=== PATIENT | female | born 1935 | race Hispanic/Latino ===

== ENCOUNTER 2018-02-24 05:24 | Inpatient (IN) | payer MEDICARE ==
--- NOTE | 2018-02-24 05:48 | C.PDOC ---
History Of Present Illness Patient presents to the ER after patient fell while her daughter was changing her diaper. Patient states she slid onto the floor but notes she fell a few days ago at home and sustained numerous bruises. Denies LOC or headache. <Jaren Nation - Last Filed: 02/24/18 06:35> - HPI History Per: Patient History/Exam Limitations: no limitations Onset/Duration Of Symptoms: Hrs Injury Occurred (Timing): Just Before Arrival Location Of Injury: Right: Face, Thigh, Left: Arm, Buttock, Shoulder, Thigh Severity: Moderate Pain Scale Rating Of: 4 Recent travel outside of the [place]: No Additional History Per: Patient, Family - Fall Fall:Prior To Injury: Other (Slid onto floor) <Jaren Nation - Last Filed: 02/24/18 06:35> <Bryant Moran M - Last Filed: 02/24/18 09:48> - HPI Time Seen by Provider: 02/24/18 05:48 Chief Complaint (Nursing): Trauma Past Medical History Reviewed: Historical Data, Nursing Documentation, Vital Signs Vital Signs: Last Vital Signs Temp 97.9 F 02/24/18 05:36 Pulse 97 H 02/24/18 05:36 Resp 18 02/24/18 05:36 BP 134/93 H 02/24/18 05:36 Pulse Ox 86 L 02/24/18 05:36 Family History: States: No Known Family Hx - Social History Hx Alcohol Use: No Hx Substance Use: No - Immunization History Hx Tetanus Toxoid Vaccination: No Hx Influenza Vaccination: No Hx Pneumococcal Vaccination: No <Jaren Nation - Last Filed: 02/24/18 06:35> Vital Signs: Last Vital Signs Temp 97.9 F 02/24/18 05:36 Pulse 96 H 02/24/18 08:13 Resp 24 02/24/18 08:16 BP 138/98 H 02/24/18 08:13 Pulse Ox 98 02/24/18 08:16 <Bryant Moran M - Last Filed: 02/24/18 09:48> Review Of Systems Constitutional: Negative for: Fever, Chills Cardiovascular: Negative for: Chest Pain, Palpitations Respiratory: Negative for: Cough, Shortness of Breath Gastrointestinal: Negative for: Nausea, Vomiting Skin: Positive for: Bruising Neurological: Negative for: Weakness, Numbness <ChapisJaren - Last Filed: 02/24/18 06:35> Physical Exam - Physical Exam Appears: Non-toxic Skin: Warm, Dry, Ecchymosis (Healing over right eye, left shoulder, left buttock, skin break down under left breast) Head: Normacephalic Eye(s): bilateral: Normal Inspection Ear(s): Bilateral: Normal Nose: No Discharge Oral Mucosa: Moist Neck: Trachea Midline, No Midline Cervical Tenderness, No Paracervical Tenderness, Supple Chest: Symmetrical, No Tenderness Cardiovascular: Rhythm Regular Respiratory: Decreased Breath Sounds (mild), No Rales, Rhonchi, No Wheezing Gastrointestinal/Abdominal: Soft, No Tenderness Back: CVA Tenderness, Other Extremity: Pedal Edema (Bilateral), No Deformity, Other (Rashes over bilateral thigh) Extremity: Bilateral: Normal ROM Pulses: Left Dorsalis Pedis: Normal, Right Dorsalis Pedis: Normal Neurological/Psych: Oriented x3 Gait: Unable To Assess <ChapisJaren - Last Filed: 02/24/18 06:35> ED Course And Treatment - Laboratory Results Result Diagrams: 02/24/18 06:16 O2 Sat by Pulse Oximetry: 86 Progress Note: CT cervical spine, CT head, CT orbits/facials, EKG, blood work, and urinalysis ordered. <ChapisJaren - Last Filed: 02/24/18 06:35> - Laboratory Results Result Diagrams: 02/24/18 06:16 02/24/18 06:16 <Bryant Moran M - Last Filed: 02/24/18 09:48> Disposition Counseled Patient/Family Regarding: Studies Performed, Diagnosis - Disposition Disposition Time: 05:48 - POA Present On Arrival: Falls Or Trauma <Jaren Nation - Last Filed: 02/24/18 06:35> Discussed With : Robyn Brewer Doctor Will See Patient In The: Hospital - Disposition Disposition Time: 09:47 <Bryant Moran - Last Filed: 02/24/18 09:48> - Disposition Referrals: Ronald Shah DPM [Primary Care Provider] - Disposition: HOSPITALIZED Condition: FAIR Forms: [email or web address] (Bengali) - Clinical Impression Clinical Impression: Fall, Shoulder dislocation, Vertebral fracture, CHF (congestive heart failure) Critical Care Time - Scribe Statement The provider has reviewed the documentation as recorded by the Scribe Gagandeep White All medical record entries made by the Scribe were at my direction and personally dictated by me. I have reviewed the chart and agree that the record accurately reflects my personal performance of the history, physical exam, medic al decision making, and the department course for this patient. I have also personally directed, reviewed, and agree with the discharge instructions and disposition. <Jaren Nation - Last Filed: 02/24/18 06:35> Physician Patient Turnover Patient Signed Over To: Bryant oMran Handoff Comments: pending ct , labs, and dispo <Jaren Nation - Last Filed: 02/24/18 06:35> Addendum Addendum: 02/24/18 09:45 Received patient in s/o pending imaging. attempted to relocate left shoulder with success however shoulder isn't stable and dislocation recurs. consult Dr. Zoila Singleton for shoulder and vertebral fx. Dr. Wandy Brewer notified julio c and latia given patient admitted to telemetry <Bryant Moran - Last Filed: 02/24/18 09:48>
[2018-02-24 06:28] LABS: BASO % 0.3 % (0.0-2.0); EOS % 0.1 % (0.0-4.0); LYMPH # 1.2 K/uL (1.0-4.3); LYMPH % 9.4 % (20.0-40.0); MEAN CELL VOLUME 77.1 fL (81.0-99.0); MEAN CORPUSCULAR HEMOGLOBIN 23.2 pg (27.0-31.0); MEAN CORPUSCULAR HGB CONC 30.1 g/dL (33.0-37.0); MEAN PLATELET VOLUME 8.8 fL (7.2-11.7); MONO # 0.8 K/uL (0.0-0.8); MONO % 5.9 % (0.0-10.0); NEUT % 84.3 % (50.0-75.0); PLATELET COUNT 224 K/uL (130-400); RBC 5.19 Mil/uL (3.80-5.20); RED CELL DISTRIBUTION WIDTH 24.4 % (11.5-14.5); WHITE BLOOD COUNT 13.1 K/uL (4.8-10.8)
[2018-02-24 06:29] LABS: ALBUMIN 2.9 g/dL (3.5-5.0); ALT/SGPT 18 U/L (9-52); AST/SGOT 47 U/L (14-36); BLOOD UREA NITROGEN 32 mg/dL (7-17); CALCIUM 8.5 mg/dl (8.6-10.4); GFR NON-AFRICAN AMERICAN > 60
[2018-02-24] MEDS ORDERED: Iodixanol 320 MG/ML 100 ML BOTTLE IV ONE (06:55)
[2018-02-24 07:25] LABS: INR 1.5; PROTHROMBIN TIME 16.5 SECONDS (9.7-12.2)
[2018-02-24 08:22] LABS: SQUAMOUS EPITHIAL 2 /hpf (0-5); URINE BACTERIA MANY (<OCC); URINE BILIRUBIN NEGATIVE (NEGATIVE); URINE BLOOD 2+ (NEGATIVE); URINE CLARITY Clear (Clear); URINE COLOR Amber (YELLOW); URINE GLUCOSE (UA) NORMAL (Normal); URINE LEUKOCYTE ESTERASE NEG Leu/uL (Negative); URINE PROTEIN 2+ mg/dL (NEGATIVE)
[2018-02-24 08:42] LABS: B-TYPE NATRIURETIC PEPTIDE 4450 pg/mL (0-900)
[2018-02-24 09:04] LABS: ANISOCYTOSIS MODERATE; LYMPHOCYTE 4 % (20-40); MONOCYTE 1 % (0-10); NEUTROPHIL 95 % (50-75); NUCLEATED RED BLOOD CELL 1 % (0-0); PLATELET ESTIMATE NORMAL (NORMAL); TOTAL CELLS COUNTED 100
[2018-02-24 09:05] LABS: HYPOCHROMIC SLIGHT; OVALOCYTES SLIGHT; POLYCHROMIC SLIGHT
[2018-02-24 09:06] LABS: TARGET CELLS SLIGHT
[2018-02-24] MEDS ORDERED: Potassium Chloride 20 mEq ER Tab PO STA (09:25)
[2018-02-24] MEDS ORDERED: Potassium Chloride 20 mEq ER Tab PO ONE (09:36)
--- NOTE | 2018-02-24 10:47 | CT ---
Date of service: 02/24/2018 PROCEDURE: CT Chest, Abdomen and Pelvis with intravenous contrast HISTORY: fall COMPARISON: None available. TECHNIQUE: Helical CT of the chest, abdomen and pelvis was performed following dynamic intravenous contrast administration. Oral contrast was not administered as per request. IV dose administered: Omnipaque 300, 100 Radiation dose: Total exam DLP = 185.18 mGy-cm. This CT exam was performed using one or more of the following dose reduction techniques: Automated exposure control, adjustment of the mA and/or kV according to patient size, and/or use of iterative reconstruction technique. FINDINGS: CT CHEST WITH CONTRAST: LUNGS: There is relatively extensive compression atelectasis affecting the right lower and left upper lobes with the left lower lobe grossly affected. Limited compression atelectasis affects the right upper lobe. No masses appreciated within aerated lung with central airways grossly appearing clear. MEDIASTINUM: There is mild dilatation of the ascending thoracic aorta terminating at the mid arch. Measures 4.1 cm at the ascending segment without atherosclerotic plaque associated grossly. Normal appearing pulmonary arterial trunk. No aortic dissection. Pulmonary vascular congestion in question however. Extensive coronary artery atherosclerosis appreciated, calcified and there is cardiomegaly but no pericardial effusion identified. Thoracic inlet appears unremarkable. LYMPH NODES: Unremarkable. PLEURA: Large bilateral pleural effusions are identified, left greater than right. No pneumothorax bilaterally. BONES: T7 fracture, nondisplaced. Extensive multilevel spondylosis include diffuse syndesmotic fights suspicious for possible DISH or ankylosing spondylitis. Incidental anterior inferior dislocation of the left humeral head relative to glenoid process of the scapula. No left shoulder fracture appreciable however. OTHER FINDINGS: Mild anasarca suggested. CT ABDOMEN AND PELVIS: LIVER: Unremarkable. No gross lesion or ductal dilatation. GALLBLADDER AND BILE DUCTS: Extensive cholelithiasis is identified within a distended gallbladder. No obvious pattern of acute cholecystitis nevertheless. PANCREAS: There is a 1.2 cm cystic lesion abutting the distal pancreatic duct or there is dilatation of the distal pancreatic duct. SPLEEN: No posttraumatic changes.. ADRENALS: Unremarkable. No mass. KIDNEYS AND URETERS: No obstructive uropathy or renal fracture appreciable. Nonspecific streaky perinephric changes are identified bilaterally. VASCULATURE: Nonaneurysmal abdominal aortic calcific atherosclerotic changes are identified. 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 BOWEL: Sigmoid diverticulosis without diverticulitis.. No obstruction. No gross mural thickening. APPENDIX: Normal appendix. PERITONEUM: Mild umbilical hernia containing only fat. No ascites. No free intrarenal gas or abscess appreciable. No hemoperitoneum. LYMPH NODES: Unremarkable. No enlarged lymph nodes. BLADDER: Unremarkable. REPRODUCTIVE: 1.5 cm left adnexal cyst BONES: No acute fracture. OTHER FINDINGS: None. IMPRESSION: 1. T7 thoracic vertebral body fracture without displacement. No additional fracture throughout the thorax. 2. Anterior inferior dislocation left humeral head relative to the glenoid process at the left shoulder. 3. Extensive bilateral pleural effusions and compression atelectasis at the bilateral lungs with well aerated lung appearing normal. No central airway lesion appreciated grossly. 4. Dilatation of the ascending thoracic aorta up to 4.1 cm. 5. No definitive posttraumatic changes in the abdomen and pelvis. 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 7. Extensive cholelithiasis without pattern of acute cholecystitis. 8. 1.2 cm cyst or pancreatic duct dilatation at the head of the pancreas. Consider follow-up MRCP/abdomen MRI with and without contrast for added characterization. 9. Additional lesser changes as discussed above. Concordant preliminary report from [facility], 02/24/2018.
--- NOTE | 2018-02-24 10:59 | CT ---
Date of service: 02/24/2018 PROCEDURE: CT Cervical Spine without contrast HISTORY: fall COMPARISON: None available. TECHNIQUE: Axial computed tomography images were obtained of the cervical spine without the use of intravenous contrast. Coronal and sagittal reformatted images were created and reviewed. Radiation dose: Total exam DLP = 1444.08 mGy-cm. This CT exam was performed using one or more of the following dose reduction techniques: Automated exposure control, adjustment of the mA and/or kV according to patient size, and/or use of iterative reconstruction technique. FINDINGS: VERTEBRAE: No fracture. Normal alignment. No destructive bony lesion. DISCS/SPINAL CANAL/NEURAL FORAMINA: There is extensive multilevel facet joint degenerative arthropathy as well as facet joint degeneration. No destructive bony lesion is appreciated focally. At C2-3, there is no stenosis. At C3-4, extensive facet and uncovertebral joint degenerative arthropathy is encountered with an irregular disc osteophyte complex which is left paracentral/lateral in location. This results in mild left nyla canal stenosis and severe bilateral neural foraminal stenosis. At C4-5, left lateral recess is encroached by osteophytes without generalized central canal stenosis present. Severe left and moderate to severe right degenerative neural foraminal stenoses are identified. At C5-6, a circumferential disc osteophyte complex identified resulting in mild central stenosis with severe bilateral degenerative neural foraminal stenoses identified. At C6-7, a disc osteophyte complex results in borderline central stenosis with severe left and moderate to severe right neural foraminal stenosis appreciated on degenerative basis. C7-T1 appears unremarkable. No gross disc herniation appreciable throughout. PARASPINAL SOFT TISSUES: Unremarkable. OTHER FINDINGS: None. IMPRESSION: 1. No fracture or spondylolisthesis is encountered throughout the cervical spine. 2. No gross disc herniation appreciable however MRI is more sensitive and can be utilized for added characterization. 3. Limited multilevel cyst cervical spondylosis resulting in at most mild left nyla canal stenosis at C3-4 and borderline C6-7 central stenosis. Concordant preliminary report from [facility], 02/24/2018. 4. Advanced multilevel facet and uncovertebral joint arthropathy resulting in nearly diffuse high-grade neural foraminal stenoses from C3-4 to C6-7 as discussed above.
--- NOTE | 2018-02-24 11:14 | CT ---
Date of service: 02/24/2018 PROCEDURE: CT MAXILLOFACIAL BONES WITHOUT CONTRAST HISTORY: fall COMPARISON: None available. TECHNIQUE: Contiguous axial CT images of the maxillofacial bones were obtained. Coronal and sagittal reformats were generated. Radiation dose: Total exam DLP = 854.56 mGy-cm. This CT exam was performed using one or more of the following dose reduction techniques: Automated exposure control, adjustment of the mA and/or kV according to patient size, and/or use of iterative reconstruction technique. FINDINGS: NASAL BONES: Unremarkable. ORBITS: Unremarkable. PARANASAL SINUSES/ MASTOIDS: Small bilateral maxillary sinus polyps or cysts identified. MAXILLA: Unremarkable. MANDIBLE/ TEMPOROMANDIBULAR JOINTS: Unremarkable. SKULL BASE: Unremarkable. TEMPORAL BONES: Middle ears and mastoid grossly unremarkable. OTHER FINDINGS: Limited right frontal scalp edema/hematoma identified. No frontal bone fracture associated. IMPRESSION: Limited right frontal scalp edema/hematoma. No additional posttraumatic findings. Concordant preliminary report from [facility], 02/24/2018.
--- NOTE | 2018-02-24 11:17 | CT ---
Date of service: 02/24/2018 PROCEDURE: CT HEAD WITHOUT CONTRAST. HISTORY: R/O Bleed COMPARISON: None available. TECHNIQUE: Axial computed tomography images were obtained through the head/brain without intravenous contrast. Radiation dose: Total exam DLP = 1352.60 mGy-cm. This CT exam was performed using one or more of the following dose reduction techniques: Automated exposure control, adjustment of the mA and/or kV according to patient size, and/or use of iterative reconstruction technique. FINDINGS: HEMORRHAGE: No intracranial hemorrhage. BRAIN: An indeterminate lucency body of the right caudate lobe. Potential chronic lacune. Otherwise, good corticomedullary differentiation is seen. Proportional, diffuse expansion of the ventriculosulcal and cisternal spaces is appreciated with white matter lucency compatible with diffuse cerebral atrophy and chronic microangiopathy. No suspicious extra-axial fluid collection is identified and the midline brain anatomy appears grossly nonfocal as imaged. There is no mass effect throughout. VENTRICLES: Unremarkable. No hydrocephalus. CALVARIUM: No destructive bony lesion or displaced fracture identified including through the skullbase. Right frontal scalp edema/hematoma. PARANASAL SINUSES: Bilateral maxillary sinus polyps or cysts. MASTOID AIR CELLS: Unremarkable as visualized. No inflammatory changes. OTHER FINDINGS: None. IMPRESSION: 1. No intra hemorrhage or displaced fracture appreciable. 2. Lucency right caudate body potentially reflecting a chronic lacune. Age-appropriate age related neuro degenerative findings are appreciated throughout the brain otherwise. 3. Right frontal scalp edema/hematoma. Concordant preliminary report from [facility], 02/24/2018.
--- NOTE | 2018-02-24 13:26 | CP.PCM.HP ---
History of Present Illness - History of Present Illness History of Present Illness: pt brought to ed after fall at home weeke dificulty ambulating recurentfalls Present on Admission - Present on Admission Any Indicators Present on Admission: No Review of Systems - Review of Systems Systems not reviewed;Unavailable: Acuity of Condition - Constitutional Constitutional: Fatigue, Frequent Falls - EENT Eyes: As Per HPI Ears: As Per HPI Nose/Mouth/Throat: As Per HPI - Breasts Breasts: As Per HPI - Cardiovascular Cardiovascular: Leg Edema, Pedal Edema - Respiratory Respiratory: Dyspnea on Exertion - Gastrointestinal Gastrointestinal: As Per HPI - Genitourinary Genitourinary: As Per HPI - Reproductive: Female Reproductive:Female: As Per HPI - Menstruation Menstruation: As Per HPI - Musculoskeletal Musculoskeletal: Arthralgias, Back Pain Additional comments: shoulder dislocation - Integumentary Integumentary: Skin Ulcer Additional comments: multiple bruses - Neurological Neurological: As Per HPI - Psychiatric Psychiatric: As Per HPI - Endocrine Endocrine: Fatigue - Hematologic/Lymphatic Hematologic: As Per HPI Past Patient History - Infectious Disease Hx of Infectious Diseases: None - Past Social History Smoking Status: Never Smoked - MUSCULOSKELETAL/RHEUMATOLOGICAL Hx Falls: Yes - PSYCHIATRIC Hx Substance Use: No - SURGICAL HISTORY Hx Surgeries: No - ANESTHESIA Hx Anesthesia: Yes Meds Allergies/Adverse Reactions: Allergies Allergy/AdvReac Type Severity Reaction Status Date / Time warfarin [From Coumadin] Allergy Verified 02/24/18 05:44 Physical Exam - Constitutional Appears: In Acute Distress - Head Exam Head Exam: ATRAUMATIC - Eye Exam Eye Exam: Normal appearance Pupil Exam: NORMAL ACCOMODATION - ENT Exam ENT Exam: Mucous Membranes Moist - Neck Exam Neck exam: Positive for: Full Rom - Respiratory Exam Respiratory Exam: Decreased Breath Sounds - Cardiovascular Exam Cardiovascular Exam: +S1, +S2, +S4 - GI/Abdominal Exam GI & Abdominal Exam: Normal Bowel Sounds - Rectal Exam Rectal Exam: Deferred - Extremities Exam Additional comments: shoulder dislocation - Back Exam Back exam: tenderness - Neurological Exam Neurological exam: Alert - Psychiatric Exam Psychiatric exam: Flat Affect - Skin Skin Exam: Normal Color Results - Vital Signs Recent Vital Signs: Last Vital Signs Temp 97.9 F 02/24/18 05:36 Pulse 94 H 02/24/18 11:40 Resp 24 02/24/18 11:40 BP 93/63 L 02/24/18 11:40 Pulse Ox 92 L 11/21/18 11:40 - Labs Result Diagrams: 02/24/18 06:16 02/24/18 06:16 Labs: Laboratory Results - last 24 hr 02/24/18 02/24/18 02/24/18 05:32 06:16 06:16 WBC 13.1 H RBC 5.19 Hgb 12.0 Hct 40.0 MCV 77.1 L MCH 23.2 L MCHC 30.1 L RDW 24.4 H Plt Count 224 MPV 8.8 Neut % (Auto) 84.3 H Lymph % (Auto) 9.4 L Gr[place]gs % (Auto) 5.9 Eos % (Auto) 0.1 Baso % (Auto) 0.3 Neut # (Auto) 11.0 H Lymph # (Auto) 1.2 [place] # (Auto) 0.8 Eos # (Auto) 0.0 Baso # (Auto) 0.0 Neutrophils % (Manual) 95 H Lymphocytes % (Manual) 4 L Monocytes % (Manual) 1 Nucleated RBC % 1 H Platelet Estimate Normal Polychromasia Slight Hypochromasia (manual) Slight Anisocytosis (manual) Moderate Target Cells Slight Ovalocytes Slight PT 16.5 H INR 1.5 APTT 33 Sodium Potassium Chloride Carbon Dioxide Anion Gap BUN Creatinine Est GFR ( Amer) Est GFR (Non-Af Amer) POC Glucose (mg/dL) 117 H Random Glucose Calcium Total Bilirubin AST ALT Alkaline Phosphatase Total Creatine Kinase Troponin I NT-Pro-B Natriuret Pep Total Protein Albumin Globulin Albumin/Globulin Ratio TSH 3rd Generation Urine Color Urine Clarity Urine pH Ur Specific [place] Urine Protein Urine Glucose (UA) Urine Ketones Urine Blood Urine Nitrate Urine Bilirubin Urine Urobilinogen Ur Leukocyte Esterase Urine WBC (Auto) Urine RBC (Auto) Ur Squamous Epith Cells Urine Bacteria 02/24/18 02/24/18 06:16 08:11 WBC RBC Hgb Hct MCV MCH MCHC RDW Plt Count MPV Neut % (Auto) Lymph % (Auto) [place] % (Auto) Eos % (Auto) Baso % (Auto) Neut # (Auto) Lymph # (Auto) [place] # (Auto) Eos # (Auto) Baso # (Auto) Neutrophils % (Manual) Lymphocytes % (Manual) Monocytes % (Manual) Nucleated RBC % Platelet Estimate Polychromasia Hypochromasia (manual) Anisocytosis (manual) Target Cells Ovalocytes PT INR APTT Sodium 142 Potassium 3.1 L Chloride 103 Carbon Dioxide 30 Anion Gap 12 BUN 32 H Creatinine 0.8 Est GFR ( Amer) > 60 Est GFR (Non-Af Amer) > 60 POC Glucose (mg/dL) Random Glucose 120 H Calcium 8.5 L Total Bilirubin 2.8 H AST 47 H ALT 18 Alkaline Phosphatase 62 Total Creatine Kinase 486 H Troponin I 0.0200 NT-Pro-B Natriuret Pep 4450 H Total Protein 5.9 L Albumin 2.9 L Globulin 3.0 Albumin/Globulin Ratio 1.0 TSH 3rd Generation 2.58 Urine Color Bertha Urine Clarity Clear Urine pH 5.0 Ur Specific [place] 1.024 Urine Protein 2+ H Urine Glucose (UA) Normal Urine Ketones Negative Urine Blood 2+ H Urine Nitrate Negative Urine Bilirubin Negative Urine Urobilinogen 4.0 H Ur Leukocyte Esterase Neg Urine WBC (Auto) 1 Urine RBC (Auto) 1 Ur Squamous Epith Cells 2 Urine Bacteria Many H Assessment & Plan - Assessment and Plan (Free Text) Assessment: recurent falls shoulder dislocation chf obesity Plan: admit ortho consult cardiology cons - Date & Time Date: 02/24/18 Time: 13:32
[2018-02-24] MEDS ORDERED: Albuterol-Ipratrop 3 mg / 0.5 (3 ml) UD INH STA (17:31)
--- NOTE | 2018-02-24 18:48 | CP.PCM.CON ---
History of Present Illness - History of Present Illness History of Present Illness: Podiatry Progress Note for Dr. Shah 82F seen in ED with Dr. Shah for b/l venous stasis ulceration to LE. Patient fell at home prompting her visit to ED. She is accompanied by her daughter. She denies any new pedal complaints at this time and sees Dr. Shah regularly in his office. Denies any recent N/V/F/C/CP/SOB/D Review of Systems - Review of Systems All systems: reviewed and no additional remarkable complaints except Review of Systems: as per HPI Past Patient History - Infectious Disease Hx of Infectious Diseases: None - Past Social History Smoking Status: Never Smoked - MUSCULOSKELETAL/RHEUMATOLOGICAL Hx Falls: Yes - PSYCHIATRIC Hx Substance Use: No - SURGICAL HISTORY Hx Surgeries: No - ANESTHESIA Hx Anesthesia: Yes Meds Allergies/Adverse Reactions: Allergies Allergy/AdvReac Type Severity Reaction Status Date / Time warfarin [From Coumadin] Allergy Verified 02/24/18 05:44 - Medications Medications: Current Medications Acetaminophen (Tylenol 325mg Tab) 650 mg PO Q6 PRN PRN Reason: Pain, moderate (4-7) Albuterol/Ipratropium (Duoneb 3 Mg/0.5 Mg (3 Ml) Ud) 3 ml INH RQ6 KEV Furosemide (Lasix) 20 mg IVP DAILY KEV Pantoprazole Sodium (Protonix Ec Tab) 40 mg PO DAILY KEV Potassium Chloride (Klor-Con 10) 10 meq PO BRK KEV Physical Exam - Constitutional Appears: Non-toxic, In Acute Distress - Extremities Exam Additional comments: Dressings to b/l LE left intact - Neurological Exam Neurological exam: Alert, Oriented x3 - Psychiatric Exam Psychiatric exam: Agitated, Anxious Results - Vital Signs Recent Vital Signs: Last Vital Signs Temp 97.4 F L 02/24/18 16:00 Pulse 91 H 02/24/18 16:00 Resp 20 02/24/18 16:00 BP 106/78 02/24/18 16:00 Pulse Ox 94 L 02/24/18 16:00 - Labs Result Diagrams: 02/24/18 06:16 02/24/18 06:16 Labs: Laboratory Results - last 24 hr 02/24/18 02/24/18 02/24/18 05:32 06:16 06:16 WBC 13.1 H RBC 5.19 Hgb 12.0 Hct 40.0 MCV 77.1 L MCH 23.2 L MCHC 30.1 L RDW 24.4 H Plt Count 224 MPV 8.8 Neut % (Auto) 84.3 H Lymph % (Auto) 9.4 L [place] % (Auto) 5.9 Eos % (Auto) 0.1 Baso % (Auto) 0.3 Neut # (Auto) 11.0 H Lymph # (Auto) 1.2 [place] # (Auto) 0.8 Eos # (Auto) 0.0 Baso # (Auto) 0.0 Neutrophils % (Manual) 95 H Lymphocytes % (Manual) 4 L Monocytes % (Manual) 1 Nucleated RBC % 1 H Platelet Estimate Normal Polychromasia Slight Hypochromasia (manual) Slight Anisocytosis (manual) Moderate Target Cells Slight Ovalocytes Slight PT 16.5 H INR 1.5 APTT 33 Sodium Potassium Chloride Carbon Dioxide Anion Gap BUN Creatinine Est GFR ( Amer) Est GFR (Non-Af Amer) POC Glucose (mg/dL) 117 H Random Glucose Calcium Total Bilirubin AST ALT Alkaline Phosphatase Total Creatine Kinase Troponin I NT-Pro-B Natriuret Pep Total Protein Albumin Globulin Albumin/Globulin Ratio TSH 3rd Generation Urine Color Urine Clarity Urine pH Ur Specific [place] Urine Protein Urine Glucose (UA) Urine Ketones Urine Blood Urine Nitrate Urine Bilirubin Urine Urobilinogen Ur Leukocyte Esterase Urine WBC (Auto) Urine RBC (Auto) Ur Squamous Epith Cells Urine Bacteria 02/24/18 02/24/18 06:16 08:11 WBC RBC Hgb Hct MCV MCH MCHC RDW Plt Count MPV Neut % (Auto) Lymph % (Auto) [place] % (Auto) Eos % (Auto) Baso % (Auto) Neut # (Auto) Lymph # (Auto) [place] # (Auto) Eos # (Auto) Baso # (Auto) Neutrophils % (Manual) Lymphocytes % (Manual) Monocytes % (Manual) Nucleated RBC % Platelet Estimate Polychromasia Hypochromasia (manual) Anisocytosis (manual) Target Cells Ovalocytes PT INR APTT Sodium 142 Potassium 3.1 L Chloride 103 Carbon Dioxide 30 Anion Gap 12 BUN 32 H Creatinine 0.8 Est GFR ( Amer) > 60 Est GFR (Non-Af Amer) > 60 POC Glucose (mg/dL) Random Glucose 120 H Calcium 8.5 L Total Bilirubin 2.8 H AST 47 H ALT 18 Alkaline Phosphatase 62 Total Creatine Kinase 486 H Troponin I 0.0200 NT-Pro-B Natriuret Pep 4450 H Total Protein 5.9 L Albumin 2.9 L Globulin 3.0 Albumin/Globulin Ratio 1.0 TSH 3rd Generation 2.58 Urine Color Bertha Urine Clarity Clear Urine pH 5.0 Ur Specific [place] 1.024 Urine Protein 2+ H Urine Glucose (UA) Normal Urine Ketones Negative Urine Blood 2+ H Urine Nitrate Negative Urine Bilirubin Negative Urine Urobilinogen 4.0 H Ur Leukocyte Esterase Neg Urine WBC (Auto) 1 Urine RBC (Auto) 1 Ur Squamous Epith Cells 2 Urine Bacteria Many H Assessment & Plan - Assessment and Plan (Free Text) Assessment: 82F seen in ED with Dr. Shah for b/l venous stasis ulceration to LE Plan: Patient seen and evaluated with Dr. Shah WBC 13.1, Afebrile Dressings left C/D/I No plan for surgical intervention at this time Podiatry will continue to follow while patient in house - Date & Time Date: 02/24/18 Time: 18:50
--- NOTE | 2018-02-24 19:30 | CP.PCM.CON ---
History of Present Illness - History of Present Illness History of Present Illness: 82-year-old female presented to the ER after patient fell while her daughter was changing her diaper. Patient states she slid onto the floor but notes she fell a few days ago at home and sustained numerous bruises. patient found to have dislocated left shoulder. CAT scan of the chest consistent with bilateral pleural effusion. Patient being treated with Lasix. Unable to get more information from patient or chart review. Swelling of left arm with weeping noted. as per daughter her lower extremity swelling is chronic and she is being treated for that. Past Patient History - Infectious Disease Hx of Infectious Diseases: None - Past Social History Smoking Status: Never Smoked - MUSCULOSKELETAL/RHEUMATOLOGICAL Hx Falls: Yes - PSYCHIATRIC Hx Substance Use: No - SURGICAL HISTORY Hx Surgeries: No - ANESTHESIA Hx Anesthesia: Yes Meds Allergies/Adverse Reactions: Allergies Allergy/AdvReac Type Severity Reaction Status Date / Time warfarin [From Coumadin] Allergy Verified 02/24/18 05:44 - Medications Medications: Current Medications Acetaminophen (Tylenol 325mg Tab) 650 mg PO Q6 PRN PRN Reason: Pain, moderate (4-7) Albuterol/Ipratropium (Duoneb 3 Mg/0.5 Mg (3 Ml) Ud) 3 ml INH RQ6 KEV Furosemide (Lasix) 20 mg IVP DAILY KEV Pantoprazole Sodium (Protonix Ec Tab) 40 mg PO DAILY KEV Potassium Chloride (Klor-Con 10) 10 meq PO BRK KEV Physical Exam - Head Exam Head Exam: NORMOCEPHALIC - Neck Exam Neck exam: Positive for: Normal Inspection - Respiratory Exam Respiratory Exam: Decreased Breath Sounds - Cardiovascular Exam Cardiovascular Exam: REGULAR RHYTHM, Systolic Murmur - Extremities Exam Extremities exam: Positive for: pedal edema - Neurological Exam Neurological exam: Alert, Oriented x3 Results - Vital Signs Recent Vital Signs: Last Vital Signs Temp 97.4 F L 02/24/18 16:00 Pulse 91 H 02/24/18 16:00 Resp 20 02/24/18 16:00 BP 106/78 02/24/18 16:00 Pulse Ox 94 L 02/24/18 16:00 - Labs Result Diagrams: 02/26/18 06:23 02/26/18 06:22 Labs: Laboratory Results - last 24 hr 02/24/18 02/24/18 02/24/18 05:32 06:16 06:16 WBC 13.1 H RBC 5.19 Hgb 12.0 Hct 40.0 MCV 77.1 L MCH 23.2 L MCHC 30.1 L RDW 24.4 H Plt Count 224 MPV 8.8 Neut % (Auto) 84.3 H Lymph % (Auto) 9.4 L [place] % (Auto) 5.9 Eos % (Auto) 0.1 Baso % (Auto) 0.3 Neut # (Auto) 11.0 H Lymph # (Auto) 1.2 [place] # (Auto) 0.8 Eos # (Auto) 0.0 Baso # (Auto) 0.0 Neutrophils % (Manual) 95 H Lymphocytes % (Manual) 4 L Monocytes % (Manual) 1 Nucleated RBC % 1 H Platelet Estimate Normal Polychromasia Slight Hypochromasia (manual) Slight Anisocytosis (manual) Moderate Target Cells Slight Ovalocytes Slight PT 16.5 H INR 1.5 APTT 33 Sodium Potassium Chloride Carbon Dioxide Anion Gap BUN Creatinine Est GFR ( Amer) Est GFR (Non-Af Amer) POC Glucose (mg/dL) 117 H Random Glucose Calcium Total Bilirubin AST ALT Alkaline Phosphatase Total Creatine Kinase Troponin I NT-Pro-B Natriuret Pep Total Protein Albumin Globulin Albumin/Globulin Ratio TSH 3rd Generation Urine Color Urine Clarity Urine pH Ur Specific [place] Urine Protein Urine Glucose (UA) Urine Ketones Urine Blood Urine Nitrate Urine Bilirubin Urine Urobilinogen Ur Leukocyte Esterase Urine WBC (Auto) Urine RBC (Auto) Ur Squamous Epith Cells Urine Bacteria 02/24/18 02/24/18 06:16 08:11 WBC RBC Hgb Hct MCV MCH MCHC RDW Plt Count MPV Neut % (Auto) Lymph % (Auto) [place] % (Auto) Eos % (Auto) Baso % (Auto) Neut # (Auto) Lymph # (Auto) [place] # (Auto) Eos # (Auto) Baso # (Auto) Neutrophils % (Manual) Lymphocytes % (Manual) Monocytes % (Manual) Nucleated RBC % Platelet Estimate Polychromasia Hypochromasia (manual) Anisocytosis (manual) Target Cells Ovalocytes PT INR APTT Sodium 142 Potassium 3.1 L Chloride 103 Carbon Dioxide 30 Anion Gap 12 BUN 32 H Creatinine 0.8 Est GFR ( Amer) > 60 Est GFR (Non-Af Amer) > 60 POC Glucose (mg/dL) Random Glucose 120 H Calcium 8.5 L Total Bilirubin 2.8 H AST 47 H ALT 18 Alkaline Phosphatase 62 Total Creatine Kinase 486 H Troponin I 0.0200 NT-Pro-B Natriuret Pep 4450 H Total Protein 5.9 L Albumin 2.9 L Globulin 3.0 Albumin/Globulin Ratio 1.0 TSH 3rd Generation 2.58 Urine Color Bertha Urine Clarity Clear Urine pH 5.0 Ur Specific [place] 1.024 Urine Protein 2+ H Urine Glucose (UA) Normal Urine Ketones Negative Urine Blood 2+ H Urine Nitrate Negative Urine Bilirubin Negative Urine Urobilinogen 4.0 H Ur Leukocyte Esterase Neg Urine WBC (Auto) 1 Urine RBC (Auto) 1 Ur Squamous Epith Cells 2 Urine Bacteria Many H Assessment & Plan (1) CHF (congestive heart failure) Assessment and Plan: Diuresis. CXR. Correct electrolyte abnormalities. Keep K>4 and Mg>2. Fluid restriction to 1 l/day. Echocardogram. Discussed with family. Status: Acute
[2018-02-24] MEDS: Albuterol-Ipratrop 3 mg / 0.5 (3 ml) UD INH SCH (19:31)
[2018-02-24] MEDS: Potassium Chloride 10 mEq ER Tab PO SCH (21:43)
[2018-02-24] MEDS ORDERED: Pneumococcal 23-Valent Vaccine IM ONE (22:54)
--- NOTE | 2018-02-24 22:56 | CARD ---
APPROVED REPORT Date of service: 02/24/2018 EXAM: Two-dimensional and M-mode echocardiogram with Doppler and color Doppler. Other Information Technically limited study due to body habitus. INDICATION Dyspnea Syncope Congestive Heart Failure 2D DIMENSIONS IVSd1.3 (0.7-1.1cm)Aortic Root (2D)3.6 (2.0-3.7cm) LVDd4.2 (3.9-5.9cm)PWd1.6 (0.7-1.1cm) LVDs3.2 (2.5-4.0cm)FS (%) 23.2 % LVEF (%)50.0 (>50%)LVEF (Park's)50 % M-Mode DIMENSIONS RVDd2.76 (2.1-3.2cm)Left Atrium (MM)3.48 (2.5-4.0cm) IVSd0.82 (0.7-1.1cm)Aortic Root3.16 (2.2-3.7cm) LVDd5.28 (4.0-5.6cm)Aortic Cusp Exc.2.03 (1.5-2.0cm) PWd1.03 (0.7-1.1cm)FS (%) 30 % LVDs3.71 (2.0-3.8cm)TAPSE13.19 cm LVEF (%)56 (>50%) Mitral Valve MV E Sieahnfp18.8cm/sE/A ratio0.0 TDI Lateral E' Peak V12.61cm/sMedial E' Peak V5.77cm/sE/Lateral E'5.6 E/Medial E'12.3 Tricuspid Valve TR Peak [id number]/sTR Peak [id number] LEFT VENTRICLE The left ventricle is normal size. There is mild to moderate concentric left ventricular hypertrophy. The left ventricular function is normal. The left ventricular ejection fraction is within the normal range. There is normal LV segmental wall motion. Transmitral Doppler flow pattern is abnormal. RIGHT VENTRICLE The right ventricle is normal size. ATRIA The left atrium size is normal. The right atrium is mildly dilated. AORTIC VALVE The aortic valve is calcified but opens well. MITRAL VALVE Mitral regurgitation is trace to mild. TRICUSPID VALVE There is moderate to severe tricuspid regurgitation. <Conclusion> Technically limited and difficult study. Normal LV systolic function. Diastolic dysfunction. Calcified Aortic valve. Mild MR. Moderate to severe TR.
[2018-02-25] MEDS: Albuterol-Ipratrop 3 mg / 0.5 (3 ml) UD INH SCH ×4 (02:30→20:34)
[2018-02-25] MEDS ORDERED: Potassium Chloride 10 mEq ER Tab PO SCH (08:00)
[2018-02-25] MEDS ORDERED: Pantoprazole 40 mg EC Tab PO SCH (10:00)
[2018-02-25] MEDS: Potassium Chloride 10 mEq ER Tab PO SCH ×2 (10:00→17:04)
--- NOTE | 2018-02-25 10:02 | CP.PCM.CON ---
History of Present Illness - History of Present Illness History of Present Illness: Reason for consultation: bilateral pleural effusion [id number] female presented to the ER after patient fell while her daughter was changing her diaper. Patient states she slid onto the floor but notes she fell a few days ago at home and sustained numerous bruises. patient found to have dislocated left shoulder. CAT scan of the chest consistent with bilateral pleural effusion. Patient being treated with Lasix. Unable to get more information from patient or chart review. Swelling of left arm with weeping noted Review of Systems - Review of Systems Systems not reviewed;Unavailable: Dementia Past Patient History - Infectious Disease Hx of Infectious Diseases: None - Past Social History Smoking Status: Never Smoked - CARDIAC Hx Congestive Heart Failure: Yes - NEUROLOGICAL Hx Dementia: Yes - ENDOCRINE/METABOLIC Hx Endocrine Disorders: No - HEMATOLOGICAL/ONCOLOGICAL Hx Blood Disorders: No - INTEGUMENTARY Other/Comment: weeping edema, on bilateral lower ext - MUSCULOSKELETAL/RHEUMATOLOGICAL Hx Falls: Yes - GASTROINTESTINAL Hx Gastrointestinal Disorders: No - GENITOURINARY/GYNECOLOGICAL Hx Genitourinary Disorders: No - PSYCHIATRIC Hx Substance Use: No - SURGICAL HISTORY Hx Surgeries: No - ANESTHESIA Hx Anesthesia: Yes Meds Allergies/Adverse Reactions: Allergies Allergy/AdvReac Type Severity Reaction Status Date / Time warfarin [From Coumadin] Allergy Verified 02/24/18 05:44 - Medications Medications: Current Medications Acetaminophen (Tylenol 325mg Tab) 650 mg PO Q6 PRN PRN Reason: Pain, moderate (4-7) Albuterol/Ipratropium (Duoneb 3 Mg/0.5 Mg (3 Ml) Ud) 3 ml INH RQ6 [facility] Last Admin: 02/25/18 07:44 Dose: 3 ml Furosemide (Lasix) 40 mg PO BID [facility] Last Admin: 02/24/18 21:42 Dose: 40 mg Pantoprazole Sodium (Protonix Ec Tab) 40 mg PO DAILY [facility] Pneumococcal Polyvalent Vaccine (Pneumovax 23 Vaccine) 0.5 ml IM .ONCE ONE Stop: 02/26/18 10:01 Potassium Chloride (Klor-Con 10) 10 meq PO BID [facility] Last Admin: 02/24/18 21:43 Dose: 10 meq Physical Exam - Head Exam Head Exam: ATRAUMATIC, NORMOCEPHALIC - Neck Exam Neck exam: Positive for: Normal Inspection - Respiratory Exam Respiratory Exam: Decreased Breath Sounds - Cardiovascular Exam Cardiovascular Exam: REGULAR RHYTHM - GI/Abdominal Exam GI & Abdominal Exam: Normal Bowel Sounds - Extremities Exam Extremities exam: Positive for: pedal edema Results - Vital Signs Recent Vital Signs: Last Vital Signs Temp 98.2 F 02/24/18 23:25 Pulse 94 H 02/24/18 23:25 Resp 20 02/24/18 23:25 BP 113/73 02/24/18 23:25 Pulse Ox 97 02/24/18 23:25 - Labs Result Diagrams: 02/24/18 06:16 02/24/18 06:16 Assessment & Plan (1) Pleural effusion Status: Acute Comment: bilateral equal pleural effusion secondary to CHF/hypo-albuminemia. Continue Lasix. Echocardiogram. ABG. BiPAP if needed
[2018-02-25] MEDS ORDERED: Albuterol-Ipratrop 3 mg / 0.5 (3 ml) UD INH STA (10:11)
[2018-02-25] MEDS ORDERED: MethylPREDNISolone 40 mg Vial IVP STA (10:14)
--- NOTE | 2018-02-25 10:26 | PCM.RRT ---
<Yonatan Mccloud M - Last Filed: 02/25/18 17:50> FLOOR INSPECTOR Nurses Assessment - Situation Date: 02/25/18 Time FLOOR INSPECTOR was called: 10:00 FLOOR INSPECTOR Responder Arrival Time:: 10:01 FLOOR INSPECTOR Location:: T Med/Surg FLOOR INSPECTOR Reason for Call: Respiratory Distress - Neurological Status (Select all that apply): Alert, Verbal - Constitutional Appears: In Acute Distress - Head Head Exam: NORMAL INSPECTION - Respiratory Exam Respiratory Exam: Accessory Muscle Use, Decreased Breath Sounds, Rales - Cardiovascular Exam Cardiovascular Exam: +S1, +S2 - GI/Abdominal Exam GI & Abdominal Exam: Soft, Normal Bowel Sounds - Neurological Exam Neurological Exam: Alert, Awake - Extremities Exam Extremities Exam: Pedal Edema, Tenderness Plan - Assessment of Findings&Treatment Plan FLOOR INSPECTOR called at 10:00 AM. 82 F w/ PMhx of CHF presented to ED s/p fall. FLOOR INSPECTOR called for respiratory distress. Upon arrival patient was laying in bed in acute distress. Vitals: 143/91 HR 147 Temp 100.6 RR 30 O2 Sat 98% on NRB Review patient chart. Based on hx and previous xray, ordered stat xray, CBC, CMP, BNP, REJI, ABG, blood cultures, urine cultures, urineanaylsis. Lactic came back as 4.4, Cxr revealed pulmonary congestion, pleural effusion, w/ previous blood work elevated WBC w/ left shift. Code Sepsis called 1 X 60 mg lasix given Solumedrol 40mg IVP given Duonebs given Placed on Bipap 12/6 Tylenol 650 Suppository Vancomycin 1gm X1 Zosyn 3.375gm X1 given Repeat vitals 133/92 HR 100 temp 100 O2 Sat 95 on NRB Per daughter at bedside, she was power surgical services coordinator, she requested X1 trial of intubation if needed ICU consult placed ICU evaluded, patient need intubation, and thoracentesis Bumex 2mg IVP given Patient transferred to ICU 16 Patient intubated Repeat lactic 1.5. Primary informed of FLOOR INSPECTOR. <Justina Weber V - Last Filed: 02/28/18 21:43> FLOOR INSPECTOR Nurses Assessment - Vital Signs Vital Signs: Rapid Response Vital Sign Blood Pressure 143/91 Pulse Rate 147 Respiratory Rate 30 Temperature 100.6 F Oxygen Saturation 98 - Vital Signs at end of FLOOR INSPECTOR Vital Signs at end of FLOOR INSPECTOR: Rapid Response End Vital Sign Blood Pressure 91/62 Pulse Rate 97 Respiratory Rate 20 Temperature 99 F O2 Sat by Pulse Oximetry 98 Attending/Attestation - Attestation I have personally seen and examined this patient.: Yes I have fully participated in the care of the patient.: Yes I have reviewed all pertinent clinical information, including history, physical exam and plan: Yes Notes (Text): This is late computer entry for 02/24/18. Brief hospitalist note. Patient with history of hypertension (diet controlled), arthritis, has not seen PMD in 3 years came in s/p fall. Patient accompanied by daughter heidi at bedside. FLOOR INSPECTOR called for respiratory distress. Upon arrival patient was laying in bed in acute distress. Vitals: 143/91 HR 147 Temp 100.6 RR 30 O2 Sat 98% on NRB Review patient chart. Based on hx and previous xray, ordered stat xray, CBC, CMP, BNP, REJI, ABG, blood cultures, urine cultures, urineanaylsis. Lactic came back as 4.4, Cxr revealed pulmonary congestion, pleural effusion, w/ previous blood work elevated WBC w/ left shift. Daughter has followed with patient and living will, code status not determined in documentation, as poa would like mom as full code. Patient placed on bipap, lasix, and solumedrol given and given 2 doses of IV abx. Patient's admitting doctor informed at bedside. ICU consult obtained for acute respiratory distress given patient is full code. Case discussed with dr. conrad wihtley who came to evaluate patient and discuss with daughter at bedside. Patient intubated by anesthesia, Dr. Tan i discussed risk with daughter at bedside who allows for intubation given acute respiratory distress. Patient transferred to the ICU for further management. Time: >30 min.
[2018-02-25 10:28] LABS: ABG ALLEN TEST POS; ARTERIAL BLOOD GAS HCO3 25.5 mmol/L (21-28); ARTERIAL BLOOD GAS O2 SAT 99.8 % (95-98); ARTERIAL BLOOD GAS PCO2 40 mm/Hg (35-45); ARTERIAL BLOOD GAS PH 7.41 (7.35-7.45); ARTERIAL BLOOD GAS PO2 214 mm/Hg (80-100); ARTERIAL BLOOD GAS TCO2 26.6 mmol/L (22-28)
[2018-02-25] MEDS ORDERED: Piperacill/Tazo 3.375gm in Dex 3.375 GM/50 ML BAG IVPB STA (10:47)
[2018-02-25] MEDS ORDERED: Vancomycin 1 gm/NS 200 ml 1 GM/200 ML BAG IVPB STA (10:47)
--- NOTE | 2018-02-25 10:49 | RAD ---
Date of service: 02/24/2018 HISTORY: chf COMPARISON: Comparison is made with prior CT dated 02/24/2018 FINDINGS: LUNGS: Pulmonary congestion noted. Bilateral lower lobe consolidation likely due to pleural effusions PLEURA: Moderate to large bilateral pleural effusions CARDIOVASCULAR: No aortic atherosclerotic calcification present. Suspicious for cardiomegaly. No pulmonary vascular congestion. OSSEOUS STRUCTURES: No significant abnormalities. VISUALIZED UPPER ABDOMEN: Normal. OTHER FINDINGS: None. IMPRESSION: Moderate to large bilateral pleural effusion. Moderate pulmonary vascular congestion
[2018-02-25 10:53] LABS: BASO % 0.1 % (0.0-2.0); LYMPH # 0.7 K/uL (1.0-4.3); LYMPH % 5.3 % (20.0-40.0); MEAN CORPUSCULAR HEMOGLOBIN 23.7 pg (27.0-31.0); MEAN CORPUSCULAR HGB CONC 30.8 g/dL (33.0-37.0); MEAN PLATELET VOLUME 9.1 fL (7.2-11.7); MONO # 1.1 K/uL (0.0-0.8); MONO % 8.4 % (0.0-10.0); NEUT # 11.1 K/uL (1.8-7.0); NEUT % 86.2 % (50.0-75.0); NRBC % 0.5 % (0.0-2.0); PLATELET COUNT 216 K/uL (130-400); RBC 5.09 Mil/uL (3.80-5.20); RED CELL DISTRIBUTION WIDTH 24.4 % (11.5-14.5); WHITE BLOOD COUNT 12.9 K/uL (4.8-10.8)
[2018-02-25 10:56] LABS: HEMOGLOBIN 12.1 g/dL (11.0-16.0)
--- NOTE | 2018-02-25 10:56 | CP.PCM.PN ---
Subjective - Date & Time of Evaluation Date of Evaluation: 02/25/18 Time of Evaluation: 10:53 - Subjective Subjective: pthad difficulty breathing had rapid response my need entubation bilateral lung efusion Objective - Vital Signs/Intake and Output Vital Signs (last 24 hours): Temp Pulse Resp BP Pulse Ox 98.2 F 94 H 20 113/73 97 02/24/18 23:25 02/24/18 23:25 02/24/18 23:25 02/24/18 23:25 02/24/18 23:25 Intake and Output: 02/25/18 02/25/18 06:59 18:59 Intake Total 200 Output Total 100 Balance 100 - Medications Medications: Current Medications Acetaminophen (Tylenol 325mg Tab) 650 mg PO Q6 PRN PRN Reason: Pain, moderate (4-7) Albuterol/Ipratropium (Duoneb 3 Mg/0.5 Mg (3 Ml) Ud) 3 ml INH RQ4 [facility] Furosemide (Lasix) 40 mg PO BID [facility] Last Admin: 02/24/18 21:42 Dose: 40 mg Piperacillin Sod/Tazobactam Sod (Zosyn 3.375 Gm Iv Premix) 3.375 gm in 50 mls @ 100 mls/hr IVPB STAT STA; Protocol Stop: 02/25/18 11:16 Vancomycin/Sodium Chloride (Vancomycin 1 Gm/Ns 200 Ml) 1 gm in 200 mls @ 133.333 mls/hr IVPB STAT STA; Protocol Stop: 02/25/18 12:16 Pantoprazole Sodium (Protonix Ec Tab) 40 mg PO DAILY [facility] Pneumococcal Polyvalent Vaccine (Pneumovax 23 Vaccine) 0.5 ml IM .ONCE ONE Stop: 02/26/18 10:01 Potassium Chloride (Klor-Con 10) 10 meq PO BID [facility] Last Admin: 02/24/18 21:43 Dose: 10 meq - Labs Labs: 02/24/18 06:16 02/24/18 06:16 PT 16.5 SECONDS (9.7-12.2) H 02/24/18 06:16 INR 1.5 02/24/18 06:16 APTT 33 SECONDS (21-34) 02/24/18 06:16 - Constitutional Appears: In Acute Distress - Head Exam Head Exam: NORMAL INSPECTION - Eye Exam Eye Exam: Conjunctival injection - ENT Exam ENT Exam: Mucous Membranes Moist - Neck Exam Neck Exam: Full ROM - Respiratory Exam Respiratory Exam: Decreased Breath Sounds, Respiratory Distress - Cardiovascular Exam Cardiovascular Exam: Tachycardia, +S1, +S2, +S4 - GI/Abdominal Exam GI & Abdominal Exam: Normal Bowel Sounds - Rectal Exam Rectal Exam: Deferred - Back Exam Back Exam: NORMAL INSPECTION - Neurological Exam Neurological Exam: Altered - Psychiatric Exam Psychiatric exam: Flat Affect - Skin Skin Exam: Normal Color - Additional Findings Additional findings: l shoulder disclocation Assessment and Plan - Assessment and Plan (Free Text) Assessment: acute respiratory distress bilateral efusion chf recurrent falls shoulder disclocation Plan: pt need icu care and entubation
--- NOTE | 2018-02-25 10:57 | RAD ---
Date of service: 02/25/2018 HISTORY: sob, motion picture camera operator COMPARISON: Comparison is made to the previous study dated 02/24/2018 FINDINGS: LUNGS: Diffuse pulmonary vascular congestion is noted. PLEURA: Moderate to large bilateral pleural effusions CARDIOVASCULAR: No aortic atherosclerotic calcification present. Cardiomegaly is suspected. No pulmonary vascular congestion. OSSEOUS STRUCTURES: No significant abnormalities. VISUALIZED UPPER ABDOMEN: Normal. OTHER FINDINGS: None. IMPRESSION: Moderate to large bilateral pleural effusions associated with bilateral lower lobe consolidation and pulmonary congestion.
[2018-02-25 11:11] LABS: CALCIUM 8.6 mg/dl (8.6-10.4)
[2018-02-25 11:12] LABS: ALB/GLOB RATIO 0.9 (1.0-2.1); ALBUMIN 2.9 g/dL (3.5-5.0); CALCIUM 8.7 mg/dl (8.6-10.4)
[2018-02-25 11:24] LABS: CK-MB 2.78 ng/mL (0.0-3.38); TROPONIN I 0.052 ng/mL (0.00-0.120)
--- NOTE | 2018-02-25 11:35 | CP.PCM.CON ---
History of Present Illness - History of Present Illness History of Present Illness: 82 y/o female with pmx of COPD/heart failure and b/l pleural effusion had sudden onset of SOB and was intubated. Patient was on bi-pap with AMS. ROS: unable to obtain as patient altered Daughter at bedside verbalized that she did not want her mother to suffer and could not see her having difficultu breathing. Daughter agreed to intubation. Anesthesia called for intubation. Review of Systems - Review of Systems Systems not reviewed;Unavailable: Altered Mental Status Past Patient History - Infectious Disease Hx of Infectious Diseases: None - Tetanus Immunizations Tetanus Immunization: Unknown - Past Social History Smoking Status: Never Smoked - CARDIAC Hx Congestive Heart Failure: Yes - NEUROLOGICAL Hx Dementia: Yes - ENDOCRINE/METABOLIC Hx Endocrine Disorders: No - HEMATOLOGICAL/ONCOLOGICAL Hx Blood Disorders: No - INTEGUMENTARY Other/Comment: weeping edema, on bilateral lower ext - MUSCULOSKELETAL/RHEUMATOLOGICAL Hx Falls: Yes - GASTROINTESTINAL Hx Gastrointestinal Disorders: No - GENITOURINARY/GYNECOLOGICAL Hx Genitourinary Disorders: No - PSYCHIATRIC Hx Substance Use: No - SURGICAL HISTORY Hx Surgeries: No - ANESTHESIA Hx Anesthesia: Yes Meds Allergies/Adverse Reactions: Allergies Allergy/AdvReac Type Severity Reaction Status Date / Time warfarin [From Coumadin] Allergy Verified 02/24/18 05:44 - Medications Medications: Current Medications Acetaminophen (Tylenol 325mg Tab) 650 mg PO Q6 PRN PRN Reason: Pain, moderate (4-7) Albuterol/Ipratropium (Duoneb 3 Mg/0.5 Mg (3 Ml) Ud) 3 ml INH RQ4 KEV Bumetanide (Bumex) 2 mg IVP ONCE STA Stop: 02/25/18 11:11 Bumetanide (Bumex) 2 mg IVP ONCE STA Stop: 02/25/18 11:11 Furosemide (Lasix) 40 mg PO BID KEV Last Admin: 02/24/18 21:42 Dose: 40 mg Vancomycin/Sodium Chloride (Vancomycin 1 Gm/Ns 200 Ml) 1 gm in 200 mls @ 133.333 mls/hr IVPB STAT STA; Protocol Stop: 02/25/18 12:16 Potassium Chloride (Potassium Chloride 10 Meq/100 Ml) 10 meq in 100 mls @ 100 mls/hr IVPB Q1H KEV Stop: 02/25/18 15:29 Pantoprazole Sodium (Protonix Ec Tab) 40 mg PO DAILY [facility] Pneumococcal Polyvalent Vaccine (Pneumovax 23 Vaccine) 0.5 ml IM .ONCE ONE Stop: 02/26/18 10:01 Potassium Chloride (Klor-Con 10) 10 meq PO BID KEV Last Admin: 02/24/18 21:43 Dose: 10 meq Verapamil HCl (Verapamil Inj) 2.5 mg IVP ONCE ONE Stop: 02/25/18 11:21 Physical Exam - Head Exam Head Exam: NORMAL INSPECTION - Eye Exam Eye Exam: Normal appearance - ENT Exam ENT Exam: Mucous Membranes Dry - Respiratory Exam Respiratory Exam: Decreased Breath Sounds, Rales, Rhonchi, Respiratory Distress - Cardiovascular Exam Cardiovascular Exam: Tachycardia, REGULAR RHYTHM, +S1, +S2 - GI/Abdominal Exam GI & Abdominal Exam: Normal Bowel Sounds, Soft. absent: Tenderness - Neurological Exam Neurological exam: Altered - Skin Skin Exam: Warm Results - Vital Signs Recent Vital Signs: Last Vital Signs Temp 98.2 F 02/24/18 23:25 Pulse 94 H 02/24/18 23:25 Resp 20 02/24/18 23:25 BP 113/73 02/24/18 23:25 Pulse Ox 97 02/24/18 23:25 - Labs Result Diagrams: 02/25/18 14:03 02/25/18 14:03 Labs: Laboratory Results - last 24 hr 02/25/18 02/25/18 02/25/18 10:21 10:39 10:39 WBC RBC Hgb Hct MCV MCH MCHC RDW Plt Count MPV Neut % (Auto) Lymph % (Auto) [place] % (Auto) Eos % (Auto) Baso % (Auto) Neut # (Auto) Lymph # (Auto) [facility] # (Auto) Eos # (Auto) Baso # (Auto) D-Dimer, Quantitative Puncture Site Rra pCO2 40 pO2 214 H HCO3 25.5 ABG pH 7.41 ABG Total CO2 26.6 ABG O2 Saturation 99.8 H ABG Base Excess 0.7 Pawel Test Pos ABG Potassium 3.6 A-a O2 Difference 449.0 Respiratory Index 2.1 Sodium 143.0 143 144 Chloride 109.0 H 104 104 Glucose 91 Lactate 4.4 H* Liter Flow 15.0 FiO2 100.0 Crit Value Called To Dr saeed Crit Value Called By Chato bernabe computer project manager Crit Value Read Back Y Blood Gas Notified Time 1027 Potassium 4.1 4.0 Carbon Dioxide 27 27 Anion Gap 15 17 BUN 38 H 38 H Creatinine 1.3 H 1.3 H Est GFR ( Amer) 47 47 Est GFR (Non-Af Amer) 39 39 Random Glucose 89 88 Calcium 8.6 8.7 Phosphorus 4.5 Magnesium 2.1 Total Bilirubin 3.3 H AST 66 H D ALT 24 Alkaline Phosphatase 51 Total Creatine Kinase 339 H CK-MB (Mass) 2.78 Troponin I 0.0520 NT-Pro-B Natriuret Pep 71204 H Total Protein 6.0 L Albumin 2.9 L Globulin 3.1 Albumin/Globulin Ratio 0.9 L Arterial Blood Potassium 3.6 02/25/18 02/25/18 10:39 10:39 WBC 12.9 H RBC 5.09 Hgb 12.1 Hct 39.2 MCV 77.0 L MCH 23.7 L MCHC 30.8 L RDW 24.4 H Plt Count 216 MPV 9.1 Neut % (Auto) 86.2 H Lymph % (Auto) 5.[address] [place] % (Auto) 8.4 Eos % (Auto) 0.0 Baso % (Auto) 0.1 Neut # (Auto) 11.1 H Lymph # (Auto) 0.[address] [place] # (Auto) 1.1 H Eos # (Auto) 0.0 Baso # (Auto) 0.0 D-Dimer, Quantitative 1684 H Puncture Site pCO2 pO2 HCO3 ABG pH ABG Total CO2 ABG O2 Saturation ABG Base Excess Pawel Test ABG Potassium A-a O2 Difference Respiratory Index Sodium Chloride Glucose Lactate Liter Flow FiO2 Crit Value Called To Crit Value Called By Crit Value Read Back Blood Gas Notified Time Potassium Carbon Dioxide Anion Gap BUN Creatinine Est GFR ( Amer) Est GFR (Non-Af Amer) Random Glucose Calcium Phosphorus Magnesium Total Bilirubin AST ALT Alkaline Phosphatase Total Creatine Kinase CK-MB (Mass) Troponin I NT-Pro-B Natriuret Pep Total Protein Albumin Globulin Albumin/Globulin Ratio Arterial Blood Potassium Assessment & Plan - Assessment and Plan (Free Text) Assessment: Hypoxic respiratory failure: placed on bi-pap patient still struggling. daughter agreed with intubation, bumex pushed, solumedorl and bronchodilators continued -Chronic systolic/diastolic heart failure: will benefit from negative balance, continue av ian mayank -b/l pleural effusion: offer thoracentesis with medical negative balance -sepsis: figueredo culture, serial lactic, broad spectrum abx -NPO -BGm q6hrs, ISS dvt ppx PUD pp protonix cc time 35 miuntes - Date & Time Date: 02/25/18 Time: 11:37
[2018-02-25 11:55] LABS: ANISOCYTOSIS MODERATE; LYMPHOCYTE 5 % (20-40); MONOCYTE 7 % (0-10); NEUTROPHIL 88 % (50-75); PLATELET ESTIMATE NORMAL (NORMAL); TOTAL CELLS COUNTED 100
[2018-02-25 11:56] LABS: HYPOCHROMIC MODERATE; LARGE PLATELETS PRESENT; MICROCYTOSIS SLIGHT; OVALOCYTES SLIGHT; POIKILOCYTOSIS SLIGHT; POLYCHROMIC SLIGHT; TARGET CELLS SLIGHT
--- NOTE | 2018-02-25 11:57 | PCM.ANES ---
Anesthesia Emergent Intubation - Diagnosis Working Diagnosis:: acute respiratory failure - Consult Reason for Consult:: intubation - Pre-Intubation Vital Signs Oxygen Delivery Method: BiPAP Level Of Consciousness: Lethargic Intubation Meds Given: Etomidate (20 mg), Succinylcholine (140) - Airway Management Oropharyngeal Area Suctioned: Yes - Method of Intubation Intubation Method: Oral ETT ETT Size: 7.5 Lipline@: 22 Easy: Yes Atramatic: Yes - Intubation Devices Maira Blade Size Used: 3 - Placement Confirmation Breath Sounds Present & Equal Bilaterally: Yes Gurgling Sounds Not Audible at Epigastrum: Yes Positive EtCO2: Yes Recommendations: Ventilator, Chest X Ray, ABG
[2018-02-25 11:58] LABS: SCHISTOCYTES SLIGHT
[2018-02-25 13:03] LABS: INR 1.7; PROTHROMBIN TIME 18.6 SECONDS (9.7-12.2)
[2018-02-25] MEDS: Magnesium Sulfate 1 gm in D5W 1 GM/100 ML BAG IVPB SCH ×2 (13:10→16:56)
--- NOTE | 2018-02-25 13:45 | CP.PCM.CON ---
History of Present Illness - History of Present Illness History of Present Illness: Neurology Consultation Note: Mrs. Cody is an 82-year-old woman who was admitted after a fall, during which she hit her head, and found to have CHF, pleural effusion, venous stasis ulcers developed respiratory distress, altered mental status and was intubated. Non- contrast CT scan of the head did not show any acute findings. Neurology was consulted for altered mental status. When I saw the patient, her daughter and grandson were in the room and we discussed the events leading to the hospitalization. The patient has had two fa lls, one of them was after she tripped, and his her head. The other fall resulted in injuries to her shoulder. She has ulcerations of her lower extremities and these appear to be worsening. The daughter suspects that her mother has developed dementia since she has been progressively more disorien nilesh/confused. Review of Systems - Review of Systems Systems not reviewed;Unavailable: Intubated Past Patient History - Infectious Disease Hx of Infectious Diseases: None - Tetanus Immunizations Tetanus Immunization: Unknown - Past Social History Smoking Status: Never Smoked - CARDIAC Hx Congestive Heart Failure: Yes - NEUROLOGICAL Hx Dementia: Yes - ENDOCRINE/METABOLIC Hx Endocrine Disorders: No - HEMATOLOGICAL/ONCOLOGICAL Hx Blood Disorders: No - INTEGUMENTARY Other/Comment: weeping edema, on bilateral lower ext - MUSCULOSKELETAL/RHEUMATOLOGICAL Hx Falls: Yes - GASTROINTESTINAL Hx Gastrointestinal Disorders: No - GENITOURINARY/GYNECOLOGICAL Hx Genitourinary Disorders: No - PSYCHIATRIC Hx Substance Use: No - SURGICAL HISTORY Hx Surgeries: No - ANESTHESIA Hx Anesthesia: Yes Meds Allergies/Adverse Reactions: Allergies Allergy/AdvReac Type Severity Reaction Status Date / Time warfarin [From Coumadin] Allergy Verified 02/24/18 05:44 - Medications Medications: Current Medications Acetaminophen (Tylenol 325mg Tab) 650 mg PO Q6 PRN PRN Reason: Pain, moderate (4-7) Albuterol/Ipratropium (Duoneb 3 Mg/0.5 Mg (3 Ml) Ud) 3 ml INH RQ4 KEV Furosemide (Lasix) 40 mg PO BID KEV Last Admin: 02/24/18 21:42 Dose: 40 mg Potassium Chloride (Potassium Chloride 10 Meq/100 Ml) 10 meq in 100 mls @ 100 mls/hr IVPB Q1H KEV Stop: 02/25/18 15:29 Last Admin: 02/25/18 13:19 Dose: 100 mls/hr Dexmedetomidine HCl 200 mcg/ (Sodium Chloride) 50 mls @ 5.44 mls/hr IV TITR PRN; Protocol PRN Reason: Agitation Pantoprazole Sodium (Protonix Ec Tab) 40 mg PO DAILY [facility] Last Admin: 02/25/18 10:00 Dose: Not Given Pneumococcal Polyvalent Vaccine (Pneumovax 23 Vaccine) 0.5 ml IM .ONCE ONE Stop: 02/26/18 10:01 Potassium Chloride (Klor-Con 10) 10 meq PO BID [facility] Last Admin: 02/25/18 10:00 Dose: Not Given Physical Exam - Constitutional Appears: Toxic, Chronically Ill - Head Exam Additional comments: selwyn-orbital and scalp hematoma - Eye Exam Eye Exam: Normal appearance, Periorbital swelling, Periorbital tenderness Pupil Exam: PERRL - ENT Exam ENT Exam: Mucous Membranes Moist, Normal Exam - Neck Exam Neck exam: Positive for: Normal Inspection - Respiratory Exam Respiratory Exam: Respiratory Distress - Cardiovascular Exam Cardiovascular Exam: REGULAR RHYTHM, +S1, +S2 - GI/Abdominal Exam GI & Abdominal Exam: Normal Bowel Sounds, Soft. absent: Tenderness - Rectal Exam Rectal Exam: Deferred - Neurological Exam Additional comments: Intubated. Off sedation. Opens eyes to voice, follows simple commands in lower extremities. Movement is limited in upper extremities due to injuries and significant edema. Results - Vital Signs Recent Vital Signs: Last Vital Signs Temp 98.2 F 02/24/18 23:25 Pulse 94 H 02/24/18 23:25 Resp 20 02/24/18 23:25 BP 143/91 H 02/25/18 10:10 Pulse Ox 97 02/24/18 23:25 - Labs Result Diagrams: 02/25/18 14:03 02/25/18 10:39 Labs: Laboratory Results - last 24 hr 02/25/18 02/25/18 02/25/18 10:21 10:39 10:39 WBC RBC Hgb Hct MCV MCH MCHC RDW Plt Count MPV Neut % (Auto) Lymph % (Auto) [place] % (Auto) Eos % (Auto) Baso % (Auto) Neut # (Auto) Lymph # (Auto) [place] # (Auto) Eos # (Auto) Baso # (Auto) Neutrophils % (Manual) Lymphocytes % (Manual) Monocytes % (Manual) Platelet Estimate Large Platelets Polychromasia Hypochromasia (manual) Poikilocytosis (manual Anisocytosis (manual) Microcytosis (manual) Target Cells Ovalocytes Schistocytes PT INR APTT D-Dimer, Quantitative Puncture Site Rra pCO2 40 pO2 214 H HCO3 25.5 ABG pH 7.41 ABG Total CO2 26.6 ABG O2 Saturation 99.8 H ABG Base Excess 0.7 Pawel Test Pos ABG Potassium 3.6 A-a O2 Difference 449.0 Respiratory Index 2.1 Sodium 143.0 143 144 Chloride 109.0 H 104 104 Glucose 91 Lactate 4.4 H* Liter Flow 15.0 FiO2 100.0 Crit Value Called To Dr saeed Crit Value Called By Chato bernabe coordinator of placement Crit Value Read Back Y Blood Gas Notified Time 1027 Potassium 4.1 4.0 Carbon Dioxide 27 27 Anion Gap 15 17 BUN 38 H 38 H Creatinine 1.3 H 1.3 H Est GFR ( Amer) 47 47 Est GFR (Non-Af Amer) 39 39 Random Glucose 89 88 Calcium 8.6 8.7 Phosphorus 4.5 Magnesium 2.1 Total Bilirubin 3.3 H AST 66 H D ALT 24 Alkaline Phosphatase 51 Total Creatine Kinase 339 H CK-MB (Mass) 2.78 Troponin I 0.0520 NT-Pro-B Natriuret Pep 53330 H Total Protein 6.0 L Albumin 2.9 L Globulin 3.1 Albumin/Globulin Ratio 0.9 L Arterial Blood Potassium 3.6 02/25/18 02/25/18 02/25/18 10:39 10:39 12:53 WBC 12.9 H RBC 5.09 Hgb 12.1 Hct 39.2 MCV 77.0 L MCH 23.7 L MCHC 30.8 L RDW 24.4 H Plt Count 216 MPV 9.1 Neut % (Auto) 86.2 H Lymph % (Auto) 5.3 L [place] % (Auto) 8.4 Eos % (Auto) 0.0 Baso % (Auto) 0.1 Neut # (Auto) 11.1 H Lymph # (Auto) 0.7 L [place] # (Auto) 1.1 H Eos # (Auto) 0.0 Baso # (Auto) 0.0 Neutrophils % (Manual) 88 H Lymphocytes % (Manual) 5 L Monocytes % (Manual) 7 Platelet Estimate Normal Large Platelets Present Polychromasia Slight Hypochromasia (manual) Moderate Poikilocytosis (manual Slight Anisocytosis (manual) Moderate Microcytosis (manual) Slight Target Cells Slight Ovalocytes Slight Schistocytes Slight PT 18.6 H INR 1.7 APTT 35 H D-Dimer, Quantitative 1684 H Puncture Site pCO2 pO2 HCO3 ABG pH ABG Total CO2 ABG O2 Saturation ABG Base Excess Pawel Test ABG Potassium A-a O2 Difference Respiratory Index Sodium Chloride Glucose Lactate Liter Flow FiO2 Crit Value Called To Crit Value Called By Crit Value Read Back Blood Gas Notified Time Potassium Carbon Dioxide Anion Gap BUN Creatinine Est GFR ( Amer) Est GFR (Non-Af Amer) Random Glucose Calcium Phosphorus Magnesium Total Bilirubin AST ALT Alkaline Phosphatase Total Creatine Kinase CK-MB (Mass) Troponin I NT-Pro-B Natriuret Pep Total Protein Albumin Globulin Albumin/Globulin Ratio Arterial Blood Potassium Assessment & Plan (1) Toxic metabolic encephalopathy Assessment and Plan: Likely due to active underlying infection, CHF exacerbation, respiratory difficulty, head injury, etc. I recommend repeating a non-contrast CT scan of the head to determine if there is any slowly developing subdural collection. Otherwise, continue current treatment of active medical conditions. Thank you for this consultation. Status: Acute
[2018-02-25 14:14] LABS: BASO % 0.1 % (0.0-2.0); HEMOGLOBIN 10.6 g/dL (11.0-16.0); LYMPH # 0.3 K/uL (1.0-4.3); LYMPH % 3.2 % (20.0-40.0); MEAN CELL VOLUME 76.8 fL (81.0-99.0); MEAN CORPUSCULAR HEMOGLOBIN 24.3 pg (27.0-31.0); MEAN CORPUSCULAR HGB CONC 31.6 g/dL (33.0-37.0); MEAN PLATELET VOLUME 9.3 fL (7.2-11.7); MONO # 0.5 K/uL (0.0-0.8); MONO % 4.6 % (0.0-10.0); NEUT # 9.8 K/uL (1.8-7.0); NEUT % 92.1 % (50.0-75.0); NRBC % 0.4 % (0.0-2.0); RBC 4.38 Mil/uL (3.80-5.20); RED CELL DISTRIBUTION WIDTH 24.6 % (11.5-14.5); WHITE BLOOD COUNT 10.6 K/uL (4.8-10.8)
[2018-02-25 14:18] LABS: BODY FLUID TYPE PLEURAL
[2018-02-25 14:36] LABS: TROPONIN I 0.066 ng/mL (0.00-0.120)
[2018-02-25] MEDS: Dexmedetomidine Hydrochloride 200 MCG in Sodium Chloride 0.9% 48 ML IV PRN ×2 (14:40→20:25)
[2018-02-25 14:50] LABS: BF GROSS APPEARANCE CLOUDY (CLEAR)
[2018-02-25 14:51] LABS: BODY FLUID TOTAL COUNT 100 (0-0)
[2018-02-25 14:53] LABS: BODY FLUID MONO/MACROPHAGE 16 % (0-0)
[2018-02-25] MEDS ORDERED: Magnesium Sulfate 1 gm in D5W 1 GM/100 ML BAG IVPB SCH (15:00)
--- NOTE | 2018-02-25 15:36 | RAD ---
Date of service: 02/25/2018 HISTORY: effusoin/et tube COMPARISON: Comparison is made with 02/25/2018 FINDINGS: LUNGS: Moderate pulmonary vascular congestion is again noted. Left lung is small in size which could be due to partial atelectasis. There is a ET tube seen in place. PLEURA: Bilateral pleural effusions are again noted. CARDIOVASCULAR: No aortic atherosclerotic calcification present. Mild cardiomegaly is again noted. No pulmonary vascular congestion. OSSEOUS STRUCTURES: No significant abnormalities. VISUALIZED UPPER ABDOMEN: Normal. OTHER FINDINGS: There is a right jugular central line noted in place. IMPRESSION: Appropriate position of the support devices. Bilateral pleural effusions and moderate pulmonary vascular congestion.
--- NOTE | 2018-02-25 15:36 | CARD ---
APPROVED REPORT Date of service: 02/24/2018 EKG Measurement Heart [id number] <Conclusion> Atrial fibrillation Low voltage QRS Nonspecific T wave abnormality Abnormal ECG
--- NOTE | 2018-02-25 15:37 | CARD ---
APPROVED REPORT Date of service: 02/24/2018 EKG Measurement Heart [id number] <Conclusion> Atrial fibrillation Low voltage QRS Cannot rule out Anterior infarct, age undetermined Abnormal ECG
--- NOTE | 2018-02-25 17:04 | PCM.PROC ---
Procedures Attestation:: I certify that I have explained the specified Operation(s) or Procedure(s), risks, benefits and reasonable alternatives to the Patient and/or other person responsible. The opportunity was given to ask questions and all questions answered - Central Line Placement Right Internal Jugular Triple Lumen Catheter Aseptic technique was employed throughout the procedure: Full sterile barriers (mask, hair cover, sterile gown, sterile gloves), Chloraprep Antiseptic: 30 sec ond prep for IJ or SC sites CVP Time Out Performed: Yes Central Line Prep: Chlorhexidine-Alcohol Combination Local Anesthesia Used: Lidocaine 1% Amount of Anesthesia Used (mls): 5 Ultrasound Used for Placement: Yes Central Line Lumen Inserted: triple Central Line Length: 20 cm Post Procedure: Sutured in Place, Good Blood Return, All Ports Aspirated, Flushed, Capped, Sterile Dressing Applied Secured by: Securement device Post procedure dressing: Gauze, Clear vapor permeable, Chlorhexidine disc (Biopatch) Post Procedure X-Ray: Yes Patient Tolerated Procedure: Well Immediate Complications: None
[2018-02-25] MEDS ORDERED: Norepinephrine 4 MG in Dextrose 5% In Water 246 ML IV PRN (17:26)
[2018-02-25] MEDS: Albumin Human 25% (12.5 gm/50 ml) IV SCH (17:37)
--- NOTE | 2018-02-25 17:40 | CP.PCM.PN ---
Subjective - Date & Time of Evaluation Date of Evaluation: 02/25/18 Time of Evaluation: 17:36 - Subjective Subjective: Podiatry Progress Note for Dr. Shah 82F seen at bedside in the ICU with Dr. Shah for b/l venous stasis ulceration to LE. Patient fell at home prompting her visit to the hospital. patient is currently intubated after rapid response was called on the patient yesterday. Nurse denies any other acute events. Objective - Vital Signs/Intake and Output Vital Signs (last 24 hours): Temp Pulse Resp BP Pulse Ox 98.2 F 94 H 20 143/91 H 97 02/24/18 23:25 02/24/18 23:25 02/24/18 23:25 02/25/18 10:10 02/24/18 23:25 Intake and Output: 02/25/18 02/25/18 06:59 18:59 Intake Total 200 663.0 Output Total 100 300 Balance 100 363.0 - Medications Medications: Current Medications Acetaminophen (Tylenol 325mg Tab) 650 mg PO Q6 PRN PRN Reason: Pain, moderate (4-7) Albumin Human (Albumin Human 25% (12.5 Gm/50 Ml)) 25 gm IV Q6H KEV Stop: 02/26/18 12:01 Albuterol/Ipratropium (Duoneb 3 Mg/0.5 Mg (3 Ml) Ud) 3 ml INH RQ4 KEV Last Admin: 02/25/18 17:10 Dose: 3 ml Furosemide (Lasix) 40 mg PO BID KEV Last Admin: 02/25/18 17:04 Dose: Not Given Dexmedetomidine HCl 200 mcg/ (Sodium Chloride) 50 mls @ 5.44 mls/hr IV TITR PRN; Protocol PRN Reason: Agitation Last Admin: 02/25/18 14:40 Dose: 0.2 mcg/kg/hr, 5.44 mls/hr Potassium Chloride (Potassium Chloride 10 Meq/100 Ml) 10 meq in 100 mls @ 100 mls/hr IVPB Q1H KEV Stop: 02/25/18 17:59 Last Admin: 02/25/18 17:04 Dose: Not Given Norepinephrine Bitartrate 4 mg (/ Dextrose) 250 mls @ 15 mls/hr IV .[id number] PRN; Protocol PRN Reason: TITRATE PER MD ORDER Pantoprazole Sodium (Protonix Ec Tab) 40 mg PO DAILY [facility] Last Admin: 02/25/18 10:00 Dose: Not Given Pneumococcal Polyvalent Vaccine (Pneumovax 23 Vaccine) 0.5 ml IM .ONCE ONE Stop: 02/26/18 10:01 Potassium Chloride (Klor-Con 10) 10 meq PO BID [facility] Last Admin: 02/25/18 17:04 Dose: Not Given - Labs Labs: 02/25/18 14:03 02/25/18 14:03 PT 18.6 SECONDS (9.7-12.2) H 02/25/18 12:53 INR 1.7 02/25/18 12:53 APTT 35 SECONDS (21-34) H 02/25/18 12:53 - Constitutional Appears: Well, Non-toxic, No Acute Distress - Head Exam Head Exam: ATRAUMATIC - Extremities Exam Additional comments: unna boots clean dry and intact. Vascular: pulses are palpable b/l, Tg warm to warm, Cft <3 secs x 10, no edema or erythema noted to bilateral lower extremities neuro: unable to assess derm: dry, flaky, hyperkeratotic skin noted to b/l LE distal to the knee joint, open wound noted to the psoterior aspect of the proximal 1/3rd of the leg measuring approximately 2.5 cm x 2.5cm with a granular base, active serosanguinous drinage noted, no malodor, no tracking or tunneling noted. Left leg: multiple superficial scabs noted to the proximal 1/3rd of the leg,no drainage, no malodor, no erythema or edema ortho: patient seems to flinch with palpation of the wound to the right leg . - Psychiatric Exam Psychiatric exam: Normal Affect Assessment and Plan - Assessment and Plan (Free Text) Assessment: 82 yo female seen and evaluated at bedside in the ICU for bilateral venous stasis wounds. Plan: patient seen and evaluated chart, labs and vitals reviewed; afebrile Unna boots removed b/l legs dressed with betadine soaked gauze and DSD patient to be in multipodus boots at all times Podiatry will continue to follow the patient
--- NOTE | 2018-02-25 18:09 | PCM.SEPTIC ---
Sepsis Progress Note - Reassessment Type Date of Evaluation: 02/25/18 Time of Evaluation: 18:00 Reassessment Type: Non-invasive reassessment - Non Invasive Reassessment Were the most recent vital sign reviewed: Yes Vital Sign (Latest): Temp Pulse Resp BP Pulse Ox 98.2 F 94 H 20 143/91 H 97 02/24/18 23:25 02/24/18 23:25 02/24/18 23:25 02/25/18 10:10 02/24/18 23:25 Cardiovascular: No: JVD, Tachycardia Respiratory: No: Rales, Respiratory Distress Capillary Refill: Normal (Less than 2 sec) Skin: Warm, Dry
[2018-02-25 18:31] LABS: ARTERIAL BLOOD GAS HCO3 28.4 mmol/L (21-28); ARTERIAL BLOOD GAS O2 SAT 99.5 % (95-98); ARTERIAL BLOOD GAS PCO2 32 mm/Hg (35-45); ARTERIAL BLOOD GAS PH 7.53 (7.35-7.45); ARTERIAL BLOOD GAS PO2 221 mm/Hg (80-100); ARTERIAL BLOOD GAS TCO2 27.7 mmol/L (22-28)
[2018-02-25] MEDS: Piperacill/Tazo 3.375gm in Dex 3.375 GM/50 ML BAG IVPB SCH (20:19)
[2018-02-25] MEDS ORDERED: Iohexol 240 (50 ml) PO ONE ×2 (21:30→21:45)
[2018-02-25 21:51] LABS: SQUAMOUS EPITHIAL 3 /hpf (0-5); URINE BACTERIA OCC (<OCC); URINE BILIRUBIN NEGATIVE (NEGATIVE); URINE BLOOD 3+ (NEGATIVE); URINE CALCIUM OXALATE CRYSTALS OCC /hpf (<OCC); URINE CLARITY Hazy (Clear); URINE GLUCOSE (UA) NORMAL (Normal); URINE HYALINE CAST 0-2 /lpf (0-2); URINE LEUKOCYTE ESTERASE 2+ Leu/uL (Negative); URINE PROTEIN 1+ mg/dL (NEGATIVE)
[2018-02-25 22:04] LABS: URINE COLOR YELLOW (YELLOW)
[2018-02-25 22:23] LABS: BASO % 0.5 % (0.0-2.0); EOS % 0.1 % (0.0-4.0); HEMOGLOBIN 10.3 g/dL (11.0-16.0); LYMPH # 0.5 K/uL (1.0-4.3); LYMPH % 5.8 % (20.0-40.0); MEAN CELL VOLUME 76.5 fL (81.0-99.0); MEAN CORPUSCULAR HEMOGLOBIN 24.1 pg (27.0-31.0); MEAN CORPUSCULAR HGB CONC 31.5 g/dL (33.0-37.0); MEAN PLATELET VOLUME 9.4 fL (7.2-11.7); MONO # 0.5 K/uL (0.0-0.8); NEUT # 8.2 K/uL (1.8-7.0); NEUT % 88.6 % (50.0-75.0); NRBC % 0.2 % (0.0-2.0); PLATELET COUNT 130 K/uL (130-400); RBC 4.27 Mil/uL (3.80-5.20); RED CELL DISTRIBUTION WIDTH 24.6 % (11.5-14.5); WHITE BLOOD COUNT 9.3 K/uL (4.8-10.8)
[2018-02-25 23:15] LABS: LYMPHOCYTE 3 % (20-40); MONOCYTE 3 % (0-10); NEUTROPHIL 92 % (50-75); PLATELET ESTIMATE NORMAL (NORMAL); REACTIVE LYMPHOCYTES 2 % (0-0); TOTAL CELLS COUNTED 100
[2018-02-25 23:16] LABS: ANISOCYTOSIS MODERATE; OVALOCYTES SLIGHT; POLYCHROMIC SLIGHT
[2018-02-25 23:17] LABS: MICROCYTOSIS SLIGHT
[2018-02-26] MEDS: Albumin Human 25% (12.5 gm/50 ml) IV SCH ×5 (00:16→23:48)
[2018-02-26] MEDS: Albuterol-Ipratrop 3 mg / 0.5 (3 ml) UD INH SCH ×6 (00:27→19:35)
[2018-02-26] MEDS: Piperacill/Tazo 3.375gm in Dex 3.375 GM/50 ML BAG IVPB SCH ×3 (02:23→18:03)
[2018-02-26 04:29] LABS: ABG ALLEN TEST POS; ARTERIAL BLOOD GAS HCO3 25.3 mmol/L (21-28); ARTERIAL BLOOD GAS HEMOGLOBIN 10.3 g/dL (11.7-17.4); ARTERIAL BLOOD GAS O2 SAT 100.1 % (95-98); ARTERIAL BLOOD GAS PCO2 36 mm/Hg (35-45); ARTERIAL BLOOD GAS PH 7.44 (7.35-7.45); ARTERIAL BLOOD GAS PO2 282 mm/Hg (80-100); ARTERIAL BLOOD GAS TCO2 25.6 mmol/L (22-28)
[2018-02-26 06:31] LABS: SQUAMOUS EPITHIAL < 1 /hpf (0-5); URINE BACTERIA RARE (<OCC); URINE BILIRUBIN NEGATIVE (NEGATIVE); URINE BLOOD 1+ (NEGATIVE); URINE CLARITY Hazy (Clear); URINE COLOR Yellow (YELLOW); URINE GLUCOSE (UA) NORMAL (Normal); URINE LEUKOCYTE ESTERASE NEG Leu/uL (Negative); URINE PROTEIN NEGATIVE (NEGATIVE); WBC CLUMPS FEW /hpf
[2018-02-26 06:41] LABS: BASO % 0.1 % (0.0-2.0); HEMOGLOBIN 10.2 g/dL (11.0-16.0); LYMPH # 0.5 K/uL (1.0-4.3); LYMPH % 4.8 % (20.0-40.0); MEAN CELL VOLUME 77.3 fL (81.0-99.0); MEAN CORPUSCULAR HEMOGLOBIN 23.7 pg (27.0-31.0); MEAN CORPUSCULAR HGB CONC 30.6 g/dL (33.0-37.0); MEAN PLATELET VOLUME 9.4 fL (7.2-11.7); MONO # 0.7 K/uL (0.0-0.8); MONO % 5.9 % (0.0-10.0); NEUT # 10.2 K/uL (1.8-7.0); NEUT % 89.2 % (50.0-75.0); PLATELET COUNT 120 K/uL (130-400); RBC 4.32 Mil/uL (3.80-5.20); RED CELL DISTRIBUTION WIDTH 24.4 % (11.5-14.5); WHITE BLOOD COUNT 11.4 K/uL (4.8-10.8)
[2018-02-26 06:54] LABS: ALB/GLOB RATIO 1.1 (1.0-2.1); ALBUMIN 2.5 g/dL (3.5-5.0); CALCIUM 7.9 mg/dl (8.6-10.4)
[2018-02-26] MEDS: Acetylcysteine 20% Inhal Soln (4ml) INH SCH ×2 (07:20→19:35)
[2018-02-26 08:48] LABS: LYMPHOCYTE 2 % (20-40); MONOCYTE 1 % (0-10); NEUTROPHIL 97 % (50-75); TOTAL CELLS COUNTED 100
[2018-02-26 08:49] LABS: ANISOCYTOSIS MODERATE; HYPOCHROMIC MODERATE; PLATELET ESTIMATE NORMAL (NORMAL); POLYCHROMIC SLIGHT; TARGET CELLS SLIGHT
[2018-02-26 08:50] LABS: OVALOCYTES SLIGHT
[2018-02-26] MEDS: Dexmedetomidine Hydrochloride 200 MCG in Sodium Chloride 0.9% 48 ML IV PRN ×2 (09:59→23:44)
[2018-02-26] MEDS ORDERED: Pneumococcal 23-Valent Vaccine IM ONE (10:00)
[2018-02-26] MEDS ORDERED: Lactated Ringer's 1,000 ML IV ONE (10:00)
--- NOTE | 2018-02-26 10:01 | RAD ---
Date of service: 02/26/2018 HISTORY: INTUBATED COMPARISON: No prior. FINDINGS: In situ right IJ central line with tip in the SVC/RA junction again noted. ETT tip lies approximately 2 cm above fareed. NGT is present, the tip of which appears to lie just below the EG junction. LUNGS: Bilateral lower lobe atelectasis and or infiltrates and bilateral effusions left greater than right. PLEURA: No significant pleural effusion identified, no pneumothorax apparent. CARDIOVASCULAR: There is aortic atherosclerotic calcification present. Cardiomegaly.. No pulmonary vascular congestion. OSSEOUS STRUCTURES: No significant abnormalities. VISUALIZED UPPER ABDOMEN: Normal. OTHER FINDINGS: None. IMPRESSION: Support lines and tubes as above. Bilateral lower lobe atelectatic and or alveolar-type infiltrates with bilateral effusions left larger than right.
--- NOTE | 2018-02-26 10:13 | CT ---
Date of service: 02/25/2018 PROCEDURE: CT HEAD WITHOUT CONTRAST. HISTORY: Evaluate for SDH COMPARISON: Comparison made with CT scan of the brain 02/24/2018. TECHNIQUE: Axial computed tomography images were obtained through the head/brain without intravenous contrast. Radiation dose: Total exam DLP = 1231.84 mGy-cm. This CT exam was performed using one or more of the following dose reduction techniques: Automated exposure control, adjustment of the mA and/or kV according to patient size, and/or use of iterative reconstruction technique. Note the examination is limited by motion artifact FINDINGS: HEMORRHAGE: No definitive intracranial hemorrhage. BRAIN: Mild chronic periventricular white matter ischemic changes seen extending peripherally into the deep white matter both cerebral hemispheres. Previously noted scattered chronic bilateral basal nuclei lacunar type infarcts are less well seen on this study compared to prior exam Mild generalized volume loss. VENTRICLES: Unremarkable. No hydrocephalus. CALVARIUM: No definitive evidence of acute calvarial fractures. There does appear to be mild right supraorbital soft tissue swelling. The PARANASAL SINUSES: Polypoid of foci of mucosal thickening and or mucous retention cyst formation both maxillary antra. MASTOID AIR CELLS: Unremarkable as visualized. No inflammatory changes. OTHER FINDINGS: . In situ ETT and NGT are present of. IMPRESSION: Limited motion degraded study. Mild chronic white matter ischemic changes. Previously noted scattered chronic bilateral basal nuclei lacunar type infarcts are less well seen on this study compared to prior exam No acute intracranial hemorrhage. Moderate generalized volume loss
--- NOTE | 2018-02-26 10:15 | CP.CCUPN ---
<Gen Seth - Last Filed: 02/26/18 14:17> CCU Subjective - Physician Review Subjective (Free Text): 02/26/18 12:46 Patient seen and examined at bedside. Patient is intubated. Critical Care Time Spent (in minutes): 35 CCU Objective - Vital Signs / Intake & Output Vital Signs (Last 4 hours): Vital Signs Pulse Resp BP Pulse Ox 02/26/18 06:58 67 20 93/61 L 99 02/26/18 06:51 65 20 92/59 L 98 02/26/18 06:21 71 20 95/62 L 98 Intake and Output (Last 8hrs): Intake & Output 02/25/18 02/26/18 02/26/18 22:59 06:59 14:59 Intake Total 1387.8 173.2 62.9 Output Total 100 410 40 Balance 1287.8 -236.8 22.9 Intake: IV 50 0 50 Intake, IV Amount 487.8 73.2 12.9 R jug. TLC medial port 37.8 43.2 5.4 R jug. TLC proximal port 50 30.0 7.5 RIJ 2 200 Right Internal Jugular 200 Albumin 100 Other 850 Output: Urine 100 410 40 Urethral ([place]) 310 40 Urine, Voided 100 100 Other: # Bowel Movements 0 0 0 - Physical Exam Head: Positive for: Atraumatic, Normocephalic Conjunctiva: Positive for: Normal Mouth: Positive for: Moist Mucous Membranes Respiratory/Chest: Positive for: Clear to Auscultation, Other (Patient is intubated). Negative for: Wheezes, Rales, Rhonchi Cardiovascular: Positive for: Regular Rate and Rhythm, Normal S1, S2. Negative for: Murmurs, Rub, Gallop Abdomen: Positive for: Normal Bowel Sounds. Negative for: Distention Upper Extremity: Positive for: Normal Inspection Lower Extremity: Positive for: Normal Inspection Skin: Positive for: Warm, Dry, Rashes, Normal Color - Medications Active Medications: Active Medications Generic Name Dose Route Start Last Admin Trade Name Freq PRN Reason Stop Dose Admin Acetaminophen 650 mg 02/24/18 15:47 Tylenol 325mg Tab PO Q6 PRN Pain, moderate (4-7) Acetylcysteine 6 ml 02/26/18 10:00 Acetylcysteine 20% INH 11/24/18 20:01 RQ12 KEV Albumin Human 25 gm 02/25/18 18:00 02/26/18 06:57 Albumin Human 25% (12.5 Gm/50 Ml) IV 02/26/18 12:01 Not Given Q6H KEV Albuterol/Ipratropium 3 ml 02/25/18 12:00 02/26/18 04:09 Duoneb 3 Mg/0.5 Mg (3 Ml) Ud INH 3 ml RQ4 KEV Administration Dexmedetomidine HCl 200 mcg/ 50 mls @ 5.44 mls/hr 02/25/18 13:41 02/26/18 09:59 Sodium Chloride IV 0.19 mcg/kg/hr TITR PRN 5.4 mls/hr Agitation Administration Protocol 0.2 MCG/KG/HR Norepinephrine Bitartrate 4 mg 250 mls @ 15 mls/hr 02/25/18 17:26 02/26/18 07:00 / Dextrose IV 2 mcg/min .[id number] PRN 7.5 mls/hr TITRATE PER MD ORDER Titration Protocol 4 MCG/MIN Piperacillin Sod/Tazobactam Sod 3.375 gm in 50 mls @ 100 mls/hr 02/25/18 19:00 02/26/18 02:23 Zosyn 3.375 Gm Iv Premix IVPB 100 mls/hr Q8H KEV Administration Protocol Lactated Ringer's 1,000 mls @ 1,000 mls/hr 02/26/18 10:00 02/26/18 09:50 Lactated Ringer's IV 02/26/18 10:59 1,000 mls/hr .Q1H ONE Administration Pantoprazole Sodium 40 mg 02/27/18 06:00 Protonix Susp PO 0600 [facility] Potassium Chloride 10 meq 02/24/18 21:00 02/25/18 17:04 Klor-Con 10 PO Not Given BID KEV - Patient Studies Lab Studies: Microbiology Studies 02/25/18 16:48 Gram Stain - Final Trachasp 02/25/18 12:50 Gram Stain - Final Body Fluid - Pleural Fluid 02/25/18 14:52 MRSA Culture (Admit) - Final Nose MRSA NOT DETECTED Lab Studies 02/26/18 02/26/18 02/26/18 Range/Units 06:23 06:23 06:22 WBC 11.4 H (4.8-10.8) K/uL RBC 4.32 (3.80-5.20) Mil/uL Hgb 10.2 L (11.0-16.0) g/dL Hct 33.4 L (34.0-47.0) % MCV 77.3 L (81.0-99.0) fL MCH 23.7 L (27.0-31.0) pg MCHC 30.6 L (33.0-37.0) g/dL RDW 24.4 H (11.5-14.5) % Plt Count 120 L (130-400) K/uL MPV 9.4 (7.2-11.7) fL Neut % (Auto) 89.2 H (50.0-75.0) % Lymph % (Auto) 4.8 L (20.0-40.0) % [place] % (Auto) 5.9 (0.0-10.0) % Eos % (Auto) 0.0 (0.0-4.0) % Baso % (Auto) 0.1 (0.0-2.0) % Neut # (Auto) 10.2 H (1.8-7.0) K/uL Lymph # (Auto) 0.5 L (1.0-4.3) K/uL [place] # (Auto) 0.7 (0.0-0.8) K/uL Eos # (Auto) 0.0 (0.0-0.7) K/uL Baso # (Auto) 0.0 (0.0-0.2) K/uL Neutrophils % (Manual) 97 H (50-75) % Lymphocytes % (Manual) 2 L (20-40) % Reactive Lymphs % (0-0) % Monocytes % (Manual) 1 (0-10) % Platelet Estimate Normal (NORMAL) Large Platelets Polychromasia Slight Hypochromasia (manual) Moderate Poikilocytosis (manual Anisocytosis (manual) Moderate Microcytosis (manual) Target Cells Slight Ovalocytes Slight Schistocytes PT (9.7-12.2) SECONDS INR APTT (21-34) SECONDS D-Dimer, Quantitative (0-243) ng/mlDDU Puncture Site pCO2 (35-45) mm/Hg pO2 (80-100) mm/Hg HCO3 (21-28) mmol/L ABG pH (7.35-7.45) ABG Total CO2 (22-28) mmol/L ABG O2 Saturation (95-98) % ABG Base Excess (-2.0-3.0) mmol/L ABG Hemoglobin (11.7-17.4) g/dL ABG Carboxyhemoglobin (0.5-1.5) % POC ABG HHb (Measured) (0.0-5.0) % ABG Methemoglobin (0.0-3.0) % Pawel Test ABG Potassium (3.6-5.2) mmol/L A-a O2 Difference mm/Hg Respiratory Index Hgb O2 Saturation (95.0-98.0) % Sodium 143 (132-148) mmol/l Chloride 103 (98-107) mmol/L Glucose (65-105) mg/dl Lactate (0.7-2.1) mmol/L Liter Flow Vent Mode Mechanical Rate FiO2 % Tidal Volume PEEP Crit Value Called To Crit Value Called By Crit Value Read Back Blood Gas Notified Time Potassium 3.5 L (3.6-5.2) mmol/L Carbon Dioxide 24 (22-30) mmol/L Anion Gap 19 (10-20) BUN 45 H (7-17) mg/dL Creatinine 1.4 H (0.7-1.2) mg/dL Est GFR ( Amer) 43 Est GFR (Non-Af Amer) 36 Random Glucose 128 H (65-105) mg/dL Lactic Acid (0.7-2.1) mmol/L Calcium 7.9 L (8.6-10.4) mg/dl Phosphorus (2.5-4.5) mg/dL Magnesium 2.2 (1.6-2.3) mg/dL Total Bilirubin 2.7 H (0.2-1.3) mg/dL AST 25 (14-36) U/L ALT 22 (9-52) U/L Alkaline Phosphatase 30 L D (38-126) U/L Total Creatine Kinase (30-135) U/L CK-MB (Mass) (0.0-3.38) ng/mL Troponin I (0.00-0.120) ng/mL NT-Pro-B Natriuret Pep (0-900) pg/mL Total Protein 4.9 L (6.3-8.3) g/dL Albumin 2.5 L (3.5-5.0) g/dL Globulin 2.4 (2.2-3.9) gm/dL Albumin/Globulin Ratio 1.1 (1.0-2.1) Arterial Blood Potassium (3.6-5.2) mmol/L Urine Color Yellow (YELLOW) Urine Clarity Hazy (Clear) Urine pH 5.0 (5.0-8.0) Ur Specific [place] 1.016 (1.003-1.030) Urine Protein Negative (NEGATIVE) mg/dL Urine Glucose (UA) Normal (Normal) mg/dL Urine Ketones Negative (NEGATIVE) mg/dL Urine Blood 1+ H (NEGATIVE) Urine Nitrate Negative (NEGATIVE) Urine Bilirubin Negative (NEGATIVE) Urine Urobilinogen 2.0 H (0.2-1.0) mg/dL Ur Leukocyte Esterase Neg (Negative) Nehemiah/uL Urine WBC (Auto) 14 H (0-5) /hpf Urine RBC (Auto) 11 H (0-3) /hpf Urine WBC Clumps (Auto) Few H (NONE) /hpf Ur Squamous Epith Cells < 1 (0-5) /hpf Calcium Oxalate Crystal (<OCC) /hpf Urine Bacteria Rare (<OCC) Hyaline Casts 11-20 H (0-2) /lpf Urine Yeast (Budding) Many H (NEGATIVE) /hpf Fluid Source Fluid Appearance (CLEAR) Fluid WBC (0.0-300.0) /mm3 Fluid RBC (0.0-0.0) /mm3 Fluid Tot Cell Count (0-0) Fluid Neutrophils (0-0) % Fluid Lymphocytes (0-0) % Fld Monocyte/Macrophag (0-0) % Fluid Comment 02/26/18 02/26/18 02/25/18 Range/Units 04:20 00:43 22:14 WBC 9.3 (4.8-10.8) K/uL RBC 4.27 (3.80-5.20) Mil/uL Hgb 10.3 L (11.0-16.0) g/dL Hct 32.7 L (34.0-47.0) % MCV 76.5 L (81.0-99.0) fL MCH 24.1 L (27.0-31.0) pg MCHC 31.5 L (33.0-37.0) g/dL RDW 24.6 H (11.5-14.5) % Plt Count 130 (130-400) K/uL MPV 9.4 (7.2-11.7) fL Neut % (Auto) 88.6 H (50.0-75.0) % Lymph % (Auto) 5.8 L (20.0-40.0) % [place] % (Auto) 5.0 (0.0-10.0) % Eos % (Auto) 0.1 (0.0-4.0) % Baso % (Auto) 0.5 (0.0-2.0) % Neut # (Auto) 8.2 H (1.8-7.0) K/uL Lymph # (Auto) 0.5 L (1.0-4.3) K/uL [place] # (Auto) 0.5 (0.0-0.8) K/uL Eos # (Auto) 0.0 (0.0-0.7) K/uL Baso # (Auto) 0.0 (0.0-0.2) K/uL Neutrophils % (Manual) 92 H (50-75) % Lymphocytes % (Manual) 3 L (20-40) % Reactive Lymphs % 2 H (0-0) % Monocytes % (Manual) 3 (0-10) % Platelet Estimate Normal (NORMAL) Large Platelets Polychromasia Slight Hypochromasia (manual) Poikilocytosis (manual Anisocytosis (manual) Moderate Microcytosis (manual) Slight Target Cells Ovalocytes Slight Schistocytes PT (9.7-12.2) SECONDS INR APTT (21-34) SECONDS D-Dimer, Quantitative (0-243) ng/mlDDU Puncture Site Rr pCO2 36 (35-45) mm/Hg pO2 282 H (80-100) mm/Hg HCO3 25.3 (21-28) mmol/L ABG pH 7.44 (7.35-7.45) ABG Total CO2 25.6 (22-28) mmol/L ABG O2 Saturation 100.1 H (95-98) % ABG Base Excess 0.5 (-2.0-3.0) mmol/L ABG Hemoglobin 10.3 L (11.7-17.4) g/dL ABG Carboxyhemoglobin 2.1 H (0.5-1.5) % POC ABG HHb (Measured) -0.1 L (0.0-5.0) % ABG Methemoglobin 0.4 (0.0-3.0) % Pawel Test Pos ABG Potassium (3.6-5.2) mmol/L A-a O2 Difference 386.0 mm/Hg Respiratory Index 1.4 Hgb O2 Saturation 97.5 (95.0-98.0) % Sodium (132-148) mmol/l Chloride (98-107) mmol/L Glucose (65-105) mg/dl Lactate (0.7-2.1) mmol/L Liter Flow Vent Mode Prvc Mechanical Rate 20 FiO2 100.0 % Tidal Volume 450 PEEP 5 Crit Value Called To Crit Value Called By Crit Value Read Back Blood Gas Notified Time Potassium (3.6-5.2) mmol/L Carbon Dioxide (22-30) mmol/L Anion Gap (10-20) BUN (7-17) mg/dL Creatinine (0.7-1.2) mg/dL Est GFR ( Amer) Est GFR (Non-Af Amer) Random Glucose (65-105) mg/dL Lactic Acid 1.2 (0.7-2.1) mmol/L Calcium (8.6-10.4) mg/dl Phosphorus (2.5-4.5) mg/dL Magnesium (1.6-2.3) mg/dL Total Bilirubin (0.2-1.3) mg/dL AST (14-36) U/L ALT (9-52) U/L Alkaline Phosphatase (38-126) U/L Total Creatine Kinase (30-135) U/L CK-MB (Mass) (0.0-3.38) ng/mL Troponin I (0.00-0.120) ng/mL NT-Pro-B Natriuret Pep (0-900) pg/mL Total Protein (6.3-8.3) g/dL Albumin (3.5-5.0) g/dL Globulin (2.2-3.9) gm/dL Albumin/Globulin Ratio (1.0-2.1) Arterial Blood Potassium (3.6-5.2) mmol/L Urine Color (YELLOW) Urine Clarity (Clear) Urine pH (5.0-8.0) Ur Specific [place] (1.003-1.030) Urine Protein (NEGATIVE) mg/dL Urine Glucose (UA) (Normal) mg/dL Urine Ketones (NEGATIVE) mg/dL Urine Blood (NEGATIVE) Urine Nitrate (NEGATIVE) Urine Bilirubin (NEGATIVE) Urine Urobilinogen (0.2-1.0) mg/dL Ur Leukocyte Esterase (Negative) Nehemiah/uL Urine WBC (Auto) (0-5) /hpf Urine RBC (Auto) (0-3) /hpf Urine WBC Clumps (Auto) (NONE) /hpf Ur Squamous Epith Cells (0-5) /hpf Calcium Oxalate Crystal (<OCC) /hpf Urine Bacteria (<OCC) Hyaline Casts (0-2) /lpf Urine Yeast (Budding) (NEGATIVE) /hpf Fluid Source Fluid Appearance (CLEAR) Fluid WBC (0.0-300.0) /mm3 Fluid RBC (0.0-0.0) /mm3 Fluid Tot Cell Count (0-0) Fluid Neutrophils (0-0) % Fluid Lymphocytes (0-0) % Fld Monocyte/Macrophag (0-0) % Fluid Comment 02/25/18 02/25/18 02/25/18 Range/Units 21:16 21:16 18:25 WBC (4.8-10.8) K/uL RBC (3.80-5.20) Mil/uL Hgb (11.0-16.0) g/dL Hct (34.0-47.0) % MCV (81.0-99.0) fL MCH (27.0-31.0) pg MCHC (33.0-37.0) g/dL RDW (11.5-14.5) % Plt Count (130-400) K/uL MPV (7.2-11.7) fL Neut % (Auto) (50.0-75.0) % Lymph % (Auto) (20.0-40.0) % [place] % (Auto) (0.0-10.0) % Eos % (Auto) (0.0-4.0) % Baso % (Auto) (0.0-2.0) % Neut # (Auto) (1.8-7.0) K/uL Lymph # (Auto) (1.0-4.3) K/uL [place] # (Auto) (0.0-0.8) K/uL Eos # (Auto) (0.0-0.7) K/uL Baso # (Auto) (0.0-0.2) K/uL Neutrophils % (Manual) (50-75) % Lymphocytes % (Manual) (20-40) % Reactive Lymphs % (0-0) % Monocytes % (Manual) (0-10) % Platelet Estimate (NORMAL) Large Platelets Polychromasia Hypochromasia (manual) Poikilocytosis (manual Anisocytosis (manual) Microcytosis (manual) Target Cells Ovalocytes Schistocytes PT (9.7-12.2) SECONDS INR APTT (21-34) SECONDS D-Dimer, Quantitative (0-243) ng/mlDDU Puncture Site Rba pCO2 32 L (35-45) mm/Hg pO2 221 H (80-100) mm/Hg HCO3 28.4 H (21-28) mmol/L ABG pH 7.53 H (7.35-7.45) ABG Total CO2 27.7 (22-28) mmol/L ABG O2 Saturation 99.5 H (95-98) % ABG Base Excess 4.4 H (-2.0-3.0) mmol/L ABG Hemoglobin (11.7-17.4) g/dL ABG Carboxyhemoglobin (0.5-1.5) % POC ABG HHb (Measured) (0.0-5.0) % ABG Methemoglobin (0.0-3.0) % Pawel Test Na ABG Potassium 3.6 (3.6-5.2) mmol/L A-a O2 Difference 452.0 mm/Hg Respiratory Index 2.0 Hgb O2 Saturation (95.0-98.0) % Sodium 144.0 (132-148) mmol/l Chloride 112.0 H (98-107) mmol/L Glucose 110 H (65-105) mg/dl Lactate 1.5 (0.7-2.1) mmol/L Liter Flow Vent Mode Prvc Mechanical Rate 20 FiO2 100.0 % Tidal Volume 450 PEEP 5 Crit Value Called To Crit Value Called By Crit Value Read Back Blood Gas Notified Time Potassium (3.6-5.2) mmol/L Carbon Dioxide (22-30) mmol/L Anion Gap (10-20) BUN (7-17) mg/dL Creatinine (0.7-1.2) mg/dL Est GFR ( Amer) Est GFR (Non-Af Amer) Random Glucose (65-105) mg/dL Lactic Acid 1.6 (0.7-2.1) mmol/L Calcium (8.6-10.4) mg/dl Phosphorus (2.5-4.5) mg/dL Magnesium (1.6-2.3) mg/dL Total Bilirubin (0.2-1.3) mg/dL AST (14-36) U/L ALT (9-52) U/L Alkaline Phosphatase (38-126) U/L Total Creatine Kinase (30-135) U/L CK-MB (Mass) (0.0-3.38) ng/mL Troponin I (0.00-0.120) ng/mL NT-Pro-B Natriuret Pep (0-900) pg/mL Total Protein (6.3-8.3) g/dL Albumin (3.5-5.0) g/dL Globulin (2.2-3.9) gm/dL Albumin/Globulin Ratio (1.0-2.1) Arterial Blood Potassium 3.6 (3.6-5.2) mmol/L Urine Color Yellow (YELLOW) Urine Clarity Hazy (Clear) Urine pH 5.0 (5.0-8.0) Ur Specific [place] 1.026 (1.003-1.030) Urine Protein 1+ H (NEGATIVE) mg/dL Urine Glucose (UA) Normal (Normal) mg/dL Urine Ketones Negative (NEGATIVE) mg/dL Urine Blood 3+ H (NEGATIVE) Urine Nitrate Negative (NEGATIVE) Urine Bilirubin Negative (NEGATIVE) Urine Urobilinogen 4.0 H (0.2-1.0) mg/dL Ur Leukocyte Esterase 2+ H (Negative) Nehemiah/uL Urine WBC (Auto) 19 H (0-5) /hpf Urine RBC (Auto) 11 H (0-3) /hpf Urine WBC Clumps (Auto) (NONE) /hpf Ur Squamous Epith Cells 3 (0-5) /hpf Calcium Oxalate Crystal Occ H (<OCC) /hpf Urine Bacteria Occ H (<OCC) Hyaline Casts 0-2 (0-2) /lpf Urine Yeast (Budding) (NEGATIVE) /hpf Fluid Source Fluid Appearance (CLEAR) Fluid WBC (0.0-300.0) /mm3 Fluid RBC (0.0-0.0) /mm3 Fluid Tot Cell Count (0-0) Fluid Neutrophils (0-0) % Fluid Lymphocytes (0-0) % Fld Monocyte/Macrophag (0-0) % Fluid Comment 02/25/18 02/25/18 02/25/18 Range/Units 17:01 14:03 14:03 WBC (4.8-10.8) K/uL RBC (3.80-5.20) Mil/uL Hgb (11.0-16.0) g/dL Hct (34.0-47.0) % MCV (81.0-99.0) fL MCH (27.0-31.0) pg MCHC (33.0-37.0) g/dL RDW (11.5-14.5) % Plt Count (130-400) K/uL MPV (7.2-11.7) fL Neut % (Auto) (50.0-75.0) % Lymph % (Auto) (20.0-40.0) % [place] % (Auto) (0.0-10.0) % Eos % (Auto) (0.0-4.0) % Baso % (Auto) (0.0-2.0) % Neut # (Auto) (1.8-7.0) K/uL Lymph # (Auto) (1.0-4.3) K/uL [place] # (Auto) (0.0-0.8) K/uL Eos # (Auto) (0.0-0.7) K/uL Baso # (Auto) (0.0-0.2) K/uL Neutrophils % (Manual) (50-75) % Lymphocytes % (Manual) (20-40) % Reactive Lymphs % (0-0) % Monocytes % (Manual) (0-10) % Platelet Estimate (NORMAL) Large Platelets Polychromasia Hypochromasia (manual) Poikilocytosis (manual Anisocytosis (manual) Microcytosis (manual) Target Cells Ovalocytes Schistocytes PT (9.7-12.2) SECONDS INR APTT (21-34) SECONDS D-Dimer, Quantitative (0-243) ng/mlDDU Puncture Site pCO2 (35-45) mm/Hg pO2 (80-100) mm/Hg HCO3 (21-28) mmol/L ABG pH (7.35-7.45) ABG Total CO2 (22-28) mmol/L ABG O2 Saturation (95-98) % ABG Base Excess (-2.0-3.0) mmol/L ABG Hemoglobin (11.7-17.4) g/dL ABG Carboxyhemoglobin (0.5-1.5) % POC ABG HHb (Measured) (0.0-5.0) % ABG Methemoglobin (0.0-3.0) % Pawel Test ABG Potassium (3.6-5.2) mmol/L A-a O2 Difference mm/Hg Respiratory Index Hgb O2 Saturation (95.0-98.0) % Sodium 143 (132-148) mmol/l Chloride 104 (98-107) mmol/L Glucose (65-105) mg/dl Lactate (0.7-2.1) mmol/L Liter Flow Vent Mode Mechanical Rate FiO2 % Tidal Volume PEEP Crit Value Called To Crit Value Called By Crit Value Read Back Blood Gas Notified Time Potassium 3.9 (3.6-5.2) mmol/L Carbon Dioxide 27 (22-30) mmol/L Anion Gap 16 (10-20) BUN 40 H (7-17) mg/dL Creatinine 1.3 H (0.7-1.2) mg/dL Est GFR ( Amer) 47 Est GFR (Non-Af Amer) 39 Random Glucose 106 H (65-105) mg/dL Lactic Acid 1.5 2.4 H (0.7-2.1) mmol/L Calcium 8.0 L (8.6-10.4) mg/dl Phosphorus 4.1 (2.5-4.5) mg/dL Magnesium 2.6 H (1.6-2.3) mg/dL Total Bilirubin (0.2-1.3) mg/dL AST (14-36) U/L ALT (9-52) U/L Alkaline Phosphatase (38-126) U/L Total Creatine Kinase (30-135) U/L CK-MB (Mass) (0.0-3.38) ng/mL Troponin I 0.0660 (0.00-0.120) ng/mL NT-Pro-B Natriuret Pep (0-900) pg/mL Total Protein (6.3-8.3) g/dL Albumin (3.5-5.0) g/dL Globulin (2.2-3.9) gm/dL Albumin/Globulin Ratio (1.0-2.1) Arterial Blood Potassium (3.6-5.2) mmol/L Urine Color (YELLOW) Urine Clarity (Clear) Urine pH (5.0-8.0) Ur Specific [place] (1.003-1.030) Urine Protein (NEGATIVE) mg/dL Urine Glucose (UA) (Normal) mg/dL Urine Ketones (NEGATIVE) mg/dL Urine Blood (NEGATIVE) Urine Nitrate (NEGATIVE) Urine Bilirubin (NEGATIVE) Urine Urobilinogen (0.2-1.0) mg/dL Ur Leukocyte Esterase (Negative) Nehemiah/uL Urine WBC (Auto) (0-5) /hpf Urine RBC (Auto) (0-3) /hpf Urine WBC Clumps (Auto) (NONE) /hpf Ur Squamous Epith Cells (0-5) /hpf Calcium Oxalate Crystal (<OCC) /hpf Urine Bacteria (<OCC) Hyaline Casts (0-2) /lpf Urine Yeast (Budding) (NEGATIVE) /hpf Fluid Source Fluid Appearance (CLEAR) Fluid WBC (0.0-300.0) /mm3 Fluid RBC (0.0-0.0) /mm3 Fluid Tot Cell Count (0-0) Fluid Neutrophils (0-0) % Fluid Lymphocytes (0-0) % Fld Monocyte/Macrophag (0-0) % Fluid Comment 02/25/18 02/25/18 02/25/18 Range/Units 14:03 12:53 12:50 WBC 10.6 (4.8-10.8) K/uL RBC 4.38 (3.80-5.20) Mil/uL Hgb 10.6 L (11.0-16.0) g/dL Hct 33.6 L (34.0-47.0) % MCV 76.8 L (81.0-99.0) fL MCH 24.3 L (27.0-31.0) pg MCHC 31.6 L (33.0-37.0) g/dL RDW 24.6 H (11.5-14.5) % Plt Count 160 (130-400) K/uL MPV 9.3 (7.2-11.7) fL Neut % (Auto) 92.1 H (50.0-75.0) % Lymph % (Auto) 3.2 L (20.0-40.0) % [place] % (Auto) 4.6 (0.0-10.0) % Eos % (Auto) 0.0 (0.0-4.0) % Baso % (Auto) 0.1 (0.0-2.0) % Neut # (Auto) 9.8 H (1.8-7.0) K/uL Lymph # (Auto) 0.3 L (1.0-4.3) K/uL [place] # (Auto) 0.5 (0.0-0.8) K/uL Eos # (Auto) 0.0 (0.0-0.7) K/uL Baso # (Auto) 0.0 (0.0-0.2) K/uL Neutrophils % (Manual) (50-75) % Lymphocytes % (Manual) (20-40) % Reactive Lymphs % (0-0) % Monocytes % (Manual) (0-10) % Platelet Estimate (NORMAL) Large Platelets Polychromasia Hypochromasia (manual) Poikilocytosis (manual Anisocytosis (manual) Microcytosis (manual) Target Cells Ovalocytes Schistocytes PT 18.6 H (9.7-12.2) SECONDS INR 1.7 APTT 35 H (21-34) SECONDS D-Dimer, Quantitative (0-243) ng/mlDDU Puncture Site pCO2 (35-45) mm/Hg pO2 (80-100) mm/Hg HCO3 (21-28) mmol/L ABG pH (7.35-7.45) ABG Total CO2 (22-28) mmol/L ABG O2 Saturation (95-98) % ABG Base Excess (-2.0-3.0) mmol/L ABG Hemoglobin (11.7-17.4) g/dL ABG Carboxyhemoglobin (0.5-1.5) % POC ABG HHb (Measured) (0.0-5.0) % ABG Methemoglobin (0.0-3.0) % Pawel Test ABG Potassium (3.6-5.2) mmol/L A-a O2 Difference mm/Hg Respiratory Index Hgb O2 Saturation (95.0-98.0) % Sodium (132-148) mmol/l Chloride (98-107) mmol/L Glucose (65-105) mg/dl Lactate (0.7-2.1) mmol/L Liter Flow Vent Mode Mechanical Rate FiO2 % Tidal Volume PEEP Crit Value Called To Crit Value Called By Crit Value Read Back Blood Gas Notified Time Potassium (3.6-5.2) mmol/L Carbon Dioxide (22-30) mmol/L Anion Gap (10-20) BUN (7-17) mg/dL Creatinine (0.7-1.2) mg/dL Est GFR ( Amer) Est GFR (Non-Af Amer) Random Glucose (65-105) mg/dL Lactic Acid (0.7-2.1) mmol/L Calcium (8.6-10.4) mg/dl Phosphorus (2.5-4.5) mg/dL Magnesium (1.6-2.3) mg/dL Total Bilirubin (0.2-1.3) mg/dL AST (14-36) U/L ALT (9-52) U/L Alkaline Phosphatase (38-126) U/L Total Creatine Kinase (30-135) U/L CK-MB (Mass) (0.0-3.38) ng/mL Troponin I (0.00-0.120) ng/mL NT-Pro-B Natriuret Pep (0-900) pg/mL Total Protein (6.3-8.3) g/dL Albumin (3.5-5.0) g/dL Globulin (2.2-3.9) gm/dL Albumin/Globulin Ratio (1.0-2.1) Arterial Blood Potassium (3.6-5.2) mmol/L Urine Color (YELLOW) Urine Clarity (Clear) Urine pH (5.0-8.0) Ur Specific [place] (1.003-1.030) Urine Protein (NEGATIVE) mg/dL Urine Glucose (UA) (Normal) mg/dL Urine Ketones (NEGATIVE) mg/dL Urine Blood (NEGATIVE) Urine Nitrate (NEGATIVE) Urine Bilirubin (NEGATIVE) Urine Urobilinogen (0.2-1.0) mg/dL Ur Leukocyte Esterase (Negative) Nehemiah/uL Urine WBC (Auto) (0-5) /hpf Urine RBC (Auto) (0-3) /hpf Urine WBC Clumps (Auto) (NONE) /hpf Ur Squamous Epith Cells (0-5) /hpf Calcium Oxalate Crystal (<OCC) /hpf Urine Bacteria (<OCC) Hyaline Casts (0-2) /lpf Urine Yeast (Budding) (NEGATIVE) /hpf Fluid Source Pleural Fluid Appearance Cloudy (CLEAR) Fluid WBC 243.0 (0.0-300.0) /mm3 Fluid RBC 02272.0 H (0.0-0.0) /mm3 Fluid Tot Cell Count 100 H (0-0) Fluid Neutrophils 44.0 H (0-0) % Fluid Lymphocytes 40.0 H (0-0) % Fld Monocyte/Macrophag 16 H (0-0) % Fluid Comment 02/25/18 02/25/18 02/25/18 Range/Units 10:39 10:39 10:39 WBC 12.9 H (4.8-10.8) K/uL RBC 5.09 (3.80-5.20) Mil/uL Hgb 12.1 (11.0-16.0) g/dL Hct 39.2 (34.0-47.0) % MCV 77.0 L (81.0-99.0) fL MCH 23.7 L (27.0-31.0) pg MCHC 30.8 L (33.0-37.0) g/dL RDW 24.4 H (11.5-14.5) % Plt Count 216 (130-400) K/uL MPV 9.1 (7.2-11.7) fL Neut % (Auto) 86.2 H (50.0-75.0) % Lymph % (Auto) 5.3 L (20.0-40.0) % [place] % (Auto) 8.4 (0.0-10.0) % Eos % (Auto) 0.0 (0.0-4.0) % Baso % (Auto) 0.1 (0.0-2.0) % Neut # (Auto) 11.1 H (1.8-7.0) K/uL Lymph # (Auto) 0.7 L (1.0-4.3) K/uL [place] # (Auto) 1.1 H (0.0-0.8) K/uL Eos # (Auto) 0.0 (0.0-0.7) K/uL Baso # (Auto) 0.0 (0.0-0.2) K/uL Neutrophils % (Manual) 88 H (50-75) % Lymphocytes % (Manual) 5 L (20-40) % Reactive Lymphs % (0-0) % Monocytes % (Manual) 7 (0-10) % Platelet Estimate Normal (NORMAL) Large Platelets Present Polychromasia Slight Hypochromasia (manual) Moderate Poikilocytosis (manual Slight Anisocytosis (manual) Moderate Microcytosis (manual) Slight Target Cells Slight Ovalocytes Slight Schistocytes Slight PT (9.7-12.2) SECONDS INR APTT (21-34) SECONDS D-Dimer, Quantitative 1684 H (0-243) ng/mlDDU Puncture Site pCO2 (35-45) mm/Hg pO2 (80-100) mm/Hg HCO3 (21-28) mmol/L ABG pH (7.35-7.45) ABG Total CO2 (22-28) mmol/L ABG O2 Saturation (95-98) % ABG Base Excess (-2.0-3.0) mmol/L ABG Hemoglobin (11.7-17.4) g/dL ABG Carboxyhemoglobin (0.5-1.5) % POC ABG HHb (Measured) (0.0-5.0) % ABG Methemoglobin (0.0-3.0) % Pawel Test ABG Potassium (3.6-5.2) mmol/L A-a O2 Difference mm/Hg Respiratory Index Hgb O2 Saturation (95.0-98.0) % Sodium 144 (132-148) mmol/l Chloride 104 (98-107) mmol/L Glucose (65-105) mg/dl Lactate (0.7-2.1) mmol/L Liter Flow Vent Mode Mechanical Rate FiO2 % Tidal Volume PEEP Crit Value Called To Crit Value Called By Crit Value Read Back Blood Gas Notified Time Potassium 4.0 (3.6-5.2) mmol/L Carbon Dioxide 27 (22-30) mmol/L Anion Gap 17 (10-20) BUN 38 H (7-17) mg/dL Creatinine 1.3 H (0.7-1.2) mg/dL Est GFR ( Amer) 47 Est GFR (Non-Af Amer) 39 Random Glucose 88 (65-105) mg/dL Lactic Acid (0.7-2.1) mmol/L Calcium 8.7 (8.6-10.4) mg/dl Phosphorus 4.5 (2.5-4.5) mg/dL Magnesium 2.1 (1.6-2.3) mg/dL Total Bilirubin 3.3 H (0.2-1.3) mg/dL AST 66 H D (14-36) U/L ALT 24 (9-52) U/L Alkaline Phosphatase 51 (38-126) U/L Total Creatine Kinase 339 H (30-135) U/L CK-MB (Mass) 2.78 (0.0-3.38) ng/mL Troponin I 0.0520 (0.00-0.120) ng/mL NT-Pro-B Natriuret Pep 34985 H (0-900) pg/mL Total Protein 6.0 L (6.3-8.3) g/dL Albumin 2.9 L (3.5-5.0) g/dL Globulin 3.1 (2.2-3.9) gm/dL Albumin/Globulin Ratio 0.9 L (1.0-2.1) Arterial Blood Potassium (3.6-5.2) mmol/L Urine Color (YELLOW) Urine Clarity (Clear) Urine pH (5.0-8.0) Ur Specific [place] (1.003-1.030) Urine Protein (NEGATIVE) mg/dL Urine Glucose (UA) (Normal) mg/dL Urine Ketones (NEGATIVE) mg/dL Urine Blood (NEGATIVE) Urine Nitrate (NEGATIVE) Urine Bilirubin (NEGATIVE) Urine Urobilinogen (0.2-1.0) mg/dL Ur Leukocyte Esterase (Negative) [place]hem[place]/uL Urine WBC (Auto) (0-5) /hpf Urine RBC (Auto) (0-3) /hpf Urine WBC Clumps (Auto) (NONE) /hpf Ur Squamous Epith Cells (0-5) /hpf Calcium Oxalate Crystal (<OCC) /hpf Urine Bacteria (<OCC) Hyaline Casts (0-2) /lpf Urine Yeast (Budding) (NEGATIVE) /hpf Fluid Source Fluid Appearance (CLEAR) Fluid WBC (0.0-300.0) /mm3 Fluid RBC (0.0-0.0) /mm3 Fluid Tot Cell Count (0-0) Fluid Neutrophils (0-0) % Fluid Lymphocytes (0-0) % Fld Monocyte/Macrophag (0-0) % Fluid Comment 02/25/18 02/25/18 Range/Units 10:39 10:21 WBC (4.8-10.8) K/uL RBC (3.80-5.20) Mil/uL Hgb (11.0-16.0) g/dL Hct (34.0-47.0) % MCV (81.0-99.0) fL MCH (27.0-31.0) pg MCHC (33.0-37.0) g/dL RDW (11.5-14.5) % Plt Count (130-400) K/uL MPV (7.2-11.7) fL Neut % (Auto) (50.0-75.0) % Lymph % (Auto) (20.0-40.0) % [place] % (Auto) (0.0-10.0) % Eos % (Auto) (0.0-4.0) % Baso % (Auto) (0.0-2.0) % Neut # (Auto) (1.8-7.0) K/uL Lymph # (Auto) (1.0-4.3) K/uL [place] # (Auto) (0.0-0.8) K/uL Eos # (Auto) (0.0-0.7) K/uL Baso # (Auto) (0.0-0.2) K/uL Neutrophils % (Manual) (50-75) % Lymphocytes % (Manual) (20-40) % Reactive Lymphs % (0-0) % Monocytes % (Manual) (0-10) % Platelet Estimate (NORMAL) Large Platelets Polychromasia Hypochromasia (manual) Poikilocytosis (manual Anisocytosis (manual) Microcytosis (manual) Target Cells Ovalocytes Schistocytes PT (9.7-12.2) SECONDS INR APTT (21-34) SECONDS D-Dimer, Quantitative (0-243) ng/mlDDU Puncture Site Rra pCO2 40 (35-45) mm/Hg pO2 214 H (80-100) mm/Hg HCO3 25.5 (21-28) mmol/L ABG pH 7.41 (7.35-7.45) ABG Total CO2 26.6 (22-28) mmol/L ABG O2 Saturation 99.8 H (95-98) % ABG Base Excess 0.7 (-2.0-3.0) mmol/L ABG Hemoglobin (11.7-17.4) g/dL ABG Carboxyhemoglobin (0.5-1.5) % POC ABG HHb (Measured) (0.0-5.0) % ABG Methemoglobin (0.0-3.0) % Pawel Test Pos ABG Potassium 3.6 (3.6-5.2) mmol/L A-a O2 Difference 449.0 mm/Hg Respiratory Index 2.1 Hgb O2 Saturation (95.0-98.0) % Sodium 143 143.0 (132-148) mmol/l Chloride 104 109.0 H (98-107) mmol/L Glucose 91 (65-105) mg/dl Lactate 4.4 H* (0.7-2.1) mmol/L Liter Flow 15.0 Vent Mode Mechanical Rate FiO2 100.0 % Tidal Volume PEEP Crit Value Called To Dr saeed Crit Value Called By Chato bernabe coloring room worker Crit Value Read Back Y Blood Gas Notified Time 1027 Potassium 4.1 (3.6-5.2) mmol/L Carbon Dioxide 27 (22-30) mmol/L Anion Gap 15 (10-20) BUN 38 H (7-17) mg/dL Creatinine 1.3 H (0.7-1.2) mg/dL Est GFR ( Amer) 47 Est GFR (Non-Af Amer) 39 Random Glucose 89 (65-105) mg/dL Lactic Acid (0.7-2.1) mmol/L Calcium 8.6 (8.6-10.4) mg/dl Phosphorus (2.5-4.5) mg/dL Magnesium (1.6-2.3) mg/dL Total Bilirubin (0.2-1.3) mg/dL AST (14-36) U/L ALT (9-52) U/L Alkaline Phosphatase (38-126) U/L Total Creatine Kinase (30-135) U/L CK-MB (Mass) (0.0-3.38) ng/mL Troponin I (0.00-0.120) ng/mL NT-Pro-B Natriuret Pep (0-900) pg/mL Total Protein (6.3-8.3) g/dL Albumin (3.5-5.0) g/dL Globulin (2.2-3.9) gm/dL Albumin/Globulin Ratio (1.0-2.1) Arterial Blood Potassium 3.6 (3.6-5.2) mmol/L Urine Color (YELLOW) Urine Clarity (Clear) Urine pH (5.0-8.0) Ur Specific [place] (1.003-1.030) Urine Protein (NEGATIVE) mg/dL Urine Glucose (UA) (Normal) mg/dL Urine Ketones (NEGATIVE) mg/dL Urine Blood (NEGATIVE) Urine Nitrate (NEGATIVE) Urine Bilirubin (NEGATIVE) Urine Urobilinogen (0.2-1.0) mg/dL Ur Leukocyte Esterase (Negative) Nehemiah/uL Urine WBC (Auto) (0-5) /hpf Urine RBC (Auto) (0-3) /hpf Urine WBC Clumps (Auto) (NONE) /hpf Ur Squamous Epith Cells (0-5) /hpf Calcium Oxalate Crystal (<OCC) /hpf Urine Bacteria (<OCC) Hyaline Casts (0-2) /lpf Urine Yeast (Budding) (NEGATIVE) /hpf Fluid Source Fluid Appearance (CLEAR) Fluid WBC (0.0-300.0) /mm3 Fluid RBC (0.0-0.0) /mm3 Fluid Tot Cell Count (0-0) Fluid Neutrophils (0-0) % Fluid Lymphocytes (0-0) % Fld Monocyte/Macrophag (0-0) % Fluid Comment Laboratory Results - last 24 hr 02/25/18 02/25/18 02/25/18 10:21 10:39 10:39 WBC RBC Hgb Hct MCV MCH MCHC RDW Plt Count MPV Neut % (Auto) Lymph % (Auto) [place] % (Auto) Eos % (Auto) Baso % (Auto) Neut # (Auto) Lymph # (Auto) [place] # (Auto) Eos # (Auto) Baso # (Auto) Neutrophils % (Manual) Lymphocytes % (Manual) Reactive Lymphs % Monocytes % (Manual) Platelet Estimate Large Platelets Polychromasia Hypochromasia (manual) Poikilocytosis (manual Anisocytosis (manual) Microcytosis (manual) Target Cells Ovalocytes Schistocytes PT INR APTT D-Dimer, Quantitative Puncture Site Rra pCO2 40 pO2 214 H HCO3 25.5 ABG pH 7.41 ABG Total CO2 26.6 ABG O2 Saturation 99.8 H ABG Base Excess 0.7 ABG Hemoglobin ABG Carboxyhemoglobin POC ABG HHb (Measured) ABG Methemoglobin Pawel Test Pos ABG Potassium 3.6 A-a O2 Difference 449.0 Respiratory Index 2.1 Hgb O2 Saturation Sodium 143.0 143 144 Chloride 109.0 H 104 104 Glucose 91 Lactate 4.4 H* Liter Flow 15.0 Vent Mode Mechanical Rate FiO2 100.0 Tidal Volume PEEP Crit Value Called To Dr saeed Crit Value Called By Chato bernabe coloring room worker Crit Value Read Back Y Blood Gas Notified Time 1027 Potassium 4.1 4.0 Carbon Dioxide 27 27 Anion Gap 15 17 BUN 38 H 38 H Creatinine 1.3 H 1.3 H Est GFR ( Amer) 47 47 Est GFR (Non-Af Amer) 39 39 Random Glucose 89 88 Lactic Acid Calcium 8.6 8.7 Phosphorus 4.5 Magnesium 2.1 Total Bilirubin 3.3 H AST 66 H D ALT 24 Alkaline Phosphatase 51 Total Creatine Kinase 339 H CK-MB (Mass) 2.78 Troponin I 0.0520 NT-Pro-B Natriuret Pep 45672 H Total Protein 6.0 L Albumin 2.9 L Globulin 3.1 Albumin/Globulin Ratio 0.9 L Arterial Blood Potassium 3.6 Urine Color Urine Clarity Urine pH Ur Specific [place] Urine Protein Urine Glucose (UA) Urine Ketones Urine Blood Urine Nitrate Urine Bilirubin Urine Urobilinogen Ur Leukocyte Esterase Urine WBC (Auto) Urine RBC (Auto) Urine WBC Clumps (Auto) Ur Squamous Epith Cells Calcium Oxalate Crystal Urine Bacteria Hyaline Casts Urine Yeast (Budding) Fluid Source Fluid Appearance Fluid WBC Fluid RBC Fluid Tot Cell Count Fluid Neutrophils Fluid Lymphocytes Fld Monocyte/Macrophag Fluid Comment 11/22/18 11/22/18 11/22/18 10:39 10:39 12:50 WBC 12.9 H RBC 5.09 Hgb 12.1 Hct 39.2 MCV 77.0 L MCH 23.7 L MCHC 30.8 L RDW 24.4 H Plt Count 216 MPV 9.1 Neut % (Auto) 86.2 H Lymph % (Auto) 5.3 L [place] % (Auto) 8.4 Eos % (Auto) 0.0 Baso % (Auto) 0.1 Neut # (Auto) 11.1 H Lymph # (Auto) 0.7 L [place] # (Auto) 1.1 H Eos # (Auto) 0.0 Baso # (Auto) 0.0 Neutrophils % (Manual) 88 H Lymphocytes % (Manual) 5 L Reactive Lymphs % Monocytes % (Manual) 7 Platelet Estimate Normal Large Platelets Present Polychromasia Slight Hypochromasia (manual) Moderate Poikilocytosis (manual Slight Anisocytosis (manual) Moderate Microcytosis (manual) Slight Target Cells Slight Ovalocytes Slight Schistocytes Slight PT INR APTT D-Dimer, Quantitative 1684 H Puncture Site pCO2 pO2 HCO3 ABG pH ABG Total CO2 ABG O2 Saturation ABG Base Excess ABG Hemoglobin ABG Carboxyhemoglobin POC ABG HHb (Measured) ABG Methemoglobin Pawel Test ABG Potassium A-a O2 Difference Respiratory Index Hgb O2 Saturation Sodium Chloride Glucose Lactate Liter Flow Vent Mode Mechanical Rate FiO2 Tidal Volume PEEP Crit Value Called To Crit Value Called By Crit Value Read Back Blood Gas Notified Time Potassium Carbon Dioxide Anion Gap BUN Creatinine Est GFR ( Amer) Est GFR (Non-Af Amer) Random Glucose Lactic Acid Calcium Phosphorus Magnesium Total Bilirubin AST ALT Alkaline Phosphatase Total Creatine Kinase CK-MB (Mass) Troponin I NT-Pro-B Natriuret Pep Total Protein Albumin Globulin Albumin/Globulin Ratio Arterial Blood Potassium Urine Color Urine Clarity Urine pH Ur Specific [place] Urine Protein Urine Glucose (UA) Urine Ketones Urine Blood Urine Nitrate Urine Bilirubin Urine Urobilinogen Ur Leukocyte Esterase Urine WBC (Auto) Urine RBC (Auto) Urine WBC Clumps (Auto) Ur Squamous Epith Cells Calcium Oxalate Crystal Urine Bacteria Hyaline Casts Urine Yeast (Budding) Fluid Source Pleural Fluid Appearance Cloudy Fluid WBC 243.0 Fluid RBC 19633.0 H Fluid Tot Cell Count 100 H Fluid Neutrophils 44.0 H Fluid Lymphocytes 40.0 H Fld Monocyte/Macrophag 16 H Fluid Comment 02/25/18 02/25/18 02/25/18 12:53 14:03 14:03 WBC 10.6 RBC 4.38 Hgb 10.6 L Hct 33.6 L MCV 76.8 L MCH 24.3 L MCHC 31.6 L RDW 24.6 H Plt Count 160 MPV 9.3 Neut % (Auto) 92.1 H Lymph % (Auto) 3.2 L [place] % (Auto) 4.6 Eos % (Auto) 0.0 Baso % (Auto) 0.1 Neut # (Auto) 9.8 H Lymph # (Auto) 0.3 L [place] # (Auto) 0.5 Eos # (Auto) 0.0 Baso # (Auto) 0.0 Neutrophils % (Manual) Lymphocytes % (Manual) Reactive Lymphs % Monocytes % (Manual) Platelet Estimate Large Platelets Polychromasia Hypochromasia (manual) Poikilocytosis (manual Anisocytosis (manual) Microcytosis (manual) Target Cells Ovalocytes Schistocytes PT 18.6 H INR 1.7 APTT 35 H D-Dimer, Quantitative Puncture Site pCO2 pO2 HCO3 ABG pH ABG Total CO2 ABG O2 Saturation ABG Base Excess ABG Hemoglobin ABG Carboxyhemoglobin POC ABG HHb (Measured) ABG Methemoglobin Pawel Test ABG Potassium A-a O2 Difference Respiratory Index Hgb O2 Saturation Sodium 143 Chloride 104 Glucose Lactate Liter Flow Vent Mode Mechanical Rate FiO2 Tidal Volume PEEP Crit Value Called To Crit Value Called By Crit Value Read Back Blood Gas Notified Time Potassium 3.9 Carbon Dioxide 27 Anion Gap 16 BUN 40 H Creatinine 1.3 H Est GFR ( Amer) 47 Est GFR (Non-Af Amer) 39 Random Glucose 106 H Lactic Acid Calcium 8.0 L Phosphorus 4.1 Magnesium 2.6 H Total Bilirubin AST ALT Alkaline Phosphatase Total Creatine Kinase CK-MB (Mass) Troponin I 0.0660 NT-Pro-B Natriuret Pep Total Protein Albumin Globulin Albumin/Globulin Ratio Arterial Blood Potassium Urine Color Urine Clarity Urine pH Ur Specific [place] Urine Protein Urine Glucose (UA) Urine Ketones Urine Blood Urine Nitrate Urine Bilirubin Urine Urobilinogen Ur Leukocyte Esterase Urine WBC (Auto) Urine RBC (Auto) Urine WBC Clumps (Auto) Ur Squamous Epith Cells Calcium Oxalate Crystal Urine Bacteria Hyaline Casts Urine Yeast (Budding) Fluid Source Fluid Appearance Fluid WBC Fluid RBC Fluid Tot Cell Count Fluid Neutrophils Fluid Lymphocytes Fld Monocyte/Macrophag Fluid Comment 02/25/18 02/25/18 02/25/18 14:03 17:01 18:25 WBC RBC Hgb Hct MCV MCH MCHC RDW Plt Count MPV Neut % (Auto) Lymph % (Auto) [place] % (Auto) Eos % (Auto) Baso % (Auto) Neut # (Auto) Lymph # (Auto) [place] # (Auto) Eos # (Auto) Baso # (Auto) Neutrophils % (Manual) Lymphocytes % (Manual) Reactive Lymphs % Monocytes % (Manual) Platelet Estimate Large Platelets Polychromasia Hypochromasia (manual) Poikilocytosis (manual Anisocytosis (manual) Microcytosis (manual) Target Cells Ovalocytes Schistocytes PT INR APTT D-Dimer, Quantitative Puncture Site Rba pCO2 32 L pO2 221 H HCO3 28.4 H ABG pH 7.53 H ABG Total CO2 27.7 ABG O2 Saturation 99.5 H ABG Base Excess 4.4 H ABG Hemoglobin ABG Carboxyhemoglobin POC ABG HHb (Measured) ABG Methemoglobin Pawel Test Na ABG Potassium 3.6 A-a O2 Difference 452.0 Respiratory Index 2.0 Hgb O2 Saturation Sodium 144.0 Chloride 112.0 H Glucose 110 H Lactate 1.5 Liter Flow Vent Mode Prvc Mechanical Rate 20 FiO2 100.0 Tidal Volume 450 PEEP 5 Crit Value Called To Crit Value Called By Crit Value Read Back Blood Gas Notified Time Potassium Carbon Dioxide Anion Gap BUN Creatinine Est GFR ( Amer) Est GFR (Non-Af Amer) Random Glucose Lactic Acid 2.4 H 1.5 Calcium Phosphorus Magnesium Total Bilirubin AST ALT Alkaline Phosphatase Total Creatine Kinase CK-MB (Mass) Troponin I NT-Pro-B Natriuret Pep Total Protein Albumin Globulin Albumin/Globulin Ratio Arterial Blood Potassium 3.6 Urine Color Urine Clarity Urine pH Ur Specific [place] Urine Protein Urine Glucose (UA) Urine Ketones Urine Blood Urine Nitrate Urine Bilirubin Urine Urobilinogen Ur Leukocyte Esterase Urine WBC (Auto) Urine RBC (Auto) Urine WBC Clumps (Auto) Ur Squamous Epith Cells Calcium Oxalate Crystal Urine Bacteria Hyaline Casts Urine Yeast (Budding) Fluid Source Fluid Appearance Fluid WBC Fluid RBC Fluid Tot Cell Count Fluid Neutrophils Fluid Lymphocytes Fld Monocyte/Macrophag Fluid Comment 11/22/18 11/22/18 11/22/18 21:16 21:16 22:14 WBC 9.3 RBC 4.27 Hgb 10.3 L Hct 32.7 L MCV 76.5 L MCH 24.1 L MCHC 31.5 L RDW 24.6 H Plt Count 130 MPV 9.4 Neut % (Auto) 88.6 H Lymph % (Auto) 5.8 L [place] % (Auto) 5.0 Eos % (Auto) 0.1 Baso % (Auto) 0.5 Neut # (Auto) 8.2 H Lymph # (Auto) 0.5 L [place] # (Auto) 0.5 Eos # (Auto) 0.0 Baso # (Auto) 0.0 Neutrophils % (Manual) 92 H Lymphocytes % (Manual) 3 L Reactive Lymphs % 2 H Monocytes % (Manual) 3 Platelet Estimate Normal Large Platelets Polychromasia Slight Hypochromasia (manual) Poikilocytosis (manual Anisocytosis (manual) Moderate Microcytosis (manual) Slight Target Cells Ovalocytes Slight Schistocytes PT INR APTT D-Dimer, Quantitative Puncture Site pCO2 pO2 HCO3 ABG pH ABG Total CO2 ABG O2 Saturation ABG Base Excess ABG Hemoglobin ABG Carboxyhemoglobin POC ABG HHb (Measured) ABG Methemoglobin Pawel Test ABG Potassium A-a O2 Difference Respiratory Index Hgb O2 Saturation Sodium Chloride Glucose Lactate Liter Flow Vent Mode Mechanical Rate FiO2 Tidal Volume PEEP Crit Value Called To Crit Value Called By Crit Value Read Back Blood Gas Notified Time Potassium Carbon Dioxide Anion Gap BUN Creatinine Est GFR ( Amer) Est GFR (Non-Af Amer) Random Glucose Lactic Acid 1.6 Calcium Phosphorus Magnesium Total Bilirubin AST ALT Alkaline Phosphatase Total Creatine Kinase CK-MB (Mass) Troponin I NT-Pro-B Natriuret Pep Total Protein Albumin Globulin Albumin/Globulin Ratio Arterial Blood Potassium Urine Color Yellow Urine Clarity Hazy Urine pH 5.0 Ur Specific [place] 1.026 Urine Protein 1+ H Urine Glucose (UA) Normal Urine Ketones Negative Urine Blood 3+ H Urine Nitrate Negative Urine Bilirubin Negative Urine Urobilinogen 4.0 H Ur Leukocyte Esterase 2+ H Urine WBC (Auto) 19 H Urine RBC (Auto) 11 H Urine WBC Clumps (Auto) Ur Squamous Epith Cells 3 Calcium Oxalate Crystal Occ H Urine Bacteria Occ H Hyaline Casts 0-2 Urine Yeast (Budding) Fluid Source Fluid Appearance Fluid WBC Fluid RBC Fluid Tot Cell Count Fluid Neutrophils Fluid Lymphocytes Fld Monocyte/Macrophag Fluid Comment 02/26/18 02/26/18 02/26/18 00:43 04:20 06:22 WBC RBC Hgb Hct MCV MCH MCHC RDW Plt Count MPV Neut % (Auto) Lymph % (Auto) [place] % (Auto) Eos % (Auto) Baso % (Auto) Neut # (Auto) Lymph # (Auto) [place] # (Auto) Eos # (Auto) Baso # (Auto) Neutrophils % (Manual) Lymphocytes % (Manual) Reactive Lymphs % Monocytes % (Manual) Platelet Estimate Large Platelets Polychromasia Hypochromasia (manual) Poikilocytosis (manual Anisocytosis (manual) Microcytosis (manual) Target Cells Ovalocytes Schistocytes PT INR APTT D-Dimer, Quantitative Puncture Site Rr pCO2 36 pO2 282 H HCO3 25.3 ABG pH 7.44 ABG Total CO2 25.6 ABG O2 Saturation 100.1 H ABG Base Excess 0.5 ABG Hemoglobin 10.3 L ABG Carboxyhemoglobin 2.1 H POC ABG HHb (Measured) -0.1 L ABG Methemoglobin 0.4 Pawel Test Pos ABG Potassium A-a O2 Difference 386.0 Respiratory Index 1.4 Hgb O2 Saturation 97.5 Sodium 143 Chloride 103 Glucose Lactate Liter Flow Vent Mode Prvc Mechanical Rate 20 FiO2 100.0 Tidal Volume 450 PEEP 5 Crit Value Called To Crit Value Called By Crit Value Read Back Blood Gas Notified Time Potassium 3.5 L Carbon Dioxide 24 Anion Gap 19 BUN 45 H Creatinine 1.4 H Est GFR ( Amer) 43 Est GFR (Non-Af Amer) 36 Random Glucose 128 H Lactic Acid 1.2 Calcium 7.9 L Phosphorus Magnesium 2.2 Total Bilirubin 2.7 H AST 25 ALT 22 Alkaline Phosphatase 30 L D Total Creatine Kinase CK-MB (Mass) Troponin I NT-Pro-B Natriuret Pep Total Protein 4.9 L Albumin 2.5 L Globulin 2.4 Albumin/Globulin Ratio 1.1 Arterial Blood Potassium Urine Color Urine Clarity Urine pH Ur Specific [place] Urine Protein Urine Glucose (UA) Urine Ketones Urine Blood Urine Nitrate Urine Bilirubin Urine Urobilinogen Ur Leukocyte Esterase Urine WBC (Auto) Urine RBC (Auto) Urine WBC Clumps (Auto) Ur Squamous Epith Cells Calcium Oxalate Crystal Urine Bacteria Hyaline Casts Urine Yeast (Budding) Fluid Source Fluid Appearance Fluid WBC Fluid RBC Fluid Tot Cell Count Fluid Neutrophils Fluid Lymphocytes Fld Monocyte/Macrophag Fluid Comment 02/26/18 02/26/18 06:23 06:23 WBC 11.4 H RBC 4.32 Hgb 10.2 L Hct 33.4 L MCV 77.3 L MCH 23.7 L MCHC 30.6 L RDW 24.4 H Plt Count 120 L MPV 9.4 Neut % (Auto) 89.2 H Lymph % (Auto) 4.8 L [place] % (Auto) 5.9 Eos % (Auto) 0.0 Baso % (Auto) 0.1 Neut # (Auto) 10.2 H Lymph # (Auto) 0.5 L [place] # (Auto) 0.7 Eos # (Auto) 0.0 Baso # (Auto) 0.0 Neutrophils % (Manual) 97 H Lymphocytes % (Manual) 2 L Reactive Lymphs % Monocytes % (Manual) 1 Platelet Estimate Normal Large Platelets Polychromasia Slight Hypochromasia (manual) Moderate Poikilocytosis (manual Anisocytosis (manual) Moderate Microcytosis (manual) Target Cells Slight Ovalocytes Slight Schistocytes PT INR APTT D-Dimer, Quantitative Puncture Site pCO2 pO2 HCO3 ABG pH ABG Total CO2 ABG O2 Saturation ABG Base Excess ABG Hemoglobin ABG Carboxyhemoglobin POC ABG HHb (Measured) ABG Methemoglobin Pawel Test ABG Potassium A-a O2 Difference Respiratory Index Hgb O2 Saturation Sodium Chloride Glucose Lactate Liter Flow Vent Mode Mechanical Rate FiO2 Tidal Volume PEEP Crit Value Called To Crit Value Called By Crit Value Read Back Blood Gas Notified Time Potassium Carbon Dioxide Anion Gap BUN Creatinine Est GFR ( Amer) Est GFR (Non-Af Amer) Random Glucose Lactic Acid Calcium Phosphorus Magnesium Total Bilirubin AST ALT Alkaline Phosphatase Total Creatine Kinase CK-MB (Mass) Troponin I NT-Pro-B Natriuret Pep Total Protein Albumin Globulin Albumin/Globulin Ratio Arterial Blood Potassium Urine Color Yellow Urine Clarity Hazy Urine pH 5.0 Ur Specific [place] 1.016 Urine Protein Negative Urine Glucose (UA) Normal Urine Ketones Negative Urine Blood 1+ H Urine Nitrate Negative Urine Bilirubin Negative Urine Urobilinogen 2.0 H Ur Leukocyte Esterase Neg Urine WBC (Auto) 14 H Urine RBC (Auto) 11 H Urine WBC Clumps (Auto) Few H Ur Squamous Epith Cells < 1 Calcium Oxalate Crystal Urine Bacteria Rare Hyaline Casts 11-20 H Urine Yeast (Budding) Many H Fluid Source Fluid Appearance Fluid WBC Fluid RBC Fluid Tot Cell Count Fluid Neutrophils Fluid Lymphocytes Fld Monocyte/Macrophag Fluid Comment Critical Care Progress Note - Nutrition Nutrition: Nutrition Category Date Time Status NPO Diet [DIET] Diets 02/26/18 Breakfast Active Assessment/Plan - Assessment and Plan (Free Text) Assessment: 82 yo female admitted to ICU for sepsis, respiratory distress, and pleural effusion. Patient is intubated. Plan: Neuro: Rule out subdural hematoma s/p fall - On Precedex - CT Head (02/25): Mild chronic white matter ischemic changes. Previously noted scattered chronic bilateral basal nuclei lacunar type infarcts are less well seen on this study compared to prior exam. No acute intracranial hemorrhage. Moderate generalized volume loss. - Neurology consulted, Dr. Daniela Escobar: Pleural effusion - CXR (02/26): Support lines and tubes as above. Bilateral lower lobe atelectatic and or alveolar-type infiltrates with bilateral effusions left larg er than right. - CT Abdomen (02/25): Large bilateral pleural effusions and compressive atelectasis at the lung bases. Anasarca. Cholelithiasis. Diverticulosis. - ABG: PCO2 36, PO2 282, Ph 7.44 - Patient is intubated - Pulmonology consulted, Dr. Perry Ross Q4 - Acetylcysteine 20% 6mL Q12 - IR consulted, Dr. Aguilar - Plan for left thoracentesis today Cardiovascular: Heart failure with preserved EF - Echo (02/24): Normal LV systolic function, LVEF: 50%. Diastolic dysfunction. Calcified Aortic valve. Mild MR. Moderate to severe TR. - EKG (02/24): Atrial fibrillation @ 91 bpm - Cardiology consulted, Dr. velasquez Heme: Microcytic anemia - Hb/Hct: 10.2/33.4 - Continue to monitor H&H Renal: MEL - BUN/Cr: 45/1.4- trending up - Avoid nephrotoxins Endo: - No acute issues GI: - Tube feeds: Nepro Psych: - No acute issues ID: Sepsis - Code sepsis (02/25) - Zosyn 3.375g IV Q8 (Started on 02/25) - WBC: 11.4 - Lactate: 4.4 --> 1.5 - Patient afebrile Musculoskeletal: Shoulder dislocation - Ortho consulted, Dr. Reeves Prophylaxis: - Protonix 40mg PO QD - VTE and SCD's contraindications Case discussed with Dr. David Seth, PGY-1 <Matilde Valadez - Last Filed: 02/26/18 15:07> CCU Objective - Vital Signs / Intake & Output Vital Signs (Last 4 hours): Vital Signs Temp Pulse Resp BP Pulse Ox 02/26/18 14:21 68 20 111/82 94 L 02/26/18 14:00 74 20 95 02/26/18 13:51 67 20 113/84 02/26/18 13:37 72 20 93/67 L 02/26/18 13:21 82 15 104/83 94 L 02/26/18 13:00 63 20 97 02/26/18 12:51 72 19 106/76 95 02/26/18 12:21 69 20 100/69 94 L 02/26/18 12:00 97.9 F 69 20 95 02/26/18 11:51 74 20 95/65 L 02/26/18 11:21 74 19 110/81 95 Intake and Output (Last 8hrs): Intake & Output 02/26/18 02/26/18 02/26/18 06:59 14:59 22:59 Intake Total 173.2 236.3 Output Total 410 290 Balance -236.8 -53.7 Intake: IV 0 141 Intake, IV Amount 73.2 95.3 R jug. TLC medial port 43.2 43.2 R jug. TLC proximal port 30.0 52.1 Albumin 100 Output: Urine 410 290 Urethral ([place]) 310 290 Urine, Voided 100 Other: # Bowel Movements 0 0 - Medications Active Medications: Active Medications Generic Name Dose Route Start Last Admin Trade Name Freq PRN Reason Stop Dose Admin Acetaminophen 650 mg 02/24/18 15:47 Tylenol 325mg Tab PO Q6 PRN Pain, moderate (4-7) Acetylcysteine 6 ml 02/26/18 10:00 02/26/18 07:20 Acetylcysteine 20% INH 02/27/18 20:01 6 ml RQ12 KEV Administration Albumin Human 25 gm 02/26/18 13:00 02/26/18 15:03 Albumin Human 25% (12.5 Gm/50 Ml) IV 02/26/18 19:01 25 gm Q6H KEV Administration Albuterol/Ipratropium 3 ml 02/25/18 12:00 02/26/18 11:23 Duoneb 3 Mg/0.5 Mg (3 Ml) Ud INH 3 ml RQ4 KEV Administration Dexmedetomidine HCl 200 mcg/ 50 mls @ 5.44 mls/hr 02/25/18 13:41 02/26/18 13:53 Sodium Chloride IV 0.19 mcg/kg/hr TITR PRN 5.4 mls/hr Agitation Titration Protocol 0.2 MCG/KG/HR Norepinephrine Bitartrate 4 mg 250 mls @ 15 mls/hr 02/25/18 17:26 02/26/18 13:52 / Dextrose IV 1.86 mcg/min .[id number] PRN 7 mls/hr TITRATE PER MD ORDER Titration Protocol 4 MCG/MIN Piperacillin Sod/Tazobactam Sod 3.375 gm in 50 mls @ 100 mls/hr 02/25/18 19:00 02/26/18 11:06 Zosyn 3.375 Gm Iv Premix IVPB 100 mls/hr Q8H KEV Administration Protocol Pantoprazole Sodium 40 mg 02/26/18 15:00 Protonix Susp PO 0600 KEV Potassium Chloride 10 meq 02/26/18 11:00 02/26/18 11:06 Potassium Chloride Oral Soln PO 10 meq BID KEV Administration - Patient Studies Lab Studies: Microbiology Studies 02/25/18 14:07 Blood Culture - Preliminary Blood NO GROWTH AFTER 24 HOURS 02/25/18 14:07 Blood Culture - Preliminary Blood NO GROWTH AFTER 24 HOURS 02/25/18 12:50 Gram Stain - Final Body Fluid - Pleural Fluid Body Fluid Culture - Preliminary NO GROWTH AFTER 24 HOURS 02/25/18 16:48 Gram Stain - Final Trachasp 02/25/18 14:52 MRSA Culture (Admit) - Final Nose MRSA NOT DETECTED Lab Studies 02/26/18 02/26/18 02/26/18 Range/Units 12:23 10:14 06:23 WBC (4.8-10.8) K/uL RBC (3.80-5.20) Mil/uL Hgb (11.0-16.0) g/dL Hct (34.0-47.0) % MCV (81.0-99.0) fL MCH (27.0-31.0) pg MCHC (33.0-37.0) g/dL RDW (11.5-14.5) % Plt Count (130-400) K/uL MPV (7.2-11.7) fL Neut % (Auto) (50.0-75.0) % Lymph % (Auto) (20.0-40.0) % [place] % (Auto) (0.0-10.0) % Eos % (Auto) (0.0-4.0) % Baso % (Auto) (0.0-2.0) % Neut # (Auto) (1.8-7.0) K/uL Lymph # (Auto) (1.0-4.3) K/uL [place] # (Auto) (0.0-0.8) K/uL Eos # (Auto) (0.0-0.7) K/uL Baso # (Auto) (0.0-0.2) K/uL Neutrophils % (Manual) (50-75) % Lymphocytes % (Manual) (20-40) % Reactive Lymphs % (0-0) % Monocytes % (Manual) (0-10) % Platelet Estimate (NORMAL) Polychromasia Hypochromasia (manual) Anisocytosis (manual) Microcytosis (manual) Target Cells Ovalocytes Puncture Site pCO2 (35-45) mm/Hg pO2 (80-100) mm/Hg HCO3 (21-28) mmol/L ABG pH (7.35-7.45) ABG Total CO2 (22-28) mmol/L ABG O2 Saturation (95-98) % ABG Base Excess (-2.0-3.0) mmol/L ABG Hemoglobin (11.7-17.4) g/dL ABG Carboxyhemoglobin (0.5-1.5) % POC ABG HHb (Measured) (0.0-5.0) % ABG Methemoglobin (0.0-3.0) % Pawel Test ABG Potassium (3.6-5.2) mmol/L A-a O2 Difference mm/Hg Respiratory Index Hgb O2 Saturation (95.0-98.0) % Sodium (132-148) mmol/l Chloride (98-107) mmol/L Glucose (65-105) mg/dl Lactate (0.7-2.1) mmol/L Vent Mode Mechanical Rate FiO2 % Tidal Volume PEEP Potassium (3.6-5.2) mmol/L Carbon Dioxide (22-30) mmol/L Anion Gap (10-20) BUN (7-17) mg/dL Creatinine (0.7-1.2) mg/dL Est GFR ( Amer) Est GFR (Non-Af Amer) POC Glucose (mg/dL) 109 (65-110) mg/dL Random Glucose (65-105) mg/dL Lactic Acid (0.7-2.1) mmol/L Calcium (8.6-10.4) mg/dl Magnesium (1.6-2.3) mg/dL Total Bilirubin (0.2-1.3) mg/dL AST (14-36) U/L ALT (9-52) U/L Alkaline Phosphatase (38-126) U/L Total Protein (6.3-8.3) g/dL Albumin (3.5-5.0) g/dL Globulin (2.2-3.9) gm/dL Albumin/Globulin Ratio (1.0-2.1) Arterial Blood Potassium (3.6-5.2) mmol/L Urine Color Yellow (YELLOW) Urine Clarity Hazy (Clear) Urine pH 5.0 (5.0-8.0) Ur Specific [place] 1.016 (1.003-1.030) Urine Protein Negative (NEGATIVE) mg/dL Urine Glucose (UA) Normal (Normal) mg/dL Urine Ketones Negative (NEGATIVE) mg/dL Urine Blood 1+ H (NEGATIVE) Urine Nitrate Negative (NEGATIVE) Urine Bilirubin Negative (NEGATIVE) Urine Urobilinogen 2.0 H (0.2-1.0) mg/dL Ur Leukocyte Esterase Neg (Negative) Nehemiah/uL Urine WBC (Auto) 14 H (0-5) /hpf Urine RBC (Auto) 11 H (0-3) /hpf Urine WBC Clumps (Auto) Few H (NONE) /hpf Ur Squamous Epith Cells < 1 (0-5) /hpf Calcium Oxalate Crystal (<OCC) /hpf Urine Bacteria Rare (<OCC) Hyaline Casts 11-20 H (0-2) /lpf Urine Yeast (Budding) Many H (NEGATIVE) /hpf Random Vancomycin 5.9 ug/mL 02/26/18 02/26/18 02/26/18 Range/Units 06:23 06:22 04:20 WBC 11.4 H (4.8-10.8) K/uL RBC 4.32 (3.80-5.20) Mil/uL Hgb 10.2 L (11.0-16.0) g/dL Hct 33.4 L (34.0-47.0) % MCV 77.3 L (81.0-99.0) fL MCH 23.7 L (27.0-31.0) pg MCHC 30.6 L (33.0-37.0) g/dL RDW 24.4 H (11.5-14.5) % Plt Count 120 L (130-400) K/uL MPV 9.4 (7.2-11.7) fL Neut % (Auto) 89.2 H (50.0-75.0) % Lymph % (Auto) 4.8 L (20.0-40.0) % [place] % (Auto) 5.9 (0.0-10.0) % Eos % (Auto) 0.0 (0.0-4.0) % Baso % (Auto) 0.1 (0.0-2.0) % Neut # (Auto) 10.2 H (1.8-7.0) K/uL Lymph # (Auto) 0.5 L (1.0-4.3) K/uL [place] # (Auto) 0.7 (0.0-0.8) K/uL Eos # (Auto) 0.0 (0.0-0.7) K/uL Baso # (Auto) 0.0 (0.0-0.2) K/uL Neutrophils % (Manual) 97 H (50-75) % Lymphocytes % (Manual) 2 L (20-40) % Reactive Lymphs % (0-0) % Monocytes % (Manual) 1 (0-10) % Platelet Estimate Normal (NORMAL) Polychromasia Slight Hypochromasia (manual) Moderate Anisocytosis (manual) Moderate Microcytosis (manual) Target Cells Slight Ovalocytes Slight Puncture Site Rr pCO2 36 (35-45) mm/Hg pO2 282 H (80-100) mm/Hg HCO3 25.3 (21-28) mmol/L ABG pH 7.44 (7.35-7.45) ABG Total CO2 25.6 (22-28) mmol/L ABG O2 Saturation 100.1 H (95-98) % ABG Base Excess 0.5 (-2.0-3.0) mmol/L ABG Hemoglobin 10.3 L (11.7-17.4) g/dL ABG Carboxyhemoglobin 2.1 H (0.5-1.5) % POC ABG HHb (Measured) -0.1 L (0.0-5.0) % ABG Methemoglobin 0.4 (0.0-3.0) % Pawel Test Pos ABG Potassium (3.6-5.2) mmol/L A-a O2 Difference 386.0 mm/Hg Respiratory Index 1.4 Hgb O2 Saturation 97.5 (95.0-98.0) % Sodium 143 (132-148) mmol/l Chloride 103 (98-107) mmol/L Glucose (65-105) mg/dl Lactate (0.7-2.1) mmol/L Vent Mode Prvc Mechanical Rate 20 FiO2 100.0 % Tidal Volume 450 PEEP 5 Potassium 3.5 L (3.6-5.2) mmol/L Carbon Dioxide 24 (22-30) mmol/L Anion Gap 19 (10-20) BUN 45 H (7-17) mg/dL Creatinine 1.4 H (0.7-1.2) mg/dL Est GFR ( Amer) 43 Est GFR (Non-Af Amer) 36 POC Glucose (mg/dL) (65-110) mg/dL Random Glucose 128 H (65-105) mg/dL Lactic Acid (0.7-2.1) mmol/L Calcium 7.9 L (8.6-10.4) mg/dl Magnesium 2.2 (1.6-2.3) mg/dL Total Bilirubin 2.7 H (0.2-1.3) mg/dL AST 25 (14-36) U/L ALT 22 (9-52) U/L Alkaline Phosphatase 30 L D (38-126) U/L Total Protein 4.9 L (6.3-8.3) g/dL Albumin 2.5 L (3.5-5.0) g/dL Globulin 2.4 (2.2-3.9) gm/dL Albumin/Globulin Ratio 1.1 (1.0-2.1) Arterial Blood Potassium (3.6-5.2) mmol/L Urine Color (YELLOW) Urine Clarity (Clear) Urine pH (5.0-8.0) Ur Specific [place] (1.003-1.030) Urine Protein (NEGATIVE) mg/dL Urine Glucose (UA) (Normal) mg/dL Urine Ketones (NEGATIVE) mg/dL Urine Blood (NEGATIVE) Urine Nitrate (NEGATIVE) Urine Bilirubin (NEGATIVE) Urine Urobilinogen (0.2-1.0) mg/dL Ur Leukocyte Esterase (Negative) Nehemiah/uL Urine WBC (Auto) (0-5) /hpf Urine RBC (Auto) (0-3) /hpf Urine WBC Clumps (Auto) (NONE) /hpf Ur Squamous Epith Cells (0-5) /hpf Calcium Oxalate Crystal (<OCC) /hpf Urine Bacteria (<OCC) Hyaline Casts (0-2) /lpf Urine Yeast (Budding) (NEGATIVE) /hpf Random Vancomycin ug/mL 02/26/18 02/25/18 02/25/18 Range/Units 00:43 22:14 21:16 WBC 9.3 (4.8-10.8) K/uL RBC 4.27 (3.80-5.20) Mil/uL Hgb 10.3 L (11.0-16.0) g/dL Hct 32.7 L (34.0-47.0) % MCV 76.5 L (81.0-99.0) fL MCH 24.1 L (27.0-31.0) pg MCHC 31.5 L (33.0-37.0) g/dL RDW 24.6 H (11.5-14.5) % Plt Count 130 (130-400) K/uL MPV 9.4 (7.2-11.7) fL Neut % (Auto) 88.6 H (50.0-75.0) % Lymph % (Auto) 5.8 L (20.0-40.0) % [place] % (Auto) 5.0 (0.0-10.0) % Eos % (Auto) 0.1 (0.0-4.0) % Baso % (Auto) 0.5 (0.0-2.0) % Neut # (Auto) 8.2 H (1.8-7.0) K/uL Lymph # (Auto) 0.5 L (1.0-4.3) K/uL [place] # (Auto) 0.5 (0.0-0.8) K/uL Eos # (Auto) 0.0 (0.0-0.7) K/uL Baso # (Auto) 0.0 (0.0-0.2) K/uL Neutrophils % (Manual) 92 H (50-75) % Lymphocytes % (Manual) 3 L (20-40) % Reactive Lymphs % 2 H (0-0) % Monocytes % (Manual) 3 (0-10) % Platelet Estimate Normal (NORMAL) Polychromasia Slight Hypochromasia (manual) Anisocytosis (manual) Moderate Microcytosis (manual) Slight Target Cells Ovalocytes Slight Puncture Site pCO2 (35-45) mm/Hg pO2 (80-100) mm/Hg HCO3 (21-28) mmol/L ABG pH (7.35-7.45) ABG Total CO2 (22-28) mmol/L ABG O2 Saturation (95-98) % ABG Base Excess (-2.0-3.0) mmol/L ABG Hemoglobin (11.7-17.4) g/dL ABG Carboxyhemoglobin (0.5-1.5) % POC ABG HHb (Measured) (0.0-5.0) % ABG Methemoglobin (0.0-3.0) % Pawel Test ABG Potassium (3.6-5.2) mmol/L A-a O2 Difference mm/Hg Respiratory Index Hgb O2 Saturation (95.0-98.0) % Sodium (132-148) mmol/l Chloride (98-107) mmol/L Glucose (65-105) mg/dl Lactate (0.7-2.1) mmol/L Vent Mode Mechanical Rate FiO2 % Tidal Volume PEEP Potassium (3.6-5.2) mmol/L Carbon Dioxide (22-30) mmol/L Anion Gap (10-20) BUN (7-17) mg/dL Creatinine (0.7-1.2) mg/dL Est GFR ( Amer) Est GFR (Non-Af Amer) POC Glucose (mg/dL) (65-110) mg/dL Random Glucose (65-105) mg/dL Lactic Acid 1.2 1.6 (0.7-2.1) mmol/L Calcium (8.6-10.4) mg/dl Magnesium (1.6-2.3) mg/dL Total Bilirubin (0.2-1.3) mg/dL AST (14-36) U/L ALT (9-52) U/L Alkaline Phosphatase (38-126) U/L Total Protein (6.3-8.3) g/dL Albumin (3.5-5.0) g/dL Globulin (2.2-3.9) gm/dL Albumin/Globulin Ratio (1.0-2.1) Arterial Blood Potassium (3.6-5.2) mmol/L Urine Color (YELLOW) Urine Clarity (Clear) Urine pH (5.0-8.0) Ur Specific [place] (1.003-1.030) Urine Protein (NEGATIVE) mg/dL Urine Glucose (UA) (Normal) mg/dL Urine Ketones (NEGATIVE) mg/dL Urine Blood (NEGATIVE) Urine Nitrate (NEGATIVE) Urine Bilirubin (NEGATIVE) Urine Urobilinogen (0.2-1.0) mg/dL Ur Leukocyte Esterase (Negative) Nehemiah/uL Urine WBC (Auto) (0-5) /hpf Urine RBC (Auto) (0-3) /hpf Urine WBC Clumps (Auto) (NONE) /hpf Ur Squamous Epith Cells (0-5) /hpf Calcium Oxalate Crystal (<OCC) /hpf Urine Bacteria (<OCC) Hyaline Casts (0-2) /lpf Urine Yeast (Budding) (NEGATIVE) /hpf Random Vancomycin ug/mL 02/25/18 02/25/18 02/25/18 Range/Units 21:16 18:25 17:01 WBC (4.8-10.8) K/uL RBC (3.80-5.20) Mil/uL Hgb (11.0-16.0) g/dL Hct (34.0-47.0) % MCV (81.0-99.0) fL MCH (27.0-31.0) pg MCHC (33.0-37.0) g/dL RDW (11.5-14.5) % Plt Count (130-400) K/uL MPV (7.2-11.7) fL Neut % (Auto) (50.0-75.0) % Lymph % (Auto) (20.0-40.0) % [place] % (Auto) (0.0-10.0) % Eos % (Auto) (0.0-4.0) % Baso % (Auto) (0.0-2.0) % Neut # (Auto) (1.8-7.0) K/uL Lymph # (Auto) (1.0-4.3) K/uL [place] # (Auto) (0.0-0.8) K/uL Eos # (Auto) (0.0-0.7) K/uL Baso # (Auto) (0.0-0.2) K/uL Neutrophils % (Manual) (50-75) % Lymphocytes % (Manual) (20-40) % Reactive Lymphs % (0-0) % Monocytes % (Manual) (0-10) % Platelet Estimate (NORMAL) Polychromasia Hypochromasia (manual) Anisocytosis (manual) Microcytosis (manual) Target Cells Ovalocytes Puncture Site Rba pCO2 32 L (35-45) mm/Hg pO2 221 H (80-100) mm/Hg HCO3 28.4 H (21-28) mmol/L ABG pH 7.53 H (7.35-7.45) ABG Total CO2 27.7 (22-28) mmol/L ABG O2 Saturation 99.5 H (95-98) % ABG Base Excess 4.4 H (-2.0-3.0) mmol/L ABG Hemoglobin (11.7-17.4) g/dL ABG Carboxyhemoglobin (0.5-1.5) % POC ABG HHb (Measured) (0.0-5.0) % ABG Methemoglobin (0.0-3.0) % Pwael Test Na ABG Potassium 3.6 (3.6-5.2) mmol/L A-a O2 Difference 452.0 mm/Hg Respiratory Index 2.0 Hgb O2 Saturation (95.0-98.0) % Sodium 144.0 (132-148) mmol/l Chloride 112.0 H (98-107) mmol/L Glucose 110 H (65-105) mg/dl Lactate 1.5 (0.7-2.1) mmol/L Vent Mode Prvc Mechanical Rate 20 FiO2 100.0 % Tidal Volume 450 PEEP 5 Potassium (3.6-5.2) mmol/L Carbon Dioxide (22-30) mmol/L Anion Gap (10-20) BUN (7-17) mg/dL Creatinine (0.7-1.2) mg/dL Est GFR ( Amer) Est GFR (Non-Af Amer) POC Glucose (mg/dL) (65-110) mg/dL Random Glucose (65-105) mg/dL Lactic Acid 1.5 (0.7-2.1) mmol/L Calcium (8.6-10.4) mg/dl Magnesium (1.6-2.3) mg/dL Total Bilirubin (0.2-1.3) mg/dL AST (14-36) U/L ALT (9-52) U/L Alkaline Phosphatase (38-126) U/L Total Protein (6.3-8.3) g/dL Albumin (3.5-5.0) g/dL Globulin (2.2-3.9) gm/dL Albumin/Globulin Ratio (1.0-2.1) Arterial Blood Potassium 3.6 (3.6-5.2) mmol/L Urine Color Yellow (YELLOW) Urine Clarity Hazy (Clear) Urine pH 5.0 (5.0-8.0) Ur Specific [place] 1.026 (1.003-1.030) Urine Protein 1+ H (NEGATIVE) mg/dL Urine Glucose (UA) Normal (Normal) mg/dL Urine Ketones Negative (NEGATIVE) mg/dL Urine Blood 3+ H (NEGATIVE) Urine Nitrate Negative (NEGATIVE) Urine Bilirubin Negative (NEGATIVE) Urine Urobilinogen 4.0 H (0.2-1.0) mg/dL Ur Leukocyte Esterase 2+ H (Negative) Nehemiah/uL Urine WBC (Auto) 19 H (0-5) /hpf Urine RBC (Auto) 11 H (0-3) /hpf Urine WBC Clumps (Auto) (NONE) /hpf Ur Squamous Epith Cells 3 (0-5) /hpf Calcium Oxalate Crystal Occ H (<OCC) /hpf Urine Bacteria Occ H (<OCC) Hyaline Casts 0-2 (0-2) /lpf Urine Yeast (Budding) (NEGATIVE) /hpf Random Vancomycin ug/mL Laboratory Results - last 24 hr 02/25/18 02/25/18 02/25/18 17:01 18:25 21:16 WBC RBC Hgb Hct MCV MCH MCHC RDW Plt Count MPV Neut % (Auto) Lymph % (Auto) [place] % (Auto) Eos % (Auto) Baso % (Auto) Neut # (Auto) Lymph # (Auto) [place] # (Auto) Eos # (Auto) Baso # (Auto) Neutrophils % (Manual) Lymphocytes % (Manual) Reactive Lymphs % Monocytes % (Manual) Platelet Estimate Polychromasia Hypochromasia (manual) Anisocytosis (manual) Microcytosis (manual) Target Cells Ovalocytes Puncture Site Rba pCO2 32 L pO2 221 H HCO3 28.4 H ABG pH 7.53 H ABG Total CO2 27.7 ABG O2 Saturation 99.5 H ABG Base Excess 4.4 H ABG Hemoglobin ABG Carboxyhemoglobin POC ABG HHb (Measured) ABG Methemoglobin Pawel Test Na ABG Potassium 3.6 A-a O2 Difference 452.0 Respiratory Index 2.0 Hgb O2 Saturation Sodium 144.0 Chloride 112.0 H Glucose 110 H Lactate 1.5 Vent Mode Prvc Mechanical Rate 20 FiO2 100.0 Tidal Volume 450 PEEP 5 Potassium Carbon Dioxide Anion Gap BUN Creatinine Est GFR ( Amer) Est GFR (Non-Af Amer) POC Glucose (mg/dL) Random Glucose Lactic Acid 1.5 Calcium Magnesium Total Bilirubin AST ALT Alkaline Phosphatase Total Protein Albumin Globulin Albumin/Globulin Ratio Arterial Blood Potassium 3.6 Urine Color Yellow Urine Clarity Hazy Urine pH 5.0 Ur Specific [place] 1.026 Urine Protein 1+ H Urine Glucose (UA) Normal Urine Ketones Negative Urine Blood 3+ H Urine Nitrate Negative Urine Bilirubin Negative Urine Urobilinogen 4.0 H Ur Leukocyte Esterase 2+ H Urine WBC (Auto) 19 H Urine RBC (Auto) 11 H Urine WBC Clumps (Auto) Ur Squamous Epith Cells 3 Calcium Oxalate Crystal Occ H Urine Bacteria Occ H Hyaline Casts 0-2 Urine Yeast (Budding) Random Vancomycin 02/25/18 02/25/18 02/26/18 21:16 22:14 00:43 WBC 9.3 RBC 4.27 Hgb 10.3 L Hct 32.7 L MCV 76.5 L MCH 24.1 L MCHC 31.5 L RDW 24.6 H Plt Count 130 MPV 9.4 Neut % (Auto) 88.6 H Lymph % (Auto) 5.8 L [place] % (Auto) 5.0 Eos % (Auto) 0.1 Baso % (Auto) 0.5 Neut # (Auto) 8.2 H Lymph # (Auto) 0.5 L [place] # (Auto) 0.5 Eos # (Auto) 0.0 Baso # (Auto) 0.0 Neutrophils % (Manual) 92 H Lymphocytes % (Manual) 3 L Reactive Lymphs % 2 H Monocytes % (Manual) 3 Platelet Estimate Normal Polychromasia Slight Hypochromasia (manual) Anisocytosis (manual) Moderate Microcytosis (manual) Slight Target Cells Ovalocytes Slight Puncture Site pCO2 pO2 HCO3 ABG pH ABG Total CO2 ABG O2 Saturation ABG Base Excess ABG Hemoglobin ABG Carboxyhemoglobin POC ABG HHb (Measured) ABG Methemoglobin Pawel Test ABG Potassium A-a O2 Difference Respiratory Index Hgb O2 Saturation Sodium Chloride Glucose Lactate Vent Mode Mechanical Rate FiO2 Tidal Volume PEEP Potassium Carbon Dioxide Anion Gap BUN Creatinine Est GFR ( Amer) Est GFR (Non-Af Amer) POC Glucose (mg/dL) Random Glucose Lactic Acid 1.6 1.2 Calcium Magnesium Total Bilirubin AST ALT Alkaline Phosphatase Total Protein Albumin Globulin Albumin/Globulin Ratio Arterial Blood Potassium Urine Color Urine Clarity Urine pH Ur Specific [place] Urine Protein Urine Glucose (UA) Urine Ketones Urine Blood Urine Nitrate Urine Bilirubin Urine Urobilinogen Ur Leukocyte Esterase Urine WBC (Auto) Urine RBC (Auto) Urine WBC Clumps (Auto) Ur Squamous Epith Cells Calcium Oxalate Crystal Urine Bacteria Hyaline Casts Urine Yeast (Budding) Random Vancomycin 02/26/18 02/26/18 02/26/18 04:20 06:22 06:23 WBC 11.4 H RBC 4.32 Hgb 10.2 L Hct 33.4 L MCV 77.3 L MCH 23.7 L MCHC 30.6 L RDW 24.4 H Plt Count 120 L MPV 9.4 Neut % (Auto) 89.2 H Lymph % (Auto) 4.8 L [place] % (Auto) 5.9 Eos % (Auto) 0.0 Baso % (Auto) 0.1 Neut # (Auto) 10.2 H Lymph # (Auto) 0.5 L [place] # (Auto) 0.7 Eos # (Auto) 0.0 Baso # (Auto) 0.0 Neutrophils % (Manual) 97 H Lymphocytes % (Manual) 2 L Reactive Lymphs % Monocytes % (Manual) 1 Platelet Estimate Normal Polychromasia Slight Hypochromasia (manual) Moderate Anisocytosis (manual) Moderate Microcytosis (manual) Target Cells Slight Ovalocytes Slight Puncture Site Rr pCO2 36 pO2 282 H HCO3 25.3 ABG pH 7.44 ABG Total CO2 25.6 ABG O2 Saturation 100.1 H ABG Base Excess 0.5 ABG Hemoglobin 10.3 L ABG Carboxyhemoglobin 2.1 H POC ABG HHb (Measured) -0.1 L ABG Methemoglobin 0.4 Pawel Test Pos ABG Potassium A-a O2 Difference 386.0 Respiratory Index 1.4 Hgb O2 Saturation 97.5 Sodium 143 Chloride 103 Glucose Lactate Vent Mode Prvc Mechanical Rate 20 FiO2 100.0 Tidal Volume 450 PEEP 5 Potassium 3.5 L Carbon Dioxide 24 Anion Gap 19 BUN 45 H Creatinine 1.4 H Est GFR ( Amer) 43 Est GFR (Non-Af Amer) 36 POC Glucose (mg/dL) Random Glucose 128 H Lactic Acid Calcium 7.9 L Magnesium 2.2 Total Bilirubin 2.7 H AST 25 ALT 22 Alkaline Phosphatase 30 L D Total Protein 4.9 L Albumin 2.5 L Globulin 2.4 Albumin/Globulin Ratio 1.1 Arterial Blood Potassium Urine Color Urine Clarity Urine pH Ur Specific [place] Urine Protein Urine Glucose (UA) Urine Ketones Urine Blood Urine Nitrate Urine Bilirubin Urine Urobilinogen Ur Leukocyte Esterase Urine WBC (Auto) Urine RBC (Auto) Urine WBC Clumps (Auto) Ur Squamous Epith Cells Calcium Oxalate Crystal Urine Bacteria Hyaline Casts Urine Yeast (Budding) Random Vancomycin 02/26/18 02/26/18 02/26/18 06:23 10:14 12:23 WBC RBC Hgb Hct MCV MCH MCHC RDW Plt Count MPV Neut % (Auto) Lymph % (Auto) [place] % (Auto) Eos % (Auto) Baso % (Auto) Neut # (Auto) Lymph # (Auto) [place] # (Auto) Eos # (Auto) Baso # (Auto) Neutrophils % (Manual) Lymphocytes % (Manual) Reactive Lymphs % Monocytes % (Manual) Platelet Estimate Polychromasia Hypochromasia (manual) Anisocytosis (manual) Microcytosis (manual) Target Cells Ovalocytes Puncture Site pCO2 pO2 HCO3 ABG pH ABG Total CO2 ABG O2 Saturation ABG Base Excess ABG Hemoglobin ABG Carboxyhemoglobin POC ABG HHb (Measured) ABG Methemoglobin Pawel Test ABG Potassium A-a O2 Difference Respiratory Index Hgb O2 Saturation Sodium Chloride Glucose Lactate Vent Mode Mechanical Rate FiO2 Tidal Volume PEEP Potassium Carbon Dioxide Anion Gap BUN Creatinine Est GFR ( Amer) Est GFR (Non-Af Amer) POC Glucose (mg/dL) 109 Random Glucose Lactic Acid Calcium Magnesium Total Bilirubin AST ALT Alkaline Phosphatase Total Protein Albumin Globulin Albumin/Globulin Ratio Arterial Blood Potassium Urine Color Yellow Urine Clarity Hazy Urine pH 5.0 Ur Specific [place] 1.016 Urine Protein Negative Urine Glucose (UA) Normal Urine Ketones Negative Urine Blood 1+ H Urine Nitrate Negative Urine Bilirubin Negative Urine Urobilinogen 2.0 H Ur Leukocyte Esterase Neg Urine WBC (Auto) 14 H Urine RBC (Auto) 11 H Urine WBC Clumps (Auto) Few H Ur Squamous Epith Cells < 1 Calcium Oxalate Crystal Urine Bacteria Rare Hyaline Casts 11-20 H Urine Yeast (Budding) Many H Random Vancomycin 5.9 Critical Care Progress Note - Nutrition Nutrition: Nutrition Category Date Time Status NPO Diet [DIET] Diets 02/26/18 Breakfast Active Assessment/Plan - Assessment and Plan (Free Text) Plan: Patient seen and examined at bedside. Patient with b/l pleural effusion -continue current management as documented above -Patient remains on low dose pressors -continue to monitor cc time 35 minutes - Date & Time Date: 02/26/18 Time: 15:07
--- NOTE | 2018-02-26 10:40 | CP.PCM.CON ---
History of Present Illness - History of Present Illness History of Present Illness: Orthopedic consultation Dr. Reeves 82F complains of left shoulder pain after fall onto left side at home. Patient is intubated with mild sedation, daughter at bedside provides history. Daughter denies any complaints of pain in the left shoulder prior to this fall, and no prior dislocations. She says her mother has been complaining of right shoulder pain prior to this fall. Denies pain in other extremities. Risks/benefits/alt of closed reduction of shoulder dislocation explained to patient and daughter, consent signed by daughter as proxy Review of Systems - Review of Systems Systems not reviewed;Unavailable: Intubated All systems: reviewed and no additional remarkable complaints except - Musculoskeletal Musculoskeletal: As Per HPI - Neurological Additional comments: denies numbness/tingling Past Patient History - Infectious Disease Hx of Infectious Diseases: None - Tetanus Immunizations Tetanus Immunization: Unknown - Past Medical History & Family History Past Medical History?: Yes Past Family History: Reviewed and not pertinent - Past Social History Smoking Status: Never Smoked - CARDIAC Hx Congestive Heart Failure: Yes - NEUROLOGICAL Hx Dementia: Yes - ENDOCRINE/METABOLIC Hx Endocrine Disorders: No - HEMATOLOGICAL/ONCOLOGICAL Hx Blood Disorders: No - INTEGUMENTARY Other/Comment: weeping edema, on bilateral lower ext - MUSCULOSKELETAL/RHEUMATOLOGICAL Hx Falls: Yes - GASTROINTESTINAL Hx Gastrointestinal Disorders: No - GENITOURINARY/GYNECOLOGICAL Hx Genitourinary Disorders: No - PSYCHIATRIC Hx Substance Use: No - SURGICAL HISTORY Hx Surgeries: No - ANESTHESIA Hx Anesthesia: Yes Meds Allergies/Adverse Reactions: Allergies Allergy/AdvReac Type Severity Reaction Status Date / Time warfarin [From Coumadin] Allergy Verified 02/24/18 05:44 - Medications Medications: Current Medications Acetaminophen (Tylenol 325mg Tab) 650 mg PO Q6 PRN PRN Reason: Pain, moderate (4-7) Acetylcysteine (Acetylcysteine 20%) 6 ml INH RQ12 KEV Stop: 02/27/18 20:01 Albumin Human (Albumin Human 25% (12.5 Gm/50 Ml)) 25 gm IV Q6H KEV Stop: 02/26/18 12:01 Last Admin: 02/26/18 06:57 Dose: Not Given Albuterol/Ipratropium (Duoneb 3 Mg/0.5 Mg (3 Ml) Ud) 3 ml INH RQ4 KEV Last Admin: 02/26/18 04:09 Dose: 3 ml Dexmedetomidine HCl 200 mcg/ (Sodium Chloride) 50 mls @ 5.44 mls/hr IV TITR PRN; Protocol PRN Reason: Agitation Last Admin: 02/26/18 09:59 Dose: 0.19 mcg/kg/hr, 5.4 mls/hr Norepinephrine Bitartrate 4 mg (/ Dextrose) 250 mls @ 15 mls/hr IV .[id number] PRN; Protocol PRN Reason: TITRATE PER MD ORDER Last Titration: 02/26/18 07:00 Dose: 2 mcg/min, 7.5 mls/hr Piperacillin Sod/Tazobactam Sod (Zosyn 3.375 Gm Iv Premix) 3.375 gm in 50 mls @ 100 mls/hr IVPB Q8H KEV; Protocol Last Admin: 02/26/18 02:23 Dose: 100 mls/hr Lactated Ringer's (Lactated Ringer's) 1,000 mls @ 1,000 mls/hr IV .Q1H ONE Stop: 02/26/18 10:59 Last Admin: 02/26/18 09:50 Dose: 1,000 mls/hr Pantoprazole Sodium (Protonix Susp) 40 mg PO 0600 KEV Potassium Chloride (Potassium Chloride Oral Soln) 10 meq PO BID KEV Physical Exam - Constitutional Appears: Well, In Acute Distress - Head Exam Additional comments: bruise over right eye - Neck Exam Neck exam: Positive for: Full Rom, Normal Inspection - Respiratory Exam Respiratory Exam: NORMAL BREATHING PATTERN - Cardiovascular Exam Additional comments: +radial pulse - Expanded Upper Extremities Exam Left General: abrasion (skin avulsion to elbow, cleaned and xeroform/gauze/kerlex applied) Upper Arm exam: ecchymosis, swelling Elbow exam: ecchymosis (non tender to forearm, wrist), full ROM, swelling (no pain with elbow ROM, no obvious tenderness) Neuro motor exam: finger 2-5 abduction intact, thumb abduction, thumb IP flexion intact (NVID pre and post reduction), thumb opposition intact, wrist extension intact Neurosensory exam: median nerve intact, radial nerve intact, ulnar nerve intact Vascular exam: radial pulse - Neurological Exam Additional comments: follows commands and nods to questions - Psychiatric Exam Psychiatric exam: Normal Affect, Normal Mood - Skin Skin Exam: Warm Additional comments: three 1cm skin tears to left elbow from EMS per daughter, saturated dressing, noted edema and ecchymosis to entire left arm Results - Vital Signs Recent Vital Signs: Last Vital Signs Temp 99.9 F H 02/25/18 16:00 Pulse 67 02/26/18 06:58 Resp 20 02/26/18 06:58 BP 93/61 L 02/26/18 06:58 Pulse Ox 99 02/26/18 06:58 - Labs Result Diagrams: 02/26/18 06:23 02/26/18 06:22 Labs: Laboratory Results - last 24 hr 02/25/18 02/25/18 02/25/18 10:39 10:39 10:39 WBC 12.9 H RBC 5.09 Hgb 12.1 Hct 39.2 MCV 77.0 L MCH 23.7 L MCHC 30.8 L RDW 24.4 H Plt Count 216 MPV 9.1 Neut % (Auto) 86.2 H Lymph % (Auto) 5.3 L Bibb % (Auto) 8.4 Eos % (Auto) 0.0 Baso % (Auto) 0.1 Neut # (Auto) 11.1 H Lymph # (Auto) 0.7 L Bibb # (Auto) 1.1 H Eos # (Auto) 0.0 Baso # (Auto) 0.0 Neutrophils % (Manual) 88 H Lymphocytes % (Manual) 5 L Reactive Lymphs % Monocytes % (Manual) 7 Platelet Estimate Normal Large Platelets Present Polychromasia Slight Hypochromasia (manual) Moderate Poikilocytosis (manual Slight Anisocytosis (manual) Moderate Microcytosis (manual) Slight Target Cells Slight Ovalocytes Slight Schistocytes Slight PT INR APTT D-Dimer, Quantitative Puncture Site pCO2 pO2 HCO3 ABG pH ABG Total CO2 ABG O2 Saturation ABG Base Excess ABG Hemoglobin ABG Carboxyhemoglobin POC ABG HHb (Measured) ABG Methemoglobin Pawel Test ABG Potassium A-a O2 Difference Respiratory Index Hgb O2 Saturation Glucose Lactate Vent Mode Mechanical Rate FiO2 Tidal Volume PEEP Sodium 143 144 Potassium 4.1 4.0 Chloride 104 104 Carbon Dioxide 27 27 Anion Gap 15 17 BUN 38 H 38 H Creatinine 1.3 H 1.3 H Est GFR ( Amer) 47 47 Est GFR (Non-Af Amer) 39 39 Random Glucose 89 88 Lactic Acid Calcium 8.6 8.7 Phosphorus 4.5 Magnesium 2.1 Total Bilirubin 3.3 H AST 66 H D ALT 24 Alkaline Phosphatase 51 Total Creatine Kinase 339 H CK-MB (Mass) 2.78 Troponin I 0.0520 NT-Pro-B Natriuret Pep 66933 H Total Protein 6.0 L Albumin 2.9 L Globulin 3.1 Albumin/Globulin Ratio 0.9 L Arterial Blood Potassium Urine Color Urine Clarity Urine pH Ur Specific [place] Urine Protein Urine Glucose (UA) Urine Ketones Urine Blood Urine Nitrate Urine Bilirubin Urine Urobilinogen Ur Leukocyte Esterase Urine WBC (Auto) Urine RBC (Auto) Urine WBC Clumps (Auto) Ur Squamous Epith Cells Calcium Oxalate Crystal Urine Bacteria Hyaline Casts Urine Yeast (Budding) Fluid Source Fluid Appearance Fluid WBC Fluid RBC Fluid Tot Cell Count Fluid Neutrophils Fluid Lymphocytes Fld Monocyte/Macrophag Fluid Comment 02/25/18 02/25/18 02/25/18 10:39 12:50 12:53 WBC RBC Hgb Hct MCV MCH MCHC RDW Plt Count MPV Neut % (Auto) Lymph % (Auto) Bibb % (Auto) Eos % (Auto) Baso % (Auto) Neut # (Auto) Lymph # (Auto) Bibb # (Auto) Eos # (Auto) Baso # (Auto) Neutrophils % (Manual) Lymphocytes % (Manual) Reactive Lymphs % Monocytes % (Manual) Platelet Estimate Large Platelets Polychromasia Hypochromasia (manual) Poikilocytosis (manual Anisocytosis (manual) Microcytosis (manual) Target Cells Ovalocytes Schistocytes PT 18.6 H INR 1.7 APTT 35 H D-Dimer, Quantitative 1684 H Puncture Site pCO2 pO2 HCO3 ABG pH ABG Total CO2 ABG O2 Saturation ABG Base Excess ABG Hemoglobin ABG Carboxyhemoglobin POC ABG HHb (Measured) ABG Methemoglobin Pawel Test ABG Potassium A-a O2 Difference Respiratory Index Hgb O2 Saturation Glucose Lactate Vent Mode Mechanical Rate FiO2 Tidal Volume PEEP Sodium Potassium Chloride Carbon Dioxide Anion Gap BUN Creatinine Est GFR ( Amer) Est GFR (Non-Af Amer) Random Glucose Lactic Acid Calcium Phosphorus Magnesium Total Bilirubin AST ALT Alkaline Phosphatase Total Creatine Kinase CK-MB (Mass) Troponin I NT-Pro-B Natriuret Pep Total Protein Albumin Globulin Albumin/Globulin Ratio Arterial Blood Potassium Urine Color Urine Clarity Urine pH Ur Specific [place] Urine Protein Urine Glucose (UA) Urine Ketones Urine Blood Urine Nitrate Urine Bilirubin Urine Urobilinogen Ur Leukocyte Esterase Urine WBC (Auto) Urine RBC (Auto) Urine WBC Clumps (Auto) Ur Squamous Epith Cells Calcium Oxalate Crystal Urine Bacteria Hyaline Casts Urine Yeast (Budding) Fluid Source Pleural Fluid Appearance Cloudy Fluid WBC 243.0 Fluid RBC 94922.0 H Fluid Tot Cell Count 100 H Fluid Neutrophils 44.0 H Fluid Lymphocytes 40.0 H Fld Monocyte/Macrophag 16 H Fluid Comment 02/25/18 02/25/18 02/25/18 14:03 14:03 14:03 WBC 10.6 RBC 4.38 Hgb 10.6 L Hct 33.6 L MCV 76.8 L MCH 24.3 L MCHC 31.6 L RDW 24.6 H Plt Count 160 MPV 9.3 Neut % (Auto) 92.1 H Lymph % (Auto) 3.2 L Bibb % (Auto) 4.6 Eos % (Auto) 0.0 Baso % (Auto) 0.1 Neut # (Auto) 9.8 H Lymph # (Auto) 0.3 L Bibb # (Auto) 0.5 Eos # (Auto) 0.0 Baso # (Auto) 0.0 Neutrophils % (Manual) Lymphocytes % (Manual) Reactive Lymphs % Monocytes % (Manual) Platelet Estimate Large Platelets Polychromasia Hypochromasia (manual) Poikilocytosis (manual Anisocytosis (manual) Microcytosis (manual) Target Cells Ovalocytes Schistocytes PT INR APTT D-Dimer, Quantitative Puncture Site pCO2 pO2 HCO3 ABG pH ABG Total CO2 ABG O2 Saturation ABG Base Excess ABG Hemoglobin ABG Carboxyhemoglobin POC ABG HHb (Measured) ABG Methemoglobin Pawel Test ABG Potassium A-a O2 Difference Respiratory Index Hgb O2 Saturation Glucose Lactate Vent Mode Mechanical Rate FiO2 Tidal Volume PEEP Sodium 143 Potassium 3.9 Chloride 104 Carbon Dioxide 27 Anion Gap 16 BUN 40 H Creatinine 1.3 H Est GFR ( Amer) 47 Est GFR (Non-Af Amer) 39 Random Glucose 106 H Lactic Acid 2.4 H Calcium 8.0 L Phosphorus 4.1 Magnesium 2.6 H Total Bilirubin AST ALT Alkaline Phosphatase Total Creatine Kinase CK-MB (Mass) Troponin I 0.0660 NT-Pro-B Natriuret Pep Total Protein Albumin Globulin Albumin/Globulin Ratio Arterial Blood Potassium Urine Color Urine Clarity Urine pH Ur Specific [place] Urine Protein Urine Glucose (UA) Urine Ketones Urine Blood Urine Nitrate Urine Bilirubin Urine Urobilinogen Ur Leukocyte Esterase Urine WBC (Auto) Urine RBC (Auto) Urine WBC Clumps (Auto) Ur Squamous Epith Cells Calcium Oxalate Crystal Urine Bacteria Hyaline Casts Urine Yeast (Budding) Fluid Source Fluid Appearance Fluid WBC Fluid RBC Fluid Tot Cell Count Fluid Neutrophils Fluid Lymphocytes Fld Monocyte/Macrophag Fluid Comment 02/25/18 02/25/18 02/25/18 17:01 18:25 21:16 WBC RBC Hgb Hct MCV MCH MCHC RDW Plt Count MPV Neut % (Auto) Lymph % (Auto) Bibb % (Auto) Eos % (Auto) Baso % (Auto) Neut # (Auto) Lymph # (Auto) Bibb # (Auto) Eos # (Auto) Baso # (Auto) Neutrophils % (Manual) Lymphocytes % (Manual) Reactive Lymphs % Monocytes % (Manual) Platelet Estimate Large Platelets Polychromasia Hypochromasia (manual) Poikilocytosis (manual Anisocytosis (manual) Microcytosis (manual) Target Cells Ovalocytes Schistocytes PT INR APTT D-Dimer, Quantitative Puncture Site Rba pCO2 32 L pO2 221 H HCO3 28.4 H ABG pH 7.53 H ABG Total CO2 27.7 ABG O2 Saturation 99.5 H ABG Base Excess 4.4 H ABG Hemoglobin ABG Carboxyhemoglobin POC ABG HHb (Measured) ABG Methemoglobin Pawel Test Na ABG Potassium 3.6 A-a O2 Difference 452.0 Respiratory Index 2.0 Hgb O2 Saturation Glucose 110 H Lactate 1.5 Vent Mode Prvc Mechanical Rate 20 FiO2 100.0 Tidal Volume 450 PEEP 5 Sodium 144.0 Potassium Chloride 112.0 H Carbon Dioxide Anion Gap BUN Creatinine Est GFR ( Amer) Est GFR (Non-Af Amer) Random Glucose Lactic Acid 1.5 Calcium Phosphorus Magnesium Total Bilirubin AST ALT Alkaline Phosphatase Total Creatine Kinase CK-MB (Mass) Troponin I NT-Pro-B Natriuret Pep Total Protein Albumin Globulin Albumin/Globulin Ratio Arterial Blood Potassium 3.6 Urine Color Yellow Urine Clarity Hazy Urine pH 5.0 Ur Specific [place] 1.026 Urine Protein 1+ H Urine Glucose (UA) Normal Urine Ketones Negative Urine Blood 3+ H Urine Nitrate Negative Urine Bilirubin Negative Urine Urobilinogen 4.0 H Ur Leukocyte Esterase 2+ H Urine WBC (Auto) 19 H Urine RBC (Auto) 11 H Urine WBC Clumps (Auto) Ur Squamous Epith Cells 3 Calcium Oxalate Crystal Occ H Urine Bacteria Occ H Hyaline Casts 0-2 Urine Yeast (Budding) Fluid Source Fluid Appearance Fluid WBC Fluid RBC Fluid Tot Cell Count Fluid Neutrophils Fluid Lymphocytes Fld Monocyte/Macrophag Fluid Comment 02/25/18 02/25/18 02/26/18 21:16 22:14 00:43 WBC 9.3 RBC 4.27 Hgb 10.3 L Hct 32.7 L MCV 76.5 L MCH 24.1 L MCHC 31.5 L RDW 24.6 H Plt Count 130 MPV 9.4 Neut % (Auto) 88.6 H Lymph % (Auto) 5.8 L Bibb % (Auto) 5.0 Eos % (Auto) 0.1 Baso % (Auto) 0.5 Neut # (Auto) 8.2 H Lymph # (Auto) 0.5 L Bibb # (Auto) 0.5 Eos # (Auto) 0.0 Baso # (Auto) 0.0 Neutrophils % (Manual) 92 H Lymphocytes % (Manual) 3 L Reactive Lymphs % 2 H Monocytes % (Manual) 3 Platelet Estimate Normal Large Platelets Polychromasia Slight Hypochromasia (manual) Poikilocytosis (manual Anisocytosis (manual) Moderate Microcytosis (manual) Slight Target Cells Ovalocytes Slight Schistocytes PT INR APTT D-Dimer, Quantitative Puncture Site pCO2 pO2 HCO3 ABG pH ABG Total CO2 ABG O2 Saturation ABG Base Excess ABG Hemoglobin ABG Carboxyhemoglobin POC ABG HHb (Measured) ABG Methemoglobin Pawel Test ABG Potassium A-a O2 Difference Respiratory Index Hgb O2 Saturation Glucose Lactate Vent Mode Mechanical Rate FiO2 Tidal Volume PEEP Sodium Potassium Chloride Carbon Dioxide Anion Gap BUN Creatinine Est GFR ( Amer) Est GFR (Non-Af Amer) Random Glucose Lactic Acid 1.6 1.2 Calcium Phosphorus Magnesium Total Bilirubin AST ALT Alkaline Phosphatase Total Creatine Kinase CK-MB (Mass) Troponin I NT-Pro-B Natriuret Pep Total Protein Albumin Globulin Albumin/Globulin Ratio Arterial Blood Potassium Urine Color Urine Clarity Urine pH Ur Specific [place] Urine Protein Urine Glucose (UA) Urine Ketones Urine Blood Urine Nitrate Urine Bilirubin Urine Urobilinogen Ur Leukocyte Esterase Urine WBC (Auto) Urine RBC (Auto) Urine WBC Clumps (Auto) Ur Squamous Epith Cells Calcium Oxalate Crystal Urine Bacteria Hyaline Casts Urine Yeast (Budding) Fluid Source Fluid Appearance Fluid WBC Fluid RBC Fluid Tot Cell Count Fluid Neutrophils Fluid Lymphocytes Fld Monocyte/Macrophag Fluid Comment 02/26/18 02/26/18 02/26/18 04:20 06:22 06:23 WBC 11.4 H RBC 4.32 Hgb 10.2 L Hct 33.4 L MCV 77.3 L MCH 23.7 L MCHC 30.6 L RDW 24.4 H Plt Count 120 L MPV 9.4 Neut % (Auto) 89.2 H Lymph % (Auto) 4.8 L Bibb % (Auto) 5.9 Eos % (Auto) 0.0 Baso % (Auto) 0.1 Neut # (Auto) 10.2 H Lymph # (Auto) 0.5 L Bibb # (Auto) 0.7 Eos # (Auto) 0.0 Baso # (Auto) 0.0 Neutrophils % (Manual) 97 H Lymphocytes % (Manual) 2 L Reactive Lymphs % Monocytes % (Manual) 1 Platelet Estimate Normal Large Platelets Polychromasia Slight Hypochromasia (manual) Moderate Poikilocytosis (manual Anisocytosis (manual) Moderate Microcytosis (manual) Target Cells Slight Ovalocytes Slight Schistocytes PT INR APTT D-Dimer, Quantitative Puncture Site Rr pCO2 36 pO2 282 H HCO3 25.3 ABG pH 7.44 ABG Total CO2 25.6 ABG O2 Saturation 100.1 H ABG Base Excess 0.5 ABG Hemoglobin 10.3 L ABG Carboxyhemoglobin 2.1 H POC ABG HHb (Measured) -0.1 L ABG Methemoglobin 0.4 Pawel Test Pos ABG Potassium A-a O2 Difference 386.0 Respiratory Index 1.4 Hgb O2 Saturation 97.5 Glucose Lactate Vent Mode Prvc Mechanical Rate 20 FiO2 100.0 Tidal Volume 450 PEEP 5 Sodium 143 Potassium 3.5 L Chloride 103 Carbon Dioxide 24 Anion Gap 19 BUN 45 H Creatinine 1.4 H Est GFR ( Amer) 43 Est GFR (Non-Af Amer) 36 Random Glucose 128 H Lactic Acid Calcium 7.9 L Phosphorus Magnesium 2.2 Total Bilirubin 2.7 H AST 25 ALT 22 Alkaline Phosphatase 30 L D Total Creatine Kinase CK-MB (Mass) Troponin I NT-Pro-B Natriuret Pep Total Protein 4.9 L Albumin 2.5 L Globulin 2.4 Albumin/Globulin Ratio 1.1 Arterial Blood Potassium Urine Color Urine Clarity Urine pH Ur Specific [place] Urine Protein Urine Glucose (UA) Urine Ketones Urine Blood Urine Nitrate Urine Bilirubin Urine Urobilinogen Ur Leukocyte Esterase Urine WBC (Auto) Urine RBC (Auto) Urine WBC Clumps (Auto) Ur Squamous Epith Cells Calcium Oxalate Crystal Urine Bacteria Hyaline Casts Urine Yeast (Budding) Fluid Source Fluid Appearance Fluid WBC Fluid RBC Fluid Tot Cell Count Fluid Neutrophils Fluid Lymphocytes Fld Monocyte/Macrophag Fluid Comment 02/26/18 06:23 WBC RBC Hgb Hct MCV MCH MCHC RDW Plt Count MPV Neut % (Auto) Lymph % (Auto) Bibb % (Auto) Eos % (Auto) Baso % (Auto) Neut # (Auto) Lymph # (Auto) Bibb # (Auto) Eos # (Auto) Baso # (Auto) Neutrophils % (Manual) Lymphocytes % (Manual) Reactive Lymphs % Monocytes % (Manual) Platelet Estimate Large Platelets Polychromasia Hypochromasia (manual) Poikilocytosis (manual Anisocytosis (manual) Microcytosis (manual) Target Cells Ovalocytes Schistocytes PT INR APTT D-Dimer, Quantitative Puncture Site pCO2 pO2 HCO3 ABG pH ABG Total CO2 ABG O2 Saturation ABG Base Excess ABG Hemoglobin ABG Carboxyhemoglobin POC ABG HHb (Measured) ABG Methemoglobin Pawel Test ABG Potassium A-a O2 Difference Respiratory Index Hgb O2 Saturation Glucose Lactate Vent Mode Mechanical Rate FiO2 Tidal Volume PEEP Sodium Potassium Chloride Carbon Dioxide Anion Gap BUN Creatinine Est GFR ( Amer) Est GFR (Non-Af Amer) Random Glucose Lactic Acid Calcium Phosphorus Magnesium Total Bilirubin AST ALT Alkaline Phosphatase Total Creatine Kinase CK-MB (Mass) Troponin I NT-Pro-B Natriuret Pep Total Protein Albumin Globulin Albumin/Globulin Ratio Arterial Blood Potassium Urine Color Yellow Urine Clarity Hazy Urine pH 5.0 Ur Specific [place] 1.016 Urine Protein Negative Urine Glucose (UA) Normal Urine Ketones Negative Urine Blood 1+ H Urine Nitrate Negative Urine Bilirubin Negative Urine Urobilinogen 2.0 H Ur Leukocyte Esterase Neg Urine WBC (Auto) 14 H Urine RBC (Auto) 11 H Urine WBC Clumps (Auto) Few H Ur Squamous Epith Cells < 1 Calcium Oxalate Crystal Urine Bacteria Rare Hyaline Casts 11-20 H Urine Yeast (Budding) Many H Fluid Source Fluid Appearance Fluid WBC Fluid RBC Fluid Tot Cell Count Fluid Neutrophils Fluid Lymphocytes Fld Monocyte/Macrophag Fluid Comment - Impressions Impression: Patient Name / ID : GAVINO CASILLAS / [id number] Exam Date : 02/24/2018 07:02:39 ( Approved ) Study Comment : Sex / Age : F / [id number] Creator : Sugey Soriano Dictator : Liang Burden MD Deli Associate : Disability Coordinator : Liang Burden MD Approver2 : Report Date : 02/24/2018 08:14:02 My Comment : Date of service: 02/24/2018 PROCEDURE: CT Chest, Abdomen and Pelvis with intravenous contrast HISTORY: fall COMPARISON: None available. TECHNIQUE: Helical CT of the chest, abdomen and pelvis was performed following dynamic int ravenous contrast administration. Oral contrast was not administered as per request. IV dose administered: Omnipaque 300, 100 Radiation dose: Total exam DLP = 185.18 mGy-cm. This CT exam was performed using one or more of the following dose reduction techniques: Automated exposure control, adjustment of the mA and/or kV according to patient size, and/or use of iterative reconstruction technique. FINDINGS: CT CHEST WITH CONTRAST: LUNGS: There is relatively extensive compression atelectasis affecting the right lower and left upper lobes with the left lower lobe grossly affected. Limited compression atelectasis affects the right upper lobe. No masses appreciated within aerated lung with central airways grossly appearing clear. MEDIASTINUM: There is mild dilatation of the ascending thoracic aorta terminating at the mid arch. Measures 4.1 cm at the ascending segment without atherosclerotic plaque associated grossly. Normal appearing pulmonary arterial trunk. No aortic disse ction. Pulmonary vascular congestion in question however. Extensive coronary artery atherosclerosis appreciated, calcified and there is cardiomegaly but no pericardial effusion identified. Thoracic inlet appears unremarkable. LYMPH NODES: Unremarkable. PLEURA: Large bilateral pleural effusions are identified, left greater than right. No pneumothorax bilaterally. BONES: T7 fracture, nondisplaced. Extensive multilevel spondylosis include diffuse syndesmotic fights suspicious for possible DISH or ankylosing spondylitis. Incidental anterior inferior dislocation of the left humeral head relative to glenoid process of the scapula. No left shoulder fracture appreciable however. OTHER FINDINGS: Mild anasarca suggested. CT ABDOMEN AND PELVIS: LIVER: Unremarkable. No gross lesion or ductal dilatation. GALLBLADDER AND BILE DUCTS: Extensive cholelithiasis is identified within a distended gallbladder. No obvious pattern of acute cholecystitis nevertheless. PANCREAS: There is a 1.2 cm cystic lesion abutting the distal pancreatic duct or there is dilatation of the distal pancreatic duct. SPLEEN: No posttraumatic changes.. ADRENALS: Unremarkable. No mass. KIDNEYS AND URETERS: No obstructive uropathy or renal fracture appreciable. Nonspecific streaky perinephric changes are identified bilaterally. VASCULATURE: Nonaneurysmal abdominal aortic calcific atherosclerotic changes are identified. 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 BOWEL: Sigmoid diverticulosis without diverticulitis.. No obstruction. No gross mural thickening. APPENDIX: Normal appendix. PERITONEUM: Mild umbilical hernia containing only fat. No ascites. No free intrarenal gas or abscess appreciable. No hemoperitoneum. LYMPH NODES: Unremarkable. No enlarged lymph nodes. BLADDER: Unremarkable. REPRODUCTIVE: 1.5 cm left adnexal cyst BONES: No acute fracture. OTHER FINDINGS: None. IMPRESSION: 1. T7 thoracic vertebral body fracture without displacement. No additional fracture throughout the thorax. 2. Anterior inferior dislocation left humeral head relative to the glenoid process at the left shoulder. 3. Extensive bilateral pleural effusions and compression atelectasis at the bilateral lungs with well aerated lung appearing normal. No central airway lesion appreciated grossly. 4. Dilatation of the ascending thoracic aorta up to 4.1 cm. 5. No definitive posttraumatic changes in the abdomen and pelvis. 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 7. Extensive cholelithiasis without pattern of acute cholecystitis. 8. 1.2 cm cyst or pancreatic duct dilatation at the head of the pancreas. Consider follow-up MRCP/abdomen MRI with and without contrast for added characterization. 9. Additional lesser changes as discussed above. Concordant preliminary report from [facility], 02/24/2018. Assessment & Plan (1) Dislocation of left shoulder joint Assessment and Plan: attempted reduction in ER per ER attg was reduced but unstable vertebral fractures are outside of scope of practice of Dr. Reeves, recommend spine consultation/neurosurgery closed reduction left shoulder performed at bedside with propofol clinically successful closed reduction post reduction xray reviewed, single AP view, but compared to CXR from today, appears to be reduced will get CT scan left shoulder when patient stable for exam shoulder immobilizer applied, maintain at all times elevate hand and encourage ROM fingers d/w Dr. Reeves, agrees with above local wound care to elbow Status: Acute (2) Abrasion of left elbow Assessment and Plan: local wound care and dressing changed Status: Acute Procedures Attestation:: I certify that I have explained the specified Operation(s) or Procedure(s), risks, benefits and reasonable alternatives to the Patient and/or other person responsible. The opportunity was given to ask questions and all questions answered - Orthopedic Joint Reduction Joint #1 Consent Obtained: written consent (consent signed by daughter, patient nods to understand procedure) Time Out Performed: Yes Side: left Joint Reduction Location: shoulder Analgesia: procedural sedation Shoulder Technique Used (if applicable): traction/counter-traction Post-Reduction Neuro Exam: intact Post-Reduction Vascular Exam: intact Post Reduction X-Ray Obtained: Yes Post Reduction X-Ray Results: reduced (single view in immobilizer, clinically reduced, patient admits to less pain)
--- NOTE | 2018-02-26 10:41 | CT ---
Date of service: 02/25/2018 PROCEDURE: CT Chest, Abdomen and Pelvis without intravenous contrast HISTORY: r/o bladder mass COMPARISON: 02/24/2018 TECHNIQUE: Radiation dose: Total exam DLP = 2045.6 mGy-cm. This CT exam was performed using one or more of the following dose reduction techniques: Automated exposure control, adjustment of the mA and/or kV according to patient size, and/or use of iterative reconstruction technique. FINDINGS: CT CHEST WITHOUT CONTRAST: LUNGS: The pneumatized portions of the lungs are clear. MEDIASTINUM: Unremarkable. Normal caliber aorta and pulmonary arterial trunk. Normal size heart. LYMPH NODES: Unremarkable. PLEURA: Large bilateral pleural effusions with compressive atelectasis at the lung bases with fluid tracking to the left apical segment region. BONES: Unremarkable. OTHER FINDINGS: Right CVP line and tracheostomy in place. CT ABDOMEN AND PELVIS: LIVER: Unremarkable. No gross lesion or ductal dilatation. GALLBLADDER AND BILE DUCTS: Cholelithiasis. PANCREAS: Unremarkable. No gross lesion or ductal dilatation. SPLEEN: Unremarkable. ADRENALS: Unremarkable. No mass. KIDNEYS AND URETERS: Retained contrast in the kidneys; correlate for renal insufficiency/failure. No hydronephrosis. No solid mass. VASCULATURE: No aortic atherosclerotic calcification or mural plaque present. Unremarkable. No aortic aneurysm. BOWEL: Diverticulosis. No obstruction. No gross mural thickening. APPENDIX: Normal appendix. PERITONEUM: Unremarkable. No free fluid. No free air. LYMPH NODES: Unremarkable. No enlarged lymph nodes. BLADDER: Minimal air within the urinary bladder; correlate clinically for recent instrumentation. REPRODUCTIVE: Unremarkable. BONES: No acute fracture. OTHER FINDINGS: Anasarca. Fat containing umbilical hernia. NG tube in place. IMPRESSION: Large bilateral pleural effusions and compressive atelectasis at the lung bases. Anasarca. Cholelithiasis. Diverticulosis. Minimal air within the urinary bladder; correlate clinically for recent instrumentation.
[2018-02-26] MEDS: Potassium Chloride 20 mEq/15 ml LIQ UD PO SCH ×2 (11:06→18:03)
--- NOTE | 2018-02-26 11:09 | CP.PCM.PN ---
Subjective - Date & Time of Evaluation Date of Evaluation: 02/26/18 Time of Evaluation: 11:07 - Subjective Subjective: pt still entubated has ng tube sob has significat pleural efusion Objective - Vital Signs/Intake and Output Vital Signs (last 24 hours): Temp Pulse Resp BP Pulse Ox 99.9 F H 67 20 93/61 L 99 02/25/18 16:00 02/26/18 06:58 02/26/18 06:58 02/26/18 06:58 02/26/18 06:58 Intake and Output: 02/26/18 02/26/18 06:59 18:59 Intake Total 1144.8 62.9 Output Total 510 40 Balance 634.8 22.9 - Medications Medications: Current Medications Acetaminophen (Tylenol 325mg Tab) 650 mg PO Q6 PRN PRN Reason: Pain, moderate (4-7) Acetylcysteine (Acetylcysteine 20%) 6 ml INH RQ12 KEV Stop: 02/27/18 20:01 Albumin Human (Albumin Human 25% (12.5 Gm/50 Ml)) 25 gm IV Q6H KEV Stop: 02/26/18 12:01 Last Admin: 02/26/18 06:57 Dose: Not Given Albuterol/Ipratropium (Duoneb 3 Mg/0.5 Mg (3 Ml) Ud) 3 ml INH RQ4 KEV Last Admin: 02/26/18 04:09 Dose: 3 ml Dexmedetomidine HCl 200 mcg/ (Sodium Chloride) 50 mls @ 5.44 mls/hr IV TITR PRN; Protocol PRN Reason: Agitation Last Admin: 02/26/18 09:59 Dose: 0.19 mcg/kg/hr, 5.4 mls/hr Norepinephrine Bitartrate 4 mg (/ Dextrose) 250 mls @ 15 mls/hr IV .[id number] PRN; Protocol PRN Reason: TITRATE PER MD ORDER Last Titration: 02/26/18 07:00 Dose: 2 mcg/min, 7.5 mls/hr Piperacillin Sod/Tazobactam Sod (Zosyn 3.375 Gm Iv Premix) 3.375 gm in 50 mls @ 100 mls/hr IVPB Q8H KEV; Protocol Last Admin: 02/26/18 11:06 Dose: 100 mls/hr Pantoprazole Sodium (Protonix Susp) 40 mg PO 0600 KEV Potassium Chloride (Potassium Chloride Oral Soln) 10 meq PO BID KEV Last Admin: 02/26/18 11:06 Dose: 10 meq - Labs Labs: 02/26/18 06:23 02/26/18 06:22 PT 18.6 SECONDS (9.7-12.2) H 02/25/18 12:53 INR 1.7 02/25/18 12:53 APTT 35 SECONDS (21-34) H 02/25/18 12:53 - Constitutional Appears: In Acute Distress - Head Exam Head Exam: ATRAUMATIC - ENT Exam Additional comments: entubated - Neck Exam Neck Exam: Normal Inspection - Respiratory Exam Respiratory Exam: Decreased Breath Sounds - Cardiovascular Exam Cardiovascular Exam: Irregular Rhythm, +S1, +S2, +S4 - GI/Abdominal Exam GI & Abdominal Exam: Normal Bowel Sounds - Extremities Exam Extremities Exam: Pedal Edema - Back Exam Back Exam: NORMAL INSPECTION - Skin Skin Exam: Erythema Additional comments: lower ext Assessment and Plan - Assessment and Plan (Free Text) Assessment: resp failiur chf cardiac arrythmia uti celulitis legs shoullder dislocation Plan: cont as per icu orders
--- NOTE | 2018-02-26 11:47 | RAD ---
Date of service: 02/25/2018 HISTORY: placement of NGT COMPARISON: None available. FINDINGS: In situ ETT, tip of which lies approximately 3.9 cm above fareed. NGT is present tip of which appears to terminate just at the level of the EG junction. This should be advanced. No change right IJ central line with tip in the SVC. LUNGS: Mild pulmonary venous congestive changes with bilateral lower lobe atelectatic and/or alveolar-type infiltrates and bilateral effusions left larger than right. PLEURA: No significant pleural effusion identified, no pneumothorax apparent. CARDIOVASCULAR: Aortic atherosclerotic calcification present. Normal cardiac size. No pulmonary vascular congestion. OSSEOUS STRUCTURES: No significant abnormalities. VISUALIZED UPPER ABDOMEN: Normal. OTHER FINDINGS: None. IMPRESSION: Support lines and tubes as above. Mild pulmonary venous congestive changes with bilateral lower lobe atelectatic and/or alveolar-type infiltrates and bilateral effusions left larger than right..
[2018-02-26] MEDS ORDERED: HYDROmorphone 1 mg/ml ISec IVP STA (12:45)
[2018-02-26] MEDS ORDERED: Propofol 10 mg/ml 1,000 MG/100 ML VIAL IV PRN (13:01)
--- NOTE | 2018-02-26 14:22 | RAD ---
Date of service: 02/26/2018 PROCEDURE: Single view of the left shoulder obtained. HISTORY: Status post closed reduction left shoulder, in immobilizer COMPARISON: Comparison made with chest radiograph obtained earlier same day. FINDINGS: BONES: Interval closed reduction previously noted anterior inferior dislocation left humeral head with respect to the glenoid. Questionable chronic the left humeral head however no definitive radiographic evidence of acute displaced fracture. The there is slight high-riding appearance of the left humeral head suggesting rotator cuff injury. 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 SOFT TISSUES: Normal. OTHER FINDINGS: None. IMPRESSION: Interval closed reduction previously noted anterior inferior dislocation left humeral head with respect to the glenoid. No definitive evidence of acute displaced fracture. Questionable chronic Hill-Sachs deformity left humeral head.
[2018-02-26] MEDS: Pantoprazole 40 mg Susp UD PO SCH (15:38)
--- NOTE | 2018-02-26 16:43 | CP.PCM.PN ---
Subjective - Date & Time of Evaluation Date of Evaluation: 02/26/18 Time of Evaluation: 16:40 - Subjective Subjective: Intubated and sedated. Objective - Vital Signs/Intake and Output Vital Signs (last 24 hours): Temp Pulse Resp BP Pulse Ox 98 F 68 20 111/82 94 L 02/26/18 16:00 02/26/18 14:21 02/26/18 14:21 02/26/18 14:21 02/26/18 14:21 Intake and Output: 02/26/18 02/26/18 06:59 18:59 Intake Total 1144.8 248.7 Output Total 510 390 Balance 634.8 -141.3 - Medications Medications: Current Medications Acetaminophen (Tylenol 325mg Tab) 650 mg PO Q6 PRN PRN Reason: Pain, moderate (4-7) Acetylcysteine (Acetylcysteine 20%) 6 ml INH RQ12 KEV Stop: 02/27/18 20:01 Last Admin: 02/26/18 07:20 Dose: 6 ml Albumin Human (Albumin Human 25% (12.5 Gm/50 Ml)) 25 gm IV Q6H KEV Stop: 02/26/18 19:01 Last Admin: 02/26/18 15:03 Dose: 25 gm Albuterol/Ipratropium (Duoneb 3 Mg/0.5 Mg (3 Ml) Ud) 3 ml INH RQ4 KEV Last Admin: 02/26/18 15:47 Dose: 3 ml Enoxaparin Sodium (Lovenox) 60 mg SC Q12 KEV Dexmedetomidine HCl 200 mcg/ (Sodium Chloride) 50 mls @ 5.44 mls/hr IV TITR PRN; Protocol PRN Reason: Agitation Last Titration: 02/26/18 13:53 Dose: 0.19 mcg/kg/hr, 5.4 mls/hr Norepinephrine Bitartrate 4 mg (/ Dextrose) 250 mls @ 15 mls/hr IV .[id number] PRN; Protocol PRN Reason: TITRATE PER MD ORDER Last Titration: 02/26/18 13:52 Dose: 1.86 mcg/min, 7 mls/hr Piperacillin Sod/Tazobactam Sod (Zosyn 3.375 Gm Iv Premix) 3.375 gm in 50 mls @ 100 mls/hr IVPB Q8H KEV; Protocol Last Admin: 02/26/18 11:06 Dose: 100 mls/hr Pantoprazole Sodium (Protonix Susp) 40 mg PO 0600 [facility] Last Admin: 02/26/18 15:38 Dose: 40 mg Potassium Chloride (Potassium Chloride Oral Soln) 10 meq PO BID [facility] Last Admin: 02/26/18 11:06 Dose: 10 meq - Labs Labs: 02/26/18 06:23 02/26/18 06:22 PT 18.6 SECONDS (9.7-12.2) H 02/25/18 12:53 INR 1.7 02/25/18 12:53 APTT 35 SECONDS (21-34) H 02/25/18 12:53 - Head Exam Head Exam: NORMOCEPHALIC - Neck Exam Neck Exam: Normal Inspection - Respiratory Exam Additional comments: Intubated. - Cardiovascular Exam Cardiovascular Exam: Irregular Rhythm Assessment and Plan (1) CHF (congestive heart failure) Assessment & Plan: Diastolic dysfunction. Fluid restriction, Intubated due to respiratory distress. Had right pleurocentesis done. Fluid restriction to 1.5 L/day. Status: Acute (2) Atrial fibrillation and flutter Assessment & Plan: Rate controlled. Anticoagulation if contraindication. Cardizem IV PRN or infusion. Maintain electrolyte balance, 12 lead EKG. Discussed with daughter. Status: Acute
--- NOTE | 2018-02-26 19:17 | CP.PCM.PN ---
Subjective - Date & Time of Evaluation Date of Evaluation: 02/26/18 Time of Evaluation: 17:00 - Subjective Subjective: patient seen and examined Previous events noted Patient intubated for respiratory distress and placed on ventilatory suppor Status post right thoracentesis Afebrile Sedated Objective - Vital Signs/Intake and Output Vital Signs (last 24 hours): Temp Pulse Resp BP Pulse Ox 98 F 68 20 111/82 94 L 02/26/18 16:00 02/26/18 14:21 02/26/18 14:21 02/26/18 14:21 02/26/18 14:21 Intake and Output: 02/26/18 02/27/18 18:59 06:59 Intake Total 276.3 Output Total 515 Balance -238.7 - Medications Medications: Current Medications Acetaminophen (Tylenol 325mg Tab) 650 mg PO Q6 PRN PRN Reason: Pain, moderate (4-7) Acetylcysteine (Acetylcysteine 20%) 6 ml INH RQ12 KEV Stop: 02/27/18 20:01 Last Admin: 02/26/18 07:20 Dose: 6 ml Albuterol/Ipratropium (Duoneb 3 Mg/0.5 Mg (3 Ml) Ud) 3 ml INH RQ4 KEV Last Admin: 02/26/18 15:47 Dose: 3 ml Enoxaparin Sodium (Lovenox) 60 mg SC Q12 KEV Dexmedetomidine HCl 200 mcg/ (Sodium Chloride) 50 mls @ 5.44 mls/hr IV TITR P RN; Protocol PRN Reason: Agitation Last Titration: 02/26/18 13:53 Dose: 0.19 mcg/kg/hr, 5.4 mls/hr Norepinephrine Bitartrate 4 mg (/ Dextrose) 250 mls @ 15 mls/hr IV .[id number] PRN; Protocol PRN Reason: TITRATE PER MD ORDER Last Titration: 02/26/18 13:52 Dose: 1.86 mcg/min, 7 mls/hr Piperacillin Sod/Tazobactam Sod (Zosyn 3.375 Gm Iv Premix) 3.375 gm in 50 mls @ 100 mls/hr IVPB Q8H KEV; Protocol Last Admin: 02/26/18 18:03 Dose: 100 mls/hr Pantoprazole Sodium (Protonix Susp) 40 mg PO 0600 KEV Last Admin: 02/26/18 15:38 Dose: 40 mg Potassium Chloride (Potassium Chloride Oral Soln) 10 meq PO BID KEV Last Admin: 02/26/18 18:03 Dose: 10 meq - Labs Labs: 02/26/18 06:23 02/26/18 06:22 PT 18.6 SECONDS (9.7-12.2) H 02/25/18 12:53 INR 1.7 02/25/18 12:53 APTT 35 SECONDS (21-34) H 02/25/18 12:53 - Head Exam Head Exam: ATRAUMATIC, NORMOCEPHALIC - ENT Exam ENT Exam: Mucous Membranes Moist - Neck Exam Neck Exam: Normal Inspection - Respiratory Exam Respiratory Exam: Decreased Breath Sounds - Cardiovascular Exam Cardiovascular Exam: Irregular Rhythm - GI/Abdominal Exam GI & Abdominal Exam: Soft, Normal Bowel Sounds - Extremities Exam Extremities Exam: Pedal Edema Assessment and Plan (1) Acute respiratory failure Assessment & Plan: secondary to bilateral pleural effusion Status post thoracentesis, Fluid analysis Antibiotics ventilator support Status: Acute (2) Pleural effusion Status: Acute (3) Atrial fibrillation and flutter Status: Acute (4) Dislocation of left shoulder joint Status: Acute
[2018-02-26] MEDS: Enoxaparin 60 mg Syringe SC SCH (22:43)
[2018-02-26] MEDS ORDERED: Albumin Human 25% (12.5 gm/50 ml) IV SCH (23:30)
[2018-02-27] MEDS: Albuterol-Ipratrop 3 mg / 0.5 (3 ml) UD INH SCH ×7 (00:21→20:28)
[2018-02-27] MEDS: Piperacill/Tazo 3.375gm in Dex 3.375 GM/50 ML BAG IVPB SCH ×3 (02:41→18:31)
[2018-02-27 05:45] LABS: ABG ALLEN TEST POS; ARTERIAL BLOOD GAS HCO3 29.9 mmol/L (21-28); ARTERIAL BLOOD GAS O2 SAT 98.7 % (95-98); ARTERIAL BLOOD GAS PCO2 36 mm/Hg (35-45); ARTERIAL BLOOD GAS PH 7.52 (7.35-7.45); ARTERIAL BLOOD GAS PO2 89 mm/Hg (80-100); ARTERIAL BLOOD GAS TCO2 30.5 mmol/L (22-28)
[2018-02-27] MEDS ORDERED: Pantoprazole 40 mg Susp UD PO SCH (06:00)
[2018-02-27] MEDS: Pantoprazole 40 mg Susp UD PO SCH (06:11)
[2018-02-27 06:29] LABS: ALB/GLOB RATIO 1.3 (1.0-2.1); ALBUMIN 2.8 g/dL (3.5-5.0); CALCIUM 8.1 mg/dl (8.6-10.4)
[2018-02-27 06:34] LABS: BASO % 0.1 % (0.0-2.0); EOS % 0.2 % (0.0-4.0); HEMOGLOBIN 10.2 g/dL (11.0-16.0); LYMPH # 0.8 K/uL (1.0-4.3); MEAN CELL VOLUME 75.9 fL (81.0-99.0); MEAN CORPUSCULAR HGB CONC 31.6 g/dL (33.0-37.0); MEAN PLATELET VOLUME 9.4 fL (7.2-11.7); MONO # 0.7 K/uL (0.0-0.8); MONO % 8.4 % (0.0-10.0); NEUT % 82.3 % (50.0-75.0); NRBC % 0.1 % (0.0-2.0); PLATELET COUNT 105 K/uL (130-400); RBC 4.24 Mil/uL (3.80-5.20); RED CELL DISTRIBUTION WIDTH 24.5 % (11.5-14.5); WHITE BLOOD COUNT 8.5 K/uL (4.8-10.8)
[2018-02-27] MEDS: Acetylcysteine 20% Inhal Soln (4ml) INH SCH (08:12)
[2018-02-27] MEDS ORDERED: Potassium Chloride 20 mEq/15 ml LIQ UD PO ONE (08:30)
[2018-02-27] MEDS: Potassium Chloride 20 mEq/15 ml LIQ UD PO SCH ×2 (09:36→18:32)
[2018-02-27] MEDS: Albumin Human 25% (12.5 gm/50 ml) IV SCH ×2 (09:37→16:53)
[2018-02-27] MEDS: Dexmedetomidine Hydrochloride 200 MCG in Sodium Chloride 0.9% 48 ML IV PRN (09:42)
[2018-02-27 10:07] LABS: LYMPHOCYTE 11 % (20-40); MONOCYTE 10 % (0-10); NEUTROPHIL 79 % (50-75); TOTAL CELLS COUNTED 100
[2018-02-27 10:08] LABS: ANISOCYTOSIS MODERATE; HYPOCHROMIC SLIGHT; MICROCYTOSIS SLIGHT; PLATELET ESTIMATE SLIGHTLY DECREASED (NORMAL); POIKILOCYTOSIS SLIGHT; POLYCHROMIC SLIGHT; TARGET CELLS SLIGHT
[2018-02-27 10:09] LABS: OVALOCYTES SLIGHT; SPHEROCYTES SLIGHT
[2018-02-27 10:11] LABS: SCHISTOCYTES SLIGHT; TEARDROP CELLS SLIGHT
[2018-02-27 10:12] LABS: LARGE PLATELETS PRESENT
--- NOTE | 2018-02-27 10:17 | CP.CCUPN ---
CCU Subjective - Physician Review Subjective (Free Text): PAtient more awake, alert communicating, tolerating CPAP 02/27/18 10:12 Critical Care Time Spent (in minutes): 45 CCU Objective - Vital Signs / Intake & Output Vital Signs (Last 4 hours): Vital Signs Temp Pulse Resp BP Pulse Ox 02/27/18 09:21 88 17 115/74 90 L 02/27/18 09:00 83 19 91 L 02/27/18 08:51 84 19 119/72 91 L 02/27/18 08:21 74 20 115/69 02/27/18 08:00 97.7 F 77 20 95 02/27/18 07:51 78 20 114/68 93 L 02/27/18 07:21 70 20 114/75 95 02/27/18 07:00 77 21 95 02/27/18 06:51 74 20 116/77 02/27/18 06:21 82 21 112/70 92 L Intake and Output (Last 8hrs): Intake & Output 02/26/18 02/27/18 02/27/18 22:59 06:59 14:59 Intake Total 189.8 439.0 261.6 Output Total 400 260 225 Balance -210.2 179.0 36.6 Weight 235 lb 1.6 oz Intake: IV 53 38 50 Intake, IV Amount 76.8 216.0 171.6 R jug. TLC medial port 43.2 43.2 21.6 R jug. TLC proximal port 33.6 22.8 50 RIJ 2 150 Right Internal Jugular 100 Tube Feeding 60 135 40 Other 50 Output: Urine 400 260 225 Urethral ([place]) 400 260 225 Emesis 0 0 Other: # Bowel Movements 0 0 - Physical Exam Head: Positive for: Atraumatic, Normocephalic Conjunctiva: Positive for: Normal Mouth: Positive for: Moist Mucous Membranes Respiratory/Chest: Positive for: Clear to Auscultation, Decreased Breath Sounds, Other (Patient is intubated). Negative for: Wheezes, Rales, Rhonchi Cardiovascular: Positive for: Regular Rate and Rhythm, Normal S1, S2. Negative for: Murmurs, Rub, Gallop Abdomen: Positive for: Normal Bowel Sounds. Negative for: Distention Upper Extremity: Positive for: Other (edema) Lower Extremity: Positive for: Other Neurological: Negative for: GCS=15 Skin: Positive for: Warm, Dry, Rashes, Normal Color - Medications Active Medications: Active Medications Generic Name Dose Route Start Last Admin Trade Name Freq PRN Reason Stop Dose Admin Acetaminophen 650 mg 02/24/18 15:47 Tylenol 325mg Tab PO Q6 PRN Pain, moderate (4-7) Albumin Human 25 gm 02/27/18 08:45 02/27/18 09:37 Albumin Human 25% (12.5 Gm/50 Ml) IV 02/27/18 16:46 25 gm Q8H KEV Administration Albuterol/Ipratropium 3 ml 02/25/18 12:00 02/27/18 08:12 Duoneb 3 Mg/0.5 Mg (3 Ml) Ud INH 3 ml RQ4 KEV Administration Enoxaparin Sodium 60 mg 02/26/18 22:00 02/26/18 22:43 Lovenox SC 60 mg Q12 KEV Administration Dexmedetomidine HCl 200 mcg/ 50 mls @ 5.44 mls/hr 02/25/18 13:41 02/27/18 09:42 Sodium Chloride IV 0.19 mcg/kg/hr TITR PRN 5.4 mls/hr Agitation Administration Protocol 0.2 MCG/KG/HR Piperacillin Sod/Tazobactam Sod 3.375 gm in 50 mls @ 100 mls/hr 02/25/18 19:00 02/27/18 02:41 Zosyn 3.375 Gm Iv Premix IVPB 100 mls/hr Q8H KEV Administration Protocol Potassium Chloride 20 meq in 100 mls @ 50 mls/hr 02/27/18 08:24 02/27/18 09:36 Potassium Chloride 20 Meq/100 Ml IVPB 02/27/18 10:23 50 mls/hr ONCE ONE Administration Pantoprazole Sodium 40 mg 02/26/18 15:00 02/27/18 06:11 Protonix Susp PO 40 mg 0600 KEV Administration Potassium Chloride 10 meq 02/26/18 11:00 02/27/18 09:36 Potassium Chloride Oral Soln PO 10 meq BID KEV Administration - Patient Studies Lab Studies: Microbiology Studies 02/25/18 14:07 Blood Culture - Preliminary Blood NO GROWTH AFTER 24 HOURS 02/25/18 14:07 Blood Culture - Preliminary Blood NO GROWTH AFTER 24 HOURS 02/25/18 12:50 Gram Stain - Final Body Fluid - Pleural Fluid Body Fluid Culture - Preliminary NO GROWTH AFTER 24 HOURS Lab Studies 02/27/18 02/27/18 02/27/18 Range/Units 06:23 06:07 05:52 WBC 8.5 (4.8-10.8) K/uL RBC 4.24 (3.80-5.20) Mil/uL Hgb 10.2 L (11.0-16.0) g/dL Hct 32.1 L (34.0-47.0) % MCV 75.9 L (81.0-99.0) fL MCH 24.0 L (27.0-31.0) pg MCHC 31.6 L (33.0-37.0) g/dL RDW 24.5 H (11.5-14.5) % Plt Count 105 L (130-400) K/uL MPV 9.4 (7.2-11.7) fL Neut % (Auto) 82.3 H (50.0-75.0) % Lymph % (Auto) 9.0 L (20.0-40.0) % Latimer % (Auto) 8.4 (0.0-10.0) % Eos % (Auto) 0.2 (0.0-4.0) % Baso % (Auto) 0.1 (0.0-2.0) % Neut # (Auto) 7.0 (1.8-7.0) K/uL Lymph # (Auto) 0.8 L (1.0-4.3) K/uL Latimer # (Auto) 0.7 (0.0-0.8) K/uL Eos # (Auto) 0.0 (0.0-0.7) K/uL Baso # (Auto) 0.0 (0.0-0.2) K/uL Neutrophils % (Manual) 79 H (50-75) % Lymphocytes % (Manual) 11 L (20-40) % Monocytes % (Manual) 10 (0-10) % Platelet Estimate Slightly decreased L (NORMAL) Large Platelets Present Polychromasia Slight Hypochromasia (manual) Slight Poikilocytosis (manual Slight Anisocytosis (manual) Moderate Microcytosis (manual) Slight Spherocytes Slight Target Cells Slight Tear Drop Cells Slight Ovalocytes Slight Schistocytes Slight Puncture Site pCO2 (35-45) mm/Hg pO2 (80-100) mm/Hg HCO3 (21-28) mmol/L ABG pH (7.35-7.45) ABG Total CO2 (22-28) mmol/L ABG O2 Saturation (95-98) % ABG Base Excess (-2.0-3.0) mmol/L Pawel Test ABG Potassium (3.6-5.2) mmol/L A-a O2 Difference mm/Hg Respiratory Index Sodium 144 (132-148) mmol/l Chloride 104 (98-107) mmol/L Glucose (65-105) mg/dl Lactate (0.7-2.1) mmol/L Vent Mode Mechanical Rate FiO2 % Tidal Volume PEEP Potassium 3.3 L (3.6-5.2) mmol/L Carbon Dioxide 30 (22-30) mmol/L Anion Gap 12 (10-20) BUN 46 H (7-17) mg/dL Creatinine 1.4 H (0.7-1.2) mg/dL Est GFR ( Amer) 43 Est GFR (Non-Af Amer) 36 POC Glucose (mg/dL) 75 (65-110) mg/dL Random Glucose 107 H (65-105) mg/dL Calcium 8.1 L (8.6-10.4) mg/dl Phosphorus 3.5 (2.5-4.5) mg/dL Magnesium 2.2 (1.6-2.3) mg/dL Total Bilirubin 2.1 H (0.2-1.3) mg/dL AST 14 D (14-36) U/L ALT 26 (9-52) U/L Alkaline Phosphatase 35 L (38-126) U/L Total Protein 4.9 L (6.3-8.3) g/dL Albumin 2.8 L (3.5-5.0) g/dL Globulin 2.1 L (2.2-3.9) gm/dL Albumin/Globulin Ratio 1.3 (1.0-2.1) Arterial Blood Potassium (3.6-5.2) mmol/L Random Vancomycin ug/mL 02/27/18 02/27/18 02/26/18 Range/Units 05:37 00:06 17:51 WBC (4.8-10.8) K/uL RBC (3.80-5.20) Mil/uL Hgb (11.0-16.0) g/dL Hct (34.0-47.0) % MCV (81.0-99.0) fL MCH (27.0-31.0) pg MCHC (33.0-37.0) g/dL RDW (11.5-14.5) % Plt Count (130-400) K/uL MPV (7.2-11.7) fL Neut % (Auto) (50.0-75.0) % Lymph % (Auto) (20.0-40.0) % Latimer % (Auto) (0.0-10.0) % Eos % (Auto) (0.0-4.0) % Baso % (Auto) (0.0-2.0) % Neut # (Auto) (1.8-7.0) K/uL Lymph # (Auto) (1.0-4.3) K/uL Latimer # (Auto) (0.0-0.8) K/uL Eos # (Auto) (0.0-0.7) K/uL Baso # (Auto) (0.0-0.2) K/uL Neutrophils % (Manual) (50-75) % Lymphocytes % (Manual) (20-40) % Monocytes % (Manual) (0-10) % Platelet Estimate (NORMAL) Large Platelets Polychromasia Hypochromasia (manual) Poikilocytosis (manual Anisocytosis (manual) Microcytosis (manual) Spherocytes Target Cells Tear Drop Cells Ovalocytes Schistocytes Puncture Site Rr pCO2 36 (35-45) mm/Hg pO2 89 (80-100) mm/Hg HCO3 29.9 H (21-28) mmol/L ABG pH 7.52 H (7.35-7.45) ABG Total CO2 30.5 H (22-28) mmol/L ABG O2 Saturation 98.7 H (95-98) % ABG Base Excess 6.4 H (-2.0-3.0) mmol/L Pawel Test Pos ABG Potassium 3.2 L (3.6-5.2) mmol/L A-a O2 Difference 187.0 mm/Hg Respiratory Index 2.1 Sodium 146.0 (132-148) mmol/l Chloride 111.0 H (98-107) mmol/L Glucose 110 H (65-105) mg/dl Lactate 1.2 (0.7-2.1) mmol/L Vent Mode Prvc Mechanical Rate 20 FiO2 45.0 % Tidal Volume 450 PEEP 5 Potassium (3.6-5.2) mmol/L Carbon Dioxide (22-30) mmol/L Anion Gap (10-20) BUN (7-17) mg/dL Creatinine (0.7-1.2) mg/dL Est GFR ( Amer) Est GFR (Non-Af Amer) POC Glucose (mg/dL) 93 148 H (65-110) mg/dL Random Glucose (65-105) mg/dL Calcium (8.6-10.4) mg/dl Phosphorus (2.5-4.5) mg/dL Magnesium (1.6-2.3) mg/dL Total Bilirubin (0.2-1.3) mg/dL AST (14-36) U/L ALT (9-52) U/L Alkaline Phosphatase (38-126) U/L Total Protein (6.3-8.3) g/dL Albumin (3.5-5.0) g/dL Globulin (2.2-3.9) gm/dL Albumin/Globulin Ratio (1.0-2.1) Arterial Blood Potassium 3.2 L (3.6-5.2) mmol/L Random Vancomycin ug/mL 02/26/18 02/26/18 Range/Units 12:23 10:14 WBC (4.8-10.8) K/uL RBC (3.80-5.20) Mil/uL Hgb (11.0-16.0) g/dL Hct (34.0-47.0) % MCV (81.0-99.0) fL MCH (27.0-31.0) pg MCHC (33.0-37.0) g/dL RDW (11.5-14.5) % Plt Count (130-400) K/uL MPV (7.2-11.7) fL Neut % (Auto) (50.0-75.0) % Lymph % (Auto) (20.0-40.0) % Latimer % (Auto) (0.0-10.0) % Eos % (Auto) (0.0-4.0) % Baso % (Auto) (0.0-2.0) % Neut # (Auto) (1.8-7.0) K/uL Lymph # (Auto) (1.0-4.3) K/uL Latimer # (Auto) (0.0-0.8) K/uL Eos # (Auto) (0.0-0.7) K/uL Baso # (Auto) (0.0-0.2) K/uL Neutrophils % (Manual) (50-75) % Lymphocytes % (Manual) (20-40) % Monocytes % (Manual) (0-10) % Platelet Estimate (NORMAL) Large Platelets Polychromasia Hypochromasia (manual) Poikilocytosis (manual Anisocytosis (manual) Microcytosis (manual) Spherocytes Target Cells Tear Drop Cells Ovalocytes Schistocytes Puncture Site pCO2 (35-45) mm/Hg pO2 (80-100) mm/Hg HCO3 (21-28) mmol/L ABG pH (7.35-7.45) ABG Total CO2 (22-28) mmol/L ABG O2 Saturation (95-98) % ABG Base Excess (-2.0-3.0) mmol/L Pawel Test ABG Potassium (3.6-5.2) mmol/L A-a O2 Difference mm/Hg Respiratory Index Sodium (132-148) mmol/l Chloride (98-107) mmol/L Glucose (65-105) mg/dl Lactate (0.7-2.1) mmol/L Vent Mode Mechanical Rate FiO2 % Tidal Volume PEEP Potassium (3.6-5.2) mmol/L Carbon Dioxide (22-30) mmol/L Anion Gap (10-20) BUN (7-17) mg/dL Creatinine (0.7-1.2) mg/dL Est GFR ( Amer) Est GFR (Non-Af Amer) POC Glucose (mg/dL) 109 (65-110) mg/dL Random Glucose (65-105) mg/dL Calcium (8.6-10.4) mg/dl Phosphorus (2.5-4.5) mg/dL Magnesium (1.6-2.3) mg/dL Total Bilirubin (0.2-1.3) mg/dL AST (14-36) U/L ALT (9-52) U/L Alkaline Phosphatase (38-126) U/L Total Protein (6.3-8.3) g/dL Albumin (3.5-5.0) g/dL Globulin (2.2-3.9) gm/dL Albumin/Globulin Ratio (1.0-2.1) Arterial Blood Potassium (3.6-5.2) mmol/L Random Vancomycin 5.9 ug/mL Laboratory Results - last 24 hr 02/26/18 02/26/18 02/26/18 10:14 12:23 17:51 WBC RBC Hgb Hct MCV MCH MCHC RDW Plt Count MPV Neut % (Auto) Lymph % (Auto) Latimer % (Auto) Eos % (Auto) Baso % (Auto) Neut # (Auto) Lymph # (Auto) Latimer # (Auto) Eos # (Auto) Baso # (Auto) Neutrophils % (Manual) Lymphocytes % (Manual) Monocytes % (Manual) Platelet Estimate Large Platelets Polychromasia Hypochromasia (manual) Poikilocytosis (manual Anisocytosis (manual) Microcytosis (manual) Spherocytes Target Cells Tear Drop Cells Ovalocytes Schistocytes Puncture Site pCO2 pO2 HCO3 ABG pH ABG Total CO2 ABG O2 Saturation ABG Base Excess Pawel Test ABG Potassium A-a O2 Difference Respiratory Index Sodium Chloride Glucose Lactate Vent Mode Mechanical Rate FiO2 Tidal Volume PEEP Potassium Carbon Dioxide Anion Gap BUN Creatinine Est GFR ( Amer) Est GFR (Non-Af Amer) POC Glucose (mg/dL) 109 148 H Random Glucose Calcium Phosphorus Magnesium Total Bilirubin AST ALT Alkaline Phosphatase Total Protein Albumin Globulin Albumin/Globulin Ratio Arterial Blood Potassium Random Vancomycin 5.9 02/27/18 02/27/18 02/27/18 00:06 05:37 05:52 WBC RBC Hgb Hct MCV MCH MCHC RDW Plt Count MPV Neut % (Auto) Lymph % (Auto) Latimer % (Auto) Eos % (Auto) Baso % (Auto) Neut # (Auto) Lymph # (Auto) Latimer # (Auto) Eos # (Auto) Baso # (Auto) Neutrophils % (Manual) Lymphocytes % (Manual) Monocytes % (Manual) Platelet Estimate Large Platelets Polychromasia Hypochromasia (manual) Poikilocytosis (manual Anisocytosis (manual) Microcytosis (manual) Spherocytes Target Cells Tear Drop Cells Ovalocytes Schistocytes Puncture Site Rr pCO2 36 pO2 89 HCO3 29.9 H ABG pH 7.52 H ABG Total CO2 30.5 H ABG O2 Saturation 98.7 H ABG Base Excess 6.4 H Pawel Test Pos ABG Potassium 3.2 L A-a O2 Difference 187.0 Respiratory Index 2.1 Sodium 146.0 Chloride 111.0 H Glucose 110 H Lactate 1.2 Vent Mode Prvc Mechanical Rate 20 FiO2 45.0 Tidal Volume 450 PEEP 5 Potassium Carbon Dioxide Anion Gap BUN Creatinine Est GFR ( Amer) Est GFR (Non-Af Amer) POC Glucose (mg/dL) 93 75 Random Glucose Calcium Phosphorus Magnesium Total Bilirubin AST ALT Alkaline Phosphatase Total Protein Albumin Globulin Albumin/Globulin Ratio Arterial Blood Potassium 3.2 L Random Vancomycin 02/27/18 02/27/18 06:07 06:23 WBC 8.5 RBC 4.24 Hgb 10.2 L Hct 32.1 L MCV 75.9 L MCH 24.0 L MCHC 31.6 L RDW 24.5 H Plt Count 105 L MPV 9.4 Neut % (Auto) 82.3 H Lymph % (Auto) 9.0 L Latimer % (Auto) 8.4 Eos % (Auto) 0.2 Baso % (Auto) 0.1 Neut # (Auto) 7.0 Lymph # (Auto) 0.8 L Latimer # (Auto) 0.7 Eos # (Auto) 0.0 Baso # (Auto) 0.0 Neutrophils % (Manual) 79 H Lymphocytes % (Manual) 11 L Monocytes % (Manual) 10 Platelet Estimate Slightly decreased L Large Platelets Present Polychromasia Slight Hypochromasia (manual) Slight Poikilocytosis (manual Slight Anisocytosis (manual) Moderate Microcytosis (manual) Slight Spherocytes Slight Target Cells Slight Tear Drop Cells Slight Ovalocytes Slight Schistocytes Slight Puncture Site pCO2 pO2 HCO3 ABG pH ABG Total CO2 ABG O2 Saturation ABG Base Excess Pawel Test ABG Potassium A-a O2 Difference Respiratory Index Sodium 144 Chloride 104 Glucose Lactate Vent Mode Mechanical Rate FiO2 Tidal Volume PEEP Potassium 3.3 L Carbon Dioxide 30 Anion Gap 12 BUN 46 H Creatinine 1.4 H Est GFR ( Amer) 43 Est GFR (Non-Af Amer) 36 POC Glucose (mg/dL) Random Glucose 107 H Calcium 8.1 L Phosphorus 3.5 Magnesium 2.2 Total Bilirubin 2.1 H AST 14 D ALT 26 Alkaline Phosphatase 35 L Total Protein 4.9 L Albumin 2.8 L Globulin 2.1 L Albumin/Globulin Ratio 1.3 Arterial Blood Potassium Random Vancomycin Fingerstick Blood Sugar Results: 75 Review of Systems - Review of Systems Systems not reviewed;Unavailable: Intubated Critical Care Progress Note - Nutrition Nutrition: Nutrition Category Date Time Status NPO Diet [DIET] Diets 02/26/18 Breakfast Active Assessment/Plan - Assessment and Plan (Free Text) Assessment: 82 yo female admitted to ICU for sepsis, respiratory distress, and pleural effusion s/p thoracentesis -hypoxic respiratory failure: continue CPAP, extubate today -b/l pleural effusion: continue with thoracentesis -Chronic diastolic hert failure with A-fib: rate controlled: continue lovenox 60 mg q12 hrs as per cardiology -MEL: monitor urine output, avoid nephrotoxic drugs -Sepsis:remans afebrile, will de-escalate abx if no cultures obtained -ortho left houlder dislocation -continue dvt/pud ppx -PAtient tolerated CPAP trials with Fio2 to 30%, will extubate patient as RSBI 42 on 8:5 cc time 45 minutes
--- NOTE | 2018-02-27 10:48 | CP.PCM.PN ---
Subjective - Date & Time of Evaluation Date of Evaluation: 02/27/18 Time of Evaluation: 10:47 - Subjective Subjective: Podiatry Progress Note for Dr. Shah 82F seen at bedside in the ICU with Dr. Shah for b/l venous stasis ulceration to LE. Patient fell at home prompting her visit to the hospital. patient is currently intubated after rapid response was called on the patient yesterday. Nurse denies any other acute events. Objective - Vital Signs/Intake and Output Vital Signs (last 24 hours): Temp Pulse Resp BP Pulse Ox 97.7 F 88 17 115/74 90 L 02/27/18 08:00 02/27/18 09:21 02/27/18 09:21 02/27/18 09:21 02/27/18 09:21 Intake and Output: 02/27/18 02/27/18 06:59 18:59 Intake Total 588.8 261.6 Output Total 485 225 Balance 103.8 36.6 - Medications Medications: Current Medications Acetaminophen (Tylenol 325mg Tab) 650 mg PO Q6 PRN PRN Reason: Pain, moderate (4-7) Albumin Human (Albumin Human 25% (12.5 Gm/50 Ml)) 25 gm IV Q8H KEV Stop: 02/27/18 16:46 Last Admin: 02/27/18 09:37 Dose: 25 gm Albuterol/Ipratropium (Duoneb 3 Mg/0.5 Mg (3 Ml) Ud) 3 ml INH RQ4 KEV Last Admin: 02/27/18 08:12 Dose: 3 ml Enoxaparin Sodium (Lovenox) 60 mg SC Q12 KEV Last Admin: 02/26/18 22:43 Dose: 60 mg Dexmedetomidine HCl 200 mcg/ (Sodium Chloride) 50 mls @ 5.44 mls/hr IV TITR PRN; Protocol PRN Reason: Agitation Last Admin: 02/27/18 09:42 Dose: 0.19 mcg/kg/hr, 5.4 mls/hr Piperacillin Sod/Tazobactam Sod (Zosyn 3.375 Gm Iv Premix) 3.375 gm in 50 mls @ 100 mls/hr IVPB Q8H KEV; Protocol Last Admin: 02/27/18 02:41 Dose: 100 mls/hr Pantoprazole Sodium (Protonix Susp) 40 mg PO 0600 KEV Last Admin: 02/27/18 06:11 Dose: 40 mg Potassium Chloride (Potassium Chloride Oral Soln) 10 meq PO BID KEV Last Admin: 02/27/18 09:36 Dose: 10 meq - Labs Labs: 02/27/18 06:23 02/27/18 06:07 PT 18.6 SECONDS (9.7-12.2) H 02/25/18 12:53 INR 1.7 02/25/18 12:53 APTT 35 SECONDS (21-34) H 02/25/18 12:53 - Constitutional Appears: Well, Non-toxic - Head Exam Head Exam: ATRAUMATIC - Extremities Exam Additional comments: unna boots clean dry and intact. Vascular: pulses are palpable b/l, Tg warm to warm, Cft <3 secs x 10, no edema or erythema noted to bilateral lower extremities neuro: unable to assess derm: dry, flaky, hyperkeratotic skin noted to b/l LE distal to the knee joint, open wound noted to the psoterior aspect of the proximal 1/3rd of the leg measuring approximately 2.5 cm x 2.5cm with a granular base, active serosanguinous drinage noted, no malodor, no tracking or tunneling noted. Left leg: multiple superficial scabs noted to the proximal 1/3rd of the leg,no drainage, no malodor, no erythema or edema ortho: patient seems to flinch with palpation of the wound to the right leg . - Neurological Exam Neurological Exam: Alert, Normal Gait - Psychiatric Exam Psychiatric exam: Normal Affect - Skin Skin Exam: Normal Color Assessment and Plan - Assessment and Plan (Free Text) Assessment: 82 yo female seen and evaluated at bedside in the ICU for bilateral venous stasis wounds. Plan: patient seen and evaluated chart, labs and vitals reviewed; afebrile b/l legs dressed with telfa, gauze and DSD patient to be in multipodus boots at all times Podiatry will continue to follow the patient
--- NOTE | 2018-02-27 11:06 | CP.PCM.PN ---
Subjective - Date & Time of Evaluation Date of Evaluation: 02/27/18 Time of Evaluation: 11:04 - Subjective Subjective: pt seen and examined daughter by bed side still on ventilator but tolerated tria of cpap Objective - Vital Signs/Intake and Output Vital Signs (last 24 hours): Temp Pulse Resp BP Pulse Ox 97.7 F 92 H 22 101/75 90 L 02/27/18 08:00 02/27/18 10:51 02/27/18 10:51 02/27/18 10:51 02/27/18 10:51 Intake and Output: 02/27/18 02/27/18 06:59 18:59 Intake Total 588.8 261.6 Output Total 485 225 Balance 103.8 36.6 - Medications Medications: Current Medications Acetaminophen (Tylenol 325mg Tab) 650 mg PO Q6 PRN PRN Reason: Pain, moderate (4-7) Albumin Human (Albumin Human 25% (12.5 Gm/50 Ml)) 25 gm IV Q8H KEV Stop: 02/27/18 16:46 Last Admin: 02/27/18 09:37 Dose: 25 gm Albuterol/Ipratropium (Duoneb 3 Mg/0.5 Mg (3 Ml) Ud) 3 ml INH RQ4 KEV Last Admin: 02/27/18 08:12 Dose: 3 ml Enoxaparin Sodium (Lovenox) 60 mg SC Q12 KEV Last Admin: 02/26/18 22:43 Dose: 60 mg Dexmedetomidine HCl 200 mcg/ (Sodium Chloride) 50 mls @ 5.44 mls/hr IV TITR PRN; Protocol PRN Reason: Agitation Last Admin: 02/27/18 09:42 Dose: 0.19 mcg/kg/hr, 5.4 mls/hr Piperacillin Sod/Tazobactam Sod (Zosyn 3.375 Gm Iv Premix) 3.375 gm in 50 mls @ 100 mls/hr IVPB Q8H KEV; Protocol Last Admin: 02/27/18 02:41 Dose: 100 mls/hr Pantoprazole Sodium (Protonix Susp) 40 mg PO 0600 KEV Last Admin: 02/27/18 06:11 Dose: 40 mg Potassium Chloride (Potassium Chloride Oral Soln) 10 meq PO BID KEV Last Admin: 02/27/18 09:36 Dose: 10 meq - Labs Labs: 02/27/18 06:23 02/27/18 06:07 PT 18.6 SECONDS (9.7-12.2) H 02/25/18 12:53 INR 1.7 02/25/18 12:53 APTT 35 SECONDS (21-34) H 02/25/18 12:53 - Constitutional Appears: In Acute Distress - Head Exam Head Exam: ATRAUMATIC - Eye Exam Eye Exam: Normal appearance Pupil Exam: NORMAL ACCOMODATION - ENT Exam ENT Exam: Mucous Membranes Dry - Neck Exam Neck Exam: Full ROM - Respiratory Exam Respiratory Exam: Decreased Breath Sounds - Cardiovascular Exam Cardiovascular Exam: Irregular Rhythm - GI/Abdominal Exam GI & Abdominal Exam: Normal Bowel Sounds - Extremities Exam Extremities Exam: Pedal Edema Additional comments: celulitis - Skin Additional comments: redness and inflamation legs Assessment and Plan - Assessment and Plan (Free Text) Assessment: s.p ac respiratory failiur diasloic dysfunction tr aortic calcification at fib rate controled ameamia dm controled pleural efusion Plan: as pericu
[2018-02-27] MEDS: Verapamil 40 MG in Sodium Chloride 0.9% 84 ML IV SCH ×2 (12:25→20:43)
[2018-02-27 12:57] LABS: ARTERIAL BLOOD GAS HCO3 29.5 mmol/L (21-28); ARTERIAL BLOOD GAS O2 SAT 99.1 % (95-98); ARTERIAL BLOOD GAS PCO2 39 mm/Hg (35-45); ARTERIAL BLOOD GAS PH 7.49 (7.35-7.45); ARTERIAL BLOOD GAS PO2 85 mm/Hg (80-100); ARTERIAL BLOOD GAS TCO2 30.9 mmol/L (22-28)
--- NOTE | 2018-02-27 13:10 | RAD ---
Date of service: 02/27/2018 HISTORY: eval effusion COMPARISON: 02/26/2018 FINDINGS: LUNGS: Limited examination due to severe steep oblique positioning. No definite infiltrate. PLEURA: Small bilateral pleural effusion, left greater than right. No significant interval change. CARDIOVASCULAR: No aortic atherosclerotic calcification present. ETT, NG tube and right IJ central venous catheter are all grossly unchanged. No pulmonary vascular congestion. OSSEOUS STRUCTURES: No significant abnormalities. VISUALIZED UPPER ABDOMEN: Normal. OTHER FINDINGS: None. IMPRESSION: Small bilateral pleural effusion, left greater than right. Limited examination. Lines and tubes unchanged.
--- NOTE | 2018-02-27 13:48 | CP.PCM.PN ---
Subjective - Date & Time of Evaluation Date of Evaluation: 02/27/18 Time of Evaluation: 13:45 - Subjective Subjective: Extubated and on supplemental O2. Objective - Vital Signs/Intake and Output Vital Signs (last 24 hours): Temp Pulse Resp BP Pulse Ox 97.7 F 104 H 14 93/65 L 88 L 02/27/18 08:00 02/27/18 13:21 02/27/18 13:21 02/27/18 13:21 02/27/18 13:21 Intake and Output: 02/27/18 02/27/18 06:59 18:59 Intake Total 588.8 367.0 Output Total 485 280 Balance 103.8 87.0 - Medications Medications: Current Medications Acetaminophen (Tylenol 325mg Tab) 650 mg PO Q6 PRN PRN Reason: Pain, moderate (4-7) Albumin Human (Albumin Human 25% (12.5 Gm/50 Ml)) 25 gm IV Q8H [facility] Stop: 02/27/18 16:46 Last Admin: 02/27/18 09:37 Dose: 25 gm Albuterol/Ipratropium (Duoneb 3 Mg/0.5 Mg (3 Ml) Ud) 3 ml INH RQ4 KEV Last Admin: 02/27/18 13:26 Dose: 3 ml Enoxaparin Sodium (Lovenox) 60 mg SC Q12 KEV Last Admin: 02/26/18 22:43 Dose: 60 mg Piperacillin Sod/Tazobactam Sod (Zosyn 3.375 Gm Iv Premix) 3.375 gm in 50 mls @ 100 mls/hr IVPB Q8H KEV; Protocol Last Admin: 02/27/18 12:26 Dose: 100 mls/hr Verapamil HCl 40 mg/ Sodium (Chloride) 100 mls @ 12.5 mls/hr IV .Q8H KEV; Protocol Last Admin: 02/27/18 12:25 Dose: 12.5 mls/hr Pantoprazole Sodium (Protonix Susp) 40 mg PO 0600 KEV Last Admin: 02/27/18 06:11 Dose: 40 mg Potassium Chloride (Potassium Chloride Oral Soln) 10 meq PO BID KEV Last Admin: 02/27/18 09:36 Dose: 10 meq Verapamil HCl (Calan Tab) 40 mg PO Q8H KEV Last Admin: 02/27/18 12:36 Dose: Not Given - Labs Labs: 02/27/18 06:23 02/27/18 06:07 PT 18.6 SECONDS (9.7-12.2) H 02/25/18 12:53 INR 1.7 02/25/18 12:53 APTT 35 SECONDS (21-34) H 02/25/18 12:53 - Head Exam Head Exam: NORMOCEPHALIC - Neck Exam Neck Exam: Normal Inspection - Cardiovascular Exam Cardiovascular Exam: Irregular Rhythm - Neurological Exam Neurological Exam: Alert Assessment and Plan (1) CHF (congestive heart failure) Assessment & Plan: Improved, Diuretics on hold. Status: Acute (2) Atrial fibrillation and flutter Assessment & Plan: Rate borderline controlled. If not controlled possible JORDIN with cardioversion. Correct electrolyte abnormalities. Keep K.4 and Mg>2. Maintain therapeutic anticoagulation. Status: Acute
--- NOTE | 2018-02-27 14:21 | PCM.PROC ---
Procedures Attestation:: I certify that I have explained the specified Operation(s) or Procedure(s), risks, benefits and reasonable alternatives to the Patient and/or other person responsible. The opportunity was given to ask questions and all questions answered - Extubation Clinical Parameters: Resolution/Stabilization of disease process, Hemodynamically Stable, Intact Cough/Gag Reflex, Spontaneous Respirations, Acceptable Vent Settings (FIO2<50%, PEEP<8, PaO2>75, pH>7.25) Weaning Criteria Met: Yes General Weaning Approaches: SIMV Weaning, Pressure Support Ventilation (PSV) Weaning, Spontaneous breathing trials and use of T-Piece Patient Condition: Patient has been successfully extubated and assessed Oxygen Therapy: O2 via Room Air Patient Tolerated Procedure: Well - Paracentesis Consent Obtained: written consent Time Out Performed: Yes Indication: other (pleural effusion) Local Anesthetic Used: lidocaine 1%
[2018-02-27] MEDS: Enoxaparin 60 mg Syringe SC SCH ×2 (14:27→21:13)
[2018-02-27] MEDS ORDERED: Albumin Human 25% (12.5 gm/50 ml) IV ONE (14:36)
[2018-02-27 14:54] LABS: BODY FLUID TYPE PLEURAL/THORACENTESI
--- NOTE | 2018-02-27 15:16 | RAD ---
Date of service: 02/27/2018 HISTORY: S/P thoracentesis COMPARISON: 02/27/2018 FINDINGS: LUNGS: Opacity at right base may be due to dependent pleural fluid. No definite infiltrate. PLEURA: Moderate right pleural effusion. No definite left pleural effusion. Evaluation limited due to steep oblique positioning. CARDIOVASCULAR: No aortic atherosclerotic calcification present. Normal cardiac size. No pulmonary vascular congestion. OSSEOUS STRUCTURES: No significant abnormalities. VISUALIZED UPPER ABDOMEN: Normal. OTHER FINDINGS: None. IMPRESSION: Moderate right pleural effusion. Limited examination.
[2018-02-27 15:50] LABS: BF GROSS APPEARANCE CLOUDY (CLEAR)
[2018-02-27 15:55] LABS: BODY FLUID MONO/MACROPHAGE 8 % (0-0); BODY FLUID TOTAL COUNT 100 (0-0)
--- NOTE | 2018-02-27 19:45 | CP.PCM.PN ---
Subjective - Date & Time of Evaluation Date of Evaluation: 02/27/18 - Subjective Subjective: Patient seen and examined Status post bilateral thoracentesis Patient extubated Productive cough Afebrile Swallowing elevation antibiotics Nebulizer treatment Followup chest x-ray Objective - Vital Signs/Intake and Output Vital Signs (last 24 hours): Temp Pulse Resp BP Pulse Ox 99.8 F H 95 H 33 H 88/62 L 91 L 02/27/18 16:00 02/27/18 16:27 02/27/18 16:27 02/27/18 16:27 02/27/18 16:27 Intake and Output: 02/27/18 02/28/18 18:59 06:59 Intake Total 542.0 Output Total 1430 Balance -888.0 - Medications Medications: Current Medications Acetaminophen (Tylenol 325mg Tab) 650 mg PO Q6 PRN PRN Reason: Pain, moderate (4-7) Albuterol/Ipratropium (Duoneb 3 Mg/0.5 Mg (3 Ml) Ud) 3 ml INH RQ4 [facility] Last Admin: 02/27/18 13:26 Dose: 3 ml Enoxaparin Sodium (Lovenox) 60 mg SC Q12 [facility] Last Admin: 02/27/18 14:27 Dose: Not Given Piperacillin Sod/Tazobactam Sod (Zosyn 3.375 Gm Iv Premix) 3.375 gm in 50 mls @ 100 mls/hr IVPB Q8H [facility]; Protocol Last Admin: 02/27/18 18:31 Dose: 100 mls/hr Verapamil HCl 40 mg/ Sodium (Chloride) 100 mls @ 12.5 mls/hr IV .Q8H [facility]; Protocol Last Admin: 02/27/18 12:25 Dose: 12.5 mls/hr Pantoprazole Sodium (Protonix Susp) 40 mg PO 0600 [facility] Last Admin: 02/27/18 06:11 Dose: 40 mg Potassium Chloride (Potassium Chloride Oral Soln) 10 meq PO BID [facility] Last Admin: 02/27/18 18:32 Dose: 10 meq Verapamil HCl (Calan Tab) 40 mg PO Q8H [facility] Last Admin: 02/27/18 12:36 Dose: Not Given - Labs Labs: 02/27/18 06:23 02/27/18 06:07 PT 18.6 SECONDS (9.7-12.2) H 02/25/18 12:53 INR 1.7 02/25/18 12:53 APTT 35 SECONDS (21-34) H 02/25/18 12:53 Assessment and Plan (1) Acute respiratory failure Status: Acute (2) Pleural effusion Status: Acute (3) Atrial fibrillation and flutter Status: Acute (4) Dislocation of left shoulder joint Status: Acute
[2018-02-27] MEDS: Tramadol 25 mg PO PRN (21:37)
[2018-02-27 22:19] LABS: BASO # 0.1 K/uL (0.0-0.2); BASO % 0.6 % (0.0-2.0); EOS % 0.1 % (0.0-4.0); HEMOGLOBIN 10.2 g/dL (11.0-16.0); MEAN CELL VOLUME 76.5 fL (81.0-99.0); MEAN CORPUSCULAR HEMOGLOBIN 23.8 pg (27.0-31.0); MEAN CORPUSCULAR HGB CONC 31.1 g/dL (33.0-37.0); MEAN PLATELET VOLUME 9.1 fL (7.2-11.7); MONO % 9.8 % (0.0-10.0); NEUT # 8.3 K/uL (1.8-7.0); NEUT % 79.5 % (50.0-75.0); NRBC % 0.1 % (0.0-2.0); RBC 4.3 Mil/uL (3.80-5.20); RED CELL DISTRIBUTION WIDTH 24.3 % (11.5-14.5); WHITE BLOOD COUNT 10.5 K/uL (4.8-10.8)
[2018-02-28] MEDS: Albuterol-Ipratrop 3 mg / 0.5 (3 ml) UD INH SCH ×6 (00:27→20:25)
[2018-02-28] MEDS: Verapamil 40 MG in Sodium Chloride 0.9% 84 ML IV SCH ×3 (04:45→12:04)
[2018-02-28] MEDS: Pantoprazole 40 mg Susp UD PO SCH (05:15)
[2018-02-28 08:15] LABS: BASO % 0.5 % (0.0-2.0); EOS % 0.2 % (0.0-4.0); HEMOGLOBIN 10.6 g/dL (11.0-16.0); LYMPH # 0.8 K/uL (1.0-4.3); MEAN CELL VOLUME 77.6 fL (81.0-99.0); MEAN CORPUSCULAR HEMOGLOBIN 23.9 pg (27.0-31.0); MEAN CORPUSCULAR HGB CONC 30.7 g/dL (33.0-37.0); MEAN PLATELET VOLUME 9.6 fL (7.2-11.7); MONO # 1.1 K/uL (0.0-0.8); MONO % 12.3 % (0.0-10.0); NRBC % 0.4 % (0.0-2.0); PLATELET COUNT 102 K/uL (130-400); RBC 4.44 Mil/uL (3.80-5.20); RED CELL DISTRIBUTION WIDTH 24.1 % (11.5-14.5)
[2018-02-28 08:34] LABS: ALB/GLOB RATIO 1.3 (1.0-2.1); CALCIUM 8.5 mg/dl (8.6-10.4)
[2018-02-28 10:07] LABS: LYMPHOCYTE 8 % (20-40); MONOCYTE 11 % (0-10); NEUTROPHIL 81 % (50-75); TOTAL CELLS COUNTED 100
[2018-02-28 10:08] LABS: ANISOCYTOSIS MODERATE; MICROCYTOSIS SLIGHT; PLATELET ESTIMATE SLIGHTLY DECREASED (NORMAL); POIKILOCYTOSIS SLIGHT
[2018-02-28 10:09] LABS: HYPOCHROMIC MODERATE; OVALOCYTES SLIGHT; POLYCHROMIC SLIGHT; TARGET CELLS SLIGHT; TEARDROP CELLS SLIGHT
[2018-02-28 10:10] LABS: BURR CELLS SLIGHT; SCHISTOCYTES SLIGHT
[2018-02-28] MEDS: Enoxaparin 60 mg Syringe SC SCH ×2 (10:37→21:53)
--- NOTE | 2018-02-28 10:45 | CP.PCM.PN ---
Subjective - Date & Time of Evaluation Date of Evaluation: 02/28/18 Time of Evaluation: 10:43 - Subjective Subjective: Podiatry Progress Note for Dr. Shah 82F seen at bedside in the ICU with Dr. Shah for b/l venous stasis ulceration to LE. Daughter seen at bedside. Patient fell at home prompting her visit to the hospital. patient is extubated Patient states she is starting to feel better. Nurse denies any other acute events. Objective - Vital Signs/Intake and Output Vital Signs (last 24 hours): Temp Pulse Resp BP Pulse Ox 99.5 F 106 H 28 H 129/96 H 95 02/28/18 08:00 02/28/18 08:41 02/28/18 08:41 02/28/18 08:41 02/28/18 08:41 Intake and Output: 02/28/18 02/28/18 06:59 18:59 Intake Total 231.6 5.0 Output Total 300 40 Balance -68.4 -35.0 - Medications Medications: Current Medications Acetaminophen (Tylenol 325mg Tab) 650 mg PO Q6 PRN PRN Reason: Pain, moderate (4-7) Albuterol/Ipratropium (Duoneb 3 Mg/0.5 Mg (3 Ml) Ud) 3 ml INH RQ4 [facility] Last Admin: 02/28/18 07:44 Dose: 3 ml Enoxaparin Sodium (Lovenox) 60 mg SC Q12 [facility] Last Admin: 02/28/18 10:37 Dose: Not Given Verapamil HCl 40 mg/ Sodium (Chloride) 100 mls @ 12.5 mls/hr IV .Q8H [facility]; Protocol Last Admin: 02/28/18 04:45 Dose: Not Given Pantoprazole Sodium (Protonix Susp) 40 mg PO 0600 [facility] Last Admin: 02/28/18 05:15 Dose: 40 mg Potassium Chloride (Potassium Chloride Oral Soln) 10 meq PO BID [facility] Last Admin: 02/27/18 18:32 Dose: 10 meq Tramadol HCl (Ultram) 25 mg PO Q6H PRN PRN Reason: PAIN, SEVERE 8-10 Last Admin: 02/27/18 21:37 Dose: 25 mg Verapamil HCl (Calan Tab) 40 mg PO Q8H [facility] Last Admin: 02/28/18 04:44 Dose: 40 mg - Labs Labs: 02/28/18 08:10 11/25/18 08:10 PT 18.6 SECONDS (9.7-12.2) H 02/25/18 12:53 INR 1.7 02/25/18 12:53 APTT 35 SECONDS (21-34) H 02/25/18 12:53 - Constitutional Appears: Well, Non-toxic - Head Exam Head Exam: ATRAUMATIC - Extremities Exam Additional comments: Vascular: pulses are palpable b/l, Tg warm to warm, Cft <3 secs x 10, no edema or erythema noted to bilateral lower extremities neuro: unable to assess derm: dry, flaky, hyperkeratotic skin noted to b/l LE distal to the knee joint, open wound noted to the psoterior aspect of the proximal 1/3rd of the leg measuring approximately 2.5 cm x 2.5cm with a granular base, active serosanguinous drinage noted, no malodor, no tracking or tunneling noted. Left leg: multiple superficial scabs noted to the proximal 1/3rd of the leg,no drainage, no malodor, no erythema or edema ortho: patient seems to flinch with palpation of the wound to the right leg . - Neurological Exam Neurological Exam: Alert Assessment and Plan - Assessment and Plan (Free Text) Assessment: 82 yo female seen and evaluated at bedside in the ICU for bilateral venous stasis wounds. Plan: patient seen and evaluated chart, labs and vitals reviewed; afebrile Dressing dry, clean and intact. patient to be in multipodus boots at all times Podiatry will continue to follow the patient while in house.
[2018-02-28] MEDS: Potassium Chloride 20 mEq/15 ml LIQ UD PO SCH ×2 (10:53→17:43)
--- NOTE | 2018-02-28 12:01 | CP.PCM.PN ---
Subjective - Date & Time of Evaluation Date of Evaluation: 02/28/18 Time of Evaluation: 11:58 - Subjective Subjective: ot extubated still has ng tube had another thoracosyntesis yesterday a liter came out Objective - Vital Signs/Intake and Output Vital Signs (last 24 hours): Temp Pulse Resp BP Pulse Ox 99.5 F 104 H 26 H 116/86 94 L 02/28/18 08:00 02/28/18 11:00 02/28/18 11:00 02/28/18 10:56 02/28/18 11:00 Intake and Output: 02/28/18 02/28/18 06:59 18:59 Intake Total 231.6 72.5 Output Total 300 215 Balance -68.4 -142.5 - Medications Medications: Current Medications Acetaminophen (Tylenol 325mg Tab) 650 mg PO Q6 PRN PRN Reason: Pain, moderate (4-7) Albuterol/Ipratropium (Duoneb 3 Mg/0.5 Mg (3 Ml) Ud) 3 ml INH RQ4 [facility] Last Admin: 02/28/18 11:25 Dose: 3 ml Enoxaparin Sodium (Lovenox) 60 mg SC Q12 [facility] Last Admin: 02/28/18 10:37 Dose: Not Given Verapamil HCl 40 mg/ Sodium (Chloride) 100 mls @ 12.5 mls/hr IV .Q8H [facility]; Protocol Last Admin: 02/28/18 04:45 Dose: Not Given Pantoprazole Sodium (Protonix Susp) 40 mg PO 0600 [facility] Last Admin: 02/28/18 05:15 Dose: 40 mg Potassium Chloride (Potassium Chloride Oral Soln) 10 meq PO BID [facility] Last Admin: 02/28/18 10:53 Dose: 10 meq Tramadol HCl (Ultram) 25 mg PO Q6H PRN PRN Reason: PAIN, SEVERE 8-10 Last Admin: 02/27/18 21:37 Dose: 25 mg Verapamil HCl (Calan Tab) 40 mg PO Q8H [facility] Last Admin: 02/28/18 04:44 Dose: 40 mg - Labs Labs: 02/28/18 08:10 02/28/18 08:10 PT 18.6 SECONDS (9.7-12.2) H 02/25/18 12:53 INR 1.7 02/25/18 12:53 APTT 35 SECONDS (21-34) H 02/25/18 12:53 - Constitutional Appears: Non-toxic, In Acute Distress - Head Exam Head Exam: ATRAUMATIC - ENT Exam ENT Exam: Mucous Membranes Dry - Neck Exam Neck Exam: Full ROM - Cardiovascular Exam Cardiovascular Exam: Tachycardia - GI/Abdominal Exam GI & Abdominal Exam: Normal Bowel Sounds - Exam External exam: NORMAL EXTERNAL EXAM, Swelling - Extremities Exam Additional comments: celulitis both legs
--- NOTE | 2018-02-28 13:05 | CP.PCM.PN ---
Subjective - Date & Time of Evaluation Date of Evaluation: 02/28/18 Time of Evaluation: 12:58 - Subjective Subjective: No events, titrating fio2, awaiting swallow eval, patient awake, able to communicate, daughter at bedside, discussed the condition. Objective - Vital Signs/Intake and Output Vital Signs (last 24 hours): Temp Pulse Resp BP Pulse Ox 99.7 F H 102 H 23 106/82 97 02/28/18 12:00 02/28/18 12:41 02/28/18 12:41 02/28/18 12:41 02/28/18 12:41 Intake and Output: 02/28/18 02/28/18 06:59 18:59 Intake Total 231.6 135.0 Output Total 300 215 Balance -68.4 -80.0 - Medications Medications: Current Medications Acetaminophen (Tylenol 325mg Tab) 650 mg PO Q6 PRN PRN Reason: Pain, moderate (4-7) Albuterol/Ipratropium (Duoneb 3 Mg/0.5 Mg (3 Ml) Ud) 3 ml INH RQ4 [facility] Last Admin: 02/28/18 11:25 Dose: 3 ml Enoxaparin Sodium (Lovenox) 60 mg SC Q12 [facility] Last Admin: 02/28/18 10:37 Dose: Not Given Verapamil HCl 40 mg/ Sodium (Chloride) 100 mls @ 12.5 mls/hr IV .Q8H [facility]; Protocol Last Admin: 02/28/18 12:04 Dose: Not Given Pantoprazole Sodium (Protonix Susp) 40 mg PO 0600 [facility] Last Admin: 02/28/18 05:15 Dose: 40 mg Potassium Chloride (Potassium Chloride Oral Soln) 10 meq PO BID [facility] Last Admin: 02/28/18 10:53 Dose: 10 meq Tramadol HCl (Ultram) 25 mg PO Q6H PRN PRN Reason: PAIN, SEVERE 8-10 Last Admin: 02/27/18 21:37 Dose: 25 mg Verapamil HCl (Calan Tab) 40 mg PO Q8H [facility] Last Admin: 02/28/18 12:13 Dose: 40 mg - Labs Labs: 02/28/18 08:10 02/28/18 08:10 PT 18.6 SECONDS (9.7-12.2) H 02/25/18 12:53 INR 1.7 02/25/18 12:53 APTT 35 SECONDS (21-34) H 02/25/18 12:53 - Additional Findings Additional findings: * HEENT LYNN * Neck supple * Chest reduced bot basis, right>left * PA soft, * CVS irregular, tachycardia, on tele afib * Ext left shoulder immobilized due to dislocation, b/l lower ext chronic skin changes, purpulis discolouration * ELECTROTYPER awake able to communicated * Skin normal turgor Assessment and Plan - Assessment and Plan (Free Text) Assessment: * B/l Pl effusion, initial studies suggest exudate, but etiology not apparent yet * Resp failure due to above s/p tap, off vent on NC today * Afib rvr, rate controlled on verapamil iv and oral, on therapeutic anticoagulation * chronic stasis ulcer * left shoulder dislocation in sling * H/o DVT * Plan: * Swallow eval * PT/OT * anticoagulation for afib * Pulmonary following up on the pleural tap result * If v/s continue to remain stable may transfer to tele * See orders for detail.
--- NOTE | 2018-02-28 13:53 | CP.PCM.PN ---
Subjective - Date & Time of Evaluation Date of Evaluation: 02/28/18 Time of Evaluation: 13:52 - Subjective Subjective: Pulmonary, Covering Dr Amador The patient was Seen/interviewed and examined by me at the bedside, Medical records reviewed and Management issues were discussed and formulated with the house staff. Events reviewed Patient S/P Acute Respiratory failure secondary to pneumonia with B/l exudative Pleural effusion S/P thoracosyntesis Clinically improving, Afebrile Denies fever/chills, No chest pain Less shortness of breath, less cough Reamins NPO, NG tube feeding, Pending Swallow evaluation Adequate saturation on VTM 30% A-Fib on the monitor, HR controlled on verapamil drip at 2.5 mg/H Objective - Vital Signs/Intake and Output Vital Signs (last 24 hours): Temp Pulse Resp BP Pulse Ox 99.7 F H 102 H 23 106/82 97 02/28/18 12:00 02/28/18 12:41 02/28/18 12:41 02/28/18 12:41 02/28/18 12:41 Intake and Output: 02/28/18 02/28/18 06:59 18:59 Intake Total 231.6 135.0 Output Total 300 215 Balance -68.4 -80.0 - Medications Medications: Current Medications Acetaminophen (Tylenol 325mg Tab) 650 mg PO Q6 PRN PRN Reason: Pain, moderate (4-7) Albuterol/Ipratropium (Duoneb 3 Mg/0.5 Mg (3 Ml) Ud) 3 ml INH RQ4 [facility] Last Admin: 02/28/18 11:25 Dose: 3 ml Enoxaparin Sodium (Lovenox) 60 mg SC Q12 [facility] Last Admin: 02/28/18 10:37 Dose: Not Given Verapamil HCl 40 mg/ Sodium (Chloride) 100 mls @ 12.5 mls/hr IV .Q8H [facility]; Protocol Last Admin: 02/28/18 12:04 Dose: Not Given Piperacillin Sod/Tazobactam Sod (Zosyn 3.375 Gm Iv Premix) 3.375 gm in 50 mls @ 100 mls/hr IVPB Q8H [facility]; Protocol Pantoprazole Sodium (Protonix Susp) 40 mg PO 0600 [facility] Last Admin: 02/28/18 05:15 Dose: 40 mg Potassium Chloride (Potassium Chloride Oral Soln) 10 meq PO BID [facility] Last Admin: 02/28/18 10:53 Dose: 10 meq Tramadol HCl (Ultram) 25 mg PO Q6H PRN PRN Reason: PAIN, SEVERE 8-10 Last Admin: 02/27/18 21:37 Dose: 25 mg Verapamil HCl (Calan Tab) 40 mg PO Q8H [facility] Last Admin: 02/28/18 12:13 Dose: 40 mg - Labs Labs: 02/28/18 08:10 02/28/18 08:10 PT 18.6 SECONDS (9.7-12.2) H 02/25/18 12:53 INR 1.7 02/25/18 12:53 APTT 35 SECONDS (21-34) H 02/25/18 12:53 - Constitutional Appears: Well, Non-toxic, No Acute Distress - Head Exam Head Exam: absent: ATRAUMATIC, NORMAL INSPECTION, NORMOCEPHALIC - Eye Exam Eye Exam: EOMI, Normal appearance, PERRL - Neck Exam Neck Exam: Full ROM, Normal Inspection. absent: Lymphadenopathy, Tenderness - Respiratory Exam Respiratory Exam: Decreased Breath Sounds, Rhonchi. absent: Chest Wall Tenderness, Clear to Ausculation Bilateral, Rales, Wheezes - Cardiovascular Exam Cardiovascular Exam: Irregular Rhythm, +S1, +S2. absent: Bradycardia, Tachycardia, REGULAR RHYTHM, Murmur - GI/Abdominal Exam GI & Abdominal Exam: Soft, Normal Bowel Sounds. absent: Tenderness - Extremities Exam Extremities Exam: Pedal Edema. absent: Normal Inspection (b/l LE venous stasis ulceration to LE) - Back Exam Back Exam: NORMAL INSPECTION. absent: CVA tenderness (L), CVA tenderness (R) - Psychiatric Exam Psychiatric exam: Normal Affect, Normal Mood - Skin Skin Exam: Dry, Intact, Normal Color, Warm Assessment and Plan (1) Pleural effusion Status: Acute (2) Acute respiratory failure Status: Acute (3) Atrial fibrillation and flutter Status: Acute (4) CHF (congestive heart failure) Status: Acute (5) Toxic metabolic encephalopathy Status: Acute - Assessment and Plan (Free Text) Assessment: Continue IV Antibiotics with Zosyn 3.375 gm IVPB Q8H for total 7 days Continue Nebulizer treatment PRN for fever and pain Maintain aspiration precautions Swallow evaluations DVT PPX: Patient on Anticoagulation with Lovenox for A-Fib Ordered Repeat CXR in AM to re-evaluate pleural effusion, might need Rt Thoracocentesis Pt's current status is discussed with pt / pt's daughter
--- NOTE | 2018-02-28 14:26 | CP.PCM.PN ---
Subjective - Date & Time of Evaluation Date of Evaluation: 02/28/18 Time of Evaluation: 14:24 - Subjective Subjective: Extubated, Feeling OK. Have some cough. Other cool no new complaints. Objective - Vital Signs/Intake and Output Vital Signs (last 24 hours): Temp Pulse Resp BP Pulse Ox 99.7 F H 102 H 23 106/82 97 02/28/18 12:00 02/28/18 12:41 02/28/18 12:41 02/28/18 12:41 02/28/18 12:41 Intake and Output: 02/28/18 02/28/18 06:59 18:59 Intake Total 231.6 135.0 Output Total 300 215 Balance -68.4 -80.0 - Medications Medications: Current Medications Acetaminophen (Tylenol 325mg Tab) 650 mg PO Q6 PRN PRN Reason: Pain, moderate (4-7) Albuterol/Ipratropium (Duoneb 3 Mg/0.5 Mg (3 Ml) Ud) 3 ml INH RQ4 [facility] Last Admin: 02/28/18 11:25 Dose: 3 ml Enoxaparin Sodium (Lovenox) 60 mg SC Q12 [facility] Last Admin: 02/28/18 10:37 Dose: Not Given Verapamil HCl 40 mg/ Sodium (Chloride) 100 mls @ 12.5 mls/hr IV .Q8H [facility]; Protocol Last Admin: 02/28/18 12:04 Dose: Not Given Piperacillin Sod/Tazobactam Sod (Zosyn 3.375 Gm Iv Premix) 3.375 gm in 50 mls @ 100 mls/hr IVPB Q8H [facility]; Protocol Pantoprazole Sodium (Protonix Susp) 40 mg PO 0600 [facility] Last Admin: 02/28/18 05:15 Dose: 40 mg Potassium Chloride (Potassium Chloride Oral Soln) 10 meq PO BID [facility] Last Admin: 02/28/18 10:53 Dose: 10 meq Tramadol HCl (Ultram) 25 mg PO Q6H PRN PRN Reason: PAIN, SEVERE 8-10 Last Admin: 02/27/18 21:37 Dose: 25 mg Verapamil HCl (Calan Tab) 40 mg PO Q8H [facility] Last Admin: 02/28/18 12:13 Dose: 40 mg - Labs Labs: 02/28/18 08:10 02/28/18 08:10 PT 18.6 SECONDS (9.7-12.2) H 02/25/18 12:53 INR 1.7 02/25/18 12:53 APTT 35 SECONDS (21-34) H 02/25/18 12:53 - Head Exam Head Exam: NORMOCEPHALIC - Neck Exam Neck Exam: Normal Inspection - Cardiovascular Exam Cardiovascular Exam: Irregular Rhythm Additional comments: Atrial fibrillation. - Extremities Exam Extremities Exam: Pedal Edema - Neurological Exam Neurological Exam: Alert, Oriented x3 Assessment and Plan (1) CHF (congestive heart failure) Assessment & Plan: Improved, Hold diuretics for now. Status: Acute (2) Atrial fibrillation and flutter Assessment & Plan: Rate controlled. She is not an ideal candidate for oysterman anticoagulation. Add amiodarone in regimen, If not convetred to sinus rhythm will consider JORDIN with Cardioversion. Maintain electrolyte balance. Discussed with daughter at bed side. Status: Acute
[2018-02-28] MEDS: Piperacill/Tazo 3.375gm in Dex 3.375 GM/50 ML BAG IVPB SCH ×2 (15:00→22:15)
[2018-03-01] MEDS: Albuterol-Ipratrop 3 mg / 0.5 (3 ml) UD INH SCH ×6 (00:16→19:50)
[2018-03-01] MEDS: Tramadol 25 mg PO PRN ×3 (01:15→21:51)
[2018-03-01 05:48] LABS: BASO % 0.4 % (0.0-2.0); EOS # 0.1 K/uL (0.0-0.7); EOS % 0.7 % (0.0-4.0); HEMOGLOBIN 10.7 g/dL (11.0-16.0); LYMPH # 0.7 K/uL (1.0-4.3); LYMPH % 7.5 % (20.0-40.0); MEAN CELL VOLUME 78.4 fL (81.0-99.0); MEAN CORPUSCULAR HGB CONC 30.6 g/dL (33.0-37.0); MEAN PLATELET VOLUME 9.5 fL (7.2-11.7); MONO % 10.4 % (0.0-10.0); NEUT # 7.8 K/uL (1.8-7.0); NRBC % 0.8 % (0.0-2.0); PLATELET COUNT 110 K/uL (130-400); RBC 4.48 Mil/uL (3.80-5.20); RED CELL DISTRIBUTION WIDTH 24.9 % (11.5-14.5); WHITE BLOOD COUNT 9.7 K/uL (4.8-10.8)
[2018-03-01] MEDS: Piperacill/Tazo 3.375gm in Dex 3.375 GM/50 ML BAG IVPB SCH ×3 (06:00→22:01)
[2018-03-01 06:04] LABS: ALB/GLOB RATIO 1.2 (1.0-2.1); ALBUMIN 2.8 g/dL (3.5-5.0); CALCIUM 8.2 mg/dl (8.6-10.4)
[2018-03-01] MEDS: Pantoprazole 40 mg Susp UD PO SCH (06:10)
--- NOTE | 2018-03-01 07:41 | CP.CCUPN ---
CCU Subjective - Physician Review Subjective (Free Text): 02/26/18 12:46 Patient seen and examined at bedside. Patient is intubated. 03/01/18 11:11 Patient seen and examined at bedside. No acute events overnight. Patient is doing well and complains of a cough. No other complaints. Critical Care Time Spent (in minutes): 35 CCU Objective - Vital Signs / Intake & Output Vital Signs (Last 4 hours): Vital Signs Temp Pulse Resp BP Pulse Ox 03/01/18 07:20 102 H 20 122/86 97 03/01/18 07:00 97 H 22 95 03/01/18 06:20 99 H 18 122/90 99 03/01/18 06:00 101 H 20 98 03/01/18 05:20 108 H 16 112/91 H 94 L 03/01/18 05:00 101 H 18 97 03/01/18 04:20 105 H 18 122/85 97 03/01/18 04:00 97.7 F 104 H 18 98 Intake and Output (Last 8hrs): Intake & Output 02/28/18 03/01/18 03/01/18 22:59 06:59 14:59 Intake Total 147.5 80 Output Total 305 310 40 Balance -157.5 -230 -40 Weight 235 lb Intake: Intake, IV Amount 57.5 50 R jug. TLC medial port 7.5 50 R jug. TLC proximal port 50 Oral 30 30 Tube Feeding 0 Other 60 Output: Urine 305 310 40 Urethral ([place]) 305 310 40 - Physical Exam Head: Positive for: Atraumatic, Normocephalic Conjunctiva: Positive for: Normal Mouth: Positive for: Moist Mucous Membranes Respiratory/Chest: Positive for: Decreased Breath Sounds, Rhonchi, Other (Patient is intubated). Negative for: Clear to Auscultation, Respiratory Di stress, Accessory Muscle Use, Wheezes, Rales Cardiovascular: Positive for: Regular Rate and Rhythm, Normal S1, S2. Negative for: Murmurs, Rub, Gallop Abdomen: Positive for: Normal Bowel Sounds. Negative for: Distention Upper Extremity: Positive for: Other (edema) Lower Extremity: Positive for: Other Neurological: Negative for: GCS=15 Skin: Positive for: Warm, Dry, Rashes, Normal Color - Medications Active Medications: Active Medications Generic Name Dose Route Start Last Admin Trade Name Freq PRN Reason Stop Dose Admin Acetaminophen 650 mg 02/24/18 15:47 Tylenol 325mg Tab PO Q6 PRN Pain, moderate (4-7) Albuterol/Ipratropium 3 ml 02/25/18 12:00 03/01/18 03:16 Duoneb 3 Mg/0.5 Mg (3 Ml) Ud INH 3 ml RQ4 KEV Administration Enoxaparin Sodium 60 mg 02/26/18 22:00 02/28/18 21:53 Lovenox SC 60 mg Q12 KEV Administration Piperacillin Sod/Tazobactam Sod 3.375 gm in 50 mls @ 100 mls/hr 02/28/18 15:00 03/01/18 06:00 Zosyn 3.375 Gm Iv Premix IVPB 100 mls/hr Q8H KEV Administration Protocol Pantoprazole Sodium 40 mg 02/26/18 15:00 03/01/18 06:10 Protonix Susp PO 40 mg 0600 KEV Administration Potassium Chloride 10 meq 02/26/18 11:00 02/28/18 17:43 Potassium Chloride Oral Soln PO 10 meq BID KEV Administration Tramadol HCl 25 mg 02/27/18 20:55 03/01/18 01:15 Ultram PO 25 mg Q6H PRN Administration PAIN, SEVERE 8-10 Verapamil HCl 40 mg 02/27/18 11:45 03/01/18 03:26 Calan Tab PO 40 mg Q8H KEV Administration - Patient Studies Lab Studies: Microbiology Studies 02/25/18 14:07 Blood Culture - Preliminary Blood NO GROWTH AFTER 3 DAYS 02/25/18 14:07 Blood Culture - Preliminary Blood NO GROWTH AFTER 3 DAYS 02/25/18 12:50 Gram Stain - Final Body Fluid - Pleural Fluid Body Fluid Culture - Preliminary NO GROWTH AFTER 3 DAYS Lab Studies 03/01/18 03/01/18 03/01/18 Range/Units 05:37 05:37 05:18 WBC 9.7 (4.8-10.8) K/uL RBC 4.48 (3.80-5.20) Mil/uL Hgb 10.7 L (11.0-16.0) g/dL Hct 35.1 (34.0-47.0) % MCV 78.4 L (81.0-99.0) fL MCH 24.0 L (27.0-31.0) pg MCHC 30.6 L (33.0-37.0) g/dL RDW 24.9 H (11.5-14.5) % Plt Count 110 L (130-400) K/uL MPV 9.5 (7.2-11.7) fL Neut % (Auto) 81.0 H (50.0-75.0) % Lymph % (Auto) 7.5 L (20.0-40.0) % [place] % (Auto) 10.4 H (0.0-10.0) % Eos % (Auto) 0.7 (0.0-4.0) % Baso % (Auto) 0.4 (0.0-2.0) % Neut # (Auto) 7.8 H (1.8-7.0) K/uL Lymph # (Auto) 0.7 L (1.0-4.3) K/uL [place] # (Auto) 1.0 H (0.0-0.8) K/uL Eos # (Auto) 0.1 (0.0-0.7) K/uL Baso # (Auto) 0.0 (0.0-0.2) K/uL Neutrophils % (Manual) (50-75) % Lymphocytes % (Manual) (20-40) % Monocytes % (Manual) (0-10) % Platelet Estimate (NORMAL) Polychromasia Hypochromasia (manual) Poikilocytosis (manual Anisocytosis (manual) Microcytosis (manual) Target Cells Tear Drop Cells Ovalocytes [place] Cells Schistocytes Sodium 146 (132-148) mmol/L Potassium 3.9 (3.6-5.2) mmol/L Chloride 108 H (98-107) mmol/L Carbon Dioxide 30 (22-30) mmol/L Anion Gap 13 (10-20) BUN 42 H (7-17) mg/dL Creatinine 1.2 (0.7-1.2) mg/dL Est GFR ( Amer) 52 Est GFR (Non-Af Amer) 43 POC Glucose (mg/dL) 86 (65-110) mg/dL Random Glucose 93 (65-105) mg/dL Calcium 8.2 L (8.6-10.4) mg/dl Phosphorus 3.1 (2.5-4.5) mg/dL Magnesium 2.3 (1.6-2.3) mg/dL Total Bilirubin 2.2 H (0.2-1.3) mg/dL AST 14 (14-36) U/L ALT 22 (9-52) U/L Alkaline Phosphatase 34 L (38-126) U/L Total Protein 5.0 L (6.3-8.3) g/dL Albumin 2.8 L (3.5-5.0) g/dL Globulin 2.2 (2.2-3.9) gm/dL Albumin/Globulin Ratio 1.2 (1.0-2.1) Pleural LDH U/L Pleural Lipase (<10) U/L Pleur Adenosine Deamin (<9.2) U/L 03/01/18 02/28/18 02/28/18 Range/Units 00:06 18:00 11:50 WBC (4.8-10.8) K/uL RBC (3.80-5.20) Mil/uL Hgb (11.0-16.0) g/dL Hct (34.0-47.0) % MCV (81.0-99.0) fL MCH (27.0-31.0) pg MCHC (33.0-37.0) g/dL RDW (11.5-14.5) % Plt Count (130-400) K/uL MPV (7.2-11.7) fL Neut % (Auto) (50.0-75.0) % Lymph % (Auto) (20.0-40.0) % [place] % (Auto) (0.0-10.0) % Eos % (Auto) (0.0-4.0) % Baso % (Auto) (0.0-2.0) % Neut # (Auto) (1.8-7.0) K/uL Lymph # (Auto) (1.0-4.3) K/uL [place] # (Auto) (0.0-0.8) K/uL Eos # (Auto) (0.0-0.7) K/uL Baso # (Auto) (0.0-0.2) K/uL Neutrophils % (Manual) (50-75) % Lymphocytes % (Manual) (20-40) % Monocytes % (Manual) (0-10) % Platelet Estimate (NORMAL) Polychromasia Hypochromasia (manual) Poikilocytosis (manual Anisocytosis (manual) Microcytosis (manual) Target Cells Tear Drop Cells Ovalocytes [place] Cells Schistocytes Sodium (132-148) mmol/L Potassium (3.6-5.2) mmol/L Chloride (98-107) mmol/L Carbon Dioxide (22-30) mmol/L Anion Gap (10-20) BUN (7-17) mg/dL Creatinine (0.7-1.2) mg/dL Est GFR ( Amer) Est GFR (Non-Af Amer) POC Glucose (mg/dL) 105 88 88 (65-110) mg/dL Random Glucose (65-105) mg/dL Calcium (8.6-10.4) mg/dl Phosphorus (2.5-4.5) mg/dL Magnesium (1.6-2.3) mg/dL Total Bilirubin (0.2-1.3) mg/dL AST (14-36) U/L ALT (9-52) U/L Alkaline Phosphatase (38-126) U/L Total Protein (6.3-8.3) g/dL Albumin (3.5-5.0) g/dL Globulin (2.2-3.9) gm/dL Albumin/Globulin Ratio (1.0-2.1) Pleural LDH U/L Pleural Lipase (<10) U/L Pleur Adenosine Deamin (<9.2) U/L 02/28/18 02/28/18 02/28/18 Range/Units 08:10 08:10 07:15 WBC 9.0 (4.8-10.8) K/uL RBC 4.44 (3.80-5.20) Mil/uL Hgb 10.6 L (11.0-16.0) g/dL Hct 34.5 (34.0-47.0) % MCV 77.6 L (81.0-99.0) fL MCH 23.9 L (27.0-31.0) pg MCHC 30.7 L (33.0-37.0) g/dL RDW 24.1 H (11.5-14.5) % Plt Count 102 L (130-400) K/uL MPV 9.6 (7.2-11.7) fL Neut % (Auto) 78.0 H (50.0-75.0) % Lymph % (Auto) 9.0 L (20.0-40.0) % [place] % (Auto) 12.3 H (0.0-10.0) % Eos % (Auto) 0.2 (0.0-4.0) % Baso % (Auto) 0.5 (0.0-2.0) % Neut # (Auto) 7.0 (1.8-7.0) K/uL Lymph # (Auto) 0.8 L (1.0-4.3) K/uL [place] # (Auto) 1.1 H (0.0-0.8) K/uL Eos # (Auto) 0.0 (0.0-0.7) K/uL Baso # (Auto) 0.0 (0.0-0.2) K/uL Neutrophils % (Manual) 81 H (50-75) % Lymphocytes % (Manual) 8 L (20-40) % Monocytes % (Manual) 11 H (0-10) % Platelet Estimate Slightly decreased L (NORMAL) Polychromasia Slight Hypochromasia (manual) Moderate Poikilocytosis (manual Slight Anisocytosis (manual) Moderate Microcytosis (manual) Slight Target Cells Slight Tear Drop Cells Slight Ovalocytes Slight [place] Cells Slight Schistocytes Slight Sodium 144 (132-148) mmol/L Potassium 4.0 (3.6-5.2) mmol/L Chloride 103 (98-107) mmol/L Carbon Dioxide 31 H (22-30) mmol/L Anion Gap 14 (10-20) BUN 48 H (7-17) mg/dL Creatinine 1.5 H (0.7-1.2) mg/dL Est GFR ( Amer) 40 Est GFR (Non-Af Amer) 33 POC Glucose (mg/dL) 97 (65-110) mg/dL Random Glucose 98 (65-105) mg/dL Calcium 8.5 L (8.6-10.4) mg/dl Phosphorus 3.4 (2.5-4.5) mg/dL Magnesium 2.3 (1.6-2.3) mg/dL Total Bilirubin 2.4 H (0.2-1.3) mg/dL AST 14 (14-36) U/L ALT 23 (9-52) U/L Alkaline Phosphatase 29 L (38-126) U/L Total Protein 5.3 L (6.3-8.3) g/dL Albumin 3.0 L (3.5-5.0) g/dL Globulin 2.3 (2.2-3.9) gm/dL Albumin/Globulin Ratio 1.3 (1.0-2.1) Pleural LDH U/L Pleural Lipase (<10) U/L Pleur Adenosine Deamin (<9.2) U/L 02/25/18 02/25/18 02/25/18 Range/Units 14:23 12:50 12:50 WBC (4.8-10.8) K/uL RBC (3.80-5.20) Mil/uL Hgb (11.0-16.0) g/dL Hct (34.0-47.0) % MCV (81.0-99.0) fL MCH (27.0-31.0) pg MCHC (33.0-37.0) g/dL RDW (11.5-14.5) % Plt Count (130-400) K/uL MPV (7.2-11.7) fL Neut % (Auto) (50.0-75.0) % Lymph % (Auto) (20.0-40.0) % [place] % (Auto) (0.0-10.0) % Eos % (Auto) (0.0-4.0) % Baso % (Auto) (0.0-2.0) % Neut # (Auto) (1.8-7.0) K/uL Lymph # (Auto) (1.0-4.3) K/uL [place] # (Auto) (0.0-0.8) K/uL Eos # (Auto) (0.0-0.7) K/uL Baso # (Auto) (0.0-0.2) K/uL Neutrophils % (Manual) (50-75) % Lymphocytes % (Manual) (20-40) % Monocytes % (Manual) (0-10) % Platelet Estimate (NORMAL) Polychromasia Hypochromasia (manual) Poikilocytosis (manual Anisocytosis (manual) Microcytosis (manual) Target Cells Tear Drop Cells Ovalocytes [place] Cells Schistocytes Sodium (132-148) mmol/L Potassium (3.6-5.2) mmol/L Chloride (98-107) mmol/L Carbon Dioxide (22-30) mmol/L Anion Gap (10-20) BUN (7-17) mg/dL Creatinine (0.7-1.2) mg/dL Est GFR ( Amer) Est GFR (Non-Af Amer) POC Glucose (mg/dL) (65-110) mg/dL Random Glucose (65-105) mg/dL Calcium (8.6-10.4) mg/dl Phosphorus (2.5-4.5) mg/dL Magnesium (1.6-2.3) mg/dL Total Bilirubin (0.2-1.3) mg/dL AST (14-36) U/L ALT (9-52) U/L Alkaline Phosphatase (38-126) U/L Total Protein (6.3-8.3) g/dL Albumin (3.5-5.0) g/dL Globulin (2.2-3.9) gm/dL Albumin/Globulin Ratio (1.0-2.1) Pleural LDH 204 U/L Pleural Lipase 3.0 (<10) U/L Pleur Adenosine Deamin 2.3 (<9.2) U/L Laboratory Results - last 24 hr 02/25/18 02/25/18 02/25/18 12:50 12:50 14:23 WBC RBC Hgb Hct MCV MCH MCHC RDW Plt Count MPV Neut % (Auto) Lymph % (Auto) [place] % (Auto) Eos % (Auto) Baso % (Auto) Neut # (Auto) Lymph # (Auto) [place] # (Auto) Eos # (Auto) Baso # (Auto) Neutrophils % (Manual) Lymphocytes % (Manual) Monocytes % (Manual) Platelet Estimate Polychromasia Hypochromasia (manual) Poikilocytosis (manual Anisocytosis (manual) Microcytosis (manual) Target Cells Tear Drop Cells Ovalocytes [place] Cells Schistocytes Sodium Potassium Chloride Carbon Dioxide Anion Gap BUN Creatinine Est GFR ( Amer) Est GFR (Non-Af Amer) POC Glucose (mg/dL) Random Glucose Calcium Phosphorus Magnesium Total Bilirubin AST ALT Alkaline Phosphatase Total Protein Albumin Globulin Albumin/Globulin Ratio Pleural LDH 204 Pleural Lipase 3.0 Pleur Adenosine Deamin 2.3 02/28/18 02/28/18 02/28/18 07:15 08:10 08:10 WBC 9.0 RBC 4.44 Hgb 10.6 L Hct 34.5 MCV 77.6 L MCH 23.9 L MCHC 30.7 L RDW 24.1 H Plt Count 102 L MPV 9.6 Neut % (Auto) 78.0 H Lymph % (Auto) 9.0 L [place] % (Auto) 12.3 H Eos % (Auto) 0.2 Baso % (Auto) 0.5 Neut # (Auto) 7.0 Lymph # (Auto) 0.8 L [place] # (Auto) 1.1 H Eos # (Auto) 0.0 Baso # (Auto) 0.0 Neutrophils % (Manual) 81 H Lymphocytes % (Manual) 8 L Monocytes % (Manual) 11 H Platelet Estimate Slightly decreased L Polychromasia Slight Hypochromasia (manual) Moderate Poikilocytosis (manual Slight Anisocytosis (manual) Moderate Microcytosis (manual) Slight Target Cells Slight Tear Drop Cells Slight Ovalocytes Slight [place] Cells Slight Schistocytes Slight Sodium 144 Potassium 4.0 Chloride 103 Carbon Dioxide 31 H Anion Gap 14 BUN 48 H Creatinine 1.5 H Est GFR ( Amer) 40 Est GFR (Non-Af Amer) 33 POC Glucose (mg/dL) 97 Random Glucose 98 Calcium 8.5 L Phosphorus 3.4 Magnesium 2.3 Total Bilirubin 2.4 H AST 14 ALT 23 Alkaline Phosphatase 29 L Total Protein 5.3 L Albumin 3.0 L Globulin 2.3 Albumin/Globulin Ratio 1.3 Pleural LDH Pleural Lipase Pleur Adenosine Deamin 02/28/18 02/28/18 03/01/18 11:50 18:00 00:06 WBC RBC Hgb Hct MCV MCH MCHC RDW Plt Count MPV Neut % (Auto) Lymph % (Auto) [place] % (Auto) Eos % (Auto) Baso % (Auto) Neut # (Auto) Lymph # (Auto) [place] # (Auto) Eos # (Auto) Baso # (Auto) Neutrophils % (Manual) Lymphocytes % (Manual) Monocytes % (Manual) Platelet Estimate Polychromasia Hypochromasia (manual) Poikilocytosis (manual Anisocytosis (manual) Microcytosis (manual) Target Cells Tear Drop Cells Ovalocytes [place] Cells Schistocytes Sodium Potassium Chloride Carbon Dioxide Anion Gap BUN Creatinine Est GFR ( Amer) Est GFR (Non-Af Amer) POC Glucose (mg/dL) 88 88 105 Random Glucose Calcium Phosphorus Magnesium Total Bilirubin AST ALT Alkaline Phosphatase Total Protein Albumin Globulin Albumin/Globulin Ratio Pleural LDH Pleural Lipase Pleur Adenosine Deamin 03/01/18 03/01/18 03/01/18 05:18 05:37 05:37 WBC 9.7 RBC 4.48 Hgb 10.7 L Hct 35.1 MCV 78.4 L MCH 24.0 L MCHC 30.6 L RDW 24.9 H Plt Count 110 L MPV 9.5 Neut % (Auto) 81.0 H Lymph % (Auto) 7.5 L [place] % (Auto) 10.4 H Eos % (Auto) 0.7 Baso % (Auto) 0.4 Neut # (Auto) 7.8 H Lymph # (Auto) 0.7 L [place] # (Auto) 1.0 H Eos # (Auto) 0.1 Baso # (Auto) 0.0 Neutrophils % (Manual) Lymphocytes % (Manual) Monocytes % (Manual) Platelet Estimate Polychromasia Hypochromasia (manual) Poikilocytosis (manual Anisocytosis (manual) Microcytosis (manual) Target Cells Tear Drop Cells Ovalocytes [place] Cells Schistocytes Sodium 146 Potassium 3.9 Chloride 108 H Carbon Dioxide 30 Anion Gap 13 BUN 42 H Creatinine 1.2 Est GFR ( Amer) 52 Est GFR (Non-Af Amer) 43 POC Glucose (mg/dL) 86 Random Glucose 93 Calcium 8.2 L Phosphorus 3.1 Magnesium 2.3 Total Bilirubin 2.2 H AST 14 ALT 22 Alkaline Phosphatase 34 L Total Protein 5.0 L Albumin 2.8 L Globulin 2.2 Albumin/Globulin Ratio 1.2 Pleural LDH Pleural Lipase Pleur Adenosine Deamin Fingerstick Blood Sugar Results: 86 Critical Care Progress Note - Nutrition Nutrition: Nutrition Category Date Time Status NPO Diet [DIET] Diets 02/26/18 Breakfast Active Assessment/Plan - Assessment and Plan (Free Text) Assessment: 82 yo female admitted to ICU for sepsis, respiratory distress, and pleural effusions. Plan: Neuro: Rule out subdural hematoma s/p fall - CT Head (02/25): Mild chronic white matter ischemic changes. Previously noted scattered chronic bilateral basal nuclei lacunar type infarcts are less well seen on this study compared to prior exam. No acute intracranial hemorrhage. Moderate generalized volume loss. - Neurology consulted, Dr. Suarez Pulthelma: Pleural effusion - CXR (03/01): Bilateral pleural effusions, unchanged. - CT Abdomen (02/25): Large bilateral pleural effusions and compressive atelectasis at the lung bases. Anasarca. Cholelithiasis. Diverticulosis. - ABG: PCO2 39, PO2 85, Ph 7.49 - Zosyn 3.375g IV Q8 (Started on 02/25, stop on 03/04) - Pulmonology consulted, Dr. Amador - [place] Q4 - Acetylcysteine 20% 6mL Q12 - Speech and swallow evaluation - Incentive spirometer Cardiovascular: Heart failure with preserved EF - Echo (02/24): Normal LV systolic function, LVEF: 50%. Diastolic dysfunction. Calcified Aortic valve. Mild MR. Moderate to severe TR. - EKG (02/24): Atrial fibrillation @ 91 bpm - Cardiology consulted, Dr. velasquez - Lasix 20mg IV Q12 Atrial fibrillation - Verapamil 40mg PO Q8 Heme: Microcytic anemia - Hb/Hct: stable - Continue to monitor H&H Renal: MEL - resolved - Avoid nephrotoxins Endo: - No acute issues GI: - Tube feeds: Nepro Psych: - No acute issues ID: Sepsis - Code sepsis (02/25) - Zosyn 3.375g IV Q8 (Started on 02/25, stop on 03/04) - WBC: 10.7 - Lactate: 4.4 --> 1.5 - Patient afebrile Musculoskeletal: Shoulder dislocation - Ortho consulted, Dr. Reeves - Closed reduction left shoulder performed at bedside - Left shoulder dislocation in sling Prophylaxis: - Protonix 40mg PO QD - Lovenox 80mg SC Q12 Case discussed with Dr. Raf Seth, PGY-1
[2018-03-01 08:16] LABS: LYMPHOCYTE 5 % (20-40); MONOCYTE 12 % (0-10); NEUTROPHIL 83 % (50-75); NUCLEATED RED BLOOD CELL 1 % (0-0); PLATELET ESTIMATE SLIGHTLY DECREASED (NORMAL); TOTAL CELLS COUNTED 100
[2018-03-01 08:17] LABS: ANISOCYTOSIS SLIGHT; POIKILOCYTOSIS SLIGHT
[2018-03-01 08:18] LABS: BURR CELLS SLIGHT; HYPOCHROMIC SLIGHT; OVALOCYTES SLIGHT; POLYCHROMIC SLIGHT
[2018-03-01 08:19] LABS: TARGET CELLS SLIGHT
[2018-03-01] MEDS: Potassium Chloride 20 mEq/15 ml LIQ UD PO SCH ×2 (09:15→17:14)
[2018-03-01] MEDS: Enoxaparin 60 mg Syringe SC SCH (09:15)
--- NOTE | 2018-03-01 09:16 | RAD ---
Date of service: 03/01/2018 PROCEDURE: CHEST RADIOGRAPH, 1 VIEW HISTORY: Pleural effusion COMPARISON: 02/27/2018 FINDINGS: LUNGS: No definite infiltrate. Opacity at lung bases likely due to dependent pleural fluid. PLEURA: Moderate bilateral pleural effusion. No pneumothorax. CARDIOVASCULAR: NG tube and right IJ central venous catheter are unchanged. Heart size grossly normal. Mild congestive change. OSSEOUS STRUCTURES: No significant abnormalities. VISUALIZED UPPER ABDOMEN: Normal. OTHER FINDINGS: None. IMPRESSION: Bilateral pleural effusion, unchanged. No definite infiltrate. Lines and tubes unchanged.
--- NOTE | 2018-03-01 12:53 | CP.PCM.PN ---
Subjective - Date & Time of Evaluation Date of Evaluation: 03/01/18 Time of Evaluation: 12:50 - Subjective Subjective: Patient with daughter at bedside, comfortable. Shoulder pain improving. Also complaining of chronic right shoulder pain and weakness lifting. This is unchanged after fall. Denies numbness/tingling. Objective - Vital Signs/Intake and Output Vital Signs (last 24 hours): Temp Pulse Resp BP Pulse Ox 99.5 F 114 H 35 H 151/118 H 95 03/01/18 08:00 03/01/18 12:00 03/01/18 12:00 03/01/18 11:59 03/01/18 12:00 Intake and Output: 03/01/18 03/01/18 06:59 18:59 Intake Total 110 Output Total 465 40 Balance -355 -40 - Medications Medications: Current Medications Acetaminophen (Tylenol 325mg Tab) 650 mg PO Q6 PRN PRN Reason: Pain, moderate (4-7) Albuterol/Ipratropium (Duoneb 3 Mg/0.5 Mg (3 Ml) Ud) 3 ml INH RQ4 KEV Last Admin: 03/01/18 12:23 Dose: 3 ml Enoxaparin Sodium (Lovenox) 80 mg SC Q12 KEV Furosemide (Lasix) 20 mg IVP Q12 KEV Last Admin: 03/01/18 11:20 Dose: 20 mg Piperacillin Sod/Tazobactam Sod (Zosyn 3.375 Gm Iv Premix) 3.375 gm in 50 mls @ 100 mls/hr IVPB Q8H KEV; Protocol Last Admin: 03/01/18 06:00 Dose: 100 mls/hr Pantoprazole Sodium (Protonix Susp) 40 mg PO 0600 KEV Last Admin: 03/01/18 06:10 Dose: 40 mg Potassium Chloride (Potassium Chloride Oral Soln) 10 meq PO BID KEV Last Admin: 03/01/18 09:15 Dose: 10 meq Tramadol HCl (Ultram) 25 mg PO Q6H PRN PRN Reason: PAIN, SEVERE 8-10 Last Admin: 03/01/18 01:15 Dose: 25 mg Verapamil HCl (Calan Tab) 40 mg PO Q8H KEV Last Admin: 03/01/18 11:22 Dose: 40 mg - Labs Labs: 03/01/18 05:37 03/01/18 05:37 PT 18.6 SECONDS (9.7-12.2) H 02/25/18 12:53 INR 1.7 02/25/18 12:53 APTT 35 SECONDS (21-34) H 02/25/18 12:53 - Extremities Exam Additional comments: LUE: shoulder immobilizer intact, +ROM fingers flex/ext/abd/add, wrist flex/ext, sensation intact rad/ulnar/med nerve distrib +radial pulse, swelling to hand and forearm improved RUE: limited ROM right shoulder abd, noted mild swelling to wrist/forearm. encouraged elevation and AROM fingers, NVID Assessment and Plan (1) Dislocation of left shoulder joint Assessment & Plan: appears reduction maintained on subsequent CXR shoulder immob intact at all times PT/OT [facility] [place] d/w Dr. Reeves, agrees with above will follow up as outpatient Status: Acute (2) Abrasion of left elbow Status: Acute (3) Right rotator cuff tear arthropathy Assessment & Plan: high riding humeral head noted, with DJD consistent with chronic rotator cuff tear PT will address further as outpatient after recovered from left shoulder injury Status: Acute
--- NOTE | 2018-03-01 16:01 | CP.PCM.PN ---
Subjective - Date & Time of Evaluation Date of Evaluation: 03/01/18 Time of Evaluation: 09:20 - Subjective Subjective: Patient seen and examined at bedside, lying down comfortably. Patient complaints of cough. Afebrile and in no acute distress, breathing much better. Denies shortness of breath, chest pain, fever. CXR today shows bilateral pleural effusions, unchanged. ABG: PCO2 39, PO2 85, pH 7.49 Continue Zosyn and Duonebs Q4H. Speech and swallow evaluation ordered. Objective - Vital Signs/Intake and Output Vital Signs (last 24 hours): Temp Pulse Resp BP Pulse Ox 100.0 F H 99 H 33 H 160/101 H 95 03/01/18 12:00 03/01/18 15:00 03/01/18 15:00 03/01/18 14:58 03/01/18 15:00 Intake and Output: 03/01/18 03/01/18 06:59 18:59 Intake Total 110 270 Output Total 465 220 Balance -355 50 - Medications Medications: Current Medications Acetaminophen (Tylenol 325mg Tab) 650 mg PO Q6 PRN PRN Reason: Fever >100.4 F Albuterol/Ipratropium (Duoneb 3 Mg/0.5 Mg (3 Ml) Ud) 3 ml INH RQ4 KEV Last Admin: 03/01/18 12:23 Dose: 3 ml Enoxaparin Sodium (Lovenox) 80 mg SC Q12 KEV Furosemide (Lasix) 20 mg IVP Q12 KEV Last Admin: 03/01/18 11:20 Dose: 20 mg Piperacillin Sod/Tazobactam Sod (Zosyn 3.375 Gm Iv Premix) 3.375 gm in 50 mls @ 100 mls/hr IVPB Q8H [facility]; Protocol Last Admin: 03/01/18 14:17 Dose: 100 mls/hr Pantoprazole Sodium (Protonix Susp) 40 mg PO 0600 [facility] Last Admin: 03/01/18 06:10 Dose: 40 mg Potassium Chloride (Potassium Chloride Oral Soln) 10 meq PO BID KEV Last Admin: 03/01/18 09:15 Dose: 10 meq Tramadol HCl (Ultram) 25 mg PO Q6H PRN PRN Reason: PAIN, SEVERE 8-10 Last Admin: 03/01/18 14:02 Dose: 25 mg Verapamil HCl (Calan Tab) 40 mg PO Q8H KEV Last Admin: 03/01/18 11:22 Dose: 40 mg - Labs Labs: 03/01/18 05:37 03/01/18 05:37 PT 18.6 SECONDS (9.7-12.2) H 02/25/18 12:53 INR 1.7 02/25/18 12:53 APTT 35 SECONDS (21-34) H 02/25/18 12:53 Assessment and Plan (1) Acute respiratory failure Status: Acute (2) Pleural effusion Status: Acute (3) Atrial fibrillation and flutter Status: Acute (4) Dislocation of left shoulder joint Status: Acute
--- NOTE | 2018-03-01 18:25 | CP.PCM.PN ---
Subjective - Date & Time of Evaluation Date of Evaluation: 03/01/18 Time of Evaluation: 18:21 - Subjective Subjective: Sitting in bed, NG tube removed. have some SOB, No chest pain. Objective - Vital Signs/Intake and Output Vital Signs (last 24 hours): Temp Pulse Resp BP Pulse Ox 98.4 F 108 H 32 H 134/95 H 96 03/01/18 16:00 03/01/18 18:00 03/01/18 18:00 03/01/18 17:58 03/01/18 18:00 Intake and Output: 03/01/18 03/01/18 06:59 18:59 Intake Total 110 490 Output Total 465 230 Balance -355 260 - Medications Medications: Current Medications Acetaminophen (Tylenol 325mg Tab) 650 mg PO Q6 PRN PRN Reason: Fever >100.4 F Albuterol/Ipratropium (Duoneb 3 Mg/0.5 Mg (3 Ml) Ud) 3 ml INH RQ4 [facility] Last Admin: 03/01/18 17:08 Dose: 3 ml Enoxaparin Sodium (Lovenox) 80 mg SC Q12 KEV Furosemide (Lasix) 20 mg IVP Q12 [facility] Last Admin: 03/01/18 11:20 Dose: 20 mg Piperacillin Sod/Tazobactam Sod (Zosyn 3.375 Gm Iv Premix) 3.375 gm in 50 mls @ 100 mls/hr IVPB Q8H [facility]; Protocol Last Admin: 03/01/18 14:17 Dose: 100 mls/hr Pantoprazole Sodium (Protonix Susp) 40 mg PO 0600 [facility] Last Admin: 03/01/18 06:10 Dose: 40 mg Potassium Chloride (Potassium Chloride Oral Soln) 10 meq PO BID [facility] Last Admin: 03/01/18 17:14 Dose: 10 meq Tramadol HCl (Ultram) 25 mg PO Q6H PRN PRN Reason: PAIN, SEVERE 8-10 Last Admin: 03/01/18 14:02 Dose: 25 mg Verapamil HCl (Calan Tab) 40 mg PO Q8H [facility] Last Admin: 03/01/18 11:22 Dose: 40 mg - Labs Labs: 03/01/18 05:37 03/01/18 05:37 PT 18.6 SECONDS (9.7-12.2) H 02/25/18 12:53 INR 1.7 02/25/18 12:53 APTT 35 SECONDS (21-34) H 02/25/18 12:53 - Head Exam Head Exam: NORMOCEPHALIC - Neck Exam Neck Exam: Normal Inspection - Respiratory Exam Respiratory Exam: NORMAL BREATHING PATTERN - Cardiovascular Exam Cardiovascular Exam: Irregular Rhythm - Neurological Exam Neurological Exam: Alert, Oriented x3 Assessment and Plan (1) CHF (congestive heart failure) Assessment & Plan: Improved, continue fluid restriction. Maintain electrolyte balance. Status: Acute (2) Atrial fibrillation and flutter Assessment & Plan: Rate controlled, Given the high risk of falloptions were discussed with patient and daughter. They have agreed for JORDIN with possible cardioversion. Plan discussed withstaff. Load with amiodarone. Continue Cardizem and therapeutic anticoagulation for now. Status: Acute
--- NOTE | 2018-03-01 18:37 | CP.PCM.PN ---
Subjective - Date & Time of Evaluation Date of Evaluation: 03/01/18 Time of Evaluation: 18:34 - Subjective Subjective: pt is happy feels beter no tubs now able to eate Objective - Vital Signs/Intake and Output Vital Signs (last 24 hours): Temp Pulse Resp BP Pulse Ox 98.4 F 108 H 32 H 134/95 H 96 03/01/18 16:00 03/01/18 18:00 03/01/18 18:00 03/01/18 17:58 03/01/18 18:00 Intake and Output: 03/01/18 03/01/18 06:59 18:59 Intake Total 110 490 Output Total 465 230 Balance -355 260 - Medications Medications: Current Medications Acetaminophen (Tylenol 325mg Tab) 650 mg PO Q6 PRN PRN Reason: Fever >100.4 F Albuterol/Ipratropium (Duoneb 3 Mg/0.5 Mg (3 Ml) Ud) 3 ml INH RQ4 KEV Last Admin: 03/01/18 17:08 Dose: 3 ml Enoxaparin Sodium (Lovenox) 80 mg SC Q12 KEV Furosemide (Lasix) 20 mg IVP Q12 KEV Last Admin: 03/01/18 11:20 Dose: 20 mg Piperacillin Sod/Tazobactam Sod (Zosyn 3.375 Gm Iv Premix) 3.375 gm in 50 mls @ 100 mls/hr IVPB Q8H [facility]; Protocol Last Admin: 03/01/18 14:17 Dose: 100 mls/hr Amiodarone HCl 900 mg/ (Dextrose) 500 mls @ 33.33 mls/hr IV .Q15H1M KEV; P rotocol Stop: 03/02/18 00:26 Amiodarone HCl 900 mg/ (Dextrose) 518 mls @ 17 mls/hr IV Q24H KEV Stop: 03/02/18 16:26 Pantoprazole Sodium (Protonix Susp) 40 mg PO 0600 KEV Last Admin: 03/01/18 06:10 Dose: 40 mg Potassium Chloride (Potassium Chloride Oral Soln) 10 meq PO BID KEV Last Admin: 03/01/18 17:14 Dose: 10 meq Tramadol HCl (Ultram) 25 mg PO Q6H PRN PRN Reason: PAIN, SEVERE 8-10 Last Admin: 03/01/18 14:02 Dose: 25 mg Verapamil HCl (Calan Tab) 40 mg PO Q8H KEV Last Admin: 03/01/18 11:22 Dose: 40 mg - Labs Labs: 03/01/18 05:37 03/01/18 05:37 PT 18.6 SECONDS (9.7-12.2) H 02/25/18 12:53 INR 1.7 02/25/18 12:53 APTT 35 SECONDS (21-34) H 02/25/18 12:53 - Constitutional Appears: Non-toxic - Head Exam Head Exam: NORMAL INSPECTION - Eye Exam Eye Exam: Normal appearance Pupil Exam: NORMAL ACCOMODATION - ENT Exam ENT Exam: Mucous Membranes Moist - Neck Exam Neck Exam: Full ROM - Respiratory Exam Respiratory Exam: Decreased Breath Sounds - Cardiovascular Exam Cardiovascular Exam: Irregular Rhythm Additional comments: at fib - GI/Abdominal Exam GI & Abdominal Exam: Normal Bowel Sounds - Exam Exam: NORMAL INSPECTION - Extremities Exam Additional comments: celulitis dermatitislegs - Back Exam Back Exam: NORMAL INSPECTION - Neurological Exam Neurological Exam: Alert, Awake - Psychiatric Exam Psychiatric exam: Normal Affect, Normal Mood - Skin Skin Exam: Pallor Assessment and Plan - Assessment and Plan (Free Text) Assessment: at fib s/p pleural efusion improved s/p resp failiur improved generalised weekness pt started Plan: cont as per orders
[2018-03-01] MEDS ORDERED: Enoxaparin 100 mg Syringe SC SCH (22:00)
[2018-03-01] MEDS ORDERED: Enoxaparin 80 mg Syringe SC SCH (22:00)
[2018-03-02] MEDS ORDERED: Amiodarone 900 MG in Dextrose 5% In Water 500 ML IV SCH (00:26)
[2018-03-02] MEDS: Albuterol-Ipratrop 3 mg / 0.5 (3 ml) UD INH SCH ×7 (00:32→23:42)
[2018-03-02 06:10] LABS: BASO % 0.1 % (0.0-2.0); EOS # 0.1 K/uL (0.0-0.7); EOS % 0.6 % (0.0-4.0); LYMPH # 0.7 K/uL (1.0-4.3); LYMPH % 5.4 % (20.0-40.0); MEAN CELL VOLUME 79.3 fL (81.0-99.0); MEAN CORPUSCULAR HEMOGLOBIN 24.1 pg (27.0-31.0); MEAN CORPUSCULAR HGB CONC 30.3 g/dL (33.0-37.0); MEAN PLATELET VOLUME 9.8 fL (7.2-11.7); MONO # 1.2 K/uL (0.0-0.8); MONO % 9.6 % (0.0-10.0); NEUT # 10.5 K/uL (1.8-7.0); NEUT % 84.3 % (50.0-75.0); NRBC % 0.5 % (0.0-2.0); PLATELET COUNT 127 K/uL (130-400); RBC 4.57 Mil/uL (3.80-5.20); RED CELL DISTRIBUTION WIDTH 25.3 % (11.5-14.5); WHITE BLOOD COUNT 12.5 K/uL (4.8-10.8)
[2018-03-02] MEDS: Piperacill/Tazo 3.375gm in Dex 3.375 GM/50 ML BAG IVPB SCH ×3 (06:12→22:27)
[2018-03-02] MEDS: Pantoprazole 40 mg Susp UD PO SCH (06:20)
[2018-03-02 06:44] LABS: INR 1.6; PROTHROMBIN TIME 17.6 SECONDS (9.7-12.2)
[2018-03-02 06:44] LABS: ALB/GLOB RATIO 1.1 (1.0-2.1); ALBUMIN 2.6 g/dL (3.5-5.0); CALCIUM 8.2 mg/dl (8.6-10.4)
--- NOTE | 2018-03-02 07:43 | CP.CCUPN ---
<Gen Seth - Last Filed: 03/02/18 10:53> CCU Subjective - Physician Review Subjective (Free Text): 02/26/18 12:46 Patient seen and examined at bedside. Patient is intubated. 03/01/18 11:11 Patient seen and examined at bedside. No acute events overnight. Patient is doing well and complains of a cough. No other complaints. 03/02/18 10:53 Patient seen and examined at bedside. No acute events overnight. Right IJ TLC removed today and a midline inserted on right arm. Critical Care Time Spent (in minutes): 35 CCU Objective - Vital Signs / Intake & Output Vital Signs (Last 4 hours): Vital Signs Temp Pulse Resp BP Pulse Ox 03/02/18 05:58 97 H 19 111/83 100 03/02/18 04:58 94 H 18 109/80 100 03/02/18 04:00 98.5 F 03/02/18 03:58 91 H 19 105/79 100 Intake and Output (Last 8hrs): Intake & Output 03/01/18 03/02/18 03/02/18 22:59 06:59 14:59 Intake Total 528.2 361.8 Output Total 90 1425 Balance 438.2 -1063.2 Intake: Intake, IV Amount 233.2 161.8 R jug. TLC medial port 133.2 161.8 R jug. TLC proximal port 100 Oral 295 200 Output: Urine 90 1425 Urethral ([place]) 90 1425 Other: # Bowel Movements 0 0 - Physical Exam Head: Positive for: Atraumatic, Normocephalic Conjunctiva: Positive for: Normal Mouth: Positive for: Moist Mucous Membranes Respiratory/Chest: Positive for: Decreased Breath Sounds, Rhonchi, Other (Patient is intubated). Negative for: Clear to Auscultation, Respiratory Distress, Accessory Muscle Use, Wheezes, Rales Cardiovascular: Positive for: Regular Rate and Rhythm, Normal S1, S2. Negative for: Murmurs, Rub, Gallop Abdomen: Positive for: Normal Bowel Sounds. Negative for: Distention Upper Extremity: Positive for: Other (edema) Lower Extremity: Positive for: Other Neurological: Negative for: GCS=15 Skin: Positive for: Warm, Dry, Rashes, Normal Color - Medications Active Medications: Active Medications Generic Name Dose Route Start Last Admin Trade Name Freq PRN Reason Stop Dose Admin Acetaminophen 650 mg 03/01/18 13:17 03/02/18 00:00 Tylenol 325mg Tab PO 650 mg Q6 PRN Administration Fever >100.4 F Albuterol/Ipratropium 3 ml 02/25/18 12:00 03/02/18 03:44 Duoneb 3 Mg/0.5 Mg (3 Ml) Ud INH 3 ml RQ4 KEV Administration Enoxaparin Sodium 80 mg 03/01/18 22:00 03/01/18 22:32 Lovenox SC 80 mg Q12 KEV Administration Furosemide 20 mg 03/01/18 10:00 03/01/18 21:38 Lasix IVP 20 mg Q12 KEV Administration Piperacillin Sod/Tazobactam Sod 3.375 gm in 50 mls @ 100 mls/hr 02/28/18 15:00 03/02/18 06:12 Zosyn 3.375 Gm Iv Premix IVPB 100 mls/hr Q8H KEV Administration Protocol Amiodarone HCl 900 mg/ 518 mls @ 17 mls/hr 03/02/18 00:26 03/02/18 00:51 Dextrose IV 03/02/18 16:26 16.7 mls/hr Q24H KEV Administration Pantoprazole Sodium 40 mg 02/26/18 15:00 03/01/18 06:10 Protonix Susp PO 40 mg 0600 KEV Administration Potassium Chloride 10 meq 02/26/18 11:00 03/01/18 17:14 Potassium Chloride Oral Soln PO 10 meq BID KEV Administration Tramadol HCl 25 mg 02/27/18 20:55 03/01/18 21:51 Ultram PO 25 mg Q6H PRN Administration PAIN, SEVERE 8-10 Verapamil HCl 40 mg 03/02/18 06:00 03/02/18 06:12 Calan Tab PO 40 mg Q8H KEV Administration - Patient Studies Lab Studies: Microbiology Studies 02/25/18 14:07 Blood Culture - Preliminary Blood NO GROWTH AFTER 4 DAYS 02/25/18 14:07 Blood Culture - Preliminary Blood NO GROWTH AFTER 4 DAYS 02/25/18 12:50 Gram Stain - Final Body Fluid - Pleural Fluid Body Fluid Culture - Final No growth. Lab Studies 03/02/18 03/02/18 03/02/18 Range/Units 06:32 06:05 06:03 WBC 12.5 H (4.8-10.8) K/uL RBC 4.57 (3.80-5.20) Mil/uL Hgb 11.0 (11.0-16.0) g/dL Hct 36.3 (34.0-47.0) % MCV 79.3 L (81.0-99.0) fL MCH 24.1 L (27.0-31.0) pg MCHC 30.3 L (33.0-37.0) g/dL RDW 25.3 H (11.5-14.5) % Plt Count 127 L (130-400) K/uL MPV 9.8 (7.2-11.7) fL Neut % (Auto) 84.3 H (50.0-75.0) % Lymph % (Auto) 5.4 L (20.0-40.0) % [place] % (Auto) 9.6 (0.0-10.0) % Eos % (Auto) 0.6 (0.0-4.0) % Baso % (Auto) 0.1 (0.0-2.0) % Neut # (Auto) 10.5 H (1.8-7.0) K/uL Lymph # (Auto) 0.7 L (1.0-4.3) K/uL [place] # (Auto) 1.2 H (0.0-0.8) K/uL Eos # (Auto) 0.1 (0.0-0.7) K/uL Baso # (Auto) 0.0 (0.0-0.2) K/uL Neutrophils % (Manual) (50-75) % Lymphocytes % (Manual) (20-40) % Monocytes % (Manual) (0-10) % Nucleated RBC % (0-0) % Platelet Estimate (NORMAL) Polychromasia Hypochromasia (manual) Poikilocytosis (manual Anisocytosis (manual) Target Cells Ovalocytes [place] Cells PT 17.6 H (9.7-12.2) SECONDS INR 1.6 APTT 33 (21-34) SECONDS Sodium 143 (132-148) mmol/L Potassium 3.8 (3.6-5.2) mmol/L Chloride 104 (98-107) mmol/L Carbon Dioxide 33 H (22-30) mmol/L Anion Gap 11 (10-20) BUN 42 H (7-17) mg/dL Creatinine 1.3 H (0.7-1.2) mg/dL Est GFR ( Amer) 47 Est GFR (Non-Af Amer) 39 POC Glucose (mg/dL) (65-110) mg/dL Random Glucose 136 H (65-105) mg/dL Calcium 8.2 L (8.6-10.4) mg/dl Phosphorus 3.0 (2.5-4.5) mg/dL Magnesium 2.2 (1.6-2.3) mg/dL Total Bilirubin 2.1 H (0.2-1.3) mg/dL AST 12 L (14-36) U/L ALT 19 (9-52) U/L Alkaline Phosphatase 28 L (38-126) U/L Total Protein 5.0 L (6.3-8.3) g/dL Albumin 2.6 L (3.5-5.0) g/dL Globulin 2.4 (2.2-3.9) gm/dL Albumin/Globulin Ratio 1.1 (1.0-2.1) 03/01/18 03/01/18 03/01/18 Range/Units 23:52 18:11 11:17 WBC (4.8-10.8) K/uL RBC (3.80-5.20) Mil/uL Hgb (11.0-16.0) g/dL Hct (34.0-47.0) % MCV (81.0-99.0) fL MCH (27.0-31.0) pg MCHC (33.0-37.0) g/dL RDW (11.5-14.5) % Plt Count (130-400) K/uL MPV (7.2-11.7) fL Neut % (Auto) (50.0-75.0) % Lymph % (Auto) (20.0-40.0) % [place] % (Auto) (0.0-10.0) % Eos % (Auto) (0.0-4.0) % Baso % (Auto) (0.0-2.0) % Neut # (Auto) (1.8-7.0) K/uL Lymph # (Auto) (1.0-4.3) K/uL [place] # (Auto) (0.0-0.8) K/uL Eos # (Auto) (0.0-0.7) K/uL Baso # (Auto) (0.0-0.2) K/uL Neutrophils % (Manual) (50-75) % Lymphocytes % (Manual) (20-40) % Monocytes % (Manual) (0-10) % Nucleated RBC % (0-0) % Platelet Estimate (NORMAL) Polychromasia Hypochromasia (manual) Poikilocytosis (manual Anisocytosis (manual) Target Cells Ovalocytes [place] Cells PT (9.7-12.2) SECONDS INR APTT (21-34) SECONDS Sodium (132-148) mmol/L Potassium (3.6-5.2) mmol/L Chloride (98-107) mmol/L Carbon Dioxide (22-30) mmol/L Anion Gap (10-20) BUN (7-17) mg/dL Creatinine (0.7-1.2) mg/dL Est GFR ( Amer) Est GFR (Non-Af Amer) POC Glucose (mg/dL) 171 H 129 H 100 (65-110) mg/dL Random Glucose (65-105) mg/dL Calcium (8.6-10.4) mg/dl Phosphorus (2.5-4.5) mg/dL Magnesium (1.6-2.3) mg/dL Total Bilirubin (0.2-1.3) mg/dL AST (14-36) U/L ALT (9-52) U/L Alkaline Phosphatase (38-126) U/L Total Protein (6.3-8.3) g/dL Albumin (3.5-5.0) g/dL Globulin (2.2-3.9) gm/dL Albumin/Globulin Ratio (1.0-2.1) 03/01/18 Range/Units 05:37 WBC (4.8-10.8) K/uL RBC (3.80-5.20) Mil/uL Hgb (11.0-16.0) g/dL Hct (34.0-47.0) % MCV (81.0-99.0) fL MCH (27.0-31.0) pg MCHC (33.0-37.0) g/dL RDW (11.5-14.5) % Plt Count (130-400) K/uL MPV (7.2-11.7) fL Neut % (Auto) (50.0-75.0) % Lymph % (Auto) (20.0-40.0) % [place] % (Auto) (0.0-10.0) % Eos % (Auto) (0.0-4.0) % Baso % (Auto) (0.0-2.0) % Neut # (Auto) (1.8-7.0) K/uL Lymph # (Auto) (1.0-4.3) K/uL [place] # (Auto) (0.0-0.8) K/uL Eos # (Auto) (0.0-0.7) K/uL Baso # (Auto) (0.0-0.2) K/uL Neutrophils % (Manual) 83 H (50-75) % Lymphocytes % (Manual) 5 L (20-40) % Monocytes % (Manual) 12 H (0-10) % Nucleated RBC % 1 H (0-0) % Platelet Estimate Slightly decreased L (NORMAL) Polychromasia Slight Hypochromasia (manual) Slight Poikilocytosis (manual Slight Anisocytosis (manual) Slight Target Cells Slight Ovalocytes Slight Shalini Cells Slight PT (9.7-12.2) SECONDS INR APTT (21-34) SECONDS Sodium (132-148) mmol/L Potassium (3.6-5.2) mmol/L Chloride (98-107) mmol/L Carbon Dioxide (22-30) mmol/L Anion Gap (10-20) BUN (7-17) mg/dL Creatinine (0.7-1.2) mg/dL Est GFR ( Amer) Est GFR (Non-Af Amer) POC Glucose (mg/dL) (65-110) mg/dL Random Glucose (65-105) mg/dL Calcium (8.6-10.4) mg/dl Phosphorus (2.5-4.5) mg/dL Magnesium (1.6-2.3) mg/dL Total Bilirubin (0.2-1.3) mg/dL AST (14-36) U/L ALT (9-52) U/L Alkaline Phosphatase (38-126) U/L Total Protein (6.3-8.3) g/dL Albumin (3.5-5.0) g/dL Globulin (2.2-3.9) gm/dL Albumin/Globulin Ratio (1.0-2.1) Laboratory Results - last 24 hr 03/01/18 03/01/18 03/01/18 05:37 11:17 18:11 WBC RBC Hgb Hct MCV MCH MCHC RDW Plt Count MPV Neut % (Auto) Lymph % (Auto) [place] % (Auto) Eos % (Auto) Baso % (Auto) Neut # (Auto) Lymph # (Auto) [place] # (Auto) Eos # (Auto) Baso # (Auto) Neutrophils % (Manual) 83 H Lymphocytes % (Manual) 5 L Monocytes % (Manual) 12 H Nucleated RBC % 1 H Platelet Estimate Slightly decreased L Polychromasia Slight Hypochromasia (manual) Slight Poikilocytosis (manual Slight Anisocytosis (manual) Slight Target Cells Slight Ovalocytes Slight Shalini Cells Slight PT INR APTT Sodium Potassium Chloride Carbon Dioxide Anion Gap BUN Creatinine Est GFR ( Amer) Est GFR (Non-Af Amer) POC Glucose (mg/dL) 100 129 H Random Glucose Calcium Phosphorus Magnesium Total Bilirubin AST ALT Alkaline Phosphatase Total Protein Albumin Globulin Albumin/Globulin Ratio 03/01/18 03/02/18 03/02/18 23:52 06:03 06:05 WBC 12.5 H RBC 4.57 Hgb 11.0 Hct 36.3 MCV 79.3 L MCH 24.1 L MCHC 30.3 L RDW 25.3 H Plt Count 127 L MPV 9.8 Neut % (Auto) 84.3 H Lymph % (Auto) 5.4 L [place] % (Auto) 9.6 Eos % (Auto) 0.6 Baso % (Auto) 0.1 Neut # (Auto) 10.5 H Lymph # (Auto) 0.7 L [place] # (Auto) 1.2 H Eos # (Auto) 0.1 Baso # (Auto) 0.0 Neutrophils % (Manual) Lymphocytes % (Manual) Monocytes % (Manual) Nucleated RBC % Platelet Estimate Polychromasia Hypochromasia (manual) Poikilocytosis (manual Anisocytosis (manual) Target Cells Ovalocytes [place]ini Cells PT INR APTT Sodium 143 Potassium 3.8 Chloride 104 Carbon Dioxide 33 H Anion Gap 11 BUN 42 H Creatinine 1.3 H Est GFR ( Amer) 47 Est GFR (Non-Af Amer) 39 POC Glucose (mg/dL) 171 H Random Glucose 136 H Calcium 8.2 L Phosphorus 3.0 Magnesium 2.2 Total Bilirubin 2.1 H AST 12 L ALT 19 Alkaline Phosphatase 28 L Total Protein 5.0 L Albumin 2.6 L Globulin 2.4 Albumin/Globulin Ratio 1.1 03/02/18 06:32 WBC RBC Hgb Hct MCV MCH MCHC RDW Plt Count MPV Neut % (Auto) Lymph % (Auto) [place] % (Auto) Eos % (Auto) Baso % (Auto) Neut # (Auto) Lymph # (Auto) [place] # (Auto) Eos # (Auto) Baso # (Auto) Neutrophils % (Manual) Lymphocytes % (Manual) Monocytes % (Manual) Nucleated RBC % Platelet Estimate Polychromasia Hypochromasia (manual) Poikilocytosis (manual Anisocytosis (manual) Target Cells Ovalocytes [place] Cells PT 17.6 H INR 1.6 APTT 33 Sodium Potassium Chloride Carbon Dioxide Anion Gap BUN Creatinine Est GFR ( Amer) Est GFR (Non-Af Amer) POC Glucose (mg/dL) Random Glucose Calcium Phosphorus Magnesium Total Bilirubin AST ALT Alkaline Phosphatase Total Protein Albumin Globulin Albumin/Globulin Ratio Fingerstick Blood Sugar Results: 129 Critical Care Progress Note - Nutrition Nutrition: Nutrition Category Date Time Status Liquid Diet [DIET] Diets 03/01/18 Dinner Active Assessment/Plan - Assessment and Plan (Free Text) Assessment: 82 yo female admitted to ICU for sepsis, respiratory distress, and pleural effusions. Plan: Neuro: Rule out subdural hematoma s/p fall - CT Head (02/25): Mild chronic white matter ischemic changes. Previously noted scattered chronic bilateral basal nuclei lacunar type infarcts are less well seen on this study compared to prior exam. No acute intracranial hemorrhage. Moderate generalized volume loss. - Neurology consulted, Dr. Daniela Escobar: Pleural effusion - CXR (03/01): Bilateral pleural effusions, unchanged. - CT Abdomen (02/25): Large bilateral pleural effusions and compressive atelectasis at the lung bases. Anasarca. Cholelithiasis. Diverticulosis. - Pulmonology consulted, Dr. Perry - Duonebs Q4 - Incentive spirometer Cardiovascular: Heart failure with preserved EF - Echo (02/24): Normal LV systolic function, LVEF: 50%. Diastolic dysfunction. Calcified Aortic valve. Mild MR. Moderate to severe TR. - EKG (02/24): Atrial fibrillation @ 91 bpm - Cardiology consulted, Dr. Isidro - Lasix 20mg IV Q12 Atrial fibrillation - Verapamil 40mg PO Q8 - Amiodarone drip - Plan for JORDIN and Cardioversion on 03/03 - NPO after midnight - Hold anticoagulation after midnight Heme: Microcytic anemia - Hb/Hct: stable - Continue to monitor H&H Renal: MEL - BUN/Cr: 43/1.3 - Avoid nephrotoxins Endo: - No acute issues GI: - Passed speech and swallow evaluation - Dysphagia/modified consistency diet Psych: - No acute issues ID: Sepsis - Code sepsis (02/25) - Zosyn 3.375g IV Q8 (Started on 02/25, stop on 03/04) - WBC: 9.7-->12.5 - Lactate: 4.4 --> 1.5 - Patient afebrile - Sputum culture: No growth Musculoskeletal: Shoulder dislocation - Ortho consulted, Dr. Reeves - Closed reduction left shoulder performed at bedside - Left shoulder dislocation in sling Prophylaxis: - Protonix 40mg PO QD - Lovenox 100mg SC Q12 Case discussed with Dr. Perry Seth, PGY-1 <Zaheer Amador - Last Filed: 03/03/18 15:52> CCU Objective - Vital Signs / Intake & Output Intake and Output (Last 8hrs): Intake & Output 03/03/18 03/03/18 03/03/18 06:59 14:59 22:59 Intake Total 250 980 Output Total 300 200 Balance -50 780 Weight 230 lb 3.2 oz Intake: Intake, IV Amount 50 RA Midline 50 Oral 200 980 Output: Urine 300 200 Urine, Voided 300 200 - Medications Active Medications: Active Medications Generic Name Dose Route Start Last Admin Trade Name Freq PRN Reason Stop Dose Admin Acetaminophen 650 mg 03/01/18 13:17 03/02/18 00:00 Tylenol 325mg Tab PO 650 mg Q6 PRN Administration Fever >100.4 F Albuterol/Ipratropium 3 ml 02/25/18 12:00 03/03/18 13:17 Duoneb 3 Mg/0.5 Mg (3 Ml) Ud INH 3 ml RQ4 KEV Administration Amiodarone HCl 200 mg 03/03/18 10:00 03/03/18 10:25 Cordarone PO 200 mg DAILY KEV Administration Enoxaparin Sodium 100 mg 03/02/18 10:45 03/03/18 10:25 Lovenox SC 100 mg Q12 KEV Administration Furosemide 20 mg 03/01/18 10:00 03/03/18 10:26 Lasix IVP 20 mg Q12 KEV Administration Piperacillin Sod/Tazobactam Sod 3.375 gm in 50 mls @ 100 mls/hr 02/28/18 15:00 03/03/18 15:25 Zosyn 3.375 Gm Iv Premix IVPB 100 mls/hr Q8H KEV Administration Protocol Pantoprazole Sodium 40 mg 03/03/18 10:00 03/03/18 10:26 Protonix Ec Tab PO 40 mg DAILY KEV Administration Potassium Chloride 10 meq 02/26/18 11:00 03/03/18 10:25 Potassium Chloride Oral Soln PO 10 meq BID KEV Administration Tramadol HCl 25 mg 02/27/18 20:55 03/01/18 21:51 Ultram PO 25 mg Q6H PRN Administration PAIN, SEVERE 8-10 Verapamil HCl 40 mg 03/02/18 06:00 03/03/18 14:25 Calan Tab PO 40 mg Q8H KEV Administration - Patient Studies Lab Studies: Microbiology Studies 03/02/18 08:01 Urine Culture - Final Urine,[place] No Growth (<1,000 CFU/ML) 02/25/18 14:07 Blood Culture - Final Blood NO GROWTH AFTER 5 DAYS 02/25/18 14:07 Blood Culture - Final Blood NO GROWTH AFTER 5 DAYS Gram Stain - Final TEST NOT PERFORMED Lab Studies 03/03/18 03/03/18 02/27/18 Range/Units 04:40 04:40 14:52 WBC 11.5 H (4.8-10.8) K/uL RBC 4.60 (3.80-5.20) Mil/uL Hgb 10.9 L (11.0-16.0) g/dL Hct 36.5 (34.0-47.0) % MCV 79.4 L (81.0-99.0) fL MCH 23.7 L (27.0-31.0) pg MCHC 29.9 L (33.0-37.0) g/dL RDW 25.1 H (11.5-14.5) % Plt Count 137 (130-400) K/uL MPV 9.2 (7.2-11.7) fL Neut % (Auto) 83.4 H (50.0-75.0) % Lymph % (Auto) 5.4 L (20.0-40.0) % [place] % (Auto) 8.3 (0.0-10.0) % Eos % (Auto) 1.7 (0.0-4.0) % Baso % (Auto) 1.2 (0.0-2.0) % Neut # (Auto) 9.6 H (1.8-7.0) K/uL Lymph # (Auto) 0.6 L (1.0-4.3) K/uL [place] # (Auto) 1.0 H (0.0-0.8) K/uL Eos # (Auto) 0.2 (0.0-0.7) K/uL Baso # (Auto) 0.1 (0.0-0.2) K/uL Neutrophils % (Manual) 89 H (50-75) % Band Neutrophils % 1 (0-2) % Lymphocytes % (Manual) 4 L (20-40) % Monocytes % (Manual) 6 (0-10) % Platelet Estimate Normal (NORMAL) Hypochromasia (manual) Moderate Poikilocytosis (manual Slight Anisocytosis (manual) Slight Sodium 141 (132-148) mmol/L Potassium 4.1 (3.6-5.2) mmol/L Chloride 105 (98-107) mmol/L Carbon Dioxide 32 H (22-30) mmol/L Anion Gap 8 L (10-20) BUN 37 H (7-17) mg/dL Creatinine 1.1 (0.7-1.2) mg/dL Est GFR ( Amer) 57 Est GFR (Non-Af Amer) 47 Random Glucose 100 (65-105) mg/dL Calcium 8.0 L (8.6-10.4) mg/dl Phosphorus 3.2 (2.5-4.5) mg/dL Magnesium 2.1 (1.6-2.3) mg/dL Total Bilirubin 1.5 H (0.2-1.3) mg/dL AST 9 L D (14-36) U/L ALT 23 (9-52) U/L Alkaline Phosphatase 33 L (38-126) U/L Total Protein 4.9 L (6.3-8.3) g/dL Albumin 2.5 L (3.5-5.0) g/dL Globulin 2.4 (2.2-3.9) gm/dL Albumin/Globulin Ratio 1.0 (1.0-2.1) Pleural Fluid CEA <0.5 (<10.0) ng/mL Laboratory Results - last 24 hr 02/27/18 03/03/18 03/03/18 14:52 04:40 04:40 WBC 11.5 H RBC 4.60 Hgb 10.9 L Hct 36.5 MCV 79.4 L MCH 23.7 L MCHC 29.9 L RDW 25.1 H Plt Count 137 MPV 9.2 Neut % (Auto) 83.4 H Lymph % (Auto) 5.4 L [place] % (Auto) 8.3 Eos % (Auto) 1.7 Baso % (Auto) 1.2 Neut # (Auto) 9.6 H Lymph # (Auto) 0.6 L [place] # (Auto) 1.0 H Eos # (Auto) 0.2 Baso # (Auto) 0.1 Neutrophils % (Manual) 89 H Band Neutrophils % 1 Lymphocytes % (Manual) 4 L Monocytes % (Manual) 6 Platelet Estimate Normal Hypochromasia (manual) Moderate Poikilocytosis (manual Slight Anisocytosis (manual) Slight Sodium 141 Potassium 4.1 Chloride 105 Carbon Dioxide 32 H Anion Gap 8 L BUN 37 H Creatinine 1.1 Est GFR ( Amer) 57 Est GFR (Non-Af Amer) 47 Random Glucose 100 Calcium 8.0 L Phosphorus 3.2 Magnesium 2.1 Total Bilirubin 1.5 H AST 9 L D ALT 23 Alkaline Phosphatase 33 L Total Protein 4.9 L Albumin 2.5 L Globulin 2.4 Albumin/Globulin Ratio 1.0 Pleural Fluid CEA <0.5 Critical Care Progress Note - Nutrition Nutrition: Nutrition Category Date Time Status Dysphagia/Modified Consistency Diet [DIET] Diets 03/02/18 Breakfast Active NPO Diet [DIET] Diets 03/04/18 Breakfast Active Assessment/Plan (1) Acute respiratory failure Current Visit: Yes Status: Acute (2) Pleural effusion Current Visit: Yes Status: Acute (3) Atrial fibrillation and flutter Current Visit: Yes Status: Acute (4) Dislocation of left shoulder joint Current Visit: Yes Status: Acute Attending/Attestation - Attestation I have personally seen and examined this patient.: Yes I have fully participated in the care of the patient.: Yes I have reviewed all pertinent clinical information: Yes Notes (Text): 03/02/18 15:50 Patient seen and examined in the intensive care Comfortable in no distress patient is able to swallow Continue antibiotics pending JORDIN
[2018-03-02 08:19] LABS: LYMPHOCYTE 3 % (20-40); MONOCYTE 10 % (0-10); NEUTROPHIL 87 % (50-75); TOTAL CELLS COUNTED 100
[2018-03-02 08:20] LABS: ANISOCYTOSIS SLIGHT; HYPOCHROMIC SLIGHT; OVALOCYTES SLIGHT; PLATELET ESTIMATE SLIGHTLY DECREASED (NORMAL); POIKILOCYTOSIS SLIGHT
[2018-03-02 08:21] LABS: ACANTHOCYTES SLIGHT; GIANT PLATELETS PRESENT; LARGE PLATELETS PRESENT; TARGET CELLS SLIGHT; TEARDROP CELLS SLIGHT
[2018-03-02 08:30] LABS: SQUAMOUS EPITHIAL < 1 /hpf (0-5); URINE BACTERIA RARE (<OCC); URINE BILIRUBIN NEGATIVE (NEGATIVE); URINE BLOOD 3+ (NEGATIVE); URINE CLARITY Hazy (Clear); URINE COLOR Yellow (YELLOW); URINE GLUCOSE (UA) NORMAL (Normal); URINE LEUKOCYTE ESTERASE 1+ Leu/uL (Negative); URINE PROTEIN 1+ mg/dL (NEGATIVE)
--- NOTE | 2018-03-02 10:25 | CP.PCM.PN ---
Subjective - Date & Time of Evaluation Date of Evaluation: 03/02/18 Time of Evaluation: 10:21 - Subjective Subjective: Podiatry Progress Note: Dr. Shah 82 year old female evaluated at bedside for b/l venous stasis ulceration to LE. Daughter seen at bedside. Patient is AAOx3 and appears in NAD. Denies of having pain today. States she is feeling a lot better today. Denies of any acute overnight events. No recent F/N/V/C/SOB/CP/headache. No other pedal complains. Objective - Vital Signs/Intake and Output Vital Signs (last 24 hours): Temp Pulse Resp BP Pulse Ox 98.5 F 96 H 12 102/64 100 03/02/18 04:00 03/02/18 06:58 03/02/18 06:58 03/02/18 06:58 03/02/18 06:58 Intake and Output: 03/02/18 03/02/18 06:59 18:59 Intake Total 670.0 Output Total 1505 Balance -835.0 - Medications Medications: Current Medications Acetaminophen (Tylenol 325mg Tab) 650 mg PO Q6 PRN PRN Reason: Fever >100.4 F Last Admin: 03/02/18 00:00 Dose: 650 mg Albuterol/Ipratropium (Duoneb 3 Mg/0.5 Mg (3 Ml) Ud) 3 ml INH RQ4 [facility] Last Admin: 03/02/18 08:00 Dose: 3 ml Enoxaparin Sodium (Lovenox) 100 mg SC Q12 [facility] Furosemide (Lasix) 20 mg IVP Q12 [facility] Last Admin: 03/01/18 21:38 Dose: 20 mg Piperacillin Sod/Tazobactam Sod (Zosyn 3.375 Gm Iv Premix) 3.375 gm in 50 mls @ 100 mls/hr IVPB Q8H [facility]; Protocol Last Admin: 03/02/18 06:12 Dose: 100 mls/hr Amiodarone HCl 900 mg/ (Dextrose) 518 mls @ 17 mls/hr IV Q24H [facility] Stop: 03/02/18 16:26 Last Admin: 03/02/18 00:51 Dose: 16.7 mls/hr Pantoprazole Sodium (Protonix Susp) 40 mg PO 0600 [facility] Last Admin: 11/27/18 06:20 Dose: 40 mg Potassium Chloride (Potassium Chloride Oral Soln) 10 meq PO BID [facility] Last Admin: 03/01/18 17:14 Dose: 10 meq Tramadol HCl (Ultram) 25 mg PO Q6H PRN PRN Reason: PAIN, SEVERE 8-10 Last Admin: 03/01/18 21:51 Dose: 25 mg Verapamil HCl (Calan Tab) 40 mg PO Q8H [facility] Last Admin: 03/02/18 06:12 Dose: 40 mg - Labs Labs: 03/02/18 06:05 03/02/18 06:03 PT 17.6 SECONDS (9.7-12.2) H 03/02/18 06:32 INR 1.6 03/02/18 06:32 APTT 33 SECONDS (21-34) 03/02/18 06:32 - Constitutional Appears: Well, Non-toxic, No Acute Distress - Extremities Exam Additional comments: VASC: pulses are palpable b/l, Temp gradient warm to warm from proximal to distal, Cap refill time: <3 secs x 10, no edema or erythema noted to bilateral lower extremities DERM: dry, flaky, hyperkeratotic skin noted to b/l LE distal to the knee joint, open wound noted to the psoterior aspect of the proximal 1/3rd of the leg measuring approximately 2.5 cm x 2.5cm with a granular base, active serosanguinous drinage noted, no malodor, no tracking or tunneling noted. Left leg: multiple superficial scabs noted to the proximal 1/3rd of the leg,no drainage, no malodor, no erythema or edema NEURO: unable to assess ORTHO: Mild tenderness during palpation of the wound - Neurological Exam Neurological Exam: Alert, Awake, Oriented x3 - Psychiatric Exam Psychiatric exam: Normal Affect, Normal Mood Assessment and Plan - Assessment and Plan (Free Text) Assessment: 82 year old female evaluated in the ICU for bilateral venous stasis wounds. Plan: patient seen and evaluated Discussed plan with Dr. Shah chart, labs and vitals reviewed; afebrile Dressing dry, clean and intact - new dressing applied using Telfa, ABD, DSD, LEIDY Patient to be in multipodus boots at all times Stable from podiatry standpoint Podiatry will continue to follow the patient while in house
--- NOTE | 2018-03-02 10:28 | CP.PCM.PN ---
Subjective - Date & Time of Evaluation Date of Evaluation: 03/02/18 Time of Evaluation: 10:26 - Subjective Subjective: Patient with daughter at bedside. Patient comfortable. Says shoulder pain is controlled. Has been doing exercises for right hand/arm during day. Denies numbness/tinglign. Objective - Vital Signs/Intake and Output Vital Signs (last 24 hours): Temp Pulse Resp BP Pulse Ox 98.5 F 96 H 12 102/64 100 03/02/18 04:00 03/02/18 06:58 03/02/18 06:58 03/02/18 06:58 03/02/18 06:58 Intake and Output: 03/02/18 03/02/18 06:59 18:59 Intake Total 670.0 Output Total 1505 Balance -835.0 - Medications Medications: Current Medications Acetaminophen (Tylenol 325mg Tab) 650 mg PO Q6 PRN PRN Reason: Fever >100.4 F Last Admin: 03/02/18 00:00 Dose: 650 mg Albuterol/Ipratropium (Duoneb 3 Mg/0.5 Mg (3 Ml) Ud) 3 ml INH RQ4 [facility] Last Admin: 03/02/18 08:00 Dose: 3 ml Enoxaparin Sodium (Lovenox) 100 mg SC Q12 [facility] Furosemide (Lasix) 20 mg IVP Q12 [facility] Last Admin: 03/01/18 21:38 Dose: 20 mg Piperacillin Sod/Tazobactam Sod (Zosyn 3.375 Gm Iv Premix) 3.375 gm in 50 mls @ 100 mls/hr IVPB Q8H [facility]; Protocol Last Admin: 03/02/18 06:12 Dose: 100 mls/hr Amiodarone HCl 900 mg/ (Dextrose) 518 mls @ 17 mls/hr IV Q24H [facility] Stop: 03/02/18 16:26 Last Admin: 03/02/18 00:51 Dose: 16.7 mls/hr Pantoprazole Sodium (Protonix Susp) 40 mg PO 0600 [facility] Last Admin: 03/02/18 06:20 Dose: 40 mg Potassium Chloride (Potassium Chloride Oral Soln) 10 meq PO BID [facility] Last Admin: 03/01/18 17:14 Dose: 10 meq Tramadol HCl (Ultram) 25 mg PO Q6H PRN PRN Reason: PAIN, SEVERE 8-10 Last Admin: 03/01/18 21:51 Dose: 25 mg Verapamil HCl (Calan Tab) 40 mg PO Q8H [facility] Last Admin: 03/02/18 06:12 Dose: 40 mg - Labs Labs: 03/02/18 06:05 03/02/18 06:03 PT 17.6 SECONDS (9.7-12.2) H 03/02/18 06:32 INR 1.6 03/02/18 06:32 APTT 33 SECONDS (21-34) 03/02/18 06:32 - Extremities Exam Additional comments: Left shoulder: immob intact, swelling improving, +ROM fingers/wrist, sensation itnact rad/ulnar/med nerves +radial pulse Right hand: swelling improving, elevated, +ROM fingers, NVID Assessment and Plan (1) Dislocation of left shoulder joint Assessment & Plan: s/p CR at bedside shoulder immob intact at all times PT/OT [facility] [place] d/w Dr. Reeves, agrees with above will follow up as outpatient Status: Acute (2) Abrasion of left elbow Status: Acute (3) Right rotator cuff tear arthropathy Status: Acute
[2018-03-02] MEDS: Potassium Chloride 20 mEq/15 ml LIQ UD PO SCH ×2 (10:32→18:02)
[2018-03-02] MEDS: Enoxaparin 100 mg Syringe SC SCH ×2 (11:16→22:27)
--- NOTE | 2018-03-02 11:58 | CP.PCM.PN ---
Subjective - Date & Time of Evaluation Date of Evaluation: 03/02/18 Time of Evaluation: 11:56 - Subjective Subjective: pt awake comfortable still in bed Objective - Vital Signs/Intake and Output Vital Signs (last 24 hours): Temp Pulse Resp BP Pulse Ox 98.5 F 96 H 12 104/74 100 03/02/18 04:00 03/02/18 06:58 03/02/18 06:58 03/02/18 10:33 03/02/18 06:58 Intake and Output: 03/02/18 03/02/18 06:59 18:59 Intake Total 670.0 Output Total 1505 Balance -835.0 - Medications Medications: Current Medications Acetaminophen (Tylenol 325mg Tab) 650 mg PO Q6 PRN PRN Reason: Fever >100.4 F Last Admin: 03/02/18 00:00 Dose: 650 mg Albuterol/Ipratropium (Duoneb 3 Mg/0.5 Mg (3 Ml) Ud) 3 ml INH RQ4 [facility] Last Admin: 03/02/18 08:00 Dose: 3 ml Enoxaparin Sodium (Lovenox) 100 mg SC Q12 [facility] Last Admin: 03/02/18 11:16 Dose: 100 mg Furosemide (Lasix) 20 mg IVP Q12 [facility] Last Admin: 03/02/18 10:33 Dose: 20 mg Piperacillin Sod/Tazobactam Sod (Zosyn 3.375 Gm Iv Premix) 3.375 gm in 50 mls @ 100 mls/hr IVPB Q8H [facility]; Protocol Last Admin: 03/02/18 06:12 Dose: 100 mls/hr Amiodarone HCl 900 mg/ (Dextrose) 518 mls @ 17 mls/hr IV Q24H [facility] Stop: 03/02/18 16:26 Last Admin: 03/02/18 00:51 Dose: 16.7 mls/hr Pantoprazole Sodium (Protonix Ec Tab) 40 mg PO DAILY [facility] Potassium Chloride (Potassium Chloride Oral Soln) 10 meq PO BID [facility] Last Admin: 03/02/18 10:32 Dose: 10 meq Tramadol HCl (Ultram) 25 mg PO Q6H PRN PRN Reason: PAIN, SEVERE 8-10 Last Admin: 03/01/18 21:51 Dose: 25 mg Verapamil HCl (Calan Tab) 40 mg PO Q8H [facility] Last Admin: 03/02/18 06:12 Dose: 40 mg - Labs Labs: 03/02/18 06:05 03/02/18 06:03 PT 17.6 SECONDS (9.7-12.2) H 03/02/18 06:32 INR 1.6 03/02/18 06:32 APTT 33 SECONDS (21-34) 03/02/18 06:32 - Constitutional Appears: Non-toxic - Head Exam Head Exam: NORMAL INSPECTION - Eye Exam Eye Exam: Normal appearance Pupil Exam: NORMAL ACCOMODATION - ENT Exam ENT Exam: Mucous Membranes Moist - Neck Exam Neck Exam: Full ROM - Respiratory Exam Respiratory Exam: Decreased Breath Sounds - Cardiovascular Exam Cardiovascular Exam: Irregular Rhythm, +S1, +S2 - GI/Abdominal Exam GI & Abdominal Exam: Soft - Extremities Exam Extremities Exam: Full ROM Additional comments: dermatitis - Back Exam Back Exam: NORMAL INSPECTION - Neurological Exam Neurological Exam: Alert, Oriented x3 - Psychiatric Exam Psychiatric exam: Normal Affect - Skin Skin Exam: Pallor Assessment and Plan - Assessment and Plan (Free Text) Assessment: chf at fib generalised weekness uti Plan: start pt arrange for scarlett
[2018-03-02 13:26] LABS: LDH PLEURAL FLUID 151 U/L; TOTAL PROTEIN PLEURAL FLUID <3.0 g/dL; TRIGLYCERIDES PLEURAL FLUID 22 mg/dL
--- NOTE | 2018-03-02 15:40 | CP.PCM.PN ---
<[place]on - Last Filed: 03/02/18 15:30> Subjective - Date & Time of Evaluation Date of Evaluation: 03/02/18 Time of Evaluation: 11:20 - Subjective Subjective: PGY2 Neuro Note for Dr. Fay Patient seen and examined this morning at bedside. Patient is now without tubes, sitting up in bed. She states she is feeling much better now that all of the tubes are out of her. She is speaking clearly and in full sentences. Objective - Vital Signs/Intake and Output Vital Signs (last 24 hours): Temp Pulse Resp BP Pulse Ox 98 F 88 20 107/79 93 L 03/02/18 12:00 03/02/18 13:00 03/02/18 13:00 03/02/18 12:59 03/02/18 12:59 Intake and Output: 03/02/18 03/02/18 06:59 18:59 Intake Total 670.0 580.2 Output Total 1505 475 Balance -835.0 105.2 - Medications Medications: Current Medications Acetaminophen (Tylenol 325mg Tab) 650 mg PO Q6 PRN PRN Reason: Fever >100.4 F Last Admin: 03/02/18 00:00 Dose: 650 mg Albuterol/Ipratropium (Duoneb 3 Mg/0.5 Mg (3 Ml) Ud) 3 ml INH RQ4 [facility] Last Admin: 03/02/18 13:22 Dose: 3 ml Enoxaparin Sodium (Lovenox) 100 mg SC Q12 [facility] Last Admin: 03/02/18 11:16 Dose: 100 mg Furosemide (Lasix) 20 mg IVP Q12 [facility] Last Admin: 03/02/18 10:33 Dose: 20 mg Piperacillin Sod/Tazobactam Sod (Zosyn 3.375 Gm Iv Premix) 3.375 gm in 50 mls @ 100 mls/hr IVPB Q8H [facility]; Protocol Last Admin: 03/02/18 14:32 Dose: 100 mls/hr Amiodarone HCl 900 mg/ (Dextrose) 518 mls @ 17 mls/hr IV Q24H [facility] Stop: 03/02/18 16:26 Last Admin: 03/02/18 00:51 Dose: 16.7 mls/hr Pantoprazole Sodium (Protonix Ec Tab) 40 mg PO DAILY [facility] Potassium Chloride (Potassium Chloride Oral Soln) 10 meq PO BID [facility] Last Admin: 03/02/18 10:32 Dose: 10 meq Tramadol HCl (Ultram) 25 mg PO Q6H PRN PRN Reason: PAIN, SEVERE 8-10 Last Admin: 03/01/18 21:51 Dose: 25 mg Verapamil HCl (Calan Tab) 40 mg PO Q8H [facility] Last Admin: 03/02/18 14:32 Dose: 40 mg - Labs Labs: 03/02/18 06:05 03/02/18 06:03 PT 17.6 SECONDS (9.7-12.2) H 03/02/18 06:32 INR 1.6 03/02/18 06:32 APTT 33 SECONDS (21-34) 03/02/18 06:32 - Constitutional Appears: Non-toxic, No Acute Distress - Head Exam Head Exam: ATRAUMATIC, NORMAL INSPECTION, NORMOCEPHALIC - Eye Exam Eye Exam: EOMI, Normal appearance, PERRL - ENT Exam ENT Exam: Mucous Membranes Moist - Neurological Exam Neurological Exam: Alert, Awake, CN II-XII Intact, Oriented x3 Additional comments: AAOx3, speech is clear and precise, normal executive function, cerebellar function intact. - Psychiatric Exam Psychiatric exam: Normal Affect, Normal Mood - Skin Skin Exam: Dry, Normal Color, Warm Assessment and Plan (1) Toxic metabolic encephalopathy Assessment & Plan: Patient has greatly improved and appears to have returned to baseline mental status. Patient's daughter at bedside agrees. Patient is to continue current medical management of active medical conditions. Please re-consult as needed or call with any questions. Case discussed with Dr. Sumeet Ramon PGY2 Status: Resolved <Edouard Fay - Last Filed: 03/05/18 01:06> Objective - Vital Signs/Intake and Output Vital Signs (last 24 hours): Temp Pulse Resp BP Pulse Ox 97.9 F 154 H 21 110/73 80 L 03/04/18 16:00 03/04/18 21:40 03/04/18 21:00 03/04/18 22:30 03/04/18 21:40 Intake and Output: 03/04/18 03/05/18 18:59 06:59 Intake Total 515 Output Total 700 Balance -185 - Medications Medications: Current Medications Acetaminophen (Tylenol 325mg Tab) 650 mg PO Q6 PRN PRN Reason: Fever >100.4 F Last Admin: 03/02/18 00:00 Dose: 650 mg Albuterol/Ipratropium (Duoneb 3 Mg/0.5 Mg (3 Ml) Ud) 3 ml INH RQ4 [facility] Last Admin: 03/05/18 00:04 Dose: 3 ml Amiodarone HCl (Cordarone) 200 mg PO DAILY [facility] Last Admin: 03/04/18 11:51 Dose: 200 mg Apixaban (Eliquis) 5 mg PO BID [facility] Last Admin: 03/04/18 19:08 Dose: 5 mg Furosemide (Lasix) 20 mg IVP Q12 [facility] Last Admin: 03/04/18 22:30 Dose: 20 mg Piperacillin Sod/Tazobactam Sod (Zosyn 3.375 Gm Iv Premix) 3.375 gm in 50 mls @ 100 mls/hr IVPB Q8H [facility]; Protocol Last Admin: 03/04/18 23:27 Dose: 100 mls/hr Nystatin (Nystop Topical Powder) 1 applic TOP BID [facility] Last Admin: 03/04/18 19:04 Dose: 1 applic Pantoprazole Sodium (Protonix Ec Tab) 40 mg PO DAILY [facility] Last Admin: 03/04/18 11:51 Dose: 40 mg Potassium Chloride (Potassium Chloride Oral Soln) 10 meq PO BID [facility] Last Admin: 03/04/18 17:56 Dose: 10 meq Silver Sulfadiazine (Silvadene 1% 20 Gm) 1 ea TOP Q12H [facility] Last Admin: 03/04/18 19:04 Dose: 1 % Tramadol HCl (Ultram) 25 mg PO Q6H PRN PRN Reason: PAIN, SEVERE 8-10 Last Admin: 03/01/18 21:51 Dose: 25 mg Verapamil HCl (Calan Tab) 40 mg PO Q8H [facility] Last Admin: 03/04/18 22:27 Dose: 40 mg - Labs Labs: 03/04/18 05:45 03/04/18 05:45 PT 15.0 SECONDS (9.7-12.2) H 03/04/18 05:45 INR 1.4 03/04/18 05:45 APTT 35 SECONDS (21-34) H 03/04/18 05:45 Assessment and Plan - Assessment and Plan (Free Text) Assessment: I agree with the resident assessment and plan Thank you Dr. Fay
--- NOTE | 2018-03-02 17:18 | CARD ---
APPROVED REPORT Date of service: 02/26/2018 EKG Measurement Heart [id number] <Conclusion> Atrial fibrillation Low voltage QRS Abnormal ECG
--- NOTE | 2018-03-02 18:23 | CP.PCM.PN ---
Subjective - Date & Time of Evaluation Date of Evaluation: 03/02/18 Time of Evaluation: 18:20 - Subjective Subjective: Feeling better but still have some cough. Objective - Vital Signs/Intake and Output Vital Signs (last 24 hours): Temp Pulse Resp BP Pulse Ox 98.1 F 91 H 16 104/77 100 03/02/18 16:00 03/02/18 16:00 03/02/18 16:00 03/02/18 15:58 03/02/18 16:00 Intake and Output: 03/02/18 03/02/18 06:59 18:59 Intake Total 670.0 800.3 Output Total 1505 640 Balance -835.0 160.3 - Medications Medications: Current Medications Acetaminophen (Tylenol 325mg Tab) 650 mg PO Q6 PRN PRN Reason: Fever >100.4 F Last Admin: 03/02/18 00:00 Dose: 650 mg Albuterol/Ipratropium (Duoneb 3 Mg/0.5 Mg (3 Ml) Ud) 3 ml INH RQ4 [facility] Last Admin: 03/02/18 15:43 Dose: 3 ml Amiodarone HCl (Cordarone) 200 mg PO DAILY [facility] Enoxaparin Sodium (Lovenox) 100 mg SC Q12 [facility] Last Admin: 03/02/18 11:16 Dose: 100 mg Furosemide (Lasix) 20 mg IVP Q12 [facility] Last Admin: 03/02/18 10:33 Dose: 20 mg Piperacillin Sod/Tazobactam Sod (Zosyn 3.375 Gm Iv Premix) 3.375 gm in 50 mls @ 100 mls/hr IVPB Q8H [facility]; Protocol Last Admin: 03/02/18 14:32 Dose: 100 mls/hr Pantoprazole Sodium (Protonix Ec Tab) 40 mg PO DAILY [facility] Potassium Chloride (Potassium Chloride Oral Soln) 10 meq PO BID [facility] Last Admin: 03/02/18 18:02 Dose: 10 meq Tramadol HCl (Ultram) 25 mg PO Q6H PRN PRN Reason: PAIN, SEVERE 8-10 Last Admin: 03/01/18 21:51 Dose: 25 mg Verapamil HCl (Calan Tab) 40 mg PO Q8H [facility] Last Admin: 03/02/18 14:32 Dose: 40 mg - Labs Labs: 03/02/18 06:05 03/02/18 06:03 PT 17.6 SECONDS (9.7-12.2) H 03/02/18 06:32 INR 1.6 03/02/18 06:32 APTT 33 SECONDS (21-34) 03/02/18 06:32 - Head Exam Head Exam: NORMOCEPHALIC - Neck Exam Neck Exam: Normal Inspection - Respiratory Exam Respiratory Exam: NORMAL BREATHING PATTERN - Cardiovascular Exam Cardiovascular Exam: Irregular Rhythm, REGULAR RHYTHM - Neurological Exam Neurological Exam: Alert, Oriented x3 Assessment and Plan (1) CHF (congestive heart failure) Assessment & Plan: Improved, continue current care. Status: Acute (2) Atrial fibrillation and flutter Assessment & Plan: Rate not well controlled, continue Amiodarone wit therapeutic anticoagulation. Status: Acute
[2018-03-03] MEDS: Albuterol-Ipratrop 3 mg / 0.5 (3 ml) UD INH SCH ×5 (04:01→19:26)
[2018-03-03 04:43] LABS: BASO # 0.1 K/uL (0.0-0.2); BASO % 1.2 % (0.0-2.0); EOS # 0.2 K/uL (0.0-0.7); EOS % 1.7 % (0.0-4.0); HEMOGLOBIN 10.9 g/dL (11.0-16.0); LYMPH # 0.6 K/uL (1.0-4.3); LYMPH % 5.4 % (20.0-40.0); MEAN CELL VOLUME 79.4 fL (81.0-99.0); MEAN CORPUSCULAR HEMOGLOBIN 23.7 pg (27.0-31.0); MEAN CORPUSCULAR HGB CONC 29.9 g/dL (33.0-37.0); MEAN PLATELET VOLUME 9.2 fL (7.2-11.7); MONO % 8.3 % (0.0-10.0); NEUT # 9.6 K/uL (1.8-7.0); NEUT % 83.4 % (50.0-75.0); NRBC % 0.3 % (0.0-2.0); PLATELET COUNT 137 K/uL (130-400); RED CELL DISTRIBUTION WIDTH 25.1 % (11.5-14.5); WHITE BLOOD COUNT 11.5 K/uL (4.8-10.8)
[2018-03-03 05:15] LABS: ALBUMIN 2.5 g/dL (3.5-5.0)
[2018-03-03 05:31] LABS: BANDS 1 % (0-2); TOTAL CELLS COUNTED 100
[2018-03-03 05:32] LABS: ANISOCYTOSIS SLIGHT; HYPOCHROMIC MODERATE; LYMPHOCYTE 4 % (20-40); MONOCYTE 6 % (0-10); NEUTROPHIL 89 % (50-75); PLATELET ESTIMATE NORMAL (NORMAL); POIKILOCYTOSIS SLIGHT
[2018-03-03] MEDS: Piperacill/Tazo 3.375gm in Dex 3.375 GM/50 ML BAG IVPB SCH ×3 (06:03→22:30)
[2018-03-03 07:16] LABS: CEA PLEURAL FLUID <0.5 ng/mL (<10.0)
--- NOTE | 2018-03-03 08:08 | RAD ---
Date of service: 03/03/2018 HISTORY: CHF/eval pleural effusions COMPARISON: Portable chest 03/01/2018. FINDINGS: LUNGS: Prior right central venous line and nasogastric tube now removed apparently. Diminished pulmonary volumes reiterated. Mild increase in patchy airspace disease at the mid inferior right lung zones with underlying airspace disease not excluded the left base. PLEURA: Bilateral pleural effusions slightly diminished at the left borderline increased at the right. No pneumothorax bilaterally. CARDIOVASCULAR: Calcific atherosclerotic changes are seen related to the thoracic aorta. Stable cardiac silhouette. No pulmonary vascular congestion. OSSEOUS STRUCTURES: No significant abnormalities. VISUALIZED UPPER ABDOMEN: Normal. OTHER FINDINGS: None. IMPRESSION: Mildly diminished left pleural effusion with significant residual. Borderline increased right pleural effusion. Underlying airspace disease slightly increased at the right and is not excluded at the left base. Interval removal of prior right central venous line and nasogastric tube.
--- NOTE | 2018-03-03 08:16 | CP.CCUPN ---
<Gen Seth - Last Filed: 03/03/18 10:55> CCU Subjective - Physician Review Subjective (Free Text): 03/03/18 10:50 Patient seen and examined at bedside. No acute events overnight. Plan for JORDIN 03/04 at [address] Isidro. Critical Care Time Spent (in minutes): 35 CCU Objective - Vital Signs / Intake & Output Vital Signs (Last 4 hours): Vital Signs Pulse Resp BP Pulse Ox 03/03/18 08:00 81 12 100 03/03/18 07:58 84 15 119/80 100 03/03/18 07:00 84 16 100 03/03/18 06:58 85 15 108/82 100 03/03/18 06:00 85 14 100 03/03/18 05:58 89 18 106/75 100 03/03/18 05:00 85 15 100 03/03/18 04:58 87 16 105/75 100 Intake and Output (Last 8hrs): Intake & Output 03/02/18 03/03/18 03/03/18 22:59 06:59 14:59 Intake Total 540.1 250 500 Output Total 190 300 50 Balance 350.1 -50 450 Weight 230 lb 3.2 oz Intake: Intake, IV Amount 100.1 50 RA Midline 100.1 50 Oral 440 200 500 Output: Urine 190 300 50 Urethral ([place]) 190 Urine, Voided 0 300 50 - Physical Exam Head: Positive for: Atraumatic, Normocephalic Conjunctiva: Positive for: Normal Mouth: Positive for: Moist Mucous Membranes Respiratory/Chest: Positive for: Decreased Breath Sounds, Rhonchi, Other (Patient is intubated). Negative for: Clear to Auscultation, Respiratory Distress, Accessory Muscle Use, Wheezes, Rales Cardiovascular: Positive for: Regular Rate and Rhythm, Normal S1, S2. Negative for: Murmurs, Rub, Gallop Abdomen: Positive for: Normal Bowel Sounds. Negative for: Distention Upper Extremity: Positive for: Other (edema) Lower Extremity: Positive for: Other Neurological: Negative for: GCS=15 Skin: Positive for: Warm, Dry, Rashes, Normal Color - Medications Active Medications: Active Medications Generic Name Dose Route Start Last Admin Trade Name Freq PRN Reason Stop Dose Admin Acetaminophen 650 mg 03/01/18 13:17 03/02/18 00:00 Tylenol 325mg Tab PO 650 mg Q6 PRN Administration Fever >100.4 F Albuterol/Ipratropium 3 ml 02/25/18 12:00 03/03/18 07:25 Duoneb 3 Mg/0.5 Mg (3 Ml) Ud INH 3 ml RQ4 KEV Administration Amiodarone HCl 200 mg 03/03/18 10:00 Cordarone PO DAILY KEV Enoxaparin Sodium 100 mg 03/02/18 10:45 03/02/18 22:27 Lovenox SC 100 mg Q12 KEV Administration Furosemide 20 mg 03/01/18 10:00 03/02/18 22:26 Lasix IVP 20 mg Q12 KEV Administration Piperacillin Sod/Tazobactam Sod 3.375 gm in 50 mls @ 100 mls/hr 02/28/18 15:00 03/03/18 06:03 Zosyn 3.375 Gm Iv Premix IVPB 100 mls/hr Q8H KEV Administration Protocol Pantoprazole Sodium 40 mg 03/03/18 10:00 Protonix Ec Tab PO DAILY KEV Potassium Chloride 10 meq 02/26/18 11:00 03/02/18 18:02 Potassium Chloride Oral Soln PO 10 meq BID KEV Administration Tramadol HCl 25 mg 02/27/18 20:55 03/01/18 21:51 Ultram PO 25 mg Q6H PRN Administration PAIN, SEVERE 8-10 Verapamil HCl 40 mg 03/02/18 06:00 03/03/18 06:02 Calan Tab PO 40 mg Q8H KEV Administration - Patient Studies Lab Studies: Microbiology Studies 02/25/18 14:07 Blood Culture - Final Blood NO GROWTH AFTER 5 DAYS 02/25/18 14:07 Blood Culture - Final Blood NO GROWTH AFTER 5 DAYS Gram Stain - Final TEST NOT PERFORMED Lab Studies 03/03/18 03/03/18 03/02/18 Range/Units 04:40 04:40 12:03 WBC 11.5 H (4.8-10.8) K/uL RBC 4.60 (3.80-5.20) Mil/uL Hgb 10.9 L (11.0-16.0) g/dL Hct 36.5 (34.0-47.0) % MCV 79.4 L (81.0-99.0) fL MCH 23.7 L (27.0-31.0) pg MCHC 29.9 L (33.0-37.0) g/dL RDW 25.1 H (11.5-14.5) % Plt Count 137 (130-400) K/uL MPV 9.2 (7.2-11.7) fL Neut % (Auto) 83.4 H (50.0-75.0) % Lymph % (Auto) 5.4 L (20.0-40.0) % Ocean % (Auto) 8.3 (0.0-10.0) % Eos % (Auto) 1.7 (0.0-4.0) % Baso % (Auto) 1.2 (0.0-2.0) % Neut # (Auto) 9.6 H (1.8-7.0) K/uL Lymph # (Auto) 0.6 L (1.0-4.3) K/uL Ocean # (Auto) 1.0 H (0.0-0.8) K/uL Eos # (Auto) 0.2 (0.0-0.7) K/uL Baso # (Auto) 0.1 (0.0-0.2) K/uL Neutrophils % (Manual) 89 H (50-75) % Band Neutrophils % 1 (0-2) % Lymphocytes % (Manual) 4 L (20-40) % Monocytes % (Manual) 6 (0-10) % Platelet Estimate Normal (NORMAL) Large Platelets Giant Platelets Hypochromasia (manual) Moderate Poikilocytosis (manual Slight Basophilic Stippling Anisocytosis (manual) Slight Target Cells Tear Drop Cells Ovalocytes Acanthocytes (Spur) Sodium 141 (132-148) mmol/L Potassium 4.1 (3.6-5.2) mmol/L Chloride 105 (98-107) mmol/L Carbon Dioxide 32 H (22-30) mmol/L Anion Gap 8 L (10-20) BUN 37 H (7-17) mg/dL Creatinine 1.1 (0.7-1.2) mg/dL Est GFR ( Amer) 57 Est GFR (Non-Af Amer) 47 POC Glucose (mg/dL) 131 H (65-110) mg/dL Random Glucose 100 (65-105) mg/dL Calcium 8.0 L (8.6-10.4) mg/dl Phosphorus 3.2 (2.5-4.5) mg/dL Magnesium 2.1 (1.6-2.3) mg/dL Total Bilirubin 1.5 H (0.2-1.3) mg/dL AST 9 L D (14-36) U/L ALT 23 (9-52) U/L Alkaline Phosphatase 33 L (38-126) U/L Total Protein 4.9 L (6.3-8.3) g/dL Albumin 2.5 L (3.5-5.0) g/dL Globulin 2.4 (2.2-3.9) gm/dL Albumin/Globulin Ratio 1.0 (1.0-2.1) Urine Color (YELLOW) Urine Clarity (Clear) Urine pH (5.0-8.0) Ur Specific [place] (1.003-1.030) Urine Protein (NEGATIVE) mg/dL Urine Glucose (UA) (Normal) mg/dL Urine Ketones (NEGATIVE) mg/dL Urine Blood (NEGATIVE) Urine Nitrate (NEGATIVE) Urine Bilirubin (NEGATIVE) Urine Urobilinogen (0.2-1.0) mg/dL Ur Leukocyte Esterase (Negative) Nehemiah/uL Urine WBC (Auto) (0-5) /hpf Urine RBC (Auto) (0-3) /hpf Ur Squamous Epith Cells (0-5) /hpf Urine Bacteria (<OCC) Pleural Total Protein g/dL Pleural LDH U/L Pleural Lipase Pleural Triglycerides mg/dL Pleur Adenosine Deamin (<9.2) U/L Pleural Fluid CEA (<10.0) ng/mL 03/02/18 03/02/18 02/27/18 Range/Units 08:01 06:05 14:52 WBC (4.8-10.8) K/uL RBC (3.80-5.20) Mil/uL Hgb (11.0-16.0) g/dL Hct (34.0-47.0) % MCV (81.0-99.0) fL MCH (27.0-31.0) pg MCHC (33.0-37.0) g/dL RDW (11.5-14.5) % Plt Count (130-400) K/uL MPV (7.2-11.7) fL Neut % (Auto) (50.0-75.0) % Lymph % (Auto) (20.0-40.0) % Ocean % (Auto) (0.0-10.0) % Eos % (Auto) (0.0-4.0) % Baso % (Auto) (0.0-2.0) % Neut # (Auto) (1.8-7.0) K/uL Lymph # (Auto) (1.0-4.3) K/uL Ocean # (Auto) (0.0-0.8) K/uL Eos # (Auto) (0.0-0.7) K/uL Baso # (Auto) (0.0-0.2) K/uL Neutrophils % (Manual) 87 H (50-75) % Band Neutrophils % (0-2) % Lymphocytes % (Manual) 3 L (20-40) % Monocytes % (Manual) 10 (0-10) % Platelet Estimate Slightly decreased L (NORMAL) Large Platelets Present Giant Platelets Present Hypochromasia (manual) Slight Poikilocytosis (manual Slight Basophilic Stippling Slight Anisocytosis (manual) Slight Target Cells Slight Tear Drop Cells Slight Ovalocytes Slight Acanthocytes (Spur) Slight Sodium (132-148) mmol/L Potassium (3.6-5.2) mmol/L Chloride (98-107) mmol/L Carbon Dioxide (22-30) mmol/L Anion Gap (10-20) BUN (7-17) mg/dL Creatinine (0.7-1.2) mg/dL Est GFR ( Amer) Est GFR (Non-Af Amer) POC Glucose (mg/dL) (65-110) mg/dL Random Glucose (65-105) mg/dL Calcium (8.6-10.4) mg/dl Phosphorus (2.5-4.5) mg/dL Magnesium (1.6-2.3) mg/dL Total Bilirubin (0.2-1.3) mg/dL AST (14-36) U/L ALT (9-52) U/L Alkaline Phosphatase (38-126) U/L Total Protein (6.3-8.3) g/dL Albumin (3.5-5.0) g/dL Globulin (2.2-3.9) gm/dL Albumin/Globulin Ratio (1.0-2.1) Urine Color Yellow (YELLOW) Urine Clarity Hazy (Clear) Urine pH 5.0 (5.0-8.0) Ur Specific [place] 1.019 (1.003-1.030) Urine Protein 1+ H (NEGATIVE) mg/dL Urine Glucose (UA) Normal (Normal) mg/dL Urine Ketones Negative (NEGATIVE) mg/dL Urine Blood 3+ H (NEGATIVE) Urine Nitrate Negative (NEGATIVE) Urine Bilirubin Negative (NEGATIVE) Urine Urobilinogen 4.0 H (0.2-1.0) mg/dL Ur Leukocyte Esterase 1+ H (Negative) Nehemiah/uL Urine WBC (Auto) 9 H (0-5) /hpf Urine RBC (Auto) 87 H (0-3) /hpf Ur Squamous Epith Cells < 1 (0-5) /hpf Urine Bacteria Rare (<OCC) Pleural Total Protein g/dL Pleural LDH U/L Pleural Lipase see note Pleural Triglycerides mg/dL Pleur Adenosine Deamin (<9.2) U/L Pleural Fluid CEA (<10.0) ng/mL 02/27/18 02/27/18 Range/Units 14:52 14:52 WBC (4.8-10.8) K/uL RBC (3.80-5.20) Mil/uL Hgb (11.0-16.0) g/dL Hct (34.0-47.0) % MCV (81.0-99.0) fL MCH (27.0-31.0) pg MCHC (33.0-37.0) g/dL RDW (11.5-14.5) % Plt Count (130-400) K/uL MPV (7.2-11.7) fL Neut % (Auto) (50.0-75.0) % Lymph % (Auto) (20.0-40.0) % Ocean % (Auto) (0.0-10.0) % Eos % (Auto) (0.0-4.0) % Baso % (Auto) (0.0-2.0) % Neut # (Auto) (1.8-7.0) K/uL Lymph # (Auto) (1.0-4.3) K/uL Ocean # (Auto) (0.0-0.8) K/uL Eos # (Auto) (0.0-0.7) K/uL Baso # (Auto) (0.0-0.2) K/uL Neutrophils % (Manual) (50-75) % Band Neutrophils % (0-2) % Lymphocytes % (Manual) (20-40) % Monocytes % (Manual) (0-10) % Platelet Estimate (NORMAL) Large Platelets Giant Platelets Hypochromasia (manual) Poikilocytosis (manual Basophilic Stippling Anisocytosis (manual) Target Cells Tear Drop Cells Ovalocytes Acanthocytes (Spur) Sodium (132-148) mmol/L Potassium (3.6-5.2) mmol/L Chloride (98-107) mmol/L Carbon Dioxide (22-30) mmol/L Anion Gap (10-20) BUN (7-17) mg/dL Creatinine (0.7-1.2) mg/dL Est GFR ( Amer) Est GFR (Non-Af Amer) POC Glucose (mg/dL) (65-110) mg/dL Random Glucose (65-105) mg/dL Calcium (8.6-10.4) mg/dl Phosphorus (2.5-4.5) mg/dL Magnesium (1.6-2.3) mg/dL Total Bilirubin (0.2-1.3) mg/dL AST (14-36) U/L ALT (9-52) U/L Alkaline Phosphatase (38-126) U/L Total Protein (6.3-8.3) g/dL Albumin (3.5-5.0) g/dL Globulin (2.2-3.9) gm/dL Albumin/Globulin Ratio (1.0-2.1) Urine Color (YELLOW) Urine Clarity (Clear) Urine pH (5.0-8.0) Ur Specific [place] (1.003-1.030) Urine Protein (NEGATIVE) mg/dL Urine Glucose (UA) (Normal) mg/dL Urine Ketones (NEGATIVE) mg/dL Urine Blood (NEGATIVE) Urine Nitrate (NEGATIVE) Urine Bilirubin (NEGATIVE) Urine Urobilinogen (0.2-1.0) mg/dL Ur Leukocyte Esterase (Negative) Nehemiah/uL Urine WBC (Auto) (0-5) /hpf Urine RBC (Auto) (0-3) /hpf Ur Squamous Epith Cells (0-5) /hpf Urine Bacteria (<OCC) Pleural Total Protein <3.0 g/dL Pleural LDH 151 U/L Pleural Lipase Pleural Triglycerides 22 mg/dL Pleur Adenosine Deamin 2.8 (<9.2) U/L Pleural Fluid CEA <0.5 (<10.0) ng/mL Laboratory Results - last 24 hr 02/27/18 02/27/18 02/27/18 14:52 14:52 14:52 WBC RBC Hgb Hct MCV MCH MCHC RDW Plt Count MPV Neut % (Auto) Lymph % (Auto) Ocean % (Auto) Eos % (Auto) Baso % (Auto) Neut # (Auto) Lymph # (Auto) Ocean # (Auto) Eos # (Auto) Baso # (Auto) Neutrophils % (Manual) Band Neutrophils % Lymphocytes % (Manual) Monocytes % (Manual) Platelet Estimate Large Platelets Giant Platelets Hypochromasia (manual) Poikilocytosis (manual Basophilic Stippling Anisocytosis (manual) Target Cells Tear Drop Cells Ovalocytes Acanthocytes (Spur) Sodium Potassium Chloride Carbon Dioxide Anion Gap BUN Creatinine Est GFR ( Amer) Est GFR (Non-Af Amer) POC Glucose (mg/dL) Random Glucose Calcium Phosphorus Magnesium Total Bilirubin AST ALT Alkaline Phosphatase Total Protein Albumin Globulin Albumin/Globulin Ratio Urine Color Urine Clarity Urine pH Ur Specific [place] Urine Protein Urine Glucose (UA) Urine Ketones Urine Blood Urine Nitrate Urine Bilirubin Urine Urobilinogen Ur Leukocyte Esterase Urine WBC (Auto) Urine RBC (Auto) Ur Squamous Epith Cells Urine Bacteria Pleural Total Protein <3.0 Pleural LDH 151 Pleural Lipase see note Pleural Triglycerides 22 Pleur Adenosine Deamin 2.8 Pleural Fluid CEA <0.5 03/02/18 03/02/18 03/02/18 06:05 08:01 12:03 WBC RBC Hgb Hct MCV MCH MCHC RDW Plt Count MPV Neut % (Auto) Lymph % (Auto) Ocean % (Auto) Eos % (Auto) Baso % (Auto) Neut # (Auto) Lymph # (Auto) Ocean # (Auto) Eos # (Auto) Baso # (Auto) Neutrophils % (Manual) 87 H Band Neutrophils % Lymphocytes % (Manual) 3 L Monocytes % (Manual) 10 Platelet Estimate Slightly decreased L Large Platelets Present Giant Platelets Present Hypochromasia (manual) Slight Poikilocytosis (manual Slight Basophilic Stippling Slight Anisocytosis (manual) Slight Target Cells Slight Tear Drop Cells Slight Ovalocytes Slight Acanthocytes (Spur) Slight Sodium Potassium Chloride Carbon Dioxide Anion Gap BUN Creatinine Est GFR ( Amer) Est GFR (Non-Af Amer) POC Glucose (mg/dL) 131 H Random Glucose Calcium Phosphorus Magnesium Total Bilirubin AST ALT Alkaline Phosphatase Total Protein Albumin Globulin Albumin/Globulin Ratio Urine Color Yellow Urine Clarity Hazy Urine pH 5.0 Ur Specific [place] 1.019 Urine Protein 1+ H Urine Glucose (UA) Normal Urine Ketones Negative Urine Blood 3+ H Urine Nitrate Negative Urine Bilirubin Negative Urine Urobilinogen 4.0 H Ur Leukocyte Esterase 1+ H Urine WBC (Auto) 9 H Urine RBC (Auto) 87 H Ur Squamous Epith Cells < 1 Urine Bacteria Rare Pleural Total Protein Pleural LDH Pleural Lipase Pleural Triglycerides Pleur Adenosine Deamin Pleural Fluid CEA 03/03/18 03/03/18 04:40 04:40 WBC 11.5 H RBC 4.60 Hgb 10.9 L Hct 36.5 MCV 79.4 L MCH 23.7 L MCHC 29.9 L RDW 25.1 H Plt Count 137 MPV 9.2 Neut % (Auto) 83.4 H Lymph % (Auto) 5.4 L Ocean % (Auto) 8.3 Eos % (Auto) 1.7 Baso % (Auto) 1.2 Neut # (Auto) 9.6 H Lymph # (Auto) 0.6 L [place] # (Auto) 1.0 H Eos # (Auto) 0.2 Baso # (Auto) 0.1 Neutrophils % (Manual) 89 H Band Neutrophils % 1 Lymphocytes % (Manual) 4 L Monocytes % (Manual) 6 Platelet Estimate Normal Large Platelets Giant Platelets Hypochromasia (manual) Moderate Poikilocytosis (manual Slight Basophilic Stippling Anisocytosis (manual) Slight Target Cells Tear Drop Cells Ovalocytes Acanthocytes (Spur) Sodium 141 Potassium 4.1 Chloride 105 Carbon Dioxide 32 H Anion Gap 8 L BUN 37 H Creatinine 1.1 Est GFR ( Amer) 57 Est GFR (Non-Af Amer) 47 POC Glucose (mg/dL) Random Glucose 100 Calcium 8.0 L Phosphorus 3.2 Magnesium 2.1 Total Bilirubin 1.5 H AST 9 L D ALT 23 Alkaline Phosphatase 33 L Total Protein 4.9 L Albumin 2.5 L Globulin 2.4 Albumin/Globulin Ratio 1.0 Urine Color Urine Clarity Urine pH Ur Specific [place] Urine Protein Urine Glucose (UA) Urine Ketones Urine Blood Urine Nitrate Urine Bilirubin Urine Urobilinogen Ur Leukocyte Esterase Urine WBC (Auto) Urine RBC (Auto) Ur Squamous Epith Cells Urine Bacteria Pleural Total Protein Pleural LDH Pleural Lipase Pleural Triglycerides Pleur Adenosine Deamin Pleural Fluid CEA Fingerstick Blood Sugar Results: 129 Critical Care Progress Note - Nutrition Nutrition: Nutrition Category Date Time Status Dysphagia/Modified Consistency Diet [DIET] Diets 03/02/18 Breakfast Active Assessment/Plan - Assessment and Plan (Free Text) Assessment: 82 yo female admitted to ICU for sepsis, respiratory distress, atrial fibrillation, and pleural effusions. Plan: Neuro: Rule out subdural hematoma s/p fall - CT Head (02/25): Mild chronic white matter ischemic changes. Previously noted scattered chronic bilateral basal nuclei lacunar type infarcts are less well seen on this study compared to prior exam. No acute intracranial hemorrhage. Moderate generalized volume loss. - Neurology consulted, Dr. Suarez - Patient AAO X 3 Pulm: Pleural effusion - CXR (03/03): Mildly diminished left pleural effusion with significant residual. Borderline increased right pleural effusion. Underlying airspace disease slightly increased at the right and is not excluded at the left base. - CT Abdomen (02/25): Large bilateral pleural effusions and compressive atelectasis at the lung bases. Anasarca. Cholelithiasis. Diverticulosis. - Pulmonology consulted, Dr. Amador - Cody Q4 - Incentive spirometer Cardiovascular: Heart failure with preserved EF - Echo (02/24): Normal LV systolic function, LVEF: 50%. Diastolic dysfunction. Calcified Aortic valve. Mild MR. Moderate to severe TR. - EKG (02/24): Atrial fibrillation @ 91 bpm - Cardiology consulted, Dr. Isidro - Lasix 20mg IV Q12 Atrial fibrillation - Verapamil 40mg PO Q8 - Amiodarone 200mg PO QD - Cardiology consulted, Dr. Isidro - Given the the risk of fall, not a good candidate for intermediate anticoagulation - Plan for JORDIN and electrical cardioversion on 03/04 - NPO after midnight - Hold anticoagulation after midnight Heme: Microcytic anemia - Hb/Hct: stable - Continue to monitor H&H Renal: MEL - Resolved - Avoid nephrotoxins Endo: - No acute issues GI: - Passed speech and swallow evaluation - Dysphagia/modified consistency diet ID: Sepsis - Resolved - Code sepsis (02/25) - Zosyn 3.375g IV Q8 (Started on 02/25, stop on 03/04) - Patient afebrile - Sputum culture: No growth Musculoskeletal: Shoulder dislocation - Ortho consulted, Dr. Reeves - Closed reduction left shoulder performed at bedside - Left shoulder dislocation in sling for 2 weeks Prophylaxis: - Protonix 40mg PO QD - Lovenox 100mg SC Q12 Case discussed with Dr. Perry Seth, PGY-1 <Zaheer Amador - Last Filed: 03/03/18 15:55> CCU Objective - Vital Signs / Intake & Output Intake and Output (Last 8hrs): Intake & Output 03/03/18 03/03/18 03/03/18 06:59 14:59 22:59 Intake Total 250 980 Output Total 300 200 Balance -50 780 Weight 230 lb 3.2 oz Intake: Intake, IV Amount 50 RA Midline 50 Oral 200 980 Output: Urine 300 200 Urine, Voided 300 200 - Medications Active Medications: Active Medications Generic Name Dose Route Start Last Admin Trade Name Freq PRN Reason Stop Dose Admin Acetaminophen 650 mg 03/01/18 13:17 03/02/18 00:00 Tylenol 325mg Tab PO 650 mg Q6 PRN Administration Fever >100.4 F Albuterol/Ipratropium 3 ml 02/25/18 12:00 03/03/18 13:17 Duoneb 3 Mg/0.5 Mg (3 Ml) Ud INH 3 ml RQ4 KEV Administration Amiodarone HCl 200 mg 03/03/18 10:00 03/03/18 10:25 Cordarone PO 200 mg DAILY KEV Administration Enoxaparin Sodium 100 mg 03/02/18 10:45 03/03/18 10:25 Lovenox SC 100 mg Q12 KEV Administration Furosemide 20 mg 03/01/18 10:00 03/03/18 10:26 Lasix IVP 20 mg Q12 KEV Administration Piperacillin Sod/Tazobactam Sod 3.375 gm in 50 mls @ 100 mls/hr 02/28/18 15:00 03/03/18 15:25 Zosyn 3.375 Gm Iv Premix IVPB 100 mls/hr Q8H KEV Administration Protocol Pantoprazole Sodium 40 mg 03/03/18 10:00 03/03/18 10:26 Protonix Ec Tab PO 40 mg DAILY KEV Administration Potassium Chloride 10 meq 02/26/18 11:00 03/03/18 10:25 Potassium Chloride Oral Soln PO 10 meq BID KEV Administration Tramadol HCl 25 mg 02/27/18 20:55 03/01/18 21:51 Ultram PO 25 mg Q6H PRN Administration PAIN, SEVERE 8-10 Verapamil HCl 40 mg 03/02/18 06:00 03/03/18 14:25 Calan Tab PO 40 mg Q8H KEV Administration - Patient Studies Lab Studies: Microbiology Studies 03/02/18 08:01 Urine Culture - Final Urine,[place] No Growth (<1,000 CFU/ML) 02/25/18 14:07 Blood Culture - Final Blood NO GROWTH AFTER 5 DAYS 02/25/18 14:07 Blood Culture - Final Blood NO GROWTH AFTER 5 DAYS Gram Stain - Final TEST NOT PERFORMED Lab Studies 03/03/18 03/03/18 02/27/18 Range/Units 04:40 04:40 14:52 WBC 11.5 H (4.8-10.8) K/uL RBC 4.60 (3.80-5.20) Mil/uL Hgb 10.9 L (11.0-16.0) g/dL Hct 36.5 (34.0-47.0) % MCV 79.4 L (81.0-99.0) fL MCH 23.7 L (27.0-31.0) pg MCHC 29.9 L (33.0-37.0) g/dL RDW 25.1 H (11.5-14.5) % Plt Count 137 (130-400) K/uL MPV 9.2 (7.2-11.7) fL Neut % (Auto) 83.4 H (50.0-75.0) % Lymph % (Auto) 5.4 L (20.0-40.0) % Ocean % (Auto) 8.3 (0.0-10.0) % Eos % (Auto) 1.7 (0.0-4.0) % Baso % (Auto) 1.2 (0.0-2.0) % Neut # (Auto) 9.6 H (1.8-7.0) K/uL Lymph # (Auto) 0.6 L (1.0-4.3) K/uL [place] # (Auto) 1.0 H (0.0-0.8) K/uL Eos # (Auto) 0.2 (0.0-0.7) K/uL Baso # (Auto) 0.1 (0.0-0.2) K/uL Neutrophils % (Manual) 89 H (50-75) % Band Neutrophils % 1 (0-2) % Lymphocytes % (Manual) 4 L (20-40) % Monocytes % (Manual) 6 (0-10) % Platelet Estimate Normal (NORMAL) Hypochromasia (manual) Moderate Poikilocytosis (manual Slight Anisocytosis (manual) Slight Sodium 141 (132-148) mmol/L Potassium 4.1 (3.6-5.2) mmol/L Chloride 105 (98-107) mmol/L Carbon Dioxide 32 H (22-30) mmol/L Anion Gap 8 L (10-20) BUN 37 H (7-17) mg/dL Creatinine 1.1 (0.7-1.2) mg/dL Est GFR ( Amer) 57 Est GFR (Non-Af Amer) 47 Random Glucose 100 (65-105) mg/dL Calcium 8.0 L (8.6-10.4) mg/dl Phosphorus 3.2 (2.5-4.5) mg/dL Magnesium 2.1 (1.6-2.3) mg/dL Total Bilirubin 1.5 H (0.2-1.3) mg/dL AST 9 L D (14-36) U/L ALT 23 (9-52) U/L Alkaline Phosphatase 33 L (38-126) U/L Total Protein 4.9 L (6.3-8.3) g/dL Albumin 2.5 L (3.5-5.0) g/dL Globulin 2.4 (2.2-3.9) gm/dL Albumin/Globulin Ratio 1.0 (1.0-2.1) Pleural Fluid CEA <0.5 (<10.0) ng/mL Laboratory Results - last 24 hr 02/27/18 03/03/18 03/03/18 14:52 04:40 04:40 WBC 11.5 H RBC 4.60 Hgb 10.9 L Hct 36.5 MCV 79.4 L MCH 23.7 L MCHC 29.9 L RDW 25.1 H Plt Count 137 MPV 9.2 Neut % (Auto) 83.4 H Lymph % (Auto) 5.4 L [place] % (Auto) 8.3 Eos % (Auto) 1.7 Baso % (Auto) 1.2 Neut # (Auto) 9.6 H Lymph # (Auto) 0.6 L [place] # (Auto) 1.0 H Eos # (Auto) 0.2 Baso # (Auto) 0.1 Neutrophils % (Manual) 89 H Band Neutrophils % 1 Lymphocytes % (Manual) 4 L Monocytes % (Manual) 6 Platelet Estimate Normal Hypochromasia (manual) Moderate Poikilocytosis (manual Slight Anisocytosis (manual) Slight Sodium 141 Potassium 4.1 Chloride 105 Carbon Dioxide 32 H Anion Gap 8 L BUN 37 H Creatinine 1.1 Est GFR ( Amer) 57 Est GFR (Non-Af Amer) 47 Random Glucose 100 Calcium 8.0 L Phosphorus 3.2 Magnesium 2.1 Total Bilirubin 1.5 H AST 9 L D ALT 23 Alkaline Phosphatase 33 L Total Protein 4.9 L Albumin 2.5 L Globulin 2.4 Albumin/Globulin Ratio 1.0 Pleural Fluid CEA <0.5 Critical Care Progress Note - Nutrition Nutrition: Nutrition Category Date Time Status Dysphagia/Modified Consistency Diet [DIET] Diets 03/02/18 Breakfast Active NPO Diet [DIET] Diets 03/04/18 Breakfast Active Assessment/Plan (1) Acute respiratory failure Current Visit: Yes Status: Acute (2) Pleural effusion Current Visit: Yes Status: Acute (3) Atrial fibrillation and flutter Current Visit: Yes Status: Acute (4) Dislocation of left shoulder joint Current Visit: Yes Status: Acute Attending/Attestation - Attestation I have personally seen and examined this patient.: Yes I have fully participated in the care of the patient.: Yes I have reviewed all pertinent clinical information: Yes Notes (Text): 03/03/18 15:54 pATIENT SEEN AND EXAMINED IN THE INTENSIVE CARE UNIT No respiratory distress Good cough reflex Continue antibiotics JORDIN cardioversion tomorrow
--- NOTE | 2018-03-03 10:24 | CP.PCM.PN ---
Subjective - Date & Time of Evaluation Date of Evaluation: 03/03/18 Time of Evaluation: 10:20 - Subjective Subjective: Felling better, Cough is better. No chest pain. Objective - Vital Signs/Intake and Output Vital Signs (last 24 hours): Temp Pulse Resp BP Pulse Ox 97.4 F L 81 12 119/80 100 03/03/18 08:00 03/03/18 08:00 03/03/18 08:00 03/03/18 07:58 03/03/18 08:00 Intake and Output: 03/03/18 03/03/18 06:59 18:59 Intake Total 450 500 Output Total 300 50 Balance 150 450 - Medications Medications: Current Medications Acetaminophen (Tylenol 325mg Tab) 650 mg PO Q6 PRN PRN Reason: Fever >100.4 F Last Admin: 03/02/18 00:00 Dose: 650 mg Albuterol/Ipratropium (Duoneb 3 Mg/0.5 Mg (3 Ml) Ud) 3 ml INH RQ4 [facility] Last Admin: 03/03/18 07:25 Dose: 3 ml Amiodarone HCl (Cordarone) 200 mg PO DAILY [facility] Enoxaparin Sodium (Lovenox) 100 mg SC Q12 [facility] Last Admin: 03/02/18 22:27 Dose: 100 mg Furosemide (Lasix) 20 mg IVP Q12 [facility] Last Admin: 03/02/18 22:26 Dose: 20 mg Piperacillin Sod/Tazobactam Sod (Zosyn 3.375 Gm Iv Premix) 3.375 gm in 50 mls @ 100 mls/hr IVPB Q8H [facility]; Protocol Last Admin: 03/03/18 06:03 Dose: 100 mls/hr Pantoprazole Sodium (Protonix Ec Tab) 40 mg PO DAILY [facility] Potassium Chloride (Potassium Chloride Oral Soln) 10 meq PO BID [facility] Last Admin: 03/02/18 18:02 Dose: 10 meq Tramadol HCl (Ultram) 25 mg PO Q6H PRN PRN Reason: PAIN, SEVERE 8-10 Last Admin: 03/01/18 21:51 Dose: 25 mg Verapamil HCl (Calan Tab) 40 mg PO Q8H [facility] Last Admin: 03/03/18 06:02 Dose: 40 mg - Labs Labs: 03/03/18 04:40 03/03/18 04:40 PT 17.6 SECONDS (9.7-12.2) H 03/02/18 06:32 INR 1.6 03/02/18 06:32 APTT 33 SECONDS (21-34) 03/02/18 06:32 - Head Exam Head Exam: NORMOCEPHALIC - Neck Exam Neck Exam: Normal Inspection - Respiratory Exam Respiratory Exam: Decreased Breath Sounds - Cardiovascular Exam Cardiovascular Exam: Irregular Rhythm - Extremities Exam Extremities Exam: Pedal Edema - Neurological Exam Neurological Exam: Alert, Oriented x3 Assessment and Plan (1) CHF (congestive heart failure) Assessment & Plan: Improved, Continue fluid restriction. Status: Acute (2) Atrial fibrillation and flutter Assessment & Plan: Rate is controlled. Given the the risk of fall, not a good candidate for terminal operator anticoagulation. Plans for JORDIN with electrical cardioversion in AM. NPO after midnight. Hold PM and AM dose of Lovenox. Discussed with staff. Status: Acute
[2018-03-03] MEDS: Potassium Chloride 20 mEq/15 ml LIQ UD PO SCH ×2 (10:25→18:12)
[2018-03-03] MEDS: Enoxaparin 100 mg Syringe SC SCH (10:25)
[2018-03-03] MEDS: Pantoprazole 40 mg EC Tab PO SCH (10:26)
--- NOTE | 2018-03-03 10:57 | CP.PCM.PN ---
Subjective - Date & Time of Evaluation Date of Evaluation: 03/03/18 Time of Evaluation: 10:55 - Subjective Subjective: pt seen in bed alert oriented happy feeling beter breathing beter Objective - Vital Signs/Intake and Output Vital Signs (last 24 hours): Temp Pulse Resp BP Pulse Ox 97.4 F L 81 12 119/89 100 03/03/18 08:00 03/03/18 08:00 03/03/18 08:00 03/03/18 10:26 03/03/18 08:00 Intake and Output: 03/03/18 03/03/18 06:59 18:59 Intake Total 450 500 Output Total 300 50 Balance 150 450 - Medications Medications: Current Medications Acetaminophen (Tylenol 325mg Tab) 650 mg PO Q6 PRN PRN Reason: Fever >100.4 F Last Admin: 03/02/18 00:00 Dose: 650 mg Albuterol/Ipratropium (Duoneb 3 Mg/0.5 Mg (3 Ml) Ud) 3 ml INH RQ4 KEV Last Admin: 03/03/18 07:25 Dose: 3 ml Amiodarone HCl (Cordarone) 200 mg PO DAILY [facility] Last Admin: 03/03/18 10:25 Dose: 200 mg Enoxaparin Sodium (Lovenox) 100 mg SC Q12 KEV Last Admin: 03/03/18 10:25 Dose: 100 mg Furosemide (Lasix) 20 mg IVP Q12 KEV Last Admin: 03/03/18 10:26 Dose: 20 mg Piperacillin Sod/Tazobactam Sod (Zosyn 3.375 Gm Iv Premix) 3.375 gm in 50 mls @ 100 mls/hr IVPB Q8H [facility]; Protocol Last Admin: 03/03/18 06:03 Dose: 100 mls/hr Pantoprazole Sodium (Protonix Ec Tab) 40 mg PO DAILY KEV Last Admin: 03/03/18 10:26 Dose: 40 mg Potassium Chloride (Potassium Chloride Oral Soln) 10 meq PO BID KEV Last Admin: 03/03/18 10:25 Dose: 10 meq Tramadol HCl (Ultram) 25 mg PO Q6H PRN PRN Reason: PAIN, SEVERE 8-10 Last Admin: 03/01/18 21:51 Dose: 25 mg Verapamil HCl (Calan Tab) 40 mg PO Q8H KEV Last Admin: 03/03/18 06:02 Dose: 40 mg - Labs Labs: 03/03/18 04:40 03/03/18 04:40 PT 17.6 SECONDS (9.7-12.2) H 03/02/18 06:32 INR 1.6 03/02/18 06:32 APTT 33 SECONDS (21-34) 03/02/18 06:32 - Constitutional Appears: Non-toxic - ENT Exam ENT Exam: Mucous Membranes Moist - Neck Exam Neck Exam: Full ROM - Respiratory Exam Respiratory Exam: Decreased Breath Sounds - Cardiovascular Exam Cardiovascular Exam: Irregular Rhythm - Extremities Exam Additional comments: celulitis - Back Exam Back Exam: NORMAL INSPECTION - Neurological Exam Neurological Exam: Alert - Skin Skin Exam: Normal Color Assessment and Plan - Assessment and Plan (Free Text) Assessment: at fib s/p bilateral pleural efusion chf at fib generalsed weeekness Plan: out of bed pt then rehab
[2018-03-04] MEDS: Albuterol-Ipratrop 3 mg / 0.5 (3 ml) UD INH SCH ×6 (00:09→20:21)
[2018-03-04 05:56] LABS: BASO % 0.2 % (0.0-2.0); EOS # 0.2 K/uL (0.0-0.7); EOS % 2.1 % (0.0-4.0); HEMOGLOBIN 10.7 g/dL (11.0-16.0); LYMPH # 0.6 K/uL (1.0-4.3); LYMPH % 5.4 % (20.0-40.0); MEAN CELL VOLUME 78.5 fL (81.0-99.0); MEAN CORPUSCULAR HEMOGLOBIN 24.1 pg (27.0-31.0); MEAN CORPUSCULAR HGB CONC 30.7 g/dL (33.0-37.0); MEAN PLATELET VOLUME 9.6 fL (7.2-11.7); MONO # 0.8 K/uL (0.0-0.8); MONO % 7.1 % (0.0-10.0); NEUT # 9.3 K/uL (1.8-7.0); NEUT % 85.2 % (50.0-75.0); PLATELET COUNT 131 K/uL (130-400); RBC 4.46 Mil/uL (3.80-5.20); RED CELL DISTRIBUTION WIDTH 24.7 % (11.5-14.5); WHITE BLOOD COUNT 10.9 K/uL (4.8-10.8)
[2018-03-04 05:59] LABS: INR 1.4
[2018-03-04 06:12] LABS: ALB/GLOB RATIO 1.1 (1.0-2.1); ALBUMIN 2.6 g/dL (3.5-5.0); ALT/SGPT 19 U/L (9-52); AST/SGOT 11 U/L (14-36); BLOOD UREA NITROGEN 37 mg/dL (7-17); CALCIUM 8.2 mg/dl (8.6-10.4); GFR NON-AFRICAN AMERICAN 60
[2018-03-04] MEDS: Piperacill/Tazo 3.375gm in Dex 3.375 GM/50 ML BAG IVPB SCH ×3 (06:34→23:27)
[2018-03-04 08:19] LABS: ANISOCYTOSIS SLIGHT; HYPOCHROMIC SLIGHT; LYMPHOCYTE 6 % (20-40); MONOCYTE 5 % (0-10); NEUTROPHIL 89 % (50-75); PLATELET ESTIMATE NORMAL (NORMAL); POIKILOCYTOSIS SLIGHT; POLYCHROMIC SLIGHT; TOTAL CELLS COUNTED 100
[2018-03-04 08:20] LABS: LARGE PLATELETS PRESENT; OVALOCYTES SLIGHT; TARGET CELLS SLIGHT
--- NOTE | 2018-03-04 08:47 | CP.CCUPN ---
CCU Objective - Vital Signs / Intake & Output Vital Signs (Last 4 hours): Vital Signs Pulse Resp BP Pulse Ox 03/04/18 07:00 85 19 100 03/04/18 06:58 85 19 121/90 98 03/04/18 06:00 87 23 93 L 03/04/18 05:58 88 19 143/92 H 91 L 03/04/18 05:00 87 19 97 03/04/18 04:58 88 19 128/95 H 89 L Intake and Output (Last 8hrs): Intake & Output 03/03/18 03/04/18 03/04/18 22:59 06:59 14:59 Intake Total 1190 50 Output Total 700 300 100 Balance 490 -250 -100 Intake: Intake, IV Amount 50 50 RA Midline 50 50 Oral 1140 Output: Urine 700 300 100 Urine, Voided 700 300 100 - Physical Exam Head: Positive for: Atraumatic, Normocephalic Conjunctiva: Positive for: Normal Mouth: Positive for: Moist Mucous Membranes Respiratory/Chest: Positive for: Decreased Breath Sounds, Rhonchi, Other (Patient is intubated). Negative for: Clear to Auscultation, Respiratory Distress, Accessory Muscle Use, Wheezes, Rales Cardiovascular: Positive for: Regular Rate and Rhythm, Normal S1, S2. Negative for: Murmurs, Rub, Gallop Abdomen: Positive for: Normal Bowel Sounds. Negative for: Distention Upper Extremity: Positive for: Other (edema) Lower Extremity: Positive for: Other Neurological: Negative for: GCS=15 Skin: Positive for: Warm, Dry, Rashes, Normal Color - Medications Active Medications: Active Medications Generic Name Dose Route Start Last Admin Trade Name Aubreyq PRN Reason Stop Dose Admin Acetaminophen 650 mg 03/01/18 13:17 03/02/18 00:00 Tylenol 325mg Tab PO 650 mg Q6 PRN Administration Fever >100.4 F Albuterol/Ipratropium 3 ml 02/25/18 12:00 03/04/18 07:20 Duoneb 3 Mg/0.5 Mg (3 Ml) Ud INH 3 ml RQ4 KEV Administration Amiodarone HCl 200 mg 03/03/18 10:00 03/03/18 10:25 Cordarone PO 200 mg DAILY KEV Administration Enoxaparin Sodium 100 mg 03/02/18 10:45 03/03/18 10:25 Lovenox SC 100 mg Q12 KEV Administration Furosemide 20 mg 03/01/18 10:00 03/03/18 22:30 Lasix IVP 20 mg Q12 KEV Administration Piperacillin Sod/Tazobactam Sod 3.375 gm in 50 mls @ 100 mls/hr 02/28/18 15:00 03/04/18 06:34 Zosyn 3.375 Gm Iv Premix IVPB 100 mls/hr Q8H KEV Administration Protocol Pantoprazole Sodium 40 mg 03/03/18 10:00 03/03/18 10:26 Protonix Ec Tab PO 40 mg DAILY KEV Administration Potassium Chloride 10 meq 02/26/18 11:00 03/03/18 18:12 Potassium Chloride Oral Soln PO 10 meq BID KEV Administration Tramadol HCl 25 mg 02/27/18 20:55 03/01/18 21:51 Ultram PO 25 mg Q6H PRN Administration PAIN, SEVERE 8-10 Verapamil HCl 40 mg 03/02/18 06:00 03/04/18 06:35 Calan Tab PO 40 mg Q8H KEV Administration - Patient Studies Lab Studies: Microbiology Studies 03/02/18 08:01 Urine Culture - Final Urine,[place] No Growth (<1,000 CFU/ML) Lab Studies 03/04/18 03/04/18 03/04/18 Range/Units 05:45 05:45 05:45 WBC 10.9 H (4.8-10.8) K/uL RBC 4.46 (3.80-5.20) Mil/uL Hgb 10.7 L (11.0-16.0) g/dL Hct 35.0 (34.0-47.0) % MCV 78.5 L (81.0-99.0) fL MCH 24.1 L (27.0-31.0) pg MCHC 30.7 L (33.0-37.0) g/dL RDW 24.7 H (11.5-14.5) % Plt Count 131 (130-400) K/uL MPV 9.6 (7.2-11.7) fL Neut % (Auto) 85.2 H (50.0-75.0) % Lymph % (Auto) 5.4 L (20.0-40.0) % [place] % (Auto) 7.1 (0.0-10.0) % Eos % (Auto) 2.1 (0.0-4.0) % Baso % (Auto) 0.2 (0.0-2.0) % Neut # (Auto) 9.3 H (1.8-7.0) K/uL Lymph # (Auto) 0.6 L (1.0-4.3) K/uL [place] # (Auto) 0.8 (0.0-0.8) K/uL Eos # (Auto) 0.2 (0.0-0.7) K/uL Baso # (Auto) 0.0 (0.0-0.2) K/uL Neutrophils % (Manual) 89 H (50-75) % Lymphocytes % (Manual) 6 L (20-40) % Monocytes % (Manual) 5 (0-10) % Platelet Estimate Normal (NORMAL) Large Platelets Present Polychromasia Slight Hypochromasia (manual) Slight Poikilocytosis (manual Slight Anisocytosis (manual) Slight Target Cells Slight Ovalocytes Slight PT 15.0 H (9.7-12.2) SECONDS INR 1.4 APTT 35 H (21-34) SECONDS Sodium 138 (132-148) mmol/L Potassium 4.0 (3.6-5.2) mmol/L Chloride 103 (98-107) mmol/L Carbon Dioxide 32 H (22-30) mmol/L Anion Gap 8 L (10-20) BUN 37 H (7-17) mg/dL Creatinine 0.9 (0.7-1.2) mg/dL Est GFR ( Amer) > 60 Est GFR (Non-Af Amer) 60 Random Glucose 102 (65-105) mg/dL Calcium 8.2 L (8.6-10.4) mg/dl Phosphorus 2.7 (2.5-4.5) mg/dL Magnesium 2.0 (1.6-2.3) mg/dL Total Bilirubin 1.2 (0.2-1.3) mg/dL AST 11 L D (14-36) U/L ALT 19 (9-52) U/L Alkaline Phosphatase 35 L (38-126) U/L Total Protein 5.0 L (6.3-8.3) g/dL Albumin 2.6 L (3.5-5.0) g/dL Globulin 2.4 (2.2-3.9) gm/dL Albumin/Globulin Ratio 1.1 (1.0-2.1) Fluid Albumin g/dL 02/27/18 Range/Units 14:52 WBC (4.8-10.8) K/uL RBC (3.80-5.20) Mil/uL Hgb (11.0-16.0) g/dL Hct (34.0-47.0) % MCV (81.0-99.0) fL MCH (27.0-31.0) pg MCHC (33.0-37.0) g/dL RDW (11.5-14.5) % Plt Count (130-400) K/uL MPV (7.2-11.7) fL Neut % (Auto) (50.0-75.0) % Lymph % (Auto) (20.0-40.0) % [place] % (Auto) (0.0-10.0) % Eos % (Auto) (0.0-4.0) % Baso % (Auto) (0.0-2.0) % Neut # (Auto) (1.8-7.0) K/uL Lymph # (Auto) (1.0-4.3) K/uL Boone # (Auto) (0.0-0.8) K/uL Eos # (Auto) (0.0-0.7) K/uL Baso # (Auto) (0.0-0.2) K/uL Neutrophils % (Manual) (50-75) % Lymphocytes % (Manual) (20-40) % Monocytes % (Manual) (0-10) % Platelet Estimate (NORMAL) Large Platelets Polychromasia Hypochromasia (manual) Poikilocytosis (manual Anisocytosis (manual) Target Cells Ovalocytes PT (9.7-12.2) SECONDS INR APTT (21-34) SECONDS Sodium (132-148) mmol/L Potassium (3.6-5.2) mmol/L Chloride (98-107) mmol/L Carbon Dioxide (22-30) mmol/L Anion Gap (10-20) BUN (7-17) mg/dL Creatinine (0.7-1.2) mg/dL Est GFR ( Amer) Est GFR (Non-Af Amer) Random Glucose (65-105) mg/dL Calcium (8.6-10.4) mg/dl Phosphorus (2.5-4.5) mg/dL Magnesium (1.6-2.3) mg/dL Total Bilirubin (0.2-1.3) mg/dL AST (14-36) U/L ALT (9-52) U/L Alkaline Phosphatase (38-126) U/L Total Protein (6.3-8.3) g/dL Albumin (3.5-5.0) g/dL Globulin (2.2-3.9) gm/dL Albumin/Globulin Ratio (1.0-2.1) Fluid Albumin 1.4 g/dL Laboratory Results - last 24 hr 02/27/18 03/04/18 03/04/18 14:52 05:45 05:45 WBC 10.9 H RBC 4.46 Hgb 10.7 L Hct 35.0 MCV 78.5 L MCH 24.1 L MCHC 30.7 L RDW 24.7 H Plt Count 131 MPV 9.6 Neut % (Auto) 85.2 H Lymph % (Auto) 5.4 L [place] % (Auto) 7.1 Eos % (Auto) 2.1 Baso % (Auto) 0.2 Neut # (Auto) 9.3 H Lymph # (Auto) 0.6 L [place] # (Auto) 0.8 Eos # (Auto) 0.2 Baso # (Auto) 0.0 Neutrophils % (Manual) 89 H Lymphocytes % (Manual) 6 L Monocytes % (Manual) 5 Platelet Estimate Normal Large Platelets Present Polychromasia Slight Hypochromasia (manual) Slight Poikilocytosis (manual Slight Anisocytosis (manual) Slight Target Cells Slight Ovalocytes Slight PT INR APTT Sodium 138 Potassium 4.0 Chloride 103 Carbon Dioxide 32 H Anion Gap 8 L BUN 37 H Creatinine 0.9 Est GFR ( Amer) > 60 Est GFR (Non-Af Amer) 60 Random Glucose 102 Calcium 8.2 L Phosphorus 2.7 Magnesium 2.0 Total Bilirubin 1.2 AST 11 L D ALT 19 Alkaline Phosphatase 35 L Total Protein 5.0 L Albumin 2.6 L Globulin 2.4 Albumin/Globulin Ratio 1.1 Fluid Albumin 1.4 03/04/18 05:45 WBC RBC Hgb Hct MCV MCH MCHC RDW Plt Count MPV Neut % (Auto) Lymph % (Auto) [place] % (Auto) Eos % (Auto) Baso % (Auto) Neut # (Auto) Lymph # (Auto) [place] # (Auto) Eos # (Auto) Baso # (Auto) Neutrophils % (Manual) Lymphocytes % (Manual) Monocytes % (Manual) Platelet Estimate Large Platelets Polychromasia Hypochromasia (manual) Poikilocytosis (manual Anisocytosis (manual) Target Cells Ovalocytes PT 15.0 H INR 1.4 APTT 35 H Sodium Potassium Chloride Carbon Dioxide Anion Gap BUN Creatinine Est GFR ( Amer) Est GFR (Non-Af Amer) Random Glucose Calcium Phosphorus Magnesium Total Bilirubin AST ALT Alkaline Phosphatase Total Protein Albumin Globulin Albumin/Globulin Ratio Fluid Albumin Fingerstick Blood Sugar Results: 129 Critical Care Progress Note - Nutrition Nutrition: Nutrition Category Date Time Status NPO Diet [DIET] Diets 03/04/18 Breakfast Active
[2018-03-04] MEDS ORDERED: Lidocaine 4% (Laryng-O-Jet) Kit MM ONE (10:07)
[2018-03-04] MEDS ORDERED: Propofol 10 mg/ml Inj (20 ML) ONE ×2 (10:16)
--- NOTE | 2018-03-04 10:39 | CP.PCM.PN ---
Subjective - Date & Time of Evaluation Date of Evaluation: 03/04/18 Time of Evaluation: 10:36 - Subjective Subjective: No new complaints. Objective - Vital Signs/Intake and Output Vital Signs (last 24 hours): Temp Pulse Resp BP Pulse Ox 99.2 F 85 19 121/90 100 03/04/18 04:00 03/04/18 07:00 03/04/18 07:00 03/04/18 06:58 03/04/18 07:00 Intake and Output: 03/04/18 03/04/18 06:59 18:59 Intake Total 450 Output Total 600 100 Balance -150 -100 - Medications Medications: Current Medications Acetaminophen (Tylenol 325mg Tab) 650 mg PO Q6 PRN PRN Reason: Fever >100.4 F Last Admin: 03/02/18 00:00 Dose: 650 mg Albuterol/Ipratropium (Duoneb 3 Mg/0.5 Mg (3 Ml) Ud) 3 ml INH RQ4 KEV Last Admin: 03/04/18 07:20 Dose: 3 ml Amiodarone HCl (Cordarone) 200 mg PO DAILY KEV Last Admin: 03/03/18 10:25 Dose: 200 mg Enoxaparin Sodium (Lovenox) 100 mg SC Q12 KEV Last Admin: 03/03/18 10:25 Dose: 100 mg Furosemide (Lasix) 20 mg IVP Q12 KEV Last Admin: 03/03/18 22:30 Dose: 20 mg Piperacillin Sod/Tazobactam Sod (Zosyn 3.375 Gm Iv Premix) 3.375 gm in 50 mls @ 100 mls/hr IVPB Q8H K[facility]; Protocol Last Admin: 03/04/18 06:34 Dose: 100 mls/hr Pantoprazole Sodium (Protonix Ec Tab) 40 mg PO DAILY KEV Last Admin: 03/03/18 10:26 Dose: 40 mg Potassium Chloride (Potassium Chloride Oral Soln) 10 meq PO BID KEV Last Admin: 03/03/18 18:12 Dose: 10 meq Tramadol HCl (Ultram) 25 mg PO Q6H PRN PRN Reason: PAIN, SEVERE 8-10 Last Admin: 03/01/18 21:51 Dose: 25 mg Verapamil HCl (Calan Tab) 40 mg PO Q8H KEV Last Admin: 03/04/18 06:35 Dose: 40 mg - Labs Labs: 03/04/18 05:45 03/04/18 05:45 PT 15.0 SECONDS (9.7-12.2) H 03/04/18 05:45 INR 1.4 03/04/18 05:45 APTT 35 SECONDS (21-34) H 03/04/18 05:45 - Head Exam Head Exam: NORMAL INSPECTION - Respiratory Exam Respiratory Exam: NORMAL BREATHING PATTERN - Cardiovascular Exam Cardiovascular Exam: REGULAR RHYTHM - Neurological Exam Neurological Exam: Alert Assessment and Plan (1) CHF (congestive heart failure) Assessment & Plan: Stable, Fluid restriction and diuretics as needed. Status: Acute (2) Atrial fibrillation and flutter Assessment & Plan: Successfully cardioverted to sinus. Continue anticoagulation for now. 12 lead EKG. Status: Acute
[2018-03-04] MEDS: Potassium Chloride 20 mEq/15 ml LIQ UD PO SCH ×2 (11:50→17:56)
[2018-03-04] MEDS: Pantoprazole 40 mg EC Tab PO SCH (11:51)
--- NOTE | 2018-03-04 12:50 | CP.PCM.PN ---
Subjective - Date & Time of Evaluation Date of Evaluation: 03/04/18 Time of Evaluation: 12:46 - Subjective Subjective: Podiatry Progress Note: Dr. Shah 82 year old female evaluated at bedside for b/l venous stasis ulceration to LE. Daughter seen at bedside. Patient is AAOx3 and appears in NAD. Denies of having pain today. States she is feeling a lot better today. Denies of any acute overnight events. No recent F/N/V/C/SOB/CP/headache. No other pedal complains. Objective - Vital Signs/Intake and Output Vital Signs (last 24 hours): Temp Pulse Resp BP Pulse Ox 99.2 F 85 19 135/89 100 03/04/18 04:00 03/04/18 07:00 03/04/18 07:00 03/04/18 11:50 03/04/18 07:00 Intake and Output: 03/04/18 03/04/18 06:59 18:59 Intake Total 450 Output Total 600 100 Balance -150 -100 - Medications Medications: Current Medications Acetaminophen (Tylenol 325mg Tab) 650 mg PO Q6 PRN PRN Reason: Fever >100.4 F Last Admin: 03/02/18 00:00 Dose: 650 mg Albuterol/Ipratropium (Duoneb 3 Mg/0.5 Mg (3 Ml) Ud) 3 ml INH RQ4 KEV Last Admin: 03/04/18 07:20 Dose: 3 ml Amiodarone HCl (Cordarone) 200 mg PO DAILY [facility] Last Admin: 03/04/18 11:51 Dose: 200 mg Apixaban (Eliquis) 5 mg PO BID KEV Last Admin: 03/04/18 12:20 Dose: 5 mg Furosemide (Lasix) 20 mg IVP Q12 KEV Last Admin: 03/04/18 11:50 Dose: 20 mg Piperacillin Sod/Tazobactam Sod (Zosyn 3.375 Gm Iv Premix) 3.375 gm in 50 mls @ 100 mls/hr IVPB Q8H [facility]; Protocol Last Admin: 03/04/18 06:34 Dose: 100 mls/hr Pantoprazole Sodium (Protonix Ec Tab) 40 mg PO DAILY KEV Last Admin: 03/04/18 11:51 Dose: 40 mg Potassium Chloride (Potassium Chloride Oral Soln) 10 meq PO BID KEV Last Admin: 03/04/18 11:50 Dose: 10 meq Tramadol HCl (Ultram) 25 mg PO Q6H PRN PRN Reason: PAIN, SEVERE 8-10 Last Admin: 03/01/18 21:51 Dose: 25 mg Verapamil HCl (Calan Tab) 40 mg PO Q8H [facility] Last Admin: 03/04/18 06:35 Dose: 40 mg - Labs Labs: 03/04/18 05:45 03/04/18 05:45 PT 15.0 SECONDS (9.7-12.2) H 03/04/18 05:45 INR 1.4 03/04/18 05:45 APTT 35 SECONDS (21-34) H 03/04/18 05:45 - Constitutional Appears: Well, Non-toxic, No Acute Distress - Extremities Exam Additional comments: VASC: pulses are palpable b/l, Temp gradient warm to warm from proximal to distal, Cap refill time: <3 secs x 10, no edema or erythema noted to bilateral lower extremities, edema appears to be resolving at this time DERM: dry, flaky, hyperkeratotic skin noted to b/l LE distal to the knee joint, open wound noted to the psoterior aspect of the proximal 1/3rd of the leg measuring approximately 2.5 cm x 2.5cm with a granular base, active serosanguinous drinage noted, no malodor, no tracking or tunneling noted. Left leg: multiple superficial scabs noted to the proximal 1/3rd of the leg,no drainage, no malodor, no erythema or edema NEURO: unable to assess ORTHO: Mild tenderness during palpation of the wound - Neurological Exam Neurological Exam: Alert, Awake, Oriented x3 - Psychiatric Exam Psychiatric exam: Normal Affect, Normal Mood Assessment and Plan - Assessment and Plan (Free Text) Assessment: 82 year old female evaluated in the ICU for bilateral venous stasis wounds Plan: Patient seen and evaluated Discussed plan with Dr. Shah chart, labs and vitals reviewed; afebrile Dressing dry, clean and intact - new dressing applied using Telfa, ABD, DSD, LEIDY Patient to be in multipodus boots at all times Stable from podiatry standpoint Podiatry will continue to follow the patient while in house
--- NOTE | 2018-03-04 17:43 | CP.PCM.PN ---
Subjective - Date & Time of Evaluation Date of Evaluation: 03/04/18 Time of Evaluation: 17:41 - Subjective Subjective: pt had ablation today still in bed feels beter Objective - Vital Signs/Intake and Output Vital Signs (last 24 hours): Temp Pulse Resp BP Pulse Ox 97.8 F 98 H 16 125/93 H 89 L 03/04/18 12:00 03/04/18 16:00 03/04/18 16:00 03/04/18 15:39 03/04/18 16:00 Intake and Output: 03/04/18 03/04/18 06:59 18:59 Intake Total 450 515 Output Total 600 700 Balance -150 -185 - Medications Medications: Current Medications Acetaminophen (Tylenol 325mg Tab) 650 mg PO Q6 PRN PRN Reason: Fever >100.4 F Last Admin: 03/02/18 00:00 Dose: 650 mg Albuterol/Ipratropium (Duoneb 3 Mg/0.5 Mg (3 Ml) Ud) 3 ml INH RQ4 KEV Last Admin: 03/04/18 16:50 Dose: 3 ml Amiodarone HCl (Cordarone) 200 mg PO DAILY KEV Last Admin: 03/04/18 11:51 Dose: 200 mg Apixaban (Eliquis) 5 mg PO BID KEV Last Admin: 03/04/18 12:20 Dose: 5 mg Furosemide (Lasix) 20 mg IVP Q12 KEV Last Admin: 03/04/18 11:50 Dose: 20 mg Piperacillin Sod/Tazobactam Sod (Zosyn 3.375 Gm Iv Premix) 3.375 gm in 50 mls @ 100 mls/hr IVPB Q8H [facility]; Protocol Last Admin: 03/04/18 14:59 Dose: 100 mls/hr Nystatin (Nystop Topical Powder) 1 applic TOP BID KEV Pantoprazole Sodium (Protonix Ec Tab) 40 mg PO DAILY KEV Last Admin: 03/04/18 11:51 Dose: 40 mg Potassium Chloride (Potassium Chloride Oral Soln) 10 meq PO BID KEV Last Admin: 03/04/18 11:50 Dose: 10 meq Silver Sulfadiazine (Silvadene 1% 20 Gm) 1 ea TOP Q12H [facility]EV Tramadol HCl (Ultram) 25 mg PO Q6H PRN PRN Reason: PAIN, SEVERE 8-10 Last Admin: 03/01/18 21:51 Dose: 25 mg Verapamil HCl (Calan Tab) 40 mg PO Q8H K[facility] Last Admin: 03/04/18 13:36 Dose: 40 mg - Labs Labs: 03/04/18 05:45 03/04/18 05:45 PT 15.0 SECONDS (9.7-12.2) H 03/04/18 05:45 INR 1.4 03/04/18 05:45 APTT 35 SECONDS (21-34) H 03/04/18 05:45 - Constitutional Appears: Non-toxic - Head Exam Head Exam: NORMAL INSPECTION - Eye Exam Eye Exam: Normal appearance Pupil Exam: NORMAL ACCOMODATION - ENT Exam ENT Exam: Normal Exam - Respiratory Exam Respiratory Exam: NORMAL BREATHING PATTERN - Cardiovascular Exam Cardiovascular Exam: Tachycardia - GI/Abdominal Exam GI & Abdominal Exam: Soft, Diminished Bowel Sounds - Neurological Exam Neurological Exam: Alert, Awake, Oriented x3 - Psychiatric Exam Psychiatric exam: Normal Affect Assessment and Plan - Assessment and Plan (Free Text) Assessment: at fib s/p ablaion uti celulitis leg cont as per orders Plan: as per orders
--- NOTE | 2018-03-04 17:55 | CP.PCM.PN ---
Subjective - Date & Time of Evaluation Date of Evaluation: 03/04/18 Time of Evaluation: 10:50 - Subjective Subjective: Patient seen and examined at bedside, lying down comfortably. Afebrile and in no acute distress. Denies chest pain, fever/chills, headaches WBC 10.9 on 03/04/18, BUN 37 on 03/04/18 S/P JORDIN and cardioversion CXR (03/03): Borderline right pleural effusion Continue Duonebs Q4 Objective - Vital Signs/Intake and Output Vital Signs (last 24 hours): Temp Pulse Resp BP Pulse Ox 97.8 F 98 H 16 125/93 H 89 L 03/04/18 12:00 03/04/18 16:00 03/04/18 16:00 03/04/18 15:39 03/04/18 16:00 Intake and Output: 03/04/18 03/04/18 06:59 18:59 Intake Total 450 515 Output Total 600 700 Balance -150 -185 - Medications Medications: Current Medications Acetaminophen (Tylenol 325mg Tab) 650 mg PO Q6 PRN PRN Reason: Fever >100.4 F Last Admin: 03/02/18 00:00 Dose: 650 mg Albuterol/Ipratropium (Duoneb 3 Mg/0.5 Mg (3 Ml) Ud) 3 ml INH RQ4 KEV Last Admin: 03/04/18 16:50 Dose: 3 ml Amiodarone HCl (Cordarone) 200 mg PO DAILY [facility] Last Admin: 03/04/18 11:51 Dose: 200 mg Apixaban (Eliquis) 5 mg PO BID KEV Last Admin: 03/04/18 12:20 Dose: 5 mg Furosemide (Lasix) 20 mg IVP Q12 KEV Last Admin: 03/04/18 11:50 Dose: 20 mg Piperacillin Sod/Tazobactam Sod (Zosyn 3.375 Gm Iv Premix) 3.375 gm in 50 mls @ 100 mls/hr IVPB Q8H [facility]; Protocol Last Admin: 03/04/18 14:59 Dose: 100 mls/hr Nystatin (Nystop Topical Powder) 1 applic TOP BID [facility] Pantoprazole Sodium (Protonix Ec Tab) 40 mg PO DAILY [facility] Last Admin: 03/04/18 11:51 Dose: 40 mg Potassium Chloride (Potassium Chloride Oral Soln) 10 meq PO BID KEV Last Admin: 03/04/18 11:50 Dose: 10 meq Silver Sulfadiazine (Silvadene 1% 20 Gm) 1 ea TOP Q12H [facility] Tramadol HCl (Ultram) 25 mg PO Q6H PRN PRN Reason: PAIN, SEVERE 8-10 Last Admin: 03/01/18 21:51 Dose: 25 mg Verapamil HCl (Calan Tab) 40 mg PO Q8H [facility] Last Admin: 03/04/18 13:36 Dose: 40 mg - Labs Labs: 03/04/18 05:45 03/04/18 05:45 PT 15.0 SECONDS (9.7-12.2) H 03/04/18 05:45 INR 1.4 03/04/18 05:45 APTT 35 SECONDS (21-34) H 03/04/18 05:45 Assessment and Plan (1) Acute respiratory failure Status: Acute (2) Pleural effusion Status: Acute (3) Atrial fibrillation and flutter Status: Acute (4) Dislocation of left shoulder joint Status: Acute
[2018-03-04] MEDS: Silver Sulfadiazine 1% Cream (20 gm) TOP SCH (19:04)
[2018-03-05] MEDS: Albuterol-Ipratrop 3 mg / 0.5 (3 ml) UD INH SCH ×6 (00:04→19:53)
[2018-03-05 06:01] LABS: BASO # 0.1 K/uL (0.0-0.2); BASO % 0.6 % (0.0-2.0); EOS # 0.2 K/uL (0.0-0.7); EOS % 1.6 % (0.0-4.0); HEMOGLOBIN 11.1 g/dL (11.0-16.0); LYMPH # 0.5 K/uL (1.0-4.3); LYMPH % 5.8 % (20.0-40.0); MEAN CELL VOLUME 78.4 fL (81.0-99.0); MEAN CORPUSCULAR HEMOGLOBIN 24.5 pg (27.0-31.0); MEAN CORPUSCULAR HGB CONC 31.3 g/dL (33.0-37.0); MEAN PLATELET VOLUME 9.3 fL (7.2-11.7); MONO % 10.4 % (0.0-10.0); NEUT # 7.7 K/uL (1.8-7.0); NEUT % 81.6 % (50.0-75.0); NRBC % 0.1 % (0.0-2.0); PLATELET COUNT 183 K/uL (130-400); RBC 4.51 Mil/uL (3.80-5.20); RED CELL DISTRIBUTION WIDTH 25.4 % (11.5-14.5); WHITE BLOOD COUNT 9.4 K/uL (4.8-10.8)
[2018-03-05] MEDS: Piperacill/Tazo 3.375gm in Dex 3.375 GM/50 ML BAG IVPB SCH (06:28)
[2018-03-05 06:38] LABS: ALBUMIN 2.7 g/dL (3.5-5.0); ALT/SGPT 23 U/L (9-52); AST/SGOT 25 U/L (14-36); BLOOD UREA NITROGEN 30 mg/dL (7-17); CALCIUM 7.8 mg/dl (8.6-10.4); GFR NON-AFRICAN AMERICAN > 60
[2018-03-05 08:18] LABS: BANDS 1 % (0-2); EOSINOPHIL 2 % (0-4); LYMPHOCYTE 7 % (20-40); MONOCYTE 10 % (0-10); NEUTROPHIL 80 % (50-75); PLATELET ESTIMATE NORMAL (NORMAL); TOTAL CELLS COUNTED 100
[2018-03-05 08:19] LABS: ANISOCYTOSIS SLIGHT; HYPOCHROMIC SLIGHT; OVALOCYTES SLIGHT; POIKILOCYTOSIS SLIGHT; TARGET CELLS SLIGHT
[2018-03-05 08:20] LABS: LARGE PLATELETS PRESENT; TEARDROP CELLS SLIGHT
--- NOTE | 2018-03-05 10:14 | CP.PCM.PN ---
Subjective - Date & Time of Evaluation Date of Evaluation: 03/05/18 Time of Evaluation: 10:11 - Subjective Subjective: Daughter at bedside. Patient confused overnight, sleeping now. Objective - Vital Signs/Intake and Output Vital Signs (last 24 hours): Temp Pulse Resp BP Pulse Ox 98.7 F 96 H 26 H 143/110 H 97 03/05/18 04:00 03/05/18 07:00 03/05/18 07:00 03/05/18 06:39 03/05/18 07:00 - Medications Medications: Current Medications Acetaminophen (Tylenol 325mg Tab) 650 mg PO Q6 PRN PRN Reason: Fever >100.4 F Last Admin: 03/02/18 00:00 Dose: 650 mg Albuterol/Ipratropium (Duoneb 3 Mg/0.5 Mg (3 Ml) Ud) 3 ml INH RQ4 [facility] Last Admin: 03/05/18 07:49 Dose: 3 ml Amiodarone HCl (Cordarone) 200 mg PO DAILY [facility] Last Admin: 03/04/18 11:51 Dose: 200 mg Apixaban (Eliquis) 5 mg PO BID [facility] Last Admin: 03/04/18 19:08 Dose: 5 mg Furosemide (Lasix) 20 mg IVP Q12 K[facility] Last Admin: 03/04/18 22:30 Dose: 20 mg Piperacillin Sod/Tazobactam Sod (Zosyn 3.375 Gm Iv Premix) 3.375 gm in 50 mls @ 100 mls/hr IVPB Q8H [facility]; Protocol Last Admin: 03/05/18 06:28 Dose: 100 mls/hr Nystatin (Nystop Topical Powder) 1 applic TOP BID [facility] Last Admin: 03/04/18 19:04 Dose: 1 applic Pantoprazole Sodium (Protonix Ec Tab) 40 mg PO DAILY [facility] Last Admin: 03/04/18 11:51 Dose: 40 mg Potassium Chloride (Potassium Chloride Oral Soln) 10 meq PO BID [facility] Last Admin: 03/04/18 17:56 Dose: 10 meq Silver Sulfadiazine (Silvadene 1% 20 Gm) 1 ea TOP Q12H [facility] Last Admin: 03/04/18 19:04 Dose: 1 % Tramadol HCl (Ultram) 25 mg PO Q6H PRN PRN Reason: PAIN, SEVERE 8-10 Last Admin: 03/01/18 21:51 Dose: 25 mg Verapamil HCl (Calan Tab) 40 mg PO Q8H [facility] Last Admin: 03/05/18 06:28 Dose: 40 mg - Labs Labs: 03/05/18 05:58 03/05/18 05:58 PT 15.0 SECONDS (9.7-12.2) H 03/04/18 05:45 INR 1.4 03/04/18 05:45 APTT 35 SECONDS (21-34) H 03/04/18 05:45 - Extremities Exam Additional comments: Left shoulder: immobilizer intact, shoulder palpably still reduced, +radial pulse, +ROM fingers/wrist/sensation intact Assessment and Plan (1) Dislocation of left shoulder joint Assessment & Plan: 03/03 CXR appears shoulder reduction maintained continue shoulder immobilizer at all times f/u Dr. Reeves in office in 7-10 days call for appointment orthopedically stable for d/c to ANA cont NWB LUE and PT for right shoulder d/w Dr. Reeves, agrees with above Status: Acute (2) Abrasion of left elbow Status: Acute (3) Right rotator cuff tear arthropathy Status: Acute
[2018-03-05] MEDS: Pantoprazole 40 mg EC Tab PO SCH (11:36)
[2018-03-05] MEDS: Potassium Chloride 20 mEq/15 ml LIQ UD PO SCH ×2 (11:39→18:14)
--- NOTE | 2018-03-05 12:10 | CP.PCM.PN ---
Subjective - Date & Time of Evaluation Date of Evaluation: 03/05/18 Time of Evaluation: 12:07 - Subjective Subjective: pt still in icu today confused was agitated last night Objective - Vital Signs/Intake and Output Vital Signs (last 24 hours): Temp Pulse Resp BP Pulse Ox 98.7 F 96 H 26 H 101/73 97 03/05/18 04:00 03/05/18 07:00 03/05/18 07:00 03/05/18 11:39 03/05/18 07:00 - Medications Medications: Current Medications Acetaminophen (Tylenol 325mg Tab) 650 mg PO Q6 PRN PRN Reason: Fever >100.4 F Last Admin: 03/02/18 00:00 Dose: 650 mg Albuterol/Ipratropium (Duoneb 3 Mg/0.5 Mg (3 Ml) Ud) 3 ml INH RQ4 [facility] Last Admin: 03/05/18 07:49 Dose: 3 ml Amiodarone HCl (Cordarone) 200 mg PO DAILY [facility] Last Admin: 03/05/18 11:35 Dose: 200 mg Apixaban (Eliquis) 5 mg PO BID [facility] Last Admin: 03/05/18 11:39 Dose: 5 mg Furosemide (Lasix) 20 mg IVP Q12 [facility] Last Admin: 03/05/18 11:39 Dose: 20 mg Piperacillin Sod/Tazobactam Sod (Zosyn 3.375 Gm Iv Premix) 3.375 gm in 50 mls @ 100 mls/hr IVPB Q8H [facility]; Protocol Last Admin: 03/05/18 06:28 Dose: 100 mls/hr Nystatin (Nystop Topical Powder) 1 applic TOP BID [facility] Last Admin: 03/05/18 11:41 Dose: 1 applic Pantoprazole Sodium (Protonix Ec Tab) 40 mg PO DAILY [facility] Last Admin: 03/05/18 11:36 Dose: 40 mg Potassium Chloride (Potassium Chloride Oral Soln) 10 meq PO BID [facility] Last Admin: 03/05/18 11:39 Dose: 10 meq Silver Sulfadiazine (Silvadene 1% 20 Gm) 1 ea TOP Q12H [facility] Last Admin: 03/04/18 19:04 Dose: 1 % Tramadol HCl (Ultram) 25 mg PO Q6H PRN PRN Reason: PAIN, SEVERE 8-10 Last Admin: 03/01/18 21:51 Dose: 25 mg Verapamil HCl (Calan Tab) 40 mg PO Q8H [facility] Last Admin: 03/05/18 06:28 Dose: 40 mg - Labs Labs: 03/05/18 05:58 03/05/18 05:58 PT 15.0 SECONDS (9.7-12.2) H 03/04/18 05:45 INR 1.4 03/04/18 05:45 APTT 35 SECONDS (21-34) H 03/04/18 05:45 - Constitutional Appears: In Acute Distress - Head Exam Head Exam: ATRAUMATIC - Eye Exam Eye Exam: Normal appearance Pupil Exam: NORMAL ACCOMODATION - ENT Exam ENT Exam: Normal Exam - Neck Exam Neck Exam: Normal Inspection - Respiratory Exam Respiratory Exam: Decreased Breath Sounds - Cardiovascular Exam Cardiovascular Exam: Irregular Rhythm - GI/Abdominal Exam GI & Abdominal Exam: Normal Bowel Sounds - Extremities Exam Additional comments: has cary bandage - Back Exam Back Exam: NORMAL INSPECTION - Neurological Exam Neurological Exam: Altered, Awake - Skin Skin Exam: Pallor Assessment and Plan - Assessment and Plan (Free Text) Assessment: ams Plan: cont as per icu
--- NOTE | 2018-03-05 12:26 | CARD ---
APPROVED REPORT Date of service: 03/04/2018 EKG Measurement Heart [id number] <Conclusion> Sinus rhythm with occasional premature ventricular complexes and premature atrial complexes Low voltage QRS Borderline ECG
[2018-03-05] MEDS: Silver Sulfadiazine 1% Cream (20 gm) TOP SCH ×2 (15:11→16:00)
[2018-03-06] MEDS: Albuterol-Ipratrop 3 mg / 0.5 (3 ml) UD INH SCH ×4 (00:04→11:55)
[2018-03-06] MEDS: Silver Sulfadiazine 1% Cream (20 gm) TOP SCH ×2 (03:39→14:03)
--- NOTE | 2018-03-06 08:40 | CP.PCM.PN ---
Subjective - Date & Time of Evaluation Date of Evaluation: 03/06/18 Time of Evaluation: 08:40 - Subjective Subjective: Podiatry - Dr. Shah 82F seen and evaluated this AM for bilateral lower extremity venous stasis ulcerations. Patient transferred from ICU overnight. Patient resting comfortably, NAD. No new complaints to lower extremity wounds. No recent F/N/V/C/SOB/CP/headache. No other pedal complains. Objective - Vital Signs/Intake and Output Vital Signs (last 24 hours): Temp Pulse Resp BP Pulse Ox 97.3 F L 98 H 20 103/67 100 03/06/18 00:00 03/06/18 06:08 03/06/18 00:00 03/06/18 06:08 03/06/18 00:00 Intake and Output: 03/06/18 03/06/18 06:59 18:59 Intake Total 240 Output Total 400 Balance -160 - Medications Medications: Current Medications Acetaminophen (Tylenol 325mg Tab) 650 mg PO Q6 PRN PRN Reason: Fever >100.4 F Last Admin: 03/02/18 00:00 Dose: 650 mg Albuterol/Ipratropium (Duoneb 3 Mg/0.5 Mg (3 Ml) Ud) 3 ml INH RQ4 [facility] Last Admin: 03/06/18 03:40 Dose: 3 ml Amiodarone HCl (Cordarone) 200 mg PO DAILY [facility] Last Admin: 03/05/18 11:35 Dose: 200 mg Apixaban (Eliquis) 5 mg PO BID [facility] Last Admin: 03/05/18 18:14 Dose: 5 mg Furosemide (Lasix) 20 mg IVP Q12 [facility] Last Admin: 03/05/18 22:54 Dose: 20 mg Nystatin (Nystop Topical Powder) 1 applic TOP BID [facility] Last Admin: 03/05/18 18:14 Dose: 1 applic Pantoprazole Sodium (Protonix Ec Tab) 40 mg PO DAILY [facility] Last Admin: 03/05/18 11:36 Dose: 40 mg Potassium Chloride (Potassium Chloride Oral Soln) 10 meq PO BID [facility] Last Admin: 03/05/18 18:14 Dose: 10 meq Silver Sulfadiazine (Silvadene 1% 20 Gm) 1 ea TOP Q12H [facility] Last Admin: 03/06/18 03:39 Dose: 1 % Tramadol HCl (Ultram) 25 mg PO Q6H PRN PRN Reason: PAIN, SEVERE 8-10 Last Admin: 03/01/18 21:51 Dose: 25 mg Verapamil HCl (Calan Tab) 40 mg PO Q8H [facility] Last Admin: 03/06/18 06:16 Dose: 40 mg - Labs Labs: 03/05/18 05:58 03/05/18 05:58 PT 15.0 SECONDS (9.7-12.2) H 03/04/18 05:45 INR 1.4 03/04/18 05:45 APTT 35 SECONDS (21-34) H 03/04/18 05:45 - Constitutional Appears: Well, Non-toxic, No Acute Distress - Extremities Exam Additional comments: VASC: pulses are palpable b/l, Temp gradient warm to warm from proximal to distal, Cap refill time: <3 secs x 10, no edema or erythema noted to bilateral lower extremities, edema appears to be resolving at this time DERM: dry, flaky, hyperkeratotic skin noted to b/l LE distal to the knee joint, open wound noted to the psoterior aspect of the proximal 1/3rd of the leg measuring approximately 2.5 cm x 2.5cm with a granular base, active serosanguinous drinage noted, no malodor, no tracking or tunneling noted. Left leg: multiple superficial scabs noted to the proximal 1/3rd of the leg,no drainage, no malodor, no erythema or edema NEURO: Gross sensation intact b/l ORTHO: No tenderness to palpation noted to lower extremity b/l - Neurological Exam Neurological Exam: Alert, Awake, Oriented x3 - Psychiatric Exam Psychiatric exam: Normal Affect, Normal Mood Assessment and Plan - Assessment and Plan (Free Text) Assessment: 82 year old female with bilateral venous stasis wounds Plan: Patient seen and evaluated alongside attending, Dr. Alyssa LORENZANA Continue local wound care - shaina Roldan, KJ Continue multipodus boots at all times in bed Stable from podiatric standpoint Podiatry will continue to follow
[2018-03-06] MEDS: Potassium Chloride 20 mEq/15 ml LIQ UD PO SCH ×2 (09:27→18:07)
[2018-03-06] MEDS: Pantoprazole 40 mg EC Tab PO SCH (09:27)
--- NOTE | 2018-03-06 15:37 | CP.PCM.PN ---
Subjective - Date & Time of Evaluation Date of Evaluation: 03/06/18 Time of Evaluation: 15:35 - Subjective Subjective: pt out of icu feels beter Objective - Vital Signs/Intake and Output Vital Signs (last 24 hours): Temp Pulse Resp BP Pulse Ox 98.1 F 83 18 122/88 100 03/06/18 09:13 03/06/18 13:00 03/06/18 09:13 03/06/18 13:00 03/06/18 09:13 Intake and Output: 03/06/18 03/06/18 06:59 18:59 Intake Total 240 Output Total 400 Balance -160 - Medications Medications: Current Medications Acetaminophen (Tylenol 325mg Tab) 650 mg PO Q6 PRN PRN Reason: Fever >100.4 F Last Admin: 03/02/18 00:00 Dose: 650 mg Amiodarone HCl (Cordarone) 200 mg PO DAILY [facility] Last Admin: 03/06/18 09:27 Dose: 200 mg Apixaban (Eliquis) 5 mg PO BID [facility] Last Admin: 03/06/18 09:27 Dose: 5 mg Furosemide (Lasix) 20 mg IVP Q12 [facility] Last Admin: 03/06/18 09:27 Dose: 20 mg Nystatin (Nystop Topical Powder) 1 applic TOP BID [facility] Last Admin: 03/06/18 09:28 Dose: 1 applic Pantoprazole Sodium (Protonix Ec Tab) 40 mg PO DAILY [facility] Last Admin: 03/06/18 09:27 Dose: 40 mg Potassium Chloride (Potassium Chloride Oral Soln) 10 meq PO BID [facility] Last Admin: 03/06/18 09:27 Dose: 10 meq Silver Sulfadiazine (Silvadene 1% 20 Gm) 1 ea TOP Q12H [facility] Last Admin: 03/06/18 14:03 Dose: 1 % Tramadol HCl (Ultram) 25 mg PO Q6H PRN PRN Reason: PAIN, SEVERE 8-10 Last Admin: 03/01/18 21:51 Dose: 25 mg Verapamil HCl (Calan Tab) 40 mg PO Q8H [facility] Last Admin: 03/06/18 13:02 Dose: 40 mg - Labs Labs: 03/05/18 05:58 03/05/18 05:58 PT 15.0 SECONDS (9.7-12.2) H 03/04/18 05:45 INR 1.4 03/04/18 05:45 APTT 35 SECONDS (21-34) H 03/04/18 05:45 - Constitutional Appears: Non-toxic - Head Exam Head Exam: ATRAUMATIC - Eye Exam Eye Exam: Normal appearance - ENT Exam ENT Exam: Normal Exam - Neck Exam Neck Exam: Normal Inspection - Respiratory Exam Respiratory Exam: Decreased Breath Sounds - Cardiovascular Exam Cardiovascular Exam: Irregular Rhythm, +S1, +S2, +S4 - GI/Abdominal Exam GI & Abdominal Exam: Soft - Neurological Exam Neurological Exam: Alert, Awake, Oriented x3 - Psychiatric Exam Psychiatric exam: Normal Affect - Skin Skin Exam: Erythema, Normal Color Assessment and Plan - Assessment and Plan (Free Text) Assessment: at fib chf celulitis legs Plan: cont as per order start pt
--- NOTE | 2018-03-06 16:25 | CP.PCM.PN ---
Subjective - Date & Time of Evaluation Date of Evaluation: 03/06/18 Time of Evaluation: 14:20 - Subjective Subjective: the patient seen and examined Complaining of minimal shortness of breath Afebrile Swelling of legs noted Status post thoracentesis and extubation Continue diuretics Continue antibiotics and present treatment Followup chest x-ray Objective - Vital Signs/Intake and Output Vital Signs (last 24 hours): Temp Pulse Resp BP Pulse Ox 98.4 F 90 18 110/77 96 03/06/18 15:17 03/06/18 15:17 03/06/18 15:17 03/06/18 15:17 03/06/18 15:17 Intake and Output: 03/06/18 03/06/18 06:59 18:59 Intake Total 240 240 Output Total 400 200 Balance -160 40 - Medications Medications: Current Medications Acetaminophen (Tylenol 325mg Tab) 650 mg PO Q6 PRN PRN Reason: Fever >100.4 F Last Admin: 03/02/18 00:00 Dose: 650 mg Amiodarone HCl (Cordarone) 200 mg PO DAILY [facility] Last Admin: 03/06/18 09:27 Dose: 200 mg Apixaban (Eliquis) 5 mg PO BID [facility] Last Admin: 03/06/18 09:27 Dose: 5 mg Furosemide (Lasix) 20 mg IVP Q12 [facility] Last Admin: 03/06/18 09:27 Dose: 20 mg Nystatin (Nystop Topical Powder) 1 applic TOP BID [facility] Last Admin: 03/06/18 09:28 Dose: 1 applic Pantoprazole Sodium (Protonix Ec Tab) 40 mg PO DAILY [facility] Last Admin: 03/06/18 09:27 Dose: 40 mg Potassium Chloride (Potassium Chloride Oral Soln) 10 meq PO BID [facility] Last Admin: 03/06/18 09:27 Dose: 10 meq Silver Sulfadiazine (Silvadene 1% 20 Gm) 1 ea TOP Q12H [facility] Last Admin: 03/06/18 14:03 Dose: 1 % Tramadol HCl (Ultram) 25 mg PO Q6H PRN PRN Reason: PAIN, SEVERE 8-10 Last Admin: 03/01/18 21:51 Dose: 25 mg Verapamil HCl (Calan Tab) 40 mg PO Q8H [facility] Last Admin: 03/06/18 13:02 Dose: 40 mg - Labs Labs: 03/05/18 05:58 03/05/18 05:58 PT 15.0 SECONDS (9.7-12.2) H 03/04/18 05:45 INR 1.4 03/04/18 05:45 APTT 35 SECONDS (21-34) H 03/04/18 05:45 Assessment and Plan (1) Acute respiratory failure Status: Acute (2) Pleural effusion Status: Acute (3) Atrial fibrillation and flutter Status: Acute (4) Dislocation of left shoulder joint Status: Acute
[2018-03-07] MEDS: Silver Sulfadiazine 1% Cream (20 gm) TOP SCH ×2 (03:17→14:46)
--- NOTE | 2018-03-07 09:42 | CP.PCM.PN ---
Subjective - Date & Time of Evaluation Date of Evaluation: 03/07/18 Time of Evaluation: 09:40 - Subjective Subjective: pt feels beter breath beter still unable to walk Objective - Vital Signs/Intake and Output Vital Signs (last 24 hours): Temp Pulse Resp BP Pulse Ox 98.2 F 91 H 18 139/89 95 03/07/18 09:09 03/07/18 09:09 03/07/18 09:09 03/07/18 09:09 03/07/18 09:09 Intake and Output: 03/07/18 03/07/18 06:59 18:59 Intake Total 240 Output Total 900 Balance -660 - Medications Medications: Current Medications Acetaminophen (Tylenol 325mg Tab) 650 mg PO Q6 PRN PRN Reason: Fever >100.4 F Last Admin: 03/02/18 00:00 Dose: 650 mg Amiodarone HCl (Cordarone) 200 mg PO DAILY [facility] Last Admin: 03/06/18 09:27 Dose: 200 mg Apixaban (Eliquis) 5 mg PO BID [facility] Last Admin: 03/06/18 18:06 Dose: 5 mg Furosemide (Lasix) 20 mg IVP Q12 [facility] Last Admin: 03/06/18 21:40 Dose: 20 mg Nystatin (Nystop Topical Powder) 1 applic TOP BID [facility] Last Admin: 03/06/18 18:07 Dose: 1 applic Pantoprazole Sodium (Protonix Ec Tab) 40 mg PO DAILY [facility] Last Admin: 03/06/18 09:27 Dose: 40 mg Potassium Chloride (Potassium Chloride Oral Soln) 10 meq PO BID [facility] Last Admin: 03/06/18 18:07 Dose: 10 meq Silver Sulfadiazine (Silvadene 1% 20 Gm) 1 ea TOP Q12H [facility] Last Admin: 03/07/18 03:17 Dose: 1 % Tramadol HCl (Ultram) 25 mg PO Q6H PRN PRN Reason: PAIN, SEVERE 8-10 Last Admin: 03/01/18 21:51 Dose: 25 mg Verapamil HCl (Calan Tab) 40 mg PO Q8H [facility] Last Admin: 03/07/18 06:24 Dose: 40 mg - Labs Labs: 03/05/18 05:58 03/05/18 05:58 PT 15.0 SECONDS (9.7-12.2) H 03/04/18 05:45 INR 1.4 03/04/18 05:45 APTT 35 SECONDS (21-34) H 03/04/18 05:45 - Head Exam Head Exam: NORMAL INSPECTION - Eye Exam Eye Exam: Normal appearance Pupil Exam: NORMAL ACCOMODATION - ENT Exam ENT Exam: Mucous Membranes Moist - Neck Exam Neck Exam: Normal Inspection - Respiratory Exam Respiratory Exam: Decreased Breath Sounds - Cardiovascular Exam Cardiovascular Exam: Irregular Rhythm - GI/Abdominal Exam GI & Abdominal Exam: Normal Bowel Sounds - Extremities Exam Additional comments: legs celulitis oeadeama - Back Exam Back Exam: NORMAL INSPECTION - Neurological Exam Neurological Exam: Alert, Awake - Psychiatric Exam Psychiatric exam: Normal Mood - Skin Skin Exam: Normal Color Assessment and Plan - Assessment and Plan (Free Text) Assessment: at fib chf celulitis legs fificulty ambulating Plan: pt and rehab cont med
[2018-03-07] MEDS: Pantoprazole 40 mg EC Tab PO SCH (10:00)
[2018-03-07] MEDS: Potassium Chloride 20 mEq/15 ml LIQ UD PO SCH ×2 (10:01→18:07)
[2018-03-08 01:29] VITALS: RESP 20
[2018-03-08] MEDS: Silver Sulfadiazine 1% Cream (20 gm) TOP SCH ×2 (03:30→14:58)
[2018-03-08] MEDS: Pantoprazole 40 mg EC Tab PO SCH (09:32)
[2018-03-08] MEDS: Potassium Chloride 20 mEq/15 ml LIQ UD PO SCH (09:33)
--- NOTE | 2018-03-08 13:42 | CP.PCM.PN ---
Subjective - Date & Time of Evaluation Date of Evaluation: 03/08/18 Time of Evaluation: 13:39 - Subjective Subjective: Podiatry - Dr. Shah 82F seen and evaluated for bilateral lower extremity venous stasis ulcerations. Patient resting comfortably, NAD. No new complaints to lower extremity wounds. No recent F/N/V/C/SOB/CP/headache. No other pedal complains. Objective - Vital Signs/Intake and Output Vital Signs (last 24 hours): Temp Pulse Resp BP Pulse Ox 98.1 F 96 H 20 100/73 96 03/08/18 08:24 03/08/18 08:24 03/08/18 08:24 03/08/18 09:42 03/08/18 08:24 Intake and Output: 03/08/18 03/08/18 06:59 18:59 Intake Total 120 Output Total 350 Balance -230 - Medications Medications: Current Medications Acetaminophen (Tylenol 325mg Tab) 650 mg PO Q6 PRN PRN Reason: Fever >100.4 F Last Admin: 03/02/18 00:00 Dose: 650 mg Amiodarone HCl (Cordarone) 200 mg PO DAILY [facility] Last Admin: 03/08/18 09:32 Dose: 200 mg Apixaban (Eliquis) 5 mg PO BID [facility] Last Admin: 03/08/18 09:32 Dose: 5 mg Furosemide (Lasix) 20 mg IVP Q12 [facility] Last Admin: 03/08/18 09:42 Dose: 20 mg Nystatin (Nystop Topical Powder) 1 applic TOP BID [facility] Last Admin: 03/07/18 21:18 Dose: 1 applic Pantoprazole Sodium (Protonix Ec Tab) 40 mg PO DAILY [facility] Last Admin: 03/08/18 09:32 Dose: 40 mg Potassium Chloride (Potassium Chloride Oral Soln) 10 meq PO BID [facility] Last Admin: 03/08/18 09:33 Dose: 10 meq Silver Sulfadiazine (Silvadene 1% 20 Gm) 1 ea TOP Q12H [facility] Last Admin: 03/08/18 03:30 Dose: 1 % Tramadol HCl (Ultram) 25 mg PO Q6H PRN PRN Reason: PAIN, SEVERE 8-10 Last Admin: 03/01/18 21:51 Dose: 25 mg Verapamil HCl (Calan Tab) 40 mg PO Q8H [facility] Last Admin: 03/08/18 06:35 Dose: 40 mg - Labs Labs: 03/05/18 05:58 03/05/18 05:58 PT 15.0 SECONDS (9.7-12.2) H 03/04/18 05:45 INR 1.4 03/04/18 05:45 APTT 35 SECONDS (21-34) H 03/04/18 05:45 - Constitutional Appears: Well, Non-toxic, No Acute Distress - Extremities Exam Additional comments: Dressing is clean, dry and intact, no strike-through noted. No drainage Boots on b/l legs present - Neurological Exam Neurological Exam: Alert, Awake, Oriented x3 - Psychiatric Exam Psychiatric exam: Normal Affect, Normal Mood Assessment and Plan - Assessment and Plan (Free Text) Assessment: 82 year old female with bilateral venous stasis wounds Plan: Patient seen and evaluated Discussed plan with attending, Dr. Shah VSS Continue multipodus boots at all times in bed Stable from podiatric standpoint Podiatry will continue to follow
[2018-03-08 16:05] VITALS: BP 110/75; PULSE 96; TEMP 98.2; O2SAT 94
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
--- NOTE | 2018-03-08 17:47 | CP.PCM.PN ---
Subjective - Date & Time of Evaluation Date of Evaluation: 03/08/18 Time of Evaluation: 10:20 - Subjective Subjective: Patient seen and examined at bedside, lying down comfortably. Breathing much better Afebrile and in no acute distress. Denies chest pain, fever/chills, headaches Continue Duonebs Q4 Patient on Eliquis 5 mg BID and Lasix 20 mg Q12H Objective - Vital Signs/Intake and Output Vital Signs (last 24 hours): Temp Pulse Resp BP Pulse Ox 98.2 F 96 H 20 110/75 94 L 03/08/18 15:28 03/08/18 15:28 03/08/18 15:28 03/08/18 15:28 03/08/18 15:28 Intake and Output: 03/08/18 03/08/18 06:59 18:59 Intake Total 120 Output Total 350 Balance -230 - Medications Medications: Current Medications Acetaminophen (Tylenol 325mg Tab) 650 mg PO Q6 PRN PRN Reason: Fever >100.4 F Last Admin: 03/02/18 00:00 Dose: 650 mg Amiodarone HCl (Cordarone) 200 mg PO DAILY [facility] Last Admin: 03/08/18 09:32 Dose: 200 mg Apixaban (Eliquis) 5 mg PO BID [facility] Last Admin: 03/08/18 09:32 Dose: 5 mg Furosemide (Lasix) 20 mg IVP Q12 [facility] Last Admin: 03/08/18 09:42 Dose: 20 mg Nystatin (Nystop Topical Powder) 1 applic TOP BID [facility] Last Admin: 03/08/18 14:16 Dose: 1 applic Pantoprazole Sodium (Protonix Ec Tab) 40 mg PO DAILY [facility] Last Admin: 03/08/18 09:32 Dose: 40 mg Potassium Chloride (Potassium Chloride Oral Soln) 10 meq PO BID [facility] Last Admin: 03/08/18 09:33 Dose: 10 meq Silver Sulfadiazine (Silvadene 1% 20 Gm) 1 ea TOP Q12H [facility] Last Admin: 03/08/18 14:58 Dose: Not Given Tramadol HCl (Ultram) 25 mg PO Q6H PRN PRN Reason: PAIN, SEVERE 8-10 Last Admin: 03/01/18 21:51 Dose: 25 mg Verapamil HCl (Calan Tab) 40 mg PO Q8H [facility] Last Admin: 03/08/18 14:16 Dose: 40 mg - Labs Labs: 03/05/18 05:58 03/05/18 05:58 PT 15.0 SECONDS (9.7-12.2) H 03/04/18 05:45 INR 1.4 03/04/18 05:45 APTT 35 SECONDS (21-34) H 03/04/18 05:45 Assessment and Plan (1) Pleural effusion Status: Acute
--- NOTE | 2018-03-08 18:02 | CP.PCM.PN ---
Subjective - Date & Time of Evaluation Date of Evaluation: 03/08/18 Time of Evaluation: 18:00 - Subjective Subjective: Patient with CHF, Atrial fibrillation. Obesity. No new complaints. awaiting for rehab transfer.. Objective - Vital Signs/Intake and Output Vital Signs (last 24 hours): Temp Pulse Resp BP Pulse Ox 98.2 F 96 H 20 110/75 94 L 03/08/18 15:28 03/08/18 15:28 03/08/18 15:28 03/08/18 15:28 03/08/18 15:28 Intake and Output: 03/08/18 03/08/18 06:59 18:59 Intake Total 120 Output Total 350 Balance -230 - Medications Medications: Current Medications Acetaminophen (Tylenol 325mg Tab) 650 mg PO Q6 PRN PRN Reason: Fever >100.4 F Last Admin: 03/02/18 00:00 Dose: 650 mg Amiodarone HCl (Cordarone) 200 mg PO DAILY [facility] Last Admin: 03/08/18 09:32 Dose: 200 mg Apixaban (Eliquis) 5 mg PO BID [facility] Last Admin: 03/08/18 17:47 Dose: 5 mg Furosemide (Lasix) 20 mg IVP Q12 [facility] Last Admin: 03/08/18 09:42 Dose: 20 mg Nystatin (Nystop Topical Powder) 1 applic TOP BID [facility] Last Admin: 03/08/18 17:47 Dose: 1 applic Pantoprazole Sodium (Protonix Ec Tab) 40 mg PO DAILY [facility] Last Admin: 03/08/18 09:32 Dose: 40 mg Potassium Chloride (Potassium Chloride Oral Soln) 10 meq PO BID [facility] Last Admin: 03/08/18 09:33 Dose: 10 meq Silver Sulfadiazine (Silvadene 1% 20 Gm) 1 ea TOP Q12H [facility] Last Admin: 03/08/18 14:58 Dose: Not Given Tramadol HCl (Ultram) 25 mg PO Q6H PRN PRN Reason: PAIN, SEVERE 8-10 Last Admin: 03/01/18 21:51 Dose: 25 mg Verapamil HCl (Calan Tab) 40 mg PO Q8H [facility] Last Admin: 03/08/18 14:16 Dose: 40 mg - Labs Labs: 03/05/18 05:58 03/05/18 05:58 PT 15.0 SECONDS (9.7-12.2) H 03/04/18 05:45 INR 1.4 03/04/18 05:45 APTT 35 SECONDS (21-34) H 03/04/18 05:45 - Respiratory Exam Respiratory Exam: NORMAL BREATHING PATTERN - Cardiovascular Exam Cardiovascular Exam: Irregular Rhythm - Extremities Exam Extremities Exam: Pedal Edema - Neurological Exam Neurological Exam: Alert, Oriented x3 Assessment and Plan (1) CHF (congestive heart failure) Assessment & Plan: Improved, Keep fluid restriction and change lasix to every other day. Keep >4 an Mg>2. Status: Acute (2) Atrial fibrillation and flutter Assessment & Plan: Rate controlled, Therapeutic anticoagulation. If not convert to sinus rhythm may D/C amiodarone. May transfer to rehab. Follow up as out patient. Discusse with family. Status: Acute
--- NOTE | 2018-03-08 18:28 | CP.PCM.PN ---
Subjective - Date & Time of Evaluation Date of Evaluation: 03/08/18 Time of Evaluation: 11:00 - Subjective Subjective: alert, awake, denies sob or chest pains, NAD. Objective - Vital Signs/Intake and Output Vital Signs (last 24 hours): Temp Pulse Resp BP Pulse Ox 98.2 F 96 H 20 110/75 94 L 03/08/18 15:28 03/08/18 15:28 03/08/18 15:28 03/08/18 15:28 03/08/18 15:28 Intake and Output: 03/08/18 03/08/18 06:59 18:59 Intake Total 120 Output Total 350 Balance -230 - Medications Medications: Current Medications Acetaminophen (Tylenol 325mg Tab) 650 mg PO Q6 PRN PRN Reason: Fever >100.4 F Last Admin: 03/02/18 00:00 Dose: 650 mg Amiodarone HCl (Cordarone) 200 mg PO DAILY [facility] Last Admin: 03/08/18 09:32 Dose: 200 mg Apixaban (Eliquis) 5 mg PO BID [facility] Last Admin: 03/08/18 17:47 Dose: 5 mg Furosemide (Lasix) 20 mg IVP Q12 [facility] Last Admin: 03/08/18 09:42 Dose: 20 mg Nystatin (Nystop Topical Powder) 1 applic TOP BID [facility] Last Admin: 03/08/18 17:47 Dose: 1 applic Pantoprazole Sodium (Protonix Ec Tab) 40 mg PO DAILY [facility] Last Admin: 03/08/18 09:32 Dose: 40 mg Potassium Chloride (Potassium Chloride Oral Soln) 10 meq PO BID [facility] Last Admin: 03/08/18 09:33 Dose: 10 meq Silver Sulfadiazine (Silvadene 1% 20 Gm) 1 ea TOP Q12H [facility] Last Admin: 03/08/18 14:58 Dose: Not Given Tramadol HCl (Ultram) 25 mg PO Q6H PRN PRN Reason: PAIN, SEVERE 8-10 Last Admin: 03/01/18 21:51 Dose: 25 mg Verapamil HCl (Calan Tab) 40 mg PO Q8H [facility] Last Admin: 03/08/18 14:16 Dose: 40 mg - Labs Labs: 03/05/18 05:58 03/05/18 05:58 PT 15.0 SECONDS (9.7-12.2) H 03/04/18 05:45 INR 1.4 03/04/18 05:45 APTT 35 SECONDS (21-34) H 03/04/18 05:45 Assessment and Plan - Assessment and Plan (Free Text) Assessment: 82 year old female admitted with right shoulder fracture, chf, seen and examined. Alert, oriented, denies acute pain. Cleared by DR Archibald, ortho and podiatry for discharge to [place] for rehab. Discussed with DR Brewer, plan to discharge today. Dary made aware. All instructions written to follow up with ortho in 1 week and continue with PT /OT as tolerated.
--- NOTE | 2018-03-08 18:30 | PCM.HF ---
Heart Failure Core Measure - Heart Failure Ejection Fraction: 40 % or Greater (EF 50%) LEIDY Inhibitor Prescribed: No Contraindication/Reason for not providing: BP at the low side Beta-Singh Prescribed: None Contraindication/Reason for not providing: BP at the low side Angiotensin II Receptor Singh Prescribed: No Contraindication/Reason for not providing: BP at the low side AnticoagulationTherapy for Atrial Fibrillation/Atrialflutter: Yes Aldosterone Antagonist Prescribed: No Contraindication/Reason for not providing: EF >40% Hydralazine Nitrate Prescribed: No Contraindication/Reason for not providing: on calan Implantable Cardioverter Defibrillator Therapy: No Contraindication/Reason for not providing: EF >40% Cardiac Resynchronization Therapy Prescribed: No Contraindication/Reason for not providing: not indicated - Follow up Will be discharged to: [facility]
[2018-03-08 21:24] LABS: CHOLESTEROL PLEURAL FLUID 32 mg/dL
--- NOTE | 2018-03-10 13:40 | PQF ---
PROVIDER RESPONSE TEXT: NO BACTREAMIA REVIEWER QUERY TEXT: Clarification of Clinical Diagnostic Findings Please clarify documentation or clinical relevance for the clinical / diagnostic findings or whether those are insignificant or unable to be further specified. The patient's Clinical Indicators include: WHITE BLOOD COUNT(K/uL) 11.5H / 12.5H / 9.7 / 9.0 / 10.5 / 8.5 / 11.4H / 9.3 / 10.6 / 12.9H / 13.1H. BLOOD GAS LACTATE(mmol/L) 1.8 - 1.2 - 1.5 - 4.4HH. Sepsis documented several time. Please consider document it in your progress note as well you are the attending in order to pick the diagnosis as a PDX. Query created by: Roberto Carlos Carmona on 03/03/2018 2:55 PM Electronically signed by: Robyn Brewer MD 03/10/2018 1:37 PM
--- NOTE | 2018-03-10 15:11 | DS ---
HISTORY OF PRESENT ILLNESS AND HOSPITAL COURSE: This patient fell at home and came in to the emergency room of [facility] because of recurrent falls. At the time of admission, she had white count high and her vitals were okay except her blood pressure was low at 93/63. Her sugar was 115. Her potassium was low at 3.1 and her proBNP was 4450, and the urine had some blood in it and negative for leukocytes, but has many bacteria. So, the patient was in heart failure. The patient was seen by pulmonary Dr. Amador. She had in the floor respiratory distress and went into respiratory failure and she was transferred to ICU. In the ICU, she was seen by the Pulmonary and she did have slight cough. She was in atrial fibrillation on the monitor and she was started on verapamil IV. She had fever. She was taking Tylenol. She was also taking piperacillin antibiotic, which is Zosyn every 8 hours and her potassium was replaced, and she was on pain killer. She had some anemia. Her white count improved. She was also seen by Dr. Isidro, cardiology consultation for her congestive heart failure and atrial fibrillation. She was transferred after she improved to the floor and she had white count , she was monitored for her sugar. She was on the monitor in Telemetry for her atrial fibrillation. Gradually, she improved, but she was weak and she was not walking too much. She had also cellulitis in her legs. Anyway, she was started on physical therapy and she was discharged to [facility] on 03/08/2018. FINAL DIAGNOSES: Congestive heart failure, obesity, atrial fibrillation, difficulty ambulating, cellulitis of her legs, and edema of lower extremities. Robyn Brewer MD
--- NOTE | 2018-03-11 22:23 | CARD ---
APPROVED REPORT Date of service: 03/05/2018 EKG Measurement Heart [id number] <Conclusion> Atrial fibrillation Low voltage QRS Abnormal ECG
== END 2018-03-08 21:00 | DRG 291 ==
LOC: C.ER 05:24 → SUPCPDRO 05:24 → C.9E 09:35 → C.6T 14:32 → C.9I 02-25 11:31 → C.6T 03-05 19:07
PROVIDERS: ADMIT Internal Medicine; ATTEND Internal Medicine
PROC: 0W9B3ZX Drainage of Left Pleural Cavity, Percutaneous Approach, Diagnostic (ICD-10-PCS; principal; 2018-02-25)
PROC: 05HM33Z Insertion of Infusion Device into Right Internal Jugular Vein, Percutaneous Approach (ICD-10-PCS; 2018-02-25)
PROC: B543ZZA Ultrasonography of Right Jugular Veins, Guidance (ICD-10-PCS; 2018-02-25)
PROC: 0BH17EZ Insertion of Endotracheal Airway into Trachea, Via Natural or Artificial Opening (ICD-10-PCS; 2018-02-25)
PROC: 5A1945Z Respiratory Ventilation, 24-96 Consecutive Hours (ICD-10-PCS; 2018-02-25)
PROC: 0W9B3ZX Drainage of Left Pleural Cavity, Percutaneous Approach, Diagnostic (ICD-10-PCS; 2018-02-27)
DX: I50.42 Chronic combined systolic (congestive) and diastolic (congestive) heart failure (principal); J96.01 Acute respiratory failure with hypoxia; G92 Toxic encephalopathy; N17.9 Acute kidney failure, unspecified; N39.0 Urinary tract infection, site not specified; L97.929 Non-pressure chronic ulcer of unspecified part of left lower leg with unspecified severity; L97.919 Non-pressure chronic ulcer of unspecified part of right lower leg with unspecified severity; J98.11 Atelectasis; I48.92 Unspecified atrial flutter; S50.312A Abrasion of left elbow, initial encounter; W19.XXXA Unspecified fall, initial encounter; Z86.718 Personal history of other venous thrombosis and embolism; Z91.81 History of falling; S43.005A Unspecified dislocation of left shoulder joint, initial encounter; R29.6 Repeated falls; M75.101 Unspecified rotator cuff tear or rupture of right shoulder, not specified as traumatic; I83.029 Varicose veins of left lower extremity with ulcer of unspecified site; J44.9 Chronic obstructive pulmonary disease, unspecified; F03.90 Unspecified dementia, unspecified severity, without behavioral disturbance, psychotic disturbance, mood disturbance, and anxiety; E66.9 Obesity, unspecified; G89.29 Other chronic pain; I48.91 Unspecified atrial fibrillation; L89.322 Pressure ulcer of left buttock, stage 2

== ENCOUNTER 2018-03-23 08:06 | Inpatient (IN) | payer MEDICARE ==
[2018-03-23 08:33] LABS: ABG ALLEN TEST POS; ARTERIAL BLOOD GAS HCO3 33.8 mmol/L (21-28); ARTERIAL BLOOD GAS O2 SAT 97.3 % (95-98); ARTERIAL BLOOD GAS PCO2 82 mm/Hg (35-45); ARTERIAL BLOOD GAS PH 7.31 (7.35-7.45); ARTERIAL BLOOD GAS PO2 83 mm/Hg (80-100); ARTERIAL BLOOD GAS TCO2 43.8 mmol/L (22-28)
[2018-03-23 08:36] LABS: BASO % 0.2 % (0.0-2.0); EOS % 0.1 % (0.0-4.0); HEMOGLOBIN 12.4 g/dL (11.0-16.0); LYMPH # 0.7 K/uL (1.0-4.3); LYMPH % 6.9 % (20.0-40.0); MEAN CELL VOLUME 82.9 fL (81.0-99.0); MEAN CORPUSCULAR HEMOGLOBIN 25.9 pg (27.0-31.0); MEAN CORPUSCULAR HGB CONC 31.2 g/dL (33.0-37.0); MEAN PLATELET VOLUME 9.1 fL (7.2-11.7); MONO # 0.6 K/uL (0.0-0.8); MONO % 6.5 % (0.0-10.0); NEUT # 8.4 K/uL (1.8-7.0); NEUT % 86.3 % (50.0-75.0); NRBC % 0.1 % (0.0-2.0); PLATELET COUNT 188 K/uL (130-400); RED CELL DISTRIBUTION WIDTH 25.9 % (11.5-14.5); WHITE BLOOD COUNT 9.7 K/uL (4.8-10.8)
[2018-03-23 08:43] LABS: INR 2.7; PROTHROMBIN TIME 29.4 SECONDS (9.7-12.2)
[2018-03-23] MEDS ORDERED: Sodium Chloride 0.9% 250 ML IV ONE ×3 (08:46→10:33)
[2018-03-23] MEDS ORDERED: Cefepime 1 GM in Sodium Chloride 0.9% 50 ML IVPB ONE (08:47)
[2018-03-23] MEDS ORDERED: Moxifloxacin IV 400mg/250ml NS 400 MG/250 ML BAG IVPB ONE ×2 (08:47→09:07)
[2018-03-23] MEDS ORDERED: Vancomycin 1 GM 1 GM/250 ML BAG IV STA (08:47)
[2018-03-23 08:54] LABS: ALBUMIN 3.1 g/dL (3.5-5.0); ALT/SGPT 35 U/L (9-52); AST/SGOT 75 U/L (14-36); BLOOD UREA NITROGEN 48 mg/dL (7-17); CALCIUM 8.6 mg/dl (8.6-10.4); GFR NON-AFRICAN AMERICAN 53
[2018-03-23 08:59] LABS: B-TYPE NATRIURETIC PEPTIDE 7210 pg/mL (0-900); CK-MB 0.37 ng/mL (0.0-3.38)
[2018-03-23 09:04] LABS: BASOPHIL 1 % (0-2); LYMPHOCYTE 5 % (20-40); MONOCYTE 6 % (0-10); TOTAL CELLS COUNTED 100
[2018-03-23 09:05] LABS: ANISOCYTOSIS SLIGHT; NEUTROPHIL 88 % (50-75); PLATELET ESTIMATE NORMAL (NORMAL); POIKILOCYTOSIS SLIGHT
[2018-03-23 09:06] LABS: HYPOCHROMIC SLIGHT; OVALOCYTES SLIGHT; TARGET CELLS SLIGHT; TEARDROP CELLS SLIGHT
[2018-03-23] MEDS ORDERED: Vancomycin 1 GM 1 GM/250 ML BAG IVPB ONE (09:07)
[2018-03-23] MEDS ORDERED: Nystatin 100,000 Units/gm Cream(15 gm) TOP STA (09:22)
--- NOTE | 2018-03-23 09:28 | C.PDOC ---
History Of Present Illness Patient WILFRED from subacute rehab, found to be lethargic and dyspneic this morning by staff. Patient placed on Bipap in the field, arrives in ED appearing drowsy/lethargic. History is as per [facility] records/EMS. Time Seen by Provider: 03/23/18 08:15 Chief Complaint (Nursing): Respiratory Distress History Per: EMS, Family (daughter) History/Exam Limitations: clinical condition Onset/Duration Of Symptoms: Hrs Current Symptoms Are (Timing): Still Present Severity: Severe Past Medical History Reviewed: Historical Data, Nursing Documentation, Vital Signs Vital Signs: Last Vital Signs Temp Pulse 94 H 03/23/18 08:10 Resp 32 H 03/23/18 08:10 BP 136/83 03/23/18 08:10 Pulse Ox 89 L 03/23/18 08:10 - Medical History PMH: Atrial Fibrillation, CHF, COPD, Dementia - [facility] Procedures DRAINAGE OF LEFT PLEURAL CAVITY, PERC APPROACH, DIAGN (02/24/18) INSERT INFUSION DEV IN R INT JUGULAR VEIN, PERC (02/24/18) INSERTION OF ENDOTRACHEAL AIRWAY INTO TRACHEA, VIA OPENING (02/24/18) RESPIRATORY VENTILATION, 24-96 CONSECUTIVE HOURS (02/24/18) ULTRASONOGRAPHY OF RIGHT JUGULAR VEINS, GUIDANCE (02/24/18) Family History: States: Other Other Family History: noncontributory - Social History Hx Alcohol Use: No Hx Substance Use: No - Immunization History Hx Tetanus Toxoid Vaccination: No Hx Influenza Vaccination: No Hx Pneumococcal Vaccination: No Review Of Systems Review Of Systems: ROS cannot be obtained secondary to pt's inabilty to answer questions. Physical Exam - Physical Exam Appears: In Acute Distress (lethargic appearing, arousable to sternal rub, in moderate respiratory distress) Skin: Other (sacral ulcer, B/L heel ulcers, erythematous appearing area with excoriations under left breast ? fungal) Eye(s): bilateral: Normal Inspection, PERRL, EOMI Oral Mucosa: Moist Respiratory: Accessory Muscle Use (moderate), Rales (B/L bases), No Rhonchi, No Wheezing Gastrointestinal/Abdominal: Normal Exam, Bowel Sounds, Soft, No Tenderness, Other (obese) Extremity: Pedal Edema (+3 pitting edema B/L LEs, +2 pitting edema B/L UEs), Other (left shoulder anteriorly dislocated and in immobilizer) Pulses: Left Dorsalis Pedis: Normal, Right Dorsalis Pedis: Normal Neurological/Psych: Other (GCS 9 - ) ED Course And Treatment - Laboratory Results Result Diagrams: 03/31/18 06:13 03/31/18 06:13 ECG: Interpreted By Me, Viewed By Me (atrial fibrillation 91 bpm, normal axis, low voltage QRS, T wave inversions V4-V6, no acute ST changes) ECG Interpretation: Abnormal O2 Sat by Pulse Oximetry: 89 (RA) Pulse Ox Interpretation: Abnormal - Other Rad CXR X-Ray: Viewed By Me, Read By Radiologist Interpretation: Accession No. : [id number]. Patient Name / ID : GAVINO CASILLAS / [id number]. Exam Date : 03/23/2018 08:18:03 ( Approved ). Study Comment : Sex / Age : F / 82Y. Creator : Denita Verma V. Dictator : Denita Verma V. Apparel Patternmaker : Supervisor [employer] Department : Denita Mccabe V. Approver2 : Report Date : 03/23/2018 09:27:51. My Comment : . Date of service: 03/23/2018. PROCEDURE: CHEST RADIOGRAPH, 1 VIEW. HISTORY: SOB. COMPARISON: 03/03/2018. FINDINGS: LUNGS: Shallow lung volumes-as before. The the extensive airspace opacity over the right lung appears increased since the prior exam. The concomitant right pleural effusion with compressive atelectasis at the right lung base is also likely present. The less dense opacity at the left lung base-inferred in part as compressive atelectasis from the left pleural effusion is similar. PLEURA: No pneumothorax appreciated. Bilateral pleural effusions-similar. CARDIOVASCULAR: There is presence of aortic atherosclerotic calcification on x-ray. Cardiomegaly-similar. Concomitant pulmonary venous congestion suspect. OSSEOUS STRUCTURES: Bilateral shoulder arthrosis. Thoracic spondylosis. VISUALIZED UPPER ABDOMEN: Normal. OTHER FINDINGS: None. IMPRESSION: Interval extension of the prior coalescent right lung airspace opacities-confluent areas of pulmonary edema with or without confluent infiltrates are compatible with this. Bilateral pleural effusions re-noted vonnie concomitant bibasilar compressive atelectasis associated with the pleural effusions are present and likely similar. - CT Scan/US CTA CHEST Other Rad Studies (CT/US): Read By Radiologist, Radiology Report Reviewed CT/US Interpretation: Accession No. : [id number]. Patient Name / ID : GAVINO CASILLAS / [id number]. Exam Date : 03/23/2018 12:45:19 ( Approved ). Study Comment : Sex / Age : F / 82Y. Creator : Sally Benoit. Dictator : Indira Vidal MD. Apparel Patternmaker : Supervisor Partial [employer] Department : Indira Vidal MD. Approver2 : Report Date : 03/23/2018 13:45:00. My Comment : . This report is currently processing and HAS NOT BEEN OFFICIALLY SIGNED BY THE PHYSICIAN - ESTIMATED TIME OF APPROVAL IS 03/23/2018 14:13. Date of service: 03/23/2018. CTA chest PE protocol. Indication: dyspnea, r/o PE. Technique: Contiguous axial images were obtained through the chest with intravenous contrast enhancement. Sagittal and coronal reconstructions were generated and reviewed. This CT exam was performed using 1 or more of the following dose reduction techniques: Automated exposure control, adjustment of the MAA and/or kV according to patient size, and/or use of iterative reconstruction technique. IV contrast: 100 mL Visipaque 320 IV. . Radiation dose (DLP): 660.35 MGy-cm. Comparison: Chest x-ray performed 03/23/18, CT chest, abdomen, and pelvis performed 02/25/18. Findings: Visualized portions of the inferior thyroid gland appear unremarkable. The mediastinal and hilar vascular structures appear within normal limits. Cardiomegaly. Coronary artery calcifications. Atherosclerotic calcifications of the aorta. No large central or segmental pulmonary embolus evident. Large bilateral pleural effusions and consolidations bilaterally. Additional regions of confluent and patchy multifocal opacities may reflect edema or pneumonia. No pneumothorax. Limited visualized portions of the upper abdomen: Cholelithiasis. Osseous demineralization. Kyphosis. Multilevel degenerative changes including prominent anterior osteophyte formation. Impression: No large central or segmental pulmonary embolus identified. Large bilateral pleural effusions and consolidations bilaterally. Additional regions of confluent and patchy multifocal opacities may reflect edema or pneumonia. Cholelithiasis. ct head Other Rad Studies (CT/US): Read By Radiologist, Radiology Report Reviewed CT/US Interpretation: Accession No. : [id number]. Patient Name / ID : GAVINO CASILLAS / [id number]. Exam Date : 03/23/2018 12:37:55 ( Approved ). Study Comment : Sex / Age : F / 82Y. Creator : Indira Vidal MD. Dictator : Indira Vidal MD. Apparel Patternmaker : Supervisor Partial Denture Department : Indira Vidal MD. Approver2 : Report Date : 03/23/2018 13:56:27. My Comment : . Date of service: 03/23/2018. PROCEDURE: CT HEAD WITHOUT CONTRAST. HISTORY: AMS. COMPARISON: Noncontrast head CT performed 02/25/18. TECHNIQUE: Axial computed tomography images were obtained through the head/brain without intravenous contrast. Radiation dose: Total exam DLP = 0.0 mGy-cm. This CT exam was performed using one or more of the following dose reduction techniques: Automated exposure control, adjustment of the mA and/or kV according to patient size, and/or use of iterative reconstruction technique. FINDINGS: HEMORRHAGE: No intracranial hemorrhage. BRAIN: Diffuse atrophy with prominence of the ventricles and sulci noted. No m ass effect or edema. Intracranial atherosclerosis. Scattered periventricular and subcortical white matter hypodensities, which are nonspecific, but often seen with chronic microvascular ischemic disease. Scattered chronic appearing bilateral basal ganglia lacunar infarcts not well assessed due to limitations of the study. Please note that MRI with diffusion imaging is more sensitive in the detection of acute ischemic event. VENTRICLES: No hydrocephalus. CALVARIUM: Unremarkable. PARANASAL SINUSES: Unremarkable as visualized. No significant inflammatory changes. MASTOID AIR CELLS: Partial opacification of the left mastoid air cells. The right mastoid air cells appear clear. OTHER FINDINGS: None. IMPRESSION: Markedly limited study due to patient motion and streak artifact, especially skull base. Moderate nonspecific white matter changes. 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 Partial opacification of the left mastoid air cells; correlate for mastoiditis. Progress Note: Patient placed on our Bipap emergently. Blood work, CXR, EKG, UA, ABG shock ordered and reviewed. Rectal temp 102 - HI tylenol and broad spectrum antibiotics given. Endotracheal intubation considered initially, however patient began to become more awake and alert on bipap. Right EJ 20 gauge peripheral line inserted by ut for IV access (two attempts). Reevaluation Time: 14:00 Reassessment Condition: Improved (Patient significantly improved, is awake and alert, able to converse with daughter at bedside.) - Physician Consult Information Physician Contacted: Robyn Brewre Outcome Of Conversation: Discussed patient with PMD, patient has been in bed/immobilized; PMD concerned for possible PE. CTA chest ordered. Dr. Amador consult entered for pulmonary - he upgraded patient to ICU. Critical Care Time - Critical Care Note Total Time (in mins): 60 Documented critical care: time excludes all time spent performing seperately billable procedures. Medical Decision Making Medical Decision Making: Lou Coma Scale/Score (GCS) from [email or web address] on 03/23/2018 All calculations should be rechecked by clinician prior to use RESULT SUMMARY: 9 points [id number] INPUTS: Best eye response > 2 = To pain (+2) Best verbal response > 2 = Incomprehensible sounds (+2) Best motor response > 5 = Localizes pain (+5) Disposition - Disposition Disposition: HOSPITALIZED Disposition Time: 11:00 Condition: SERIOUS - Clinical Impression Clinical Impression: Respiratory distress, Fever, Pneumonia, Congestive heart failure, Pleural effusion Decision To Admit - Pt Status Changed To: Hospital Disposition Of: Inpatient - Admit Certification Admit to Inpatient:: After my assessment, the patient will require hospitalization for at least two midnights. This is because of the severity of symptoms shown, intensity of services needed, and/or the medical risk in this patient being treated as an outpatient. - InPatient: Physician Admission Certification: I certify that this patient requires 2 or more midnights of care for the following reason:: see notes - . Bed Request Type: Telemetry Admitting Physician: Robyn Brewer Patient Diagnosis: Respiratory distress, Congestive heart failure, Fever, Pneumonia, Pleural effusion
[2018-03-23 09:29] LABS: URINE BACTERIA OCC (<OCC); URINE BILIRUBIN NEGATIVE (NEGATIVE); URINE BLOOD 2+ (NEGATIVE); URINE CLARITY Hazy (Clear); URINE COLOR Amber (YELLOW); URINE GLUCOSE (UA) NORMAL (Normal); URINE LEUKOCYTE ESTERASE TRACE Leu/uL (Negative); URINE PROTEIN NEGATIVE (NEGATIVE); URINE UROBILINOGEN NORMAL mg/dL (0.2-1.0)
--- NOTE | 2018-03-23 09:31 | RAD ---
Date of service: 03/23/2018 PROCEDURE: CHEST RADIOGRAPH, 1 VIEW HISTORY: SOB COMPARISON: 03/03/2018 FINDINGS: LUNGS: Shallow lung volumes-as before. The the extensive airspace opacity over the right lung appears increased since the prior exam. The concomitant right pleural effusion with compressive atelectasis at the right lung base is also likely present. The less dense opacity at the left lung base-inferred in part as compressive atelectasis from the left pleural effusion is similar. PLEURA: No pneumothorax appreciated. Bilateral pleural effusions-similar CARDIOVASCULAR: There is presence of aortic atherosclerotic calcification on x-ray. Cardiomegaly-similar. Concomitant pulmonary venous congestion suspect. OSSEOUS STRUCTURES: Bilateral shoulder arthrosis. Thoracic spondylosis. VISUALIZED UPPER ABDOMEN: Normal. OTHER FINDINGS: None. IMPRESSION: Interval extension of the prior coalescent right lung airspace opacities-confluent areas of pulmonary edema with or without confluent infiltrates are compatible with this. Bilateral pleural effusions re-noted vonnie concomitant bibasilar compressive atelectasis associated with the pleural effusions are present and likely similar.
[2018-03-23 10:06] LABS: ABG ALLEN TEST POS; ARTERIAL BLOOD GAS O2 SAT 97.8 % (95-98); ARTERIAL BLOOD GAS PCO2 75 mm/Hg (35-45); ARTERIAL BLOOD GAS PH 7.33 (7.35-7.45); ARTERIAL BLOOD GAS PO2 90 mm/Hg (80-100); ARTERIAL BLOOD GAS TCO2 41.8 mmol/L (22-28)
[2018-03-23] MEDS ORDERED: Iodixanol 320 MG/ML 100 ML BOTTLE IV ONE (12:26)
--- NOTE | 2018-03-23 14:03 | CT ---
Date of service: 03/23/2018 PROCEDURE: CT HEAD WITHOUT CONTRAST. HISTORY: AMS COMPARISON: Noncontrast head CT performed 02/25/18 TECHNIQUE: Axial computed tomography images were obtained through the head/brain without intravenous contrast. Radiation dose: Total exam DLP = 0.0 mGy-cm. This CT exam was performed using one or more of the following dose reduction techniques: Automated exposure control, adjustment of the mA and/or kV according to patient size, and/or use of iterative reconstruction technique. FINDINGS: HEMORRHAGE: No intracranial hemorrhage. BRAIN: Diffuse atrophy with prominence of the ventricles and sulci noted. No mass effect or edema. Intracranial atherosclerosis. Scattered periventricular and subcortical white matter hypodensities, which are nonspecific, but often seen with chronic microvascular ischemic disease. Scattered chronic appearing bilateral basal ganglia lacunar infarcts not well assessed due to limitations of the study. Please note that MRI with diffusion imaging is more sensitive in the detection of acute ischemic event. VENTRICLES: No hydrocephalus. CALVARIUM: Unremarkable. PARANASAL SINUSES: Unremarkable as visualized. No significant inflammatory changes. MASTOID AIR CELLS: Partial opacification of the left mastoid air cells. The right mastoid air cells appear clear. OTHER FINDINGS: None. IMPRESSION: Markedly limited study due to patient motion and streak artifact, especially skull base. Moderate nonspecific white matter changes. 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 Partial opacification of the left mastoid air cells; correlate for mastoiditis.
--- NOTE | 2018-03-23 14:11 | CT ---
Date of service: 03/23/2018 CTA chest PE protocol Indication: dyspnea, r/o PE Technique: Contiguous axial images were obtained through the chest with intravenous contrast enhancement. Sagittal and coronal reconstructions were generated and reviewed. This CT exam was performed using 1 or more of the following dose reduction techniques: Automated exposure control, adjustment of the MAA and/or kV according to patient size, and/or use of iterative reconstruction technique. IV contrast: 100 mL Visipaque 320 IV Radiation dose (DLP): 660.35 MGy-cm. Comparison: Chest x-ray performed 03/23/18, CT chest, abdomen, and pelvis performed 02/25/18 Findings: Visualized portions of the inferior thyroid gland appear unremarkable. The mediastinal and hilar vascular structures appear within normal limits. Cardiomegaly. Coronary artery calcifications. Atherosclerotic calcifications of the aorta. No large central or segmental pulmonary embolus evident. Large bilateral pleural effusions and consolidations bilaterally. Additional regions of confluent and patchy multifocal opacities may reflect edema or pneumonia. No pneumothorax. Limited visualized portions of the upper abdomen: Cholelithiasis. Osseous demineralization. Kyphosis. Multilevel degenerative changes including prominent anterior osteophyte formation. Impression: No large central or segmental pulmonary embolus identified. Large bilateral pleural effusions and consolidations bilaterally. Additional regions of confluent and patchy multifocal opacities may reflect edema or pneumonia. Cholelithiasis.
--- NOTE | 2018-03-23 14:37 | CP.PCM.CON ---
<Margi Valenzuela - Last Filed: 03/23/18 17:12> History of Present Illness - History of Present Illness History of Present Illness: PGY-1 ICU Consult Note for Dr. Amador's service CC: SOB HPI: Patient is a 82 y/o female w/ PMH of CHF, HTN, Afib on AC, and hx of pleural effusions with thoracentesis presents to emergency department for evaluation of shortness of breath. Patient's daughter at bedside and provided information because patient was tired and on BIPAP limiting her ability to speak for herself. Patient's daughter states that at [facility] her mother was short of breath this morning. She was not responsive to the staff at rehab prompting her to be transferred to ED. Of note patient was recently admitted s/p fall for which she dislocated her left shoulder. During stay patient was found to have pleural effusions requiring ICU care and thoracentesis. ROS limited 2/2 patient SOB. PMH- CHF, HTN, Afib on AC, and hx of pleural effusions PSH- Denies FH- DM and Cancer Meds- Aldactone 25mg q2d; Amiodarone 200mg qd; Duoneb; Eliquis 5mg po bid; Milk of [place] as needed; Protonix 40mg po daily; Verapamil 40mg q8h; Vitamin b complex 1 tablet daily Allergies- warfarin Social- Denies tobacco, drugs, etoh PMD- Dr. Brewer Review of Systems - Review of Systems Systems not reviewed;Unavailable: Acuity of Condition, Respiratory Distress Past Patient History - Infectious Disease Hx of Infectious Diseases: None - Tetanus Immunizations Tetanus Immunization: Unknown - Past Medical History & Family History Past Medical History?: Yes - Past Social History Smoking Status: Never Smoked - CARDIAC Hx Atrial Fibrillation: Yes Hx Congestive Heart Failure: Yes - PULMONARY Hx Chronic Obstructive Pulmonary Disease (COPD): Yes - NEUROLOGICAL Hx Dementia: Yes - ENDOCRINE/METABOLIC Hx Endocrine Disorders: No - HEMATOLOGICAL/ONCOLOGICAL Hx Blood Disorders: No - INTEGUMENTARY Other/Comment: weeping edema, on bilateral lower ext - MUSCULOSKELETAL/RHEUMATOLOGICAL Hx Falls: Yes - GASTROINTESTINAL Hx Gastrointestinal Disorders: No - GENITOURINARY/GYNECOLOGICAL Hx Genitourinary Disorders: No - PSYCHIATRIC Hx Substance Use: No - SURGICAL HISTORY Hx Surgeries: No - ANESTHESIA Hx Anesthesia: Yes Meds Allergies/Adverse Reactions: Allergies Allergy/AdvReac Type Severity Reaction Status Date / Time warfarin [From Coumadin] Allergy Verified 03/23/18 08:16 Physical Exam - Constitutional Appears: In Acute Distress - Head Exam Head Exam: NORMAL INSPECTION, NORMOCEPHALIC - Eye Exam Eye Exam: EOMI, Normal appearance. absent: Nystagmus, Scleral icterus - ENT Exam ENT Exam: Mucous Membranes Dry - Neck Exam Neck exam: Positive for: Normal Inspection Additional comments: central line in right SCM region - Respiratory Exam Respiratory Exam: Decreased Breath Sounds, Rales. absent: Chest Wall Tenderness, Clear to Auscultation Bilateral, Rhonchi, Wheezes, NORMAL BREATHING PATTERN - Cardiovascular Exam Cardiovascular Exam: REGULAR RHYTHM, +S1, +S2. absent: Bradycardia, Tachycardia - GI/Abdominal Exam GI & Abdominal Exam: Normal Bowel Sounds, Soft. absent: Diminished Bowel Sounds, Distended, Firm, Guarding, Tenderness - Extremities Exam Extremities exam: Positive for: normal inspection. Negative for: calf tenderness, pedal edema Additional comments: generalized anasarca bilateral lower extremity ulcers; bilateral dressing up to the knee; chronic dry skin above the knee - Neurological Exam Neurological exam: Alert - Psychiatric Exam Psychiatric exam: Normal Affect, Normal Mood - Skin Skin Exam: Dry, Intact, Normal Color Additional comments: sacral ulcer stage 3 Results - Vital Signs Recent Vital Signs: Last Vital Signs Temp 102.6 F H 03/23/18 08:47 Pulse 77 03/23/18 11:47 Resp 20 03/23/18 14:21 BP 79/49 L 03/23/18 14:21 Pulse Ox 100 03/23/18 14:21 - Labs Result Diagrams: 03/23/18 08:31 03/23/18 08:31 Labs: Laboratory Results - last 24 hr 03/23/18 03/23/18 03/23/18 08:14 08:25 08:31 WBC 9.7 RBC 4.80 Hgb 12.4 Hct 39.8 MCV 82.9 D MCH 25.9 L MCHC 31.2 L RDW 25.9 H Plt Count 188 MPV 9.1 Neut % (Auto) 86.3 H Lymph % (Auto) 6.9 L Bradford % (Auto) 6.5 Eos % (Auto) 0.1 Baso % (Auto) 0.2 Neut # (Auto) 8.4 H Lymph # (Auto) 0.7 L Bradford # (Auto) 0.6 Eos # (Auto) 0.0 Baso # (Auto) 0.0 Neutrophils % (Manual) 88 H Lymphocytes % (Manual) 5 L Monocytes % (Manual) 6 Basophils % (Manual) 1 Platelet Estimate Normal Hypochromasia (manual) Slight Poikilocytosis (manual Slight Anisocytosis (manual) Slight Target Cells Slight Tear Drop Cells Slight Ovalocytes Slight PT INR APTT Puncture Site Rra pCO2 82 H* pO2 83 HCO3 33.8 H ABG pH 7.31 L ABG Total CO2 43.8 H ABG O2 Saturation 97.3 ABG Base Excess 11.4 H Pawel Test Pos ABG Potassium 3.7 A-a O2 Difference 528.0 Respiratory Index 6.4 Sodium 142.0 Chloride 103.0 Glucose 130 H Lactate 1.4 FiO2 100.0 Inspiratory BiPAP 20 Expiratory BiPAP 10 Crit Value Called To Dr ceron Crit Value Called By [facility] Crit Value Read Back Y Blood Gas Notified Time 833 Potassium Carbon Dioxide Anion Gap BUN Creatinine Est GFR ( Amer) Est GFR (Non-Af Amer) POC Glucose (mg/dL) 148 H Random Glucose Calcium Total Bilirubin AST ALT Alkaline Phosphatase Total Creatine Kinase CK-MB (Mass) Troponin I NT-Pro-B Natriuret Pep Total Protein Albumin Globulin Albumin/Globulin Ratio Arterial Blood Potassium 3.7 Urine Color Urine Clarity Urine pH Ur Specific [place] Urine Protein Urine Glucose (UA) Urine Ketones Urine Blood Urine Nitrate Urine Bilirubin Urine Urobilinogen Ur Leukocyte Esterase Urine WBC (Auto) Urine RBC (Auto) Urine Bacteria Influenza Typ A,B (EIA) 03/23/18 03/23/18 03/23/18 08:31 08:31 09:14 WBC RBC Hgb Hct MCV MCH MCHC RDW Plt Count MPV Neut % (Auto) Lymph % (Auto) [place] % (Auto) Eos % (Auto) Baso % (Auto) Neut # (Auto) Lymph # (Auto) Bradford # (Auto) Eos # (Auto) Baso # (Auto) Neutrophils % (Manual) Lymphocytes % (Manual) Monocytes % (Manual) Basophils % (Manual) Platelet Estimate Hypochromasia (manual) Poikilocytosis (manual Anisocytosis (manual) Target Cells Tear Drop Cells Ovalocytes PT 29.4 H INR 2.7 APTT 35 H Puncture Site pCO2 pO2 HCO3 ABG pH ABG Total CO2 ABG O2 Saturation ABG Base Excess Pawel Test ABG Potassium A-a O2 Difference Respiratory Index Sodium 142 Chloride 98 Glucose Lactate FiO2 Inspiratory BiPAP Expiratory BiPAP Crit Value Called To Crit Value Called By Crit Value Read Back Blood Gas Notified Time Potassium 4.0 Carbon Dioxide 38 H Anion Gap 9 L BUN 48 H Creatinine 1.0 Est GFR ( Amer) > 60 Est GFR (Non-Af Amer) 53 POC Glucose (mg/dL) Random Glucose 135 H Calcium 8.6 Total Bilirubin 1.4 H AST 75 H D ALT 35 Alkaline Phosphatase 75 Total Creatine Kinase < 20 L CK-MB (Mass) 0.37 Troponin I 0.0150 NT-Pro-B Natriuret Pep 7210 H Total Protein 6.2 L Albumin 3.1 L Globulin 3.1 Albumin/Globulin Ratio 1.0 Arterial Blood Potassium Urine Color Bertha Urine Clarity Hazy Urine pH 5.0 Ur Specific [place] 1.012 Urine Protein Negative Urine Glucose (UA) Normal Urine Ketones Negative Urine Blood 2+ H Urine Nitrate Negative Urine Bilirubin Negative Urine Urobilinogen Normal Ur Leukocyte Esterase Trace Urine WBC (Auto) 20 H Urine RBC (Auto) 77 H Urine Bacteria Occ H Influenza Typ A,B (EIA) 03/23/18 03/23/18 10:00 10:47 WBC RBC Hgb Hct MCV MCH MCHC RDW Plt Count MPV Neut % (Auto) Lymph % (Auto) [place] % (Auto) Eos % (Auto) Baso % (Auto) Neut # (Auto) Lymph # (Auto) [place] # (Auto) Eos # (Auto) Baso # (Auto) Neutrophils % (Manual) Lymphocytes % (Manual) Monocytes % (Manual) Basophils % (Manual) Platelet Estimate Hypochromasia (manual) Poikilocytosis (manual Anisocytosis (manual) Target Cells Tear Drop Cells Ovalocytes PT INR APTT Puncture Site Rra pCO2 75 H* pO2 90 HCO3 33.0 H ABG pH 7.33 L ABG Total CO2 41.8 H ABG O2 Saturation 97.8 ABG Base Excess 10.4 H Pawel Test Pos ABG Potassium 3.5 L A-a O2 Difference 387.0 Respiratory Index 4.3 Sodium 143.0 Chloride 106.0 Glucose 109 H Lactate 1.6 FiO2 80.0 Inspiratory BiPAP 20 Expiratory BiPAP 10 Crit Value Called To Dr ceron Crit Value Called By [facility] Crit Value Read Back Y Blood Gas Notified Time 1006 Potassium Carbon Dioxide Anion Gap BUN Creatinine Est GFR ( Amer) Est GFR (Non-Af Amer) POC Glucose (mg/dL) Random Glucose Calcium Total Bilirubin AST ALT Alkaline Phosphatase Total Creatine Kinase CK-MB (Mass) Troponin I NT-Pro-B Natriuret Pep Total Protein Albumin Globulin Albumin/Globulin Ratio Arterial Blood Potassium 3.5 L Urine Color Urine Clarity Urine pH Ur Specific [place] Urine Protein Urine Glucose (UA) Urine Ketones Urine Blood Urine Nitrate Urine Bilirubin Urine Urobilinogen Ur Leukocyte Esterase Urine WBC (Auto) Urine RBC (Auto) Urine Bacteria Influenza Typ A,B (EIA) Negative for flu a/b Assessment & Plan - Assessment and Plan (Free Text) Plan: Patient is a 82 y/o female w/ PMH of CHF, HTN, Afib on AC, and hx of pleural effusions with thoracentesis presents to emergency department for evaluation of shortness of breath. Found to have bilateral effusions with PNA on chest xray; Rectal temperature of 101.3; Started on empiric abx; Intubated as patient became lethargic GCS of 6. Neuro: Alert, AAOx2; confused likely 2/2 hypercapnia Pulm: Bilateral pleural effusions on chest CT w/ possible PNA; Duoneb; V anc/Zosyn; Thoracentesis pending; On BIPAP; Patient became lethargic requiring intubation; Cardio: Hx of Afib: Amiodarone 2000 po daily; Verapamil 40mg q8h; Eliquis 5mg po bid Hx of CHF: Aldactone 25mg q 2 d; Lasix as needed Hx of HTN: normotensive after NS @ 100mls/hr; On admisison patient was hypotensive GI: NPO; No acute issues Endo: No acute issues Renal: NS @ 100mls/hr; Cr normal Derm: Chronic bilateral foot ulcers- Podiatry on board; Sacral ulcer stage 3- Wound care consulted ID: Consolidations on chest CT concerning for PNA; Febrile with no leukocytosis; Tylenol 650mg po q6 prn; Vanc/Zosyn NPO DVT ppx: Eliquis 5mg po bid cam[place]; SCDs GI ppx: Protonix 40mg IV daily Margi Valenzuela PGY-1 Case d/w Dr. Amador <Zaheer Amador - Last Filed: 03/23/18 18:04> Meds - Medications Medications: Current Medications Acetaminophen (Tylenol 325mg Tab) 650 mg PO Q6 PRN PRN Reason: Fever >100.4 F Albuterol/Ipratropium (Duoneb 3 Mg/0.5 Mg (3 Ml) Ud) 3 ml INH RQ4 [place] Amiodarone HCl (Cordarone) 200 mg PO DAILY [place] Apixaban (Eliquis) 5 mg PO BID [facility] Last Admin: 03/23/18 17:58 Dose: 5 mg Piperacillin Sod/Tazobactam Sod (Zosyn 3.375 Gm Iv Premix) 3.375 gm in 50 mls @ 100 mls/hr IVPB Q8H [place]; Protocol Last Admin: 03/23/18 17:52 Dose: 100 mls/hr Sodium Chloride (Sodium Chloride 0.9%) 1,000 mls @ 100 mls/hr IV .Q10H [place] Last Admin: 03/23/18 17:53 Dose: 100 mls/hr Vancomycin/Sodium Chloride (Vancomycin 1 Gm/Ns 200 Ml) 1 gm in 200 mls @ 133 mls/hr IVPB Q12H [place]; Protocol Stop: 03/29/18 00:31 Dexmedetomidine HCl 200 mcg/ (Sodium Chloride) 50 mls @ 5.01 mls/hr IV TITR PRN; Protocol PRN Reason: Intubation Nystatin (Nystop Topical Powder) 1 applic TOP BID [facility] Last Admin: 03/23/18 17:53 Dose: 1 applic Pantoprazole Sodium (Protonix Inj) 40 mg IVP DAILY [facility] Last Admin: 03/23/18 18:00 Dose: 40 mg Silver Sulfadiazine (Silvadene 1% 20 Gm) 1 ea TOP Q12H [place] Last Admin: 03/23/18 17:54 Dose: 20 gm Spironolactone (Aldactone) 25 mg PO Q2D [place] Verapamil HCl (Calan Tab) 40 mg PO Q8H [place] Last Admin: 03/23/18 17:54 Dose: 40 mg Results - Vital Signs Recent Vital Signs: Last Vital Signs Temp 100.8 F H 03/23/18 16:00 Pulse 85 03/23/18 17:00 Resp 18 03/23/18 17:00 BP 99/72 L 03/23/18 17:00 Pulse Ox 99 03/23/18 17:00 - Labs Result Diagrams: 03/23/18 08:31 03/23/18 08:31 Labs: Laboratory Results - last 24 hr 03/23/18 03/23/18 03/23/18 08:14 08:25 08:31 WBC 9.7 RBC 4.80 Hgb 12.4 Hct 39.8 MCV 82.9 D MCH 25.9 L MCHC 31.2 L RDW 25.9 H Plt Count 188 MPV 9.1 Neut % (Auto) 86.3 H Lymph % (Auto) 6.9 L Bradford % (Auto) 6.5 Eos % (Auto) 0.1 Baso % (Auto) 0.2 Neut # (Auto) 8.4 H Lymph # (Auto) 0.7 L [place] # (Auto) 0.6 Eos # (Auto) 0.0 Baso # (Auto) 0.0 Neutrophils % (Manual) 88 H Lymphocytes % (Manual) 5 L Monocytes % (Manual) 6 Basophils % (Manual) 1 Platelet Estimate Normal Hypochromasia (manual) Slight Poikilocytosis (manual Slight Anisocytosis (manual) Slight Target Cells Slight Tear Drop Cells Slight Ovalocytes Slight PT INR APTT Puncture Site Rra pCO2 82 H* pO2 83 HCO3 33.8 H ABG pH 7.31 L ABG Total CO2 43.8 H ABG O2 Saturation 97.3 ABG Base Excess 11.4 H Pawel Test Pos ABG Potassium 3.7 A-a O2 Difference 528.0 Respiratory Index 6.4 Sodium 142.0 Chloride 103.0 Glucose 130 H Lactate 1.4 Mechanical Rate FiO2 100.0 Tidal Volume PEEP Inspiratory BiPAP 20 Expiratory BiPAP 10 Crit Value Called To Dr ceron Crit Value Called By [facility] Crit Value Read Back Y Blood Gas Notified Time 833 Potassium Carbon Dioxide Anion Gap BUN Creatinine Est GFR ( Amer) Est GFR (Non-Af Amer) POC Glucose (mg/dL) 148 H Random Glucose Calcium Total Bilirubin AST ALT Alkaline Phosphatase Total Creatine Kinase CK-MB (Mass) Troponin I NT-Pro-B Natriuret Pep Total Protein Albumin Globulin Albumin/Globulin Ratio Arterial Blood Potassium 3.7 Urine Color Urine Clarity Urine pH Ur Specific [place] Urine Protein Urine Glucose (UA) Urine Ketones Urine Blood Urine Nitrate Urine Bilirubin Urine Urobilinogen Ur Leukocyte Esterase Urine WBC (Auto) Urine RBC (Auto) Urine Bacteria Influenza Typ A,B (EIA) 03/23/18 03/23/18 03/23/18 08:31 08:31 09:14 WBC RBC Hgb Hct MCV MCH MCHC RDW Plt Count MPV Neut % (Auto) Lymph % (Auto) [place] % (Auto) Eos % (Auto) Baso % (Auto) Neut # (Auto) Lymph # (Auto) [place] # (Auto) Eos # (Auto) Baso # (Auto) Neutrophils % (Manual) Lymphocytes % (Manual) Monocytes % (Manual) Basophils % (Manual) Platelet Estimate Hypochromasia (manual) Poikilocytosis (manual Anisocytosis (manual) Target Cells Tear Drop Cells Ovalocytes PT 29.4 H INR 2.7 APTT 35 H Puncture Site pCO2 pO2 HCO3 ABG pH ABG Total CO2 ABG O2 Saturation ABG Base Excess Pawel Test ABG Potassium A-a O2 Difference Respiratory Index Sodium 142 Chloride 98 Glucose Lactate Mechanical Rate FiO2 Tidal Volume PEEP Inspiratory BiPAP Expiratory BiPAP Crit Value Called To Crit Value Called By Crit Value Read Back Blood Gas Notified Time Potassium 4.0 Carbon Dioxide 38 H Anion Gap 9 L BUN 48 H Creatinine 1.0 Est GFR ( Amer) > 60 Est GFR (Non-Af Amer) 53 POC Glucose (mg/dL) Random Glucose 135 H Calcium 8.6 Total Bilirubin 1.4 H AST 75 H D ALT 35 Alkaline Phosphatase 75 Total Creatine Kinase < 20 L CK-MB (Mass) 0.37 Troponin I 0.0150 NT-Pro-B Natriuret Pep 7210 H Total Protein 6.2 L Albumin 3.1 L Globulin 3.1 Albumin/Globulin Ratio 1.0 Arterial Blood Potassium Urine Color Bertha Urine Clarity Hazy Urine pH 5.0 Ur Specific [place] 1.012 Urine Protein Negative Urine Glucose (UA) Normal Urine Ketones Negative Urine Blood 2+ H Urine Nitrate Negative Urine Bilirubin Negative Urine Urobilinogen Normal Ur Leukocyte Esterase Trace Urine WBC (Auto) 20 H Urine RBC (Auto) 77 H Urine Bacteria Occ H Influenza Typ A,B (EIA) 03/23/18 03/23/18 03/23/18 10:00 10:47 17:00 WBC RBC Hgb Hct MCV MCH MCHC RDW Plt Count MPV Neut % (Auto) Lymph % (Auto) [place] % (Auto) Eos % (Auto) Baso % (Auto) Neut # (Auto) Lymph # (Auto) [place] # (Auto) Eos # (Auto) Baso # (Auto) Neutrophils % (Manual) Lymphocytes % (Manual) Monocytes % (Manual) Basophils % (Manual) Platelet Estimate Hypochromasia (manual) Poikilocytosis (manual Anisocytosis (manual) Target Cells Tear Drop Cells Ovalocytes PT INR APTT Puncture Site Rra Rradial pCO2 75 H* 70 H pO2 90 120 H HCO3 33.0 H 33.5 H ABG pH 7.33 L 7.36 ABG Total CO2 41.8 H 41.6 H ABG O2 Saturation 97.8 99.1 H ABG Base Excess 10.4 H 11.0 H Pawel Test Pos Pos ABG Potassium 3.5 L 3.3 L A-a O2 Difference 387.0 292.0 Respiratory Index 4.3 2.4 Sodium 143.0 144.0 Chloride 106.0 108.0 H Glucose 109 H 91 Lactate 1.6 1.0 Mechanical Rate FiO2 80.0 70.0 Tidal Volume PEEP Inspiratory BiPAP 20 18 Expiratory BiPAP 10 9 Crit Value Called To Dr ceron Crit Value Called By [facility] Crit Value Read Back Y Blood Gas Notified Time 1006 Potassium Carbon Dioxide Anion Gap BUN Creatinine Est GFR ( Amer) Est GFR (Non-Af Amer) POC Glucose (mg/dL) Random Glucose Calcium Total Bilirubin AST ALT Alkaline Phosphatase Total Creatine Kinase CK-MB (Mass) Troponin I NT-Pro-B Natriuret Pep Total Protein Albumin Globulin Albumin/Globulin Ratio Arterial Blood Potassium 3.5 L 3.3 L Urine Color Urine Clarity Urine pH Ur Specific [place] Urine Protein Urine Glucose (UA) Urine Ketones Urine Blood Urine Nitrate Urine Bilirubin Urine Urobilinogen Ur Leukocyte Esterase Urine WBC (Auto) Urine RBC (Auto) Urine Bacteria Influenza Typ A,B (EIA) Negative for flu a/b 03/23/18 17:50 WBC RBC Hgb Hct MCV MCH MCHC RDW Plt Count MPV Neut % (Auto) Lymph % (Auto) [place] % (Auto) Eos % (Auto) Baso % (Auto) Neut # (Auto) Lymph # (Auto) [place] # (Auto) Eos # (Auto) Baso # (Auto) Neutrophils % (Manual) Lymphocytes % (Manual) Monocytes % (Manual) Basophils % (Manual) Platelet Estimate Hypochromasia (manual) Poikilocytosis (manual Anisocytosis (manual) Target Cells Tear Drop Cells Ovalocytes PT INR APTT Puncture Site Rradial pCO2 62 H pO2 60 L HCO3 34.1 H ABG pH 7.41 ABG Total CO2 41.2 H ABG O2 Saturation 94.0 L ABG Base Excess 12.0 H Pawel Test Pos ABG Potassium 3.7 A-a O2 Difference 576.0 Respiratory Index 9.6 Sodium 143.0 Chloride 105.0 Glucose 97 Lactate 1.5 Mechanical Rate 16 FiO2 100.0 Tidal Volume 450 PEEP 5 Inspiratory BiPAP Expiratory BiPAP Crit Value Called To Crit Value Called By Crit Value Read Back Blood Gas Notified Time Potassium Carbon Dioxide Anion Gap BUN Creatinine Est GFR ( Amer) Est GFR (Non-Af Amer) POC Glucose (mg/dL) Random Glucose Calcium Total Bilirubin AST ALT Alkaline Phosphatase Total Creatine Kinase CK-MB (Mass) Troponin I NT-Pro-B Natriuret Pep Total Protein Albumin Globulin Albumin/Globulin Ratio Arterial Blood Potassium 3.7 Urine Color Urine Clarity Urine pH Ur Specific [place] Urine Protein Urine Glucose (UA) Urine Ketones Urine Blood Urine Nitrate Urine Bilirubin Urine Urobilinogen Ur Leukocyte Esterase Urine WBC (Auto) Urine RBC (Auto) Urine Bacteria Influenza Typ A,B (EIA) Attending/Attestation - Attestation I have personally seen and examined this patient.: Yes I have fully participated in the care of the patient.: Yes I have reviewed all pertinent clinical information: Yes Notes (Text): 03/23/18 18:02 Patient was seen and examined 81-year-old female recently discharged from hospital admitted with respiratory distress/pneumonia/CHF patient intubated and put on ventilatory support after she did not respond to BIPAP IV antibiotics IV sedation Nebulizer treatment Follow-up culture and sensitivity DVT and stress ulcer prophylaxis Spoke with daughter at length
[2018-03-23] MEDS ORDERED: Pantoprazole 40 mg EC Tab PO SCH (16:45)
[2018-03-23 17:06] LABS: ABG ALLEN TEST POS; ARTERIAL BLOOD GAS HCO3 33.5 mmol/L (21-28); ARTERIAL BLOOD GAS O2 SAT 99.1 % (95-98); ARTERIAL BLOOD GAS PCO2 70 mm/Hg (35-45); ARTERIAL BLOOD GAS PH 7.36 (7.35-7.45); ARTERIAL BLOOD GAS PO2 120 mm/Hg (80-100); ARTERIAL BLOOD GAS TCO2 41.6 mmol/L (22-28)
[2018-03-23] MEDS ORDERED: Etomidate 20 mg/10ml Inj IV ONE (17:14)
[2018-03-23] MEDS: Piperacill/Tazo 3.375gm in Dex 3.375 GM/50 ML BAG IVPB SCH (17:52)
[2018-03-23] MEDS: Sodium Chloride 0.9% 1,000 ML IV SCH (17:53)
[2018-03-23] MEDS: Silver Sulfadiazine 1% Cream (20 gm) TOP SCH (17:54)
[2018-03-23 17:57] LABS: ABG ALLEN TEST POS; ARTERIAL BLOOD GAS HCO3 34.1 mmol/L (21-28); ARTERIAL BLOOD GAS PCO2 62 mm/Hg (35-45); ARTERIAL BLOOD GAS PH 7.41 (7.35-7.45); ARTERIAL BLOOD GAS PO2 60 mm/Hg (80-100); ARTERIAL BLOOD GAS TCO2 41.2 mmol/L (22-28)
[2018-03-23] MEDS: Dexmedetomidine Hydrochloride 200 MCG in Sodium Chloride 0.9% 48 ML IV PRN (18:06)
--- NOTE | 2018-03-23 18:23 | RAD ---
HISTORY: intubated COMPARISON: chest x-ray performed 03/23/18, CTA chest performed 03/23/18 TECHNIQUE: Chest, one view. FINDINGS: Endotracheal tube terminates approximately 4.3 cm above the fareed. Nasogastric tube extends beyond the hemidiaphragm towards expected location of the stomach. External wires and leads obscure evaluation of the underlying parenchyma. LUNGS: Evidence of right greater than left interstitial edema or infection throughout the left hemithorax. Small to moderate left pleural effusion and/or consolidation. Moderate to large right pleural effusion and/or consolidation. CARDIOVASCULAR: Cardiomegaly. Atherosclerotic calcifications. OSSEOUS STRUCTURES: Degenerative changes of the spine. VISUALIZED UPPER ABDOMEN: Unremarkable. OTHER FINDINGS: None. IMPRESSION: Endotracheal tube terminates approximately 4.3 cm above the fareed. Nasogastric tube extends beyond the hemidiaphragm towards expected location of the stomach. Cardiomegaly. Evidence of right greater than left interstitial edema or infection throughout the left hemithorax. Small to moderate left pleural effusion and/or consolidation. Moderate to large right pleural effusion and/or consolidation.
[2018-03-23] MEDS: Albuterol-Ipratrop 3 mg / 0.5 (3 ml) UD INH SCH (20:47)
--- NOTE | 2018-03-23 21:30 | CP.PCM.CON ---
History of Present Illness - History of Present Illness History of Present Illness: HPI: Patient is a 82 y/o female w/ PMH of CHF, HTN, Afib on AC, and hx of pleural effusions with thoracentesis presents to emergency department for evaluation of shortness of breath. Patient's daughter at bedside and provided information because patient was tired and on BIPAP limiting her ability to speak for herself. Patient's daughter states that at [facility] her mother was short of breath this morning. She was not responsive to the staff at rehab prompting her to be transferred to ED. Of note patient was recently admitted s/p fall for which she dislocated her left shoulder. During stay patient was found to have pleural effusions requiring ICU care and thoracentesis. at the time of examination patient is intubated and sedated. Past Patient History - Infectious Disease Hx of Infectious Diseases: None - Tetanus Immunizations Tetanus Immunization: Unknown - Past Medical History & Family History Past Medical History?: Yes - Past Social History Smoking Status: Never Smoked - CARDIAC Hx Atrial Fibrillation: Yes Hx Congestive Heart Failure: Yes - PULMONARY Hx Chronic Obstructive Pulmonary Disease (COPD): Yes - NEUROLOGICAL Hx Dementia: Yes - ENDOCRINE/METABOLIC Hx Endocrine Disorders: No - HEMATOLOGICAL/ONCOLOGICAL Hx Blood Disorders: No - INTEGUMENTARY Other/Comment: weeping edema, on bilateral lower ext - MUSCULOSKELETAL/RHEUMATOLOGICAL Hx Falls: Yes - GASTROINTESTINAL Hx Gastrointestinal Disorders: No - GENITOURINARY/GYNECOLOGICAL Hx Genitourinary Disorders: No - PSYCHIATRIC Hx Substance Use: No - SURGICAL HISTORY Hx Surgeries: No - ANESTHESIA Hx Anesthesia: Yes Meds Allergies/Adverse Reactions: Allergies Allergy/AdvReac Type Severity Reaction Status Date / Time warfarin [From Coumadin] Allergy Verified 03/23/18 08:16 - Medications Medications: Current Medications Acetaminophen (Tylenol 325mg Tab) 650 mg PO Q6 PRN PRN Reason: Fever >100.4 F Albuterol/Ipratropium (Duoneb 3 Mg/0.5 Mg (3 Ml) Ud) 3 ml INH RQ4 KEV Last Admin: 03/23/18 20:47 Dose: 3 ml Amiodarone HCl (Cordarone) 200 mg PO DAILY KEV Last Admin: 03/23/18 18:05 Dose: 200 mg Apixaban (Eliquis) 5 mg PO BID [facility] Last Admin: 03/23/18 17:58 Dose: 5 mg Piperacillin Sod/Tazobactam Sod (Zosyn 3.375 Gm Iv Premix) 3.375 gm in 50 mls @ 100 mls/hr IVPB Q8H [facility]; Protocol Last Admin: 03/23/18 17:52 Dose: 100 mls/hr Sodium Chloride (Sodium Chloride 0.9%) 1,000 mls @ 100 mls/hr IV .Q10H K[facility] Last Admin: 03/23/18 17:53 Dose: 100 mls/hr Vancomycin/Sodium Chloride (Vancomycin 1 Gm/Ns 200 Ml) 1 gm in 200 mls @ 133 mls/hr IVPB Q12H [facility]; Protocol Stop: 03/29/18 00:31 Dexmedetomidine HCl 200 mcg/ (Sodium Chloride) 50 mls @ 5.01 mls/hr IV TITR PRN; Protocol PRN Reason: Intubation Last Admin: 03/23/18 18:06 Dose: 0.2 mcg/kg/hr, 5.01 mls/hr Nystatin (Nystop Topical Powder) 1 applic TOP BID [facility] Last Admin: 03/23/18 17:53 Dose: 1 applic Pantoprazole Sodium (Protonix Inj) 40 mg IVP DAILY [facility] Last Admin: 03/23/18 18:00 Dose: 40 mg Silver Sulfadiazine (Silvadene 1% 20 Gm) 1 ea TOP Q12H [facility] Last Admin: 03/23/18 17:54 Dose: 20 gm Spironolactone (Aldactone) 25 mg PO Q2D [facility] Verapamil HCl (Calan Tab) 40 mg PO Q8H [facility] Last Admin: 03/23/18 17:54 Dose: 40 mg Physical Exam - Head Exam Head Exam: NORMOCEPHALIC - Neck Exam Neck exam: Positive for: Normal Inspection - Respiratory Exam Additional comments: Intubated - Cardiovascular Exam Cardiovascular Exam: Irregular Rhythm Additional comments: Atrial fibrillation with controlled rate. - Extremities Exam Extremities exam: Positive for: normal inspection - Neurological Exam Additional comments: Sedated. Results - Vital Signs Recent Vital Signs: Last Vital Signs Temp 97.3 F L 03/23/18 20:00 Pulse 73 03/23/18 20:16 Resp 16 03/23/18 20:16 BP 91/58 L 03/23/18 20:16 Pulse Ox 100 03/23/18 20:16 - Labs Result Diagrams: 03/23/18 08:31 03/23/18 08:31 Labs: Laboratory Results - last 24 hr 03/23/18 03/23/18 03/23/18 08:14 08:25 08:31 WBC 9.7 RBC 4.80 Hgb 12.4 Hct 39.8 MCV 82.9 D MCH 25.9 L MCHC 31.2 L RDW 25.9 H Plt Count 188 MPV 9.1 Neut % (Auto) 86.3 H Lymph % (Auto) 6.9 L Irwin % (Auto) 6.5 Eos % (Auto) 0.1 Baso % (Auto) 0.2 Neut # (Auto) 8.4 H Lymph # (Auto) 0.7 L Irwin # (Auto) 0.6 Eos # (Auto) 0.0 Baso # (Auto) 0.0 Neutrophils % (Manual) 88 H Lymphocytes % (Manual) 5 L Monocytes % (Manual) 6 Basophils % (Manual) 1 Platelet Estimate Normal Hypochromasia (manual) Slight Poikilocytosis (manual Slight Anisocytosis (manual) Slight Target Cells Slight Tear Drop Cells Slight Ovalocytes Slight PT INR APTT Puncture Site Rra pCO2 82 H* pO2 83 HCO3 33.8 H ABG pH 7.31 L ABG Total CO2 43.8 H ABG O2 Saturation 97.3 ABG Base Excess 11.4 H Pawel Test Pos ABG Potassium 3.7 A-a O2 Difference 528.0 Respiratory Index 6.4 Sodium 142.0 Chloride 103.0 Glucose 130 H Lactate 1.4 Mechanical Rate FiO2 100.0 Tidal Volume PEEP Inspiratory BiPAP 20 Expiratory BiPAP 10 Crit Value Called To Dr ceron Crit Value Called By [facility] Crit Value Read Back Y Blood Gas Notified Time 833 Potassium Carbon Dioxide Anion Gap BUN Creatinine Est GFR ( Amer) Est GFR (Non-Af Amer) POC Glucose (mg/dL) 148 H Random Glucose Calcium Total Bilirubin AST ALT Alkaline Phosphatase Total Creatine Kinase CK-MB (Mass) Troponin I NT-Pro-B Natriuret Pep Total Protein Albumin Globulin Albumin/Globulin Ratio Arterial Blood Potassium 3.7 Urine Color Urine Clarity Urine pH Ur Specific [place] Urine Protein Urine Glucose (UA) Urine Ketones Urine Blood Urine Nitrate Urine Bilirubin Urine Urobilinogen Ur Leukocyte Esterase Urine WBC (Auto) Urine RBC (Auto) Urine Bacteria Influenza Typ A,B (EIA) 12/03/23/18 03/23/18 08:31 08:31 09:14 WBC RBC Hgb Hct MCV MCH MCHC RDW Plt Count MPV Neut % (Auto) Lymph % (Auto) Irwin % (Auto) Eos % (Auto) Baso % (Auto) Neut # (Auto) Lymph # (Auto) Irwin # (Auto) Eos # (Auto) Baso # (Auto) Neutrophils % (Manual) Lymphocytes % (Manual) Monocytes % (Manual) Basophils % (Manual) Platelet Estimate Hypochromasia (manual) Poikilocytosis (manual Anisocytosis (manual) Target Cells Tear Drop Cells Ovalocytes PT 29.4 H INR 2.7 APTT 35 H Puncture Site pCO2 pO2 HCO3 ABG pH ABG Total CO2 ABG O2 Saturation ABG Base Excess Pawel Test ABG Potassium A-a O2 Difference Respiratory Index Sodium 142 Chloride 98 Glucose Lactate Mechanical Rate FiO2 Tidal Volume PEEP Inspiratory BiPAP Expiratory BiPAP Crit Value Called To Crit Value Called By Crit Value Read Back Blood Gas Notified Time Potassium 4.0 Carbon Dioxide 38 H Anion Gap 9 L BUN 48 H Creatinine 1.0 Est GFR ( Amer) > 60 Est GFR (Non-Af Amer) 53 POC Glucose (mg/dL) Random Glucose 135 H Calcium 8.6 Total Bilirubin 1.4 H AST 75 H D ALT 35 Alkaline Phosphatase 75 Total Creatine Kinase < 20 L CK-MB (Mass) 0.37 Troponin I 0.0150 NT-Pro-B Natriuret Pep 7210 H Total Protein 6.2 L Albumin 3.1 L Globulin 3.1 Albumin/Globulin Ratio 1.0 Arterial Blood Potassium Urine Color Bertha Urine Clarity Hazy Urine pH 5.0 Ur Specific [place] 1.012 Urine Protein Negative Urine Glucose (UA) Normal Urine Ketones Negative Urine Blood 2+ H Urine Nitrate Negative Urine Bilirubin Negative Urine Urobilinogen Normal Ur Leukocyte Esterase Trace Urine WBC (Auto) 20 H Urine RBC (Auto) 77 H Urine Bacteria Occ H Influenza Typ A,B (EIA) 03/23/18 03/23/18 03/23/18 10:00 10:47 17:00 WBC RBC Hgb Hct MCV MCH MCHC RDW Plt Count MPV Neut % (Auto) Lymph % (Auto) Irwin % (Auto) Eos % (Auto) Baso % (Auto) Neut # (Auto) Lymph # (Auto) Irwin # (Auto) Eos # (Auto) Baso # (Auto) Neutrophils % (Manual) Lymphocytes % (Manual) Monocytes % (Manual) Basophils % (Manual) Platelet Estimate Hypochromasia (manual) Poikilocytosis (manual Anisocytosis (manual) Target Cells Tear Drop Cells Ovalocytes PT INR APTT Puncture Site Rra Rradial pCO2 75 H* 70 H pO2 90 120 H HCO3 33.0 H 33.5 H ABG pH 7.33 L 7.36 ABG Total CO2 41.8 H 41.6 H ABG O2 Saturation 97.8 99.1 H ABG Base Excess 10.4 H 11.0 H Pawel Test Pos Pos ABG Potassium 3.5 L 3.3 L A-a O2 Difference 387.0 292.0 Respiratory Index 4.3 2.4 Sodium 143.0 144.0 Chloride 106.0 108.0 H Glucose 109 H 91 Lactate 1.6 1.0 Mechanical Rate FiO2 80.0 70.0 Tidal Volume PEEP Inspiratory BiPAP 20 18 Expiratory BiPAP 10 9 Crit Value Called To Dr ceron Crit Value Called By [facility] Crit Value Read Back Y Blood Gas Notified Time 1006 Potassium Carbon Dioxide Anion Gap BUN Creatinine Est GFR ( Amer) Est GFR (Non-Af Amer) POC Glucose (mg/dL) Random Glucose Calcium Total Bilirubin AST ALT Alkaline Phosphatase Total Creatine Kinase CK-MB (Mass) Troponin I NT-Pro-B Natriuret Pep Total Protein Albumin Globulin Albumin/Globulin Ratio Arterial Blood Potassium 3.5 L 3.3 L Urine Color Urine Clarity Urine pH Ur Specific [place] Urine Protein Urine Glucose (UA) Urine Ketones Urine Blood Urine Nitrate Urine Bilirubin Urine Urobilinogen Ur Leukocyte Esterase Urine WBC (Auto) Urine RBC (Auto) Urine Bacteria Influenza Typ A,B (EIA) Negative for flu a/b 03/23/18 17:50 WBC RBC Hgb Hct MCV MCH MCHC RDW Plt Count MPV Neut % (Auto) Lymph % (Auto) Irwin % (Auto) Eos % (Auto) Baso % (Auto) Neut # (Auto) Lymph # (Auto) Irwin # (Auto) Eos # (Auto) Baso # (Auto) Neutrophils % (Manual) Lymphocytes % (Manual) Monocytes % (Manual) Basophils % (Manual) Platelet Estimate Hypochromasia (manual) Poikilocytosis (manual Anisocytosis (manual) Target Cells Tear Drop Cells Ovalocytes PT INR APTT Puncture Site Rradial pCO2 62 H pO2 60 L HCO3 34.1 H ABG pH 7.41 ABG Total CO2 41.2 H ABG O2 Saturation 94.0 L ABG Base Excess 12.0 H Pawel Test Pos ABG Potassium 3.7 A-a O2 Difference 576.0 Respiratory Index 9.6 Sodium 143.0 Chloride 105.0 Glucose 97 Lactate 1.5 Mechanical Rate 16 FiO2 100.0 Tidal Volume 450 PEEP 5 Inspiratory BiPAP Expiratory BiPAP Crit Value Called To Crit Value Called By Crit Value Read Back Blood Gas Notified Time Potassium Carbon Dioxide Anion Gap BUN Creatinine Est GFR ( Amer) Est GFR (Non-Af Amer) POC Glucose (mg/dL) Random Glucose Calcium Total Bilirubin AST ALT Alkaline Phosphatase Total Creatine Kinase CK-MB (Mass) Troponin I NT-Pro-B Natriuret Pep Total Protein Albumin Globulin Albumin/Globulin Ratio Arterial Blood Potassium 3.7 Urine Color Urine Clarity Urine pH Ur Specific [place] Urine Protein Urine Glucose (UA) Urine Ketones Urine Blood Urine Nitrate Urine Bilirubin Urine Urobilinogen Ur Leukocyte Esterase Urine WBC (Auto) Urine RBC (Auto) Urine Bacteria Influenza Typ A,B (EIA) Assessment & Plan (1) Atrial fibrillation and flutter Assessment and Plan: Atrial fibrillation, rate is control. Continue therapeutic anticoagulation. Status: Acute (2) CHF (congestive heart failure) Assessment and Plan: Diuretics. Possible thoracentesis. Fluid restriction to 1.5 L/day. Prognosis guarded. Status: Acute
[2018-03-23] MEDS: Vancomycin 1 gm/NS 200 ml 1 GM/200 ML BAG IVPB SCH (23:30)
[2018-03-24] MEDS: Albuterol-Ipratrop 3 mg / 0.5 (3 ml) UD INH SCH ×6 (00:43→19:21)
[2018-03-24] MEDS: Piperacill/Tazo 3.375gm in Dex 3.375 GM/50 ML BAG IVPB SCH ×3 (01:00→18:33)
[2018-03-24] MEDS: Sodium Chloride 0.9% 1,000 ML IV SCH ×3 (03:00→13:05)
[2018-03-24] MEDS: Silver Sulfadiazine 1% Cream (20 gm) TOP SCH ×2 (05:00→16:56)
[2018-03-24 05:05] LABS: ABG ALLEN TEST POS; ARTERIAL BLOOD GAS HCO3 34.6 mmol/L (21-28); ARTERIAL BLOOD GAS O2 SAT 99.7 % (95-98); ARTERIAL BLOOD GAS PCO2 45 mm/Hg (35-45); ARTERIAL BLOOD GAS PH 7.52 (7.35-7.45); ARTERIAL BLOOD GAS PO2 150 mm/Hg (80-100); ARTERIAL BLOOD GAS TCO2 38.1 mmol/L (22-28)
[2018-03-24 05:44] LABS: BASO % 0.6 % (0.0-2.0); EOS % 0.4 % (0.0-4.0); HEMOGLOBIN 10.2 g/dL (11.0-16.0); LYMPH # 0.7 K/uL (1.0-4.3); LYMPH % 9.5 % (20.0-40.0); MEAN CELL VOLUME 82.6 fL (81.0-99.0); MEAN CORPUSCULAR HEMOGLOBIN 25.4 pg (27.0-31.0); MEAN CORPUSCULAR HGB CONC 30.8 g/dL (33.0-37.0); MEAN PLATELET VOLUME 8.8 fL (7.2-11.7); MONO # 0.7 K/uL (0.0-0.8); MONO % 8.5 % (0.0-10.0); NEUT # 6.3 K/uL (1.8-7.0); PLATELET COUNT 157 K/uL (130-400); RBC 3.99 Mil/uL (3.80-5.20); RED CELL DISTRIBUTION WIDTH 26.2 % (11.5-14.5); WHITE BLOOD COUNT 7.8 K/uL (4.8-10.8)
[2018-03-24] MEDS: Dexmedetomidine Hydrochloride 200 MCG in Sodium Chloride 0.9% 48 ML IV PRN ×2 (06:05→21:13)
[2018-03-24 06:14] LABS: ALB/GLOB RATIO 0.9 (1.0-2.1); ALBUMIN 2.3 g/dL (3.5-5.0); ALT/SGPT 31 U/L (9-52); AST/SGOT 27 U/L (14-36); BLOOD UREA NITROGEN 50 mg/dL (7-17); CALCIUM 8.1 mg/dl (8.6-10.4); GFR NON-AFRICAN AMERICAN > 60
[2018-03-24 08:26] LABS: ANISOCYTOSIS SLIGHT; LYMPHOCYTE 11 % (20-40); MONOCYTE 6 % (0-10); NEUTROPHIL 83 % (50-75); PLATELET ESTIMATE NORMAL (NORMAL); POIKILOCYTOSIS SLIGHT; TOTAL CELLS COUNTED 100
[2018-03-24 08:27] LABS: HYPOCHROMIC SLIGHT; OVALOCYTES SLIGHT
[2018-03-24 08:28] LABS: TARGET CELLS SLIGHT
[2018-03-24 08:29] LABS: LARGE PLATELETS PRESENT; MICROCYTOSIS SLIGHT; TEARDROP CELLS SLIGHT
--- NOTE | 2018-03-24 08:52 | PCM.PROC ---
Procedures Attestation:: I certify that I have explained the specified Operation(s) or Procedure(s), risks, benefits and reasonable alternatives to the Patient and/or other person responsible. The opportunity was given to ask questions and all questions answered - Intubation Time Out Performed: Yes Sedative: Etomidate Mg Given: 20 Laryngoscope: Silvio ET Tube Size: 7.5 ET Tube Uncuffed: No ET Tube Secured at Depth: 22 ET Tube Secured Locarion: Lips ET Tube Placement Confirmation: Visualized Passing Through Cords, Breath Sounds Equal Bilaterally, No Breath Sounds Over Epigastrum, Confirmation w/Capnometry Patient Tolerated Procedure: Well Procedure Immediate Complications: None
--- NOTE | 2018-03-24 10:08 | CP.PCM.PN ---
Subjective - Date & Time of Evaluation Date of Evaluation: 03/24/18 Time of Evaluation: 10:03 - Subjective Subjective: Still intubated and sedated. Objective - Vital Signs/Intake and Output Vital Signs (last 24 hours): Temp Pulse Resp BP Pulse Ox 99.1 F 74 19 90/61 L 83 L 03/24/18 00:00 03/24/18 09:10 03/24/18 09:10 03/24/18 08:46 03/24/18 09:10 Intake and Output: 03/24/18 03/24/18 06:59 18:59 Intake Total 1336.250 102.5 Output Total 750 60 Balance 586.250 42.5 - Medications Medications: Current Medications Acetaminophen (Tylenol 325mg Tab) 650 mg PO Q6 PRN PRN Reason: Fever >100.4 F Albuterol/Ipratropium (Duoneb 3 Mg/0.5 Mg (3 Ml) Ud) 3 ml INH RQ4 KEV Last Admin: 03/24/18 08:17 Dose: 3 ml Amiodarone HCl (Cordarone) 200 mg PO DAILY KEV Last Admin: 03/23/18 18:05 Dose: 200 mg Apixaban (Eliquis) 5 mg PO BID [facility] Last Admin: 03/23/18 17:58 Dose: 5 mg Piperacillin Sod/Tazobactam Sod (Zosyn 3.375 Gm Iv Premix) 3.375 gm in 50 mls @ 100 mls/hr IVPB Q8H [facility]; Protocol Last Admin: 03/24/18 09:26 Dose: 100 mls/hr Sodium Chloride (Sodium Chloride 0.9%) 1,000 mls @ 100 mls/hr IV .Q10H [facility] Last Admin: 03/24/18 08:36 Dose: 100 mls/hr Vancomycin/Sodium Chloride (Vancomycin 1 Gm/Ns 200 Ml) 1 gm in 200 mls @ 133 mls/hr IVPB Q12H [facility]; Protocol Stop: 03/29/18 00:31 Last Admin: 03/23/18 23:30 Dose: 133 mls/hr Dexmedetomidine HCl 200 mcg/ (Sodium Chloride) 50 mls @ 5.01 mls/hr IV TITR PRN; Protocol PRN Reason: Intubation Last Admin: 03/24/18 06:05 Dose: 0.1 mcg/kg/hr, 2.51 mls/hr Nystatin (Nystop Topical Powder) 1 applic TOP BID [facility] Last Admin: 03/23/18 17:53 Dose: 1 applic Pantoprazole Sodium (Protonix Inj) 40 mg IVP DAILY [facility] Last Admin: 03/23/18 18:00 Dose: 40 mg Silver Sulfadiazine (Silvadene 1% 20 Gm) 1 ea TOP Q12H [facility] Last Admin: 03/24/18 05:00 Dose: 1 gm Spironolactone (Aldactone) 25 mg PO Q2D [facility] Last Admin: 03/24/18 08:33 Dose: 25 mg Verapamil HCl (Calan Tab) 40 mg PO Q8H [facility] Last Admin: 03/24/18 08:34 Dose: 40 mg - Labs Labs: 03/24/18 05:37 03/24/18 05:35 PT 29.4 SECONDS (9.7-12.2) H 03/23/18 08:31 INR 2.7 03/23/18 08:31 APTT 35 SECONDS (21-34) H 03/23/18 08:31 - Head Exam Head Exam: NORMOCEPHALIC - Neck Exam Neck Exam: Normal Inspection - Respiratory Exam Additional comments: Intubated. - Cardiovascular Exam Cardiovascular Exam: Irregular Rhythm - Extremities Exam Extremities Exam: Normal Inspection - Neurological Exam Additional comments: Sedated. Assessment and Plan (1) Atrial fibrillation and flutter Assessment & Plan: Rate controlled, continue therapeutic anticoagulation. Status: Acute (2) CHF (congestive heart failure) Assessment & Plan: Increase BUN, may need Albumin with diuretics. Discussed with team for pleural Tap. Keep K.4 and Mg.2. Discussed with daughter. Status: Acute
--- NOTE | 2018-03-24 10:11 | RAD ---
Date of service: 03/24/2018 HISTORY: intubated COMPARISON: 03/23/2018. FINDINGS: Endotracheal tube terminates 1.6 cm proximal to the fareed. The nasogastric tube terminates in the stomach. LUNGS: There is interval improved aeration in the lungs with residual presumable pulmonary edema. PLEURA: Persistent layering effusions. No pneumothorax. CARDIOVASCULAR: Stable. No aortic atherosclerotic calcification present. OSSEOUS STRUCTURES: Within normal limits for the patient's age. VISUALIZED UPPER ABDOMEN: Normal. OTHER FINDINGS: None. IMPRESSION: Interval improved aeration in the lungs with residual pulmonary edema and effusions.
[2018-03-24] MEDS ORDERED: Propofol 10 mg/ml Inj (20 ML) IV ONE ×2 (11:25→17:00)
--- NOTE | 2018-03-24 11:40 | CP.PCM.HP ---
History of Present Illness - History of Present Illness History of Present Illness: pt transfered from [facility] for respiratory distress Present on Admission - Present on Admission Any Indicators Present on Admission: Yes Review of Systems - Review of Systems Systems not reviewed;Unavailable: Acuity of Condition, Respiratory Distress, Dementia, Intubated - Constitutional Constitutional: Fatigue, Fever - EENT Eyes: As Per HPI Ears: As Per HPI Nose/Mouth/Throat: As Per HPI - Breasts Breasts: As Per HPI - Cardiovascular Cardiovascular: Dyspnea, Irregular Heart Rhythm, Pedal Edema - Respiratory Respiratory: Dyspnea, Chest Congestion, Excessive Mucous Production - Gastrointestinal Gastrointestinal: As Per HPI - Genitourinary Genitourinary: As Per HPI - Reproductive: Female Reproductive:Female: As Per HPI - Menstruation Menstruation: Post Menopausal - Musculoskeletal Musculoskeletal: Muscle Weakness Additional comments: celulitis legs - Integumentary Integumentary: Erythema, Skin Ulcer - Neurological Additional comments: sedated - Psychiatric Psychiatric: As Per HPI - Endocrine Endocrine: As Per HPI - Hematologic/Lymphatic Hematologic: As Per HPI Additional comments: aneamia Past Patient History - Infectious Disease Hx of Infectious Diseases: None - Tetanus Immunizations Tetanus Immunization: Unknown - Past Medical History & Family History Past Medical History?: Yes - Past Social History Smoking Status: Never Smoked - CARDIAC Hx Atrial Fibrillation: Yes Hx Congestive Heart Failure: Yes - PULMONARY Hx Chronic Obstructive Pulmonary Disease (COPD): Yes - NEUROLOGICAL Hx Dementia: Yes - ENDOCRINE/METABOLIC Hx Endocrine Disorders: No - HEMATOLOGICAL/ONCOLOGICAL Hx Blood Disorders: No - INTEGUMENTARY Other/Comment: weeping edema, on bilateral lower ext - MUSCULOSKELETAL/RHEUMATOLOGICAL Hx Falls: Yes - GASTROINTESTINAL Hx Gastrointestinal Disorders: No - GENITOURINARY/GYNECOLOGICAL Hx Genitourinary Disorders: No - PSYCHIATRIC Hx Substance Use: No - SURGICAL HISTORY Hx Surgeries: No - ANESTHESIA Hx Anesthesia: Yes Meds Allergies/Adverse Reactions: Allergies Allergy/AdvReac Type Severity Reaction Status Date / Time warfarin [From Coumadin] Allergy Verified 03/23/18 08:16 Physical Exam - Constitutional Appears: In Acute Distress - Head Exam Head Exam: ATRAUMATIC - Eye Exam Eye Exam: Normal appearance - ENT Exam Additional comments: pt entubated - Neck Exam Neck exam: Positive for: Full Rom - Respiratory Exam Respiratory Exam: Decreased Breath Sounds - Cardiovascular Exam Cardiovascular Exam: Irregular Rhythm - GI/Abdominal Exam GI & Abdominal Exam: Normal Bowel Sounds - Rectal Exam Rectal Exam: NORMAL INSPECTION - Extremities Exam Additional comments: celulitis legs - Neurological Exam Additional comments: sedated - Skin Skin Exam: Erythema Results - Vital Signs Recent Vital Signs: Last Vital Signs Temp 99.1 F 03/24/18 00:00 Pulse 74 03/24/18 09:10 Resp 19 03/24/18 09:10 BP 90/61 L 03/24/18 08:46 Pulse Ox 83 L 03/24/18 09:10 - Labs Result Diagrams: 03/24/18 05:37 03/24/18 05:35 Labs: Laboratory Results - last 24 hr 03/23/18 03/23/18 03/24/18 17:00 17:50 04:55 WBC RBC Hgb Hct MCV MCH MCHC RDW Plt Count MPV Neut % (Auto) Lymph % (Auto) Stone % (Auto) Eos % (Auto) Baso % (Auto) Neut # (Auto) Lymph # (Auto) Stone # (Auto) Eos # (Auto) Baso # (Auto) Neutrophils % (Manual) Lymphocytes % (Manual) Monocytes % (Manual) Platelet Estimate Large Platelets Hypochromasia (manual) Poikilocytosis (manual Anisocytosis (manual) Microcytosis (manual) Target Cells Tear Drop Cells Ovalocytes Puncture Site Rradial Rradial Rr pCO2 70 H 62 H 45 pO2 120 H 60 L 150 H HCO3 33.5 H 34.1 H 34.6 H ABG pH 7.36 7.41 7.52 H ABG Total CO2 41.6 H 41.2 H 38.1 H ABG O2 Saturation 99.1 H 94.0 L 99.7 H ABG Base Excess 11.0 H 12.0 H 12.3 H Pawel Test Pos Pos Pos ABG Potassium 3.3 L 3.7 2.9 L A-a O2 Difference 292.0 576.0 507.0 Respiratory Index 2.4 9.6 3.4 Sodium 144.0 143.0 144.0 Chloride 108.0 H 105.0 107.0 Glucose 91 97 76 Lactate 1.0 1.5 1.0 Vent Mode Prvc Mechanical Rate 16 16 FiO2 70.0 100.0 100.0 Tidal Volume 450 450 PEEP 5 5 Inspiratory BiPAP 18 Expiratory BiPAP 9 Potassium Carbon Dioxide Anion Gap BUN Creatinine Est GFR ( Amer) Est GFR (Non-Af Amer) Random Glucose Calcium Phosphorus Magnesium Total Bilirubin AST ALT Alkaline Phosphatase Total Protein Albumin Globulin Albumin/Globulin Ratio Arterial Blood Potassium 3.3 L 3.7 2.9 L 03/24/18 03/24/18 05:35 05:37 WBC 7.8 RBC 3.99 Hgb 10.2 L D Hct 33.0 L MCV 82.6 MCH 25.4 L MCHC 30.8 L RDW 26.2 H Plt Count 157 MPV 8.8 Neut % (Auto) 81.0 H Lymph % (Auto) 9.5 L Stone % (Auto) 8.5 Eos % (Auto) 0.4 Baso % (Auto) 0.6 Neut # (Auto) 6.3 Lymph # (Auto) 0.7 L Stone # (Auto) 0.7 Eos # (Auto) 0.0 Baso # (Auto) 0.0 Neutrophils % (Manual) 83 H Lymphocytes % (Manual) 11 L Monocytes % (Manual) 6 Platelet Estimate Normal Large Platelets Present Hypochromasia (manual) Slight Poikilocytosis (manual Slight Anisocytosis (manual) Slight Microcytosis (manual) Slight Target Cells Slight Tear Drop Cells Slight Ovalocytes Slight Puncture Site pCO2 pO2 HCO3 ABG pH ABG Total CO2 ABG O2 Saturation ABG Base Excess Pawel Test ABG Potassium A-a O2 Difference Respiratory Index Sodium 140 Chloride 99 Glucose Lactate Vent Mode Mechanical Rate FiO2 Tidal Volume PEEP Inspiratory BiPAP Expiratory BiPAP Potassium 3.1 L Carbon Dioxide 40 H* Anion Gap 4 L BUN 50 H Creatinine 0.7 Est GFR ( Amer) > 60 Est GFR (Non-Af Amer) > 60 Random Glucose 72 Calcium 8.1 L Phosphorus 2.3 L Magnesium 2.0 Total Bilirubin 1.6 H AST 27 ALT 31 Alkaline Phosphatase 53 Total Protein 4.6 L Albumin 2.3 L D Globulin 2.4 Albumin/Globulin Ratio 0.9 L Arterial Blood Potassium Assessment & Plan - Assessment and Plan (Free Text) Assessment: ac respiratory distress entubated bilateral pleural efusion at fib fluter chf dm obessity dementia Plan: cont as per [facility]cu care - Date & Time Date: 03/24/18 Time: 11:46
--- NOTE | 2018-03-24 12:29 | CARD ---
APPROVED REPORT Date of service: 03/23/2018 EKG Measurement Heart [id number] <Conclusion> Atrial fibrillation Low voltage QRS Cannot rule out Anterior infarct, age undetermined Abnormal ECG
[2018-03-24] MEDS: Vancomycin 1 gm/NS 200 ml 1 GM/200 ML BAG IVPB SCH ×2 (13:36→23:48)
--- NOTE | 2018-03-24 14:03 | CP.CCUPN ---
<Margi Valenzuela - Last Filed: 03/24/18 14:27> CCU Subjective - Physician Review Events Since Last Encounter (Free Text): 03/24/18 13:58 Patient was intubated on 03/24 after ED transfer. GCS was 6. Subjective (Free Text): 03/24/18 14:27 PGY-1 Critical Care Progress Note for Dr. Amador's service Patient seen and examined at bedside. 12 point ROS limited as patient is intubated. Critical Care Time Spent (in minutes): 35 CCU Objective - Vital Signs / Intake & Output Vital Signs (Last 4 hours): Vital Signs Pulse Resp BP Pulse Ox 03/24/18 11:40 73 16 100 03/24/18 11:36 71 17 124/88 94 L 03/24/18 11:30 72 16 100 03/24/18 11:21 76 17 114/85 89 L 03/24/18 11:20 94 H 18 03/24/18 11:10 74 16 98 03/24/18 11:00 78 19 03/24/18 10:59 74 22 117/82 94 L 03/24/18 10:50 67 16 100 03/24/18 10:46 73 19 85/58 L 03/24/18 10:44 79 20 86/46 L 03/24/18 10:40 73 20 03/24/18 10:38 82 19 90/61 L 100 03/24/18 10:30 82 20 90 L 03/24/18 10:26 80 18 80/53 L 03/24/18 10:20 72 16 100 03/24/18 10:16 70 16 78/50 L 100 03/24/18 10:15 76 16 78/52 L 100 03/24/18 10:10 76 16 100 03/24/18 10:02 70 16 76/50 L 99 03/24/18 10:01 74 16 77/49 L 99 03/24/18 10:00 72 16 73/49 L 100 Intake and Output (Last 8hrs): Intake & Output 03/23/18 03/24/18 03/24/18 22:59 06:59 14:59 Intake Total 638.775 907.475 765.4 Output Total 320 430 400 Balance 318.775 477.475 365.4 Weight 216 lb 6.4 oz Intake: IV 12.525 37.475 4 Intake, IV Amount 626.25 870.0 761.4 Right Antecubital 300 Right Forearm 305 850 700 Right Hand 43.9 Right Upper arm 10 right FA #2 11.25 20.0 17.5 Output: Urine 320 430 400 Urethral ([place]) 320 430 400 Stool 0 Other: Voiding Method Indwelling Catheter # Bowel Movements 1 1 - Physical Exam Narrative Physical Exam (Free Text): 03/24/18 14:39 Intubated Head: Positive for: Atraumatic, Normocephalic Pupils: Positive for: PERRL Extroacular Muscles: Positive for: EOMI Conjunctiva: Positive for: Normal Mouth: Positive for: Dry Neck: Positive for: Normal Range of Motion. Negative for: JVD, Lymphadenopathy Respiratory/Chest: Positive for: Good Air Exchange. Negative for: Respiratory Distress, Accessory Muscle Use, Wheezes, Tachypneic Cardiovascular: Positive for: Regular Rate and Rhythm, Normal S1, S2. Negative for: Murmurs, Irregular Rhythm Abdomen: Positive for: Normal Bowel Sounds. Negative for: Tenderness, Distention, Peritoneal Signs Upper Extremity: Positive for: Normal Inspection. Negative for: Cyanosis, Edema Lower Extremity: Positive for: Normal Inspection. Negative for: Edema Skin: Positive for: Dry, Normal Color. Negative for: Diaphoretic Psychiatric: Positive for: Alert - Medications Active Medications: Active Medications Generic Name Dose Route Start Last Admin Trade Name Freq PRN Reason Stop Dose Admin Acetaminophen 650 mg 03/23/18 15:59 Tylenol 325mg Tab PO Q6 PRN Fever >100.4 F Albuterol/Ipratropium 3 ml 03/23/18 20:00 03/24/18 13:51 Duoneb 3 Mg/0.5 Mg (3 Ml) Ud INH Not Given RQ4 CAMILLA Amiodarone HCl 200 mg 03/23/18 16:45 03/24/18 13:07 Cordarone PO 200 mg DAILY CAMILLA Administration Apixaban 5 mg 03/23/18 18:00 03/24/18 10:09 Eliquis PO 5 mg BID CAMILLA Administration Piperacillin Sod/Tazobactam Sod 3.375 gm in 50 mls @ 100 mls/hr 03/23/18 17:00 03/24/18 09:26 Zosyn 3.375 Gm Iv Premix IVPB 100 mls/hr Q8H [place] Administration Protocol Sodium Chloride 1,000 mls @ 100 mls/hr 03/23/18 17:00 03/24/18 13:05 Sodium Chloride 0.9% IV Not Given .Q10H [place] Vancomycin/Sodium Chloride 1 gm in 200 mls @ 133 mls/hr 03/24/18 00:30 03/24/18 13:36 Vancomycin 1 Gm/Ns 200 Ml IVPB 03/29/18 00:31 133 mls/hr Q12H [place] Administration Protocol Dexmedetomidine HCl 200 mcg/ 50 mls @ 5.01 mls/hr 03/23/18 17:51 03/24/18 06:05 Sodium Chloride IV 0.1 mcg/kg/hr TITR PRN 2.51 mls/hr Intubation Administration Protocol 0.2 MCG/KG/HR Norepinephrine Bitartrate 4 mg 254 mls @ 15.24 mls/hr 03/24/18 10:20 03/24/18 11:00 / Sodium Chloride IV 3 mcg/min .[id number] PRN 11.43 mls/hr TITRATE PER MD ORDER Titration Protocol 4 MCG/MIN Nystatin 1 applic 03/23/18 18:00 03/24/18 10:10 Nystop Topical Powder TOP 1 applic BID CAM[place]A Administration Pantoprazole Sodium 40 mg 03/23/18 17:30 03/24/18 10:09 Protonix Inj IVP 40 mg DAILY CAM[place]A Administration Silver Sulfadiazine 1 ea 03/23/18 16:45 03/24/18 05:00 Silvadene 1% 20 Gm TOP 1 gm Q12H [place] Administration Spironolactone 25 mg 03/24/18 07:00 03/24/18 08:33 Aldactone PO 25 mg Q2D [place] Administration Verapamil HCl 40 mg 03/23/18 16:45 03/24/18 08:34 Calan Tab PO 40 mg Q8H [place]A Administration - Patient Studies Lab Studies: Microbiology Studies 03/23/18 08:25 Blood Culture - Preliminary Blood NO GROWTH AFTER 24 HOURS 03/23/18 08:00 Blood Culture - Preliminary Blood NO GROWTH AFTER 24 HOURS Lab Studies 03/24/18 03/24/18 03/24/18 Range/Units 05:37 05:35 04:55 WBC 7.8 (4.8-10.8) K/uL RBC 3.99 (3.80-5.20) Mil/uL Hgb 10.2 L D (11.0-16.0) g/dL Hct 33.0 L (34.0-47.0) % MCV 82.6 (81.0-99.0) fL MCH 25.4 L (27.0-31.0) pg MCHC 30.8 L (33.0-37.0) g/dL RDW 26.2 H (11.5-14.5) % Plt Count 157 (130-400) K/uL MPV 8.8 (7.2-11.7) fL Neut % (Auto) 81.0 H (50.0-75.0) % Lymph % (Auto) 9.5 L (20.0-40.0) % Boundary % (Auto) 8.5 (0.0-10.0) % Eos % (Auto) 0.4 (0.0-4.0) % Baso % (Auto) 0.6 (0.0-2.0) % Neut # (Auto) 6.3 (1.8-7.0) K/uL Lymph # (Auto) 0.7 L (1.0-4.3) K/uL Boundary # (Auto) 0.7 (0.0-0.8) K/uL Eos # (Auto) 0.0 (0.0-0.7) K/uL Baso # (Auto) 0.0 (0.0-0.2) K/uL Neutrophils % (Manual) 83 H (50-75) % Lymphocytes % (Manual) 11 L (20-40) % Monocytes % (Manual) 6 (0-10) % Platelet Estimate Normal (NORMAL) Large Platelets Present Hypochromasia (manual) Slight Poikilocytosis (manual Slight Anisocytosis (manual) Slight Microcytosis (manual) Slight Target Cells Slight Tear Drop Cells Slight Ovalocytes Slight Puncture Site Rr pCO2 45 (35-45) mm/Hg pO2 150 H (80-100) mm/Hg HCO3 34.6 H (21-28) mmol/L ABG pH 7.52 H (7.35-7.45) ABG Total CO2 38.1 H (22-28) mmol/L ABG O2 Saturation 99.7 H (95-98) % ABG Base Excess 12.3 H (-2.0-3.0) mmol/L Pawel Test Pos ABG Potassium 2.9 L (3.6-5.2) mmol/L A-a O2 Difference 507.0 mm/Hg Respiratory Index 3.4 Sodium 140 144.0 (132-148) mmol/l Chloride 99 107.0 (98-107) mmol/L Glucose 76 (65-105) mg/dl Lactate 1.0 (0.7-2.1) mmol/L Vent Mode Prvc Mechanical Rate 16 FiO2 100.0 % Tidal Volume 450 PEEP 5 Inspiratory BiPAP Expiratory BiPAP Potassium 3.1 L (3.6-5.2) mmol/L Carbon Dioxide 40 H* (22-30) mmol/L Anion Gap 4 L (10-20) BUN 50 H (7-17) mg/dL Creatinine 0.7 (0.7-1.2) mg/dL Est GFR ( Amer) > 60 Est GFR (Non-Af Amer) > 60 Random Glucose 72 (65-105) mg/dL Calcium 8.1 L (8.6-10.4) mg/dl Phosphorus 2.3 L (2.5-4.5) mg/dL Magnesium 2.0 (1.6-2.3) mg/dL Total Bilirubin 1.6 H (0.2-1.3) mg/dL AST 27 (14-36) U/L ALT 31 (9-52) U/L Alkaline Phosphatase 53 (38-126) U/L Total Protein 4.6 L (6.3-8.3) g/dL Albumin 2.3 L D (3.5-5.0) g/dL Globulin 2.4 (2.2-3.9) gm/dL Albumin/Globulin Ratio 0.9 L (1.0-2.1) Arterial Blood Potassium 2.9 L (3.6-5.2) mmol/L 03/23/18 03/23/18 Range/Units 17:50 17:00 WBC (4.8-10.8) K/uL RBC (3.80-5.20) Mil/uL Hgb (11.0-16.0) g/dL Hct (34.0-47.0) % MCV (81.0-99.0) fL MCH (27.0-31.0) pg MCHC (33.0-37.0) g/dL RDW (11.5-14.5) % Plt Count (130-400) K/uL MPV (7.2-11.7) fL Neut % (Auto) (50.0-75.0) % Lymph % (Auto) (20.0-40.0) % Boundary % (Auto) (0.0-10.0) % Eos % (Auto) (0.0-4.0) % Baso % (Auto) (0.0-2.0) % Neut # (Auto) (1.8-7.0) K/uL Lymph # (Auto) (1.0-4.3) K/uL Boundary # (Auto) (0.0-0.8) K/uL Eos # (Auto) (0.0-0.7) K/uL Baso # (Auto) (0.0-0.2) K/uL Neutrophils % (Manual) (50-75) % Lymphocytes % (Manual) (20-40) % Monocytes % (Manual) (0-10) % Platelet Estimate (NORMAL) Large Platelets Hypochromasia (manual) Poikilocytosis (manual Anisocytosis (manual) Microcytosis (manual) Target Cells Tear Drop Cells Ovalocytes Puncture Site Rradial Rradial pCO2 62 H 70 H (35-45) mm/Hg pO2 60 L 120 H (80-100) mm/Hg HCO3 34.1 H 33.5 H (21-28) mmol/L ABG pH 7.41 7.36 (7.35-7.45) ABG Total CO2 41.2 H 41.6 H (22-28) mmol/L ABG O2 Saturation 94.0 L 99.1 H (95-98) % ABG Base Excess 12.0 H 11.0 H (-2.0-3.0) mmol/L Pawel Test Pos Pos ABG Potassium 3.7 3.3 L (3.6-5.2) mmol/L A-a O2 Difference 576.0 292.0 mm/Hg Respiratory Index 9.6 2.4 Sodium 143.0 144.0 (132-148) mmol/l Chloride 105.0 108.0 H (98-107) mmol/L Glucose 97 91 (65-105) mg/dl Lactate 1.5 1.0 (0.7-2.1) mmol/L Vent Mode Mechanical Rate 16 FiO2 100.0 70.0 % Tidal Volume 450 PEEP 5 Inspiratory BiPAP 18 Expiratory BiPAP 9 Potassium (3.6-5.2) mmol/L Carbon Dioxide (22-30) mmol/L Anion Gap (10-20) BUN (7-17) mg/dL Creatinine (0.7-1.2) mg/dL Est GFR ( Amer) Est GFR (Non-Af Amer) Random Glucose (65-105) mg/dL Calcium (8.6-10.4) mg/dl Phosphorus (2.5-4.5) mg/dL Magnesium (1.6-2.3) mg/dL Total Bilirubin (0.2-1.3) mg/dL AST (14-36) U/L ALT (9-52) U/L Alkaline Phosphatase (38-126) U/L Total Protein (6.3-8.3) g/dL Albumin (3.5-5.0) g/dL Globulin (2.2-3.9) gm/dL Albumin/Globulin Ratio (1.0-2.1) Arterial Blood Potassium 3.7 3.3 L (3.6-5.2) mmol/L Laboratory Results - last 24 hr 03/23/18 03/23/18 03/24/18 17:00 17:50 04:55 WBC RBC Hgb Hct MCV MCH MCHC RDW Plt Count MPV Neut % (Auto) Lymph % (Auto) Boundary % (Auto) Eos % (Auto) Baso % (Auto) Neut # (Auto) Lymph # (Auto) Boundary # (Auto) Eos # (Auto) Baso # (Auto) Neutrophils % (Manual) Lymphocytes % (Manual) Monocytes % (Manual) Platelet Estimate Large Platelets Hypochromasia (manual) Poikilocytosis (manual Anisocytosis (manual) Microcytosis (manual) Target Cells Tear Drop Cells Ovalocytes Puncture Site Rradial Rradial Rr pCO2 70 H 62 H 45 pO2 120 H 60 L 150 H HCO3 33.5 H 34.1 H 34.6 H ABG pH 7.36 7.41 7.52 H ABG Total CO2 41.6 H 41.2 H 38.1 H ABG O2 Saturation 99.1 H 94.0 L 99.7 H ABG Base Excess 11.0 H 12.0 H 12.3 H Pawel Test Pos Pos Pos ABG Potassium 3.3 L 3.7 2.9 L A-a O2 Difference 292.0 576.0 507.0 Respiratory Index 2.4 9.6 3.4 Sodium 144.0 143.0 144.0 Chloride 108.0 H 105.0 107.0 Glucose 91 97 76 Lactate 1.0 1.5 1.0 Vent Mode Prvc Mechanical Rate 16 16 FiO2 70.0 100.0 100.0 Tidal Volume 450 450 PEEP 5 5 Inspiratory BiPAP 18 Expiratory BiPAP 9 Potassium Carbon Dioxide Anion Gap BUN Creatinine Est GFR ( Amer) Est GFR (Non-Af Amer) Random Glucose Calcium Phosphorus Magnesium Total Bilirubin AST ALT Alkaline Phosphatase Total Protein Albumin Globulin Albumin/Globulin Ratio Arterial Blood Potassium 3.3 L 3.7 2.9 L 03/24/18 03/24/18 05:35 05:37 WBC 7.8 RBC 3.99 Hgb 10.2 L D Hct 33.0 L MCV 82.6 MCH 25.4 L MCHC 30.8 L RDW 26.2 H Plt Count 157 MPV 8.8 Neut % (Auto) 81.0 H Lymph % (Auto) 9.5 L Boundary % (Auto) 8.5 Eos % (Auto) 0.4 Baso % (Auto) 0.6 Neut # (Auto) 6.3 Lymph # (Auto) 0.7 L Boundary # (Auto) 0.7 Eos # (Auto) 0.0 Baso # (Auto) 0.0 Neutrophils % (Manual) 83 H Lymphocytes % (Manual) 11 L Monocytes % (Manual) 6 Platelet Estimate Normal Large Platelets Present Hypochromasia (manual) Slight Poikilocytosis (manual Slight Anisocytosis (manual) Slight Microcytosis (manual) Slight Target Cells Slight Tear Drop Cells Slight Ovalocytes Slight Puncture Site pCO2 pO2 HCO3 ABG pH ABG Total CO2 ABG O2 Saturation ABG Base Excess Pawel Test ABG Potassium A-a O2 Difference Respiratory Index Sodium 140 Chloride 99 Glucose Lactate Vent Mode Mechanical Rate FiO2 Tidal Volume PEEP Inspiratory BiPAP Expiratory BiPAP Potassium 3.1 L Carbon Dioxide 40 H* Anion Gap 4 L BUN 50 H Creatinine 0.7 Est GFR ( Amer) > 60 Est GFR (Non-Af Amer) > 60 Random Glucose 72 Calcium 8.1 L Phosphorus 2.3 L Magnesium 2.0 Total Bilirubin 1.6 H AST 27 ALT 31 Alkaline Phosphatase 53 Total Protein 4.6 L Albumin 2.3 L D Globulin 2.4 Albumin/Globulin Ratio 0.9 L Arterial Blood Potassium Radiology Impressions: Radiology Impressions Head CT 03/23/18 09:06 IMPRESSION: Markedly limited study due to patient motion and streak artifact, especially skull base. Moderate nonspecific white matter changes. 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 Partial opacification of the left mastoid air cells; correlate for mastoiditis. Chest CT 03/23/18 10:59 Impression: No large central or segmental pulmonary embolus identified. Large bilateral pleural effusions and consolidations bilaterally. Additional regions of confluent and patchy multifocal opacities may reflect edema or pneumonia. Cholelithiasis. Chest X-Ray 03/23/18 17:22 IMPRESSION: Endotracheal tube terminates approximately 4.3 cm above the fareed. Nasogastric tube extends beyond the hemidiaphragm towards expected location of the stomach. Cardiomegaly. Evidence of right greater than left interstitial edema or infection throughout the left hemithorax. Small to moderate left pleural effusion and/or consolidation. Moderate to large right pleural effusion and/or consolidation. Chest X-Ray 03/24/18 07:00 IMPRESSION: Interval improved aeration in the lungs with residual pulmonary edema and effusions. Results Reviewed to Date: Yes Review of Systems - Review of Systems Systems not reviewed;Unavailable: Intubated Critical Care Progress Note - Ventilator Checklist Head of Bed 30 Degrees: Yes Daily Sedation Vacation: Yes Daily Assessment of Readiness to Wean: Yes Daily Spontaneous Breathing Trial: Yes PUD Prophalyxis: Yes DVT Prophylaxis: Yes Oral Care with Chlorhexidine Gluconate {CHG}: Yes - Vent Settings MODE:: PRVC TIDAL VOLUME:: 400 RESP RATE:: 12 FIO2:: 80 PEEP:: 5 - Extremities/Vascular Does the Patient have a Central Venous Catheter?: No Does the Patient need a Central Venous Catheter?: Yes (will place today) Does the Patient have a [place] Catheter?: Yes Does the Patient need a [place] Catheter?: Yes Catheter Insertion Criteria: Need for accurate measurement of output in critically ill patient - Prophylaxis GI Prophylaxis GI: PPI - Nutrition Nutrition: Nutrition Category Date Time Status Heart Healthy Diet [DIET] Diets 03/23/18 Dinner Active Assessment/Plan - Assessment and Plan (Free Text) Assessment: Patient is a 82 yo female w/ PMH of CHF, HTN, Afib on AC, and hx of pleural effusions admitted to hospital for bilateral pleural effusions with overlying PNA. Patient was intubated after patient began to respond to only painful stimu li with GCS of 6. Patient is hypotensive and levophed was started with plans for central line and thoracentesis. Patient on Eliquis so procedure is delayed a bit to decrease bleeding risk. Neuro: Alert, Awake, Responsive to verbal and tactile stimuli Pulm: Intubated; On precedex drip; Cxray shows bilateral pulmonary edema and effusions; Duoneb; Plan for thoracentesis Cardio: Hypotensive: Levophed drip; Plan for central line once bleeding risk decreases 2/2 Eliquis Hx of Afib: Eliquis 5mg po bid camilla; Amiodarone 200mg po daily; Verapamil 40mg po q8h camilla Hx of CHF: Aldactone 25mg q 2 d; Lasix as needed GI: NPO; No acute issues; Protonix 40mg IV daily Endo: No acute issues Renal: NS @ 100mls/hr Derm: Chronic bilateral foot ulcers- Podiatry on board; Sacral ulcer stage 3- Wound care consulted ID: Consolidations on chest CT concerning for PNA; Currently Afebrile with no elevated WBCs; Tylenol 650mg po q6 prn; Vanc/Zosyn GI PPX: Protonix 40mg IV daily DVT PPX: Eliquis 5mg po bid camilla NPO <Zaheer Amador S - Last Filed: 03/24/18 17:21> CCU Objective - Vital Signs / Intake & Output Intake and Output (Last 8hrs): Intake & Output 03/24/18 03/24/18 03/24/18 06:59 14:59 22:59 Intake Total 907.475 879.2 113.8 Output Total 430 400 Balance 477.475 479.2 113.8 Weight 216 lb 6.4 oz Intake: IV 37.475 4 Intake, IV Amount 870.0 875.2 113.8 Right Forearm 850 800 100 Right Hand 55.2 11.3 right FA #2 20.0 20.0 2.5 Output: Urine 430 400 Urethral ([place]) 430 400 Other: # Bowel Movements 1 1 - Medications Active Medications: Active Medications Generic Name Dose Route Start Last Admin Trade Name Freq PRN Reason Stop Dose Admin Acetaminophen 650 mg 03/23/18 15:59 Tylenol 325mg Tab PO Q6 PRN Fever >100.4 F Albuterol/Ipratropium 3 ml 03/23/18 20:00 03/24/18 16:00 Duoneb 3 Mg/0.5 Mg (3 Ml) Ud INH 3 ml RQ4 [place] Administration Amiodarone HCl 200 mg 03/23/18 16:45 03/24/18 13:07 Cordarone PO 200 mg DAILY CAM[place]A Administration Apixaban 5 mg 03/23/18 18:00 03/24/18 10:09 Eliquis PO 5 mg BID CAMILLA Administration Piperacillin Sod/Tazobactam Sod 3.375 gm in 50 mls @ 100 mls/hr 03/23/18 17:00 03/24/18 09:26 Zosyn 3.375 Gm Iv Premix IVPB 100 mls/hr Q8H [place] Administration Protocol Sodium Chloride 1,000 mls @ 100 mls/hr 03/23/18 17:00 03/24/18 13:05 Sodium Chloride 0.9% IV Not Given .Q10H [place] Vancomycin/Sodium Chloride 1 gm in 200 mls @ 133 mls/hr 03/24/18 00:30 03/24/18 13:36 Vancomycin 1 Gm/Ns 200 Ml IVPB 03/29/18 00:31 133 mls/hr Q12H [place]A Administration Protocol Dexmedetomidine HCl 200 mcg/ 50 mls @ 5.01 mls/hr 03/23/18 17:51 03/24/18 06:05 Sodium Chloride IV 0.1 mcg/kg/hr TITR PRN 2.51 mls/hr Intubation Administration Protocol 0.2 MCG/KG/HR Norepinephrine Bitartrate 4 mg 254 mls @ 15.24 mls/hr 03/24/18 10:20 03/24/18 11:00 / Sodium Chloride IV 3 mcg/min .[id number] PRN 11.43 mls/hr TITRATE PER MD ORDER Titration Protocol 4 MCG/MIN Nystatin 1 applic 03/23/18 18:00 03/24/18 10:10 Nystop Topical Powder TOP 1 applic BID CAM[place]A Administration Pantoprazole Sodium 40 mg 03/23/18 17:30 03/24/18 10:09 Protonix Inj IVP 40 mg DAILY [place]A Administration Propofol 5 mg 03/24/18 17:00 Diprivan IV 03/24/18 17:01 ONCE ONE Silver Sulfadiazine 1 ea 03/23/18 16:45 03/24/18 16:56 Silvadene 1% 20 Gm TOP 1 gm Q12H [place] Administration Spironolactone 25 mg 03/24/18 07:00 03/24/18 08:33 Aldactone PO 25 mg Q2D [place] Administration Verapamil HCl 40 mg 03/23/18 16:45 03/24/18 16:53 Calan Tab PO 40 mg Q8H [place]A Administration - Patient Studies Lab Studies: Microbiology Studies 03/24/18 11:45 Gram Stain - Preliminary Trachasp 03/23/18 08:25 Blood Culture - Preliminary Blood NO GROWTH AFTER 24 HOURS 03/23/18 08:00 Blood Culture - Preliminary Blood NO GROWTH AFTER 24 HOURS Lab Studies 03/24/18 03/24/18 03/24/18 Range/Units 05:37 05:35 04:55 WBC 7.8 (4.8-10.8) K/uL RBC 3.99 (3.80-5.20) Mil/uL Hgb 10.2 L D (11.0-16.0) g/dL Hct 33.0 L (34.0-47.0) % MCV 82.6 (81.0-99.0) fL MCH 25.4 L (27.0-31.0) pg MCHC 30.8 L (33.0-37.0) g/dL RDW 26.2 H (11.5-14.5) % Plt Count 157 (130-400) K/uL MPV 8.8 (7.2-11.7) fL Neut % (Auto) 81.0 H (50.0-75.0) % Lymph % (Auto) 9.5 L (20.0-40.0) % Boundary % (Auto) 8.5 (0.0-10.0) % Eos % (Auto) 0.4 (0.0-4.0) % Baso % (Auto) 0.6 (0.0-2.0) % Neut # (Auto) 6.3 (1.8-7.0) K/uL Lymph # (Auto) 0.7 L (1.0-4.3) K/uL Boundary # (Auto) 0.7 (0.0-0.8) K/uL Eos # (Auto) 0.0 (0.0-0.7) K/uL Baso # (Auto) 0.0 (0.0-0.2) K/uL Neutrophils % (Manual) 83 H (50-75) % Lymphocytes % (Manual) 11 L (20-40) % Monocytes % (Manual) 6 (0-10) % Platelet Estimate Normal (NORMAL) Large Platelets Present Hypochromasia (manual) Slight Poikilocytosis (manual Slight Anisocytosis (manual) Slight Microcytosis (manual) Slight Target Cells Slight Tear Drop Cells Slight Ovalocytes Slight Puncture Site Rr pCO2 45 (35-45) mm/Hg pO2 150 H (80-100) mm/Hg HCO3 34.6 H (21-28) mmol/L ABG pH 7.52 H (7.35-7.45) ABG Total CO2 38.1 H (22-28) mmol/L ABG O2 Saturation 99.7 H (95-98) % ABG Base Excess 12.3 H (-2.0-3.0) mmol/L Pawel Test Pos ABG Potassium 2.9 L (3.6-5.2) mmol/L A-a O2 Difference 507.0 mm/Hg Respiratory Index 3.4 Sodium 140 144.0 (132-148) mmol/l Chloride 99 107.0 (98-107) mmol/L Glucose 76 (65-105) mg/dl Lactate 1.0 (0.7-2.1) mmol/L Vent Mode Prvc Mechanical Rate 16 FiO2 100.0 % Tidal Volume 450 PEEP 5 Potassium 3.1 L (3.6-5.2) mmol/L Carbon Dioxide 40 H* (22-30) mmol/L Anion Gap 4 L (10-20) BUN 50 H (7-17) mg/dL Creatinine 0.7 (0.7-1.2) mg/dL Est GFR ( Amer) > 60 Est GFR (Non-Af Amer) > 60 Random Glucose 72 (65-105) mg/dL Calcium 8.1 L (8.6-10.4) mg/dl Phosphorus 2.3 L (2.5-4.5) mg/dL Magnesium 2.0 (1.6-2.3) mg/dL Total Bilirubin 1.6 H (0.2-1.3) mg/dL AST 27 (14-36) U/L ALT 31 (9-52) U/L Alkaline Phosphatase 53 (38-126) U/L Total Protein 4.6 L (6.3-8.3) g/dL Albumin 2.3 L D (3.5-5.0) g/dL Globulin 2.4 (2.2-3.9) gm/dL Albumin/Globulin Ratio 0.9 L (1.0-2.1) Arterial Blood Potassium 2.9 L (3.6-5.2) mmol/L 18 Range/Units 17:50 WBC (4.8-10.8) K/uL RBC (3.80-5.20) Mil/uL Hgb (11.0-16.0) g/dL Hct (34.0-47.0) % MCV (81.0-99.0) fL MCH (27.0-31.0) pg MCHC (33.0-37.0) g/dL RDW (11.5-14.5) % Plt Count (130-400) K/uL MPV (7.2-11.7) fL Neut % (Auto) (50.0-75.0) % Lymph % (Auto) (20.0-40.0) % Boundary % (Auto) (0.0-10.0) % Eos % (Auto) (0.0-4.0) % Baso % (Auto) (0.0-2.0) % Neut # (Auto) (1.8-7.0) K/uL Lymph # (Auto) (1.0-4.3) K/uL Boundary # (Auto) (0.0-0.8) K/uL Eos # (Auto) (0.0-0.7) K/uL Baso # (Auto) (0.0-0.2) K/uL Neutrophils % (Manual) (50-75) % Lymphocytes % (Manual) (20-40) % Monocytes % (Manual) (0-10) % Platelet Estimate (NORMAL) Large Platelets Hypochromasia (manual) Poikilocytosis (manual Anisocytosis (manual) Microcytosis (manual) Target Cells Tear Drop Cells Ovalocytes Puncture Site Rradial pCO2 62 H (35-45) mm/Hg pO2 60 L (80-100) mm/Hg HCO3 34.1 H (21-28) mmol/L ABG pH 7.41 (7.35-7.45) ABG Total CO2 41.2 H (22-28) mmol/L ABG O2 Saturation 94.0 L (95-98) % ABG Base Excess 12.0 H (-2.0-3.0) mmol/L Pawel Test Pos ABG Potassium 3.7 (3.6-5.2) mmol/L A-a O2 Difference 576.0 mm/Hg Respiratory Index 9.6 Sodium 143.0 (132-148) mmol/l Chloride 105.0 (98-107) mmol/L Glucose 97 (65-105) mg/dl Lactate 1.5 (0.7-2.1) mmol/L Vent Mode Mechanical Rate 16 FiO2 100.0 % Tidal Volume 450 PEEP 5 Potassium (3.6-5.2) mmol/L Carbon Dioxide (22-30) mmol/L Anion Gap (10-20) BUN (7-17) mg/dL Creatinine (0.7-1.2) mg/dL Est GFR ( Amer) Est GFR (Non-Af Amer) Random Glucose (65-105) mg/dL Calcium (8.6-10.4) mg/dl Phosphorus (2.5-4.5) mg/dL Magnesium (1.6-2.3) mg/dL Total Bilirubin (0.2-1.3) mg/dL AST (14-36) U/L ALT (9-52) U/L Alkaline Phosphatase (38-126) U/L Total Protein (6.3-8.3) g/dL Albumin (3.5-5.0) g/dL Globulin (2.2-3.9) gm/dL Albumin/Globulin Ratio (1.0-2.1) Arterial Blood Potassium 3.7 (3.6-5.2) mmol/L Laboratory Results - last 24 hr 03/23/18 03/24/18 03/24/18 17:50 04:55 05:35 WBC RBC Hgb Hct MCV MCH MCHC RDW Plt Count MPV Neut % (Auto) Lymph % (Auto) Boundary % (Auto) Eos % (Auto) Baso % (Auto) Neut # (Auto) Lymph # (Auto) Boundary # (Auto) Eos # (Auto) Baso # (Auto) Neutrophils % (Manual) Lymphocytes % (Manual) Monocytes % (Manual) Platelet Estimate Large Platelets Hypochromasia (manual) Poikilocytosis (manual Anisocytosis (manual) Microcytosis (manual) Target Cells Tear Drop Cells Ovalocytes Puncture Site Rradial Rr pCO2 62 H 45 pO2 60 L 150 H HCO3 34.1 H 34.6 H ABG pH 7.41 7.52 H ABG Total CO2 41.2 H 38.1 H ABG O2 Saturation 94.0 L 99.7 H ABG Base Excess 12.0 H 12.3 H Pawel Test Pos Pos ABG Potassium 3.7 2.9 L A-a O2 Difference 576.0 507.0 Respiratory Index 9.6 3.4 Sodium 143.0 144.0 140 Chloride 105.0 107.0 99 Glucose 97 76 Lactate 1.5 1.0 Vent Mode Prvc Mechanical Rate 16 16 FiO2 100.0 100.0 Tidal Volume 450 450 PEEP 5 5 Potassium 3.1 L Carbon Dioxide 40 H* Anion Gap 4 L BUN 50 H Creatinine 0.7 Est GFR ( Amer) > 60 Est GFR (Non-Af Amer) > 60 Random Glucose 72 Calcium 8.1 L Phosphorus 2.3 L Magnesium 2.0 Total Bilirubin 1.6 H AST 27 ALT 31 Alkaline Phosphatase 53 Total Protein 4.6 L Albumin 2.3 L D Globulin 2.4 Albumin/Globulin Ratio 0.9 L Arterial Blood Potassium 3.7 2.9 L 03/24/18 05:37 WBC 7.8 RBC 3.99 Hgb 10.2 L D Hct 33.0 L MCV 82.6 MCH 25.4 L MCHC 30.8 L RDW 26.2 H Plt Count 157 MPV 8.8 Neut % (Auto) 81.0 H Lymph % (Auto) 9.5 L Boundary % (Auto) 8.5 Eos % (Auto) 0.4 Baso % (Auto) 0.6 Neut # (Auto) 6.3 Lymph # (Auto) 0.7 L Boundary # (Auto) 0.7 Eos # (Auto) 0.0 Baso # (Auto) 0.0 Neutrophils % (Manual) 83 H Lymphocytes % (Manual) 11 L Monocytes % (Manual) 6 Platelet Estimate Normal Large Platelets Present Hypochromasia (manual) Slight Poikilocytosis (manual Slight Anisocytosis (manual) Slight Microcytosis (manual) Slight Target Cells Slight Tear Drop Cells Slight Ovalocytes Slight Puncture Site pCO2 pO2 HCO3 ABG pH ABG Total CO2 ABG O2 Saturation ABG Base Excess Pawel Test ABG Potassium A-a O2 Difference Respiratory Index Sodium Chloride Glucose Lactate Vent Mode Mechanical Rate FiO2 Tidal Volume PEEP Potassium Carbon Dioxide Anion Gap BUN Creatinine Est GFR ( Amer) Est GFR (Non-Af Amer) Random Glucose Calcium Phosphorus Magnesium Total Bilirubin AST ALT Alkaline Phosphatase Total Protein Albumin Globulin Albumin/Globulin Ratio Arterial Blood Potassium Radiology Impressions: Radiology Impressions Chest X-Ray 03/23/18 17:22 IMPRESSION: Endotracheal tube terminates approximately 4.3 cm above the fareed. Nasogastric tube extends beyond the hemidiaphragm towards expected location of the stomach. Cardiomegaly. Evidence of right greater than left interstitial edema or infection throughout the left hemithorax. Small to moderate left pleural effusion and/or consolidation. Moderate to large right pleural effusion and/or consolidation. Chest X-Ray 03/24/18 07:00 IMPRESSION: Interval improved aeration in the lungs with residual pulmonary edema and effusions. Critical Care Progress Note - Nutrition Nutrition: Nutrition Category Date Time Status NPO Diet [DIET] Diets 03/24/18 Breakfast Active Attending/Attestation - Attestation I have personally seen and examined this patient.: Yes I have fully participated in the care of the patient.: Yes I have reviewed all pertinent clinical information: Yes Notes (Text): 03/24/18 17:17 patient seen and examined in the intensive care unit. Patient remains intubated on ventilatory support Sedated on Precedex Hypotensive and started on Levophed drip Thoracentesis/chest tube was cancelled as patient on eliquis. continue IV antibiotics Start feeding IV fluids DVT and stress ulcer prophylaxis
--- NOTE | 2018-03-24 17:23 | PCM.PROC ---
Procedures Attestation:: I certify that I have explained the specified Operation(s) or Procedure(s), risks, benefits and reasonable alternatives to the Patient and/or other person responsible. The opportunity was given to ask questions and all questions answered - Central Line Placement Left Internal Jugular Triple Lumen Catheter Aseptic technique was employed throughout the procedure: Hand Hygiene done prior to procedure, Full sterile barriers (mask, hair cover, sterile gown, sterile g loves), Full body sterile drape, Chloraprep Antiseptic: 30 second prep for IJ or SC sites CVP Time Out Performed: Yes Pt. Placed on Pulse Ox Monitor: Yes Central Line Prep: Chlorhexidine-Alcohol Combination Local Anesthesia Used: Lidocaine 1% Amount of Anesthesia Used (mls): 3 Ultrasound Used for Placement: Yes Central Line Lumen Inserted: triple Central Line Length: 16 cm Post Procedure: Sutured in Place, Good Blood Return, All Ports Aspirated, Flushed, Capped, Sterile Dressing Applied Secured by: Suture Post procedure dressing: Chlorhexidine disc (Biopatch)
[2018-03-25] MEDS: Albuterol-Ipratrop 3 mg / 0.5 (3 ml) UD INH SCH ×6 (00:15→19:53)
[2018-03-25] MEDS: Piperacill/Tazo 3.375gm in Dex 3.375 GM/50 ML BAG IVPB SCH ×3 (01:02→17:09)
[2018-03-25] MEDS: Dexmedetomidine Hydrochloride 200 MCG in Sodium Chloride 0.9% 48 ML IV PRN ×6 (01:02→21:00)
[2018-03-25] MEDS: Sodium Chloride 0.9% 1,000 ML IV SCH ×3 (02:22→21:34)
[2018-03-25] MEDS: Silver Sulfadiazine 1% Cream (20 gm) TOP SCH ×2 (04:57→17:09)
[2018-03-25 06:00] LABS: ABG ALLEN TEST POS; ARTERIAL BLOOD GAS HCO3 31.9 mmol/L (21-28); ARTERIAL BLOOD GAS PCO2 33 mm/Hg (35-45); ARTERIAL BLOOD GAS PH 7.58 (7.35-7.45); ARTERIAL BLOOD GAS PO2 102 mm/Hg (80-100); ARTERIAL BLOOD GAS TCO2 31.9 mmol/L (22-28)
[2018-03-25 06:20] LABS: BASO # 0.1 K/uL (0.0-0.2); BASO % 1.2 % (0.0-2.0); EOS % 0.6 % (0.0-4.0); HEMOGLOBIN 10.7 g/dL (11.0-16.0); LYMPH # 0.6 K/uL (1.0-4.3); MEAN CELL VOLUME 82.3 fL (81.0-99.0); MEAN CORPUSCULAR HEMOGLOBIN 25.6 pg (27.0-31.0); MEAN CORPUSCULAR HGB CONC 31.1 g/dL (33.0-37.0); MEAN PLATELET VOLUME 8.5 fL (7.2-11.7); MONO # 0.5 K/uL (0.0-0.8); MONO % 5.9 % (0.0-10.0); NEUT # 6.5 K/uL (1.8-7.0); NEUT % 84.3 % (50.0-75.0); PLATELET COUNT 156 K/uL (130-400); RBC 4.18 Mil/uL (3.80-5.20); RED CELL DISTRIBUTION WIDTH 26.5 % (11.5-14.5); WHITE BLOOD COUNT 7.7 K/uL (4.8-10.8)
[2018-03-25 06:34] LABS: ALB/GLOB RATIO 0.9 (1.0-2.1); ALBUMIN 2.3 g/dL (3.5-5.0); ALT/SGPT 29 U/L (9-52); AST/SGOT 24 U/L (14-36); BLOOD UREA NITROGEN 38 mg/dL (7-17); CALCIUM 7.9 mg/dl (8.6-10.4); GFR NON-AFRICAN AMERICAN > 60
[2018-03-25] MEDS ORDERED: Potassium Phosphate 15 MMOLE in Sodium Chloride 0.9% 250 ML IVPB ONE (08:00)
--- NOTE | 2018-03-25 08:16 | CP.PCM.CON ---
History of Present Illness - History of Present Illness History of Present Illness: Podiatry - Dr. Shah 82 year old female patient seen and evaluated at bedside for RLE wounds. Patient is well known to Dr. Shah's service. Daughter present at bedside. Patient admitted from [facility] 2/2 respiratory distress. Patient lethargic but responsive. At present, patient denies any lower extremity complaints; patient states wounds are being treated by wound care nurses at detention. Review of Systems - Review of Systems All systems: reviewed and no additional remarkable complaints except (as per HPI) Past Patient History - Infectious Disease Hx of Infectious Diseases: None - Tetanus Immunizations Tetanus Immunization: Unknown - Past Medical History & Family History Past Medical History?: Yes - Past Social History Smoking Status: Never Smoked - CARDIAC Hx Atrial Fibrillation: Yes Hx Congestive Heart Failure: Yes - PULMONARY Hx Chronic Obstructive Pulmonary Disease (COPD): Yes - NEUROLOGICAL Hx Dementia: Yes - ENDOCRINE/METABOLIC Hx Endocrine Disorders: No - HEMATOLOGICAL/ONCOLOGICAL Hx Blood Disorders: No - INTEGUMENTARY Other/Comment: weeping edema, on bilateral lower ext - MUSCULOSKELETAL/RHEUMATOLOGICAL Hx Falls: Yes - GASTROINTESTINAL Hx Gastrointestinal Disorders: No - GENITOURINARY/GYNECOLOGICAL Hx Genitourinary Disorders: No - PSYCHIATRIC Hx Substance Use: No - SURGICAL HISTORY Hx Surgeries: No - ANESTHESIA Hx Anesthesia: Yes Meds Allergies/Adverse Reactions: Allergies Allergy/AdvReac Type Severity Reaction Status Date / Time warfarin [From Coumadin] Allergy Verified 03/23/18 08:16 - Medications Medications: Current Medications Acetaminophen (Tylenol 325mg Tab) 650 mg PO Q6 PRN PRN Reason: Fever >100.4 F Albuterol/Ipratropium (Duoneb 3 Mg/0.5 Mg (3 Ml) Ud) 3 ml INH RQ4 [facility] Last Admin: 03/25/18 07:57 Dose: 3 ml Amiodarone HCl (Cordarone) 200 mg PO DAILY [facility] Last Admin: 03/24/18 13:07 Dose: 200 mg Apixaban (Eliquis) 5 mg PO BID [facility] Last Admin: 03/24/18 18:27 Dose: 5 mg Piperacillin Sod/Tazobactam Sod (Zosyn 3.375 Gm Iv Premix) 3.375 gm in 50 mls @ 100 mls/hr IVPB Q8H [facility]; Protocol Last Admin: 03/25/18 01:02 Dose: 100 mls/hr Sodium Chloride (Sodium Chloride 0.9%) 1,000 mls @ 100 mls/hr IV .Q10H [facility] Last Admin: 03/25/18 02:22 Dose: 100 mls/hr Vancomycin/Sodium Chloride (Vancomycin 1 Gm/Ns 200 Ml) 1 gm in 200 mls @ 133 mls/hr IVPB Q12H [facility]; Protocol Stop: 03/29/18 00:31 Last Admin: 03/24/18 23:48 Dose: 133 mls/hr Dexmedetomidine HCl 200 mcg/ (Sodium Chloride) 50 mls @ 5.01 mls/hr IV TITR PRN; Protocol PRN Reason: Intubation Last Admin: 03/25/18 06:00 Dose: 0.39 mcg/kg/hr, 10 mls/hr Norepinephrine Bitartrate 4 mg (/ Sodium Chloride) 254 mls @ 15.24 mls/hr IV .[id number] PRN; Protocol PRN Reason: TITRATE PER MD ORDER Last Titration: 03/25/18 02:20 Dose: 0 mcg/min, 0 mls/hr Potassium Phosphate 15 mmole/ (Sodium Chloride) 255 mls @ 42.5 mls/hr IVPB ONCE ONE Stop: 03/25/18 13:59 Nystatin (Nystop Topical Powder) 1 applic TOP BID [facility] Last Admin: 03/24/18 18:28 Dose: 1 applic Pantoprazole Sodium (Protonix Inj) 40 mg IVP DAILY [facility] Last Admin: 03/24/18 10:09 Dose: 40 mg Silver Sulfadiazine (Silvadene 1% 20 Gm) 1 ea TOP Q12H [facility] Last Admin: 03/25/18 04:57 Dose: 1 gm Spironolactone (Aldactone) 25 mg PO Q2D [facility] Last Admin: 03/24/18 08:33 Dose: 25 mg Verapamil HCl (Calan Tab) 40 mg PO Q8H [facility] Last Admin: 03/24/18 23:47 Dose: 40 mg Physical Exam - Constitutional Appears: Non-toxic, No Acute Distress - Extremities Exam Additional comments: VASC: pulses are palpable b/l, Temp gradient warm to warm from proximal to distal, Cap refill time: <3 secs x 10, no edema or erythema noted to bilateral lower extremities, edema appears to be resolving at this time DERM: dry, flaky, hyperkeratotic skin noted to b/l LE distal to the knee joint, open wound noted to the psoterior aspect of the proximal 1/3rd of the leg measuring approximately 2.5 cm x 2.5cm with a granular base, active seros anguinous drinage noted, no malodor, no tracking or tunneling noted. Left leg: multiple superficial scabs noted to the proximal 1/3rd of the leg,no drainage, no malodor, no erythema or edema NEURO: Gross sensation intact b/l ORTHO: No tenderness to palpation noted to lower extremity b/l - Neurological Exam Neurological exam: Alert - Psychiatric Exam Psychiatric exam: Normal Affect, Normal Mood Results - Vital Signs Recent Vital Signs: Last Vital Signs Temp 98.8 F 03/25/18 04:00 Pulse 68 03/25/18 06:50 Resp 17 03/25/18 06:50 BP 115/77 03/25/18 06:46 Pulse Ox 100 03/25/18 06:50 - Labs Result Diagrams: 03/25/18 04:00 03/25/18 06:09 Labs: Laboratory Results - last 24 hr 03/24/18 03/25/18 03/25/18 05:37 04:00 05:31 WBC 7.7 RBC 4.18 Hgb 10.7 L Hct 34.4 MCV 82.3 MCH 25.6 L MCHC 31.1 L RDW 26.5 H Plt Count 156 MPV 8.5 Neut % (Auto) 84.3 H Lymph % (Auto) 8.0 L Jennings % (Auto) 5.9 Eos % (Auto) 0.6 Baso % (Auto) 1.2 Neut # (Auto) 6.5 Lymph # (Auto) 0.6 L Jennings # (Auto) 0.5 Eos # (Auto) 0.0 Baso # (Auto) 0.1 Neutrophils % (Manual) 83 H Lymphocytes % (Manual) 11 L Monocytes % (Manual) 6 Platelet Estimate Normal Large Platelets Present Hypochromasia (manual) Slight Poikilocytosis (manual Slight Anisocytosis (manual) Slight Microcytosis (manual) Slight Target Cells Slight Tear Drop Cells Slight Ovalocytes Slight Puncture Site Rr pCO2 33 L pO2 102 H HCO3 31.9 H ABG pH 7.58 H ABG Total CO2 31.9 H ABG O2 Saturation 99.0 H ABG Base Excess 8.9 H Pawel Test Pos ABG Potassium 2.9 L A-a O2 Difference 427.0 Respiratory Index 4.2 Sodium 145.0 Chloride 110.0 H Glucose 103 Lactate 1.3 Vent Mode Prvc Mechanical Rate 16 FiO2 80.0 Tidal Volume 450 PEEP 5 Potassium Carbon Dioxide Anion Gap BUN Creatinine Est GFR ( Amer) Est GFR (Non-Af Amer) Random Glucose Calcium Phosphorus Magnesium Total Bilirubin AST ALT Alkaline Phosphatase Total Protein Albumin Globulin Albumin/Globulin Ratio Arterial Blood Potassium 2.9 L 03/25/18 06:09 WBC RBC Hgb Hct MCV MCH MCHC RDW Plt Count MPV Neut % (Auto) Lymph % (Auto) Jennings % (Auto) Eos % (Auto) Baso % (Auto) Neut # (Auto) Lymph # (Auto) Jennings # (Auto) Eos # (Auto) Baso # (Auto) Neutrophils % (Manual) Lymphocytes % (Manual) Monocytes % (Manual) Platelet Estimate Large Platelets Hypochromasia (manual) Poikilocytosis (manual Anisocytosis (manual) Microcytosis (manual) Target Cells Tear Drop Cells Ovalocytes Puncture Site pCO2 pO2 HCO3 ABG pH ABG Total CO2 ABG O2 Saturation ABG Base Excess Pawel Test ABG Potassium A-a O2 Difference Respiratory Index Sodium 143 Chloride 104 Glucose Lactate Vent Mode Mechanical Rate FiO2 Tidal Volume PEEP Potassium 3.0 L Carbon Dioxide 32 H Anion Gap 10 BUN 38 H Creatinine 0.7 Est GFR ( Amer) > 60 Est GFR (Non-Af Amer) > 60 Random Glucose 95 D Calcium 7.9 L Phosphorus 2.2 L Magnesium 1.9 Total Bilirubin 2.1 H AST 24 ALT 29 Alkaline Phosphatase 55 Total Protein 4.8 L Albumin 2.3 L Globulin 2.5 Albumin/Globulin Ratio 0.9 L Arterial Blood Potassium Assessment & Plan - Assessment and Plan (Free Text) Assessment: 82 year old female with bilateral venous stasis wounds Plan: Patient seen and evaluated alongside attending, Dr. Alyssa LORENZANA, WBC 7.8 Local wound care: xeroform, DSD Continue multipodus boots at all times in bed Podiatry will continue to follow
[2018-03-25 08:22] LABS: INR 2.3; PROTHROMBIN TIME 25.5 SECONDS (9.7-12.2)
[2018-03-25 08:40] LABS: LYMPHOCYTE 9 % (20-40); MONOCYTE 6 % (0-10); NEUTROPHIL 85 % (50-75); PLATELET ESTIMATE NORMAL (NORMAL); TOTAL CELLS COUNTED 100
[2018-03-25 08:41] LABS: ANISOCYTOSIS SLIGHT; HYPOCHROMIC SLIGHT; MICROCYTOSIS SLIGHT; OVALOCYTES SLIGHT; POIKILOCYTOSIS SLIGHT
[2018-03-25 08:42] LABS: POLYCHROMIC SLIGHT
--- NOTE | 2018-03-25 08:53 | RAD ---
Date of service: 03/24/2018 HISTORY: s/p central line COMPARISON: 03/24/2008 FINDINGS: LUNGS: The left pleural effusion with secondary air compressive atelectasis is similar. Concomitant infiltrate here not excluded. Similar findings at the right lung base noted. Hazy coalescent airspace opacities perihilar right greater than left-underlying of pulmonary edema inferred. Endotracheal tube tip 4.7 cm cephalad to fareed. PLEURA: Bilateral pleural effusions-similar. No pneumothorax. CARDIOVASCULAR: There is presence of aortic atherosclerotic calcification on x-ray. Mild cardiomegaly-similar pulmonary venous congestion/confluent hazy coalescent pulmonary edema pattern greater in the right lung than the left is overall similar in appearance with prior study. Interval insertion left internal jugular vein catheter tip superior vena cava. OSSEOUS STRUCTURES: Thoraco lumbar spondylosis VISUALIZED UPPER ABDOMEN: Nasogastric tube tip in stomach. OTHER FINDINGS: None. IMPRESSION: Interval insertion left internal jugular vein central catheter tip superior vena cava. No pneumothorax seen. Bilateral pleural effusions with the favored bibasilar compressive atelectasis is similar. Overall coalescent airspace opacities compatible with coalescent areas of pulmonary venous congestion/pulmonary edema the greater extent throughout the right lung is similar in appearance with prior study. Endotracheal tube and NG tube positions satisfactory.
--- NOTE | 2018-03-25 09:43 | CP.PCM.PN ---
Subjective - Date & Time of Evaluation Date of Evaluation: 03/25/18 Time of Evaluation: 09:40 - Subjective Subjective: Podiatry Progress Note - Dr. Shah 82 year old female patient seen and evaluated at bedside for RLE wounds. Daughter present at bedside. Patient intubated and sedated. Objective - Vital Signs/Intake and Output Vital Signs (last 24 hours): Temp Pulse Resp BP Pulse Ox 98.8 F 67 16 125/86 100 03/25/18 04:00 03/25/18 09:17 03/25/18 09:17 03/25/18 09:17 03/25/18 09:17 Intake and Output: 03/25/18 03/25/18 06:59 18:59 Intake Total 2134.0 150 Output Total 785 40 Balance 1349.0 110 - Medications Medications: Current Medications Acetaminophen (Tylenol 325mg Tab) 650 mg PO Q6 PRN PRN Reason: Fever >100.4 F Albuterol/Ipratropium (Duoneb 3 Mg/0.5 Mg (3 Ml) Ud) 3 ml INH RQ4 [facility] Last Admin: 03/25/18 07:57 Dose: 3 ml Amiodarone HCl (Cordarone) 200 mg PO DAILY [facility] Last Admin: 03/25/18 09:34 Dose: 200 mg Apixaban (Eliquis) 5 mg PO BID [facility] Last Admin: 03/24/18 18:27 Dose: 5 mg Piperacillin Sod/Tazobactam Sod (Zosyn 3.375 Gm Iv Premix) 3.375 gm in 50 mls @ 100 mls/hr IVPB Q8H [facility]; Protocol Last Admin: 03/25/18 09:34 Dose: 100 mls/hr Sodium Chloride (Sodium Chloride 0.9%) 1,000 mls @ 100 mls/hr IV .Q10H [facility] Last Admin: 03/25/18 02:22 Dose: 100 mls/hr Vancomycin/Sodium Chloride (Vancomycin 1 Gm/Ns 200 Ml) 1 gm in 200 mls @ 133 mls/hr IVPB Q12H [facility]; Protocol Stop: 03/29/18 00:31 Last Admin: 03/24/18 23:48 Dose: 133 mls/hr Dexmedetomidine HCl 200 mcg/ (Sodium Chloride) 50 mls @ 5.01 mls/hr IV TITR PRN; Protocol PRN Reason: Intubation Last Admin: 03/25/18 06:00 Dose: 0.39 mcg/kg/hr, 10 mls/hr Norepinephrine Bitartrate 4 mg (/ Sodium Chloride) 254 mls @ 15.24 mls/hr IV .[id number] PRN; Protocol PRN Reason: TITRATE PER MD ORDER Last Titration: 03/25/18 02:20 Dose: 0 mcg/min, 0 mls/hr Potassium Phosphate 15 mmole/ (Sodium Chloride) 255 mls @ 42.5 mls/hr IVPB ONCE ONE Stop: 03/25/18 13:59 Last Admin: 03/25/18 08:42 Dose: 42.5 mls/hr Nystatin (Nystop Topical Powder) 1 applic TOP BID [facility] Last Admin: 03/25/18 09:35 Dose: 1 applic Pantoprazole Sodium (Protonix Inj) 40 mg IVP DAILY [facility] Last Admin: 03/25/18 09:34 Dose: 40 mg Silver Sulfadiazine (Silvadene 1% 20 Gm) 1 ea TOP Q12H [facility] Last Admin: 03/25/18 04:57 Dose: 1 gm Spironolactone (Aldactone) 25 mg PO Q2D [facility] Last Admin: 03/24/18 08:33 Dose: 25 mg Verapamil HCl (Calan Tab) 40 mg PO Q8H [facility] Last Admin: 03/25/18 09:34 Dose: 40 mg - Labs Labs: 03/25/18 04:00 03/25/18 06:09 PT 25.5 SECONDS (9.7-12.2) H 03/25/18 08:11 INR 2.3 03/25/18 08:11 APTT 32 SECONDS (21-34) 03/25/18 08:11 - Constitutional Appears: Non-toxic, No Acute Distress - Extremities Exam Additional comments: VASC: Pulses are palpable b/l, Temp gradient cool to cool from proximal to distal, Cap refill time: <3 secs x 10, no edema present. DERM: dry, flaky, hyperkeratotic skin noted to b/l LE distal to the knee joint, no open lesions present, unstageable decubitus ulceration noted to right heel. NEURO: Gross sensation intact b/l ORTHO: No tenderness to palpation noted to lower extremity b/l - Neurological Exam Neurological Exam: Awake Assessment and Plan - Assessment and Plan (Free Text) Assessment: 82 year old female with RLE venous stasis wounds Plan: Patient seen and evaluated Discussed with attending, Dr. Alyssa LORENZANA, WBC 7.7 Local wound care: xeroform, DSD; LEIDY b/l Right heel wound stable, will continue to monitor Continue multipodus boots at all times in bed Podiatry will continue to follow
[2018-03-25] MEDS: Vancomycin 1 gm/NS 200 ml 1 GM/200 ML BAG IVPB SCH ×2 (12:00→23:32)
--- NOTE | 2018-03-25 12:59 | CP.CCUPN ---
<Margi Valenzuela - Last Filed: 03/25/18 12:55> CCU Subjective - Physician Review Events Since Last Encounter (Free Text): 03/25/18 13:05 Central line was placed for blood pressure being low. Levophed was continued through T[facility] Subjective (Free Text): PGY-1 Critical Care Progress Note for Dr. Palomo's service Patient seen and examined at bedside. 12 point ROS limited as patient is intubated. Plan for Thoracentesis as per Dr. Amador CCU Objective - Vital Signs / Intake & Output Vital Signs (Last 4 hours): Vital Signs Pulse Resp BP Pulse Ox 03/25/18 12:03 70 14 104/72 96 03/25/18 12:00 67 18 100 03/25/18 11:32 65 15 115/79 100 03/25/18 11:02 67 16 108/77 100 03/25/18 11:00 65 17 100 03/25/18 10:32 66 14 109/76 100 03/25/18 10:00 71 19 94 L 03/25/18 09:47 70 16 128/86 100 03/25/18 09:17 67 16 125/86 100 03/25/18 09:00 66 16 99 Intake and Output (Last 8hrs): Intake & Output 03/24/18 03/25/18 03/25/18 22:59 06:59 14:59 Intake Total 1109.5 1499.7 1176.5 Output Total 625 460 280 Balance 484.5 1039.7 896.5 Weight 216 lb Intake: IV 50 277 1 Intake, IV Amount 959.5 977.7 925.5 Right Forearm 500 Right Hand 67.8 lt ij tlc proximal 34.2 22.7 212.5 right FA #2 12.5 rt ij tlc distal 45 105 80 rt ij tlc middle 300 850 633 Tube Feeding 100 245 250 Output: Urine 625 460 280 Urethral ([place]) 625 460 280 - Physical Exam Head: Positive for: Atraumatic, Normocephalic Pupils: Positive for: PERRL Extroacular Muscles: Positive for: EOMI Conjunctiva: Positive for: Normal Mouth: Positive for: Dry Neck: Positive for: Normal Range of Motion. Negative for: JVD, Lymphadenopathy Respiratory/Chest: Positive for: Good Air Exchange. Negative for: Respiratory Distress, Accessory Muscle Use, Wheezes, Tachypneic Cardiovascular: Positive for: Regular Rate and Rhythm, Normal S1, S2. Negative for: Murmurs, Irregular Rhythm Abdomen: Positive for: Normal Bowel Sounds. Negative for: Tenderness, Distention, Peritoneal Signs Upper Extremity: Positive for: Normal Inspection. Negative for: Cyanosis, Edema Lower Extremity: Positive for: Normal Inspection. Negative for: Edema Skin: Positive for: Dry, Normal Color. Negative for: Diaphoretic Psychiatric: Positive for: Alert - Medications Active Medications: Active Medications Generic Name Dose Route Start Last Admin Trade Name Freq PRN Reason Stop Dose Admin Acetaminophen 650 mg 03/23/18 15:59 Tylenol 325mg Tab PO Q6 PRN Fever >100.4 F Albuterol/Ipratropium 3 ml 03/23/18 20:00 03/25/18 07:57 Duoneb 3 Mg/0.5 Mg (3 Ml) Ud INH 3 ml RQ4 CAMILLA Administration Amiodarone HCl 200 mg 03/23/18 16:45 03/25/18 09:34 Cordarone PO 200 mg DAILY CAMILLA Administration Apixaban 5 mg 03/23/18 18:00 03/24/18 18:27 Eliquis PO 5 mg BID CAMILLA Administration Piperacillin Sod/Tazobactam Sod 3.375 gm in 50 mls @ 100 mls/hr 03/23/18 17:00 03/25/18 09:34 Zosyn 3.375 Gm Iv Premix IVPB 100 mls/hr Q8H CAMILLA Administration Protocol Sodium Chloride 1,000 mls @ 100 mls/hr 03/23/18 17:00 03/25/18 02:22 Sodium Chloride 0.9% IV 100 mls/hr .Q10H CAMILLA Administration Vancomycin/Sodium Chloride 1 gm in 200 mls @ 133 mls/hr 03/24/18 00:30 03/25/18 12:00 Vancomycin 1 Gm/Ns 200 Ml IVPB 03/29/18 00:31 133 mls/hr Q12H CAMILLA Administration Protocol Dexmedetomidine HCl 200 mcg/ 50 mls @ 5.01 mls/hr 03/23/18 17:51 03/25/18 10:41 Sodium Chloride IV 0.59 mcg/kg/hr TITR PRN 15 mls/hr Intubation Titration Protocol 0.2 MCG/KG/HR Norepinephrine Bitartrate 4 mg 254 mls @ 15.24 mls/hr 03/24/18 10:20 03/25/18 02:20 / Sodium Chloride IV 0 mcg/min .[id number] PRN 0 mls/hr TITRATE PER MD ORDER Titration Protocol 4 MCG/MIN Potassium Phosphate 15 mmole/ 255 mls @ 42.5 mls/hr 03/25/18 08:00 03/25/18 08:42 Sodium Chloride IVPB 03/25/18 13:59 42.5 mls/hr ONCE ONE Administration Lorazepam 1 mg 03/25/18 10:01 Ativan IVP Q4H PRN Anxiety Nystatin 1 applic 03/23/18 18:00 03/25/18 09:35 Nystop Topical Powder TOP 1 applic BID CAMILLA Administration Pantoprazole Sodium 40 mg 03/23/18 17:30 03/25/18 09:34 Protonix Inj IVP 40 mg DAILY CAMILLA Administration Silver Sulfadiazine 1 ea 03/23/18 16:45 03/25/18 04:57 Silvadene 1% 20 Gm TOP 1 gm Q12H CAMILLA Administration Spironolactone 25 mg 03/24/18 07:00 03/24/18 08:33 Aldactone PO 25 mg Q2D CAMILLA Administration Verapamil HCl 40 mg 03/23/18 16:45 03/25/18 09:34 Calan Tab PO 40 mg Q8H CAMILLA Administration - Patient Studies Lab Studies: Microbiology Studies 03/23/18 09:14 Urine Culture - Final Urine Yeast Species 03/24/18 05:38 MRSA Culture (Admit) - Final Naris MRSA NOT DETECTED 03/23/18 08:25 Blood Culture - Preliminary Blood NO GROWTH AFTER 48 HOURS 03/23/18 08:00 Blood Culture - Preliminary Blood NO GROWTH AFTER 48 HOURS 03/24/18 11:45 Gram Stain - Preliminary Trachasp Lab Studies 03/25/18 03/25/18 03/25/18 Range/Units 08:11 06:09 05:31 WBC (4.8-10.8) K/uL RBC (3.80-5.20) Mil/uL Hgb (11.0-16.0) g/dL Hct (34.0-47.0) % MCV (81.0-99.0) fL MCH (27.0-31.0) pg MCHC (33.0-37.0) g/dL RDW (11.5-14.5) % Plt Count (130-400) K/uL MPV (7.2-11.7) fL Neut % (Auto) (50.0-75.0) % Lymph % (Auto) (20.0-40.0) % [place] % (Auto) (0.0-10.0) % Eos % (Auto) (0.0-4.0) % Baso % (Auto) (0.0-2.0) % Neut # (Auto) (1.8-7.0) K/uL Lymph # (Auto) (1.0-4.3) K/uL [place] # (Auto) (0.0-0.8) K/uL Eos # (Auto) (0.0-0.7) K/uL Baso # (Auto) (0.0-0.2) K/uL Neutrophils % (Manual) (50-75) % Lymphocytes % (Manual) (20-40) % Monocytes % (Manual) (0-10) % Platelet Estimate (NORMAL) Polychromasia Hypochromasia (manual) Poikilocytosis (manual Anisocytosis (manual) Microcytosis (manual) Macrocytosis (manual) Ovalocytes PT 25.5 H (9.7-12.2) SECONDS INR 2.3 APTT 32 (21-34) SECONDS Puncture Site Rr pCO2 33 L (35-45) mm/Hg pO2 102 H (80-100) mm/Hg HCO3 31.9 H (21-28) mmol/L ABG pH 7.58 H (7.35-7.45) ABG Total CO2 31.9 H (22-28) mmol/L ABG O2 Saturation 99.0 H (95-98) % ABG Base Excess 8.9 H (-2.0-3.0) mmol/L Pawel Test Pos ABG Potassium 2.9 L (3.6-5.2) mmol/L A-a O2 Difference 427.0 mm/Hg Respiratory Index 4.2 Sodium 143 145.0 (132-148) mmol/l Chloride 104 110.0 H (98-107) mmol/L Glucose 103 (65-105) mg/dl Lactate 1.3 (0.7-2.1) mmol/L Vent Mode Prvc Mechanical Rate 16 FiO2 80.0 % Tidal Volume 450 PEEP 5 Potassium 3.0 L (3.6-5.2) mmol/L Carbon Dioxide 32 H (22-30) mmol/L Anion Gap 10 (10-20) BUN 38 H (7-17) mg/dL Creatinine 0.7 (0.7-1.2) mg/dL Est GFR ( Amer) > 60 Est GFR (Non-Af Amer) > 60 Random Glucose 95 D (65-105) mg/dL Calcium 7.9 L (8.6-10.4) mg/dl Phosphorus 2.2 L (2.5-4.5) mg/dL Magnesium 1.9 (1.6-2.3) mg/dL Total Bilirubin 2.1 H (0.2-1.3) mg/dL AST 24 (14-36) U/L ALT 29 (9-52) U/L Alkaline Phosphatase 55 (38-126) U/L Total Protein 4.8 L (6.3-8.3) g/dL Albumin 2.3 L (3.5-5.0) g/dL Globulin 2.5 (2.2-3.9) gm/dL Albumin/Globulin Ratio 0.9 L (1.0-2.1) Arterial Blood Potassium 2.9 L (3.6-5.2) mmol/L 03/25/18 Range/Units 04:00 WBC 7.7 (4.8-10.8) K/uL RBC 4.18 (3.80-5.20) Mil/uL Hgb 10.7 L (11.0-16.0) g/dL Hct 34.4 (34.0-47.0) % MCV 82.3 (81.0-99.0) fL MCH 25.6 L (27.0-31.0) pg MCHC 31.1 L (33.0-37.0) g/dL RDW 26.5 H (11.5-14.5) % Plt Count 156 (130-400) K/uL MPV 8.5 (7.2-11.7) fL Neut % (Auto) 84.3 H (50.0-75.0) % Lymph % (Auto) 8.0 L (20.0-40.0) % [place] % (Auto) 5.9 (0.0-10.0) % Eos % (Auto) 0.6 (0.0-4.0) % Baso % (Auto) 1.2 (0.0-2.0) % Neut # (Auto) 6.5 (1.8-7.0) K/uL Lymph # (Auto) 0.6 L (1.0-4.3) K/uL [place] # (Auto) 0.5 (0.0-0.8) K/uL Eos # (Auto) 0.0 (0.0-0.7) K/uL Baso # (Auto) 0.1 (0.0-0.2) K/uL Neutrophils % (Manual) 85 H (50-75) % Lymphocytes % (Manual) 9 L (20-40) % Monocytes % (Manual) 6 (0-10) % Platelet Estimate Normal (NORMAL) Polychromasia Slight Hypochromasia (manual) Slight Poikilocytosis (manual Slight Anisocytosis (manual) Slight Microcytosis (manual) Slight Macrocytosis (manual) Slight Ovalocytes Slight PT (9.7-12.2) SECONDS INR APTT (21-34) SECONDS Puncture Site pCO2 (35-45) mm/Hg pO2 (80-100) mm/Hg HCO3 (21-28) mmol/L ABG pH (7.35-7.45) ABG Total CO2 (22-28) mmol/L ABG O2 Saturation (95-98) % ABG Base Excess (-2.0-3.0) mmol/L Pawel Test ABG Potassium (3.6-5.2) mmol/L A-a O2 Difference mm/Hg Respiratory Index Sodium (132-148) mmol/l Chloride (98-107) mmol/L Glucose (65-105) mg/dl Lactate (0.7-2.1) mmol/L Vent Mode Mechanical Rate FiO2 % Tidal Volume PEEP Potassium (3.6-5.2) mmol/L Carbon Dioxide (22-30) mmol/L Anion Gap (10-20) BUN (7-17) mg/dL Creatinine (0.7-1.2) mg/dL Est GFR ( Amer) Est GFR (Non-Af Amer) Random Glucose (65-105) mg/dL Calcium (8.6-10.4) mg/dl Phosphorus (2.5-4.5) mg/dL Magnesium (1.6-2.3) mg/dL Total Bilirubin (0.2-1.3) mg/dL AST (14-36) U/L ALT (9-52) U/L Alkaline Phosphatase (38-126) U/L Total Protein (6.3-8.3) g/dL Albumin (3.5-5.0) g/dL Globulin (2.2-3.9) gm/dL Albumin/Globulin Ratio (1.0-2.1) Arterial Blood Potassium (3.6-5.2) mmol/L Laboratory Results - last 24 hr 03/25/18 03/25/18 03/25/18 04:00 05:31 06:09 WBC 7.7 RBC 4.18 Hgb 10.7 L Hct 34.4 MCV 82.3 MCH 25.6 L MCHC 31.1 L RDW 26.5 H Plt Count 156 MPV 8.5 Neut % (Auto) 84.3 H Lymph % (Auto) 8.0 L [place] % (Auto) 5.9 Eos % (Auto) 0.6 Baso % (Auto) 1.2 Neut # (Auto) 6.5 Lymph # (Auto) 0.6 L [place] # (Auto) 0.5 Eos # (Auto) 0.0 Baso # (Auto) 0.1 Neutrophils % (Manual) 85 H Lymphocytes % (Manual) 9 L Monocytes % (Manual) 6 Platelet Estimate Normal Polychromasia Slight Hypochromasia (manual) Slight Poikilocytosis (manual Slight Anisocytosis (manual) Slight Microcytosis (manual) Slight Macrocytosis (manual) Slight Ovalocytes Slight PT INR APTT Puncture Site Rr pCO2 33 L pO2 102 H HCO3 31.9 H ABG pH 7.58 H ABG Total CO2 31.9 H ABG O2 Saturation 99.0 H ABG Base Excess 8.9 H Pawel Test Pos ABG Potassium 2.9 L A-a O2 Difference 427.0 Respiratory Index 4.2 Sodium 145.0 143 Chloride 110.0 H 104 Glucose 103 Lactate 1.3 Vent Mode Prvc Mechanical Rate 16 FiO2 80.0 Tidal Volume 450 PEEP 5 Potassium 3.0 L Carbon Dioxide 32 H Anion Gap 10 BUN 38 H Creatinine 0.7 Est GFR ( Amer) > 60 Est GFR (Non-Af Amer) > 60 Random Glucose 95 D Calcium 7.9 L Phosphorus 2.2 L Magnesium 1.9 Total Bilirubin 2.1 H AST 24 ALT 29 Alkaline Phosphatase 55 Total Protein 4.8 L Albumin 2.3 L Globulin 2.5 Albumin/Globulin Ratio 0.9 L Arterial Blood Potassium 2.9 L 03/25/18 08:11 WBC RBC Hgb Hct MCV MCH MCHC RDW Plt Count MPV Neut % (Auto) Lymph % (Auto) [place] % (Auto) Eos % (Auto) Baso % (Auto) Neut # (Auto) Lymph # (Auto) [place] # (Auto) Eos # (Auto) Baso # (Auto) Neutrophils % (Manual) Lymphocytes % (Manual) Monocytes % (Manual) Platelet Estimate Polychromasia Hypochromasia (manual) Poikilocytosis (manual Anisocytosis (manual) Microcytosis (manual) Macrocytosis (manual) Ovalocytes PT 25.5 H INR 2.3 APTT 32 Puncture Site pCO2 pO2 HCO3 ABG pH ABG Total CO2 ABG O2 Saturation ABG Base Excess Pawel Test ABG Potassium A-a O2 Difference Respiratory Index Sodium Chloride Glucose Lactate Vent Mode Mechanical Rate FiO2 Tidal Volume PEEP Potassium Carbon Dioxide Anion Gap BUN Creatinine Est GFR ( Amer) Est GFR (Non-Af Amer) Random Glucose Calcium Phosphorus Magnesium Total Bilirubin AST ALT Alkaline Phosphatase Total Protein Albumin Globulin Albumin/Globulin Ratio Arterial Blood Potassium Radiology Impressions: Radiology Impressions Chest X-Ray 03/24/18 17:25 IMPRESSION: Interval insertion left internal jugular vein central catheter tip superior vena cava. No pneumothorax seen. Bilateral pleural effusions with the favored bibasilar compressive atelectasis is similar. Overall coalescent airspace opacities compatible with coalescent areas of pulmonary venous congestion/pulmonary edema the greater extent throughout the right lung is similar in appearance with prior study. Endotracheal tube and NG tube positions satisfactory. Review of Systems - Review of Systems Review of Systems: 12 point ROS obtained and noted in HPI Critical Care Progress Note - Ventilator Checklist Head of Bed 30 Degrees: Yes Daily Sedation Vacation: Yes Daily Assessment of Readiness to Wean: Yes Daily Spontaneous Breathing Trial: Yes PUD Prophalyxis: Yes DVT Prophylaxis: Yes Oral Care with Chlorhexidine Gluconate {CHG}: Yes - Vent Settings MODE:: PRVC - Extremities/Vascular Does the Patient have a Central Venous Catheter?: Yes Insertion Site: Internal Jugular Vein Does the Patient need a Central Venous Catheter?: Yes Does the Patient have a [place] Catheter?: Yes Does the Patient need a [place] Catheter?: Yes Catheter Insertion Criteria: Need for accurate measurement of output in critically ill patient - Prophylaxis GI Prophylaxis GI: PPI - Nutrition Nutrition: Nutrition Category Date Time Status NPO Diet [DIET] Diets 03/24/18 Breakfast Active Assessment/Plan - Assessment and Plan (Free Text) Assessment: Patient is a 82 yo female w/ PMH of CHF, HTN, Afib on AC, and hx of pleural effusions admitted to hospital for bilateral pleural effusions with overlying PNA. Patient was intubated after patient began to respond to only painful stimuli with GCS of 6. Patient is hypotensive and levophed was started with plans for central line and thoracentesis. Patient on Eliquis so procedure is delayed a bit to decrease bleeding risk. Neuro: Alert, Awake, Responsive to verbal and tactile stimuli; On Precedex drip; Pulm: Intubated; On precedex drip and Ativan IV 1 mg q4h prn; Cxray shows bilateral pulmonary edema and effusions; Duoneb; Plan for thoracentesis as per Dr. Amador Cardio: Hypotensive: Levophed drip; Central line in left IJ vein Hx of Afib: Eliquis 5mg po bid camilla-held; Amiodarone 200mg po daily; Verapamil 40mg po q8h camilla Hx of CHF: Aldactone 25mg q 2 d; Lasix as needed GI: NPO; No acute issues; Protonix 40mg IV daily Endo: No acute issues Renal: NS @ 100mls/hr; Urine culture positive for yeast species; Fluconazole IVPB; Low Potassium and phosphorus; Repleted with KPhos Derm: Chronic bilateral foot ulcers- Podiatry on board; Sacral ulcer stage 3- Wound care consulted ID: Consolidations on chest CT concerning for PNA; Currently Afebrile with no elevated WBCs; Tylenol 650mg po q6 prn; Vanc/Zosyn and Fluconazole GI PPX: Protonix 40mg IV daily DVT PPX: Eliquis 5mg po bid camilla- held NPO <Evan Valadez - Last Filed: 03/25/18 17:54> CCU Objective - Vital Signs / Intake & Output Vital Signs (Last 4 hours): Vital Signs Pulse Resp BP Pulse Ox 03/25/18 17:32 70 22 112/72 100 03/25/18 17:02 69 19 111/72 99 03/25/18 17:00 70 19 99 03/25/18 16:32 72 14 116/78 99 03/25/18 16:02 66 14 127/80 100 03/25/18 16:00 70 14 100 03/25/18 15:32 69 14 124/83 100 03/25/18 15:02 74 14 109/74 100 03/25/18 15:00 75 24 99 03/25/18 14:32 69 14 108/68 100 03/25/18 14:02 68 14 101/68 100 03/25/18 14:00 73 14 100 Intake and Output (Last 8hrs): Intake & Output 03/25/18 03/25/18 03/25/18 06:59 14:59 22:59 Intake Total 1499.7 1716.5 380 Output Total 460 360 70 Balance 1039.7 1356.5 310 Weight 216 lb Intake: IV 277 49 50 Intake, IV Amount 977.7 1257.5 230 lt ij tlc proximal 22.7 297.5 rt ij tlc distal 105 110 30 rt ij tlc middle 850 850 200 Tube Feeding 245 350 100 Other 60 Output: Urine 460 360 70 Urethral ([place]) 460 360 70 - Medications Active Medications: Active Medications Generic Name Dose Route Start Last Admin Trade Name Freq PRN Reason Stop Dose Admin Acetaminophen 650 mg 03/23/18 15:59 Tylenol 325mg Tab PO Q6 PRN Fever >100.4 F Albuterol/Ipratropium 3 ml 03/23/18 20:00 03/25/18 16:10 Duoneb 3 Mg/0.5 Mg (3 Ml) Ud INH 3 ml RQ4 CAM[place]A Administration Amiodarone HCl 200 mg 03/23/18 16:45 03/25/18 09:34 Cordarone PO 200 mg DAILY CAMILLA Administration Apixaban 5 mg 03/23/18 18:00 03/24/18 18:27 Eliquis PO 5 mg BID CAMILLA Administration Heparin Sodium (Porcine) 5,000 units 03/25/18 14:00 03/25/18 14:12 Heparin SC 5,000 units Q8 CAMILLA Administration Piperacillin Sod/Tazobactam Sod 3.375 gm in 50 mls @ 100 mls/hr 03/23/18 17:00 03/25/18 17:09 Zosyn 3.375 Gm Iv Premix IVPB 100 mls/hr Q8H CAM[place]A Administration Protocol Sodium Chloride 1,000 mls @ 100 mls/hr 03/23/18 17:00 03/25/18 14:22 Sodium Chloride 0.9% IV 100 mls/hr .Q10H CAMILLA Administration Vancomycin/Sodium Chloride 1 gm in 200 mls @ 133 mls/hr 03/24/18 00:30 03/25/18 12:00 Vancomycin 1 Gm/Ns 200 Ml IVPB 03/29/18 00:31 133 mls/hr Q12H CAMILLA Administration Protocol Dexmedetomidine HCl 200 mcg/ 50 mls @ 5.01 mls/hr 03/23/18 17:51 03/25/18 17:10 Sodium Chloride IV 0.59 mcg/kg/hr TITR PRN 15 mls/hr Intubation Administration Protocol 0.2 MCG/KG/HR Norepinephrine Bitartrate 4 mg 254 mls @ 15.24 mls/hr 03/24/18 10:20 03/25/18 02:20 / Sodium Chloride IV 0 mcg/min .[id number] PRN 0 mls/hr TITRATE PER MD ORDER Titration Protocol 4 MCG/MIN Fluconazole 100 mg/ 50 mls @ 100 mls/hr 03/25/18 14:00 03/25/18 14:13 Miscellaneous IVPB 100 mls/hr DAILY CAMILLA Administration Protocol Lorazepam 1 mg 03/25/18 10:01 03/25/18 14:56 Ativan IVP 1 mg Q4H PRN Administration Anxiety Nystatin 1 applic 03/23/18 18:00 03/25/18 17:08 Nystop Topical Powder TOP 1 applic BID CAMILLA Administration Pantoprazole Sodium 40 mg 03/23/18 17:30 03/25/18 09:34 Protonix Inj IVP 40 mg DAILY CAMILLA Administration Silver Sulfadiazine 1 ea 03/23/18 16:45 03/25/18 17:09 Silvadene 1% 20 Gm TOP 1 gm Q12H CAMILLA Administration Spironolactone 25 mg 03/24/18 07:00 03/24/18 08:33 Aldactone PO 25 mg Q2D CAMILLA Administration Verapamil HCl 40 mg 03/23/18 16:45 03/25/18 17:09 Calan Tab PO 40 mg Q8H CAMILLA Administration - Patient Studies Lab Studies: Microbiology Studies 03/23/18 09:14 Urine Culture - Final Urine Yeast Species 03/24/18 05:38 MRSA Culture (Admit) - Final Naris MRSA NOT DETECTED 03/23/18 08:25 Blood Culture - Preliminary Blood NO GROWTH AFTER 48 HOURS 03/23/18 08:00 Blood Culture - Preliminary Blood NO GROWTH AFTER 48 HOURS 03/24/18 11:45 Gram Stain - Preliminary Trachasp Lab Studies 03/25/18 03/25/18 03/25/18 Range/Units 16:00 15:16 08:11 WBC (4.8-10.8) K/uL RBC (3.80-5.20) Mil/uL Hgb (11.0-16.0) g/dL Hct (34.0-47.0) % MCV (81.0-99.0) fL MCH (27.0-31.0) pg MCHC (33.0-37.0) g/dL RDW (11.5-14.5) % Plt Count (130-400) K/uL MPV (7.2-11.7) fL Neut % (Auto) (50.0-75.0) % Lymph % (Auto) (20.0-40.0) % [place] % (Auto) (0.0-10.0) % Eos % (Auto) (0.0-4.0) % Baso % (Auto) (0.0-2.0) % Neut # (Auto) (1.8-7.0) K/uL Lymph # (Auto) (1.0-4.3) K/uL [place] # (Auto) (0.0-0.8) K/uL Eos # (Auto) (0.0-0.7) K/uL Baso # (Auto) (0.0-0.2) K/uL Neutrophils % (Manual) (50-75) % Lymphocytes % (Manual) (20-40) % Monocytes % (Manual) (0-10) % Platelet Estimate (NORMAL) Polychromasia Hypochromasia (manual) Poikilocytosis (manual Anisocytosis (manual) Microcytosis (manual) Macrocytosis (manual) Ovalocytes PT 25.5 H (9.7-12.2) SECONDS INR 2.3 APTT 32 (21-34) SECONDS Puncture Site pCO2 (35-45) mm/Hg pO2 (80-100) mm/Hg HCO3 (21-28) mmol/L ABG pH (7.35-7.45) ABG Total CO2 (22-28) mmol/L ABG O2 Saturation (95-98) % ABG Base Excess (-2.0-3.0) mmol/L Pawel Test ABG Potassium (3.6-5.2) mmol/L A-a O2 Difference mm/Hg Respiratory Index Sodium 142 (132-148) mmol/l Chloride 103 (98-107) mmol/L Glucose (65-105) mg/dl Lactate (0.7-2.1) mmol/L Vent Mode Mechanical Rate FiO2 % Tidal Volume PEEP Potassium 3.6 (3.6-5.2) mmol/L Carbon Dioxide 32 H (22-30) mmol/L Anion Gap 10 (10-20) BUN 35 H (7-17) mg/dL Creatinine 0.6 L (0.7-1.2) mg/dL Est GFR ( Amer) > 60 Est GFR (Non-Af Amer) > 60 Random Glucose 122 H D (65-105) mg/dL Calcium 7.9 L (8.6-10.4) mg/dl Phosphorus 3.5 (2.5-4.5) mg/dL Magnesium 1.8 (1.6-2.3) mg/dL Total Bilirubin 2.0 H (0.2-1.3) mg/dL AST 26 (14-36) U/L ALT 26 (9-52) U/L Alkaline Phosphatase 63 (38-126) U/L Total Protein 5.0 L (6.3-8.3) g/dL Albumin 2.4 L (3.5-5.0) g/dL Globulin 2.6 (2.2-3.9) gm/dL Albumin/Globulin Ratio 0.9 L (1.0-2.1) Arterial Blood Potassium (3.6-5.2) mmol/L Urine Color Bertha (YELLOW) Urine Clarity Hazy (Clear) Urine pH 5.0 (5.0-8.0) Ur Specific [place] 1.027 (1.003-1.030) Urine Protein 1+ H (NEGATIVE) mg/dL Urine Glucose (UA) Normal (Normal) mg/dL Urine Ketones 1+ H (NEGATIVE) mg/dL Urine Blood 3+ H (NEGATIVE) Urine Nitrate Negative (NEGATIVE) Urine Bilirubin Negative (NEGATIVE) Urine Urobilinogen 4.0 H (0.2-1.0) mg/dL Ur Leukocyte Esterase 3+ H (Negative) Nehemiah/uL Urine WBC (Auto) 166 H (0-5) /hpf Urine RBC (Auto) 195 H (0-3) /hpf Uric Acid Crystals Occ H (<OCC) /hpf Urine Bacteria Occ H (<OCC) Urine Yeast (Budding) Few H (NEGATIVE) /hpf 03/25/18 03/25/18 03/25/18 Range/Units 06:09 05:31 04:00 WBC 7.7 (4.8-10.8) K/uL RBC 4.18 (3.80-5.20) Mil/uL Hgb 10.7 L (11.0-16.0) g/dL Hct 34.4 (34.0-47.0) % MCV 82.3 (81.0-99.0) fL MCH 25.6 L (27.0-31.0) pg MCHC 31.1 L (33.0-37.0) g/dL RDW 26.5 H (11.5-14.5) % Plt Count 156 (130-400) K/uL MPV 8.5 (7.2-11.7) fL Neut % (Auto) 84.3 H (50.0-75.0) % Lymph % (Auto) 8.0 L (20.0-40.0) % [place] % (Auto) 5.9 (0.0-10.0) % Eos % (Auto) 0.6 (0.0-4.0) % Baso % (Auto) 1.2 (0.0-2.0) % Neut # (Auto) 6.5 (1.8-7.0) K/uL Lymph # (Auto) 0.6 L (1.0-4.3) K/uL [place] # (Auto) 0.5 (0.0-0.8) K/uL Eos # (Auto) 0.0 (0.0-0.7) K/uL Baso # (Auto) 0.1 (0.0-0.2) K/uL Neutrophils % (Manual) 85 H (50-75) % Lymphocytes % (Manual) 9 L (20-40) % Monocytes % (Manual) 6 (0-10) % Platelet Estimate Normal (NORMAL) Polychromasia Slight Hypochromasia (manual) Slight Poikilocytosis (manual Slight Anisocytosis (manual) Slight Microcytosis (manual) Slight Macrocytosis (manual) Slight Ovalocytes Slight PT (9.7-12.2) SECONDS INR APTT (21-34) SECONDS Puncture Site Rr pCO2 33 L (35-45) mm/Hg pO2 102 H (80-100) mm/Hg HCO3 31.9 H (21-28) mmol/L ABG pH 7.58 H (7.35-7.45) ABG Total CO2 31.9 H (22-28) mmol/L ABG O2 Saturation 99.0 H (95-98) % ABG Base Excess 8.9 H (-2.0-3.0) mmol/L Pawel Test Pos ABG Potassium 2.9 L (3.6-5.2) mmol/L A-a O2 Difference 427.0 mm/Hg Respiratory Index 4.2 Sodium 143 145.0 (132-148) mmol/l Chloride 104 110.0 H (98-107) mmol/L Glucose 103 (65-105) mg/dl Lactate 1.3 (0.7-2.1) mmol/L Vent Mode Prvc Mechanical Rate 16 FiO2 80.0 % Tidal Volume 450 PEEP 5 Potassium 3.0 L (3.6-5.2) mmol/L Carbon Dioxide 32 H (22-30) mmol/L Anion Gap 10 (10-20) BUN 38 H (7-17) mg/dL Creatinine 0.7 (0.7-1.2) mg/dL Est GFR ( Amer) > 60 Est GFR (Non-Af Amer) > 60 Random Glucose 95 D (65-105) mg/dL Calcium 7.9 L (8.6-10.4) mg/dl Phosphorus 2.2 L (2.5-4.5) mg/dL Magnesium 1.9 (1.6-2.3) mg/dL Total Bilirubin 2.1 H (0.2-1.3) mg/dL AST 24 (14-36) U/L ALT 29 (9-52) U/L Alkaline Phosphatase 55 (38-126) U/L Total Protein 4.8 L (6.3-8.3) g/dL Albumin 2.3 L (3.5-5.0) g/dL Globulin 2.5 (2.2-3.9) gm/dL Albumin/Globulin Ratio 0.9 L (1.0-2.1) Arterial Blood Potassium 2.9 L (3.6-5.2) mmol/L Urine Color (YELLOW) Urine Clarity (Clear) Urine pH (5.0-8.0) Ur Specific [place] (1.003-1.030) Urine Protein (NEGATIVE) mg/dL Urine Glucose (UA) (Normal) mg/dL Urine Ketones (NEGATIVE) mg/dL Urine Blood (NEGATIVE) Urine Nitrate (NEGATIVE) Urine Bilirubin (NEGATIVE) Urine Urobilinogen (0.2-1.0) mg/dL Ur Leukocyte Esterase (Negative) [place]/uL Urine WBC (Auto) (0-5) /hpf Urine RBC (Auto) (0-3) /hpf Uric Acid Crystals (<OCC) /hpf Urine Bacteria (<OCC) Urine Yeast (Budding) (NEGATIVE) /hpf Laboratory Results - last 24 hr 03/25/18 03/25/18 03/25/18 04:00 05:31 06:09 WBC 7.7 RBC 4.18 Hgb 10.7 L Hct 34.4 MCV 82.3 MCH 25.6 L MCHC 31.1 L RDW 26.5 H Plt Count 156 MPV 8.5 Neut % (Auto) 84.3 H Lymph % (Auto) 8.0 L [place] % (Auto) 5.9 Eos % (Auto) 0.6 Baso % (Auto) 1.2 Neut # (Auto) 6.5 Lymph # (Auto) 0.6 L [place] # (Auto) 0.5 Eos # (Auto) 0.0 Baso # (Auto) 0.1 Neutrophils % (Manual) 85 H Lymphocytes % (Manual) 9 L Monocytes % (Manual) 6 Platelet Estimate Normal Polychromasia Slight Hypochromasia (manual) Slight Poikilocytosis (manual Slight Anisocytosis (manual) Slight Microcytosis (manual) Slight Macrocytosis (manual) Slight Ovalocytes Slight PT INR APTT Puncture Site Rr pCO2 33 L pO2 102 H HCO3 31.9 H ABG pH 7.58 H ABG Total CO2 31.9 H ABG O2 Saturation 99.0 H ABG Base Excess 8.9 H Pawel Test Pos ABG Potassium 2.9 L A-a O2 Difference 427.0 Respiratory Index 4.2 Sodium 145.0 143 Chloride 110.0 H 104 Glucose 103 Lactate 1.3 Vent Mode Prvc Mechanical Rate 16 FiO2 80.0 Tidal Volume 450 PEEP 5 Potassium 3.0 L Carbon Dioxide 32 H Anion Gap 10 BUN 38 H Creatinine 0.7 Est GFR ( Amer) > 60 Est GFR (Non-Af Amer) > 60 Random Glucose 95 D Calcium 7.9 L Phosphorus 2.2 L Magnesium 1.9 Total Bilirubin 2.1 H AST 24 ALT 29 Alkaline Phosphatase 55 Total Protein 4.8 L Albumin 2.3 L Globulin 2.5 Albumin/Globulin Ratio 0.9 L Arterial Blood Potassium 2.9 L Urine Color Urine Clarity Urine pH Ur Specific [place] Urine Protein Urine Glucose (UA) Urine Ketones Urine Blood Urine Nitrate Urine Bilirubin Urine Urobilinogen Ur Leukocyte Esterase Urine WBC (Auto) Urine RBC (Auto) Uric Acid Crystals Urine Bacteria Urine Yeast (Budding) 03/25/18 03/25/18 03/25/18 08:11 15:16 16:00 WBC RBC Hgb Hct MCV MCH MCHC RDW Plt Count MPV Neut % (Auto) Lymph % (Auto) [place] % (Auto) Eos % (Auto) Baso % (Auto) Neut # (Auto) Lymph # (Auto) [place] # (Auto) Eos # (Auto) Baso # (Auto) Neutrophils % (Manual) Lymphocytes % (Manual) Monocytes % (Manual) Platelet Estimate Polychromasia Hypochromasia (manual) Poikilocytosis (manual Anisocytosis (manual) Microcytosis (manual) Macrocytosis (manual) Ovalocytes PT 25.5 H INR 2.3 APTT 32 Puncture Site pCO2 pO2 HCO3 ABG pH ABG Total CO2 ABG O2 Saturation ABG Base Excess Pawel Test ABG Potassium A-a O2 Difference Respiratory Index Sodium 142 Chloride 103 Glucose Lactate Vent Mode Mechanical Rate FiO2 Tidal Volume PEEP Potassium 3.6 Carbon Dioxide 32 H Anion Gap 10 BUN 35 H Creatinine 0.6 L Est GFR ( Amer) > 60 Est GFR (Non-Af Amer) > 60 Random Glucose 122 H D Calcium 7.9 L Phosphorus 3.5 Magnesium 1.8 Total Bilirubin 2.0 H AST 26 ALT 26 Alkaline Phosphatase 63 Total Protein 5.0 L Albumin 2.4 L Globulin 2.6 Albumin/Globulin Ratio 0.9 L Arterial Blood Potassium Urine Color Bertha Urine Clarity Hazy Urine pH 5.0 Ur Specific [place] 1.027 Urine Protein 1+ H Urine Glucose (UA) Normal Urine Ketones 1+ H Urine Blood 3+ H Urine Nitrate Negative Urine Bilirubin Negative Urine Urobilinogen 4.0 H Ur Leukocyte Esterase 3+ H Urine WBC (Auto) 166 H Urine RBC (Auto) 195 H Uric Acid Crystals Occ H Urine Bacteria Occ H Urine Yeast (Budding) Few H Radiology Impressions: Radiology Impressions Chest X-Ray 03/24/18 17:25 IMPRESSION: Interval insertion left internal jugular vein central catheter tip superior vena cava. No pneumothorax seen. Bilateral pleural effusions with the favored bibasilar compressive atelectasis is similar. Overall coalescent airspace opacities compatible with coalescent areas of pulmonary venous congestion/pulmonary edema the greater extent throughout the right lung is similar in appearance with prior study. Endotracheal tube and NG tube positions satisfactory. Chest X-Ray 03/25/18 07:00 IMPRESSION: Left IJ approach central venous catheter extends expected location of the brachiocephalic vein/SVC junction. Endotracheal tube terminates approximately 3.6 cm above the fareed. Hazy right greater than left pleural effusions and associated consolidations. Hypoinflation. Right upper lobe granulomatous changes. Critical Care Progress Note - Nutrition Nutrition: Nutrition Category Date Time Status NPO Diet [DIET] Diets 03/24/18 Breakfast Active Attending/Attestation - Attestation I have personally seen and examined this patient.: Yes I have fully participated in the care of the patient.: Yes I have reviewed all pertinent clinical information: Yes Notes (Text): 03/25/18 17:50 Today: Friday, September 29, 2017 The Patient was seen and examined at the bedside, Medical records reviewed, and management issues were discussed and formulated with the house staff. I have reviewed all the relevant clinical, laboratory, hemodynamic, radiographic data and medications Events reviewed Pain issues, skin care, head of the bed elevation, glycemic control were addressed. Agree with above resident's assessment and treatment plans of care as transcribed in Dr. Valenzuela's note. Critically ill patient with acute hypoxemic respiratory failure, Respiratory acidosis from acuter pulmonary infection with bilateral pleural effusion H/O CHF, HTN, A-Fibrillations MEL Now with improving renal function Discussed with the family in details diagnosis, treatment plans and alternatives, GI PPX: Protonix 40 mg PO DVT PPX: SQ Heparin Continue Antibiotics, Amiodarone and Anticoagulations Code status: Full code Total critical care time 42 minutes
--- NOTE | 2018-03-25 13:14 | RAD ---
HISTORY: intubated COMPARISON: Chest x-ray performed 03/24/18 TECHNIQUE: Chest, one view. FINDINGS: Left IJ approach central venous catheter extends to the brachiocephalic/SVC junction.Endotracheal tube terminates approximately 3.6 cm above the fareed. LUNGS: Hazy right greater than left pleural effusions and associated consolidations. Hypoinflation. No definite pneumothorax. Right upper lobe granulomatous changes. CARDIOVASCULAR: Cardiomegaly. Atherosclerotic calcification present. OSSEOUS STRUCTURES: Degenerative changes of the spine. VISUALIZED UPPER ABDOMEN: Unremarkable. OTHER FINDINGS: None. IMPRESSION: Left IJ approach central venous catheter extends expected location of the brachiocephalic vein/SVC junction. Endotracheal tube terminates approximately 3.6 cm above the fareed. Hazy right greater than left pleural effusions and associated consolidations. Hypoinflation. Right upper lobe granulomatous changes.
[2018-03-25] MEDS ORDERED: Fluconazole IV 200mg/100 ml NS 100 MG in Premixed IV 1 EA IVPB SCH (14:00)
--- NOTE | 2018-03-25 14:20 | CP.PCM.PN ---
Subjective - Date & Time of Evaluation Date of Evaluation: 03/25/18 Time of Evaluation: 14:18 - Subjective Subjective: Still intubated and sedated. Objective - Vital Signs/Intake and Output Vital Signs (last 24 hours): Temp Pulse Resp BP Pulse Ox 98.3 F 72 21 94/66 L 95 03/25/18 08:00 03/25/18 13:34 03/25/18 13:34 03/25/18 13:34 03/25/18 13:00 Intake and Output: 03/25/18 03/25/18 06:59 18:59 Intake Total 2134.0 1449.0 Output Total 785 320 Balance 1349.0 1129.0 - Medications Medications: Current Medications Acetaminophen (Tylenol 325mg Tab) 650 mg PO Q6 PRN PRN Reason: Fever >100.4 F Albuterol/Ipratropium (Duoneb 3 Mg/0.5 Mg (3 Ml) Ud) 3 ml INH RQ4 KEV Last Admin: 03/25/18 07:57 Dose: 3 ml Amiodarone HCl (Cordarone) 200 mg PO DAILY [facility] Last Admin: 03/25/18 09:34 Dose: 200 mg Apixaban (Eliquis) 5 mg PO BID KEV Last Admin: 03/24/18 18:27 Dose: 5 mg Heparin Sodium (Porcine) (Heparin) 5,000 units SC Q8 KEV Last Admin: 03/25/18 14:12 Dose: 5,000 units Piperacillin Sod/Tazobactam Sod (Zosyn 3.375 Gm Iv Premix) 3.375 gm in 50 mls @ 100 mls/hr IVPB Q8H KEV; Protocol Last Admin: 03/25/18 09:34 Dose: 100 mls/hr Sodium Chloride (Sodium Chloride 0.9%) 1,000 mls @ 100 mls/hr IV .Q10H KEV Last Admin: 03/25/18 02:22 Dose: 100 mls/hr Vancomycin/Sodium Chloride (Vancomycin 1 Gm/Ns 200 Ml) 1 gm in 200 mls @ 133 mls/hr IVPB Q12H KEV; Protocol Stop: 03/29/18 00:31 Last Admin: 03/25/18 12:00 Dose: 133 mls/hr Dexmedetomidine HCl 200 mcg/ (Sodium Chloride) 50 mls @ 5.01 mls/hr IV TITR PRN; Protocol PRN Reason: Intubation Last Admin: 03/25/18 14:13 Dose: 0.59 mcg/kg/hr, 15 mls/hr Norepinephrine Bitartrate 4 mg (/ Sodium Chloride) 254 mls @ 15.24 mls/hr IV .[id number] PRN; Protocol PRN Reason: TITRATE PER MD ORDER Last Titration: 03/25/18 02:20 Dose: 0 mcg/min, 0 mls/hr Fluconazole 100 mg/ (Miscellaneous) 50 mls @ 100 mls/hr IVPB DAILY KEV; Protocol Last Admin: 03/25/18 14:13 Dose: 100 mls/hr Lorazepam (Ativan) 1 mg IVP Q4H PRN PRN Reason: Anxiety Nystatin (Nystop Topical Powder) 1 applic TOP BID [facility] Last Admin: 03/25/18 09:35 Dose: 1 applic Pantoprazole Sodium (Protonix Inj) 40 mg IVP DAILY [facility] Last Admin: 03/25/18 09:34 Dose: 40 mg Silver Sulfadiazine (Silvadene 1% 20 Gm) 1 ea TOP Q12H [facility] Last Admin: 03/25/18 04:57 Dose: 1 gm Spironolactone (Aldactone) 25 mg PO Q2D [facility] Last Admin: 03/24/18 08:33 Dose: 25 mg Verapamil HCl (Calan Tab) 40 mg PO Q8H [facility] Last Admin: 03/25/18 09:34 Dose: 40 mg - Labs Labs: 03/25/18 04:00 03/25/18 06:09 PT 25.5 SECONDS (9.7-12.2) H 03/25/18 08:11 INR 2.3 03/25/18 08:11 APTT 32 SECONDS (21-34) 03/25/18 08:11 - Head Exam Head Exam: NORMOCEPHALIC - Neck Exam Neck Exam: Normal Inspection - Respiratory Exam Additional comments: Intubated. - Cardiovascular Exam Cardiovascular Exam: Irregular Rhythm Additional comments: Atrial fibrillation, rate is controlled. - Extremities Exam Extremities Exam: Normal Inspection - Neurological Exam Additional comments: Sedated. Assessment and Plan (1) Atrial fibrillation and flutter Assessment & Plan: Rate is controlled, Continue therapeutic anticoagulation. Status: Acute (2) CHF (congestive heart failure) Assessment & Plan: Diuretics as needed. Electrolyte balance, keep K>4 and Mg>2. Pleural Tap. Status: Acute
[2018-03-25 15:39] LABS: ALB/GLOB RATIO 0.9 (1.0-2.1); ALBUMIN 2.4 g/dL (3.5-5.0); ALT/SGPT 26 U/L (9-52); AST/SGOT 26 U/L (14-36); BLOOD UREA NITROGEN 35 mg/dL (7-17); CALCIUM 7.9 mg/dl (8.6-10.4); GFR NON-AFRICAN AMERICAN > 60
[2018-03-25 16:22] LABS: URINE BACTERIA OCC (<OCC); URINE BILIRUBIN NEGATIVE (NEGATIVE); URINE BLOOD 3+ (NEGATIVE); URINE CLARITY Hazy (Clear); URINE COLOR Amber (YELLOW); URINE GLUCOSE (UA) NORMAL (Normal); URINE LEUKOCYTE ESTERASE 3+ Leu/uL (Negative); URINE PROTEIN 1+ mg/dL (NEGATIVE); URINE URIC ACID CRYSTALS OCC /hpf (<OCC)
--- NOTE | 2018-03-25 17:36 | CP.PCM.PN ---
Subjective - Date & Time of Evaluation Date of Evaluation: 03/25/18 Time of Evaluation: 11:40 - Subjective Subjective: 82 year old female with pmh copd, a fib, chf, htn, and dementia. Left internal jugular triple lumen catheter placed yesterday Post procedure CXR 03/24 showed no pneumothorax, ETT and NGT in position, bilateral pleural effusions with bibasilar compressive atelectasis similar to previous studies. Examined at bedside. Patient sleeping, no acute distress. Afebrile. Intubated. Good air exchange. Follow results of 03/25 CXR Patient requires thoracocentesis for large pleural effusion seen on CXR. 03/25 INR 2.3, Continue to monitor INR and will perform thoracocentesis when INR normalizes. Objective - Vital Signs/Intake and Output Vital Signs (last 24 hours): Temp Pulse Resp BP Pulse Ox 98.3 F 69 14 124/83 100 03/25/18 08:00 03/25/18 15:32 03/25/18 15:32 03/25/18 15:32 03/25/18 15:32 Intake and Output: 03/25/18 03/25/18 06:59 18:59 Intake Total 2134.0 2096.5 Output Total 785 430 Balance 1349.0 1666.5 - Medications Medications: Current Medications Acetaminophen (Tylenol 325mg Tab) 650 mg PO Q6 PRN PRN Reason: Fever >100.4 F Albuterol/Ipratropium (Duoneb 3 Mg/0.5 Mg (3 Ml) Ud) 3 ml INH RQ4 KEV Last Admin: 03/25/18 16:10 Dose: 3 ml Amiodarone HCl (Cordarone) 200 mg PO DAILY [facility] Last Admin: 03/25/18 09:34 Dose: 200 mg Apixaban (Eliquis) 5 mg PO BID KEV Last Admin: 03/24/18 18:27 Dose: 5 mg Heparin Sodium (Porcine) (Heparin) 5,000 units SC Q8 KEV Last Admin: 03/25/18 14:12 Dose: 5,000 units Piperacillin Sod/Tazobactam Sod (Zosyn 3.375 Gm Iv Premix) 3.375 gm in 50 mls @ 100 mls/hr IVPB Q8H KEV; Protocol Last Admin: 03/25/18 17:09 Dose: 100 mls/hr Sodium Chloride (Sodium Chloride 0.9%) 1,000 mls @ 100 mls/hr IV .Q10H KEV Last Admin: 03/25/18 14:22 Dose: 100 mls/hr Vancomycin/Sodium Chloride (Vancomycin 1 Gm/Ns 200 Ml) 1 gm in 200 mls @ 133 mls/hr IVPB Q12H KEV; Protocol Stop: 03/29/18 00:31 Last Admin: 03/25/18 12:00 Dose: 133 mls/hr Dexmedetomidine HCl 200 mcg/ (Sodium Chloride) 50 mls @ 5.01 mls/hr IV TITR PRN; Protocol PRN Reason: Intubation Last Admin: 03/25/18 17:10 Dose: 0.59 mcg/kg/hr, 15 mls/hr Norepinephrine Bitartrate 4 mg (/ Sodium Chloride) 254 mls @ 15.24 mls/hr IV .[id number] PRN; Protocol PRN Reason: TITRATE PER MD ORDER Last Titration: 03/25/18 02:20 Dose: 0 mcg/min, 0 mls/hr Fluconazole 100 mg/ (Miscellaneous) 50 mls @ 100 mls/hr IVPB DAILY KEV; Protocol Last Admin: 03/25/18 14:13 Dose: 100 mls/hr Lorazepam (Ativan) 1 mg IVP Q4H PRN PRN Reason: Anxiety Last Admin: 03/25/18 14:56 Dose: 1 mg Nystatin (Nystop Topical Powder) 1 applic TOP BID KEV Last Admin: 03/25/18 17:08 Dose: 1 applic Pantoprazole Sodium (Protonix Inj) 40 mg IVP DAILY [facility] Last Admin: 03/25/18 09:34 Dose: 40 mg Silver Sulfadiazine (Silvadene 1% 20 Gm) 1 ea TOP Q12H [facility]EV Last Admin: 03/25/18 17:09 Dose: 1 gm Spironolactone (Aldactone) 25 mg PO Q2D KEV Last Admin: 03/24/18 08:33 Dose: 25 mg Verapamil HCl (Calan Tab) 40 mg PO Q8H KEV Last Admin: 03/25/18 17:09 Dose: 40 mg - Labs Labs: 03/25/18 04:00 03/25/18 15:16 PT 25.5 SECONDS (9.7-12.2) H 03/25/18 08:11 INR 2.3 03/25/18 08:11 APTT 32 SECONDS (21-34) 03/25/18 08:11
--- NOTE | 2018-03-25 17:53 | CP.PCM.PN ---
Subjective - Date & Time of Evaluation Date of Evaluation: 03/25/18 Time of Evaluation: 17:51 - Subjective Subjective: pt still entubated sedated Objective - Vital Signs/Intake and Output Vital Signs (last 24 hours): Temp Pulse Resp BP Pulse Ox 98.3 F 70 22 112/72 100 03/25/18 08:00 03/25/18 17:32 03/25/18 17:32 03/25/18 17:32 03/25/18 17:32 Intake and Output: 03/25/18 03/25/18 06:59 18:59 Intake Total 2134.0 2096.5 Output Total 785 430 Balance 1349.0 1666.5 - Medications Medications: Current Medications Acetaminophen (Tylenol 325mg Tab) 650 mg PO Q6 PRN PRN Reason: Fever >100.4 F Albuterol/Ipratropium (Duoneb 3 Mg/0.5 Mg (3 Ml) Ud) 3 ml INH RQ4 KEV Last Admin: 03/25/18 16:10 Dose: 3 ml Amiodarone HCl (Cordarone) 200 mg PO DAILY [facility] Last Admin: 03/25/18 09:34 Dose: 200 mg Apixaban (Eliquis) 5 mg PO BID KEV Last Admin: 03/24/18 18:27 Dose: 5 mg Heparin Sodium (Porcine) (Heparin) 5,000 units SC Q8 KEV Last Admin: 03/25/18 14:12 Dose: 5,000 units Piperacillin Sod/Tazobactam Sod (Zosyn 3.375 Gm Iv Premix) 3.375 gm in 50 mls @ 100 mls/hr IVPB Q8H KEV; Protocol Last Admin: 03/25/18 17:09 Dose: 100 mls/hr Sodium Chloride (Sodium Chloride 0.9%) 1,000 mls @ 100 mls/hr IV .Q10H KEV Last Admin: 03/25/18 14:22 Dose: 100 mls/hr Vancomycin/Sodium Chloride (Vancomycin 1 Gm/Ns 200 Ml) 1 gm in 200 mls @ 133 mls/hr IVPB Q12H KEV; Protocol Stop: 03/29/18 00:31 Last Admin: 03/25/18 12:00 Dose: 133 mls/hr Dexmedetomidine HCl 200 mcg/ (Sodium Chloride) 50 mls @ 5.01 mls/hr IV TITR PRN; Protocol PRN Reason: Intubation Last Admin: 03/25/18 17:10 Dose: 0.59 mcg/kg/hr, 15 mls/hr Norepinephrine Bitartrate 4 mg (/ Sodium Chloride) 254 mls @ 15.24 mls/hr IV .[id number] PRN; Protocol PRN Reason: TITRATE PER MD ORDER Last Titration: 03/25/18 02:20 Dose: 0 mcg/min, 0 mls/hr Fluconazole 100 mg/ (Miscellaneous) 50 mls @ 100 mls/hr IVPB DAILY KEV; Pr otocol Last Admin: 03/25/18 14:13 Dose: 100 mls/hr Lorazepam (Ativan) 1 mg IVP Q4H PRN PRN Reason: Anxiety Last Admin: 03/25/18 14:56 Dose: 1 mg Nystatin (Nystop Topical Powder) 1 applic TOP BID KEV Last Admin: 03/25/18 17:08 Dose: 1 applic Pantoprazole Sodium (Protonix Inj) 40 mg IVP DAILY [facility] Last Admin: 03/25/18 09:34 Dose: 40 mg Silver Sulfadiazine (Silvadene 1% 20 Gm) 1 ea TOP Q12H [facility]EV Last Admin: 03/25/18 17:09 Dose: 1 gm Spironolactone (Aldactone) 25 mg PO Q2D KEV Last Admin: 03/24/18 08:33 Dose: 25 mg Verapamil HCl (Calan Tab) 40 mg PO Q8H [facility]EV Last Admin: 03/25/18 17:09 Dose: 40 mg - Labs Labs: 03/25/18 04:00 03/25/18 15:16 PT 25.5 SECONDS (9.7-12.2) H 03/25/18 08:11 INR 2.3 03/25/18 08:11 APTT 32 SECONDS (21-34) 03/25/18 08:11 - Constitutional Appears: In Acute Distress - Head Exam Head Exam: ATRAUMATIC - Eye Exam Eye Exam: Conjunctival injection - Respiratory Exam Respiratory Exam: Decreased Breath Sounds - Cardiovascular Exam Cardiovascular Exam: REGULAR RHYTHM - GI/Abdominal Exam GI & Abdominal Exam: Normal Bowel Sounds - Extremities Exam Additional comments: swalen celulitis - Psychiatric Exam Psychiatric exam: Normal Affect - Skin Skin Exam: Normal Color Assessment and Plan - Assessment and Plan (Free Text) Assessment: ac respiratory Plan: cont as per orders
[2018-03-26] MEDS: Dexmedetomidine Hydrochloride 200 MCG in Sodium Chloride 0.9% 48 ML IV PRN ×5 (00:30→15:15)
[2018-03-26] MEDS: Albuterol-Ipratrop 3 mg / 0.5 (3 ml) UD INH SCH ×7 (00:39→23:33)
[2018-03-26] MEDS: Piperacill/Tazo 3.375gm in Dex 3.375 GM/50 ML BAG IVPB SCH (01:12)
[2018-03-26] MEDS: Sodium Chloride 0.9% 1,000 ML IV SCH (05:34)
[2018-03-26 06:26] LABS: ABG ALLEN TEST POS; ARTERIAL BLOOD GAS HCO3 32.7 mmol/L (21-28); ARTERIAL BLOOD GAS HEMOGLOBIN 10.3 g/dL (11.7-17.4); ARTERIAL BLOOD GAS O2 SAT 99.3 % (95-98); ARTERIAL BLOOD GAS PCO2 39 mm/Hg (35-45); ARTERIAL BLOOD GAS PH 7.54 (7.35-7.45); ARTERIAL BLOOD GAS PO2 87 mm/Hg (80-100); ARTERIAL BLOOD GAS TCO2 34.5 mmol/L (22-28)
[2018-03-26 06:27] LABS: BASO # 0.1 K/uL (0.0-0.2); BASO % 0.8 % (0.0-2.0); EOS % 0.6 % (0.0-4.0); HEMOGLOBIN 10.6 g/dL (11.0-16.0); LYMPH # 0.4 K/uL (1.0-4.3); LYMPH % 4.9 % (20.0-40.0); MEAN CELL VOLUME 82.8 fL (81.0-99.0); MEAN CORPUSCULAR HEMOGLOBIN 25.4 pg (27.0-31.0); MEAN CORPUSCULAR HGB CONC 30.6 g/dL (33.0-37.0); MONO # 0.4 K/uL (0.0-0.8); MONO % 5.5 % (0.0-10.0); NEUT % 88.2 % (50.0-75.0); PLATELET COUNT 123 K/uL (130-400); RBC 4.18 Mil/uL (3.80-5.20); RED CELL DISTRIBUTION WIDTH 26.2 % (11.5-14.5); WHITE BLOOD COUNT 7.9 K/uL (4.8-10.8)
[2018-03-26 06:32] LABS: INR 2.1; PROTHROMBIN TIME 22.9 SECONDS (9.7-12.2)
[2018-03-26 06:42] LABS: ALB/GLOB RATIO 0.9 (1.0-2.1); ALBUMIN 2.3 g/dL (3.5-5.0); ALT/SGPT 23 U/L (9-52); AST/SGOT 17 U/L (14-36); BLOOD UREA NITROGEN 33 mg/dL (7-17); CALCIUM 7.7 mg/dl (8.6-10.4); GFR NON-AFRICAN AMERICAN > 60
[2018-03-26 08:55] LABS: ANISOCYTOSIS SLIGHT; EOSINOPHIL 1 % (0-4); HYPOCHROMIC SLIGHT; LYMPHOCYTE 9 % (20-40); MONOCYTE 5 % (0-10); NEUTROPHIL 85 % (50-75); PLATELET ESTIMATE SLIGHTLY DECREASED (NORMAL); POIKILOCYTOSIS SLIGHT; TOTAL CELLS COUNTED 100
[2018-03-26] MEDS ORDERED: Albumin Human 5% (12.5 gm/250 ml) IV ONE (10:00)
--- NOTE | 2018-03-26 10:08 | RAD ---
Date of service: 03/26/2018 HISTORY: intubated; pleural effusion COMPARISON: 03/25/2018 FINDINGS: Stable position of the endotracheal tube. The left IJV line terminates in the SVC. LUNGS: Limited portable examination due to patient rotation to the left. There is redemonstration of perihilar and lower lobe airspace disease. PLEURA: Again seen are moderate effusions. No pneumothorax. CARDIOVASCULAR: Stable. There are aortic atherosclerotic calcifications present. OSSEOUS STRUCTURES: Within normal limits for the patient's age. VISUALIZED UPPER ABDOMEN: Normal. OTHER FINDINGS: None. IMPRESSION: Little interval change in perihilar airspace disease which may represent pulmonary edema or pneumonia and redemonstration of bilateral effusions.
--- NOTE | 2018-03-26 11:07 | CP.PCM.PN ---
Subjective - Date & Time of Evaluation Date of Evaluation: 03/26/18 Time of Evaluation: 11:04 - Subjective Subjective: still enubated sedated bp low inr high bilateral pleural efusion Objective - Vital Signs/Intake and Output Vital Signs (last 24 hours): Temp Pulse Resp BP Pulse Ox 100.5 F H 83 18 87/58 L 97 03/26/18 08:37 03/26/18 09:01 03/26/18 09:01 03/26/18 09:01 03/26/18 09:01 Intake and Output: 03/26/18 03/26/18 06:59 18:59 Intake Total 2407.5 210 Output Total 560 90 Balance 1847.5 120 - Medications Medications: Current Medications Acetaminophen (Tylenol 325mg Tab) 650 mg PO Q6 PRN PRN Reason: Fever >100.4 F Last Admin: 03/26/18 08:37 Dose: 650 mg Albuterol/Ipratropium (Duoneb 3 Mg/0.5 Mg (3 Ml) Ud) 3 ml INH RQ4 KEV Last Admin: 03/26/18 07:10 Dose: 3 ml Amiodarone HCl (Cordarone) 200 mg PO DAILY [facility] Last Admin: 03/25/18 09:34 Dose: 200 mg Apixaban (Eliquis) 5 mg PO BID KEV Last Admin: 03/24/18 18:27 Dose: 5 mg Furosemide (Lasix) 40 mg IVP Q12 KEV Heparin Sodium (Porcine) (Heparin) 5,000 units SC Q12 KEV Dexmedetomidine HCl 200 mcg/ (Sodium Chloride) 50 mls @ 5.01 mls/hr IV TITR PRN; Protocol PRN Reason: Intubation Last Admin: 03/26/18 06:30 Dose: 0.6 mcg/kg/hr, 15.04 mls/hr Norepinephrine Bitartrate 4 mg (/ Sodium Chloride) 254 mls @ 15.24 mls/hr IV .[id number] PRN; Protocol PRN Reason: TITRATE PER MD ORDER Last Titration: 03/25/18 02:20 Dose: 0 mcg/min, 0 mls/hr Potassium Chloride (Potassium Chloride 20 Meq/100 Ml) 20 meq in 100 mls @ 50 mls/hr IVPB Q2H KEV Stop: 03/26/18 12:44 Midazolam HCl (Versed Inj) 2 mg IVP Q4 PRN PRN Reason: Anxiety Nystatin (Nystop Topical Powder) 1 applic TOP BID [facility] Last Admin: 03/25/18 17:08 Dose: 1 applic Pantoprazole Sodium (Protonix Inj) 40 mg IVP DAILY [facility] Last Admin: 03/25/18 09:34 Dose: 40 mg Silver Sulfadiazine (Silvadene 1% 20 Gm) 0 ea TOP BID [facility] Spironolactone (Aldactone) 25 mg PO Q2D [facility] Last Admin: 03/26/18 06:11 Dose: 25 mg Verapamil HCl (Calan Tab) 40 mg PO Q8H [facility] Last Admin: 03/26/18 09:55 Dose: Not Given - Labs Labs: 03/26/18 06:21 03/26/18 06:21 PT 22.9 SECONDS (9.7-12.2) H 03/26/18 06:23 INR 2.1 03/26/18 06:23 APTT 32 SECONDS (21-34) 03/25/18 08:11 - Constitutional Appears: In Acute Distress - Head Exam Head Exam: ATRAUMATIC - Eye Exam Eye Exam: Conjunctival injection - ENT Exam ENT Exam: Mucous Membranes Moist - Respiratory Exam Respiratory Exam: Decreased Breath Sounds Additional comments: on ventilator - Cardiovascular Exam Cardiovascular Exam: REGULAR RHYTHM - GI/Abdominal Exam GI & Abdominal Exam: Normal Bowel Sounds - Extremities Exam Extremities Exam: Normal Inspection - Skin Skin Exam: Normal Color Assessment and Plan - Assessment and Plan (Free Text) Assessment: ac recurent chf bilateral pleural efusion resp failiur cardiac arrythmia Plan: as per ccu
[2018-03-26] MEDS: Midazolam 2 MG/2 ML VIAL IVP PRN ×4 (11:16→23:00)
[2018-03-26] MEDS: Silver Sulfadiazine 1% Cream (20 gm) TOP SCH ×2 (11:46→17:22)
--- NOTE | 2018-03-26 12:24 | CP.PCM.PN ---
Subjective - Date & Time of Evaluation Date of Evaluation: 03/26/18 Time of Evaluation: 12:24 - Subjective Subjective: Podiatry Progress Note - Dr. Shah 82 year old female patient seen and evaluated at bedside for RLE wounds. [facility] limited, patient intubated and sedated. Objective - Vital Signs/Intake and Output Vital Signs (last 24 hours): Temp Pulse Resp BP Pulse Ox 100.5 F H 83 18 105/78 97 03/26/18 08:37 03/26/18 09:01 03/26/18 09:01 03/26/18 11:43 03/26/18 09:01 Intake and Output: 03/26/18 03/26/18 06:59 18:59 Intake Total 2407.5 596 Output Total 560 225 Balance 1847.5 371 - Medications Medications: Current Medications Acetaminophen (Tylenol 325mg Tab) 650 mg PO Q6 PRN PRN Reason: Fever >100.4 F Last Admin: 03/26/18 08:37 Dose: 650 mg Albuterol/Ipratropium (Duoneb 3 Mg/0.5 Mg (3 Ml) Ud) 3 ml INH RQ4 [facility] Last Admin: 03/26/18 07:10 Dose: 3 ml Amiodarone HCl (Cordarone) 200 mg PO DAILY [facility] Last Admin: 03/26/18 11:45 Dose: 200 mg Apixaban (Eliquis) 5 mg PO BID [facility] Last Admin: 03/24/18 18:27 Dose: 5 mg Furosemide (Lasix) 40 mg IVP Q12 [facility] Last Admin: 03/26/18 11:43 Dose: 40 mg Heparin Sodium (Porcine) (Heparin) 5,000 units SC Q12 [facility] Dexmedetomidine HCl 200 mcg/ (Sodium Chloride) 50 mls @ 5.01 mls/hr IV TITR PRN; Protocol PRN Reason: Intubation Last Admin: 03/26/18 06:30 Dose: 0.6 mcg/kg/hr, 15.04 mls/hr Norepinephrine Bitartrate 4 mg (/ Sodium Chloride) 254 mls @ 15.24 mls/hr IV .[id number] PRN; Protocol PRN Reason: TITRATE PER MD ORDER Last Titration: 03/25/18 02:20 Dose: 0 mcg/min, 0 mls/hr Potassium Chloride (Potassium Chloride 20 Meq/100 Ml) 20 meq in 100 mls @ 50 mls/hr IVPB Q2H [facility] Stop: 03/26/18 12:44 Last Admin: 03/26/18 11:13 Dose: 50 mls/hr Midazolam HCl (Versed Inj) 2 mg IVP Q4 PRN PRN Reason: Anxiety Last Admin: 03/26/18 11:16 Dose: 2 mg Nystatin (Nystop Topical Powder) 1 applic TOP BID [facility] Last Admin: 03/26/18 11:45 Dose: 1 applic Pantoprazole Sodium (Protonix Inj) 40 mg IVP DAILY [facility] Last Admin: 03/26/18 11:13 Dose: 40 mg Silver Sulfadiazine (Silvadene 1% 20 Gm) 0 ea TOP BID [facility] Last Admin: 03/26/18 11:46 Dose: 1 applic Spironolactone (Aldactone) 25 mg PO Q2D [facility] Last Admin: 03/26/18 06:11 Dose: 25 mg Verapamil HCl (Calan Tab) 40 mg PO Q8H [facility] Last Admin: 03/26/18 09:55 Dose: Not Given - Labs Labs: 03/26/18 06:21 03/26/18 06:21 PT 22.9 SECONDS (9.7-12.2) H 03/26/18 06:23 INR 2.1 03/26/18 06:23 APTT 32 SECONDS (21-34) 03/25/18 08:11 - Constitutional Appears: Non-toxic, No Acute Distress - Extremities Exam Additional comments: VASC: Pulses are palpable b/l, Temp gradient cool to cool from proximal to distal, Cap refill time: <3 secs x 10, no edema present. DERM: dry, flaky, hyperkeratotic skin noted to b/l LE distal to the knee joint, no open lesions present, unstageable decubitus ulceration noted to right heel. NEURO: Gross sensation intact b/l ORTHO: No tenderness to palpation noted to lower extremity b/l Assessment and Plan - Assessment and Plan (Free Text) Assessment: 82 year old female with RLE venous stasis wounds Plan: Patient seen and evaluated with attending, Dr. Alyssa LORENZANA, WBC 7.9 Local wound care: xeroform, DSD; LEIDY b/l Right heel wound stable, will continue to monitor Continue multipodus boots at all times in bed Podiatry will continue to follow
--- NOTE | 2018-03-26 12:42 | CP.CCUPN ---
<Margi Valenzuela - Last Filed: 03/26/18 12:35> CCU Subjective - Physician Review Subjective (Free Text): PGY-1 Critical Care Progress Note for Dr. Maya's service Patient seen and examined at bedside. 12 point ROS limited as patient is intubated. FFP transfusion will be done to being thoracentesis procedure today. CCU Objective - Vital Signs / Intake & Output Vital Signs (Last 4 hours): Vital Signs Temp Pulse Resp BP Pulse Ox 03/26/18 12:13 87 18 95/63 L 92 L 03/26/18 12:00 88 19 99 03/26/18 11:43 82 21 105/78 97 03/26/18 11:02 92 H 13 86/52 L 03/26/18 11:00 82 18 03/26/18 10:01 76 21 83/58 L 03/26/18 10:00 72 17 99 03/26/18 09:01 83 18 87/58 L 97 03/26/18 09:00 79 17 99 03/26/18 08:37 100.5 F H Intake and Output (Last 8hrs): Intake & Output 03/25/18 03/26/18 03/26/18 22:59 06:59 14:59 Intake Total 1440.0 1677.5 627 Output Total 340 360 225 Balance 1100.0 1317.5 402 Intake: IV 100 150.0 31 Intake, IV Amount 925.0 982.5 431 Right Internal Jugular 250 lt ij tlc proximal 30 rt ij tlc distal 125.0 132.5 51 rt ij tlc middle 800 850 100 Tube Feeding 415 440 165 Other 105 Output: Urine 340 360 225 Urethral (D[place]) 340 360 225 - Physical Exam Head: Positive for: Atraumatic, Normocephalic Pupils: Positive for: PERRL Extroacular Muscles: Positive for: EOMI Conjunctiva: Positive for: Normal Mouth: Positive for: Dry Neck: Positive for: Normal Range of Motion. Negative for: JVD, Lymphadenopathy Respiratory/Chest: Positive for: Good Air Exchange. Negative for: Respiratory Distress, Accessory Muscle Use, Wheezes, Tachypneic Cardiovascular: Positive for: Regular Rate and Rhythm, Normal S1, S2. Negative for: Murmurs, Irregular Rhythm Abdomen: Positive for: Normal Bowel Sounds. Negative for: Tenderness, Distention, Peritoneal Signs Upper Extremity: Positive for: Normal Inspection. Negative for: Cyanosis, Edema Lower Extremity: Positive for: Normal Inspection. Negative for: Edema Skin: Positive for: Dry, Normal Color. Negative for: Diaphoretic Psychiatric: Positive for: Alert - Medications Active Medications: Active Medications Generic Name Dose Route Start Last Admin Trade Name Freq PRN Reason Stop Dose Admin Acetaminophen 650 mg 03/23/18 15:59 03/26/18 08:37 Tylenol 325mg Tab PO 650 mg Q6 PRN Administration Fever >100.4 F Albuterol/Ipratropium 3 ml 03/23/18 20:00 03/26/18 07:10 Duoneb 3 Mg/0.5 Mg (3 Ml) Ud INH 3 ml RQ4 CAMILLA Administration Amiodarone HCl 200 mg 03/23/18 16:45 03/26/18 11:45 Cordarone PO 200 mg DAILY CAMILLA Administration Apixaban 5 mg 03/23/18 18:00 03/24/18 18:27 Eliquis PO 5 mg BID CAMILLA Administration Furosemide 40 mg 03/26/18 10:00 03/26/18 11:43 Lasix IVP 40 mg Q12 CAMILLA Administration Heparin Sodium (Porcine) 5,000 units 03/26/18 10:00 Heparin SC Q12 CAMILLA Dexmedetomidine HCl 200 mcg/ 50 mls @ 5.01 mls/hr 03/23/18 17:51 03/26/18 06:30 Sodium Chloride IV 0.6 mcg/kg/hr TITR PRN 15.04 mls/hr Intubation Administration Protocol 0.2 MCG/KG/HR Norepinephrine Bitartrate 4 mg 254 mls @ 15.24 mls/hr 03/24/18 10:20 03/26/18 11:30 / Sodium Chloride IV 4 mcg/min .[id number] PRN 15.24 mls/hr TITRATE PER MD ORDER Titration Protocol 4 MCG/MIN Potassium Chloride 20 meq in 100 mls @ 50 mls/hr 03/26/18 08:45 03/26/18 11:13 Potassium Chloride 20 Meq/100 Ml IVPB 03/26/18 12:44 50 mls/hr Q2H CAM[place]A Administration Midazolam HCl 2 mg 03/26/18 09:26 03/26/18 11:16 Versed Inj IVP 2 mg Q4 PRN Administration Anxiety Nystatin 1 applic 03/23/18 18:00 03/26/18 11:45 Nystop Topical Powder TOP 1 applic BID CAMILLA Administration Pantoprazole Sodium 40 mg 03/23/18 17:30 03/26/18 11:13 Protonix Inj IVP 40 mg DAILY CAMILLA Administration Silver Sulfadiazine 0 ea 03/26/18 10:00 03/26/18 11:46 Silvadene 1% 20 Gm TOP 1 applic BID CAMILLA Administration Spironolactone 25 mg 03/24/18 07:00 03/26/18 06:11 Aldactone PO 25 mg Q2D CAM[place]A Administration Verapamil HCl 40 mg 03/23/18 16:45 03/26/18 09:55 Calan Tab PO Not Given Q8H CAMILLA - Patient Studies Lab Studies: Microbiology Studies 03/23/18 08:25 Blood Culture - Preliminary Blood NO GROWTH AFTER 3 DAYS 03/23/18 08:00 Blood Culture - Preliminary Blood NO GROWTH AFTER 3 DAYS 03/23/18 09:14 Urine Culture - Final Urine Yeast Species 03/24/18 05:38 MRSA Culture (Admit) - Final Naris MRSA NOT DETECTED Lab Studies 03/26/18 03/26/18 03/26/18 Range/Units 11:30 06:23 06:21 WBC (4.8-10.8) K/uL RBC (3.80-5.20) Mil/uL Hgb (11.0-16.0) g/dL Hct (34.0-47.0) % MCV (81.0-99.0) fL MCH (27.0-31.0) pg MCHC (33.0-37.0) g/dL RDW (11.5-14.5) % Plt Count (130-400) K/uL MPV (7.2-11.7) fL Neut % (Auto) (50.0-75.0) % Lymph % (Auto) (20.0-40.0) % [place] % (Auto) (0.0-10.0) % Eos % (Auto) (0.0-4.0) % Baso % (Auto) (0.0-2.0) % Neut # (Auto) (1.8-7.0) K/uL Lymph # (Auto) (1.0-4.3) K/uL [place] # (Auto) (0.0-0.8) K/uL Eos # (Auto) (0.0-0.7) K/uL Baso # (Auto) (0.0-0.2) K/uL Neutrophils % (Manual) (50-75) % Lymphocytes % (Manual) (20-40) % Monocytes % (Manual) (0-10) % Eosinophils % (Manual) (0-4) % Platelet Estimate (NORMAL) Hypochromasia (manual) Poikilocytosis (manual Anisocytosis (manual) PT 22.9 H (9.7-12.2) SECONDS INR 2.1 Puncture Site pCO2 (35-45) mm/Hg pO2 (80-100) mm/Hg HCO3 (21-28) mmol/L ABG pH (7.35-7.45) ABG Total CO2 (22-28) mmol/L ABG O2 Saturation (95-98) % ABG Base Excess (-2.0-3.0) mmol/L ABG Hemoglobin (11.7-17.4) g/dL ABG Carboxyhemoglobin (0.5-1.5) % POC ABG HHb (Measured) (0.0-5.0) % ABG Methemoglobin (0.0-3.0) % Pawel Test A-a O2 Difference mm/Hg Respiratory Index Hgb O2 Saturation (95.0-98.0) % Vent Mode Mechanical Rate FiO2 % Tidal Volume PEEP Sodium 144 (132-148) mmol/L Potassium 3.2 L (3.6-5.2) mmol/L Chloride 105 (98-107) mmol/L Carbon Dioxide 34 H (22-30) mmol/L Anion Gap 8 L (10-20) BUN 33 H (7-17) mg/dL Creatinine 0.5 L (0.7-1.2) mg/dL Est GFR ( Amer) > 60 Est GFR (Non-Af Amer) > 60 Random Glucose 163 H D (65-105) mg/dL Calcium 7.7 L (8.6-10.4) mg/dl Phosphorus 2.7 (2.5-4.5) mg/dL Magnesium 2.0 (1.6-2.3) mg/dL Total Bilirubin 1.7 H (0.2-1.3) mg/dL AST 17 (14-36) U/L ALT 23 (9-52) U/L Alkaline Phosphatase 60 (38-126) U/L Total Protein 4.8 L (6.3-8.3) g/dL Albumin 2.3 L (3.5-5.0) g/dL Globulin 2.5 (2.2-3.9) gm/dL Albumin/Globulin Ratio 0.9 L (1.0-2.1) Urine Color (YELLOW) Urine Clarity (Clear) Urine pH (5.0-8.0) Ur Specific Buford (1.003-1.030) Urine Protein (NEGATIVE) mg/dL Urine Glucose (UA) (Normal) mg/dL Urine Ketones (NEGATIVE) mg/dL Urine Blood (NEGATIVE) Urine Nitrate (NEGATIVE) Urine Bilirubin (NEGATIVE) Urine Urobilinogen (0.2-1.0) mg/dL Ur Leukocyte Esterase (Negative) Nehemiah/uL Urine WBC (Auto) (0-5) /hpf Urine RBC (Auto) (0-3) /hpf Uric Acid Crystals (<OCC) /hpf Urine Bacteria (<OCC) Urine Yeast (Budding) (NEGATIVE) /hpf Blood Type A POSITIVE Blood Type Confirm A POSITIVE Antibody Screen Negative 03/26/18 03/26/18 03/25/18 Range/Units 06:21 05:15 16:00 WBC 7.9 (4.8-10.8) K/uL RBC 4.18 (3.80-5.20) Mil/uL Hgb 10.6 L (11.0-16.0) g/dL Hct 34.6 (34.0-47.0) % MCV 82.8 (81.0-99.0) fL MCH 25.4 L (27.0-31.0) pg MCHC 30.6 L (33.0-37.0) g/dL RDW 26.2 H (11.5-14.5) % Plt Count 123 L D (130-400) K/uL MPV 9.0 (7.2-11.7) fL Neut % (Auto) 88.2 H (50.0-75.0) % Lymph % (Auto) 4.9 L (20.0-40.0) % [place] % (Auto) 5.5 (0.0-10.0) % Eos % (Auto) 0.6 (0.0-4.0) % Baso % (Auto) 0.8 (0.0-2.0) % Neut # (Auto) 7.0 (1.8-7.0) K/uL Lymph # (Auto) 0.4 L (1.0-4.3) K/uL [place] # (Auto) 0.4 (0.0-0.8) K/uL Eos # (Auto) 0.0 (0.0-0.7) K/uL Baso # (Auto) 0.1 (0.0-0.2) K/uL Neutrophils % (Manual) 85 H (50-75) % Lymphocytes % (Manual) 9 L (20-40) % Monocytes % (Manual) 5 (0-10) % Eosinophils % (Manual) 1 (0-4) % Platelet Estimate Slightly decreased L (NORMAL) Hypochromasia (manual) Slight Poikilocytosis (manual Slight Anisocytosis (manual) Slight PT (9.7-12.2) SECONDS INR Puncture Site R rad pCO2 39 (35-45) mm/Hg pO2 87 (80-100) mm/Hg HCO3 32.7 H (21-28) mmol/L ABG pH 7.54 H (7.35-7.45) ABG Total CO2 34.5 H (22-28) mmol/L ABG O2 Saturation 99.3 H (95-98) % ABG Base Excess 10.0 H (-2.0-3.0) mmol/L ABG Hemoglobin 10.3 L (11.7-17.4) g/dL ABG Carboxyhemoglobin 2.4 H (0.5-1.5) % POC ABG HHb (Measured) 0.7 (0.0-5.0) % ABG Methemoglobin 1.1 (0.0-3.0) % Pawel Test Pos A-a O2 Difference 221.0 mm/Hg Respiratory Index 2.5 Hgb O2 Saturation 95.7 (95.0-98.0) % Vent Mode Prvc Mechanical Rate 14 FiO2 50.0 % Tidal Volume 420 PEEP 5 Sodium (132-148) mmol/L Potassium (3.6-5.2) mmol/L Chloride (98-107) mmol/L Carbon Dioxide (22-30) mmol/L Anion Gap (10-20) BUN (7-17) mg/dL Creatinine (0.7-1.2) mg/dL Est GFR ( Amer) Est GFR (Non-Af Amer) Random Glucose (65-105) mg/dL Calcium (8.6-10.4) mg/dl Phosphorus (2.5-4.5) mg/dL Magnesium (1.6-2.3) mg/dL Total Bilirubin (0.2-1.3) mg/dL AST (14-36) U/L ALT (9-52) U/L Alkaline Phosphatase (38-126) U/L Total Protein (6.3-8.3) g/dL Albumin (3.5-5.0) g/dL Globulin (2.2-3.9) gm/dL Albumin/Globulin Ratio (1.0-2.1) Urine Color Bertha (YELLOW) Urine Clarity Hazy (Clear) Urine pH 5.0 (5.0-8.0) Ur Specific Buford 1.027 (1.003-1.030) Urine Protein 1+ H (NEGATIVE) mg/dL Urine Glucose (UA) Normal (Normal) mg/dL Urine Ketones 1+ H (NEGATIVE) mg/dL Urine Blood 3+ H (NEGATIVE) Urine Nitrate Negative (NEGATIVE) Urine Bilirubin Negative (NEGATIVE) Urine Urobilinogen 4.0 H (0.2-1.0) mg/dL Ur Leukocyte Esterase 3+ H (Negative) Nehemiah/uL Urine WBC (Auto) 166 H (0-5) /hpf Urine RBC (Auto) 195 H (0-3) /hpf Uric Acid Crystals Occ H (<OCC) /hpf Urine Bacteria Occ H (<OCC) Urine Yeast (Budding) Few H (NEGATIVE) /hpf Blood Type Blood Type Confirm Antibody Screen 03/25/18 Range/Units 15:16 WBC (4.8-10.8) K/uL RBC (3.80-5.20) Mil/uL Hgb (11.0-16.0) g/dL Hct (34.0-47.0) % MCV (81.0-99.0) fL MCH (27.0-31.0) pg MCHC (33.0-37.0) g/dL RDW (11.5-14.5) % Plt Count (130-400) K/uL MPV (7.2-11.7) fL Neut % (Auto) (50.0-75.0) % Lymph % (Auto) (20.0-40.0) % [place] % (Auto) (0.0-10.0) % Eos % (Auto) (0.0-4.0) % Baso % (Auto) (0.0-2.0) % Neut # (Auto) (1.8-7.0) K/uL Lymph # (Auto) (1.0-4.3) K/uL [place] # (Auto) (0.0-0.8) K/uL Eos # (Auto) (0.0-0.7) K/uL Baso # (Auto) (0.0-0.2) K/uL Neutrophils % (Manual) (50-75) % Lymphocytes % (Manual) (20-40) % Monocytes % (Manual) (0-10) % Eosinophils % (Manual) (0-4) % Platelet Estimate (NORMAL) Hypochromasia (manual) Poikilocytosis (manual Anisocytosis (manual) PT (9.7-12.2) SECONDS INR Puncture Site pCO2 (35-45) mm/Hg pO2 (80-100) mm/Hg HCO3 (21-28) mmol/L ABG pH (7.35-7.45) ABG Total CO2 (22-28) mmol/L ABG O2 Saturation (95-98) % ABG Base Excess (-2.0-3.0) mmol/L ABG Hemoglobin (11.7-17.4) g/dL ABG Carboxyhemoglobin (0.5-1.5) % POC ABG HHb (Measured) (0.0-5.0) % ABG Methemoglobin (0.0-3.0) % Pawel Test A-a O2 Difference mm/Hg Respiratory Index Hgb O2 Saturation (95.0-98.0) % Vent Mode Mechanical Rate FiO2 % Tidal Volume PEEP Sodium 142 (132-148) mmol/L Potassium 3.6 (3.6-5.2) mmol/L Chloride 103 (98-107) mmol/L Carbon Dioxide 32 H (22-30) mmol/L Anion Gap 10 (10-20) BUN 35 H (7-17) mg/dL Creatinine 0.6 L (0.7-1.2) mg/dL Est GFR ( Amer) > 60 Est GFR (Non-Af Amer) > 60 Random Glucose 122 H D (65-105) mg/dL Calcium 7.9 L (8.6-10.4) mg/dl Phosphorus 3.5 (2.5-4.5) mg/dL Magnesium 1.8 (1.6-2.3) mg/dL Total Bilirubin 2.0 H (0.2-1.3) mg/dL AST 26 (14-36) U/L ALT 26 (9-52) U/L Alkaline Phosphatase 63 (38-126) U/L Total Protein 5.0 L (6.3-8.3) g/dL Albumin 2.4 L (3.5-5.0) g/dL Globulin 2.6 (2.2-3.9) gm/dL Albumin/Globulin Ratio 0.9 L (1.0-2.1) Urine Color (YELLOW) Urine Clarity (Clear) Urine pH (5.0-8.0) Ur Specific [place] (1.003-1.030) Urine Protein (NEGATIVE) mg/dL Urine Glucose (UA) (Normal) mg/dL Urine Ketones (NEGATIVE) mg/dL Urine Blood (NEGATIVE) Urine Nitrate (NEGATIVE) Urine Bilirubin (NEGATIVE) Urine Urobilinogen (0.2-1.0) mg/dL Ur Leukocyte Esterase (Negative) Nehemiah/uL Urine WBC (Auto) (0-5) /hpf Urine RBC (Auto) (0-3) /hpf Uric Acid Crystals (<OCC) /hpf Urine Bacteria (<OCC) Urine Yeast (Budding) (NEGATIVE) /hpf Blood Type Blood Type Confirm Antibody Screen Laboratory Results - last 24 hr 03/25/18 03/25/18 03/26/18 15:16 16:00 05:15 WBC RBC Hgb Hct MCV MCH MCHC RDW Plt Count MPV Neut % (Auto) Lymph % (Auto) [place] % (Auto) Eos % (Auto) Baso % (Auto) Neut # (Auto) Lymph # (Auto) [place] # (Auto) Eos # (Auto) Baso # (Auto) Neutrophils % (Manual) Lymphocytes % (Manual) Monocytes % (Manual) Eosinophils % (Manual) Platelet Estimate Hypochromasia (manual) Poikilocytosis (manual Anisocytosis (manual) PT INR Puncture Site R rad pCO2 39 pO2 87 HCO3 32.7 H ABG pH 7.54 H ABG Total CO2 34.5 H ABG O2 Saturation 99.3 H ABG Base Excess 10.0 H ABG Hemoglobin 10.3 L ABG Carboxyhemoglobin 2.4 H POC ABG HHb (Measured) 0.7 ABG Methemoglobin 1.1 Pawel Test Pos A-a O2 Difference 221.0 Respiratory Index 2.5 Hgb O2 Saturation 95.7 Vent Mode Prvc Mechanical Rate 14 FiO2 50.0 Tidal Volume 420 PEEP 5 Sodium 142 Potassium 3.6 Chloride 103 Carbon Dioxide 32 H Anion Gap 10 BUN 35 H Creatinine 0.6 L Est GFR ( Amer) > 60 Est GFR (Non-Af Amer) > 60 Random Glucose 122 H D Calcium 7.9 L Phosphorus 3.5 Magnesium 1.8 Total Bilirubin 2.0 H AST 26 ALT 26 Alkaline Phosphatase 63 Total Protein 5.0 L Albumin 2.4 L Globulin 2.6 Albumin/Globulin Ratio 0.9 L Urine Color Bertha Urine Clarity Hazy Urine pH 5.0 Ur Specific Buford 1.027 Urine Protein 1+ H Urine Glucose (UA) Normal Urine Ketones 1+ H Urine Blood 3+ H Urine Nitrate Negative Urine Bilirubin Negative Urine Urobilinogen 4.0 H Ur Leukocyte Esterase 3+ H Urine WBC (Auto) 166 H Urine RBC (Auto) 195 H Uric Acid Crystals Occ H Urine Bacteria Occ H Urine Yeast (Budding) Few H Blood Type Blood Type Confirm Antibody Screen 03/26/18 03/26/18 03/26/18 06:21 06:21 06:23 WBC 7.9 RBC 4.18 Hgb 10.6 L Hct 34.6 MCV 82.8 MCH 25.4 L MCHC 30.6 L RDW 26.2 H Plt Count 123 L D MPV 9.0 Neut % (Auto) 88.2 H Lymph % (Auto) 4.9 L [place] % (Auto) 5.5 Eos % (Auto) 0.6 Baso % (Auto) 0.8 Neut # (Auto) 7.0 Lymph # (Auto) 0.4 L [place] # (Auto) 0.4 Eos # (Auto) 0.0 Baso # (Auto) 0.1 Neutrophils % (Manual) 85 H Lymphocytes % (Manual) 9 L Monocytes % (Manual) 5 Eosinophils % (Manual) 1 Platelet Estimate Slightly decreased L Hypochromasia (manual) Slight Poikilocytosis (manual Slight Anisocytosis (manual) Slight PT 22.9 H INR 2.1 Puncture Site pCO2 pO2 HCO3 ABG pH ABG Total CO2 ABG O2 Saturation ABG Base Excess ABG Hemoglobin ABG Carboxyhemoglobin POC ABG HHb (Measured) ABG Methemoglobin Pawel Test A-a O2 Difference Respiratory Index Hgb O2 Saturation Vent Mode Mechanical Rate FiO2 Tidal Volume PEEP Sodium 144 Potassium 3.2 L Chloride 105 Carbon Dioxide 34 H Anion Gap 8 L BUN 33 H Creatinine 0.5 L Est GFR ( Amer) > 60 Est GFR (Non-Af Amer) > 60 Random Glucose 163 H D Calcium 7.7 L Phosphorus 2.7 Magnesium 2.0 Total Bilirubin 1.7 H AST 17 ALT 23 Alkaline Phosphatase 60 Total Protein 4.8 L Albumin 2.3 L Globulin 2.5 Albumin/Globulin Ratio 0.9 L Urine Color Urine Clarity Urine pH Ur Specific Buf[place] Urine Protein Urine Glucose (UA) Urine Ketones Urine Blood Urine Nitrate Urine Bilirubin Urine Urobilinogen Ur Leukocyte Esterase Urine WBC (Auto) Urine RBC (Auto) Uric Acid Crystals Urine Bacteria Urine Yeast (Budding) Blood Type Blood Type Confirm Antibody Screen 03/26/18 11:30 WBC RBC Hgb Hct MCV MCH MCHC RDW Plt Count MPV Neut % (Auto) Lymph % (Auto) [place] % (Auto) Eos % (Auto) Baso % (Auto) Neut # (Auto) Lymph # (Auto) [place] # (Auto) Eos # (Auto) Baso # (Auto) Neutrophils % (Manual) Lymphocytes % (Manual) Monocytes % (Manual) Eosinophils % (Manual) Platelet Estimate Hypochromasia (manual) Poikilocytosis (manual Anisocytosis (manual) PT INR Puncture Site pCO2 pO2 HCO3 ABG pH ABG Total CO2 ABG O2 Saturation ABG Base Excess ABG Hemoglobin ABG Carboxyhemoglobin POC ABG HHb (Measured) ABG Methemoglobin Pawel Test A-a O2 Difference Respiratory Index Hgb O2 Saturation Vent Mode Mechanical Rate FiO2 Tidal Volume PEEP Sodium Potassium Chloride Carbon Dioxide Anion Gap BUN Creatinine Est GFR ( Amer) Est GFR (Non-Af Amer) Random Glucose Calcium Phosphorus Magnesium Total Bilirubin AST ALT Alkaline Phosphatase Total Protein Albumin Globulin Albumin/Globulin Ratio Urine Color Urine Clarity Urine pH Ur Specific Buford Urine Protein Urine Glucose (UA) Urine Ketones Urine Blood Urine Nitrate Urine Bilirubin Urine Urobilinogen Ur Leukocyte Esterase Urine WBC (Auto) Urine RBC (Auto) Uric Acid Crystals Urine Bacteria Urine Yeast (Budding) Blood Type A POSITIVE Blood Type Confirm A POSITIVE Antibody Screen Negative Radiology Impressions: Radiology Impressions Chest X-Ray 03/25/18 07:00 IMPRESSION: Left IJ approach central venous catheter extends expected location of the brachiocephalic vein/SVC junction. Endotracheal tube terminates approximately 3.6 cm above the fareed. Hazy right greater than left pleural effusions and associated consolidations. Hypoinflation. Right upper lobe granulomatous changes. Chest X-Ray 03/26/18 07:00 IMPRESSION: Little interval change in perihilar airspace disease which may represent pulmonary edema or pneumonia and redemonstration of bilateral effusions. Review of Systems - Review of Systems Systems not reviewed;Unavailable: Intubated Critical Care Progress Note - Ventilator Checklist Head of Bed 30 Degrees: Yes Daily Sedation Vacation: Yes Daily Assessment of Readiness to Wean: Yes Daily Spontaneous Breathing Trial: Yes PUD Prophalyxis: Yes DVT Prophylaxis: Yes Oral Care with Chlorhexidine Gluconate {CHG}: Yes - Vent Settings MODE:: PRVC TIDAL VOLUME:: 420 RESP RATE:: 14 FIO2:: 60 PEEP:: 5 - Extremities/Vascular Does the Patient have a Central Venous Catheter?: Yes Insertion Site: Internal Jugular Vein Does the Patient need a Central Venous Catheter?: Yes Does the Patient have a [place] Catheter?: Yes Does the Patient need a [place] Catheter?: Yes Catheter Insertion Criteria: Need for accurate measurement of output in critically ill patient - Prophylaxis GI Prophylaxis GI: PPI - Prophylaxis DVT Prophylaxis DVT: Heparin SQ - Nutrition Nutrition: Nutrition Category Date Time Status NPO Diet [DIET] Diets 03/24/18 Breakfast Active Assessment/Plan - Assessment and Plan (Free Text) Assessment: Patient is a 82 yo female w/ PMH of CHF, HTN, Afib on AC, and hx of pleural effusions admitted to hospital for bilateral pleural effusions with overlying PNA. Patient was intubated after patient began to respond to only painful stimuli with GCS of 6. Patient is hypotensive and levophed was started with plans for central line and thoracentesis. Patient on Eliquis so procedure is delayed a bit to decrease bleeding risk. Neuro: Alert, Awake, Responsive to verbal and tactile stimuli; On Precedex drip; Pulm: Intubated; On precedex drip (weaning off - will discontinue if patient not agitated) and Versed IV 2mg q4h prn; Cxray shows bilateral pulmonary edema and effusions; Duoneb; Thoracentesis plan for today; Trach asp positive for yeast species Cardio: Hypotensive: Levophed drip; Central line in left IJ vein Hx of Afib: Eliquis 5mg po bid camilla-held; Amiodarone 200mg po daily; Verapamil 40mg po q8h camilla Hx of CHF: Aldactone 25mg q 2 d; Lasix 40mg IV q12 (4 doses) Echo: Shows diastolic dysfunction; With moderate tricuspid regurgitation which can cause possible recurrent edema Etiology for recurrent pleural effusions CHF vs valvulopathy vs Infectious process (less likely) GI: NPO; No acute issues; Protonix 40mg IV daily; On Jevity Tube feeds Endo: No acute issues Heme: Elevated INR; FFP 1 unit given to decrease INR for thoracentesis today Renal: Urine culture positive for yeast species- Fluconazole IVPB; Low potassium repleted with KCl 20meq Derm: Chronic bilateral foot ulcers- Podiatry on board; Sacral ulcer unstageable- Continue wound care recs ID: Consolidations on chest CT concerning for PNA; Currently Afebrile with no elevated WBC; Tylenol 650mg po q6 prn; Vanc/Zosyn and Fluconazole GI PPX: Protonix 40mg IV daily DVT PPX: Eliquis 5mg po bid camilla- held; Heparin 5000 units sc q12h On Jevity Tube feeds <Declan Maya - Last Filed: 03/26/18 17:04> CCU Objective - Vital Signs / Intake & Output Vital Signs (Last 4 hours): Vital Signs Temp Pulse Resp BP Pulse Ox 03/26/18 16:00 83 21 98 03/26/18 15:43 79 18 112/81 95 03/26/18 15:13 80 17 105/76 96 03/26/18 15:00 84 15 98 03/26/18 14:43 82 16 125/94 H 97 03/26/18 14:30 98.9 F 83 14 111/80 100 03/26/18 14:13 83 16 111/80 98 03/26/18 14:00 81 14 99 03/26/18 13:43 80 16 97/69 L 99 03/26/18 13:40 98.9 F 84 14 97/69 L 100 03/26/18 13:37 97/68 L 03/26/18 13:25 98.9 F 84 14 97/68 L 98 03/26/18 13:13 80 15 97/68 L 96 03/26/18 13:11 98.9 F 82 14 96/61 L 100 03/26/18 13:00 92 H 17 98 03/26/18 12:58 87 15 96/61 L Intake and Output (Last 8hrs): Intake & Output 03/26/18 03/26/18 03/26/18 06:59 14:59 22:59 Intake Total 1677.5 1470 156.5 Output Total 360 325 70 Balance 1317.5 1145 86.5 Intake: IV 150.0 173 34 Intake, IV Amount 982.5 607 37.5 Right Internal Jugular 250 lt ij tlc proximal 60 15.0 rt ij tlc distal 132.5 97 22.5 rt ij tlc middle 850 200 Tube Feeding 440 440 85 Blood Product 250 Other 105 Output: Urine 360 325 70 Urethral (Dover) 360 325 70 - Medications Active Medications: Active Medications Generic Name Dose Route Start Last Admin Trade Name Freq PRN Reason Stop Dose Admin Acetaminophen 650 mg 03/23/18 15:59 03/26/18 08:37 Tylenol 325mg Tab PO 650 mg Q6 PRN Administration Fever >100.4 F Albuterol/Ipratropium 3 ml 03/23/18 20:00 03/26/18 15:55 Duoneb 3 Mg/0.5 Mg (3 Ml) Ud INH 3 ml RQ4 CAMILLA Administration Amiodarone HCl 200 mg 03/23/18 16:45 03/26/18 11:45 Cordarone PO 200 mg DAILY CAMILLA Administration Apixaban 5 mg 03/23/18 18:00 03/24/18 18:27 Eliquis PO 5 mg BID CAM[facility] Administration Furosemide 40 mg 03/26/18 10:00 03/26/18 11:43 Lasix IVP 03/27/18 22:01 40 mg Q12 [facility] Administration Heparin Sodium (Porcine) 5,000 units 03/26/18 10:00 03/26/18 15:02 Heparin SC 5,000 units Q12 [facility] Administration Dexmedetomidine HCl 200 mcg/ 50 mls @ 5.01 mls/hr 03/23/18 17:51 03/26/18 15:15 Sodium Chloride IV 0.6 mcg/kg/hr TITR PRN 15.04 mls/hr Intubation Administration Protocol 0.2 MCG/KG/HR Norepinephrine Bitartrate 4 mg 254 mls @ 15.24 mls/hr 03/24/18 10:20 03/26/18 15:13 / Sodium Chloride IV 3 mcg/min .[id number] PRN 11.43 mls/hr TITRATE PER MD ORDER Titration Protocol 4 MCG/MIN Midazolam HCl 2 mg 03/26/18 09:26 03/26/18 11:16 Versed Inj IVP 2 mg Q4 PRN Administration Anxiety Nystatin 1 applic 03/23/18 18:00 03/26/18 11:45 Nystop Topical Powder TOP 1 applic BID [facility]A Administration Pantoprazole Sodium 40 mg 03/23/18 17:30 03/26/18 11:13 Protonix Inj IVP 40 mg DAILY [facility] Administration Silver Sulfadiazine 0 ea 03/26/18 10:00 03/26/18 11:46 Silvadene 1% 20 Gm TOP 1 applic BID [facility]A Administration Spironolactone 25 mg 03/24/18 07:00 03/26/18 06:11 Aldactone PO 25 mg Q2D [facility] Administration Verapamil HCl 40 mg 03/23/18 16:45 03/26/18 09:55 Calan Tab PO Not Given Q8H [facility]ILLA - Patient Studies Lab Studies: Microbiology Studies 03/24/18 11:45 Gram Stain - Final Trachasp Sputum Culture - Final Yeast Species 03/23/18 08:25 Blood Culture - Preliminary Blood NO GROWTH AFTER 3 DAYS 03/23/18 08:00 Blood Culture - Preliminary Blood NO GROWTH AFTER 3 DAYS 03/23/18 09:14 Urine Culture - Final Urine Yeast Species Lab Studies 03/26/18 03/26/18 03/26/18 Range/Units 11:30 06:23 06:21 WBC (4.8-10.8) K/uL RBC (3.80-5.20) Mil/uL Hgb (11.0-16.0) g/dL Hct (34.0-47.0) % MCV (81.0-99.0) fL MCH (27.0-31.0) pg MCHC (33.0-37.0) g/dL RDW (11.5-14.5) % Plt Count (130-400) K/uL MPV (7.2-11.7) fL Neut % (Auto) (50.0-75.0) % Lymph % (Auto) (20.0-40.0) % [place] % (Auto) (0.0-10.0) % Eos % (Auto) (0.0-4.0) % Baso % (Auto) (0.0-2.0) % Neut # (Auto) (1.8-7.0) K/uL Lymph # (Auto) (1.0-4.3) K/uL [place] # (Auto) (0.0-0.8) K/uL Eos # (Auto) (0.0-0.7) K/uL Baso # (Auto) (0.0-0.2) K/uL Neutrophils % (Manual) (50-75) % Lymphocytes % (Manual) (20-40) % Monocytes % (Manual) (0-10) % Eosinophils % (Manual) (0-4) % Platelet Estimate (NORMAL) Hypochromasia (manual) Poikilocytosis (manual Anisocytosis (manual) PT 22.9 H (9.7-12.2) SECONDS INR 2.1 Puncture Site pCO2 (35-45) mm/Hg pO2 (80-100) mm/Hg HCO3 (21-28) mmol/L ABG pH (7.35-7.45) ABG Total CO2 (22-28) mmol/L ABG O2 Saturation (95-98) % ABG Base Excess (-2.0-3.0) mmol/L ABG Hemoglobin (11.7-17.4) g/dL ABG Carboxyhemoglobin (0.5-1.5) % POC ABG HHb (Measured) (0.0-5.0) % ABG Methemoglobin (0.0-3.0) % Pawel Test A-a O2 Difference mm/Hg Respiratory Index Hgb O2 Saturation (95.0-98.0) % Vent Mode Mechanical Rate FiO2 % Tidal Volume PEEP Sodium 144 (132-148) mmol/L Potassium 3.2 L (3.6-5.2) mmol/L Chloride 105 (98-107) mmol/L Carbon Dioxide 34 H (22-30) mmol/L Anion Gap 8 L (10-20) BUN 33 H (7-17) mg/dL Creatinine 0.5 L (0.7-1.2) mg/dL Est GFR ( Amer) > 60 Est GFR (Non-Af Amer) > 60 Random Glucose 163 H D (65-105) mg/dL Calcium 7.7 L (8.6-10.4) mg/dl Phosphorus 2.7 (2.5-4.5) mg/dL Magnesium 2.0 (1.6-2.3) mg/dL Total Bilirubin 1.7 H (0.2-1.3) mg/dL AST 17 (14-36) U/L ALT 23 (9-52) U/L Alkaline Phosphatase 60 (38-126) U/L Total Protein 4.8 L (6.3-8.3) g/dL Albumin 2.3 L (3.5-5.0) g/dL Globulin 2.5 (2.2-3.9) gm/dL Albumin/Globulin Ratio 0.9 L (1.0-2.1) Blood Type A POSITIVE Blood Type Confirm A POSITIVE Antibody Screen Negative 03/26/18 03/26/18 Range/Units 06:21 05:15 WBC 7.9 (4.8-10.8) K/uL RBC 4.18 (3.80-5.20) Mil/uL Hgb 10.6 L (11.0-16.0) g/dL Hct 34.6 (34.0-47.0) % MCV 82.8 (81.0-99.0) fL MCH 25.4 L (27.0-31.0) pg MCHC 30.6 L (33.0-37.0) g/dL RDW 26.2 H (11.5-14.5) % Plt Count 123 L D (130-400) K/uL MPV 9.0 (7.2-11.7) fL Neut % (Auto) 88.2 H (50.0-75.0) % Lymph % (Auto) 4.9 L (20.0-40.0) % [place] % (Auto) 5.5 (0.0-10.0) % Eos % (Auto) 0.6 (0.0-4.0) % Baso % (Auto) 0.8 (0.0-2.0) % Neut # (Auto) 7.0 (1.8-7.0) K/uL Lymph # (Auto) 0.4 L (1.0-4.3) K/uL [place] # (Auto) 0.4 (0.0-0.8) K/uL Eos # (Auto) 0.0 (0.0-0.7) K/uL Baso # (Auto) 0.1 (0.0-0.2) K/uL Neutrophils % (Manual) 85 H (50-75) % Lymphocytes % (Manual) 9 L (20-40) % Monocytes % (Manual) 5 (0-10) % Eosinophils % (Manual) 1 (0-4) % Platelet Estimate Slightly decreased L (NORMAL) Hypochromasia (manual) Slight Poikilocytosis (manual Slight Anisocytosis (manual) Slight PT (9.7-12.2) SECONDS INR Puncture Site R rad pCO2 39 (35-45) mm/Hg pO2 87 (80-100) mm/Hg HCO3 32.7 H (21-28) mmol/L ABG pH 7.54 H (7.35-7.45) ABG Total CO2 34.5 H (22-28) mmol/L ABG O2 Saturation 99.3 H (95-98) % ABG Base Excess 10.0 H (-2.0-3.0) mmol/L ABG Hemoglobin 10.3 L (11.7-17.4) g/dL ABG Carboxyhemoglobin 2.4 H (0.5-1.5) % POC ABG HHb (Measured) 0.7 (0.0-5.0) % ABG Methemoglobin 1.1 (0.0-3.0) % Pawel Test Pos A-a O2 Difference 221.0 mm/Hg Respiratory Index 2.5 Hgb O2 Saturation 95.7 (95.0-98.0) % Vent Mode Prvc Mechanical Rate 14 FiO2 50.0 % Tidal Volume 420 PEEP 5 Sodium (132-148) mmol/L Potassium (3.6-5.2) mmol/L Chloride (98-107) mmol/L Carbon Dioxide (22-30) mmol/L Anion Gap (10-20) BUN (7-17) mg/dL Creatinine (0.7-1.2) mg/dL Est GFR ( Amer) Est GFR (Non-Af Amer) Random Glucose (65-105) mg/dL Calcium (8.6-10.4) mg/dl Phosphorus (2.5-4.5) mg/dL Magnesium (1.6-2.3) mg/dL Total Bilirubin (0.2-1.3) mg/dL AST (14-36) U/L ALT (9-52) U/L Alkaline Phosphatase (38-126) U/L Total Protein (6.3-8.3) g/dL Albumin (3.5-5.0) g/dL Globulin (2.2-3.9) gm/dL Albumin/Globulin Ratio (1.0-2.1) Blood Type Blood Type Confirm Antibody Screen Laboratory Results - last 24 hr 03/26/18 03/26/18 03/26/18 05:15 06:21 06:21 WBC 7.9 RBC 4.18 Hgb 10.6 L Hct 34.6 MCV 82.8 MCH 25.4 L MCHC 30.6 L RDW 26.2 H Plt Count 123 L D MPV 9.0 Neut % (Auto) 88.2 H Lymph % (Auto) 4.9 L [place] % (Auto) 5.5 Eos % (Auto) 0.6 Baso % (Auto) 0.8 Neut # (Auto) 7.0 Lymph # (Auto) 0.4 L [place] # (Auto) 0.4 Eos # (Auto) 0.0 Baso # (Auto) 0.1 Neutrophils % (Manual) 85 H Lymphocytes % (Manual) 9 L Monocytes % (Manual) 5 Eosinophils % (Manual) 1 Platelet Estimate Slightly decreased L Hypochromasia (manual) Slight Poikilocytosis (manual Slight Anisocytosis (manual) Slight PT INR Puncture Site R rad pCO2 39 pO2 87 HCO3 32.7 H ABG pH 7.54 H ABG Total CO2 34.5 H ABG O2 Saturation 99.3 H ABG Base Excess 10.0 H ABG Hemoglobin 10.3 L ABG Carboxyhemoglobin 2.4 H POC ABG HHb (Measured) 0.7 ABG Methemoglobin 1.1 Pawel Test Pos A-a O2 Difference 221.0 Respiratory Index 2.5 Hgb O2 Saturation 95.7 Vent Mode Prvc Mechanical Rate 14 FiO2 50.0 Tidal Volume 420 PEEP 5 Sodium 144 Potassium 3.2 L Chloride 105 Carbon Dioxide 34 H Anion Gap 8 L BUN 33 H Creatinine 0.5 L Est GFR ( Amer) > 60 Est GFR (Non-Af Amer) > 60 Random Glucose 163 H D Calcium 7.7 L Phosphorus 2.7 Magnesium 2.0 Total Bilirubin 1.7 H AST 17 ALT 23 Alkaline Phosphatase 60 Total Protein 4.8 L Albumin 2.3 L Globulin 2.5 Albumin/Globulin Ratio 0.9 L Blood Type Blood Type Confirm Antibody Screen 03/26/18 03/26/18 06:23 11:30 WBC RBC Hgb Hct MCV MCH MCHC RDW Plt Count MPV Neut % (Auto) Lymph % (Auto) [place] % (Auto) Eos % (Auto) Baso % (Auto) Neut # (Auto) Lymph # (Auto) [place] # (Auto) Eos # (Auto) Baso # (Auto) Neutrophils % (Manual) Lymphocytes % (Manual) Monocytes % (Manual) Eosinophils % (Manual) Platelet Estimate Hypochromasia (manual) Poikilocytosis (manual Anisocytosis (manual) PT 22.9 H INR 2.1 Puncture Site pCO2 pO2 HCO3 ABG pH ABG Total CO2 ABG O2 Saturation ABG Base Excess ABG Hemoglobin ABG Carboxyhemoglobin POC ABG HHb (Measured) ABG Methemoglobin Pawel Test A-a O2 Difference Respiratory Index Hgb O2 Saturation Vent Mode Mechanical Rate FiO2 Tidal Volume PEEP Sodium Potassium Chloride Carbon Dioxide Anion Gap BUN Creatinine Est GFR ( Amer) Est GFR (Non-Af Amer) Random Glucose Calcium Phosphorus Magnesium Total Bilirubin AST ALT Alkaline Phosphatase Total Protein Albumin Globulin Albumin/Globulin Ratio Blood Type A POSITIVE Blood Type Confirm A POSITIVE Antibody Screen Negative Radiology Impressions: Radiology Impressions Chest X-Ray 03/26/18 07:00 IMPRESSION: Little interval change in perihilar airspace disease which may represent pulmonary edema or pneumonia and redemonstration of bilateral effusions. Critical Care Progress Note - Nutrition Nutrition: Nutrition Category Date Time Status NPO Diet [DIET] Diets 03/24/18 Breakfast Active Attending/Attestation - Attestation I have personally seen and examined this patient.: Yes I have fully participated in the care of the patient.: Yes I have reviewed all pertinent clinical information: Yes Notes (Text): 03/26/18 16:51 I have seen and examined the patient. Medical records, lab studies, and imaging were reviewed by me and a management plan was formulated on multidisciplinary rounds with resident Dr. Valenzuela. I agree with their documented assessment and plan. Patient needs more diuresis and right thoracentesis is planned. Patient is severly volume overloaded. Echo shows severe TR, which is possibly leading to RV failure with concomitant diastolic heart failure. Stopping sedation. Critical Care Time 35 minutes. Multi-disciplinary rounds were performed with house staff, nursing, speech therapy, respiratory therapy, pharmacy and nutrition with integrated input from the primary team/attending and other consulting services. The documented time is cumulative and includes review of patient data/exams/labs/chart review and examination of the patient on rounds and throughout the day; time is exclusive of any procedures or teaching time.
--- NOTE | 2018-03-26 13:25 | CP.PCM.PN ---
Subjective - Date & Time of Evaluation Date of Evaluation: 03/26/18 Time of Evaluation: 12:20 - Subjective Subjective: 82 year old female with pmh copd, a fib, chf, htn, and dementia. Examined at bedside. No acute distress. Afebrile. Intubated. Good air exchange. CXR 03/26 showed no pneumothorax, ETT and NGT in position, bilateral pleural effusions with bibasilar compressive atelectasis similar to previous studies, limited change in perihilar airspace disease which may represent pulmonary edema or pneumonia. Patient requires thoracocentesis for pleural effusion seen on CXR. 03/26 INR 2.1 Chest tube insertion today for pleural effusion after 2 FFP. Continue Antibiotics Continue ventilatory support Sedation Feeding Objective - Vital Signs/Intake and Output Vital Signs (last 24 hours): Temp Pulse Resp BP Pulse Ox 100.5 F H 92 H 17 96/61 L 98 03/26/18 08:37 03/26/18 13:00 03/26/18 13:00 03/26/18 12:58 03/26/18 13:00 Intake and Output: 03/26/18 03/26/18 06:59 18:59 Intake Total 2407.5 1104 Output Total 560 285 Balance 1847.5 819 - Medications Medications: Current Medications Acetaminophen (Tylenol 325mg Tab) 650 mg PO Q6 PRN PRN Reason: Fever >100.4 F Last Admin: 03/26/18 08:37 Dose: 650 mg Albuterol/Ipratropium (Duoneb 3 Mg/0.5 Mg (3 Ml) Ud) 3 ml INH RQ4 [facility] Last Admin: 03/26/18 07:10 Dose: 3 ml Amiodarone HCl (Cordarone) 200 mg PO DAILY [facility] Last Admin: 03/26/18 11:45 Dose: 200 mg Apixaban (Eliquis) 5 mg PO BID [facility] Last Admin: 03/24/18 18:27 Dose: 5 mg Furosemide (Lasix) 40 mg IVP Q12 [facility] Stop: 03/27/18 22:01 Last Admin: 03/26/18 11:43 Dose: 40 mg Heparin Sodium (Porcine) (Heparin) 5,000 units SC Q12 K[facility] Dexmedetomidine HCl 200 mcg/ (Sodium Chloride) 50 mls @ 5.01 mls/hr IV TITR PRN; Protocol PRN Reason: Intubation Last Titration: 03/26/18 13:01 Dose: 0.8 mcg/kg/hr, 20.05 mls/hr Norepinephrine Bitartrate 4 mg (/ Sodium Chloride) 254 mls @ 15.24 mls/hr IV .[id number] PRN; Protocol PRN Reason: TITRATE PER MD ORDER Last Titration: 03/26/18 12:00 Dose: Infused Midazolam HCl (Versed Inj) 2 mg IVP Q4 PRN PRN Reason: Anxiety Last Admin: 03/26/18 11:16 Dose: 2 mg Nystatin (Nystop Topical Powder) 1 applic TOP BID [facility] Last Admin: 03/26/18 11:45 Dose: 1 applic Pantoprazole Sodium (Protonix Inj) 40 mg IVP DAILY [facility] Last Admin: 03/26/18 11:13 Dose: 40 mg Silver Sulfadiazine (Silvadene 1% 20 Gm) 0 ea TOP BID [facility] Last Admin: 03/26/18 11:46 Dose: 1 applic Spironolactone (Aldactone) 25 mg PO Q2D [facility] Last Admin: 03/26/18 06:11 Dose: 25 mg Verapamil HCl (Calan Tab) 40 mg PO Q8H [facility] Last Admin: 03/26/18 09:55 Dose: Not Given - Labs Labs: 03/26/18 06:21 03/26/18 06:21 PT 22.9 SECONDS (9.7-12.2) H 03/26/18 06:23 INR 2.1 03/26/18 06:23 APTT 32 SECONDS (21-34) 03/25/18 08:11
--- NOTE | 2018-03-26 17:28 | CP.PCM.PN ---
Subjective - Date & Time of Evaluation Date of Evaluation: 03/26/18 Time of Evaluation: 17:25 - Subjective Subjective: Still intubated and sedated. Family bed side. Objective - Vital Signs/Intake and Output Vital Signs (last 24 hours): Temp Pulse Resp BP Pulse Ox 98.9 F 82 21 112/82 99 03/26/18 14:30 03/26/18 17:00 03/26/18 17:00 03/26/18 16:43 03/26/18 17:00 Intake and Output: 03/26/18 03/26/18 06:59 18:59 Intake Total 2407.5 1702.9 Output Total 560 435 Balance 1847.5 1267.9 - Medications Medications: Current Medications Acetaminophen (Tylenol 325mg Tab) 650 mg PO Q6 PRN PRN Reason: Fever >100.4 F Last Admin: 03/26/18 08:37 Dose: 650 mg Albuterol/Ipratropium (Duoneb 3 Mg/0.5 Mg (3 Ml) Ud) 3 ml INH RQ4 KEV Last Admin: 03/26/18 15:55 Dose: 3 ml Amiodarone HCl (Cordarone) 200 mg PO DAILY [facility] Last Admin: 03/26/18 11:45 Dose: 200 mg Apixaban (Eliquis) 5 mg PO BID [facility] Last Admin: 03/24/18 18:27 Dose: 5 mg Furosemide (Lasix) 40 mg IVP Q12 [facility] Stop: 03/27/18 22:01 Last Admin: 03/26/18 11:43 Dose: 40 mg Heparin Sodium (Porcine) (Heparin) 5,000 units SC Q12 [facility] Last Admin: 03/26/18 15:02 Dose: 5,000 units Dexmedetomidine HCl 200 mcg/ (Sodium Chloride) 50 mls @ 5.01 mls/hr IV TITR PRN; Protocol PRN Reason: Intubation Last Titration: 03/26/18 17:06 Dose: 0.3 mcg/kg/hr, 7.52 mls/hr Norepinephrine Bitartrate 4 mg (/ Sodium Chloride) 254 mls @ 15.24 mls/hr IV .[id number] PRN; Protocol PRN Reason: TITRATE PER MD ORDER Last Titration: 03/26/18 15:13 Dose: 3 mcg/min, 11.43 mls/hr Midazolam HCl (Versed Inj) 2 mg IVP Q4 PRN PRN Reason: Anxiety Last Admin: 03/26/18 17:19 Dose: 2 mg Nystatin (Nystop Topical Powder) 1 applic TOP BID [facility] Last Admin: 03/26/18 17:21 Dose: 1 applic Pantoprazole Sodium (Protonix Inj) 40 mg IVP DAILY [facility] Last Admin: 03/26/18 11:13 Dose: 40 mg Silver Sulfadiazine (Silvadene 1% 20 Gm) 0 ea TOP BID [facility] Last Admin: 03/26/18 17:22 Dose: Not Given Spironolactone (Aldactone) 25 mg PO Q2D [facility] Last Admin: 03/26/18 06:11 Dose: 25 mg Verapamil HCl (Calan Tab) 40 mg PO Q8H [facility] Last Admin: 03/26/18 17:03 Dose: Not Given - Labs Labs: 03/26/18 06:21 03/26/18 06:21 PT 22.9 SECONDS (9.7-12.2) H 03/26/18 06:23 INR 2.1 03/26/18 06:23 APTT 32 SECONDS (21-34) 03/25/18 08:11 - Head Exam Head Exam: NORMOCEPHALIC - Neck Exam Neck Exam: Normal Inspection - Respiratory Exam Additional comments: Intubated - Cardiovascular Exam Cardiovascular Exam: Irregular Rhythm - Back Exam Back Exam: NORMAL INSPECTION - Neurological Exam Additional comments: sedated. Assessment and Plan (1) Atrial fibrillation and flutter Assessment & Plan: Rate controlled, Continue current care. Status: Acute (2) CHF (congestive heart failure) Assessment & Plan: Bilateral pleural effusion, need fluid removal. diuretics. Fluid restriction. Maintain electrolyte balance. Status: Acute
--- NOTE | 2018-03-26 18:16 | CP.PCM.CON ---
History of Present Illness - History of Present Illness History of Present Illness: 2nd opinion for recurrent pleural effusions / ? CHF vs. pulmonary etiology HPI: 82-year-old female being called for second opinion regarding recurrent pleural effusions patient admitted from the rehab facility for lethargy and dyspnea patient initially placed on BiPAP in the field and was noted to be lethargic as per records of the EMS and review of electronic medical records. Patient's initial chest x-ray showed bilateral pleural effusions with compressive atelectasis. Underwent a CT of the chest showing severe bilateral effusions also [place] coronary artery calcifications along with atherosclerotic calcification of the aorta. Patient was intubated in the ICU after arrival cardiology had evaluated the patient and patient underwent a transesophageal echocardiogram. She does have history of atrial fibrillation echocardiogram shows normal ejection fraction with severe enlargement of bilateral atria consistent with underlying diastolic dysfunction and severe pulmonary hypertension RV systolic pressures secondary history of severe tricuspid regurgitation are in the 50s-60s range with septal flattening suggestive of possible underlying cor pulmonale contributing to her symptoms patient on initial presentation was mildly hypertensive pointing to a possible reverse Bernheim effect with decreased cardiac output secondary to elevated filling pressures in the right side. Last NT proBNP on presentation was 7000 which is mildly improved from her last discharge NT proBNP which was at 10,000 she was intubated on on sedated O's. Most of these information has been obtained via review of the electronic medical record. Review of Systems - Review of Systems Systems not reviewed;Unavailable: Acuity of Condition - Constitutional Constitutional: As Per HPI - EENT Eyes: As Per HPI Ears: As Per HPI Nose/Mouth/Throat: As Per HPI - Breasts Breasts: As Per HPI - Cardiovascular Cardiovascular: As Per HPI - Respiratory Respiratory: As Per HPI - Gastrointestinal Gastrointestinal: As Per HPI - Genitourinary Genitourinary: As Per HPI - Reproductive: Female Reproductive:Female: As Per HPI - Menstruation Menstruation: As Per HPI - Musculoskeletal Musculoskeletal: As Per HPI - Integumentary Integumentary: As Per HPI - Neurological Neurological: As Per HPI - Psychiatric Psychiatric: As Per HPI - Endocrine Endocrine: As Per HPI - Hematologic/Lymphatic Hematologic: As Per HPI Past Patient History - Infectious Disease Hx of Infectious Diseases: None - Tetanus Immunizations Tetanus Immunization: Unknown - Past Medical History & Family History Past Medical History?: Yes - Past Social History Smoking Status: Never Smoked - CARDIAC Hx Atrial Fibrillation: Yes Hx Congestive Heart Failure: Yes - PULMONARY Hx Chronic Obstructive Pulmonary Disease (COPD): Yes - NEUROLOGICAL Hx Dementia: Yes - ENDOCRINE/METABOLIC Hx Endocrine Disorders: No - HEMATOLOGICAL/ONCOLOGICAL Hx Blood Disorders: No - INTEGUMENTARY Other/Comment: weeping edema, on bilateral lower ext - MUSCULOSKELETAL/RHEUMATOLOGICAL Hx Falls: Yes - GASTROINTESTINAL Hx Gastrointestinal Disorders: No - GENITOURINARY/GYNECOLOGICAL Hx Genitourinary Disorders: No - PSYCHIATRIC Hx Substance Use: No - SURGICAL HISTORY Hx Surgeries: No - ANESTHESIA Hx Anesthesia: Yes Meds Allergies/Adverse Reactions: Allergies Allergy/AdvReac Type Severity Reaction Status Date / Time warfarin [From Coumadin] Allergy Verified 03/23/18 08:16 - Medications Medications: Current Medications Acetaminophen (Tylenol 325mg Tab) 650 mg PO Q6 PRN PRN Reason: Fever >100.4 F Last Admin: 03/26/18 08:37 Dose: 650 mg Albuterol/Ipratropium (Duoneb 3 Mg/0.5 Mg (3 Ml) Ud) 3 ml INH RQ4 KEV Last Admin: 03/26/18 15:55 Dose: 3 ml Amiodarone HCl (Cordarone) 200 mg PO DAILY [facility] Last Admin: 03/26/18 11:45 Dose: 200 mg Apixaban (Eliquis) 5 mg PO BID [facility] Last Admin: 03/24/18 18:27 Dose: 5 mg Furosemide (Lasix) 40 mg IVP Q12 [facility] Stop: 03/27/18 22:01 Last Admin: 03/26/18 11:43 Dose: 40 mg Heparin Sodium (Porcine) (Heparin) 5,000 units SC Q12 [facility] Last Admin: 03/26/18 15:02 Dose: 5,000 units Dexmedetomidine HCl 200 mcg/ (Sodium Chloride) 50 mls @ 5.01 mls/hr IV TITR PRN; Protocol PRN Reason: Intubation Last Titration: 03/26/18 17:06 Dose: 0.3 mcg/kg/hr, 7.52 mls/hr Norepinephrine Bitartrate 4 mg (/ Sodium Chloride) 254 mls @ 15.24 mls/hr IV .[id number] PRN; Protocol PRN Reason: TITRATE PER MD ORDER Last Titration: 03/26/18 15:13 Dose: 3 mcg/min, 11.43 mls/hr Potassium Chloride (Potassium Chloride 20 Meq/100 Ml) 20 meq in 100 mls @ 50 mls/hr IVPB Q2H [facility] Stop: 03/26/18 21:29 Last Admin: 03/26/18 17:56 Dose: 50 mls/hr Midazolam HCl (Versed Inj) 2 mg IVP Q4 PRN PRN Reason: Anxiety Last Admin: 03/26/18 11:16 Dose: 2 mg Nystatin (Nystop Topical Powder) 1 applic TOP BID [facility] Last Admin: 03/26/18 17:21 Dose: 1 applic Pantoprazole Sodium (Protonix Inj) 40 mg IVP DAILY [facility] Last Admin: 03/26/18 11:13 Dose: 40 mg Silver Sulfadiazine (Silvadene 1% 20 Gm) 0 ea TOP BID [facility] Last Admin: 03/26/18 17:22 Dose: Not Given Spironolactone (Aldactone) 25 mg PO Q2D [facility] Last Admin: 03/26/18 06:11 Dose: 25 mg Verapamil HCl (Calan Tab) 40 mg PO Q8H [facility] Last Admin: 03/26/18 17:03 Dose: Not Given Physical Exam - Constitutional Appears: Chronically Ill - Head Exam Head Exam: ATRAUMATIC, NORMAL INSPECTION, NORMOCEPHALIC - Eye Exam Eye Exam: EOMI, Normal appearance, PERRL Pupil Exam: NORMAL ACCOMODATION, PERRL - ENT Exam ENT Exam: Mucous Membranes Moist, Normal Exam - Neck Exam Neck exam: Positive for: Normal Inspection - Respiratory Exam Respiratory Exam: Decreased Breath Sounds, Clear to Auscultation Bilateral, NORMAL BREATHING PATTERN - Cardiovascular Exam Cardiovascular Exam: REGULAR RHYTHM - GI/Abdominal Exam GI & Abdominal Exam: Normal Bowel Sounds, Soft. absent: Tenderness - Rectal Exam Rectal Exam: NORMAL INSPECTION - Exam Exam: Circumcision, NORMAL INSPECTION External exam: NORMAL EXTERNAL EXAM Speculum exam: NORMAL SPECULUM EXAM Bimanual exam: NORMAL BIMANUAL EXAM - Extremities Exam Extremities exam: Positive for: normal inspection - Back Exam Back exam: NORMAL INSPECTION - Neurological Exam Neurological exam: Alert, CN II-XII Intact, Normal Gait, Oriented x3, Reflexes Normal - Psychiatric Exam Psychiatric exam: Normal Affect, Normal Mood - Skin Skin Exam: Dry, Intact, Normal Color, Warm Results - Vital Signs Recent Vital Signs: Last Vital Signs Temp 98.9 F 03/26/18 14:30 Pulse 82 03/26/18 17:00 Resp 21 03/26/18 17:00 BP 112/82 03/26/18 16:43 Pulse Ox 99 03/26/18 17:00 - Labs Result Diagrams: 03/26/18 06:21 03/26/18 06:21 Labs: Laboratory Results - last 24 hr 03/26/18 03/26/18 03/26/18 05:15 06:21 06:21 WBC 7.9 RBC 4.18 Hgb 10.6 L Hct 34.6 MCV 82.8 MCH 25.4 L MCHC 30.6 L RDW 26.2 H Plt Count 123 L D MPV 9.0 Neut % (Auto) 88.2 H Lymph % (Auto) 4.9 L [place] % (Auto) 5.5 Eos % (Auto) 0.6 Baso % (Auto) 0.8 Neut # (Auto) 7.0 Lymph # (Auto) 0.4 L [place] # (Auto) 0.4 Eos # (Auto) 0.0 Baso # (Auto) 0.1 Neutrophils % (Manual) 85 H Lymphocytes % (Manual) 9 L Monocytes % (Manual) 5 Eosinophils % (Manual) 1 Platelet Estimate Slightly decreased L Hypochromasia (manual) Slight Poikilocytosis (manual Slight Anisocytosis (manual) Slight PT INR Puncture Site R rad pCO2 39 pO2 87 HCO3 32.7 H ABG pH 7.54 H ABG Total CO2 34.5 H ABG O2 Saturation 99.3 H ABG Base Excess 10.0 H ABG Hemoglobin 10.3 L ABG Carboxyhemoglobin 2.4 H POC ABG HHb (Measured) 0.7 ABG Methemoglobin 1.1 Pawel Test Pos A-a O2 Difference 221.0 Respiratory Index 2.5 Hgb O2 Saturation 95.7 Vent Mode Prvc Mechanical Rate 14 FiO2 50.0 Tidal Volume 420 PEEP 5 Sodium 144 Potassium 3.2 L Chloride 105 Carbon Dioxide 34 H Anion Gap 8 L BUN 33 H Creatinine 0.5 L Est GFR ( Amer) > 60 Est GFR (Non-Af Amer) > 60 Random Glucose 163 H D Calcium 7.7 L Phosphorus 2.7 Magnesium 2.0 Total Bilirubin 1.7 H AST 17 ALT 23 Alkaline Phosphatase 60 Total Protein 4.8 L Albumin 2.3 L Globulin 2.5 Albumin/Globulin Ratio 0.9 L Blood Type Blood Type Confirm Antibody Screen 03/26/18 03/26/18 06:23 11:30 WBC RBC Hgb Hct MCV MCH MCHC RDW Plt Count MPV Neut % (Auto) Lymph % (Auto) [place] % (Auto) Eos % (Auto) Baso % (Auto) Neut # (Auto) Lymph # (Auto) [place] # (Auto) Eos # (Auto) Baso # (Auto) Neutrophils % (Manual) Lymphocytes % (Manual) Monocytes % (Manual) Eosinophils % (Manual) Platelet Estimate Hypochromasia (manual) Poikilocytosis (manual Anisocytosis (manual) PT 22.9 H INR 2.1 Puncture Site pCO2 pO2 HCO3 ABG pH ABG Total CO2 ABG O2 Saturation ABG Base Excess ABG Hemoglobin ABG Carboxyhemoglobin POC ABG HHb (Measured) ABG Methemoglobin Pawel Test A-a O2 Difference Respiratory Index Hgb O2 Saturation Vent Mode Mechanical Rate FiO2 Tidal Volume PEEP Sodium Potassium Chloride Carbon Dioxide Anion Gap BUN Creatinine Est GFR ( Amer) Est GFR (Non-Af Amer) Random Glucose Calcium Phosphorus Magnesium Total Bilirubin AST ALT Alkaline Phosphatase Total Protein Albumin Globulin Albumin/Globulin Ratio Blood Type A POSITIVE Blood Type Confirm A POSITIVE Antibody Screen Negative Assessment & Plan (1) Acute respiratory failure Assessment and Plan: Etiology of respiratory failure is most likely secondary to compression atelectasis and severe bilateral pleural effusions. In the setting of atrial fibrillation and severe biatrial enlargement etiology can either be secondary to elevated filling pressures from diastolic CHF versus intrinsic pulmonary patholo gy I would recommend to place a [place] catheter for estimation of the filling pressures to differentiate the etiology of her clinical presentation. Status: Acute (2) Atrial fibrillation and flutter Status: Acute (3) CHF (congestive heart failure) Assessment and Plan: Echocardiogram and transesophageal echocardiogram done recently by Dr. Chavez shows thickened ventricle with severe biatrial enlargement suggestive of underlying diastolic dysfunction filling pressures are underestimated secondary to placement of the probe at the mitral mid medial mitral annulus. Right-sided pressures are severely elevated consistent with possible 0 point hypertension along with septal flattening. Status: Acute (4) Pleural effusion Status: Acute
[2018-03-26] MEDS ORDERED: HYDROmorphone 0.5 mg/0.5 ml ISec IVP STA (20:15)
[2018-03-27 03:15] LABS: URINE BACTERIA RARE (<OCC); URINE BILIRUBIN NEGATIVE (NEGATIVE); URINE BLOOD 2+ (NEGATIVE); URINE CLARITY Hazy (Clear); URINE COLOR Amber (YELLOW); URINE GLUCOSE (UA) NORMAL (Normal); URINE HYALINE CAST >20 /lpf (0-2); URINE LEUKOCYTE ESTERASE 3+ Leu/uL (Negative); URINE PROTEIN NEGATIVE (NEGATIVE)
[2018-03-27] MEDS: Albuterol-Ipratrop 3 mg / 0.5 (3 ml) UD INH SCH ×5 (03:15→19:35)
[2018-03-27] MEDS: Midazolam 2 MG/2 ML VIAL IVP PRN ×2 (03:26→08:06)
[2018-03-27 04:40] LABS: ABG ALLEN TEST POS; ARTERIAL BLOOD GAS HCO3 33.3 mmol/L (21-28); ARTERIAL BLOOD GAS HEMOGLOBIN 10.4 g/dL (11.7-17.4); ARTERIAL BLOOD GAS O2 SAT 99.1 % (95-98); ARTERIAL BLOOD GAS PCO2 49 mm/Hg (35-45); ARTERIAL BLOOD GAS PH 7.47 (7.35-7.45); ARTERIAL BLOOD GAS PO2 99 mm/Hg (80-100); ARTERIAL BLOOD GAS TCO2 37.2 mmol/L (22-28)
[2018-03-27] MEDS ORDERED: HYDROmorphone 0.5 mg/0.5 ml ISec IVP STA ×4 (05:34→23:08)
[2018-03-27 06:31] LABS: BASO % 0.4 % (0.0-2.0); EOS % 0.1 % (0.0-4.0); HEMOGLOBIN 10.2 g/dL (11.0-16.0); LYMPH # 0.9 K/uL (1.0-4.3); LYMPH % 8.1 % (20.0-40.0); MEAN CELL VOLUME 83.1 fL (81.0-99.0); MEAN CORPUSCULAR HEMOGLOBIN 25.5 pg (27.0-31.0); MEAN CORPUSCULAR HGB CONC 30.7 g/dL (33.0-37.0); MEAN PLATELET VOLUME 9.7 fL (7.2-11.7); MONO # 0.6 K/uL (0.0-0.8); MONO % 5.3 % (0.0-10.0); NEUT # 9.4 K/uL (1.8-7.0); NEUT % 86.1 % (50.0-75.0); NRBC % 0.1 % (0.0-2.0); PLATELET COUNT 134 K/uL (130-400); RED CELL DISTRIBUTION WIDTH 26.3 % (11.5-14.5); WHITE BLOOD COUNT 10.9 K/uL (4.8-10.8)
[2018-03-27 06:33] LABS: INR 2.2; PROTHROMBIN TIME 24.3 SECONDS (9.7-12.2)
[2018-03-27 06:59] LABS: ALBUMIN 2.6 g/dL (3.5-5.0); ALT/SGPT 24 U/L (9-52); AST/SGOT 11 U/L (14-36); BLOOD UREA NITROGEN 35 mg/dL (7-17); CALCIUM 7.8 mg/dl (8.6-10.4); GFR NON-AFRICAN AMERICAN > 60
--- NOTE | 2018-03-27 08:11 | CP.CCUPN ---
CCU Subjective - Physician Review Events Since Last Encounter (Free Text): 03/27/18 08:09 Last night events noted. Patient had agitations. Also had a fever episode last night. Patient is currently on ventilator. FiO2 40%. Levophed 6 mics running. On examination: Hypotensive. Saturation 100% Blood pressure 114/77 Patient is still having some positive balance. Patient has INR 2.0 today. On examination: Patient is arousable but sedated. Chest bilateral good air entry, decreased air entry in the lower lung cavazos no nilesh Regular heart sounds noted. Abdomen soft. Edema noted bilaterally in the legs Patient has a positive balance almost to 3 L Patient's labs reviewed WBC 10.9 platelet 134 BUN 35 creatinine 0.6 INR is 2.2 noted blood gas analysis showing evidence of pH of 7.47 PO2 99 Chest x-ray bilateral effusion noted Had a echocardiogram which was done in February 2018 showing evidence of normal LV systolic function Assessment and recommendation: Patient is a 82-year-old female with a history of heart failure, diastolic heart failure most likely, hypertension, aortic atrial fibrillation admitted with a acute respiratory failure Patient has a bilateral pleural effusion Also patient has a significant coagulopathy. Patient is a good candidate for gradual drainage of the thoracic pleural fluid. will plan the pigtail catheter insertion by interventional radiology. Correct the INR. on ventilator at this time. Maintain negative balance. Also patient is having right now likely fever with increased secretions from the tracheal tube. possible pneumonia We will get infectious disease evaluation. We will follow the culture. And will start the patient on empirical antibiotic. CCU Objective - Vital Signs / Intake & Output Vital Signs (Last 4 hours): Vital Signs Pulse Resp BP Pulse Ox 03/27/18 08:00 94 H 16 100 03/27/18 07:49 85 16 114/77 97 03/27/18 07:43 81 16 114/77 99 03/27/18 07:13 81 16 121/84 100 03/27/18 07:00 82 18 99 03/27/18 06:43 82 19 115/84 99 03/27/18 06:13 78 18 112/79 96 03/27/18 06:00 90 18 100 03/27/18 05:48 98 H 17 102/72 95 03/27/18 05:13 85 19 100/79 96 03/27/18 05:00 84 16 98 03/27/18 04:43 87 15 100/71 99 03/27/18 04:13 83 17 110/71 99 Intake and Output (Last 8hrs): Intake & Output 03/26/18 03/27/18 03/27/18 22:59 06:59 14:59 Intake Total 650.5 490.0 272.5 Output Total 180 255 0 Balance 470.5 235.0 272.5 Weight 223 lb 12.8 oz Intake: IV 54 220 Intake, IV Amount 331.5 150.0 22.5 lt ij tlc proximal 101.5 150.0 22.5 rt ij tlc distal 30.0 rt ij tlc middle 200 Tube Feeding 265 240 30 Other 100 Output: Urine 180 255 Urethral (Dover) 180 255 Emesis 0 0 0 Other: # Voids Urethral ([place]) 1 # Bowel Movements 0 0 0 - Physical Exam Head: Positive for: Atraumatic, Normocephalic Pupils: Positive for: PERRL Extroacular Muscles: Positive for: EOMI Conjunctiva: Positive for: Normal Mouth: Positive for: Dry Neck: Positive for: Normal Range of Motion. Negative for: JVD, Lymphadenopathy Respiratory/Chest: Positive for: Good Air Exchange. Negative for: Respiratory Distress, Accessory Muscle Use, Wheezes, Tachypneic Cardiovascular: Positive for: Regular Rate and Rhythm, Normal S1, S2. Negative for: Murmurs, Irregular Rhythm Abdomen: Positive for: Normal Bowel Sounds. Negative for: Tenderness, Distention, Peritoneal Signs Upper Extremity: Positive for: Normal Inspection. Negative for: Cyanosis, Edema Lower Extremity: Positive for: Normal Inspection. Negative for: Edema Skin: Positive for: Dry, Normal Color. Negative for: Diaphoretic Psychiatric: Positive for: Alert - Medications Active Medications: Active Medications Generic Name Dose Route Start Last Admin Trade Name Freq PRN Reason Stop Dose Admin Acetaminophen 650 mg 03/23/18 15:59 03/26/18 23:55 Tylenol 325mg Tab PO 650 mg Q6 PRN Administration Fever >100.4 F Albuterol/Ipratropium 3 ml 03/23/18 20:00 03/27/18 07:50 Duoneb 3 Mg/0.5 Mg (3 Ml) Ud INH 3 ml RQ4 KEV Administration Amiodarone HCl 200 mg 03/23/18 16:45 03/26/18 11:45 Cordarone PO 200 mg DAILY KEV Administration Apixaban 5 mg 03/23/18 18:00 03/24/18 18:27 Eliquis PO 5 mg BID KEV Administration Furosemide 40 mg 03/26/18 10:00 03/26/18 22:15 Lasix IVP 03/27/18 22:01 40 mg Q12 KEV Administration Heparin Sodium (Porcine) 5,000 units 03/26/18 10:00 03/26/18 22:16 Heparin SC 5,000 units Q12 KEV Administration Dexmedetomidine HCl 200 mcg/ 50 mls @ 5.01 mls/hr 03/23/18 17:51 03/26/18 17:30 Sodium Chloride IV 0 mcg/kg/hr TITR PRN 0 mls/hr Intubation Titration Protocol 0.2 MCG/KG/HR Norepinephrine Bitartrate 4 mg 254 mls @ 15.24 mls/hr 03/24/18 10:20 03/27/18 07:49 / Sodium Chloride IV 3 mcg/min .[id number] PRN 11.43 mls/hr TITRATE PER MD ORDER Administration Protocol 4 MCG/MIN Midazolam HCl 2 mg 03/26/18 09:26 03/27/18 08:06 Versed Inj IVP 2 mg Q4 PRN Administration Anxiety Nystatin 1 applic 03/23/18 18:00 03/26/18 17:21 Nystop Topical Powder TOP 1 applic BID KEV Administration Pantoprazole Sodium 40 mg 03/27/18 10:00 Protonix Susp PO DAILY [facility] Silver Sulfadiazine 0 ea 03/26/18 10:00 03/26/18 17:22 Silvadene 1% 20 Gm TOP Not Given BID [facility] - Patient Studies Lab Studies: Microbiology Studies 03/24/18 11:45 Gram Stain - Final Trachasp Sputum Culture - Final Yeast Species 03/23/18 08:25 Blood Culture - Preliminary Blood NO GROWTH AFTER 3 DAYS 03/23/18 08:00 Blood Culture - Preliminary Blood NO GROWTH AFTER 3 DAYS Lab Studies 03/27/18 03/27/18 03/27/18 Range/Units 06:19 06:19 06:19 WBC 10.9 H (4.8-10.8) K/uL RBC 4.00 (3.80-5.20) Mil/uL Hgb 10.2 L (11.0-16.0) g/dL Hct 33.3 L (34.0-47.0) % MCV 83.1 (81.0-99.0) fL MCH 25.5 L (27.0-31.0) pg MCHC 30.7 L (33.0-37.0) g/dL RDW 26.3 H (11.5-14.5) % Plt Count 134 (130-400) K/uL MPV 9.7 (7.2-11.7) fL Neut % (Auto) 86.1 H (50.0-75.0) % Lymph % (Auto) 8.1 L (20.0-40.0) % [place] % (Auto) 5.3 (0.0-10.0) % Eos % (Auto) 0.1 (0.0-4.0) % Baso % (Auto) 0.4 (0.0-2.0) % Neut # (Auto) 9.4 H (1.8-7.0) K/uL Lymph # (Auto) 0.9 L (1.0-4.3) K/uL [place] # (Auto) 0.6 (0.0-0.8) K/uL Eos # (Auto) 0.0 (0.0-0.7) K/uL Baso # (Auto) 0.0 (0.0-0.2) K/uL Neutrophils % (Manual) (50-75) % Lymphocytes % (Manual) (20-40) % Monocytes % (Manual) (0-10) % Eosinophils % (Manual) (0-4) % Platelet Estimate (NORMAL) Hypochromasia (manual) Poikilocytosis (manual Anisocytosis (manual) PT 24.3 H (9.7-12.2) SECONDS INR 2.2 Puncture Site pCO2 (35-45) mm/Hg pO2 (80-100) mm/Hg HCO3 (21-28) mmol/L ABG pH (7.35-7.45) ABG Total CO2 (22-28) mmol/L ABG O2 Saturation (95-98) % ABG Base Excess (-2.0-3.0) mmol/L ABG Hemoglobin (11.7-17.4) g/dL ABG Carboxyhemoglobin (0.5-1.5) % POC ABG HHb (Measured) (0.0-5.0) % ABG Methemoglobin (0.0-3.0) % Pawel Test A-a O2 Difference mm/Hg Respiratory Index Hgb O2 Saturation (95.0-98.0) % Vent Mode Mechanical Rate FiO2 % Tidal Volume PEEP Sodium 145 (132-148) mmol/L Potassium 3.8 (3.6-5.2) mmol/L Chloride 106 (98-107) mmol/L Carbon Dioxide 36 H (22-30) mmol/L Anion Gap 7 L (10-20) BUN 35 H (7-17) mg/dL Creatinine 0.6 L (0.7-1.2) mg/dL Est GFR ( Amer) > 60 Est GFR (Non-Af Amer) > 60 Random Glucose 161 H (65-105) mg/dL Calcium 7.8 L (8.6-10.4) mg/dl Phosphorus 2.6 (2.5-4.5) mg/dL Magnesium 2.1 (1.6-2.3) mg/dL Total Bilirubin 1.8 H (0.2-1.3) mg/dL AST 11 L D (14-36) U/L ALT 24 (9-52) U/L Alkaline Phosphatase 54 (38-126) U/L Total Protein 5.1 L (6.3-8.3) g/dL Albumin 2.6 L (3.5-5.0) g/dL Globulin 2.6 (2.2-3.9) gm/dL Albumin/Globulin Ratio 1.0 (1.0-2.1) Urine Color (YELLOW) Urine Clarity (Clear) Urine pH (5.0-8.0) Ur Specific Temple (1.003-1.030) Urine Protein (NEGATIVE) mg/dL Urine Glucose (UA) (Normal) mg/dL Urine Ketones (NEGATIVE) mg/dL Urine Blood (NEGATIVE) Urine Nitrate (NEGATIVE) Urine Bilirubin (NEGATIVE) Urine Urobilinogen (0.2-1.0) mg/dL Ur Leukocyte Esterase (Negative) Nehemiah/uL Urine WBC (Auto) (0-5) /hpf Urine RBC (Auto) (0-3) /hpf Urine Bacteria (<OCC) Hyaline Casts (0-2) /lpf Urine Yeast (Budding) (NEGATIVE) /hpf Blood Type Blood Type Confirm Antibody Screen 03/27/18 03/27/18 03/26/18 Range/Units 04:35 02:15 11:30 WBC (4.8-10.8) K/uL RBC (3.80-5.20) Mil/uL Hgb (11.0-16.0) g/dL Hct (34.0-47.0) % MCV (81.0-99.0) fL MCH (27.0-31.0) pg MCHC (33.0-37.0) g/dL RDW (11.5-14.5) % Plt Count (130-400) K/uL MPV (7.2-11.7) fL Neut % (Auto) (50.0-75.0) % Lymph % (Auto) (20.0-40.0) % [place] % (Auto) (0.0-10.0) % Eos % (Auto) (0.0-4.0) % Baso % (Auto) (0.0-2.0) % Neut # (Auto) (1.8-7.0) K/uL Lymph # (Auto) (1.0-4.3) K/uL [place] # (Auto) (0.0-0.8) K/uL Eos # (Auto) (0.0-0.7) K/uL Baso # (Auto) (0.0-0.2) K/uL Neutrophils % (Manual) (50-75) % Lymphocytes % (Manual) (20-40) % Monocytes % (Manual) (0-10) % Eosinophils % (Manual) (0-4) % Platelet Estimate (NORMAL) Hypochromasia (manual) Poikilocytosis (manual Anisocytosis (manual) PT (9.7-12.2) SECONDS INR Puncture Site Rr pCO2 49 H (35-45) mm/Hg pO2 99 (80-100) mm/Hg HCO3 33.3 H (21-28) mmol/L ABG pH 7.47 H (7.35-7.45) ABG Total CO2 37.2 H (22-28) mmol/L ABG O2 Saturation 99.1 H (95-98) % ABG Base Excess 10.7 H (-2.0-3.0) mmol/L ABG Hemoglobin 10.4 L (11.7-17.4) g/dL ABG Carboxyhemoglobin 2.8 H (0.5-1.5) % POC ABG HHb (Measured) 0.9 (0.0-5.0) % ABG Methemoglobin 0.8 (0.0-3.0) % Pawel Test Pos A-a O2 Difference 196.0 mm/Hg Respiratory Index 2.0 Hgb O2 Saturation 95.5 (95.0-98.0) % Vent Mode Prvc Mechanical Rate 14 FiO2 50.0 % Tidal Volume 420 PEEP 5 Sodium (132-148) mmol/L Potassium (3.6-5.2) mmol/L Chloride (98-107) mmol/L Carbon Dioxide (22-30) mmol/L Anion Gap (10-20) BUN (7-17) mg/dL Creatinine (0.7-1.2) mg/dL Est GFR ( Amer) Est GFR (Non-Af Amer) Random Glucose (65-105) mg/dL Calcium (8.6-10.4) mg/dl Phosphorus (2.5-4.5) mg/dL Magnesium (1.6-2.3) mg/dL Total Bilirubin (0.2-1.3) mg/dL AST (14-36) U/L ALT (9-52) U/L Alkaline Phosphatase (38-126) U/L Total Protein (6.3-8.3) g/dL Albumin (3.5-5.0) g/dL Globulin (2.2-3.9) gm/dL Albumin/Globulin Ratio (1.0-2.1) Urine Color Bertha (YELLOW) Urine Clarity Hazy (Clear) Urine pH 5.0 (5.0-8.0) Ur Specific Temple 1.012 (1.003-1.030) Urine Protein Negative (NEGATIVE) mg/dL Urine Glucose (UA) Normal (Normal) mg/dL Urine Ketones Negative (NEGATIVE) mg/dL Urine Blood 2+ H (NEGATIVE) Urine Nitrate Negative (NEGATIVE) Urine Bilirubin Negative (NEGATIVE) Urine Urobilinogen 4.0 H (0.2-1.0) mg/dL Ur Leukocyte Esterase 3+ H (Negative) Nehemiah/uL Urine WBC (Auto) 33 H (0-5) /hpf Urine RBC (Auto) 96 H (0-3) /hpf Urine Bacteria Rare (<OCC) Hyaline Casts >20 H (0-2) /lpf Urine Yeast (Budding) Few H (NEGATIVE) /hpf Blood Type A POSITIVE Blood Type Confirm A POSITIVE Antibody Screen Negative 03/26/18 Range/Units 06:21 WBC (4.8-10.8) K/uL RBC (3.80-5.20) Mil/uL Hgb (11.0-16.0) g/dL Hct (34.0-47.0) % MCV (81.0-99.0) fL MCH (27.0-31.0) pg MCHC (33.0-37.0) g/dL RDW (11.5-14.5) % Plt Count (130-400) K/uL MPV (7.2-11.7) fL Neut % (Auto) (50.0-75.0) % Lymph % (Auto) (20.0-40.0) % [place] % (Auto) (0.0-10.0) % Eos % (Auto) (0.0-4.0) % Baso % (Auto) (0.0-2.0) % Neut # (Auto) (1.8-7.0) K/uL Lymph # (Auto) (1.0-4.3) K/uL [place] # (Auto) (0.0-0.8) K/uL Eos # (Auto) (0.0-0.7) K/uL Baso # (Auto) (0.0-0.2) K/uL Neutrophils % (Manual) 85 H (50-75) % Lymphocytes % (Manual) 9 L (20-40) % Monocytes % (Manual) 5 (0-10) % Eosinophils % (Manual) 1 (0-4) % Platelet Estimate Slightly decreased L (NORMAL) Hypochromasia (manual) Slight Poikilocytosis (manual Slight Anisocytosis (manual) Slight PT (9.7-12.2) SECONDS INR Puncture Site pCO2 (35-45) mm/Hg pO2 (80-100) mm/Hg HCO3 (21-28) mmol/L ABG pH (7.35-7.45) ABG Total CO2 (22-28) mmol/L ABG O2 Saturation (95-98) % ABG Base Excess (-2.0-3.0) mmol/L ABG Hemoglobin (11.7-17.4) g/dL ABG Carboxyhemoglobin (0.5-1.5) % POC ABG HHb (Measured) (0.0-5.0) % ABG Methemoglobin (0.0-3.0) % Pawel Test A-a O2 Difference mm/Hg Respiratory Index Hgb O2 Saturation (95.0-98.0) % Vent Mode Mechanical Rate FiO2 % Tidal Volume PEEP Sodium (132-148) mmol/L Potassium (3.6-5.2) mmol/L Chloride (98-107) mmol/L Carbon Dioxide (22-30) mmol/L Anion Gap (10-20) BUN (7-17) mg/dL Creatinine (0.7-1.2) mg/dL Est GFR ( Amer) Est GFR (Non-Af Amer) Random Glucose (65-105) mg/dL Calcium (8.6-10.4) mg/dl Phosphorus (2.5-4.5) mg/dL Magnesium (1.6-2.3) mg/dL Total Bilirubin (0.2-1.3) mg/dL AST (14-36) U/L ALT (9-52) U/L Alkaline Phosphatase (38-126) U/L Total Protein (6.3-8.3) g/dL Albumin (3.5-5.0) g/dL Globulin (2.2-3.9) gm/dL Albumin/Globulin Ratio (1.0-2.1) Urine Color (YELLOW) Urine Clarity (Clear) Urine pH (5.0-8.0) Ur Specific [place] (1.003-1.030) Urine Protein (NEGATIVE) mg/dL Urine Glucose (UA) (Normal) mg/dL Urine Ketones (NEGATIVE) mg/dL Urine Blood (NEGATIVE) Urine Nitrate (NEGATIVE) Urine Bilirubin (NEGATIVE) Urine Urobilinogen (0.2-1.0) mg/dL Ur Leukocyte Esterase (Negative) Nehemiah/uL Urine WBC (Auto) (0-5) /hpf Urine RBC (Auto) (0-3) /hpf Urine Bacteria (<OCC) Hyaline Casts (0-2) /lpf Urine Yeast (Budding) (NEGATIVE) /hpf Blood Type Blood Type Confirm Antibody Screen Laboratory Results - last 24 hr 03/26/18 03/26/18 03/27/18 06:21 11:30 02:15 WBC RBC Hgb Hct MCV MCH MCHC RDW Plt Count MPV Neut % (Auto) Lymph % (Auto) [place] % (Auto) Eos % (Auto) Baso % (Auto) Neut # (Auto) Lymph # (Auto) [place] # (Auto) Eos # (Auto) Baso # (Auto) Neutrophils % (Manual) 85 H Lymphocytes % (Manual) 9 L Monocytes % (Manual) 5 Eosinophils % (Manual) 1 Platelet Estimate Slightly decreased L Hypochromasia (manual) Slight Poikilocytosis (manual Slight Anisocytosis (manual) Slight PT INR Puncture Site pCO2 pO2 HCO3 ABG pH ABG Total CO2 ABG O2 Saturation ABG Base Excess ABG Hemoglobin ABG Carboxyhemoglobin POC ABG HHb (Measured) ABG Methemoglobin Pawel Test A-a O2 Difference Respiratory Index Hgb O2 Saturation Vent Mode Mechanical Rate FiO2 Tidal Volume PEEP Sodium Potassium Chloride Carbon Dioxide Anion Gap BUN Creatinine Est GFR ( Amer) Est GFR (Non-Af Amer) Random Glucose Calcium Phosphorus Magnesium Total Bilirubin AST ALT Alkaline Phosphatase Total Protein Albumin Globulin Albumin/Globulin Ratio Urine Color Bertha Urine Clarity Hazy Urine pH 5.0 Ur Specific Temple 1.012 Urine Protein Negative Urine Glucose (UA) Normal Urine Ketones Negative Urine Blood 2+ H Urine Nitrate Negative Urine Bilirubin Negative Urine Urobilinogen 4.0 H Ur Leukocyte Esterase 3+ H Urine WBC (Auto) 33 H Urine RBC (Auto) 96 H Urine Bacteria Rare Hyaline Casts >20 H Urine Yeast (Budding) Few H Blood Type A POSITIVE Blood Type Confirm A POSITIVE Antibody Screen Negative 03/27/18 03/27/18 03/27/18 04:35 06:19 06:19 WBC 10.9 H RBC 4.00 Hgb 10.2 L Hct 33.3 L MCV 83.1 MCH 25.5 L MCHC 30.7 L RDW 26.3 H Plt Count 134 MPV 9.7 Neut % (Auto) 86.1 H Lymph % (Auto) 8.1 L [place] % (Auto) 5.3 Eos % (Auto) 0.1 Baso % (Auto) 0.4 Neut # (Auto) 9.4 H Lymph # (Auto) 0.9 L [place] # (Auto) 0.6 Eos # (Auto) 0.0 Baso # (Auto) 0.0 Neutrophils % (Manual) Lymphocytes % (Manual) Monocytes % (Manual) Eosinophils % (Manual) Platelet Estimate Hypochromasia (manual) Poikilocytosis (manual Anisocytosis (manual) PT 24.3 H INR 2.2 Puncture Site Rr pCO2 49 H pO2 99 HCO3 33.3 H ABG pH 7.47 H ABG Total CO2 37.2 H ABG O2 Saturation 99.1 H ABG Base Excess 10.7 H ABG Hemoglobin 10.4 L ABG Carboxyhemoglobin 2.8 H POC ABG HHb (Measured) 0.9 ABG Methemoglobin 0.8 Pawel Test Pos A-a O2 Difference 196.0 Respiratory Index 2.0 Hgb O2 Saturation 95.5 Vent Mode Prvc Mechanical Rate 14 FiO2 50.0 Tidal Volume 420 PEEP 5 Sodium Potassium Chloride Carbon Dioxide Anion Gap BUN Creatinine Est GFR ( Amer) Est GFR (Non-Af Amer) Random Glucose Calcium Phosphorus Magnesium Total Bilirubin AST ALT Alkaline Phosphatase Total Protein Albumin Globulin Albumin/Globulin Ratio Urine Color Urine Clarity Urine pH Ur Specific [place] Urine Protein Urine Glucose (UA) Urine Ketones Urine Blood Urine Nitrate Urine Bilirubin Urine Urobilinogen Ur Leukocyte Esterase Urine WBC (Auto) Urine RBC (Auto) Urine Bacteria Hyaline Casts Urine Yeast (Budding) Blood Type Blood Type Confirm Antibody Screen 03/27/18 06:19 WBC RBC Hgb Hct MCV MCH MCHC RDW Plt Count MPV Neut % (Auto) Lymph % (Auto) [place] % (Auto) Eos % (Auto) Baso % (Auto) Neut # (Auto) Lymph # (Auto) [place] # (Auto) Eos # (Auto) Baso # (Auto) Neutrophils % (Manual) Lymphocytes % (Manual) Monocytes % (Manual) Eosinophils % (Manual) Platelet Estimate Hypochromasia (manual) Poikilocytosis (manual Anisocytosis (manual) PT INR Puncture Site pCO2 pO2 HCO3 ABG pH ABG Total CO2 ABG O2 Saturation ABG Base Excess ABG Hemoglobin ABG Carboxyhemoglobin POC ABG HHb (Measured) ABG Methemoglobin Pawel Test A-a O2 Difference Respiratory Index Hgb O2 Saturation Vent Mode Mechanical Rate FiO2 Tidal Volume PEEP Sodium 145 Potassium 3.8 Chloride 106 Carbon Dioxide 36 H Anion Gap 7 L BUN 35 H Creatinine 0.6 L Est GFR ( Amer) > 60 Est GFR (Non-Af Amer) > 60 Random Glucose 161 H Calcium 7.8 L Phosphorus 2.6 Magnesium 2.1 Total Bilirubin 1.8 H AST 11 L D ALT 24 Alkaline Phosphatase 54 Total Protein 5.1 L Albumin 2.6 L Globulin 2.6 Albumin/Globulin Ratio 1.0 Urine Color Urine Clarity Urine pH Ur Specific Temple Urine Protein Urine Glucose (UA) Urine Ketones Urine Blood Urine Nitrate Urine Bilirubin Urine Urobilinogen Ur Leukocyte Esterase Urine WBC (Auto) Urine RBC (Auto) Urine Bacteria Hyaline Casts Urine Yeast (Budding) Blood Type Blood Type Confirm Antibody Screen Radiology Impressions: Radiology Impressions Chest X-Ray 03/26/18 07:00 IMPRESSION: Little interval change in perihilar airspace disease which may represent pulmonary edema or pneumonia and redemonstration of bilateral effusions. Critical Care Progress Note - Nutrition Nutrition: Nutrition Category Date Time Status NPO Diet [DIET] Diets 03/24/18 Breakfast Active
--- NOTE | 2018-03-27 09:04 | RAD ---
Date of service: 03/27/2018 HISTORY: intubated COMPARISON: 03/26/2018 FINDINGS: LUNGS: Extensive opacity mid and lower right lung. Diminishing left perihilar opacity. PLEURA: Small bilateral pleural effusion, right greater than left. No pneumothorax. CARDIOVASCULAR: ETT, NG tube and left IJ central venous catheter are unchanged. Normal cardiac size. Minimal atherosclerotic calcification of the thoracic aorta. OSSEOUS STRUCTURES: No significant abnormalities. VISUALIZED UPPER ABDOMEN: Normal. OTHER FINDINGS: None. IMPRESSION: Extensive opacity mid and lower right lung. Possible pneumonia versus atelectasis. Improving left perihilar opacity. Small bilateral pleural effusion. Lines and tubes unchanged.
[2018-03-27] MEDS: Pantoprazole 40 mg Susp UD PO SCH (09:38)
[2018-03-27 10:03] LABS: ANISOCYTOSIS MARKED; BANDS 2 % (0-2); EOSINOPHIL 1 % (0-4); HYPOCHROMIC SLIGHT; LYMPHOCYTE 9 % (20-40); MICROCYTOSIS SLIGHT; MONOCYTE 4 % (0-10); NEUTROPHIL 84 % (50-75); PLATELET ESTIMATE NORMAL (NORMAL); POIKILOCYTOSIS SLIGHT; TOTAL CELLS COUNTED 100
[2018-03-27 10:04] LABS: GIANT PLATELETS PRESENT; OVALOCYTES SLIGHT; POLYCHROMIC SLIGHT; TARGET CELLS SLIGHT
[2018-03-27] MEDS: Silver Sulfadiazine 1% Cream (20 gm) TOP SCH ×2 (10:26→17:39)
[2018-03-27] MEDS: Fluconazole IV 100mg/50 ml NS 50 ML IVPB SCH (10:50)
[2018-03-27] MEDS ORDERED: Fluconazole IV 200mg/100 ml NS 100 MG in Premixed IV 1 EA IVPB SCH (11:00)
--- NOTE | 2018-03-27 12:26 | CP.PCM.PN ---
Subjective - Date & Time of Evaluation Date of Evaluation: 03/27/18 Time of Evaluation: 12:23 - Subjective Subjective: still entubated started on levofed bp improved today Objective - Vital Signs/Intake and Output Vital Signs (last 24 hours): Temp Pulse Resp BP Pulse Ox 99.6 F 92 H 14 124/81 100 03/27/18 08:00 03/27/18 11:14 03/27/18 11:14 03/27/18 11:14 03/27/18 11:14 Intake and Output: 03/27/18 03/27/18 06:59 18:59 Intake Total 766.3 722.5 Output Total 275 125 Balance 491.3 597.5 - Medications Medications: Current Medications Acetaminophen (Tylenol 325mg Tab) 650 mg PO Q6 PRN PRN Reason: Fever >100.4 F Last Admin: 03/26/18 23:55 Dose: 650 mg Albuterol/Ipratropium (Duoneb 3 Mg/0.5 Mg (3 Ml) Ud) 3 ml INH RQ4 KEV Last Admin: 03/27/18 11:11 Dose: 3 ml Amiodarone HCl (Cordarone) 200 mg PO DAILY [facility] Last Admin: 03/27/18 09:38 Dose: 200 mg Apixaban (Eliquis) 5 mg PO BID [facility] Last Admin: 03/24/18 18:27 Dose: 5 mg Furosemide (Lasix) 40 mg IVP Q12 KEV Stop: 03/27/18 22:01 Last Admin: 03/27/18 09:37 Dose: 40 mg Heparin Sodium (Porcine) (Heparin) 5,000 units SC Q12 KEV Last Admin: 03/26/18 22:16 Dose: 5,000 units Dexmedetomidine HCl 200 mcg/ (Sodium Chloride) 50 mls @ 5.01 mls/hr IV TITR PRN; Protocol PRN Reason: Intubation Last Titration: 03/26/18 17:30 Dose: 0 mcg/kg/hr, 0 mls/hr Norepinephrine Bitartrate 4 mg (/ Sodium Chloride) 254 mls @ 15.24 mls/hr IV .[id number] PRN; Protocol PRN Reason: TITRATE PER MD ORDER Last Admin: 03/27/18 07:49 Dose: 3 mcg/min, 11.43 mls/hr Piperacillin Sod/Tazobactam Sod (Zosyn 2.25 Gm Iv Premix) 2.25 gm in 50 mls @ 200 mls/hr IVPB Q8 KEV; Protocol Fluconazole (Diflucan Iv 100 Mg/50 Ml Ns) 50 mls @ 100 mls/hr IVPB DAILY KEV; Protocol Last Admin: 03/27/18 10:50 Dose: 100 mls/hr Lorazepam (Ativan) 2 mg IVP Q4H PRN PRN Reason: Anxiety Last Admin: 03/27/18 10:25 Dose: 2 mg Nystatin (Nystop Topical Powder) 1 applic TOP BID KEV Last Admin: 03/27/18 09:38 Dose: 1 applic Pantoprazole Sodium (Protonix Susp) 40 mg PO DAILY [facility] Last Admin: 03/27/18 09:38 Dose: 40 mg Silver Sulfadiazine (Silvadene 1% 20 Gm) 0 ea TOP BID [facility] Last Admin: 03/27/18 10:26 Dose: 1 applic - Labs Labs: 03/27/18 06:19 03/27/18 06:19 PT 24.3 SECONDS (9.7-12.2) H 03/27/18 06:19 INR 2.2 03/27/18 06:19 APTT 32 SECONDS (21-34) 03/25/18 08:11 - Constitutional Appears: In Acute Distress - Head Exam Head Exam: ATRAUMATIC - Eye Exam Eye Exam: Normal appearance Pupil Exam: NORMAL ACCOMODATION - ENT Exam ENT Exam: Normal Exam - Neck Exam Neck Exam: Full ROM - Respiratory Exam Respiratory Exam: Decreased Breath Sounds, Rales - Cardiovascular Exam Cardiovascular Exam: REGULAR RHYTHM - GI/Abdominal Exam GI & Abdominal Exam: Normal Bowel Sounds - Extremities Exam Additional comments: celulitis oeadeama - Back Exam Back Exam: NORMAL INSPECTION - Neurological Exam Additional comments: sedated - Psychiatric Exam Psychiatric exam: Agitated Additional comments: last night - Skin Skin Exam: Normal Color Assessment and Plan - Assessment and Plan (Free Text) Assessment: ac chf av onumonia resp failiur bilateral efusion at fib Plan: cont as per ccu orders
[2018-03-27] MEDS: Piperacill/Tazo 2.25gm in Dex 2.25 GM/50 ML BAG IVPB SCH ×2 (13:52→22:44)
[2018-03-27 13:56] LABS: SQUAMOUS EPITHIAL < 1 /hpf (0-5); URINE BACTERIA RARE (<OCC); URINE BILIRUBIN NEGATIVE (NEGATIVE); URINE BLOOD 3+ (NEGATIVE); URINE CLARITY Clear (Clear); URINE COLOR Yellow (YELLOW); URINE GLUCOSE (UA) NORMAL (Normal); URINE LEUKOCYTE ESTERASE 2+ Leu/uL (Negative); URINE PROTEIN NEGATIVE (NEGATIVE)
--- NOTE | 2018-03-27 16:23 | CP.PCM.PN ---
Subjective - Date & Time of Evaluation Date of Evaluation: 03/27/18 Time of Evaluation: 16:23 - Subjective Subjective: Stil intubated and sedated and daughter bed side. Objective - Vital Signs/Intake and Output Vital Signs (last 24 hours): Temp Pulse Resp BP Pulse Ox 99.1 F 100 H 11 L 113/79 98 03/27/18 16:00 03/27/18 16:00 03/27/18 16:00 03/27/18 15:43 03/27/18 16:00 Intake and Output: 03/27/18 03/27/18 06:59 18:59 Intake Total 766.3 1294.0 Output Total 275 1115 Balance 491.3 179.0 - Medications Medications: Current Medications Acetaminophen (Tylenol 325mg Tab) 650 mg PO Q6 PRN PRN Reason: Fever >100.4 F Last Admin: 03/26/18 23:55 Dose: 650 mg Albuterol/Ipratropium (Duoneb 3 Mg/0.5 Mg (3 Ml) Ud) 3 ml INH RQ4 KEV Last Admin: 03/27/18 15:55 Dose: 3 ml Amiodarone HCl (Cordarone) 200 mg PO DAILY KEV Last Admin: 03/27/18 09:38 Dose: 200 mg Apixaban (Eliquis) [address] [facility] Last Admin: 03/24/18 18:27 Dose: 5 mg Furosemide (Lasix) 40 mg IVP Q12 KEV Stop: 03/27/18 22:01 Last Admin: 03/27/18 09:37 Dose: 40 mg Heparin Sodium (Porcine) (Heparin) 5,000 units SC Q12 KEV Last Admin: 03/26/18 22:16 Dose: 5,000 units Dexmedetomidine HCl 200 mcg/ (Sodium Chloride) 50 mls @ 5.01 mls/hr IV TITR PRN; Protocol PRN Reason: Intubation Last Titration: 03/26/18 17:30 Dose: 0 mcg/kg/hr, 0 mls/hr Norepinephrine Bitartrate 4 mg (/ Sodium Chloride) 254 mls @ 15.24 mls/hr IV .[id number] PRN; Protocol PRN Reason: TITRATE PER MD ORDER Last Titration: 03/27/18 15:04 Dose: 5 mcg/min, 19.05 mls/hr Piperacillin Sod/Tazobactam Sod (Zosyn 2.25 Gm Iv Premix) 2.25 gm in 50 mls @ 200 mls/hr IVPB Q8 [facility]; Protocol Last Admin: 03/27/18 13:52 Dose: 200 mls/hr Fluconazole (Diflucan Iv 100 Mg/50 Ml Ns) 50 mls @ 100 mls/hr IVPB DAILY [facility]; Protocol Last Admin: 03/27/18 10:50 Dose: 100 mls/hr Lorazepam (Ativan) 2 mg IVP Q4H PRN PRN Reason: Anxiety Last Admin: 03/27/18 14:59 Dose: 2 mg Nystatin (Nystop Topical Powder) 1 applic TOP BID KEV Last Admin: 03/27/18 09:38 Dose: 1 applic Pantoprazole Sodium (Protonix Susp) 40 mg PO DAILY KEV Last Admin: 03/27/18 09:38 Dose: 40 mg Silver Sulfadiazine (Silvadene 1% 20 Gm) 0 ea TOP BID KEV Last Admin: 03/27/18 10:26 Dose: 1 applic - Labs Labs: 03/27/18 06:19 03/27/18 06:19 PT 24.3 SECONDS (9.7-12.2) H 03/27/18 06:19 INR 2.2 03/27/18 06:19 APTT 32 SECONDS (21-34) 03/25/18 08:11 - Head Exam Head Exam: NORMOCEPHALIC - Neck Exam Neck Exam: Normal Inspection - Respiratory Exam Additional comments: Intubated and sedated. - Cardiovascular Exam Cardiovascular Exam: Irregular Rhythm Additional comments: Atrial fibrillation with rate controlled. Assessment and Plan (1) Atrial fibrillation and flutter Assessment & Plan: Rate control and anticoagulation. Status: Acute (2) CHF (congestive heart failure) Assessment & Plan: Fluid restriction and diuresis as tolerated. Status: Acute
--- NOTE | 2018-03-27 17:44 | CP.PCM.PN ---
Subjective - Date & Time of Evaluation Date of Evaluation: 03/27/18 Time of Evaluation: 16:00 - Subjective Subjective: Patient seen and examined Remains intubated on ventilatory support Sedated Afebrile Tolerating feeding Status postFFP transfusion INR 2.2 Chest x-ray showed decreasing Pleural effusion Objective - Vital Signs/Intake and Output Vital Signs (last 24 hours): Temp Pulse Resp BP Pulse Ox 99.1 F 108 H 14 117/91 H 100 03/27/18 16:00 03/27/18 17:00 03/27/18 17:00 03/27/18 16:57 03/27/18 17:00 Intake and Output: 03/27/18 03/27/18 06:59 18:59 Intake Total 766.3 1356.5 Output Total 275 1160 Balance 491.3 196.5 - Medications Medications: Current Medications Acetaminophen (Tylenol 325mg Tab) 650 mg PO Q6 PRN PRN Reason: Fever >100.4 F Last Admin: 03/26/18 23:55 Dose: 650 mg Albuterol/Ipratropium (Duoneb 3 Mg/0.5 Mg (3 Ml) Ud) 3 ml INH RQ4 KEV Last Admin: 03/27/18 15:55 Dose: 3 ml Amiodarone HCl (Cordarone) 200 mg PO DAILY [facility] Last Admin: 03/27/18 09:38 Dose: 200 mg Apixaban (Eliquis) 5 mg PO BID [facility] Last Admin: 03/24/18 18:27 Dose: 5 mg Furosemide (Lasix) 40 mg IVP Q12 KEV Stop: 03/27/18 22:01 Last Admin: 03/27/18 09:37 Dose: 40 mg Heparin Sodium (Porcine) (Heparin) 5,000 units SC Q12 KEV Last Admin: 03/26/18 22:16 Dose: 5,000 units Dexmedetomidine HCl 200 mcg/ (Sodium Chloride) 50 mls @ 5.01 mls/hr IV TITR PRN; Protocol PRN Reason: Intubation Last Titration: 03/26/18 17:30 Dose: 0 mcg/kg/hr, 0 mls/hr Norepinephrine Bitartrate 4 mg (/ Sodium Chloride) 254 mls @ 15.24 mls/hr IV .[id number] PRN; Protocol PRN Reason: TITRATE PER MD ORDER Last Titration: 03/27/18 15:04 Dose: 5 mcg/min, 19.05 mls/hr Piperacillin Sod/Tazobactam Sod (Zosyn 2.25 Gm Iv Premix) 2.25 gm in 50 mls @ 200 mls/hr IVPB Q8 [facility]; Protocol Last Admin: 03/27/18 13:52 Dose: 200 mls/hr Fluconazole (Diflucan Iv 100 Mg/50 Ml Ns) 50 mls @ 100 mls/hr IVPB DAILY [facility]; Protocol Last Admin: 03/27/18 10:50 Dose: 100 mls/hr Lorazepam (Ativan) 2 mg IVP Q4H PRN PRN Reason: Anxiety Last Admin: 03/27/18 14:59 Dose: 2 mg Nystatin (Nystop Topical Powder) 1 applic TOP BID KEV Last Admin: 03/27/18 17:40 Dose: 1 applic Pantoprazole Sodium (Protonix Susp) 40 mg PO DAILY KEV Last Admin: 03/27/18 09:38 Dose: 40 mg Silver Sulfadiazine (Silvadene 1% 20 Gm) 0 ea TOP BID KEV Last Admin: 03/27/18 17:39 Dose: 1 applic - Labs Labs: 03/27/18 06:19 03/27/18 06:19 PT 24.3 SECONDS (9.7-12.2) H 03/27/18 06:19 INR 2.2 03/27/18 06:19 APTT 32 SECONDS (21-34) 03/25/18 08:11
[2018-03-28] MEDS: Albuterol-Ipratrop 3 mg / 0.5 (3 ml) UD INH SCH ×6 (00:06→20:02)
[2018-03-28] MEDS ORDERED: HYDROmorphone 0.5 mg/0.5 ml ISec IVP STA (02:25)
[2018-03-28] MEDS: Piperacill/Tazo 2.25gm in Dex 2.25 GM/50 ML BAG IVPB SCH ×2 (05:11→13:29)
[2018-03-28 06:02] LABS: ARTERIAL BLOOD GAS HCO3 33.9 mmol/L (21-28); ARTERIAL BLOOD GAS HEMOGLOBIN 9.6 g/dL (11.7-17.4); ARTERIAL BLOOD GAS O2 SAT 89.3 % (95-98); ARTERIAL BLOOD GAS PCO2 57 mm/Hg (35-45); ARTERIAL BLOOD GAS PH 7.43 (7.35-7.45); ARTERIAL BLOOD GAS PO2 51 mm/Hg (80-100); ARTERIAL BLOOD GAS TCO2 39.5 mmol/L (22-28)
[2018-03-28 06:53] LABS: BASO # 0.1 K/uL (0.0-0.2); BASO % 0.5 % (0.0-2.0); EOS # 0.1 K/uL (0.0-0.7); EOS % 0.5 % (0.0-4.0); HEMOGLOBIN 9.6 g/dL (11.0-16.0); LYMPH # 0.6 K/uL (1.0-4.3); LYMPH % 5.2 % (20.0-40.0); MEAN CELL VOLUME 82.8 fL (81.0-99.0); MEAN CORPUSCULAR HEMOGLOBIN 25.4 pg (27.0-31.0); MEAN CORPUSCULAR HGB CONC 30.7 g/dL (33.0-37.0); MEAN PLATELET VOLUME 9.1 fL (7.2-11.7); MONO # 0.3 K/uL (0.0-0.8); NEUT # 10.2 K/uL (1.8-7.0); NEUT % 90.8 % (50.0-75.0); PLATELET COUNT 109 K/uL (130-400); RBC 3.77 Mil/uL (3.80-5.20); RED CELL DISTRIBUTION WIDTH 25.5 % (11.5-14.5); WHITE BLOOD COUNT 11.3 K/uL (4.8-10.8)
[2018-03-28 07:05] LABS: ALB/GLOB RATIO 0.9 (1.0-2.1); ALBUMIN 2.3 g/dL (3.5-5.0); ALT/SGPT 21 U/L (9-52); AST/SGOT 9 U/L (14-36); BLOOD UREA NITROGEN 33 mg/dL (7-17); CALCIUM 7.7 mg/dl (8.6-10.4); GFR NON-AFRICAN AMERICAN > 60
--- NOTE | 2018-03-28 08:18 | CP.CCUPN ---
CCU Subjective - Physician Review Events Since Last Encounter (Free Text): 03/28/18 08:16 Last night events noted. Patient had agitations. Also had a fever episode last night. Patient is currently on ventilator. FiO2 40%. Levophed 4 mics running. On examination: Hypotensive. Saturation 100% Blood pressure 114/77 Patient is still having some positive balance. On examination: Patient is arousable but sedated. Chest bilateral good air entry, decreased air entry in the lower lung cavazos noted Regular heart sounds noted. Abdomen soft. Edema noted bilaterally in the legs Patient has a positive balance almost to 3 L The patient labs reviewed patient is on antibiotic no. Blood gas analysis showing mild hypoxia. But saturation is 100%. Chest x-ray increasing infiltrative changes, effusion present. Improvement in the urinary output noted. But patient has Had a echocardiogram which was done in February 2018 showing evidence of normal LV systolic function Assessment and recommendation: Patient is a 82-year-old female with a history of heart failure, diastolic heart failure most likely, hypertension, aortic atrial fibrillation admitted with a acute respiratory failure Patient has a bilateral pleural effusion Also patient has a significant coagulopathy. Maintain negative balance. Lasix. Fluid monitoring. Repeat coagulation profile. Possible chest tube placement in the morning. CCU Objective - Vital Signs / Intake & Output Vital Signs (Last 4 hours): Vital Signs Temp 03/28/18 05:55 101.0 F H Intake and Output (Last 8hrs): Intake & Output 03/27/18 03/28/18 03/28/18 22:59 06:59 14:59 Intake Total 659.5 Output Total 205 Balance 454.5 Intake: IV 254 Intake, IV Amount 105.5 Left Medial Port Internal 0 Jugular lt ij tlc proximal 105.5 Oral 60 Tube Feeding 240 Output: Urine 205 Urethral ([place]) 205 Other: # Bowel Movements 0 - Physical Exam Head: Positive for: Atraumatic, Normocephalic Pupils: Positive for: PERRL Extroacular Muscles: Positive for: EOMI Conjunctiva: Positive for: Normal Mouth: Positive for: Dry Neck: Positive for: Normal Range of Motion. Negative for: JVD, Lymphadenopathy Respiratory/Chest: Positive for: Good Air Exchange. Negative for: Respiratory Distress, Accessory Muscle Use, Wheezes, Tachypneic Cardiovascular: Positive for: Regular Rate and Rhythm, Normal S1, S2. Negative for: Murmurs, Irregular Rhythm Abdomen: Positive for: Normal Bowel Sounds. Negative for: Tenderness, Distention, Peritoneal Signs Upper Extremity: Positive for: Normal Inspection. Negative for: Cyanosis, Edema Lower Extremity: Positive for: Normal Inspection. Negative for: Edema Skin: Positive for: Dry, Normal Color. Negative for: Diaphoretic Psychiatric: Positive for: Alert - Medications Active Medications: Active Medications Generic Name Dose Route Start Last Admin Trade Name Freq PRN Reason Stop Dose Admin Acetaminophen 650 mg 03/23/18 15:59 03/28/18 05:55 Tylenol 325mg Tab PO 650 mg Q6 PRN Administration Fever >100.4 F Albuterol/Ipratropium 3 ml 03/23/18 20:00 03/28/18 07:54 Duoneb 3 Mg/0.5 Mg (3 Ml) Ud INH 3 ml RQ4 KEV Administration Amiodarone HCl 200 mg 03/23/18 16:45 03/27/18 09:38 Cordarone PO 200 mg DAILY KEV Administration Apixaban 5 mg 03/23/18 18:00 03/24/18 18:27 Eliquis PO 5 mg BID KEV Administration Heparin Sodium (Porcine) 5,000 units 03/26/18 10:00 03/26/18 22:16 Heparin SC 5,000 units Q12 KEV Administration Dexmedetomidine HCl 200 mcg/ 50 mls @ 5.01 mls/hr 03/23/18 17:51 03/26/18 17:30 Sodium Chloride IV 0 mcg/kg/hr TITR PRN 0 mls/hr Intubation Titration Protocol 0.2 MCG/KG/HR Norepinephrine Bitartrate 4 mg 254 mls @ 15.24 mls/hr 03/24/18 10:20 03/27/18 20:05 / Sodium Chloride IV 5 mcg/min .[id number] PRN 19.05 mls/hr TITRATE PER MD ORDER Administration Protocol 4 MCG/MIN Piperacillin Sod/Tazobactam Sod 2.25 gm in 50 mls @ 200 mls/hr 03/27/18 14:00 03/28/18 05:11 Zosyn 2.25 Gm Iv Premix IVPB 200 mls/hr Q8 KEV Administration Protocol Fluconazole 50 mls @ 100 mls/hr 03/27/18 10:00 03/27/18 10:50 Diflucan Iv 100 Mg/50 Ml Ns IVPB 100 mls/hr DAILY KEV Administration Protocol Lorazepam 2 mg 03/27/18 10:19 03/28/18 04:52 Ativan IVP 2 mg Q4H PRN Administration Anxiety Nystatin 1 applic 03/23/18 18:00 03/27/18 17:40 Nystop Topical Powder TOP 1 applic BID KEV Administration Pantoprazole Sodium 40 mg 03/27/18 10:00 03/27/18 09:38 Protonix Susp PO 40 mg DAILY KEV Administration Silver Sulfadiazine 0 ea 03/26/18 10:00 03/27/18 17:39 Silvadene 1% 20 Gm TOP 1 applic BID KEV Administration - Patient Studies Lab Studies: Microbiology Studies 03/27/18 03:41 Blood Culture - Preliminary Blood-Venous NO GROWTH AFTER 24 HOURS 03/27/18 03:41 Blood Culture - Preliminary Blood-Venous NO GROWTH AFTER 24 HOURS 03/23/18 08:25 Blood Culture - Preliminary Blood NO GROWTH AFTER 4 DAYS 03/23/18 08:00 Blood Culture - Preliminary Blood NO GROWTH AFTER 4 DAYS Lab Studies 03/28/18 03/28/18 03/28/18 Range/Units 06:50 06:50 05:18 WBC 11.3 H (4.8-10.8) K/uL RBC 3.77 L (3.80-5.20) Mil/uL Hgb 9.6 L (11.0-16.0) g/dL Hct 31.2 L (34.0-47.0) % MCV 82.8 (81.0-99.0) fL MCH 25.4 L (27.0-31.0) pg MCHC 30.7 L (33.0-37.0) g/dL RDW 25.5 H (11.5-14.5) % Plt Count 109 L D (130-400) K/uL MPV 9.1 (7.2-11.7) fL Neut % (Auto) 90.8 H (50.0-75.0) % Lymph % (Auto) 5.2 L (20.0-40.0) % [place] % (Auto) 3.0 (0.0-10.0) % Eos % (Auto) 0.5 (0.0-4.0) % Baso % (Auto) 0.5 (0.0-2.0) % Neut # (Auto) 10.2 H (1.8-7.0) K/uL Lymph # (Auto) 0.6 L (1.0-4.3) K/uL [place] # (Auto) 0.3 (0.0-0.8) K/uL Eos # (Auto) 0.1 (0.0-0.7) K/uL Baso # (Auto) 0.1 (0.0-0.2) K/uL Neutrophils % (Manual) (50-75) % Band Neutrophils % (0-2) % Lymphocytes % (Manual) (20-40) % Monocytes % (Manual) (0-10) % Eosinophils % (Manual) (0-4) % Platelet Estimate (NORMAL) Giant Platelets Polychromasia Hypochromasia (manual) Poikilocytosis (manual Anisocytosis (manual) Microcytosis (manual) Macrocytosis (manual) Target Cells Ovalocytes Puncture Site Rb pCO2 57 H (35-45) mm/Hg pO2 51 L (80-100) mm/Hg HCO3 33.9 H (21-28) mmol/L ABG pH 7.43 (7.35-7.45) ABG Total CO2 39.5 H (22-28) mmol/L ABG O2 Saturation 89.3 L (95-98) % ABG Base Excess 11.8 H (-2.0-3.0) mmol/L ABG Hemoglobin 9.6 L (11.7-17.4) g/dL ABG Carboxyhemoglobin 3.4 H (0.5-1.5) % POC ABG HHb (Measured) 10.3 H (0.0-5.0) % ABG Methemoglobin 0.5 (0.0-3.0) % Pawel Test Na A-a O2 Difference 234.0 mm/Hg Respiratory Index 4.6 Hgb O2 Saturation 85.8 L (95.0-98.0) % Vent Mode Prvc Mechanical Rate 14 FiO2 50.0 % Tidal Volume 420 PEEP 5 Sodium 147 (132-148) mmol/L Potassium 3.5 L (3.6-5.2) mmol/L Chloride 107 (98-107) mmol/L Carbon Dioxide 38 H (22-30) mmol/L Anion Gap 5 L (10-20) BUN 33 H (7-17) mg/dL Creatinine 0.7 (0.7-1.2) mg/dL Est GFR ( Amer) > 60 Est GFR (Non-Af Amer) > 60 Random Glucose 164 H (65-105) mg/dL Calcium 7.7 L (8.6-10.4) mg/dl Phosphorus 2.8 (2.5-4.5) mg/dL Magnesium 2.0 (1.6-2.3) mg/dL Total Bilirubin 1.4 H (0.2-1.3) mg/dL AST 9 L (14-36) U/L ALT 21 (9-52) U/L Alkaline Phosphatase 50 (38-126) U/L Total Protein 4.9 L (6.3-8.3) g/dL Albumin 2.3 L (3.5-5.0) g/dL Globulin 2.6 (2.2-3.9) gm/dL Albumin/Globulin Ratio 0.9 L (1.0-2.1) Urine Color (YELLOW) Urine Clarity (Clear) Urine pH (5.0-8.0) Ur Specific [place] (1.003-1.030) Urine Protein (NEGATIVE) mg/dL Urine Glucose (UA) (Normal) mg/dL Urine Ketones (NEGATIVE) mg/dL Urine Blood (NEGATIVE) Urine Nitrate (NEGATIVE) Urine Bilirubin (NEGATIVE) Urine Urobilinogen (0.2-1.0) mg/dL Ur Leukocyte Esterase (Negative) Nehemiah/uL Urine WBC (Auto) (0-5) /hpf Urine RBC (Auto) (0-3) /hpf Ur Squamous Epith Cells (0-5) /hpf Urine Bacteria (<OCC) Hyaline Casts (0-2) /lpf 03/27/18 03/27/18 Range/Units 13:42 06:19 WBC (4.8-10.8) K/uL RBC (3.80-5.20) Mil/uL Hgb (11.0-16.0) g/dL Hct (34.0-47.0) % MCV (81.0-99.0) fL MCH (27.0-31.0) pg MCHC (33.0-37.0) g/dL RDW (11.5-14.5) % Plt Count (130-400) K/uL MPV (7.2-11.7) fL Neut % (Auto) (50.0-75.0) % Lymph % (Auto) (20.0-40.0) % [place] % (Auto) (0.0-10.0) % Eos % (Auto) (0.0-4.0) % Baso % (Auto) (0.0-2.0) % Neut # (Auto) (1.8-7.0) K/uL Lymph # (Auto) (1.0-4.3) K/uL [place] # (Auto) (0.0-0.8) K/uL Eos # (Auto) (0.0-0.7) K/uL Baso # (Auto) (0.0-0.2) K/uL Neutrophils % (Manual) 84 H (50-75) % Band Neutrophils % 2 (0-2) % Lymphocytes % (Manual) 9 L (20-40) % Monocytes % (Manual) 4 (0-10) % Eosinophils % (Manual) 1 (0-4) % Platelet Estimate Normal (NORMAL) Giant Platelets Present Polychromasia Slight Hypochromasia (manual) Slight Poikilocytosis (manual Slight Anisocytosis (manual) Marked Microcytosis (manual) Slight Macrocytosis (manual) Slight Target Cells Slight Ovalocytes Slight Puncture Site pCO2 (35-45) mm/Hg pO2 (80-100) mm/Hg HCO3 (21-28) mmol/L ABG pH (7.35-7.45) ABG Total CO2 (22-28) mmol/L ABG O2 Saturation (95-98) % ABG Base Excess (-2.0-3.0) mmol/L ABG Hemoglobin (11.7-17.4) g/dL ABG Carboxyhemoglobin (0.5-1.5) % POC ABG HHb (Measured) (0.0-5.0) % ABG Methemoglobin (0.0-3.0) % Pawel Test A-a O2 Difference mm/Hg Respiratory Index Hgb O2 Saturation (95.0-98.0) % Vent Mode Mechanical Rate FiO2 % Tidal Volume PEEP Sodium (132-148) mmol/L Potassium (3.6-5.2) mmol/L Chloride (98-107) mmol/L Carbon Dioxide (22-30) mmol/L Anion Gap (10-20) BUN (7-17) mg/dL Creatinine (0.7-1.2) mg/dL Est GFR ( Amer) Est GFR (Non-Af Amer) Random Glucose (65-105) mg/dL Calcium (8.6-10.4) mg/dl Phosphorus (2.5-4.5) mg/dL Magnesium (1.6-2.3) mg/dL Total Bilirubin (0.2-1.3) mg/dL AST (14-36) U/L ALT (9-52) U/L Alkaline Phosphatase (38-126) U/L Total Protein (6.3-8.3) g/dL Albumin (3.5-5.0) g/dL Globulin (2.2-3.9) gm/dL Albumin/Globulin Ratio (1.0-2.1) Urine Color Yellow (YELLOW) Urine Clarity Clear (Clear) Urine pH 6.0 (5.0-8.0) Ur Specific [place] 1.008 (1.003-1.030) Urine Protein Negative (NEGATIVE) mg/dL Urine Glucose (UA) Normal (Normal) mg/dL Urine Ketones Negative (NEGATIVE) mg/dL Urine Blood 3+ H (NEGATIVE) Urine Nitrate Negative (NEGATIVE) Urine Bilirubin Negative (NEGATIVE) Urine Urobilinogen 4.0 H (0.2-1.0) mg/dL Ur Leukocyte Esterase 2+ H (Negative) Nehemiah/uL Urine WBC (Auto) 20 H (0-5) /hpf Urine RBC (Auto) 104 H (0-3) /hpf Ur Squamous Epith Cells < 1 (0-5) /hpf Urine Bacteria Rare (<OCC) Hyaline Casts 6-10 H (0-2) /lpf Laboratory Results - last 24 hr 03/27/18 03/27/18 03/28/18 06:19 13:42 05:18 WBC RBC Hgb Hct MCV MCH MCHC RDW Plt Count MPV Neut % (Auto) Lymph % (Auto) [place] % (Auto) Eos % (Auto) Baso % (Auto) Neut # (Auto) Lymph # (Auto) [place] # (Auto) Eos # (Auto) Baso # (Auto) Neutrophils % (Manual) 84 H Band Neutrophils % 2 Lymphocytes % (Manual) 9 L Monocytes % (Manual) 4 Eosinophils % (Manual) 1 Platelet Estimate Normal Giant Platelets Present Polychromasia Slight Hypochromasia (manual) Slight Poikilocytosis (manual Slight Anisocytosis (manual) Marked Microcytosis (manual) Slight Macrocytosis (manual) Slight Target Cells Slight Ovalocytes Slight Puncture Site Rb pCO2 57 H pO2 51 L HCO3 33.9 H ABG pH 7.43 ABG Total CO2 39.5 H ABG O2 Saturation 89.3 L ABG Base Excess 11.8 H ABG Hemoglobin 9.6 L ABG Carboxyhemoglobin 3.4 H POC ABG HHb (Measured) 10.3 H ABG Methemoglobin 0.5 Pawel Test Na A-a O2 Difference 234.0 Respiratory Index 4.6 Hgb O2 Saturation 85.8 L Vent Mode Prvc Mechanical Rate 14 FiO2 50.0 Tidal Volume 420 PEEP 5 Sodium Potassium Chloride Carbon Dioxide Anion Gap BUN Creatinine Est GFR ( Amer) Est GFR (Non-Af Amer) Random Glucose Calcium Phosphorus Magnesium Total Bilirubin AST ALT Alkaline Phosphatase Total Protein Albumin Globulin Albumin/Globulin Ratio Urine Color Yellow Urine Clarity Clear Urine pH 6.0 Ur Specific [place] 1.008 Urine Protein Negative Urine Glucose (UA) Normal Urine Ketones Negative Urine Blood 3+ H Urine Nitrate Negative Urine Bilirubin Negative Urine Urobilinogen 4.0 H Ur Leukocyte Esterase 2+ H Urine WBC (Auto) 20 H Urine RBC (Auto) 104 H Ur Squamous Epith Cells < 1 Urine Bacteria Rare Hyaline Casts 6-10 H 03/28/18 03/28/18 06:50 06:50 WBC 11.3 H RBC 3.77 L Hgb 9.6 L Hct 31.2 L MCV 82.8 MCH 25.4 L MCHC 30.7 L RDW 25.5 H Plt Count 109 L D MPV 9.1 Neut % (Auto) 90.8 H Lymph % (Auto) 5.2 L [place] % (Auto) 3.0 Eos % (Auto) 0.5 Baso % (Auto) 0.5 Neut # (Auto) 10.2 H Lymph # (Auto) 0.6 L [place] # (Auto) 0.3 Eos # (Auto) 0.1 Baso # (Auto) 0.1 Neutrophils % (Manual) Band Neutrophils % Lymphocytes % (Manual) Monocytes % (Manual) Eosinophils % (Manual) Platelet Estimate Giant Platelets Polychromasia Hypochromasia (manual) Poikilocytosis (manual Anisocytosis (manual) Microcytosis (manual) Macrocytosis (manual) Target Cells Ovalocytes Puncture Site pCO2 pO2 HCO3 ABG pH ABG Total CO2 ABG O2 Saturation ABG Base Excess ABG Hemoglobin ABG Carboxyhemoglobin POC ABG HHb (Measured) ABG Methemoglobin Pawel Test A-a O2 Difference Respiratory Index Hgb O2 Saturation Vent Mode Mechanical Rate FiO2 Tidal Volume PEEP Sodium 147 Potassium 3.5 L Chloride 107 Carbon Dioxide 38 H Anion Gap 5 L BUN 33 H Creatinine 0.7 Est GFR ( Amer) > 60 Est GFR (Non-Af Amer) > 60 Random Glucose 164 H Calcium 7.7 L Phosphorus 2.8 Magnesium 2.0 Total Bilirubin 1.4 H AST 9 L ALT 21 Alkaline Phosphatase 50 Total Protein 4.9 L Albumin 2.3 L Globulin 2.6 Albumin/Globulin Ratio 0.9 L Urine Color Urine Clarity Urine pH Ur Specific [place] Urine Protein Urine Glucose (UA) Urine Ketones Urine Blood Urine Nitrate Urine Bilirubin Urine Urobilinogen Ur Leukocyte Esterase Urine WBC (Auto) Urine RBC (Auto) Ur Squamous Epith Cells Urine Bacteria Hyaline Casts Radiology Impressions: Radiology Impressions Chest X-Ray 03/27/18 07:00 IMPRESSION: Extensive opacity mid and lower right lung. Possible pneumonia versus atelectasis. Improving left perihilar opacity. Small bilateral pleural effusion. Lines and tubes unchanged. Critical Care Progress Note - Nutrition Nutrition: Nutrition Category Date Time Status NPO Diet [DIET] Diets 03/24/18 Breakfast Active
[2018-03-28] MEDS: Fluconazole IV 100mg/50 ml NS 50 ML IVPB SCH (09:14)
[2018-03-28] MEDS: Pantoprazole 40 mg Susp UD PO SCH (09:15)
[2018-03-28] MEDS: Silver Sulfadiazine 1% Cream (20 gm) TOP SCH ×2 (09:15→17:51)
[2018-03-28 10:04] LABS: TOTAL CELLS COUNTED 100
[2018-03-28 10:05] LABS: BANDS 1 % (0-2); LYMPHOCYTE 5 % (20-40); MONOCYTE 3 % (0-10); NEUTROPHIL 91 % (50-75)
[2018-03-28 10:06] LABS: ANISOCYTOSIS MODERATE; PLATELET ESTIMATE SLIGHTLY DECREASED (NORMAL); POIKILOCYTOSIS SLIGHT
[2018-03-28 10:07] LABS: HYPOCHROMIC SLIGHT; OVALOCYTES SLIGHT; POLYCHROMIC SLIGHT; SCHISTOCYTES SLIGHT
[2018-03-28 10:08] LABS: LARGE PLATELETS PRESENT; SPHEROCYTES SLIGHT
--- NOTE | 2018-03-28 11:33 | RAD ---
Date of service: 03/28/2018 PROCEDURE: CHEST RADIOGRAPH, 1 VIEW HISTORY: Plural effusion COMPARISON: 03/27/2018 FINDINGS: LUNGS: No definite consolidation. Bilateral pleural effusion. Opacity at right base may additionally reflect consolidation. Apparent increased effusion compared to prior examination. However, this may be due to dependent posterior pleural fluid due to change in patient position. PLEURA: As above CARDIOVASCULAR: No aortic atherosclerotic calcification present. ET tube, NG tube and left IJ central venous catheter are all unchanged in position, grossly. OSSEOUS STRUCTURES: No significant abnormalities. VISUALIZED UPPER ABDOMEN: Normal. OTHER FINDINGS: None. IMPRESSION: Apparent increasing bilateral pleural effusion. Persistent opacity at right base, possible pneumonia.
--- NOTE | 2018-03-28 11:59 | CP.PCM.PN ---
Subjective - Date & Time of Evaluation Date of Evaluation: 03/28/18 Time of Evaluation: 11:56 - Subjective Subjective: pt still entubated in ventilator inr still high vss Objective - Vital Signs/Intake and Output Vital Signs (last 24 hours): Temp Pulse Resp BP Pulse Ox 100.5 F H 98 H 17 115/68 98 03/28/18 08:00 03/28/18 11:05 03/28/18 11:05 03/28/18 11:05 03/28/18 11:05 Intake and Output: 03/28/18 03/28/18 06:59 18:59 Intake Total 1090.4 625.3 Output Total 1440 380 Balance -349.6 245.3 - Medications Medications: Current Medications Acetaminophen (Tylenol 325mg Tab) 650 mg PO Q6 PRN PRN Reason: Fever >100.4 F Last Admin: 03/28/18 05:55 Dose: 650 mg Albuterol/Ipratropium (Duoneb 3 Mg/0.5 Mg (3 Ml) Ud) 3 ml INH RQ4 [facility] Last Admin: 03/28/18 11:16 Dose: 3 ml Amiodarone HCl (Cordarone) 200 mg PO DAILY [facility] Last Admin: 03/28/18 09:14 Dose: 200 mg Apixaban (Eliquis) 5 mg PO BID [facility] Last Admin: 03/24/18 18:27 Dose: 5 mg Furosemide (Lasix) 20 mg IVP DAILY [facility] Last Admin: 03/28/18 09:14 Dose: 20 mg Heparin Sodium (Porcine) (Heparin) 5,000 units SC Q12 [facility] Last Admin: 03/26/18 22:16 Dose: 5,000 units Dexmedetomidine HCl 200 mcg/ (Sodium Chloride) 50 mls @ 5.01 mls/hr IV TITR PRN; Protocol PRN Reason: Intubation Last Titration: 03/26/18 17:30 Dose: 0 mcg/kg/hr, 0 mls/hr Norepinephrine Bitartrate 4 mg (/ Sodium Chloride) 254 mls @ 15.24 mls/hr IV . [id number] PRN; Protocol PRN Reason: TITRATE PER MD ORDER Last Titration: 03/28/18 10:21 Dose: 3 mcg/min, 11.43 mls/hr Piperacillin Sod/Tazobactam Sod (Zosyn 2.25 Gm Iv Premix) 2.25 gm in 50 mls @ 200 mls/hr IVPB Q8 [facility]; Protocol Last Admin: 03/28/18 05:11 Dose: 200 mls/hr Fluconazole (Diflucan Iv 100 Mg/50 Ml Ns) 50 mls @ 100 mls/hr IVPB DAILY [facility]; Protocol Last Admin: 03/28/18 09:14 Dose: 100 mls/hr Lorazepam (Ativan) 2 mg IVP Q4H PRN PRN Reason: Anxiety Last Admin: 03/28/18 04:52 Dose: 2 mg Nystatin (Nystop Topical Powder) 1 applic TOP BID KEV Last Admin: 03/28/18 09:15 Dose: 1 applic Pantoprazole Sodium (Protonix Susp) 40 mg PO DAILY [facility] Last Admin: 03/28/18 09:15 Dose: 40 mg Silver Sulfadiazine (Silvadene 1% 20 Gm) 0 ea TOP BID KEV Last Admin: 03/28/18 09:15 Dose: 1 applic - Labs Labs: 03/28/18 06:50 03/28/18 06:50 PT 24.3 SECONDS (9.7-12.2) H 03/27/18 06:19 INR 2.2 03/27/18 06:19 APTT 32 SECONDS (21-34) 03/25/18 08:11 - Constitutional Appears: Non-toxic - Head Exam Head Exam: ATRAUMATIC - Eye Exam Eye Exam: Normal appearance Pupil Exam: NORMAL ACCOMODATION - ENT Exam ENT Exam: Mucous Membranes Moist - Respiratory Exam Respiratory Exam: Decreased Breath Sounds - Cardiovascular Exam Cardiovascular Exam: Irregular Rhythm - GI/Abdominal Exam GI & Abdominal Exam: Normal Bowel Sounds - Extremities Exam Additional comments: dressing on both legs - Skin Skin Exam: Pallor Assessment and Plan - Assessment and Plan (Free Text) Assessment: fever pnmonia chf pleural effusion aneamia celulitis lower ext dm Plan: cont as per ccu
--- NOTE | 2018-03-28 14:02 | CP.PCM.CON ---
History of Present Illness - History of Present Illness History of Present Illness: 82 y/o female transferred from [facility] with increasing lethargy and weakness with respiratory failure due to CHF and Pneumonia Now intubated in the ICU ID consult requested for this PMH- CHF, HTN, Afib on AC, ? CVA pleural effusions, recent [facility] admission for exac CHF, pneumonia Left shoulder dislocation PSH- Denies FH- DM and Cancer Meds- Aldactone 25mg q2d; Amiodarone 200mg qd; Duoneb; Eliquis 5mg po bid; Milk of magensiea as needed; Protonix 40mg po daily; Verapamil 40mg q8h; Vitamin b complex 1 tablet daily Allergies- warfarin Social- Denies tobacco, drugs, etoh Review of Systems - Review of Systems Systems not reviewed;Unavailable: Altered Mental Status, Intubated - Constitutional Constitutional: As Per HPI - EENT Eyes: absent: As Per HPI, Blind Spots, Blurred Vision, Change in Vision, Decreased Night Vision, Diplopia, Discharge, Dry Eye, Exophthalmos, Floaters, Irritation, Itchy Eyes, Loss of Peripheral Vision, Pain, Photophobia, Requires Corrective Lenses, Sees Flashes, Spots in Vision, Tunnel Vision, Other Visual Disturbances, Loss of Vision, Other Ears: absent: As Per HPI, Decreased Hearing, Ear Discharge, Ear Pain, Tinnitus, Abnormal Hearing, Disequilibrium, Dizziness, Other Nose/Mouth/Throat: absent: As Per HPI, Epistaxis, Nasal Congestion, Nasal Discharge, Nasal Obstruction, Nasal Trauma, Nose Pain, Post Nasal Drip, Sinus Pain, Sinus Pressure, Bleeding Gums, Change in Voice, Dental Pain, Dry Mouth, D ysphagia, Halitosis, Hoarsness, Lip Swelling, Mouth Lesions, Mouth Pain, Odynophagia, Sore Throat, Throat Swelling, Tongue Swelling, Facial Pain, Neck Pain, Neck Mass, Other - Breasts Breasts: absent: As Per HPI, Change in Shape, Mass, Pain, Nipple Discharge, N ipple Inversion, Skin Changes, Swelling, Other - Cardiovascular Cardiovascular: As Per HPI - Respiratory Respiratory: As Per HPI - Gastrointestinal Gastrointestinal: absent: As Per HPI, Abdominal Pain, Belching, Bloating, Change in Bowel Habits, Change in Stool Character, Coffee Ground Emesis, Constipation, Cramping, Diarrhea, Dyspepsia, Dysphagia, Early Satiety, Excessive Flatus, Fecal Incontinence, Heartburn, Hematemesis, Hematochezia, Loose Stools, Melena, Nausea, Odynophagia, Temesmus, Vomiting, Other - Genitourinary Genitourinary: absent: As Per HPI, Change in Urinary Stream, Difficulty Urinating, Dysuria, Flank Pain, Hematuria, Pyuria, Nocturia, Urinary Incontinence, Urinary Frequency, Urinary Hesitance, Urinary Urgency, Voiding Freq/Small Amts, Freq UTI, Hx Renal/Bladder Calculi, Hx /Renal Surgery, Bladder Distension, Other - Reproductive: Female Reproductive:Female: absent: As Per HPI, Amenorrhea, Amenorrhea/ Control, Currently Menstual, Cycle <21 Days, Cycle >35 Days, Cycle Variable, Menses 1-7 Days, Menses >/= 8 Days, Menses Variable, Cycle > 4 Weeks Between, No Menses for 6 Months, Heavy Menses, Light Menses, Normal Menses, Spotting Between Cycles, S/P Hysterectomy, Menopausal, Post Menopausal, Premenarche, Abnormal Vaginal Bleeding, Dysmenorrhea, Dyspareunia, Genital Lesions, Genital Pruritis, Pelvic Pain, Prolapse Symptoms, Sexual Dysfunction, Vaginal Discharge, Vaginal Dryness, Vaginal Odor, Vaginal Pruritis, Other - Menstruation Menstruation: absent: As Per HPI, Amenorrhea, Amenorrhea/ Control, Currently Menstual, Cycle <21 Days, Cycle >35 Days, Cycle Variable, Menses 1-7 Days, Menses >/= 8 Days, Menses Variable, Cycle > 4 Weeks Between, No Menses for 6 Months, Heavy Menses, Light Menses, Normal Menses, Spotting Between Cycles, S/P Hysterectomy, Menopausal, Post Menopausal, Premenarche, Abnormal Vaginal Bleeding, Dysmenorrhea, Other - Musculoskeletal Musculoskeletal: As Per HPI - Integumentary Integumentary: As Per HPI - Neurological Neurological: absent: As Per HPI, Abnormal Gait, Abnormal Hearing, Abnormal Movements, Abnormal Speech, Behavioral Changes, Burning Sensations, Confusion, Convulsions, Disequilibrium, Dizziness, Numbness, Focal Weakness, Frequent Falls, Headaches, Lack of Coordination, Loss of Vision, Memory Loss, Paresthesias, Radicular Pain, Restless Legs, Sensory Deficit, Syncope, Tingling, Tremor, Vertigo, Weakness, Other Visual Disturbances, Other - Psychiatric Psychiatric: absent: As Per HPI, Abnormal Sleep Pattern, Anhedonia, Anxiety, Auditory Hallucinations, Behavioral Changes, Change in Appetite, Change in Libido, Confusion, Depression, Difficulty Concentrating, Hallucinations, Homicidal Ideation, Hopelessness, Irritability, Memory Loss, Mood Swings, Panic Attacks, Paranoia, Suicidal Ideation, Visual Hallucinations, Tactile Hallucinations, Other - Endocrine Endocrine: absent: As Per HPI, Change in Body Appearance, Change in Libido, Cold Intolorance, Deepening of Voice, Excessive Sweating, Fatigue, Flushing, Heat Intolorance, Increase in Ring/Shoe/Hat Size, Palpitations, Polydipsia, Polyphagia, Polyuria, Other - Hematologic/Lymphatic Hematologic: absent: As Per HPI, Easy Bleeding, Easy Bruising, Lymphadenopathy, Other Past Patient History - Infectious Disease Hx of Infectious Diseases: None - Tetanus Immunizations Tetanus Immunization: Unknown - Past Medical History & Family History Past Medical History?: Yes - Past Social History Smoking Status: Never Smoked - CARDIAC Hx Atrial Fibrillation: Yes Hx Congestive Heart Failure: Yes - PULMONARY Hx Chronic Obstructive Pulmonary Disease (COPD): Yes - NEUROLOGICAL Hx Dementia: Yes - ENDOCRINE/METABOLIC Hx Endocrine Disorders: No - HEMATOLOGICAL/ONCOLOGICAL Hx Blood Disorders: No - INTEGUMENTARY Other/Comment: weeping edema, on bilateral lower ext - MUSCULOSKELETAL/RHEUMATOLOGICAL Hx Falls: Yes - GASTROINTESTINAL Hx Gastrointestinal Disorders: No - GENITOURINARY/GYNECOLOGICAL Hx Genitourinary Disorders: No - PSYCHIATRIC Hx Substance Use: No - SURGICAL HISTORY Hx Surgeries: No - ANESTHESIA Hx Anesthesia: Yes Meds Allergies/Adverse Reactions: Allergies Allergy/AdvReac Type Severity Reaction Status Date / Time warfarin [From Coumadin] Allergy Verified 03/23/18 08:16 - Medications Medications: Current Medications Acetaminophen (Tylenol 325mg Tab) 650 mg PO Q6 PRN PRN Reason: Fever >100.4 F Last Admin: 03/28/18 11:57 Dose: 650 mg Albuterol/Ipratropium (Duoneb 3 Mg/0.5 Mg (3 Ml) Ud) 3 ml INH RQ4 [facility] Last Admin: 03/28/18 11:16 Dose: 3 ml Amiodarone HCl (Cordarone) 200 mg PO DAILY [facility] Last Admin: 03/28/18 09:14 Dose: 200 mg Apixaban (Eliquis) 5 mg PO BID [facility] Last Admin: 03/24/18 18:27 Dose: 5 mg Furosemide (Lasix) 20 mg IVP DAILY [facility] Last Admin: 03/28/18 09:14 Dose: 20 mg Heparin Sodium (Porcine) (Heparin) 5,000 units SC Q12 [facility] Last Admin: 03/26/18 22:16 Dose: 5,000 units Dexmedetomidine HCl 200 mcg/ (Sodium Chloride) 50 mls @ 5.01 mls/hr IV TITR PRN; Protocol PRN Reason: Intubation Last Titration: 03/26/18 17:30 Dose: 0 mcg/kg/hr, 0 mls/hr Norepinephrine Bitartrate 4 mg (/ Sodium Chloride) 254 mls @ 15.24 mls/hr IV .[id number] PRN; Protocol PRN Reason: TITRATE PER MD ORDER Last Titration: 03/28/18 12:06 Dose: 2 mcg/min, 7.62 mls/hr Piperacillin Sod/Tazobactam Sod (Zosyn 2.25 Gm Iv Premix) 2.25 gm in 50 mls @ 200 mls/hr IVPB Q8 [facility]; Protocol Last Admin: 03/28/18 13:29 Dose: 200 mls/hr Fluconazole (Diflucan Iv 100 Mg/50 Ml Ns) 50 mls @ 100 mls/hr IVPB DAILY [facility]; Protocol Last Admin: 03/28/18 09:14 Dose: 100 mls/hr Lorazepam (Ativan) 2 mg IVP Q4H PRN PRN Reason: Anxiety Last Admin: 03/28/18 04:52 Dose: 2 mg Nystatin (Nystop Topical Powder) 1 applic TOP BID [facility] Last Admin: 03/28/18 09:15 Dose: 1 applic Pantoprazole Sodium (Protonix Susp) 40 mg PO DAILY [facility] Last Admin: 03/28/18 09:15 Dose: 40 mg Silver Sulfadiazine (Silvadene 1% 20 Gm) 0 ea TOP BID [facility] Last Admin: 03/28/18 09:15 Dose: 1 applic Physical Exam - Constitutional Appears: Non-toxic, Chronically Ill - Head Exam Head Exam: NORMOCEPHALIC - Eye Exam Eye Exam: absent: Scleral icterus - ENT Exam ENT Exam: Mucous Membranes Dry, Normal External Ear Exam - Neck Exam Neck exam: Negative for: Lymphadenopathy - Respiratory Exam Respiratory Exam: Decreased Breath Sounds, Prolonged Expiratory Phase, Rhonchi - Cardiovascular Exam Cardiovascular Exam: REGULAR RHYTHM, +S1, +S2 - GI/Abdominal Exam GI & Abdominal Exam: Diminished Bowel Sounds, Distended, Soft. absent: Tenderness - Rectal Exam Rectal Exam: Deferred - Exam Exam: NORMAL INSPECTION - Extremities Exam Extremities exam: Positive for: pedal edema, pedal pulses present. Negative for: calf tenderness, tenderness Additional comments: VASC: Pulses are palpable b/l, Temp gradient cool to cool from proximal to distal, Cap refill time: <3 secs x 10, no edema present. DERM: dry, flaky, hyperkeratotic skin noted to b/l LE distal to the knee joint, no open lesions present, unstageable decubitus ulceration noted to right heel. NEURO: Gross sensation intact b/l ORTHO: No tenderness to palpation noted to lower extremity b/l - Back Exam Back exam: absent: CVA tenderness (L), CVA tenderness (R) - Neurological Exam Neurological exam: Altered Additional comments: responds to name being called opens eyes - Psychiatric Exam Psychiatric exam: Depressed - Skin Skin Exam: Dry Results - Vital Signs Recent Vital Signs: Last Vital Signs Temp 98.9 F 03/28/18 12:57 Pulse 102 H 03/28/18 13:05 Resp 10 L 03/28/18 13:05 BP 111/77 03/28/18 13:05 Pulse Ox 94 L 03/28/18 13:05 - Labs Result Diagrams: 03/28/18 06:50 03/28/18 06:50 Labs: Laboratory Results - last 24 hr 03/27/18 03/28/18 03/28/18 13:42 05:18 06:50 WBC 11.3 H RBC 3.77 L Hgb 9.6 L Hct 31.2 L MCV 82.8 MCH 25.4 L MCHC 30.7 L RDW 25.5 H Plt Count 109 L D MPV 9.1 Neut % (Auto) 90.8 H Lymph % (Auto) 5.2 L Mclennan % (Auto) 3.0 Eos % (Auto) 0.5 Baso % (Auto) 0.5 Neut # (Auto) 10.2 H Lymph # (Auto) 0.6 L Mclennan # (Auto) 0.3 Eos # (Auto) 0.1 Baso # (Auto) 0.1 Neutrophils % (Manual) 91 H Band Neutrophils % 1 Lymphocytes % (Manual) 5 L Monocytes % (Manual) 3 Platelet Estimate Slightly decreased L Large Platelets Present Polychromasia Slight Hypochromasia (manual) Slight Poikilocytosis (manual Slight Anisocytosis (manual) Moderate Spherocytes Slight Ovalocytes Slight Schistocytes Slight Puncture Site Rb pCO2 57 H pO2 51 L HCO3 33.9 H ABG pH 7.43 ABG Total CO2 39.5 H ABG O2 Saturation 89.3 L ABG Base Excess 11.8 H ABG Hemoglobin 9.6 L ABG Carboxyhemoglobin 3.4 H POC ABG HHb (Measured) 10.3 H ABG Methemoglobin 0.5 Pawel Test Na A-a O2 Difference 234.0 Respiratory Index 4.6 Hgb O2 Saturation 85.8 L Vent Mode Prvc Mechanical Rate 14 FiO2 50.0 Tidal Volume 420 PEEP 5 Sodium Potassium Chloride Carbon Dioxide Anion Gap BUN Creatinine Est GFR ( Amer) Est GFR (Non-Af Amer) Random Glucose Calcium Phosphorus Magnesium Total Bilirubin AST ALT Alkaline Phosphatase Total Protein Albumin Globulin Albumin/Globulin Ratio Urine Color Yellow Urine Clarity Clear Urine pH 6.0 Ur Specific [place] 1.008 Urine Protein Negative Urine Glucose (UA) Normal Urine Ketones Negative Urine Blood 3+ H Urine Nitrate Negative Urine Bilirubin Negative Urine Urobilinogen 4.0 H Ur Leukocyte Esterase 2+ H Urine WBC (Auto) 20 H Urine RBC (Auto) 104 H Ur Squamous Epith Cells < 1 Urine Bacteria Rare Hyaline Casts 6-10 H 03/28/18 06:50 WBC RBC Hgb Hct MCV MCH MCHC RDW Plt Count MPV Neut % (Auto) Lymph % (Auto) Mclennan % (Auto) Eos % (Auto) Baso % (Auto) Neut # (Auto) Lymph # (Auto) Mclennan # (Auto) Eos # (Auto) Baso # (Auto) Neutrophils % (Manual) Band Neutrophils % Lymphocytes % (Manual) Monocytes % (Manual) Platelet Estimate Large Platelets Polychromasia Hypochromasia (manual) Poikilocytosis (manual Anisocytosis (manual) Spherocytes Ovalocytes Schistocytes Puncture Site pCO2 pO2 HCO3 ABG pH ABG Total CO2 ABG O2 Saturation ABG Base Excess ABG Hemoglobin ABG Carboxyhemoglobin POC ABG HHb (Measured) ABG Methemoglobin Pawel Test A-a O2 Difference Respiratory Index Hgb O2 Saturation Vent Mode Mechanical Rate FiO2 Tidal Volume PEEP Sodium 147 Potassium 3.5 L Chloride 107 Carbon Dioxide 38 H Anion Gap 5 L BUN 33 H Creatinine 0.7 Est GFR ( Amer) > 60 Est GFR (Non-Af Amer) > 60 Random Glucose 164 H Calcium 7.7 L Phosphorus 2.8 Magnesium 2.0 Total Bilirubin 1.4 H AST 9 L ALT 21 Alkaline Phosphatase 50 Total Protein 4.9 L Albumin 2.3 L Globulin 2.6 Albumin/Globulin Ratio 0.9 L Urine Color Urine Clarity Urine pH Ur Specific [place] Urine Protein Urine Glucose (UA) Urine Ketones Urine Blood Urine Nitrate Urine Bilirubin Urine Urobilinogen Ur Leukocyte Esterase Urine WBC (Auto) Urine RBC (Auto) Ur Squamous Epith Cells Urine Bacteria Hyaline Casts Assessment & Plan (1) Acute respiratory failure Status: Acute (2) Atrial fibrillation and flutter Status: Acute (3) CHF (congestive heart failure) Status: Acute (4) Pleural effusion Status: Acute - Assessment and Plan (Free Text) Assessment: 82 yo female with resp failure CHF Pneumonia cultures so far negative Pulmonary on board/ thoracentesis has beeen donr IV antibiotics ordered empirically
[2018-03-28] MEDS: Piperacillin/Tazobact 3.375 GM in Sodium Chloride 100 ML IVPB SCH ×2 (15:00→21:15)
--- NOTE | 2018-03-28 15:19 | CP.PCM.PN ---
Subjective - Date & Time of Evaluation Date of Evaluation: 03/28/18 Time of Evaluation: 14:40 - Subjective Subjective: Patient seen and examined Intubated on ventilatory support Not tolerating weaning Low-grade fever Tolerating feeding On IV antibiotics Objective - Vital Signs/Intake and Output Vital Signs (last 24 hours): Temp Pulse Resp BP Pulse Ox 98.9 F 102 H 10 L 111/77 94 L 03/28/18 12:57 03/28/18 13:05 03/28/18 13:05 03/28/18 13:05 03/28/18 13:05 Intake and Output: 03/28/18 03/28/18 06:59 18:59 Intake Total 1090.4 697.8 Output Total 1440 480 Balance -349.6 217.8 - Medications Medications: Current Medications Acetaminophen (Tylenol 325mg Tab) 650 mg PO Q6 PRN PRN Reason: Fever >100.4 F Last Admin: 03/28/18 11:57 Dose: 650 mg Albuterol/Ipratropium (Duoneb 3 Mg/0.5 Mg (3 Ml) Ud) 3 ml INH RQ4 [facility] Last Admin: 03/28/18 11:16 Dose: 3 ml Amiodarone HCl (Cordarone) 200 mg PO DAILY [facility] Last Admin: 03/28/18 09:14 Dose: 200 mg Apixaban (Eliquis) 5 mg PO BID [facility] Last Admin: 03/24/18 18:27 Dose: 5 mg Furosemide (Lasix) 20 mg IVP DAILY [facility] Last Admin: 03/28/18 09:14 Dose: 20 mg Heparin Sodium (Porcine) (Heparin) 5,000 units SC Q12 [facility] Last Admin: 03/26/18 22:16 Dose: 5,000 units Dexmedetomidine HCl 200 mcg/ (Sodium Chloride) 50 mls @ 5.01 mls/hr IV TITR PRN; Protocol PRN Reason: Intubation Last Titration: 03/26/18 17:30 Dose: 0 mcg/kg/hr, 0 mls/hr Norepinephrine Bitartrate 4 mg (/ Sodium Chloride) 254 mls @ 15.24 mls/hr IV .[id number] PRN; Protocol PRN Reason: TITRATE PER MD ORDER Last Titration: 03/28/18 12:06 Dose: 2 mcg/min, 7.62 mls/hr Fluconazole (Diflucan Iv 100 Mg/50 Ml Ns) 50 mls @ 100 mls/hr IVPB DAILY [facility]; Protocol Last Admin: 03/28/18 09:14 Dose: 100 mls/hr Azithromycin (Zithromax 500mg In Ns Addvantage) 500 mg in 250 mls @ 167 mls/hr IVPB Q24H [facility]; Protocol Piperacillin Sod/Tazobactam (Sod 3.375 gm/ Sodium Chloride) 100 mls @ 200 mls/hr IVPB Q8H [facility]; Protocol Lorazepam (Ativan) 2 mg IVP Q4H PRN PRN Reason: Anxiety Last Admin: 03/28/18 04:52 Dose: 2 mg Nystatin (Nystop Topical Powder) 1 applic TOP BID [facility] Last Admin: 03/28/18 09:15 Dose: 1 applic Pantoprazole Sodium (Protonix Susp) 40 mg PO DAILY [facility] Last Admin: 03/28/18 09:15 Dose: 40 mg Silver Sulfadiazine (Silvadene 1% 20 Gm) 0 ea TOP BID [facility] Last Admin: 03/28/18 09:15 Dose: 1 applic - Labs Labs: 03/28/18 06:50 03/28/18 06:50 PT 24.3 SECONDS (9.7-12.2) H 03/27/18 06:19 INR 2.2 03/27/18 06:19 APTT 32 SECONDS (21-34) 03/25/18 08:11 - Head Exam Head Exam: ATRAUMATIC, NORMOCEPHALIC - ENT Exam ENT Exam: Mucous Membranes Moist - Respiratory Exam Respiratory Exam: Decreased Breath Sounds - Cardiovascular Exam Cardiovascular Exam: REGULAR RHYTHM - GI/Abdominal Exam GI & Abdominal Exam: Soft, Normal Bowel Sounds Assessment and Plan (1) Acute respiratory failure Status: Acute (2) Atrial fibrillation and flutter Status: Acute (3) CHF (congestive heart failure) Status: Acute (4) Pleural effusion Status: Acute
[2018-03-28] MEDS: Azithromycin 500mg/250ML NS 500 MG/250 ML BAG IVPB SCH (16:37)
--- NOTE | 2018-03-28 17:20 | CP.PCM.PN ---
Subjective - Date & Time of Evaluation Date of Evaluation: 03/28/18 Time of Evaluation: 17:45 - Subjective Subjective: Still intubated and sedated. Objective - Vital Signs/Intake and Output Vital Signs (last 24 hours): Temp Pulse Resp BP Pulse Ox 100.7 F H 97 H 14 111/75 98 03/28/18 16:00 03/28/18 16:07 03/28/18 16:07 03/28/18 16:07 03/28/18 15:05 Intake and Output: 03/28/18 03/28/18 06:59 18:59 Intake Total 1090.4 949.0 Output Total 1440 535 Balance -349.6 414.0 - Medications Medications: Current Medications Acetaminophen (Tylenol 325mg Tab) 650 mg PO Q6 PRN PRN Reason: Fever >100.4 F Last Admin: 03/28/18 11:57 Dose: 650 mg Albuterol/Ipratropium (Duoneb 3 Mg/0.5 Mg (3 Ml) Ud) 3 ml INH RQ4 [facility] Last Admin: 03/28/18 16:11 Dose: 3 ml Amiodarone HCl (Cordarone) 200 mg PO DAILY [facility] Last Admin: 03/28/18 09:14 Dose: 200 mg Apixaban (Eliquis) 5 mg PO BID [facility] Last Admin: 03/24/18 18:27 Dose: 5 mg Furosemide (Lasix) 20 mg IVP DAILY [facility] Last Admin: 03/28/18 09:14 Dose: 20 mg Heparin Sodium (Porcine) (Heparin) 5,000 units SC Q12 [facility] Last Admin: 03/26/18 22:16 Dose: 5,000 units Dexmedetomidine HCl 200 mcg/ (Sodium Chloride) 50 mls @ 5.01 mls/hr IV TITR P RN; Protocol PRN Reason: Intubation Last Titration: 03/26/18 17:30 Dose: 0 mcg/kg/hr, 0 mls/hr Norepinephrine Bitartrate 4 mg (/ Sodium Chloride) 254 mls @ 15.24 mls/hr IV .[id number] PRN; Protocol PRN Reason: TITRATE PER MD ORDER Last Titration: 03/28/18 16:20 Dose: 1 mcg/min, 3.81 mls/hr Fluconazole (Diflucan Iv 100 Mg/50 Ml Ns) 50 mls @ 100 mls/hr IVPB DAILY [facility]; Protocol Last Admin: 03/28/18 09:14 Dose: 100 mls/hr Azithromycin (Zithromax 500mg In Ns Addvantage) 500 mg in 250 mls @ 167 mls/hr IVPB Q24H [facility]; Protocol Last Admin: 03/28/18 16:37 Dose: 167 mls/hr Piperacillin Sod/Tazobactam (Sod 3.375 gm/ Sodium Chloride) 100 mls @ 200 mls/hr IVPB Q8H [facility]; Protocol Last Admin: 03/28/18 15:00 Dose: Not Given Lorazepam (Ativan) 2 mg IVP Q4H PRN PRN Reason: Anxiety Last Admin: 03/28/18 16:31 Dose: 2 mg Nystatin (Nystop Topical Powder) 1 applic TOP BID [facility] Last Admin: 03/28/18 09:15 Dose: 1 applic Pantoprazole Sodium (Protonix Susp) 40 mg PO DAILY [facility] Last Admin: 03/28/18 09:15 Dose: 40 mg Silver Sulfadiazine (Silvadene 1% 20 Gm) 0 ea TOP BID [facility] Last Admin: 03/28/18 09:15 Dose: 1 applic - Labs Labs: 03/28/18 06:50 03/28/18 06:50 PT 24.3 SECONDS (9.7-12.2) H 03/27/18 06:19 INR 2.2 03/27/18 06:19 APTT 32 SECONDS (21-34) 03/25/18 08:11 - Neck Exam Neck Exam: Normal Inspection - Respiratory Exam Additional comments: Intubated and sedated. - Cardiovascular Exam Cardiovascular Exam: Irregular Rhythm - Extremities Exam Extremities Exam: Normal Inspection - Neurological Exam Additional comments: Sedated. Assessment and Plan (1) Atrial fibrillation and flutter Assessment & Plan: Rate is controlled Continue Amiodarone and cardizem. Maintain therapeutic anticoagulation. Status: Acute (2) CHF (congestive heart failure) Assessment & Plan: Diuretics with fluid restriction. Status: Acute
[2018-03-29] MEDS: Albuterol-Ipratrop 3 mg / 0.5 (3 ml) UD INH SCH ×6 (00:06→20:08)
[2018-03-29] MEDS: Piperacillin/Tazobact 3.375 GM in Sodium Chloride 100 ML IVPB SCH ×3 (05:30→22:50)
[2018-03-29 05:43] LABS: ABG ALLEN TEST POS; ARTERIAL BLOOD GAS HCO3 36.8 mmol/L (21-28); ARTERIAL BLOOD GAS O2 SAT 96.7 % (95-98); ARTERIAL BLOOD GAS PCO2 53 mm/Hg (35-45); ARTERIAL BLOOD GAS PH 7.49 (7.35-7.45); ARTERIAL BLOOD GAS PO2 70 mm/Hg (80-100)
[2018-03-29 05:44] LABS: BASO # 0.1 K/uL (0.0-0.2); BASO % 0.6 % (0.0-2.0); EOS # 0.2 K/uL (0.0-0.7); EOS % 1.9 % (0.0-4.0); HEMOGLOBIN 8.9 g/dL (11.0-16.0); LYMPH # 0.6 K/uL (1.0-4.3); LYMPH % 7.5 % (20.0-40.0); MEAN CELL VOLUME 83.8 fL (81.0-99.0); MEAN CORPUSCULAR HEMOGLOBIN 25.3 pg (27.0-31.0); MEAN CORPUSCULAR HGB CONC 30.2 g/dL (33.0-37.0); MEAN PLATELET VOLUME 9.8 fL (7.2-11.7); MONO # 0.3 K/uL (0.0-0.8); MONO % 3.5 % (0.0-10.0); NEUT # 6.9 K/uL (1.8-7.0); NEUT % 86.5 % (50.0-75.0); PLATELET COUNT 108 K/uL (130-400); RBC 3.53 Mil/uL (3.80-5.20); RED CELL DISTRIBUTION WIDTH 25.7 % (11.5-14.5)
[2018-03-29 06:22] LABS: ALB/GLOB RATIO 0.9 (1.0-2.1); ALBUMIN 2.3 g/dL (3.5-5.0); ALT/SGPT 19 U/L (9-52); AST/SGOT 15 U/L (14-36); BLOOD UREA NITROGEN 37 mg/dL (7-17); CALCIUM 7.6 mg/dl (8.6-10.4); GFR NON-AFRICAN AMERICAN > 60
[2018-03-29 08:44] LABS: EOSINOPHIL 1 % (0-4); LYMPHOCYTE 8 % (20-40); MONOCYTE 3 % (0-10); NEUTROPHIL 88 % (50-75); PLATELET ESTIMATE SLIGHTLY DECREASED (NORMAL); TOTAL CELLS COUNTED 100
[2018-03-29 08:45] LABS: ANISOCYTOSIS SLIGHT; BURR CELLS SLIGHT; HYPOCHROMIC SLIGHT; OVALOCYTES SLIGHT; POIKILOCYTOSIS SLIGHT; TARGET CELLS SLIGHT
[2018-03-29 08:46] LABS: GIANT PLATELETS PRESENT; LARGE PLATELETS PRESENT
--- NOTE | 2018-03-29 09:02 | RAD ---
Date of service: 03/29/2018 HISTORY: vent/ff-up COMPARISON: No prior. FINDINGS: LUNGS: 03/28/2018 PLEURA: Large right and moderate left pleural effusion. Increased opacity in upper right lung. Possible loculated pleural fluid. Cannot rule out superimposed consolidation. Follow-up advised. No consolidation seen elsewhere. CARDIOVASCULAR: No aortic atherosclerotic calcification present. Normal cardiac size. No congestive change. ET tube, NG tube and left IJ central venous catheter are all grossly unchanged. OSSEOUS STRUCTURES: No significant abnormalities. VISUALIZED UPPER ABDOMEN: Normal. OTHER FINDINGS: None. IMPRESSION: Large right and moderate left pleural effusion. Increasing opacity in upper right nyla thorax. This could represent consolidation from pneumonia or atelectasis or loculated pleural fluid. Follow-up advised.
[2018-03-29] MEDS: Pantoprazole 40 mg Susp UD PO SCH (09:12)
[2018-03-29] MEDS: Fluconazole IV 100mg/50 ml NS 50 ML IVPB SCH (09:12)
[2018-03-29] MEDS: Silver Sulfadiazine 1% Cream (20 gm) TOP SCH ×2 (09:13→18:49)
[2018-03-29 10:36] LABS: INR 1.9; PROTHROMBIN TIME 21.2 SECONDS (9.7-12.2)
--- NOTE | 2018-03-29 11:10 | CP.CCUPN ---
CCU Subjective - Physician Review Subjective (Free Text): PGY-1 Critical Care Progress Note for Dr. Carbone's service Patient seen and examined at bedside. 12 point ROS limited as patient is intubated. INR still elevated. Critical Care Time Spent (in minutes): 35 CCU Objective - Vital Signs / Intake & Output Vital Signs (Last 4 hours): Vital Signs Temp Pulse Resp BP Pulse Ox 03/29/18 10:07 115 H 14 109/86 99 03/29/18 09:12 113/76 03/29/18 09:05 116 H 25 H 113/76 96 03/29/18 08:05 105 H 20 109/69 03/29/18 08:00 99.8 F H Intake and Output (Last 8hrs): Intake & Output 03/28/18 03/29/18 03/29/18 22:59 06:59 14:59 Intake Total 770.1 540 595 Output Total 315 315 565 Balance 455.1 225 30 Weight 226 lb Intake: IV 15 Intake, IV Amount 315.1 100 350 Left Medial Port Internal 300 100 300 Jugular lt ij tlc proximal 15.1 50 Tube Feeding 440 440 245 Output: Urine 315 315 565 Urethral (Dover) 315 315 565 Other: # Bowel Movements 0 - Physical Exam Head: Positive for: Atraumatic, Normocephalic, Other (central line in left IJ) Pupils: Positive for: PERRL Extroacular Muscles: Positive for: EOMI Conjunctiva: Positive for: Normal Mouth: Positive for: Dry Neck: Positive for: Normal Range of Motion. Negative for: JVD, Lymphadenopathy Respiratory/Chest: Positive for: Good Air Exchange. Negative for: Respiratory Distress, Accessory Muscle Use, Wheezes, Tachypneic Cardiovascular: Positive for: Regular Rate and Rhythm, Normal S1, S2. Negative for: Murmurs, Irregular Rhythm Abdomen: Positive for: Normal Bowel Sounds. Negative for: Tenderness, Distention, Peritoneal Signs Upper Extremity: Positive for: Normal Inspection. Negative for: Cyanosis, Edema Lower Extremity: Positive for: Normal Inspection. Negative for: Edema Skin: Positive for: Dry, Normal Color. Negative for: Diaphoretic Psychiatric: Positive for: Alert - Medications Active Medications: Active Medications Generic Name Dose Route Start Last Admin Trade Name Freq PRN Reason Stop Dose Admin Acetaminophen 650 mg 03/23/18 15:59 03/29/18 00:30 Tylenol 325mg Tab PO 650 mg Q6 PRN Administration Fever >100.4 F Albuterol/Ipratropium 3 ml 03/23/18 20:00 03/29/18 08:30 Duoneb 3 Mg/0.5 Mg (3 Ml) Ud INH 3 ml RQ4 CAMILLA Administration Amiodarone HCl 200 mg 03/23/18 16:45 03/29/18 09:12 Cordarone PO 200 mg DAILY CAMILLA Administration Apixaban 5 mg 03/23/18 18:00 03/24/18 18:27 Eliquis PO 5 mg BID CAMILLA Administration Furosemide 20 mg 03/28/18 10:00 03/29/18 09:12 Lasix IVP 20 mg DAILY CAMILLA Administration Heparin Sodium (Porcine) 5,000 units 03/26/18 10:00 03/26/18 22:16 Heparin SC 5,000 units Q12 CAMILLA Administration Dexmedetomidine HCl 200 mcg/ 50 mls @ 5.01 mls/hr 03/23/18 17:51 03/26/18 17:30 Sodium Chloride IV 0 mcg/kg/hr TITR PRN 0 mls/hr Intubation Titration Protocol 0.2 MCG/KG/HR Norepinephrine Bitartrate 4 mg 254 mls @ 15.24 mls/hr 03/24/18 10:20 03/28/18 17:48 / Sodium Chloride IV Infused .[id number] PRN Titration TITRATE PER MD ORDER Protocol 4 MCG/MIN Fluconazole 50 mls @ 100 mls/hr 03/27/18 10:00 03/29/18 09:12 Diflucan Iv 100 Mg/50 Ml Ns IVPB 100 mls/hr DAILY CAMILLA Administration Protocol Azithromycin 500 mg in 250 mls @ 167 mls/hr 03/28/18 14:15 03/28/18 16:37 Zithromax 500mg In Ns Addvantage IVPB 167 mls/hr Q24H CAMILLA Administration Protocol Piperacillin Sod/Tazobactam 100 mls @ 200 mls/hr 03/28/18 14:15 03/29/18 05:30 Sod 3.375 gm/ Sodium Chloride IVPB 200 mls/hr Q8H CAMILLA Administration Protocol Potassium Chloride 20 meq in 100 mls @ 50 mls/hr 03/29/18 07:15 03/29/18 10:52 Potassium Chloride 20 Meq/100 Ml IVPB 03/29/18 13:14 50 mls/hr Q2H CAMILLA Administration Lorazepam 2 mg 03/27/18 10:19 03/29/18 08:16 Ativan IVP 2 mg Q4H PRN Administration Anxiety Nystatin 1 applic 03/23/18 18:00 03/29/18 09:23 Nystop Topical Powder TOP 1 applic BID CAMILLA Administration Pantoprazole Sodium 40 mg 03/27/18 10:00 03/29/18 09:12 Protonix Susp PO 40 mg DAILY CAMILLA Administration Silver Sulfadiazine 0 ea 03/26/18 10:00 03/29/18 09:13 Silvadene 1% 20 Gm TOP 1 applic BID CAMILLA Administration - Patient Studies Lab Studies: Microbiology Studies 03/27/18 03:41 Blood Culture - Preliminary Blood-Venous NO GROWTH AFTER 48 HOURS 03/27/18 03:41 Blood Culture - Preliminary Blood-Venous NO GROWTH AFTER 48 HOURS 03/27/18 13:42 Urine Culture - Final Urine,Dover No Growth (<1,000 CFU/ML) 03/23/18 08:25 Blood Culture - Final Blood NO GROWTH AFTER 5 DAYS Gram Stain - Final TEST NOT PERFORMED 03/23/18 08:00 Blood Culture - Final Blood NO GROWTH AFTER 5 DAYS Gram Stain - Final TEST NOT PERFORMED Lab Studies 03/29/18 03/29/18 03/29/18 Range/Units 10:20 05:35 05:35 WBC 8.0 (4.8-10.8) K/uL RBC 3.53 L (3.80-5.20) Mil/uL Hgb 8.9 L (11.0-16.0) g/dL Hct 29.6 L (34.0-47.0) % MCV 83.8 (81.0-99.0) fL MCH 25.3 L (27.0-31.0) pg MCHC 30.2 L (33.0-37.0) g/dL RDW 25.7 H (11.5-14.5) % Plt Count 108 L (130-400) K/uL MPV 9.8 (7.2-11.7) fL Neut % (Auto) 86.5 H (50.0-75.0) % Lymph % (Auto) 7.5 L (20.0-40.0) % Kendall % (Auto) 3.5 (0.0-10.0) % Eos % (Auto) 1.9 (0.0-4.0) % Baso % (Auto) 0.6 (0.0-2.0) % Neut # (Auto) 6.9 (1.8-7.0) K/uL Lymph # (Auto) 0.6 L (1.0-4.3) K/uL Kendall # (Auto) 0.3 (0.0-0.8) K/uL Eos # (Auto) 0.2 (0.0-0.7) K/uL Baso # (Auto) 0.1 (0.0-0.2) K/uL Neutrophils % (Manual) 88 H (50-75) % Lymphocytes % (Manual) 8 L (20-40) % Monocytes % (Manual) 3 (0-10) % Eosinophils % (Manual) 1 (0-4) % Platelet Estimate Slightly decreased L (NORMAL) Large Platelets Present Giant Platelets Present Hypochromasia (manual) Slight Poikilocytosis (manual Slight Anisocytosis (manual) Slight Target Cells Slight Ovalocytes Slight Shalini Cells Slight PT 21.2 H (9.7-12.2) SECONDS INR 1.9 APTT 39 H (21-34) SECONDS Puncture Site pCO2 (35-45) mm/Hg pO2 (80-100) mm/Hg HCO3 (21-28) mmol/L ABG pH (7.35-7.45) ABG Total CO2 (22-28) mmol/L ABG O2 Saturation (95-98) % ABG Base Excess (-2.0-3.0) mmol/L ABG Hemoglobin (11.7-17.4) g/dL ABG Carboxyhemoglobin (0.5-1.5) % POC ABG HHb (Measured) (0.0-5.0) % ABG Methemoglobin (0.0-3.0) % Pawel Test A-a O2 Difference mm/Hg Respiratory Index Hgb O2 Saturation (95.0-98.0) % Vent Mode Mechanical Rate FiO2 % Tidal Volume PEEP Sodium 147 (132-148) mmol/L Potassium 3.3 L (3.6-5.2) mmol/L Chloride 107 (98-107) mmol/L Carbon Dioxide 39 H (22-30) mmol/L Anion Gap 4 L (10-20) BUN 37 H (7-17) mg/dL Creatinine 0.6 L (0.7-1.2) mg/dL Est GFR ( Amer) > 60 Est GFR (Non-Af Amer) > 60 Random Glucose 127 H D (65-105) mg/dL Calcium 7.6 L (8.6-10.4) mg/dl Phosphorus 2.5 (2.5-4.5) mg/dL Magnesium 2.1 (1.6-2.3) mg/dL Total Bilirubin 1.1 (0.2-1.3) mg/dL AST 15 (14-36) U/L ALT 19 (9-52) U/L Alkaline Phosphatase 48 (38-126) U/L Total Protein 4.9 L (6.3-8.3) g/dL Albumin 2.3 L (3.5-5.0) g/dL Globulin 2.6 (2.2-3.9) gm/dL Albumin/Globulin Ratio 0.9 L (1.0-2.1) Procalcitonin (0.19-0.49) NG/ML Ur L.pneumophila Ag (NEGATIVE) 03/29/18 03/28/18 03/28/18 Range/Units 05:20 14:57 14:57 WBC (4.8-10.8) K/uL RBC (3.80-5.20) Mil/uL Hgb (11.0-16.0) g/dL Hct (34.0-47.0) % MCV (81.0-99.0) fL MCH (27.0-31.0) pg MCHC (33.0-37.0) g/dL RDW (11.5-14.5) % Plt Count (130-400) K/uL MPV (7.2-11.7) fL Neut % (Auto) (50.0-75.0) % Lymph % (Auto) (20.0-40.0) % Kendall % (Auto) (0.0-10.0) % Eos % (Auto) (0.0-4.0) % Baso % (Auto) (0.0-2.0) % Neut # (Auto) (1.8-7.0) K/uL Lymph # (Auto) (1.0-4.3) K/uL Kendall # (Auto) (0.0-0.8) K/uL Eos # (Auto) (0.0-0.7) K/uL Baso # (Auto) (0.0-0.2) K/uL Neutrophils % (Manual) (50-75) % Lymphocytes % (Manual) (20-40) % Monocytes % (Manual) (0-10) % Eosinophils % (Manual) (0-4) % Platelet Estimate (NORMAL) Large Platelets Giant Platelets Hypochromasia (manual) Poikilocytosis (manual Anisocytosis (manual) Target Cells Ovalocytes Blythe Cells PT (9.7-12.2) SECONDS INR APTT (21-34) SECONDS Puncture Site Rr pCO2 53 H (35-45) mm/Hg pO2 70 L (80-100) mm/Hg HCO3 36.8 H (21-28) mmol/L ABG pH 7.49 H (7.35-7.45) ABG Total CO2 42.0 H (22-28) mmol/L ABG O2 Saturation 96.7 (95-98) % ABG Base Excess 15.3 H (-2.0-3.0) mmol/L ABG Hemoglobin 9.0 L (11.7-17.4) g/dL ABG Carboxyhemoglobin 2.7 H (0.5-1.5) % POC ABG HHb (Measured) 3.2 (0.0-5.0) % ABG Methemoglobin 1.4 (0.0-3.0) % Pawel Test Pos A-a O2 Difference 220.0 mm/Hg Respiratory Index 3.1 Hgb O2 Saturation 92.6 L (95.0-98.0) % Vent Mode Prvc Mechanical Rate 14 FiO2 50.0 % Tidal Volume 420 PEEP 5 Sodium (132-148) mmol/L Potassium (3.6-5.2) mmol/L Chloride (98-107) mmol/L Carbon Dioxide (22-30) mmol/L Anion Gap (10-20) BUN (7-17) mg/dL Creatinine (0.7-1.2) mg/dL Est GFR ( Amer) Est GFR (Non-Af Amer) Random Glucose (65-105) mg/dL Calcium (8.6-10.4) mg/dl Phosphorus (2.5-4.5) mg/dL Magnesium (1.6-2.3) mg/dL Total Bilirubin (0.2-1.3) mg/dL AST (14-36) U/L ALT (9-52) U/L Alkaline Phosphatase (38-126) U/L Total Protein (6.3-8.3) g/dL Albumin (3.5-5.0) g/dL Globulin (2.2-3.9) gm/dL Albumin/Globulin Ratio (1.0-2.1) Procalcitonin 0.88 H (0.19-0.49) NG/ML Ur L.pneumophila Ag Negative (NEGATIVE) Laboratory Results - last 24 hr 03/28/18 03/28/18 03/29/18 14:57 14:57 05:20 WBC RBC Hgb Hct MCV MCH MCHC RDW Plt Count MPV Neut % (Auto) Lymph % (Auto) Kendall % (Auto) Eos % (Auto) Baso % (Auto) Neut # (Auto) Lymph # (Auto) Kendall # (Auto) Eos # (Auto) Baso # (Auto) Neutrophils % (Manual) Lymphocytes % (Manual) Monocytes % (Manual) Eosinophils % (Manual) Platelet Estimate Large Platelets Giant Platelets Hypochromasia (manual) Poikilocytosis (manual Anisocytosis (manual) Target Cells Ovalocytes Blythe Cells PT INR APTT Puncture Site Rr pCO2 53 H pO2 70 L HCO3 36.8 H ABG pH 7.49 H ABG Total CO2 42.0 H ABG O2 Saturation 96.7 ABG Base Excess 15.3 H ABG Hemoglobin 9.0 L ABG Carboxyhemoglobin 2.7 H POC ABG HHb (Measured) 3.2 ABG Methemoglobin 1.4 Pawel Test Pos A-a O2 Difference 220.0 Respiratory Index 3.1 Hgb O2 Saturation 92.6 L Vent Mode Prvc Mechanical Rate 14 FiO2 50.0 Tidal Volume 420 PEEP 5 Sodium Potassium Chloride Carbon Dioxide Anion Gap BUN Creatinine Est GFR ( Amer) Est GFR (Non-Af Amer) Random Glucose Calcium Phosphorus Magnesium Total Bilirubin AST ALT Alkaline Phosphatase Total Protein Albumin Globulin Albumin/Globulin Ratio Procalcitonin 0.88 H Ur L.pneumophila Ag Negative 03/29/18 03/29/18 03/29/18 05:35 05:35 10:20 WBC 8.0 RBC 3.53 L Hgb 8.9 L Hct 29.6 L MCV 83.8 MCH 25.3 L MCHC 30.2 L RDW 25.7 H Plt Count 108 L MPV 9.8 Neut % (Auto) 86.5 H Lymph % (Auto) 7.5 L Kendall % (Auto) 3.5 Eos % (Auto) 1.9 Baso % (Auto) 0.6 Neut # (Auto) 6.9 Lymph # (Auto) 0.6 L Kendall # (Auto) 0.3 Eos # (Auto) 0.2 Baso # (Auto) 0.1 Neutrophils % (Manual) 88 H Lymphocytes % (Manual) 8 L Monocytes % (Manual) 3 Eosinophils % (Manual) 1 Platelet Estimate Slightly decreased L Large Platelets Present Giant Platelets Present Hypochromasia (manual) Slight Poikilocytosis (manual Slight Anisocytosis (manual) Slight Target Cells Slight Ovalocytes Slight Shalini Cells Slight PT 21.2 H INR 1.9 APTT 39 H Puncture Site pCO2 pO2 HCO3 ABG pH ABG Total CO2 ABG O2 Saturation ABG Base Excess ABG Hemoglobin ABG Carboxyhemoglobin POC ABG HHb (Measured) ABG Methemoglobin Pawel Test A-a O2 Difference Respiratory Index Hgb O2 Saturation Vent Mode Mechanical Rate FiO2 Tidal Volume PEEP Sodium 147 Potassium 3.3 L Chloride 107 Carbon Dioxide 39 H Anion Gap 4 L BUN 37 H Creatinine 0.6 L Est GFR ( Amer) > 60 Est GFR (Non-Af Amer) > 60 Random Glucose 127 H D Calcium 7.6 L Phosphorus 2.5 Magnesium 2.1 Total Bilirubin 1.1 AST 15 ALT 19 Alkaline Phosphatase 48 Total Protein 4.9 L Albumin 2.3 L Globulin 2.6 Albumin/Globulin Ratio 0.9 L Procalcitonin Ur L.pneumophila Ag Radiology Impressions: Radiology Impressions Chest X-Ray 03/28/18 07:00 IMPRESSION: Apparent increasing bilateral pleural effusion. Persistent opacity at right base, possible pneumonia. Chest X-Ray 03/29/18 06:00 IMPRESSION: Large right and moderate left pleural effusion. Increasing opacity in upper right nyla thorax. This could represent consolidation from pneumonia or atelectasis or loculated pleural fluid. Follow-up advised. Results Reviewed to Date: Yes Review of Systems - Review of Systems Systems not reviewed;Unavailable: Intubated Critical Care Progress Note - Ventilator Checklist Head of Bed 30 Degrees: Yes Daily Sedation Vacation: Yes Daily Assessment of Readiness to Wean: Yes Daily Spontaneous Breathing Trial: Yes PUD Prophalyxis: Yes DVT Prophylaxis: Yes Oral Care with Chlorhexidine Gluconate {CHG}: Yes - Vent Settings MODE:: PRVC TIDAL VOLUME:: 420 RESP RATE:: 14 FIO2:: 50 PEEP:: 5 - Extremities/Vascular Does the Patient have a Central Venous Catheter?: Yes Insertion Site: Internal Jugular Vein Does the Patient need a Central Venous Catheter?: Yes Does the Patient have a [place] Catheter?: Yes Does the Patient need a [place] Catheter?: Yes Catheter Insertion Criteria: Need for accurate measurement of output in critically ill patient - Prophylaxis GI Prophylaxis GI: PPI - Nutrition Nutrition: Nutrition Category Date Time Status NPO Diet [DIET] Diets 03/24/18 Breakfast Active Assessment/Plan - Assessment and Plan (Free Text) Assessment: Patient is a 82 yo female w/ PMH of CHF, HTN, Afib on AC, and hx of pleural effusions admitted to hospital for bilateral pleural effusions with overlying PNA. Patient was intubated after patient began to respond to only painful stimuli with GCS of 6. Patient is hypotensive and levophed was started with plans for central line and thoracentesis. Patient on Eliquis so procedure is delayed a bit to decrease bleeding risk. Neuro: Alert, Awake, Responsive to verbal and tactile stimuli; Sedated on Precedex drip; Pulm: Intubated; On precedex drip and Lorazepam IV 2mg q4h prn; Duoneb PRN; Cxray shows bilateral pulmonary edema and effusions; Duoneb; Trachasp positive for yeast species; Cardio: Normotensive currently, Levophed drip dc'ed; Central line in left IJ vein Hx of Afib: Amiodarone 200mg po daily Hx of CHF: Lasix 20mg IV q12 Echo: Shows diastolic dysfunction; With moderate tricuspid regurgitation which can cause possible recurrent edema Etiology for recurrent pleural effusions CHF vs valvulopathy vs Infectious process (less likely) GI: NPO; No acute issues; Protonix 40mg IV daily; On Jevity Tube feeds; 1 x dose of miralax Endo: No acute issues Heme: Elevated INR, AC held; Repeat INR in AM Renal: Urine culture positive for yeast species- Fluconazole IVPB; Low potassium repleted with KCl 20meq x3 Derm: Chronic bilateral foot ulcers- Podiatry on board; Sacral ulcer unstagea ble- Continue wound care recs ID: Consolidations on chest CT concerning for PNA; Currently Afebrile with no elevated WBC; Tylenol 650mg po q6 prn; Azithromycin/Zosyn and Fluconazole daily GI PPX: Protonix 40mg IV daily DVT PPX: Eliquis 5mg po bid camilla- held; Heparin 5000 units sc [id number] On Jevity Tube feeds PGY-1 [facility] d/w Dr. Carbone
--- NOTE | 2018-03-29 11:44 | CP.PCM.PN ---
Subjective - Date & Time of Evaluation Date of Evaluation: 03/28/18 Time of Evaluation: 14:35 - Subjective Subjective: Podiatry progress note for Dr. Shah 82F seen and evaluated at bedside for RLE wounds. [facility] & ROS limited, patient intubated and sedated. Objective - Vital Signs/Intake and Output Vital Signs (last 24 hours): Temp Pulse Resp BP Pulse Ox 99.8 F H 115 H 14 109/86 99 03/29/18 08:00 03/29/18 10:07 03/29/18 10:07 03/29/18 10:07 03/29/18 10:07 Intake and Output: 03/29/18 03/29/18 06:59 18:59 Intake Total 860 595 Output Total 440 565 Balance 420 30 - Medications Medications: Current Medications Acetaminophen (Tylenol 325mg Tab) 650 mg PO Q6 PRN PRN Reason: Fever >100.4 F Last Admin: 03/29/18 00:30 Dose: 650 mg Albuterol/Ipratropium (Duoneb 3 Mg/0.5 Mg (3 Ml) Ud) 3 ml INH RQ4 KEV Last Admin: 03/29/18 08:30 Dose: 3 ml Amiodarone HCl (Cordarone) 200 mg PO DAILY KEV Last Admin: 03/29/18 09:12 Dose: 200 mg Apixaban (Eliquis) 5 mg PO BID [facility] Last Admin: 03/24/18 18:27 Dose: 5 mg Furosemide (Lasix) 20 mg IVP DAILY KEV Last Admin: 03/29/18 09:12 Dose: 20 mg Heparin Sodium (Porcine) (Heparin) 5,000 units SC Q12 KEV Last Admin: 03/26/18 22:16 Dose: 5,000 units Dexmedetomidine HCl 200 mcg/ (Sodium Chloride) 50 mls @ 5.01 mls/hr IV TITR PRN; Protocol PRN Reason: Intubation Last Titration: 03/26/18 17:30 Dose: 0 mcg/kg/hr, 0 mls/hr Norepinephrine Bitartrate 4 mg (/ Sodium Chloride) 254 mls @ 15.24 mls/hr IV .[id number] PRN; Protocol PRN Reason: TITRATE PER MD ORDER Last Titration: 03/28/18 17:48 Dose: Infused Fluconazole (Diflucan Iv 100 Mg/50 Ml Ns) 50 mls @ 100 mls/hr IVPB DAILY KEV; Protocol Last Admin: 03/29/18 09:12 Dose: 100 mls/hr Azithromycin (Zithromax 500mg In Ns Addvantage) 500 mg in 250 mls @ 167 mls/hr IVPB Q24H KEV; Protocol Last Admin: 03/28/18 16:37 Dose: 167 mls/hr Piperacillin Sod/Tazobactam (Sod 3.375 gm/ Sodium Chloride) 100 mls @ 200 mls/hr IVPB Q8H KEV; Protocol Last Admin: 03/29/18 05:30 Dose: 200 mls/hr Potassium Chloride (Potassium Chloride 20 Meq/100 Ml) 20 meq in 100 mls @ 50 mls/hr IVPB Q2H KEV Stop: 03/29/18 13:14 Last Admin: 03/29/18 10:52 Dose: 50 mls/hr Lorazepam (Ativan) 2 mg IVP Q4H PRN PRN Reason: Anxiety Last Admin: 03/29/18 08:16 Dose: 2 mg Nystatin (Nystop Topical Powder) 1 applic TOP BID KEV Last Admin: 03/29/18 09:23 Dose: 1 applic Pantoprazole Sodium (Protonix Susp) 40 mg PO DAILY KEV Last Admin: 03/29/18 09:12 Dose: 40 mg Silver Sulfadiazine (Silvadene 1% 20 Gm) 0 ea TOP BID KEV Last Admin: 03/29/18 09:13 Dose: 1 applic - Labs Labs: 03/29/18 05:35 03/29/18 05:35 PT 21.2 SECONDS (9.7-12.2) H 03/29/18 10:20 INR 1.9 03/29/18 10:20 APTT 39 SECONDS (21-34) H 03/29/18 10:20 - Constitutional Appears: Non-toxic, No Acute Distress - Extremities Exam Additional comments: VASC: Pulses are palpable b/l, Temp gradient cool to cool from proximal to distal, Cap refill time: <3 secs x 10, no edema present. DERM: dry, flaky, hyperkeratotic skin noted to b/l LE distal to the knee joint, no open lesions present, unstageable decubitus ulceration noted to right heel. NEURO: Gross sensation intact b/l ORTHO: No tenderness to palpation noted to lower extremity b/l - Neurological Exam Neurological Exam: Awake Assessment and Plan - Assessment and Plan (Free Text) Assessment: 82F with RLE venous stasis wounds Plan: Patient seen and evaluated with attending, Dr. Shah WBC 11.3 Wound cleansed, dressed with DSD and padding to limit pressure Right heel wound stable, will continue to monitor Continue multipodus boots at all times in bed Podiatry will continue to follow
[2018-03-29] MEDS ORDERED: POLYETHYLENE GLYCOL 3350 17 GM/Dose PACKET PO ONE (11:47)
--- NOTE | 2018-03-29 14:19 | CP.PCM.PN ---
Subjective - Date & Time of Evaluation Date of Evaluation: 03/29/18 Time of Evaluation: 13:10 - Subjective Subjective: Patient seen and examined Response to vocal commands On ventilatory support CPAP trial Afebrile Tolerating feeding Objective - Vital Signs/Intake and Output Vital Signs (last 24 hours): Temp Pulse Resp BP Pulse Ox 100.6 F H 109 H 17 118/77 98 03/29/18 12:30 03/29/18 12:05 03/29/18 12:05 03/29/18 12:05 03/29/18 11:13 Intake and Output: 03/29/18 03/29/18 06:59 18:59 Intake Total 860 635 Output Total 440 645 Balance 420 -10 - Medications Medications: Current Medications Acetaminophen (Tylenol 325mg Tab) 650 mg PO Q6 PRN PRN Reason: Fever >100.4 F Last Admin: 03/29/18 12:30 Dose: 650 mg Albuterol/Ipratropium (Duoneb 3 Mg/0.5 Mg (3 Ml) Ud) 3 ml INH RQ4 KEV Last Admin: 03/29/18 12:00 Dose: 3 ml Amiodarone HCl (Cordarone) 200 mg PO DAILY KEV Last Admin: 03/29/18 09:12 Dose: 200 mg Apixaban (Eliquis) 5 mg PO BID KEV Last Admin: 03/24/18 18:27 Dose: 5 mg Furosemide (Lasix) 20 mg IVP DAILY KEV Last Admin: 03/29/18 09:12 Dose: 20 mg Heparin Sodium (Porcine) (Heparin) 5,000 units SC Q12 KEV Last Admin: 03/26/18 22:16 Dose: 5,000 units Dexmedetomidine HCl 200 mcg/ (Sodium Chloride) 50 mls @ 5.01 mls/hr IV TITR PRN; Protocol PRN Reason: Intubation Last Titration: 03/26/18 17:30 Dose: 0 mcg/kg/hr, 0 mls/hr Norepinephrine Bitartrate 4 mg (/ Sodium Chloride) 254 mls @ 15.24 mls/hr IV .[id number] PRN; Protocol PRN Reason: TITRATE PER MD ORDER Last Titration: 03/28/18 17:48 Dose: Infused Fluconazole (Diflucan Iv 100 Mg/50 Ml Ns) 50 mls @ 100 mls/hr IVPB DAILY KEV; Protocol Last Admin: 03/29/18 09:12 Dose: 100 mls/hr Azithromycin (Zithromax 500mg In Ns Addvantage) 500 mg in 250 mls @ 167 mls/hr IVPB Q24H KEV; Protocol Last Admin: 03/28/18 16:37 Dose: 167 mls/hr Piperacillin Sod/Tazobactam (Sod 3.375 gm/ Sodium Chloride) 100 mls @ 200 mls/hr IVPB Q8H KEV; Protocol Last Admin: 03/29/18 05:30 Dose: 200 mls/hr Lorazepam (Ativan) 2 mg IVP Q4H PRN PRN Reason: Anxiety Last Admin: 03/29/18 08:16 Dose: 2 mg Nystatin (Nystop Topical Powder) 1 applic TOP BID [facility] Last Admin: 03/29/18 09:23 Dose: 1 applic Pantoprazole Sodium (Protonix Susp) 40 mg PO DAILY [facility] Last Admin: 03/29/18 09:12 Dose: 40 mg Silver Sulfadiazine (Silvadene 1% 20 Gm) 0 ea TOP BID [facility] Last Admin: 03/29/18 09:13 Dose: 1 applic - Labs Labs: 03/29/18 05:35 03/29/18 05:35 PT 21.2 SECONDS (9.7-12.2) H 03/29/18 10:20 INR 1.9 03/29/18 10:20 APTT 39 SECONDS (21-34) H 03/29/18 10:20 - Head Exam Head Exam: ATRAUMATIC, NORMOCEPHALIC - ENT Exam ENT Exam: Mucous Membranes Moist - Neck Exam Neck Exam: Normal Inspection - Respiratory Exam Respiratory Exam: Decreased Breath Sounds - Cardiovascular Exam Cardiovascular Exam: REGULAR RHYTHM - GI/Abdominal Exam GI & Abdominal Exam: Soft Assessment and Plan (1) Acute respiratory failure Assessment & Plan: continue antibiotics Continue weaning NG tube feeding Status: Acute (2) Atrial fibrillation and flutter Status: Acute (3) CHF (congestive heart failure) Status: Acute (4) Pleural effusion Status: Acute
--- NOTE | 2018-03-29 14:42 | CP.PCM.PN ---
Subjective - Date & Time of Evaluation Date of Evaluation: 03/29/18 Time of Evaluation: 08:00 - Subjective Subjective: afebrile intubated moving all extremities responsive to name being called family at bedside Objective - Vital Signs/Intake and Output Vital Signs (last 24 hours): Temp Pulse Resp BP Pulse Ox 100.6 F H 115 H 19 116/88 98 03/29/18 12:30 03/29/18 14:05 03/29/18 14:05 03/29/18 14:05 03/29/18 14:05 Intake and Output: 03/29/18 03/29/18 06:59 18:59 Intake Total 860 815 Output Total 440 645 Balance 420 170 - Medications Medications: Current Medications Acetaminophen (Tylenol 325mg Tab) 650 mg PO Q6 PRN PRN Reason: Fever >100.4 F Last Admin: 03/29/18 12:30 Dose: 650 mg Albuterol/Ipratropium (Duoneb 3 Mg/0.5 Mg (3 Ml) Ud) 3 ml INH RQ4 [facility] Last Admin: 03/29/18 12:00 Dose: 3 ml Amiodarone HCl (Cordarone) 200 mg PO DAILY [facility] Last Admin: 03/29/18 09:12 Dose: 200 mg Apixaban (Eliquis) 5 mg PO BID [facility] Last Admin: 03/24/18 18:27 Dose: 5 mg Furosemide (Lasix) 20 mg IVP DAILY [facility] Last Admin: 03/29/18 09:12 Dose: 20 mg Heparin Sodium (Porcine) (Heparin) 5,000 units SC Q12 [facility] Last Admin: 03/26/18 22:16 Dose: 5,000 units Dexmedetomidine HCl 200 mcg/ (Sodium Chloride) 50 mls @ 5.01 mls/hr IV TITR PRN; Protocol PRN Reason: Intubation Last Titration: 03/26/18 17:30 Dose: 0 mcg/kg/hr, 0 mls/hr Norepinephrine Bitartrate 4 mg (/ Sodium Chloride) 254 mls @ 15.24 mls/hr IV .[id number] PRN; Protocol PRN Reason: TITRATE PER MD ORDER Last Titration: 03/28/18 17:48 Dose: Infused Fluconazole (Diflucan Iv 100 Mg/50 Ml Ns) 50 mls @ 100 mls/hr IVPB DAILY [facility]; Protocol Last Admin: 03/29/18 09:12 Dose: 100 mls/hr Azithromycin (Zithromax 500mg In Ns Addvantage) 500 mg in 250 mls @ 167 mls/hr IVPB Q24H [facility]; Protocol Last Admin: 03/28/18 16:37 Dose: 167 mls/hr Piperacillin Sod/Tazobactam (Sod 3.375 gm/ Sodium Chloride) 100 mls @ 200 mls/hr IVPB Q8H [facility]; Protocol Last Admin: 03/29/18 14:31 Dose: 200 mls/hr Lorazepam (Ativan) 2 mg IVP Q4H PRN PRN Reason: Anxiety Last Admin: 03/29/18 08:16 Dose: 2 mg Nystatin (Nystop Topical Powder) 1 applic TOP BID [facility] Last Admin: 03/29/18 09:23 Dose: 1 applic Pantoprazole Sodium (Protonix Susp) 40 mg PO DAILY [facility] Last Admin: 03/29/18 09:12 Dose: 40 mg Silver Sulfadiazine (Silvadene 1% 20 Gm) 0 ea TOP BID [facility] Last Admin: 03/29/18 09:13 Dose: 1 applic - Labs Labs: 03/29/18 05:35 03/29/18 05:35 PT 21.2 SECONDS (9.7-12.2) H 03/29/18 10:20 INR 1.9 03/29/18 10:20 APTT 39 SECONDS (21-34) H 03/29/18 10:20 - Constitutional Appears: Non-toxic, Chronically Ill - Head Exam Head Exam: NORMOCEPHALIC - Eye Exam Eye Exam: absent: Scleral icterus - ENT Exam ENT Exam: Mucous Membranes Dry - Neck Exam Neck Exam: absent: Lymphadenopathy - Respiratory Exam Respiratory Exam: Decreased Breath Sounds - Cardiovascular Exam Cardiovascular Exam: REGULAR RHYTHM - GI/Abdominal Exam GI & Abdominal Exam: Distended - Rectal Exam Rectal Exam: Deferred - Exam Exam: NORMAL INSPECTION Assessment and Plan (1) Acute respiratory failure Status: Acute (2) Atrial fibrillation and flutter Status: Acute (3) CHF (congestive heart failure) Status: Acute (4) Pleural effusion Status: Acute
[2018-03-29] MEDS: Azithromycin 500mg/250ML NS 500 MG/250 ML BAG IVPB SCH (15:12)
--- NOTE | 2018-03-29 16:31 | CP.PCM.PN ---
Subjective - Date & Time of Evaluation Date of Evaluation: 03/29/18 Time of Evaluation: 16:29 - Subjective Subjective: PT STILL ON VENTILATOR VSS LUNG DEC BREATH SOUNDS Objective - Vital Signs/Intake and Output Vital Signs (last 24 hours): Temp Pulse Resp BP Pulse Ox 99.9 F H 108 H 28 H 106/61 99 03/29/18 13:30 03/29/18 15:00 03/29/18 15:00 03/29/18 15:05 03/29/18 15:00 Intake and Output: 03/29/18 03/29/18 06:59 18:59 Intake Total 860 1095 Output Total 440 821 Balance 420 274 - Medications Medications: Current Medications Acetaminophen (Tylenol 325mg Tab) 650 mg PO Q6 PRN PRN Reason: Fever >100.4 F Last Admin: 03/29/18 12:30 Dose: 650 mg Albuterol/Ipratropium (Duoneb 3 Mg/0.5 Mg (3 Ml) Ud) 3 ml INH RQ4 KEV Last Admin: 03/29/18 12:00 Dose: 3 ml Amiodarone HCl (Cordarone) 200 mg PO DAILY KEV Last Admin: 03/29/18 09:12 Dose: 200 mg Apixaban (Eliquis) 5 mg PO BID [facility] Last Admin: 03/24/18 18:27 Dose: 5 mg Furosemide (Lasix) 20 mg IVP DAILY [facility] Last Admin: 03/29/18 09:12 Dose: 20 mg Heparin Sodium (Porcine) (Heparin) 5,000 units SC Q12 KEV Last Admin: 03/26/18 22:16 Dose: 5,000 units Dexmedetomidine HCl 200 mcg/ (Sodium Chloride) 50 mls @ 5.01 mls/hr IV TITR PRN; Protocol PRN Reason: Intubation Last Titration: 03/26/18 17:30 Dose: 0 mcg/kg/hr, 0 mls/hr Norepinephrine Bitartrate 4 mg (/ Sodium Chloride) 254 mls @ 15.24 mls/hr IV .[id number] PRN; Protocol PRN Reason: TITRATE PER MD ORDER Last Titration: 03/28/18 17:48 Dose: Infused Fluconazole (Diflucan Iv 100 Mg/50 Ml Ns) 50 mls @ 100 mls/hr IVPB DAILY [facility]; Protocol Last Admin: 03/29/18 09:12 Dose: 100 mls/hr Azithromycin (Zithromax 500mg In Ns Addvantage) 500 mg in 250 mls @ 167 mls/hr IVPB Q24H [facility]; Protocol Last Admin: 03/29/18 15:12 Dose: 167 mls/hr Piperacillin Sod/Tazobactam (Sod 3.375 gm/ Sodium Chloride) 100 mls @ 200 mls/hr IVPB Q8H [facility]; Protocol Last Admin: 03/29/18 14:31 Dose: 200 mls/hr Lorazepam (Ativan) 2 mg IVP Q4H PRN PRN Reason: Anxiety Last Admin: 03/29/18 08:16 Dose: 2 mg Nystatin (Nystop Topical Powder) 1 applic TOP BID [facility] Last Admin: 03/29/18 09:23 Dose: 1 applic Pantoprazole Sodium (Protonix Susp) 40 mg PO DAILY [facility] Last Admin: 03/29/18 09:12 Dose: 40 mg Silver Sulfadiazine (Silvadene 1% 20 Gm) 0 ea TOP BID [facility] Last Admin: 03/29/18 09:13 Dose: 1 applic - Labs Labs: 03/29/18 05:35 03/29/18 05:35 PT 21.2 SECONDS (9.7-12.2) H 03/29/18 10:20 INR 1.9 03/29/18 10:20 APTT 39 SECONDS (21-34) H 03/29/18 10:20 - Constitutional Appears: In Acute Distress - Eye Exam Eye Exam: Normal appearance Pupil Exam: NORMAL ACCOMODATION - ENT Exam ENT Exam: Normal Exam - Neck Exam Neck Exam: Normal Inspection - Respiratory Exam Respiratory Exam: Decreased Breath Sounds - Cardiovascular Exam Cardiovascular Exam: Irregular Rhythm, REGULAR RHYTHM - GI/Abdominal Exam GI & Abdominal Exam: Normal Bowel Sounds - Extremities Exam Additional comments: CELULITIS OEADEAMA - Skin Skin Exam: Pallor Assessment and Plan - Assessment and Plan (Free Text) Assessment: CHF C ARRTHMIA RESP FAILIUR CELULITIS Plan: CONT PER ORDERS
[2018-03-29] MEDS: Dexmedetomidine Hydrochloride 200 MCG in Sodium Chloride 0.9% 48 ML IV PRN (19:45)
[2018-03-30] MEDS: Albuterol-Ipratrop 3 mg / 0.5 (3 ml) UD INH SCH ×6 (00:31→20:09)
[2018-03-30] MEDS: Dexmedetomidine Hydrochloride 200 MCG in Sodium Chloride 0.9% 48 ML IV PRN ×4 (01:15→21:28)
[2018-03-30] MEDS: Piperacillin/Tazobact 3.375 GM in Sodium Chloride 100 ML IVPB SCH ×3 (06:00→22:41)
[2018-03-30 06:25] LABS: BASO % 0.8 % (0.0-2.0); EOS # 0.1 K/uL (0.0-0.7); EOS % 2.3 % (0.0-4.0); HEMOGLOBIN 9.1 g/dL (11.0-16.0); LYMPH # 0.6 K/uL (1.0-4.3); MEAN CELL VOLUME 84.1 fL (81.0-99.0); MEAN CORPUSCULAR HEMOGLOBIN 25.5 pg (27.0-31.0); MEAN CORPUSCULAR HGB CONC 30.3 g/dL (33.0-37.0); MONO # 0.3 K/uL (0.0-0.8); MONO % 4.4 % (0.0-10.0); NEUT # 4.9 K/uL (1.8-7.0); NEUT % 82.5 % (50.0-75.0); RBC 3.55 Mil/uL (3.80-5.20); RED CELL DISTRIBUTION WIDTH 25.7 % (11.5-14.5); WHITE BLOOD COUNT 5.9 K/uL (4.8-10.8)
[2018-03-30 06:29] LABS: INR 1.6; PROTHROMBIN TIME 17.1 SECONDS (9.7-12.2)
[2018-03-30 06:35] LABS: ABG ALLEN TEST POS; ARTERIAL BLOOD GAS HCO3 34.7 mmol/L (21-28); ARTERIAL BLOOD GAS O2 SAT 98.1 % (95-98); ARTERIAL BLOOD GAS PCO2 52 mm/Hg (35-45); ARTERIAL BLOOD GAS PH 7.47 (7.35-7.45); ARTERIAL BLOOD GAS PO2 80 mm/Hg (80-100); ARTERIAL BLOOD GAS TCO2 39.4 mmol/L (22-28)
[2018-03-30 06:43] LABS: ALB/GLOB RATIO 0.9 (1.0-2.1); ALBUMIN 2.3 g/dL (3.5-5.0); ALT/SGPT 18 U/L (9-52); AST/SGOT 22 U/L (14-36); BLOOD UREA NITROGEN 37 mg/dL (7-17); GFR NON-AFRICAN AMERICAN > 60
--- NOTE | 2018-03-30 08:26 | RAD ---
Date of service: 03/30/2018 HISTORY: intubated COMPARISON: Portable chest 03/29/2018. FINDINGS: LUNGS: Endotracheal and nasogastric tubes are not significantly changed in position with left central venous line also appearing stable. Bilateral pleural effusions persist and if she treated with the patient positioning now toward the left with left pleural effusion potentially increased though more shifted. There is concomitant diminished opacity appreciated at the right hemithorax although diminished airspace disease is clearly evident at the right chest with the right apex far greater aerated currently than previously shown. Left basilar airspace disease is not excluded. Right basilar opacity appears improved. No pneumothorax bilaterally. PLEURA: As above. CARDIOVASCULAR: No aortic atherosclerotic calcification present. Cardiac size obscured by left-sided effusion/consolidation. No pulmonary vascular congestion. OSSEOUS STRUCTURES: No significant abnormalities. VISUALIZED UPPER ABDOMEN: Normal. OTHER FINDINGS: None. IMPRESSION: Diminishing infiltrate right hemithorax with left basilar airspace disease difficult to exclude. Bilateral pleural effusions are identified greater at the left and right with increase in volume tension a function of shifting of the patient toward the left rather than true increased volume. No pulmonary vascular congestion. Continued clinical and radiographic monitor advised.
[2018-03-30] MEDS: Pantoprazole 40 mg Susp UD PO SCH (09:06)
[2018-03-30] MEDS: Silver Sulfadiazine 1% Cream (20 gm) TOP SCH ×2 (09:11→17:03)
[2018-03-30] MEDS: Fluconazole IV 100mg/50 ml NS 50 ML IVPB SCH (09:15)
--- NOTE | 2018-03-30 12:18 | CP.PCM.PN ---
Subjective - Date & Time of Evaluation Date of Evaluation: 03/30/18 Time of Evaluation: 12:16 - Subjective Subjective: Podiatry progress note for Dr. Shah 82F seen and evaluated at bedside for RLE wounds. [facility] & ROS limited, patient intubated and sedated. Objective - Vital Signs/Intake and Output Vital Signs (last 24 hours): Temp Pulse Resp BP Pulse Ox 98.3 F 88 16 122/96 H 100 03/30/18 04:00 03/30/18 11:01 03/30/18 11:01 03/30/18 11:01 03/30/18 10:39 Intake and Output: 03/30/18 03/30/18 06:59 18:59 Intake Total 857.9 331.5 Output Total 550 230 Balance 307.9 101.5 - Medications Medications: Current Medications Acetaminophen (Tylenol 325mg Tab) 650 mg PO Q6 PRN PRN Reason: Fever >100.4 F Last Admin: 03/29/18 18:48 Dose: 650 mg Albuterol/Ipratropium (Duoneb 3 Mg/0.5 Mg (3 Ml) Ud) 3 ml INH RQ4 KEV Last Admin: 03/30/18 11:21 Dose: 3 ml Amiodarone HCl (Cordarone) 200 mg PO DAILY [facility] Last Admin: 03/30/18 09:11 Dose: 200 mg Apixaban (Eliquis) 5 mg PO BID [facility] Last Admin: 03/24/18 18:27 Dose: 5 mg Furosemide (Lasix) 20 mg IVP DAILY [facility] Last Admin: 03/30/18 09:06 Dose: 20 mg Heparin Sodium (Porcine) (Heparin) 5,000 units SC Q12 [facility] Last Admin: 03/26/18 22:16 Dose: 5,000 units Dexmedetomidine HCl 200 mcg/ (Sodium Chloride) 50 mls @ 5.01 mls/hr IV TITR PRN; Protocol PRN Reason: Intubation Last Admin: 03/30/18 01:15 Dose: 0.25 mcg/kg/hr, 6.27 mls/hr Norepinephrine Bitartrate 4 mg (/ Sodium Chloride) 254 mls @ 15.24 mls/hr IV .[id number] PRN; Protocol PRN Reason: TITRATE PER MD ORDER Last Titration: 03/28/18 17:48 Dose: Infused Fluconazole (Diflucan Iv 100 Mg/50 Ml Ns) 50 mls @ 100 mls/hr IVPB DAILY [facility]; Protocol Last Admin: 03/30/18 09:15 Dose: 100 mls/hr Azithromycin (Zithromax 500mg In Ns Addvantage) 500 mg in 250 mls @ 167 mls/hr IVPB Q24H [facility]; Protocol Last Admin: 03/29/18 15:12 Dose: 167 mls/hr Piperacillin Sod/Tazobactam (Sod 3.375 gm/ Sodium Chloride) 100 mls @ 200 mls/hr IVPB Q8H [facility]; Protocol Last Admin: 03/30/18 06:00 Dose: 200 mls/hr Lorazepam (Ativan) 2 mg IVP Q4H PRN PRN Reason: Anxiety Last Admin: 03/29/18 08:16 Dose: 2 mg Nystatin (Nystop Topical Powder) 1 applic TOP BID [facility] Last Admin: 03/30/18 09:12 Dose: 1 applic Pantoprazole Sodium (Protonix Susp) 40 mg PO DAILY [facility] Last Admin: 03/30/18 09:06 Dose: 40 mg Silver Sulfadiazine (Silvadene 1% 20 Gm) 0 ea TOP BID [facility] Last Admin: 03/30/18 09:11 Dose: 1 applic - Labs Labs: 03/30/18 06:17 03/30/18 06:17 PT 17.1 SECONDS (9.7-12.2) H 03/30/18 06:17 INR 1.6 03/30/18 06:17 APTT 38 SECONDS (21-34) H 03/30/18 06:17 - Constitutional Appears: Non-toxic, No Acute Distress - Extremities Exam Additional comments: VASC: Pulses are palpable b/l, Temp gradient cool to cool from proximal to distal, Cap refill time: <3 secs x 10, no edema present. DERM: dry, flaky, hyperkeratotic skin noted to b/l LE distal to the knee joint, no open lesions present, unstageable decubitus ulceration noted to right heel. NEURO: Gross sensation intact b/l ORTHO: No tenderness to palpation noted to lower extremity b/l - Neurological Exam Neurological Exam: Awake - Psychiatric Exam Psychiatric exam: Normal Affect, Normal Mood Assessment and Plan - Assessment and Plan (Free Text) Assessment: 82F with RLE venous stasis wounds Plan: Patient seen and evaluated Discussed in detail with Dr. Shah WBC 5.9 Wound cleansed, dressed with DSD and padding to limit pressure Right heel wound stable, will continue to monitor Continue multipodus boots at all times in bed Podiatry will continue to follow
--- NOTE | 2018-03-30 12:19 | CP.PCM.PN ---
Subjective - Date & Time of Evaluation Date of Evaluation: 03/30/18 Time of Evaluation: 12:17 - Subjective Subjective: pt still entubated nodistress breathing beter will have thoracsyntesis tomorro then possible extubation Objective - Vital Signs/Intake and Output Vital Signs (last 24 hours): Temp Pulse Resp BP Pulse Ox 98.3 F 88 16 122/96 H 100 03/30/18 04:00 03/30/18 11:01 03/30/18 11:01 03/30/18 11:01 03/30/18 10:39 Intake and Output: 03/30/18 03/30/18 06:59 18:59 Intake Total 857.9 331.5 Output Total 550 230 Balance 307.9 101.5 - Medications Medications: Current Medications Acetaminophen (Tylenol 325mg Tab) 650 mg PO Q6 PRN PRN Reason: Fever >100.4 F Last Admin: 03/29/18 18:48 Dose: 650 mg Albuterol/Ipratropium (Duoneb 3 Mg/0.5 Mg (3 Ml) Ud) 3 ml INH RQ4 [facility] Last Admin: 03/30/18 11:21 Dose: 3 ml Amiodarone HCl (Cordarone) 200 mg PO DAILY [facility] Last Admin: 03/30/18 09:11 Dose: 200 mg Apixaban (Eliquis) 5 mg PO BID [facility] Last Admin: 03/24/18 18:27 Dose: 5 mg Furosemide (Lasix) 20 mg IVP DAILY [facility] Last Admin: 03/30/18 09:06 Dose: 20 mg Heparin Sodium (Porcine) (Heparin) 5,000 units SC Q12 [facility] Last Admin: 03/26/18 22:16 Dose: 5,000 units Dexmedetomidine HCl 200 mcg/ (Sodium Chloride) 50 mls @ 5.01 mls/hr IV TITR PRN; Protocol PRN Reason: Intubation Last Admin: 03/30/18 01:15 Dose: 0.25 mcg/kg/hr, 6.27 mls/hr Norepinephrine Bitartrate 4 mg (/ Sodium Chloride) 254 mls @ 15.24 mls/hr IV .[id number] PRN; Protocol PRN Reason: TITRATE PER MD ORDER Last Titration: 03/28/18 17:48 Dose: Infused Fluconazole (Diflucan Iv 100 Mg/50 Ml Ns) 50 mls @ 100 mls/hr IVPB DAILY [facility]; Protocol Last Admin: 03/30/18 09:15 Dose: 100 mls/hr Azithromycin (Zithromax 500mg In Ns Addvantage) 500 mg in 250 mls @ 167 mls/hr IVPB Q24H [facility]; Protocol Last Admin: 03/29/18 15:12 Dose: 167 mls/hr Piperacillin Sod/Tazobactam (Sod 3.375 gm/ Sodium Chloride) 100 mls @ 200 mls/hr IVPB Q8H [facility]; Protocol Last Admin: 03/30/18 06:00 Dose: 200 mls/hr Lorazepam (Ativan) 2 mg IVP Q4H PRN PRN Reason: Anxiety Last Admin: 03/29/18 08:16 Dose: 2 mg Nystatin (Nystop Topical Powder) 1 applic TOP BID [facility] Last Admin: 03/30/18 09:12 Dose: 1 applic Pantoprazole Sodium (Protonix Susp) 40 mg PO DAILY [facility] Last Admin: 03/30/18 09:06 Dose: 40 mg Silver Sulfadiazine (Silvadene 1% 20 Gm) 0 ea TOP BID [facility] Last Admin: 03/30/18 09:11 Dose: 1 applic - Labs Labs: 03/30/18 06:17 03/30/18 06:17 PT 17.1 SECONDS (9.7-12.2) H 03/30/18 06:17 INR 1.6 03/30/18 06:17 APTT 38 SECONDS (21-34) H 03/30/18 06:17 - Constitutional Appears: Non-toxic, In Acute Distress - Head Exam Head Exam: NORMOCEPHALIC - Eye Exam Eye Exam: Normal appearance Pupil Exam: NORMAL ACCOMODATION - ENT Exam ENT Exam: Normal Exam - Neck Exam Neck Exam: Full ROM - Respiratory Exam Respiratory Exam: Decreased Breath Sounds - Cardiovascular Exam Cardiovascular Exam: +S1, +S2, +S4 - GI/Abdominal Exam GI & Abdominal Exam: Normal Bowel Sounds - Rectal Exam Rectal Exam: NORMAL INSPECTION - Extremities Exam Additional comments: celulitis less - Neurological Exam Additional comments: in bed - Psychiatric Exam Psychiatric exam: Anxious Additional comments: somtimes - Skin Skin Exam: Pallor Assessment and Plan - Assessment and Plan (Free Text) Assessment: chf pleural efusion resp failiur on vent aneamia celulitis lower ext Plan: cont as per orders
--- NOTE | 2018-03-30 13:37 | CP.CCUPN ---
<Omaira Calvillo - Last Filed: 03/30/18 13:42> CCU Subjective - Physician Review Subjective (Free Text): 03/30/18 13:21 ICU Progress Note for Dr. Amador Patient seen and examined at bedside this morning. Due to patient condition ROS unable to be obtained. Per daughter at bedside, patient was agitated because she wanted something cold to eat like ice cream. However, she kept on saying that she cannot have it. CCU Objective - Vital Signs / Intake & Output Vital Signs (Last 4 hours): Vital Signs Temp Pulse Resp BP Pulse Ox 03/30/18 12:00 98.3 F 92 H 22 117/80 03/30/18 11:01 88 16 122/96 H 03/30/18 10:39 84 17 112/84 100 Intake and Output (Last 8hrs): Intake & Output 03/29/18 03/30/18 03/30/18 22:59 06:59 14:59 Intake Total 708.5 509.4 439.5 Output Total 393 340 290 Balance 315.5 169.4 149.5 Weight 221 lb 6 oz Intake: IV 41 39 58 Intake, IV Amount 317.5 150.4 141.5 Left Distal Port Internal 17.5 50.4 41.5 Jugular Left Medial Port Internal 300 100 100 Jugular Oral 30 Tube Feeding 320 320 240 Output: Urine 393 340 290 Urethral ([place]) 393 340 290 Other: # Bowel Movements 0 1 - Physical Exam Head: Positive for: Atraumatic, Normocephalic, Other (central line in left IJ) Pupils: Positive for: PERRL Extroacular Muscles: Positive for: EOMI Conjunctiva: Positive for: Normal Mouth: Positive for: Dry Neck: Positive for: Normal Range of Motion. Negative for: JVD, Lymphadenopathy Respiratory/Chest: Positive for: Good Air Exchange. Negative for: Respiratory Distress, Accessory Muscle Use, Wheezes, Tachypneic Cardiovascular: Positive for: Regular Rate and Rhythm, Normal S1, S2. Negative for: Murmurs, Irregular Rhythm Abdomen: Positive for: Normal Bowel Sounds. Negative for: Tenderness, Distention, Peritoneal Signs Upper Extremity: Positive for: Normal Inspection. Negative for: Cyanosis, Edema Lower Extremity: Positive for: Normal Inspection. Negative for: Edema Skin: Positive for: Dry, Normal Color. Negative for: Diaphoretic Psychiatric: Positive for: Alert - Medications Active Medications: Active Medications Generic Name Dose Route Start Last Admin Trade Name Freq PRN Reason Stop Dose Admin Acetaminophen 650 mg 03/23/18 15:59 03/29/18 18:48 Tylenol 325mg Tab PO 650 mg Q6 PRN Administration Fever >100.4 F Albuterol/Ipratropium 3 ml 03/23/18 20:00 03/30/18 11:21 Duoneb 3 Mg/0.5 Mg (3 Ml) Ud INH 3 ml RQ4 CAMILLA Administration Amiodarone HCl 200 mg 03/23/18 16:45 03/30/18 09:11 Cordarone PO 200 mg DAILY CAMILLA Administration Apixaban 5 mg 03/23/18 18:00 03/24/18 18:27 Eliquis PO 5 mg BID CAMILLA Administration Furosemide 20 mg 03/28/18 10:00 03/30/18 09:06 Lasix IVP 20 mg DAILY CAMILLA Administration Heparin Sodium (Porcine) 5,000 units 03/26/18 10:00 03/26/18 22:16 Heparin SC 5,000 units Q12 CAMILLA Administration Dexmedetomidine HCl 200 mcg/ 50 mls @ 5.01 mls/hr 03/23/18 17:51 03/30/18 12:23 Sodium Chloride IV 0.4 mcg/kg/hr TITR PRN 10.02 mls/hr Intubation Titration Protocol 0.2 MCG/KG/HR Norepinephrine Bitartrate 4 mg 254 mls @ 15.24 mls/hr 03/24/18 10:20 03/28/18 17:48 / Sodium Chloride IV Infused .[id number] PRN Titration TITRATE PER MD ORDER Protocol 4 MCG/MIN Fluconazole 50 mls @ 100 mls/hr 03/27/18 10:00 03/30/18 09:15 Diflucan Iv 100 Mg/50 Ml Ns IVPB 100 mls/hr DAILY CAMILLA Administration Protocol Azithromycin 500 mg in 250 mls @ 167 mls/hr 03/28/18 14:15 03/29/18 15:12 Zithromax 500mg In Ns Addvantage IVPB 167 mls/hr Q24H CAMILLA Administration Protocol Piperacillin Sod/Tazobactam 100 mls @ 200 mls/hr 03/28/18 14:15 03/30/18 06:00 Sod 3.375 gm/ Sodium Chloride IVPB 200 mls/hr Q8H CAMILLA Administration Protocol Lorazepam 2 mg 03/27/18 10:19 03/29/18 08:16 Ativan IVP 2 mg Q4H PRN Administration Anxiety Nystatin 1 applic 03/23/18 18:00 03/30/18 09:12 Nystop Topical Powder TOP 1 applic BID CAMILLA Administration Pantoprazole Sodium 40 mg 03/27/18 10:00 03/30/18 09:06 Protonix Susp PO 40 mg DAILY CAMILLA Administration Silver Sulfadiazine 0 ea 03/26/18 10:00 03/30/18 09:11 Silvadene 1% 20 Gm TOP 1 applic BID CAMILLA Administration - Patient Studies Lab Studies: Microbiology Studies 03/27/18 03:41 Blood Culture - Preliminary Blood-Venous NO GROWTH AFTER 3 DAYS 03/27/18 03:41 Blood Culture - Preliminary Blood-Venous NO GROWTH AFTER 3 DAYS 03/27/18 03:41 Urine Culture - Final Urine,Catheterized Yeast Species Lab Studies 03/30/18 03/30/18 03/30/18 Range/Units 06:17 06:17 06:17 WBC 5.9 (4.8-10.8) K/uL RBC 3.55 L (3.80-5.20) Mil/uL Hgb 9.1 L (11.0-16.0) g/dL Hct 29.9 L (34.0-47.0) % MCV 84.1 (81.0-99.0) fL MCH 25.5 L (27.0-31.0) pg MCHC 30.3 L (33.0-37.0) g/dL RDW 25.7 H (11.5-14.5) % Plt Count 126 L (130-400) K/uL MPV 10.0 (7.2-11.7) fL Neut % (Auto) 82.5 H (50.0-75.0) % Lymph % (Auto) 10.0 L (20.0-40.0) % [place] % (Auto) 4.4 (0.0-10.0) % Eos % (Auto) 2.3 (0.0-4.0) % Baso % (Auto) 0.8 (0.0-2.0) % Neut # (Auto) 4.9 (1.8-7.0) K/uL Lymph # (Auto) 0.6 L (1.0-4.3) K/uL [place] # (Auto) 0.3 (0.0-0.8) K/uL Eos # (Auto) 0.1 (0.0-0.7) K/uL Baso # (Auto) 0.0 (0.0-0.2) K/uL PT 17.1 H (9.7-12.2) SECONDS INR 1.6 APTT 38 H (21-34) SECONDS Puncture Site pCO2 (35-45) mm/Hg pO2 (80-100) mm/Hg HCO3 (21-28) mmol/L ABG pH (7.35-7.45) ABG Total CO2 (22-28) mmol/L ABG O2 Saturation (95-98) % ABG Base Excess (-2.0-3.0) mmol/L ABG Hemoglobin (11.7-17.4) g/dL ABG Carboxyhemoglobin (0.5-1.5) % POC ABG HHb (Measured) (0.0-5.0) % ABG Methemoglobin (0.0-3.0) % Pawel Test A-a O2 Difference mm/Hg Respiratory Index Hgb O2 Saturation (95.0-98.0) % Vent Mode Mechanical Rate FiO2 % Tidal Volume PEEP Sodium 146 (132-148) mmol/L Potassium 3.7 (3.6-5.2) mmol/L Chloride 106 (98-107) mmol/L Carbon Dioxide 39 H (22-30) mmol/L Anion Gap 5 L (10-20) BUN 37 H (7-17) mg/dL Creatinine 0.5 L (0.7-1.2) mg/dL Est GFR ( Amer) > 60 Est GFR (Non-Af Amer) > 60 Random Glucose 121 H (65-105) mg/dL Calcium 8.0 L (8.6-10.4) mg/dl Phosphorus 2.7 (2.5-4.5) mg/dL Magnesium 2.2 (1.6-2.3) mg/dL Total Bilirubin 1.0 (0.2-1.3) mg/dL AST 22 (14-36) U/L ALT 18 (9-52) U/L Alkaline Phosphatase 50 (38-126) U/L Total Protein 5.0 L (6.3-8.3) g/dL Albumin 2.3 L (3.5-5.0) g/dL Globulin 2.7 (2.2-3.9) gm/dL Albumin/Globulin Ratio 0.9 L (1.0-2.1) 03/30/18 Range/Units 05:28 WBC (4.8-10.8) K/uL RBC (3.80-5.20) Mil/uL Hgb (11.0-16.0) g/dL Hct (34.0-47.0) % MCV (81.0-99.0) fL MCH (27.0-31.0) pg MCHC (33.0-37.0) g/dL RDW (11.5-14.5) % Plt Count (130-400) K/uL MPV (7.2-11.7) fL Neut % (Auto) (50.0-75.0) % Lymph % (Auto) (20.0-40.0) % [place] % (Auto) (0.0-10.0) % Eos % (Auto) (0.0-4.0) % Baso % (Auto) (0.0-2.0) % Neut # (Auto) (1.8-7.0) K/uL Lymph # (Auto) (1.0-4.3) K/uL [place] # (Auto) (0.0-0.8) K/uL Eos # (Auto) (0.0-0.7) K/uL Baso # (Auto) (0.0-0.2) K/uL PT (9.7-12.2) SECONDS INR APTT (21-34) SECONDS Puncture Site R rad pCO2 52 H (35-45) mm/Hg pO2 80 (80-100) mm/Hg HCO3 34.7 H (21-28) mmol/L ABG pH 7.47 H (7.35-7.45) ABG Total CO2 39.4 H (22-28) mmol/L ABG O2 Saturation 98.1 H (95-98) % ABG Base Excess 12.6 H (-2.0-3.0) mmol/L ABG Hemoglobin 9.0 L (11.7-17.4) g/dL ABG Carboxyhemoglobin 3.0 H (0.5-1.5) % POC ABG HHb (Measured) 1.8 (0.0-5.0) % ABG Methemoglobin 0.5 (0.0-3.0) % Pawel Test Pos A-a O2 Difference 212.0 mm/Hg Respiratory Index 2.7 Hgb O2 Saturation 94.7 L (95.0-98.0) % Vent Mode Prvc Mechanical Rate 14 FiO2 50.0 % Tidal Volume 420 PEEP 5 Sodium (132-148) mmol/L Potassium (3.6-5.2) mmol/L Chloride (98-107) mmol/L Carbon Dioxide (22-30) mmol/L Anion Gap (10-20) BUN (7-17) mg/dL Creatinine (0.7-1.2) mg/dL Est GFR ( Amer) Est GFR (Non-Af Amer) Random Glucose (65-105) mg/dL Calcium (8.6-10.4) mg/dl Phosphorus (2.5-4.5) mg/dL Magnesium (1.6-2.3) mg/dL Total Bilirubin (0.2-1.3) mg/dL AST (14-36) U/L ALT (9-52) U/L Alkaline Phosphatase (38-126) U/L Total Protein (6.3-8.3) g/dL Albumin (3.5-5.0) g/dL Globulin (2.2-3.9) gm/dL Albumin/Globulin Ratio (1.0-2.1) Laboratory Results - last 24 hr 03/30/18 03/30/18 03/30/18 05:28 06:17 06:17 WBC 5.9 RBC 3.55 L Hgb 9.1 L Hct 29.9 L MCV 84.1 MCH 25.5 L MCHC 30.3 L RDW 25.7 H Plt Count 126 L MPV 10.0 Neut % (Auto) 82.5 H Lymph % (Auto) 10.0 L [place] % (Auto) 4.4 Eos % (Auto) 2.3 Baso % (Auto) 0.8 Neut # (Auto) 4.9 Lymph # (Auto) 0.6 L [place] # (Auto) 0.3 Eos # (Auto) 0.1 Baso # (Auto) 0.0 PT 17.1 H INR 1.6 APTT 38 H Puncture Site R rad pCO2 52 H pO2 80 HCO3 34.7 H ABG pH 7.47 H ABG Total CO2 39.4 H ABG O2 Saturation 98.1 H ABG Base Excess 12.6 H ABG Hemoglobin 9.0 L ABG Carboxyhemoglobin 3.0 H POC ABG HHb (Measured) 1.8 ABG Methemoglobin 0.5 Pawel Test Pos A-a O2 Difference 212.0 Respiratory Index 2.7 Hgb O2 Saturation 94.7 L Vent Mode Prvc Mechanical Rate 14 FiO2 50.0 Tidal Volume 420 PEEP 5 Sodium Potassium Chloride Carbon Dioxide Anion Gap BUN Creatinine Est GFR ( Amer) Est GFR (Non-Af Amer) Random Glucose Calcium Phosphorus Magnesium Total Bilirubin AST ALT Alkaline Phosphatase Total Protein Albumin Globulin Albumin/Globulin Ratio 03/30/18 06:17 WBC RBC Hgb Hct MCV MCH MCHC RDW Plt Count MPV Neut % (Auto) Lymph % (Auto) [place] % (Auto) Eos % (Auto) Baso % (Auto) Neut # (Auto) Lymph # (Auto) [place] # (Auto) Eos # (Auto) Baso # (Auto) PT INR APTT Puncture Site pCO2 pO2 HCO3 ABG pH ABG Total CO2 ABG O2 Saturation ABG Base Excess ABG Hemoglobin ABG Carboxyhemoglobin POC ABG HHb (Measured) ABG Methemoglobin Pawel Test A-a O2 Difference Respiratory Index Hgb O2 Saturation Vent Mode Mechanical Rate FiO2 Tidal Volume PEEP Sodium 146 Potassium 3.7 Chloride 106 Carbon Dioxide 39 H Anion Gap 5 L BUN 37 H Creatinine 0.5 L Est GFR ( Amer) > 60 Est GFR (Non-Af Amer) > 60 Random Glucose 121 H Calcium 8.0 L Phosphorus 2.7 Magnesium 2.2 Total Bilirubin 1.0 AST 22 ALT 18 Alkaline Phosphatase 50 Total Protein 5.0 L Albumin 2.3 L Globulin 2.7 Albumin/Globulin Ratio 0.9 L Radiology Impressions: Radiology Impressions Chest X-Ray 03/30/18 07:00 IMPRESSION: Diminishing infiltrate right hemithorax with left basilar airspace disease difficult to exclude. Bilateral pleural effusions are identified greater at the left and right with increase in volume tension a function of shifting of the patient toward the left rather than true increased volume. No pulmonary vascular congestion. Continued clinical and radiographic monitor advised. Critical Care Progress Note - Nutrition Nutrition: Nutrition Category Date Time Status NPO Diet [DIET] Diets 03/24/18 Breakfast Active Assessment/Plan - Assessment and Plan (Free Text) Assessment: 82 yo female w/ PMH of CHF, HTN, Afib on AC, and hx of pleural effusions admitted to hospital for bilateral pleural effusions with overlying PNA. Neuro: -Alert, Awake -ROS unable to be obtained due to intubation -on Precedex 0.2 mcg/kg/h and Lorazepam IV 2mg q4h prn Pulm: -Intubated, plan to gradually wean -PRVC 14/450/50/5 -daily CXRs bilateral pulmonary edema. Pleural effusions R>L. Etiology for recurrent pleural effusions CHF vs valvulopathy -Trachasp positive for yeast species on diflucan IV started 03/27 -Duonebs PRN -ABG and CXR qAM -thoracentesis for tomorrow, 03/31, due to IR not being available on today. Patient INR 1.6 today 03/30 AM; Dr. Amador approves for tomorrow. -Dr. Amador, pulm, following CV -Normotensive currently, last levophed PRN 03/24 -Afib: Amiodarone 200mg po daily -CHF: Lasix 20mg IV q12 -Echo: diastolic dysfunction; With moderate tricuspid regurgitation -Dr. Alegre, cardiology, following GI -NPO, on tube feeds -no acute issues Endo -No acute issues Heme -INR 1.6 this morning 03/30 -eliquis and DVT ppx heparin on hold for thoracentesis procedure Renal -Urine culture and trachasp positive for yeast species- Fluconazole IVPB started 03/27 -replete BMP qAM and replete electrolytes as needed Derm -Chronic bilateral foot ulcers -Sacral ulcer unstageable, continue w/ wound care recs -Continue with nystatin topical powder for skin yeast -podiatry following, Dr. Shah ID -Currently Afebrile with no elevated WBC; -Consolidations on chest CT concerning for PNA -continue with Azithromycin started 03/28 -continue with Zosyn started 03/27 -continue with Fluconazole started 03/27 -Tylenol 650mg po q6 prn for fever > 100.4F -Dr. Archibald, ID, following GI ppx: Protonix 40mg IV daily DVT ppx: Eliquis 5mg po bid camlila and heparin 5000 units sc q12h are both held Diet: Jevity tube feeds case discussed with Dr. Aamdor, ICU attending Omaira Calvillo PGY1 <Zaheer Amador - Last Filed: 03/30/18 16:44> CCU Subjective - Physician Review Critical Care Time Spent (in minutes): 45 CCU Objective - Vital Signs / Intake & Output Vital Signs (Last 4 hours): Vital Signs Pulse Resp BP Pulse Ox 03/30/18 16:03 79 30 H 80/52 L 97 03/30/18 16:00 85 22 03/30/18 15:00 81 14 108/73 100 03/30/18 14:00 76 16 106/73 100 03/30/18 13:00 87 26 H 106/74 91 L Intake and Output (Last 8hrs): Intake & Output 03/30/18 03/30/18 03/30/18 06:59 14:59 22:59 Intake Total 509.4 825.5 133 Output Total 340 390 80 Balance 169.4 435.5 53 Weight 221 lb 6 oz Intake: IV 39 77 Intake, IV Amount 150.4 428.5 53 Left Distal Port Internal 50.4 61.5 20 Jugular Left Medial Port Internal 100 367 33 Jugular Tube Feeding 320 320 80 Output: Urine 340 390 80 Urethral ([place]) 340 390 80 Other: # Bowel Movements 1 - Medications Active Medications: Active Medications Generic Name Dose Route Start Last Admin Trade Name Freq PRN Reason Stop Dose Admin Acetaminophen 650 mg 03/23/18 15:59 03/29/18 18:48 Tylenol 325mg Tab PO 650 mg Q6 PRN Administration Fever >100.4 F Albuterol/Ipratropium 3 ml 03/23/18 20:00 03/30/18 16:20 Duoneb 3 Mg/0.5 Mg (3 Ml) Ud INH 3 ml RQ4 [facility]A Administration Amiodarone HCl 200 mg 03/23/18 16:45 03/30/18 09:11 Cordarone PO 200 mg DAILY CAMILLA Administration Apixaban 5 mg 03/23/18 18:00 03/24/18 18:27 Eliquis PO 5 mg BID CAMILLA Administration Furosemide 20 mg 03/28/18 10:00 03/30/18 09:06 Lasix IVP 20 mg DAILY CAMILLA Administration Heparin Sodium (Porcine) 5,000 units 03/26/18 10:00 03/26/18 22:16 Heparin SC 5,000 units Q12 CAMILLA Administration Dexmedetomidine HCl 200 mcg/ 50 mls @ 5.01 mls/hr 03/23/18 17:51 03/30/18 14:29 Sodium Chloride IV 0.5 mcg/kg/hr TITR PRN 12.53 mls/hr Intubation Titration Protocol 0.2 MCG/KG/HR Norepinephrine Bitartrate 4 mg 254 mls @ 15.24 mls/hr 03/24/18 10:20 03/28/18 17:48 / Sodium Chloride IV Infused .[id number] PRN Titration TITRATE PER MD ORDER Protocol 4 MCG/MIN Fluconazole 50 mls @ 100 mls/hr 03/27/18 10:00 03/30/18 09:15 Diflucan Iv 100 Mg/50 Ml Ns IVPB 100 mls/hr DAILY CAMILLA Administration Protocol Azithromycin 500 mg in 250 mls @ 167 mls/hr 03/28/18 14:15 03/30/18 14:23 Zithromax 500mg In Ns Addvantage IVPB 167 mls/hr Q24H CAM[facility]A Administration Protocol Piperacillin Sod/Tazobactam 100 mls @ 200 mls/hr 03/28/18 14:15 03/30/18 13:15 Sod 3.375 gm/ Sodium Chloride IVPB 200 mls/hr Q8H CAM[facility]A Administration Protocol Lorazepam 2 mg 03/27/18 10:19 03/29/18 08:16 Ativan IVP 2 mg Q4H PRN Administration Anxiety Nystatin 1 applic 03/23/18 18:00 03/30/18 09:12 Nystop Topical Powder TOP 1 applic BID CAMILLA Administration Pantoprazole Sodium 40 mg 03/27/18 10:00 03/30/18 09:06 Protonix Susp PO 40 mg DAILY CAMILLA Administration Silver Sulfadiazine 0 ea 03/26/18 10:00 03/30/18 09:11 Silvadene 1% 20 Gm TOP 1 applic BID CAMILLA Administration - Patient Studies Lab Studies: Microbiology Studies 03/27/18 03:41 Blood Culture - Preliminary Blood-Venous NO GROWTH AFTER 3 DAYS 03/27/18 03:41 Blood Culture - Preliminary Blood-Venous NO GROWTH AFTER 3 DAYS 03/27/18 03:41 Urine Culture - Final Urine,Catheterized Yeast Species Lab Studies 03/30/18 03/30/18 03/30/18 Range/Units 06:17 06:17 06:17 WBC 5.9 (4.8-10.8) K/uL RBC 3.55 L (3.80-5.20) Mil/uL Hgb 9.1 L (11.0-16.0) g/dL Hct 29.9 L (34.0-47.0) % MCV 84.1 (81.0-99.0) fL MCH 25.5 L (27.0-31.0) pg MCHC 30.3 L (33.0-37.0) g/dL RDW 25.7 H (11.5-14.5) % Plt Count 126 L (130-400) K/uL MPV 10.0 (7.2-11.7) fL Neut % (Auto) 82.5 H (50.0-75.0) % Lymph % (Auto) 10.0 L (20.0-40.0) % [place] % (Auto) 4.4 (0.0-10.0) % Eos % (Auto) 2.3 (0.0-4.0) % Baso % (Auto) 0.8 (0.0-2.0) % Neut # (Auto) 4.9 (1.8-7.0) K/uL Lymph # (Auto) 0.6 L (1.0-4.3) K/uL [place] # (Auto) 0.3 (0.0-0.8) K/uL Eos # (Auto) 0.1 (0.0-0.7) K/uL Baso # (Auto) 0.0 (0.0-0.2) K/uL PT 17.1 H (9.7-12.2) SECONDS INR 1.6 APTT 38 H (21-34) SECONDS Puncture Site pCO2 (35-45) mm/Hg pO2 (80-100) mm/Hg HCO3 (21-28) mmol/L ABG pH (7.35-7.45) ABG Total CO2 (22-28) mmol/L ABG O2 Saturation (95-98) % ABG Base Excess (-2.0-3.0) mmol/L ABG Hemoglobin (11.7-17.4) g/dL ABG Carboxyhemoglobin (0.5-1.5) % POC ABG HHb (Measured) (0.0-5.0) % ABG Methemoglobin (0.0-3.0) % Pawel Test A-a O2 Difference mm/Hg Respiratory Index Hgb O2 Saturation (95.0-98.0) % Vent Mode Mechanical Rate FiO2 % Tidal Volume PEEP Sodium 146 (132-148) mmol/L Potassium 3.7 (3.6-5.2) mmol/L Chloride 106 (98-107) mmol/L Carbon Dioxide 39 H (22-30) mmol/L Anion Gap 5 L (10-20) BUN 37 H (7-17) mg/dL Creatinine 0.5 L (0.7-1.2) mg/dL Est GFR ( Amer) > 60 Est GFR (Non-Af Amer) > 60 Random Glucose 121 H (65-105) mg/dL Calcium 8.0 L (8.6-10.4) mg/dl Phosphorus 2.7 (2.5-4.5) mg/dL Magnesium 2.2 (1.6-2.3) mg/dL Total Bilirubin 1.0 (0.2-1.3) mg/dL AST 22 (14-36) U/L ALT 18 (9-52) U/L Alkaline Phosphatase 50 (38-126) U/L Total Protein 5.0 L (6.3-8.3) g/dL Albumin 2.3 L (3.5-5.0) g/dL Globulin 2.7 (2.2-3.9) gm/dL Albumin/Globulin Ratio 0.9 L (1.0-2.1) 03/30/18 Range/Units 05:28 WBC (4.8-10.8) K/uL RBC (3.80-5.20) Mil/uL Hgb (11.0-16.0) g/dL Hct (34.0-47.0) % MCV (81.0-99.0) fL MCH (27.0-31.0) pg MCHC (33.0-37.0) g/dL RDW (11.5-14.5) % Plt Count (130-400) K/uL MPV (7.2-11.7) fL Neut % (Auto) (50.0-75.0) % Lymph % (Auto) (20.0-40.0) % [place] % (Auto) (0.0-10.0) % Eos % (Auto) (0.0-4.0) % Baso % (Auto) (0.0-2.0) % Neut # (Auto) (1.8-7.0) K/uL Lymph # (Auto) (1.0-4.3) K/uL [place] # (Auto) (0.0-0.8) K/uL Eos # (Auto) (0.0-0.7) K/uL Baso # (Auto) (0.0-0.2) K/uL PT (9.7-12.2) SECONDS INR APTT (21-34) SECONDS Puncture Site R rad pCO2 52 H (35-45) mm/Hg pO2 80 (80-100) mm/Hg HCO3 34.7 H (21-28) mmol/L ABG pH 7.47 H (7.35-7.45) ABG Total CO2 39.4 H (22-28) mmol/L ABG O2 Saturation 98.1 H (95-98) % ABG Base Excess 12.6 H (-2.0-3.0) mmol/L ABG Hemoglobin 9.0 L (11.7-17.4) g/dL ABG Carboxyhemoglobin 3.0 H (0.5-1.5) % POC ABG HHb (Measured) 1.8 (0.0-5.0) % ABG Methemoglobin 0.5 (0.0-3.0) % Pawel Test Pos A-a O2 Difference 212.0 mm/Hg Respiratory Index 2.7 Hgb O2 Saturation 94.7 L (95.0-98.0) % Vent Mode Prvc Mechanical Rate 14 FiO2 50.0 % Tidal Volume 420 PEEP 5 Sodium (132-148) mmol/L Potassium (3.6-5.2) mmol/L Chloride (98-107) mmol/L Carbon Dioxide (22-30) mmol/L Anion Gap (10-20) BUN (7-17) mg/dL Creatinine (0.7-1.2) mg/dL Est GFR ( Amer) Est GFR (Non-Af Amer) Random Glucose (65-105) mg/dL Calcium (8.6-10.4) mg/dl Phosphorus (2.5-4.5) mg/dL Magnesium (1.6-2.3) mg/dL Total Bilirubin (0.2-1.3) mg/dL AST (14-36) U/L ALT (9-52) U/L Alkaline Phosphatase (38-126) U/L Total Protein (6.3-8.3) g/dL Albumin (3.5-5.0) g/dL Globulin (2.2-3.9) gm/dL Albumin/Globulin Ratio (1.0-2.1) Laboratory Results - last 24 hr 03/30/18 03/30/18 03/30/18 05:28 06:17 06:17 WBC 5.9 RBC 3.55 L Hgb 9.1 L Hct 29.9 L MCV 84.1 MCH 25.5 L MCHC 30.3 L RDW 25.7 H Plt Count 126 L MPV 10.0 Neut % (Auto) 82.5 H Lymph % (Auto) 10.0 L [place] % (Auto) 4.4 Eos % (Auto) 2.3 Baso % (Auto) 0.8 Neut # (Auto) 4.9 Lymph # (Auto) 0.6 L [place] # (Auto) 0.3 Eos # (Auto) 0.1 Baso # (Auto) 0.0 PT 17.1 H INR 1.6 APTT 38 H Puncture Site R rad pCO2 52 H pO2 80 HCO3 34.7 H ABG pH 7.47 H ABG Total CO2 39.4 H ABG O2 Saturation 98.1 H ABG Base Excess 12.6 H ABG Hemoglobin 9.0 L ABG Carboxyhemoglobin 3.0 H POC ABG HHb (Measured) 1.8 ABG Methemoglobin 0.5 Pawel Test Pos A-a O2 Difference 212.0 Respiratory Index 2.7 Hgb O2 Saturation 94.7 L Vent Mode Prvc Mechanical Rate 14 FiO2 50.0 Tidal Volume 420 PEEP 5 Sodium Potassium Chloride Carbon Dioxide Anion Gap BUN Creatinine Est GFR ( Amer) Est GFR (Non-Af Amer) Random Glucose Calcium Phosphorus Magnesium Total Bilirubin AST ALT Alkaline Phosphatase Total Protein Albumin Globulin Albumin/Globulin Ratio 03/30/18 06:17 WBC RBC Hgb Hct MCV MCH MCHC RDW Plt Count MPV Neut % (Auto) Lymph % (Auto) [place] % (Auto) Eos % (Auto) Baso % (Auto) Neut # (Auto) Lymph # (Auto) [place] # (Auto) Eos # (Auto) Baso # (Auto) PT INR APTT Puncture Site pCO2 pO2 HCO3 ABG pH ABG Total CO2 ABG O2 Saturation ABG Base Excess ABG Hemoglobin ABG Carboxyhemoglobin POC ABG HHb (Measured) ABG Methemoglobin Pawel Test A-a O2 Difference Respiratory Index Hgb O2 Saturation Vent Mode Mechanical Rate FiO2 Tidal Volume PEEP Sodium 146 Potassium 3.7 Chloride 106 Carbon Dioxide 39 H Anion Gap 5 L BUN 37 H Creatinine 0.5 L Est GFR ( Amer) > 60 Est GFR (Non-Af Amer) > 60 Random Glucose 121 H Calcium 8.0 L Phosphorus 2.7 Magnesium 2.2 Total Bilirubin 1.0 AST 22 ALT 18 Alkaline Phosphatase 50 Total Protein 5.0 L Albumin 2.3 L Globulin 2.7 Albumin/Globulin Ratio 0.9 L Radiology Impressions: Radiology Impressions Chest X-Ray 03/30/18 07:00 IMPRESSION: Diminishing infiltrate right hemithorax with left basilar airspace disease difficult to exclude. Bilateral pleural effusions are identified greater at the left and right with increase in volume tension a function of shifting of the patient toward the left rather than true increased volume. No pulmonary vascular congestion. Continued clinical and radiographic monitor advised. Critical Care Progress Note - Nutrition Nutrition: Nutrition Category Date Time Status NPO Diet [DIET] Diets 03/24/18 Breakfast Active Assessment/Plan (1) Acute respiratory failure Current Visit: No Status: Acute (2) Atrial fibrillation and flutter Current Visit: No Status: Acute (3) CHF (congestive heart failure) Current Visit: No Status: Acute (4) Pleural effusion Current Visit: No Status: Acute Attending/Attestation - Attestation I have personally seen and examined this patient.: Yes I have fully participated in the care of the patient.: Yes I have reviewed all pertinent clinical information: Yes Notes (Text): 03/30/18 16:43 patient seen and examined Not tolerating weaning Afebrile trach cultures positive for yeast possible thoracentesis in a.m. Continue antibiotics Continue feeding
[2018-03-30] MEDS: Azithromycin 500mg/250ML NS 500 MG/250 ML BAG IVPB SCH (14:23)
--- NOTE | 2018-03-30 14:54 | CP.PCM.PN ---
Subjective - Date & Time of Evaluation Date of Evaluation: 03/30/18 Time of Evaluation: 14:51 - Subjective Subjective: Still intubated and sedated. Objective - Vital Signs/Intake and Output Vital Signs (last 24 hours): Temp Pulse Resp BP Pulse Ox 98.3 F 76 16 106/73 100 03/30/18 12:00 03/30/18 14:00 03/30/18 14:00 03/30/18 14:00 03/30/18 14:00 Intake and Output: 03/30/18 03/30/18 06:59 18:59 Intake Total 857.9 825.2 Output Total 550 390 Balance 307.9 435.2 - Medications Medications: Current Medications Acetaminophen (Tylenol 325mg Tab) 650 mg PO Q6 PRN PRN Reason: Fever >100.4 F Last Admin: 03/29/18 18:48 Dose: 650 mg Albuterol/Ipratropium (Duoneb 3 Mg/0.5 Mg (3 Ml) Ud) 3 ml INH RQ4 KEV Last Admin: 03/30/18 11:21 Dose: 3 ml Amiodarone HCl (Cordarone) 200 mg PO DAILY KEV Last Admin: 03/30/18 09:11 Dose: 200 mg Apixaban (Eliquis) 5 mg PO BID KEV Last Admin: 03/24/18 18:27 Dose: 5 mg Furosemide (Lasix) 20 mg IVP DAILY [facility] Last Admin: 03/30/18 09:06 Dose: 20 mg Heparin Sodium (Porcine) (Heparin) 5,000 units SC Q12 KEV Last Admin: 03/26/18 22:16 Dose: 5,000 units Dexmedetomidine HCl 200 mcg/ (Sodium Chloride) 50 mls @ 5.01 mls/hr IV TITR PRN; Protocol PRN Reason: Intubation Last Titration: 03/30/18 14:29 Dose: 0.5 mcg/kg/hr, 12.53 mls/hr Norepinephrine Bitartrate 4 mg (/ Sodium Chloride) 254 mls @ 15.24 mls/hr IV .[id number] PRN; Protocol PRN Reason: TITRATE PER MD ORDER Last Titration: 03/28/18 17:48 Dose: Infused Fluconazole (Diflucan Iv 100 Mg/50 Ml Ns) 50 mls @ 100 mls/hr IVPB DAILY KEV; Protocol Last Admin: 03/30/18 09:15 Dose: 100 mls/hr Azithromycin (Zithromax 500mg In Ns Addvantage) 500 mg in 250 mls @ 167 mls/hr IVPB Q24H KEV; Protocol Last Admin: 03/30/18 14:23 Dose: 167 mls/hr Piperacillin Sod/Tazobactam (Sod 3.375 gm/ Sodium Chloride) 100 mls @ 200 mls/hr IVPB Q8H KEV; Protocol Last Admin: 03/30/18 13:15 Dose: 200 mls/hr Lorazepam (Ativan) 2 mg IVP Q4H PRN PRN Reason: Anxiety Last Admin: 03/29/18 08:16 Dose: 2 mg Nystatin (Nystop Topical Powder) 1 applic TOP BID [facility] Last Admin: 03/30/18 09:12 Dose: 1 applic Pantoprazole Sodium (Protonix Susp) 40 mg PO DAILY [facility] Last Admin: 03/30/18 09:06 Dose: 40 mg Silver Sulfadiazine (Silvadene 1% 20 Gm) 0 ea TOP BID [facility] Last Admin: 03/30/18 09:11 Dose: 1 applic - Labs Labs: 03/30/18 06:17 03/30/18 06:17 PT 17.1 SECONDS (9.7-12.2) H 03/30/18 06:17 INR 1.6 03/30/18 06:17 APTT 38 SECONDS (21-34) H 03/30/18 06:17 - Head Exam Head Exam: NORMOCEPHALIC - Neck Exam Neck Exam: Normal Inspection - Respiratory Exam Additional comments: Intubated. - Cardiovascular Exam Cardiovascular Exam: Irregular Rhythm Additional comments: Atrial fibrillation. - Extremities Exam Extremities Exam: Normal Inspection Assessment and Plan (1) Atrial fibrillation and flutter Assessment & Plan: Rate is controlled, continue Amiodarone and cardizem. Status: Acute (2) CHF (congestive heart failure) Assessment & Plan: Fluid restriction with thoracentesis in AM. Status: Acute
[2018-03-31] MEDS: Albuterol-Ipratrop 3 mg / 0.5 (3 ml) UD INH SCH ×7 (00:50→23:33)
[2018-03-31] MEDS: Dexmedetomidine Hydrochloride 200 MCG in Sodium Chloride 0.9% 48 ML IV PRN ×4 (03:06→19:15)
[2018-03-31] MEDS: Piperacillin/Tazobact 3.375 GM in Sodium Chloride 100 ML IVPB SCH ×3 (06:18→22:15)
[2018-03-31 06:20] LABS: BASO % 0.8 % (0.0-2.0); EOS # 0.1 K/uL (0.0-0.7); EOS % 1.6 % (0.0-4.0); HEMOGLOBIN 9.7 g/dL (11.0-16.0); LYMPH # 0.6 K/uL (1.0-4.3); LYMPH % 10.2 % (20.0-40.0); MEAN CELL VOLUME 83.5 fL (81.0-99.0); MEAN CORPUSCULAR HEMOGLOBIN 25.5 pg (27.0-31.0); MEAN CORPUSCULAR HGB CONC 30.5 g/dL (33.0-37.0); MEAN PLATELET VOLUME 9.8 fL (7.2-11.7); MONO # 0.4 K/uL (0.0-0.8); MONO % 6.2 % (0.0-10.0); NEUT # 4.9 K/uL (1.8-7.0); NEUT % 81.2 % (50.0-75.0); NRBC % 0.1 % (0.0-2.0); RBC 3.8 Mil/uL (3.80-5.20); RED CELL DISTRIBUTION WIDTH 25.6 % (11.5-14.5); WHITE BLOOD COUNT 6.1 K/uL (4.8-10.8)
[2018-03-31 06:31] LABS: INR 1.6; PROTHROMBIN TIME 17.6 SECONDS (9.7-12.2)
[2018-03-31 06:37] LABS: ABG ALLEN TEST POS; ARTERIAL BLOOD GAS HCO3 33.4 mmol/L (21-28); ARTERIAL BLOOD GAS O2 SAT 99.4 % (95-98); ARTERIAL BLOOD GAS PCO2 47 mm/Hg (35-45); ARTERIAL BLOOD GAS PH 7.49 (7.35-7.45); ARTERIAL BLOOD GAS PO2 94 mm/Hg (80-100); ARTERIAL BLOOD GAS TCO2 37.2 mmol/L (22-28)
[2018-03-31 06:39] LABS: ALB/GLOB RATIO 0.9 (1.0-2.1); ALBUMIN 2.5 g/dL (3.5-5.0); ALT/SGPT 22 U/L (9-52); AST/SGOT 17 U/L (14-36); BLOOD UREA NITROGEN 36 mg/dL (7-17); CALCIUM 8.3 mg/dl (8.6-10.4); GFR NON-AFRICAN AMERICAN > 60
--- NOTE | 2018-03-31 09:36 | CP.CCUPN ---
<Margi Valenzuela - Last Filed: 03/31/18 09:31> CCU Subjective - Physician Review Subjective (Free Text): PGY-1 Critical Care Progress Note for Dr. Amador's service Patient seen and examined at bedside. 12 point ROS limited as patient is intubated. Plan for thoracentesis with IR today. Critical Care Time Spent (in minutes): 35 CCU Objective - Vital Signs / Intake & Output Vital Signs (Last 4 hours): Vital Signs Pulse Resp BP 03/31/18 07:00 81 12 106/76 03/31/18 06:00 85 24 108/76 Intake and Output (Last 8hrs): Intake & Output 03/30/18 03/31/18 03/31/18 22:59 06:59 14:59 Intake Total 508.6 1295 Output Total 380 360 Balance 128.6 935 Weight 220 lb Intake: IV 78 45 Intake, IV Amount 110.6 130 Left Distal Port Internal 77.6 80 Jugular Left Medial Port Internal 33 50 Jugular Tube Feeding 320 320 Other 800 Output: Urine 380 360 Urethral ([place]) 380 360 Other: # Bowel Movements 1 - Physical Exam Head: Positive for: Atraumatic, Normocephalic, Other (central line in left IJ) Pupils: Positive for: PERRL Extroacular Muscles: Positive for: EOMI Conjunctiva: Positive for: Normal Mouth: Positive for: Dry Neck: Positive for: Normal Range of Motion. Negative for: JVD, Lymphadenopathy Respiratory/Chest: Positive for: Good Air Exchange, Decreased Breath Sounds. Negative for: Respiratory Distress, Accessory Muscle Use, Wheezes, Tachypneic Cardiovascular: Positive for: Regular Rate and Rhythm, Normal S1, S2. Negative for: Murmurs, Irregular Rhythm Abdomen: Positive for: Normal Bowel Sounds. Negative for: Tenderness, Distention, Peritoneal Signs Upper Extremity: Positive for: Normal Inspection. Negative for: Cyanosis, Edema Lower Extremity: Positive for: Normal Inspection. Negative for: Edema Skin: Positive for: Dry, Normal Color. Negative for: Diaphoretic Psychiatric: Positive for: Alert - Medications Active Medications: Active Medications Generic Name Dose Route Start Last Admin Trade Name Freq PRN Reason Stop Dose Admin Acetaminophen 650 mg 03/23/18 15:59 03/29/18 18:48 Tylenol 325mg Tab PO 650 mg Q6 PRN Administration Fever >100.4 F Albuterol/Ipratropium 3 ml 03/23/18 20:00 03/31/18 07:59 Duoneb 3 Mg/0.5 Mg (3 Ml) Ud INH 3 ml RQ4 KEV Administration Amiodarone HCl 200 mg 03/23/18 16:45 03/30/18 09:11 Cordarone PO 200 mg DAILY KEV Administration Apixaban 5 mg 03/23/18 18:00 03/24/18 18:27 Eliquis PO 5 mg BID KEV Administration Furosemide 20 mg 03/28/18 10:00 03/30/18 09:06 Lasix IVP 20 mg DAILY KEV Administration Heparin Sodium (Porcine) 5,000 units 03/26/18 10:00 03/26/18 22:16 Heparin SC 5,000 units Q12 KEV Administration Dexmedetomidine HCl 200 mcg/ 50 mls @ 5.01 mls/hr 03/23/18 17:51 03/31/18 03:06 Sodium Chloride IV 0.4 mcg/kg/hr TITR PRN 10.02 mls/hr Intubation Administration Protocol 0.2 MCG/KG/HR Norepinephrine Bitartrate 4 mg 254 mls @ 15.24 mls/hr 03/24/18 10:20 03/28/18 17:48 / Sodium Chloride IV Infused .[id number] PRN Titration TITRATE PER MD ORDER Protocol 4 MCG/MIN Fluconazole 50 mls @ 100 mls/hr 03/27/18 10:00 03/30/18 09:15 Diflucan Iv 100 Mg/50 Ml Ns IVPB 100 mls/hr DAILY KEV Administration Protocol Azithromycin 500 mg in 250 mls @ 167 mls/hr 03/28/18 14:15 03/30/18 14:23 Zithromax 500mg In Ns Addvantage IVPB 167 mls/hr Q24H KEV Administration Protocol Piperacillin Sod/Tazobactam 100 mls @ 200 mls/hr 03/28/18 14:15 03/31/18 06:18 Sod 3.375 gm/ Sodium Chloride IVPB 200 mls/hr Q8H KEV Administration Protocol Lactulose 20 gm 03/30/18 19:13 03/30/18 19:53 Enulose PO 20 gm HS PRN Administration Constipation Lorazepam 2 mg 03/27/18 10:19 12/24/18 08:16 Ativan IVP 2 mg Q4H PRN Administration Anxiety Nystatin 1 applic 03/23/18 18:00 03/30/18 17:03 Nystop Topical Powder TOP 1 applic BID KEV Administration Pantoprazole Sodium 40 mg 03/27/18 10:00 03/30/18 09:06 Protonix Susp PO 40 mg DAILY KEV Administration Silver Sulfadiazine 0 ea 03/26/18 10:00 03/30/18 17:03 Silvadene 1% 20 Gm TOP 1 applic BID KEV Administration - Patient Studies Lab Studies: Microbiology Studies 03/27/18 03:41 Blood Culture - Preliminary Blood-Venous NO GROWTH AFTER 4 DAYS 03/27/18 03:41 Blood Culture - Preliminary Blood-Venous NO GROWTH AFTER 4 DAYS Lab Studies 03/31/18 03/31/18 03/31/18 Range/Units 06:13 06:13 06:13 WBC 6.1 (4.8-10.8) K/uL RBC 3.80 (3.80-5.20) Mil/uL Hgb 9.7 L (11.0-16.0) g/dL Hct 31.7 L (34.0-47.0) % MCV 83.5 (81.0-99.0) fL MCH 25.5 L (27.0-31.0) pg MCHC 30.5 L (33.0-37.0) g/dL RDW 25.6 H (11.5-14.5) % Plt Count 154 (130-400) K/uL MPV 9.8 (7.2-11.7) fL Neut % (Auto) 81.2 H (50.0-75.0) % Lymph % (Auto) 10.2 L (20.0-40.0) % [facility] % (Auto) 6.2 (0.0-10.0) % Eos % (Auto) 1.6 (0.0-4.0) % Baso % (Auto) 0.8 (0.0-2.0) % Neut # (Auto) 4.9 (1.8-7.0) K/uL Lymph # (Auto) 0.6 L (1.0-4.3) K/uL [facility] # (Auto) 0.4 (0.0-0.8) K/uL Eos # (Auto) 0.1 (0.0-0.7) K/uL Baso # (Auto) 0.0 (0.0-0.2) K/uL PT 17.6 H (9.7-12.2) SECONDS INR 1.6 APTT 34 (21-34) SECONDS Puncture Site pCO2 (35-45) mm/Hg pO2 (80-100) mm/Hg HCO3 (21-28) mmol/L ABG pH (7.35-7.45) ABG Total CO2 (22-28) mmol/L ABG O2 Saturation (95-98) % ABG Base Excess (-2.0-3.0) mmol/L Pawel Test ABG Potassium (3.6-5.2) mmol/L A-a O2 Difference mm/Hg Respiratory Index Sodium 147 (132-148) mmol/l Chloride 107 (98-107) mmol/L Glucose (65-105) mg/dl Lactate (0.7-2.1) mmol/L Vent Mode Mechanical Rate FiO2 % Tidal Volume PEEP Potassium 4.2 (3.6-5.2) mmol/L Carbon Dioxide 38 H (22-30) mmol/L Anion Gap 6 L (10-20) BUN 36 H (7-17) mg/dL Creatinine 0.6 L (0.7-1.2) mg/dL Est GFR ( Amer) > 60 Est GFR (Non-Af Amer) > 60 Random Glucose 153 H D (65-105) mg/dL Calcium 8.3 L (8.6-10.4) mg/dl Phosphorus 2.9 (2.5-4.5) mg/dL Magnesium 2.3 (1.6-2.3) mg/dL Total Bilirubin 0.9 (0.2-1.3) mg/dL AST 17 (14-36) U/L ALT 22 (9-52) U/L Alkaline Phosphatase 57 (38-126) U/L Total Protein 5.4 L (6.3-8.3) g/dL Albumin 2.5 L (3.5-5.0) g/dL Globulin 2.9 (2.2-3.9) gm/dL Albumin/Globulin Ratio 0.9 L (1.0-2.1) Arterial Blood Potassium (3.6-5.2) mmol/L 03/31/18 Range/Units 05:26 WBC (4.8-10.8) K/uL RBC (3.80-5.20) Mil/uL Hgb (11.0-16.0) g/dL Hct (34.0-47.0) % MCV (81.0-99.0) fL MCH (27.0-31.0) pg MCHC (33.0-37.0) g/dL RDW (11.5-14.5) % Plt Count (130-400) K/uL MPV (7.2-11.7) fL Neut % (Auto) (50.0-75.0) % Lymph % (Auto) (20.0-40.0) % [facility] % (Auto) (0.0-10.0) % Eos % (Auto) (0.0-4.0) % Baso % (Auto) (0.0-2.0) % Neut # (Auto) (1.8-7.0) K/uL Lymph # (Auto) (1.0-4.3) K/uL [facility] # (Auto) (0.0-0.8) K/uL Eos # (Auto) (0.0-0.7) K/uL Baso # (Auto) (0.0-0.2) K/uL PT (9.7-12.2) SECONDS INR APTT (21-34) SECONDS Puncture Site R rad pCO2 47 H (35-45) mm/Hg pO2 94 (80-100) mm/Hg HCO3 33.4 H (21-28) mmol/L ABG pH 7.49 H (7.35-7.45) ABG Total CO2 37.2 H (22-28) mmol/L ABG O2 Saturation 99.4 H (95-98) % ABG Base Excess 10.9 H (-2.0-3.0) mmol/L Pawel Test Pos ABG Potassium 4.0 (3.6-5.2) mmol/L A-a O2 Difference 204.0 mm/Hg Respiratory Index 2.2 Sodium 151.0 H (132-148) mmol/l Chloride 116.0 H (98-107) mmol/L Glucose 154 H (65-105) mg/dl Lactate 1.8 (0.7-2.1) mmol/L Vent Mode Prvc Mechanical Rate 14 FiO2 50.0 % Tidal Volume 420 PEEP 5 Potassium (3.6-5.2) mmol/L Carbon Dioxide (22-30) mmol/L Anion Gap (10-20) BUN (7-17) mg/dL Creatinine (0.7-1.2) mg/dL Est GFR ( Amer) Est GFR (Non-Af Amer) Random Glucose (65-105) mg/dL Calcium (8.6-10.4) mg/dl Phosphorus (2.5-4.5) mg/dL Magnesium (1.6-2.3) mg/dL Total Bilirubin (0.2-1.3) mg/dL AST (14-36) U/L ALT (9-52) U/L Alkaline Phosphatase (38-126) U/L Total Protein (6.3-8.3) g/dL Albumin (3.5-5.0) g/dL Globulin (2.2-3.9) gm/dL Albumin/Globulin Ratio (1.0-2.1) Arterial Blood Potassium 4.0 (3.6-5.2) mmol/L Laboratory Results - last 24 hr 03/31/18 03/31/18 03/31/18 05:26 06:13 06:13 WBC 6.1 RBC 3.80 Hgb 9.7 L Hct 31.7 L MCV 83.5 MCH 25.5 L MCHC 30.5 L RDW 25.6 H Plt Count 154 MPV 9.8 Neut % (Auto) 81.2 H Lymph % (Auto) 10.[address] % (Auto) 6.2 Eos % (Auto) 1.6 Baso % (Auto) 0.8 Neut # (Auto) 4.9 Lymph # (Auto) 0.[address] [facility] # (Auto) 0.4 Eos # (Auto) 0.1 Baso # (Auto) 0.0 PT INR APTT Puncture Site R rad pCO2 47 H pO2 94 HCO3 33.4 H ABG pH 7.49 H ABG Total CO2 37.2 H ABG O2 Saturation 99.4 H ABG Base Excess 10.9 H Pawel Test Pos ABG Potassium 4.0 A-a O2 Difference 204.0 Respiratory Index 2.2 Sodium 151.0 H 147 Chloride 116.0 H 107 Glucose 154 H Lactate 1.8 Vent Mode Prvc Mechanical Rate 14 FiO2 50.0 Tidal Volume 420 PEEP 5 Potassium 4.2 Carbon Dioxide 38 H Anion Gap 6 L BUN 36 H Creatinine 0.6 L Est GFR ( Amer) > 60 Est GFR (Non-Af Amer) > 60 Random Glucose 153 H D Calcium 8.3 L Phosphorus 2.9 Magnesium 2.3 Total Bilirubin 0.9 AST 17 ALT 22 Alkaline Phosphatase 57 Total Protein 5.4 L Albumin 2.5 L Globulin 2.9 Albumin/Globulin Ratio 0.9 L Arterial Blood Potassium 4.0 03/31/18 06:13 WBC RBC Hgb Hct MCV MCH MCHC RDW Plt Count MPV Neut % (Auto) Lymph % (Auto) [facility] % (Auto) Eos % (Auto) Baso % (Auto) Neut # (Auto) Lymph # (Auto) [facility] # (Auto) Eos # (Auto) Baso # (Auto) PT 17.6 H INR 1.6 APTT 34 Puncture Site pCO2 pO2 HCO3 ABG pH ABG Total CO2 ABG O2 Saturation ABG Base Excess Pawel Test ABG Potassium A-a O2 Difference Respiratory Index Sodium Chloride Glucose Lactate Vent Mode Mechanical Rate FiO2 Tidal Volume PEEP Potassium Carbon Dioxide Anion Gap BUN Creatinine Est GFR ( Amer) Est GFR (Non-Af Amer) Random Glucose Calcium Phosphorus Magnesium Total Bilirubin AST ALT Alkaline Phosphatase Total Protein Albumin Globulin Albumin/Globulin Ratio Arterial Blood Potassium Review of Systems - Review of Systems Systems not reviewed;Unavailable: Intubated Critical Care Progress Note - Ventilator Checklist Head of Bed 30 Degrees: Yes Daily Sedation Vacation: Yes Daily Assessment of Readiness to Wean: Yes Daily Spontaneous Breathing Trial: Yes PUD Prophalyxis: Yes DVT Prophylaxis: Yes Oral Care with Chlorhexidine Gluconate {CHG}: Yes - Vent Settings MODE:: CPAP FIO2:: 50 PEEP:: 5 PRESSURE SUPPORT:: 15 - Extremities/Vascular Does the Patient have a Central Venous Catheter?: Yes Insertion Site: Internal Jugular Vein Does the Patient need a Central Venous Catheter?: Yes Does the Patient have a [place] Catheter?: Yes Does the Patient need a [place] Catheter?: Yes Catheter Insertion Criteria: Need for accurate measurement of output in critically ill patient - Prophylaxis GI Prophylaxis GI: PPI - Prophylaxis DVT Prophylaxis DVT: Not Indicated - Nutrition Nutrition: Nutrition Category Date Time Status NPO Diet [DIET] Diets 03/24/18 Breakfast Active Assessment/Plan - Assessment and Plan (Free Text) Assessment: Patient is a 82 yo female w/ PMH of CHF, HTN, Afib on AC admitted for bilateral pleural effusions and pneumonia. Was breathing on bipap in ED however after transfer to ICU, patient decompensated only responding to painful stimuli. GCS of 6. Patient was intubated. Patient became hypotensive so central line was placed for levophed drip. Plan for thoracentesis pending as INR was elevated. Neuro AAOx3; Responsive; Intubated on CPAP w/PS currently; Precedex drip titrate as needed Pulm Duoneb Azithromycin/Zosyn ET tube in place Plan for thoracentesis CV Lasix Amiodarone; AC held for elevated INR Levodrip held in setting of normotensive bp readings GI no active issues Protonix Heme AC held; INR 1.6 Derm Podiatry following for foot ulcer on right Wound care for unstagable sacral ulcer and buttock ulcer Continue to monitor ID Zosyn/Azithromycin + trach asp for yeast species; + urine cx for yeast species GI ppx: Protonix DVT ppx: Not indicated at this time; SCDs not indicated at this time for cellulitis appearing bilateral feet below knee Margi Valenzuela PGY-1 Case d/w Dr. Amador <Zaheer Amador S - Last Filed: 03/31/18 16:35> CCU Objective - Vital Signs / Intake & Output Vital Signs (Last 4 hours): Vital Signs Temp Pulse Resp BP Pulse Ox 03/31/18 16:10 89 16 106/79 03/31/18 16:00 84 16 100 03/31/18 15:40 89 18 129/88 100 03/31/18 15:30 93 H 18 99 03/31/18 15:28 90 15 140/103 H 100 03/31/18 15:10 93 H 15 136/108 H 100 03/31/18 15:00 99.6 F 92 H 14 100 03/31/18 14:40 90 18 111/72 03/31/18 14:30 87 17 100 03/31/18 14:24 94 H 15 107/74 100 03/31/18 14:20 103 H 20 71/37 L 100 03/31/18 14:11 88 16 71/37 L 82 L 12/26/18 14:00 91 H 17 100 03/31/18 13:39 105 H 18 90/61 L 03/31/18 13:35 108 H 17 91/46 L 99 03/31/18 13:30 103 H 18 100 03/31/18 13:23 89 L 03/31/18 13:17 105 H 89/57 L 93 L 03/31/18 13:16 119 H 25 H 82/51 L 100 03/31/18 13:00 132 H 33 H 83 L Intake and Output (Last 8hrs): Intake & Output 03/31/18 03/31/18 03/31/18 06:59 14:59 22:59 Intake Total 1295 100 14 Output Total 360 Balance 935 100 14 Weight 220 lb Intake: IV 45 100 14 Intake, IV Amount 130 Left Distal Port Internal 80 Jugular Left Medial Port Internal 50 Jugular Tube Feeding 320 Other 800 Output: Urine 360 Urethral (D[place]) 360 Other: # Bowel Movements 1 - Medications Active Medications: Active Medications Generic Name Dose Route Start Last Admin Trade Name Freq PRN Reason Stop Dose Admin Acetaminophen 650 mg 03/23/18 15:59 03/31/18 12:05 Tylenol 325mg Tab PO 650 mg Q6 PRN Administration Fever >100.4 F Albuterol/Ipratropium 3 ml 03/23/18 20:00 03/31/18 16:15 Duoneb 3 Mg/0.5 Mg (3 Ml) Ud INH 3 ml RQ4 KEV Administration Amiodarone HCl 200 mg 03/23/18 16:45 03/31/18 10:20 Cordarone PO 200 mg DAILY KEV Administration Apixaban 5 mg 03/23/18 18:00 03/24/18 18:27 Eliquis PO 5 mg BID KEV Administration Furosemide 20 mg 03/28/18 10:00 03/31/18 10:18 Lasix IVP 20 mg DAILY KEV Administration Heparin Sodium (Porcine) 5,000 units 03/26/18 10:00 03/26/18 22:16 Heparin SC 5,000 units Q12 KEV Administration Dexmedetomidine HCl 200 mcg/ 50 mls @ 5.01 mls/hr 03/23/18 17:51 03/31/18 14:00 Sodium Chloride IV 0.4 mcg/kg/hr TITR PRN 10.02 mls/hr Intubation Administration Protocol 0.2 MCG/KG/HR Norepinephrine Bitartrate 4 mg 254 mls @ 15.24 mls/hr 03/24/18 10:20 03/28/18 17:48 / Sodium Chloride IV Infused .[id number] PRN Titration TITRATE PER MD ORDER Protocol 4 MCG/MIN Fluconazole 50 mls @ 100 mls/hr 03/27/18 10:00 03/31/18 10:19 Diflucan Iv 100 Mg/50 Ml Ns IVPB 100 mls/hr DAILY KEV Administration Protocol Azithromycin 500 mg in 250 mls @ 167 mls/hr 03/28/18 14:15 03/31/18 14:00 Zithromax 500mg In Ns Addvantage IVPB 167 mls/hr Q24H KEV Administration Protocol Piperacillin Sod/Tazobactam 100 mls @ 200 mls/hr 03/28/18 14:15 03/31/18 15:20 Sod 3.375 gm/ Sodium Chloride IVPB 200 mls/hr Q8H KVE Administration Protocol Norepinephrine Bitartrate 4 mg 254 mls @ 15.24 mls/hr 03/31/18 13:36 03/31/18 15:30 / Sodium Chloride IV 3 mcg/min .[id number] PRN 11.43 mls/hr TITRATE PER MD ORDER Titration Protocol 4 MCG/MIN Lactulose 20 gm 03/30/18 19:13 03/30/18 19:53 Enulose PO 20 gm HS PRN Administration Constipation Lorazepam 2 mg 03/27/18 10:19 03/31/18 13:06 Ativan IVP 2 mg Q4H PRN Administration Anxiety Nystatin 1 applic 03/23/18 18:00 03/31/18 10:43 Nystop Topical Powder TOP 1 applic BID KEV Administration Pantoprazole Sodium 40 mg 03/27/18 10:00 03/31/18 10:20 Protonix Susp PO 40 mg DAILY KEV Administration Silver Sulfadiazine 0 ea 03/26/18 10:00 03/30/18 17:03 Silvadene 1% 20 Gm TOP 1 applic BID KEV Administration - Patient Studies Lab Studies: Microbiology Studies 03/27/18 03:41 Blood Culture - Preliminary Blood-Venous NO GROWTH AFTER 4 DAYS 03/27/18 03:41 Blood Culture - Preliminary Blood-Venous NO GROWTH AFTER 4 DAYS Lab Studies 03/31/18 03/31/18 03/31/18 Range/Units 06:13 06:13 06:13 WBC 6.1 (4.8-10.8) K/uL RBC 3.80 (3.80-5.20) Mil/uL Hgb 9.7 L (11.0-16.0) g/dL Hct 31.7 L (34.0-47.0) % MCV 83.5 (81.0-99.0) fL MCH 25.5 L (27.0-31.0) pg MCHC 30.5 L (33.0-37.0) g/dL RDW 25.6 H (11.5-14.5) % Plt Count 154 (130-400) K/uL MPV 9.8 (7.2-11.7) fL Neut % (Auto) 81.2 H (50.0-75.0) % Lymph % (Auto) 10.2 L (20.0-40.0) % [facility] % (Auto) 6.2 (0.0-10.0) % Eos % (Auto) 1.6 (0.0-4.0) % Baso % (Auto) 0.8 (0.0-2.0) % Neut # (Auto) 4.9 (1.8-7.0) K/uL Lymph # (Auto) 0.6 L (1.0-4.3) K/uL [facility] # (Auto) 0.4 (0.0-0.8) K/uL Eos # (Auto) 0.1 (0.0-0.7) K/uL Baso # (Auto) 0.0 (0.0-0.2) K/uL PT 17.6 H (9.7-12.2) SECONDS INR 1.6 APTT 34 (21-34) SECONDS Puncture Site pCO2 (35-45) mm/Hg pO2 (80-100) mm/Hg HCO3 (21-28) mmol/L ABG pH (7.35-7.45) ABG Total CO2 (22-28) mmol/L ABG O2 Saturation (95-98) % ABG Base Excess (-2.0-3.0) mmol/L Pawel Test ABG Potassium (3.6-5.2) mmol/L A-a O2 Difference mm/Hg Respiratory Index Sodium 147 (132-148) mmol/l Chloride 107 (98-107) mmol/L Glucose (65-105) mg/dl Lactate (0.7-2.1) mmol/L Vent Mode Mechanical Rate FiO2 % Tidal Volume PEEP Potassium 4.2 (3.6-5.2) mmol/L Carbon Dioxide 38 H (22-30) mmol/L Anion Gap 6 L (10-20) BUN 36 H (7-17) mg/dL Creatinine 0.6 L (0.7-1.2) mg/dL Est GFR ( Amer) > 60 Est GFR (Non-Af Amer) > 60 Random Glucose 153 H D (65-105) mg/dL Calcium 8.3 L (8.6-10.4) mg/dl Phosphorus 2.9 (2.5-4.5) mg/dL Magnesium 2.3 (1.6-2.3) mg/dL Total Bilirubin 0.9 (0.2-1.3) mg/dL AST 17 (14-36) U/L ALT 22 (9-52) U/L Alkaline Phosphatase 57 (38-126) U/L Total Protein 5.4 L (6.3-8.3) g/dL Albumin 2.5 L (3.5-5.0) g/dL Globulin 2.9 (2.2-3.9) gm/dL Albumin/Globulin Ratio 0.9 L (1.0-2.1) Arterial Blood Potassium (3.6-5.2) mmol/L 03/31/18 Range/Units 05:26 WBC (4.8-10.8) K/uL RBC (3.80-5.20) Mil/uL Hgb (11.0-16.0) g/dL Hct (34.0-47.0) % MCV (81.0-99.0) fL MCH (27.0-31.0) pg MCHC (33.0-37.0) g/dL RDW (11.5-14.5) % Plt Count (130-400) K/uL MPV (7.2-11.7) fL Neut % (Auto) (50.0-75.0) % Lymph % (Auto) (20.0-40.0) % [facility] % (Auto) (0.0-10.0) % Eos % (Auto) (0.0-4.0) % Baso % (Auto) (0.0-2.0) % Neut # (Auto) (1.8-7.0) K/uL Lymph # (Auto) (1.0-4.3) K/uL [facility] # (Auto) (0.0-0.8) K/uL Eos # (Auto) (0.0-0.7) K/uL Baso # (Auto) (0.0-0.2) K/uL PT (9.7-12.2) SECONDS INR APTT (21-34) SECONDS Puncture Site R rad pCO2 47 H (35-45) mm/Hg pO2 94 (80-100) mm/Hg HCO3 33.4 H (21-28) mmol/L ABG pH 7.49 H (7.35-7.45) ABG Total CO2 37.2 H (22-28) mmol/L ABG O2 Saturation 99.4 H (95-98) % ABG Base Excess 10.9 H (-2.0-3.0) mmol/L Pawel Test Pos ABG Potassium 4.0 (3.6-5.2) mmol/L A-a O2 Difference 204.0 mm/Hg Respiratory Index 2.2 Sodium 151.0 H (132-148) mmol/l Chloride 116.0 H (98-107) mmol/L Glucose 154 H (65-105) mg/dl Lactate 1.8 (0.7-2.1) mmol/L Vent Mode Prvc Mechanical Rate 14 FiO2 50.0 % Tidal Volume 420 PEEP 5 Potassium (3.6-5.2) mmol/L Carbon Dioxide (22-30) mmol/L Anion Gap (10-20) BUN (7-17) mg/dL Creatinine (0.7-1.2) mg/dL Est GFR ( Amer) Est GFR (Non-Af Amer) Random Glucose (65-105) mg/dL Calcium (8.6-10.4) mg/dl Phosphorus (2.5-4.5) mg/dL Magnesium (1.6-2.3) mg/dL Total Bilirubin (0.2-1.3) mg/dL AST (14-36) U/L ALT (9-52) U/L Alkaline Phosphatase (38-126) U/L Total Protein (6.3-8.3) g/dL Albumin (3.5-5.0) g/dL Globulin (2.2-3.9) gm/dL Albumin/Globulin Ratio (1.0-2.1) Arterial Blood Potassium 4.0 (3.6-5.2) mmol/L Laboratory Results - last 24 hr 03/31/18 03/31/18 03/31/18 05:26 06:13 06:13 WBC 6.1 RBC 3.80 Hgb 9.7 L Hct 31.7 L MCV 83.5 MCH 25.5 L MCHC 30.5 L RDW 25.6 H Plt Count 154 MPV 9.8 Neut % (Auto) 81.2 H Lymph % (Auto) 10.[address] [facility] % (Auto) 6.2 Eos % (Auto) 1.6 Baso % (Auto) 0.8 Neut # (Auto) 4.9 Lymph # (Auto) 0.[address] [facility] # (Auto) 0.4 Eos # (Auto) 0.1 Baso # (Auto) 0.0 PT INR APTT Puncture Site R rad pCO2 47 H pO2 94 HCO3 33.4 H ABG pH 7.49 H ABG Total CO2 37.2 H ABG O2 Saturation 99.4 H ABG Base Excess 10.9 H Pawel Test Pos ABG Potassium 4.0 A-a O2 Difference 204.0 Respiratory Index 2.2 Sodium 151.0 H 147 Chloride 116.0 H 107 Glucose 154 H Lactate 1.8 Vent Mode Prvc Mechanical Rate 14 FiO2 50.0 Tidal Volume 420 PEEP 5 Potassium 4.2 Carbon Dioxide 38 H Anion Gap 6 L BUN 36 H Creatinine 0.6 L Est GFR ( Amer) > 60 Est GFR (Non-Af Amer) > 60 Random Glucose 153 H D Calcium 8.3 L Phosphorus 2.9 Magnesium 2.3 Total Bilirubin 0.9 AST 17 ALT 22 Alkaline Phosphatase 57 Total Protein 5.4 L Albumin 2.5 L Globulin 2.9 Albumin/Globulin Ratio 0.9 L Arterial Blood Potassium 4.0 03/31/18 06:13 WBC RBC Hgb Hct MCV MCH MCHC RDW Plt Count MPV Neut % (Auto) Lymph % (Auto) [facility] % (Auto) Eos % (Auto) Baso % (Auto) Neut # (Auto) Lymph # (Auto) [facility] # (Auto) Eos # (Auto) Baso # (Auto) PT 17.6 H INR 1.6 APTT 34 Puncture Site pCO2 pO2 HCO3 ABG pH ABG Total CO2 ABG O2 Saturation ABG Base Excess Pawel Test ABG Potassium A-a O2 Difference Respiratory Index Sodium Chloride Glucose Lactate Vent Mode Mechanical Rate FiO2 Tidal Volume PEEP Potassium Carbon Dioxide Anion Gap BUN Creatinine Est GFR ( Amer) Est GFR (Non-Af Amer) Random Glucose Calcium Phosphorus Magnesium Total Bilirubin AST ALT Alkaline Phosphatase Total Protein Albumin Globulin Albumin/Globulin Ratio Arterial Blood Potassium Radiology Impressions: Radiology Impressions Chest X-Ray 03/31/18 04:00 IMPRESSION: Suspect pulmonary edema. No significant interval change. Lines and tubes unchanged. Chest X-Ray 03/31/18 14:40 IMPRESSION: Resolved bilateral lower lobe opacities. Possible small left pleural effusion. Lines and tubes unchanged. Critical Care Progress Note - Nutrition Nutrition: Nutrition Category Date Time Status NPO Diet [DIET] Diets 03/24/18 Breakfast Active Assessment/Plan (1) Acute respiratory failure Current Visit: No Status: Acute (2) Atrial fibrillation and flutter Current Visit: No Status: Acute (3) CHF (congestive heart failure) Current Visit: No Status: Acute (4) Pleural effusion Current Visit: Yes Status: Acute Attending/Attestation - Attestation I have personally seen and examined this patient.: Yes I have fully participated in the care of the patient.: Yes I have reviewed all pertinent clinical information: Yes Notes (Text): 03/31/18 16:33 patient seen and examined Not tolerating weaning Intubated on ventilatory support On Precedex drip Continue antibiotics Status post thoracentesis and 1100 mL of straw-colored fluid removed Fluid analysis Cultures Still spiking fever
[2018-03-31] MEDS: Silver Sulfadiazine 1% Cream (20 gm) TOP SCH ×2 (10:00→18:00)
--- NOTE | 2018-03-31 10:15 | CP.PCM.PN ---
Subjective - Date & Time of Evaluation Date of Evaluation: 03/31/18 Time of Evaluation: 10:15 - Subjective Subjective: Podiatry Progress Note- Dr. Shah 82 y/o female seen and evaluated at bedside with attending Dr. Shah for RLE wounds. HPI & ROS limited as patient intubated and sedated. Pt's daughter is at bedside at time of visit. Per daughter, no acute events overnight and no F/C/N/V/CP/SOB Objective - Vital Signs/Intake and Output Vital Signs (last 24 hours): Temp Pulse Resp BP Pulse Ox 98.1 F 81 12 106/76 100 03/31/18 04:00 03/31/18 07:00 03/31/18 07:00 03/31/18 07:00 03/31/18 05:00 Intake and Output: 03/31/18 03/31/18 06:59 18:59 Intake Total 1535.6 Output Total 545 Balance 990.6 - Medications Medications: Current Medications Acetaminophen (Tylenol 325mg Tab) 650 mg PO Q6 PRN PRN Reason: Fever >100.4 F Last Admin: 03/29/18 18:48 Dose: 650 mg Albuterol/Ipratropium (Duoneb 3 Mg/0.5 Mg (3 Ml) Ud) 3 ml INH RQ4 [facility] Last Admin: 03/31/18 07:59 Dose: 3 ml Amiodarone HCl (Cordarone) 200 mg PO DAILY [facility] Last Admin: 03/30/18 09:11 Dose: 200 mg Apixaban (Eliquis) 5 mg PO BID [facility] Last Admin: 03/24/18 18:27 Dose: 5 mg Furosemide (Lasix) 20 mg IVP DAILY [facility] Last Admin: 03/30/18 09:06 Dose: 20 mg Heparin Sodium (Porcine) (Heparin) 5,000 units SC Q12 [facility] Last Admin: 03/26/18 22:16 Dose: 5,000 units Dexmedetomidine HCl 200 mcg/ (Sodium Chloride) 50 mls @ 5.01 mls/hr IV TITR PRN; Protocol PRN Reason: Intubation Last Admin: 03/31/18 03:06 Dose: 0.4 mcg/kg/hr, 10.02 mls/hr Norepinephrine Bitartrate 4 mg (/ Sodium Chloride) 254 mls @ 15.24 mls/hr IV .[id number] PRN; Protocol PRN Reason: TITRATE PER MD ORDER Last Titration: 03/28/18 17:48 Dose: Infused Fluconazole (Diflucan Iv 100 Mg/50 Ml Ns) 50 mls @ 100 mls/hr IVPB DAILY [facility]; P rotocol Last Admin: 03/30/18 09:15 Dose: 100 mls/hr Azithromycin (Zithromax 500mg In Ns Addvantage) 500 mg in 250 mls @ 167 mls/hr IVPB Q24H [facility]; Protocol Last Admin: 03/30/18 14:23 Dose: 167 mls/hr Piperacillin Sod/Tazobactam (Sod 3.375 gm/ Sodium Chloride) 100 mls @ 200 mls/hr IVPB Q8H [facility]; Protocol Last Admin: 03/31/18 06:18 Dose: 200 mls/hr Lactulose (Enulose) 20 gm PO HS PRN PRN Reason: Constipation Last Admin: 03/30/18 19:53 Dose: 20 gm Lorazepam (Ativan) 2 mg IVP Q4H PRN PRN Reason: Anxiety Last Admin: 03/29/18 08:16 Dose: 2 mg Nystatin (Nystop Topical Powder) 1 applic TOP BID [facility] Last Admin: 03/30/18 17:03 Dose: 1 applic Pantoprazole Sodium (Protonix Susp) 40 mg PO DAILY [facility] Last Admin: 03/30/18 09:06 Dose: 40 mg Silver Sulfadiazine (Silvadene 1% 20 Gm) 0 ea TOP BID [facility] Last Admin: 03/30/18 17:03 Dose: 1 applic - Labs Labs: 03/31/18 06:13 03/31/18 06:13 PT 17.6 SECONDS (9.7-12.2) H 03/31/18 06:13 INR 1.6 03/31/18 06:13 APTT 34 SECONDS (21-34) 03/31/18 06:13 - Constitutional Appears: Well, Non-toxic, No Acute Distress - Extremities Exam Additional comments: Lower extremity focused exam: VASC: Pulses are palpable B/L. Temp gradient cool to cool from proximal to distal. CFT <3 secs x 10. No pedal edema present. DERM: dry, flaky, hyperkeratotic skin noted to bilateral LE distal to the knee joint. No open lesions present. Unstageable decubitus pressure ulceration noted to right plantar posterior heel. NEURO: Gross sensation intact B/L ORTHO: No tenderness to palpation noted to lower extremity B/L - Neurological Exam Neurological Exam: Alert - Psychiatric Exam Psychiatric exam: Normal Affect Assessment and Plan - Assessment and Plan (Free Text) Assessment: 82 y/o with right foot decubitus heel ulceration, stable Plan: Patient seen and evaluated with Dr. Shah No leukocytosis, afebrile Wound cleansed, dressed with xeroform, ABD, DSD Right heel wound stable, will continue to monitor Continue multipodus boots at all times in bed Podiatry will continue to follow
[2018-03-31] MEDS: Fluconazole IV 100mg/50 ml NS 50 ML IVPB SCH (10:19)
[2018-03-31] MEDS: Pantoprazole 40 mg Susp UD PO SCH (10:20)
--- NOTE | 2018-03-31 11:13 | RAD ---
Date of service: 03/31/2018 HISTORY: intubated COMPARISON: 03/30/2018 FINDINGS: LUNGS: Extensive bilateral perihilar opacity/consolidation. No significant change PLEURA: Bilateral moderate pleural effusion. No pneumothorax. CARDIOVASCULAR: ETT, NG tube and left IJ central venous catheter are unchanged. Normal heart size. Congestive change noted. There is no atherosclerotic calcification of the thoracic aorta. OSSEOUS STRUCTURES: No significant abnormalities. VISUALIZED UPPER ABDOMEN: Normal. OTHER FINDINGS: None. IMPRESSION: Suspect pulmonary edema. No significant interval change. Lines and tubes unchanged.
--- NOTE | 2018-03-31 11:21 | CP.PCM.PN ---
Subjective - Date & Time of Evaluation Date of Evaluation: 03/31/18 Time of Evaluation: 11:18 - Subjective Subjective: pt is responive still on ventilator Objective - Vital Signs/Intake and Output Vital Signs (last 24 hours): Temp Pulse Resp BP Pulse Ox 100.4 F H 84 19 117/80 97 03/31/18 08:00 03/31/18 10:18 03/31/18 10:18 03/31/18 10:18 03/31/18 10:18 Intake and Output: 03/31/18 03/31/18 06:59 18:59 Intake Total 1535.6 50 Output Total 545 Balance 990.6 50 - Medications Medications: Current Medications Acetaminophen (Tylenol 325mg Tab) 650 mg PO Q6 PRN PRN Reason: Fever >100.4 F Last Admin: 03/29/18 18:48 Dose: 650 mg Albuterol/Ipratropium (Duoneb 3 Mg/0.5 Mg (3 Ml) Ud) 3 ml INH RQ4 [facility] Last Admin: 03/31/18 11:03 Dose: 3 ml Amiodarone HCl (Cordarone) 200 mg PO DAILY [facility] Last Admin: 03/31/18 10:20 Dose: 200 mg Apixaban (Eliquis) 5 mg PO BID [facility] Last Admin: 03/24/18 18:27 Dose: 5 mg Furosemide (Lasix) 20 mg IVP DAILY [facility] Last Admin: 03/31/18 10:18 Dose: 20 mg Heparin Sodium (Porcine) (Heparin) 5,000 units SC Q12 [facility] Last Admin: 03/26/18 22:16 Dose: 5,000 units Dexmedetomidine HCl 200 mcg/ (Sodium Chloride) 50 mls @ 5.01 mls/hr IV TITR PRN; Protocol PRN Reason: Intubation Last Admin: 03/31/18 10:17 Dose: 0.4 mcg/kg/hr, 10.02 mls/hr Norepinephrine Bitartrate 4 mg (/ Sodium Chloride) 254 mls @ 15.24 mls/hr IV .[id number] PRN; Protocol PRN Reason: TITRATE PER MD ORDER Last Titration: 03/28/18 17:48 Dose: Infused Fluconazole (Diflucan Iv 100 Mg/50 Ml Ns) 50 mls @ 100 mls/hr IVPB DAILY [facility]; Protocol Last Admin: 03/31/18 10:19 Dose: 100 mls/hr Azithromycin (Zithromax 500mg In Ns Addvantage) 500 mg in 250 mls @ 167 mls/hr IVPB Q24H [facility]; Protocol Last Admin: 03/30/18 14:23 Dose: 167 mls/hr Piperacillin Sod/Tazobactam (Sod 3.375 gm/ Sodium Chloride) 100 mls @ 200 mls/hr IVPB Q8H [facility]; Protocol Last Admin: 03/31/18 06:18 Dose: 200 mls/hr Lactulose (Enulose) 20 gm PO HS PRN PRN Reason: Constipation Last Admin: 03/30/18 19:53 Dose: 20 gm Lorazepam (Ativan) 2 mg IVP Q4H PRN PRN Reason: Anxiety Last Admin: 03/29/18 08:16 Dose: 2 mg Nystatin (Nystop Topical Powder) 1 applic TOP BID [facility] Last Admin: 03/31/18 10:43 Dose: 1 applic Pantoprazole Sodium (Protonix Susp) 40 mg PO DAILY [facility] Last Admin: 03/31/18 10:20 Dose: 40 mg Silver Sulfadiazine (Silvadene 1% 20 Gm) 0 ea TOP BID [facility] Last Admin: 03/30/18 17:03 Dose: 1 applic - Labs Labs: 03/31/18 06:13 03/31/18 06:13 PT 17.6 SECONDS (9.7-12.2) H 03/31/18 06:13 INR 1.6 03/31/18 06:13 APTT 34 SECONDS (21-34) 03/31/18 06:13 - Constitutional Appears: Non-toxic - Head Exam Head Exam: ATRAUMATIC - Eye Exam Pupil Exam: NORMAL ACCOMODATION - ENT Exam ENT Exam: Mucous Membranes Moist - Neck Exam Neck Exam: Full ROM - Respiratory Exam Respiratory Exam: Decreased Breath Sounds - Cardiovascular Exam Cardiovascular Exam: +S1, +S2, +S4 - GI/Abdominal Exam GI & Abdominal Exam: Normal Bowel Sounds - Extremities Exam Extremities Exam: Pedal Edema - Back Exam Back Exam: NORMAL INSPECTION - Psychiatric Exam Psychiatric exam: Normal Affect - Skin Skin Exam: Pallor Assessment and Plan - Assessment and Plan (Free Text) Assessment: chf cardiac arrythmia pleural efusion hypernatreamia obesity celulitis lower ext Plan: possible thoracosyntesis today cont as per ccu
[2018-03-31] MEDS: Azithromycin 500mg/250ML NS 500 MG/250 ML BAG IVPB SCH (14:00)
--- NOTE | 2018-03-31 15:27 | RAD ---
Date of service: 03/31/2018 HISTORY: s/p chest tube placement COMPARISON: 03/31/2018 at 7:20 a.m. FINDINGS: LUNGS: Bilateral lower lobe extensive opacities have entirely resolved. Likely resolved pulmonary edema/fluid overload. PLEURA: Possible small left pleural effusion. There silhouetting of left hemidiaphragm and blunting of left costophrenic angle. The right costophrenic angle is clear. CARDIOVASCULAR: No aortic atherosclerotic calcification present. Normal heart size. ET tube, NG tube and left IJ central venous catheter are unchanged. No pulmonary vascular congestion. OSSEOUS STRUCTURES: No significant abnormalities. VISUALIZED UPPER ABDOMEN: Normal. OTHER FINDINGS: None. IMPRESSION: Resolved bilateral lower lobe opacities. Possible small left pleural effusion. Lines and tubes unchanged.
--- NOTE | 2018-03-31 16:18 | CP.PCM.PN ---
Subjective - Date & Time of Evaluation Date of Evaluation: 03/31/18 Time of Evaluation: 08:00 - Subjective Subjective: s/p IR thoracentesis intubated and afebrile family at the bedside Objective - Vital Signs/Intake and Output Vital Signs (last 24 hours): Temp Pulse Resp BP Pulse Ox 99.6 F 103 H 20 71/37 L 100 03/31/18 15:00 03/31/18 14:20 03/31/18 14:20 03/31/18 14:20 03/31/18 14:20 Intake and Output: 03/31/18 03/31/18 06:59 18:59 Intake Total 1535.6 114 Output Total 545 Balance 990.6 114 - Medications Medications: Current Medications Acetaminophen (Tylenol 325mg Tab) 650 mg PO Q6 PRN PRN Reason: Fever >100.4 F Last Admin: 03/31/18 12:05 Dose: 650 mg Albuterol/Ipratropium (Duoneb 3 Mg/0.5 Mg (3 Ml) Ud) 3 ml INH RQ4 [facility] Last Admin: 03/31/18 11:03 Dose: 3 ml Amiodarone HCl (Cordarone) 200 mg PO DAILY [facility] Last Admin: 03/31/18 10:20 Dose: 200 mg Apixaban (Eliquis) 5 mg PO BID [facility] Last Admin: 03/24/18 18:27 Dose: 5 mg Furosemide (Lasix) 20 mg IVP DAILY [facility] Last Admin: 03/31/18 10:18 Dose: 20 mg Heparin Sodium (Porcine) (Heparin) 5,000 units SC Q12 [facility] Last Admin: 03/26/18 22:16 Dose: 5,000 units Dexmedetomidine HCl 200 mcg/ (Sodium Chloride) 50 mls @ 5.01 mls/hr IV TITR PRN; Protocol PRN Reason: Intubation Last Admin: 03/31/18 14:00 Dose: 0.4 mcg/kg/hr, 10.02 mls/hr Norepinephrine Bitartrate 4 mg (/ Sodium Chloride) 254 mls @ 15.24 mls/hr IV .[id number] PRN; Protocol PRN Reason: TITRATE PER MD ORDER Last Titration: 03/28/18 17:48 Dose: Infused Fluconazole (Diflucan Iv 100 Mg/50 Ml Ns) 50 mls @ 100 mls/hr IVPB DAILY [facility]; Protocol Last Admin: 03/31/18 10:19 Dose: 100 mls/hr Azithromycin (Zithromax 500mg In Ns Addvantage) 500 mg in 250 mls @ 167 mls/hr IVPB Q24H [facility]; Protocol Last Admin: 03/31/18 14:00 Dose: 167 mls/hr Piperacillin Sod/Tazobactam (Sod 3.375 gm/ Sodium Chloride) 100 mls @ 200 mls/hr IVPB Q8H [facility]; Protocol Last Admin: 03/31/18 15:20 Dose: 200 mls/hr Norepinephrine Bitartrate 4 mg (/ Sodium Chloride) 254 mls @ 15.24 mls/hr IV .[id number] PRN; Protocol PRN Reason: TITRATE PER MD ORDER Last Titration: 03/31/18 15:30 Dose: 3 mcg/min, 11.43 mls/hr Lactulose (Enulose) 20 gm PO HS PRN PRN Reason: Constipation Last Admin: 03/30/18 19:53 Dose: 20 gm Lorazepam (Ativan) 2 mg IVP Q4H PRN PRN Reason: Anxiety Last Admin: 03/31/18 13:06 Dose: 2 mg Nystatin (Nystop Topical Powder) 1 applic TOP BID [facility] Last Admin: 03/31/18 10:43 Dose: 1 applic Pantoprazole Sodium (Protonix Susp) 40 mg PO DAILY [facility] Last Admin: 03/31/18 10:20 Dose: 40 mg Silver Sulfadiazine (Silvadene 1% 20 Gm) 0 ea TOP BID [facility] Last Admin: 03/30/18 17:03 Dose: 1 applic - Labs Labs: 03/31/18 06:13 03/31/18 06:13 PT 17.6 SECONDS (9.7-12.2) H 03/31/18 06:13 INR 1.6 03/31/18 06:13 APTT 34 SECONDS (21-34) 03/31/18 06:13 - Constitutional Appears: Non-toxic, Chronically Ill - Head Exam Head Exam: NORMOCEPHALIC - Eye Exam Eye Exam: absent: Scleral icterus - ENT Exam ENT Exam: Mucous Membranes Dry - Neck Exam Neck Exam: absent: Lymphadenopathy - Respiratory Exam Respiratory Exam: Decreased Breath Sounds, Prolonged Expiratory Phase, Rhonchi - Cardiovascular Exam Cardiovascular Exam: REGULAR RHYTHM - GI/Abdominal Exam GI & Abdominal Exam: Distended, Soft. absent: Tenderness - Rectal Exam Rectal Exam: Deferred - Exam Exam: NORMAL INSPECTION - Extremities Exam Extremities Exam: Pedal Edema - Back Exam Back Exam: absent: CVA tenderness (L), CVA tenderness (R) - Neurological Exam Neurological Exam: Altered - Psychiatric Exam Psychiatric exam: Depressed - Skin Skin Exam: Dry Assessment and Plan (1) Acute respiratory failure Status: Acute (2) Atrial fibrillation and flutter Status: Acute (3) CHF (congestive heart failure) Status: Acute (4) Pleural effusion Status: Acute - Assessment and Plan (Free Text) Assessment: resolved infiltrates on CXR s/p thoracentesis exac CHF/COPD with resp failure for weaning trial If pleural fluid cultures negative would consider completion of 7 days IV antibiotics cont antifungal rx for now
--- NOTE | 2018-03-31 17:22 | CP.PCM.PN ---
Subjective - Date & Time of Evaluation Date of Evaluation: 03/31/18 Time of Evaluation: 17:19 - Subjective Subjective: Still intubated and sedated. Had pleural tap today. Objective - Vital Signs/Intake and Output Vital Signs (last 24 hours): Temp Pulse Resp BP Pulse Ox 99.6 F 89 16 106/79 100 03/31/18 15:00 03/31/18 16:10 03/31/18 16:10 03/31/18 16:10 03/31/18 16:00 Intake and Output: 03/31/18 03/31/18 06:59 18:59 Intake Total 1535.6 114 Output Total 545 Balance 990.6 114 - Medications Medications: Current Medications Acetaminophen (Tylenol 325mg Tab) 650 mg PO Q6 PRN PRN Reason: Fever >100.4 F Last Admin: 03/31/18 12:05 Dose: 650 mg Albuterol/Ipratropium (Duoneb 3 Mg/0.5 Mg (3 Ml) Ud) 3 ml INH RQ4 [facility] Last Admin: 03/31/18 16:15 Dose: 3 ml Amiodarone HCl (Cordarone) 200 mg PO DAILY [facility] Last Admin: 03/31/18 10:20 Dose: 200 mg Apixaban (Eliquis) 5 mg PO BID [facility] Last Admin: 03/24/18 18:27 Dose: 5 mg Furosemide (Lasix) 20 mg IVP DAILY [facility] Last Admin: 03/31/18 10:18 Dose: 20 mg Heparin Sodium (Porcine) (Heparin) 5,000 units SC Q12 [facility] Last Admin: 03/26/18 22:16 Dose: 5,000 units Dexmedetomidine HCl 200 mcg/ (Sodium Chloride) 50 mls @ 5.01 mls/hr IV TITR PRN; Protocol PRN Reason: Intubation Last Admin: 03/31/18 14:00 Dose: 0.4 mcg/kg/hr, 10.02 mls/hr Norepinephrine Bitartrate 4 mg (/ Sodium Chloride) 254 mls @ 15.24 mls/hr IV .[id number] PRN; Protocol PRN Reason: TITRATE PER MD ORDER Last Titration: 03/28/18 17:48 Dose: Infused Fluconazole (Diflucan Iv 100 Mg/50 Ml Ns) 50 mls @ 100 mls/hr IVPB DAILY [facility]; Protocol Last Admin: 03/31/18 10:19 Dose: 100 mls/hr Azithromycin (Zithromax 500mg In Ns Addvantage) 500 mg in 250 mls @ 167 mls/hr IVPB Q24H [facility]; Protocol Last Admin: 03/31/18 14:00 Dose: 167 mls/hr Piperacillin Sod/Tazobactam (Sod 3.375 gm/ Sodium Chloride) 100 mls @ 200 mls/hr IVPB Q8H [facility]; Protocol Last Admin: 03/31/18 15:20 Dose: 200 mls/hr Norepinephrine Bitartrate 4 mg (/ Sodium Chloride) 254 mls @ 15.24 mls/hr IV .[id number] PRN; Protocol PRN Reason: TITRATE PER MD ORDER Last Titration: 03/31/18 15:30 Dose: 3 mcg/min, 11.43 mls/hr Lactulose (Enulose) 20 gm PO HS PRN PRN Reason: Constipation Last Admin: 03/30/18 19:53 Dose: 20 gm Lorazepam (Ativan) 2 mg IVP Q4H PRN PRN Reason: Anxiety Last Admin: 03/31/18 13:06 Dose: 2 mg Nystatin (Nystop Topical Powder) 1 applic TOP BID [facility] Last Admin: 03/31/18 10:43 Dose: 1 applic Pantoprazole Sodium (Protonix Susp) 40 mg PO DAILY [facility] Last Admin: 03/31/18 10:20 Dose: 40 mg Silver Sulfadiazine (Silvadene 1% 20 Gm) 0 ea TOP BID [facility] Last Admin: 03/30/18 17:03 Dose: 1 applic - Labs Labs: 03/31/18 06:13 03/31/18 06:13 PT 17.6 SECONDS (9.7-12.2) H 03/31/18 06:13 INR 1.6 03/31/18 06:13 APTT 34 SECONDS (21-34) 03/31/18 06:13 - Head Exam Head Exam: NORMOCEPHALIC - Neck Exam Neck Exam: Normal Inspection - Respiratory Exam Additional comments: Intubated - Cardiovascular Exam Cardiovascular Exam: Irregular Rhythm - Extremities Exam Extremities Exam: Normal Inspection - Back Exam Back Exam: NORMAL INSPECTION - Neurological Exam Additional comments: Intubated. Assessment and Plan (1) Atrial fibrillation and flutter Assessment & Plan: Rate control with therapeutic anticogaulation. Status: Acute (2) CHF (congestive heart failure) Assessment & Plan: Fluid restriction with diuretics. Status: Acute
[2018-03-31 18:24] LABS: BODY FLUID TYPE PLEURAL
[2018-03-31 19:11] LABS: BF GROSS APPEARANCE SL CLOUDY (CLEAR)
[2018-03-31 19:54] LABS: BODY FLUID MONO/MACROPHAGE 5 % (0-0)
--- NOTE | 2018-03-31 22:26 | PCM.OP ---
Operative Report - Operative Report Date of Surgery/Procedure: 03/31/18 Time of Surgery/Procedure: 07:45 Surgeon: Dr. Ronald Shah [place] Worker: Dr. Olivia Rodriguez Anesthesia/Sedation: Dr. Krishna IV sedation with local injection of 30cc 1:1 mixture of 1% Lidocaine plain and 0.25% Marcaine plain Pre-Operative Diagnosis: right ankle and foot non-healing wound Post-Operative Diagnosis: same Estimated Blood Loss: 25mL Complications: None
[2018-04-01] MEDS: Dexmedetomidine Hydrochloride 200 MCG in Sodium Chloride 0.9% 48 ML IV PRN ×2 (01:00→05:35)
[2018-04-01] MEDS: Albuterol-Ipratrop 3 mg / 0.5 (3 ml) UD INH SCH ×5 (03:15→19:25)
[2018-04-01 04:52] LABS: ABG ALLEN TEST POS; ARTERIAL BLOOD GAS HCO3 34.5 mmol/L (21-28); ARTERIAL BLOOD GAS HEMOGLOBIN 9.6 g/dL (11.7-17.4); ARTERIAL BLOOD GAS O2 SAT 99.6 % (95-98); ARTERIAL BLOOD GAS PCO2 46 mm/Hg (35-45); ARTERIAL BLOOD GAS PH 7.51 (7.35-7.45); ARTERIAL BLOOD GAS PO2 144 mm/Hg (80-100); ARTERIAL BLOOD GAS TCO2 38.1 mmol/L (22-28)
[2018-04-01] MEDS: Piperacillin/Tazobact 3.375 GM in Sodium Chloride 100 ML IVPB SCH ×2 (05:33→13:20)
[2018-04-01 06:13] LABS: BASO # 0.1 K/uL (0.0-0.2); EOS % 0.6 % (0.0-4.0); HEMOGLOBIN 9.7 g/dL (11.0-16.0); LYMPH # 0.7 K/uL (1.0-4.3); MEAN CELL VOLUME 83.7 fL (81.0-99.0); MEAN CORPUSCULAR HEMOGLOBIN 25.7 pg (27.0-31.0); MEAN CORPUSCULAR HGB CONC 30.7 g/dL (33.0-37.0); MEAN PLATELET VOLUME 9.5 fL (7.2-11.7); MONO # 0.6 K/uL (0.0-0.8); MONO % 9.4 % (0.0-10.0); NRBC % 0.1 % (0.0-2.0); RBC 3.77 Mil/uL (3.80-5.20); RED CELL DISTRIBUTION WIDTH 24.9 % (11.5-14.5); WHITE BLOOD COUNT 6.4 K/uL (4.8-10.8)
[2018-04-01 06:43] LABS: ALB/GLOB RATIO 0.9 (1.0-2.1); ALBUMIN 2.5 g/dL (3.5-5.0); ALT/SGPT 17 U/L (9-52); AST/SGOT 14 U/L (14-36); BLOOD UREA NITROGEN 35 mg/dL (7-17); GFR NON-AFRICAN AMERICAN > 60
--- NOTE | 2018-04-01 08:43 | RAD ---
Date of service: 04/01/2018 HISTORY: intubated; s/p thoracentesis COMPARISON: 03/31/2018 FINDINGS: LUNGS: Rounded ill-defined opacity right infrahilar. Possible pneumonia. New since prior. Rule out atypical pulmonary edema. PLEURA: Silhouetting of left hemidiaphragm and obscuring of left costophrenic angle may reflect small left pleural effusion. No right pleural effusion. There is an opacity at the right lung base overlying the right 8th rib laterally common nonspecific. This was present on prior examination as well. This may be related to lung or rib. Follow-up advised. CARDIOVASCULAR: No aortic atherosclerotic calcification present. Normal cardiac size. No congestive change. ET tube, NG tube and left IJ central venous catheter are unchanged. OSSEOUS STRUCTURES: No significant abnormalities. VISUALIZED UPPER ABDOMEN: Normal. OTHER FINDINGS: None. IMPRESSION: New right infrahilar opacity. Possible of Elavil pneumonia. Follow-up advised. Opacity at lateral right lung base, possibly related to overlying rib. Suspect small left pleural effusion. Lines and tubes unchanged.
[2018-04-01] MEDS: Fluconazole IV 100mg/50 ml NS 50 ML IVPB SCH (09:08)
[2018-04-01] MEDS: Pantoprazole 40 mg Susp UD PO SCH (09:09)
[2018-04-01] MEDS: Silver Sulfadiazine 1% Cream (20 gm) TOP SCH ×2 (09:10→17:35)
--- NOTE | 2018-04-01 12:33 | CP.CCUPN ---
<Margi Valenzuela - Last Filed: 04/01/18 12:29> CCU Subjective - Physician Review Events Since Last Encounter (Free Text): 04/01/18 12:29 Patient had fevers yesterday; figueredo cultures were ordered Subjective (Free Text): PGY-1 Critical Care Progress Note for Dr. Valadez' service Patient seen and examined at bedside. 12 point ROS limited as patient is intubated. Approximately 1100 ml of fluid were drained from thoracentesis POD 1. CCU Objective - Vital Signs / Intake & Output Vital Signs (Last 4 hours): Vital Signs Temp Pulse Resp BP Pulse Ox 04/01/18 12:01 101 F H 04/01/18 12:00 101 F H 95 H 13 99 04/01/18 11:30 97 H 20 98/71 L 100 04/01/18 11:00 87 16 100 04/01/18 10:55 92 H 13 93/67 L 97 04/01/18 10:31 92 H 19 129/112 H 100 04/01/18 10:00 101 H 20 100 04/01/18 09:12 89 20 109/72 99 04/01/18 09:00 84 17 100 Intake and Output (Last 8hrs): Intake & Output 03/31/18 04/01/18 04/01/18 22:59 06:59 14:59 Intake Total 895.9 1001.8 505 Output Total 420 395 825 Balance 475.9 606.8 -320 Weight 222 lb 0.19 oz Intake: IV 64 214 Intake, IV Amount 371.9 377.8 195 Left Distal Port Internal 70 80 30 Jugular Left Medial Port Internal 71.9 67.8 Jugular Left Proximal Port 230 230 165 Internal Jugular Tube Feeding 280 320 240 Other 180 90 70 Output: Urine 420 395 825 Urethral (Dover) 420 395 825 Other: # Bowel Movements 1 0 - Physical Exam Head: Positive for: Atraumatic, Normocephalic, Other (central line in left IJ) Pupils: Positive for: PERRL Extroacular Muscles: Positive for: EOMI Conjunctiva: Positive for: Normal Mouth: Positive for: Dry, Other (ET tube in place) Neck: Positive for: Normal Range of Motion. Negative for: JVD, Lymphadenopathy Respiratory/Chest: Positive for: Good Air Exchange, Decreased Breath Sounds. Negative for: Respiratory Distress, Accessory Muscle Use, Wheezes, Tachypneic Cardiovascular: Positive for: Regular Rate and Rhythm, Normal S1, S2. Negative for: Murmurs, Irregular Rhythm Abdomen: Positive for: Normal Bowel Sounds. Negative for: Tenderness, Distention, Peritoneal Signs Upper Extremity: Positive for: Normal Inspection. Negative for: Cyanosis, Edema Lower Extremity: Positive for: Normal Inspection. Negative for: Edema Skin: Positive for: Dry, Normal Color. Negative for: Diaphoretic Psychiatric: Positive for: Alert - Medications Active Medications: Active Medications Generic Name Dose Route Start Last Admin Trade Name Freq PRN Reason Stop Dose Admin Acetaminophen 650 mg 03/23/18 15:59 04/01/18 12:01 Tylenol 325mg Tab PO 650 mg Q6 PRN Administration Fever >100.4 F Albuterol/Ipratropium 3 ml 03/23/18 20:00 04/01/18 11:24 Duoneb 3 Mg/0.5 Mg (3 Ml) Ud INH 3 ml RQ4 KEV Administration Amiodarone HCl 200 mg 03/23/18 16:45 04/01/18 09:09 Cordarone PO 200 mg DAILY KEV Administration Apixaban 5 mg 03/23/18 18:00 03/24/18 18:27 Eliquis PO 5 mg BID KEV Administration Furosemide 20 mg 03/28/18 10:00 04/01/18 09:12 Lasix IVP 20 mg DAILY KEV Administration Heparin Sodium (Porcine) 5,000 units 03/26/18 10:00 03/26/18 22:16 Heparin SC 5,000 units Q12 KEV Administration Dexmedetomidine HCl 200 mcg/ 50 mls @ 5.01 mls/hr 03/23/18 17:51 04/01/18 05:35 Sodium Chloride IV 0.4 mcg/kg/hr TITR PRN 10.02 mls/hr Intubation Administration Protocol 0.2 MCG/KG/HR Norepinephrine Bitartrate 4 mg 254 mls @ 15.24 mls/hr 03/24/18 10:20 03/28/18 17:48 / Sodium Chloride IV Infused .[id number] PRN Titration TITRATE PER MD ORDER Protocol 4 MCG/MIN Fluconazole 50 mls @ 100 mls/hr 03/27/18 10:00 04/01/18 09:08 Diflucan Iv 100 Mg/50 Ml Ns IVPB 100 mls/hr DAILY KEV Administration Protocol Azithromycin 500 mg in 250 mls @ 167 mls/hr 03/28/18 14:15 03/31/18 14:00 Zithromax 500mg In Ns Addvantage IVPB 167 mls/hr Q24H KEV Administration Protocol Piperacillin Sod/Tazobactam 100 mls @ 200 mls/hr 03/28/18 14:15 04/01/18 05:33 Sod 3.375 gm/ Sodium Chloride IVPB 200 mls/hr Q8H KEV Administration Protocol Norepinephrine Bitartrate 4 mg 254 mls @ 15.24 mls/hr 03/31/18 13:36 04/01/18 05:00 / Sodium Chloride IV 0 mcg/min .[id number] PRN 0 mls/hr TITRATE PER MD ORDER Titration Protocol 4 MCG/MIN Lactulose 20 gm 03/30/18 19:13 03/30/18 19:53 Enulose PO 20 gm HS PRN Administration Constipation Lorazepam 2 mg 03/27/18 10:19 03/31/18 13:06 Ativan IVP 2 mg Q4H PRN Administration Anxiety Nystatin 1 applic 03/23/18 18:00 04/01/18 09:09 Nystop Topical Powder TOP 1 applic BID KEV Administration Pantoprazole Sodium 40 mg 03/27/18 10:00 04/01/18 09:09 Protonix Susp PO 40 mg DAILY KEV Administration Silver Sulfadiazine 0 ea 03/26/18 10:00 04/01/18 09:10 Silvadene 1% 20 Gm TOP 1 applic BID KEV Administration - Patient Studies Lab Studies: Microbiology Studies 03/31/18 18:24 Gram Stain - Final Pleural Fluid Body Fluid Culture - Preliminary NO GROWTH AFTER 24 HOURS 03/31/18 14:55 Urine Culture - Final Urine,Dover No Growth (<1,000 CFU/ML) 03/27/18 03:41 Blood Culture - Final Blood-Venous NO GROWTH AFTER 5 DAYS Gram Stain - Final TEST NOT PERFORMED 03/27/18 03:41 Blood Culture - Final Blood-Venous NO GROWTH AFTER 5 DAYS Gram Stain - Final TEST NOT PERFORMED 03/31/18 14:55 Gram Stain - Final Trachasp Lab Studies 04/01/18 04/01/18 04/01/18 Range/Units 06:02 06:02 04:35 WBC 6.4 (4.8-10.8) K/uL RBC 3.77 L (3.80-5.20) Mil/uL Hgb 9.7 L (11.0-16.0) g/dL Hct 31.6 L (34.0-47.0) % MCV 83.7 (81.0-99.0) fL MCH 25.7 L (27.0-31.0) pg MCHC 30.7 L (33.0-37.0) g/dL RDW 24.9 H (11.5-14.5) % Plt Count 204 (130-400) K/uL MPV 9.5 (7.2-11.7) fL Neut % (Auto) 78.0 H (50.0-75.0) % Lymph % (Auto) 11.0 L (20.0-40.0) % Ripley % (Auto) 9.4 (0.0-10.0) % Eos % (Auto) 0.6 (0.0-4.0) % Baso % (Auto) 1.0 (0.0-2.0) % Neut # (Auto) 5.0 (1.8-7.0) K/uL Lymph # (Auto) 0.7 L (1.0-4.3) K/uL Ripley # (Auto) 0.6 (0.0-0.8) K/uL Eos # (Auto) 0.0 (0.0-0.7) K/uL Baso # (Auto) 0.1 (0.0-0.2) K/uL Puncture Site Rr pCO2 46 H (35-45) mm/Hg pO2 144 H (80-100) mm/Hg HCO3 34.5 H (21-28) mmol/L ABG pH 7.51 H (7.35-7.45) ABG Total CO2 38.1 H (22-28) mmol/L ABG O2 Saturation 99.6 H (95-98) % ABG Base Excess 12.3 H (-2.0-3.0) mmol/L ABG Hemoglobin 9.6 L (11.7-17.4) g/dL ABG Carboxyhemoglobin 2.2 H (0.5-1.5) % POC ABG HHb (Measured) 0.4 (0.0-5.0) % ABG Methemoglobin 0.7 (0.0-3.0) % Pawel Test Pos A-a O2 Difference 155.0 mm/Hg Respiratory Index 1.1 Hgb O2 Saturation 96.7 (95.0-98.0) % Vent Mode Prvc Mechanical Rate 14 FiO2 50.0 % Tidal Volume 420 PEEP 5 Sodium 146 (132-148) mmol/L Potassium 3.9 (3.6-5.2) mmol/L Chloride 108 H (98-107) mmol/L Carbon Dioxide 37 H (22-30) mmol/L Anion Gap 6 L (10-20) BUN 35 H (7-17) mg/dL Creatinine 0.7 (0.7-1.2) mg/dL Est GFR ( Amer) > 60 Est GFR (Non-Af Amer) > 60 Random Glucose 173 H (65-105) mg/dL Calcium 8.0 L (8.6-10.4) mg/dl Phosphorus 2.8 (2.5-4.5) mg/dL Magnesium 2.4 H (1.6-2.3) mg/dL Total Bilirubin 0.7 (0.2-1.3) mg/dL AST 14 (14-36) U/L ALT 17 (9-52) U/L Alkaline Phosphatase 58 (38-126) U/L Total Protein 5.3 L (6.3-8.3) g/dL Albumin 2.5 L (3.5-5.0) g/dL Globulin 2.8 (2.2-3.9) gm/dL Albumin/Globulin Ratio 0.9 L (1.0-2.1) Procalcitonin (0.19-0.49) NG/ML Fluid Source Fluid Appearance (CLEAR) Fluid WBC (0.0-300.0) /mm3 Fluid RBC (0.0-0.0) /mm3 Fluid Tot Cell Count Fluid Neutrophils (0-0) % Fluid Lymphocytes (0-0) % Fld Monocyte/Macrophag (0-0) % Fluid Comment 03/31/18 03/31/18 Range/Units 18:24 18:24 WBC (4.8-10.8) K/uL RBC (3.80-5.20) Mil/uL Hgb (11.0-16.0) g/dL Hct (34.0-47.0) % MCV (81.0-99.0) fL MCH (27.0-31.0) pg MCHC (33.0-37.0) g/dL RDW (11.5-14.5) % Plt Count (130-400) K/uL MPV (7.2-11.7) fL Neut % (Auto) (50.0-75.0) % Lymph % (Auto) (20.0-40.0) % Ripley % (Auto) (0.0-10.0) % Eos % (Auto) (0.0-4.0) % Baso % (Auto) (0.0-2.0) % Neut # (Auto) (1.8-7.0) K/uL Lymph # (Auto) (1.0-4.3) K/uL Ripley # (Auto) (0.0-0.8) K/uL Eos # (Auto) (0.0-0.7) K/uL Baso # (Auto) (0.0-0.2) K/uL Puncture Site pCO2 (35-45) mm/Hg pO2 (80-100) mm/Hg HCO3 (21-28) mmol/L ABG pH (7.35-7.45) ABG Total CO2 (22-28) mmol/L ABG O2 Saturation (95-98) % ABG Base Excess (-2.0-3.0) mmol/L ABG Hemoglobin (11.7-17.4) g/dL ABG Carboxyhemoglobin (0.5-1.5) % POC ABG HHb (Measured) (0.0-5.0) % ABG Methemoglobin (0.0-3.0) % Pawel Test A-a O2 Difference mm/Hg Respiratory Index Hgb O2 Saturation (95.0-98.0) % Vent Mode Mechanical Rate FiO2 % Tidal Volume PEEP Sodium (132-148) mmol/L Potassium (3.6-5.2) mmol/L Chloride (98-107) mmol/L Carbon Dioxide (22-30) mmol/L Anion Gap (10-20) BUN (7-17) mg/dL Creatinine (0.7-1.2) mg/dL Est GFR ( Amer) Est GFR (Non-Af Amer) Random Glucose (65-105) mg/dL Calcium (8.6-10.4) mg/dl Phosphorus (2.5-4.5) mg/dL Magnesium (1.6-2.3) mg/dL Total Bilirubin (0.2-1.3) mg/dL AST (14-36) U/L ALT (9-52) U/L Alkaline Phosphatase (38-126) U/L Total Protein (6.3-8.3) g/dL Albumin (3.5-5.0) g/dL Globulin (2.2-3.9) gm/dL Albumin/Globulin Ratio (1.0-2.1) Procalcitonin 0.23 (0.19-0.49) NG/ML Fluid Source Pleural Fluid Appearance Sl cloudy (CLEAR) Fluid WBC 106.0 (0.0-300.0) /mm3 Fluid RBC 6508.0 H (0.0-0.0) /mm3 Fluid Tot Cell Count TEST NOT PERFORMED Fluid Neutrophils 35.0 H (0-0) % Fluid Lymphocytes 60.0 H (0-0) % Fld Monocyte/Macrophag 5 H (0-0) % Fluid Comment Laboratory Results - last 24 hr 03/31/18 03/31/18 04/01/18 18:24 18:24 04:35 WBC RBC Hgb Hct MCV MCH MCHC RDW Plt Count MPV Neut % (Auto) Lymph % (Auto) Ripley % (Auto) Eos % (Auto) Baso % (Auto) Neut # (Auto) Lymph # (Auto) Ripley # (Auto) Eos # (Auto) Baso # (Auto) Puncture Site Rr pCO2 46 H pO2 144 H HCO3 34.5 H ABG pH 7.51 H ABG Total CO2 38.1 H ABG O2 Saturation 99.6 H ABG Base Excess 12.3 H ABG Hemoglobin 9.6 L ABG Carboxyhemoglobin 2.2 H POC ABG HHb (Measured) 0.4 ABG Methemoglobin 0.7 Pawel Test Pos A-a O2 Difference 155.0 Respiratory Index 1.1 Hgb O2 Saturation 96.7 Vent Mode Prvc Mechanical Rate 14 FiO2 50.0 Tidal Volume 420 PEEP 5 Sodium Potassium Chloride Carbon Dioxide Anion Gap BUN Creatinine Est GFR ( Amer) Est GFR (Non-Af Amer) Random Glucose Calcium Phosphorus Magnesium Total Bilirubin AST ALT Alkaline Phosphatase Total Protein Albumin Globulin Albumin/Globulin Ratio Procalcitonin 0.23 Fluid Source Pleural Fluid Appearance Sl cloudy Fluid WBC 106.0 Fluid RBC 6508.0 H Fluid Tot Cell Count TEST NOT PERFORMED Fluid Neutrophils 35.0 H Fluid Lymphocytes 60.0 H Fld Monocyte/Macrophag 5 H Fluid Comment 04/01/18 04/01/18 06:02 06:02 WBC 6.4 RBC 3.77 L Hgb 9.7 L Hct 31.6 L MCV 83.7 MCH 25.7 L MCHC 30.7 L RDW 24.9 H Plt Count 204 MPV 9.5 Neut % (Auto) 78.0 H Lymph % (Auto) 11.0 L Ripley % (Auto) 9.4 Eos % (Auto) 0.6 Baso % (Auto) 1.0 Neut # (Auto) 5.0 Lymph # (Auto) 0.7 L Ripley # (Auto) 0.6 Eos # (Auto) 0.0 Baso # (Auto) 0.1 Puncture Site pCO2 pO2 HCO3 ABG pH ABG Total CO2 ABG O2 Saturation ABG Base Excess ABG Hemoglobin ABG Carboxyhemoglobin POC ABG HHb (Measured) ABG Methemoglobin Pawel Test A-a O2 Difference Respiratory Index Hgb O2 Saturation Vent Mode Mechanical Rate FiO2 Tidal Volume PEEP Sodium 146 Potassium 3.9 Chloride 108 H Carbon Dioxide 37 H Anion Gap 6 L BUN 35 H Creatinine 0.7 Est GFR ( Amer) > 60 Est GFR (Non-Af Amer) > 60 Random Glucose 173 H Calcium 8.0 L Phosphorus 2.8 Magnesium 2.4 H Total Bilirubin 0.7 AST 14 ALT 17 Alkaline Phosphatase 58 Total Protein 5.3 L Albumin 2.5 L Globulin 2.8 Albumin/Globulin Ratio 0.9 L Procalcitonin Fluid Source Fluid Appearance Fluid WBC Fluid RBC Fluid Tot Cell Count Fluid Neutrophils Fluid Lymphocytes Fld Monocyte/Macrophag Fluid Comment Radiology Impressions: Radiology Impressions Chest X-Ray 03/31/18 14:40 IMPRESSION: Resolved bilateral lower lobe opacities. Possible small left pleural effusion. Lines and tubes unchanged. Chest X-Ray 04/01/18 07:00 IMPRESSION: New right infrahilar opacity. Possible of Elavil pneumonia. Follow-up advised. Opacity at lateral right lung base, possibly related to overlying rib. Suspect small left pleural effusion. Lines and tubes unchanged. Review of Systems - Review of Systems Systems not reviewed;Unavailable: Intubated Critical Care Progress Note - Ventilator Checklist Head of Bed 30 Degrees: Yes Daily Sedation Vacation: Yes Daily Assessment of Readiness to Wean: Yes Daily Spontaneous Breathing Trial: Yes PUD Prophalyxis: Yes DVT Prophylaxis: Yes Oral Care with Chlorhexidine Gluconate {CHG}: Yes - Vent Settings MODE:: PRVC TIDAL VOLUME:: 420 RESP RATE:: 15 FIO2:: 50 PEEP:: 5 - Extremities/Vascular Does the Patient have a Central Venous Catheter?: Yes Insertion Site: Internal Jugular Vein Does the Patient need a Central Venous Catheter?: Yes Does the Patient have a [place] Catheter?: Yes Does the Patient need a [place] Catheter?: Yes Catheter Insertion Criteria: Need for accurate measurement of output in critically ill patient - Prophylaxis GI Prophylaxis GI: PPI - Nutrition Nutrition: Nutrition Category Date Time Status NPO Diet [DIET] Diets 03/24/18 Breakfast Active Assessment/Plan - Assessment and Plan (Free Text) Assessment: Patient is a 82 yo female w/ PMH of CHF, HTN, Afib on AC admitted for bilateral pleural effusions and pneumonia. Was breathing on bipap in ED however after transfer to ICU, patient decompensated only responding to painful stimuli. GCS of 6. Patient was intubated. Patient became hypotensive so central line was placed for levophed drip. POD 1 s/p thoracentesis with 1100 fluid removed. Home AC restarted. Precedex and levophed dc'ed. Will attempt to wean patient off. Neuro Precedex dc'ed; Ativan PRN; Re-evaluate when patient awake, Patient has been alert and oriented Pulm Duoneb Azithromycin/Zosyn ET tube in place POD 1 thoracentesis 1100ml fluid drained CV Lasix Amiodarone GI no active issues On tube feeds Jevity with prostat bid Protonix; Lactulose Heme AC held; INR 1.6 Derm Podiatry following for foot ulcer on right Wound care for unstagable sacral ulcer and buttock ulcer- recommendations are continued as per wound care Nystatin Continue to monitor ID Zosyn/Azithromycin + trach asp for yeast species; + urine cx for yeast species Pending new figueredo cx GI ppx: Protonix DVT ppx: Elquis 5mg po bid Madaser Nicolas PGY-1 Case d/w Dr. Valadez <Evan Valadez M - Last Filed: 04/01/18 18:29> CCU Objective - Vital Signs / Intake & Output Vital Signs (Last 4 hours): Vital Signs Temp Pulse Resp BP Pulse Ox 04/01/18 18:00 119 H 28 H 100 04/01/18 17:30 113 H 26 H 129/90 100 04/01/18 17:00 109 H 18 100 04/01/18 16:33 106 H 27 H 132/57 L 100 04/01/18 16:00 100.3 F H 108 H 20 100 04/01/18 15:48 106 H 21 119/88 100 04/01/18 15:00 105 H 22 100 04/01/18 14:31 104 H 31 H 116/79 99 Intake and Output (Last 8hrs): Intake & Output 04/01/18 04/01/18 04/01/18 06:59 14:59 22:59 Intake Total 1001.8 985 325 Output Total 395 985 175 Balance 606.8 0 150 Weight 222 lb 0.19 oz Intake: IV 214 Intake, IV Amount 377.8 545 65 Left Distal Port Internal 80 30 Jugular Left Medial Port Internal 67.8 Jugular Left Proximal Port 230 515 65 Internal Jugular Tube Feeding 320 320 160 Other 90 120 100 Output: Urine 395 985 175 Urethral (Dover) 395 985 175 Other: # Bowel Movements 1 0 0 - Medications Active Medications: Active Medications Generic Name Dose Route Start Last Admin Trade Name Freq PRN Reason Stop Dose Admin Acetaminophen 650 mg 03/23/18 15:59 04/01/18 12:01 Tylenol 325mg Tab PO 650 mg Q6 PRN Administration Fever >100.4 F Albuterol/Ipratropium 3 ml 03/23/18 20:00 04/01/18 15:43 Duoneb 3 Mg/0.5 Mg (3 Ml) Ud INH 3 ml RQ4 KEV Administration Amiodarone HCl 200 mg 03/23/18 16:45 04/01/18 09:09 Cordarone PO 200 mg DAILY KEV Administration Apixaban 5 mg 03/23/18 18:00 04/01/18 17:26 Eliquis PO 5 mg BID KEV Administration Bacitracin 0 gm 04/01/18 18:00 04/01/18 17:36 Bacitracin TOP 1 applic BID KEV Administration Furosemide 20 mg 03/28/18 10:00 04/01/18 09:12 Lasix IVP 20 mg DAILY KEV Administration Norepinephrine Bitartrate 4 mg 254 mls @ 15.24 mls/hr 03/24/18 10:20 03/28/18 17:48 / Sodium Chloride IV Infused .[id number] PRN Titration TITRATE PER MD ORDER Protocol 4 MCG/MIN Fluconazole 50 mls @ 100 mls/hr 03/27/18 10:00 04/01/18 09:08 Diflucan Iv 100 Mg/50 Ml Ns IVPB 100 mls/hr DAILY KEV Administration Protocol Azithromycin 500 mg in 250 mls @ 167 mls/hr 03/28/18 14:15 04/01/18 13:20 Zithromax 500mg In Ns Addvantage IVPB 167 mls/hr Q24H KEV Administration Protocol Cefepime HCl 1 gm in 50 mls @ 100 mls/hr 04/01/18 16:30 04/01/18 17:28 Maxipime Iv 1 Gm Premix IVPB 100 mls/hr Q12H KEV Administration Protocol Lactulose 20 gm 03/30/18 19:13 03/30/18 19:53 Enulose PO 20 gm HS PRN Administration Constipation Lorazepam 2 mg 03/27/18 10:19 03/31/18 13:06 Ativan IVP 2 mg Q4H PRN Administration Anxiety Nystatin 1 applic 03/23/18 18:00 04/01/18 17:35 Nystop Topical Powder TOP 1 applic BID KEV Administration Pantoprazole Sodium 40 mg 03/27/18 10:00 04/01/18 09:09 Protonix Susp PO 40 mg DAILY KEV Administration Silver Sulfadiazine 0 ea 03/26/18 10:00 04/01/18 17:35 Silvadene 1% 20 Gm TOP 1 applic BID KEV Administration - Patient Studies Lab Studies: Microbiology Studies 03/31/18 14:55 Blood Culture - Preliminary Blood-Thru Central Line NO GROWTH AFTER 24 HOURS 03/31/18 14:55 Blood Culture - Preliminary Blood-Thru Central Line NO GROWTH AFTER 24 HOURS 03/31/18 18:24 Gram Stain - Final Pleural Fluid Body Fluid Culture - Preliminary NO GROWTH AFTER 24 HOURS 03/31/18 14:55 Urine Culture - Final Urine,Dover No Growth (<1,000 CFU/ML) 03/27/18 03:41 Blood Culture - Final Blood-Venous NO GROWTH AFTER 5 DAYS Gram Stain - Final TEST NOT PERFORMED 03/27/18 03:41 Blood Culture - Final Blood-Venous NO GROWTH AFTER 5 DAYS Gram Stain - Final TEST NOT PERFORMED 03/31/18 14:55 Gram Stain - Final Trachasp Lab Studies 04/01/18 04/01/18 04/01/18 Range/Units 06:02 06:02 04:35 WBC 6.4 (4.8-10.8) K/uL RBC 3.77 L (3.80-5.20) Mil/uL Hgb 9.7 L (11.0-16.0) g/dL Hct 31.6 L (34.0-47.0) % MCV 83.7 (81.0-99.0) fL MCH 25.7 L (27.0-31.0) pg MCHC 30.7 L (33.0-37.0) g/dL RDW 24.9 H (11.5-14.5) % Plt Count 204 (130-400) K/uL MPV 9.5 (7.2-11.7) fL Neut % (Auto) 78.0 H (50.0-75.0) % Lymph % (Auto) 11.0 L (20.0-40.0) % Ripley % (Auto) 9.4 (0.0-10.0) % Eos % (Auto) 0.6 (0.0-4.0) % Baso % (Auto) 1.0 (0.0-2.0) % Neut # (Auto) 5.0 (1.8-7.0) K/uL Lymph # (Auto) 0.7 L (1.0-4.3) K/uL Ripley # (Auto) 0.6 (0.0-0.8) K/uL Eos # (Auto) 0.0 (0.0-0.7) K/uL Baso # (Auto) 0.1 (0.0-0.2) K/uL Puncture Site Rr pCO2 46 H (35-45) mm/Hg pO2 144 H (80-100) mm/Hg HCO3 34.5 H (21-28) mmol/L ABG pH 7.51 H (7.35-7.45) ABG Total CO2 38.1 H (22-28) mmol/L ABG O2 Saturation 99.6 H (95-98) % ABG Base Excess 12.3 H (-2.0-3.0) mmol/L ABG Hemoglobin 9.6 L (11.7-17.4) g/dL ABG Carboxyhemoglobin 2.2 H (0.5-1.5) % POC ABG HHb (Measured) 0.4 (0.0-5.0) % ABG Methemoglobin 0.7 (0.0-3.0) % Pawel Test Pos A-a O2 Difference 155.0 mm/Hg Respiratory Index 1.1 Hgb O2 Saturation 96.7 (95.0-98.0) % Vent Mode Prvc Mechanical Rate 14 FiO2 50.0 % Tidal Volume 420 PEEP 5 Sodium 146 (132-148) mmol/L Potassium 3.9 (3.6-5.2) mmol/L Chloride 108 H (98-107) mmol/L Carbon Dioxide 37 H (22-30) mmol/L Anion Gap 6 L (10-20) BUN 35 H (7-17) mg/dL Creatinine 0.7 (0.7-1.2) mg/dL Est GFR ( Amer) > 60 Est GFR (Non-Af Amer) > 60 Random Glucose 173 H (65-105) mg/dL Calcium 8.0 L (8.6-10.4) mg/dl Phosphorus 2.8 (2.5-4.5) mg/dL Magnesium 2.4 H (1.6-2.3) mg/dL Total Bilirubin 0.7 (0.2-1.3) mg/dL AST 14 (14-36) U/L ALT 17 (9-52) U/L Alkaline Phosphatase 58 (38-126) U/L Total Protein 5.3 L (6.3-8.3) g/dL Albumin 2.5 L (3.5-5.0) g/dL Globulin 2.8 (2.2-3.9) gm/dL Albumin/Globulin Ratio 0.9 L (1.0-2.1) Procalcitonin (0.19-0.49) NG/ML Fluid Appearance (CLEAR) Fluid WBC (0.0-300.0) /mm3 Fluid RBC (0.0-0.0) /mm3 Fluid Tot Cell Count Fluid Neutrophils (0-0) % Fluid Lymphocytes (0-0) % Fld Monocyte/Macrophag (0-0) % Fluid Comment 03/31/18 03/31/18 Range/Units 18:24 18:24 WBC (4.8-10.8) K/uL RBC (3.80-5.20) Mil/uL Hgb (11.0-16.0) g/dL Hct (34.0-47.0) % MCV (81.0-99.0) fL MCH (27.0-31.0) pg MCHC (33.0-37.0) g/dL RDW (11.5-14.5) % Plt Count (130-400) K/uL MPV (7.2-11.7) fL Neut % (Auto) (50.0-75.0) % Lymph % (Auto) (20.0-40.0) % Ripley % (Auto) (0.0-10.0) % Eos % (Auto) (0.0-4.0) % Baso % (Auto) (0.0-2.0) % Neut # (Auto) (1.8-7.0) K/uL Lymph # (Auto) (1.0-4.3) K/uL Ripley # (Auto) (0.0-0.8) K/uL Eos # (Auto) (0.0-0.7) K/uL Baso # (Auto) (0.0-0.2) K/uL Puncture Site pCO2 (35-45) mm/Hg pO2 (80-100) mm/Hg HCO3 (21-28) mmol/L ABG pH (7.35-7.45) ABG Total CO2 (22-28) mmol/L ABG O2 Saturation (95-98) % ABG Base Excess (-2.0-3.0) mmol/L ABG Hemoglobin (11.7-17.4) g/dL ABG Carboxyhemoglobin (0.5-1.5) % POC ABG HHb (Measured) (0.0-5.0) % ABG Methemoglobin (0.0-3.0) % Pawel Test A-a O2 Difference mm/Hg Respiratory Index Hgb O2 Saturation (95.0-98.0) % Vent Mode Mechanical Rate FiO2 % Tidal Volume PEEP Sodium (132-148) mmol/L Potassium (3.6-5.2) mmol/L Chloride (98-107) mmol/L Carbon Dioxide (22-30) mmol/L Anion Gap (10-20) BUN (7-17) mg/dL Creatinine (0.7-1.2) mg/dL Est GFR ( Amer) Est GFR (Non-Af Amer) Random Glucose (65-105) mg/dL Calcium (8.6-10.4) mg/dl Phosphorus (2.5-4.5) mg/dL Magnesium (1.6-2.3) mg/dL Total Bilirubin (0.2-1.3) mg/dL AST (14-36) U/L ALT (9-52) U/L Alkaline Phosphatase (38-126) U/L Total Protein (6.3-8.3) g/dL Albumin (3.5-5.0) g/dL Globulin (2.2-3.9) gm/dL Albumin/Globulin Ratio (1.0-2.1) Procalcitonin 0.23 (0.19-0.49) NG/ML Fluid Appearance Sl cloudy (CLEAR) Fluid WBC 106.0 (0.0-300.0) /mm3 Fluid RBC 6508.0 H (0.0-0.0) /mm3 Fluid Tot Cell Count TEST NOT PERFORMED Fluid Neutrophils 35.0 H (0-0) % Fluid Lymphocytes 60.0 H (0-0) % Fld Monocyte/Macrophag 5 H (0-0) % Fluid Comment Laboratory Results - last 24 hr 03/31/18 03/31/18 04/01/18 18:24 18:24 04:35 WBC RBC Hgb Hct MCV MCH MCHC RDW Plt Count MPV Neut % (Auto) Lymph % (Auto) [place] % (Auto) Eos % (Auto) Baso % (Auto) Neut # (Auto) Lymph # (Auto) [place] # (Auto) Eos # (Auto) Baso # (Auto) Puncture Site Rr pCO2 46 H pO2 144 H HCO3 34.5 H ABG pH 7.51 H ABG Total CO2 38.1 H ABG O2 Saturation 99.6 H ABG Base Excess 12.3 H ABG Hemoglobin 9.6 L ABG Carboxyhemoglobin 2.2 H POC ABG HHb (Measured) 0.4 ABG Methemoglobin 0.7 Pawel Test Pos A-a O2 Difference 155.0 Respiratory Index 1.1 Hgb O2 Saturation 96.7 Vent Mode Prvc Mechanical Rate 14 FiO2 50.0 Tidal Volume 420 PEEP 5 Sodium Potassium Chloride Carbon Dioxide Anion Gap BUN Creatinine Est GFR ( Amer) Est GFR (Non-Af Amer) Random Glucose Calcium Phosphorus Magnesium Total Bilirubin AST ALT Alkaline Phosphatase Total Protein Albumin Globulin Albumin/Globulin Ratio Procalcitonin 0.23 Fluid Appearance Sl cloudy Fluid WBC 106.0 Fluid RBC 6508.0 H Fluid Tot Cell Count TEST NOT PERFORMED Fluid Neutrophils 35.0 H Fluid Lymphocytes 60.0 H Fld Monocyte/Macrophag 5 H Fluid Comment 04/01/18 04/01/18 06:02 06:02 WBC 6.4 RBC 3.77 L Hgb 9.7 L Hct 31.6 L MCV 83.7 MCH 25.7 L MCHC 30.7 L RDW 24.9 H Plt Count 204 MPV 9.5 Neut % (Auto) 78.0 H Lymph % (Auto) 11.0 L [place] % (Auto) 9.4 Eos % (Auto) 0.6 Baso % (Auto) 1.0 Neut # (Auto) 5.0 Lymph # (Auto) 0.7 L [place] # (Auto) 0.6 Eos # (Auto) 0.0 Baso # (Auto) 0.1 Puncture Site pCO2 pO2 HCO3 ABG pH ABG Total CO2 ABG O2 Saturation ABG Base Excess ABG Hemoglobin ABG Carboxyhemoglobin POC ABG HHb (Measured) ABG Methemoglobin Pawel Test A-a O2 Difference Respiratory Index Hgb O2 Saturation Vent Mode Mechanical Rate FiO2 Tidal Volume PEEP Sodium 146 Potassium 3.9 Chloride 108 H Carbon Dioxide 37 H Anion Gap 6 L BUN 35 H Creatinine 0.7 Est GFR ( Amer) > 60 Est GFR (Non-Af Amer) > 60 Random Glucose 173 H Calcium 8.0 L Phosphorus 2.8 Magnesium 2.4 H Total Bilirubin 0.7 AST 14 ALT 17 Alkaline Phosphatase 58 Total Protein 5.3 L Albumin 2.5 L Globulin 2.8 Albumin/Globulin Ratio 0.9 L Procalcitonin Fluid Appearance Fluid WBC Fluid RBC Fluid Tot Cell Count Fluid Neutrophils Fluid Lymphocytes Fld Monocyte/Macrophag Fluid Comment Radiology Impressions: Radiology Impressions Joint Effusion US 03/31/18 10:17 IMPRESSION: Chest X-Ray 04/01/18 07:00 IMPRESSION: New right infrahilar opacity. Possible of Elavil pneumonia. Follow-up advised. Opacity at lateral right lung base, possibly related to overlying rib. Suspect small left pleural effusion. Lines and tubes unchanged. Critical Care Progress Note - Nutrition Nutrition: Nutrition Category Date Time Status NPO Diet [DIET] Diets 03/24/18 Breakfast Active Attending/Attestation - Attestation I have personally seen and examined this patient.: Yes I have fully participated in the care of the patient.: Yes I have reviewed all pertinent clinical information: Yes Notes (Text): 04/01/18 18:29 Today: March The Patient was seen and examined at the bedside, Medical records reviewed, and management issues were discussed and formulated with the house staff. I have reviewed all the relevant clinical, laboratory, hemodynamic, radiographic data and medications Events reviewed Pain issues, skin care, head of the bed elevation, glycemic control were addressed. Agree with above resident's assessment and treatment plans of care as transcribed in Dr. Valenzuela's note.
[2018-04-01] MEDS: Azithromycin 500mg/250ML NS 500 MG/250 ML BAG IVPB SCH (13:20)
--- NOTE | 2018-04-01 16:21 | CP.PCM.PN ---
Subjective - Date & Time of Evaluation Date of Evaluation: 04/01/18 Time of Evaluation: 08:00 - Subjective Subjective: fever again last nbight recultured Objective - Vital Signs/Intake and Output Vital Signs (last 24 hours): Temp Pulse Resp BP Pulse Ox 98.8 F 102 H 22 108/84 100 04/01/18 13:01 04/01/18 14:11 04/01/18 14:11 04/01/18 14:11 04/01/18 14:11 Intake and Output: 04/01/18 04/01/18 06:59 18:59 Intake Total 1435.7 985 Output Total 515 1025 Balance 920.7 -40 - Medications Medications: Current Medications Acetaminophen (Tylenol 325mg Tab) 650 mg PO Q6 PRN PRN Reason: Fever >100.4 F Last Admin: 04/01/18 12:01 Dose: 650 mg Albuterol/Ipratropium (Duoneb 3 Mg/0.5 Mg (3 Ml) Ud) 3 ml INH RQ4 KEV Last Admin: 04/01/18 15:43 Dose: 3 ml Amiodarone HCl (Cordarone) 200 mg PO DAILY KEV Last Admin: 04/01/18 09:09 Dose: 200 mg Apixaban (Eliquis) 5 mg PO BID KEV Last Admin: 03/24/18 18:27 Dose: 5 mg Furosemide (Lasix) 20 mg IVP DAILY KEV Last Admin: 04/01/18 09:12 Dose: 20 mg Norepinephrine Bitartrate 4 mg (/ Sodium Chloride) 254 mls @ 15.24 mls/hr IV .[id number] PRN; Protocol PRN Reason: TITRATE PER MD ORDER Last Titration: 03/28/18 17:48 Dose: Infused Fluconazole (Diflucan Iv 100 Mg/50 Ml Ns) 50 mls @ 100 mls/hr IVPB DAILY K[facility]; Protocol Last Admin: 04/01/18 09:08 Dose: 100 mls/hr Azithromycin (Zithromax 500mg In Ns Addvantage) 500 mg in 250 mls @ 167 mls/hr IVPB Q24H K[facility]; Protocol Last Admin: 04/01/18 13:20 Dose: 167 mls/hr Piperacillin Sod/Tazobactam (Sod 3.375 gm/ Sodium Chloride) 100 mls @ 200 mls/hr IVPB Q8H [facility]; Protocol Last Admin: 04/01/18 13:20 Dose: 200 mls/hr Lactulose (Enulose) 20 gm PO HS PRN PRN Reason: Constipation Last Admin: 03/30/18 19:53 Dose: 20 gm Lorazepam (Ativan) 2 mg IVP Q4H PRN PRN Reason: Anxiety Last Admin: 03/31/18 13:06 Dose: 2 mg Nystatin (Nystop Topical Powder) 1 applic TOP BID [facility] Last Admin: 04/01/18 09:09 Dose: 1 applic Pantoprazole Sodium (Protonix Susp) 40 mg PO DAILY [facility] Last Admin: 04/01/18 09:09 Dose: 40 mg Silver Sulfadiazine (Silvadene 1% 20 Gm) 0 ea TOP BID [facility] Last Admin: 04/01/18 09:10 Dose: 1 applic - Labs Labs: 04/01/18 06:02 04/01/18 06:02 PT 17.6 SECONDS (9.7-12.2) H 03/31/18 06:13 INR 1.6 03/31/18 06:13 APTT 34 SECONDS (21-34) 03/31/18 06:13 - Constitutional Appears: Non-toxic, Chronically Ill - Head Exam Head Exam: NORMOCEPHALIC - Eye Exam Eye Exam: absent: Scleral icterus - ENT Exam ENT Exam: Mucous Membranes Dry - Neck Exam Neck Exam: absent: Lymphadenopathy - Respiratory Exam Respiratory Exam: Decreased Breath Sounds - Cardiovascular Exam Cardiovascular Exam: REGULAR RHYTHM - GI/Abdominal Exam GI & Abdominal Exam: Distended - Rectal Exam Rectal Exam: Deferred Assessment and Plan (1) Acute respiratory failure Status: Acute (2) Atrial fibrillation and flutter Status: Acute (3) CHF (congestive heart failure) Status: Acute (4) Pleural effusion Status: Acute - Assessment and Plan (Free Text) Assessment: cont rx recultured
--- NOTE | 2018-04-01 16:44 | US ---
Date of service: 03/31/2018 PROCEDURE: Ultrasound right pleural space HISTORY: mapping for pleural effusion COMPARISON: None TECHNIQUE: Standard protocol for this study/examination. FINDINGS: Pleural fluid identified right pleural space. Area on the skin surface corresponding to the pocket was marked. IMPRESSION:
--- NOTE | 2018-04-01 16:59 | CP.PCM.PN ---
Subjective - Date & Time of Evaluation Date of Evaluation: 04/01/18 Time of Evaluation: 16:56 - Subjective Subjective: still entubated breathing beter thoracocyntesis don 1600 fluid taken out yesterday Objective - Vital Signs/Intake and Output Vital Signs (last 24 hours): Temp Pulse Resp BP Pulse Ox 98.8 F 102 H 22 108/84 100 04/01/18 13:01 04/01/18 14:11 04/01/18 14:11 04/01/18 14:11 04/01/18 14:11 Intake and Output: 04/01/18 04/01/18 06:59 18:59 Intake Total 1435.7 985 Output Total 515 1025 Balance 920.7 -40 - Medications Medications: Current Medications Acetaminophen (Tylenol 325mg Tab) 650 mg PO Q6 PRN PRN Reason: Fever >100.4 F Last Admin: 04/01/18 12:01 Dose: 650 mg Albuterol/Ipratropium (Duoneb 3 Mg/0.5 Mg (3 Ml) Ud) 3 ml INH RQ4 KEV Last Admin: 04/01/18 15:43 Dose: 3 ml Amiodarone HCl (Cordarone) 200 mg PO DAILY KEV Last Admin: 04/01/18 09:09 Dose: 200 mg Apixaban (Eliquis) 5 mg PO BID KEV Last Admin: 03/24/18 18:27 Dose: 5 mg Furosemide (Lasix) 20 mg IVP DAILY KEV Last Admin: 04/01/18 09:12 Dose: 20 mg Norepinephrine Bitartrate 4 mg (/ Sodium Chloride) 254 mls @ 15.24 mls/hr IV .[id number] PRN; Protocol PRN Reason: TITRATE PER MD ORDER Last Titration: 03/28/18 17:48 Dose: Infused Fluconazole (Diflucan Iv 100 Mg/50 Ml Ns) 50 mls @ 100 mls/hr IVPB DAILY [facility]; Protocol Last Admin: 04/01/18 09:08 Dose: 100 mls/hr Azithromycin (Zithromax 500mg In Ns Addvantage) 500 mg in 250 mls @ 167 mls/hr IVPB Q24H [facility]; Protocol Last Admin: 04/01/18 13:20 Dose: 167 mls/hr Cefepime HCl (Maxipime Iv 1 Gm Premix) 1 gm in 50 mls @ 100 mls/hr IVPB Q12H [facility]; Protocol Lactulose (Enulose) 20 gm PO HS PRN PRN Reason: Constipation Last Admin: 03/30/18 19:53 Dose: 20 gm Lorazepam (Ativan) 2 mg IVP Q4H PRN PRN Reason: Anxiety Last Admin: 03/31/18 13:06 Dose: 2 mg Nystatin (Nystop Topical Powder) 1 applic TOP BID [facility] Last Admin: 04/01/18 09:09 Dose: 1 applic Pantoprazole Sodium (Protonix Susp) 40 mg PO DAILY [facility] Last Admin: 04/01/18 09:09 Dose: 40 mg Silver Sulfadiazine (Silvadene 1% 20 Gm) 0 ea TOP BID [facility] Last Admin: 04/01/18 09:10 Dose: 1 applic - Labs Labs: 04/01/18 06:02 04/01/18 06:02 PT 17.6 SECONDS (9.7-12.2) H 03/31/18 06:13 INR 1.6 03/31/18 06:13 APTT 34 SECONDS (21-34) 03/31/18 06:13 - Constitutional Appears: Non-toxic - Head Exam Head Exam: ATRAUMATIC - Eye Exam Eye Exam: Normal appearance Pupil Exam: NORMAL ACCOMODATION - ENT Exam ENT Exam: Mucous Membranes Moist - Neck Exam Neck Exam: Normal Inspection - Respiratory Exam Respiratory Exam: Decreased Breath Sounds - Cardiovascular Exam Cardiovascular Exam: Tachycardia - GI/Abdominal Exam GI & Abdominal Exam: Normal Bowel Sounds - Extremities Exam Additional comments: leg swallen and celulitis - Back Exam Back Exam: NORMAL INSPECTION - Neurological Exam Neurological Exam: Awake - Psychiatric Exam Psychiatric exam: Normal Affect - Skin Skin Exam: Pallor Assessment and Plan - Assessment and Plan (Free Text) Assessment: chf pleural efusion aneamia celulitis lower ext Plan: as per orders add bactroban ointment
[2018-04-01] MEDS: Cefepime IV 1 gm in Dextrose 1 GM/50 ML BAG IVPB SCH (17:28)
[2018-04-01] MEDS: Bacitracin Ointment 30 GM TUBE TOP SCH (17:36)
[2018-04-02] MEDS: Albuterol-Ipratrop 3 mg / 0.5 (3 ml) UD INH SCH ×4 (00:30→19:46)
[2018-04-02] MEDS: Cefepime IV 1 gm in Dextrose 1 GM/50 ML BAG IVPB SCH ×2 (04:30→15:43)
[2018-04-02 05:49] LABS: ABG ALLEN TEST POS; ARTERIAL BLOOD GAS HCO3 33.7 mmol/L (21-28); ARTERIAL BLOOD GAS HEMOGLOBIN 10.7 g/dL (11.7-17.4); ARTERIAL BLOOD GAS O2 SAT 99.4 % (95-98); ARTERIAL BLOOD GAS PCO2 50 mm/Hg (35-45); ARTERIAL BLOOD GAS PH 7.47 (7.35-7.45); ARTERIAL BLOOD GAS PO2 139 mm/Hg (80-100); ARTERIAL BLOOD GAS TCO2 37.9 mmol/L (22-28)
[2018-04-02 06:23] LABS: BASO # 0.1 K/uL (0.0-0.2); BASO % 1.1 % (0.0-2.0); EOS # 0.1 K/uL (0.0-0.7); EOS % 0.9 % (0.0-4.0); LYMPH # 1.1 K/uL (1.0-4.3); LYMPH % 15.7 % (20.0-40.0); MEAN CELL VOLUME 84.5 fL (81.0-99.0); MEAN CORPUSCULAR HEMOGLOBIN 25.7 pg (27.0-31.0); MEAN CORPUSCULAR HGB CONC 30.3 g/dL (33.0-37.0); MEAN PLATELET VOLUME 9.5 fL (7.2-11.7); MONO # 0.6 K/uL (0.0-0.8); MONO % 8.7 % (0.0-10.0); NEUT # 4.9 K/uL (1.8-7.0); NEUT % 73.6 % (50.0-75.0); RBC 3.5 Mil/uL (3.80-5.20); RED CELL DISTRIBUTION WIDTH 24.5 % (11.5-14.5); WHITE BLOOD COUNT 6.7 K/uL (4.8-10.8)
[2018-04-02 06:48] LABS: ALB/GLOB RATIO 0.9 (1.0-2.1); ALBUMIN 2.4 g/dL (3.5-5.0); ALT/SGPT 15 U/L (9-52); AST/SGOT 14 U/L (14-36); BLOOD UREA NITROGEN 40 mg/dL (7-17); CALCIUM 7.9 mg/dl (8.6-10.4); GFR NON-AFRICAN AMERICAN > 60
[2018-04-02] MEDS: Bacitracin Ointment 30 GM TUBE TOP SCH ×2 (09:12→17:12)
[2018-04-02] MEDS: MethylPREDNISolone 40 mg Vial IVP SCH ×2 (09:13→16:38)
[2018-04-02] MEDS: Pantoprazole 40 mg Susp UD PO SCH (09:13)
[2018-04-02] MEDS: Silver Sulfadiazine 1% Cream (20 gm) TOP SCH ×2 (09:14→17:11)
[2018-04-02] MEDS: Fluconazole IV 100mg/50 ml NS 50 ML IVPB SCH (09:15)
--- NOTE | 2018-04-02 09:38 | RAD ---
Date of service: 04/02/2018 HISTORY: intubated; s/p thoracentesis COMPARISON: 04/01/2018. FINDINGS: The endotracheal tube terminates 3 cm proximal to the fareed. The left IJV line terminates in the brachiocephalic vein. The nasogastric tube terminates in the stomach. LUNGS: There is haziness in both lower lobes, worse on the left. PLEURA: Again seen are layering effusions, larger on the left. No pneumothorax. CARDIOVASCULAR: The heart is normal in size. There are aortic atherosclerotic calcifications present. OSSEOUS STRUCTURES: Within normal limits for the patient's age. VISUALIZED UPPER ABDOMEN: Normal. OTHER FINDINGS: None. IMPRESSION: Redemonstration of layering pleural effusions, larger on the left. Haziness in both lower lobes may represent pulmonary edema or layering effusions. Stable position of support line and tubes.
[2018-04-02] MEDS: Multiple Vitamins Oral Solution PO SCH (09:53)
--- NOTE | 2018-04-02 10:44 | CP.CCUPN ---
<Margi Valenzuela - Last Filed: 04/02/18 10:41> CCU Subjective - Physician Review Subjective (Free Text): PGY-1 Critical Care Progress Note for Dr. Valadez's service Patient seen and examined at bedside. 12 point ROS limited as patient is intubated. Approximately 1100 ml of fluid were drained from thoracentesis POD 2. Extubation process planned for today. CCU Objective - Vital Signs / Intake & Output Vital Signs (Last 4 hours): Vital Signs Temp Pulse Resp BP Pulse Ox 04/02/18 09:13 120/80 04/02/18 08:00 100 F H 106 H 14 97 04/02/18 07:31 114 H 20 92 L 04/02/18 07:00 105 H 23 98 Intake and Output (Last 8hrs): Intake & Output 04/01/18 04/02/18 04/02/18 22:59 06:59 14:59 Intake Total 605 505 185 Output Total 375 415 225 Balance 230 90 -40 Weight 223 lb 0.19 oz Intake: Intake, IV Amount 85 85 105 Left Proximal Port 85 85 105 Internal Jugular Tube Feeding 320 320 80 Other 200 100 Output: Urine 375 415 225 Urethral (Dover) 375 415 225 Other: # Bowel Movements 0 0 0 - Physical Exam Head: Positive for: Atraumatic, Normocephalic, Other (central line in left IJ) Pupils: Positive for: PERRL Extroacular Muscles: Positive for: EOMI Conjunctiva: Positive for: Normal Mouth: Positive for: Dry, Other (ET tube in place) Neck: Positive for: Normal Range of Motion. Negative for: JVD, Lymphadenopathy Respiratory/Chest: Positive for: Good Air Exchange, Decreased Breath Sounds. Negative for: Respiratory Distress, Accessory Muscle Use, Wheezes, Tachypneic Cardiovascular: Positive for: Regular Rate and Rhythm, Normal S1, S2. Negative for: Murmurs, Irregular Rhythm Abdomen: Positive for: Normal Bowel Sounds. Negative for: Tenderness, Distention, Peritoneal Signs Genitourinary/Pelvic Exam: Positive for: Other (Doevr in place for strict Is/Os) Upper Extremity: Positive for: Normal Inspection, Edema. Negative for: Cyanosis Lower Extremity: Positive for: Normal Inspection, Edema Skin: Positive for: Dry, Normal Color. Negative for: Diaphoretic Psychiatric: Positive for: Alert - Medications Active Medications: Active Medications Generic Name Dose Route Start Last Admin Trade Name Freq PRN Reason Stop Dose Admin Acetaminophen 650 mg 03/23/18 15:59 04/02/18 04:36 Tylenol 325mg Tab PO 650 mg Q6 PRN Administration Fever >100.4 F Albuterol/Ipratropium 3 ml 03/23/18 20:00 04/02/18 07:55 Duoneb 3 Mg/0.5 Mg (3 Ml) Ud INH 3 ml RQ4 KEV Administration Albuterol/Ipratropium 3 ml 04/02/18 14:00 Duoneb 3 Mg/0.5 Mg (3 Ml) Ud INH RQ6 KEV Amiodarone HCl 200 mg 03/23/18 16:45 04/02/18 09:12 Cordarone PO 200 mg DAILY KEV Administration Apixaban 5 mg 03/23/18 18:00 04/02/18 09:13 Eliquis PO 5 mg BID KEV Administration Ascorbic Acid 500 mg 04/02/18 10:00 04/02/18 09:13 Vitamin C 500 Mg Tab PO 500 mg BID KEV Administration Bacitracin 0 gm 04/01/18 18:00 04/02/18 09:12 Bacitracin TOP 1 applic BID KEV Administration Furosemide 20 mg 03/28/18 10:00 04/02/18 09:13 Lasix IVP 20 mg DAILY KEV Administration Fluconazole 50 mls @ 100 mls/hr 03/27/18 10:00 04/02/18 09:15 Diflucan Iv 100 Mg/50 Ml Ns IVPB 100 mls/hr DAILY KEV Administration Protocol Azithromycin 500 mg in 250 mls @ 167 mls/hr 03/28/18 14:15 04/01/18 13:20 Zithromax 500mg In Ns Addvantage IVPB 167 mls/hr Q24H KEV Administration Protocol Cefepime HCl 1 gm in 50 mls @ 100 mls/hr 04/01/18 16:30 04/02/18 04:30 Maxipime Iv 1 Gm Premix IVPB 100 mls/hr Q12H KEV Administration Protocol Potassium Chloride 20 meq in 100 mls @ 50 mls/hr 04/02/18 07:30 04/02/18 09:10 Potassium Chloride 20 Meq/100 Ml IVPB 04/02/18 13:29 50 mls/hr Q2H KEV Administration Lactulose 20 gm 12/25/18 19:13 03/30/18 19:53 Enulose PO 20 gm HS PRN Administration Constipation Lorazepam 2 mg 03/27/18 10:19 03/31/18 13:06 Ativan IVP 2 mg Q4H PRN Administration Anxiety Methylprednisolone 40 mg 04/02/18 09:00 04/02/18 09:13 Solu-Medrol IVP 40 mg Q8H KEV Administration Multivitamins/Vitamin C 5 ml 04/02/18 10:00 04/02/18 09:53 Multi-Delyn Liquid PO 5 ml DAILY KEV Administration Nystatin 1 applic 03/23/18 18:00 04/02/18 09:14 Nystop Topical Powder TOP 1 applic BID KEV Administration Pantoprazole Sodium 40 mg 03/27/18 10:00 04/02/18 09:13 Protonix Susp PO 40 mg DAILY KEV Administration Silver Sulfadiazine 0 ea 03/26/18 10:00 04/02/18 09:14 Silvadene 1% 20 Gm TOP 1 applic BID KEV Administration Verapamil HCl 40 mg 04/02/18 09:00 04/02/18 09:12 Calan Tab PO 40 mg Q6H KEV Administration Zinc Sulfate 220 mg 04/02/18 10:00 04/02/18 09:13 Zinc Sulfate 220 Mg Cap PO 220 mg DAILY KEV Administration - Patient Studies Lab Studies: Microbiology Studies 03/31/18 14:55 Blood Culture - Preliminary Blood-Thru Central Line NO GROWTH AFTER 24 HOURS 03/31/18 14:55 Blood Culture - Preliminary Blood-Thru Central Line NO GROWTH AFTER 24 HOURS 03/31/18 18:24 Gram Stain - Final Pleural Fluid Body Fluid Culture - Preliminary NO GROWTH AFTER 24 HOURS 03/31/18 14:55 Urine Culture - Final Urine,Dover No Growth (<1,000 CFU/ML) Lab Studies 04/02/18 04/02/18 04/02/18 Range/Units 06:10 06:10 05:14 WBC 6.7 (4.8-10.8) K/uL RBC 3.50 L (3.80-5.20) Mil/uL Hgb 9.0 L (11.0-16.0) g/dL Hct 29.6 L (34.0-47.0) % MCV 84.5 (81.0-99.0) fL MCH 25.7 L (27.0-31.0) pg MCHC 30.3 L (33.0-37.0) g/dL RDW 24.5 H (11.5-14.5) % Plt Count 195 (130-400) K/uL MPV 9.5 (7.2-11.7) fL Neut % (Auto) 73.6 (50.0-75.0) % Lymph % (Auto) 15.7 L (20.0-40.0) % [place] % (Auto) 8.7 (0.0-10.0) % Eos % (Auto) 0.9 (0.0-4.0) % Baso % (Auto) 1.1 (0.0-2.0) % Neut # (Auto) 4.9 (1.8-7.0) K/uL Lymph # (Auto) 1.1 (1.0-4.3) K/uL [place] # (Auto) 0.6 (0.0-0.8) K/uL Eos # (Auto) 0.1 (0.0-0.7) K/uL Baso # (Auto) 0.1 (0.0-0.2) K/uL Puncture Site Rr pCO2 50 H (35-45) mm/Hg pO2 139 H (80-100) mm/Hg HCO3 33.7 H (21-28) mmol/L ABG pH 7.47 H (7.35-7.45) ABG Total CO2 37.9 H (22-28) mmol/L ABG O2 Saturation 99.4 H (95-98) % ABG Base Excess 11.2 H (-2.0-3.0) mmol/L ABG Hemoglobin 10.7 L (11.7-17.4) g/dL ABG Carboxyhemoglobin 2.0 H (0.5-1.5) % POC ABG HHb (Measured) 0.6 (0.0-5.0) % ABG Methemoglobin 1.0 (0.0-3.0) % Pawel Test Pos A-a O2 Difference 155.0 mm/Hg Respiratory Index 1.1 Hgb O2 Saturation 96.4 (95.0-98.0) % Vent Mode Prvc Mechanical Rate 14 FiO2 50.0 % Tidal Volume 420 PEEP 5 Sodium 146 (132-148) mmol/L Potassium 3.4 L (3.6-5.2) mmol/L Chloride 109 H (98-107) mmol/L Carbon Dioxide 36 H (22-30) mmol/L Anion Gap 4 L (10-20) BUN 40 H (7-17) mg/dL Creatinine 0.7 (0.7-1.2) mg/dL Est GFR ( Amer) > 60 Est GFR (Non-Af Amer) > 60 Random Glucose 115 H D (65-105) mg/dL Calcium 7.9 L (8.6-10.4) mg/dl Phosphorus 2.7 (2.5-4.5) mg/dL Magnesium 2.4 H (1.6-2.3) mg/dL Total Bilirubin 0.8 (0.2-1.3) mg/dL AST 14 (14-36) U/L ALT 15 (9-52) U/L Alkaline Phosphatase 46 (38-126) U/L Total Protein 5.1 L (6.3-8.3) g/dL Albumin 2.4 L (3.5-5.0) g/dL Globulin 2.7 (2.2-3.9) gm/dL Albumin/Globulin Ratio 0.9 L (1.0-2.1) Laboratory Results - last 24 hr 04/02/18 04/02/18 04/02/18 05:14 06:10 06:10 WBC 6.7 RBC 3.50 L Hgb 9.0 L Hct 29.6 L MCV 84.5 MCH 25.7 L MCHC 30.3 L RDW 24.5 H Plt Count 195 MPV 9.5 Neut % (Auto) 73.6 Lymph % (Auto) 15.7 L [place] % (Auto) 8.7 Eos % (Auto) 0.9 Baso % (Auto) 1.1 Neut # (Auto) 4.9 Lymph # (Auto) 1.1 [place] # (Auto) 0.6 Eos # (Auto) 0.1 Baso # (Auto) 0.1 Puncture Site Rr pCO2 50 H pO2 139 H HCO3 33.7 H ABG pH 7.47 H ABG Total CO2 37.9 H ABG O2 Saturation 99.4 H ABG Base Excess 11.2 H ABG Hemoglobin 10.7 L ABG Carboxyhemoglobin 2.0 H POC ABG HHb (Measured) 0.6 ABG Methemoglobin 1.0 Pawel Test Pos A-a O2 Difference 155.0 Respiratory Index 1.1 Hgb O2 Saturation 96.4 Vent Mode Prvc Mechanical Rate 14 FiO2 50.0 Tidal Volume 420 PEEP 5 Sodium 146 Potassium 3.4 L Chloride 109 H Carbon Dioxide 36 H Anion Gap 4 L BUN 40 H Creatinine 0.7 Est GFR ( Amer) > 60 Est GFR (Non-Af Amer) > 60 Random Glucose 115 H D Calcium 7.9 L Phosphorus 2.7 Magnesium 2.4 H Total Bilirubin 0.8 AST 14 ALT 15 Alkaline Phosphatase 46 Total Protein 5.1 L Albumin 2.4 L Globulin 2.7 Albumin/Globulin Ratio 0.9 L Radiology Impressions: Radiology Impressions Joint Effusion US 03/31/18 10:17 IMPRESSION: Chest X-Ray 04/02/18 07:00 IMPRESSION: Redemonstration of layering pleural effusions, larger on the left. Haziness in both lower lobes may represent pulmonary edema or layering effusions. Stable position of support line and tubes. Review of Systems - Review of Systems Systems not reviewed;Unavailable: Intubated Critical Care Progress Note - Ventilator Checklist Head of Bed 30 Degrees: Yes Daily Sedation Vacation: Yes Daily Assessment of Readiness to Wean: Yes Daily Spontaneous Breathing Trial: Yes PUD Prophalyxis: Yes DVT Prophylaxis: Yes Oral Care with Chlorhexidine Gluconate {CHG}: Yes - Vent Settings MODE:: CPAP FIO2:: 50 PEEP:: 5 PRESSURE SUPPORT:: 15 - Extremities/Vascular Does the Patient have a Central Venous Catheter?: Yes Insertion Site: Internal Jugular Vein Does the Patient need a Central Venous Catheter?: Yes (blood pressure control) Does the Patient have a [place] Catheter?: Yes Does the Patient need a [place] Catheter?: Yes Catheter Insertion Criteria: Need for accurate measurement of output in critically ill patient - Prophylaxis GI Prophylaxis GI: PPI - Nutrition Nutrition: Nutrition Category Date Time Status NPO Diet [DIET] Diets 03/24/18 Breakfast Active Assessment/Plan - Assessment and Plan (Free Text) Assessment: Patient is a 82 yo female w/ PMH of CHF, HTN, Afib on AC admitted for bilateral pleural effusions and pneumonia. Was breathing on bipap in ED however after transfer to ICU, patient decompensated only responding to painful stimuli. GCS of 6. Patient was intubated. Patient became hypotensive so central line was placed for levophed drip. POD 1 s/p thoracentesis with 1100 fluid removed. Home AC restarted. Precedex and levophed dc'ed. Will attempt to wean patient off. Neuro Patient has been alert and oriented off precedex drip Ativan PRN Pulm Duoneb Azithromycin/Cefepime/Fluconazole ET tube in place POD 1 thoracentesis 1100ml fluid drained- pending complete fluid studies Methylprednisolone CV Lasix Amiodarone Verapamil Elqiuis GI no active issues On tube feeds Jevity with prostat bid Protonix; Lactulose Heme AC held; INR 1.6 Renal Zinc/Multivitamins/Vitamin C KCL 20meq x 3; Repeat CMP in AM Derm Podiatry following for foot ulcer on right- Nystatin Wound care for unstagable sacral ulcer and buttock ulcer- recommendations are continued as per wound care- bacitracin Continue to monitor ID Azith/Cefepime/Fluconazole + trach asp for yeast species; + urine cx for yeast species new figueredo cx prelim- negative GI ppx: Protonix DVT ppx: Elquis 5mg po bid Margi Valenzuela PGY-1 Case d/w Dr. Valadez <Matilde Valadez - Last Filed: 04/02/18 12:22> CCU Objective - Vital Signs / Intake & Output Vital Signs (Last 4 hours): Vital Signs Pulse Resp BP Pulse Ox 04/02/18 11:30 105 H 24 127/93 H 89 L 04/02/18 11:00 99 H 17 97 04/02/18 10:29 101 H 23 112/83 94 L 04/02/18 10:00 102 H 13 99 04/02/18 09:58 103/74 04/02/18 09:30 108 H 26 H 86 L 04/02/18 09:13 120/80 04/02/18 09:00 111 H 21 97 04/02/18 08:30 103 H 14 120/80 98 Intake and Output (Last 8hrs): Intake & Output 04/01/18 04/02/18 04/02/18 22:59 06:59 14:59 Intake Total 605 505 595 Output Total 375 415 625 Balance 230 90 -30 Weight 223 lb 0.19 oz Intake: Intake, IV Amount 85 85 355 Left Proximal Port 85 85 355 Internal Jugular Tube Feeding 320 320 120 Other 200 100 120 Output: Urine 375 415 625 Urethral (Dover) 375 415 625 Other: # Bowel Movements 0 0 0 - Medications Active Medications: Active Medications Generic Name Dose Route Start Last Admin Trade Name Freq PRN Reason Stop Dose Admin Acetaminophen 650 mg 03/23/18 15:59 04/02/18 04:36 Tylenol 325mg Tab PO 650 mg Q6 PRN Administration Fever >100.4 F Albuterol/Ipratropium 3 ml 04/02/18 14:00 Duoneb 3 Mg/0.5 Mg (3 Ml) Ud INH RQ6 KEV Amiodarone HCl 200 mg 03/23/18 16:45 04/02/18 09:12 Cordarone PO 200 mg DAILY KEV Administration Apixaban 5 mg 03/23/18 18:00 04/02/18 09:13 Eliquis PO 5 mg BID KEV Administration Ascorbic Acid 500 mg 04/02/18 10:00 04/02/18 09:13 Vitamin C 500 Mg Tab PO 500 mg BID KEV Administration Bacitracin 0 gm 04/01/18 18:00 04/02/18 09:12 Bacitracin TOP 1 applic BID KEV Administration Furosemide 20 mg 03/28/18 10:00 04/02/18 09:13 Lasix IVP 20 mg DAILY KEV Administration Fluconazole 50 mls @ 100 mls/hr 03/27/18 10:00 04/02/18 09:15 Diflucan Iv 100 Mg/50 Ml Ns IVPB 100 mls/hr DAILY KEV Administration Protocol Azithromycin 500 mg in 250 mls @ 167 mls/hr 03/28/18 14:15 04/01/18 13:20 Zithromax 500mg In Ns Addvantage IVPB 167 mls/hr Q24H KEV Administration Protocol Cefepime HCl 1 gm in 50 mls @ 100 mls/hr 04/01/18 16:30 04/02/18 04:30 Maxipime Iv 1 Gm Premix IVPB 100 mls/hr Q12H KEV Administration Protocol Potassium Chloride 20 meq in 100 mls @ 50 mls/hr 04/02/18 07:30 04/02/18 11:34 Potassium Chloride 20 Meq/100 Ml IVPB 04/02/18 13:29 50 mls/hr Q2H KEV Administration Lactulose 20 gm 03/30/18 19:13 03/30/18 19:53 Enulose PO 20 gm HS PRN Administration Constipation Methylprednisolone 40 mg 04/02/18 09:00 04/02/18 09:13 Solu-Medrol IVP 40 mg Q8H KEV Administration Multivitamins/Vitamin C 5 ml 04/02/18 10:00 04/02/18 09:53 Multi-Delyn Liquid PO 5 ml DAILY KEV Administration Nystatin 1 applic 03/23/18 18:00 04/02/18 09:14 Nystop Topical Powder TOP 1 applic BID KEV Administration Pantoprazole Sodium 40 mg 03/27/18 10:00 04/02/18 09:13 Protonix Susp PO 40 mg DAILY KEV Administration Silver Sulfadiazine 0 ea 03/26/18 10:00 04/02/18 09:14 Silvadene 1% 20 Gm TOP 1 applic BID KEV Administration Verapamil HCl 40 mg 04/02/18 09:00 04/02/18 09:12 Calan Tab PO 40 mg Q6H KEV Administration Zinc Sulfate 220 mg 04/02/18 10:00 04/02/18 09:13 Zinc Sulfate 220 Mg Cap PO 220 mg DAILY KEV Administration - Patient Studies Lab Studies: Microbiology Studies 03/31/18 18:24 Gram Stain - Final Pleural Fluid Body Fluid Culture - Preliminary NO GROWTH AFTER 2 DAYS 03/31/18 14:55 Gram Stain - Final Trachasp Sputum Culture - Final NORMAL ORAL BRYANNA 03/31/18 14:55 Blood Culture - Preliminary Blood-Thru Central Line NO GROWTH AFTER 24 HOURS 03/31/18 14:55 Blood Culture - Preliminary Blood-Thru Central Line NO GROWTH AFTER 24 HOURS 03/31/18 14:55 Urine Culture - Final Urine,Dover No Growth (<1,000 CFU/ML) Lab Studies 04/02/18 04/02/18 04/02/18 Range/Units 06:10 06:10 05:14 WBC 6.7 (4.8-10.8) K/uL RBC 3.50 L (3.80-5.20) Mil/uL Hgb 9.0 L (11.0-16.0) g/dL Hct 29.6 L (34.0-47.0) % MCV 84.5 (81.0-99.0) fL MCH 25.7 L (27.0-31.0) pg MCHC 30.3 L (33.0-37.0) g/dL RDW 24.5 H (11.5-14.5) % Plt Count 195 (130-400) K/uL MPV 9.5 (7.2-11.7) fL Neut % (Auto) 73.6 (50.0-75.0) % Lymph % (Auto) 15.7 L (20.0-40.0) % [place] % (Auto) 8.7 (0.0-10.0) % Eos % (Auto) 0.9 (0.0-4.0) % Baso % (Auto) 1.1 (0.0-2.0) % Neut # (Auto) 4.9 (1.8-7.0) K/uL Lymph # (Auto) 1.1 (1.0-4.3) K/uL [place] # (Auto) 0.6 (0.0-0.8) K/uL Eos # (Auto) 0.1 (0.0-0.7) K/uL Baso # (Auto) 0.1 (0.0-0.2) K/uL Puncture Site Rr pCO2 50 H (35-45) mm/Hg pO2 139 H (80-100) mm/Hg HCO3 33.7 H (21-28) mmol/L ABG pH 7.47 H (7.35-7.45) ABG Total CO2 37.9 H (22-28) mmol/L ABG O2 Saturation 99.4 H (95-98) % ABG Base Excess 11.2 H (-2.0-3.0) mmol/L ABG Hemoglobin 10.7 L (11.7-17.4) g/dL ABG Carboxyhemoglobin 2.0 H (0.5-1.5) % POC ABG HHb (Measured) 0.6 (0.0-5.0) % ABG Methemoglobin 1.0 (0.0-3.0) % Pawel Test Pos A-a O2 Difference 155.0 mm/Hg Respiratory Index 1.1 Hgb O2 Saturation 96.4 (95.0-98.0) % Vent Mode Prvc Mechanical Rate 14 FiO2 50.0 % Tidal Volume 420 PEEP 5 Sodium 146 (132-148) mmol/L Potassium 3.4 L (3.6-5.2) mmol/L Chloride 109 H (98-107) mmol/L Carbon Dioxide 36 H (22-30) mmol/L Anion Gap 4 L (10-20) BUN 40 H (7-17) mg/dL Creatinine 0.7 (0.7-1.2) mg/dL Est GFR ( Amer) > 60 Est GFR (Non-Af Amer) > 60 Random Glucose 115 H D (65-105) mg/dL Calcium 7.9 L (8.6-10.4) mg/dl Phosphorus 2.7 (2.5-4.5) mg/dL Magnesium 2.4 H (1.6-2.3) mg/dL Total Bilirubin 0.8 (0.2-1.3) mg/dL AST 14 (14-36) U/L ALT 15 (9-52) U/L Alkaline Phosphatase 46 (38-126) U/L Total Protein 5.1 L (6.3-8.3) g/dL Albumin 2.4 L (3.5-5.0) g/dL Globulin 2.7 (2.2-3.9) gm/dL Albumin/Globulin Ratio 0.9 L (1.0-2.1) Laboratory Results - last 24 hr 04/02/18 04/02/18 04/02/18 05:14 06:10 06:10 WBC 6.7 RBC 3.50 L Hgb 9.0 L Hct 29.6 L MCV 84.5 MCH 25.7 L MCHC 30.3 L RDW 24.5 H Plt Count 195 MPV 9.5 Neut % (Auto) 73.6 Lymph % (Auto) 15.7 L [place] % (Auto) 8.7 Eos % (Auto) 0.9 Baso % (Auto) 1.1 Neut # (Auto) 4.9 Lymph # (Auto) 1.1 [place] # (Auto) 0.6 Eos # (Auto) 0.1 Baso # (Auto) 0.1 Puncture Site Rr pCO2 50 H pO2 139 H HCO3 33.7 H ABG pH 7.47 H ABG Total CO2 37.9 H ABG O2 Saturation 99.4 H ABG Base Excess 11.2 H ABG Hemoglobin 10.7 L ABG Carboxyhemoglobin 2.0 H POC ABG HHb (Measured) 0.6 ABG Methemoglobin 1.0 Pawel Test Pos A-a O2 Difference 155.0 Respiratory Index 1.1 Hgb O2 Saturation 96.4 Vent Mode Prvc Mechanical Rate 14 FiO2 50.0 Tidal Volume 420 PEEP 5 Sodium 146 Potassium 3.4 L Chloride 109 H Carbon Dioxide 36 H Anion Gap 4 L BUN 40 H Creatinine 0.7 Est GFR ( Amer) > 60 Est GFR (Non-Af Amer) > 60 Random Glucose 115 H D Calcium 7.9 L Phosphorus 2.7 Magnesium 2.4 H Total Bilirubin 0.8 AST 14 ALT 15 Alkaline Phosphatase 46 Total Protein 5.1 L Albumin 2.4 L Globulin 2.7 Albumin/Globulin Ratio 0.9 L Radiology Impressions: Radiology Impressions Joint Effusion US 03/31/18 10:17 IMPRESSION: Chest X-Ray 04/02/18 07:00 IMPRESSION: Redemonstration of layering pleural effusions, larger on the left. Haziness in both lower lobes may represent pulmonary edema or layering effusions. Stable position of support line and tubes. Critical Care Progress Note - Nutrition Nutrition: Nutrition Category Date Time Status NPO Diet [DIET] Diets 03/24/18 Breakfast Active Assessment/Plan - Assessment and Plan (Free Text) Plan: 82 yo female admitted to ICU for sepsis, respiratory distress, and pleural effusion s/p thoracentesis -hypoxic respiratory failure: continue CPAP, extubate today -b/l pleural effusion: s/p thoracentesis -Chronic diastolic heart failure with A-fib: rate controlled: continue NOAC, continue rx as per cardiology -MEL: resolved, avoid nephrotoxic drugs - Sepsis:remains afebrile, will de-escalate abx if no cultures obtained -h/o ortho left houlder dislocation -continue dvt/pud ppx -PAtient tolerated CPAP trials with Fio2 to 40%, will extubate patient as RSBI ~50 - Date & Time Date: 04/02/18 Time: 12:20
--- NOTE | 2018-04-02 11:53 | CP.PCM.PN ---
Subjective - Date & Time of Evaluation Date of Evaluation: 04/02/18 Time of Evaluation: 10:00 - Subjective Subjective: patient seen and examined Tolerating CPAP since morning Response to vocal command Afebrile Status post thoracentesis Objective - Vital Signs/Intake and Output Vital Signs (last 24 hours): Temp Pulse Resp BP Pulse Ox 100 F H 105 H 24 127/93 H 89 L 04/02/18 08:00 04/02/18 11:30 04/02/18 11:30 04/02/18 11:30 04/02/18 11:30 Intake and Output: 04/02/18 04/02/18 06:59 18:59 Intake Total 785 595 Output Total 615 625 Balance 170 -30 - Medications Medications: Current Medications Acetaminophen (Tylenol 325mg Tab) 650 mg PO Q6 PRN PRN Reason: Fever >100.4 F Last Admin: 04/02/18 04:36 Dose: 650 mg Albuterol/Ipratropium (Duoneb 3 Mg/0.5 Mg (3 Ml) Ud) 3 ml INH RQ6 KEV Amiodarone HCl (Cordarone) 200 mg PO DAILY KEV Last Admin: 04/02/18 09:12 Dose: 200 mg Apixaban (Eliquis) 5 mg PO BID KEV Last Admin: 04/02/18 09:13 Dose: 5 mg Ascorbic Acid (Vitamin C 500 Mg Tab) 500 mg PO BID KEV Last Admin: 04/02/18 09:13 Dose: 500 mg Bacitracin (Bacitracin) 0 gm TOP BID KEV Last Admin: 04/02/18 09:12 Dose: 1 applic Furosemide (Lasix) 20 mg IVP DAILY KEV Last Admin: 04/02/18 09:13 Dose: 20 mg Fluconazole (Diflucan Iv 100 Mg/50 Ml Ns) 50 mls @ 100 mls/hr IVPB DAILY KEV; Protocol Last Admin: 04/02/18 09:15 Dose: 100 mls/hr Azithromycin (Zithromax 500mg In Ns Addvantage) 500 mg in 250 mls @ 167 mls/hr IVPB Q24H KEV; Protocol Last Admin: 04/01/18 13:20 Dose: 167 mls/hr Cefepime HCl (Maxipime Iv 1 Gm Premix) 1 gm in 50 mls @ 100 mls/hr IVPB Q12H KEV; Protocol Last Admin: 04/02/18 04:30 Dose: 100 mls/hr Potassium Chloride (Potassium Chloride 20 Meq/100 Ml) 20 meq in 100 mls @ 50 mls/hr IVPB Q2H KEV Stop: 04/02/18 13:29 Last Admin: 04/02/18 11:34 Dose: 50 mls/hr Lactulose (Enulose) 20 gm PO HS PRN PRN Reason: Constipation Last Admin: 03/30/18 19:53 Dose: 20 gm Lorazepam (Ativan) 2 mg IVP Q4H PRN PRN Reason: Anxiety Last Admin: 03/31/18 13:06 Dose: 2 mg Methylprednisolone (Solu-Medrol) 40 mg IVP Q8H [facility] Last Admin: 04/02/18 09:13 Dose: 40 mg Multivitamins/Vitamin C (Multi-Delyn Liquid) 5 ml PO DAILY [facility] Last Admin: 04/02/18 09:53 Dose: 5 ml Nystatin (Nystop Topical Powder) 1 applic TOP BID [facility] Last Admin: 04/02/18 09:14 Dose: 1 applic Pantoprazole Sodium (Protonix Susp) 40 mg PO DAILY [facility] Last Admin: 04/02/18 09:13 Dose: 40 mg Silver Sulfadiazine (Silvadene 1% 20 Gm) 0 ea TOP BID [facility] Last Admin: 04/02/18 09:14 Dose: 1 applic Verapamil HCl (Calan Tab) 40 mg PO Q6H [facility] Last Admin: 04/02/18 09:12 Dose: 40 mg Zinc Sulfate (Zinc Sulfate 220 Mg Cap) 220 mg PO DAILY [facility] Last Admin: 04/02/18 09:13 Dose: 220 mg - Labs Labs: 04/02/18 06:10 04/02/18 06:10 PT 17.6 SECONDS (9.7-12.2) H 03/31/18 06:13 INR 1.6 03/31/18 06:13 APTT 34 SECONDS (21-34) 03/31/18 06:13 - Head Exam Head Exam: ATRAUMATIC, NORMOCEPHALIC - ENT Exam ENT Exam: Mucous Membranes Moist - Neck Exam Neck Exam: Normal Inspection - Respiratory Exam Respiratory Exam: Decreased Breath Sounds - Cardiovascular Exam Cardiovascular Exam: REGULAR RHYTHM - GI/Abdominal Exam GI & Abdominal Exam: Soft, Normal Bowel Sounds - Extremities Exam Extremities Exam: Pedal Edema Assessment and Plan (1) Acute respiratory failure Assessment & Plan: wean to extubate continue antibiotics Chest x-ray noted Hold feeding Status: Acute (2) Atrial fibrillation and flutter Status: Acute (3) CHF (congestive heart failure) Status: Acute (4) Pleural effusion Status: Acute
--- NOTE | 2018-04-02 13:38 | CP.PCM.PN ---
Subjective - Date & Time of Evaluation Date of Evaluation: 04/02/18 Time of Evaluation: 13:36 - Subjective Subjective: pt extubated having oxygen mask on awaKE COMFORTABLE Objective - Vital Signs/Intake and Output Vital Signs (last 24 hours): Temp Pulse Resp BP Pulse Ox 100 F H 105 H 24 127/93 H 89 L 04/02/18 08:00 04/02/18 11:30 04/02/18 11:30 04/02/18 11:30 04/02/18 11:30 Intake and Output: 04/02/18 04/02/18 06:59 18:59 Intake Total 785 595 Output Total 615 625 Balance 170 -30 - Medications Medications: Current Medications Acetaminophen (Tylenol 325mg Tab) 650 mg PO Q6 PRN PRN Reason: Fever >100.4 F Last Admin: 04/02/18 04:36 Dose: 650 mg Albuterol/Ipratropium (Duoneb 3 Mg/0.5 Mg (3 Ml) Ud) 3 ml INH RQ6 [facility] Amiodarone HCl (Cordarone) 200 mg PO DAILY [facility] Last Admin: 04/02/18 09:12 Dose: 200 mg Apixaban (Eliquis) 5 mg PO BID [facility] Last Admin: 04/02/18 09:13 Dose: 5 mg Ascorbic Acid (Vitamin C 500 Mg Tab) 500 mg PO BID [facility] Last Admin: 04/02/18 09:13 Dose: 500 mg Bacitracin (Bacitracin) 0 gm TOP BID [facility] Last Admin: 04/02/18 09:12 Dose: 1 applic Furosemide (Lasix) 20 mg IVP DAILY [facility] Last Admin: 04/02/18 09:13 Dose: 20 mg Fluconazole (Diflucan Iv 100 Mg/50 Ml Ns) 50 mls @ 100 mls/hr IVPB DAILY [facility]; Protocol Last Admin: 04/02/18 09:15 Dose: 100 mls/hr Azithromycin (Zithromax 500mg In Ns Addvantage) 500 mg in 250 mls @ 167 mls/hr IVPB Q24H [facility]; Protocol Last Admin: 04/01/18 13:20 Dose: 167 mls/hr Cefepime HCl (Maxipime Iv 1 Gm Premix) 1 gm in 50 mls @ 100 mls/hr IVPB Q12H [facility]; Protocol Last Admin: 04/02/18 04:30 Dose: 100 mls/hr Lactulose (Enulose) 20 gm PO HS PRN PRN Reason: Constipation Last Admin: 03/30/18 19:53 Dose: 20 gm Methylprednisolone (Solu-Medrol) 40 mg IVP Q8H [facility] Last Admin: 04/02/18 09:13 Dose: 40 mg Multivitamins/Vitamin C (Multi-Delyn Liquid) 5 ml PO DAILY [facility] Last Admin: 04/02/18 09:53 Dose: 5 ml Nystatin (Nystop Topical Powder) 1 applic TOP BID [facility] Last Admin: 04/02/18 09:14 Dose: 1 applic Pantoprazole Sodium (Protonix Susp) 40 mg PO DAILY [facility] Last Admin: 04/02/18 09:13 Dose: 40 mg Silver Sulfadiazine (Silvadene 1% 20 Gm) 0 ea TOP BID [facility] Last Admin: 04/02/18 09:14 Dose: 1 applic Verapamil HCl (Calan Tab) 40 mg PO Q6H [facility] Last Admin: 04/02/18 09:12 Dose: 40 mg Zinc Sulfate (Zinc Sulfate 220 Mg Cap) 220 mg PO DAILY [facility] Last Admin: 04/02/18 09:13 Dose: 220 mg - Labs Labs: 04/02/18 06:10 04/02/18 06:10 PT 17.6 SECONDS (9.7-12.2) H 03/31/18 06:13 INR 1.6 03/31/18 06:13 APTT 34 SECONDS (21-34) 03/31/18 06:13 - Constitutional Appears: Non-toxic - Head Exam Head Exam: NORMAL INSPECTION - Eye Exam Eye Exam: Normal appearance Pupil Exam: NORMAL ACCOMODATION - ENT Exam ENT Exam: Normal Exam - Respiratory Exam Respiratory Exam: Decreased Breath Sounds - Cardiovascular Exam Cardiovascular Exam: REGULAR RHYTHM - GI/Abdominal Exam GI & Abdominal Exam: Normal Bowel Sounds - Extremities Exam Additional comments: CELULITIS OEADEAMA - Neurological Exam Neurological Exam: Awake, Oriented x3 - Psychiatric Exam Psychiatric exam: Normal Affect - Skin Skin Exam: Normal Color Assessment and Plan - Assessment and Plan (Free Text) Assessment: CHF S/P RESPIRATOY FAILIUR S/P THORACOSYNTESIS Plan: COT PER ORDERS
[2018-04-02] MEDS: Azithromycin 500mg/250ML NS 500 MG/250 ML BAG IVPB SCH (14:23)
[2018-04-02] MEDS ORDERED: Alum-Mag Hydrox-Simethicone Susp (30 mL) PO ONE ×2 (15:42→15:47)
--- NOTE | 2018-04-02 17:13 | CP.PCM.PN ---
Subjective - Date & Time of Evaluation Date of Evaluation: 04/02/18 Time of Evaluation: 08:00 - Subjective Subjective: afebrile s/p extubation arousable / confused on BiPaP NAD Objective - Vital Signs/Intake and Output Vital Signs (last 24 hours): Temp Pulse Resp BP Pulse Ox 98.8 F 106 H 27 H 122/90 97 04/02/18 16:00 04/02/18 17:00 04/02/18 17:00 04/02/18 16:29 04/02/18 17:00 Intake and Output: 04/02/18 04/02/18 06:59 18:59 Intake Total 785 990 Output Total 615 1000 Balance 170 -10 - Medications Medications: Current Medications Acetaminophen (Tylenol 325mg Tab) 650 mg PO Q6 PRN PRN Reason: Fever >100.4 F Last Admin: 04/02/18 04:36 Dose: 650 mg Albuterol/Ipratropium (Duoneb 3 Mg/0.5 Mg (3 Ml) Ud) 3 ml INH RQ6 [facility] Amiodarone HCl (Cordarone) 200 mg PO DAILY [facility] Last Admin: 04/02/18 09:12 Dose: 200 mg Apixaban (Eliquis) 5 mg PO BID [facility] Last Admin: 04/02/18 09:13 Dose: 5 mg Ascorbic Acid (Vitamin C 500 Mg Tab) 500 mg PO BID [facility] Last Admin: 04/02/18 09:13 Dose: 500 mg Bacitracin (Bacitracin) 0 gm TOP BID [facility] Last Admin: 04/02/18 09:12 Dose: 1 applic Furosemide (Lasix) 20 mg IVP DAILY [facility] Last Admin: 04/02/18 09:13 Dose: 20 mg Fluconazole (Diflucan Iv 100 Mg/50 Ml Ns) 50 mls @ 100 mls/hr IVPB DAILY [facility]; Protocol Last Admin: 04/02/18 09:15 Dose: 100 mls/hr Azithromycin (Zithromax 500mg In Ns Addvantage) 500 mg in 250 mls @ 167 mls/hr IVPB Q24H [facility]; Protocol Last Admin: 04/02/18 14:23 Dose: 167 mls/hr Cefepime HCl (Maxipime Iv 1 Gm Premix) 1 gm in 50 mls @ 100 mls/hr IVPB Q12H [facility]; Protocol Last Admin: 04/02/18 15:43 Dose: 100 mls/hr Lactulose (Enulose) 20 gm PO HS PRN PRN Reason: Constipation Last Admin: 03/30/18 19:53 Dose: 20 gm Methylprednisolone (Solu-Medrol) 40 mg IVP Q8H [facility] Last Admin: 04/02/18 16:38 Dose: 40 mg Multivitamins/Vitamin C (Multi-Delyn Liquid) 5 ml PO DAILY [facility] Last Admin: 04/02/18 09:53 Dose: 5 ml Nystatin (Nystop Topical Powder) 1 applic TOP BID [facility] Last Admin: 04/02/18 09:14 Dose: 1 applic Pantoprazole Sodium (Protonix Susp) 40 mg PO DAILY [facility] Last Admin: 04/02/18 09:13 Dose: 40 mg Silver Sulfadiazine (Silvadene 1% 20 Gm) 0 ea TOP BID [facility] Last Admin: 04/02/18 09:14 Dose: 1 applic Verapamil HCl (Calan Tab) 40 mg PO Q6H [facility] Last Admin: 04/02/18 14:27 Dose: 40 mg Zinc Sulfate (Zinc Sulfate 220 Mg Cap) 220 mg PO DAILY [facility] Last Admin: 04/02/18 09:13 Dose: 220 mg - Labs Labs: 04/02/18 06:10 04/02/18 06:10 PT 17.6 SECONDS (9.7-12.2) H 03/31/18 06:13 INR 1.6 03/31/18 06:13 APTT 34 SECONDS (21-34) 03/31/18 06:13 - Constitutional Appears: Non-toxic, Chronically Ill - Head Exam Head Exam: NORMOCEPHALIC - Eye Exam Eye Exam: absent: Scleral icterus - ENT Exam ENT Exam: Mucous Membranes Dry - Neck Exam Neck Exam: absent: Lymphadenopathy - Respiratory Exam Respiratory Exam: Decreased Breath Sounds, Prolonged Expiratory Phase, Rhonchi - Cardiovascular Exam Cardiovascular Exam: REGULAR RHYTHM, +S1, +S2 - GI/Abdominal Exam GI & Abdominal Exam: Distended, Soft. absent: Tenderness - Rectal Exam Rectal Exam: Deferred - Exam Exam: NORMAL INSPECTION - Extremities Exam Extremities Exam: absent: Pedal Edema - Back Exam Back Exam: absent: CVA tenderness (L), CVA tenderness (R) - Neurological Exam Neurological Exam: Alert, Awake, CN II-XII Intact. absent: Oriented x3 - Psychiatric Exam Psychiatric exam: Depressed - Skin Skin Exam: Dry Assessment and Plan (1) Acute respiratory failure Status: Acute (2) Atrial fibrillation and flutter Status: Acute (3) CHF (congestive heart failure) Status: Acute (4) Pleural effusion Status: Acute - Assessment and Plan (Free Text) Assessment: cont iv rx for possible UTI await recultures
[2018-04-03] MEDS: MethylPREDNISolone 40 mg Vial IVP SCH ×3 (01:00→17:03)
[2018-04-03] MEDS: Albuterol-Ipratrop 3 mg / 0.5 (3 ml) UD INH SCH ×4 (01:37→19:56)
[2018-04-03] MEDS: Cefepime IV 1 gm in Dextrose 1 GM/50 ML BAG IVPB SCH ×2 (04:20→15:35)
[2018-04-03 05:12] LABS: BASO % 0.5 % (0.0-2.0); HEMOGLOBIN 9.5 g/dL (11.0-16.0); LYMPH # 0.4 K/uL (1.0-4.3); LYMPH % 5.5 % (20.0-40.0); MEAN CELL VOLUME 85.1 fL (81.0-99.0); MEAN CORPUSCULAR HEMOGLOBIN 25.5 pg (27.0-31.0); MEAN PLATELET VOLUME 9.6 fL (7.2-11.7); MONO # 0.3 K/uL (0.0-0.8); NEUT # 5.9 K/uL (1.8-7.0); PLATELET COUNT 230 K/uL (130-400); RBC 3.74 Mil/uL (3.80-5.20); WHITE BLOOD COUNT 6.6 K/uL (4.8-10.8)
[2018-04-03 05:42] LABS: ALBUMIN 2.7 g/dL (3.5-5.0); ALT/SGPT 13 U/L (9-52); AST/SGOT 11 U/L (14-36); BLOOD UREA NITROGEN 43 mg/dL (7-17); CALCIUM 7.7 mg/dl (8.6-10.4); GFR NON-AFRICAN AMERICAN > 60
--- NOTE | 2018-04-03 08:17 | CP.PCM.PN ---
Subjective - Date & Time of Evaluation Date of Evaluation: 04/03/18 Time of Evaluation: 10:28 - Subjective Subjective: Patient awake alert, eating food, speaking in full sentences Objective - Vital Signs/Intake and Output Vital Signs (last 24 hours): Temp Pulse Resp BP Pulse Ox 99.3 F 99 H 25 H 128/95 H 96 04/03/18 04:00 04/03/18 07:00 04/03/18 07:00 04/03/18 04:30 04/03/18 07:00 Intake and Output: 04/03/18 04/03/18 06:59 18:59 Intake Total 255 5 Output Total 545 60 Balance -290 -55 - Medications Medications: Current Medications Acetaminophen (Tylenol 325mg Tab) 650 mg PO Q6 PRN PRN Reason: Fever >100.4 F Last Admin: 04/02/18 04:36 Dose: 650 mg Albuterol/Ipratropium (Duoneb 3 Mg/0.5 Mg (3 Ml) Ud) 3 ml INH RQ6 [facility] Last Admin: 04/03/18 01:37 Dose: 3 ml Amiodarone HCl (Cordarone) 200 mg PO DAILY [facility] Last Admin: 04/02/18 09:12 Dose: 200 mg Apixaban (Eliquis) 5 mg PO BID [facility] Last Admin: 04/02/18 17:10 Dose: 5 mg Ascorbic Acid (Vitamin C 500 Mg Tab) 500 mg PO BID [facility] Last Admin: 04/02/18 17:10 Dose: 500 mg Bacitracin (Bacitracin) 0 gm TOP BID [facility] Last Admin: 04/02/18 17:12 Dose: 1 applic Fluconazole (Diflucan Iv 100 Mg/50 Ml Ns) 50 mls @ 100 mls/hr IVPB DAILY [facility]; Protocol Last Admin: 04/02/18 09:15 Dose: 100 mls/hr Azithromycin (Zithromax 500mg In Ns Addvantage) 500 mg in 250 mls @ 167 mls/hr IVPB Q24H [facility]; Protocol Last Admin: 04/02/18 14:23 Dose: 167 mls/hr Cefepime HCl (Maxipime Iv 1 Gm Premix) 1 gm in 50 mls @ 100 mls/hr IVPB Q12H [facility]; Protocol Last Admin: 04/03/18 04:20 Dose: 100 mls/hr Lactulose (Enulose) 20 gm PO HS PRN PRN Reason: Constipation Last Admin: 04/02/18 17:20 Dose: 20 gm Methylprednisolone (Solu-Medrol) 40 mg IVP Q8H [facility] Last Admin: 04/03/18 01:00 Dose: 40 mg Multivitamins/Vitamin C (Multi-Delyn Liquid) 5 ml PO DAILY [facility] Last Admin: 04/02/18 09:53 Dose: 5 ml Nystatin (Nystop Topical Powder) 1 applic TOP BID [facility] Last Admin: 04/02/18 17:12 Dose: 1 applic Pantoprazole Sodium (Protonix Susp) 40 mg PO DAILY [facility] Last Admin: 04/02/18 09:13 Dose: 40 mg Silver Sulfadiazine (Silvadene 1% 20 Gm) 0 ea TOP BID [facility] Last Admin: 04/02/18 17:11 Dose: 1 applic Verapamil HCl (Calan Tab) 40 mg PO Q6H [facility] Last Admin: 04/03/18 03:00 Dose: 40 mg Zinc Sulfate (Zinc Sulfate 220 Mg Cap) 220 mg PO DAILY [facility] Last Admin: 04/02/18 09:13 Dose: 220 mg - Labs Labs: 04/03/18 05:08 04/03/18 05:08 PT 17.6 SECONDS (9.7-12.2) H 03/31/18 06:13 INR 1.6 03/31/18 06:13 APTT 34 SECONDS (21-34) 03/31/18 06:13 - Head Exam Head Exam: ATRAUMATIC, NORMAL INSPECTION, NORMOCEPHALIC - Neck Exam Neck Exam: Normal Inspection - Respiratory Exam Respiratory Exam: Clear to Ausculation Bilateral, NORMAL BREATHING PATTERN - Cardiovascular Exam Cardiovascular Exam: REGULAR RHYTHM, +S1, +S2, Murmur - GI/Abdominal Exam GI & Abdominal Exam: Soft, Normal Bowel Sounds. absent: Tenderness - Extremities Exam Extremities Exam: Pedal Edema - Neurological Exam Neurological Exam: Alert, Awake, Oriented x3 Assessment and Plan - Assessment and Plan (Free Text) Assessment: 82 yo female admitted to ICU for sepsis, respiratory distress, and pleural effusion s/p thoracentesis -hypoxic respiratory failure: resolved, successfully extubated -b/l pleural effusion: s/p thoracentesis, avoid fluid overloaded -Chronic diastolic heart failure with A-fib: rate controlled: continue NOAC, continue rx as per cardiology -MEL: resolved, avoid nephrotoxic drugs, d/c yusuf - Sepsis:remains afebrile, de-escalate abx if no cultures obtained -h/o ortho left houlder dislocation, PT/OT -continue dvt/pud ppx Patient remains hemodynamically stable
[2018-04-03 08:26] LABS: LYMPHOCYTE 5 % (20-40); MONOCYTE 6 % (0-10); NEUTROPHIL 89 % (50-75); PLATELET ESTIMATE NORMAL (NORMAL); TOTAL CELLS COUNTED 100
[2018-04-03 08:27] LABS: LARGE PLATELETS PRESENT
[2018-04-03 08:28] LABS: HYPOCHROMIC MODERATE; OVALOCYTES SLIGHT; POIKILOCYTOSIS SLIGHT; POLYCHROMIC SLIGHT
[2018-04-03 08:31] LABS: ANISOCYTOSIS MARKED; SCHISTOCYTES SLIGHT
[2018-04-03] MEDS: Bacitracin Ointment 30 GM TUBE TOP SCH ×2 (09:46→17:05)
[2018-04-03] MEDS: Fluconazole IV 100mg/50 ml NS 50 ML IVPB SCH (09:47)
[2018-04-03] MEDS: Multiple Vitamins Oral Solution PO SCH (09:47)
[2018-04-03] MEDS: Pantoprazole 40 mg Susp UD PO SCH (09:48)
[2018-04-03] MEDS: Silver Sulfadiazine 1% Cream (20 gm) TOP SCH ×2 (09:48→17:04)
--- NOTE | 2018-04-03 10:16 | CP.PCM.PN ---
Subjective - Date & Time of Evaluation Date of Evaluation: 04/03/18 Time of Evaluation: 10:13 - Subjective Subjective: pt awake talking eating no ac distress Objective - Vital Signs/Intake and Output Vital Signs (last 24 hours): Temp Pulse Resp BP Pulse Ox 98.3 F 96 H 18 133/97 H 93 L 04/03/18 08:00 04/03/18 08:00 04/03/18 08:00 04/03/18 07:47 04/03/18 08:00 Intake and Output: 04/03/18 04/03/18 06:59 18:59 Intake Total 255 5 Output Total 545 60 Balance -290 -55 - Medications Medications: Current Medications Acetaminophen (Tylenol 325mg Tab) 650 mg PO Q6 PRN PRN Reason: Fever >100.4 F Last Admin: 04/02/18 04:36 Dose: 650 mg Albuterol/Ipratropium (Duoneb 3 Mg/0.5 Mg (3 Ml) Ud) 3 ml INH RQ6 [facility] Last Admin: 04/03/18 07:10 Dose: 3 ml Amiodarone HCl (Cordarone) 200 mg PO DAILY [facility] Last Admin: 04/03/18 09:47 Dose: 200 mg Apixaban (Eliquis) 5 mg PO BID [facility] Last Admin: 04/03/18 09:47 Dose: 5 mg Ascorbic Acid (Vitamin C 500 Mg Tab) 500 mg PO BID [facility] Last Admin: 04/03/18 09:48 Dose: 500 mg Bacitracin (Bacitracin) 0 gm TOP BID [facility] Last Admin: 04/03/18 09:46 Dose: 1 applic Fluconazole (Diflucan Iv 100 Mg/50 Ml Ns) 50 mls @ 100 mls/hr IVPB DAILY [facility]; Protocol Last Admin: 04/03/18 09:47 Dose: 100 mls/hr Azithromycin (Zithromax 500mg In Ns Addvantage) 500 mg in 250 mls @ 167 mls/hr IVPB Q24H [facility]; Protocol Last Admin: 04/02/18 14:23 Dose: 167 mls/hr Cefepime HCl (Maxipime Iv 1 Gm Premix) 1 gm in 50 mls @ 100 mls/hr IVPB Q12H [facility]; Protocol Last Admin: 04/03/18 04:20 Dose: 100 mls/hr Lactulose (Enulose) 20 gm PO HS PRN PRN Reason: Constipation Last Admin: 04/02/18 17:20 Dose: 20 gm Methylprednisolone (Solu-Medrol) 40 mg IVP Q8H [facility] Last Admin: 04/03/18 09:48 Dose: 40 mg Multivitamins/Vitamin C (Multi-Delyn Liquid) 5 ml PO DAILY [facility] Last Admin: 04/03/18 09:47 Dose: 5 ml Nystatin (Nystop Topical Powder) 1 applic TOP BID [facility] Last Admin: 04/03/18 09:48 Dose: 1 applic Pantoprazole Sodium (Protonix Susp) 40 mg PO DAILY [facility] Last Admin: 04/03/18 09:48 Dose: 40 mg Silver Sulfadiazine (Silvadene 1% 20 Gm) 0 ea TOP BID [facility] Last Admin: 04/03/18 09:48 Dose: 1 applic Verapamil HCl (Calan Tab) 40 mg PO Q6H [facility] Last Admin: 04/03/18 09:46 Dose: 40 mg Zinc Sulfate (Zinc Sulfate 220 Mg Cap) 220 mg PO DAILY [facility] Last Admin: 04/03/18 09:49 Dose: 220 mg - Labs Labs: 04/03/18 05:08 04/03/18 05:08 PT 17.6 SECONDS (9.7-12.2) H 03/31/18 06:13 INR 1.6 03/31/18 06:13 APTT 34 SECONDS (21-34) 03/31/18 06:13 - Constitutional Appears: Non-toxic - Head Exam Head Exam: NORMAL INSPECTION - Eye Exam Eye Exam: Normal appearance - ENT Exam ENT Exam: Normal Exam - Neck Exam Neck Exam: Full ROM - Respiratory Exam Respiratory Exam: Decreased Breath Sounds - Cardiovascular Exam Cardiovascular Exam: REGULAR RHYTHM - GI/Abdominal Exam GI & Abdominal Exam: Normal Bowel Sounds - Neurological Exam Neurological Exam: Awake, Oriented x3 - Psychiatric Exam Psychiatric exam: Normal Affect - Skin Skin Exam: Pallor Assessment and Plan - Assessment and Plan (Free Text) Assessment: chf s/p resp failiur celulitis legs improving obesity dementia confined to bed Plan: cont as per orders
--- NOTE | 2018-04-03 11:50 | CP.PCM.PN ---
Subjective - Date & Time of Evaluation Date of Evaluation: 04/03/18 Time of Evaluation: 11:48 - Subjective Subjective: Podiatry Progress Note- Dr. Shah 82 y/o female seen and evaluated at bedside with attending Dr. Shah for RLE wounds. Patient doing much better today and able to converse. Pt's daughter is at bedside at time of visit. Per daughter, no acute events overnight and no F/C/N/V/CP/SOB Objective - Vital Signs/Intake and Output Vital Signs (last 24 hours): Temp Pulse Resp BP Pulse Ox 98.3 F 103 H 28 H 123/81 92 L 04/03/18 08:00 04/03/18 11:00 04/03/18 11:00 04/03/18 10:30 04/03/18 11:00 Intake and Output: 04/03/18 04/03/18 06:59 18:59 Intake Total 255 295 Output Total 545 160 Balance -290 135 - Medications Medications: Current Medications Acetaminophen (Tylenol 325mg Tab) 650 mg PO Q6 PRN PRN Reason: Fever >100.4 F Last Admin: 04/02/18 04:36 Dose: 650 mg Albuterol/Ipratropium (Duoneb 3 Mg/0.5 Mg (3 Ml) Ud) 3 ml INH RQ6 [facility] Last Admin: 04/03/18 07:10 Dose: 3 ml Amiodarone HCl (Cordarone) 200 mg PO DAILY [facility] Last Admin: 04/03/18 09:47 Dose: 200 mg Apixaban (Eliquis) 5 mg PO BID [facility] Last Admin: 04/03/18 09:47 Dose: 5 mg Ascorbic Acid (Vitamin C 500 Mg Tab) 500 mg PO BID [facility] Last Admin: 04/03/18 09:48 Dose: 500 mg Bacitracin (Bacitracin) 0 gm TOP BID [facility] Last Admin: 04/03/18 09:46 Dose: 1 applic Fluconazole (Diflucan Iv 100 Mg/50 Ml Ns) 50 mls @ 100 mls/hr IVPB DAILY [facility]; Protocol Last Admin: 04/03/18 09:47 Dose: 100 mls/hr Azithromycin (Zithromax 500mg In Ns Addvantage) 500 mg in 250 mls @ 167 mls/hr IVPB Q24H [facility]; Protocol Last Admin: 04/02/18 14:23 Dose: 167 mls/hr Cefepime HCl (Maxipime Iv 1 Gm Premix) 1 gm in 50 mls @ 100 mls/hr IVPB Q12H [facility]; Protocol Last Admin: 04/03/18 04:20 Dose: 100 mls/hr Lactulose (Enulose) 20 gm PO HS PRN PRN Reason: Constipation Last Admin: 04/02/18 17:20 Dose: 20 gm Methylprednisolone (Solu-Medrol) 40 mg IVP Q8H [facility] Last Admin: 04/03/18 09:48 Dose: 40 mg Multivitamins/Vitamin C (Multi-Delyn Liquid) 5 ml PO DAILY [facility] Last Admin: 04/03/18 09:47 Dose: 5 ml Nystatin (Nystop Topical Powder) 1 applic TOP BID [facility] Last Admin: 04/03/18 09:48 Dose: 1 applic Pantoprazole Sodium (Protonix Susp) 40 mg PO DAILY [facility] Last Admin: 04/03/18 09:48 Dose: 40 mg Silver Sulfadiazine (Silvadene 1% 20 Gm) 0 ea TOP BID [facility] Last Admin: 04/03/18 09:48 Dose: 1 applic Verapamil HCl (Calan Tab) 40 mg PO Q6H [facility] Last Admin: 04/03/18 09:46 Dose: 40 mg Zinc Sulfate (Zinc Sulfate 220 Mg Cap) 220 mg PO DAILY [facility] Last Admin: 04/03/18 09:49 Dose: 220 mg - Labs Labs: 04/03/18 05:08 04/03/18 05:08 PT 17.6 SECONDS (9.7-12.2) H 03/31/18 06:13 INR 1.6 03/31/18 06:13 APTT 34 SECONDS (21-34) 03/31/18 06:13 - Constitutional Appears: Well, Non-toxic, No Acute Distress - Head Exam Head Exam: ATRAUMATIC, NORMOCEPHALIC - Extremities Exam Additional comments: Lower extremity focused exam: VASC: Pulses are palpable B/L. Temp gradient cool to cool from proximal to distal. CFT <3 secs x 10. No pedal edema present. DERM: dry, flaky, hyperkeratotic skin noted to bilateral LE distal to the knee joint. No open lesions present. improving Unstageable decubitus pressure ulceration noted to right plantar posterior heel. NEURO: Gross sensation intact B/L ORTHO: No tenderness to palpation noted to lower extremity B/L - Neurological Exam Neurological Exam: Alert, Awake, Oriented x3 - Psychiatric Exam Psychiatric exam: Normal Affect, Normal Mood Assessment and Plan - Assessment and Plan (Free Text) Assessment: 82 y/o with right foot decubitus heel ulceration, stable Plan: Patient seen and evaluated with Dr. Shah No leukocytosis, afebrile Wound cleansed, dressed with ABD, DSD Right heel wound stable, will continue to monitor Continue multipodus boots at all times in bed Podiatry will continue to follow
[2018-04-03] MEDS: Azithromycin 500mg/250ML NS 500 MG/250 ML BAG IVPB SCH (15:13)
[2018-04-04] MEDS: MethylPREDNISolone 40 mg Vial IVP SCH ×3 (00:23→18:02)
[2018-04-04] MEDS: Albuterol-Ipratrop 3 mg / 0.5 (3 ml) UD INH SCH ×3 (01:18→19:27)
[2018-04-04] MEDS: Cefepime IV 1 gm in Dextrose 1 GM/50 ML BAG IVPB SCH ×3 (04:21→15:30)
[2018-04-04 06:23] LABS: GLUCOSE PLEURAL FLUID 141 mg/dL; LDH PLEURAL FLUID 178 U/L; TOTAL PROTEIN PLEURAL FLUID <3.0 g/dL
[2018-04-04 06:46] LABS: BASO % 0.1 % (0.0-2.0); HEMOGLOBIN 9.1 g/dL (11.0-16.0); LYMPH # 0.3 K/uL (1.0-4.3); LYMPH % 4.3 % (20.0-40.0); MEAN CELL VOLUME 84.9 fL (81.0-99.0); MEAN CORPUSCULAR HEMOGLOBIN 26.2 pg (27.0-31.0); MEAN CORPUSCULAR HGB CONC 30.8 g/dL (33.0-37.0); MEAN PLATELET VOLUME 9.6 fL (7.2-11.7); MONO # 0.4 K/uL (0.0-0.8); NEUT # 6.6 K/uL (1.8-7.0); NEUT % 90.6 % (50.0-75.0); NRBC % 0.2 % (0.0-2.0); PLATELET COUNT 224 K/uL (130-400); RBC 3.48 Mil/uL (3.80-5.20); RED CELL DISTRIBUTION WIDTH 24.9 % (11.5-14.5); WHITE BLOOD COUNT 7.3 K/uL (4.8-10.8)
[2018-04-04 06:55] LABS: ALB/GLOB RATIO 0.9 (1.0-2.1); ALBUMIN 2.5 g/dL (3.5-5.0); ALT/SGPT 17 U/L (9-52); AST/SGOT 11 U/L (14-36); BLOOD UREA NITROGEN 55 mg/dL (7-17); CALCIUM 8.3 mg/dl (8.6-10.4); GFR NON-AFRICAN AMERICAN > 60
[2018-04-04 08:38] LABS: BANDS 1 % (0-2); LYMPHOCYTE 4 % (20-40); MONOCYTE 5 % (0-10); NEUTROPHIL 90 % (50-75); PLATELET ESTIMATE NORMAL (NORMAL); TOTAL CELLS COUNTED 100
[2018-04-04 08:39] LABS: ANISOCYTOSIS MARKED; HYPOCHROMIC MODERATE; POIKILOCYTOSIS SLIGHT; POLYCHROMIC SLIGHT
[2018-04-04 08:40] LABS: LARGE PLATELETS PRESENT; OVALOCYTES SLIGHT
[2018-04-04 08:41] LABS: SCHISTOCYTES MODERATE
--- NOTE | 2018-04-04 10:11 | CP.PCM.PN ---
Subjective - Date & Time of Evaluation Date of Evaluation: 04/04/18 Time of Evaluation: 10:08 - Subjective Subjective: Patient awake alert in NAD, tolerating oral diet Objective - Vital Signs/Intake and Output Vital Signs (last 24 hours): Temp Pulse Resp BP Pulse Ox 98.6 F 89 23 106/73 87 L 04/04/18 08:00 04/04/18 09:00 04/04/18 09:00 04/04/18 08:30 04/04/18 09:00 Intake and Output: 04/04/18 04/04/18 06:59 18:59 Intake Total 200 360 Output Total 500 100 Balance -300 260 - Medications Medications: Current Medications Acetaminophen (Tylenol 325mg Tab) 650 mg PO Q6 PRN PRN Reason: Fever >100.4 F Last Admin: 04/02/18 04:36 Dose: 650 mg Albuterol/Ipratropium (Duoneb 3 Mg/0.5 Mg (3 Ml) Ud) 3 ml INH RQ6 [facility] Last Admin: 04/04/18 07:10 Dose: 3 ml Amiodarone HCl (Cordarone) 200 mg PO DAILY [facility] Last Admin: 04/03/18 09:47 Dose: 200 mg Apixaban (Eliquis) 5 mg PO BID [facility] Last Admin: 04/03/18 17:03 Dose: 5 mg Ascorbic Acid (Vitamin C 500 Mg Tab) 500 mg PO BID [facility] Last Admin: 04/03/18 17:03 Dose: 500 mg Bacitracin (Bacitracin) 0 gm TOP BID [facility] Last Admin: 04/03/18 17:05 Dose: 1 applic Fluconazole (Diflucan Iv 100 Mg/50 Ml Ns) 50 mls @ 100 mls/hr IVPB DAILY [facility]; Protocol Last Admin: 04/03/18 09:47 Dose: 100 mls/hr Azithromycin (Zithromax 500mg In Ns Addvantage) 500 mg in 250 mls @ 167 mls/hr IVPB Q24H [facility]; Protocol Last Admin: 04/03/18 15:13 Dose: 167 mls/hr Cefepime HCl (Maxipime Iv 1 Gm Premix) 1 gm in 50 mls @ 100 mls/hr IVPB Q12H [facility]; Protocol Last Admin: 04/04/18 04:21 Dose: 100 mls/hr Lactulose (Enulose) 20 gm PO HS PRN PRN Reason: Constipation Last Admin: 04/02/18 17:20 Dose: 20 gm Methylprednisolone (Solu-Medrol) 40 mg IVP Q8H [facility] Last Admin: 04/04/18 00:23 Dose: 40 mg Multivitamins/Vitamin C (Multi-Delyn Liquid) 5 ml PO DAILY [facility] Last Admin: 04/03/18 09:47 Dose: 5 ml Nystatin (Nystop Topical Powder) 1 applic TOP BID [facility] Last Admin: 04/03/18 17:04 Dose: 1 applic Pantoprazole Sodium (Protonix Susp) 40 mg PO DAILY [facility] Last Admin: 04/03/18 09:48 Dose: 40 mg Silver Sulfadiazine (Silvadene 1% 20 Gm) 0 ea TOP BID [facility] Last Admin: 04/03/18 17:04 Dose: 1 applic Verapamil HCl (Calan Tab) 40 mg PO Q6H [facility] Last Admin: 04/04/18 02:26 Dose: 40 mg Zinc Sulfate (Zinc Sulfate 220 Mg Cap) 220 mg PO DAILY [facility] Last Admin: 04/03/18 09:49 Dose: 220 mg - Labs Labs: 04/04/18 06:37 04/04/18 06:37 PT 17.6 SECONDS (9.7-12.2) H 03/31/18 06:13 INR 1.6 03/31/18 06:13 APTT 34 SECONDS (21-34) 03/31/18 06:13 Assessment and Plan - Assessment and Plan (Free Text) Assessment: 82 yo female admitted to ICU for sepsis, respiratory distress, and pleural effusion s/p thoracentesis -hypoxic respiratory failure: resolved, successfully extubated -b/l pleural effusion: avoid fluid overloaded, pulmonary for repeat thor acentesis -Chronic diastolic heart failure with A-fib: rate controlled: continue NOAC, continue rx as per cardiology -MEL: resolved, avoid nephrotoxic drugs, d/c yusuf - Sepsis:remains afebrile, de-escalate abx if no cultures obtained -h/o ortho left houlder dislocation, PT/OT -continue dvt/pud ppx Patient remains hemodynamically stable. Repeat CXR reveals reaccumulation of pleural effusion.
[2018-04-04] MEDS: Bacitracin Ointment 30 GM TUBE TOP SCH ×2 (10:15→18:00)
[2018-04-04] MEDS: Fluconazole IV 100mg/50 ml NS 50 ML IVPB SCH (11:00)
--- NOTE | 2018-04-04 11:03 | RAD ---
Date of service: 04/04/2018 HISTORY: hypoxia COMPARISON: 04/02/2018 FINDINGS: The left IJV line terminates in the SVC. LUNGS: There is interval worsening of right lower lobe consolidation. There is severe pulmonary venous congestion. There is also airspace disease in the perihilar regions. PLEURA: Moderate pleural effusions, larger on the left. No pneumothorax. CARDIOVASCULAR: The cardiomediastinal silhouette is stable. OSSEOUS STRUCTURES: Within normal limits for the patient's age. VISUALIZED UPPER ABDOMEN: Normal. OTHER FINDINGS: None. IMPRESSION: Worsening moderate pleural effusions, larger on the left. Interval worsening right lower lobe consolidation. Suspect bilateral pulmonary edema.
[2018-04-04] MEDS: Silver Sulfadiazine 1% Cream (20 gm) TOP SCH ×2 (11:10→18:01)
[2018-04-04] MEDS: Multiple Vitamins Oral Solution PO SCH (11:11)
[2018-04-04] MEDS: Pantoprazole 40 mg Susp UD PO SCH (11:14)
--- NOTE | 2018-04-04 11:31 | CP.PCM.PN ---
Subjective - Date & Time of Evaluation Date of Evaluation: 04/04/18 Time of Evaluation: 11:35 - Subjective Subjective: patient seen and examined Patient extubated and on Ventimask Saturating in the upper 80s Continue antibiotics May need left-sided thoracentesis Objective - Vital Signs/Intake and Output Vital Signs (last 24 hours): Temp Pulse Resp BP Pulse Ox 98.6 F 89 23 106/73 87 L 04/04/18 08:00 04/04/18 09:00 04/04/18 09:00 04/04/18 08:30 04/04/18 09:00 Intake and Output: 04/04/18 04/04/18 06:59 18:59 Intake Total 200 360 Output Total 500 100 Balance -300 260 - Medications Medications: Current Medications Acetaminophen (Tylenol 325mg Tab) 650 mg PO Q6 PRN PRN Reason: Fever >100.4 F Last Admin: 04/02/18 04:36 Dose: 650 mg Albuterol/Ipratropium (Duoneb 3 Mg/0.5 Mg (3 Ml) Ud) 3 ml INH RQ6 [facility] Last Admin: 04/04/18 07:10 Dose: 3 ml Amiodarone HCl (Cordarone) 200 mg PO DAILY [facility] Last Admin: 04/04/18 11:21 Dose: Not Given Apixaban (Eliquis) 5 mg PO BID [facility] Last Admin: 04/04/18 11:10 Dose: 5 mg Ascorbic Acid (Vitamin C 500 Mg Tab) 500 mg PO BID [facility] Last Admin: 04/04/18 10:35 Dose: 500 mg Bacitracin (Bacitracin) 0 gm TOP BID [facility] Last Admin: 04/04/18 10:15 Dose: 1 applic Fluconazole (Diflucan Iv 100 Mg/50 Ml Ns) 50 mls @ 100 mls/hr IVPB DAILY [facility]; Protocol Last Admin: 04/04/18 11:00 Dose: 100 mls/hr Azithromycin (Zithromax 500mg In Ns Addvantage) 500 mg in 250 mls @ 167 mls/hr IVPB Q24H [facility]; Protocol Last Admin: 04/03/18 15:13 Dose: 167 mls/hr Cefepime HCl (Maxipime Iv 1 Gm Premix) 1 gm in 50 mls @ 100 mls/hr IVPB Q12H [facility]; Protocol Last Admin: 04/04/18 04:21 Dose: 100 mls/hr Lactulose (Enulose) 20 gm PO HS PRN PRN Reason: Constipation Last Admin: 04/02/18 17:20 Dose: 20 gm Methylprednisolone (Solu-Medrol) 40 mg IVP Q8H [facility] Last Admin: 04/04/18 09:30 Dose: 40 mg Multivitamins/Vitamin C (Multi-Delyn Liquid) 5 ml PO DAILY [facility] Last Admin: 04/04/18 11:11 Dose: 5 ml Nystatin (Nystop Topical Powder) 1 applic TOP BID [facility] Last Admin: 04/04/18 11:17 Dose: Not Given Pantoprazole Sodium (Protonix Susp) 40 mg PO DAILY [facility] Last Admin: 04/04/18 11:14 Dose: 40 mg Silver Sulfadiazine (Silvadene 1% 20 Gm) 0 ea TOP BID [facility] Last Admin: 04/04/18 11:10 Dose: Not Given Verapamil HCl (Calan Tab) 40 mg PO Q6H [facility] Last Admin: 04/04/18 09:40 Dose: 40 mg Zinc Sulfate (Zinc Sulfate 220 Mg Cap) 220 mg PO DAILY [facility] Last Admin: 04/04/18 11:09 Dose: 220 mg - Labs Labs: 04/04/18 06:37 04/04/18 06:37 PT 17.6 SECONDS (9.7-12.2) H 03/31/18 06:13 INR 1.6 03/31/18 06:13 APTT 34 SECONDS (21-34) 03/31/18 06:13 Assessment and Plan (1) Acute respiratory failure Status: Acute (2) Atrial fibrillation and flutter Status: Acute (3) CHF (congestive heart failure) Status: Acute (4) Pleural effusion Status: Acute
--- NOTE | 2018-04-04 13:12 | CP.PCM.PN ---
Subjective - Date & Time of Evaluation Date of Evaluation: 04/04/18 Time of Evaluation: 13:09 - Subjective Subjective: pt oob today breathing beter vss Objective - Vital Signs/Intake and Output Vital Signs (last 24 hours): Temp Pulse Resp BP Pulse Ox 98.6 F 89 23 106/73 87 L 04/04/18 08:00 04/04/18 12:34 04/04/18 09:00 04/04/18 08:30 04/04/18 09:00 Intake and Output: 04/04/18 04/04/18 06:59 18:59 Intake Total 200 360 Output Total 500 100 Balance -300 260 - Medications Medications: Current Medications Acetaminophen (Tylenol 325mg Tab) 650 mg PO Q6 PRN PRN Reason: Fever >100.4 F Last Admin: 04/02/18 04:36 Dose: 650 mg Albuterol/Ipratropium (Duoneb 3 Mg/0.5 Mg (3 Ml) Ud) 3 ml INH RQ6 [facility] Last Admin: 04/04/18 07:10 Dose: 3 ml Amiodarone HCl (Cordarone) 200 mg PO DAILY [facility] Last Admin: 04/04/18 11:21 Dose: Not Given Apixaban (Eliquis) 5 mg PO BID [facility] Last Admin: 04/04/18 11:10 Dose: 5 mg Ascorbic Acid (Vitamin C 500 Mg Tab) 500 mg PO BID [facility] Last Admin: 04/04/18 10:35 Dose: 500 mg Bacitracin (Bacitracin) 0 gm TOP BID [facility] Last Admin: 04/04/18 10:15 Dose: 1 applic Fluconazole (Diflucan Iv 100 Mg/50 Ml Ns) 50 mls @ 100 mls/hr IVPB DAILY [facility]; Protocol Last Admin: 04/04/18 11:00 Dose: 100 mls/hr Azithromycin (Zithromax 500mg In Ns Addvantage) 500 mg in 250 mls @ 167 mls/hr IVPB Q24H [facility]; Protocol Last Admin: 04/03/18 15:13 Dose: 167 mls/hr Cefepime HCl (Maxipime Iv 1 Gm Premix) 1 gm in 50 mls @ 100 mls/hr IVPB Q12H [facility]; Protocol Last Admin: 04/04/18 04:21 Dose: 100 mls/hr Lactulose (Enulose) 20 gm PO HS PRN PRN Reason: Constipation Last Admin: 04/02/18 17:20 Dose: 20 gm Methylprednisolone (Solu-Medrol) 40 mg IVP Q8H [facility] Last Admin: 04/04/18 09:30 Dose: 40 mg Multivitamins/Vitamin C (Multi-Delyn Liquid) 5 ml PO DAILY [facility] Last Admin: 04/04/18 11:11 Dose: 5 ml Nystatin (Nystop Topical Powder) 1 applic TOP BID [facility] Last Admin: 04/04/18 11:17 Dose: Not Given Pantoprazole Sodium (Protonix Susp) 40 mg PO DAILY [facility] Last Admin: 04/04/18 11:14 Dose: 40 mg Silver Sulfadiazine (Silvadene 1% 20 Gm) 0 ea TOP BID [facility] Last Admin: 04/04/18 11:10 Dose: Not Given Verapamil HCl (Calan Tab) 40 mg PO Q6H [facility] Last Admin: 04/04/18 09:40 Dose: 40 mg Zinc Sulfate (Zinc Sulfate 220 Mg Cap) 220 mg PO DAILY [facility] Last Admin: 04/04/18 11:09 Dose: 220 mg - Labs Labs: 04/04/18 06:37 04/04/18 06:37 PT 17.6 SECONDS (9.7-12.2) H 03/31/18 06:13 INR 1.6 03/31/18 06:13 APTT 34 SECONDS (21-34) 03/31/18 06:13 - Constitutional Appears: Non-toxic - Head Exam Head Exam: NORMAL INSPECTION - Eye Exam Eye Exam: Normal appearance Pupil Exam: NORMAL ACCOMODATION - ENT Exam ENT Exam: Normal Exam - Neck Exam Neck Exam: Full ROM, Normal Inspection - Respiratory Exam Respiratory Exam: Decreased Breath Sounds - GI/Abdominal Exam GI & Abdominal Exam: Normal Bowel Sounds - Back Exam Back Exam: NORMAL INSPECTION - Neurological Exam Neurological Exam: Awake, Oriented x3 - Psychiatric Exam Psychiatric exam: Normal Mood - Skin Skin Exam: Normal Color, Pallor Assessment and Plan - Assessment and Plan (Free Text) Assessment: chf generalised weekness dermatitis feet s/p resp failiur Plan: cont as per orders
[2018-04-04] MEDS: Azithromycin 500mg/250ML NS 500 MG/250 ML BAG IVPB SCH (15:00)
--- NOTE | 2018-04-04 15:11 | CP.PCM.PN ---
Subjective - Date & Time of Evaluation Date of Evaluation: 04/04/18 Time of Evaluation: 07:00 - Subjective Subjective: Patient extubated and on Ventimask Saturating in the upper 80s Continue antibiotics May need left-sided thoracentesis Objective - Vital Signs/Intake and Output Vital Signs (last 24 hours): Temp Pulse Resp BP Pulse Ox 98.4 F 101 H 22 118/88 90 L 04/04/18 12:00 04/04/18 14:00 04/04/18 14:00 04/04/18 10:30 04/04/18 14:00 Intake and Output: 04/04/18 04/04/18 06:59 18:59 Intake Total 200 1360 Output Total 500 500 Balance -300 860 - Medications Medications: Current Medications Acetaminophen (Tylenol 325mg Tab) 650 mg PO Q6 PRN PRN Reason: Fever >100.4 F Last Admin: 04/02/18 04:36 Dose: 650 mg Albuterol/Ipratropium (Duoneb 3 Mg/0.5 Mg (3 Ml) Ud) 3 ml INH RQ6 [facility] Last Admin: 04/04/18 07:10 Dose: 3 ml Amiodarone HCl (Cordarone) 200 mg PO DAILY [facility] Last Admin: 04/04/18 11:21 Dose: Not Given Apixaban (Eliquis) 5 mg PO BID [facility] Last Admin: 04/04/18 11:10 Dose: 5 mg Ascorbic Acid (Vitamin C 500 Mg Tab) 500 mg PO BID [facility] Last Admin: 04/04/18 10:35 Dose: 500 mg Bacitracin (Bacitracin) 0 gm TOP BID [facility] Last Admin: 04/04/18 10:15 Dose: 1 applic Fluconazole (Diflucan Iv 100 Mg/50 Ml Ns) 50 mls @ 100 mls/hr IVPB DAILY [facility]; Protocol Last Admin: 04/04/18 11:00 Dose: 100 mls/hr Azithromycin (Zithromax 500mg In Ns Addvantage) 500 mg in 250 mls @ 167 mls/hr IVPB Q24H [facility]; Protocol Last Admin: 04/03/18 15:13 Dose: 167 mls/hr Cefepime HCl (Maxipime Iv 1 Gm Premix) 1 gm in 50 mls @ 100 mls/hr IVPB Q12H [facility]; Protocol Last Admin: 04/04/18 04:21 Dose: 100 mls/hr Lactulose (Enulose) 20 gm PO HS PRN PRN Reason: Constipation Last Admin: 04/02/18 17:20 Dose: 20 gm Methylprednisolone (Solu-Medrol) 40 mg IVP Q8H [facility] Last Admin: 04/04/18 09:30 Dose: 40 mg Multivitamins/Vitamin C (Multi-Delyn Liquid) 5 ml PO DAILY [facility] Last Admin: 04/04/18 11:11 Dose: 5 ml Nystatin (Nystop Topical Powder) 1 applic TOP BID [facility] Last Admin: 04/04/18 11:17 Dose: Not Given Pantoprazole Sodium (Protonix Susp) 40 mg PO DAILY [facility] Last Admin: 04/04/18 11:14 Dose: 40 mg Silver Sulfadiazine (Silvadene 1% 20 Gm) 0 ea TOP BID [facility] Last Admin: 04/04/18 11:10 Dose: Not Given Verapamil HCl (Calan Tab) 40 mg PO Q6H [facility] Last Admin: 04/04/18 09:40 Dose: 40 mg Zinc Sulfate (Zinc Sulfate 220 Mg Cap) 220 mg PO DAILY [facility] Last Admin: 04/04/18 11:09 Dose: 220 mg - Labs Labs: 04/04/18 06:37 04/04/18 06:37 PT 17.6 SECONDS (9.7-12.2) H 03/31/18 06:13 INR 1.6 03/31/18 06:13 APTT 34 SECONDS (21-34) 03/31/18 06:13 - Constitutional Appears: Non-toxic, Chronically Ill - Head Exam Head Exam: NORMOCEPHALIC - Eye Exam Eye Exam: absent: Scleral icterus - ENT Exam ENT Exam: Mucous Membranes Dry - Neck Exam Neck Exam: absent: Lymphadenopathy - Respiratory Exam Respiratory Exam: Decreased Breath Sounds - Cardiovascular Exam Cardiovascular Exam: REGULAR RHYTHM - GI/Abdominal Exam GI & Abdominal Exam: Distended, Soft - Rectal Exam Rectal Exam: Deferred - Exam Exam: NORMAL INSPECTION - Extremities Exam Extremities Exam: absent: Pedal Edema - Back Exam Back Exam: absent: CVA tenderness (L), CVA tenderness (R) - Neurological Exam Neurological Exam: Altered, CN II-XII Intact Assessment and Plan (1) Acute respiratory failure Status: Acute (2) Atrial fibrillation and flutter Status: Acute (3) CHF (congestive heart failure) Status: Acute (4) Pleural effusion Status: Acute - Assessment and Plan (Free Text) Assessment: Patient extubated and on Ventimask Saturating in the upper 80s Continue antibiotics May need left-sided thoracentesis
[2018-04-05] MEDS: MethylPREDNISolone 40 mg Vial IVP SCH ×3 (00:38→17:46)
[2018-04-05] MEDS: Albuterol-Ipratrop 3 mg / 0.5 (3 ml) UD INH SCH ×4 (01:10→19:03)
[2018-04-05] MEDS: Cefepime IV 1 gm in Dextrose 1 GM/50 ML BAG IVPB SCH ×2 (03:45→18:46)
[2018-04-05 08:37] LABS: BASO % 0.1 % (0.0-2.0); HEMOGLOBIN 9.9 g/dL (11.0-16.0); LYMPH # 0.5 K/uL (1.0-4.3); MEAN CELL VOLUME 85.2 fL (81.0-99.0); MEAN CORPUSCULAR HEMOGLOBIN 26.2 pg (27.0-31.0); MEAN CORPUSCULAR HGB CONC 30.7 g/dL (33.0-37.0); MEAN PLATELET VOLUME 9.7 fL (7.2-11.7); MONO # 0.4 K/uL (0.0-0.8); NEUT # 7.3 K/uL (1.8-7.0); NEUT % 88.9 % (50.0-75.0); NRBC % 0.3 % (0.0-2.0); PLATELET COUNT 242 K/uL (130-400); RBC 3.79 Mil/uL (3.80-5.20); RED CELL DISTRIBUTION WIDTH 24.9 % (11.5-14.5); WHITE BLOOD COUNT 8.2 K/uL (4.8-10.8)
[2018-04-05 08:53] LABS: ALB/GLOB RATIO 1.1 (1.0-2.1); ALBUMIN 2.8 g/dL (3.5-5.0); ALT/SGPT 16 U/L (9-52); AST/SGOT 23 U/L (14-36); BLOOD UREA NITROGEN 60 mg/dL (7-17); CALCIUM 8.6 mg/dl (8.6-10.4); GFR NON-AFRICAN AMERICAN > 60
[2018-04-05 09:20] LABS: LYMPHOCYTE 4 % (20-40); MONOCYTE 2 % (0-10); NEUTROPHIL 94 % (50-75); TOTAL CELLS COUNTED 100
[2018-04-05 09:21] LABS: HYPOCHROMIC SLIGHT; PLATELET ESTIMATE NORMAL (NORMAL); POLYCHROMIC SLIGHT
[2018-04-05 09:22] LABS: ANISOCYTOSIS MODERATE; MICROCYTOSIS SLIGHT; OVALOCYTES SLIGHT
[2018-04-05] MEDS: Multiple Vitamins Oral Solution PO SCH (09:40)
[2018-04-05] MEDS: Pantoprazole 40 mg Susp UD PO SCH (09:40)
[2018-04-05] MEDS: Fluconazole IV 100mg/50 ml NS 50 ML IVPB SCH (09:41)
[2018-04-05] MEDS: Bacitracin Ointment 30 GM TUBE TOP SCH ×2 (09:42→18:46)
[2018-04-05] MEDS: Silver Sulfadiazine 1% Cream (20 gm) TOP SCH ×2 (09:47→18:47)
--- NOTE | 2018-04-05 10:55 | CP.CCUPN ---
CCU Subjective - Physician Review Subjective (Free Text): PGY-1 Critical Care Progress Note for Dr. Aranda's service Patient seen and examined at bedside. Patient has shortness of breath at times. Patient on aersol and tolerating well. Patient admits to b/l shoulder pain when repositioned due to shoulder dislocation and rotator cuff tear. Patient has no acute complaints currently, denies fevers, chills, chest pain, sob, n/v, constipation or diarrhea, and dysuria. Critical Care Time Spent (in minutes): 35 CCU Objective - Vital Signs / Intake & Output Vital Signs (Last 4 hours): Vital Signs Pulse Resp Pulse Ox 04/05/18 07:50 94 H 04/05/18 07:00 90 17 91 L Intake and Output (Last 8hrs): Intake & Output 04/04/18 04/05/18 04/05/18 22:59 06:59 14:59 Intake Total 1590 120 20 Output Total 600 110 20 Balance 990 10 0 Weight 224 lb Intake: Intake, IV Amount 450 50 Left Medial Port Internal 450 Jugular Left Proximal Port 50 Internal Jugular Oral 1140 70 20 Output: Urine 600 110 20 Urethral ([place]) 600 110 20 Other: # Bowel Movements 1 0 - Physical Exam Head: Positive for: Atraumatic, Normocephalic, Other (central line in left IJ) Pupils: Positive for: PERRL Extroacular Muscles: Positive for: EOMI Conjunctiva: Positive for: Normal Mouth: Positive for: Dry Neck: Positive for: Normal Range of Motion. Negative for: JVD, Lymphadenopathy Respiratory/Chest: Positive for: Good Air Exchange, Decreased Breath Sounds. Negative for: Respiratory Distress, Accessory Muscle Use, Wheezes, Tachypneic Cardiovascular: Positive for: Regular Rate and Rhythm, Normal S1, S2. Negative for: Murmurs, Irregular Rhythm Abdomen: Positive for: Normal Bowel Sounds. Negative for: Tenderness, Distention, Peritoneal Signs Upper Extremity: Positive for: Normal Inspection, Edema. Negative for: Cyanosis Lower Extremity: Positive for: Normal Inspection, Edema Neurological: Positive for: GCS=15 Skin: Positive for: Dry, Normal Color. Negative for: Diaphoretic Psychiatric: Positive for: Alert, Oriented x 3 - Medications Active Medications: Active Medications Generic Name Dose Route Start Last Admin Trade Name Freq PRN Reason Stop Dose Admin Acetaminophen 650 mg 03/23/18 15:59 04/02/18 04:36 Tylenol 325mg Tab PO 650 mg Q6 PRN Administration Fever >100.4 F Albuterol/Ipratropium 3 ml 04/02/18 14:00 04/05/18 07:49 Duoneb 3 Mg/0.5 Mg (3 Ml) Ud INH 3 ml RQ6 [facility] Administration Amiodarone HCl 200 mg 03/23/18 16:45 04/05/18 09:40 Cordarone PO 200 mg DAILY [facility] Administration Apixaban 5 mg 03/23/18 18:00 04/05/18 09:40 Eliquis PO 5 mg BID [facility] Administration Ascorbic Acid 500 mg 04/02/18 10:00 04/05/18 09:40 Vitamin C 500 Mg Tab PO 500 mg BID [facility] Administration Bacitracin 0 gm 04/01/18 18:00 04/05/18 09:42 Bacitracin TOP 1 applic BID [facility] Administration Fluconazole 50 mls @ 100 mls/hr 03/27/18 10:00 04/05/18 09:41 Diflucan Iv 100 Mg/50 Ml Ns IVPB 100 mls/hr DAILY [facility] Administration Protocol Azithromycin 500 mg in 250 mls @ 167 mls/hr 03/28/18 14:15 04/04/18 15:00 Zithromax 500mg In Ns Addvantage IVPB 167 mls/hr Q24H [facility] Administration Protocol Cefepime HCl 1 gm in 50 mls @ 100 mls/hr 04/01/18 16:30 04/05/18 03:45 Maxipime Iv 1 Gm Premix IVPB 100 mls/hr Q12H [facility] Administration Protocol Lactulose 20 gm 03/30/18 19:13 04/02/18 17:20 Enulose PO 20 gm HS PRN Administration Constipation Methylprednisolone 40 mg 04/02/18 09:00 04/05/18 09:41 Solu-Medrol IVP 40 mg Q8H [facility] Administration Multivitamins/Vitamin C 5 ml 04/02/18 10:00 04/05/18 09:40 Multi-Delyn Liquid PO 5 ml DAILY [facility] Administration Nystatin 1 applic 03/23/18 18:00 04/05/18 09:42 Nystop Topical Powder TOP 1 applic BID [facility] Administration Pantoprazole Sodium 40 mg 03/27/18 10:00 04/05/18 09:40 Protonix Susp PO 40 mg DAILY [facility] Administration Silver Sulfadiazine 0 ea 03/26/18 10:00 04/04/18 18:01 Silvadene 1% 20 Gm TOP 1 applic BID [facility] Administration Verapamil HCl 40 mg 04/02/18 09:00 04/05/18 09:40 Calan Tab PO 40 mg Q6H [facility] Administration Zinc Sulfate 220 mg 04/02/18 10:00 04/05/18 09:40 Zinc Sulfate 220 Mg Cap PO 220 mg DAILY [facility] Administration - Patient Studies Lab Studies: Microbiology Studies 03/31/18 14:55 Blood Culture - Preliminary Blood-Thru Central Line NO GROWTH AFTER 4 DAYS 03/31/18 14:55 Blood Culture - Preliminary Blood-Thru Central Line NO GROWTH AFTER 4 DAYS 03/31/18 18:24 Gram Stain - Final Pleural Fluid Body Fluid Culture - Final No growth. Lab Studies 04/05/18 04/05/18 Range/Units 08:33 08:33 WBC 8.2 (4.8-10.8) K/uL RBC 3.79 L (3.80-5.20) Mil/uL Hgb 9.9 L (11.0-16.0) g/dL Hct 32.3 L (34.0-47.0) % MCV 85.2 (81.0-99.0) fL MCH 26.2 L (27.0-31.0) pg MCHC 30.7 L (33.0-37.0) g/dL RDW 24.9 H (11.5-14.5) % Plt Count 242 (130-400) K/uL MPV 9.7 (7.2-11.7) fL Neut % (Auto) 88.9 H (50.0-75.0) % Lymph % (Auto) 6.0 L (20.0-40.0) % [place] % (Auto) 5.0 (0.0-10.0) % Eos % (Auto) 0.0 (0.0-4.0) % Baso % (Auto) 0.1 (0.0-2.0) % Neut # (Auto) 7.3 H (1.8-7.0) K/uL Lymph # (Auto) 0.5 L (1.0-4.3) K/uL [place] # (Auto) 0.4 (0.0-0.8) K/uL Eos # (Auto) 0.0 (0.0-0.7) K/uL Baso # (Auto) 0.0 (0.0-0.2) K/uL Neutrophils % (Manual) 94 H (50-75) % Lymphocytes % (Manual) 4 L (20-40) % Monocytes % (Manual) 2 (0-10) % Platelet Estimate Normal (NORMAL) Polychromasia Slight Hypochromasia (manual) Slight Anisocytosis (manual) Moderate Microcytosis (manual) Slight Macrocytosis (manual) Slight Ovalocytes Slight Sodium 146 (132-148) mmol/L Potassium 3.3 L (3.6-5.2) mmol/L Chloride 106 (98-107) mmol/L Carbon Dioxide 34 H (22-30) mmol/L Anion Gap 9 L (10-20) BUN 60 H (7-17) mg/dL Creatinine 0.8 (0.7-1.2) mg/dL Est GFR ( Amer) > 60 Est GFR (Non-Af Amer) > 60 Random Glucose 184 H (65-105) mg/dL Calcium 8.6 (8.6-10.4) mg/dl Phosphorus 2.8 (2.5-4.5) mg/dL Magnesium 2.5 H (1.6-2.3) mg/dL Total Bilirubin 1.3 (0.2-1.3) mg/dL AST 23 (14-36) U/L ALT 16 (9-52) U/L Alkaline Phosphatase 51 (38-126) U/L Total Protein 5.6 L (6.3-8.3) g/dL Albumin 2.8 L (3.5-5.0) g/dL Globulin 2.7 (2.2-3.9) gm/dL Albumin/Globulin Ratio 1.1 (1.0-2.1) Laboratory Results - last 24 hr 04/05/18 04/05/18 08:33 08:33 WBC 8.2 RBC 3.79 L Hgb 9.9 L Hct 32.3 L MCV 85.2 MCH 26.2 L MCHC 30.7 L RDW 24.9 H Plt Count 242 MPV 9.7 Neut % (Auto) 88.9 H Lymph % (Auto) 6.0 L [place] % (Auto) 5.0 Eos % (Auto) 0.0 Baso % (Auto) 0.1 Neut # (Auto) 7.3 H Lymph # (Auto) 0.5 L [place] # (Auto) 0.4 Eos # (Auto) 0.0 Baso # (Auto) 0.0 Neutrophils % (Manual) 94 H Lymphocytes % (Manual) 4 L Monocytes % (Manual) 2 Platelet Estimate Normal Polychromasia Slight Hypochromasia (manual) Slight Anisocytosis (manual) Moderate Microcytosis (manual) Slight Macrocytosis (manual) Slight Ovalocytes Slight Sodium 146 Potassium 3.3 L Chloride 106 Carbon Dioxide 34 H Anion Gap 9 L BUN 60 H Creatinine 0.8 Est GFR ( Amer) > 60 Est GFR (Non-Af Amer) > 60 Random Glucose 184 H Calcium 8.6 Phosphorus 2.8 Magnesium 2.5 H Total Bilirubin 1.3 AST 23 ALT 16 Alkaline Phosphatase 51 Total Protein 5.6 L Albumin 2.8 L Globulin 2.7 Albumin/Globulin Ratio 1.1 Radiology Impressions: Radiology Impressions Chest X-Ray 04/04/18 09:27 IMPRESSION: Worsening moderate pleural effusions, larger on the left. Interval worsening right lower lobe consolidation. Suspect bilateral pulmonary edema. Review of Systems - Review of Systems Review of Systems: 12 point ROS obtained and noted as in HPI Critical Care Progress Note - Extremities/Vascular Does the Patient have a Central Venous Catheter?: Yes Insertion Site: Internal Jugular Vein - Prophylaxis GI Prophylaxis GI: PPI - Nutrition Nutrition: Nutrition Category Date Time Status Pureed [Dysphagia/Modified Consistency Diet] [DIET] Diets 04/02/18 Breakfast Active Assessment/Plan - Assessment and Plan (Free Text) Assessment: Patient is a 82 yo female w/ PMH of CHF, HTN, Afib on AC admitted for bilateral pleural effusions and pneumonia. Was breathing on bipap in ED however after transfer to ICU, patient decompensated only responding to painful stimuli. GCS of 6. Patient was intubated. Patient became hypotensive so central line was placed for levophed drip. s/p thoracentesis with 1100 fluid removed. Home AC restarted. Precedex and levophed dc'ed. Patient extubated and doing well. Considering thoracentesis for left side. Neuro Awake, Alerted, Oriented No acute issues Pulm Duoneb Azithromycin/Cefepime/Fluconazole POD 1 thoracentesis 1100ml fluid drained- pending complete fluid studies Methylprednisolone CV Amiodarone Verapamil Elqiuis GI no active issues Protonix; Lactulose Heme Elqiuis bid Renal Zinc/Multivitamins/Ascorbic acid KCL 40 oral; KCl 10 meq x 1; Repeat CMP in AM Derm Podiatry following for foot ulcer on right- Nystatin Wound care for unstagable sacral ulcer and buttock ulcer- recommendations are continued as per wound care- bacitracin Continue to monitor ID Azith/Cefepime/Fluconazole + trach asp for yeast species; + urine cx for yeast species new figueredo cx negative GI ppx: Protonix DVT ppx: Elquis 5mg po bid Margi Valenzuela PGY-1 Case d/w Dr. Carbone
[2018-04-05] MEDS ORDERED: Potassium Chloride 20 mEq ER Tab PO ONE (11:03)
[2018-04-05] MEDS ORDERED: Potassium Chloride 20 mEq/15 ml LIQ UD PO ONE (13:00)
[2018-04-05] MEDS: Azithromycin 500mg/250ML NS 500 MG/250 ML BAG IVPB SCH (14:25)
--- NOTE | 2018-04-05 15:24 | CP.PCM.PN ---
Subjective - Date & Time of Evaluation Date of Evaluation: 04/05/18 Time of Evaluation: 08:00 - Subjective Subjective: nad on rounds afeb still requires BiPaP Dr Amador to re-eval for thoracentesis Objective - Vital Signs/Intake and Output Vital Signs (last 24 hours): Temp Pulse Resp BP Pulse Ox 97 F L 117 H 27 H 128/100 H 95 04/05/18 12:00 04/05/18 15:00 04/05/18 15:00 04/05/18 14:35 04/05/18 15:00 Intake and Output: 04/05/18 04/05/18 06:59 18:59 Intake Total 220 795 Output Total 110 20 Balance 110 775 - Medications Medications: Current Medications Acetaminophen (Tylenol 325mg Tab) 650 mg PO Q6 PRN PRN Reason: Fever >100.4 F Last Admin: 04/02/18 04:36 Dose: 650 mg Albuterol/Ipratropium (Duoneb 3 Mg/0.5 Mg (3 Ml) Ud) 3 ml INH RQ6 [facility] Last Admin: 04/05/18 13:12 Dose: 3 ml Amiodarone HCl (Cordarone) 200 mg PO DAILY [facility] Last Admin: 04/05/18 09:40 Dose: 200 mg Apixaban (Eliquis) 5 mg PO BID [facility] Last Admin: 04/05/18 09:40 Dose: 5 mg Ascorbic Acid (Vitamin C 500 Mg Tab) 500 mg PO BID [facility] Last Admin: 04/05/18 09:40 Dose: 500 mg Bacitracin (Bacitracin) 0 gm TOP BID [facility] Last Admin: 04/05/18 09:42 Dose: 1 applic Fluconazole (Diflucan Iv 100 Mg/50 Ml Ns) 50 mls @ 100 mls/hr IVPB DAILY [facility]; Protocol Last Admin: 04/05/18 09:41 Dose: 100 mls/hr Azithromycin (Zithromax 500mg In Ns Addvantage) 500 mg in 250 mls @ 167 mls/hr IVPB Q24H [facility]; Protocol Last Admin: 04/05/18 14:25 Dose: 167 mls/hr Cefepime HCl (Maxipime Iv 1 Gm Premix) 1 gm in 50 mls @ 100 mls/hr IVPB Q12H [facility]; Protocol Last Admin: 04/05/18 03:45 Dose: 100 mls/hr Lactulose (Enulose) 20 gm PO HS PRN PRN Reason: Constipation Last Admin: 04/02/18 17:20 Dose: 20 gm Methylprednisolone (Solu-Medrol) 40 mg IVP Q8H [facility] Last Admin: 04/05/18 09:41 Dose: 40 mg Multivitamins/Vitamin C (Multi-Delyn Liquid) 5 ml PO DAILY [facility] Last Admin: 04/05/18 09:40 Dose: 5 ml Nystatin (Nystop Topical Powder) 1 applic TOP BID [facility] Last Admin: 04/05/18 09:42 Dose: 1 applic Pantoprazole Sodium (Protonix Susp) 40 mg PO DAILY [facility] Last Admin: 04/05/18 09:40 Dose: 40 mg Silver Sulfadiazine (Silvadene 1% 20 Gm) 0 ea TOP BID [facility] Last Admin: 04/04/18 18:01 Dose: 1 applic Verapamil HCl (Calan Tab) 40 mg PO Q6H [facility] Last Admin: 04/05/18 14:26 Dose: 40 mg Zinc Sulfate (Zinc Sulfate 220 Mg Cap) 220 mg PO DAILY [facility] Last Admin: 04/05/18 09:40 Dose: 220 mg - Labs Labs: 04/05/18 08:33 04/05/18 08:33 PT 17.6 SECONDS (9.7-12.2) H 03/31/18 06:13 INR 1.6 03/31/18 06:13 APTT 34 SECONDS (21-34) 03/31/18 06:13 - Constitutional Appears: Non-toxic, Chronically Ill - Head Exam Head Exam: NORMOCEPHALIC - Eye Exam Eye Exam: absent: Scleral icterus - ENT Exam ENT Exam: Mucous Membranes Dry - Neck Exam Neck Exam: absent: Lymphadenopathy - Respiratory Exam Respiratory Exam: Decreased Breath Sounds - Cardiovascular Exam Cardiovascular Exam: REGULAR RHYTHM - GI/Abdominal Exam GI & Abdominal Exam: Soft - Rectal Exam Rectal Exam: Deferred - Exam Exam: NORMAL INSPECTION - Extremities Exam Extremities Exam: absent: Pedal Edema - Back Exam Back Exam: absent: CVA tenderness (L), CVA tenderness (R) - Neurological Exam Neurological Exam: Alert, Altered, Awake, CN II-XII Intact Assessment and Plan (1) Acute respiratory failure Status: Acute (2) Atrial fibrillation and flutter Status: Acute (3) CHF (congestive heart failure) Status: Acute (4) Pleural effusion Status: Acute - Assessment and Plan (Free Text) Assessment: cont iv rx min 7 days pulm eval ongoing possible thoracentesis
--- NOTE | 2018-04-05 15:35 | CP.PCM.PN ---
Subjective - Date & Time of Evaluation Date of Evaluation: 04/05/18 Time of Evaluation: 13:10 - Subjective Subjective: Patient s/p extubation, currently on Ventimask. Patients daughter reports that patient Desats when patient speaks or eats down to 80's. Cough and shortness of breath returns when she lies flat. Denies fevers, chills, chest pain, hemo ptysis Patient examined at bedside. Patient awake in no acute distress Afebrile, on ventimask, SpO2 85% good air entry, decreased breath sounds 04/05- WBC 8.2, Cl 106, CO2 34 CXR 04/04- worsening moderate pleural effusion left greater than right, no pneumothorax, with worsening right lower lobe consolidation. pleural effusion on CXR possibly require repeat thoracentesis Continue Duoneb Continue solumedrol Objective - Vital Signs/Intake and Output Vital Signs (last 24 hours): Temp Pulse Resp BP Pulse Ox 97 F L 117 H 27 H 128/100 H 95 04/05/18 12:00 04/05/18 15:00 04/05/18 15:00 04/05/18 14:35 04/05/18 15:00 Intake and Output: 04/05/18 04/05/18 06:59 18:59 Intake Total 220 795 Output Total 110 20 Balance 110 775 - Medications Medications: Current Medications Acetaminophen (Tylenol 325mg Tab) 650 mg PO Q6 PRN PRN Reason: Fever >100.4 F Last Admin: 04/02/18 04:36 Dose: 650 mg Albuterol/Ipratropium (Duoneb 3 Mg/0.5 Mg (3 Ml) Ud) 3 ml INH RQ6 [facility] Last Admin: 04/05/18 13:12 Dose: 3 ml Amiodarone HCl (Cordarone) 200 mg PO DAILY [facility] Last Admin: 04/05/18 09:40 Dose: 200 mg Apixaban (Eliquis) 5 mg PO BID [facility] Last Admin: 04/05/18 09:40 Dose: 5 mg Ascorbic Acid (Vitamin C 500 Mg Tab) 500 mg PO BID [facility] Last Admin: 04/05/18 09:40 Dose: 500 mg Bacitracin (Bacitracin) 0 gm TOP BID [facility] Last Admin: 04/05/18 09:42 Dose: 1 applic Fluconazole (Diflucan Iv 100 Mg/50 Ml Ns) 50 mls @ 100 mls/hr IVPB DAILY [facility]; Protocol Last Admin: 04/05/18 09:41 Dose: 100 mls/hr Azithromycin (Zithromax 500mg In Ns Addvantage) 500 mg in 250 mls @ 167 mls/hr IVPB Q24H [facility]; Protocol Last Admin: 04/05/18 14:25 Dose: 167 mls/hr Cefepime HCl (Maxipime Iv 1 Gm Premix) 1 gm in 50 mls @ 100 mls/hr IVPB Q12H [facility]; Protocol Last Admin: 04/05/18 03:45 Dose: 100 mls/hr Lactulose (Enulose) 20 gm PO HS PRN PRN Reason: Constipation Last Admin: 04/02/18 17:20 Dose: 20 gm Methylprednisolone (Solu-Medrol) 40 mg IVP Q8H [facility] Last Admin: 04/05/18 09:41 Dose: 40 mg Multivitamins/Vitamin C (Multi-Delyn Liquid) 5 ml PO DAILY [facility] Last Admin: 04/05/18 09:40 Dose: 5 ml Nystatin (Nystop Topical Powder) 1 applic TOP BID [facility] Last Admin: 04/05/18 09:42 Dose: 1 applic Pantoprazole Sodium (Protonix Susp) 40 mg PO DAILY [facility] Last Admin: 04/05/18 09:40 Dose: 40 mg Silver Sulfadiazine (Silvadene 1% 20 Gm) 0 ea TOP BID [facility] Last Admin: 04/04/18 18:01 Dose: 1 applic Verapamil HCl (Calan Tab) 40 mg PO Q6H [facility] Last Admin: 04/05/18 14:26 Dose: 40 mg Zinc Sulfate (Zinc Sulfate 220 Mg Cap) 220 mg PO DAILY [facility] Last Admin: 04/05/18 09:40 Dose: 220 mg - Labs Labs: 04/05/18 08:33 04/05/18 08:33 PT 17.6 SECONDS (9.7-12.2) H 03/31/18 06:13 INR 1.6 03/31/18 06:13 APTT 34 SECONDS (21-34) 03/31/18 06:13 Assessment and Plan (1) Acute respiratory failure Status: Acute (2) Atrial fibrillation and flutter Status: Acute (3) CHF (congestive heart failure) Status: Acute (4) Pleural effusion Status: Acute
--- NOTE | 2018-04-05 16:56 | CP.PCM.PN ---
Subjective - Date & Time of Evaluation Date of Evaluation: 04/05/18 Time of Evaluation: 16:55 - Subjective Subjective: sob cough increase liying down Objective - Vital Signs/Intake and Output Vital Signs (last 24 hours): Temp Pulse Resp BP Pulse Ox 97 F L 117 H 27 H 128/100 H 95 04/05/18 12:00 04/05/18 15:00 04/05/18 15:00 04/05/18 14:35 04/05/18 15:00 Intake and Output: 04/05/18 04/05/18 06:59 18:59 Intake Total 220 795 Output Total 110 20 Balance 110 775 - Medications Medications: Current Medications Acetaminophen (Tylenol 325mg Tab) 650 mg PO Q6 PRN PRN Reason: Fever >100.4 F Last Admin: 04/02/18 04:36 Dose: 650 mg Albuterol/Ipratropium (Duoneb 3 Mg/0.5 Mg (3 Ml) Ud) 3 ml INH RQ6 [facility] Last Admin: 04/05/18 13:12 Dose: 3 ml Amiodarone HCl (Cordarone) 200 mg PO DAILY [facility] Last Admin: 04/05/18 09:40 Dose: 200 mg Apixaban (Eliquis) 5 mg PO BID [facility] Last Admin: 04/05/18 09:40 Dose: 5 mg Ascorbic Acid (Vitamin C 500 Mg Tab) 500 mg PO BID [facility] Last Admin: 04/05/18 09:40 Dose: 500 mg Bacitracin (Bacitracin) 0 gm TOP BID [facility] Last Admin: 04/05/18 09:42 Dose: 1 applic Fluconazole (Diflucan Iv 100 Mg/50 Ml Ns) 50 mls @ 100 mls/hr IVPB DAILY [facility]; Protocol Last Admin: 04/05/18 09:41 Dose: 100 mls/hr Azithromycin (Zithromax 500mg In Ns Addvantage) 500 mg in 250 mls @ 167 mls/hr IVPB Q24H [facility]; Protocol Last Admin: 04/05/18 14:25 Dose: 167 mls/hr Cefepime HCl (Maxipime Iv 1 Gm Premix) 1 gm in 50 mls @ 100 mls/hr IVPB Q12H [facility]; Protocol Last Admin: 04/05/18 03:45 Dose: 100 mls/hr Lactulose (Enulose) 20 gm PO HS PRN PRN Reason: Constipation Last Admin: 04/02/18 17:20 Dose: 20 gm Methylprednisolone (Solu-Medrol) 40 mg IVP Q8H [facility] Last Admin: 04/05/18 09:41 Dose: 40 mg Multivitamins/Vitamin C (Multi-Delyn Liquid) 5 ml PO DAILY [facility] Last Admin: 04/05/18 09:40 Dose: 5 ml Nystatin (Nystop Topical Powder) 1 applic TOP BID [facility] Last Admin: 04/05/18 09:42 Dose: 1 applic Pantoprazole Sodium (Protonix Susp) 40 mg PO DAILY [facility] Last Admin: 04/05/18 09:40 Dose: 40 mg Silver Sulfadiazine (Silvadene 1% 20 Gm) 0 ea TOP BID [facility] Last Admin: 04/04/18 18:01 Dose: 1 applic Verapamil HCl (Calan Tab) 40 mg PO Q6H [facility] Last Admin: 04/05/18 14:26 Dose: 40 mg Zinc Sulfate (Zinc Sulfate 220 Mg Cap) 220 mg PO DAILY [facility] Last Admin: 04/05/18 09:40 Dose: 220 mg - Labs Labs: 04/05/18 08:33 04/05/18 08:33 PT 17.6 SECONDS (9.7-12.2) H 03/31/18 06:13 INR 1.6 03/31/18 06:13 APTT 34 SECONDS (21-34) 03/31/18 06:13 - Constitutional Appears: Non-toxic - Head Exam Head Exam: NORMAL INSPECTION - Eye Exam Eye Exam: Normal appearance Pupil Exam: NORMAL ACCOMODATION - ENT Exam ENT Exam: Mucous Membranes Moist - Neck Exam Neck Exam: Normal Inspection - Respiratory Exam Respiratory Exam: Decreased Breath Sounds - Cardiovascular Exam Cardiovascular Exam: Irregular Rhythm, REGULAR RHYTHM - GI/Abdominal Exam GI & Abdominal Exam: Normal Bowel Sounds Assessment and Plan - Assessment and Plan (Free Text) Assessment: s/p resp failiur chf pleural efusion dm aneamia Plan: as per orders
[2018-04-06] MEDS: MethylPREDNISolone 40 mg Vial IVP SCH ×3 (02:00→18:28)
[2018-04-06] MEDS: Albuterol-Ipratrop 3 mg / 0.5 (3 ml) UD INH SCH ×4 (02:57→20:52)
[2018-04-06] MEDS: Cefepime IV 1 gm in Dextrose 1 GM/50 ML BAG IVPB SCH ×2 (05:30→16:31)
[2018-04-06 06:38] LABS: BASO % 0.3 % (0.0-2.0); HEMOGLOBIN 9.6 g/dL (11.0-16.0); LYMPH # 0.8 K/uL (1.0-4.3); LYMPH % 10.3 % (20.0-40.0); MEAN CELL VOLUME 85.8 fL (81.0-99.0); MEAN CORPUSCULAR HEMOGLOBIN 26.2 pg (27.0-31.0); MEAN CORPUSCULAR HGB CONC 30.6 g/dL (33.0-37.0); MEAN PLATELET VOLUME 9.9 fL (7.2-11.7); MONO # 0.3 K/uL (0.0-0.8); MONO % 4.1 % (0.0-10.0); NEUT # 6.5 K/uL (1.8-7.0); NEUT % 85.3 % (50.0-75.0); NRBC % 0.4 % (0.0-2.0); RBC 3.67 Mil/uL (3.80-5.20); RED CELL DISTRIBUTION WIDTH 25.6 % (11.5-14.5); WHITE BLOOD COUNT 7.6 K/uL (4.8-10.8)
[2018-04-06 07:04] LABS: ALBUMIN 2.6 g/dL (3.5-5.0); ALT/SGPT 20 U/L (9-52); AST/SGOT 32 U/L (14-36); BLOOD UREA NITROGEN 65 mg/dL (7-17); CALCIUM 8.5 mg/dl (8.6-10.4); GFR NON-AFRICAN AMERICAN > 60
--- NOTE | 2018-04-06 08:53 | RAD ---
HISTORY: sob, pna, pleural effusion COMPARISON: Chest x-ray performed 04/04/18 TECHNIQUE: Chest, one view. FINDINGS: Examination markedly limited by habitus and hypoinflation. Left IJ approach central venous catheter extends to the brachiocephalic/SVC junction. LUNGS: Biapical pleural thickening. Moderate layering pleural effusions and pulmonary venous congestion. Bibasilar consolidations. No definite pneumothorax. CARDIOVASCULAR: Cardiomegaly. Ectatic aorta. Dense atherosclerotic calcifications. OSSEOUS STRUCTURES: Osseous demineralization. Degenerative changes. VISUALIZED UPPER ABDOMEN: Unremarkable. OTHER FINDINGS: None. IMPRESSION: Left IJ approach central venous catheter extends to the brachiocephalic/SVC junction. Cardiomegaly. Ectatic aorta. Biapical pleural thickening. Moderate layering pleural effusions and pulmonary venous congestion. Bibasilar consolidations.
[2018-04-06] MEDS: Fluconazole IV 100mg/50 ml NS 50 ML IVPB SCH (11:02)
[2018-04-06] MEDS: Pantoprazole 40 mg Susp UD PO SCH (11:03)
[2018-04-06] MEDS: Multiple Vitamins Oral Solution PO SCH (11:04)
[2018-04-06] MEDS: Bacitracin Ointment 30 GM TUBE TOP SCH ×2 (11:05→18:29)
[2018-04-06] MEDS: Silver Sulfadiazine 1% Cream (20 gm) TOP SCH ×2 (11:05→18:28)
--- NOTE | 2018-04-06 11:31 | CP.PCM.PN ---
Subjective - Date & Time of Evaluation Date of Evaluation: 04/06/18 Time of Evaluation: 11:29 - Subjective Subjective: pt still in icu has difficulty breathing still has plural effusion will have tomorro another thoracocetysis Objective - Vital Signs/Intake and Output Vital Signs (last 24 hours): Temp Pulse Resp BP Pulse Ox 98.1 F 84 15 164/119 H 100 04/06/18 04:00 04/06/18 07:29 04/06/18 07:29 04/06/18 07:29 04/06/18 07:29 Intake and Output: 04/06/18 04/06/18 06:59 18:59 Intake Total 110 Output Total 200 0 Balance -90 0 - Medications Medications: Current Medications Acetaminophen (Tylenol 325mg Tab) 650 mg PO Q6 PRN PRN Reason: Fever >100.4 F Last Admin: 04/02/18 04:36 Dose: 650 mg Albuterol/Ipratropium (Duoneb 3 Mg/0.5 Mg (3 Ml) Ud) 3 ml INH RQ6 [facility] Last Admin: 04/06/18 07:05 Dose: 3 ml Amiodarone HCl (Cordarone) 200 mg PO DAILY [facility] Last Admin: 04/06/18 11:09 Dose: 200 mg Apixaban (Eliquis) 5 mg PO BID [facility] Last Admin: 04/06/18 11:06 Dose: Not Given Ascorbic Acid (Vitamin C 500 Mg Tab) 500 mg PO BID [facility] Last Admin: 04/06/18 11:04 Dose: 500 mg Bacitracin (Bacitracin) 0 gm TOP BID [facility] Last Admin: 04/06/18 11:05 Dose: 1 applic Fluconazole (Diflucan Iv 100 Mg/50 Ml Ns) 50 mls @ 100 mls/hr IVPB DAILY [facility]; Protocol Last Admin: 04/06/18 11:02 Dose: 100 mls/hr Azithromycin (Zithromax 500mg In Ns Addvantage) 500 mg in 250 mls @ 167 mls/hr IVPB Q24H [facility]; Protocol Last Admin: 04/05/18 14:25 Dose: 167 mls/hr Cefepime HCl (Maxipime Iv 1 Gm Premix) 1 gm in 50 mls @ 100 mls/hr IVPB Q12H [facility]; Protocol Last Admin: 04/06/18 05:30 Dose: 100 mls/hr Lactulose (Enulose) 20 gm PO HS PRN PRN Reason: Constipation Last Admin: 04/02/18 17:20 Dose: 20 gm Methylprednisolone (Solu-Medrol) 40 mg IVP Q8H [facility] Last Admin: 04/06/18 09:04 Dose: 40 mg Multivitamins/Vitamin C (Multi-Delyn Liquid) 5 ml PO DAILY [facility] Last Admin: 04/06/18 11:04 Dose: 5 ml Nystatin (Nystop Topical Powder) 1 applic TOP BID [facility] Last Admin: 04/06/18 11:05 Dose: 1 applic Pantoprazole Sodium (Protonix Susp) 40 mg PO DAILY [facility] Last Admin: 04/06/18 11:03 Dose: 40 mg Silver Sulfadiazine (Silvadene 1% 20 Gm) 0 ea TOP BID [facility] Last Admin: 04/06/18 11:05 Dose: 1 applic Verapamil HCl (Calan Tab) 40 mg PO Q6H [facility] Last Admin: 04/06/18 11:04 Dose: 40 mg Zinc Sulfate (Zinc Sulfate 220 Mg Cap) 220 mg PO DAILY [facility] Last Admin: 04/06/18 11:03 Dose: 220 mg - Labs Labs: 04/06/18 06:26 04/06/18 06:26 PT 17.6 SECONDS (9.7-12.2) H 03/31/18 06:13 INR 1.6 03/31/18 06:13 APTT 34 SECONDS (21-34) 03/31/18 06:13 - Constitutional Appears: In Acute Distress - Head Exam Head Exam: ATRAUMATIC - Eye Exam Eye Exam: Normal appearance Pupil Exam: NORMAL ACCOMODATION - ENT Exam ENT Exam: Mucous Membranes Moist - Neck Exam Neck Exam: Normal Inspection - Respiratory Exam Respiratory Exam: Decreased Breath Sounds - Cardiovascular Exam Cardiovascular Exam: Tachycardia - GI/Abdominal Exam GI & Abdominal Exam: Normal Bowel Sounds - Back Exam Back Exam: CVA tenderness (L) - Neurological Exam Neurological Exam: Awake, Oriented x3 Additional comments: swallen less celulitis has dermatitis feet - Psychiatric Exam Psychiatric exam: Normal Mood - Skin Skin Exam: Pallor Assessment and Plan - Assessment and Plan (Free Text) Assessment: chf plural efusion hypoxeamia s/p respfailiure dm obesity confined to bed Plan: as pr orders
--- NOTE | 2018-04-06 11:43 | CP.PCM.PN ---
Subjective - Date & Time of Evaluation Date of Evaluation: 04/06/18 Time of Evaluation: 11:42 - Subjective Subjective: Patient has no specific complaints Objective - Vital Signs/Intake and Output Vital Signs (last 24 hours): Temp Pulse Resp BP Pulse Ox 98.1 F 84 15 164/119 H 100 04/06/18 04:00 04/06/18 07:29 04/06/18 07:29 04/06/18 07:29 04/06/18 07:29 Intake and Output: 04/06/18 04/06/18 06:59 18:59 Intake Total 110 Output Total 200 0 Balance -90 0 - Medications Medications: Current Medications Acetaminophen (Tylenol 325mg Tab) 650 mg PO Q6 PRN PRN Reason: Fever >100.4 F Last Admin: 04/02/18 04:36 Dose: 650 mg Albuterol/Ipratropium (Duoneb 3 Mg/0.5 Mg (3 Ml) Ud) 3 ml INH RQ6 [facility] Last Admin: 04/06/18 07:05 Dose: 3 ml Amiodarone HCl (Cordarone) 200 mg PO DAILY [facility] Last Admin: 04/06/18 11:09 Dose: 200 mg Apixaban (Eliquis) 5 mg PO BID [facility] Last Admin: 04/06/18 11:06 Dose: Not Given Ascorbic Acid (Vitamin C 500 Mg Tab) 500 mg PO BID [facility] Last Admin: 04/06/18 11:04 Dose: 500 mg Bacitracin (Bacitracin) 0 gm TOP BID [facility] Last Admin: 04/06/18 11:05 Dose: 1 applic Fluconazole (Diflucan Iv 100 Mg/50 Ml Ns) 50 mls @ 100 mls/hr IVPB DAILY [facility]; Protocol Last Admin: 04/06/18 11:02 Dose: 100 mls/hr Azithromycin (Zithromax 500mg In Ns Addvantage) 500 mg in 250 mls @ 167 mls/hr IVPB Q24H [facility]; Protocol Last Admin: 04/05/18 14:25 Dose: 167 mls/hr Cefepime HCl (Maxipime Iv 1 Gm Premix) 1 gm in 50 mls @ 100 mls/hr IVPB Q12H [facility]; Protocol Last Admin: 04/06/18 05:30 Dose: 100 mls/hr Lactulose (Enulose) 20 gm PO HS PRN PRN Reason: Constipation Last Admin: 04/02/18 17:20 Dose: 20 gm Methylprednisolone (Solu-Medrol) 40 mg IVP Q8H [facility] Last Admin: 04/06/18 09:04 Dose: 40 mg Multivitamins/Vitamin C (Multi-Delyn Liquid) 5 ml PO DAILY [facility] Last Admin: 04/06/18 11:04 Dose: 5 ml Nystatin (Nystop Topical Powder) 1 applic TOP BID [facility] Last Admin: 04/06/18 11:05 Dose: 1 applic Pantoprazole Sodium (Protonix Susp) 40 mg PO DAILY [facility] Last Admin: 04/06/18 11:03 Dose: 40 mg Silver Sulfadiazine (Silvadene 1% 20 Gm) 0 ea TOP BID [facility] Last Admin: 04/06/18 11:05 Dose: 1 applic Verapamil HCl (Calan Tab) 40 mg PO Q6H [facility] Last Admin: 04/06/18 11:04 Dose: 40 mg Zinc Sulfate (Zinc Sulfate 220 Mg Cap) 220 mg PO DAILY [facility] Last Admin: 04/06/18 11:03 Dose: 220 mg - Labs Labs: 04/06/18 06:26 04/06/18 06:26 PT 17.6 SECONDS (9.7-12.2) H 03/31/18 06:13 INR 1.6 03/31/18 06:13 APTT 34 SECONDS (21-34) 03/31/18 06:13 - Head Exam Head Exam: ATRAUMATIC, NORMOCEPHALIC - Respiratory Exam Respiratory Exam: Rales, NORMAL BREATHING PATTERN. absent: Rhonchi, Wheezes, Respiratory Distress, Stridor - Cardiovascular Exam Cardiovascular Exam: +S1, +S2, Murmur - Extremities Exam Extremities Exam: Pedal Edema - Neurological Exam Neurological Exam: Alert, Awake, Oriented x3 - Skin Skin Exam: Normal Color, Warm Assessment and Plan - Assessment and Plan (Free Text) Assessment: 82 yo female admitted to ICU for sepsis, respiratory distress, and pleural effusion s/p thoracentesis -hypoxic respiratory failure: resolved, successfully extubated -b/l pleural effusion: avoid fluid overloaded, pulmonary for repeat thoracentesis -Chronic diastolic heart failure with A-fib: rate controlled on NOAC, continue rx as per cardiology -MEL: resolved, avoid nephrotoxic drugs - Sepsis:remains afebrile -h/o ortho left houlder dislocation, PT/OT -continue dvt/pud ppx Patient remains hemodynamically stable. Repeat CXR reveals reaccumulation of pleural effusion, pulmonary to perform thor acentesis
--- NOTE | 2018-04-06 13:24 | CP.PCM.PN ---
Subjective - Date & Time of Evaluation Date of Evaluation: 04/06/18 Time of Evaluation: 20:39 - Subjective Subjective: Podiatry Progress Note- Dr. Shah 82 y/o female seen and evaluated at bedside for RLE wounds, healed at this time. Patient doing much better today and able to converse. Pt's daughter is at bedside at time of visit. Per daughter, no acute events overnight and no F/C/N/V/CP/SOB Objective - Vital Signs/Intake and Output Vital Signs (last 24 hours): Temp Pulse Resp BP Pulse Ox 98.1 F 84 15 164/119 H 100 04/06/18 04:00 04/06/18 07:29 04/06/18 07:29 04/06/18 07:29 04/06/18 07:29 Intake and Output: 04/06/18 04/06/18 06:59 18:59 Intake Total 110 Output Total 200 0 Balance -90 0 - Medications Medications: Current Medications Acetaminophen (Tylenol 325mg Tab) 650 mg PO Q6 PRN PRN Reason: Fever >100.4 F Last Admin: 04/02/18 04:36 Dose: 650 mg Albuterol/Ipratropium (Duoneb 3 Mg/0.5 Mg (3 Ml) Ud) 3 ml INH RQ6 [facility] Last Admin: 04/06/18 07:05 Dose: 3 ml Amiodarone HCl (Cordarone) 200 mg PO DAILY [facility] Last Admin: 04/06/18 11:09 Dose: 200 mg Apixaban (Eliquis) 5 mg PO BID [facility] Last Admin: 04/06/18 11:06 Dose: Not Given Ascorbic Acid (Vitamin C 500 Mg Tab) 500 mg PO BID [facility] Last Admin: 04/06/18 11:04 Dose: 500 mg Bacitracin (Bacitracin) 0 gm TOP BID [facility] Last Admin: 04/06/18 11:05 Dose: 1 applic Fluconazole (Diflucan Iv 100 Mg/50 Ml Ns) 50 mls @ 100 mls/hr IVPB DAILY [facility]; Protocol Last Admin: 04/06/18 11:02 Dose: 100 mls/hr Azithromycin (Zithromax 500mg In Ns Addvantage) 500 mg in 250 mls @ 167 mls/hr IVPB Q24H [facility]; Protocol Last Admin: 04/05/18 14:25 Dose: 167 mls/hr Cefepime HCl (Maxipime Iv 1 Gm Premix) 1 gm in 50 mls @ 100 mls/hr IVPB Q12H [facility]; Protocol Last Admin: 04/06/18 05:30 Dose: 100 mls/hr Lactulose (Enulose) 20 gm PO HS PRN PRN Reason: Constipation Last Admin: 04/02/18 17:20 Dose: 20 gm Methylprednisolone (Solu-Medrol) 40 mg IVP Q8H [facility] Last Admin: 04/06/18 09:04 Dose: 40 mg Multivitamins/Vitamin C (Multi-Delyn Liquid) 5 ml PO DAILY [facility] Last Admin: 04/06/18 11:04 Dose: 5 ml Nystatin (Nystop Topical Powder) 1 applic TOP BID [facility] Last Admin: 04/06/18 11:05 Dose: 1 applic Pantoprazole Sodium (Protonix Susp) 40 mg PO DAILY [facility] Last Admin: 04/06/18 11:03 Dose: 40 mg Silver Sulfadiazine (Silvadene 1% 20 Gm) 0 ea TOP BID [facility] Last Admin: 04/06/18 11:05 Dose: 1 applic Verapamil HCl (Calan Tab) 40 mg PO Q6H [facility] Last Admin: 04/06/18 11:04 Dose: 40 mg Zinc Sulfate (Zinc Sulfate 220 Mg Cap) 220 mg PO DAILY [facility] Last Admin: 04/06/18 11:03 Dose: 220 mg - Labs Labs: 04/06/18 06:26 04/06/18 06:26 PT 17.6 SECONDS (9.7-12.2) H 03/31/18 06:13 INR 1.6 03/31/18 06:13 APTT 34 SECONDS (21-34) 03/31/18 06:13 - Constitutional Appears: Well, Non-toxic, No Acute Distress - Head Exam Head Exam: ATRAUMATIC, NORMOCEPHALIC - Extremities Exam Additional comments: Lower extremity focused exam: VASC: Pulses are palpable B/L. Temp gradient cool to cool from proximal to distal. CFT <3 secs x 10. No pedal edema present. DERM: dry, flaky, hyperkeratotic skin noted to bilateral LE distal to the knee joint. No open lesions present. improving Unstageable decubitus pressure ulceration noted to right plantar posterior heel. NEURO: Gross sensation intact B/L ORTHO: No tenderness to palpation noted to lower extremity B/L - Neurological Exam Neurological Exam: Alert, Awake, Oriented x3 - Psychiatric Exam Psychiatric exam: Normal Affect, Normal Mood Assessment and Plan - Assessment and Plan (Free Text) Assessment: 82 y/o with right foot decubitus heel ulceration, stable Plan: Patient seen and evaluated No leukocytosis, afebrile Wound cleansed, dressed with ABD, DSD Right heel wound stable, will continue to monitor Continue multipodus boots at all times in bed Podiatry will continue to follow
[2018-04-06] MEDS: Azithromycin 500mg/250ML NS 500 MG/250 ML BAG IVPB SCH (14:34)
[2018-04-07] MEDS: MethylPREDNISolone 40 mg Vial IVP SCH ×3 (00:38→17:22)
[2018-04-07] MEDS: Albuterol-Ipratrop 3 mg / 0.5 (3 ml) UD INH SCH ×4 (01:11→19:18)
[2018-04-07] MEDS: Cefepime IV 1 gm in Dextrose 1 GM/50 ML BAG IVPB SCH ×2 (04:30→17:32)
[2018-04-07 06:17] LABS: BASO % 0.2 % (0.0-2.0); LYMPH # 0.1 K/uL (1.0-4.3); LYMPH % 1.4 % (20.0-40.0); MEAN CELL VOLUME 86.2 fL (81.0-99.0); MEAN CORPUSCULAR HEMOGLOBIN 26.5 pg (27.0-31.0); MEAN CORPUSCULAR HGB CONC 30.8 g/dL (33.0-37.0); MEAN PLATELET VOLUME 10.4 fL (7.2-11.7); MONO # 0.4 K/uL (0.0-0.8); MONO % 4.3 % (0.0-10.0); NEUT # 8.1 K/uL (1.8-7.0); NEUT % 94.1 % (50.0-75.0); NRBC % 0.3 % (0.0-2.0); PLATELET COUNT 195 K/uL (130-400); RBC 3.78 Mil/uL (3.80-5.20); RED CELL DISTRIBUTION WIDTH 25.6 % (11.5-14.5); WHITE BLOOD COUNT 8.6 K/uL (4.8-10.8)
[2018-04-07 06:48] LABS: ALBUMIN 2.6 g/dL (3.5-5.0); ALT/SGPT 26 U/L (9-52); AST/SGOT 19 U/L (14-36); BLOOD UREA NITROGEN 59 mg/dL (7-17); CALCIUM 8.5 mg/dl (8.6-10.4); GFR NON-AFRICAN AMERICAN > 60
[2018-04-07 08:36] LABS: ANISOCYTOSIS MODERATE; LYMPHOCYTE 2 % (20-40); MONOCYTE 4 % (0-10); NEUTROPHIL 94 % (50-75); NUCLEATED RED BLOOD CELL 2 % (0-0); PLATELET ESTIMATE NORMAL (NORMAL); TOTAL CELLS COUNTED 100
[2018-04-07 08:37] LABS: HYPOCHROMIC SLIGHT; LARGE PLATELETS PRESENT; OVALOCYTES SLIGHT; POIKILOCYTOSIS SLIGHT; TARGET CELLS SLIGHT
[2018-04-07] MEDS: Silver Sulfadiazine 1% Cream (20 gm) TOP SCH ×2 (10:00→18:00)
[2018-04-07] MEDS: Bacitracin Ointment 30 GM TUBE TOP SCH ×2 (10:00→19:03)
--- NOTE | 2018-04-07 10:39 | CP.CCUPN ---
<Margi Valenzuela - Last Filed: 04/07/18 10:22> CCU Subjective - Physician Review Subjective (Free Text): PGY-1 Critical Care Progress Note for Dr. Amador's service Patient seen and examined at bedside. Limited ROS 2/2 patient fatigue and bipap. 04/07/18 10:27 Critical Care Time Spent (in minutes): 35 CCU Objective - Vital Signs / Intake & Output Vital Signs (Last 4 hours): Vital Signs Temp Pulse Resp BP Pulse Ox 04/07/18 09:20 85 16 131/92 H 100 04/07/18 09:00 102 H 17 04/07/18 08:36 95 H 21 140/100 H 92 L 04/07/18 08:21 92 H 24 150/111 H 04/07/18 08:09 83 17 133/102 H 04/07/18 08:00 98.7 F 96 H 15 93 L 04/07/18 07:36 87 04/07/18 07:20 159/99 H 04/07/18 07:00 88 18 Intake and Output (Last 8hrs): Intake & Output 04/06/18 04/07/18 04/07/18 22:59 06:59 14:59 Intake Total 550 280 270 Output Total 600 500 100 Balance -50 -220 170 Weight 225 lb 3.2 oz Intake: Intake, IV Amount 300 50 0 Left Proximal Port 300 50 0 Internal Jugular Oral 250 230 270 Output: Urine 600 500 100 Urine, Voided 600 500 100 - Physical Exam Head: Positive for: Atraumatic, Normocephalic, Other (central line in left IJ) Pupils: Positive for: PERRL Extroacular Muscles: Positive for: EOMI Conjunctiva: Positive for: Normal Mouth: Positive for: Dry, Other (on bipap) Neck: Positive for: Normal Range of Motion. Negative for: JVD, Lymphadenopathy Respiratory/Chest: Positive for: Good Air Exchange, Decreased Breath Sounds. Negative for: Respiratory Distress, Accessory Muscle Use, Wheezes, Tachypneic Cardiovascular: Positive for: Regular Rate and Rhythm, Normal S1, S2. Negative for: Murmurs, Irregular Rhythm Abdomen: Positive for: Normal Bowel Sounds. Negative for: Tenderness, Distention, Peritoneal Signs Genitourinary/Pelvic Exam: Positive for: Other (D[place] in place for strict Is/Os) Upper Extremity: Positive for: Normal Inspection, Edema. Negative for: Cyanosis Lower Extremity: Positive for: Normal Inspection, Edema Skin: Positive for: Dry, Normal Color. Negative for: Diaphoretic - Medications Active Medications: Active Medications Generic Name Dose Route Start Last Admin Trade Name Freq PRN Reason Stop Dose Admin Acetaminophen 650 mg 03/23/18 15:59 04/02/18 04:36 Tylenol 325mg Tab PO 650 mg Q6 PRN Administration Fever >100.4 F Albuterol/Ipratropium 3 ml 04/02/18 14:00 04/07/18 07:32 Duoneb 3 Mg/0.5 Mg (3 Ml) Ud INH 3 ml RQ6 KEV Administration Amiodarone HCl 200 mg 03/23/18 16:45 04/06/18 11:09 Cordarone PO 200 mg DAILY KEV Administration Apixaban 5 mg 03/23/18 18:00 04/06/18 18:29 Eliquis PO Not Given BID KEV Ascorbic Acid 500 mg 04/02/18 10:00 04/06/18 18:28 Vitamin C 500 Mg Tab PO 500 mg BID KEV Administration Bacitracin 0 gm 04/01/18 18:00 04/06/18 18:29 Bacitracin TOP 1 applic BID KEV Administration Fluconazole 50 mls @ 100 mls/hr 03/27/18 10:00 04/06/18 11:02 Diflucan Iv 100 Mg/50 Ml Ns IVPB 100 mls/hr DAILY KEV Administration Protocol Cefepime HCl 1 gm in 50 mls @ 100 mls/hr 04/01/18 16:30 04/07/18 04:30 Maxipime Iv 1 Gm Premix IVPB 100 mls/hr Q12H KEV Administration Protocol Lactulose 20 gm 03/30/18 19:13 04/02/18 17:20 Enulose PO 20 gm HS PRN Administration Constipation Methylprednisolone 40 mg 04/02/18 09:00 04/07/18 08:40 Solu-Medrol IVP 40 mg Q8H KEV Administration Multivitamins/Vitamin C 5 ml 04/02/18 10:00 04/06/18 11:04 Multi-Delyn Liquid PO 5 ml DAILY KEV Administration Nystatin 1 applic 03/23/18 18:00 04/06/18 18:29 Nystop Topical Powder TOP 1 applic BID KEV Administration Pantoprazole Sodium 40 mg 03/27/18 10:00 04/06/18 11:03 Protonix Susp PO 40 mg DAILY KEV Administration Silver Sulfadiazine 0 ea 03/26/18 10:00 04/06/18 18:28 Silvadene 1% 20 Gm TOP 1 applic BID KEV Administration Verapamil HCl 40 mg 04/02/18 09:00 04/07/18 08:40 Calan Tab PO 40 mg Q6H KEV Administration Zinc Sulfate 220 mg 04/02/18 10:00 04/06/18 11:03 Zinc Sulfate 220 Mg Cap PO 220 mg DAILY KEV Administration - Patient Studies Lab Studies: Lab Studies 04/07/18 04/07/18 Range/Units 06:14 06:14 WBC 8.6 (4.8-10.8) K/uL RBC 3.78 L (3.80-5.20) Mil/uL Hgb 10.0 L (11.0-16.0) g/dL Hct 32.6 L (34.0-47.0) % MCV 86.2 (81.0-99.0) fL MCH 26.5 L (27.0-31.0) pg MCHC 30.8 L (33.0-37.0) g/dL RDW 25.6 H (11.5-14.5) % Plt Count 195 (130-400) K/uL MPV 10.4 (7.2-11.7) fL Neut % (Auto) 94.1 H (50.0-75.0) % Lymph % (Auto) 1.4 L (20.0-40.0) % Marion % (Auto) 4.3 (0.0-10.0) % Eos % (Auto) 0.0 (0.0-4.0) % Baso % (Auto) 0.2 (0.0-2.0) % Neut # (Auto) 8.1 H (1.8-7.0) K/uL Lymph # (Auto) 0.1 L (1.0-4.3) K/uL Marion # (Auto) 0.4 (0.0-0.8) K/uL Eos # (Auto) 0.0 (0.0-0.7) K/uL Baso # (Auto) 0.0 (0.0-0.2) K/uL Neutrophils % (Manual) 94 H (50-75) % Lymphocytes % (Manual) 2 L (20-40) % Monocytes % (Manual) 4 (0-10) % Nucleated RBC % 2 H (0-0) % Platelet Estimate Normal (NORMAL) Large Platelets Present Hypochromasia (manual) Slight Poikilocytosis (manual Slight Anisocytosis (manual) Moderate Target Cells Slight Ovalocytes Slight Sodium 140 (132-148) mmol/L Potassium 3.8 (3.6-5.2) mmol/L Chloride 105 (98-107) mmol/L Carbon Dioxide 31 H (22-30) mmol/L Anion Gap 8 L (10-20) BUN 59 H (7-17) mg/dL Creatinine 0.8 (0.7-1.2) mg/dL Est GFR ( Amer) > 60 Est GFR (Non-Af Amer) > 60 Random Glucose 248 H D (65-105) mg/dL Calcium 8.5 L (8.6-10.4) mg/dl Phosphorus 2.7 (2.5-4.5) mg/dL Magnesium 2.4 H (1.6-2.3) mg/dL Total Bilirubin 1.0 (0.2-1.3) mg/dL AST 19 (14-36) U/L ALT 26 (9-52) U/L Alkaline Phosphatase 49 (38-126) U/L Total Protein 5.2 L (6.3-8.3) g/dL Albumin 2.6 L (3.5-5.0) g/dL Globulin 2.6 (2.2-3.9) gm/dL Albumin/Globulin Ratio 1.0 (1.0-2.1) Laboratory Results - last 24 hr 04/07/18 04/07/18 06:14 06:14 WBC 8.6 RBC 3.78 L Hgb 10.0 L Hct 32.6 L MCV 86.2 MCH 26.5 L MCHC 30.8 L RDW 25.6 H Plt Count 195 MPV 10.4 Neut % (Auto) 94.1 H Lymph % (Auto) 1.4 L Marion % (Auto) 4.3 Eos % (Auto) 0.0 Baso % (Auto) 0.2 Neut # (Auto) 8.1 H Lymph # (Auto) 0.1 L Marion # (Auto) 0.4 Eos # (Auto) 0.0 Baso # (Auto) 0.0 Neutrophils % (Manual) 94 H Lymphocytes % (Manual) 2 L Monocytes % (Manual) 4 Nucleated RBC % 2 H Platelet Estimate Normal Large Platelets Present Hypochromasia (manual) Slight Poikilocytosis (manual Slight Anisocytosis (manual) Moderate Target Cells Slight Ovalocytes Slight Sodium 140 Potassium 3.8 Chloride 105 Carbon Dioxide 31 H Anion Gap 8 L BUN 59 H Creatinine 0.8 Est GFR ( Amer) > 60 Est GFR (Non-Af Amer) > 60 Random Glucose 248 H D Calcium 8.5 L Phosphorus 2.7 Magnesium 2.4 H Total Bilirubin 1.0 AST 19 ALT 26 Alkaline Phosphatase 49 Total Protein 5.2 L Albumin 2.6 L Globulin 2.6 Albumin/Globulin Ratio 1.0 Review of Systems - Review of Systems Systems not reviewed;Unavailable: Acuity of Condition Critical Care Progress Note - Extremities/Vascular Does the Patient have a Central Venous Catheter?: Yes Insertion Site: Internal Jugular Vein Does the Patient have a [place] Catheter?: Yes Does the Patient need a [place] Catheter?: Yes Catheter Insertion Criteria: Need for accurate measurement of output in critically ill patient - Prophylaxis GI Prophylaxis GI: PPI - Nutrition Nutrition: Nutrition Category Date Time Status Pureed [Dysphagia/Modified Consistency Diet] [DIET] Diets 04/02/18 Breakfast Active Assessment/Plan - Assessment and Plan (Free Text) Assessment: Patient is a 82 yo female w/ PMH of CHF, HTN, Afib on AC admitted for bilateral pleural effusions and pneumonia. Was breathing on bipap in ED however after transfer to ICU, patient decompensated only responding to painful stimuli. GCS of 6. Patient was intubated. Patient became hypotensive so central line was placed for levophed drip. s/p thoracentesis with 1100 fluid removed. Home AC restarted. Precedex and levophed dc'ed. Patient extubated and doing well. Considering thoracentesis for left side. Neuro Awake, Alerted, Oriented No acute issues Pulm Duoneb; Solumedrol Cefepime/Fluconazole s/p thoracentesis 1100ml fluid drained US guided thoracentesis for left side possible today CV Amiodarone Verapamil GI no active issues Protonix; Lactulose Heme Elqiuis bid- held in setting of procedure Renal Zinc/Multivitamins/Ascorbic acid Derm Podiatry following for foot ulcer on right- Nystatin, multipodus boots Wound care for unstagable sacral ulcer and buttock ulcer- recommendations are continued as per wound care- bacitracin Continue to monitor ID Cefepime/Fluconazole (completed 7 day course of azithromycin) + trach asp for yeast species; + urine cx for yeast species new figueredo cx negative GI ppx: Protonix DVT ppx: Elquis 5mg po bid- held; Margi Valenzuela PGY-1 Case d/w Dr. Amador <Zaheer Amador - Last Filed: 04/07/18 18:27> CCU Objective - Vital Signs / Intake & Output Vital Signs (Last 4 hours): Vital Signs Temp Pulse Resp BP Pulse Ox 04/07/18 17:02 92 H 21 128/87 95 04/07/18 17:00 98 H 26 H 94 L 04/07/18 16:00 98.6 F 90 18 93 L 04/07/18 15:20 103 H 19 148/101 H 95 04/07/18 15:00 97 H 24 96 Intake and Output (Last 8hrs): Intake & Output 04/07/18 04/07/18 04/07/18 06:59 14:59 22:59 Intake Total 280 590 60 Output Total 357 092 7059 Balance -220 490 -1210 Weight 225 lb 3.2 oz Intake: Intake, IV Amount 50 50 Left Proximal Port 50 50 Internal Jugular Oral 230 540 60 Output: Chest Tube Drainage 1270 Left Posterior Chest 1270 Urine 500 100 0 Urine, Voided 500 100 0 Stool 0 - Medications Active Medications: Active Medications Generic Name Dose Route Start Last Admin Trade Name Freq PRN Reason Stop Dose Admin Acetaminophen 650 mg 03/23/18 15:59 04/02/18 04:36 Tylenol 325mg Tab PO 650 mg Q6 PRN Administration Fever >100.4 F Albuterol/Ipratropium 3 ml 04/02/18 14:00 04/07/18 07:32 Duoneb 3 Mg/0.5 Mg (3 Ml) Ud INH 3 ml RQ6 KEV Administration Amiodarone HCl 200 mg 03/23/18 16:45 04/07/18 10:47 Cordarone PO 200 mg DAILY KEV Administration Apixaban 5 mg 03/23/18 18:00 01/02/19 10:00 Eliquis PO Not Given BID KEV Ascorbic Acid 500 mg 04/02/18 10:00 04/07/18 10:47 Vitamin C 500 Mg Tab PO 500 mg BID KEV Administration Bacitracin 0 gm 04/01/18 18:00 04/07/18 10:00 Bacitracin TOP 1 applic BID KEV Administration Fluconazole 50 mls @ 100 mls/hr 03/27/18 10:00 04/07/18 10:46 Diflucan Iv 100 Mg/50 Ml Ns IVPB 100 mls/hr DAILY KEV Administration Protocol Cefepime HCl 1 gm in 50 mls @ 100 mls/hr 04/01/18 16:30 04/07/18 17:32 Maxipime Iv 1 Gm Premix IVPB 100 mls/hr Q12H KEV Administration Protocol Lactulose 20 gm 03/30/18 19:13 04/02/18 17:20 Enulose PO 20 gm HS PRN Administration Constipation Methylprednisolone 40 mg 04/02/18 09:00 04/07/18 17:22 Solu-Medrol IVP 40 mg Q8H KEV Administration Multivitamins/Vitamin C 5 ml 04/02/18 10:00 04/07/18 10:47 Multi-Delyn Liquid PO 5 ml DAILY KEV Administration Nystatin 1 applic 03/23/18 18:00 04/07/18 10:00 Nystop Topical Powder TOP 1 applic BID KEV Administration Pantoprazole Sodium 40 mg 03/27/18 10:00 04/07/18 10:48 Protonix Susp PO 40 mg DAILY KEV Administration Silver Sulfadiazine 0 ea 03/26/18 10:00 04/06/18 18:28 Silvadene 1% 20 Gm TOP 1 applic BID KEV Administration Verapamil HCl 40 mg 04/02/18 09:00 04/07/18 14:23 Calan Tab PO 40 mg Q6H KEV Administration Zinc Sulfate 220 mg 04/02/18 10:00 04/07/18 10:47 Zinc Sulfate 220 Mg Cap PO 220 mg DAILY KEV Administration - Patient Studies Lab Studies: Lab Studies 04/07/18 04/07/18 04/07/18 Range/Units 10:47 06:14 06:14 WBC 8.6 (4.8-10.8) K/uL RBC 3.78 L (3.80-5.20) Mil/uL Hgb 10.0 L (11.0-16.0) g/dL Hct 32.6 L (34.0-47.0) % MCV 86.2 (81.0-99.0) fL MCH 26.5 L (27.0-31.0) pg MCHC 30.8 L (33.0-37.0) g/dL RDW 25.6 H (11.5-14.5) % Plt Count 195 (130-400) K/uL MPV 10.4 (7.2-11.7) fL Neut % (Auto) 94.1 H (50.0-75.0) % Lymph % (Auto) 1.4 L (20.0-40.0) % Marion % (Auto) 4.3 (0.0-10.0) % Eos % (Auto) 0.0 (0.0-4.0) % Baso % (Auto) 0.2 (0.0-2.0) % Neut # (Auto) 8.1 H (1.8-7.0) K/uL Lymph # (Auto) 0.1 L (1.0-4.3) K/uL Marion # (Auto) 0.4 (0.0-0.8) K/uL Eos # (Auto) 0.0 (0.0-0.7) K/uL Baso # (Auto) 0.0 (0.0-0.2) K/uL Neutrophils % (Manual) 94 H (50-75) % Lymphocytes % (Manual) 2 L (20-40) % Monocytes % (Manual) 4 (0-10) % Nucleated RBC % 2 H (0-0) % Platelet Estimate Normal (NORMAL) Large Platelets Present Hypochromasia (manual) Slight Poikilocytosis (manual Slight Anisocytosis (manual) Moderate Target Cells Slight Ovalocytes Slight PT 15.5 H (9.7-12.2) SECONDS INR 1.4 Sodium 140 (132-148) mmol/L Potassium 3.8 (3.6-5.2) mmol/L Chloride 105 (98-107) mmol/L Carbon Dioxide 31 H (22-30) mmol/L Anion Gap 8 L (10-20) BUN 59 H (7-17) mg/dL Creatinine 0.8 (0.7-1.2) mg/dL Est GFR ( Amer) > 60 Est GFR (Non-Af Amer) > 60 Random Glucose 248 H D (65-105) mg/dL Calcium 8.5 L (8.6-10.4) mg/dl Phosphorus 2.7 (2.5-4.5) mg/dL Magnesium 2.4 H (1.6-2.3) mg/dL Total Bilirubin 1.0 (0.2-1.3) mg/dL AST 19 (14-36) U/L ALT 26 (9-52) U/L Alkaline Phosphatase 49 (38-126) U/L Total Protein 5.2 L (6.3-8.3) g/dL Albumin 2.6 L (3.5-5.0) g/dL Globulin 2.6 (2.2-3.9) gm/dL Albumin/Globulin Ratio 1.0 (1.0-2.1) Laboratory Results - last 24 hr 04/07/18 04/07/18 04/07/18 06:14 06:14 10:47 WBC 8.6 RBC 3.78 L Hgb 10.0 L Hct 32.6 L MCV 86.2 MCH 26.5 L MCHC 30.8 L RDW 25.6 H Plt Count 195 MPV 10.4 Neut % (Auto) 94.1 H Lymph % (Auto) 1.4 L Marion % (Auto) 4.3 Eos % (Auto) 0.0 Baso % (Auto) 0.2 Neut # (Auto) 8.1 H Lymph # (Auto) 0.1 L Marion # (Auto) 0.4 Eos # (Auto) 0.0 Baso # (Auto) 0.0 Neutrophils % (Manual) 94 H Lymphocytes % (Manual) 2 L Monocytes % (Manual) 4 Nucleated RBC % 2 H Platelet Estimate Normal Large Platelets Present Hypochromasia (manual) Slight Poikilocytosis (manual Slight Anisocytosis (manual) Moderate Target Cells Slight Ovalocytes Slight PT 15.5 H INR 1.4 Sodium 140 Potassium 3.8 Chloride 105 Carbon Dioxide 31 H Anion Gap 8 L BUN 59 H Creatinine 0.8 Est GFR ( Amer) > 60 Est GFR (Non-Af Amer) > 60 Random Glucose 248 H D Calcium 8.5 L Phosphorus 2.7 Magnesium 2.4 H Total Bilirubin 1.0 AST 19 ALT 26 Alkaline Phosphatase 49 Total Protein 5.2 L Albumin 2.6 L Globulin 2.6 Albumin/Globulin Ratio 1.0 Radiology Impressions: Radiology Impressions Chest X-Ray 04/07/18 12:37 IMPRESSION: Status post pigtail catheter placement in the left pleural space. Decrease in left pleural effusion, commensurate re-expansion of the left lung. Critical Care Progress Note - Nutrition Nutrition: Nutrition Category Date Time Status Pureed [Dysphagia/Modified Consistency Diet] [DIET] Diets 04/02/18 Breakfast Active Assessment/Plan (1) Acute respiratory failure Current Visit: No Status: Acute (2) Atrial fibrillation and flutter Current Visit: No Status: Acute (3) CHF (congestive heart failure) Current Visit: No Status: Acute (4) Pleural effusion Current Visit: Yes Status: Acute Attending/Attestation - Attestation I have personally seen and examined this patient.: Yes I have fully participated in the care of the patient.: Yes I have reviewed all pertinent clinical information: Yes Notes (Text): 04/07/18 18:26 patient seen and examined in the intensive care unit. Status post pigtail catheter insertion
[2018-04-07] MEDS: Fluconazole IV 100mg/50 ml NS 50 ML IVPB SCH (10:46)
[2018-04-07] MEDS: Multiple Vitamins Oral Solution PO SCH (10:47)
[2018-04-07] MEDS: Pantoprazole 40 mg Susp UD PO SCH (10:48)
[2018-04-07 11:01] LABS: INR 1.4; PROTHROMBIN TIME 15.5 SECONDS (9.7-12.2)
--- NOTE | 2018-04-07 12:57 | CP.PCM.CON ---
Past Patient History - Infectious Disease Hx of Infectious Diseases: None - Tetanus Immunizations Tetanus Immunization: Unknown - Past Medical History & Family History Past Medical History?: Yes - Past Social History Smoking Status: Never Smoked - CARDIAC Hx Congestive Heart Failure: Yes - PULMONARY Hx Chronic Obstructive Pulmonary Disease (COPD): Yes - NEUROLOGICAL Hx Dementia: Yes - ENDOCRINE/METABOLIC Hx Endocrine Disorders: No - HEMATOLOGICAL/ONCOLOGICAL Hx Blood Disorders: No - INTEGUMENTARY Other/Comment: weeping edema, on bilateral lower ext - MUSCULOSKELETAL/RHEUMATOLOGICAL Hx Arthritis: Yes (R SH) - GASTROINTESTINAL Hx Gastrointestinal Disorders: No - GENITOURINARY/GYNECOLOGICAL Hx Genitourinary Disorders: No - PSYCHIATRIC Hx Substance Use: No - SURGICAL HISTORY Hx Surgeries: No - ANESTHESIA Hx Anesthesia: Yes Meds Allergies/Adverse Reactions: Allergies Allergy/AdvReac Type Severity Reaction Status Date / Time warfarin [From Coumadin] Allergy Verified 03/23/18 08:16 - Medications Medications: Current Medications Acetaminophen (Tylenol 325mg Tab) 650 mg PO Q6 PRN PRN Reason: Fever >100.4 F Last Admin: 04/02/18 04:36 Dose: 650 mg Albuterol/Ipratropium (Duoneb 3 Mg/0.5 Mg (3 Ml) Ud) 3 ml INH RQ6 [facility] Last Admin: 04/07/18 07:32 Dose: 3 ml Amiodarone HCl (Cordarone) 200 mg PO DAILY [facility] Last Admin: 04/07/18 10:47 Dose: 200 mg Apixaban (Eliquis) 5 mg PO BID [facility] Last Admin: 04/06/18 18:29 Dose: Not Given Ascorbic Acid (Vitamin C 500 Mg Tab) 500 mg PO BID [facility] Last Admin: 04/07/18 10:47 Dose: 500 mg Bacitracin (Bacitracin) 0 gm TOP BID [facility] Last Admin: 04/06/18 18:29 Dose: 1 applic Fluconazole (Diflucan Iv 100 Mg/50 Ml Ns) 50 mls @ 100 mls/hr IVPB DAILY [facility]; Protocol Last Admin: 04/07/18 10:46 Dose: 100 mls/hr Cefepime HCl (Maxipime Iv 1 Gm Premix) 1 gm in 50 mls @ 100 mls/hr IVPB Q12H [facility]; Protocol Last Admin: 04/07/18 04:30 Dose: 100 mls/hr Lactulose (Enulose) 20 gm PO HS PRN PRN Reason: Constipation Last Admin: 04/02/18 17:20 Dose: 20 gm Methylprednisolone (Solu-Medrol) 40 mg IVP Q8H [facility] Last Admin: 04/07/18 08:40 Dose: 40 mg Multivitamins/Vitamin C (Multi-Delyn Liquid) 5 ml PO DAILY [facility] Last Admin: 04/07/18 10:47 Dose: 5 ml Nystatin (Nystop Topical Powder) 1 applic TOP BID [facility] Last Admin: 04/06/18 18:29 Dose: 1 applic Pantoprazole Sodium (Protonix Susp) 40 mg PO DAILY [facility] Last Admin: 04/07/18 10:48 Dose: 40 mg Silver Sulfadiazine (Silvadene 1% 20 Gm) 0 ea TOP BID [facility] Last Admin: 04/06/18 18:28 Dose: 1 applic Verapamil HCl (Calan Tab) 40 mg PO Q6H [facility] Last Admin: 04/07/18 08:40 Dose: 40 mg Zinc Sulfate (Zinc Sulfate 220 Mg Cap) 220 mg PO DAILY [facility] Last Admin: 04/07/18 10:47 Dose: 220 mg Results - Vital Signs Recent Vital Signs: Last Vital Signs Temp 98.7 F 04/07/18 08:00 Pulse 85 04/07/18 09:20 Resp 16 04/07/18 09:20 BP 131/92 H 04/07/18 09:20 Pulse Ox 100 04/07/18 09:20 - Labs Result Diagrams: 04/07/18 06:14 04/07/18 06:14 Labs: Laboratory Results - last 24 hr 04/07/18 04/07/18 04/07/18 06:14 06:14 10:47 WBC 8.6 RBC 3.78 L Hgb 10.0 L Hct 32.6 L MCV 86.2 MCH 26.5 L MCHC 30.8 L RDW 25.6 H Plt Count 195 MPV 10.4 Neut % (Auto) 94.1 H Lymph % (Auto) 1.4 L [place] % (Auto) 4.3 Eos % (Auto) 0.0 Baso % (Auto) 0.2 Neut # (Auto) 8.1 H Lymph # (Auto) 0.1 L [place] # (Auto) 0.4 Eos # (Auto) 0.0 Baso # (Auto) 0.0 Neutrophils % (Manual) 94 H Lymphocytes % (Manual) 2 L Monocytes % (Manual) 4 Nucleated RBC % 2 H Platelet Estimate Normal Large Platelets Present Hypochromasia (manual) Slight Poikilocytosis (manual Slight Anisocytosis (manual) Moderate Target Cells Slight Ovalocytes Slight PT 15.5 H INR 1.4 Sodium 140 Potassium 3.8 Chloride 105 Carbon Dioxide 31 H Anion Gap 8 L BUN 59 H Creatinine 0.8 Est GFR ( Amer) > 60 Est GFR (Non-Af Amer) > 60 Random Glucose 248 H D Calcium 8.5 L Phosphorus 2.7 Magnesium 2.4 H Total Bilirubin 1.0 AST 19 ALT 26 Alkaline Phosphatase 49 Total Protein 5.2 L Albumin 2.6 L Globulin 2.6 Albumin/Globulin Ratio 1.0
--- NOTE | 2018-04-07 14:59 | CP.PCM.PN ---
Subjective - Date & Time of Evaluation Date of Evaluation: 04/07/18 Time of Evaluation: 14:56 - Subjective Subjective: Podiatry Progress Note- Dr. Shah 82 y/o female seen and evaluated at bedside with attending Dr. Shah for RLE wounds. Pt's daughter is at bedside at time of visit. Per daughter, no acute events overnight and no new pedal complaints. No F/C/N/V/CP/SOB Objective - Vital Signs/Intake and Output Vital Signs (last 24 hours): Temp Pulse Resp BP Pulse Ox 98.5 F 96 H 26 H 145/99 H 95 04/07/18 12:00 04/07/18 14:00 04/07/18 14:00 04/07/18 13:20 04/07/18 14:00 Intake and Output: 04/07/18 04/07/18 06:59 18:59 Intake Total 280 590 Output Total 1100 100 Balance -820 490 - Medications Medications: Current Medications Acetaminophen (Tylenol 325mg Tab) 650 mg PO Q6 PRN PRN Reason: Fever >100.4 F Last Admin: 04/02/18 04:36 Dose: 650 mg Albuterol/Ipratropium (Duoneb 3 Mg/0.5 Mg (3 Ml) Ud) 3 ml INH RQ6 [facility] Last Admin: 04/07/18 07:32 Dose: 3 ml Amiodarone HCl (Cordarone) 200 mg PO DAILY [facility] Last Admin: 04/07/18 10:47 Dose: 200 mg Apixaban (Eliquis) 5 mg PO BID [facility] Last Admin: 04/07/18 14:29 Dose: Not Given Ascorbic Acid (Vitamin C 500 Mg Tab) 500 mg PO BID [facility] Last Admin: 04/07/18 10:47 Dose: 500 mg Bacitracin (Bacitracin) 0 gm TOP BID [facility] Last Admin: 04/07/18 10:00 Dose: 1 applic Fluconazole (Diflucan Iv 100 Mg/50 Ml Ns) 50 mls @ 100 mls/hr IVPB DAILY [facility]; Protocol Last Admin: 04/07/18 10:46 Dose: 100 mls/hr Cefepime HCl (Maxipime Iv 1 Gm Premix) 1 gm in 50 mls @ 100 mls/hr IVPB Q12H [facility]; Protocol Last Admin: 04/07/18 04:30 Dose: 100 mls/hr Lactulose (Enulose) 20 gm PO HS PRN PRN Reason: Constipation Last Admin: 04/02/18 17:20 Dose: 20 gm Methylprednisolone (Solu-Medrol) 40 mg IVP Q8H [facility] Last Admin: 04/07/18 08:40 Dose: 40 mg Multivitamins/Vitamin C (Multi-Delyn Liquid) 5 ml PO DAILY [facility] Last Admin: 04/07/18 10:47 Dose: 5 ml Nystatin (Nystop Topical Powder) 1 applic TOP BID [facility] Last Admin: 04/07/18 10:00 Dose: 1 applic Pantoprazole Sodium (Protonix Susp) 40 mg PO DAILY [facility] Last Admin: 04/07/18 10:48 Dose: 40 mg Silver Sulfadiazine (Silvadene 1% 20 Gm) 0 ea TOP BID [facility] Last Admin: 04/06/18 18:28 Dose: 1 applic Verapamil HCl (Calan Tab) 40 mg PO Q6H [facility] Last Admin: 04/07/18 14:23 Dose: 40 mg Zinc Sulfate (Zinc Sulfate 220 Mg Cap) 220 mg PO DAILY [facility] Last Admin: 04/07/18 10:47 Dose: 220 mg - Labs Labs: 04/07/18 06:14 04/07/18 06:14 PT 15.5 SECONDS (9.7-12.2) H 04/07/18 10:47 INR 1.4 04/07/18 10:47 APTT 34 SECONDS (21-34) 03/31/18 06:13 - Constitutional Appears: Well, Non-toxic, No Acute Distress - Extremities Exam Additional comments: Lower extremity focused exam: Dressings to RLE clean, dry and intact Hayden bandage to LLE No strikethrough noted - Neurological Exam Neurological Exam: Alert, Awake - Psychiatric Exam Psychiatric exam: Normal Affect, Normal Mood Assessment and Plan - Assessment and Plan (Free Text) Assessment: 82 y/o with right foot decubitus heel ulceration, stable Plan: Patient seen and evaluated with attending Dr. Shah No leukocytosis, afebrile Wound dressings left intact at this time Continue multipodus boots at all times in bed Podiatry will continue to follow
--- NOTE | 2018-04-07 15:53 | CP.PCM.PN ---
Subjective - Date & Time of Evaluation Date of Evaluation: 04/07/18 Time of Evaluation: 08:00 - Subjective Subjective: improving s/p left Chest Tube afeb more alert Objective - Vital Signs/Intake and Output Vital Signs (last 24 hours): Temp Pulse Resp BP Pulse Ox 98.5 F 97 H 24 154/101 H 96 04/07/18 12:00 04/07/18 15:00 04/07/18 15:00 04/07/18 14:20 04/07/18 15:00 Intake and Output: 04/07/18 04/07/18 06:59 18:59 Intake Total 280 590 Output Total 1100 100 Balance -820 490 - Medications Medications: Current Medications Acetaminophen (Tylenol 325mg Tab) 650 mg PO Q6 PRN PRN Reason: Fever >100.4 F Last Admin: 04/02/18 04:36 Dose: 650 mg Albuterol/Ipratropium (Duoneb 3 Mg/0.5 Mg (3 Ml) Ud) 3 ml INH RQ6 [facility] Last Admin: 04/07/18 07:32 Dose: 3 ml Amiodarone HCl (Cordarone) 200 mg PO DAILY [facility] Last Admin: 04/07/18 10:47 Dose: 200 mg Apixaban (Eliquis) 5 mg PO BID [facility] Last Admin: 04/07/18 10:00 Dose: Not Given Ascorbic Acid (Vitamin C 500 Mg Tab) 500 mg PO BID [facility] Last Admin: 04/07/18 10:47 Dose: 500 mg Bacitracin (Bacitracin) 0 gm TOP BID [facility] Last Admin: 04/07/18 10:00 Dose: 1 applic Fluconazole (Diflucan Iv 100 Mg/50 Ml Ns) 50 mls @ 100 mls/hr IVPB DAILY [facility]; Protocol Last Admin: 04/07/18 10:46 Dose: 100 mls/hr Cefepime HCl (Maxipime Iv 1 Gm Premix) 1 gm in 50 mls @ 100 mls/hr IVPB Q12H [facility]; Protocol Last Admin: 04/07/18 04:30 Dose: 100 mls/hr Lactulose (Enulose) 20 gm PO HS PRN PRN Reason: Constipation Last Admin: 04/02/18 17:20 Dose: 20 gm Methylprednisolone (Solu-Medrol) 40 mg IVP Q8H [facility] Last Admin: 04/07/18 08:40 Dose: 40 mg Multivitamins/Vitamin C (Multi-Delyn Liquid) 5 ml PO DAILY [facility] Last Admin: 04/07/18 10:47 Dose: 5 ml Nystatin (Nystop Topical Powder) 1 applic TOP BID [facility] Last Admin: 04/07/18 10:00 Dose: 1 applic Pantoprazole Sodium (Protonix Susp) 40 mg PO DAILY [facility] Last Admin: 04/07/18 10:48 Dose: 40 mg Silver Sulfadiazine (Silvadene 1% 20 Gm) 0 ea TOP BID [facility] Last Admin: 04/06/18 18:28 Dose: 1 applic Verapamil HCl (Calan Tab) 40 mg PO Q6H [facility] Last Admin: 04/07/18 14:23 Dose: 40 mg Zinc Sulfate (Zinc Sulfate 220 Mg Cap) 220 mg PO DAILY [facility] Last Admin: 04/07/18 10:47 Dose: 220 mg - Labs Labs: 04/07/18 06:14 04/07/18 06:14 PT 15.5 SECONDS (9.7-12.2) H 04/07/18 10:47 INR 1.4 04/07/18 10:47 APTT 34 SECONDS (21-34) 03/31/18 06:13 - Constitutional Appears: Non-toxic, Chronically Ill - Head Exam Head Exam: NORMOCEPHALIC - Eye Exam Eye Exam: absent: Scleral icterus - ENT Exam ENT Exam: Mucous Membranes Dry - Neck Exam Neck Exam: absent: Lymphadenopathy - Respiratory Exam Respiratory Exam: Decreased Breath Sounds - Cardiovascular Exam Cardiovascular Exam: REGULAR RHYTHM - GI/Abdominal Exam GI & Abdominal Exam: Distended, Soft - Rectal Exam Rectal Exam: Deferred - Exam Exam: NORMAL INSPECTION - Extremities Exam Extremities Exam: Pedal Edema - Back Exam Back Exam: absent: CVA tenderness (L), CVA tenderness (R) - Neurological Exam Neurological Exam: Alert, Awake Assessment and Plan (1) Acute respiratory failure Status: Acute (2) Atrial fibrillation and flutter Status: Acute (3) CHF (congestive heart failure) Status: Acute (4) Pleural effusion Status: Acute - Assessment and Plan (Free Text) Assessment: cont rx as per Dr Amador
--- NOTE | 2018-04-07 15:53 | RAD ---
Date of service: 04/07/2018 HISTORY: chest tube placement COMPARISON: April 06, 2018. FINDINGS: LUNGS: Improved aeration of the left lung following chest tube placement and retrieval of fluid from the left pleural space. Stable consolidative changes in the right lung primarily right lower lobe inseparable from right pleural effusion. PLEURA: Substantial decrease in left pleural effusion. No visible pneumothorax. Stable right pleural effusion. CARDIOVASCULAR: No atherosclerotic calcification present Cardiomegaly. Venous access catheter in stable, satisfactory position. OSSEOUS STRUCTURES: No significant abnormalities. VISUALIZED UPPER ABDOMEN: Normal. OTHER FINDINGS: None. IMPRESSION: Status post pigtail catheter placement in the left pleural space. Decrease in left pleural effusion, commensurate re-expansion of the left lung.
[2018-04-08] MEDS: Albuterol-Ipratrop 3 mg / 0.5 (3 ml) UD INH SCH ×4 (02:08→19:26)
[2018-04-08] MEDS: MethylPREDNISolone 40 mg Vial IVP SCH ×2 (02:53→10:09)
[2018-04-08] MEDS: Cefepime IV 1 gm in Dextrose 1 GM/50 ML BAG IVPB SCH ×2 (03:32→16:47)
[2018-04-08 06:38] LABS: HEMOGLOBIN 10.4 g/dL (11.0-16.0); LYMPH # 0.1 K/uL (1.0-4.3); LYMPH % 1.7 % (20.0-40.0); MEAN CELL VOLUME 85.3 fL (81.0-99.0); MEAN CORPUSCULAR HEMOGLOBIN 26.5 pg (27.0-31.0); MEAN CORPUSCULAR HGB CONC 31.1 g/dL (33.0-37.0); MEAN PLATELET VOLUME 10.2 fL (7.2-11.7); MONO # 0.7 K/uL (0.0-0.8); MONO % 7.6 % (0.0-10.0); NEUT % 90.7 % (50.0-75.0); NRBC % 0.3 % (0.0-2.0); PLATELET COUNT 220 K/uL (130-400); RBC 3.91 Mil/uL (3.80-5.20); RED CELL DISTRIBUTION WIDTH 26.3 % (11.5-14.5); WHITE BLOOD COUNT 8.8 K/uL (4.8-10.8)
[2018-04-08 06:54] LABS: ALBUMIN 2.4 g/dL (3.5-5.0); ALT/SGPT 25 U/L (9-52); AST/SGOT 10 U/L (14-36); BLOOD UREA NITROGEN 56 mg/dL (7-17); CALCIUM 8.3 mg/dl (8.6-10.4); GFR NON-AFRICAN AMERICAN > 60
--- NOTE | 2018-04-08 07:33 | CP.CCUPN ---
<Margi Valenzuela - Last Filed: 04/08/18 11:45> CCU Subjective - Physician Review Events Since Last Encounter (Free Text): 04/08/18 07:30 TLC in IJ removed; PICC Line added Subjective (Free Text): PGY-1 Critical Care Progress Note for Dr. Valadez's service Patient seen and examined at bedside. Patient offers no acute complaints. Patient denies fevers, chills, chest pain, sob, n/v, constipation or diarrhea, and dysuria. 04/08/18 11:49 Critical Care Time Spent (in minutes): 35 CCU Objective - Vital Signs / Intake & Output Vital Signs (Last 4 hours): Vital Signs Temp Pulse Resp BP Pulse Ox 04/08/18 06:07 129/88 04/08/18 06:06 97 H 16 96 04/08/18 05:30 89 19 132/95 H 94 L 04/08/18 04:06 87 15 140/107 H 95 04/08/18 04:00 98 F Intake and Output (Last 8hrs): Intake & Output 04/07/18 04/08/18 04/08/18 22:59 06:59 14:59 Intake Total 220 150 Output Total 1390 710 Balance -1170 -560 Weight 230 lb Intake: Intake, IV Amount 50 50 Right arm mid line 50 50 Oral 170 100 Output: Chest Tube Drainage 1390 210 Left Posterior Chest 1390 210 Urine 0 500 Urine, Voided 0 500 Stool 0 - Physical Exam Head: Positive for: Atraumatic, Normocephalic, Other (central line in left IJ) Pupils: Positive for: PERRL Extroacular Muscles: Positive for: EOMI Conjunctiva: Positive for: Normal Mouth: Positive for: Dry, Other (on bipap) Neck: Positive for: Normal Range of Motion. Negative for: JVD, Lymphadenopathy Respiratory/Chest: Positive for: Decreased Breath Sounds. Negative for: Respiratory Distress, Accessory Muscle Use, Wheezes, Tachypneic Cardiovascular: Positive for: Regular Rate and Rhythm, Normal S1, S2. Negative for: Murmurs, Irregular Rhythm Abdomen: Positive for: Normal Bowel Sounds. Negative for: Tenderness, Distention, Peritoneal Signs Upper Extremity: Positive for: Normal Inspection, Edema. Negative for: Cyanosis Lower Extremity: Positive for: Normal Inspection, Edema Neurological: Positive for: GCS=15 Skin: Positive for: Dry, Normal Color, Other (chest tube in posterior left back). Negative for: Diaphoretic Psychiatric: Positive for: Alert, Oriented x 3 - Medications Active Medications: Active Medications Generic Name Dose Route Start Last Admin Trade Name Freq PRN Reason Stop Dose Admin Acetaminophen 650 mg 03/23/18 15:59 04/02/18 04:36 Tylenol 325mg Tab PO 650 mg Q6 PRN Administration Fever >100.4 F Albuterol/Ipratropium 3 ml 04/02/18 14:00 04/08/18 02:08 Duoneb 3 Mg/0.5 Mg (3 Ml) Ud INH 3 ml RQ6 KEV Administration Amiodarone HCl 200 mg 03/23/18 16:45 04/07/18 10:47 Cordarone PO 200 mg DAILY KEV Administration Apixaban 5 mg 03/23/18 18:00 04/07/18 18:50 Eliquis PO 5 mg BID KEV Administration Ascorbic Acid 500 mg 04/02/18 10:00 04/07/18 18:50 Vitamin C 500 Mg Tab PO 500 mg BID KEV Administration Bacitracin 0 gm 04/01/18 18:00 04/07/18 19:03 Bacitracin TOP 1 applic BID KEV Administration Fluconazole 50 mls @ 100 mls/hr 03/27/18 10:00 04/07/18 10:46 Diflucan Iv 100 Mg/50 Ml Ns IVPB 100 mls/hr DAILY KEV Administration Protocol Cefepime HCl 1 gm in 50 mls @ 100 mls/hr 04/01/18 16:30 04/08/18 03:32 Maxipime Iv 1 Gm Premix IVPB 100 mls/hr Q12H KEV Administration Protocol Lactulose 20 gm 03/30/18 19:13 04/02/18 17:20 Enulose PO 20 gm HS PRN Administration Constipation Methylprednisolone 40 mg 04/02/18 09:00 04/08/18 02:53 Solu-Medrol IVP 40 mg Q8H KEV Administration Multivitamins/Vitamin C 5 ml 04/02/18 10:00 04/07/18 10:47 Multi-Delyn Liquid PO 5 ml DAILY KEV Administration Nystatin 1 applic 03/23/18 18:00 04/07/18 19:02 Nystop Topical Powder TOP 1 applic BID KEV Administration Pantoprazole Sodium 40 mg 03/27/18 10:00 04/07/18 10:48 Protonix Susp PO 40 mg DAILY KEV Administration Silver Sulfadiazine 0 ea 03/26/18 10:00 04/07/18 18:00 Silvadene 1% 20 Gm TOP Not Given BID KEV Verapamil HCl 40 mg 04/02/18 09:00 04/08/18 02:53 Calan Tab PO 40 mg Q6H KEV Administration Zinc Sulfate 220 mg 04/02/18 10:00 04/07/18 10:47 Zinc Sulfate 220 Mg Cap PO 220 mg DAILY KEV Administration - Patient Studies Lab Studies: Lab Studies 04/08/18 04/08/18 04/07/18 Range/Units 06:26 06:26 10:47 WBC 8.8 (4.8-10.8) K/uL RBC 3.91 (3.80-5.20) Mil/uL Hgb 10.4 L (11.0-16.0) g/dL Hct 33.4 L (34.0-47.0) % MCV 85.3 (81.0-99.0) fL MCH 26.5 L (27.0-31.0) pg MCHC 31.1 L (33.0-37.0) g/dL RDW 26.3 H (11.5-14.5) % Plt Count 220 (130-400) K/uL MPV 10.2 (7.2-11.7) fL Neut % (Auto) 90.7 H (50.0-75.0) % Lymph % (Auto) 1.7 L (20.0-40.0) % Bradford % (Auto) 7.6 (0.0-10.0) % Eos % (Auto) 0.0 (0.0-4.0) % Baso % (Auto) 0.0 (0.0-2.0) % Neut # (Auto) 8.0 H (1.8-7.0) K/uL Lymph # (Auto) 0.1 L (1.0-4.3) K/uL Bradford # (Auto) 0.7 (0.0-0.8) K/uL Eos # (Auto) 0.0 (0.0-0.7) K/uL Baso # (Auto) 0.0 (0.0-0.2) K/uL Neutrophils % (Manual) (50-75) % Lymphocytes % (Manual) (20-40) % Monocytes % (Manual) (0-10) % Nucleated RBC % (0-0) % Platelet Estimate (NORMAL) Large Platelets Hypochromasia (manual) Poikilocytosis (manual Anisocytosis (manual) Target Cells Ovalocytes PT 15.5 H (9.7-12.2) SECONDS INR 1.4 Sodium 138 (132-148) mmol/L Potassium 3.8 (3.6-5.2) mmol/L Chloride 102 (98-107) mmol/L Carbon Dioxide 30 (22-30) mmol/L Anion Gap 9 L (10-20) BUN 56 H (7-17) mg/dL Creatinine 0.6 L (0.7-1.2) mg/dL Est GFR ( Amer) > 60 Est GFR (Non-Af Amer) > 60 Random Glucose 255 H (65-105) mg/dL Calcium 8.3 L (8.6-10.4) mg/dl Phosphorus 2.5 (2.5-4.5) mg/dL Magnesium 2.4 H (1.6-2.3) mg/dL Total Bilirubin 1.1 (0.2-1.3) mg/dL AST 10 L D (14-36) U/L ALT 25 (9-52) U/L Alkaline Phosphatase 50 (38-126) U/L Total Protein 4.9 L (6.3-8.3) g/dL Albumin 2.4 L (3.5-5.0) g/dL Globulin 2.4 (2.2-3.9) gm/dL Albumin/Globulin Ratio 1.0 (1.0-2.1) 04/07/18 Range/Units 06:14 WBC (4.8-10.8) K/uL RBC (3.80-5.20) Mil/uL Hgb (11.0-16.0) g/dL Hct (34.0-47.0) % MCV (81.0-99.0) fL MCH (27.0-31.0) pg MCHC (33.0-37.0) g/dL RDW (11.5-14.5) % Plt Count (130-400) K/uL MPV (7.2-11.7) fL Neut % (Auto) (50.0-75.0) % Lymph % (Auto) (20.0-40.0) % Bradford % (Auto) (0.0-10.0) % Eos % (Auto) (0.0-4.0) % Baso % (Auto) (0.0-2.0) % Neut # (Auto) (1.8-7.0) K/uL Lymph # (Auto) (1.0-4.3) K/uL Bradford # (Auto) (0.0-0.8) K/uL Eos # (Auto) (0.0-0.7) K/uL Baso # (Auto) (0.0-0.2) K/uL Neutrophils % (Manual) 94 H (50-75) % Lymphocytes % (Manual) 2 L (20-40) % Monocytes % (Manual) 4 (0-10) % Nucleated RBC % 2 H (0-0) % Platelet Estimate Normal (NORMAL) Large Platelets Present Hypochromasia (manual) Slight Poikilocytosis (manual Slight Anisocytosis (manual) Moderate Target Cells Slight Ovalocytes Slight PT (9.7-12.2) SECONDS INR Sodium (132-148) mmol/L Potassium (3.6-5.2) mmol/L Chloride (98-107) mmol/L Carbon Dioxide (22-30) mmol/L Anion Gap (10-20) BUN (7-17) mg/dL Creatinine (0.7-1.2) mg/dL Est GFR ( Amer) Est GFR (Non-Af Amer) Random Glucose (65-105) mg/dL Calcium (8.6-10.4) mg/dl Phosphorus (2.5-4.5) mg/dL Magnesium (1.6-2.3) mg/dL Total Bilirubin (0.2-1.3) mg/dL AST (14-36) U/L ALT (9-52) U/L Alkaline Phosphatase (38-126) U/L Total Protein (6.3-8.3) g/dL Albumin (3.5-5.0) g/dL Globulin (2.2-3.9) gm/dL Albumin/Globulin Ratio (1.0-2.1) Laboratory Results - last 24 hr 04/07/18 04/07/18 04/08/18 06:14 10:47 06:26 WBC 8.8 RBC 3.91 Hgb 10.4 L Hct 33.4 L MCV 85.3 MCH 26.5 L MCHC 31.1 L RDW 26.3 H Plt Count 220 MPV 10.2 Neut % (Auto) 90.7 H Lymph % (Auto) 1.7 L Bradford % (Auto) 7.6 Eos % (Auto) 0.0 Baso % (Auto) 0.0 Neut # (Auto) 8.0 H Lymph # (Auto) 0.1 L Bradford # (Auto) 0.7 Eos # (Auto) 0.0 Baso # (Auto) 0.0 Neutrophils % (Manual) 94 H Lymphocytes % (Manual) 2 L Monocytes % (Manual) 4 Nucleated RBC % 2 H Platelet Estimate Normal Large Platelets Present Hypochromasia (manual) Slight Poikilocytosis (manual Slight Anisocytosis (manual) Moderate Target Cells Slight Ovalocytes Slight PT 15.5 H INR 1.4 Sodium Potassium Chloride Carbon Dioxide Anion Gap BUN Creatinine Est GFR ( Amer) Est GFR (Non-Af Amer) Random Glucose Calcium Phosphorus Magnesium Total Bilirubin AST ALT Alkaline Phosphatase Total Protein Albumin Globulin Albumin/Globulin Ratio 04/08/18 06:26 WBC RBC Hgb Hct MCV MCH MCHC RDW Plt Count MPV Neut % (Auto) Lymph % (Auto) Bradford % (Auto) Eos % (Auto) Baso % (Auto) Neut # (Auto) Lymph # (Auto) Bradford # (Auto) Eos # (Auto) Baso # (Auto) Neutrophils % (Manual) Lymphocytes % (Manual) Monocytes % (Manual) Nucleated RBC % Platelet Estimate Large Platelets Hypochromasia (manual) Poikilocytosis (manual Anisocytosis (manual) Target Cells Ovalocytes PT INR Sodium 138 Potassium 3.8 Chloride 102 Carbon Dioxide 30 Anion Gap 9 L BUN 56 H Creatinine 0.6 L Est GFR ( Amer) > 60 Est GFR (Non-Af Amer) > 60 Random Glucose 255 H Calcium 8.3 L Phosphorus 2.5 Magnesium 2.4 H Total Bilirubin 1.1 AST 10 L D ALT 25 Alkaline Phosphatase 50 Total Protein 4.9 L Albumin 2.4 L Globulin 2.4 Albumin/Globulin Ratio 1.0 Radiology Impressions: Radiology Impressions Chest X-Ray 04/07/18 12:37 IMPRESSION: Status post pigtail catheter placement in the left pleural space. Decrease in left pleural effusion, commensurate re-expansion of the left lung. Review of Systems - Review of Systems Review of Systems: 12 point ROS obtained and noted in HPI Critical Care Progress Note - Extremities/Vascular Does the Patient have a Central Venous Catheter?: No Does the Patient have a [place] Catheter?: No - Prophylaxis GI Prophylaxis GI: PPI - Nutrition Nutrition: Nutrition Category Date Time Status Pureed [Dysphagia/Modified Consistency Diet] [DIET] Diets 04/02/18 Breakfast Active Assessment/Plan - Assessment and Plan (Free Text) Assessment: Patient is a 82 yo female w/ PMH of CHF, HTN, Afib on AC admitted for bilateral pleural effusions and pneumonia. Was breathing on bipap in ED however after transfer to ICU, patient decompensated only responding to painful stimuli. GCS of 6. Patient was intubated. Patient became hypotensive so central line was placed for levophed drip. s/p thoracentesis with 1100 fluid removed. Home AC res tarted. Precedex and levophed dc'ed. Patient extubated and doing well. s/p chest tube insertion on 04/07/18 with 1600 ml drained day 1. Repeat Cxray shows bilateral pleural effusions. May need chest tube for prolonged amount of days for recurrent effusion Neuro Awake, Alerted, Oriented No acute issues Pulm Duoneb; Solumedrol decreased to 20bid Cefepime/Fluconazole (start dates 04/01 and 03/27 respectively); Will discuss with ID for possible dc of abx in setting of negative cx, afebrile, and no wbc s/p thoracentesis 1100ml fluid drained- right s/p chest tube insertion on 04/07/18 with 1600 drained first day then clamped; further management as per pumonology for when to remove CV Amiodarone Verapamil Eliquis EKG pending GI no active issues Protonix; Lactulose Pending prealbumin level As per dietary ensure will be three times a day Heme Elqiuis bid Renal Zinc/Multivitamins/Ascorbic acid Derm Podiatry following for foot ulcer on right- Nystatin, multipodus boots Wound care for unstagable sacral ulcer and buttock ulcer- recommendations are continued as per wound care- bacitracin Continue to monitor ID Cefepime/Fluconazole (completed 7 day course of azithromycin) + trach asp for yeast species; + urine cx for yeast species new figueredo cx negative GI ppx: Protonix DVT ppx: Elquis 5mg po bid Disposition: As per pulm for chest tube management for recurrent effusion; Light's criteria suggestive of exudative effusion with pleural protein > .5 and pleural LDH > 2/3 * upper limit of normal of serum LDH (190) Margi Valenzuela PGY-1 Case d/w Dr. Valadez <Evan Valadez M - Last Filed: 04/08/18 16:07> CCU Objective - Vital Signs / Intake & Output Vital Signs (Last 4 hours): Vital Signs Pulse 04/08/18 14:23 96 H 04/08/18 12:30 96 H Intake and Output (Last 8hrs): Intake & Output 04/08/18 04/08/18 04/08/18 06:59 14:59 22:59 Intake Total 150 0 Output Total 710 Balance -560 0 Weight 230 lb Intake: Intake, IV Amount 50 Right arm mid line 50 Oral 100 0 Output: Chest Tube Drainage 210 Left Posterior Chest 210 Urine 500 Urine, Voided 500 - Medications Active Medications: Active Medications Generic Name Dose Route Start Last Admin Trade Name Freq PRN Reason Stop Dose Admin Acetaminophen 650 mg 03/23/18 15:59 04/02/18 04:36 Tylenol 325mg Tab PO 650 mg Q6 PRN Administration Fever >100.4 F Albuterol/Ipratropium 3 ml 04/02/18 14:00 04/08/18 13:50 Duoneb 3 Mg/0.5 Mg (3 Ml) Ud INH 3 ml RQ6 KEV Administration Amiodarone HCl 200 mg 03/23/18 16:45 04/08/18 09:47 Cordarone PO 200 mg DAILY KEV Administration Apixaban 5 mg 03/23/18 18:00 04/08/18 09:47 Eliquis PO 5 mg BID KEV Administration Ascorbic Acid 500 mg 04/02/18 10:00 04/08/18 09:48 Vitamin C 500 Mg Tab PO 500 mg BID KEV Administration Bacitracin 0 gm 04/01/18 18:00 04/07/18 19:03 Bacitracin TOP 1 applic BID KEV Administration Fluconazole 50 mls @ 100 mls/hr 12/22/18 10:00 04/08/18 10:17 Diflucan Iv 100 Mg/50 Ml Ns IVPB 100 mls/hr DAILY KEV Administration Protocol Cefepime HCl 1 gm in 50 mls @ 100 mls/hr 04/01/18 16:30 04/08/18 03:32 Maxipime Iv 1 Gm Premix IVPB 100 mls/hr Q12H KEV Administration Protocol Lactulose 20 gm 03/30/18 19:13 04/02/18 17:20 Enulose PO 20 gm HS PRN Administration Constipation Methylprednisolone 20 mg 04/08/18 10:00 04/08/18 10:09 Solu-Medrol IVP 20 mg BID KEV Administration Multivitamins/Vitamin C 5 ml 04/02/18 10:00 04/08/18 09:47 Multi-Delyn Liquid PO 5 ml DAILY KEV Administration Nystatin 1 applic 03/23/18 18:00 04/07/18 19:02 Nystop Topical Powder TOP 1 applic BID KEV Administration Pantoprazole Sodium 40 mg 03/27/18 10:00 04/08/18 09:48 Protonix Susp PO 40 mg DAILY KEV Administration Silver Sulfadiazine 0 ea 03/26/18 10:00 04/07/18 18:00 Silvadene 1% 20 Gm TOP Not Given BID KEV Verapamil HCl 40 mg 04/02/18 09:00 04/08/18 09:47 Calan Tab PO 40 mg Q6H KEV Administration Zinc Sulfate 220 mg 04/02/18 10:00 04/08/18 09:47 Zinc Sulfate 220 Mg Cap PO 220 mg DAILY KEV Administration - Patient Studies Lab Studies: Lab Studies 04/08/18 04/08/18 04/08/18 Range/Units 11:45 09:52 06:26 WBC (4.8-10.8) K/uL RBC (3.80-5.20) Mil/uL Hgb (11.0-16.0) g/dL Hct (34.0-47.0) % MCV (81.0-99.0) fL MCH (27.0-31.0) pg MCHC (33.0-37.0) g/dL RDW (11.5-14.5) % Plt Count (130-400) K/uL MPV (7.2-11.7) fL Neut % (Auto) (50.0-75.0) % Lymph % (Auto) (20.0-40.0) % Bradford % (Auto) (0.0-10.0) % Eos % (Auto) (0.0-4.0) % Baso % (Auto) (0.0-2.0) % Neut # (Auto) (1.8-7.0) K/uL Lymph # (Auto) (1.0-4.3) K/uL Bradford # (Auto) (0.0-0.8) K/uL Eos # (Auto) (0.0-0.7) K/uL Baso # (Auto) (0.0-0.2) K/uL Neutrophils % (Manual) (50-75) % Band Neutrophils % (0-2) % Lymphocytes % (Manual) (20-40) % Monocytes % (Manual) (0-10) % Platelet Estimate (NORMAL) Large Platelets Hypochromasia (manual) Poikilocytosis (manual Anisocytosis (manual) Target Cells Ovalocytes Puncture Site Lb pCO2 48 H (35-45) mm/Hg pO2 67 L (80-100) mm/Hg HCO3 28.6 H (21-28) mmol/L ABG pH 7.41 (7.35-7.45) ABG Total CO2 31.9 H (22-28) mmol/L ABG O2 Saturation 96.2 (95-98) % ABG Base Excess 4.8 H (-2.0-3.0) mmol/L Pawel Test Na ABG Potassium 3.5 L (3.6-5.2) mmol/L A-a O2 Difference 158.0 mm/Hg Respiratory Index 2.4 Glucose 247 H (65-105) mg/dl Lactate 2.2 H (0.7-2.1) mmol/L FiO2 40 % Sodium 143.0 138 (132-148) mmol/L Potassium 3.8 (3.6-5.2) mmol/L Chloride 108.0 H 102 (98-107) mmol/L Carbon Dioxide 30 (22-30) mmol/L Anion Gap 9 L (10-20) BUN 56 H (7-17) mg/dL Creatinine 0.6 L (0.7-1.2) mg/dL Est GFR ( Amer) > 60 Est GFR (Non-Af Amer) > 60 POC Glucose (mg/dL) 328 H (65-110) mg/dL Random Glucose 255 H (65-105) mg/dL Calcium 8.3 L (8.6-10.4) mg/dl Phosphorus 2.5 (2.5-4.5) mg/dL Magnesium 2.4 H (1.6-2.3) mg/dL Total Bilirubin 1.1 (0.2-1.3) mg/dL AST 10 L D (14-36) U/L ALT 25 (9-52) U/L Alkaline Phosphatase 50 (38-126) U/L Total Protein 4.9 L (6.3-8.3) g/dL Albumin 2.4 L (3.5-5.0) g/dL Globulin 2.4 (2.2-3.9) gm/dL Albumin/Globulin Ratio 1.0 (1.0-2.1) Arterial Blood Potassium 3.5 L (3.6-5.2) mmol/L 04/08/18 Range/Units 06:26 WBC 8.8 (4.8-10.8) K/uL RBC 3.91 (3.80-5.20) Mil/uL Hgb 10.4 L (11.0-16.0) g/dL Hct 33.4 L (34.0-47.0) % MCV 85.3 (81.0-99.0) fL MCH 26.5 L (27.0-31.0) pg MCHC 31.1 L (33.0-37.0) g/dL RDW 26.3 H (11.5-14.5) % Plt Count 220 (130-400) K/uL MPV 10.2 (7.2-11.7) fL Neut % (Auto) 90.7 H (50.0-75.0) % Lymph % (Auto) 1.7 L (20.0-40.0) % Bradford % (Auto) 7.6 (0.0-10.0) % Eos % (Auto) 0.0 (0.0-4.0) % Baso % (Auto) 0.0 (0.0-2.0) % Neut # (Auto) 8.0 H (1.8-7.0) K/uL Lymph # (Auto) 0.1 L (1.0-4.3) K/uL Bradford # (Auto) 0.7 (0.0-0.8) K/uL Eos # (Auto) 0.0 (0.0-0.7) K/uL Baso # (Auto) 0.0 (0.0-0.2) K/uL Neutrophils % (Manual) 93 H (50-75) % Band Neutrophils % 1 (0-2) % Lymphocytes % (Manual) 2 L (20-40) % Monocytes % (Manual) 4 (0-10) % Platelet Estimate Normal (NORMAL) Large Platelets Present Hypochromasia (manual) Slight Poikilocytosis (manual Slight Anisocytosis (manual) Moderate Target Cells Slight Ovalocytes Slight Puncture Site pCO2 (35-45) mm/Hg pO2 (80-100) mm/Hg HCO3 (21-28) mmol/L ABG pH (7.35-7.45) ABG Total CO2 (22-28) mmol/L ABG O2 Saturation (95-98) % ABG Base Excess (-2.0-3.0) mmol/L Pawel Test ABG Potassium (3.6-5.2) mmol/L A-a O2 Difference mm/Hg Respiratory Index Glucose (65-105) mg/dl Lactate (0.7-2.1) mmol/L FiO2 % Sodium (132-148) mmol/L Potassium (3.6-5.2) mmol/L Chloride (98-107) mmol/L Carbon Dioxide (22-30) mmol/L Anion Gap (10-20) BUN (7-17) mg/dL Creatinine (0.7-1.2) mg/dL Est GFR ( Amer) Est GFR (Non-Af Amer) POC Glucose (mg/dL) (65-110) mg/dL Random Glucose (65-105) mg/dL Calcium (8.6-10.4) mg/dl Phosphorus (2.5-4.5) mg/dL Magnesium (1.6-2.3) mg/dL Total Bilirubin (0.2-1.3) mg/dL AST (14-36) U/L ALT (9-52) U/L Alkaline Phosphatase (38-126) U/L Total Protein (6.3-8.3) g/dL Albumin (3.5-5.0) g/dL Globulin (2.2-3.9) gm/dL Albumin/Globulin Ratio (1.0-2.1) Arterial Blood Potassium (3.6-5.2) mmol/L Laboratory Results - last 24 hr 04/08/18 04/08/18 04/08/18 06:26 06:26 09:52 WBC 8.8 RBC 3.91 Hgb 10.4 L Hct 33.4 L MCV 85.3 MCH 26.5 L MCHC 31.1 L RDW 26.3 H Plt Count 220 MPV 10.2 Neut % (Auto) 90.7 H Lymph % (Auto) 1.7 L Bradford % (Auto) 7.6 Eos % (Auto) 0.0 Baso % (Auto) 0.0 Neut # (Auto) 8.0 H Lymph # (Auto) 0.1 L Bradford # (Auto) 0.7 Eos # (Auto) 0.0 Baso # (Auto) 0.0 Neutrophils % (Manual) 93 H Band Neutrophils % 1 Lymphocytes % (Manual) 2 L Monocytes % (Manual) 4 Platelet Estimate Normal Large Platelets Present Hypochromasia (manual) Slight Poikilocytosis (manual Slight Anisocytosis (manual) Moderate Target Cells Slight Ovalocytes Slight Puncture Site Lb pCO2 48 H pO2 67 L HCO3 28.6 H ABG pH 7.41 ABG Total CO2 31.9 H ABG O2 Saturation 96.2 ABG Base Excess 4.8 H Pawel Test Na ABG Potassium 3.5 L A-a O2 Difference 158.0 Respiratory Index 2.4 Glucose 247 H Lactate 2.2 H FiO2 40 Sodium 138 143.0 Potassium 3.8 Chloride 102 108.0 H Carbon Dioxide 30 Anion Gap 9 L BUN 56 H Creatinine 0.6 L Est GFR ( Amer) > 60 Est GFR (Non-Af Amer) > 60 POC Glucose (mg/dL) Random Glucose 255 H Calcium 8.3 L Phosphorus 2.5 Magnesium 2.4 H Total Bilirubin 1.1 AST 10 L D ALT 25 Alkaline Phosphatase 50 Total Protein 4.9 L Albumin 2.4 L Globulin 2.4 Albumin/Globulin Ratio 1.0 Arterial Blood Potassium 3.5 L 04/08/18 11:45 WBC RBC Hgb Hct MCV MCH MCHC RDW Plt Count MPV Neut % (Auto) Lymph % (Auto) Bradford % (Auto) Eos % (Auto) Baso % (Auto) Neut # (Auto) Lymph # (Auto) Bradford # (Auto) Eos # (Auto) Baso # (Auto) Neutrophils % (Manual) Band Neutrophils % Lymphocytes % (Manual) Monocytes % (Manual) Platelet Estimate Large Platelets Hypochromasia (manual) Poikilocytosis (manual Anisocytosis (manual) Target Cells Ovalocytes Puncture Site pCO2 pO2 HCO3 ABG pH ABG Total CO2 ABG O2 Saturation ABG Base Excess Pawel Test ABG Potassium A-a O2 Difference Respiratory Index Glucose Lactate FiO2 Sodium Potassium Chloride Carbon Dioxide Anion Gap BUN Creatinine Est GFR ( Amer) Est GFR (Non-Af Amer) POC Glucose (mg/dL) 328 H Random Glucose Calcium Phosphorus Magnesium Total Bilirubin AST ALT Alkaline Phosphatase Total Protein Albumin Globulin Albumin/Globulin Ratio Arterial Blood Potassium Radiology Impressions: Radiology Impressions Chest X-Ray 04/08/18 07:00 IMPRESSION: Marginal interval improvement in bilateral infiltrates which remain greater at the right than left sides with trace right pleural effusion remaining. Left pleural drainage catheter unchanged in position. Pulmonary vascular congestion difficult to completely exclude. EKG/Cardiology Studies: Cardiology / EKG Studies 04/08/18 09:21 ELECTROCARDIOGRAM Routine Comment: Mode Of Transportation: Reason For Exam: qtc check Critical Care Progress Note - Nutrition Nutrition: Nutrition Category Date Time Status Pureed [Dysphagia/Modified Consistency Diet] [DIET] Diets 04/02/18 Breakfast Active Attending/Attestation - Attestation I have personally seen and examined this patient.: Yes I have fully participated in the care of the patient.: Yes I have reviewed all pertinent clinical information: Yes Notes (Text): 04/08/18 16:04 Today: April The Patient was seen and examined at the bedside, Medical records reviewed, and management issues were discussed and formulated with the house staff. I have reviewed all the relevant clinical, laboratory, hemodynamic, radiographic data and medications Events reviewed Pain issues, skin care, head of the bed elevation, glycemic control were addressed. Agree with above resident's assessment and treatment plans of care as transcribed in Dr. Valenzuela's note.
--- NOTE | 2018-04-08 08:20 | RAD ---
Date of service: 04/08/2018 HISTORY: s/p thoracentesis and chest tube COMPARISON: Portable chest 04/07/2018. FINDINGS: LUNGS: Marginal improvement in bilateral infiltrates is appreciated at the mid to inferior right lung and at the left base with left pleural drainage catheter unchanged in position. PLEURA: Minimal right pleural effusion remains. No definitive left pleural effusion evident. No pneumothorax bilaterally. CARDIOVASCULAR: Calcific atherosclerotic changes are seen related to the thoracic aorta. Cardiac silhouette stable in size. Pulmonary vascular congestion is not favored but is difficult to completely exclude. No pulmonary vascular congestion. OSSEOUS STRUCTURES: No significant abnormalities. VISUALIZED UPPER ABDOMEN: Normal. OTHER FINDINGS: None. IMPRESSION: Marginal interval improvement in bilateral infiltrates which remain greater at the right than left sides with trace right pleural effusion remaining. Left pleural drainage catheter unchanged in position. Pulmonary vascular congestion difficult to completely exclude.
[2018-04-08 08:49] LABS: BANDS 1 % (0-2); LYMPHOCYTE 2 % (20-40); MONOCYTE 4 % (0-10); NEUTROPHIL 93 % (50-75); TOTAL CELLS COUNTED 100
[2018-04-08 08:50] LABS: ANISOCYTOSIS MODERATE; HYPOCHROMIC SLIGHT; PLATELET ESTIMATE NORMAL (NORMAL); POIKILOCYTOSIS SLIGHT; TARGET CELLS SLIGHT
[2018-04-08 08:51] LABS: LARGE PLATELETS PRESENT; OVALOCYTES SLIGHT
[2018-04-08] MEDS: Multiple Vitamins Oral Solution PO SCH (09:47)
[2018-04-08] MEDS: Pantoprazole 40 mg Susp UD PO SCH (09:48)
[2018-04-08] MEDS: Silver Sulfadiazine 1% Cream (20 gm) TOP SCH ×2 (10:00→18:47)
[2018-04-08] MEDS: Bacitracin Ointment 30 GM TUBE TOP SCH ×2 (10:00→18:47)
[2018-04-08] MEDS: Fluconazole IV 100mg/50 ml NS 50 ML IVPB SCH (10:17)
[2018-04-08 12:04] LABS: ARTERIAL BLOOD GAS HCO3 28.6 mmol/L (21-28); ARTERIAL BLOOD GAS PCO2 48 mm/Hg (35-45); ARTERIAL BLOOD GAS PH 7.41 (7.35-7.45); ARTERIAL BLOOD GAS PO2 67 mm/Hg (80-100)
[2018-04-08 12:05] LABS: ARTERIAL BLOOD GAS O2 SAT 96.2 % (95-98); ARTERIAL BLOOD GAS TCO2 31.9 mmol/L (22-28)
[2018-04-08 12:06] LABS: ARTERIAL BLOOD GAS FIO2 40 %
--- NOTE | 2018-04-08 16:19 | US ---
Date of service: 04/07/2018 PROCEDURE: Ultrasound provided for left lung thoracentesis guidance to be performed by Dr. Miner HISTORY: left pleural effusion COMPARISON: None TECHNIQUE: Please refer to the physician's notes performing the procedure FINDINGS: With the patient in the left supine position. The left pleural effusion is depicted for left lung thoracentesis guidance IMPRESSION: Ultrasound guidance for left lung thoracentesis guidance as above.
--- NOTE | 2018-04-08 16:28 | CP.PCM.PN ---
Subjective - Date & Time of Evaluation Date of Evaluation: 04/08/18 Time of Evaluation: 16:25 - Subjective Subjective: pt had thocic tube draining alot of fkluids slitt in icu sleepy now oxygen mask on Objective - Vital Signs/Intake and Output Vital Signs (last 24 hours): Temp Pulse Resp BP Pulse Ox 97.6 F 96 H 15 121/85 96 04/08/18 08:00 04/08/18 14:23 04/08/18 09:02 04/08/18 09:48 04/08/18 09:02 Intake and Output: 04/08/18 04/08/18 06:59 18:59 Intake Total 200 0 Output Total 710 Balance -510 0 - Medications Medications: Current Medications Acetaminophen (Tylenol 325mg Tab) 650 mg PO Q6 PRN PRN Reason: Fever >100.4 F Last Admin: 04/02/18 04:36 Dose: 650 mg Albuterol/Ipratropium (Duoneb 3 Mg/0.5 Mg (3 Ml) Ud) 3 ml INH RQ6 [facility] Last Admin: 04/08/18 13:50 Dose: 3 ml Amiodarone HCl (Cordarone) 200 mg PO DAILY [facility] Last Admin: 04/08/18 09:47 Dose: 200 mg Apixaban (Eliquis) 5 mg PO BID [facility] Last Admin: 04/08/18 09:47 Dose: 5 mg Ascorbic Acid (Vitamin C 500 Mg Tab) 500 mg PO BID [facility] Last Admin: 04/08/18 09:48 Dose: 500 mg Bacitracin (Bacitracin) 0 gm TOP BID [facility] Last Admin: 04/07/18 19:03 Dose: 1 applic Fluconazole (Diflucan Iv 100 Mg/50 Ml Ns) 50 mls @ 100 mls/hr IVPB DAILY [facility]; Protocol Last Admin: 04/08/18 10:17 Dose: 100 mls/hr Cefepime HCl (Maxipime Iv 1 Gm Premix) 1 gm in 50 mls @ 100 mls/hr IVPB Q12H [facility]; Protocol Last Admin: 04/08/18 03:32 Dose: 100 mls/hr Lactulose (Enulose) 20 gm PO HS PRN PRN Reason: Constipation Last Admin: 04/02/18 17:20 Dose: 20 gm Methylprednisolone (Solu-Medrol) 20 mg IVP BID [facility] Last Admin: 04/08/18 10:09 Dose: 20 mg Multivitamins/Vitamin C (Multi-Delyn Liquid) 5 ml PO DAILY [facility] Last Admin: 04/08/18 09:47 Dose: 5 ml Nystatin (Nystop Topical Powder) 1 applic TOP BID [facility] Last Admin: 04/07/18 19:02 Dose: 1 applic Pantoprazole Sodium (Protonix Susp) 40 mg PO DAILY [facility] Last Admin: 04/08/18 09:48 Dose: 40 mg Silver Sulfadiazine (Silvadene 1% 20 Gm) 0 ea TOP BID [facility] Last Admin: 04/07/18 18:00 Dose: Not Given Verapamil HCl (Calan Tab) 40 mg PO Q6H [facility] Last Admin: 04/08/18 09:47 Dose: 40 mg Zinc Sulfate (Zinc Sulfate 220 Mg Cap) 220 mg PO DAILY [facility] Last Admin: 04/08/18 09:47 Dose: 220 mg - Labs Labs: 04/08/18 06:26 04/08/18 06:26 PT 15.5 SECONDS (9.7-12.2) H 04/07/18 10:47 INR 1.4 04/07/18 10:47 APTT 34 SECONDS (21-34) 03/31/18 06:13 - Constitutional Appears: Non-toxic - Head Exam Head Exam: NORMAL INSPECTION - Eye Exam Eye Exam: Normal appearance Pupil Exam: NORMAL ACCOMODATION - ENT Exam ENT Exam: Mucous Membranes Moist - Neck Exam Neck Exam: Normal Inspection - Respiratory Exam Respiratory Exam: Decreased Breath Sounds - Cardiovascular Exam Cardiovascular Exam: Tachycardia - GI/Abdominal Exam GI & Abdominal Exam: Normal Bowel Sounds - Exam Exam: NORMAL INSPECTION - Extremities Exam Extremities Exam: Pedal Edema Additional comments: less celulitis - Back Exam Back Exam: NORMAL INSPECTION - Neurological Exam Neurological Exam: Normal Gait - Skin Skin Exam: Pallor Assessment and Plan - Assessment and Plan (Free Text) Assessment: chf pleural efusion chest tube in cont as per orders Plan: cont as per orders
[2018-04-08 17:06] LABS: ALBUMIN 2.3 g/dL (3.5-5.0); ALT/SGPT 24 U/L (9-52); AST/SGOT 10 U/L (14-36); BLOOD UREA NITROGEN 54 mg/dL (7-17); CALCIUM 8.3 mg/dl (8.6-10.4); GFR NON-AFRICAN AMERICAN > 60
[2018-04-08] MEDS ORDERED: Potassium Chloride 20 mEq ER Tab PO SCH (17:30)
[2018-04-08] MEDS ORDERED: Dextrose 50% SYRINGE Inj (50 ml) IV PRN (18:18)
[2018-04-08] MEDS ORDERED: Glucagon Recombinant 1 mg Inj IM PRN (18:18)
--- NOTE | 2018-04-08 18:41 | CP.PCM.PN ---
Subjective - Date & Time of Evaluation Date of Evaluation: 04/08/18 Time of Evaluation: 08:00 - Subjective Subjective: the patient seen and examined Patient is awake and responsive 1600 cc off drainage from left pigtail catheter Saturating well Afebrile Objective - Vital Signs/Intake and Output Vital Signs (last 24 hours): Temp Pulse Resp BP Pulse Ox 97.4 F L 94 H 25 H 114/73 96 04/08/18 16:00 04/08/18 18:07 04/08/18 18:07 04/08/18 18:07 04/08/18 18:07 Intake and Output: 04/08/18 04/08/18 06:59 18:59 Intake Total 200 1408 Output Total 710 500 Balance -510 908 - Medications Medications: Current Medications Acetaminophen (Tylenol 325mg Tab) 650 mg PO Q6 PRN PRN Reason: Fever >100.4 F Last Admin: 04/02/18 04:36 Dose: 650 mg Albuterol/Ipratropium (Duoneb 3 Mg/0.5 Mg (3 Ml) Ud) 3 ml INH RQ6 [facility] Last Admin: 04/08/18 13:50 Dose: 3 ml Amiodarone HCl (Cordarone) 200 mg PO DAILY [facility] Last Admin: 04/08/18 09:47 Dose: 200 mg Apixaban (Eliquis) 5 mg PO BID [facility] Last Admin: 04/08/18 09:47 Dose: 5 mg Ascorbic Acid (Vitamin C 500 Mg Tab) 500 mg PO BID [facility] Last Admin: 04/08/18 09:48 Dose: 500 mg Bacitracin (Bacitracin) 0 gm TOP BID [facility] Last Admin: 04/08/18 10:00 Dose: 1 applic Dextrose (Dextrose 50% Inj) 0 ml IV STAT PRN; Protocol PRN Reason: Hypoglycemia Protocol Dextrose (Glutose 15) 0 gm PO ONCE PRN; Protocol PRN Reason: Hypoglycemia Protocol Glucagon (Glucagen Diagnostic Kit) 0 mg IM STAT PRN; Protocol PRN Reason: Hypoglycemia Protocol Fluconazole (Diflucan Iv 100 Mg/50 Ml Ns) 50 mls @ 100 mls/hr IVPB DAILY [facility]; Protocol Last Admin: 04/08/18 10:17 Dose: 100 mls/hr Cefepime HCl (Maxipime Iv 1 Gm Premix) 1 gm in 50 mls @ 100 mls/hr IVPB Q12H [facility]; Protocol Last Admin: 04/08/18 16:47 Dose: 100 mls/hr Dextrose (Dextrose 5% In Water 1000 Ml) 1,000 mls @ 0 mls/hr IV .Q0M PRN; Protocol PRN Reason: Hypoglycemia Protocol Insulin Human Regular (Novolin R) 0 unit SC ACHS [facility]; Protocol Lactulose (Enulose) 20 gm PO HS PRN PRN Reason: Constipation Last Admin: 04/02/18 17:20 Dose: 20 gm Methylprednisolone (Solu-Medrol) 20 mg IVP BID [facility] Last Admin: 04/08/18 10:09 Dose: 20 mg Multivitamins/Vitamin C (Multi-Delyn Liquid) 5 ml PO DAILY [facility] Last Admin: 04/08/18 09:47 Dose: 5 ml Nystatin (Nystop Topical Powder) 1 applic TOP BID [facility] Last Admin: 04/08/18 10:00 Dose: 1 applic Pantoprazole Sodium (Protonix Susp) 40 mg PO DAILY [facility] Last Admin: 04/08/18 09:48 Dose: 40 mg Silver Sulfadiazine (Silvadene 1% 20 Gm) 0 ea TOP BID [facility] Last Admin: 04/07/18 18:00 Dose: Not Given Verapamil HCl (Calan Tab) 40 mg PO Q6H [facility] Last Admin: 04/08/18 16:47 Dose: 40 mg Zinc Sulfate (Zinc Sulfate 220 Mg Cap) 220 mg PO DAILY [facility] Last Admin: 04/08/18 09:47 Dose: 220 mg - Labs Labs: 04/08/18 06:26 04/08/18 16:47 PT 15.5 SECONDS (9.7-12.2) H 04/07/18 10:47 INR 1.4 04/07/18 10:47 APTT 34 SECONDS (21-34) 03/31/18 06:13 - Head Exam Head Exam: ATRAUMATIC, NORMOCEPHALIC - ENT Exam ENT Exam: Mucous Membranes Moist - Neck Exam Neck Exam: Normal Inspection - Respiratory Exam Respiratory Exam: Decreased Breath Sounds - Cardiovascular Exam Cardiovascular Exam: REGULAR RHYTHM - GI/Abdominal Exam GI & Abdominal Exam: Soft, Normal Bowel Sounds - Extremities Exam Extremities Exam: Pedal Edema Assessment and Plan (1) Acute respiratory failure Status: Acute (2) Atrial fibrillation and flutter Status: Acute (3) CHF (congestive heart failure) Status: Acute (4) Pleural effusion Status: Acute
[2018-04-08] MEDS ORDERED: (Novolin R) Insulin Human Regular 100 units/ml vial SC SCH (19:00)
[2018-04-08] MEDS: Potassium Chloride 20 mEq/15 ml LIQ UD PO SCH ×2 (19:15→20:08)
[2018-04-08] MEDS: (Novolin R) Insulin Human Regular 100 units/ml vial SC SCH (20:44)
[2018-04-09] MEDS: Albuterol-Ipratrop 3 mg / 0.5 (3 ml) UD INH SCH ×4 (01:12→19:22)
[2018-04-09] MEDS: Cefepime IV 1 gm in Dextrose 1 GM/50 ML BAG IVPB SCH ×2 (03:31→17:30)
[2018-04-09] MEDS: (Novolin R) Insulin Human Regular 100 units/ml vial SC SCH ×6 (04:28→20:44)
[2018-04-09 06:17] LABS: BASO % 0.2 % (0.0-2.0); HEMOGLOBIN 10.6 g/dL (11.0-16.0); LYMPH # 0.2 K/uL (1.0-4.3); LYMPH % 2.3 % (20.0-40.0); MEAN CELL VOLUME 84.8 fL (81.0-99.0); MEAN CORPUSCULAR HEMOGLOBIN 26.4 pg (27.0-31.0); MEAN CORPUSCULAR HGB CONC 31.1 g/dL (33.0-37.0); MEAN PLATELET VOLUME 10.3 fL (7.2-11.7); MONO # 1.2 K/uL (0.0-0.8); MONO % 12.4 % (0.0-10.0); NEUT # 8.1 K/uL (1.8-7.0); NEUT % 85.1 % (50.0-75.0); NRBC % 0.1 % (0.0-2.0); PLATELET COUNT 207 K/uL (130-400); RBC 4.01 Mil/uL (3.80-5.20); RED CELL DISTRIBUTION WIDTH 25.7 % (11.5-14.5); WHITE BLOOD COUNT 9.5 K/uL (4.8-10.8)
[2018-04-09 06:51] LABS: ALB/GLOB RATIO 1.1 (1.0-2.1); ALBUMIN 2.5 g/dL (3.5-5.0); ALT/SGPT 26 U/L (9-52); AST/SGOT 17 U/L (14-36); BLOOD UREA NITROGEN 57 mg/dL (7-17); CALCIUM 8.4 mg/dl (8.6-10.4); GFR NON-AFRICAN AMERICAN > 60
--- NOTE | 2018-04-09 07:34 | CP.CCUPN ---
<Margi Valenzuela - Last Filed: 04/09/18 10:01> CCU Subjective - Physician Review Subjective (Free Text): PGY-1 Critical Care Progress Note for Dr. Amador's service Patient seen and examined at bedside. Patient offers no acute complaints. Patient denies fevers, chills, chest pain, sob, n/v, constipation or diarrhea, and dysuria. POD 2 chest tube placement drained 600 overnight. Plan for chest tube placement on right side. Critical Care Time Spent (in minutes): 35 CCU Objective - Vital Signs / Intake & Output Vital Signs (Last 4 hours): Vital Signs Temp Pulse Resp BP Pulse Ox 04/09/18 06:17 87 22 114/74 98 04/09/18 05:06 102 H 28 H 114/85 94 L 04/09/18 04:23 93 H 22 109/78 98 04/09/18 04:00 98.5 F 97 H 20 109/78 98 Intake and Output (Last 8hrs): Intake & Output 04/08/18 04/09/18 04/09/18 22:59 06:59 14:59 Intake Total 1057 250 Output Total 1060 440 Balance -3 -190 Weight 235 lb 11.2 oz Intake: Intake, IV Amount 50 50 Right arm mid line 50 50 Oral 1007 200 Output: Chest Tube Drainage 360 140 Left Posterior Chest 360 140 Urine 700 300 Urine, Voided 700 300 - Physical Exam Head: Positive for: Atraumatic, Normocephalic, Other (central line in left IJ) Pupils: Positive for: PERRL Extroacular Muscles: Positive for: EOMI Conjunctiva: Positive for: Normal Mouth: Positive for: Dry, Other (on venti mask) Neck: Positive for: Normal Range of Motion. Negative for: JVD, Lymphadenopathy Respiratory/Chest: Positive for: Decreased Breath Sounds. Negative for: Respiratory Distress, Accessory Muscle Use, Wheezes, Tachypneic Cardiovascular: Positive for: Regular Rate and Rhythm, Normal S1, S2. Negative for: Murmurs, Irregular Rhythm Abdomen: Positive for: Normal Bowel Sounds. Negative for: Tenderness, Distention, Peritoneal Signs Genitourinary/Pelvic Exam: Positive for: Other ([place] in place for strict Is/Os) Upper Extremity: Positive for: Normal Inspection, Edema. Negative for: Cyanosis Lower Extremity: Positive for: Normal Inspection, Edema Neurological: Positive for: GCS=15 Skin: Positive for: Dry, Normal Color, Other (chest tube in posterior left back, right foot ulcer, and sacral unstageable ulcer). Negative for: Diaphoretic Psychiatric: Positive for: Alert, Oriented x 3 - Medications Active Medications: Active Medications Generic Name Dose Route Start Last Admin Trade Name Freq PRN Reason Stop Dose Admin Acetaminophen 650 mg 03/23/18 15:59 04/02/18 04:36 Tylenol 325mg Tab PO 650 mg Q6 PRN Administration Fever >100.4 F Albuterol/Ipratropium 3 ml 04/02/18 14:00 04/09/18 01:12 Duoneb 3 Mg/0.5 Mg (3 Ml) Ud INH 3 ml RQ6 KEV Administration Amiodarone HCl 200 mg 03/23/18 16:45 04/08/18 09:47 Cordarone PO 200 mg DAILY KEV Administration Apixaban 5 mg 03/23/18 18:00 04/08/18 18:44 Eliquis PO 5 mg BID KEV Administration Ascorbic Acid 500 mg 04/02/18 10:00 04/08/18 18:44 Vitamin C 500 Mg Tab PO 500 mg BID KEV Administration Bacitracin 0 gm 04/01/18 18:00 04/08/18 18:47 Bacitracin TOP 1 applic BID KEV Administration Dextrose 0 ml 04/08/18 18:18 Dextrose 50% Inj IV STAT PRN Hypoglycemia Protocol Protocol Dextrose 0 gm 04/08/18 18:18 Glutose 15 PO ONCE PRN Hypoglycemia Protocol Protocol Glucagon 0 mg 04/08/18 18:18 Glucagen Diagnostic Kit IM STAT PRN Hypoglycemia Protocol Protocol Fluconazole 50 mls @ 100 mls/hr 03/27/18 10:00 04/08/18 10:17 Diflucan Iv 100 Mg/50 Ml Ns IVPB 100 mls/hr DAILY KEV Administration Protocol Cefepime HCl 1 gm in 50 mls @ 100 mls/hr 04/01/18 16:30 04/09/18 03:31 Maxipime Iv 1 Gm Premix IVPB 100 mls/hr Q12H KEV Administration Protocol Dextrose 1,000 mls @ 0 mls/hr 04/08/18 18:18 Dextrose 5% In Water 1000 Ml IV .Q0M PRN Hypoglycemia Protocol Protocol Per Protocol Insulin Human Regular 0 unit 04/08/18 20:15 04/09/18 04:28 Novolin R SC 3 u Q4 KEV Administration Protocol Lactulose 20 gm 03/30/18 19:13 04/02/18 17:20 Enulose PO 20 gm HS PRN Administration Constipation Methylprednisolone 20 mg 04/08/18 10:00 04/08/18 10:09 Solu-Medrol IVP 20 mg BID KEV Administration Multivitamins/Vitamin C 5 ml 04/02/18 10:00 04/08/18 09:47 Multi-Delyn Liquid PO 5 ml DAILY KEV Administration Nystatin 1 applic 03/23/18 18:00 04/08/18 18:00 Nystop Topical Powder TOP 1 applic BID KEV Administration Pantoprazole Sodium 40 mg 03/27/18 10:00 04/08/18 09:48 Protonix Susp PO 40 mg DAILY KEV Administration Silver Sulfadiazine 0 ea 03/26/18 10:00 04/08/18 18:47 Silvadene 1% 20 Gm TOP 1 applic BID KEV Administration Verapamil HCl 40 mg 04/02/18 09:00 04/09/18 03:27 Calan Tab PO 40 mg Q6H KEV Administration Zinc Sulfate 220 mg 04/02/18 10:00 04/08/18 09:47 Zinc Sulfate 220 Mg Cap PO 220 mg DAILY KEV Administration - Patient Studies Lab Studies: Lab Studies 04/09/18 04/09/18 04/09/18 Range/Units 06:06 06:06 04:09 WBC 9.5 (4.8-10.8) K/uL RBC 4.01 (3.80-5.20) Mil/uL Hgb 10.6 L (11.0-16.0) g/dL Hct 34.0 (34.0-47.0) % MCV 84.8 (81.0-99.0) fL MCH 26.4 L (27.0-31.0) pg MCHC 31.1 L (33.0-37.0) g/dL RDW 25.7 H (11.5-14.5) % Plt Count 207 (130-400) K/uL MPV 10.3 (7.2-11.7) fL Neut % (Auto) 85.1 H (50.0-75.0) % Lymph % (Auto) 2.3 L (20.0-40.0) % [place] % (Auto) 12.4 H (0.0-10.0) % Eos % (Auto) 0.0 (0.0-4.0) % Baso % (Auto) 0.2 (0.0-2.0) % Neut # (Auto) 8.1 H (1.8-7.0) K/uL Lymph # (Auto) 0.2 L (1.0-4.3) K/uL [place] # (Auto) 1.2 H (0.0-0.8) K/uL Eos # (Auto) 0.0 (0.0-0.7) K/uL Baso # (Auto) 0.0 (0.0-0.2) K/uL Neutrophils % (Manual) (50-75) % Band Neutrophils % (0-2) % Lymphocytes % (Manual) (20-40) % Monocytes % (Manual) (0-10) % Platelet Estimate (NORMAL) Large Platelets Hypochromasia (manual) Poikilocytosis (manual Anisocytosis (manual) Target Cells Ovalocytes Puncture Site pCO2 (35-45) mm/Hg pO2 (80-100) mm/Hg HCO3 (21-28) mmol/L ABG pH (7.35-7.45) ABG Total CO2 (22-28) mmol/L ABG O2 Saturation (95-98) % ABG Base Excess (-2.0-3.0) mmol/L Pawel Test ABG Potassium (3.6-5.2) mmol/L A-a O2 Difference mm/Hg Respiratory Index Sodium 139 (132-148) mmol/l Chloride 102 (98-107) mmol/L Glucose (65-105) mg/dl Lactate (0.7-2.1) mmol/L FiO2 % Potassium 4.2 (3.6-5.2) mmol/L Carbon Dioxide 32 H (22-30) mmol/L Anion Gap 9 L (10-20) BUN 57 H (7-17) mg/dL Creatinine 0.7 (0.7-1.2) mg/dL Est GFR ( Amer) > 60 Est GFR (Non-Af Amer) > 60 POC Glucose (mg/dL) 275 H (65-110) mg/dL Random Glucose 238 H (65-105) mg/dL Calcium 8.4 L (8.6-10.4) mg/dl Phosphorus 2.5 (2.5-4.5) mg/dL Magnesium 2.4 H (1.6-2.3) mg/dL Total Bilirubin 1.0 (0.2-1.3) mg/dL AST 17 (14-36) U/L ALT 26 (9-52) U/L Alkaline Phosphatase 48 (38-126) U/L Total Protein 4.8 L (6.3-8.3) g/dL Albumin 2.5 L (3.5-5.0) g/dL Globulin 2.3 (2.2-3.9) gm/dL Albumin/Globulin Ratio 1.1 (1.0-2.1) Prealbumin (17.6-36.0) mg/dL Procalcitonin (0.19-0.49) NG/ML Arterial Blood Potassium (3.6-5.2) mmol/L 04/08/18 04/08/18 04/08/18 Range/Units 23:26 20:18 16:47 WBC (4.8-10.8) K/uL RBC (3.80-5.20) Mil/uL Hgb (11.0-16.0) g/dL Hct (34.0-47.0) % MCV (81.0-99.0) fL MCH (27.0-31.0) pg MCHC (33.0-37.0) g/dL RDW (11.5-14.5) % Plt Count (130-400) K/uL MPV (7.2-11.7) fL Neut % (Auto) (50.0-75.0) % Lymph % (Auto) (20.0-40.0) % [place] % (Auto) (0.0-10.0) % Eos % (Auto) (0.0-4.0) % Baso % (Auto) (0.0-2.0) % Neut # (Auto) (1.8-7.0) K/uL Lymph # (Auto) (1.0-4.3) K/uL [place] # (Auto) (0.0-0.8) K/uL Eos # (Auto) (0.0-0.7) K/uL Baso # (Auto) (0.0-0.2) K/uL Neutrophils % (Manual) (50-75) % Band Neutrophils % (0-2) % Lymphocytes % (Manual) (20-40) % Monocytes % (Manual) (0-10) % Platelet Estimate (NORMAL) Large Platelets Hypochromasia (manual) Poikilocytosis (manual Anisocytosis (manual) Target Cells Ovalocytes Puncture Site pCO2 (35-45) mm/Hg pO2 (80-100) mm/Hg HCO3 (21-28) mmol/L ABG pH (7.35-7.45) ABG Total CO2 (22-28) mmol/L ABG O2 Saturation (95-98) % ABG Base Excess (-2.0-3.0) mmol/L Pawel Test ABG Potassium (3.6-5.2) mmol/L A-a O2 Difference mm/Hg Respiratory Index Sodium (132-148) mmol/l Chloride (98-107) mmol/L Glucose (65-105) mg/dl Lactate (0.7-2.1) mmol/L FiO2 % Potassium (3.6-5.2) mmol/L Carbon Dioxide (22-30) mmol/L Anion Gap (10-20) BUN (7-17) mg/dL Creatinine (0.7-1.2) mg/dL Est GFR ( Amer) Est GFR (Non-Af Amer) POC Glucose (mg/dL) 338 H 381 H (65-110) mg/dL Random Glucose (65-105) mg/dL Calcium (8.6-10.4) mg/dl Phosphorus (2.5-4.5) mg/dL Magnesium (1.6-2.3) mg/dL Total Bilirubin (0.2-1.3) mg/dL AST (14-36) U/L ALT (9-52) U/L Alkaline Phosphatase (38-126) U/L Total Protein (6.3-8.3) g/dL Albumin (3.5-5.0) g/dL Globulin (2.2-3.9) gm/dL Albumin/Globulin Ratio (1.0-2.1) Prealbumin 17.8 (17.6-36.0) mg/dL Procalcitonin (0.19-0.49) NG/ML Arterial Blood Potassium (3.6-5.2) mmol/L 04/08/18 04/08/18 04/08/18 Range/Units 16:47 16:47 16:04 WBC (4.8-10.8) K/uL RBC (3.80-5.20) Mil/uL Hgb (11.0-16.0) g/dL Hct (34.0-47.0) % MCV (81.0-99.0) fL MCH (27.0-31.0) pg MCHC (33.0-37.0) g/dL RDW (11.5-14.5) % Plt Count (130-400) K/uL MPV (7.2-11.7) fL Neut % (Auto) (50.0-75.0) % Lymph % (Auto) (20.0-40.0) % [place] % (Auto) (0.0-10.0) % Eos % (Auto) (0.0-4.0) % Baso % (Auto) (0.0-2.0) % Neut # (Auto) (1.8-7.0) K/uL Lymph # (Auto) (1.0-4.3) K/uL [place] # (Auto) (0.0-0.8) K/uL Eos # (Auto) (0.0-0.7) K/uL Baso # (Auto) (0.0-0.2) K/uL Neutrophils % (Manual) (50-75) % Band Neutrophils % (0-2) % Lymphocytes % (Manual) (20-40) % Monocytes % (Manual) (0-10) % Platelet Estimate (NORMAL) Large Platelets Hypochromasia (manual) Poikilocytosis (manual Anisocytosis (manual) Target Cells Ovalocytes Puncture Site pCO2 (35-45) mm/Hg pO2 (80-100) mm/Hg HCO3 (21-28) mmol/L ABG pH (7.35-7.45) ABG Total CO2 (22-28) mmol/L ABG O2 Saturation (95-98) % ABG Base Excess (-2.0-3.0) mmol/L Pawel Test ABG Potassium (3.6-5.2) mmol/L A-a O2 Difference mm/Hg Respiratory Index Sodium 140 (132-148) mmol/l Chloride 105 (98-107) mmol/L Glucose (65-105) mg/dl Lactate (0.7-2.1) mmol/L FiO2 % Potassium 3.6 (3.6-5.2) mmol/L Carbon Dioxide 33 H (22-30) mmol/L Anion Gap 6 L (10-20) BUN 54 H (7-17) mg/dL Creatinine 0.8 (0.7-1.2) mg/dL Est GFR ( Amer) > 60 Est GFR (Non-Af Amer) > 60 POC Glucose (mg/dL) 299 H (65-110) mg/dL Random Glucose 271 H (65-105) mg/dL Calcium 8.3 L (8.6-10.4) mg/dl Phosphorus (2.5-4.5) mg/dL Magnesium (1.6-2.3) mg/dL Total Bilirubin 1.0 (0.2-1.3) mg/dL AST 10 L (14-36) U/L ALT 24 (9-52) U/L Alkaline Phosphatase 43 (38-126) U/L Total Protein 4.6 L (6.3-8.3) g/dL Albumin 2.3 L (3.5-5.0) g/dL Globulin 2.3 (2.2-3.9) gm/dL Albumin/Globulin Ratio 1.0 (1.0-2.1) Prealbumin (17.6-36.0) mg/dL Procalcitonin 0.18 L (0.19-0.49) NG/ML Arterial Blood Potassium (3.6-5.2) mmol/L 04/08/18 04/08/18 04/08/18 Range/Units 11:45 09:52 06:26 WBC (4.8-10.8) K/uL RBC (3.80-5.20) Mil/uL Hgb (11.0-16.0) g/dL Hct (34.0-47.0) % MCV (81.0-99.0) fL MCH (27.0-31.0) pg MCHC (33.0-37.0) g/dL RDW (11.5-14.5) % Plt Count (130-400) K/uL MPV (7.2-11.7) fL Neut % (Auto) (50.0-75.0) % Lymph % (Auto) (20.0-40.0) % [place] % (Auto) (0.0-10.0) % Eos % (Auto) (0.0-4.0) % Baso % (Auto) (0.0-2.0) % Neut # (Auto) (1.8-7.0) K/uL Lymph # (Auto) (1.0-4.3) K/uL [place] # (Auto) (0.0-0.8) K/uL Eos # (Auto) (0.0-0.7) K/uL Baso # (Auto) (0.0-0.2) K/uL Neutrophils % (Manual) 93 H (50-75) % Band Neutrophils % 1 (0-2) % Lymphocytes % (Manual) 2 L (20-40) % Monocytes % (Manual) 4 (0-10) % Platelet Estimate Normal (NORMAL) Large Platelets Present Hypochromasia (manual) Slight Poikilocytosis (manual Slight Anisocytosis (manual) Moderate Target Cells Slight Ovalocytes Slight Puncture Site Lb pCO2 48 H (35-45) mm/Hg pO2 67 L (80-100) mm/Hg HCO3 28.6 H (21-28) mmol/L ABG pH 7.41 (7.35-7.45) ABG Total CO2 31.9 H (22-28) mmol/L ABG O2 Saturation 96.2 (95-98) % ABG Base Excess 4.8 H (-2.0-3.0) mmol/L Pawel Test Na ABG Potassium 3.5 L (3.6-5.2) mmol/L A-a O2 Difference 158.0 mm/Hg Respiratory Index 2.4 Sodium 143.0 (132-148) mmol/l Chloride 108.0 H (98-107) mmol/L Glucose 247 H (65-105) mg/dl Lactate 2.2 H (0.7-2.1) mmol/L FiO2 40 % Potassium (3.6-5.2) mmol/L Carbon Dioxide (22-30) mmol/L Anion Gap (10-20) BUN (7-17) mg/dL Creatinine (0.7-1.2) mg/dL Est GFR ( Amer) Est GFR (Non-Af Amer) POC Glucose (mg/dL) 328 H (65-110) mg/dL Random Glucose (65-105) mg/dL Calcium (8.6-10.4) mg/dl Phosphorus (2.5-4.5) mg/dL Magnesium (1.6-2.3) mg/dL Total Bilirubin (0.2-1.3) mg/dL AST (14-36) U/L ALT (9-52) U/L Alkaline Phosphatase (38-126) U/L Total Protein (6.3-8.3) g/dL Albumin (3.5-5.0) g/dL Globulin (2.2-3.9) gm/dL Albumin/Globulin Ratio (1.0-2.1) Prealbumin (17.6-36.0) mg/dL Procalcitonin (0.19-0.49) NG/ML Arterial Blood Potassium 3.5 L (3.6-5.2) mmol/L Laboratory Results - last 24 hr 04/08/18 04/08/18 04/08/18 06:26 09:52 11:45 WBC RBC Hgb Hct MCV MCH MCHC RDW Plt Count MPV Neut % (Auto) Lymph % (Auto) [place] % (Auto) Eos % (Auto) Baso % (Auto) Neut # (Auto) Lymph # (Auto) [place] # (Auto) Eos # (Auto) Baso # (Auto) Neutrophils % (Manual) 93 H Band Neutrophils % 1 Lymphocytes % (Manual) 2 L Monocytes % (Manual) 4 Platelet Estimate Normal Large Platelets Present Hypochromasia (manual) Slight Poikilocytosis (manual Slight Anisocytosis (manual) Moderate Target Cells Slight Ovalocytes Slight Puncture Site Lb pCO2 48 H pO2 67 L HCO3 28.6 H ABG pH 7.41 ABG Total CO2 31.9 H ABG O2 Saturation 96.2 ABG Base Excess 4.8 H Pawel Test Na ABG Potassium 3.5 L A-a O2 Difference 158.0 Respiratory Index 2.4 Sodium 143.0 Chloride 108.0 H Glucose 247 H Lactate 2.2 H FiO2 40 Potassium Carbon Dioxide Anion Gap BUN Creatinine Est GFR ( Amer) Est GFR (Non-Af Amer) POC Glucose (mg/dL) 328 H Random Glucose Calcium Phosphorus Magnesium Total Bilirubin AST ALT Alkaline Phosphatase Total Protein Albumin Globulin Albumin/Globulin Ratio Prealbumin Procalcitonin Arterial Blood Potassium 3.5 L 04/08/18 04/08/18 04/08/18 16:04 16:47 16:47 WBC RBC Hgb Hct MCV MCH MCHC RDW Plt Count MPV Neut % (Auto) Lymph % (Auto) [place] % (Auto) Eos % (Auto) Baso % (Auto) Neut # (Auto) Lymph # (Auto) [place] # (Auto) Eos # (Auto) Baso # (Auto) Neutrophils % (Manual) Band Neutrophils % Lymphocytes % (Manual) Monocytes % (Manual) Platelet Estimate Large Platelets Hypochromasia (manual) Poikilocytosis (manual Anisocytosis (manual) Target Cells Ovalocytes Puncture Site pCO2 pO2 HCO3 ABG pH ABG Total CO2 ABG O2 Saturation ABG Base Excess Pawel Test ABG Potassium A-a O2 Difference Respiratory Index Sodium 140 Chloride 105 Glucose Lactate FiO2 Potassium 3.6 Carbon Dioxide 33 H Anion Gap 6 L BUN 54 H Creatinine 0.8 Est GFR ( Amer) > 60 Est GFR (Non-Af Amer) > 60 POC Glucose (mg/dL) 299 H Random Glucose 271 H Calcium 8.3 L Phosphorus Magnesium Total Bilirubin 1.0 AST 10 L ALT 24 Alkaline Phosphatase 43 Total Protein 4.6 L Albumin 2.3 L Globulin 2.3 Albumin/Globulin Ratio 1.0 Prealbumin Procalcitonin 0.18 L Arterial Blood Potassium 04/08/18 04/08/18 04/08/18 16:47 20:18 23:26 WBC RBC Hgb Hct MCV MCH MCHC RDW Plt Count MPV Neut % (Auto) Lymph % (Auto) [place] % (Auto) Eos % (Auto) Baso % (Auto) Neut # (Auto) Lymph # (Auto) [place] # (Auto) Eos # (Auto) Baso # (Auto) Neutrophils % (Manual) Band Neutrophils % Lymphocytes % (Manual) Monocytes % (Manual) Platelet Estimate Large Platelets Hypochromasia (manual) Poikilocytosis (manual Anisocytosis (manual) Target Cells Ovalocytes Puncture Site pCO2 pO2 HCO3 ABG pH ABG Total CO2 ABG O2 Saturation ABG Base Excess Pawel Test ABG Potassium A-a O2 Difference Respiratory Index Sodium Chloride Glucose Lactate FiO2 Potassium Carbon Dioxide Anion Gap BUN Creatinine Est GFR ( Amer) Est GFR (Non-Af Amer) POC Glucose (mg/dL) 381 H 338 H Random Glucose Calcium Phosphorus Magnesium Total Bilirubin AST ALT Alkaline Phosphatase Total Protein Albumin Globulin Albumin/Globulin Ratio Prealbumin 17.8 Procalcitonin Arterial Blood Potassium 04/09/18 04/09/18 04/09/18 04:09 06:06 06:06 WBC 9.5 RBC 4.01 Hgb 10.6 L Hct 34.0 MCV 84.8 MCH 26.4 L MCHC 31.1 L RDW 25.7 H Plt Count 207 MPV 10.3 Neut % (Auto) 85.1 H Lymph % (Auto) 2.3 L [place] % (Auto) 12.4 H Eos % (Auto) 0.0 Baso % (Auto) 0.2 Neut # (Auto) 8.1 H Lymph # (Auto) 0.2 L [place] # (Auto) 1.2 H Eos # (Auto) 0.0 Baso # (Auto) 0.0 Neutrophils % (Manual) Band Neutrophils % Lymphocytes % (Manual) Monocytes % (Manual) Platelet Estimate Large Platelets Hypochromasia (manual) Poikilocytosis (manual Anisocytosis (manual) Target Cells Ovalocytes Puncture Site pCO2 pO2 HCO3 ABG pH ABG Total CO2 ABG O2 Saturation ABG Base Excess Pawel Test ABG Potassium A-a O2 Difference Respiratory Index Sodium 139 Chloride 102 Glucose Lactate FiO2 Potassium 4.2 Carbon Dioxide 32 H Anion Gap 9 L BUN 57 H Creatinine 0.7 Est GFR ( Amer) > 60 Est GFR (Non-Af Amer) > 60 POC Glucose (mg/dL) 275 H Random Glucose 238 H Calcium 8.4 L Phosphorus 2.5 Magnesium 2.4 H Total Bilirubin 1.0 AST 17 ALT 26 Alkaline Phosphatase 48 Total Protein 4.8 L Albumin 2.5 L Globulin 2.3 Albumin/Globulin Ratio 1.1 Prealbumin Procalcitonin Arterial Blood Potassium Radiology Impressions: Radiology Impressions Joint Effusion US 04/07/18 08:09 IMPRESSION: Ultrasound guidance for left lung thoracentesis guidance as above. Chest X-Ray 04/08/18 07:00 IMPRESSION: Marginal interval improvement in bilateral infiltrates which remain greater at the right than left sides with trace right pleural effusion remaining. Left pleural drainage catheter unchanged in position. Pulmonary vascular congestion difficult to completely exclude. EKG/Cardiology Studies: Cardiology / EKG Studies 04/08/18 09:21 ELECTROCARDIOGRAM Routine Comment: Mode Of Transportation: Reason For Exam: qtc check Fingerstick Blood Sugar Results: 275 Review of Systems - Review of Systems Review of Systems: 12 point ROS obtained and noted in HPI Critical Care Progress Note - Extremities/Vascular Does the Patient have a Central Venous Catheter?: Yes Does the Patient need a Central Venous Catheter?: Yes Does the Patient have a [place] Catheter?: No Does the Patient need a [place] Catheter?: No - Prophylaxis GI Prophylaxis GI: PPI - Nutrition Nutrition: Nutrition Category Date Time Status Pureed [Dysphagia/Modified Consistency Diet] [DIET] Diets 04/02/18 Breakfast Active Assessment/Plan - Assessment and Plan (Free Text) Assessment: Patient is a 82 yo female w/ PMH of CHF, HTN, Afib on AC admitted for bilateral pleural effusions and pneumonia. Was breathing on bipap in ED however after transfer to ICU, patient decompensated only responding to painful stimuli. GCS of 6. Patient was intubated. Patient became hypotensive so central line was placed for levophed drip. s/p thoracentesis with 1100 fluid removed. Home AC restarted. Precedex and levophed dc'ed. Patient extubated and doing well. s/p chest tube insertion on 04/07/18 with 1600 ml drained day 1. Repeat Cxray shows bilateral pleural effusions. May need chest tube for prolonged amount of days for recurrent effusion Neuro Awake, Alerted, Oriented No acute issues Pulm Duoneb; Solumedrol Cefepime/Fluconazole (start dates 04/01 and 03/27 respectively); Will discuss with ID for possible dc of abx in setting of negative cx, afebrile, and no wbc s/p thoracentesis 1100ml fluid drained- right s/p chest tube insertion on 04/07/18 with 1600 drained first day then clamped; fur ther management as per pumonology for when to remove Add chest tube to right side due to recurrent effusion seen on cxr; attempt nasal cannula prn Continue aggressive pulm toilet CV Amiodarone Verapamil Eliquis GI no active issues Protonix; Lactulose Prealbumin normal; consider albumin iv in am pending morning labs As per dietary ensure will be three times a day Heme Elqiuis bid no acute issues Endo Q4H; ISS- low dose due to patient being on steroids Renal Zinc/Multivitamins/Ascorbic acid Derm Podiatry following for foot ulcer on right- Nystatin, multipodus boots Wound care for unstagable sacral ulcer and buttock ulcer- recommendations are continued as per wound care- bacitracin/medihoney Continue to monitor ID Cefepime/Fluconazole (completed 7 day course of azithromycin) + trach asp for yeast species; + urine cx for yeast species new figueredo cx negative GI ppx: Protonix DVT ppx: Elquis 5mg po bid Disposition: Continue aggressive pulm toilet; chest tube b/l management as per pulm; PT/OT; Try to wean patient to only nasal cannula; Continue wound care management Margi Valenzuela PGY-1 Case d/w Dr. Amador <Zaheer Amador S - Last Filed: 04/09/18 16:13> CCU Objective - Vital Signs / Intake & Output Vital Signs (Last 4 hours): Vital Signs Temp Pulse Resp BP Pulse Ox 04/09/18 16:06 100 H 20 100/64 99 04/09/18 16:00 98.6 F 102 H 19 128/76 99 04/09/18 15:56 104 H 21 121/87 95 04/09/18 15:27 105 H 29 H 120/69 98 04/09/18 15:00 98.4 F 103 H 33 H 98/66 L 97 04/09/18 14:27 103 H 29 H 117/78 97 04/09/18 14:05 96 H 04/09/18 14:00 96 H 97 04/09/18 13:57 102 H 120/86 98 04/09/18 13:26 99 H 27 H 126/87 96 04/09/18 13:00 103 H 19 98 Intake and Output (Last 8hrs): Intake & Output 04/09/18 04/09/18 04/09/18 06:59 14:59 22:59 Intake Total 250 1270 320 Output Total 440 278 Balance -190 992 320 Weight 235 lb 11.2 oz Intake: Intake, IV Amount 50 150 Right arm mid line 50 150 Oral 200 1120 320 Output: Chest Tube Drainage 140 28 Left Posterior Chest 140 28 Urine 300 250 Urine, Voided 300 250 Other: # Bowel Movements 1 - Medications Active Medications: Active Medications Generic Name Dose Route Start Last Admin Trade Name Freq PRN Reason Stop Dose Admin Acetaminophen 650 mg 03/23/18 15:59 04/02/18 04:36 Tylenol 325mg Tab PO 650 mg Q6 PRN Administration Fever >100.4 F Albuterol/Ipratropium 3 ml 04/02/18 14:00 04/09/18 14:04 Duoneb 3 Mg/0.5 Mg (3 Ml) Ud INH 3 ml RQ6 KEV Administration Amiodarone HCl 200 mg 03/23/18 16:45 04/09/18 12:20 Cordarone PO 200 mg DAILY KEV Administration Apixaban 5 mg 03/23/18 18:00 04/09/18 10:45 Eliquis PO 5 mg BID KEV Administration Ascorbic Acid 500 mg 04/02/18 10:00 04/09/18 11:34 Vitamin C 500 Mg Tab PO 500 mg BID KEV Administration Bacitracin 0 gm 04/01/18 18:00 04/09/18 10:45 Bacitracin TOP Not Given BID KEV Dextrose 0 ml 04/08/18 18:18 Dextrose 50% Inj IV STAT PRN Hypoglycemia Protocol Protocol Dextrose 0 gm 04/08/18 18:18 Glutose 15 PO ONCE PRN Hypoglycemia Protocol Protocol Glucagon 0 mg 04/08/18 18:18 Glucagen Diagnostic Kit IM STAT PRN Hypoglycemia Protocol Protocol Fluconazole 50 mls @ 100 mls/hr 03/27/18 10:00 04/09/18 11:31 Diflucan Iv 100 Mg/50 Ml Ns IVPB 100 mls/hr DAILY KEV Administration Protocol Cefepime HCl 1 gm in 50 mls @ 100 mls/hr 04/01/18 16:30 04/09/18 03:31 Maxipime Iv 1 Gm Premix IVPB 100 mls/hr Q12H EKV Administration Protocol Dextrose 1,000 mls @ 0 mls/hr 04/08/18 18:18 Dextrose 5% In Water 1000 Ml IV .Q0M PRN Hypoglycemia Protocol Protocol Per Protocol Insulin Human Regular 0 unit 04/08/18 20:15 04/09/18 12:22 Novolin R SC 2 u Q4 KEV Administration Protocol Lactulose 20 gm 03/30/18 19:13 04/02/18 17:20 Enulose PO 20 gm HS PRN Administration Constipation Methylprednisolone 20 mg 04/08/18 10:00 04/09/18 10:15 Solu-Medrol IVP 20 mg BID KEV Administration Multivitamins/Vitamin C 5 ml 04/02/18 10:00 04/09/18 11:33 Multi-Delyn Liquid PO 5 ml DAILY KEV Administration Nystatin 1 applic 03/23/18 18:00 04/09/18 10:00 Nystop Topical Powder TOP 1 applic BID KEV Administration Pantoprazole Sodium 40 mg 03/27/18 10:00 04/09/18 11:34 Protonix Susp PO 40 mg DAILY KEV Administration Silver Sulfadiazine 0 ea 03/26/18 10:00 04/09/18 10:30 Silvadene 1% 20 Gm TOP 1 applic BID KEV Administration Verapamil HCl 40 mg 04/02/18 09:00 04/09/18 15:00 [place] Tab PO Not Given Q6H KEV Zinc Sulfate 220 mg 04/02/18 10:00 04/09/18 11:34 Zinc Sulfate 220 Mg Cap PO 220 mg DAILY KEV Administration - Patient Studies Lab Studies: Lab Studies 04/09/18 04/09/18 04/09/18 Range/Units 12:04 07:54 06:06 WBC (4.8-10.8) K/uL RBC (3.80-5.20) Mil/uL Hgb (11.0-16.0) g/dL Hct (34.0-47.0) % MCV (81.0-99.0) fL MCH (27.0-31.0) pg MCHC (33.0-37.0) g/dL RDW (11.5-14.5) % Plt Count (130-400) K/uL MPV (7.2-11.7) fL Neut % (Auto) (50.0-75.0) % Lymph % (Auto) (20.0-40.0) % [place] % (Auto) (0.0-10.0) % Eos % (Auto) (0.0-4.0) % Baso % (Auto) (0.0-2.0) % Neut # (Auto) (1.8-7.0) K/uL Lymph # (Auto) (1.0-4.3) K/uL [place] # (Auto) (0.0-0.8) K/uL Eos # (Auto) (0.0-0.7) K/uL Baso # (Auto) (0.0-0.2) K/uL Neutrophils % (Manual) (50-75) % Lymphocytes % (Manual) (20-40) % Monocytes % (Manual) (0-10) % Platelet Estimate (NORMAL) Polychromasia Hypochromasia (manual) Anisocytosis (manual) Ovalocytes Sodium 139 (132-148) mmol/L Potassium 4.2 (3.6-5.2) mmol/L Chloride 102 (98-107) mmol/L Carbon Dioxide 32 H (22-30) mmol/L Anion Gap 9 L (10-20) BUN 57 H (7-17) mg/dL Creatinine 0.7 (0.7-1.2) mg/dL Est GFR ( Amer) > 60 Est GFR (Non-Af Amer) > 60 POC Glucose (mg/dL) 224 H 223 H (65-110) mg/dL Random Glucose 238 H (65-105) mg/dL Calcium 8.4 L (8.6-10.4) mg/dl Phosphorus 2.5 (2.5-4.5) mg/dL Magnesium 2.4 H (1.6-2.3) mg/dL Total Bilirubin 1.0 (0.2-1.3) mg/dL AST 17 (14-36) U/L ALT 26 (9-52) U/L Alkaline Phosphatase 48 (38-126) U/L Total Protein 4.8 L (6.3-8.3) g/dL Albumin 2.5 L (3.5-5.0) g/dL Globulin 2.3 (2.2-3.9) gm/dL Albumin/Globulin Ratio 1.1 (1.0-2.1) Prealbumin (17.6-36.0) mg/dL Procalcitonin (0.19-0.49) NG/ML 04/09/18 04/09/18 04/08/18 Range/Units 06:06 04:09 23:26 WBC 9.5 (4.8-10.8) K/uL RBC 4.01 (3.80-5.20) Mil/uL Hgb 10.6 L (11.0-16.0) g/dL Hct 34.0 (34.0-47.0) % MCV 84.8 (81.0-99.0) fL MCH 26.4 L (27.0-31.0) pg MCHC 31.1 L (33.0-37.0) g/dL RDW 25.7 H (11.5-14.5) % Plt Count 207 (130-400) K/uL MPV 10.3 (7.2-11.7) fL Neut % (Auto) 85.1 H (50.0-75.0) % Lymph % (Auto) 2.3 L (20.0-40.0) % [place] % (Auto) 12.4 H (0.0-10.0) % Eos % (Auto) 0.0 (0.0-4.0) % Baso % (Auto) 0.2 (0.0-2.0) % Neut # (Auto) 8.1 H (1.8-7.0) K/uL Lymph # (Auto) 0.2 L (1.0-4.3) K/uL [place] # (Auto) 1.2 H (0.0-0.8) K/uL Eos # (Auto) 0.0 (0.0-0.7) K/uL Baso # (Auto) 0.0 (0.0-0.2) K/uL Neutrophils % (Manual) 90 H (50-75) % Lymphocytes % (Manual) 1 L (20-40) % Monocytes % (Manual) 9 (0-10) % Platelet Estimate Normal (NORMAL) Polychromasia Slight Hypochromasia (manual) Slight Anisocytosis (manual) Slight Ovalocytes Slight Sodium (132-148) mmol/L Potassium (3.6-5.2) mmol/L Chloride (98-107) mmol/L Carbon Dioxide (22-30) mmol/L Anion Gap (10-20) BUN (7-17) mg/dL Creatinine (0.7-1.2) mg/dL Est GFR ( Amer) Est GFR (Non-Af Amer) POC Glucose (mg/dL) 275 H 338 H (65-110) mg/dL Random Glucose (65-105) mg/dL Calcium (8.6-10.4) mg/dl Phosphorus (2.5-4.5) mg/dL Magnesium (1.6-2.3) mg/dL Total Bilirubin (0.2-1.3) mg/dL AST (14-36) U/L ALT (9-52) U/L Alkaline Phosphatase (38-126) U/L Total Protein (6.3-8.3) g/dL Albumin (3.5-5.0) g/dL Globulin (2.2-3.9) gm/dL Albumin/Globulin Ratio (1.0-2.1) Prealbumin (17.6-36.0) mg/dL Procalcitonin (0.19-0.49) NG/ML 04/08/18 04/08/18 04/08/18 Range/Units 20:18 16:47 16:47 WBC (4.8-10.8) K/uL RBC (3.80-5.20) Mil/uL Hgb (11.0-16.0) g/dL Hct (34.0-47.0) % MCV (81.0-99.0) fL MCH (27.0-31.0) pg MCHC (33.0-37.0) g/dL RDW (11.5-14.5) % Plt Count (130-400) K/uL MPV (7.2-11.7) fL Neut % (Auto) (50.0-75.0) % Lymph % (Auto) (20.0-40.0) % [place] % (Auto) (0.0-10.0) % Eos % (Auto) (0.0-4.0) % Baso % (Auto) (0.0-2.0) % Neut # (Auto) (1.8-7.0) K/uL Lymph # (Auto) (1.0-4.3) K/uL [place] # (Auto) (0.0-0.8) K/uL Eos # (Auto) (0.0-0.7) K/uL Baso # (Auto) (0.0-0.2) K/uL Neutrophils % (Manual) (50-75) % Lymphocytes % (Manual) (20-40) % Monocytes % (Manual) (0-10) % Platelet Estimate (NORMAL) Polychromasia Hypochromasia (manual) Anisocytosis (manual) Ovalocytes Sodium 140 (132-148) mmol/L Potassium 3.6 (3.6-5.2) mmol/L Chloride 105 (98-107) mmol/L Carbon Dioxide 33 H (22-30) mmol/L Anion Gap 6 L (10-20) BUN 54 H (7-17) mg/dL Creatinine 0.8 (0.7-1.2) mg/dL Est GFR ( Amer) > 60 Est GFR (Non-Af Amer) > 60 POC Glucose (mg/dL) 381 H (65-110) mg/dL Random Glucose 271 H (65-105) mg/dL Calcium 8.3 L (8.6-10.4) mg/dl Phosphorus (2.5-4.5) mg/dL Magnesium (1.6-2.3) mg/dL Total Bilirubin 1.0 (0.2-1.3) mg/dL AST 10 L (14-36) U/L ALT 24 (9-52) U/L Alkaline Phosphatase 43 (38-126) U/L Total Protein 4.6 L (6.3-8.3) g/dL Albumin 2.3 L (3.5-5.0) g/dL Globulin 2.3 (2.2-3.9) gm/dL Albumin/Globulin Ratio 1.0 (1.0-2.1) Prealbumin 17.8 (17.6-36.0) mg/dL Procalcitonin (0.19-0.49) NG/ML 04/08/18 04/08/18 Range/Units 16:47 16:04 WBC (4.8-10.8) K/uL RBC (3.80-5.20) Mil/uL Hgb (11.0-16.0) g/dL Hct (34.0-47.0) % MCV (81.0-99.0) fL MCH (27.0-31.0) pg MCHC (33.0-37.0) g/dL RDW (11.5-14.5) % Plt Count (130-400) K/uL MPV (7.2-11.7) fL Neut % (Auto) (50.0-75.0) % Lymph % (Auto) (20.0-40.0) % [place] % (Auto) (0.0-10.0) % Eos % (Auto) (0.0-4.0) % Baso % (Auto) (0.0-2.0) % Neut # (Auto) (1.8-7.0) K/uL Lymph # (Auto) (1.0-4.3) K/uL [place] # (Auto) (0.0-0.8) K/uL Eos # (Auto) (0.0-0.7) K/uL Baso # (Auto) (0.0-0.2) K/uL Neutrophils % (Manual) (50-75) % Lymphocytes % (Manual) (20-40) % Monocytes % (Manual) (0-10) % Platelet Estimate (NORMAL) Polychromasia Hypochromasia (manual) Anisocytosis (manual) Ovalocytes Sodium (132-148) mmol/L Potassium (3.6-5.2) mmol/L Chloride (98-107) mmol/L Carbon Dioxide (22-30) mmol/L Anion Gap (10-20) BUN (7-17) mg/dL Creatinine (0.7-1.2) mg/dL Est GFR ( Amer) Est GFR (Non-Af Amer) POC Glucose (mg/dL) 299 H (65-110) mg/dL Random Glucose (65-105) mg/dL Calcium (8.6-10.4) mg/dl Phosphorus (2.5-4.5) mg/dL Magnesium (1.6-2.3) mg/dL Total Bilirubin (0.2-1.3) mg/dL AST (14-36) U/L ALT (9-52) U/L Alkaline Phosphatase (38-126) U/L Total Protein (6.3-8.3) g/dL Albumin (3.5-5.0) g/dL Globulin (2.2-3.9) gm/dL Albumin/Globulin Ratio (1.0-2.1) Prealbumin (17.6-36.0) mg/dL Procalcitonin 0.18 L (0.19-0.49) NG/ML Laboratory Results - last 24 hr 04/08/18 04/08/18 04/08/18 16:04 16:47 16:47 WBC RBC Hgb Hct MCV MCH MCHC RDW Plt Count MPV Neut % (Auto) Lymph % (Auto) [place] % (Auto) Eos % (Auto) Baso % (Auto) Neut # (Auto) Lymph # (Auto) [place] # (Auto) Eos # (Auto) Baso # (Auto) Neutrophils % (Manual) Lymphocytes % (Manual) Monocytes % (Manual) Platelet Estimate Polychromasia Hypochromasia (manual) Anisocytosis (manual) Ovalocytes Sodium 140 Potassium 3.6 Chloride 105 Carbon Dioxide 33 H Anion Gap 6 L BUN 54 H Creatinine 0.8 Est GFR ( Amer) > 60 Est GFR (Non-Af Amer) > 60 POC Glucose (mg/dL) 299 H Random Glucose 271 H Calcium 8.3 L Phosphorus Magnesium Total Bilirubin 1.0 AST 10 L ALT 24 Alkaline Phosphatase 43 Total Protein 4.6 L Albumin 2.3 L Globulin 2.3 Albumin/Globulin Ratio 1.0 Prealbumin Procalcitonin 0.18 L 04/08/18 04/08/18 04/08/18 16:47 20:18 23:26 WBC RBC Hgb Hct MCV MCH MCHC RDW Plt Count MPV Neut % (Auto) Lymph % (Auto) [place] % (Auto) Eos % (Auto) Baso % (Auto) Neut # (Auto) Lymph # (Auto) [place] # (Auto) Eos # (Auto) Baso # (Auto) Neutrophils % (Manual) Lymphocytes % (Manual) Monocytes % (Manual) Platelet Estimate Polychromasia Hypochromasia (manual) Anisocytosis (manual) Ovalocytes Sodium Potassium Chloride Carbon Dioxide Anion Gap BUN Creatinine Est GFR ( Amer) Est GFR (Non-Af Amer) POC Glucose (mg/dL) 381 H 338 H Random Glucose Calcium Phosphorus Magnesium Total Bilirubin AST ALT Alkaline Phosphatase Total Protein Albumin Globulin Albumin/Globulin Ratio Prealbumin 17.8 Procalcitonin 04/09/18 04/09/18 04/09/18 04:09 06:06 06:06 WBC 9.5 RBC 4.01 Hgb 10.6 L Hct 34.0 MCV 84.8 MCH 26.4 L MCHC 31.1 L RDW 25.7 H Plt Count 207 MPV 10.3 Neut % (Auto) 85.1 H Lymph % (Auto) 2.3 L [place] % (Auto) 12.4 H Eos % (Auto) 0.0 Baso % (Auto) 0.2 Neut # (Auto) 8.1 H Lymph # (Auto) 0.2 L [place] # (Auto) 1.2 H Eos # (Auto) 0.0 Baso # (Auto) 0.0 Neutrophils % (Manual) 90 H Lymphocytes % (Manual) 1 L Monocytes % (Manual) 9 Platelet Estimate Normal Polychromasia Slight Hypochromasia (manual) Slight Anisocytosis (manual) Slight Ovalocytes Slight Sodium 139 Potassium 4.2 Chloride 102 Carbon Dioxide 32 H Anion Gap 9 L BUN 57 H Creatinine 0.7 Est GFR ( Amer) > 60 Est GFR (Non-Af Amer) > 60 POC Glucose (mg/dL) 275 H Random Glucose 238 H Calcium 8.4 L Phosphorus 2.5 Magnesium 2.4 H Total Bilirubin 1.0 AST 17 ALT 26 Alkaline Phosphatase 48 Total Protein 4.8 L Albumin 2.5 L Globulin 2.3 Albumin/Globulin Ratio 1.1 Prealbumin Procalcitonin 04/09/18 04/09/18 07:54 12:04 WBC RBC Hgb Hct MCV MCH MCHC RDW Plt Count MPV Neut % (Auto) Lymph % (Auto) [place] % (Auto) Eos % (Auto) Baso % (Auto) Neut # (Auto) Lymph # (Auto) [place] # (Auto) Eos # (Auto) Baso # (Auto) Neutrophils % (Manual) Lymphocytes % (Manual) Monocytes % (Manual) Platelet Estimate Polychromasia Hypochromasia (manual) Anisocytosis (manual) Ovalocytes Sodium Potassium Chloride Carbon Dioxide Anion Gap BUN Creatinine Est GFR ( Amer) Est GFR (Non-Af Amer) POC Glucose (mg/dL) 223 H 224 H Random Glucose Calcium Phosphorus Magnesium Total Bilirubin AST ALT Alkaline Phosphatase Total Protein Albumin Globulin Albumin/Globulin Ratio Prealbumin Procalcitonin Radiology Impressions: Radiology Impressions Joint Effusion US 04/07/18 08:09 IMPRESSION: Ultrasound guidance for left lung thoracentesis guidance as above. Joint Effusion US 04/09/18 09:00 IMPRESSION: Right pleural effusion demonstrated Critical Care Progress Note - Nutrition Nutrition: Nutrition Category Date Time Status Pureed [Dysphagia/Modified Consistency Diet] [DIET] Diets 04/02/18 Breakfast Active Assessment/Plan (1) Acute respiratory failure Current Visit: No Status: Acute (2) Atrial fibrillation and flutter Current Visit: No Status: Acute (3) CHF (congestive heart failure) Current Visit: No Status: Acute (4) Pleural effusion Current Visit: Yes Status: Acute Attending/Attestation - Attestation Notes (Text): 04/09/18 16:12 Patient seen and examined, case discussed with housestaff Breathing better Left chest tube draining straw-colored fluid afebrile Possible right-sided drainage Continue present treatment Patient started on pro-stat
[2018-04-09 08:26] LABS: LYMPHOCYTE 1 % (20-40); MONOCYTE 9 % (0-10); NEUTROPHIL 90 % (50-75); TOTAL CELLS COUNTED 100
[2018-04-09 08:28] LABS: PLATELET ESTIMATE NORMAL (NORMAL)
[2018-04-09 08:30] LABS: ANISOCYTOSIS SLIGHT; HYPOCHROMIC SLIGHT; OVALOCYTES SLIGHT; POLYCHROMIC SLIGHT
--- NOTE | 2018-04-09 09:11 | CP.PCM.PN ---
Subjective - Date & Time of Evaluation Date of Evaluation: 04/09/18 Time of Evaluation: 09:11 - Subjective Subjective: Podiatry Progress Note- Dr. Shah 82 y/o female seen and evaluated at bedside for RLE wounds, healed at this time. Patient is verbal today and says she is feeling ok. Has no new pedal complaints. Dressings in place to bilateral lower extremities. acute events overnight and no F/C/N/V/CP/SOB Objective - Vital Signs/Intake and Output Vital Signs (last 24 hours): Temp Pulse Resp BP Pulse Ox 98.5 F 87 18 112/89 98 04/09/18 08:00 04/09/18 08:06 04/09/18 08:06 04/09/18 08:06 04/09/18 08:06 Intake and Output: 04/09/18 04/09/18 06:59 18:59 Intake Total 750 120 Output Total 700 268 Balance 50 -148 - Medications Medications: Current Medications Acetaminophen (Tylenol 325mg Tab) 650 mg PO Q6 PRN PRN Reason: Fever >100.4 F Last Admin: 04/02/18 04:36 Dose: 650 mg Albuterol/Ipratropium (Duoneb 3 Mg/0.5 Mg (3 Ml) Ud) 3 ml INH RQ6 [facility] Last Admin: 04/09/18 07:48 Dose: 3 ml Amiodarone HCl (Cordarone) 200 mg PO DAILY [facility] Last Admin: 04/08/18 09:47 Dose: 200 mg Apixaban (Eliquis) 5 mg PO BID [facility] Last Admin: 04/08/18 18:44 Dose: 5 mg Ascorbic Acid (Vitamin C 500 Mg Tab) 500 mg PO BID [facility] Last Admin: 04/08/18 18:44 Dose: 500 mg Bacitracin (Bacitracin) 0 gm TOP BID [facility] Last Admin: 04/08/18 18:47 Dose: 1 applic Dextrose (Dextrose 50% Inj) 0 ml IV STAT PRN; Protocol PRN Reason: Hypoglycemia Protocol Dextrose (Glutose 15) 0 gm PO ONCE PRN; Protocol PRN Reason: Hypoglycemia Protocol Glucagon (Glucagen Diagnostic Kit) 0 mg IM STAT PRN; Protocol PRN Reason: Hypoglycemia Protocol Fluconazole (Diflucan Iv 100 Mg/50 Ml Ns) 50 mls @ 100 mls/hr IVPB DAILY [facility]; Protocol Last Admin: 04/08/18 10:17 Dose: 100 mls/hr Cefepime HCl (Maxipime Iv 1 Gm Premix) 1 gm in 50 mls @ 100 mls/hr IVPB Q12H [facility]; Protocol Last Admin: 04/09/18 03:31 Dose: 100 mls/hr Dextrose (Dextrose 5% In Water 1000 Ml) 1,000 mls @ 0 mls/hr IV .Q0M PRN; Protocol PRN Reason: Hypoglycemia Protocol Insulin Human Regular (Novolin R) 0 unit SC Q4 [facility]; Protocol Last Admin: 04/09/18 04:28 Dose: 3 u Lactulose (Enulose) 20 gm PO HS PRN PRN Reason: Constipation Last Admin: 04/02/18 17:20 Dose: 20 gm Methylprednisolone (Solu-Medrol) 20 mg IVP BID [facility] Last Admin: 04/08/18 10:09 Dose: 20 mg Multivitamins/Vitamin C (Multi-Delyn Liquid) 5 ml PO DAILY [facility] Last Admin: 04/08/18 09:47 Dose: 5 ml Nystatin (Nystop Topical Powder) 1 applic TOP BID [facility] Last Admin: 04/08/18 18:00 Dose: 1 applic Pantoprazole Sodium (Protonix Susp) 40 mg PO DAILY [facility] Last Admin: 04/08/18 09:48 Dose: 40 mg Silver Sulfadiazine (Silvadene 1% 20 Gm) 0 ea TOP BID [facility] Last Admin: 04/08/18 18:47 Dose: 1 applic Verapamil HCl (Calan Tab) 40 mg PO Q6H [facility] Last Admin: 04/09/18 03:27 Dose: 40 mg Zinc Sulfate (Zinc Sulfate 220 Mg Cap) 220 mg PO DAILY [facility] Last Admin: 04/08/18 09:47 Dose: 220 mg - Labs Labs: 04/09/18 06:06 04/09/18 06:06 PT 15.5 SECONDS (9.7-12.2) H 04/07/18 10:47 INR 1.4 04/07/18 10:47 APTT 34 SECONDS (21-34) 03/31/18 06:13 - Constitutional Appears: Well, Non-toxic, No Acute Distress - Extremities Exam Additional comments: Lower extremity focused exam: VASC: Pulses are palpable B/L. Temp gradient cool to cool from proximal to distal. CFT <3 secs x 10. No pedal edema present. DERM: Dry, flaky, hyperkeratotic skin noted to bilateral LE distal to the knee joint. Posterior leg exhibits raw skin abrasion with no clincial signs of infection, just mild sanguinous drainage noted on bandage. Unstageable decubitus pressure ulceration noted to right plantar posterior heel - skin lysing off of heel and excisionally debrided at bedside with manual manipulation down to healthy underlying skin, revealing no new breaks in skin or soft tissue NEURO: Gross sensation intact B/L ORTHO: No tenderness to palpation noted to lower extremity B/L - Neurological Exam Neurological Exam: Alert, Awake - Psychiatric Exam Psychiatric exam: Normal Affect, Normal Mood Assessment and Plan - Assessment and Plan (Free Text) Assessment: 82 y/o with right foot decubitus heel ulceration, stable and posterior right leg abrasion Plan: Patient seen and evaluated with Dr. Shah No leukocytosis, afebrile Wound cleansed, dressed with xeroform, ABD, DSD Right heel wound/eschar stable s/p debridement Continue multipodus boots at all times in bed Podiatry will continue to follow
[2018-04-09] MEDS: MethylPREDNISolone 40 mg Vial IVP SCH ×3 (10:00→17:37)
[2018-04-09] MEDS ORDERED: Potassium Chloride 20 mEq/15 ml LIQ UD PO SCH (10:00)
[2018-04-09] MEDS: Silver Sulfadiazine 1% Cream (20 gm) TOP SCH ×2 (10:30→17:37)
--- NOTE | 2018-04-09 10:40 | CP.PCM.PN ---
Subjective - Date & Time of Evaluation Date of Evaluation: 04/09/18 Time of Evaluation: 10:38 - Subjective Subjective: pt seen and examined still in ivu breathing beter chest tube draining less but they will do another one on the other side of the chest Objective - Vital Signs/Intake and Output Vital Signs (last 24 hours): Temp Pulse Resp BP Pulse Ox 98.5 F 87 18 112/89 98 04/09/18 08:00 04/09/18 08:06 04/09/18 08:06 04/09/18 08:06 04/09/18 08:06 Intake and Output: 04/09/18 04/09/18 06:59 18:59 Intake Total 750 120 Output Total 700 268 Balance 50 -148 - Medications Medications: Current Medications Acetaminophen (Tylenol 325mg Tab) 650 mg PO Q6 PRN PRN Reason: Fever >100.4 F Last Admin: 04/02/18 04:36 Dose: 650 mg Albuterol/Ipratropium (Duoneb 3 Mg/0.5 Mg (3 Ml) Ud) 3 ml INH RQ6 [facility] Last Admin: 04/09/18 07:48 Dose: 3 ml Amiodarone HCl (Cordarone) 200 mg PO DAILY [facility] Last Admin: 04/08/18 09:47 Dose: 200 mg Apixaban (Eliquis) 5 mg PO BID [facility] Last Admin: 04/08/18 18:44 Dose: 5 mg Ascorbic Acid (Vitamin C 500 Mg Tab) 500 mg PO BID [facility] Last Admin: 04/08/18 18:44 Dose: 500 mg Bacitracin (Bacitracin) 0 gm TOP BID [facility] Last Admin: 04/08/18 18:47 Dose: 1 applic Dextrose (Dextrose 50% Inj) 0 ml IV STAT PRN; Protocol PRN Reason: Hypoglycemia Protocol Dextrose (Glutose 15) 0 gm PO ONCE PRN; Protocol PRN Reason: Hypoglycemia Protocol Glucagon (Glucagen Diagnostic Kit) 0 mg IM STAT PRN; Protocol PRN Reason: Hypoglycemia Protocol Fluconazole (Diflucan Iv 100 Mg/50 Ml Ns) 50 mls @ 100 mls/hr IVPB DAILY [facility]; Protocol Last Admin: 04/08/18 10:17 Dose: 100 mls/hr Cefepime HCl (Maxipime Iv 1 Gm Premix) 1 gm in 50 mls @ 100 mls/hr IVPB Q12H [facility]; Protocol Last Admin: 04/09/18 03:31 Dose: 100 mls/hr Dextrose (Dextrose 5% In Water 1000 Ml) 1,000 mls @ 0 mls/hr IV .Q0M PRN; Protocol PRN Reason: Hypoglycemia Protocol Insulin Human Regular (Novolin R) 0 unit SC Q4 [facility]; Protocol Last Admin: 04/09/18 08:00 Dose: Not Given Lactulose (Enulose) 20 gm PO HS PRN PRN Reason: Constipation Last Admin: 04/02/18 17:20 Dose: 20 gm Methylprednisolone (Solu-Medrol) 20 mg IVP BID [facility] Last Admin: 04/08/18 10:09 Dose: 20 mg Multivitamins/Vitamin C (Multi-Delyn Liquid) 5 ml PO DAILY [facility] Last Admin: 04/08/18 09:47 Dose: 5 ml Nystatin (Nystop Topical Powder) 1 applic TOP BID [facility] Last Admin: 04/08/18 18:00 Dose: 1 applic Pantoprazole Sodium (Protonix Susp) 40 mg PO DAILY [facility] Last Admin: 04/08/18 09:48 Dose: 40 mg Silver Sulfadiazine (Silvadene 1% 20 Gm) 0 ea TOP BID [facility] Last Admin: 04/08/18 18:47 Dose: 1 applic Verapamil HCl (Calan Tab) 40 mg PO Q6H [facility] Last Admin: 04/09/18 03:27 Dose: 40 mg Zinc Sulfate (Zinc Sulfate 220 Mg Cap) 220 mg PO DAILY [facility] Last Admin: 04/08/18 09:47 Dose: 220 mg - Labs Labs: 04/09/18 06:06 04/09/18 06:06 PT 15.5 SECONDS (9.7-12.2) H 04/07/18 10:47 INR 1.4 04/07/18 10:47 APTT 34 SECONDS (21-34) 03/31/18 06:13 - Constitutional Appears: Non-toxic - Eye Exam Eye Exam: Normal appearance Pupil Exam: NORMAL ACCOMODATION - ENT Exam ENT Exam: Mucous Membranes Moist - Neck Exam Neck Exam: Normal Inspection - Respiratory Exam Respiratory Exam: Decreased Breath Sounds - Cardiovascular Exam Cardiovascular Exam: REGULAR RHYTHM - Exam Exam: NORMAL INSPECTION - Back Exam Back Exam: NORMAL INSPECTION - Neurological Exam Neurological Exam: Oriented x3 - Psychiatric Exam Psychiatric exam: Normal Affect - Skin Skin Exam: Pallor Assessment and Plan - Assessment and Plan (Free Text) Assessment: chf pleural efusin chest tube Plan: as per orders
[2018-04-09] MEDS: Bacitracin Ointment 30 GM TUBE TOP SCH ×2 (10:45→17:36)
[2018-04-09] MEDS: Fluconazole IV 100mg/50 ml NS 50 ML IVPB SCH (11:31)
[2018-04-09] MEDS: Multiple Vitamins Oral Solution PO SCH (11:33)
[2018-04-09] MEDS: Pantoprazole 40 mg Susp UD PO SCH (11:34)
--- NOTE | 2018-04-09 15:25 | US ---
Date of service: 04/09/2018 PROCEDURE: Ultrasound right hemithorax HISTORY: right side pleural effusion COMPARISON: Not available TECHNIQUE: Ultrasound of right nyla thorax was performed in a targeted fashion for evaluation of pleural effusion FINDINGS: The examination demonstrates a moderate right pleural effusion. A marking was placed on the patient's skin surface to guide thoracentesis to be performed by Dr. Amador. IMPRESSION: Right pleural effusion demonstrated
--- NOTE | 2018-04-09 18:01 | CP.PCM.PN ---
Subjective - Date & Time of Evaluation Date of Evaluation: 04/09/18 Time of Evaluation: 08:00 - Subjective Subjective: iv rx renewed seen Iin ICU Objective - Vital Signs/Intake and Output Vital Signs (last 24 hours): Temp Pulse Resp BP Pulse Ox 98.6 F 100 H 20 100/64 99 04/09/18 16:00 04/09/18 16:06 04/09/18 16:06 04/09/18 16:06 04/09/18 16:06 Intake and Output: 04/09/18 04/09/18 06:59 18:59 Intake Total 750 1590 Output Total 700 278 Balance 50 1312 - Medications Medications: Current Medications Acetaminophen (Tylenol 325mg Tab) 650 mg PO Q6 PRN PRN Reason: Fever >100.4 F Last Admin: 04/02/18 04:36 Dose: 650 mg Albuterol/Ipratropium (Duoneb 3 Mg/0.5 Mg (3 Ml) Ud) 3 ml INH RQ6 [facility] Last Admin: 04/09/18 14:04 Dose: 3 ml Amiodarone HCl (Cordarone) 200 mg PO DAILY [facility] Last Admin: 04/09/18 12:20 Dose: 200 mg Apixaban (Eliquis) 5 mg PO BID [facility] Last Admin: 04/09/18 17:37 Dose: 5 mg Ascorbic Acid (Vitamin C 500 Mg Tab) 500 mg PO BID [facility] Last Admin: 04/09/18 17:36 Dose: 500 mg Bacitracin (Bacitracin) 0 gm TOP BID [facility] Last Admin: 04/09/18 17:36 Dose: 1 applic Dextrose (Dextrose 50% Inj) 0 ml IV STAT PRN; Protocol PRN Reason: Hypoglycemia Protocol Dextrose (Glutose 15) 0 gm PO ONCE PRN; Protocol PRN Reason: Hypoglycemia Protocol Glucagon (Glucagen Diagnostic Kit) 0 mg IM STAT PRN; Protocol PRN Reason: Hypoglycemia Protocol Fluconazole (Diflucan Iv 100 Mg/50 Ml Ns) 50 mls @ 100 mls/hr IVPB DAILY [facility]; Protocol Last Admin: 04/09/18 11:31 Dose: 100 mls/hr Cefepime HCl (Maxipime Iv 1 Gm Premix) 1 gm in 50 mls @ 100 mls/hr IVPB Q12H [facility]; Protocol Last Admin: 04/09/18 17:30 Dose: 100 mls/hr Dextrose (Dextrose 5% In Water 1000 Ml) 1,000 mls @ 0 mls/hr IV .Q0M PRN; Protocol PRN Reason: Hypoglycemia Protocol Insulin Human Regular (Novolin R) 0 unit SC Q4 [facility]; Protocol Last Admin: 04/09/18 16:30 Dose: 2 u Lactulose (Enulose) 20 gm PO HS PRN PRN Reason: Constipation Last Admin: 04/02/18 17:20 Dose: 20 gm Methylprednisolone (Solu-Medrol) 20 mg IVP BID [facility] Last Admin: 04/09/18 17:37 Dose: 20 mg Multivitamins/Vitamin C (Multi-Delyn Liquid) 5 ml PO DAILY [facility] Last Admin: 04/09/18 11:33 Dose: 5 ml Nystatin (Nystop Topical Powder) 1 applic TOP BID [facility] Last Admin: 04/09/18 17:36 Dose: 1 applic Pantoprazole Sodium (Protonix Susp) 40 mg PO DAILY [facility] Last Admin: 04/09/18 11:34 Dose: 40 mg Silver Sulfadiazine (Silvadene 1% 20 Gm) 0 ea TOP BID [facility] Last Admin: 04/09/18 17:37 Dose: 1 applic Verapamil HCl (Calan Tab) 40 mg PO Q6H [facility] Last Admin: 04/09/18 15:00 Dose: Not Given Zinc Sulfate (Zinc Sulfate 220 Mg Cap) 220 mg PO DAILY [facility] Last Admin: 04/09/18 11:34 Dose: 220 mg - Labs Labs: 04/09/18 06:06 04/09/18 06:06 PT 15.5 SECONDS (9.7-12.2) H 04/07/18 10:47 INR 1.4 04/07/18 10:47 APTT 34 SECONDS (21-34) 03/31/18 06:13 - Constitutional Appears: Non-toxic, Chronically Ill - Eye Exam Eye Exam: absent: Scleral icterus - Neck Exam Neck Exam: absent: Lymphadenopathy - Respiratory Exam Respiratory Exam: Decreased Breath Sounds - Cardiovascular Exam Cardiovascular Exam: REGULAR RHYTHM - GI/Abdominal Exam GI & Abdominal Exam: Distended, Soft - Rectal Exam Rectal Exam: Deferred - Exam Exam: NORMAL INSPECTION - Extremities Exam Extremities Exam: absent: Pedal Edema - Back Exam Back Exam: absent: CVA tenderness (L), CVA tenderness (R) - Neurological Exam Neurological Exam: Alert, Awake Assessment and Plan (1) Acute respiratory failure Status: Acute (2) Atrial fibrillation and flutter Status: Acute (3) CHF (congestive heart failure) Status: Acute (4) Pleural effusion Status: Acute - Assessment and Plan (Free Text) Assessment: slowly improving possible right sided thoracentesis
[2018-04-10] MEDS: Albuterol-Ipratrop 3 mg / 0.5 (3 ml) UD INH SCH ×4 (01:10→19:21)
[2018-04-10] MEDS: Cefepime IV 1 gm in Dextrose 1 GM/50 ML BAG IVPB SCH ×2 (03:30→17:07)
[2018-04-10] MEDS: (Novolin R) Insulin Human Regular 100 units/ml vial SC SCH ×6 (03:57→20:17)
[2018-04-10 05:58] LABS: HEMOGLOBIN 10.5 g/dL (11.0-16.0); LYMPH # 0.1 K/uL (1.0-4.3); LYMPH % 1.5 % (20.0-40.0); MEAN CELL VOLUME 84.6 fL (81.0-99.0); MEAN CORPUSCULAR HEMOGLOBIN 25.7 pg (27.0-31.0); MEAN CORPUSCULAR HGB CONC 30.4 g/dL (33.0-37.0); MONO # 0.8 K/uL (0.0-0.8); MONO % 9.2 % (0.0-10.0); NEUT # 7.6 K/uL (1.8-7.0); NEUT % 89.3 % (50.0-75.0); PLATELET COUNT 201 K/uL (130-400); RED CELL DISTRIBUTION WIDTH 25.3 % (11.5-14.5); WHITE BLOOD COUNT 8.5 K/uL (4.8-10.8)
[2018-04-10 06:20] LABS: ALBUMIN 2.5 g/dL (3.5-5.0); ALT/SGPT 25 U/L (9-52); AST/SGOT 12 U/L (14-36); BLOOD UREA NITROGEN 54 mg/dL (7-17); CALCIUM 8.3 mg/dl (8.6-10.4); GFR NON-AFRICAN AMERICAN 60
[2018-04-10 08:18] LABS: ANISOCYTOSIS MODERATE; BANDS 1 % (0-2); HYPOCHROMIC MODERATE; LYMPHOCYTE 1 % (20-40); MONOCYTE 8 % (0-10); NEUTROPHIL 90 % (50-75); PLATELET ESTIMATE NORMAL (NORMAL); TOTAL CELLS COUNTED 100
[2018-04-10 08:19] LABS: LARGE PLATELETS PRESENT; OVALOCYTES MODERATE; POIKILOCYTOSIS SLIGHT; TARGET CELLS SLIGHT
--- NOTE | 2018-04-10 09:28 | CP.CCUPN ---
CCU Subjective - Physician Review Events Since Last Encounter (Free Text): 04/10/18 09:26 Patient is now using 40% FiO2. Mild respiratory distress noted. Generalized edema noted Patient has a right arm PICC midline catheter noted. Generalized anasarca. Right-sided pleural effusion in the chest x-ray which was done today showing. Patient is already on anticoagulation. On examination: Chest bilateral decreased air entry Edema generalized Abdominal obesity noted Unstageable sacral decubiti Leg ulcers venous ulcers patient is already on multiple medications. On amiodarone. We will change the Cardizem. Chest x-ray showing evidence of right-sided pleural effusion. She will benefit having the pigtail catheter again. Overall prognosis very poor. Add diuretics, will follow patient. Patient is a 82-year-old female with a dementia atrial flutter fibrillation, congestive heart failure pleural effusion aspiration pneumonia chronic venous ulcers of the leg. Continue the ICU treatment Critical Care Time Spent (in minutes): 45 CCU Objective - Vital Signs / Intake & Output Vital Signs (Last 4 hours): Vital Signs Temp Pulse Resp BP Pulse Ox 04/10/18 07:56 90 19 117/75 96 04/10/18 06:33 90 16 52/21 L 100 04/10/18 06:00 98.5 F 99 04/10/18 05:43 83 18 116/87 97 Intake and Output (Last 8hrs): Intake & Output 04/09/18 04/10/18 04/10/18 22:59 06:59 14:59 Intake Total 730 390 0 Output Total 500 1000 Balance 230 -610 0 Intake: Intake, IV Amount 50 50 Right arm mid line 50 50 Oral 680 340 0 Output: Urine 500 1000 Urine, Voided 500 1000 Other: # Bowel Movements 0 - Physical Exam Head: Positive for: Atraumatic, Normocephalic, Other (central line in left IJ) Pupils: Positive for: PERRL Extroacular Muscles: Positive for: EOMI Conjunctiva: Positive for: Normal Mouth: Positive for: Dry, Other (on venti mask) Neck: Positive for: Normal Range of Motion. Negative for: JVD, Lymphadenopathy Respiratory/Chest: Positive for: Decreased Breath Sounds. Negative for: Respiratory Distress, Accessory Muscle Use, Wheezes, Tachypneic Cardiovascular: Positive for: Regular Rate and Rhythm, Normal S1, S2. Negative for: Murmurs, Irregular Rhythm Abdomen: Positive for: Normal Bowel Sounds. Negative for: Tenderness, Distention, Peritoneal Signs Genitourinary/Pelvic Exam: Positive for: Other ([place] in place for strict Is/Os) Upper Extremity: Positive for: Normal Inspection, Edema. Negative for: Cyanosis Lower Extremity: Positive for: Normal Inspection, Edema Neurological: Positive for: GCS=15 Skin: Positive for: Dry, Normal Color, Other (chest tube in posterior left back, right foot ulcer, and sacral unstageable ulcer). Negative for: Diaphoretic Psychiatric: Positive for: Alert, Oriented x 3 - Medications Active Medications: Active Medications Generic Name Dose Route Start Last Admin Trade Name Freq PRN Reason Stop Dose Admin Acetaminophen 650 mg 03/23/18 15:59 04/02/18 04:36 Tylenol 325mg Tab PO 650 mg Q6 PRN Administration Fever >100.4 F Albuterol/Ipratropium 3 ml 04/02/18 14:00 04/10/18 07:56 Duoneb 3 Mg/0.5 Mg (3 Ml) Ud INH 3 ml RQ6 KEV Administration Amiodarone HCl 200 mg 03/23/18 16:45 04/09/18 12:20 Cordarone PO 200 mg DAILY KEV Administration Apixaban 5 mg 03/23/18 18:00 04/09/18 17:37 Eliquis PO 5 mg BID KEV Administration Ascorbic Acid 500 mg 04/02/18 10:00 04/09/18 17:36 Vitamin C 500 Mg Tab PO 500 mg BID KEV Administration Bacitracin 0 gm 04/01/18 18:00 04/09/18 17:36 Bacitracin TOP 1 applic BID KEV Administration Fluconazole 50 mls @ 100 mls/hr 03/27/18 10:00 04/09/18 11:31 Diflucan Iv 100 Mg/50 Ml Ns IVPB 100 mls/hr DAILY KEV Administration Protocol Cefepime HCl 1 gm in 50 mls @ 100 mls/hr 04/01/18 16:30 04/10/18 03:30 Maxipime Iv 1 Gm Premix IVPB 100 mls/hr Q12H KEV Administration Protocol Insulin Human Regular 0 unit 04/08/18 20:15 04/10/18 08:04 Novolin R SC 2 u Q4 KEV Administration Protocol Lactulose 20 gm 03/30/18 19:13 04/02/18 17:20 Enulose PO 20 gm HS PRN Administration Constipation Methylprednisolone 20 mg 04/08/18 10:00 04/09/18 17:37 Solu-Medrol IVP 20 mg BID KEV Administration Multivitamins/Vitamin C 5 ml 04/02/18 10:00 04/09/18 11:33 Multi-Delyn Liquid PO 5 ml DAILY KEV Administration Nystatin 1 applic 03/23/18 18:00 04/09/18 17:36 Nystop Topical Powder TOP 1 applic BID KEV Administration Pantoprazole Sodium 40 mg 03/27/18 10:00 04/09/18 11:34 Protonix Susp PO 40 mg DAILY EKV Administration Silver Sulfadiazine 0 ea 03/26/18 10:00 04/09/18 17:37 Silvadene 1% 20 Gm TOP 1 applic BID KEV Administration Zinc Sulfate 220 mg 04/02/18 10:00 04/09/18 11:34 Zinc Sulfate 220 Mg Cap PO 220 mg DAILY KEV Administration - Patient Studies Lab Studies: Lab Studies 04/10/18 04/10/18 04/10/18 Range/Units 05:49 05:49 03:49 WBC 8.5 (4.8-10.8) K/uL RBC 4.10 (3.80-5.20) Mil/uL Hgb 10.5 L (11.0-16.0) g/dL Hct 34.6 (34.0-47.0) % MCV 84.6 (81.0-99.0) fL MCH 25.7 L (27.0-31.0) pg MCHC 30.4 L (33.0-37.0) g/dL RDW 25.3 H (11.5-14.5) % Plt Count 201 (130-400) K/uL MPV 10.0 (7.2-11.7) fL Neut % (Auto) 89.3 H (50.0-75.0) % Lymph % (Auto) 1.5 L (20.0-40.0) % [place] % (Auto) 9.2 (0.0-10.0) % Eos % (Auto) 0.0 (0.0-4.0) % Baso % (Auto) 0.0 (0.0-2.0) % Neut # (Auto) 7.6 H (1.8-7.0) K/uL Lymph # (Auto) 0.1 L (1.0-4.3) K/uL [place] # (Auto) 0.8 (0.0-0.8) K/uL Eos # (Auto) 0.0 (0.0-0.7) K/uL Baso # (Auto) 0.0 (0.0-0.2) K/uL Neutrophils % (Manual) 90 H (50-75) % Band Neutrophils % 1 (0-2) % Lymphocytes % (Manual) 1 L (20-40) % Monocytes % (Manual) 8 (0-10) % Platelet Estimate Normal (NORMAL) Large Platelets Present Hypochromasia (manual) Moderate Poikilocytosis (manual Slight Anisocytosis (manual) Moderate Target Cells Slight Ovalocytes Moderate Sodium 138 (132-148) mmol/L Potassium 4.1 (3.6-5.2) mmol/L Chloride 101 (98-107) mmol/L Carbon Dioxide 31 H (22-30) mmol/L Anion Gap 10 (10-20) BUN 54 H (7-17) mg/dL Creatinine 0.9 (0.7-1.2) mg/dL Est GFR ( Amer) > 60 Est GFR (Non-Af Amer) 60 POC Glucose (mg/dL) 428 H* (65-110) mg/dL Random Glucose 206 H (65-105) mg/dL Calcium 8.3 L (8.6-10.4) mg/dl Phosphorus 3.1 (2.5-4.5) mg/dL Magnesium 2.3 (1.6-2.3) mg/dL Total Bilirubin 0.9 (0.2-1.3) mg/dL AST 12 L D (14-36) U/L ALT 25 (9-52) U/L Alkaline Phosphatase 49 (38-126) U/L Total Protein 4.8 L (6.3-8.3) g/dL Albumin 2.5 L (3.5-5.0) g/dL Globulin 2.4 (2.2-3.9) gm/dL Albumin/Globulin Ratio 1.0 (1.0-2.1) 04/10/18 04/09/18 04/09/18 Range/Units 00:03 19:45 16:10 WBC (4.8-10.8) K/uL RBC (3.80-5.20) Mil/uL Hgb (11.0-16.0) g/dL Hct (34.0-47.0) % MCV (81.0-99.0) fL MCH (27.0-31.0) pg MCHC (33.0-37.0) g/dL RDW (11.5-14.5) % Plt Count (130-400) K/uL MPV (7.2-11.7) fL Neut % (Auto) (50.0-75.0) % Lymph % (Auto) (20.0-40.0) % [place] % (Auto) (0.0-10.0) % Eos % (Auto) (0.0-4.0) % Baso % (Auto) (0.0-2.0) % Neut # (Auto) (1.8-7.0) K/uL Lymph # (Auto) (1.0-4.3) K/uL [place] # (Auto) (0.0-0.8) K/uL Eos # (Auto) (0.0-0.7) K/uL Baso # (Auto) (0.0-0.2) K/uL Neutrophils % (Manual) (50-75) % Band Neutrophils % (0-2) % Lymphocytes % (Manual) (20-40) % Monocytes % (Manual) (0-10) % Platelet Estimate (NORMAL) Large Platelets Hypochromasia (manual) Poikilocytosis (manual Anisocytosis (manual) Target Cells Ovalocytes Sodium (132-148) mmol/L Potassium (3.6-5.2) mmol/L Chloride (98-107) mmol/L Carbon Dioxide (22-30) mmol/L Anion Gap (10-20) BUN (7-17) mg/dL Creatinine (0.7-1.2) mg/dL Est GFR ( Amer) Est GFR (Non-Af Amer) POC Glucose (mg/dL) 259 H 279 H 226 H (65-110) mg/dL Random Glucose (65-105) mg/dL Calcium (8.6-10.4) mg/dl Phosphorus (2.5-4.5) mg/dL Magnesium (1.6-2.3) mg/dL Total Bilirubin (0.2-1.3) mg/dL AST (14-36) U/L ALT (9-52) U/L Alkaline Phosphatase (38-126) U/L Total Protein (6.3-8.3) g/dL Albumin (3.5-5.0) g/dL Globulin (2.2-3.9) gm/dL Albumin/Globulin Ratio (1.0-2.1) 04/09/18 Range/Units 12:04 WBC (4.8-10.8) K/uL RBC (3.80-5.20) Mil/uL Hgb (11.0-16.0) g/dL Hct (34.0-47.0) % MCV (81.0-99.0) fL MCH (27.0-31.0) pg MCHC (33.0-37.0) g/dL RDW (11.5-14.5) % Plt Count (130-400) K/uL MPV (7.2-11.7) fL Neut % (Auto) (50.0-75.0) % Lymph % (Auto) (20.0-40.0) % [place] % (Auto) (0.0-10.0) % Eos % (Auto) (0.0-4.0) % Baso % (Auto) (0.0-2.0) % Neut # (Auto) (1.8-7.0) K/uL Lymph # (Auto) (1.0-4.3) K/uL [place] # (Auto) (0.0-0.8) K/uL Eos # (Auto) (0.0-0.7) K/uL Baso # (Auto) (0.0-0.2) K/uL Neutrophils % (Manual) (50-75) % Band Neutrophils % (0-2) % Lymphocytes % (Manual) (20-40) % Monocytes % (Manual) (0-10) % Platelet Estimate (NORMAL) Large Platelets Hypochromasia (manual) Poikilocytosis (manual Anisocytosis (manual) Target Cells Ovalocytes Sodium (132-148) mmol/L Potassium (3.6-5.2) mmol/L Chloride (98-107) mmol/L Carbon Dioxide (22-30) mmol/L Anion Gap (10-20) BUN (7-17) mg/dL Creatinine (0.7-1.2) mg/dL Est GFR ( Amer) Est GFR (Non-Af Amer) POC Glucose (mg/dL) 224 H (65-110) mg/dL Random Glucose (65-105) mg/dL Calcium (8.6-10.4) mg/dl Phosphorus (2.5-4.5) mg/dL Magnesium (1.6-2.3) mg/dL Total Bilirubin (0.2-1.3) mg/dL AST (14-36) U/L ALT (9-52) U/L Alkaline Phosphatase (38-126) U/L Total Protein (6.3-8.3) g/dL Albumin (3.5-5.0) g/dL Globulin (2.2-3.9) gm/dL Albumin/Globulin Ratio (1.0-2.1) Laboratory Results - last 24 hr 04/09/18 04/09/18 04/09/18 12:04 16:10 19:45 WBC RBC Hgb Hct MCV MCH MCHC RDW Plt Count MPV Neut % (Auto) Lymph % (Auto) [place] % (Auto) Eos % (Auto) Baso % (Auto) Neut # (Auto) Lymph # (Auto) [place] # (Auto) Eos # (Auto) Baso # (Auto) Neutrophils % (Manual) Band Neutrophils % Lymphocytes % (Manual) Monocytes % (Manual) Platelet Estimate Large Platelets Hypochromasia (manual) Poikilocytosis (manual Anisocytosis (manual) Target Cells Ovalocytes Sodium Potassium Chloride Carbon Dioxide Anion Gap BUN Creatinine Est GFR ( Amer) Est GFR (Non-Af Amer) POC Glucose (mg/dL) 224 H 226 H 279 H Random Glucose Calcium Phosphorus Magnesium Total Bilirubin AST ALT Alkaline Phosphatase Total Protein Albumin Globulin Albumin/Globulin Ratio 04/10/18 04/10/18 04/10/18 00:03 03:49 05:49 WBC 8.5 RBC 4.10 Hgb 10.5 L Hct 34.6 MCV 84.6 MCH 25.7 L MCHC 30.4 L RDW 25.3 H Plt Count 201 MPV 10.0 Neut % (Auto) 89.3 H Lymph % (Auto) 1.5 L [place] % (Auto) 9.2 Eos % (Auto) 0.0 Baso % (Auto) 0.0 Neut # (Auto) 7.6 H Lymph # (Auto) 0.1 L [place] # (Auto) 0.8 Eos # (Auto) 0.0 Baso # (Auto) 0.0 Neutrophils % (Manual) 90 H Band Neutrophils % 1 Lymphocytes % (Manual) 1 L Monocytes % (Manual) 8 Platelet Estimate Normal Large Platelets Present Hypochromasia (manual) Moderate Poikilocytosis (manual Slight Anisocytosis (manual) Moderate Target Cells Slight Ovalocytes Moderate Sodium Potassium Chloride Carbon Dioxide Anion Gap BUN Creatinine Est GFR ( Amer) Est GFR (Non-Af Amer) POC Glucose (mg/dL) 259 H 428 H* Random Glucose Calcium Phosphorus Magnesium Total Bilirubin AST ALT Alkaline Phosphatase Total Protein Albumin Globulin Albumin/Globulin Ratio 04/10/18 05:49 WBC RBC Hgb Hct MCV MCH MCHC RDW Plt Count MPV Neut % (Auto) Lymph % (Auto) [place] % (Auto) Eos % (Auto) Baso % (Auto) Neut # (Auto) Lymph # (Auto) [place] # (Auto) Eos # (Auto) Baso # (Auto) Neutrophils % (Manual) Band Neutrophils % Lymphocytes % (Manual) Monocytes % (Manual) Platelet Estimate Large Platelets Hypochromasia (manual) Poikilocytosis (manual Anisocytosis (manual) Target Cells Ovalocytes Sodium 138 Potassium 4.1 Chloride 101 Carbon Dioxide 31 H Anion Gap 10 BUN 54 H Creatinine 0.9 Est GFR ( Amer) > 60 Est GFR (Non-Af Amer) 60 POC Glucose (mg/dL) Random Glucose 206 H Calcium 8.3 L Phosphorus 3.1 Magnesium 2.3 Total Bilirubin 0.9 AST 12 L D ALT 25 Alkaline Phosphatase 49 Total Protein 4.8 L Albumin 2.5 L Globulin 2.4 Albumin/Globulin Ratio 1.0 Radiology Impressions: Radiology Impressions Joint Effusion US 04/09/18 09:00 IMPRESSION: Right pleural effusion demonstrated Fingerstick Blood Sugar Results: 245 Critical Care Progress Note - Nutrition Nutrition: Nutrition Category Date Time Status Pureed [Dysphagia/Modified Consistency Diet] [DIET] Diets 04/02/18 Breakfast Active
[2018-04-10] MEDS: MethylPREDNISolone 40 mg Vial IVP SCH ×2 (10:21→17:13)
[2018-04-10] MEDS: Pantoprazole 40 mg Susp UD PO SCH (10:22)
[2018-04-10] MEDS: Multiple Vitamins Oral Solution PO SCH (10:23)
[2018-04-10] MEDS: Fluconazole IV 100mg/50 ml NS 50 ML IVPB SCH (10:29)
[2018-04-10] MEDS: Silver Sulfadiazine 1% Cream (20 gm) TOP SCH ×2 (10:30→17:12)
[2018-04-10] MEDS: Bacitracin Ointment 30 GM TUBE TOP SCH ×2 (10:31→17:11)
--- NOTE | 2018-04-10 10:34 | RAD ---
HISTORY: ff up/vented COMPARISON: Chest x-ray performed 04/08/18 TECHNIQUE: Chest, one view. FINDINGS: Examination limited by habitus. LUNGS: Increasing large right-sided pleural effusion and associated consolidation. Moderate left pleural effusion/consolidation. Left-sided pigtail catheter. No definite pneumothorax. CARDIOVASCULAR: Partially obscured cardiomegaly. Ectatic aorta. OSSEOUS STRUCTURES: Degenerative changes. VISUALIZED UPPER ABDOMEN: Unremarkable. OTHER FINDINGS: None. IMPRESSION: Increasing large right-sided pleural effusion and associated consolidation. Moderate left pleural effusion/consolidation. Left-sided pigtail catheter. Cardiomegaly.
--- NOTE | 2018-04-10 13:48 | CP.PCM.PN ---
Subjective - Date & Time of Evaluation Date of Evaluation: 04/10/18 Time of Evaluation: 13:46 - Subjective Subjective: pt seen ang examined still in ccu has chest tube still draining flud Objective - Vital Signs/Intake and Output Vital Signs (last 24 hours): Temp Pulse Resp BP Pulse Ox 97.8 F 82 21 113/77 98 04/10/18 12:00 04/10/18 13:33 04/10/18 13:33 04/10/18 13:33 04/10/18 13:33 Intake and Output: 04/10/18 04/10/18 06:59 18:59 Intake Total 510 200 Output Total 1500 800 Balance -990 -600 - Medications Medications: Current Medications Acetaminophen (Tylenol 325mg Tab) 650 mg PO Q6 PRN PRN Reason: Fever >100.4 F Last Admin: 04/02/18 04:36 Dose: 650 mg Albuterol/Ipratropium (Duoneb 3 Mg/0.5 Mg (3 Ml) Ud) 3 ml INH RQ6 [facility] Last Admin: 04/10/18 13:08 Dose: 3 ml Amiodarone HCl (Cordarone) 200 mg PO DAILY KEV Last Admin: 04/10/18 10:25 Dose: 200 mg Apixaban (Eliquis) 5 mg PO BID KEV Last Admin: 04/10/18 10:22 Dose: 5 mg Ascorbic Acid (Vitamin C 500 Mg Tab) 500 mg PO BID KEV Last Admin: 04/10/18 10:22 Dose: 500 mg Bacitracin (Bacitracin) 0 gm TOP BID KEV Last Admin: 04/10/18 10:31 Dose: 1 applic Diltiazem HCl (Cardizem) 30 mg PO Q8 KEV Last Admin: 04/10/18 13:43 Dose: 30 mg Fluconazole (Diflucan Iv 100 Mg/50 Ml Ns) 50 mls @ 100 mls/hr IVPB DAILY KEV; Protocol Last Admin: 04/10/18 10:29 Dose: 100 mls/hr Cefepime HCl (Maxipime Iv 1 Gm Premix) 1 gm in 50 mls @ 100 mls/hr IVPB Q12H KEV; Protocol Last Admin: 04/10/18 03:30 Dose: 100 mls/hr Insulin Human Regular (Novolin R) 0 unit SC Q4 KEV; Protocol Last Admin: 04/10/18 12:00 Dose: Not Given Lactulose (Enulose) 20 gm PO HS PRN PRN Reason: Constipation Last Admin: 04/02/18 17:20 Dose: 20 gm Methylprednisolone (Solu-Medrol) 20 mg IVP BID [facility] Last Admin: 04/10/18 10:21 Dose: 20 mg Multivitamins/Vitamin C (Multi-Delyn Liquid) 5 ml PO DAILY [facility] Last Admin: 04/10/18 10:23 Dose: 5 ml Nystatin (Nystop Topical Powder) 1 applic TOP BID [facility] Last Admin: 04/10/18 10:31 Dose: 1 applic Pantoprazole Sodium (Protonix Susp) 40 mg PO DAILY [facility] Last Admin: 04/10/18 10:22 Dose: 40 mg Silver Sulfadiazine (Silvadene 1% 20 Gm) 0 ea TOP BID [facility] Last Admin: 04/10/18 10:30 Dose: 1 applic Zinc Sulfate (Zinc Sulfate 220 Mg Cap) 220 mg PO DAILY [facility] Last Admin: 04/10/18 10:22 Dose: 220 mg - Labs Labs: 04/10/18 05:49 04/10/18 05:49 PT 15.5 SECONDS (9.7-12.2) H 04/07/18 10:47 INR 1.4 04/07/18 10:47 APTT 34 SECONDS (21-34) 03/31/18 06:13 - Constitutional Appears: Non-toxic - Head Exam Head Exam: ATRAUMATIC - Eye Exam Eye Exam: Normal appearance Pupil Exam: NORMAL ACCOMODATION - ENT Exam ENT Exam: Mucous Membranes Moist - Neck Exam Neck Exam: Normal Inspection - Respiratory Exam Respiratory Exam: Decreased Breath Sounds - Cardiovascular Exam Cardiovascular Exam: REGULAR RHYTHM - GI/Abdominal Exam GI & Abdominal Exam: Normal Bowel Sounds - Extremities Exam Extremities Exam: Normal Inspection - Back Exam Back Exam: NORMAL INSPECTION - Neurological Exam Neurological Exam: Awake, Oriented x3 - Psychiatric Exam Psychiatric exam: Normal Affect - Skin Skin Exam: Pallor Assessment and Plan - Assessment and Plan (Free Text) Assessment: chf pleural efusion chest tube oeadeama lower ext obesity weekness Plan: cont as per orders
--- NOTE | 2018-04-10 16:47 | CP.PCM.PN ---
Subjective - Date & Time of Evaluation Date of Evaluation: 04/10/18 Time of Evaluation: 16:00 - Subjective Subjective: Patient seen and examined On Ventimask No respiratory distress chest tube draining minimal fluid Awake and responsive Fair appetite Objective - Vital Signs/Intake and Output Vital Signs (last 24 hours): Temp Pulse Resp BP Pulse Ox 97.8 F 88 23 116/80 98 04/10/18 12:00 04/10/18 15:35 04/10/18 15:35 04/10/18 15:35 04/10/18 15:35 Intake and Output: 04/10/18 04/10/18 06:59 18:59 Intake Total 510 300 Output Total 1500 1300 Balance -990 -1000 - Medications Medications: Current Medications Acetaminophen (Tylenol 325mg Tab) 650 mg PO Q6 PRN PRN Reason: Fever >100.4 F Last Admin: 04/02/18 04:36 Dose: 650 mg Albuterol/Ipratropium (Duoneb 3 Mg/0.5 Mg (3 Ml) Ud) 3 ml INH RQ6 [facility] Last Admin: 04/10/18 13:08 Dose: 3 ml Amiodarone HCl (Cordarone) 200 mg PO DAILY [facility] Last Admin: 04/10/18 10:25 Dose: 200 mg Apixaban (Eliquis) 5 mg PO BID [facility] Last Admin: 04/10/18 10:22 Dose: 5 mg Ascorbic Acid (Vitamin C 500 Mg Tab) 500 mg PO BID [facility] Last Admin: 04/10/18 10:22 Dose: 500 mg Bacitracin (Bacitracin) 0 gm TOP BID [facility] Last Admin: 04/10/18 10:31 Dose: 1 applic Diltiazem HCl (Cardizem) 30 mg PO Q8 [facility] Last Admin: 04/10/18 13:43 Dose: 30 mg Fluconazole (Diflucan Iv 100 Mg/50 Ml Ns) 50 mls @ 100 mls/hr IVPB DAILY [facility]; Protocol Last Admin: 04/10/18 10:29 Dose: 100 mls/hr Cefepime HCl (Maxipime Iv 1 Gm Premix) 1 gm in 50 mls @ 100 mls/hr IVPB Q12H [facility]; Protocol Last Admin: 04/10/18 03:30 Dose: 100 mls/hr Insulin Human Regular (Novolin R) 0 unit SC Q4 [facility]; Protocol Last Admin: 04/10/18 12:00 Dose: Not Given Lactulose (Enulose) 20 gm PO HS PRN PRN Reason: Constipation Last Admin: 04/02/18 17:20 Dose: 20 gm Methylprednisolone (Solu-Medrol) 20 mg IVP BID [facility] Last Admin: 04/10/18 10:21 Dose: 20 mg Multivitamins/Vitamin C (Multi-Delyn Liquid) 5 ml PO DAILY [facility] Last Admin: 04/10/18 10:23 Dose: 5 ml Nystatin (Nystop Topical Powder) 1 applic TOP BID [facility] Last Admin: 04/10/18 10:31 Dose: 1 applic Pantoprazole Sodium (Protonix Susp) 40 mg PO DAILY [facility] Last Admin: 04/10/18 10:22 Dose: 40 mg Silver Sulfadiazine (Silvadene 1% 20 Gm) 0 ea TOP BID [facility] Last Admin: 04/10/18 10:30 Dose: 1 applic Zinc Sulfate (Zinc Sulfate 220 Mg Cap) 220 mg PO DAILY [facility] Last Admin: 04/10/18 10:22 Dose: 220 mg - Labs Labs: 04/10/18 05:49 04/10/18 05:49 PT 15.5 SECONDS (9.7-12.2) H 04/07/18 10:47 INR 1.4 04/07/18 10:47 APTT 34 SECONDS (21-34) 03/31/18 06:13 - Head Exam Head Exam: ATRAUMATIC, NORMOCEPHALIC - ENT Exam ENT Exam: Mucous Membranes Moist - Respiratory Exam Respiratory Exam: Decreased Breath Sounds - Cardiovascular Exam Cardiovascular Exam: REGULAR RHYTHM Assessment and Plan (1) Acute respiratory failure Assessment & Plan: Continue Ventimask May need thoracentesis Continue present treatment Improve nutritional status Status: Acute (2) Atrial fibrillation and flutter Status: Acute (3) CHF (congestive heart failure) Status: Acute (4) Pleural effusion Status: Acute
[2018-04-11] MEDS: (Novolin R) Insulin Human Regular 100 units/ml vial SC SCH ×6 (00:09→21:49)
--- NOTE | 2018-04-11 00:57 | CON ---
this consult belongs to different patient i have deleted the consult MTDD
[2018-04-11] MEDS: Albuterol-Ipratrop 3 mg / 0.5 (3 ml) UD INH SCH ×4 (01:07→20:17)
[2018-04-11] MEDS: Cefepime IV 1 gm in Dextrose 1 GM/50 ML BAG IVPB SCH ×2 (04:05→17:28)
[2018-04-11 06:19] LABS: BASO % 0.1 % (0.0-2.0); HEMOGLOBIN 10.6 g/dL (11.0-16.0); LYMPH # 0.2 K/uL (1.0-4.3); LYMPH % 1.8 % (20.0-40.0); MEAN CELL VOLUME 85.3 fL (81.0-99.0); MEAN CORPUSCULAR HEMOGLOBIN 26.5 pg (27.0-31.0); MEAN CORPUSCULAR HGB CONC 31.1 g/dL (33.0-37.0); NEUT # 7.7 K/uL (1.8-7.0); NEUT % 87.1 % (50.0-75.0); NRBC % 0.1 % (0.0-2.0); PLATELET COUNT 186 K/uL (130-400); RBC 3.99 Mil/uL (3.80-5.20); RED CELL DISTRIBUTION WIDTH 25.9 % (11.5-14.5); WHITE BLOOD COUNT 8.8 K/uL (4.8-10.8)
[2018-04-11 06:35] LABS: ALBUMIN 2.3 g/dL (3.5-5.0); ALT/SGPT 27 U/L (9-52); AST/SGOT 10 U/L (14-36); BLOOD UREA NITROGEN 53 mg/dL (7-17); CALCIUM 8.1 mg/dl (8.6-10.4); GFR NON-AFRICAN AMERICAN > 60
[2018-04-11 09:02] LABS: ANISOCYTOSIS MARKED; BANDS 2 % (0-2); HYPOCHROMIC MODERATE; LYMPHOCYTE 2 % (20-40); MONOCYTE 11 % (0-10); NEUTROPHIL 85 % (50-75); PLATELET ESTIMATE NORMAL (NORMAL); POLYCHROMIC SLIGHT; TOTAL CELLS COUNTED 100
[2018-04-11 09:03] LABS: GIANT PLATELETS PRESENT; LARGE PLATELETS PRESENT; OVALOCYTES SLIGHT; POIKILOCYTOSIS SLIGHT; SCHISTOCYTES SLIGHT; TOXIC GRANULATION PRESENT
[2018-04-11] MEDS: Bacitracin Ointment 30 GM TUBE TOP SCH ×2 (09:23→17:27)
[2018-04-11] MEDS: Multiple Vitamins Oral Solution PO SCH (09:24)
[2018-04-11] MEDS: Fluconazole IV 100mg/50 ml NS 50 ML IVPB SCH (09:24)
[2018-04-11] MEDS: Silver Sulfadiazine 1% Cream (20 gm) TOP SCH ×2 (09:25→17:29)
[2018-04-11] MEDS: Pantoprazole 40 mg Susp UD PO SCH (09:25)
[2018-04-11] MEDS: MethylPREDNISolone 40 mg Vial IVP SCH (09:25)
--- NOTE | 2018-04-11 11:09 | CP.PCM.PN ---
Subjective - Date & Time of Evaluation Date of Evaluation: 04/11/18 Time of Evaluation: 11:06 - Subjective Subjective: pt seen and examined in icu breathing beter on oxygen nasal canula still chest tube draining fluid Objective - Vital Signs/Intake and Output Vital Signs (last 24 hours): Temp Pulse Resp BP Pulse Ox 98.1 F 88 28 H 125/78 95 04/11/18 08:00 04/11/18 09:14 04/11/18 09:14 04/11/18 09:14 04/11/18 09:14 Intake and Output: 04/11/18 04/11/18 06:59 18:59 Intake Total 560 300 Output Total 201 0 Balance 359 300 - Medications Medications: Current Medications Acetaminophen (Tylenol 325mg Tab) 650 mg PO Q6 PRN PRN Reason: Fever >100.4 F Last Admin: 04/02/18 04:36 Dose: 650 mg Albuterol/Ipratropium (Duoneb 3 Mg/0.5 Mg (3 Ml) Ud) 3 ml INH RQ6 [facility] Last Admin: 04/11/18 08:11 Dose: 3 ml Amiodarone HCl (Cordarone) 200 mg PO DAILY [facility] Last Admin: 04/11/18 09:24 Dose: 200 mg Apixaban (Eliquis) 5 mg PO BID [facility] Last Admin: 04/11/18 09:24 Dose: 5 mg Ascorbic Acid (Vitamin C 500 Mg Tab) 500 mg PO BID [facility] Last Admin: 04/11/18 09:25 Dose: 500 mg Bacitracin (Bacitracin) 0 gm TOP BID [facility] Last Admin: 04/11/18 09:23 Dose: 1 applic Diltiazem HCl (Cardizem) 30 mg PO Q8 [facility] Last Admin: 04/11/18 06:12 Dose: 30 mg Fluconazole (Diflucan Iv 100 Mg/50 Ml Ns) 50 mls @ 100 mls/hr IVPB DAILY [facility]; Protocol Last Admin: 04/11/18 09:24 Dose: 100 mls/hr Cefepime HCl (Maxipime Iv 1 Gm Premix) 1 gm in 50 mls @ 100 mls/hr IVPB Q12H [facility]; Protocol Last Admin: 04/11/18 04:05 Dose: 100 mls/hr Insulin Glargine (Lantus) 5 unit SC HS [facility] Lactulose (Enulose) 20 gm PO HS PRN PRN Reason: Constipation Last Admin: 04/02/18 17:20 Dose: 20 gm Methylprednisolone (Solu-Medrol) 20 mg IVP BID [facility] Last Admin: 04/11/18 09:25 Dose: 20 mg Multivitamins/Vitamin C (Multi-Delyn Liquid) 5 ml PO DAILY [facility] Last Admin: 04/11/18 09:24 Dose: 5 ml Nystatin (Nystop Topical Powder) 1 applic TOP BID [facility] Last Admin: 04/11/18 09:24 Dose: 1 applic Pantoprazole Sodium (Protonix Susp) 40 mg PO DAILY [facility] Last Admin: 04/11/18 09:25 Dose: 40 mg Silver Sulfadiazine (Silvadene 1% 20 Gm) 0 ea TOP BID [facility] Last Admin: 04/11/18 09:25 Dose: 1 applic Zinc Sulfate (Zinc Sulfate 220 Mg Cap) 220 mg PO DAILY [facility] Last Admin: 04/11/18 09:25 Dose: 220 mg - Labs Labs: 04/11/18 06:10 04/11/18 06:10 PT 15.5 SECONDS (9.7-12.2) H 04/07/18 10:47 INR 1.4 04/07/18 10:47 APTT 34 SECONDS (21-34) 03/31/18 06:13 - Constitutional Appears: Non-toxic - Head Exam Head Exam: ATRAUMATIC - Eye Exam Eye Exam: Normal appearance Pupil Exam: NORMAL ACCOMODATION - ENT Exam ENT Exam: Mucous Membranes Moist - Neck Exam Neck Exam: Full ROM - Respiratory Exam Respiratory Exam: Decreased Breath Sounds - Cardiovascular Exam Cardiovascular Exam: REGULAR RHYTHM - GI/Abdominal Exam GI & Abdominal Exam: Normal Bowel Sounds - Rectal Exam Rectal Exam: NORMAL INSPECTION - Exam Additional comments: small superfiscial bullous draining r leg - Extremities Exam Extremities Exam: Pedal Edema - Back Exam Back Exam: NORMAL INSPECTION - Neurological Exam Neurological Exam: Awake, Oriented x3 - Psychiatric Exam Psychiatric exam: Normal Mood - Skin Skin Exam: Normal Color Assessment and Plan - Assessment and Plan (Free Text) Assessment: chf pleural efusion dm infected leasion r leg Plan: increase ins
--- NOTE | 2018-04-11 13:13 | CARD ---
APPROVED REPORT Date of service: 04/08/2018 EKG Measurement Heart [id number] <Conclusion> Atrial fibrillation Low voltage QRS ST & T wave abnormality, consider inferior ischemia ST & T wave abnormality, consider anterolateral ischemia Prolonged QT Abnormal ECG
--- NOTE | 2018-04-11 15:00 | CP.PCM.PN ---
Subjective - Date & Time of Evaluation Date of Evaluation: 04/11/18 Time of Evaluation: 14:51 - Subjective Subjective: No events patient is awake able to communicate not oriented best to the time, denies any complains. Objective - Vital Signs/Intake and Output Vital Signs (last 24 hours): Temp Pulse Resp BP Pulse Ox 97.4 F L 88 17 124/82 97 04/11/18 12:00 04/11/18 12:15 04/11/18 12:15 04/11/18 12:15 04/11/18 12:15 Intake and Output: 04/11/18 04/11/18 06:59 18:59 Intake Total 560 350 Output Total 201 0 Balance 359 350 - Medications Medications: Current Medications Acetaminophen (Tylenol 325mg Tab) 650 mg PO Q6 PRN PRN Reason: Fever >100.4 F Last Admin: 04/02/18 04:36 Dose: 650 mg Albuterol/Ipratropium (Duoneb 3 Mg/0.5 Mg (3 Ml) Ud) 3 ml INH RQ6 [facility] Last Admin: 04/11/18 13:46 Dose: 3 ml Amiodarone HCl (Cordarone) 200 mg PO DAILY [facility] Last Admin: 04/11/18 09:24 Dose: 200 mg Apixaban (Eliquis) 5 mg PO BID [facility] Last Admin: 04/11/18 09:24 Dose: 5 mg Ascorbic Acid (Vitamin C 500 Mg Tab) 500 mg PO BID [facility] Last Admin: 04/11/18 09:25 Dose: 500 mg Bacitracin (Bacitracin) 0 gm TOP BID [facility] Last Admin: 04/11/18 09:23 Dose: 1 applic Diltiazem HCl (Cardizem) 30 mg PO Q8 [facility] Last Admin: 04/11/18 14:44 Dose: 30 mg Fluconazole (Diflucan Iv 100 Mg/50 Ml Ns) 50 mls @ 100 mls/hr IVPB DAILY [facility]; Protocol Last Admin: 04/11/18 09:24 Dose: 100 mls/hr Cefepime HCl (Maxipime Iv 1 Gm Premix) 1 gm in 50 mls @ 100 mls/hr IVPB Q12H [facility]; Protocol Last Admin: 04/11/18 04:05 Dose: 100 mls/hr Insulin Glargine (Lantus) 5 unit SC HS [facility] Insulin Human Regular (Novolin R) 6 unit SC ACHS [facility] Last Admin: 04/11/18 12:23 Dose: 6 units Lactulose (Enulose) 20 gm PO HS PRN PRN Reason: Constipation Last Admin: 04/02/18 17:20 Dose: 20 gm Multivitamins/Vitamin C (Multi-Delyn Liquid) 5 ml PO DAILY [facility] Last Admin: 04/11/18 09:24 Dose: 5 ml Nystatin (Nystop Topical Powder) 1 applic TOP BID [facility] Last Admin: 04/11/18 09:24 Dose: 1 applic Pantoprazole Sodium (Protonix Susp) 40 mg PO DAILY [facility] Last Admin: 04/11/18 09:25 Dose: 40 mg Silver Sulfadiazine (Silvadene 1% 20 Gm) 0 ea TOP BID [facility] Last Admin: 04/11/18 09:25 Dose: 1 applic Zinc Sulfate (Zinc Sulfate 220 Mg Cap) 220 mg PO DAILY [facility] Last Admin: 04/11/18 09:25 Dose: 220 mg - Labs Labs: 04/11/18 06:10 04/11/18 06:10 PT 15.5 SECONDS (9.7-12.2) H 04/07/18 10:47 INR 1.4 04/07/18 10:47 APTT 34 SECONDS (21-34) 03/31/18 06:13 - Additional Findings Additional findings: * HEENT LYNN * Neck Supple * Chest reduced air entry on the right side * PA soft * Ext 4+ edema in lower ext 3+ in upper ext * Skin anasarca * [employer] moving all ext slight forget full. Assessment and Plan - Assessment and Plan (Free Text) Assessment: * Recurrent b/l pl effusion, due to right heart failure, s/p chest tube on the left side poor prognosis * Afib rate control on anticoagulation * Dementia * Chronic foot ulcers * Yeast in the tracheal secretions completing course of diflucan * Gi/DVT prophylaxis * Prognosis is poor due recurrent effusion, and right heart failure * See orders for detail.
--- NOTE | 2018-04-11 15:08 | CP.PCM.PN ---
Subjective - Date & Time of Evaluation Date of Evaluation: 04/11/18 Time of Evaluation: 15:03 - Subjective Subjective: Podiatry Progress Note: Dr. Shah 82 yo female seen and evaluated at bedside for right posterior leg superficial ulceration. Patient resting comfortably in bed and in NAD. She denies any acute pedal complaints at this time. She is accompanied by her daughter at bedside. Denies N/V/F/CP. Objective - Vital Signs/Intake and Output Vital Signs (last 24 hours): Temp Pulse Resp BP Pulse Ox 97.4 F L 88 17 124/82 97 04/11/18 12:00 04/11/18 12:15 04/11/18 12:15 04/11/18 12:15 04/11/18 12:15 Intake and Output: 04/11/18 04/11/18 06:59 18:59 Intake Total 560 650 Output Total 201 0 Balance 359 650 - Medications Medications: Current Medications Acetaminophen (Tylenol 325mg Tab) 650 mg PO Q6 PRN PRN Reason: Fever >100.4 F Last Admin: 04/02/18 04:36 Dose: 650 mg Albuterol/Ipratropium (Duoneb 3 Mg/0.5 Mg (3 Ml) Ud) 3 ml INH RQ6 [facility] Last Admin: 04/11/18 13:46 Dose: 3 ml Amiodarone HCl (Cordarone) 200 mg PO DAILY [facility] Last Admin: 04/11/18 09:24 Dose: 200 mg Apixaban (Eliquis) 5 mg PO BID [facility] Last Admin: 04/11/18 09:24 Dose: 5 mg Ascorbic Acid (Vitamin C 500 Mg Tab) 500 mg PO BID [facility] Last Admin: 04/11/18 09:25 Dose: 500 mg Bacitracin (Bacitracin) 0 gm TOP BID [facility] Last Admin: 04/11/18 09:23 Dose: 1 applic Diltiazem HCl (Cardizem) 30 mg PO Q8 [facility] Last Admin: 04/11/18 14:44 Dose: 30 mg Fluconazole (Diflucan Iv 100 Mg/50 Ml Ns) 50 mls @ 100 mls/hr IVPB DAILY [facility]; Protocol Last Admin: 04/11/18 09:24 Dose: 100 mls/hr Cefepime HCl (Maxipime Iv 1 Gm Premix) 1 gm in 50 mls @ 100 mls/hr IVPB Q12H [facility]; Protocol Last Admin: 04/11/18 04:05 Dose: 100 mls/hr Insulin Glargine (Lantus) 5 unit SC HS [facility] Insulin Human Regular (Novolin R) 6 unit SC ACHS [facility] Last Admin: 04/11/18 12:23 Dose: 6 units Lactulose (Enulose) 20 gm PO HS PRN PRN Reason: Constipation Last Admin: 04/02/18 17:20 Dose: 20 gm Multivitamins/Vitamin C (Multi-Delyn Liquid) 5 ml PO DAILY [facility] Last Admin: 04/11/18 09:24 Dose: 5 ml Nystatin (Nystop Topical Powder) 1 applic TOP BID [facility] Last Admin: 04/11/18 09:24 Dose: 1 applic Pantoprazole Sodium (Protonix Susp) 40 mg PO DAILY [facility] Last Admin: 04/11/18 09:25 Dose: 40 mg Silver Sulfadiazine (Silvadene 1% 20 Gm) 0 ea TOP BID [facility] Last Admin: 04/11/18 09:25 Dose: 1 applic Zinc Sulfate (Zinc Sulfate 220 Mg Cap) 220 mg PO DAILY [facility] Last Admin: 04/11/18 09:25 Dose: 220 mg - Labs Labs: 04/11/18 06:10 04/11/18 06:10 PT 15.5 SECONDS (9.7-12.2) H 04/07/18 10:47 INR 1.4 04/07/18 10:47 APTT 34 SECONDS (21-34) 03/31/18 06:13 - Constitutional Appears: Well, Non-toxic, No Acute Distress - Head Exam Head Exam: ATRAUMATIC, NORMOCEPHALIC - Extremities Exam Additional comments: Lower extremity focused exam: Vasc: Pulses faintly palpable, secondary to edema, Temp gradient cool to cool from proximal to distal. CFT <3 secs x 10, +1 edema appreciated from tibial tuberosity to dorsal aspect of feet bilaterally. Ortho: No tenderness to palpation noted to lower extremity B/L DERM: Dry, flaky, hyperkeratotic skin noted to bilateral LE distal to tibial tuberosity. Mild superficial ulceration appreciated to the posterior aspect of the R leg, serous drainage appreciated. No purulence, no cellulities, no tunneling, no tracking, no clinical signs of infection at this time. Neuro: Gross and protective sensation intact B/L - Neurological Exam Neurological Exam: Alert, Awake - Psychiatric Exam Psychiatric exam: Normal Affect, Normal Mood Assessment and Plan - Assessment and Plan (Free Text) Assessment: 82 yo female seen and evaluated at bedside for right posterior leg superficial ulceration Plan: Patient seen and evaluated Discussed patient in detail with Dr. Shah No leukocytosis, afebrile Wound cleansed, dressed with DSD, LEIDY Continue multipodus boots at all times in bed Will continue to follow while in house
--- NOTE | 2018-04-11 16:13 | CP.PCM.PN ---
Subjective - Date & Time of Evaluation Date of Evaluation: 04/11/18 Time of Evaluation: 15:00 - Subjective Subjective: Patient seen and examined On nasal cannula saturating well Afebrile Right pigtail catheter in place Anasarca Continue Ensure and pro-stat Increasing effusion on right side Hold Eliquis from tomorrow for thoracentesis on Thursday Objective - Vital Signs/Intake and Output Vital Signs (last 24 hours): Temp Pulse Resp BP Pulse Ox 97.4 F L 88 18 118/82 97 04/11/18 12:00 04/11/18 15:15 04/11/18 15:15 04/11/18 15:15 04/11/18 15:15 Intake and Output: 04/11/18 04/11/18 06:59 18:59 Intake Total 560 650 Output Total 201 0 Balance 359 650 - Medications Medications: Current Medications Acetaminophen (Tylenol 325mg Tab) 650 mg PO Q6 PRN PRN Reason: Fever >100.4 F Last Admin: 04/02/18 04:36 Dose: 650 mg Albuterol/Ipratropium (Duoneb 3 Mg/0.5 Mg (3 Ml) Ud) 3 ml INH RQ6 [facility] Last Admin: 04/11/18 13:46 Dose: 3 ml Amiodarone HCl (Cordarone) 200 mg PO DAILY [facility] Last Admin: 04/11/18 09:24 Dose: 200 mg Apixaban (Eliquis) 5 mg PO BID [facility] Last Admin: 04/11/18 09:24 Dose: 5 mg Ascorbic Acid (Vitamin C 500 Mg Tab) 500 mg PO BID [facility] Last Admin: 04/11/18 09:25 Dose: 500 mg Bacitracin (Bacitracin) 0 gm TOP BID [facility] Last Admin: 04/11/18 09:23 Dose: 1 applic Diltiazem HCl (Cardizem) 30 mg PO Q8 [facility] Last Admin: 04/11/18 14:44 Dose: 30 mg Fluconazole (Diflucan Iv 100 Mg/50 Ml Ns) 50 mls @ 100 mls/hr IVPB DAILY [facility]; Protocol Last Admin: 04/11/18 09:24 Dose: 100 mls/hr Cefepime HCl (Maxipime Iv 1 Gm Premix) 1 gm in 50 mls @ 100 mls/hr IVPB Q12H [facility]; Protocol Last Admin: 04/11/18 04:05 Dose: 100 mls/hr Insulin Glargine (Lantus) 5 unit SC HS [facility] Insulin Human Regular (Novolin R) 6 unit SC ACHS [facility] Last Admin: 04/11/18 12:23 Dose: 6 units Lactulose (Enulose) 20 gm PO HS PRN PRN Reason: Constipation Last Admin: 04/02/18 17:20 Dose: 20 gm Multivitamins/Vitamin C (Multi-Delyn Liquid) 5 ml PO DAILY [facility] Last Admin: 04/11/18 09:24 Dose: 5 ml Nystatin (Nystop Topical Powder) 1 applic TOP BID [facility] Last Admin: 04/11/18 09:24 Dose: 1 applic Pantoprazole Sodium (Protonix Susp) 40 mg PO DAILY [facility] Last Admin: 04/11/18 09:25 Dose: 40 mg Silver Sulfadiazine (Silvadene 1% 20 Gm) 0 ea TOP BID [facility] Last Admin: 04/11/18 09:25 Dose: 1 applic Zinc Sulfate (Zinc Sulfate 220 Mg Cap) 220 mg PO DAILY [facility] Last Admin: 04/11/18 09:25 Dose: 220 mg - Labs Labs: 04/11/18 06:10 04/11/18 06:10 PT 15.5 SECONDS (9.7-12.2) H 04/07/18 10:47 INR 1.4 04/07/18 10:47 APTT 34 SECONDS (21-34) 03/31/18 06:13 Assessment and Plan (1) Acute respiratory failure Status: Acute (2) Atrial fibrillation and flutter Status: Acute (3) CHF (congestive heart failure) Status: Acute (4) Pleural effusion Status: Acute
[2018-04-11] MEDS: (Lantus) Insulin Glargine, Recombinant SC SCH (21:48)
[2018-04-12] MEDS: Albuterol-Ipratrop 3 mg / 0.5 (3 ml) UD INH SCH ×4 (02:18→20:24)
[2018-04-12] MEDS: Cefepime IV 1 gm in Dextrose 1 GM/50 ML BAG IVPB SCH ×2 (03:33→16:49)
[2018-04-12 05:59] LABS: BASO % 0.1 % (0.0-2.0); HEMOGLOBIN 11.2 g/dL (11.0-16.0); LYMPH # 0.4 K/uL (1.0-4.3); LYMPH % 4.1 % (20.0-40.0); MEAN CELL VOLUME 85.1 fL (81.0-99.0); MEAN CORPUSCULAR HEMOGLOBIN 26.5 pg (27.0-31.0); MEAN CORPUSCULAR HGB CONC 31.1 g/dL (33.0-37.0); MEAN PLATELET VOLUME 9.6 fL (7.2-11.7); MONO # 1.4 K/uL (0.0-0.8); MONO % 14.5 % (0.0-10.0); NEUT # 7.6 K/uL (1.8-7.0); NEUT % 81.3 % (50.0-75.0); NRBC % 0.1 % (0.0-2.0); PLATELET COUNT 182 K/uL (130-400); RBC 4.21 Mil/uL (3.80-5.20); RED CELL DISTRIBUTION WIDTH 26.4 % (11.5-14.5); WHITE BLOOD COUNT 9.4 K/uL (4.8-10.8)
[2018-04-12 06:20] LABS: ALB/GLOB RATIO 1.2 (1.0-2.1); ALBUMIN 2.4 g/dL (3.5-5.0); ALT/SGPT 20 U/L (9-52); AST/SGOT 7 U/L (14-36); BLOOD UREA NITROGEN 48 mg/dL (7-17); CALCIUM 8.2 mg/dl (8.6-10.4); GFR NON-AFRICAN AMERICAN > 60
--- NOTE | 2018-04-12 08:05 | RAD ---
Chest x-ray single frontal view HISTORY: Follow-up. COMPARISON: 04/10/2018 FINDINGS: Moderate to large right pleural effusion with confluent consolidative changes in the right mid to lower lung zone. Left pleural drain with small left pleural effusion. Atherosclerotic calcification at the aortic knob. Enlarged ectatic aorta. Cardiomegaly. Right sided catheter noted in the right axilla. Degenerative changes in the spine and shoulders. Right paratracheal prominence may represent prominent vasculature. IMPRESSION: Moderate to large right pleural effusion with confluent consolidative changes in the right mid to lower lung zone. Left pleural drain with small left pleural effusion. Atherosclerotic calcification at the aortic knob. Enlarged ectatic aorta. Cardiomegaly. Right sided catheter noted in the right axilla. Degenerative changes in the spine and shoulders. Right paratracheal prominence may represent prominent vasculature.
[2018-04-12 08:27] LABS: ANISOCYTOSIS SLIGHT; LYMPHOCYTE 3 % (20-40); MONOCYTE 9 % (0-10); NEUTROPHIL 88 % (50-75); PLATELET ESTIMATE NORMAL (NORMAL); TOTAL CELLS COUNTED 100
[2018-04-12 08:28] LABS: HYPOCHROMIC SLIGHT; POLYCHROMIC SLIGHT
[2018-04-12] MEDS: (Novolin R) Insulin Human Regular 100 units/ml vial SC SCH ×4 (08:49→22:46)
[2018-04-12] MEDS ORDERED: Aluminum Hydroxide/Magnesium Hydroxide Susp (30 mL) PO ONE (09:16)
[2018-04-12] MEDS: Bacitracin Ointment 30 GM TUBE TOP SCH ×2 (10:43→17:02)
[2018-04-12] MEDS: Fluconazole IV 100mg/50 ml NS 50 ML IVPB SCH (10:44)
[2018-04-12] MEDS: Multiple Vitamins Oral Solution PO SCH (10:47)
--- NOTE | 2018-04-12 10:47 | CP.CCUPN ---
<Margi Valenzuela - Last Filed: 04/12/18 10:34> CCU Subjective - Physician Review Subjective (Free Text): PGY-1 Critical Care Progress Note for Dr. Carbone's service Patient seen and examined at bedside. Patient admits to severe abdominal pain starting today located in the epigastric region. Palpable umbilical hernia was noted. Patient denies fevers, chills, chest pain, sob, n/v, dysuria, and dizziness. CCU Objective - Vital Signs / Intake & Output Vital Signs (Last 4 hours): Vital Signs Temp Pulse Resp BP Pulse Ox 04/12/18 09:15 72 38 H 126/97 H 94 L 04/12/18 08:17 80 32 H 124/61 89 L 04/12/18 08:00 97.4 F L 04/12/18 07:15 85 26 H 111/80 95 Intake and Output (Last 8hrs): Intake & Output 04/11/18 04/12/18 04/12/18 22:59 06:59 14:59 Intake Total 600 580 100 Output Total 430 1130 Balance 170 -550 100 Weight 227 lb 14.4 oz Intake: Intake, IV Amount 50 100 Right arm mid line 50 100 Oral 550 480 100 Output: Chest Tube Drainage 230 130 Left Posterior Chest 230 130 Urine 200 1000 Urine, Voided 200 1000 Other: # Voids Urine, Voided 1 # Bowel Movements 0 - Physical Exam Head: Positive for: Atraumatic, Normocephalic, Other (central line in left IJ) Pupils: Positive for: PERRL Extroacular Muscles: Positive for: EOMI Conjunctiva: Positive for: Normal Mouth: Positive for: Dry, Other (on venti mask) Neck: Positive for: Normal Range of Motion. Negative for: JVD, Lymphadenopathy Respiratory/Chest: Positive for: Decreased Breath Sounds. Negative for: Respiratory Distress, Accessory Muscle Use, Wheezes, Tachypneic Cardiovascular: Positive for: Regular Rate and Rhythm, Normal S1, S2. Negative for: Murmurs, Irregular Rhythm Abdomen: Positive for: Tenderness, Normal Bowel Sounds, Other (umbilical hernia). Negative for: Distention, Peritoneal Signs, Rebound, Guarding Genitourinary/Pelvic Exam: Positive for: Other (D[place] in place for strict Is/Os) Upper Extremity: Positive for: Normal Inspection, Edema. Negative for: Cyanosis Lower Extremity: Positive for: Normal Inspection, Edema Neurological: Positive for: GCS=15 Skin: Positive for: Dry, Normal Color, Other (chest tube in posterior left back, right foot ulcer, and sacral unstageable ulcer). Negative for: Diaphoretic Psychiatric: Positive for: Alert, Oriented x 3 - Medications Active Medications: Active Medications Generic Name Dose Route Start Last Admin Trade Name Freq PRN Reason Stop Dose Admin Acetaminophen 650 mg 03/23/18 15:59 04/02/18 04:36 Tylenol 325mg Tab PO 650 mg Q6 PRN Administration Fever >100.4 F Albuterol/Ipratropium 3 ml 04/02/18 14:00 04/12/18 07:30 Duoneb 3 Mg/0.5 Mg (3 Ml) Ud INH 3 ml RQ6 KEV Administration Amiodarone HCl 200 mg 03/23/18 16:45 04/11/18 09:24 Cordarone PO 200 mg DAILY KEV Administration Apixaban 5 mg 03/23/18 18:00 04/11/18 17:28 Eliquis PO 5 mg BID KEV Administration Ascorbic Acid 500 mg 04/02/18 10:00 04/11/18 17:29 Vitamin C 500 Mg Tab PO 500 mg BID KEV Administration Bacitracin 0 gm 04/01/18 18:00 04/11/18 17:27 Bacitracin TOP 1 applic BID KEV Administration Diltiazem HCl 30 mg 04/10/18 14:00 04/12/18 05:13 Cardizem PO 30 mg Q8 KEV Administration Fluconazole 50 mls @ 100 mls/hr 03/27/18 10:00 04/11/18 09:24 Diflucan Iv 100 Mg/50 Ml Ns IVPB 100 mls/hr DAILY KEV Administration Protocol Cefepime HCl 1 gm in 50 mls @ 100 mls/hr 04/01/18 16:30 04/12/18 03:33 Maxipime Iv 1 Gm Premix IVPB 100 mls/hr Q12H KEV Administration Protocol Insulin Glargine 5 unit 04/11/18 22:00 04/11/18 21:48 Lantus SC 5 units HS KEV Administration Insulin Human Regular 6 unit 04/11/18 11:30 04/12/18 08:49 Novolin R SC 6 units ACHS KEV Administration Lactulose 20 gm 03/30/18 19:13 01/07/19 10:21 Enulose PO 20 gm HS PRN Administration Constipation Multivitamins/Vitamin C 5 ml 04/02/18 10:00 04/11/18 09:24 Multi-Delyn Liquid PO 5 ml DAILY KEV Administration Nystatin 1 applic 03/23/18 18:00 04/11/18 17:29 Nystop Topical Powder TOP 1 applic BID KEV Administration Pantoprazole Sodium 40 mg 03/27/18 10:00 04/11/18 09:25 Protonix Susp PO 40 mg DAILY KEV Administration Silver Sulfadiazine 0 ea 03/26/18 10:00 04/11/18 17:29 Silvadene 1% 20 Gm TOP 1 applic BID KEV Administration Zinc Sulfate 220 mg 04/02/18 10:00 04/11/18 09:25 Zinc Sulfate 220 Mg Cap PO 220 mg DAILY KEV Administration - Patient Studies Lab Studies: Lab Studies 04/12/18 04/12/18 04/11/18 Range/Units 05:52 05:52 20:35 WBC 9.4 (4.8-10.8) K/uL RBC 4.21 (3.80-5.20) Mil/uL Hgb 11.2 (11.0-16.0) g/dL Hct 35.8 (34.0-47.0) % MCV 85.1 (81.0-99.0) fL MCH 26.5 L (27.0-31.0) pg MCHC 31.1 L (33.0-37.0) g/dL RDW 26.4 H (11.5-14.5) % Plt Count 182 (130-400) K/uL MPV 9.6 (7.2-11.7) fL Neut % (Auto) 81.3 H (50.0-75.0) % Lymph % (Auto) 4.1 L (20.0-40.0) % [place] % (Auto) 14.5 H (0.0-10.0) % Eos % (Auto) 0.0 (0.0-4.0) % Baso % (Auto) 0.1 (0.0-2.0) % Neut # (Auto) 7.6 H (1.8-7.0) K/uL Lymph # (Auto) 0.4 L (1.0-4.3) K/uL [place] # (Auto) 1.4 H (0.0-0.8) K/uL Eos # (Auto) 0.0 (0.0-0.7) K/uL Baso # (Auto) 0.0 (0.0-0.2) K/uL Neutrophils % (Manual) 88 H (50-75) % Lymphocytes % (Manual) 3 L (20-40) % Monocytes % (Manual) 9 (0-10) % Platelet Estimate Normal (NORMAL) Polychromasia Slight Hypochromasia (manual) Slight Anisocytosis (manual) Slight Sodium 135 (132-148) mmol/L Potassium 4.0 (3.6-5.2) mmol/L Chloride 96 L (98-107) mmol/L Carbon Dioxide 35 H (22-30) mmol/L Anion Gap 8 L (10-20) BUN 48 H (7-17) mg/dL Creatinine 0.7 (0.7-1.2) mg/dL Est GFR ( Amer) > 60 Est GFR (Non-Af Amer) > 60 POC Glucose (mg/dL) 294 H (65-110) mg/dL Random Glucose 153 H D (65-105) mg/dL Calcium 8.2 L (8.6-10.4) mg/dl Phosphorus 3.0 (2.5-4.5) mg/dL Magnesium 2.2 (1.6-2.3) mg/dL Total Bilirubin 0.9 (0.2-1.3) mg/dL AST 7 L D (14-36) U/L ALT 20 (9-52) U/L Alkaline Phosphatase 46 (38-126) U/L Total Protein 4.4 L (6.3-8.3) g/dL Albumin 2.4 L (3.5-5.0) g/dL Globulin 2.1 L (2.2-3.9) gm/dL Albumin/Globulin Ratio 1.2 (1.0-2.1) 04/11/18 04/11/18 04/11/18 Range/Units 15:58 11:03 08:26 WBC (4.8-10.8) K/uL RBC (3.80-5.20) Mil/uL Hgb (11.0-16.0) g/dL Hct (34.0-47.0) % MCV (81.0-99.0) fL MCH (27.0-31.0) pg MCHC (33.0-37.0) g/dL RDW (11.5-14.5) % Plt Count (130-400) K/uL MPV (7.2-11.7) fL Neut % (Auto) (50.0-75.0) % Lymph % (Auto) (20.0-40.0) % [place] % (Auto) (0.0-10.0) % Eos % (Auto) (0.0-4.0) % Baso % (Auto) (0.0-2.0) % Neut # (Auto) (1.8-7.0) K/uL Lymph # (Auto) (1.0-4.3) K/uL [place] # (Auto) (0.0-0.8) K/uL Eos # (Auto) (0.0-0.7) K/uL Baso # (Auto) (0.0-0.2) K/uL Neutrophils % (Manual) (50-75) % Lymphocytes % (Manual) (20-40) % Monocytes % (Manual) (0-10) % Platelet Estimate (NORMAL) Polychromasia Hypochromasia (manual) Anisocytosis (manual) Sodium (132-148) mmol/L Potassium (3.6-5.2) mmol/L Chloride (98-107) mmol/L Carbon Dioxide (22-30) mmol/L Anion Gap (10-20) BUN (7-17) mg/dL Creatinine (0.7-1.2) mg/dL Est GFR ( Amer) Est GFR (Non-Af Amer) POC Glucose (mg/dL) 298 H 245 H 241 H (65-110) mg/dL Random Glucose (65-105) mg/dL Calcium (8.6-10.4) mg/dl Phosphorus (2.5-4.5) mg/dL Magnesium (1.6-2.3) mg/dL Total Bilirubin (0.2-1.3) mg/dL AST (14-36) U/L ALT (9-52) U/L Alkaline Phosphatase (38-126) U/L Total Protein (6.3-8.3) g/dL Albumin (3.5-5.0) g/dL Globulin (2.2-3.9) gm/dL Albumin/Globulin Ratio (1.0-2.1) Laboratory Results - last 24 hr 04/11/18 04/11/18 04/11/18 08:26 11:03 15:58 WBC RBC Hgb Hct MCV MCH MCHC RDW Plt Count MPV Neut % (Auto) Lymph % (Auto) [place] % (Auto) Eos % (Auto) Baso % (Auto) Neut # (Auto) Lymph # (Auto) [place] # (Auto) Eos # (Auto) Baso # (Auto) Neutrophils % (Manual) Lymphocytes % (Manual) Monocytes % (Manual) Platelet Estimate Polychromasia Hypochromasia (manual) Anisocytosis (manual) Sodium Potassium Chloride Carbon Dioxide Anion Gap BUN Creatinine Est GFR ( Amer) Est GFR (Non-Af Amer) POC Glucose (mg/dL) 241 H 245 H 298 H Random Glucose Calcium Phosphorus Magnesium Total Bilirubin AST ALT Alkaline Phosphatase Total Protein Albumin Globulin Albumin/Globulin Ratio 04/11/18 04/12/18 04/12/18 20:35 05:52 05:52 WBC 9.4 RBC 4.21 Hgb 11.2 Hct 35.8 MCV 85.1 MCH 26.5 L MCHC 31.1 L RDW 26.4 H Plt Count 182 MPV 9.6 Neut % (Auto) 81.3 H Lymph % (Auto) 4.1 L [place] % (Auto) 14.5 H Eos % (Auto) 0.0 Baso % (Auto) 0.1 Neut # (Auto) 7.6 H Lymph # (Auto) 0.4 L [place] # (Auto) 1.4 H Eos # (Auto) 0.0 Baso # (Auto) 0.0 Neutrophils % (Manual) 88 H Lymphocytes % (Manual) 3 L Monocytes % (Manual) 9 Platelet Estimate Normal Polychromasia Slight Hypochromasia (manual) Slight Anisocytosis (manual) Slight Sodium 135 Potassium 4.0 Chloride 96 L Carbon Dioxide 35 H Anion Gap 8 L BUN 48 H Creatinine 0.7 Est GFR ( Amer) > 60 Est GFR (Non-Af Amer) > 60 POC Glucose (mg/dL) 294 H Random Glucose 153 H D Calcium 8.2 L Phosphorus 3.0 Magnesium 2.2 Total Bilirubin 0.9 AST 7 L D ALT 20 Alkaline Phosphatase 46 Total Protein 4.4 L Albumin 2.4 L Globulin 2.1 L Albumin/Globulin Ratio 1.2 Radiology Impressions: Radiology Impressions Chest X-Ray 04/12/18 06:00 IMPRESSION: Moderate to large right pleural effusion with confluent consolidative changes in the right mid to lower lung zone. Left pleural drain with small left pleural effusion. Atherosclerotic calcification at the aortic knob. Enlarged ectatic aorta. Cardiomegaly. Right sided catheter noted in the right axilla. Degenerative changes in the spine and shoulders. Right paratracheal prominence may represent prominent vasculature. Fingerstick Blood Sugar Results: 155 Review of Systems - Review of Systems Review of Systems: 12 point ROS obtained and noted as in HPI Critical Care Progress Note - Extremities/Vascular Does the Patient have a Central Venous Catheter?: No Does the Patient need a Central Venous Catheter?: No Does the Patient have a [place] Catheter?: No Does the Patient need a [place] Catheter?: No - Prophylaxis GI Prophylaxis GI: PPI - Nutrition Nutrition: Nutrition Category Date Time Status Pureed [Dysphagia/Modified Consistency Diet] [DIET] Diets 04/02/18 Breakfast Active Assessment/Plan - Assessment and Plan (Free Text) Assessment: Patient is a 82 yo female w/ PMH of CHF, HTN, Afib on AC admitted for bilateral pleural effusions and pneumonia. Was breathing on bipap in ED however after transfer to ICU, patient decompensated only responding to painful stimuli. GCS of 6. Patient was intubated. Patient became hypotensive so central line was placed for levophed drip. s/p thoracentesis with 1100 fluid removed. Home AC restarted. Precedex and levophed dc'ed. Patient extubated and doing well. s/p chest tube insertion on 04/07/18 with 1600 ml drained day 1. Repeat Cxray shows bilateral pleural effusions. May need chest tube for prolonged amount of days for recurrent effusion Neuro Awake, Alerted, Oriented No acute issues Pulm Duoneb Cefepime/Fluconazole (start dates 04/01 and 03/27 respectively); Will discuss with ID for possible dc of abx in setting of negative cx, afebrile, and no wbc s/p thoracentesis 1100ml fluid drained- right s/p chest tube insertion on 04/07/18 with 1600 drained first day then clamped; further management as per pumonology for when to remove Continue aggressive pulm toilet Pending possible thoracentesis vs chest tube placement on right side on 04-13-18 CV Amiodarone Cardizem Eliquis-held for thoracentesis or chest tube in AM GI abdominal pain today- 1 x toradol, CT abdomen pelvis pending; etiology: umbilical hernia vs constipation Protonix; Lactulose Prealbumin normal; consider albumin iv in am pending morning labs As per dietary ensure will be three times a day Heme Elqiuis-held no acute issues Endo ACHS; Glargine; Insulin regular Renal Zinc/Multivitamins/Ascorbic acid Derm Podiatry following for foot ulcer on right- Nystatin, multipodus boots Wound care for unstagable sacral ulcer and buttock ulcer- recommendations are continued as per wound care- bacitracin/medihoney Continue to monitor ID Cefepime/Fluconazole (completed 7 day course of azithromycin) + trach asp for yeast species; + urine cx for yeast species new figueredo cx negative GI ppx: Protonix DVT ppx: Elquis 5mg po bid- held Disposition: Continue aggressive pulm toilet; chest tube management as per pulm; possible right thoracentesis or chest tube in AM; ulcer managment as per wound care and podiatry; continue PT/OT Margi Valenzuela PGY-1 Case d/w Dr. Carbone <Ahsan Carbone - Last Filed: 04/12/18 20:39> CCU Subjective - Physician Review Events Since Last Encounter (Free Text): 04/12/18 20:38 Patient this afternoon developed abdominal pain. Immediately CAT scan of the abdomen was done. Showing evidence of suspected air under diaphragm, and perforation. Surgical evaluation was called in. Meanwhile patient blood pressure started going down. Immediately triple-lumen catheter was inserted. Levophed started. Patient's daughter at bedside. Explained to the patient daughter in detail. I made rounds during the morning time with the resident. I agree with resident note. Patient's overall prognosis very poor After I also spoke to the surgeon. Surgeon is concerned about the overall prognosis. Patient is at high risk for any surgical intervention. We have the patient is stable, possible surgical intervention tomorrow. Meanwhile. Oticair. Patient daughter at bedside explained CCU Objective - Vital Signs / Intake & Output Vital Signs (Last 4 hours): Vital Signs Pulse Resp BP Pulse Ox 04/12/18 20:00 102 H 19 93/68 L 100 04/12/18 19:48 104 H 25 H 84/67 L 97 04/12/18 19:16 87/58 L 04/12/18 18:38 118 H 44 H 87/58 L 91 L 04/12/18 17:54 126 H 24 99/66 L 91 L 04/12/18 17:50 126 H 26 H 111/54 L 04/12/18 17:44 125 H 22 97/69 L 94 L 04/12/18 17:39 121 H 21 93/75 L 04/12/18 17:34 119 H 21 106/71 04/12/18 17:30 116 H 23 118/62 92 L 04/12/18 17:24 109 H 20 93/72 L 94 L 04/12/18 17:20 111 H 22 90/78 L 87 L 04/12/18 17:14 108 H 21 89/68 L 89 L 04/12/18 17:09 106 H 25 H 106/64 04/12/18 17:07 107 H 22 93/69 L 04/12/18 16:58 108 H 22 87/61 L 95 04/12/18 16:46 106 H 22 94/68 L 92 L Intake and Output (Last 8hrs): Intake & Output 04/12/18 04/12/18 04/12/18 06:59 14:59 22:59 Intake Total 580 150 200 Output Total 1130 700 Balance -550 150 -500 Weight 227 lb 14.4 oz Intake: Intake, IV Amount 100 50 100 Right arm mid line 100 50 100 Oral 480 100 100 Output: Chest Tube Drainage 130 Left Posterior Chest 130 Urine 1000 700 Urine, Voided 1000 700 Other: # Voids Urine, Voided 1 # Bowel Movements 0 - Medications Active Medications: Active Medications Generic Name Dose Route Start Last Admin Trade Name Freq PRN Reason Stop Dose Admin Acetaminophen 650 mg 03/23/18 15:59 04/02/18 04:36 Tylenol 325mg Tab PO 650 mg Q6 PRN Administration Fever >100.4 F Albuterol/Ipratropium 3 ml 04/02/18 14:00 04/12/18 20:24 Duoneb 3 Mg/0.5 Mg (3 Ml) Ud INH 3 ml RQ6 KEV Administration Amiodarone HCl 200 mg 03/23/18 16:45 04/12/18 10:45 Cordarone PO Not Given DAILY KEV Apixaban 5 mg 03/23/18 18:00 04/11/18 17:28 Eliquis PO 5 mg BID KEV Administration Ascorbic Acid 500 mg 04/02/18 10:00 04/12/18 17:03 Vitamin C 500 Mg Tab PO Not Given BID KEV Bacitracin 0 gm 04/01/18 18:00 04/12/18 17:02 Bacitracin TOP 1 applic BID KEV Administration Diltiazem HCl 30 mg 04/10/18 14:00 04/12/18 14:26 Cardizem PO Not Given Q8 KEV Fluconazole 50 mls @ 100 mls/hr 03/27/18 10:00 04/12/18 10:44 Diflucan Iv 100 Mg/50 Ml Ns IVPB 100 mls/hr DAILY KEV Administration Protocol Cefepime HCl 1 gm in 50 mls @ 100 mls/hr 04/01/18 16:30 04/12/18 16:49 Maxipime Iv 1 Gm Premix IVPB 100 mls/hr Q12H KEV Administration Protocol Piperacillin Sod/Tazobactam Sod 3.375 gm in 50 mls @ 100 mls/hr 04/12/18 18:00 04/12/18 19:16 Zosyn 3.375 Gm Iv Premix IVPB 100 mls/hr Q6H KEV Administration Protocol Norepinephrine Bitartrate 4 mg 254 mls @ 15.24 mls/hr 04/12/18 18:52 04/12/18 19:16 / Dextrose IV 4 mcg/min .[id number] PRN 15.24 mls/hr TITRATE PER MD ORDER Administration Protocol 4 MCG/MIN Insulin Glargine 5 unit 04/11/18 22:00 04/11/18 21:48 Lantus SC 5 units HS KEV Administration Insulin Human Regular 6 unit 04/11/18 11:30 04/12/18 16:59 Novolin R SC Not Given ACHS KEV Lactulose 20 gm 03/30/18 19:13 04/12/18 10:21 Enulose PO 20 gm HS PRN Administration Constipation Multivitamins/Vitamin C 5 ml 04/02/18 10:00 04/12/18 10:47 Multi-Delyn Liquid PO 5 ml DAILY KEV Administration Nystatin 1 applic 03/23/18 18:00 04/12/18 17:01 Nystop Topical Powder TOP 1 applic BID KEV Administration Pantoprazole Sodium 40 mg 03/27/18 10:00 04/12/18 10:48 Protonix Susp PO 40 mg DAILY KEV Administration Silver Sulfadiazine 0 ea 03/26/18 10:00 04/12/18 17:01 Silvadene 1% 20 Gm TOP 1 applic BID KEV Administration Zinc Sulfate 220 mg 04/02/18 10:00 04/12/18 10:50 Zinc Sulfate 220 Mg Cap PO 220 mg DAILY KEV Administration - Patient Studies Lab Studies: Lab Studies 04/12/18 04/12/18 04/12/18 Range/Units 16:56 16:31 11:22 WBC (4.8-10.8) K/uL RBC (3.80-5.20) Mil/uL Hgb (11.0-16.0) g/dL Hct (34.0-47.0) % MCV (81.0-99.0) fL MCH (27.0-31.0) pg MCHC (33.0-37.0) g/dL RDW (11.5-14.5) % Plt Count (130-400) K/uL MPV (7.2-11.7) fL Neut % (Auto) (50.0-75.0) % Lymph % (Auto) (20.0-40.0) % [place] % (Auto) (0.0-10.0) % Eos % (Auto) (0.0-4.0) % Baso % (Auto) (0.0-2.0) % Neut # (Auto) (1.8-7.0) K/uL Lymph # (Auto) (1.0-4.3) K/uL [place] # (Auto) (0.0-0.8) K/uL Eos # (Auto) (0.0-0.7) K/uL Baso # (Auto) (0.0-0.2) K/uL Neutrophils % (Manual) (50-75) % Lymphocytes % (Manual) (20-40) % Monocytes % (Manual) (0-10) % Platelet Estimate (NORMAL) Polychromasia Hypochromasia (manual) Anisocytosis (manual) Puncture Site Rra pCO2 45 (35-45) mm/Hg pO2 81 (80-100) mm/Hg HCO3 31.1 H (21-28) mmol/L ABG pH 7.47 H (7.35-7.45) ABG Total CO2 34.2 H (22-28) mmol/L ABG O2 Saturation 97.5 (95-98) % ABG Base Excess 8.0 H (-2.0-3.0) mmol/L Pawel Test Na ABG Potassium 3.8 (3.6-5.2) mmol/L A-a O2 Difference 184.0 mm/Hg Respiratory Index 2.3 Glucose 71 (65-105) mg/dl Lactate 1.7 (0.7-2.1) mmol/L FiO2 45.0 % Sodium 137.0 (132-148) mmol/L Potassium (3.6-5.2) mmol/L Chloride 104.0 (98-107) mmol/L Carbon Dioxide (22-30) mmol/L Anion Gap (10-20) BUN (7-17) mg/dL Creatinine (0.7-1.2) mg/dL Est GFR ( Amer) Est GFR (Non-Af Amer) POC Glucose (mg/dL) 80 117 H (65-110) mg/dL Random Glucose (65-105) mg/dL Calcium (8.6-10.4) mg/dl Phosphorus (2.5-4.5) mg/dL Magnesium (1.6-2.3) mg/dL Total Bilirubin (0.2-1.3) mg/dL AST (14-36) U/L ALT (9-52) U/L Alkaline Phosphatase (38-126) U/L Total Protein (6.3-8.3) g/dL Albumin (3.5-5.0) g/dL Globulin (2.2-3.9) gm/dL Albumin/Globulin Ratio (1.0-2.1) Arterial Blood Potassium 3.8 (3.6-5.2) mmol/L 04/12/18 04/12/18 04/12/18 Range/Units 07:28 05:52 05:52 WBC 9.4 (4.8-10.8) K/uL RBC 4.21 (3.80-5.20) Mil/uL Hgb 11.2 (11.0-16.0) g/dL Hct 35.8 (34.0-47.0) % MCV 85.1 (81.0-99.0) fL MCH 26.5 L (27.0-31.0) pg MCHC 31.1 L (33.0-37.0) g/dL RDW 26.4 H (11.5-14.5) % Plt Count 182 (130-400) K/uL MPV 9.6 (7.2-11.7) fL Neut % (Auto) 81.3 H (50.0-75.0) % Lymph % (Auto) 4.1 L (20.0-40.0) % [place] % (Auto) 14.5 H (0.0-10.0) % Eos % (Auto) 0.0 (0.0-4.0) % Baso % (Auto) 0.1 (0.0-2.0) % Neut # (Auto) 7.6 H (1.8-7.0) K/uL Lymph # (Auto) 0.4 L (1.0-4.3) K/uL [place] # (Auto) 1.4 H (0.0-0.8) K/uL Eos # (Auto) 0.0 (0.0-0.7) K/uL Baso # (Auto) 0.0 (0.0-0.2) K/uL Neutrophils % (Manual) 88 H (50-75) % Lymphocytes % (Manual) 3 L (20-40) % Monocytes % (Manual) 9 (0-10) % Platelet Estimate Normal (NORMAL) Polychromasia Slight Hypochromasia (manual) Slight Anisocytosis (manual) Slight Puncture Site pCO2 (35-45) mm/Hg pO2 (80-100) mm/Hg HCO3 (21-28) mmol/L ABG pH (7.35-7.45) ABG Total CO2 (22-28) mmol/L ABG O2 Saturation (95-98) % ABG Base Excess (-2.0-3.0) mmol/L Pawel Test ABG Potassium (3.6-5.2) mmol/L A-a O2 Difference mm/Hg Respiratory Index Glucose (65-105) mg/dl Lactate (0.7-2.1) mmol/L FiO2 % Sodium 135 (132-148) mmol/L Potassium 4.0 (3.6-5.2) mmol/L Chloride 96 L (98-107) mmol/L Carbon Dioxide 35 H (22-30) mmol/L Anion Gap 8 L (10-20) BUN 48 H (7-17) mg/dL Creatinine 0.7 (0.7-1.2) mg/dL Est GFR ( Amer) > 60 Est GFR (Non-Af Amer) > 60 POC Glucose (mg/dL) 155 H (65-110) mg/dL Random Glucose 153 H D (65-105) mg/dL Calcium 8.2 L (8.6-10.4) mg/dl Phosphorus 3.0 (2.5-4.5) mg/dL Magnesium 2.2 (1.6-2.3) mg/dL Total Bilirubin 0.9 (0.2-1.3) mg/dL AST 7 L D (14-36) U/L ALT 20 (9-52) U/L Alkaline Phosphatase 46 (38-126) U/L Total Protein 4.4 L (6.3-8.3) g/dL Albumin 2.4 L (3.5-5.0) g/dL Globulin 2.1 L (2.2-3.9) gm/dL Albumin/Globulin Ratio 1.2 (1.0-2.1) Arterial Blood Potassium (3.6-5.2) mmol/L 04/11/18 Range/Units 20:35 WBC (4.8-10.8) K/uL RBC (3.80-5.20) Mil/uL Hgb (11.0-16.0) g/dL Hct (34.0-47.0) % MCV (81.0-99.0) fL MCH (27.0-31.0) pg MCHC (33.0-37.0) g/dL RDW (11.5-14.5) % Plt Count (130-400) K/uL MPV (7.2-11.7) fL Neut % (Auto) (50.0-75.0) % Lymph % (Auto) (20.0-40.0) % [place] % (Auto) (0.0-10.0) % Eos % (Auto) (0.0-4.0) % Baso % (Auto) (0.0-2.0) % Neut # (Auto) (1.8-7.0) K/uL Lymph # (Auto) (1.0-4.3) K/uL [place] # (Auto) (0.0-0.8) K/uL Eos # (Auto) (0.0-0.7) K/uL Baso # (Auto) (0.0-0.2) K/uL Neutrophils % (Manual) (50-75) % Lymphocytes % (Manual) (20-40) % Monocytes % (Manual) (0-10) % Platelet Estimate (NORMAL) Polychromasia Hypochromasia (manual) Anisocytosis (manual) Puncture Site pCO2 (35-45) mm/Hg pO2 (80-100) mm/Hg HCO3 (21-28) mmol/L ABG pH (7.35-7.45) ABG Total CO2 (22-28) mmol/L ABG O2 Saturation (95-98) % ABG Base Excess (-2.0-3.0) mmol/L Pawel Test ABG Potassium (3.6-5.2) mmol/L A-a O2 Difference mm/Hg Respiratory Index Glucose (65-105) mg/dl Lactate (0.7-2.1) mmol/L FiO2 % Sodium (132-148) mmol/L Potassium (3.6-5.2) mmol/L Chloride (98-107) mmol/L Carbon Dioxide (22-30) mmol/L Anion Gap (10-20) BUN (7-17) mg/dL Creatinine (0.7-1.2) mg/dL Est GFR ( Amer) Est GFR (Non-Af Amer) POC Glucose (mg/dL) 294 H (65-110) mg/dL Random Glucose (65-105) mg/dL Calcium (8.6-10.4) mg/dl Phosphorus (2.5-4.5) mg/dL Magnesium (1.6-2.3) mg/dL Total Bilirubin (0.2-1.3) mg/dL AST (14-36) U/L ALT (9-52) U/L Alkaline Phosphatase (38-126) U/L Total Protein (6.3-8.3) g/dL Albumin (3.5-5.0) g/dL Globulin (2.2-3.9) gm/dL Albumin/Globulin Ratio (1.0-2.1) Arterial Blood Potassium (3.6-5.2) mmol/L Laboratory Results - last 24 hr 04/11/18 04/12/18 04/12/18 20:35 05:52 05:52 WBC 9.4 RBC 4.21 Hgb 11.2 Hct 35.8 MCV 85.1 MCH 26.5 L MCHC 31.1 L RDW 26.4 H Plt Count 182 MPV 9.6 Neut % (Auto) 81.3 H Lymph % (Auto) 4.1 L [place] % (Auto) 14.5 H Eos % (Auto) 0.0 Baso % (Auto) 0.1 Neut # (Auto) 7.6 H Lymph # (Auto) 0.4 L [place] # (Auto) 1.4 H Eos # (Auto) 0.0 Baso # (Auto) 0.0 Neutrophils % (Manual) 88 H Lymphocytes % (Manual) 3 L Monocytes % (Manual) 9 Platelet Estimate Normal Polychromasia Slight Hypochromasia (manual) Slight Anisocytosis (manual) Slight Puncture Site pCO2 pO2 HCO3 ABG pH ABG Total CO2 ABG O2 Saturation ABG Base Excess Pawel Test ABG Potassium A-a O2 Difference Respiratory Index Glucose Lactate FiO2 Sodium 135 Potassium 4.0 Chloride 96 L Carbon Dioxide 35 H Anion Gap 8 L BUN 48 H Creatinine 0.7 Est GFR ( Amer) > 60 Est GFR (Non-Af Amer) > 60 POC Glucose (mg/dL) 294 H Random Glucose 153 H D Calcium 8.2 L Phosphorus 3.0 Magnesium 2.2 Total Bilirubin 0.9 AST 7 L D ALT 20 Alkaline Phosphatase 46 Total Protein 4.4 L Albumin 2.4 L Globulin 2.1 L Albumin/Globulin Ratio 1.2 Arterial Blood Potassium 04/12/18 04/12/18 04/12/18 07:28 11:22 16:31 WBC RBC Hgb Hct MCV MCH MCHC RDW Plt Count MPV Neut % (Auto) Lymph % (Auto) [place] % (Auto) Eos % (Auto) Baso % (Auto) Neut # (Auto) Lymph # (Auto) [place] # (Auto) Eos # (Auto) Baso # (Auto) Neutrophils % (Manual) Lymphocytes % (Manual) Monocytes % (Manual) Platelet Estimate Polychromasia Hypochromasia (manual) Anisocytosis (manual) Puncture Site pCO2 pO2 HCO3 ABG pH ABG Total CO2 ABG O2 Saturation ABG Base Excess Pawel Test ABG Potassium A-a O2 Difference Respiratory Index Glucose Lactate FiO2 Sodium Potassium Chloride Carbon Dioxide Anion Gap BUN Creatinine Est GFR ( Amer) Est GFR (Non-Af Amer) POC Glucose (mg/dL) 155 H 117 H 80 Random Glucose Calcium Phosphorus Magnesium Total Bilirubin AST ALT Alkaline Phosphatase Total Protein Albumin Globulin Albumin/Globulin Ratio Arterial Blood Potassium 04/12/18 16:56 WBC RBC Hgb Hct MCV MCH MCHC RDW Plt Count MPV Neut % (Auto) Lymph % (Auto) [place] % (Auto) Eos % (Auto) Baso % (Auto) Neut # (Auto) Lymph # (Auto) [place] # (Auto) Eos # (Auto) Baso # (Auto) Neutrophils % (Manual) Lymphocytes % (Manual) Monocytes % (Manual) Platelet Estimate Polychromasia Hypochromasia (manual) Anisocytosis (manual) Puncture Site Rra pCO2 45 pO2 81 HCO3 31.1 H ABG pH 7.47 H ABG Total CO2 34.2 H ABG O2 Saturation 97.5 ABG Base Excess 8.0 H Pawel Test Na ABG Potassium 3.8 A-a O2 Difference 184.0 Respiratory Index 2.3 Glucose 71 Lactate 1.7 FiO2 45.0 Sodium 137.0 Potassium Chloride 104.0 Carbon Dioxide Anion Gap BUN Creatinine Est GFR ( Amer) Est GFR (Non-Af Amer) POC Glucose (mg/dL) Random Glucose Calcium Phosphorus Magnesium Total Bilirubin AST ALT Alkaline Phosphatase Total Protein Albumin Globulin Albumin/Globulin Ratio Arterial Blood Potassium 3.8 Radiology Impressions: Radiology Impressions Chest X-Ray 04/12/18 06:00 IMPRESSION: Moderate to large right pleural effusion with confluent consolidative changes in the right mid to lower lung zone. Left pleural drain with small left pleural effusion. Atherosclerotic calcification at the aortic knob. Enlarged ectatic aorta. Cardiomegaly. Right sided catheter noted in the right axilla. Degenerative changes in the spine and shoulders. Right paratracheal prominence may represent prominent vasculature. Abdomen/Pelvis CT 04/12/18 11:27 IMPRESSION: Abdominal free air raises concern for perforated viscus. Correlate clinically. Fat, fluid, and air within a left ventral abdominal hernia; hernia mouth measures approximately 2.2 cm. Diffuse soft tissue edema/anasarca. Severe fecal retention throughout the colon with suspected impaction at the rectosigmoid colon. Cholelithiasis. Suspect soft tissue or sludge within the gallbladder fossa. Moderate to large right-sided pleural effusion and associated compressive consolidation. Trace left effusion and mild left basilar atelectasis/pneumonia Cardiomegaly. Dense coronary artery calcifications. Small hiatal hernia/distal esophageal wall thickening. Additional incidental findings as above. Emergent findings discussed with the patient's RN Alona on 04/12/18 at 3:02 p.m. Chest X-Ray 04/12/18 16:19 IMPRESSION: In situ NGT and left-sided chest tube catheter as described. Persistent large right-sided effusion with consolidation changes right mid to lower lung field. Mild left basilar atelectasis and/or infiltrate. Mild left basilar atelectasis and or infiltrate with small residual left-sided effusion note that poor inspiration exacerbates all of these findings. Chest X-Ray 04/12/18 18:05 IMPRESSION: No adverse findings following TLC catheter placement. Critical Care Progress Note - Nutrition Nutrition: Nutrition Category Date Time Status NPO Diet [DIET] Diets 04/12/18 Breakfast Active
[2018-04-12] MEDS: Pantoprazole 40 mg Susp UD PO SCH (10:48)
[2018-04-12] MEDS: Silver Sulfadiazine 1% Cream (20 gm) TOP SCH ×2 (10:49→17:01)
--- NOTE | 2018-04-12 10:59 | CP.PCM.PN ---
Subjective - Date & Time of Evaluation Date of Evaluation: 04/12/18 Time of Evaluation: 10:56 - Subjective Subjective: pt uncomfortale today has abd pain Objective - Vital Signs/Intake and Output Vital Signs (last 24 hours): Temp Pulse Resp BP Pulse Ox 97.4 F L 72 38 H 126/97 H 94 L 04/12/18 08:00 04/12/18 09:15 04/12/18 09:15 04/12/18 09:15 04/12/18 09:15 Intake and Output: 04/12/18 04/12/18 06:59 18:59 Intake Total 830 100 Output Total 1260 Balance -430 100 - Medications Medications: Current Medications Acetaminophen (Tylenol 325mg Tab) 650 mg PO Q6 PRN PRN Reason: Fever >100.4 F Last Admin: 04/02/18 04:36 Dose: 650 mg Albuterol/Ipratropium (Duoneb 3 Mg/0.5 Mg (3 Ml) Ud) 3 ml INH RQ6 [facility] Last Admin: 04/12/18 07:30 Dose: 3 ml Amiodarone HCl (Cordarone) 200 mg PO DAILY [facility] Last Admin: 04/12/18 10:44 Dose: 200 mg Apixaban (Eliquis) 5 mg PO BID [facility] Last Admin: 04/11/18 17:28 Dose: 5 mg Ascorbic Acid (Vitamin C 500 Mg Tab) 500 mg PO BID [facility] Last Admin: 04/12/18 10:49 Dose: 500 mg Bacitracin (Bacitracin) 0 gm TOP BID [facility] Last Admin: 04/12/18 10:43 Dose: 1 applic Diltiazem HCl (Cardizem) 30 mg PO Q8 [facility] Last Admin: 04/12/18 05:13 Dose: 30 mg Fluconazole (Diflucan Iv 100 Mg/50 Ml Ns) 50 mls @ 100 mls/hr IVPB DAILY [facility]; Protocol Last Admin: 04/12/18 10:44 Dose: 100 mls/hr Cefepime HCl (Maxipime Iv 1 Gm Premix) 1 gm in 50 mls @ 100 mls/hr IVPB Q12H [facility]; Protocol Last Admin: 04/12/18 03:33 Dose: 100 mls/hr Insulin Glargine (Lantus) 5 unit SC HS [facility] Last Admin: 04/11/18 21:48 Dose: 5 units Insulin Human Regular (Novolin R) 6 unit SC ACHS [facility] Last Admin: 04/12/18 08:49 Dose: 6 units Lactulose (Enulose) 20 gm PO HS PRN PRN Reason: Constipation Last Admin: 04/12/18 10:21 Dose: 20 gm Multivitamins/Vitamin C (Multi-Delyn Liquid) 5 ml PO DAILY [facility] Last Admin: 04/12/18 10:47 Dose: 5 ml Nystatin (Nystop Topical Powder) 1 applic TOP BID [facility] Last Admin: 04/12/18 10:48 Dose: 1 applic Pantoprazole Sodium (Protonix Susp) 40 mg PO DAILY [facility] Last Admin: 04/12/18 10:48 Dose: 40 mg Silver Sulfadiazine (Silvadene 1% 20 Gm) 0 ea TOP BID [facility] Last Admin: 04/12/18 10:49 Dose: 1 applic Zinc Sulfate (Zinc Sulfate 220 Mg Cap) 220 mg PO DAILY [facility] Last Admin: 04/12/18 10:50 Dose: 220 mg - Labs Labs: 04/12/18 05:52 04/12/18 05:52 PT 15.5 SECONDS (9.7-12.2) H 04/07/18 10:47 INR 1.4 04/07/18 10:47 APTT 34 SECONDS (21-34) 03/31/18 06:13 - Constitutional Appears: In Acute Distress - Head Exam Head Exam: ATRAUMATIC - Eye Exam Eye Exam: Normal appearance Pupil Exam: NORMAL ACCOMODATION - ENT Exam ENT Exam: Normal Exam - Neck Exam Neck Exam: Full ROM - Respiratory Exam Respiratory Exam: Decreased Breath Sounds - Cardiovascular Exam Cardiovascular Exam: REGULAR RHYTHM - GI/Abdominal Exam GI & Abdominal Exam: Tenderness Additional comments: umblical mass - Back Exam Back Exam: NORMAL INSPECTION - Neurological Exam Additional comments: in bed - Psychiatric Exam Psychiatric exam: Depressed - Skin Skin Exam: Pallor Assessment and Plan - Assessment and Plan (Free Text) Assessment: abd pain umblical hernia increased effusion may need another chest tube after d/c anticoagulant
[2018-04-12] MEDS ORDERED: DOPamine 400mg/250ml D5W 400 MG/250 ML BAG IV PRN (14:33)
--- NOTE | 2018-04-12 15:11 | CT ---
PROCEDURE: CT Abdomen and Pelvis without Oral or IV contrast. HISTORY: abdominal pain, umbilical hernia COMPARISON: CT chest, abdomen, and pelvis without IV contrast performed 02/25/18 TECHNIQUE: Contiguous axial images of the abdomen and pelvis. No oral or IV contrast administered. Coronal and Sagittal reformats generated and reviewed. Radiation dose: Total exam DLP = 1446.72 mGy-cm. This CT exam was performed using one or more of the following dose reduction techniques: Automated exposure control, adjustment of the mA and/or kV according to patient size, and/or use of iterative reconstruction technique. FINDINGS: There is limited evaluation of the solid organs without the administration of IV contrast. LOWER THORAX: Moderate to large right-sided pleural effusion and associated compressive consolidation. Trace left effusion and mild left basilar atelectasis/pneumonia. Cardiomegaly. Dense coronary artery calcifications. Small hiatal hernia/distal esophageal wall thickening. LIVER: Unremarkable. GALLBLADDER AND BILE DUCTS: Cholelithiasis. Suspect soft tissue or sludge within the gallbladder fossa. PANCREAS: Atrophy. SPLEEN: Unremarkable. ADRENALS: Unremarkable. KIDNEYS AND URETERS: No hydronephrosis or obstructing renal calculus. BLADDER: Urinary bladder distension. REPRODUCTIVE: Uterus appears atrophic. APPENDIX: The appendix is not identified. No secondary signs of acute appendicitis. BOWEL: The stomach is nondistended. Lack of oral contrast limits evaluation for bowel pathology. No evidence of bowel obstruction. Severe fecal retention throughout the colon with suspected impaction at the rectosigmoid colon. PERITONEUM: Abdominal free air. No significant free fluid. LYMPH NODES: No bulky lymphadenopathy identified. VASCULATURE: Dense atherosclerotic calcifications of the aorta and branches. No aortic aneurysm. BONES: Osseous demineralization. Scoliosis. Extensive multilevel degenerative changes. OTHER FINDINGS: Diffuse soft tissue edema/anasarca. Fat, fluid, and air within a left ventral abdominal hernia; hernia mouth measures approximately 2.2 cm. IMPRESSION: Abdominal free air raises concern for perforated viscus. Correlate clinically. Fat, fluid, and air within a left ventral abdominal hernia; hernia mouth measures approximately 2.2 cm. Diffuse soft tissue edema/anasarca. Severe fecal retention throughout the colon with suspected impaction at the rectosigmoid colon. Cholelithiasis. Suspect soft tissue or sludge within the gallbladder fossa. Moderate to large right-sided pleural effusion and associated compressive consolidation. Trace left effusion and mild left basilar atelectasis/pneumonia Cardiomegaly. Dense coronary artery calcifications. Small hiatal hernia/distal esophageal wall thickening. Additional incidental findings as above. Emergent findings discussed with the patient's RN Alona on 04/12/18 at 3:02 p.m.
[2018-04-12] MEDS ORDERED: Dextrose 50% SYRINGE Inj (50 ml) IV STA (16:36)
--- NOTE | 2018-04-12 16:41 | CP.PCM.PN ---
Subjective - Date & Time of Evaluation Date of Evaluation: 04/12/18 Time of Evaluation: 12:27 - Subjective Subjective: Pulm Note for Dr. Amador Patient was seen and examined at bedside this morning. During the morning, patient was complaining of abdominal pain. Initially it was thought to be secondary to constipation but as her pain worsened, she eventually had a abdominal CT which showed free air in the abdomen, likely secondary to a perforated viscus. Surgery was consulted but due to patient receiving her last dose of Eliquis on 04/11/17 in the evening, she is a significant bleeding risk. Patient's pain has since been better controlled and she is currently feeling slightly better. She is saturating 90-95% on 10L @50% FiO2 with high humidity aerosol mask. Patient pending surgical intervention. Objective - Vital Signs/Intake and Output Vital Signs (last 24 hours): Temp Pulse Resp BP Pulse Ox 98.0 F 105 H 26 H 90/70 L 90 L 04/12/18 12:00 04/12/18 15:50 04/12/18 15:50 04/12/18 15:50 04/12/18 15:50 Intake and Output: 04/12/18 04/12/18 06:59 18:59 Intake Total 830 250 Output Total 1260 Balance -430 250 - Medications Medications: Current Medications Acetaminophen (Tylenol 325mg Tab) 650 mg PO Q6 PRN PRN Reason: Fever >100.4 F Last Admin: 04/02/18 04:36 Dose: 650 mg Albuterol/Ipratropium (Duoneb 3 Mg/0.5 Mg (3 Ml) Ud) 3 ml INH RQ6 [facility] Last Admin: 04/12/18 07:30 Dose: 3 ml Amiodarone HCl (Cordarone) 200 mg PO DAILY [facility] Last Admin: 04/12/18 10:45 Dose: Not Given Apixaban (Eliquis) 5 mg PO BID [facility] Last Admin: 04/11/18 17:28 Dose: 5 mg Ascorbic Acid (Vitamin C 500 Mg Tab) 500 mg PO BID [facility] Last Admin: 04/12/18 10:49 Dose: 500 mg Bacitracin (Bacitracin) 0 gm TOP BID [facility] Last Admin: 04/12/18 10:43 Dose: 1 applic Diltiazem HCl (Cardizem) 30 mg PO Q8 [facility] Last Admin: 04/12/18 14:26 Dose: Not Given Fluconazole (Diflucan Iv 100 Mg/50 Ml Ns) 50 mls @ 100 mls/hr IVPB DAILY [facility]; Protocol Last Admin: 04/12/18 10:44 Dose: 100 mls/hr Cefepime HCl (Maxipime Iv 1 Gm Premix) 1 gm in 50 mls @ 100 mls/hr IVPB Q12H [facility]; Protocol Last Admin: 04/12/18 03:33 Dose: 100 mls/hr Dopamine HCl/Dextrose (Dopamine 400mg/250ml D5w) 400 mg in 250 mls @ 7.753 mls/hr IV .Q24H PRN; Protocol PRN Reason: TITRATE PER MD ORDER Last Admin: 04/12/18 15:50 Dose: 2 mcg/kg/min, 7.753 mls/hr Insulin Glargine (Lantus) 5 unit SC HS [facility] Last Admin: 04/11/18 21:48 Dose: 5 units Insulin Human Regular (Novolin R) 6 unit SC ACHS [facility] Last Admin: 04/12/18 11:41 Dose: Not Given Lactulose (Enulose) 20 gm PO HS PRN PRN Reason: Constipation Last Admin: 04/12/18 10:21 Dose: 20 gm Multivitamins/Vitamin C (Multi-Delyn Liquid) 5 ml PO DAILY [facility] Last Admin: 04/12/18 10:47 Dose: 5 ml Nystatin (Nystop Topical Powder) 1 applic TOP BID [facility] Last Admin: 04/12/18 10:48 Dose: 1 applic Pantoprazole Sodium (Protonix Susp) 40 mg PO DAILY [facility] Last Admin: 04/12/18 10:48 Dose: 40 mg Silver Sulfadiazine (Silvadene 1% 20 Gm) 0 ea TOP BID [facility] Last Admin: 04/12/18 10:49 Dose: 1 applic Zinc Sulfate (Zinc Sulfate 220 Mg Cap) 220 mg PO DAILY [facility] Last Admin: 04/12/18 10:50 Dose: 220 mg - Labs Labs: 04/12/18 05:52 04/12/18 05:52 PT 15.5 SECONDS (9.7-12.2) H 04/07/18 10:47 INR 1.4 04/07/18 10:47 APTT 34 SECONDS (21-34) 12/26/18 06:13 - Constitutional Appears: No Acute Distress - Head Exam Head Exam: ATRAUMATIC, NORMOCEPHALIC - Eye Exam Eye Exam: Normal appearance - ENT Exam ENT Exam: Mucous Membranes Moist Additional comments: NGT in place - Neck Exam Additional comments: Left IJ central line - Respiratory Exam Respiratory Exam: Decreased Breath Sounds (right base). absent: Rhonchi, Wheezes, NORMAL BREATHING PATTERN (RR 40-50s) - Cardiovascular Exam Cardiovascular Exam: Tachycardia, Irregular Rhythm - GI/Abdominal Exam GI & Abdominal Exam: Guarding, Soft, Tenderness (mild, diffuse). absent: Distended, Firm, Rigid - Extremities Exam Additional comments: anasarca - Neurological Exam Neurological Exam: Alert, Awake, Oriented x3 Assessment and Plan (1) Acute respiratory failure Assessment & Plan: Left sided pigtail catheter in place --> output approx 350mL over 24 hours Initially planning for pigtail catheter on right side on Thursday but is now pending surgical intervention for free air BiPAP as needed overnight switched to non-rebreather due to RR of 40-50s Eliquis discontinued Status: Acute (2) Free intraperitoneal air Assessment & Plan: follow up surgical recs Status: Acute (3) Atrial fibrillation and flutter Status: Acute (4) CHF (congestive heart failure) Status: Acute (5) Pleural effusion Assessment & Plan: Initially was planning to do thoracentesis on Thursday but will now wait and see what surgery plans to do. P Status: Acute
[2018-04-12 16:58] LABS: ARTERIAL BLOOD GAS HCO3 31.1 mmol/L (21-28); ARTERIAL BLOOD GAS O2 SAT 97.5 % (95-98); ARTERIAL BLOOD GAS PCO2 45 mm/Hg (35-45); ARTERIAL BLOOD GAS PH 7.47 (7.35-7.45); ARTERIAL BLOOD GAS PO2 81 mm/Hg (80-100); ARTERIAL BLOOD GAS TCO2 34.2 mmol/L (22-28)
--- NOTE | 2018-04-12 17:03 | RAD ---
Date of service: 04/12/2018 HISTORY: s/p NGT insertion COMPARISON: No prior. FINDINGS: In situ NGT, the tip of which lies left parasagittal upper-mid abdomen. In situ left sided pigtail chest tube catheter, coiled component of which overlies left CP angle. LUNGS: Persistent large right-sided effusion with consolidation changes right mid to lower lung field. Mild left basilar atelectasis and/or infiltrate. Mild left basilar atelectasis and or infiltrate with small residual left-sided effusion note that poor inspiration exacerbates all of these findings. PLEURA: Large right-sided effusion again noted with smaller left-sided effusion despite situ left-sided pigtail chest tube catheter, coil of which overlies the left CP angle region.. No pneumothorax apparent. CARDIOVASCULAR: Minor aortic atherosclerotic calcification present. Cardiomegaly.. No pulmonary vascular congestion. OSSEOUS STRUCTURES: No significant abnormalities. VISUALIZED UPPER ABDOMEN: Normal. OTHER FINDINGS: None. IMPRESSION: In situ NGT and left-sided chest tube catheter as described. Persistent large right-sided effusion with consolidation changes right mid to lower lung field. Mild left basilar atelectasis and/or infiltrate. Mild left basilar atelectasis and or infiltrate with small residual left-sided effusion note that poor inspiration exacerbates all of these findings.
--- NOTE | 2018-04-12 17:43 | CP.PCM.CON ---
<Jason Sandhu - Last Filed: 04/12/18 21:48> History of Present Illness - History of Present Illness History of Present Illness: Surgery Consult note. Dr. Gordon 82yo F with PMHx of CHF, HTN, AFib on eliquis, and recurrent pleural effusions sent from [facility] on 03/23/19 for increasing shortness of breath. Patient has had in extended hospital stay and has had multiple thoracenthesis during this hospital admission. This morning, patient reported acute epigastric abdominal pain and a CT Abd/Pelvis was obtained by the ICU team with evidence of free air. General surgery consult was obtained. Patient is currently alert and oriented. States that her abdominal pain is mild and is located in the periumbilical and epigastric region. She states that she has not had a bowel movement in the past 2 days. Denies any N/V. Denies any fevers or chills. Still c/o shortness of breath. Denies any chest pain. No urinary complaints. No other complaints ilicited. Daughter at bedside during the entire patient encounter. PMHx: CHF, HTN, AFib on eliquis PSurgHx: denies abd surgery in the past; has had multiple thoracentesis in the past for recurrent pleural effusion FamHx: noncontributory SocHx: denies tobacco, denies EToH, denies illicit drug use ALL: warfarin Review of Systems - Review of Systems All systems: reviewed and no additional remarkable complaints except Review of Systems: as per HPI Past Patient History - Infectious Disease Hx of Infectious Diseases: None - Tetanus Immunizations Tetanus Immunization: Unknown - Past Medical History & Family History Past Medical History?: Yes Past Family History: Reviewed and not pertinent - Past Social History Smoking Status: Never Smoked Alcohol: None Drugs: Denies Home Situation {Lives}: [facility] - CARDIAC Hx Congestive Heart Failure: Yes - PULMONARY Hx Chronic Obstructive Pulmonary Disease (COPD): Yes - NEUROLOGICAL Hx Dementia: Yes - ENDOCRINE/METABOLIC Hx Endocrine Disorders: No - HEMATOLOGICAL/ONCOLOGICAL Hx Blood Disorders: No - INTEGUMENTARY Other/Comment: weeping edema, on bilateral lower ext - MUSCULOSKELETAL/RHEUMATOLOGICAL Hx Arthritis: Yes (R SH) - GASTROINTESTINAL Hx Gastrointestinal Disorders: No - GENITOURINARY/GYNECOLOGICAL Hx Genitourinary Disorders: No - PSYCHIATRIC Hx Substance Use: No - SURGICAL HISTORY Hx Surgeries: No - ANESTHESIA Hx Anesthesia: Yes Meds Allergies/Adverse Reactions: Allergies Allergy/AdvReac Type Severity Reaction Status Date / Time warfarin [From Coumadin] Allergy Verified 03/23/18 08:16 - Medications Medications: Current Medications Acetaminophen (Tylenol 325mg Tab) 650 mg PO Q6 PRN PRN Reason: Fever >100.4 F Last Admin: 04/02/18 04:36 Dose: 650 mg Albuterol/Ipratropium (Duoneb 3 Mg/0.5 Mg (3 Ml) Ud) 3 ml INH RQ6 [facility] Last Admin: 04/12/18 07:30 Dose: 3 ml Amiodarone HCl (Cordarone) 200 mg PO DAILY [facility] Last Admin: 04/12/18 10:45 Dose: Not Given Apixaban (Eliquis) 5 mg PO BID [facility] Last Admin: 04/11/18 17:28 Dose: 5 mg Ascorbic Acid (Vitamin C 500 Mg Tab) 500 mg PO BID [facility] Last Admin: 04/12/18 17:03 Dose: Not Given Bacitracin (Bacitracin) 0 gm TOP BID [facility] Last Admin: 04/12/18 17:02 Dose: 1 applic Diltiazem HCl (Cardizem) 30 mg PO Q8 [facility] Last Admin: 04/12/18 14:26 Dose: Not Given Fluconazole (Diflucan Iv 100 Mg/50 Ml Ns) 50 mls @ 100 mls/hr IVPB DAILY [facility]; Protocol Last Admin: 04/12/18 10:44 Dose: 100 mls/hr Cefepime HCl (Maxipime Iv 1 Gm Premix) 1 gm in 50 mls @ 100 mls/hr IVPB Q12H [facility]; Protocol Last Admin: 04/12/18 16:49 Dose: 100 mls/hr Dopamine HCl/Dextrose (Dopamine 400mg/250ml D5w) 400 mg in 250 mls @ 7.753 mls/hr IV .Q24H PRN; Protocol PRN Reason: TITRATE PER MD ORDER Last Admin: 04/12/18 15:50 Dose: 2 mcg/kg/min, 7.753 mls/hr Piperacillin Sod/Tazobactam Sod (Zosyn 3.375 Gm Iv Premix) 3.375 gm in 50 mls @ 100 mls/hr IVPB Q6H [facility]; Protocol Insulin Glargine (Lantus) 5 unit SC HS [facility] Last Admin: 04/11/18 21:48 Dose: 5 units Insulin Human Regular (Novolin R) 6 unit SC ACHS [facility] Last Admin: 04/12/18 16:59 Dose: Not Given Lactulose (Enulose) 20 gm PO HS PRN PRN Reason: Constipation Last Admin: 04/12/18 10:21 Dose: 20 gm Multivitamins/Vitamin C (Multi-Delyn Liquid) 5 ml PO DAILY [facility] Last Admin: 04/12/18 10:47 Dose: 5 ml Nystatin (Nystop Topical Powder) 1 applic TOP BID [facility] Last Admin: 04/12/18 17:01 Dose: 1 applic Pantoprazole Sodium (Protonix Susp) 40 mg PO DAILY [facility] Last Admin: 04/12/18 10:48 Dose: 40 mg Silver Sulfadiazine (Silvadene 1% 20 Gm) 0 ea TOP BID [facility] Last Admin: 04/12/18 17:01 Dose: 1 applic Zinc Sulfate (Zinc Sulfate 220 Mg Cap) 220 mg PO DAILY [facility] Last Admin: 04/12/18 10:50 Dose: 220 mg Physical Exam - Constitutional Appears: Non-toxic, No Acute Distress - Head Exam Head Exam: ATRAUMATIC, NORMAL INSPECTION, NORMOCEPHALIC - Eye Exam Eye Exam: EOMI, Normal appearance. absent: Conjunctival injection, Scleral icterus - ENT Exam ENT Exam: Mucous Membranes Moist Additional comments: supplemental O2 via ventimask - Respiratory Exam Respiratory Exam: NORMAL BREATHING PATTERN. absent: Accessory Muscle Use, Respiratory Distress - Cardiovascular Exam Cardiovascular Exam: Tachycardia. absent: JVD - GI/Abdominal Exam Additional comments: soft nontender nondistended. no peritoneal signs no guarding mild tenderness to palpation at the periumbilical region and epigastric region and RLQ no skin changes or surgical scars noted throughout the abdomen large pannus noted - Extremities Exam Extremities exam: Positive for: normal inspection. Negative for: calf tenderness - Neurological Exam Neurological exam: Alert, Oriented x3 - Psychiatric Exam Psychiatric exam: Normal Affect, Normal Mood - Skin Skin Exam: Dry, Intact, Normal Color, Warm Results - Vital Signs Recent Vital Signs: Last Vital Signs Temp 98.0 F 04/12/18 12:00 Pulse 107 H 04/12/18 17:07 Resp 22 04/12/18 17:07 BP 93/69 L 04/12/18 17:07 Pulse Ox 95 01/07/19 16:58 - Labs Result Diagrams: 04/12/18 05:52 04/12/18 05:52 Labs: Laboratory Results - last 24 hr 04/11/18 04/12/18 04/12/18 20:35 05:52 05:52 WBC 9.4 RBC 4.21 Hgb 11.2 Hct 35.8 MCV 85.1 MCH 26.5 L MCHC 31.1 L RDW 26.4 H Plt Count 182 MPV 9.6 Neut % (Auto) 81.3 H Lymph % (Auto) 4.1 L Benton % (Auto) 14.5 H Eos % (Auto) 0.0 Baso % (Auto) 0.1 Neut # (Auto) 7.6 H Lymph # (Auto) 0.4 L Benton # (Auto) 1.4 H Eos # (Auto) 0.0 Baso # (Auto) 0.0 Neutrophils % (Manual) 88 H Lymphocytes % (Manual) 3 L Monocytes % (Manual) 9 Platelet Estimate Normal Polychromasia Slight Hypochromasia (manual) Slight Anisocytosis (manual) Slight Puncture Site pCO2 pO2 HCO3 ABG pH ABG Total CO2 ABG O2 Saturation ABG Base Excess Pawel Test ABG Potassium A-a O2 Difference Respiratory Index Glucose Lactate FiO2 Sodium 135 Potassium 4.0 Chloride 96 L Carbon Dioxide 35 H Anion Gap 8 L BUN 48 H Creatinine 0.7 Est GFR ( Amer) > 60 Est GFR (Non-Af Amer) > 60 POC Glucose (mg/dL) 294 H Random Glucose 153 H D Calcium 8.2 L Phosphorus 3.0 Magnesium 2.2 Total Bilirubin 0.9 AST 7 L D ALT 20 Alkaline Phosphatase 46 Total Protein 4.4 L Albumin 2.4 L Globulin 2.1 L Albumin/Globulin Ratio 1.2 Arterial Blood Potassium 04/12/18 04/12/18 04/12/18 07:28 11:22 16:31 WBC RBC Hgb Hct MCV MCH MCHC RDW Plt Count MPV Neut % (Auto) Lymph % (Auto) Benton % (Auto) Eos % (Auto) Baso % (Auto) Neut # (Auto) Lymph # (Auto) Benton # (Auto) Eos # (Auto) Baso # (Auto) Neutrophils % (Manual) Lymphocytes % (Manual) Monocytes % (Manual) Platelet Estimate Polychromasia Hypochromasia (manual) Anisocytosis (manual) Puncture Site pCO2 pO2 HCO3 ABG pH ABG Total CO2 ABG O2 Saturation ABG Base Excess Pawel Test ABG Potassium A-a O2 Difference Respiratory Index Glucose Lactate FiO2 Sodium Potassium Chloride Carbon Dioxide Anion Gap BUN Creatinine Est GFR ( Amer) Est GFR (Non-Af Amer) POC Glucose (mg/dL) 155 H 117 H 80 Random Glucose Calcium Phosphorus Magnesium Total Bilirubin AST ALT Alkaline Phosphatase Total Protein Albumin Globulin Albumin/Globulin Ratio Arterial Blood Potassium 04/12/18 16:56 WBC RBC Hgb Hct MCV MCH MCHC RDW Plt Count MPV Neut % (Auto) Lymph % (Auto) Benton % (Auto) Eos % (Auto) Baso % (Auto) Neut # (Auto) Lymph # (Auto) Benton # (Auto) Eos # (Auto) Baso # (Auto) Neutrophils % (Manual) Lymphocytes % (Manual) Monocytes % (Manual) Platelet Estimate Polychromasia Hypochromasia (manual) Anisocytosis (manual) Puncture Site Rra pCO2 45 pO2 81 HCO3 31.1 H ABG pH 7.47 H ABG Total CO2 34.2 H ABG O2 Saturation 97.5 ABG Base Excess 8.0 H Pawel Test Na ABG Potassium 3.8 A-a O2 Difference 184.0 Respiratory Index 2.3 Glucose 71 Lactate 1.7 FiO2 45.0 Sodium 137.0 Potassium Chloride 104.0 Carbon Dioxide Anion Gap BUN Creatinine Est GFR ( Amer) Est GFR (Non-Af Amer) POC Glucose (mg/dL) Random Glucose Calcium Phosphorus Magnesium Total Bilirubin AST ALT Alkaline Phosphatase Total Protein Albumin Globulin Albumin/Globulin Ratio Arterial Blood Potassium 3.8 Assessment & Plan - Assessment and Plan (Free Text) Assessment: 82yo F with suspected perforated viscus -CT Abd/Pelvis noted. NO gross free air under the diaphragm. Localized free air noted at the umbilical hernia and pericolonic regions. Plan: - Patient is on Eliquis, last dose 04/11/18 at 5:30PM - Discussed at length with family at bedside the risks and possible benefits of surgical interventions; family agree with conservative management in this acute period. - We will continue to monitor the patient's clinical course closely and make further recommendations as needed. - Recommend central venous catheter for ICU resuscitative management - Recommend broadening IV antibiotics; Zosyn - NGT placement for decompression - IV fluids - NPO Further recommendations as per Dr. Heidi Sandhu PGY2 Surgery <Milad Gordon - Last Filed: 04/22/18 08:51> Results - Vital Signs Recent Vital Signs: Last Vital Signs Temp 97 F L 04/21/18 20:00 Pulse 47 L 04/21/18 21:01 Resp 11 L 04/21/18 21:01 BP 63/30 L 04/21/18 21:01 Pulse Ox 97 04/21/18 17:00 - Labs Result Diagrams: 04/21/18 05:47 04/21/18 05:47 Labs: Laboratory Results - last 24 hr 04/21/18 04/21/18 05:47 11:51 WBC 1.6 L* RBC 2.44 L Hgb 6.6 L Hct 20.6 L MCV 84.7 MCH 27.2 MCHC 32.1 L RDW 24.5 H Plt Count 16 L* MPV 10.5 Neut % (Auto) 75.4 H Lymph % (Auto) 14.8 L Benton % (Auto) 7.9 Eos % (Auto) 1.2 Baso % (Auto) 0.7 Neut # (Auto) 1.2 L Lymph # (Auto) 0.2 L Benton # (Auto) 0.1 Eos # (Auto) 0.0 Baso # (Auto) 0.0 Differential Comment Smear Path Review POC Glucose (mg/dL) 127 H Attending/Attestation - Attestation I have personally seen and examined this patient.: Yes I have fully participated in the care of the patient.: Yes I have reviewed all pertinent clinical information: Yes Notes (Text): Pt was seen and examined at bedside Pt is 82 year old female with COPD, CHF, CAD, Pneumonia, B/L pleural effusion, severe malnutrition, coagulopathy Pt had CT scan of A/P suggestive of free air Pt is resting comfortably Abdomen : Soft, ND, MId tender in lower abdomen, No peritoneal signs Labs and Radiology reviewed Ass: Possible Diverticular perforation with COPD, CHF, CAD, Pneumonia, B/L pleural effusion, severe malnutrition, coagulopathy Plan: Due to severe comorbid condition, pt is not very poor candidate for any surgical intervention IV antibiotics NPO, IVF NG to LIS c.w ICU management Plan d.w ICU attending and family in detail Risk and benefit explained in detail.
--- NOTE | 2018-04-12 19:09 | RAD ---
Date of service: 04/12/2018 HISTORY: TLC insertion COMPARISON: April 12, 2018 Time of the most recent examination: 16:36. FINDINGS: LUNGS: Stable consolidative changes right lung greater than left. PLEURA: Stable pleural effusions. Stable position of pigtail catheter in the left pleural space. No visible pneumothorax. CARDIOVASCULAR: Atherosclerotic calcifications identified primarily aortic arch. Venous access catheter in satisfactory position. 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 OSSEOUS STRUCTURES: No significant abnormalities. VISUALIZED UPPER ABDOMEN: Normal. OTHER FINDINGS: Satisfactory position of nasogastric catheter. IMPRESSION: No adverse findings following TLC catheter placement.
[2018-04-12] MEDS: Piperacill/Tazo 3.375gm in Dex 3.375 GM/50 ML BAG IVPB SCH ×2 (19:16→23:58)
[2018-04-12 22:01] LABS: ALBUMIN 2.3 g/dL (3.5-5.0); ALT/SGPT 23 U/L (9-52); AST/SGOT 14 U/L (14-36); BLOOD UREA NITROGEN 54 mg/dL (7-17); CALCIUM 8.2 mg/dl (8.6-10.4); GFR NON-AFRICAN AMERICAN > 60
[2018-04-12] MEDS: (Lantus) Insulin Glargine, Recombinant SC SCH (22:48)
--- NOTE | 2018-04-12 23:26 | CP.PCM.PN ---
Subjective - Date & Time of Evaluation Date of Evaluation: 04/12/18 Time of Evaluation: 12:00 - Subjective Subjective: Podiatry Progress Note- Dr. Shah 82 yo female seen and evaluated at bedside for right posterior leg superficial ulceration with attending Dr. Shah. Patient is resting comfortably in bed and in NAD. Daugther at bedside during encounter. Denies of pain. She denies any acute pedal complaints at this time. Denies N/V/F/CP. Objective - Vital Signs/Intake and Output Vital Signs (last 24 hours): Temp Pulse Resp BP Pulse Ox 97.5 F L 102 H 19 93/68 L 100 04/12/18 16:00 04/12/18 20:00 04/12/18 20:00 04/12/18 20:00 04/12/18 20:00 Intake and Output: 04/12/18 04/13/18 18:59 06:59 Intake Total 350 15 Output Total 700 Balance -350 15 - Medications Medications: Current Medications Acetaminophen (Tylenol 325mg Tab) 650 mg PO Q6 PRN PRN Reason: Fever >100.4 F Last Admin: 04/02/18 04:36 Dose: 650 mg Albuterol/Ipratropium (Duoneb 3 Mg/0.5 Mg (3 Ml) Ud) 3 ml INH RQ6 [facility] Last Admin: 04/12/18 20:24 Dose: 3 ml Amiodarone HCl (Cordarone) 200 mg PO DAILY [facility] Last Admin: 04/12/18 10:45 Dose: Not Given Apixaban (Eliquis) 5 mg PO BID [facility] Last Admin: 04/11/18 17:28 Dose: 5 mg Ascorbic Acid (Vitamin C 500 Mg Tab) 500 mg PO BID [facility] Last Admin: 04/12/18 17:03 Dose: Not Given Bacitracin (Bacitracin) 0 gm TOP BID [facility] Last Admin: 04/12/18 17:02 Dose: 1 applic Diltiazem HCl (Cardizem) 30 mg PO Q8 [facility] Last Admin: 04/12/18 22:48 Dose: 30 mg Fluconazole (Diflucan Iv 100 Mg/50 Ml Ns) 50 mls @ 100 mls/hr IVPB DAILY [facility]; Protocol Last Admin: 04/12/18 10:44 Dose: 100 mls/hr Cefepime HCl (Maxipime Iv 1 Gm Premix) 1 gm in 50 mls @ 100 mls/hr IVPB Q12H [facility]; Protocol Last Admin: 04/12/18 16:49 Dose: 100 mls/hr Piperacillin Sod/Tazobactam Sod (Zosyn 3.375 Gm Iv Premix) 3.375 gm in 50 mls @ 100 mls/hr IVPB Q6H [facility]; Protocol Last Admin: 04/12/18 19:16 Dose: 100 mls/hr Norepinephrine Bitartrate 4 mg (/ Dextrose) 254 mls @ 15.24 mls/hr IV .[id number] PRN; Protocol PRN Reason: TITRATE PER MD ORDER Last Admin: 04/12/18 19:16 Dose: 4 mcg/min, 15.24 mls/hr Insulin Glargine (Lantus) 5 unit SC HS [facility] Last Admin: 04/12/18 22:48 Dose: 5 units Insulin Human Regular (Novolin R) 6 unit SC ACHS [facility] Last Admin: 04/12/18 22:46 Dose: Not Given Lactulose (Enulose) 20 gm PO HS PRN PRN Reason: Constipation Last Admin: 04/12/18 10:21 Dose: 20 gm Multivitamins/Vitamin C (Multi-Delyn Liquid) 5 ml PO DAILY [facility] Last Admin: 04/12/18 10:47 Dose: 5 ml Nystatin (Nystop Topical Powder) 1 applic TOP BID [facility] Last Admin: 04/12/18 17:01 Dose: 1 applic Pantoprazole Sodium (Protonix Susp) 40 mg PO DAILY [facility] Last Admin: 04/12/18 10:48 Dose: 40 mg Silver Sulfadiazine (Silvadene 1% 20 Gm) 0 ea TOP BID [facility] Last Admin: 04/12/18 17:01 Dose: 1 applic Zinc Sulfate (Zinc Sulfate 220 Mg Cap) 220 mg PO DAILY [facility] Last Admin: 04/12/18 10:50 Dose: 220 mg - Labs Labs: 04/12/18 05:52 04/12/18 21:30 PT 15.5 SECONDS (9.7-12.2) H 04/07/18 10:47 INR 1.4 04/07/18 10:47 APTT 34 SECONDS (21-34) 03/31/18 06:13 - Constitutional Appears: Well, Non-toxic, No Acute Distress - Extremities Exam Extremities Exam: absent: Calf Tenderness Additional comments: Lower extremity focused exam: Vasc: Pulses faintly palpable, secondary to edema, Temp gradient cool to cool from proximal to distal. CFT <3 secs x 10, +1 edema appreciated from tibial tuberosity to dorsal aspect of feet bilaterally. Ortho: No tenderness to palpation noted to lower extremity B/L DERM: Dry, flaky, hyperkeratotic skin noted to bilateral LE distal to tibial tuberosity. Mild superficial ulceration appreciated to the posterior aspect of the R leg, serous drainage appreciated. No purulence, no cellulities, no tunneling, no tracking, no clinical signs of infection at this time. Neuro: Gross and protective sensation intact B/L - Neurological Exam Neurological Exam: Alert, Awake - Psychiatric Exam Psychiatric exam: Normal Affect, Normal Mood Assessment and Plan - Assessment and Plan (Free Text) Assessment: 82 yo female seen and evaluated at bedside for right posterior leg superficial u lceration Plan: Patient seen and evaluated with attending Dr. Shah No leukocytosis, afebrile Wound cleansed, dressed with DSD, LEIDY Continue multipodus boots at all times in bed Will continue to follow while in house
[2018-04-13] MEDS: Albuterol-Ipratrop 3 mg / 0.5 (3 ml) UD INH SCH ×3 (02:13→19:55)
[2018-04-13] MEDS: Cefepime IV 1 gm in Dextrose 1 GM/50 ML BAG IVPB SCH ×2 (03:37→16:39)
[2018-04-13] MEDS: Piperacill/Tazo 3.375gm in Dex 3.375 GM/50 ML BAG IVPB SCH ×3 (05:47→17:04)
[2018-04-13 06:27] LABS: HEMOGLOBIN 12.2 g/dL (11.0-16.0); MEAN CELL VOLUME 86.7 fL (81.0-99.0); MEAN CORPUSCULAR HEMOGLOBIN 26.5 pg (27.0-31.0); MEAN CORPUSCULAR HGB CONC 30.6 g/dL (33.0-37.0); MEAN PLATELET VOLUME 10.9 fL (7.2-11.7); RBC 4.61 Mil/uL (3.80-5.20); RED CELL DISTRIBUTION WIDTH 26.5 % (11.5-14.5); WHITE BLOOD COUNT 18.5 K/uL (4.8-10.8)
[2018-04-13 06:35] LABS: INR 2.1; PROTHROMBIN TIME 23.1 SECONDS (9.7-12.2)
[2018-04-13 06:51] LABS: ALBUMIN 2.3 g/dL (3.5-5.0); ALT/SGPT 25 U/L (9-52); AST/SGOT 15 U/L (14-36); BLOOD UREA NITROGEN 58 mg/dL (7-17); CALCIUM 8.1 mg/dl (8.6-10.4); GFR NON-AFRICAN AMERICAN > 60
[2018-04-13] MEDS: (Novolin R) Insulin Human Regular 100 units/ml vial SC SCH ×4 (07:30→22:00)
--- NOTE | 2018-04-13 07:41 | CP.PCM.PN ---
<EdsonJason ferrera - Last Filed: 04/13/18 08:36> Subjective - Date & Time of Evaluation Date of Evaluation: 04/13/18 Time of Evaluation: 07:00 - Subjective Subjective: Surgery Progress note. Dr. Gordon Pt seen and examined at bedside. Alert and oriented. On 10mcg of levophed. Overnight UOP decreased to 100cc/12 hours. Still c/o abdominal discomfort which is mild. No fevers overnight. No new complaints. Daughter at bedside. Patient made DNR/DNI overnight and understands the high risks of surgical intervention, if warranted. Objective - Vital Signs/Intake and Output Vital Signs (last 24 hours): Temp Pulse Resp BP Pulse Ox 98.2 F 99 H 15 104/80 100 04/13/18 04:00 04/13/18 06:06 04/13/18 06:06 04/13/18 06:06 04/13/18 06:06 Intake and Output: 04/13/18 04/13/18 06:59 18:59 Intake Total 819.0 37.5 Output Total 2005 Balance -1186.0 37.5 - Medications Medications: Current Medications Acetaminophen (Tylenol 325mg Tab) 650 mg PO Q6 PRN PRN Reason: Fever >100.4 F Last Admin: 04/02/18 04:36 Dose: 650 mg Albuterol/Ipratropium (Duoneb 3 Mg/0.5 Mg (3 Ml) Ud) 3 ml INH RQ6 [facility] Last Admin: 04/13/18 02:13 Dose: Not Given Amiodarone HCl (Cordarone) 200 mg PO DAILY [facility] Last Admin: 04/12/18 10:45 Dose: Not Given Apixaban (Eliquis) 5 mg PO BID [facility] Last Admin: 04/11/18 17:28 Dose: 5 mg Ascorbic Acid (Vitamin C 500 Mg Tab) 500 mg PO BID [facility] Last Admin: 04/12/18 17:03 Dose: Not Given Bacitracin (Bacitracin) 0 gm TOP BID [facility] Last Admin: 04/12/18 17:02 Dose: 1 applic Diltiazem HCl (Cardizem) 30 mg PO Q8 [facility] Last Admin: 04/13/18 05:46 Dose: 30 mg Fluconazole (Diflucan Iv 100 Mg/50 Ml Ns) 50 mls @ 100 mls/hr IVPB DAILY [facility]; Protocol Last Admin: 04/12/18 10:44 Dose: 100 mls/hr Cefepime HCl (Maxipime Iv 1 Gm Premix) 1 gm in 50 mls @ 100 mls/hr IVPB Q12H [facility]; Protocol Last Admin: 04/13/18 03:37 Dose: 100 mls/hr Piperacillin Sod/Tazobactam Sod (Zosyn 3.375 Gm Iv Premix) 3.375 gm in 50 mls @ 100 mls/hr IVPB Q6H [facility]; Protocol Last Admin: 04/13/18 05:47 Dose: 100 mls/hr Norepinephrine Bitartrate 4 mg (/ Dextrose) 254 mls @ 15.24 mls/hr IV .[id number] PRN; Protocol PRN Reason: TITRATE PER MD ORDER Last Admin: 04/13/18 02:04 Dose: 9.84 mcg/min, 37.5 mls/hr Insulin Glargine (Lantus) 5 unit SC HS [facility] Last Admin: 04/12/18 22:48 Dose: 5 units Insulin Human Regular (Novolin R) 6 unit SC ACHS [facility] Last Admin: 04/12/18 22:46 Dose: Not Given Lactulose (Enulose) 20 gm PO HS PRN PRN Reason: Constipation Last Admin: 04/12/18 10:21 Dose: 20 gm Multivitamins/Vitamin C (Multi-Delyn Liquid) 5 ml PO DAILY [facility] Last Admin: 04/12/18 10:47 Dose: 5 ml Nystatin (Nystop Topical Powder) 1 applic TOP BID [facility] Last Admin: 04/12/18 17:01 Dose: 1 applic Pantoprazole Sodium (Protonix Susp) 40 mg PO DAILY [facility] Last Admin: 04/12/18 10:48 Dose: 40 mg Silver Sulfadiazine (Silvadene 1% 20 Gm) 0 ea TOP BID [facility] Last Admin: 04/12/18 17:01 Dose: 1 applic Zinc Sulfate (Zinc Sulfate 220 Mg Cap) 220 mg PO DAILY [facility] Last Admin: 04/12/18 10:50 Dose: 220 mg - Labs Labs: 04/13/18 06:10 04/13/18 06:10 PT 23.1 SECONDS (9.7-12.2) H 04/13/18 06:10 INR 2.1 04/13/18 06:10 APTT 37 SECONDS (21-34) H 04/13/18 06:10 - Constitutional Appears: Well, Non-toxic, No Acute Distress - Head Exam Head Exam: ATRAUMATIC, NORMAL INSPECTION, NORMOCEPHALIC - Eye Exam Eye Exam: EOMI, Normal appearance. absent: Scleral icterus - ENT Exam ENT Exam: Mucous Membranes Moist - Respiratory Exam Respiratory Exam: NORMAL BREATHING PATTERN. absent: Accessory Muscle Use, Respiratory Distress Additional comments: left chest tube in place. - Cardiovascular Exam Cardiovascular Exam: absent: JVD, RRR - GI/Abdominal Exam GI & Abdominal Exam: Soft. absent: Distended, Rebound Additional comments: Abd soft, non-distended. No peritoneal signs. Mild-mod tenderness at [place]-umbilical region, RLQ and epigastric region. No rebound. No guarding. - Extremities Exam Extremities Exam: Normal Inspection. absent: Calf Tenderness - Neurological Exam Neurological Exam: Alert, Awake, Oriented x3 - Psychiatric Exam Psychiatric exam: Normal Affect, Normal Mood - Skin Skin Exam: Dry, Intact, Normal Color, Warm Assessment and Plan - Assessment and Plan (Free Text) Assessment: 82yo F with suspected perforated viscus Plan: - Patient now DNR/DNI - We will continue to monitor patient status clinically and make further recs as clinically warranted - Continue NGT - IVF and resusitative management as per ICU team - IV Abx - NPO - Medical management for now. Further recs as per Dr. Heidi Sandhu PYG2 surgery <Milad Gordon - Last Filed: 04/22/18 08:52> Objective - Vital Signs/Intake and Output Vital Signs (last 24 hours): Temp Pulse Resp BP Pulse Ox 97 F L 47 L 11 L 63/30 L 97 04/21/18 20:00 04/21/18 21:01 04/21/18 21:01 04/21/18 21:01 04/21/18 17:00 Intake and Output: 04/22/18 04/22/18 06:59 18:59 Intake Total 15 Balance 15 - Labs Labs: 04/21/18 05:47 04/21/18 05:47 PT 23.5 SECONDS (9.7-12.2) H 04/20/18 06:32 INR 2.1 04/20/18 06:32 APTT 52 SECONDS (21-34) H D 04/20/18 06:32 Attending/Attestation - Attestation I have personally seen and examined this patient.: Yes I have fully participated in the care of the patient.: Yes I have reviewed all pertinent clinical information, including history, physical exam and plan: Yes Notes (Text): Pt was seen and examined at bedside Pt with Diverticular perforation with COPD, CHF, CAD, Pneumonia, B/L pleural effusion, severe malnutrition, coagulopathy c/w current mx IV antibiotics Plan d.w ICU attending and family in detail Risk and benefit explained in detail.
--- NOTE | 2018-04-13 10:04 | PCM.PROC ---
Procedures Attestation:: I certify that I have explained the specified Operation(s) or Procedure(s), risks, benefits and reasonable alternatives to the Patient and/or other person responsible. The opportunity was given to ask questions and all questions answered - Central Line Placement Left Internal Jugular Triple Lumen Catheter Aseptic technique was employed throughout the procedure: Hand Hygiene done prior to procedure, Full sterile barriers (mask, hair cover, sterile gown, sterile g loves), Full body sterile drape, Chloraprep Antiseptic: 30 second prep for IJ or SC sites CVP Time Out Performed: Yes Pt. Placed on Pulse Ox Monitor: Yes Central Line Prep: Chlorhexidine-Alcohol Combination Local Anesthesia Used: Lidocaine 1% Amount of Anesthesia Used (mls): 2 Ultrasound Used for Placement: Yes Central Line Lumen Inserted: triple Central Line Length: 20 cm Post Procedure: Sutured in Place, Good Blood Return, All Ports Aspirated, Flushed, Capped, Sterile Dressing Applied Secured by: Suture Post procedure dressing: Clear vapor permeable, Chlorhexidine disc (Biopatch) Post Procedure X-Ray: Yes Patient Tolerated Procedure: Well Immediate Complications: None
[2018-04-13] MEDS: Silver Sulfadiazine 1% Cream (20 gm) TOP SCH ×2 (10:24→17:02)
[2018-04-13] MEDS: Bacitracin Ointment 30 GM TUBE TOP SCH ×2 (10:25→17:03)
--- NOTE | 2018-04-13 10:29 | CP.CCUPN ---
<Margi Valenzuela - Last Filed: 04/13/18 10:27> CCU Subjective - Physician Review Events Since Last Encounter (Free Text): 04/13/18 10:29 patient was made DNR/DNI overnight. Subjective (Free Text): PGY-1 Critical Care Progress Note for Dr. Amador's service Patient seen and examined at bedside. Patient had no complaints today. Patient asked when her surgery was scheduled for today. Patient's daughter was at bedside. Granulator Tender and General Surgeon spoke with patient daughter about poor prognosis if patient goes for surgery. It was discussed that patient may not survive surgery due to her comorbid conditions. Palliative also spoke with patient daughter about goals of care. Hospice eval pending. Patient denies fevers, chills, chest pain, sob, n/v, constipation or diarrhea, and dysuria. Critical Care Time Spent (in minutes): 35 CCU Objective - Vital Signs / Intake & Output Intake and Output (Last 8hrs): Intake & Output 04/12/18 04/13/18 04/13/18 22:59 06:59 14:59 Intake Total 315.0 704.0 37.5 Output Total 2600 105 Balance -2285.0 599.0 37.5 Weight 232 lb Intake: IV 254 Intake, IV Amount 215.0 450.0 37.5 Left Distal Port Internal 150 Jugular Left Proximal Port 115.0 300.0 37.5 Internal Jugular Right arm mid line 100 0 Oral 100 Output: Urine 2600 105 Urethral ([place]) 1900 105 Urine, Voided 700 Other: # Voids Urine, Voided 1 # Bowel Movements 0 - Physical Exam Head: Positive for: Atraumatic, Normocephalic, Other (central line in left IJ) Pupils: Positive for: PERRL Extroacular Muscles: Positive for: EOMI Conjunctiva: Positive for: Normal Mouth: Positive for: Dry Neck: Positive for: Normal Range of Motion. Negative for: JVD, Lymphadenopathy Respiratory/Chest: Positive for: Good Air Exchange, Decreased Breath Sounds. Negative for: Accessory Muscle Use, Wheezes, Tachypneic Cardiovascular: Positive for: Regular Rate and Rhythm, Normal S1, S2. Negative for: Murmurs, Irregular Rhythm Abdomen: Positive for: Normal Bowel Sounds, Other (umbilical hernia). Negative for: Tenderness, Distention, Peritoneal Signs, Rebound, Guarding Genitourinary/Pelvic Exam: Positive for: Other (D[place] in place for strict Is/Os) Upper Extremity: Positive for: Normal Inspection, Edema. Negative for: Cyanosis Lower Extremity: Positive for: Normal Inspection, Edema Neurological: Positive for: GCS=15 Skin: Positive for: Dry, Normal Color, Other (chest tube in posterior left back, right foot ulcer, and sacral unstageable ulcer). Negative for: Diaphoretic Psychiatric: Positive for: Alert, Oriented x 3 - Medications Active Medications: Active Medications Generic Name Dose Route Start Last Admin Trade Name Freq PRN Reason Stop Dose Admin Acetaminophen 650 mg 03/23/18 15:59 04/02/18 04:36 Tylenol 325mg Tab PO 650 mg Q6 PRN Administration Fever >100.4 F Albuterol/Ipratropium 3 ml 04/02/18 14:00 04/13/18 09:06 Duoneb 3 Mg/0.5 Mg (3 Ml) Ud INH Not Given RQ6 KEV Amiodarone HCl 200 mg 03/23/18 16:45 04/12/18 10:45 Cordarone PO Not Given DAILY KEV Apixaban 5 mg 03/23/18 18:00 04/11/18 17:28 Eliquis PO 5 mg BID KEV Administration Ascorbic Acid 500 mg 04/02/18 10:00 04/12/18 17:03 Vitamin C 500 Mg Tab PO Not Given BID KEV Bacitracin 0 gm 04/01/18 18:00 04/13/18 10:25 Bacitracin TOP 1 applic BID KEV Administration Diltiazem HCl 30 mg 04/10/18 14:00 04/13/18 05:46 Cardizem PO 30 mg Q8 KEV Administration Fluconazole 50 mls @ 100 mls/hr 03/27/18 10:00 04/12/18 10:44 Diflucan Iv 100 Mg/50 Ml Ns IVPB 100 mls/hr DAILY KEV Administration Protocol Cefepime HCl 1 gm in 50 mls @ 100 mls/hr 04/01/18 16:30 04/13/18 03:37 Maxipime Iv 1 Gm Premix IVPB 100 mls/hr Q12H KEV Administration Protocol Piperacillin Sod/Tazobactam Sod 3.375 gm in 50 mls @ 100 mls/hr 04/12/18 18:00 04/13/18 05:47 Zosyn 3.375 Gm Iv Premix IVPB 100 mls/hr Q6H KEV Administration Protocol Norepinephrine Bitartrate 4 mg 254 mls @ 15.24 mls/hr 04/12/18 18:52 04/13/18 02:04 / Dextrose IV 9.84 mcg/min .[id number] PRN 37.5 mls/hr TITRATE PER MD ORDER Administration Protocol 4 MCG/MIN Insulin Glargine 5 unit 04/11/18 22:00 04/12/18 22:48 Lantus SC 5 units HS KEV Administration Insulin Human Regular 6 unit 04/11/18 11:30 04/12/18 22:46 Novolin R SC Not Given ACHS KEV Lactulose 20 gm 03/30/18 19:13 04/12/18 10:21 Enulose PO 20 gm HS PRN Administration Constipation Multivitamins/Vitamin C 5 ml 04/02/18 10:00 04/12/18 10:47 Multi-Delyn Liquid PO 5 ml DAILY KEV Administration Nystatin 1 applic 03/23/18 18:00 04/13/18 10:25 Nystop Topical Powder TOP 1 applic BID KEV Administration Pantoprazole Sodium 40 mg 03/27/18 10:00 04/12/18 10:48 Protonix Susp PO 40 mg DAILY KEV Administration Silver Sulfadiazine 0 ea 03/26/18 10:00 04/13/18 10:24 Silvadene 1% 20 Gm TOP 1 applic BID KEV Administration Zinc Sulfate 220 mg 04/02/18 10:00 04/12/18 10:50 Zinc Sulfate 220 Mg Cap PO 220 mg DAILY KEV Administration - Patient Studies Lab Studies: Lab Studies 04/13/18 04/13/18 04/13/18 Range/Units 06:10 06:10 06:10 WBC 18.5 H D (4.8-10.8) K/uL RBC 4.61 (3.80-5.20) Mil/uL Hgb 12.2 (11.0-16.0) g/dL Hct 39.9 (34.0-47.0) % MCV 86.7 (81.0-99.0) fL MCH 26.5 L (27.0-31.0) pg MCHC 30.6 L (33.0-37.0) g/dL RDW 26.5 H (11.5-14.5) % Plt Count 137 (130-400) K/uL MPV 10.9 (7.2-11.7) fL PT 23.1 H (9.7-12.2) SECONDS INR 2.1 APTT 37 H (21-34) SECONDS Puncture Site pCO2 (35-45) mm/Hg pO2 (80-100) mm/Hg HCO3 (21-28) mmol/L ABG pH (7.35-7.45) ABG Total CO2 (22-28) mmol/L ABG O2 Saturation (95-98) % ABG Base Excess (-2.0-3.0) mmol/L Pawel Test ABG Potassium (3.6-5.2) mmol/L A-a O2 Difference mm/Hg Respiratory Index Sodium 135 (132-148) mmol/l Chloride 98 (98-107) mmol/L Glucose (65-105) mg/dl Lactate (0.7-2.1) mmol/L FiO2 % Potassium 4.3 (3.6-5.2) mmol/L Carbon Dioxide 29 (22-30) mmol/L Anion Gap 12 (10-20) BUN 58 H (7-17) mg/dL Creatinine 0.8 (0.7-1.2) mg/dL Est GFR ( Amer) > 60 Est GFR (Non-Af Amer) > 60 POC Glucose (mg/dL) (65-110) mg/dL Random Glucose 100 (65-105) mg/dL Lactic Acid (0.7-2.1) mmol/L Calcium 8.1 L (8.6-10.4) mg/dl Phosphorus 3.8 (2.5-4.5) mg/dL Magnesium 2.4 H (1.6-2.3) mg/dL Total Bilirubin 1.4 H (0.2-1.3) mg/dL AST 15 (14-36) U/L ALT 25 (9-52) U/L Alkaline Phosphatase 49 (38-126) U/L Total Protein 4.7 L (6.3-8.3) g/dL Albumin 2.3 L (3.5-5.0) g/dL Globulin 2.3 (2.2-3.9) gm/dL Albumin/Globulin Ratio 1.0 (1.0-2.1) Arterial Blood Potassium (3.6-5.2) mmol/L 04/13/18 04/12/18 04/12/18 Range/Units 05:44 21:30 21:30 WBC (4.8-10.8) K/uL RBC (3.80-5.20) Mil/uL Hgb (11.0-16.0) g/dL Hct (34.0-47.0) % MCV (81.0-99.0) fL MCH (27.0-31.0) pg MCHC (33.0-37.0) g/dL RDW (11.5-14.5) % Plt Count (130-400) K/uL MPV (7.2-11.7) fL PT (9.7-12.2) SECONDS INR APTT (21-34) SECONDS Puncture Site pCO2 (35-45) mm/Hg pO2 (80-100) mm/Hg HCO3 (21-28) mmol/L ABG pH (7.35-7.45) ABG Total CO2 (22-28) mmol/L ABG O2 Saturation (95-98) % ABG Base Excess (-2.0-3.0) mmol/L Pawel Test ABG Potassium (3.6-5.2) mmol/L A-a O2 Difference mm/Hg Respiratory Index Sodium 134 (132-148) mmol/l Chloride 97 L (98-107) mmol/L Glucose (65-105) mg/dl Lactate (0.7-2.1) mmol/L FiO2 % Potassium 4.1 (3.6-5.2) mmol/L Carbon Dioxide 34 H (22-30) mmol/L Anion Gap 8 L (10-20) BUN 54 H (7-17) mg/dL Creatinine 0.8 (0.7-1.2) mg/dL Est GFR ( Amer) > 60 Est GFR (Non-Af Amer) > 60 POC Glucose (mg/dL) 206 H (65-110) mg/dL Random Glucose 111 H D (65-105) mg/dL Lactic Acid 1.9 (0.7-2.1) mmol/L Calcium 8.2 L (8.6-10.4) mg/dl Phosphorus 3.3 (2.5-4.5) mg/dL Magnesium 2.3 (1.6-2.3) mg/dL Total Bilirubin 1.6 H (0.2-1.3) mg/dL AST 14 D (14-36) U/L ALT 23 (9-52) U/L Alkaline Phosphatase 47 (38-126) U/L Total Protein 4.7 L (6.3-8.3) g/dL Albumin 2.3 L (3.5-5.0) g/dL Globulin 2.4 (2.2-3.9) gm/dL Albumin/Globulin Ratio 1.0 (1.0-2.1) Arterial Blood Potassium (3.6-5.2) mmol/L 04/12/18 04/12/18 04/12/18 Range/Units 21:24 16:56 16:31 WBC (4.8-10.8) K/uL RBC (3.80-5.20) Mil/uL Hgb (11.0-16.0) g/dL Hct (34.0-47.0) % MCV (81.0-99.0) fL MCH (27.0-31.0) pg MCHC (33.0-37.0) g/dL RDW (11.5-14.5) % Plt Count (130-400) K/uL MPV (7.2-11.7) fL PT (9.7-12.2) SECONDS INR APTT (21-34) SECONDS Puncture Site Rra pCO2 45 (35-45) mm/Hg pO2 81 (80-100) mm/Hg HCO3 31.1 H (21-28) mmol/L ABG pH 7.47 H (7.35-7.45) ABG Total CO2 34.2 H (22-28) mmol/L ABG O2 Saturation 97.5 (95-98) % ABG Base Excess 8.0 H (-2.0-3.0) mmol/L Pawel Test Na ABG Potassium 3.8 (3.6-5.2) mmol/L A-a O2 Difference 184.0 mm/Hg Respiratory Index 2.3 Sodium 137.0 (132-148) mmol/l Chloride 104.0 (98-107) mmol/L Glucose 71 (65-105) mg/dl Lactate 1.7 (0.7-2.1) mmol/L FiO2 45.0 % Potassium (3.6-5.2) mmol/L Carbon Dioxide (22-30) mmol/L Anion Gap (10-20) BUN (7-17) mg/dL Creatinine (0.7-1.2) mg/dL Est GFR ( Amer) Est GFR (Non-Af Amer) POC Glucose (mg/dL) 134 H 80 (65-110) mg/dL Random Glucose (65-105) mg/dL Lactic Acid (0.7-2.1) mmol/L Calcium (8.6-10.4) mg/dl Phosphorus (2.5-4.5) mg/dL Magnesium (1.6-2.3) mg/dL Total Bilirubin (0.2-1.3) mg/dL AST (14-36) U/L ALT (9-52) U/L Alkaline Phosphatase (38-126) U/L Total Protein (6.3-8.3) g/dL Albumin (3.5-5.0) g/dL Globulin (2.2-3.9) gm/dL Albumin/Globulin Ratio (1.0-2.1) Arterial Blood Potassium 3.8 (3.6-5.2) mmol/L 04/12/18 04/12/18 Range/Units 11:22 07:28 WBC (4.8-10.8) K/uL RBC (3.80-5.20) Mil/uL Hgb (11.0-16.0) g/dL Hct (34.0-47.0) % MCV (81.0-99.0) fL MCH (27.0-31.0) pg MCHC (33.0-37.0) g/dL RDW (11.5-14.5) % Plt Count (130-400) K/uL MPV (7.2-11.7) fL PT (9.7-12.2) SECONDS INR APTT (21-34) SECONDS Puncture Site pCO2 (35-45) mm/Hg pO2 (80-100) mm/Hg HCO3 (21-28) mmol/L ABG pH (7.35-7.45) ABG Total CO2 (22-28) mmol/L ABG O2 Saturation (95-98) % ABG Base Excess (-2.0-3.0) mmol/L Pawel Test ABG Potassium (3.6-5.2) mmol/L A-a O2 Difference mm/Hg Respiratory Index Sodium (132-148) mmol/l Chloride (98-107) mmol/L Glucose (65-105) mg/dl Lactate (0.7-2.1) mmol/L FiO2 % Potassium (3.6-5.2) mmol/L Carbon Dioxide (22-30) mmol/L Anion Gap (10-20) BUN (7-17) mg/dL Creatinine (0.7-1.2) mg/dL Est GFR ( Amer) Est GFR (Non-Af Amer) POC Glucose (mg/dL) 117 H 155 H (65-110) mg/dL Random Glucose (65-105) mg/dL Lactic Acid (0.7-2.1) mmol/L Calcium (8.6-10.4) mg/dl Phosphorus (2.5-4.5) mg/dL Magnesium (1.6-2.3) mg/dL Total Bilirubin (0.2-1.3) mg/dL AST (14-36) U/L ALT (9-52) U/L Alkaline Phosphatase (38-126) U/L Total Protein (6.3-8.3) g/dL Albumin (3.5-5.0) g/dL Globulin (2.2-3.9) gm/dL Albumin/Globulin Ratio (1.0-2.1) Arterial Blood Potassium (3.6-5.2) mmol/L Laboratory Results - last 24 hr 04/12/18 04/12/18 04/12/18 07:28 11:22 16:31 WBC RBC Hgb Hct MCV MCH MCHC RDW Plt Count MPV PT INR APTT Puncture Site pCO2 pO2 HCO3 ABG pH ABG Total CO2 ABG O2 Saturation ABG Base Excess Pawel Test ABG Potassium A-a O2 Difference Respiratory Index Sodium Chloride Glucose Lactate FiO2 Potassium Carbon Dioxide Anion Gap BUN Creatinine Est GFR ( Amer) Est GFR (Non-Af Amer) POC Glucose (mg/dL) 155 H 117 H 80 Random Glucose Lactic Acid Calcium Phosphorus Magnesium Total Bilirubin AST ALT Alkaline Phosphatase Total Protein Albumin Globulin Albumin/Globulin Ratio Arterial Blood Potassium 04/12/18 04/12/18 04/12/18 16:56 21:24 21:30 WBC RBC Hgb Hct MCV MCH MCHC RDW Plt Count MPV PT INR APTT Puncture Site Rra pCO2 45 pO2 81 HCO3 31.1 H ABG pH 7.47 H ABG Total CO2 34.2 H ABG O2 Saturation 97.5 ABG Base Excess 8.0 H Pawel Test Na ABG Potassium 3.8 A-a O2 Difference 184.0 Respiratory Index 2.3 Sodium 137.0 134 Chloride 104.0 97 L Glucose 71 Lactate 1.7 FiO2 45.0 Potassium 4.1 Carbon Dioxide 34 H Anion Gap 8 L BUN 54 H Creatinine 0.8 Est GFR ( Amer) > 60 Est GFR (Non-Af Amer) > 60 POC Glucose (mg/dL) 134 H Random Glucose 111 H D Lactic Acid Calcium 8.2 L Phosphorus 3.3 Magnesium 2.3 Total Bilirubin 1.6 H AST 14 D ALT 23 Alkaline Phosphatase 47 Total Protein 4.7 L Albumin 2.3 L Globulin 2.4 Albumin/Globulin Ratio 1.0 Arterial Blood Potassium 3.8 04/12/18 04/13/18 04/13/18 21:30 05:44 06:10 WBC RBC Hgb Hct MCV MCH MCHC RDW Plt Count MPV PT 23.1 H INR 2.1 APTT 37 H Puncture Site pCO2 pO2 HCO3 ABG pH ABG Total CO2 ABG O2 Saturation ABG Base Excess Pawel Test ABG Potassium A-a O2 Difference Respiratory Index Sodium Chloride Glucose Lactate FiO2 Potassium Carbon Dioxide Anion Gap BUN Creatinine Est GFR ( Amer) Est GFR (Non-Af Amer) POC Glucose (mg/dL) 206 H Random Glucose Lactic Acid 1.9 Calcium Phosphorus Magnesium Total Bilirubin AST ALT Alkaline Phosphatase Total Protein Albumin Globulin Albumin/Globulin Ratio Arterial Blood Potassium 04/13/18 04/13/18 06:10 06:10 WBC 18.5 H D RBC 4.61 Hgb 12.2 Hct 39.9 MCV 86.7 MCH 26.5 L MCHC 30.6 L RDW 26.5 H Plt Count 137 MPV 10.9 PT INR APTT Puncture Site pCO2 pO2 HCO3 ABG pH ABG Total CO2 ABG O2 Saturation ABG Base Excess Pawel Test ABG Potassium A-a O2 Difference Respiratory Index Sodium 135 Chloride 98 Glucose Lactate FiO2 Potassium 4.3 Carbon Dioxide 29 Anion Gap 12 BUN 58 H Creatinine 0.8 Est GFR ( Amer) > 60 Est GFR (Non-Af Amer) > 60 POC Glucose (mg/dL) Random Glucose 100 Lactic Acid Calcium 8.1 L Phosphorus 3.8 Magnesium 2.4 H Total Bilirubin 1.4 H AST 15 ALT 25 Alkaline Phosphatase 49 Total Protein 4.7 L Albumin 2.3 L Globulin 2.3 Albumin/Globulin Ratio 1.0 Arterial Blood Potassium Radiology Impressions: Radiology Impressions Abdomen/Pelvis CT 04/12/18 11:27 IMPRESSION: Abdominal free air raises concern for perforated viscus. Correlate clinically. Fat, fluid, and air within a left ventral abdominal hernia; hernia mouth measures approximately 2.2 cm. Diffuse soft tissue edema/anasarca. Severe fecal retention throughout the colon with suspected impaction at the rectosigmoid colon. Cholelithiasis. Suspect soft tissue or sludge within the gallbladder fossa. Moderate to large right-sided pleural effusion and associated compressive consolidation. Trace left effusion and mild left basilar atelectasis/pneumonia Cardiomegaly. Dense coronary artery calcifications. Small hiatal hernia/distal esophageal wall thickening. Additional incidental findings as above. Emergent findings discussed with the patient's RN Alona on 04/12/18 at 3:02 p.m. Chest X-Ray 04/12/18 16:19 IMPRESSION: In situ NGT and left-sided chest tube catheter as described. Persistent large right-sided effusion with consolidation changes right mid to lower lung field. Mild left basilar atelectasis and/or infiltrate. Mild left basilar atelectasis and or infiltrate with small residual left-sided effusion note that poor inspiration exacerbates all of these findings. Chest X-Ray 04/12/18 18:05 IMPRESSION: No adverse findings following TLC catheter placement. Fingerstick Blood Sugar Results: 134 Review of Systems - Review of Systems Review of Systems: 12 point ROS obtained and noted as in HPI Critical Care Progress Note - Prophylaxis GI Prophylaxis GI: PPI - Nutrition Nutrition: Nutrition Category Date Time Status NPO Diet [DIET] Diets 04/12/18 Breakfast Active Assessment/Plan - Assessment and Plan (Free Text) Assessment: Patient is a 82 yo female w/ PMH of CHF, HTN, Afib on AC admitted for bilateral pleural effusions and pneumonia. Was breathing on bipap in ED however after transfer to ICU, patient decompensated only responding to painful stimuli. GCS of 6. Patient was intubated. Patient became hypotensive so central line was placed for levophed drip. s/p thoracentesis with 1100 fluid removed. Home AC restarted. Precedex and levophed dc'ed. Patient extubated and doing well. s/p chest tube insertion on 04/07/18 with 1600 ml drained day 1. Repeat Cxray shows bilateral pleural effusions. May need chest tube for prolonged amount of days for recurrent effusion Neuro Awake, Alerted, Oriented No acute issues Pulm Duoneb Cefepime/Fluconazole (start dates 04/01 and 03/27 respectively); Will discuss with ID for possible dc of abx in setting of negative cx, afebrile, and no wbc s/p thoracentesis 1100ml fluid drained- right s/p chest tube insertion on 04/07/18 with 1600 drained first day then clamped; further management as per pumonology for when to remove Continue aggressive pulm toilet Patient was made DNR/DNI overnight; Palliative care consult and Hospice care consult was placed; Continue medical management as per pulm for effusion CV Amiodarone Cardizem Eliquis-held for thoracentesis or chest tube in AM GI CT abdomen/pelvis shows free air, surgery was consulted, spoke with patient family stated patient was poor surgical candidate and would likely not survive OR, continue medical management Protonix; Lactulose Prealbumin normal As per dietary ensure will be three times a day Heme Elqiuis-held no acute issues Endo ACHS; Glargine; Insulin regular Renal Zinc/Multivitamins/Ascorbic acid Derm Podiatry following for foot ulcer on right- Nystatin, multipodus boots Wound care for unstagable sacral ulcer and buttock ulcer- recommendations are continued as per wound care- bacitracin/medihoney Continue to monitor ID Cefepime/Fluconazole (completed 7 day course of azithromycin) + trach asp for yeast species; + urine cx for yeast species new figueredo cx negative GI ppx: Protonix DVT ppx: Elquis 5mg po bid- held Disposition: Continue chest tube management as per pulm, Continue medical management as per ICU, Poor prognosis, Hospice consulted Margi Valenzuela PGY-1 Case d/w Dr. Amador <Zaheer Amador S - Last Filed: 04/13/18 16:32> CCU Objective - Vital Signs / Intake & Output Vital Signs (Last 4 hours): Vital Signs Pulse Resp BP Pulse Ox 04/13/18 16:00 90 22 113/83 100 04/13/18 15:06 90 13 113/83 100 04/13/18 14:55 99 H 16 109/76 100 04/13/18 13:06 96 H 39 H 128/80 04/13/18 12:50 98 H 18 118/85 91 L Intake and Output (Last 8hrs): Intake & Output 04/13/18 04/13/18 04/13/18 06:59 14:59 22:59 Intake Total 704.0 495.5 Output Total 105 Balance 599.0 495.5 Weight 232 lb Intake: IV 254 458 Intake, IV Amount 450.0 37.5 Left Distal Port Internal 150 Jugular Left Proximal Port 300.0 37.5 Internal Jugular Right arm mid line 0 Output: Urine 105 Urethral ([place]) 105 - Medications Active Medications: Active Medications Generic Name Dose Route Start Last Admin Trade Name Freq PRN Reason Stop Dose Admin Acetaminophen 650 mg 03/23/18 15:59 04/02/18 04:36 Tylenol 325mg Tab PO 650 mg Q6 PRN Administration Fever >100.4 F Albuterol/Ipratropium 3 ml 04/02/18 14:00 04/13/18 09:06 Duoneb 3 Mg/0.5 Mg (3 Ml) Ud INH Not Given RQ6 KEV Amiodarone HCl 200 mg 03/23/18 16:45 04/13/18 10:50 Cordarone PO 200 mg DAILY KEV Administration Apixaban 5 mg 03/23/18 18:00 04/11/18 17:28 Eliquis PO 5 mg BID KEV Administration Ascorbic Acid 500 mg 04/02/18 10:00 04/13/18 10:50 Vitamin C 500 Mg Tab PO 500 mg BID KEV Administration Bacitracin 0 gm 04/01/18 18:00 04/13/18 10:25 Bacitracin TOP 1 applic BID KEV Administration Fluconazole 50 mls @ 100 mls/hr 03/27/18 10:00 04/13/18 10:52 Diflucan Iv 100 Mg/50 Ml Ns IVPB 100 mls/hr DAILY KEV Administration Protocol Cefepime HCl 1 gm in 50 mls @ 100 mls/hr 04/01/18 16:30 04/13/18 03:37 Maxipime Iv 1 Gm Premix IVPB 100 mls/hr Q12H KEV Administration Protocol Piperacillin Sod/Tazobactam Sod 3.375 gm in 50 mls @ 100 mls/hr 04/12/18 18:00 04/13/18 05:47 Zosyn 3.375 Gm Iv Premix IVPB 100 mls/hr Q6H KEV Administration Protocol Norepinephrine Bitartrate 4 mg 254 mls @ 15.24 mls/hr 04/12/18 18:52 04/13/18 14:00 / Dextrose IV 8 mcg/min .[id number] PRN 30.48 mls/hr TITRATE PER MD ORDER Titration Protocol 4 MCG/MIN Insulin Glargine 5 unit 04/11/18 22:00 04/12/18 22:48 Lantus SC 5 units HS KEV Administration Insulin Human Regular 6 unit 04/11/18 11:30 04/13/18 11:37 Novolin R SC Not Given ACHS KEV Lactulose 20 gm 03/30/18 19:13 04/12/18 10:21 Enulose PO 20 gm HS PRN Administration Constipation Multivitamins/Vitamin C 5 ml 04/02/18 10:00 04/13/18 11:35 Multi-Delyn Liquid PO 5 ml DAILY KEV Administration Nystatin 1 applic 03/23/18 18:00 04/13/18 10:25 Nystop Topical Powder TOP 1 applic BID KEV Administration Pantoprazole Sodium 40 mg 03/27/18 10:00 04/13/18 10:39 Protonix Susp PO 40 mg DAILY KEV Administration Silver Sulfadiazine 0 ea 03/26/18 10:00 04/13/18 10:24 Silvadene 1% 20 Gm TOP 1 applic BID KEV Administration Zinc Sulfate 220 mg 04/02/18 10:00 04/13/18 10:50 Zinc Sulfate 220 Mg Cap PO 220 mg DAILY KEV Administration - Patient Studies Lab Studies: Lab Studies 04/13/18 04/13/18 04/13/18 Range/Units 16:12 11:19 07:14 WBC (4.8-10.8) K/uL RBC (3.80-5.20) Mil/uL Hgb (11.0-16.0) g/dL Hct (34.0-47.0) % MCV (81.0-99.0) fL MCH (27.0-31.0) pg MCHC (33.0-37.0) g/dL RDW (11.5-14.5) % Plt Count (130-400) K/uL MPV (7.2-11.7) fL PT (9.7-12.2) SECONDS INR APTT (21-34) SECONDS Puncture Site pCO2 (35-45) mm/Hg pO2 (80-100) mm/Hg HCO3 (21-28) mmol/L ABG pH (7.35-7.45) ABG Total CO2 (22-28) mmol/L ABG O2 Saturation (95-98) % ABG Base Excess (-2.0-3.0) mmol/L Pawel Test ABG Potassium (3.6-5.2) mmol/L A-a O2 Difference mm/Hg Respiratory Index Sodium (132-148) mmol/l Chloride (98-107) mmol/L Glucose (65-105) mg/dl Lactate (0.7-2.1) mmol/L FiO2 % Potassium (3.6-5.2) mmol/L Carbon Dioxide (22-30) mmol/L Anion Gap (10-20) BUN (7-17) mg/dL Creatinine (0.7-1.2) mg/dL Est GFR ( Amer) Est GFR (Non-Af Amer) POC Glucose (mg/dL) 137 H 124 H 127 H (65-110) mg/dL Random Glucose (65-105) mg/dL Lactic Acid (0.7-2.1) mmol/L Calcium (8.6-10.4) mg/dl Phosphorus (2.5-4.5) mg/dL Magnesium (1.6-2.3) mg/dL Total Bilirubin (0.2-1.3) mg/dL AST (14-36) U/L ALT (9-52) U/L Alkaline Phosphatase (38-126) U/L Total Protein (6.3-8.3) g/dL Albumin (3.5-5.0) g/dL Globulin (2.2-3.9) gm/dL Albumin/Globulin Ratio (1.0-2.1) Arterial Blood Potassium (3.6-5.2) mmol/L 04/13/18 04/13/18 04/13/18 Range/Units 06:10 06:10 06:10 WBC 18.5 H D (4.8-10.8) K/uL RBC 4.61 (3.80-5.20) Mil/uL Hgb 12.2 (11.0-16.0) g/dL Hct 39.9 (34.0-47.0) % MCV 86.7 (81.0-99.0) fL MCH 26.5 L (27.0-31.0) pg MCHC 30.6 L (33.0-37.0) g/dL RDW 26.5 H (11.5-14.5) % Plt Count 137 (130-400) K/uL MPV 10.9 (7.2-11.7) fL PT 23.1 H (9.7-12.2) SECONDS INR 2.1 APTT 37 H (21-34) SECONDS Puncture Site pCO2 (35-45) mm/Hg pO2 (80-100) mm/Hg HCO3 (21-28) mmol/L ABG pH (7.35-7.45) ABG Total CO2 (22-28) mmol/L ABG O2 Saturation (95-98) % ABG Base Excess (-2.0-3.0) mmol/L Pawel Test ABG Potassium (3.6-5.2) mmol/L A-a O2 Difference mm/Hg Respiratory Index Sodium 135 (132-148) mmol/l Chloride 98 (98-107) mmol/L Glucose (65-105) mg/dl Lactate (0.7-2.1) mmol/L FiO2 % Potassium 4.3 (3.6-5.2) mmol/L Carbon Dioxide 29 (22-30) mmol/L Anion Gap 12 (10-20) BUN 58 H (7-17) mg/dL Creatinine 0.8 (0.7-1.2) mg/dL Est GFR ( Amer) > 60 Est GFR (Non-Af Amer) > 60 POC Glucose (mg/dL) (65-110) mg/dL Random Glucose 100 (65-105) mg/dL Lactic Acid (0.7-2.1) mmol/L Calcium 8.1 L (8.6-10.4) mg/dl Phosphorus 3.8 (2.5-4.5) mg/dL Magnesium 2.4 H (1.6-2.3) mg/dL Total Bilirubin 1.4 H (0.2-1.3) mg/dL AST 15 (14-36) U/L ALT 25 (9-52) U/L Alkaline Phosphatase 49 (38-126) U/L Total Protein 4.7 L (6.3-8.3) g/dL Albumin 2.3 L (3.5-5.0) g/dL Globulin 2.3 (2.2-3.9) gm/dL Albumin/Globulin Ratio 1.0 (1.0-2.1) Arterial Blood Potassium (3.6-5.2) mmol/L 04/13/18 04/12/18 04/12/18 Range/Units 05:44 21:30 21:30 WBC (4.8-10.8) K/uL RBC (3.80-5.20) Mil/uL Hgb (11.0-16.0) g/dL Hct (34.0-47.0) % MCV (81.0-99.0) fL MCH (27.0-31.0) pg MCHC (33.0-37.0) g/dL RDW (11.5-14.5) % Plt Count (130-400) K/uL MPV (7.2-11.7) fL PT (9.7-12.2) SECONDS INR APTT (21-34) SECONDS Puncture Site pCO2 (35-45) mm/Hg pO2 (80-100) mm/Hg HCO3 (21-28) mmol/L ABG pH (7.35-7.45) ABG Total CO2 (22-28) mmol/L ABG O2 Saturation (95-98) % ABG Base Excess (-2.0-3.0) mmol/L Pawel Test ABG Potassium (3.6-5.2) mmol/L A-a O2 Difference mm/Hg Respiratory Index Sodium 134 (132-148) mmol/l Chloride 97 L (98-107) mmol/L Glucose (65-105) mg/dl Lactate (0.7-2.1) mmol/L FiO2 % Potassium 4.1 (3.6-5.2) mmol/L Carbon Dioxide 34 H (22-30) mmol/L Anion Gap 8 L (10-20) BUN 54 H (7-17) mg/dL Creatinine 0.8 (0.7-1.2) mg/dL Est GFR ( Amer) > 60 Est GFR (Non-Af Amer) > 60 POC Glucose (mg/dL) 206 H (65-110) mg/dL Random Glucose 111 H D (65-105) mg/dL Lactic Acid 1.9 (0.7-2.1) mmol/L Calcium 8.2 L (8.6-10.4) mg/dl Phosphorus 3.3 (2.5-4.5) mg/dL Magnesium 2.3 (1.6-2.3) mg/dL Total Bilirubin 1.6 H (0.2-1.3) mg/dL AST 14 D (14-36) U/L ALT 23 (9-52) U/L Alkaline Phosphatase 47 (38-126) U/L Total Protein 4.7 L (6.3-8.3) g/dL Albumin 2.3 L (3.5-5.0) g/dL Globulin 2.4 (2.2-3.9) gm/dL Albumin/Globulin Ratio 1.0 (1.0-2.1) Arterial Blood Potassium (3.6-5.2) mmol/L 04/12/18 04/12/18 04/12/18 Range/Units 21:24 16:56 16:31 WBC (4.8-10.8) K/uL RBC (3.80-5.20) Mil/uL Hgb (11.0-16.0) g/dL Hct (34.0-47.0) % MCV (81.0-99.0) fL MCH (27.0-31.0) pg MCHC (33.0-37.0) g/dL RDW (11.5-14.5) % Plt Count (130-400) K/uL MPV (7.2-11.7) fL PT (9.7-12.2) SECONDS INR APTT (21-34) SECONDS Puncture Site Rra pCO2 45 (35-45) mm/Hg pO2 81 (80-100) mm/Hg HCO3 31.1 H (21-28) mmol/L ABG pH 7.47 H (7.35-7.45) ABG Total CO2 34.2 H (22-28) mmol/L ABG O2 Saturation 97.5 (95-98) % ABG Base Excess 8.0 H (-2.0-3.0) mmol/L Pawel Test Na ABG Potassium 3.8 (3.6-5.2) mmol/L A-a O2 Difference 184.0 mm/Hg Respiratory Index 2.3 Sodium 137.0 (132-148) mmol/l Chloride 104.0 (98-107) mmol/L Glucose 71 (65-105) mg/dl Lactate 1.7 (0.7-2.1) mmol/L FiO2 45.0 % Potassium (3.6-5.2) mmol/L Carbon Dioxide (22-30) mmol/L Anion Gap (10-20) BUN (7-17) mg/dL Creatinine (0.7-1.2) mg/dL Est GFR ( Amer) Est GFR (Non-Af Amer) POC Glucose (mg/dL) 134 H 80 (65-110) mg/dL Random Glucose (65-105) mg/dL Lactic Acid (0.7-2.1) mmol/L Calcium (8.6-10.4) mg/dl Phosphorus (2.5-4.5) mg/dL Magnesium (1.6-2.3) mg/dL Total Bilirubin (0.2-1.3) mg/dL AST (14-36) U/L ALT (9-52) U/L Alkaline Phosphatase (38-126) U/L Total Protein (6.3-8.3) g/dL Albumin (3.5-5.0) g/dL Globulin (2.2-3.9) gm/dL Albumin/Globulin Ratio (1.0-2.1) Arterial Blood Potassium 3.8 (3.6-5.2) mmol/L Laboratory Results - last 24 hr 04/12/18 04/12/18 04/12/18 16:31 16:56 21:24 WBC RBC Hgb Hct MCV MCH MCHC RDW Plt Count MPV PT INR APTT Puncture Site Rra pCO2 45 pO2 81 HCO3 31.1 H ABG pH 7.47 H ABG Total CO2 34.2 H ABG O2 Saturation 97.5 ABG Base Excess 8.0 H Pawel Test Na ABG Potassium 3.8 A-a O2 Difference 184.0 Respiratory Index 2.3 Sodium 137.0 Chloride 104.0 Glucose 71 Lactate 1.7 FiO2 45.0 Potassium Carbon Dioxide Anion Gap BUN Creatinine Est GFR ( Amer) Est GFR (Non-Af Amer) POC Glucose (mg/dL) 80 134 H Random Glucose Lactic Acid Calcium Phosphorus Magnesium Total Bilirubin AST ALT Alkaline Phosphatase Total Protein Albumin Globulin Albumin/Globulin Ratio Arterial Blood Potassium 3.8 04/12/18 04/12/18 04/13/18 21:30 21:30 05:44 WBC RBC Hgb Hct MCV MCH MCHC RDW Plt Count MPV PT INR APTT Puncture Site pCO2 pO2 HCO3 ABG pH ABG Total CO2 ABG O2 Saturation ABG Base Excess Pawel Test ABG Potassium A-a O2 Difference Respiratory Index Sodium 134 Chloride 97 L Glucose Lactate FiO2 Potassium 4.1 Carbon Dioxide 34 H Anion Gap 8 L BUN 54 H Creatinine 0.8 Est GFR ( Amer) > 60 Est GFR (Non-Af Amer) > 60 POC Glucose (mg/dL) 206 H Random Glucose 111 H D Lactic Acid 1.9 Calcium 8.2 L Phosphorus 3.3 Magnesium 2.3 Total Bilirubin 1.6 H AST 14 D ALT 23 Alkaline Phosphatase 47 Total Protein 4.7 L Albumin 2.3 L Globulin 2.4 Albumin/Globulin Ratio 1.0 Arterial Blood Potassium 04/13/18 04/13/18 04/13/18 06:10 06:10 06:10 WBC 18.5 H D RBC 4.61 Hgb 12.2 Hct 39.9 MCV 86.7 MCH 26.5 L MCHC 30.6 L RDW 26.5 H Plt Count 137 MPV 10.9 PT 23.1 H INR 2.1 APTT 37 H Puncture Site pCO2 pO2 HCO3 ABG pH ABG Total CO2 ABG O2 Saturation ABG Base Excess Pwael Test ABG Potassium A-a O2 Difference Respiratory Index Sodium 135 Chloride 98 Glucose Lactate FiO2 Potassium 4.3 Carbon Dioxide 29 Anion Gap 12 BUN 58 H Creatinine 0.8 Est GFR ( Amer) > 60 Est GFR (Non-Af Amer) > 60 POC Glucose (mg/dL) Random Glucose 100 Lactic Acid Calcium 8.1 L Phosphorus 3.8 Magnesium 2.4 H Total Bilirubin 1.4 H AST 15 ALT 25 Alkaline Phosphatase 49 Total Protein 4.7 L Albumin 2.3 L Globulin 2.3 Albumin/Globulin Ratio 1.0 Arterial Blood Potassium 04/13/18 04/13/18 04/13/18 07:14 11:19 16:12 WBC RBC Hgb Hct MCV MCH MCHC RDW Plt Count MPV PT INR APTT Puncture Site pCO2 pO2 HCO3 ABG pH ABG Total CO2 ABG O2 Saturation ABG Base Excess Pawel Test ABG Potassium A-a O2 Difference Respiratory Index Sodium Chloride Glucose Lactate FiO2 Potassium Carbon Dioxide Anion Gap BUN Creatinine Est GFR ( Amer) Est GFR (Non-Af Amer) POC Glucose (mg/dL) 127 H 124 H 137 H Random Glucose Lactic Acid Calcium Phosphorus Magnesium Total Bilirubin AST ALT Alkaline Phosphatase Total Protein Albumin Globulin Albumin/Globulin Ratio Arterial Blood Potassium Radiology Impressions: Radiology Impressions Chest X-Ray 04/12/18 16:19 IMPRESSION: In situ NGT and left-sided chest tube catheter as described. Persistent large right-sided effusion with consolidation changes right mid to lower lung field. Mild left basilar atelectasis and/or infiltrate. Mild left basilar atelectasis and or infiltrate with small residual left-sided effusion note that poor inspiration exacerbates all of these findings. Chest X-Ray 04/12/18 18:05 IMPRESSION: No adverse findings following TLC catheter placement. Critical Care Progress Note - Nutrition Nutrition: Nutrition Category Date Time Status Heart Healthy Diet [DIET] Diets 04/13/18 Lunch Active Assessment/Plan (1) Acute respiratory failure Current Visit: No Status: Acute (2) Atrial fibrillation and flutter Current Visit: No Status: Acute (3) CHF (congestive heart failure) Current Visit: No Status: Acute (4) Pleural effusion Current Visit: Yes Status: Acute Attending/Attestation - Attestation I have personally seen and examined this patient.: Yes I have fully participated in the care of the patient.: Yes I have reviewed all pertinent clinical information: Yes Notes (Text): 04/13/18 16:31 Patient seen and examined in the intensive care unit. Previous events noted Patient DNR/DNI Seen by surgery for perforated viscus Patient high risk for surgery Case discussed with daughter at length Conservative treatment Continue ICU observation for now
[2018-04-13] MEDS: Pantoprazole 40 mg Susp UD PO SCH (10:39)
--- NOTE | 2018-04-13 10:48 | CP.PCM.PN ---
Subjective - Date & Time of Evaluation Date of Evaluation: 04/13/18 Time of Evaluation: 08:00 - Subjective Subjective: events noted free air in abd- ? perf diverticulum arousable nad Chest tube in place surgery on hold DNR / DNI Iv rx renewed poor prognosis Objective - Vital Signs/Intake and Output Vital Signs (last 24 hours): Temp Pulse Resp BP Pulse Ox 98.2 F 98 H 24 101/68 101 H 04/13/18 04:00 04/13/18 10:00 04/13/18 10:00 04/13/18 10:00 04/13/18 10:00 Intake and Output: 04/13/18 04/13/18 06:59 18:59 Intake Total 819.0 291.5 Output Total 2004 Balance -1186.0 291.5 - Medications Medications: Current Medications Acetaminophen (Tylenol 325mg Tab) 650 mg PO Q6 PRN PRN Reason: Fever >100.4 F Last Admin: 04/02/18 04:36 Dose: 650 mg Albuterol/Ipratropium (Duoneb 3 Mg/0.5 Mg (3 Ml) Ud) 3 ml INH RQ6 [facility] Last Admin: 04/13/18 09:06 Dose: Not Given Amiodarone HCl (Cordarone) 200 mg PO DAILY [facility] Last Admin: 04/12/18 10:45 Dose: Not Given Apixaban (Eliquis) 5 mg PO BID [facility] Last Admin: 04/11/18 17:28 Dose: 5 mg Ascorbic Acid (Vitamin C 500 Mg Tab) 500 mg PO BID [facility] Last Admin: 04/12/18 17:03 Dose: Not Given Bacitracin (Bacitracin) 0 gm TOP BID [facility] Last Admin: 04/13/18 10:25 Dose: 1 applic Diltiazem HCl (Cardizem) 30 mg PO Q8 [facility] Last Admin: 04/13/18 05:46 Dose: 30 mg Fluconazole (Diflucan Iv 100 Mg/50 Ml Ns) 50 mls @ 100 mls/hr IVPB DAILY [facility]; Protocol Last Admin: 04/12/18 10:44 Dose: 100 mls/hr Cefepime HCl (Maxipime Iv 1 Gm Premix) 1 gm in 50 mls @ 100 mls/hr IVPB Q12H [facility]; Protocol Last Admin: 04/13/18 03:37 Dose: 100 mls/hr Piperacillin Sod/Tazobactam Sod (Zosyn 3.375 Gm Iv Premix) 3.375 gm in 50 mls @ 100 mls/hr IVPB Q6H [facility]; Protocol Last Admin: 04/13/18 05:47 Dose: 100 mls/hr Norepinephrine Bitartrate 4 mg (/ Dextrose) 254 mls @ 15.24 mls/hr IV .[id number] PRN; Protocol PRN Reason: TITRATE PER MD ORDER Last Admin: 04/13/18 10:00 Dose: 9.84 mcg/min, 37.49 mls/hr Insulin Glargine (Lantus) 5 unit SC HS [facility] Last Admin: 04/12/18 22:48 Dose: 5 units Insulin Human Regular (Novolin R) 6 unit SC ACHS [facility] Last Admin: 04/12/18 22:46 Dose: Not Given Lactulose (Enulose) 20 gm PO HS PRN PRN Reason: Constipation Last Admin: 04/12/18 10:21 Dose: 20 gm Multivitamins/Vitamin C (Multi-Delyn Liquid) 5 ml PO DAILY [facility] Last Admin: 04/12/18 10:47 Dose: 5 ml Nystatin (Nystop Topical Powder) 1 applic TOP BID [facility] Last Admin: 04/13/18 10:25 Dose: 1 applic Pantoprazole Sodium (Protonix Susp) 40 mg PO DAILY [facility] Last Admin: 04/13/18 10:39 Dose: 40 mg Silver Sulfadiazine (Silvadene 1% 20 Gm) 0 ea TOP BID [facility] Last Admin: 04/13/18 10:24 Dose: 1 applic Zinc Sulfate (Zinc Sulfate 220 Mg Cap) 220 mg PO DAILY [facility] Last Admin: 04/12/18 10:50 Dose: 220 mg - Labs Labs: 04/13/18 06:10 04/13/18 06:10 PT 23.1 SECONDS (9.7-12.2) H 04/13/18 06:10 INR 2.1 04/13/18 06:10 APTT 37 SECONDS (21-34) H 04/13/18 06:10 - Constitutional Appears: Confused, Chronically Ill - Head Exam Head Exam: NORMOCEPHALIC - Eye Exam Eye Exam: absent: Scleral icterus - ENT Exam ENT Exam: Mucous Membranes Dry - Neck Exam Neck Exam: absent: Lymphadenopathy - Respiratory Exam Respiratory Exam: Decreased Breath Sounds - Cardiovascular Exam Cardiovascular Exam: REGULAR RHYTHM - GI/Abdominal Exam GI & Abdominal Exam: Distended, Tenderness, Diminished Bowel Sounds - Rectal Exam Rectal Exam: Deferred - Exam Exam: NORMAL INSPECTION - Extremities Exam Extremities Exam: absent: Pedal Edema - Back Exam Back Exam: absent: CVA tenderness (L), CVA tenderness (R) - Neurological Exam Neurological Exam: Altered - Psychiatric Exam Psychiatric exam: Depressed Assessment and Plan (1) Acute respiratory failure Status: Acute (2) Atrial fibrillation and flutter Status: Acute (3) CHF (congestive heart failure) Status: Acute (4) Pleural effusion Status: Acute - Assessment and Plan (Free Text) Assessment: free air in abd- ? perf diverticulum arousable nad Chest tube in place surgery on hold DNR / DNI Iv rx renewed poor prognosis
[2018-04-13] MEDS: Fluconazole IV 100mg/50 ml NS 50 ML IVPB SCH (10:52)
[2018-04-13] MEDS: Multiple Vitamins Oral Solution PO SCH (11:35)
--- NOTE | 2018-04-13 13:48 | CP.PCM.CON ---
History of Present Illness - History of Present Illness History of Present Illness: Palliative consult requested by Doctor Valenzuela for goals of care discussion Patient is a 82 yo female admitted from [facility] on 03/23/2018 with lethargy and SOB. Patient was placed on BiPap on the field. In ED patient was still drowsy. CT chest confirmed B/L pleural effusion. During this lengthy stay patient underwent multiple thoracentesis, was intubated for acute respiratory distress, extubated. Underlying pneumonia could not be completly R/O. Patient was treated with IV antibiotics. On 04/12/2018, patient complained of mild, epigastric pain. CT abdomen significant for free air. NGT in for decompression. Surgical consult called for. Patient seen as high risk for Sx and no interventions were advised. IV fluids for hydration and NPO. Palliative care was asked to assist and support patient's daughter during this very difficult time for them. PMH: sacral ulcers, obesity, CHF, HTN, A Fib, pleural effusions, thoracentesis Soc. Hx: Lives at home with daughter, has one son as well. Fam. Hx: denied Review of Systems - Review of Systems Systems not reviewed;Unavailable: Respiratory Distress Review of Systems: ROS unobtainable from patient due to respiratory distress and high flow O2 use. ROS obtained from nursing. Per nursing, patient remains in respiratory distress Past Patient History - Infectious Disease Hx of Infectious Diseases: None - Tetanus Immunizations Tetanus Immunization: Unknown - Past Medical History & Family History Past Medical History?: Yes Past Family History: Reviewed and not pertinent - Past Social History Smoking Status: Never Smoked Alcohol: None Drugs: Denies Home Situation {Lives}: [facility] - CARDIAC Hx Congestive Heart Failure: Yes - PULMONARY Hx Chronic Obstructive Pulmonary Disease (COPD): Yes - NEUROLOGICAL Hx Dementia: Yes - ENDOCRINE/METABOLIC Hx Endocrine Disorders: No - HEMATOLOGICAL/ONCOLOGICAL Hx Blood Disorders: No - INTEGUMENTARY Other/Comment: weeping edema, on bilateral lower ext - MUSCULOSKELETAL/RHEUMATOLOGICAL Hx Arthritis: Yes (R SH) - GASTROINTESTINAL Hx Gastrointestinal Disorders: No - GENITOURINARY/GYNECOLOGICAL Hx Genitourinary Disorders: No - PSYCHIATRIC Hx Substance Use: No - SURGICAL HISTORY Hx Surgeries: No - ANESTHESIA Hx Anesthesia: Yes Meds Allergies/Adverse Reactions: Allergies Allergy/AdvReac Type Severity Reaction Status Date / Time warfarin [From Coumadin] Allergy Verified 12/18/18 08:16 - Medications Medications: Current Medications Acetaminophen (Tylenol 325mg Tab) 650 mg PO Q6 PRN PRN Reason: Fever >100.4 F Last Admin: 04/02/18 04:36 Dose: 650 mg Albuterol/Ipratropium (Duoneb 3 Mg/0.5 Mg (3 Ml) Ud) 3 ml INH RQ6 [facility] Last Admin: 04/13/18 09:06 Dose: Not Given Amiodarone HCl (Cordarone) 200 mg PO DAILY [facility] Last Admin: 04/13/18 10:50 Dose: 200 mg Apixaban (Eliquis) 5 mg PO BID [facility] Last Admin: 04/11/18 17:28 Dose: 5 mg Ascorbic Acid (Vitamin C 500 Mg Tab) 500 mg PO BID [facility] Last Admin: 04/13/18 10:50 Dose: 500 mg Bacitracin (Bacitracin) 0 gm TOP BID [facility] Last Admin: 04/13/18 10:25 Dose: 1 applic Diltiazem HCl (Cardizem) 30 mg PO Q8 [facility] Last Admin: 04/13/18 05:46 Dose: 30 mg Fluconazole (Diflucan Iv 100 Mg/50 Ml Ns) 50 mls @ 100 mls/hr IVPB DAILY [facility]; Protocol Last Admin: 04/13/18 10:52 Dose: 100 mls/hr Cefepime HCl (Maxipime Iv 1 Gm Premix) 1 gm in 50 mls @ 100 mls/hr IVPB Q12H [facility]; Protocol Last Admin: 04/13/18 03:37 Dose: 100 mls/hr Piperacillin Sod/Tazobactam Sod (Zosyn 3.375 Gm Iv Premix) 3.375 gm in 50 mls @ 100 mls/hr IVPB Q6H [facility]; Protocol Last Admin: 04/13/18 05:47 Dose: 100 mls/hr Norepinephrine Bitartrate 4 mg (/ Dextrose) 254 mls @ 15.24 mls/hr IV .[id number] PRN; Protocol PRN Reason: TITRATE PER MD ORDER Last Admin: 04/13/18 10:00 Dose: 9.84 mcg/min, 37.49 mls/hr Insulin Glargine (Lantus) 5 unit SC [facility] Last Admin: 04/12/18 22:48 Dose: 5 units Insulin Human Regular (Novolin R) 6 unit SC ACHS [facility] Last Admin: 04/13/18 11:37 Dose: Not Given Lactulose (Enulose) 20 gm PO HS PRN PRN Reason: Constipation Last Admin: 04/12/18 10:21 Dose: 20 gm Multivitamins/Vitamin C (Multi-Delyn Liquid) 5 ml PO DAILY [facility] Last Admin: 04/13/18 11:35 Dose: 5 ml Nystatin (Nystop Topical Powder) 1 applic TOP BID [facility] Last Admin: 04/13/18 10:25 Dose: 1 applic Pantoprazole Sodium (Protonix Susp) 40 mg PO DAILY [facility] Last Admin: 04/13/18 10:39 Dose: 40 mg Silver Sulfadiazine (Silvadene 1% 20 Gm) 0 ea TOP BID [facility] Last Admin: 04/13/18 10:24 Dose: 1 applic Zinc Sulfate (Zinc Sulfate 220 Mg Cap) 220 mg PO DAILY [facility] Last Admin: 04/13/18 10:50 Dose: 220 mg Physical Exam - Constitutional Appears: In Acute Distress, Chronically Ill - Head Exam Head Exam: ATRAUMATIC, NORMAL INSPECTION, NORMOCEPHALIC - Eye Exam Eye Exam: EOMI, Normal appearance, PERRL Pupil Exam: NORMAL ACCOMODATION, PERRL - ENT Exam Additional comments: NGT - Neck Exam Neck exam: Positive for: Normal Inspection - Respiratory Exam Respiratory Exam: Decreased Breath Sounds, Rhonchi, Respiratory Distress - Cardiovascular Exam Cardiovascular Exam: Tachycardia - GI/Abdominal Exam GI & Abdominal Exam: Distended, Hypoactive Bowel Sounds, Soft - Rectal Exam Rectal Exam: Deferred - Extremities Exam Extremities exam: Positive for: pedal edema, pedal pulses present - Back Exam Back exam: NORMAL INSPECTION - Neurological Exam Neurological exam: Alert, Oriented x3 - Psychiatric Exam Psychiatric exam: Anxious, Depressed - Skin Skin Exam: Normal Color, Warm Additional comments: sacral pressure sore Results - Vital Signs Recent Vital Signs: Last Vital Signs Temp 98.2 F 04/13/18 04:00 Pulse 98 H 04/13/18 10:00 Resp 24 04/13/18 10:00 BP 101/68 04/13/18 10:00 Pulse Ox 101 H 04/13/18 10:00 - Labs Result Diagrams: 04/13/18 06:10 04/13/18 06:10 Labs: Laboratory Results - last 24 hr 01/10/2204/12/18 04/12/18 11:22 16:31 16:56 WBC RBC Hgb Hct MCV MCH MCHC RDW Plt Count MPV PT INR APTT Puncture Site Rra pCO2 45 pO2 81 HCO3 31.1 H ABG pH 7.47 H ABG Total CO2 34.2 H ABG O2 Saturation 97.5 ABG Base Excess 8.0 H Pawel Test Na ABG Potassium 3.8 A-a O2 Difference 184.0 Respiratory Index 2.3 Sodium 137.0 Chloride 104.0 Glucose 71 Lactate 1.7 FiO2 45.0 Potassium Carbon Dioxide Anion Gap BUN Creatinine Est GFR ( Amer) Est GFR (Non-Af Amer) POC Glucose (mg/dL) 117 H 80 Random Glucose Lactic Acid Calcium Phosphorus Magnesium Total Bilirubin AST ALT Alkaline Phosphatase Total Protein Albumin Globulin Albumin/Globulin Ratio Arterial Blood Potassium 3.8 04/12/18 04/12/18 04/12/18 21:24 21:30 21:30 WBC RBC Hgb Hct MCV MCH MCHC RDW Plt Count MPV PT INR APTT Puncture Site pCO2 pO2 HCO3 ABG pH ABG Total CO2 ABG O2 Saturation ABG Base Excess Pawel Test ABG Potassium A-a O2 Difference Respiratory Index Sodium 134 Chloride 97 L Glucose Lactate FiO2 Potassium 4.1 Carbon Dioxide 34 H Anion Gap 8 L BUN 54 H Creatinine 0.8 Est GFR ( Amer) > 60 Est GFR (Non-Af Amer) > 60 POC Glucose (mg/dL) 134 H Random Glucose 111 H D Lactic Acid 1.9 Calcium 8.2 L Phosphorus 3.3 Magnesium 2.3 Total Bilirubin 1.6 H AST 14 D ALT 23 Alkaline Phosphatase 47 Total Protein 4.7 L Albumin 2.3 L Globulin 2.4 Albumin/Globulin Ratio 1.0 Arterial Blood Potassium 04/13/18 04/13/18 04/13/18 05:44 06:10 06:10 WBC 18.5 H D RBC 4.61 Hgb 12.2 Hct 39.9 MCV 86.7 MCH 26.5 L MCHC 30.6 L RDW 26.5 H Plt Count 137 MPV 10.9 PT 23.1 H INR 2.1 APTT 37 H Puncture Site pCO2 pO2 HCO3 ABG pH ABG Total CO2 ABG O2 Saturation ABG Base Excess Pawel Test ABG Potassium A-a O2 Difference Respiratory Index Sodium Chloride Glucose Lactate FiO2 Potassium Carbon Dioxide Anion Gap BUN Creatinine Est GFR ( Amer) Est GFR (Non-Af Amer) POC Glucose (mg/dL) 206 H Random Glucose Lactic Acid Calcium Phosphorus Magnesium Total Bilirubin AST ALT Alkaline Phosphatase Total Protein Albumin Globulin Albumin/Globulin Ratio Arterial Blood Potassium 04/13/18 04/13/18 04/13/18 06:10 07:14 11:19 WBC RBC Hgb Hct MCV MCH MCHC RDW Plt Count MPV PT INR APTT Puncture Site pCO2 pO2 HCO3 ABG pH ABG Total CO2 ABG O2 Saturation ABG Base Excess Pawel Test ABG Potassium A-a O2 Difference Respiratory Index Sodium 135 Chloride 98 Glucose Lactate FiO2 Potassium 4.3 Carbon Dioxide 29 Anion Gap 12 BUN 58 H Creatinine 0.8 Est GFR ( Amer) > 60 Est GFR (Non-Af Amer) > 60 POC Glucose (mg/dL) 127 H 124 H Random Glucose 100 Lactic Acid Calcium 8.1 L Phosphorus 3.8 Magnesium 2.4 H Total Bilirubin 1.4 H AST 15 ALT 25 Alkaline Phosphatase 49 Total Protein 4.7 L Albumin 2.3 L Globulin 2.3 Albumin/Globulin Ratio 1.0 Arterial Blood Potassium Assessment & Plan - Assessment and Plan (Free Text) Assessment: Palliative consult There was no Advance Directive on chart, PPS 10% I reviewed all medical records, diagnostic studies, examined patient in the bed, and discussed goals of care with her daughter at bed side Patient is alert, oriented X 3, with high flow O2 via mask what makes speaking difficult. Patient makes eye contacts, nods her head for " yes/no' answers, and occasionally able to speak softly. daughter at bed side, very emotional, crying, but very realistic. NGT in place for decompensation. NPO. IVF on board. Breathing shallow, fast and labored. O2Sat 98 % with high flow O2 on. Abdomen is large, soft, hypoactive bowel sounds, last BM 2 days ago. Patient denies abdominal pain at this time. Enulose on board. Patient on Lantus and Novolog sliding scale. Sacral pressure sores treated with Arlene Oxide and turning and repositioning. BP 101/68, HR 98, afebrile Difflucan and Maxipime Iv on board. Goals of care discussed with patient's daughter at bed side , so patient could hear it. Earlier today, the surgeon and Doctor Perry spoke to patient and daughter about poor prognosis due to complex medical Hx and high risk for surgical interventions. I elicited daughter's and patient's understanding. The daughter cried, but promised her mother she would ask only for ordinary measures. Patient agreed nodding her head for Yes. I introduced POLST and daughter signed DNR/DNI. Daughter admitted being mosque and asked her mother if she would want to see the Manager Of Network from her Jew. Patient confirmed. Interlocking Installer Piedad called to assist with this. Comfort measures discussed with daughter. She understands that her mother was approaching end of her life and wanted her to comfortably. I offered information about Hospice care at home vs inhouse hospice.The daughter fears of being home alone with her mother in case and prefers Inhouse hospice. I explained Criteria for Inhouse hospice and promised her I would try to help in process. Hospice evaluation was ordered. Impression * Acute episode of chronic pulmonary condition * Complex chronic condition limits use of surgical interventions * Abdominal perforation, free air * Intolerance of PO * At risk for malnutrition * sacral pressure sore * Limited mobility due to weakness and prolonged bed rest * Prognosis seen as grave * Spiritual distress * Family member in emotional distress * Daughter wishes for Natural and Comfort care only * POL signed Suggestion * Nonivasive O2 support * Oral care * NPO and IV fluids for hydration * DNR/DNI * Pastoral care for spiritual support * Allow daughter to spend as time as possible with her mother, allow daughter to express her feelings * Hospice eval for Inhouse hospice. Advance Care planing 50 min Palliative care will sign off once Hospice care takes over.
[2018-04-13] MEDS: (Lantus) Insulin Glargine, Recombinant SC SCH (22:59)
[2018-04-14] MEDS: Piperacill/Tazo 3.375gm in Dex 3.375 GM/50 ML BAG IVPB SCH ×4 (00:30→18:14)
[2018-04-14] MEDS: Albuterol-Ipratrop 3 mg / 0.5 (3 ml) UD INH SCH ×3 (02:54→20:45)
[2018-04-14] MEDS: Cefepime IV 1 gm in Dextrose 1 GM/50 ML BAG IVPB SCH ×2 (05:30→18:14)
[2018-04-14 06:42] LABS: BASO % 0.1 % (0.0-2.0); EOS % 0.1 % (0.0-4.0); HEMOGLOBIN 10.3 g/dL (11.0-16.0); LYMPH # 0.3 K/uL (1.0-4.3); LYMPH % 3.9 % (20.0-40.0); MEAN CELL VOLUME 85.2 fL (81.0-99.0); MEAN CORPUSCULAR HEMOGLOBIN 27.2 pg (27.0-31.0); MEAN CORPUSCULAR HGB CONC 31.9 g/dL (33.0-37.0); MEAN PLATELET VOLUME 11.4 fL (7.2-11.7); MONO # 0.2 K/uL (0.0-0.8); MONO % 2.7 % (0.0-10.0); NEUT # 8.1 K/uL (1.8-7.0); NEUT % 93.2 % (50.0-75.0); PLATELET COUNT 74 K/uL (130-400); RBC 3.79 Mil/uL (3.80-5.20); RED CELL DISTRIBUTION WIDTH 25.3 % (11.5-14.5); WHITE BLOOD COUNT 8.7 K/uL (4.8-10.8)
[2018-04-14 07:01] LABS: ALBUMIN 2.1 g/dL (3.5-5.0); ALT/SGPT 20 U/L (9-52); AST/SGOT 10 U/L (14-36); BLOOD UREA NITROGEN 60 mg/dL (7-17); CALCIUM 7.9 mg/dl (8.6-10.4); GFR NON-AFRICAN AMERICAN 60
--- NOTE | 2018-04-14 08:15 | CP.PCM.PN ---
<Lopez Álvarez - Last Filed: 04/14/18 18:58> Subjective - Date & Time of Evaluation Date of Evaluation: 04/14/18 Time of Evaluation: 08:13 - Subjective Subjective: General Surgery Progress Note for Dr. Gordon 82F seen and evaluated at bedside this morning. Patient on 2mcg of levo at this time. [place] output 385cc overnight. Patient admits to mild abdominal pain. Denies f/c, n/v/d, CP, palpitations, or urinary symptoms. Objective - Vital Signs/Intake and Output Vital Signs (last 24 hours): Temp Pulse Resp BP Pulse Ox 98.5 F 102 H 19 112/68 100 04/14/18 04:00 04/14/18 05:00 04/14/18 05:06 04/14/18 05:06 04/14/18 03:58 Intake and Output: 04/14/18 04/14/18 06:59 18:59 Intake Total 742.5 Output Total 385 Balance 357.5 - Medications Medications: Current Medications Acetaminophen (Tylenol 325mg Tab) 650 mg PO Q6 PRN PRN Reason: Fever >100.4 F Last Admin: 04/02/18 04:36 Dose: 650 mg Albuterol/Ipratropium (Duoneb 3 Mg/0.5 Mg (3 Ml) Ud) 3 ml INH RQ6 KEV Last Admin: 04/14/18 02:54 Dose: Not Given Amiodarone HCl (Cordarone) 200 mg PO DAILY KEV Last Admin: 04/13/18 10:50 Dose: 200 mg Apixaban (Eliquis) 5 mg PO BID KEV Last Admin: 04/11/18 17:28 Dose: 5 mg Ascorbic Acid (Vitamin C 500 Mg Tab) 500 mg PO BID KEV Last Admin: 04/13/18 17:04 Dose: 500 mg Bacitracin (Bacitracin) 0 gm TOP BID KEV Last Admin: 04/13/18 17:03 Dose: 1 applic Fluconazole (Diflucan Iv 100 Mg/50 Ml Ns) 50 mls @ 100 mls/hr IVPB DAILY KEV; Protocol Last Admin: 04/13/18 10:52 Dose: 100 mls/hr Cefepime HCl (Maxipime Iv 1 Gm Premix) 1 gm in 50 mls @ 100 mls/hr IVPB Q12H KEV; Protocol Last Admin: 04/14/18 05:30 Dose: 100 mls/hr Piperacillin Sod/Tazobactam Sod (Zosyn 3.375 Gm Iv Premix) 3.375 gm in 50 mls @ 100 mls/hr IVPB Q6H [facility]; Protocol Last Admin: 04/14/18 05:34 Dose: 100 mls/hr Norepinephrine Bitartrate 4 mg (/ Dextrose) 254 mls @ 15.24 mls/hr IV .[id number] PRN; Protocol PRN Reason: TITRATE PER MD ORDER Last Titration: 04/14/18 06:30 Dose: 1.96 mcg/min, 7.5 mls/hr Insulin Glargine (Lantus) 5 unit SC HS [facility] Last Admin: 04/13/18 22:59 Dose: 5 units Insulin Human Regular (Novolin R) 6 unit SC ACHS [facility] Last Admin: 04/13/18 22:00 Dose: Not Given Lactulose (Enulose) 20 gm PO HS PRN PRN Reason: Constipation Last Admin: 04/12/18 10:21 Dose: 20 gm Multivitamins/Vitamin C (Multi-Delyn Liquid) 5 ml PO DAILY [facility] Last Admin: 04/13/18 11:35 Dose: 5 ml Nystatin (Nystop Topical Powder) 1 applic TOP BID [facility] Last Admin: 04/13/18 17:02 Dose: 1 applic Pantoprazole Sodium (Protonix Susp) 40 mg PO DAILY [facility] Last Admin: 04/13/18 10:39 Dose: 40 mg Silver Sulfadiazine (Silvadene 1% 20 Gm) 0 ea TOP BID [facility] Last Admin: 04/13/18 17:02 Dose: 1 applic Zinc Sulfate (Zinc Sulfate 220 Mg Cap) 220 mg PO DAILY [facility] Last Admin: 04/13/18 10:50 Dose: 220 mg - Labs Labs: 04/14/18 06:35 04/14/18 06:35 PT 23.1 SECONDS (9.7-12.2) H 04/13/18 06:10 INR 2.1 04/13/18 06:10 APTT 37 SECONDS (21-34) H 04/13/18 06:10 - Constitutional Appears: No Acute Distress, Chronically Ill - Head Exam Head Exam: ATRAUMATIC, NORMAL INSPECTION, NORMOCEPHALIC - ENT Exam ENT Exam: Mucous Membranes Dry - Respiratory Exam Additional comments: Ventimask - O2 35% - Cardiovascular Exam Cardiovascular Exam: Tachycardia, REGULAR RHYTHM - GI/Abdominal Exam GI & Abdominal Exam: Soft, Tenderness, Normal Bowel Sounds. absent: Distended, Guarding, Rebound - Neurological Exam Neurological Exam: Alert, Awake Assessment and Plan - Assessment and Plan (Free Text) Assessment: 82F w/ suspected perforated viscous w/ free air visualized on CT scan Plan: Patient not candidate for inpatient hospice No surgical intervention at this time - patient and family understand risks of surgery, if warranted Continue conservative medical management NPO NGT IVF and resuscitate IV Abx Fleet enema x1 May repeat CT abd/pel Continue to monitor AM labs Continue to monitor vitals and hemodynamic stability Further recommendations per Dr. Heidi Álvarez PGY1 <Milad Gordon B - Last Filed: 04/22/18 08:53> Objective - Vital Signs/Intake and Output Vital Signs (last 24 hours): Temp Pulse Resp BP Pulse Ox 97 F L 47 L 11 L 63/30 L 97 04/21/18 20:00 04/21/18 21:01 04/21/18 21:01 04/21/18 21:01 04/21/18 17:00 Intake and Output: 04/22/18 04/22/18 06:59 18:59 Intake Total 15 Balance 15 - Labs Labs: 04/21/18 05:47 04/21/18 05:47 PT 23.5 SECONDS (9.7-12.2) H 04/20/18 06:32 INR 2.1 04/20/18 06:32 APTT 52 SECONDS (21-34) H D 04/20/18 06:32 Attending/Attestation - Attestation I have personally seen and examined this patient.: Yes I have fully participated in the care of the patient.: Yes I have reviewed all pertinent clinical information, including history, physical exam and plan: Yes Notes (Text): Pt was seen and examined at bedside Pt has improved clinically Less pressor requirement NPO, IVF NG to LIS c.w ICU management Plan d.w ICU attending and family in detail Risk and benefit explained in detail.
[2018-04-14 08:24] LABS: BANDS 2 % (0-2); EOSINOPHIL 1 % (0-4); LYMPHOCYTE 3 % (20-40); MONOCYTE 1 % (0-10); NEUTROPHIL 93 % (50-75); TOTAL CELLS COUNTED 100
[2018-04-14 08:25] LABS: ANISOCYTOSIS SLIGHT; HYPOCHROMIC SLIGHT; PLATELET ESTIMATE DECREASED (NORMAL); POIKILOCYTOSIS SLIGHT
[2018-04-14 08:26] LABS: BURR CELLS SLIGHT; OVALOCYTES SLIGHT
[2018-04-14 08:27] LABS: TARGET CELLS SLIGHT; TEARDROP CELLS SLIGHT
--- NOTE | 2018-04-14 08:56 | CP.CCUPN ---
<Margi Valenzuela - Last Filed: 04/14/18 11:15> CCU Subjective - Physician Review Subjective (Free Text): 04/14/18 08:38 Critical Care Progress Note for Dr. Amador's service Patient seen and examined at bedside. Patient admits to abdominal pain. Patient denies fevers, chills, chest pain, sob, n/v, constipation or diarrhea, and dysuria. Critical Care Time Spent (in minutes): 35 CCU Objective - Vital Signs / Intake & Output Vital Signs (Last 4 hours): Vital Signs Pulse Resp BP Pulse Ox 04/14/18 07:00 99 H 22 100 04/14/18 06:08 107/66 04/14/18 05:06 19 112/68 04/14/18 05:00 102 H 24 Intake and Output (Last 8hrs): Intake & Output 04/13/18 04/14/18 04/14/18 22:59 06:59 14:59 Intake Total 594.0 535.5 7.5 Output Total 205 330 100 Balance 389.0 205.5 -92.5 Weight 225 lb 11.2 oz Intake: IV 50 254 Intake, IV Amount 344.0 181.5 7.5 Left Distal Port Internal 100 Jugular Left Proximal Port 244.0 181.5 7.5 Internal Jugular Oral 200 100 0 Output: Drainage 60 Left Lower Chest 60 Urine 205 330 40 Urethral ([place]) 205 330 40 Other: # Bowel Movements 0 0 0 - Physical Exam Head: Positive for: Atraumatic, Normocephalic, Other (central line in left IJ) Pupils: Positive for: PERRL Extroacular Muscles: Positive for: EOMI Conjunctiva: Positive for: Normal Mouth: Positive for: Dry Neck: Positive for: Normal Range of Motion. Negative for: JVD, Lymphadenopathy Respiratory/Chest: Positive for: Good Air Exchange, Decreased Breath Sounds. Negative for: Accessory Muscle Use, Wheezes, Tachypneic Cardiovascular: Positive for: Regular Rate and Rhythm, Normal S1, S2. Negative for: Murmurs, Irregular Rhythm Abdomen: Positive for: Normal Bowel Sounds, Other (umbilical hernia). Negative for: Tenderness, Distention, Peritoneal Signs, Rebound, Guarding Genitourinary/Pelvic Exam: Positive for: Other (Dover in place for strict Is/Os) Upper Extremity: Positive for: Normal Inspection, Edema. Negative for: Cyanosis Lower Extremity: Positive for: Normal Inspection, Edema Neurological: Positive for: GCS=15 Skin: Positive for: Dry, Normal Color, Other (chest tube in posterior left back, right foot ulcer, and sacral unstageable ulcer). Negative for: Diaphoretic Psychiatric: Positive for: Alert, Oriented x 3 - Medications Active Medications: Active Medications Generic Name Dose Route Start Last Admin Trade Name Freq PRN Reason Stop Dose Admin Acetaminophen 650 mg 03/23/18 15:59 04/02/18 04:36 Tylenol 325mg Tab PO 650 mg Q6 PRN Administration Fever >100.4 F Albuterol/Ipratropium 3 ml 04/02/18 14:00 04/14/18 02:54 Duoneb 3 Mg/0.5 Mg (3 Ml) Ud INH Not Given RQ6 KEV Amiodarone HCl 200 mg 03/23/18 16:45 04/13/18 10:50 Cordarone PO 200 mg DAILY KEV Administration Apixaban 5 mg 03/23/18 18:00 04/11/18 17:28 Eliquis PO 5 mg BID KEV Administration Ascorbic Acid 500 mg 04/02/18 10:00 04/13/18 17:04 Vitamin C 500 Mg Tab PO 500 mg BID KEV Administration Bacitracin 0 gm 04/01/18 18:00 04/13/18 17:03 Bacitracin TOP 1 applic BID KEV Administration Fluconazole 50 mls @ 100 mls/hr 03/27/18 10:00 04/13/18 10:52 Diflucan Iv 100 Mg/50 Ml Ns IVPB 100 mls/hr DAILY KEV Administration Protocol Cefepime HCl 1 gm in 50 mls @ 100 mls/hr 04/01/18 16:30 04/14/18 05:30 Maxipime Iv 1 Gm Premix IVPB 100 mls/hr Q12H KEV Administration Protocol Piperacillin Sod/Tazobactam Sod 3.375 gm in 50 mls @ 100 mls/hr 04/12/18 18:00 04/14/18 05:34 Zosyn 3.375 Gm Iv Premix IVPB 100 mls/hr Q6H KEV Administration Protocol Norepinephrine Bitartrate 4 mg 254 mls @ 15.24 mls/hr 04/12/18 18:52 04/14/18 06:30 / Dextrose IV 1.96 mcg/min .[id number] PRN 7.5 mls/hr TITRATE PER MD ORDER Titration Protocol 4 MCG/MIN Insulin Glargine 5 unit 04/11/18 22:00 04/13/18 22:59 Lantus SC 5 units HS KEV Administration Insulin Human Regular 6 unit 04/11/18 11:30 04/13/18 22:00 Novolin R SC Not Given ACHS KEV Lactulose 20 gm 03/30/18 19:13 04/12/18 10:21 Enulose PO 20 gm HS PRN Administration Constipation Multivitamins/Vitamin C 5 ml 04/02/18 10:00 04/13/18 11:35 Multi-Delyn Liquid PO 5 ml DAILY KEV Administration Nystatin 1 applic 03/23/18 18:00 04/13/18 17:02 Nystop Topical Powder TOP 1 applic BID KEV Administration Pantoprazole Sodium 40 mg 03/27/18 10:00 04/13/18 10:39 Protonix Susp PO 40 mg DAILY KEV Administration Silver Sulfadiazine 0 ea 03/26/18 10:00 04/13/18 17:02 Silvadene 1% 20 Gm TOP 1 applic BID KEV Administration Zinc Sulfate 220 mg 04/02/18 10:00 04/13/18 10:50 Zinc Sulfate 220 Mg Cap PO 220 mg DAILY KEV Administration - Patient Studies Lab Studies: Lab Studies 04/14/18 04/14/18 04/14/18 Range/Units 06:37 06:35 06:35 WBC 8.7 D (4.8-10.8) K/uL RBC 3.79 L (3.80-5.20) Mil/uL Hgb 10.3 L (11.0-16.0) g/dL Hct 32.3 L (34.0-47.0) % MCV 85.2 (81.0-99.0) fL MCH 27.2 (27.0-31.0) pg MCHC 31.9 L (33.0-37.0) g/dL RDW 25.3 H (11.5-14.5) % Plt Count 74 L D (130-400) K/uL MPV 11.4 (7.2-11.7) fL Neut % (Auto) 93.2 H (50.0-75.0) % Lymph % (Auto) 3.9 L (20.0-40.0) % [place] % (Auto) 2.7 (0.0-10.0) % Eos % (Auto) 0.1 (0.0-4.0) % Baso % (Auto) 0.1 (0.0-2.0) % Neut # (Auto) 8.1 H (1.8-7.0) K/uL Lymph # (Auto) 0.3 L (1.0-4.3) K/uL [place] # (Auto) 0.2 (0.0-0.8) K/uL Eos # (Auto) 0.0 (0.0-0.7) K/uL Baso # (Auto) 0.0 (0.0-0.2) K/uL Neutrophils % (Manual) 93 H (50-75) % Band Neutrophils % 2 (0-2) % Lymphocytes % (Manual) 3 L (20-40) % Monocytes % (Manual) 1 (0-10) % Eosinophils % (Manual) 1 (0-4) % Platelet Estimate Decreased L (NORMAL) Hypochromasia (manual) Slight Poikilocytosis (manual Slight Basophilic Stippling Slight Anisocytosis (manual) Slight Target Cells Slight Tear Drop Cells Slight Ovalocytes Slight Shalini Cells Slight Sodium 131 L (132-148) mmol/L Potassium 3.9 (3.6-5.2) mmol/L Chloride 95 L (98-107) mmol/L Carbon Dioxide 31 H (22-30) mmol/L Anion Gap 9 L (10-20) BUN 60 H (7-17) mg/dL Creatinine 0.9 (0.7-1.2) mg/dL Est GFR ( Amer) > 60 Est GFR (Non-Af Amer) 60 POC Glucose (mg/dL) (65-110) mg/dL Random Glucose 112 H (65-105) mg/dL Lactic Acid 1.6 (0.7-2.1) mmol/L Calcium 7.9 L (8.6-10.4) mg/dl Phosphorus 3.8 (2.5-4.5) mg/dL Magnesium 2.2 (1.6-2.3) mg/dL Total Bilirubin 1.3 (0.2-1.3) mg/dL AST 10 L D (14-36) U/L ALT 20 (9-52) U/L Alkaline Phosphatase 44 (38-126) U/L Total Protein 4.2 L (6.3-8.3) g/dL Albumin 2.1 L (3.5-5.0) g/dL Globulin 2.2 (2.2-3.9) gm/dL Albumin/Globulin Ratio 1.0 (1.0-2.1) 04/13/18 04/13/18 04/13/18 Range/Units 20:44 16:12 11:19 WBC (4.8-10.8) K/uL RBC (3.80-5.20) Mil/uL Hgb (11.0-16.0) g/dL Hct (34.0-47.0) % MCV (81.0-99.0) fL MCH (27.0-31.0) pg MCHC (33.0-37.0) g/dL RDW (11.5-14.5) % Plt Count (130-400) K/uL MPV (7.2-11.7) fL Neut % (Auto) (50.0-75.0) % Lymph % (Auto) (20.0-40.0) % [place] % (Auto) (0.0-10.0) % Eos % (Auto) (0.0-4.0) % Baso % (Auto) (0.0-2.0) % Neut # (Auto) (1.8-7.0) K/uL Lymph # (Auto) (1.0-4.3) K/uL [place] # (Auto) (0.0-0.8) K/uL Eos # (Auto) (0.0-0.7) K/uL Baso # (Auto) (0.0-0.2) K/uL Neutrophils % (Manual) (50-75) % Band Neutrophils % (0-2) % Lymphocytes % (Manual) (20-40) % Monocytes % (Manual) (0-10) % Eosinophils % (Manual) (0-4) % Platelet Estimate (NORMAL) Hypochromasia (manual) Poikilocytosis (manual Basophilic Stippling Anisocytosis (manual) Target Cells Tear Drop Cells Ovalocytes [place] Cells Sodium (132-148) mmol/L Potassium (3.6-5.2) mmol/L Chloride (98-107) mmol/L Carbon Dioxide (22-30) mmol/L Anion Gap (10-20) BUN (7-17) mg/dL Creatinine (0.7-1.2) mg/dL Est GFR ( Amer) Est GFR (Non-Af Amer) POC Glucose (mg/dL) 155 H 137 H 124 H (65-110) mg/dL Random Glucose (65-105) mg/dL Lactic Acid (0.7-2.1) mmol/L Calcium (8.6-10.4) mg/dl Phosphorus (2.5-4.5) mg/dL Magnesium (1.6-2.3) mg/dL Total Bilirubin (0.2-1.3) mg/dL AST (14-36) U/L ALT (9-52) U/L Alkaline Phosphatase (38-126) U/L Total Protein (6.3-8.3) g/dL Albumin (3.5-5.0) g/dL Globulin (2.2-3.9) gm/dL Albumin/Globulin Ratio (1.0-2.1) 04/13/18 Range/Units 07:14 WBC (4.8-10.8) K/uL RBC (3.80-5.20) Mil/uL Hgb (11.0-16.0) g/dL Hct (34.0-47.0) % MCV (81.0-99.0) fL MCH (27.0-31.0) pg MCHC (33.0-37.0) g/dL RDW (11.5-14.5) % Plt Count (130-400) K/uL MPV (7.2-11.7) fL Neut % (Auto) (50.0-75.0) % Lymph % (Auto) (20.0-40.0) % [place] % (Auto) (0.0-10.0) % Eos % (Auto) (0.0-4.0) % Baso % (Auto) (0.0-2.0) % Neut # (Auto) (1.8-7.0) K/uL Lymph # (Auto) (1.0-4.3) K/uL [place] # (Auto) (0.0-0.8) K/uL Eos # (Auto) (0.0-0.7) K/uL Baso # (Auto) (0.0-0.2) K/uL Neutrophils % (Manual) (50-75) % Band Neutrophils % (0-2) % Lymphocytes % (Manual) (20-40) % Monocytes % (Manual) (0-10) % Eosinophils % (Manual) (0-4) % Platelet Estimate (NORMAL) Hypochromasia (manual) Poikilocytosis (manual Basophilic Stippling Anisocytosis (manual) Target Cells Tear Drop Cells Ovalocytes [place] Cells Sodium (132-148) mmol/L Potassium (3.6-5.2) mmol/L Chloride (98-107) mmol/L Carbon Dioxide (22-30) mmol/L Anion Gap (10-20) BUN (7-17) mg/dL Creatinine (0.7-1.2) mg/dL Est GFR ( Amer) Est GFR (Non-Af Amer) POC Glucose (mg/dL) 127 H (65-110) mg/dL Random Glucose (65-105) mg/dL Lactic Acid (0.7-2.1) mmol/L Calcium (8.6-10.4) mg/dl Phosphorus (2.5-4.5) mg/dL Magnesium (1.6-2.3) mg/dL Total Bilirubin (0.2-1.3) mg/dL AST (14-36) U/L ALT (9-52) U/L Alkaline Phosphatase (38-126) U/L Total Protein (6.3-8.3) g/dL Albumin (3.5-5.0) g/dL Globulin (2.2-3.9) gm/dL Albumin/Globulin Ratio (1.0-2.1) Laboratory Results - last 24 hr 04/13/18 04/13/18 04/13/18 07:14 11:19 16:12 WBC RBC Hgb Hct MCV MCH MCHC RDW Plt Count MPV Neut % (Auto) Lymph % (Auto) [place] % (Auto) Eos % (Auto) Baso % (Auto) Neut # (Auto) Lymph # (Auto) [place] # (Auto) Eos # (Auto) Baso # (Auto) Neutrophils % (Manual) Band Neutrophils % Lymphocytes % (Manual) Monocytes % (Manual) Eosinophils % (Manual) Platelet Estimate Hypochromasia (manual) Poikilocytosis (manual Basophilic Stippling Anisocytosis (manual) Target Cells Tear Drop Cells Ovalocytes Shalini Cells Sodium Potassium Chloride Carbon Dioxide Anion Gap BUN Creatinine Est GFR ( Amer) Est GFR (Non-Af Amer) POC Glucose (mg/dL) 127 H 124 H 137 H Random Glucose Lactic Acid Calcium Phosphorus Magnesium Total Bilirubin AST ALT Alkaline Phosphatase Total Protein Albumin Globulin Albumin/Globulin Ratio 04/13/18 04/14/18 04/14/18 20:44 06:35 06:35 WBC 8.7 D RBC 3.79 L Hgb 10.3 L Hct 32.3 L MCV 85.2 MCH 27.2 MCHC 31.9 L RDW 25.3 H Plt Count 74 L D MPV 11.4 Neut % (Auto) 93.2 H Lymph % (Auto) 3.9 L [place] % (Auto) 2.7 Eos % (Auto) 0.1 Baso % (Auto) 0.1 Neut # (Auto) 8.1 H Lymph # (Auto) 0.3 L [place] # (Auto) 0.2 Eos # (Auto) 0.0 Baso # (Auto) 0.0 Neutrophils % (Manual) 93 H Band Neutrophils % 2 Lymphocytes % (Manual) 3 L Monocytes % (Manual) 1 Eosinophils % (Manual) 1 Platelet Estimate Decreased L Hypochromasia (manual) Slight Poikilocytosis (manual Slight Basophilic Stippling Slight Anisocytosis (manual) Slight Target Cells Slight Tear Drop Cells Slight Ovalocytes Slight Shalini Cells Slight Sodium 131 L Potassium 3.9 Chloride 95 L Carbon Dioxide 31 H Anion Gap 9 L BUN 60 H Creatinine 0.9 Est GFR ( Amer) > 60 Est GFR (Non-Af Amer) 60 POC Glucose (mg/dL) 155 H Random Glucose 112 H Lactic Acid Calcium 7.9 L Phosphorus 3.8 Magnesium 2.2 Total Bilirubin 1.3 AST 10 L D ALT 20 Alkaline Phosphatase 44 Total Protein 4.2 L Albumin 2.1 L Globulin 2.2 Albumin/Globulin Ratio 1.0 04/14/18 06:37 WBC RBC Hgb Hct MCV MCH MCHC RDW Plt Count MPV Neut % (Auto) Lymph % (Auto) [place] % (Auto) Eos % (Auto) Baso % (Auto) Neut # (Auto) Lymph # (Auto) [place] # (Auto) Eos # (Auto) Baso # (Auto) Neutrophils % (Manual) Band Neutrophils % Lymphocytes % (Manual) Monocytes % (Manual) Eosinophils % (Manual) Platelet Estimate Hypochromasia (manual) Poikilocytosis (manual Basophilic Stippling Anisocytosis (manual) Target Cells Tear Drop Cells Ovalocytes Shalini Cells Sodium Potassium Chloride Carbon Dioxide Anion Gap BUN Creatinine Est GFR ( Amer) Est GFR (Non-Af Amer) POC Glucose (mg/dL) Random Glucose Lactic Acid 1.6 Calcium Phosphorus Magnesium Total Bilirubin AST ALT Alkaline Phosphatase Total Protein Albumin Globulin Albumin/Globulin Ratio Fingerstick Blood Sugar Results: 155 Review of Systems - Review of Systems Review of Systems: 12 point ROS obtained and noted as in HPI Critical Care Progress Note - Extremities/Vascular Does the Patient have a Central Venous Catheter?: Yes Insertion Site: Internal Jugular Vein Does the Patient need a Central Venous Catheter?: Yes Does the Patient have a [place] Catheter?: Yes Does the Patient need a [place] Catheter?: Yes Catheter Insertion Criteria: Need for accurate measurement of output in critically ill patient - Prophylaxis GI Prophylaxis GI: PPI - Nutrition Nutrition: Nutrition Category Date Time Status Heart Healthy Diet [DIET] Diets 04/13/18 Lunch Active Assessment/Plan - Assessment and Plan (Free Text) Assessment: Patient is a 82 yo female w/ PMH of CHF, HTN, Afib on AC admitted for bilateral pleural effusions and pneumonia. Patient was intubated and extubated. Patient has recurrent pleural effusions s/p thoracentesis and chest tube placement. Patient on CT abd/pelvis showed perforation with free air. Poor surgical candidate. Patient made DNR/DNI. Hospice denied inpatient care. Neuro Awake, Alerted, Oriented No acute issues Pulm Duoneb Cefepime/Fluconazole (start dates 04/01 and 03/27 respectively); Further management as per ID s/p thoracentesis 1100ml fluid drained- right s/p chest tube insertion on 04/07/18 with 1600 drained first day then clamped; further management as per pumonology for when to remove Continue aggressive pulm toilet Patient was made DNR/DNI; Hospice denied inpatient care; Continue medical management for effusion and perforation CV Amiodarone Levo drip Eliquis held GI CT abdomen/pelvis shows free air, surgery was consulted, spoke with patient family stated patient was poor surgical candidate and would likely not survive OR, continue medical management Protonix; Lactulose As per dietary ensure will be three times a day Heme Elqiuis-held no acute issues Endo ACHS; Glargine; Insulin regular Renal Zinc/Multivitamins/Ascorbic acid Hyponatremia- consider fluid restriction in the setting of CHF and fluid overload/third spacing if continues to drop Repeat CMP in AM Derm Podiatry following for foot ulcer on right- Nystatin, multipodus boots Wound care for unstagable sacral ulcer and buttock ulcer- recommendations are continued as per wound care- bacitracin/medihoney Continue to monitor ID Cefepime/Fluconazole/Zosyn(started on 04/01, 03/27, 04/12/18) + trach asp for yeast species; + urine cx for yeast species new figueredo cx negative GI ppx: Protonix DVT ppx: Elquis 5mg po bid- held, SCDs not tolerable Disposition: Hospice denied inpatient care, continue medical management for effusion and perforation, poor surgical candidate Margi Valenzuela PGY-1 Case d/w Dr. Amador <Zaheer Amador - Last Filed: 04/14/18 16:16> CCU Objective - Vital Signs / Intake & Output Vital Signs (Last 4 hours): Vital Signs Pulse Resp BP Pulse Ox 04/14/18 15:55 110/79 04/14/18 15:54 91 H 21 04/14/18 15:45 87 12 91 L 04/14/18 15:30 79 10 L 94 L 04/14/18 15:15 92 H 24 04/14/18 15:00 88 18 04/14/18 14:30 90 13 91 L 04/14/18 14:15 86 23 04/14/18 14:07 90 16 110/71 97 04/14/18 13:15 93 H 26 H 99 04/14/18 13:07 103/81 04/14/18 13:00 88 14 04/14/18 12:45 91 H 11 L 100 04/14/18 12:30 98 H 25 H Intake and Output (Last 8hrs): Intake & Output 04/14/18 04/14/18 04/14/18 06:59 14:59 22:59 Intake Total 535.5 291.5 120 Output Total 330 380 50 Balance 205.5 -88.5 70 Weight 225 lb 11.2 oz Intake: IV 254 4 Intake, IV Amount 181.5 107.5 Left Proximal Port 181.5 107.5 Internal Jugular Oral 100 180 120 Output: Drainage 60 Left Lower Chest 60 Urine 330 320 50 Urethral ([place]) 330 320 50 Other: # Bowel Movements 0 0 - Medications Active Medications: Active Medications Generic Name Dose Route Start Last Admin Trade Name Freq PRN Reason Stop Dose Admin Acetaminophen 650 mg 03/23/18 15:59 04/02/18 04:36 Tylenol 325mg Tab PO 650 mg Q6 PRN Administration Fever >100.4 F Albuterol/Ipratropium 3 ml 04/02/18 14:00 04/14/18 02:54 Duoneb 3 Mg/0.5 Mg (3 Ml) Ud INH Not Given RQ6 KEV Amiodarone HCl 200 mg 03/23/18 16:45 04/14/18 11:32 Cordarone PO 200 mg DAILY KEV Administration Apixaban 5 mg 03/23/18 18:00 04/11/18 17:28 Eliquis PO 5 mg BID KEV Administration Ascorbic Acid 500 mg 04/02/18 10:00 04/14/18 09:47 Vitamin C 500 Mg Tab PO Not Given BID KEV Bacitracin 0 gm 04/01/18 18:00 04/14/18 09:46 Bacitracin TOP 1 applic BID KEV Administration Fluconazole 50 mls @ 100 mls/hr 03/27/18 10:00 04/14/18 09:47 Diflucan Iv 100 Mg/50 Ml Ns IVPB 100 mls/hr DAILY KEV Administration Protocol Cefepime HCl 1 gm in 50 mls @ 100 mls/hr 04/01/18 16:30 04/14/18 05:30 Maxipime Iv 1 Gm Premix IVPB 100 mls/hr Q12H KEV Administration Protocol Piperacillin Sod/Tazobactam Sod 3.375 gm in 50 mls @ 100 mls/hr 04/12/18 18:00 04/14/18 12:47 Zosyn 3.375 Gm Iv Premix IVPB 100 mls/hr Q6H KEV Administration Protocol Norepinephrine Bitartrate 4 mg 254 mls @ 15.24 mls/hr 04/12/18 18:52 04/14/18 14:33 / Dextrose IV 0 mcg/min .[id number] PRN 0 mls/hr TITRATE PER MD ORDER Titration Protocol 4 MCG/MIN Insulin Glargine 5 unit 04/11/18 22:00 04/13/18 22:59 Lantus SC 5 units HS KEV Administration Insulin Human Regular 6 unit 04/11/18 11:30 04/14/18 11:29 Novolin R SC Not Given ACHS KEV Lactulose 20 gm 03/30/18 19:13 04/12/18 10:21 Enulose PO 20 gm HS PRN Administration Constipation Morphine Sulfate 2 mg 04/14/18 09:08 Morphine IVP Q4 PRN Pain, moderate (4-7) Multivitamins/Vitamin C 5 ml 04/02/18 10:00 04/14/18 11:30 Multi-Delyn Liquid PO 5 ml DAILY KEV Administration Nystatin 1 applic 03/23/18 18:00 04/14/18 09:46 Nystop Topical Powder TOP 1 applic BID KEV Administration Pantoprazole Sodium 40 mg 03/27/18 10:00 04/14/18 11:29 Protonix Susp PO 40 mg DAILY KEV Administration Silver Sulfadiazine 0 ea 03/26/18 10:00 04/14/18 09:46 Silvadene 1% 20 Gm TOP 1 applic BID KEV Administration Sodium Phosphate 135 ml 04/14/18 16:01 Fleet Enema IL 04/14/18 16:02 ONCE ONE Zinc Sulfate 220 mg 04/02/18 10:00 04/14/18 11:29 Zinc Sulfate 220 Mg Cap PO 220 mg DAILY KEV Administration - Patient Studies Lab Studies: Lab Studies 04/14/18 04/14/18 04/14/18 Range/Units 11:16 07:20 06:37 WBC (4.8-10.8) K/uL RBC (3.80-5.20) Mil/uL Hgb (11.0-16.0) g/dL Hct (34.0-47.0) % MCV (81.0-99.0) fL MCH (27.0-31.0) pg MCHC (33.0-37.0) g/dL RDW (11.5-14.5) % Plt Count (130-400) K/uL MPV (7.2-11.7) fL Neut % (Auto) (50.0-75.0) % Lymph % (Auto) (20.0-40.0) % [place] % (Auto) (0.0-10.0) % Eos % (Auto) (0.0-4.0) % Baso % (Auto) (0.0-2.0) % Neut # (Auto) (1.8-7.0) K/uL Lymph # (Auto) (1.0-4.3) K/uL [place] # (Auto) (0.0-0.8) K/uL Eos # (Auto) (0.0-0.7) K/uL Baso # (Auto) (0.0-0.2) K/uL Neutrophils % (Manual) (50-75) % Band Neutrophils % (0-2) % Lymphocytes % (Manual) (20-40) % Monocytes % (Manual) (0-10) % Eosinophils % (Manual) (0-4) % Platelet Estimate (NORMAL) Hypochromasia (manual) Poikilocytosis (manual Basophilic Stippling Anisocytosis (manual) Target Cells Tear Drop Cells Ovalocytes [place] Cells Sodium (132-148) mmol/L Potassium (3.6-5.2) mmol/L Chloride (98-107) mmol/L Carbon Dioxide (22-30) mmol/L Anion Gap (10-20) BUN (7-17) mg/dL Creatinine (0.7-1.2) mg/dL Est GFR ( Amer) Est GFR (Non-Af Amer) POC Glucose (mg/dL) 142 H 130 H (65-110) mg/dL Random Glucose (65-105) mg/dL Lactic Acid 1.6 (0.7-2.1) mmol/L Calcium (8.6-10.4) mg/dl Phosphorus (2.5-4.5) mg/dL Magnesium (1.6-2.3) mg/dL Total Bilirubin (0.2-1.3) mg/dL AST (14-36) U/L ALT (9-52) U/L Alkaline Phosphatase (38-126) U/L Total Protein (6.3-8.3) g/dL Albumin (3.5-5.0) g/dL Globulin (2.2-3.9) gm/dL Albumin/Globulin Ratio (1.0-2.1) 04/14/18 04/14/18 04/13/18 Range/Units 06:35 06:35 20:44 WBC 8.7 D (4.8-10.8) K/uL RBC 3.79 L (3.80-5.20) Mil/uL Hgb 10.3 L (11.0-16.0) g/dL Hct 32.3 L (34.0-47.0) % MCV 85.2 (81.0-99.0) fL MCH 27.2 (27.0-31.0) pg MCHC 31.9 L (33.0-37.0) g/dL RDW 25.3 H (11.5-14.5) % Plt Count 74 L D (130-400) K/uL MPV 11.4 (7.2-11.7) fL Neut % (Auto) 93.2 H (50.0-75.0) % Lymph % (Auto) 3.9 L (20.0-40.0) % [place] % (Auto) 2.7 (0.0-10.0) % Eos % (Auto) 0.1 (0.0-4.0) % Baso % (Auto) 0.1 (0.0-2.0) % Neut # (Auto) 8.1 H (1.8-7.0) K/uL Lymph # (Auto) 0.3 L (1.0-4.3) K/uL [place] # (Auto) 0.2 (0.0-0.8) K/uL Eos # (Auto) 0.0 (0.0-0.7) K/uL Baso # (Auto) 0.0 (0.0-0.2) K/uL Neutrophils % (Manual) 93 H (50-75) % Band Neutrophils % 2 (0-2) % Lymphocytes % (Manual) 3 L (20-40) % Monocytes % (Manual) 1 (0-10) % Eosinophils % (Manual) 1 (0-4) % Platelet Estimate Decreased L (NORMAL) Hypochromasia (manual) Slight Poikilocytosis (manual Slight Basophilic Stippling Slight Anisocytosis (manual) Slight Target Cells Slight Tear Drop Cells Slight Ovalocytes Slight Shalini Cells Slight Sodium 131 L (132-148) mmol/L Potassium 3.9 (3.6-5.2) mmol/L Chloride 95 L (98-107) mmol/L Carbon Dioxide 31 H (22-30) mmol/L Anion Gap 9 L (10-20) BUN 60 H (7-17) mg/dL Creatinine 0.9 (0.7-1.2) mg/dL Est GFR ( Amer) > 60 Est GFR (Non-Af Amer) 60 POC Glucose (mg/dL) 155 H (65-110) mg/dL Random Glucose 112 H (65-105) mg/dL Lactic Acid (0.7-2.1) mmol/L Calcium 7.9 L (8.6-10.4) mg/dl Phosphorus 3.8 (2.5-4.5) mg/dL Magnesium 2.2 (1.6-2.3) mg/dL Total Bilirubin 1.3 (0.2-1.3) mg/dL AST 10 L D (14-36) U/L ALT 20 (9-52) U/L Alkaline Phosphatase 44 (38-126) U/L Total Protein 4.2 L (6.3-8.3) g/dL Albumin 2.1 L (3.5-5.0) g/dL Globulin 2.2 (2.2-3.9) gm/dL Albumin/Globulin Ratio 1.0 (1.0-2.1) 04/13/18 Range/Units 16:12 WBC (4.8-10.8) K/uL RBC (3.80-5.20) Mil/uL Hgb (11.0-16.0) g/dL Hct (34.0-47.0) % MCV (81.0-99.0) fL MCH (27.0-31.0) pg MCHC (33.0-37.0) g/dL RDW (11.5-14.5) % Plt Count (130-400) K/uL MPV (7.2-11.7) fL Neut % (Auto) (50.0-75.0) % Lymph % (Auto) (20.0-40.0) % [place] % (Auto) (0.0-10.0) % Eos % (Auto) (0.0-4.0) % Baso % (Auto) (0.0-2.0) % Neut # (Auto) (1.8-7.0) K/uL Lymph # (Auto) (1.0-4.3) K/uL [place] # (Auto) (0.0-0.8) K/uL Eos # (Auto) (0.0-0.7) K/uL Baso # (Auto) (0.0-0.2) K/uL Neutrophils % (Manual) (50-75) % Band Neutrophils % (0-2) % Lymphocytes % (Manual) (20-40) % Monocytes % (Manual) (0-10) % Eosinophils % (Manual) (0-4) % Platelet Estimate (NORMAL) Hypochromasia (manual) Poikilocytosis (manual Basophilic Stippling Anisocytosis (manual) Target Cells Tear Drop Cells Ovalocytes [place] Cells Sodium (132-148) mmol/L Potassium (3.6-5.2) mmol/L Chloride (98-107) mmol/L Carbon Dioxide (22-30) mmol/L Anion Gap (10-20) BUN (7-17) mg/dL Creatinine (0.7-1.2) mg/dL Est GFR ( Amer) Est GFR (Non-Af Amer) POC Glucose (mg/dL) 137 H (65-110) mg/dL Random Glucose (65-105) mg/dL Lactic Acid (0.7-2.1) mmol/L Calcium (8.6-10.4) mg/dl Phosphorus (2.5-4.5) mg/dL Magnesium (1.6-2.3) mg/dL Total Bilirubin (0.2-1.3) mg/dL AST (14-36) U/L ALT (9-52) U/L Alkaline Phosphatase (38-126) U/L Total Protein (6.3-8.3) g/dL Albumin (3.5-5.0) g/dL Globulin (2.2-3.9) gm/dL Albumin/Globulin Ratio (1.0-2.1) Laboratory Results - last 24 hr 04/13/18 04/13/18 04/14/18 16:12 20:44 06:35 WBC 8.7 D RBC 3.79 L Hgb 10.3 L Hct 32.3 L MCV 85.2 MCH 27.2 MCHC 31.9 L RDW 25.3 H Plt Count 74 L D MPV 11.4 Neut % (Auto) 93.2 H Lymph % (Auto) 3.9 L [place] % (Auto) 2.7 Eos % (Auto) 0.1 Baso % (Auto) 0.1 Neut # (Auto) 8.1 H Lymph # (Auto) 0.3 L [place] # (Auto) 0.2 Eos # (Auto) 0.0 Baso # (Auto) 0.0 Neutrophils % (Manual) 93 H Band Neutrophils % 2 Lymphocytes % (Manual) 3 L Monocytes % (Manual) 1 Eosinophils % (Manual) 1 Platelet Estimate Decreased L Hypochromasia (manual) Slight Poikilocytosis (manual Slight Basophilic Stippling Slight Anisocytosis (manual) Slight Target Cells Slight Tear Drop Cells Slight Ovalocytes Slight [place] Cells Slight Sodium Potassium Chloride Carbon Dioxide Anion Gap BUN Creatinine Est GFR ( Amer) Est GFR (Non-Af Amer) POC Glucose (mg/dL) 137 H 155 H Random Glucose Lactic Acid Calcium Phosphorus Magnesium Total Bilirubin AST ALT Alkaline Phosphatase Total Protein Albumin Globulin Albumin/Globulin Ratio 04/14/18 04/14/18 04/14/18 06:35 06:37 07:20 WBC RBC Hgb Hct MCV MCH MCHC RDW Plt Count MPV Neut % (Auto) Lymph % (Auto) [place] % (Auto) Eos % (Auto) Baso % (Auto) Neut # (Auto) Lymph # (Auto) [place] # (Auto) Eos # (Auto) Baso # (Auto) Neutrophils % (Manual) Band Neutrophils % Lymphocytes % (Manual) Monocytes % (Manual) Eosinophils % (Manual) Platelet Estimate Hypochromasia (manual) Poikilocytosis (manual Basophilic Stippling Anisocytosis (manual) Target Cells Tear Drop Cells Ovalocytes [place] Cells Sodium 131 L Potassium 3.9 Chloride 95 L Carbon Dioxide 31 H Anion Gap 9 L BUN 60 H Creatinine 0.9 Est GFR ( Amer) > 60 Est GFR (Non-Af Amer) 60 POC Glucose (mg/dL) 130 H Random Glucose 112 H Lactic Acid 1.6 Calcium 7.9 L Phosphorus 3.8 Magnesium 2.2 Total Bilirubin 1.3 AST 10 L D ALT 20 Alkaline Phosphatase 44 Total Protein 4.2 L Albumin 2.1 L Globulin 2.2 Albumin/Globulin Ratio 1.0 04/14/18 11:16 WBC RBC Hgb Hct MCV MCH MCHC RDW Plt Count MPV Neut % (Auto) Lymph % (Auto) [place] % (Auto) Eos % (Auto) Baso % (Auto) Neut # (Auto) Lymph # (Auto) [place] # (Auto) Eos # (Auto) Baso # (Auto) Neutrophils % (Manual) Band Neutrophils % Lymphocytes % (Manual) Monocytes % (Manual) Eosinophils % (Manual) Platelet Estimate Hypochromasia (manual) Poikilocytosis (manual Basophilic Stippling Anisocytosis (manual) Target Cells Tear Drop Cells Ovalocytes [place] Cells Sodium Potassium Chloride Carbon Dioxide Anion Gap BUN Creatinine Est GFR ( Amer) Est GFR (Non-Af Amer) POC Glucose (mg/dL) 142 H Random Glucose Lactic Acid Calcium Phosphorus Magnesium Total Bilirubin AST ALT Alkaline Phosphatase Total Protein Albumin Globulin Albumin/Globulin Ratio Critical Care Progress Note - Nutrition Nutrition: Nutrition Category Date Time Status Heart Healthy Diet [DIET] Diets 04/13/18 Lunch Active Assessment/Plan (1) Acute respiratory failure Current Visit: No Status: Acute (2) Atrial fibrillation and flutter Current Visit: No Status: Acute (3) CHF (congestive heart failure) Current Visit: No Status: Acute (4) Pleural effusion Current Visit: Yes Status: Acute Attending/Attestation - Attestation I have personally seen and examined this patient.: Yes I have fully participated in the care of the patient.: Yes I have reviewed all pertinent clinical information: Yes Notes (Text): 04/14/18 16:15 Patient seen and examined in the intensive care unit. No change in patient's condition Patient is off pressors Continue antibiotics Seen by surgery Patient is DNR/DNI
[2018-04-14] MEDS: (Novolin R) Insulin Human Regular 100 units/ml vial SC SCH ×4 (09:44→22:33)
[2018-04-14] MEDS: Silver Sulfadiazine 1% Cream (20 gm) TOP SCH ×2 (09:46→18:16)
[2018-04-14] MEDS: Bacitracin Ointment 30 GM TUBE TOP SCH ×2 (09:46→18:16)
[2018-04-14] MEDS: Fluconazole IV 100mg/50 ml NS 50 ML IVPB SCH (09:47)
[2018-04-14] MEDS: Pantoprazole 40 mg Susp UD PO SCH (11:29)
[2018-04-14] MEDS: Multiple Vitamins Oral Solution PO SCH (11:30)
--- NOTE | 2018-04-14 13:58 | CP.PCM.PN ---
Subjective - Date & Time of Evaluation Date of Evaluation: 04/14/18 Time of Evaluation: 14:00 - Subjective Subjective: Podiatry Progress Note- Dr. Shah 82 yo female seen and evaluated at bedside for right posterior leg superficial ulceration and bilateral lower extremity swelling. Patient is resting comfortably in bed and in NAD. Daugther at bedside during encounter. Denies of pain. She denies any acute pedal complaints at this time. Denies N/V/F/CP. Objective - Vital Signs/Intake and Output Vital Signs (last 24 hours): Temp Pulse Resp BP Pulse Ox 98.3 F 88 14 109/80 100 04/14/18 12:00 04/14/18 13:00 04/14/18 13:00 04/14/18 12:07 04/14/18 12:45 Intake and Output: 04/14/18 04/14/18 06:59 18:59 Intake Total 757.5 287.5 Output Total 415 340 Balance 342.5 -52.5 - Medications Medications: Current Medications Acetaminophen (Tylenol 325mg Tab) 650 mg PO Q6 PRN PRN Reason: Fever >100.4 F Last Admin: 04/02/18 04:36 Dose: 650 mg Albuterol/Ipratropium (Duoneb 3 Mg/0.5 Mg (3 Ml) Ud) 3 ml INH RQ6 [facility] Last Admin: 04/14/18 02:54 Dose: Not Given Amiodarone HCl (Cordarone) 200 mg PO DAILY [facility] Last Admin: 04/14/18 11:32 Dose: 200 mg Apixaban (Eliquis) 5 mg PO BID [facility] Last Admin: 04/11/18 17:28 Dose: 5 mg Ascorbic Acid (Vitamin C 500 Mg Tab) 500 mg PO BID [facility] Last Admin: 04/14/18 09:47 Dose: Not Given Bacitracin (Bacitracin) 0 gm TOP BID [facility] Last Admin: 04/14/18 09:46 Dose: 1 applic Fluconazole (Diflucan Iv 100 Mg/50 Ml Ns) 50 mls @ 100 mls/hr IVPB DAILY [facility]; Protocol Last Admin: 04/14/18 09:47 Dose: 100 mls/hr Cefepime HCl (Maxipime Iv 1 Gm Premix) 1 gm in 50 mls @ 100 mls/hr IVPB Q12H [facility]; Protocol Last Admin: 04/14/18 05:30 Dose: 100 mls/hr Piperacillin Sod/Tazobactam Sod (Zosyn 3.375 Gm Iv Premix) 3.375 gm in 50 mls @ 100 mls/hr IVPB Q6H [facility]; Protocol Last Admin: 04/14/18 12:47 Dose: 100 mls/hr Norepinephrine Bitartrate 4 mg (/ Dextrose) 254 mls @ 15.24 mls/hr IV .[id number] PRN; Protocol PRN Reason: TITRATE PER MD ORDER Last Titration: 04/14/18 06:30 Dose: 1.96 mcg/min, 7.5 mls/hr Insulin Glargine (Lantus) 5 unit SC HS [facility] Last Admin: 04/13/18 22:59 Dose: 5 units Insulin Human Regular (Novolin R) 6 unit SC ACHS [facility] Last Admin: 04/14/18 11:29 Dose: Not Given Lactulose (Enulose) 20 gm PO HS PRN PRN Reason: Constipation Last Admin: 04/12/18 10:21 Dose: 20 gm Morphine Sulfate (Morphine) 2 mg IVP Q4 PRN PRN Reason: Pain, moderate (4-7) Multivitamins/Vitamin C (Multi-Delyn Liquid) 5 ml PO DAILY [facility] Last Admin: 04/14/18 11:30 Dose: 5 ml Nystatin (Nystop Topical Powder) 1 applic TOP BID [facility] Last Admin: 04/14/18 09:46 Dose: 1 applic Pantoprazole Sodium (Protonix Susp) 40 mg PO DAILY [facility] Last Admin: 04/14/18 11:29 Dose: 40 mg Silver Sulfadiazine (Silvadene 1% 20 Gm) 0 ea TOP BID [facility] Last Admin: 04/14/18 09:46 Dose: 1 applic Zinc Sulfate (Zinc Sulfate 220 Mg Cap) 220 mg PO DAILY [facility] Last Admin: 04/14/18 11:29 Dose: 220 mg - Labs Labs: 04/14/18 06:35 04/14/18 06:35 PT 23.1 SECONDS (9.7-12.2) H 04/13/18 06:10 INR 2.1 04/13/18 06:10 APTT 37 SECONDS (21-34) H 04/13/18 06:10 - Constitutional Appears: Well, Non-toxic, No Acute Distress - Extremities Exam Additional comments: Lower extremity focused exam: Vasc: Pulses faintly palpable, secondary to edema, Temp gradient cool to cool from proximal to distal. CFT <3 secs x 10, +1 edema appreciated from tibial tube rosity to dorsal aspect of feet bilaterally, swelling improved Ortho: No tenderness to palpation noted to lower extremity B/L DERM: Dry, flaky, hyperkeratotic skin noted to bilateral LE distal to tibial tuberosity. Mild superficial ulceration appreciated to the posterior aspect of the R leg, serous drainage appreciated. No purulence, no cellulities, no tunneling, no tracking, no clinical signs of infection at this time. Neuro: Gross and protective sensation intact B/L - Neurological Exam Neurological Exam: Alert, Awake - Psychiatric Exam Psychiatric exam: Normal Affect, Normal Mood Assessment and Plan - Assessment and Plan (Free Text) Assessment: 82 yo female seen and evaluated at bedside for right posterior leg superficial ulceration with LE swelling- stable, no clinical signs of infection Plan: Patient seen and evaluated with attending Dr. Shah No leukocytosis, afebrile Wound cleansed, dressed with DSD, LEIDY B/L Continue multipodus boots at all times in bed Will continue to follow while in house Stable per podiatry standpoint Will f/u with Dr. Shah upon discharge
[2018-04-14] MEDS: (Lantus) Insulin Glargine, Recombinant SC SCH (22:32)
[2018-04-15] MEDS: Piperacill/Tazo 3.375gm in Dex 3.375 GM/50 ML BAG IVPB SCH ×4 (00:22→17:27)
[2018-04-15] MEDS: Albuterol-Ipratrop 3 mg / 0.5 (3 ml) UD INH SCH ×5 (03:00→20:22)
[2018-04-15] MEDS: Cefepime IV 1 gm in Dextrose 1 GM/50 ML BAG IVPB SCH ×2 (03:53→16:51)
[2018-04-15 06:44] LABS: BASO % 0.4 % (0.0-2.0); EOS % 0.2 % (0.0-4.0); HEMOGLOBIN 8.9 g/dL (11.0-16.0); LYMPH # 0.1 K/uL (1.0-4.3); LYMPH % 2.3 % (20.0-40.0); MEAN CELL VOLUME 84.8 fL (81.0-99.0); MEAN CORPUSCULAR HEMOGLOBIN 27.2 pg (27.0-31.0); MEAN CORPUSCULAR HGB CONC 32.1 g/dL (33.0-37.0); MONO # 0.1 K/uL (0.0-0.8); MONO % 2.3 % (0.0-10.0); NEUT # 5.2 K/uL (1.8-7.0); NEUT % 94.8 % (50.0-75.0); PLATELET COUNT 55 K/uL (130-400); RBC 3.29 Mil/uL (3.80-5.20); RED CELL DISTRIBUTION WIDTH 24.9 % (11.5-14.5); WHITE BLOOD COUNT 5.5 K/uL (4.8-10.8)
[2018-04-15 07:03] LABS: ALB/GLOB RATIO 0.8 (1.0-2.1); ALBUMIN 1.7 g/dL (3.5-5.0); CALCIUM 7.7 mg/dl (8.6-10.4)
[2018-04-15] MEDS: (Novolin R) Insulin Human Regular 100 units/ml vial SC SCH ×4 (07:30→22:00)
--- NOTE | 2018-04-15 08:26 | CP.PCM.PN ---
<Allen Kapadia - Last Filed: 04/15/18 08:24> Subjective - Date & Time of Evaluation Date of Evaluation: 04/15/18 Time of Evaluation: 07:10 - Subjective Subjective: General Surgery Pt seen and examined. Complaining of SOB, ICU planning for BIPAP. Tolerated enama and puree diet yesterday. Off pressors. Still with R side abdominal pain. Objective - Vital Signs/Intake and Output Vital Signs (last 24 hours): Temp Pulse Resp BP Pulse Ox 98.2 F 90 17 95/70 L 99 04/15/18 04:00 04/15/18 07:00 04/15/18 07:00 04/15/18 07:00 04/15/18 07:00 Intake and Output: 04/15/18 04/15/18 06:59 18:59 Intake Total 400 0 Output Total 395 30 Balance 5 -30 - Medications Medications: Current Medications Acetaminophen (Tylenol 325mg Tab) 650 mg PO Q6 PRN PRN Reason: Fever >100.4 F Last Admin: 04/02/18 04:36 Dose: 650 mg Albuterol/Ipratropium (Duoneb 3 Mg/0.5 Mg (3 Ml) Ud) 3 ml INH RQ6 [facility] Last Admin: 04/15/18 08:19 Dose: Not Given Amiodarone HCl (Cordarone) 200 mg PO DAILY [facility] Last Admin: 04/14/18 11:32 Dose: 200 mg Apixaban (Eliquis) 5 mg PO BID [facility] Last Admin: 04/11/18 17:28 Dose: 5 mg Ascorbic Acid (Vitamin C 500 Mg Tab) 500 mg PO BID [facility] Last Admin: 04/14/18 18:20 Dose: 500 mg Bacitracin (Bacitracin) 0 gm TOP BID [facility] Last Admin: 04/14/18 18:16 Dose: 1 applic Fluconazole (Diflucan Iv 100 Mg/50 Ml Ns) 50 mls @ 100 mls/hr IVPB DAILY [facility]; P rotocol Last Admin: 04/14/18 09:47 Dose: 100 mls/hr Cefepime HCl (Maxipime Iv 1 Gm Premix) 1 gm in 50 mls @ 100 mls/hr IVPB Q12H [facility]; Protocol Last Admin: 04/15/18 03:53 Dose: 100 mls/hr Piperacillin Sod/Tazobactam Sod (Zosyn 3.375 Gm Iv Premix) 3.375 gm in 50 mls @ 100 mls/hr IVPB Q6H [facility]; Protocol Last Admin: 04/15/18 06:40 Dose: 100 mls/hr Norepinephrine Bitartrate 4 mg (/ Dextrose) 254 mls @ 15.24 mls/hr IV .[id number] PRN; Protocol PRN Reason: TITRATE PER MD ORDER Last Titration: 04/14/18 14:33 Dose: 0 mcg/min, 0 mls/hr Insulin Glargine (Lantus) 5 unit SC HS [facility] Last Admin: 04/14/18 22:32 Dose: 5 units Insulin Human Regular (Novolin R) 6 unit SC ACHS [facility] Last Admin: 04/14/18 22:33 Dose: Not Given Lactulose (Enulose) 20 gm PO HS PRN PRN Reason: Constipation Last Admin: 04/14/18 22:31 Dose: 20 gm Morphine Sulfate (Morphine) 2 mg IVP Q4 PRN PRN Reason: Pain, moderate (4-7) Multivitamins/Vitamin C (Multi-Delyn Liquid) 5 ml PO DAILY [facility] Last Admin: 04/14/18 11:30 Dose: 5 ml Nystatin (Nystop Topical Powder) 1 applic TOP BID [facility] Last Admin: 04/14/18 18:15 Dose: 1 applic Pantoprazole Sodium (Protonix Susp) 40 mg PO DAILY [facility] Last Admin: 04/14/18 11:29 Dose: 40 mg Silver Sulfadiazine (Silvadene 1% 20 Gm) 0 ea TOP BID [facility] Last Admin: 04/14/18 18:16 Dose: 1 applic Zinc Sulfate (Zinc Sulfate 220 Mg Cap) 220 mg PO DAILY [facility] Last Admin: 04/14/18 11:29 Dose: 220 mg - Labs Labs: 04/15/18 06:41 04/15/18 06:41 PT 23.1 SECONDS (9.7-12.2) H 04/13/18 06:10 INR 2.1 04/13/18 06:10 APTT 37 SECONDS (21-34) H 04/13/18 06:10 - Constitutional Appears: Agitated, Chronically Ill - Head Exam Head Exam: ATRAUMATIC, NORMOCEPHALIC - Eye Exam Eye Exam: EOMI. absent: Scleral icterus - Respiratory Exam Respiratory Exam: NORMAL BREATHING PATTERN. absent: Respiratory Distress - Cardiovascular Exam Cardiovascular Exam: RRR, +S1, +S2 - GI/Abdominal Exam GI & Abdominal Exam: Soft, Tenderness (in R side). absent: Distended, Firm, Guarding, Rigid, Rebound - Neurological Exam Neurological Exam: Alert, Awake - Skin Skin Exam: Dry, Warm Assessment and Plan - Assessment and Plan (Free Text) Assessment: 82F w/ suspected perforated viscous w/ free air visualized on CT scan Plan: F/U repeat CT today No immediate surgical intervention at this time - patient and family understand risks of surgery, if warranted Continue conservative medical management Monitor H&H D/W Dr. Heidi Kapadia PGY4 <Milad Gordon B - Last Filed: 04/22/18 08:55> Objective - Vital Signs/Intake and Output Vital Signs (last 24 hours): Temp Pulse Resp BP Pulse Ox 97 F L 47 L 11 L 63/30 L 97 04/21/18 20:00 04/21/18 21:01 04/21/18 21:01 04/21/18 21:01 04/21/18 17:00 Intake and Output: 04/22/18 04/22/18 06:59 18:59 Intake Total 15 Balance 15 - Labs Labs: 04/21/18 05:47 04/21/18 05:47 PT 23.5 SECONDS (9.7-12.2) H 04/20/18 06:32 INR 2.1 04/20/18 06:32 APTT 52 SECONDS (21-34) H D 04/20/18 06:32 Attending/Attestation - Attestation I have personally seen and examined this patient.: Yes I have fully participated in the care of the patient.: Yes I have reviewed all pertinent clinical information, including history, physical exam and plan: Yes Notes (Text): Pt was seen and examined at bedside Pt is clinically stable IV antibiotics NPO, IVF NG to LIS Very poor prognosis c.w ICU management Plan d.w ICU attending and family in detail Risk and benefit explained in detail.
[2018-04-15 08:59] LABS: LYMPHOCYTE 2 % (20-40); MONOCYTE 2 % (0-10); NEUTROPHIL 96 % (50-75); PLATELET ESTIMATE DECREASED (NORMAL); TOTAL CELLS COUNTED 100
[2018-04-15] MEDS ORDERED: Iohexol 240 (50 ml) PO ONE (09:00)
[2018-04-15 09:01] LABS: ANISOCYTOSIS SLIGHT; BURR CELLS SLIGHT; HYPOCHROMIC MODERATE; MICROCYTOSIS SLIGHT; OVALOCYTES SLIGHT; POIKILOCYTOSIS SLIGHT; TARGET CELLS SLIGHT
[2018-04-15] MEDS: Pantoprazole 40 mg Susp UD PO SCH (09:11)
[2018-04-15] MEDS: Silver Sulfadiazine 1% Cream (20 gm) TOP SCH (09:12)
[2018-04-15] MEDS: Bacitracin Ointment 30 GM TUBE TOP SCH ×2 (09:13→17:46)
[2018-04-15] MEDS: Fluconazole IV 100mg/50 ml NS 50 ML IVPB SCH (09:14)
[2018-04-15] MEDS: Multiple Vitamins Oral Solution PO SCH (10:53)
--- NOTE | 2018-04-15 13:05 | CP.CCUPN ---
<Margi Valenzuela - Last Filed: 04/15/18 12:58> CCU Subjective - Physician Review Subjective (Free Text): 04/14/18 08:38 Critical Care Progress Note for Dr. Valadez's service Patient seen and examined at bedside. Patient admitted to shortness of breath today and was put on bipaop, tolerating well. Patient denies fevers, chills, chest pain, sob, n/v, constipation or diarrhea, and dysuria. Critical Care Time Spent (in minutes): 35 CCU Objective - Vital Signs / Intake & Output Vital Signs (Last 4 hours): Vital Signs Temp Pulse Resp BP Pulse Ox 04/15/18 11:51 98.1 F 95 04/15/18 11:44 97 H 04/15/18 11:01 97 H 22 94/73 L 81 L 04/15/18 11:00 101 H 22 81 L 04/15/18 10:50 96/72 L 04/15/18 10:01 106 H 17 96/72 L 89 L 04/15/18 10:00 99 H 15 04/15/18 09:00 103 H 15 96/66 L 92 L Intake and Output (Last 8hrs): Intake & Output 04/14/18 04/15/18 04/15/18 22:59 06:59 14:59 Intake Total 440 300 490 Output Total 385 270 405 Balance 55 30 85 Weight 224 lb 3.2 oz Intake: Intake, IV Amount 100 150 150 Left Proximal Port 150 150 Internal Jugular Right arm mid line 100 Oral 340 150 340 Output: Chest Tube Drainage 50 Left Posterior Chest 50 Drainage 120 Left Lower Chest 120 Urine 265 270 355 Urethral ([place]) 265 270 355 Other: # Bowel Movements 0 0 0 - Physical Exam Head: Positive for: Atraumatic, Normocephalic, Other (central line in left IJ) Pupils: Positive for: PERRL Extroacular Muscles: Positive for: EOMI Conjunctiva: Positive for: Normal Mouth: Positive for: Moist Mucous Membranes Neck: Positive for: Normal Range of Motion. Negative for: JVD, Lymphadenopathy Respiratory/Chest: Positive for: Good Air Exchange, Decreased Breath Sounds. Negative for: Accessory Muscle Use, Wheezes, Tachypneic Cardiovascular: Positive for: Regular Rate and Rhythm, Normal S1, S2. Negative for: Murmurs, Irregular Rhythm Abdomen: Positive for: Normal Bowel Sounds, Other (umbilical hernia). Negative for: Tenderness, Distention, Peritoneal Signs, Rebound, Guarding Genitourinary/Pelvic Exam: Positive for: Other ([place] in place for strict Is/Os) Upper Extremity: Positive for: Normal Inspection, Edema. Negative for: Cyanosis Lower Extremity: Positive for: Normal Inspection, Edema Neurological: Positive for: GCS=15, Speech Normal Skin: Positive for: Dry, Normal Color, Other (chest tube in posterior left back, right foot ulcer, and sacral unstageable ulcer). Negative for: Diaphoretic Psychiatric: Positive for: Alert, Oriented x 3 - Medications Active Medications: Active Medications Generic Name Dose Route Start Last Admin Trade Name Freq PRN Reason Stop Dose Admin Acetaminophen 650 mg 03/23/18 15:59 04/02/18 04:36 Tylenol 325mg Tab PO 650 mg Q6 PRN Administration Fever >100.4 F Albuterol/Ipratropium 3 ml 04/02/18 14:00 04/15/18 08:19 Duoneb 3 Mg/0.5 Mg (3 Ml) Ud INH Not Given RQ6 KEV Amiodarone HCl 200 mg 03/23/18 16:45 04/15/18 09:11 Cordarone PO 200 mg DAILY KEV Administration Apixaban 5 mg 03/23/18 18:00 04/11/18 17:28 Eliquis PO 5 mg BID KEV Administration Ascorbic Acid 500 mg 04/02/18 10:00 04/15/18 09:11 Vitamin C 500 Mg Tab PO 500 mg BID KEV Administration Bacitracin 0 gm 04/01/18 18:00 04/15/18 09:13 Bacitracin TOP 1 applic BID KEV Administration Fluconazole 50 mls @ 100 mls/hr 03/27/18 10:00 04/15/18 09:14 Diflucan Iv 100 Mg/50 Ml Ns IVPB 100 mls/hr DAILY KEV Administration Protocol Cefepime HCl 1 gm in 50 mls @ 100 mls/hr 04/01/18 16:30 04/15/18 03:53 Maxipime Iv 1 Gm Premix IVPB 100 mls/hr Q12H KEV Administration Protocol Piperacillin Sod/Tazobactam Sod 3.375 gm in 50 mls @ 100 mls/hr 04/12/18 18:00 04/15/18 11:43 Zosyn 3.375 Gm Iv Premix IVPB 100 mls/hr Q6H KEV Administration Protocol Norepinephrine Bitartrate 4 mg 254 mls @ 15.24 mls/hr 04/12/18 18:52 04/14/18 14:33 / Dextrose IV 0 mcg/min .[id number] PRN 0 mls/hr TITRATE PER MD ORDER Titration Protocol 4 MCG/MIN Insulin Glargine 5 unit 04/11/18 22:00 04/14/18 22:32 Lantus SC 5 units HS KEV Administration Insulin Human Regular 6 unit 04/11/18 11:30 04/15/18 11:43 Novolin R SC Not Given ACHS KEV Lactulose 20 gm 03/30/18 19:13 04/14/18 22:31 Enulose PO 20 gm HS PRN Administration Constipation Morphine Sulfate 2 mg 04/14/18 09:08 Morphine IVP Q4 PRN Pain, moderate (4-7) Multivitamins/Vitamin C 5 ml 04/02/18 10:00 04/15/18 10:53 Multi-Delyn Liquid PO 5 ml DAILY KEV Administration Nystatin 1 applic 03/23/18 18:00 04/15/18 09:12 Nystop Topical Powder TOP 1 applic BID KEV Administration Pantoprazole Sodium 40 mg 03/27/18 10:00 04/15/18 09:11 Protonix Susp PO 40 mg DAILY KEV Administration Silver Sulfadiazine 0 ea 03/26/18 10:00 04/15/18 09:12 Silvadene 1% 20 Gm TOP 1 applic BID KEV Administration Zinc Sulfate 220 mg 04/02/18 10:00 04/15/18 09:11 Zinc Sulfate 220 Mg Cap PO 220 mg DAILY KEV Administration - Patient Studies Lab Studies: Lab Studies 04/15/18 04/15/18 04/15/18 Range/Units 07:32 06:41 06:41 WBC 5.5 (4.8-10.8) K/uL RBC 3.29 L (3.80-5.20) Mil/uL Hgb 8.9 L (11.0-16.0) g/dL Hct 27.9 L (34.0-47.0) % MCV 84.8 (81.0-99.0) fL MCH 27.2 (27.0-31.0) pg MCHC 32.1 L (33.0-37.0) g/dL RDW 24.9 H (11.5-14.5) % Plt Count 55 L (130-400) K/uL MPV 11.0 (7.2-11.7) fL Neut % (Auto) 94.8 H (50.0-75.0) % Lymph % (Auto) 2.3 L (20.0-40.0) % [place] % (Auto) 2.3 (0.0-10.0) % Eos % (Auto) 0.2 (0.0-4.0) % Baso % (Auto) 0.4 (0.0-2.0) % Neut # (Auto) 5.2 (1.8-7.0) K/uL Lymph # (Auto) 0.1 L (1.0-4.3) K/uL [place] # (Auto) 0.1 (0.0-0.8) K/uL Eos # (Auto) 0.0 (0.0-0.7) K/uL Baso # (Auto) 0.0 (0.0-0.2) K/uL Neutrophils % (Manual) 96 H (50-75) % Lymphocytes % (Manual) 2 L (20-40) % Monocytes % (Manual) 2 (0-10) % Platelet Estimate Decreased L (NORMAL) Hypochromasia (manual) Moderate Poikilocytosis (manual Slight Anisocytosis (manual) Slight Microcytosis (manual) Slight Macrocytosis (manual) Slight Target Cells Slight Ovalocytes Slight [place] Cells Slight Sodium 134 (132-148) mmol/L Potassium 3.6 (3.6-5.2) mmol/L Chloride 96 L (98-107) mmol/L Carbon Dioxide 34 H (22-30) mmol/L Anion Gap 7 L (10-20) BUN 60 H (7-17) mg/dL Creatinine 1.1 (0.7-1.2) mg/dL Est GFR ( Amer) 57 Est GFR (Non-Af Amer) 47 POC Glucose (mg/dL) 92 (65-110) mg/dL Random Glucose 86 D (65-105) mg/dL Calcium 7.7 L (8.6-10.4) mg/dl Phosphorus 3.9 (2.5-4.5) mg/dL Magnesium 2.2 (1.6-2.3) mg/dL Total Bilirubin 1.2 (0.2-1.3) mg/dL AST 7 L D (14-36) U/L ALT 21 (9-52) U/L Alkaline Phosphatase 41 (38-126) U/L Total Protein 3.9 L (6.3-8.3) g/dL Albumin 1.7 L (3.5-5.0) g/dL Globulin 2.2 (2.2-3.9) gm/dL Albumin/Globulin Ratio 0.8 L (1.0-2.1) 04/14/18 04/14/18 Range/Units 21:20 16:32 WBC (4.8-10.8) K/uL RBC (3.80-5.20) Mil/uL Hgb (11.0-16.0) g/dL Hct (34.0-47.0) % MCV (81.0-99.0) fL MCH (27.0-31.0) pg MCHC (33.0-37.0) g/dL RDW (11.5-14.5) % Plt Count (130-400) K/uL MPV (7.2-11.7) fL Neut % (Auto) (50.0-75.0) % Lymph % (Auto) (20.0-40.0) % [place] % (Auto) (0.0-10.0) % Eos % (Auto) (0.0-4.0) % Baso % (Auto) (0.0-2.0) % Neut # (Auto) (1.8-7.0) K/uL Lymph # (Auto) (1.0-4.3) K/uL [place] # (Auto) (0.0-0.8) K/uL Eos # (Auto) (0.0-0.7) K/uL Baso # (Auto) (0.0-0.2) K/uL Neutrophils % (Manual) (50-75) % Lymphocytes % (Manual) (20-40) % Monocytes % (Manual) (0-10) % Platelet Estimate (NORMAL) Hypochromasia (manual) Poikilocytosis (manual Anisocytosis (manual) Microcytosis (manual) Macrocytosis (manual) Target Cells Ovalocytes [place]ini Cells Sodium (132-148) mmol/L Potassium (3.6-5.2) mmol/L Chloride (98-107) mmol/L Carbon Dioxide (22-30) mmol/L Anion Gap (10-20) BUN (7-17) mg/dL Creatinine (0.7-1.2) mg/dL Est GFR ( Amer) Est GFR (Non-Af Amer) POC Glucose (mg/dL) 125 H 138 H (65-110) mg/dL Random Glucose (65-105) mg/dL Calcium (8.6-10.4) mg/dl Phosphorus (2.5-4.5) mg/dL Magnesium (1.6-2.3) mg/dL Total Bilirubin (0.2-1.3) mg/dL AST (14-36) U/L ALT (9-52) U/L Alkaline Phosphatase (38-126) U/L Total Protein (6.3-8.3) g/dL Albumin (3.5-5.0) g/dL Globulin (2.2-3.9) gm/dL Albumin/Globulin Ratio (1.0-2.1) Laboratory Results - last 24 hr 04/14/18 04/14/18 04/15/18 16:32 21:20 06:41 WBC 5.5 RBC 3.29 L Hgb 8.9 L Hct 27.9 L MCV 84.8 MCH 27.2 MCHC 32.1 L RDW 24.9 H Plt Count 55 L MPV 11.0 Neut % (Auto) 94.8 H Lymph % (Auto) 2.3 L [place] % (Auto) 2.3 Eos % (Auto) 0.2 Baso % (Auto) 0.4 Neut # (Auto) 5.2 Lymph # (Auto) 0.1 L [place] # (Auto) 0.1 Eos # (Auto) 0.0 Baso # (Auto) 0.0 Neutrophils % (Manual) 96 H Lymphocytes % (Manual) 2 L Monocytes % (Manual) 2 Platelet Estimate Decreased L Hypochromasia (manual) Moderate Poikilocytosis (manual Slight Anisocytosis (manual) Slight Microcytosis (manual) Slight Macrocytosis (manual) Slight Target Cells Slight Ovalocytes Slight [place] Cells Slight Sodium Potassium Chloride Carbon Dioxide Anion Gap BUN Creatinine Est GFR ( Amer) Est GFR (Non-Af Amer) POC Glucose (mg/dL) 138 H 125 H Random Glucose Calcium Phosphorus Magnesium Total Bilirubin AST ALT Alkaline Phosphatase Total Protein Albumin Globulin Albumin/Globulin Ratio 04/15/18 04/15/18 06:41 07:32 WBC RBC Hgb Hct MCV MCH MCHC RDW Plt Count MPV Neut % (Auto) Lymph % (Auto) [place] % (Auto) Eos % (Auto) Baso % (Auto) Neut # (Auto) Lymph # (Auto) [place] # (Auto) Eos # (Auto) Baso # (Auto) Neutrophils % (Manual) Lymphocytes % (Manual) Monocytes % (Manual) Platelet Estimate Hypochromasia (manual) Poikilocytosis (manual Anisocytosis (manual) Microcytosis (manual) Macrocytosis (manual) Target Cells Ovalocytes [place] Cells Sodium 134 Potassium 3.6 Chloride 96 L Carbon Dioxide 34 H Anion Gap 7 L BUN 60 H Creatinine 1.1 Est GFR ( Amer) 57 Est GFR (Non-Af Amer) 47 POC Glucose (mg/dL) 92 Random Glucose 86 D Calcium 7.7 L Phosphorus 3.9 Magnesium 2.2 Total Bilirubin 1.2 AST 7 L D ALT 21 Alkaline Phosphatase 41 Total Protein 3.9 L Albumin 1.7 L Globulin 2.2 Albumin/Globulin Ratio 0.8 L Fingerstick Blood Sugar Results: 91 Review of Systems - Review of Systems Review of Systems: 12 point ROS obtained and noted asi n HPI Critical Care Progress Note - Extremities/Vascular Does the Patient have a Central Venous Catheter?: Yes Insertion Site: Internal Jugular Vein Does the Patient need a Central Venous Catheter?: Yes - Prophylaxis GI Prophylaxis GI: PPI - Nutrition Nutrition: Nutrition Category Date Time Status NPO Diet [DIET] Diets 04/15/18 Breakfast Active Assessment/Plan - Assessment and Plan (Free Text) Assessment: Patient is a 82 yo female w/ PMH of CHF, HTN, Afib on AC admitted for bilateral pleural effusions and pneumonia. Patient was intubated and extubated. Patient has recurrent pleural effusions s/p thoracentesis and chest tube placement. Patient on CT abd/pelvis showed perforation with free air. Poor surgical candidate. Patient made DNR/DNI. Hospice denied inpatient care. Neuro Awake, Alerted, Oriented No acute issues Pulm Duoneb Cefepime/Fluconazole/Zosyn (start dates 04/01 and 03/27 and 04/12/18 respectively); Further management as per ID s/p thoracentesis 1100ml fluid drained- right s/p chest tube insertion on 04/07/18; further management as per pumonology for when to remove Continue aggressive pulm toilet; Pending INR for right thoracentesis with IR CV Amiodarone Levo drip- titrate as needed Eliquis held GI CT abdomen/pelvis shows free air, surgery was consulted, spoke with patient family stated patient was poor surgical candidate and would likely not survive OR Repeat CT abd/pending; further managment per scan Protonix; Lactulos; Fleet enema x1 given 1-9; patient had multi bowel movements As per dietary ensure will be three times a day Heme Elqiuis-held no acute issues Endo ACHS; Glargine; Insulin regular Renal Zinc/Multivitamins/Ascorbic acid Repeat CMP in AM Derm Podiatry following for foot ulcer on right- Nystatin, multipodus boots Wound care for unstagable sacral ulcer and buttock ulcer- recommendations are continued as per wound care- bacitracin/medihoney Continue to monitor ID Cefepime/Fluconazole/Zosyn(started on 04/01, 03/27, 04/12/18) + trach asp for yeast species; + urine cx for yeast species new figueredo cx negative GI ppx: Protonix DVT ppx: Elquis 5mg po bid- held, SCDs not tolerable Disposition: Repeat CT abdomen/pevis; IR for thoracentesis; continue medical management as per ICU PGY-1 Margi Valenzuela Case d/w Dr. Valadez <Evan Valadez - Last Filed: 04/15/18 20:05> CCU Objective - Vital Signs / Intake & Output Vital Signs (Last 4 hours): Vital Signs Pulse Resp BP 04/15/18 18:01 112 H 26 H 117/87 04/15/18 18:00 102 H 22 04/15/18 17:37 104 H 04/15/18 17:01 101 H 25 H 100/76 04/15/18 17:00 102 H 24 Intake and Output (Last 8hrs): Intake & Output 04/15/18 04/15/1819 06:59 14:59 22:59 Intake Total 300 740 50 Output Total 270 580 185 Balance 30 160 -135 Weight 224 lb 3.2 oz Intake: Intake, IV Amount 150 200 Left Proximal Port 150 200 Internal Jugular Oral 150 540 50 Output: Chest Tube Drainage 50 Left Posterior Chest 50 Urine 270 530 185 Urethral ([place]) 270 530 185 Other: # Bowel Movements 0 0 0 - Medications Active Medications: Active Medications Generic Name Dose Route Start Last Admin Trade Name Freq PRN Reason Stop Dose Admin Acetaminophen 650 mg 03/23/18 15:59 04/02/18 04:36 Tylenol 325mg Tab PO 650 mg Q6 PRN Administration Fever >100.4 F Albuterol/Ipratropium 3 ml 04/02/18 14:00 04/15/18 13:39 Duoneb 3 Mg/0.5 Mg (3 Ml) Ud INH 3 ml RQ6 KEV Administration Amiodarone HCl 200 mg 03/23/18 16:45 04/15/18 09:11 Cordarone PO 200 mg DAILY KEV Administration Apixaban 5 mg 03/23/18 18:00 04/11/18 17:28 Eliquis PO 5 mg BID KEV Administration Ascorbic Acid 500 mg 04/02/18 10:00 04/15/18 17:26 Vitamin C 500 Mg Tab PO 500 mg BID KEV Administration Bacitracin 0 gm 04/01/18 18:00 04/15/18 09:13 Bacitracin TOP 1 applic BID KEV Administration Fluconazole 50 mls @ 100 mls/hr 03/27/18 10:00 04/15/18 09:14 Diflucan Iv 100 Mg/50 Ml Ns IVPB 100 mls/hr DAILY KEV Administration Protocol Cefepime HCl 1 gm in 50 mls @ 100 mls/hr 04/01/18 16:30 04/15/18 16:51 Maxipime Iv 1 Gm Premix IVPB 100 mls/hr Q12H KEV Administration Protocol Piperacillin Sod/Tazobactam Sod 3.375 gm in 50 mls @ 100 mls/hr 04/12/18 18:00 04/15/18 17:27 Zosyn 3.375 Gm Iv Premix IVPB 100 mls/hr Q6H KEV Administration Protocol Norepinephrine Bitartrate 4 mg 254 mls @ 15.24 mls/hr 04/12/18 18:52 04/14/18 14:33 / Dextrose IV 0 mcg/min .[id number] PRN 0 mls/hr TITRATE PER MD ORDER Titration Protocol 4 MCG/MIN Insulin Glargine 5 unit 04/11/18 22:00 04/14/18 22:32 Lantus SC 5 units HS KEV Administration Insulin Human Regular 6 unit 04/11/18 11:30 04/15/18 16:52 Novolin R SC Not Given ACHS KEV Lactulose 20 gm 03/30/18 19:13 04/14/18 22:31 Enulose PO 20 gm HS PRN Administration Constipation Morphine Sulfate 2 mg 04/14/18 09:08 04/15/18 17:30 Morphine IVP 2 mg Q4 PRN Administration Pain, moderate (4-7) Multivitamins/Vitamin C 5 ml 04/02/18 10:00 04/15/18 10:53 Multi-Delyn Liquid PO 5 ml DAILY KEV Administration Nystatin 1 applic 03/23/18 18:00 04/15/18 09:12 Nystop Topical Powder TOP 1 applic BID KEV Administration Pantoprazole Sodium 40 mg 03/27/18 10:00 04/15/18 09:11 Protonix Susp PO 40 mg DAILY KEV Administration Silver Sulfadiazine 0 ea 03/26/18 10:00 04/15/18 09:12 Silvadene 1% 20 Gm TOP 1 applic BID KEV Administration Zinc Sulfate 220 mg 04/02/18 10:00 04/15/18 09:11 Zinc Sulfate 220 Mg Cap PO 220 mg DAILY KEV Administration - Patient Studies Lab Studies: Lab Studies 04/15/18 04/15/18 04/15/18 Range/Units 16:45 11:20 07:32 WBC (4.8-10.8) K/uL RBC (3.80-5.20) Mil/uL Hgb (11.0-16.0) g/dL Hct (34.0-47.0) % MCV (81.0-99.0) fL MCH (27.0-31.0) pg MCHC (33.0-37.0) g/dL RDW (11.5-14.5) % Plt Count (130-400) K/uL MPV (7.2-11.7) fL Neut % (Auto) (50.0-75.0) % Lymph % (Auto) (20.0-40.0) % [place] % (Auto) (0.0-10.0) % Eos % (Auto) (0.0-4.0) % Baso % (Auto) (0.0-2.0) % Neut # (Auto) (1.8-7.0) K/uL Lymph # (Auto) (1.0-4.3) K/uL [place] # (Auto) (0.0-0.8) K/uL Eos # (Auto) (0.0-0.7) K/uL Baso # (Auto) (0.0-0.2) K/uL Neutrophils % (Manual) (50-75) % Lymphocytes % (Manual) (20-40) % Monocytes % (Manual) (0-10) % Platelet Estimate (NORMAL) Hypochromasia (manual) Poikilocytosis (manual Anisocytosis (manual) Microcytosis (manual) Macrocytosis (manual) Target Cells Ovalocytes [place] Cells Sodium (132-148) mmol/L Potassium (3.6-5.2) mmol/L Chloride (98-107) mmol/L Carbon Dioxide (22-30) mmol/L Anion Gap (10-20) BUN (7-17) mg/dL Creatinine (0.7-1.2) mg/dL Est GFR ( Amer) Est GFR (Non-Af Amer) POC Glucose (mg/dL) 80 91 92 (65-110) mg/dL Random Glucose (65-105) mg/dL Calcium (8.6-10.4) mg/dl Phosphorus (2.5-4.5) mg/dL Magnesium (1.6-2.3) mg/dL Total Bilirubin (0.2-1.3) mg/dL AST (14-36) U/L ALT (9-52) U/L Alkaline Phosphatase (38-126) U/L Total Protein (6.3-8.3) g/dL Albumin (3.5-5.0) g/dL Globulin (2.2-3.9) gm/dL Albumin/Globulin Ratio (1.0-2.1) 04/15/18 04/15/18 04/14/18 Range/Units 06:41 06:41 21:20 WBC 5.5 (4.8-10.8) K/uL RBC 3.29 L (3.80-5.20) Mil/uL Hgb 8.9 L (11.0-16.0) g/dL Hct 27.9 L (34.0-47.0) % MCV 84.8 (81.0-99.0) fL MCH 27.2 (27.0-31.0) pg MCHC 32.1 L (33.0-37.0) g/dL RDW 24.9 H (11.5-14.5) % Plt Count 55 L (130-400) K/uL MPV 11.0 (7.2-11.7) fL Neut % (Auto) 94.8 H (50.0-75.0) % Lymph % (Auto) 2.3 L (20.0-40.0) % [place] % (Auto) 2.3 (0.0-10.0) % Eos % (Auto) 0.2 (0.0-4.0) % Baso % (Auto) 0.4 (0.0-2.0) % Neut # (Auto) 5.2 (1.8-7.0) K/uL Lymph # (Auto) 0.1 L (1.0-4.3) K/uL [place] # (Auto) 0.1 (0.0-0.8) K/uL Eos # (Auto) 0.0 (0.0-0.7) K/uL Baso # (Auto) 0.0 (0.0-0.2) K/uL Neutrophils % (Manual) 96 H (50-75) % Lymphocytes % (Manual) 2 L (20-40) % Monocytes % (Manual) 2 (0-10) % Platelet Estimate Decreased L (NORMAL) Hypochromasia (manual) Moderate Poikilocytosis (manual Slight Anisocytosis (manual) Slight Microcytosis (manual) Slight Macrocytosis (manual) Slight Target Cells Slight Ovalocytes Slight [place] Cells Slight Sodium 134 (132-148) mmol/L Potassium 3.6 (3.6-5.2) mmol/L Chloride 96 L (98-107) mmol/L Carbon Dioxide 34 H (22-30) mmol/L Anion Gap 7 L (10-20) BUN 60 H (7-17) mg/dL Creatinine 1.1 (0.7-1.2) mg/dL Est GFR ( Amer) 57 Est GFR (Non-Af Amer) 47 POC Glucose (mg/dL) 125 H (65-110) mg/dL Random Glucose 86 D (65-105) mg/dL Calcium 7.7 L (8.6-10.4) mg/dl Phosphorus 3.9 (2.5-4.5) mg/dL Magnesium 2.2 (1.6-2.3) mg/dL Total Bilirubin 1.2 (0.2-1.3) mg/dL AST 7 L D (14-36) U/L ALT 21 (9-52) U/L Alkaline Phosphatase 41 (38-126) U/L Total Protein 3.9 L (6.3-8.3) g/dL Albumin 1.7 L (3.5-5.0) g/dL Globulin 2.2 (2.2-3.9) gm/dL Albumin/Globulin Ratio 0.8 L (1.0-2.1) Laboratory Results - last 24 hr 04/14/18 04/15/18 04/15/18 21:20 06:41 06:41 WBC 5.5 RBC 3.29 L Hgb 8.9 L Hct 27.9 L MCV 84.8 MCH 27.2 MCHC 32.1 L RDW 24.9 H Plt Count 55 L MPV 11.0 Neut % (Auto) 94.8 H Lymph % (Auto) 2.3 L [place] % (Auto) 2.3 Eos % (Auto) 0.2 Baso % (Auto) 0.4 Neut # (Auto) 5.2 Lymph # (Auto) 0.1 L [place] # (Auto) 0.1 Eos # (Auto) 0.0 Baso # (Auto) 0.0 Neutrophils % (Manual) 96 H Lymphocytes % (Manual) 2 L Monocytes % (Manual) 2 Platelet Estimate Decreased L Hypochromasia (manual) Moderate Poikilocytosis (manual Slight Anisocytosis (manual) Slight Microcytosis (manual) Slight Macrocytosis (manual) Slight Target Cells Slight Ovalocytes Slight [place] Cells Slight Sodium 134 Potassium 3.6 Chloride 96 L Carbon Dioxide 34 H Anion Gap 7 L BUN 60 H Creatinine 1.1 Est GFR ( Amer) 57 Est GFR (Non-Af Amer) 47 POC Glucose (mg/dL) 125 H Random Glucose 86 D Calcium 7.7 L Phosphorus 3.9 Magnesium 2.2 Total Bilirubin 1.2 AST 7 L D ALT 21 Alkaline Phosphatase 41 Total Protein 3.9 L Albumin 1.7 L Globulin 2.2 Albumin/Globulin Ratio 0.8 L 04/15/18 04/15/18 04/15/18 07:32 11:20 16:45 WBC RBC Hgb Hct MCV MCH MCHC RDW Plt Count MPV Neut % (Auto) Lymph % (Auto) [place] % (Auto) Eos % (Auto) Baso % (Auto) Neut # (Auto) Lymph # (Auto) [place] # (Auto) Eos # (Auto) Baso # (Auto) Neutrophils % (Manual) Lymphocytes % (Manual) Monocytes % (Manual) Platelet Estimate Hypochromasia (manual) Poikilocytosis (manual Anisocytosis (manual) Microcytosis (manual) Macrocytosis (manual) Target Cells Ovalocytes [place] Cells Sodium Potassium Chloride Carbon Dioxide Anion Gap BUN Creatinine Est GFR ( Amer) Est GFR (Non-Af Amer) POC Glucose (mg/dL) 92 91 80 Random Glucose Calcium Phosphorus Magnesium Total Bilirubin AST ALT Alkaline Phosphatase Total Protein Albumin Globulin Albumin/Globulin Ratio Radiology Impressions: Radiology Impressions Chest X-Ray 04/15/18 07:00 IMPRESSION: Interval improved aeration in the right lung. Large right and small left pleural effusions. Underlying airspace disease cannot be excluded. Stable position of left chest tube. Redemonstration of known pneumoperitoneum. Abdomen/Pelvis CT 04/15/18 07:25 IMPRESSION: Abdominal free air persists. Fat, fluid, and air within a left ventral abdominal hernia; hernia mouth measures approximately 2.2 cm. Diffuse soft tissue edema/anasarca. Severe fecal retention throughout the colon with suspected impaction at the rectosigmoid colon. Short segment small bowel wall thickening. Recommend attention on follow-up. Infectious, inflammatory, ischemic etiologies may be considered. Pancreatic atrophy. Dilated pancreatic duct measuring approximately 5 mm. 11 mm hypodensity in the pancreatic body appears cystic. Differential diagnosis includes small cystic neoplasm versus sequela of prior pancreatitis (dilated side duct radicles or tiny pseudocyst). Cholelithiasis. Suspect soft tissue or sludge within the gallbladder fossa. Moderate sized right pleural effusion and consolidation. Left basilar atelectasis. Additional incidental findings as above. Critical Care Progress Note - Nutrition Nutrition: Nutrition Category Date Time Status NPO Diet [DIET] Diets 04/15/18 Breakfast Active Attending/Attestation - Attestation Notes (Text): 04/15/18 20:05 Today: April The Patient was seen and examined at the bedside, Medical records reviewed, and management issues were discussed and formulated with the house staff. I have reviewed all the relevant clinical, laboratory, hemodynamic, radiographic data and medications Events reviewed Pain issues, skin care, head of the bed elevation, glycemic control were addressed. Agree with above resident's assessment and treatment plans of care as transcribed in Dr. Valenzuela's note.
--- NOTE | 2018-04-15 13:44 | CP.PCM.PN ---
Subjective - Date & Time of Evaluation Date of Evaluation: 04/15/18 Time of Evaluation: 10:30 - Subjective Subjective: Podiatry Progress Note- Dr. Shah 82 yo female seen and evaluated at bedside for right posterior leg superficial ulceration and bilateral lower extremity swelling with attending Dr. Shah at bedside. Patient is resting comfortably in bed and in NAD. Daugther at bedside during encounter. Denies nausea, fever, chest pains or chills. Denies shortness of breath during visitation however daughter expresses mother does experiences shortness of breath at times. Objective - Vital Signs/Intake and Output Vital Signs (last 24 hours): Temp Pulse Resp BP Pulse Ox 98.1 F 92 H 22 94/73 L 95 04/15/18 11:51 04/15/18 13:35 04/15/18 11:01 04/15/18 11:01 04/15/18 11:51 Intake and Output: 04/15/18 04/15/18 06:59 18:59 Intake Total 400 490 Output Total 395 405 Balance 5 85 - Medications Medications: Current Medications Acetaminophen (Tylenol 325mg Tab) 650 mg PO Q6 PRN PRN Reason: Fever >100.4 F Last Admin: 04/02/18 04:36 Dose: 650 mg Albuterol/Ipratropium (Duoneb 3 Mg/0.5 Mg (3 Ml) Ud) 3 ml INH RQ6 [facility] Last Admin: 04/15/18 13:39 Dose: 3 ml Amiodarone HCl (Cordarone) 200 mg PO DAILY [facility] Last Admin: 04/15/18 09:11 Dose: 200 mg Apixaban (Eliquis) 5 mg PO BID [facility] Last Admin: 04/11/18 17:28 Dose: 5 mg Ascorbic Acid (Vitamin C 500 Mg Tab) 500 mg PO BID [facility] Last Admin: 04/15/18 09:11 Dose: 500 mg Bacitracin (Bacitracin) 0 gm TOP BID [facility] Last Admin: 04/15/18 09:13 Dose: 1 applic Fluconazole (Diflucan Iv 100 Mg/50 Ml Ns) 50 mls @ 100 mls/hr IVPB DAILY [facility]; Protocol Last Admin: 04/15/18 09:14 Dose: 100 mls/hr Cefepime HCl (Maxipime Iv 1 Gm Premix) 1 gm in 50 mls @ 100 mls/hr IVPB Q12H [facility]; Protocol Last Admin: 04/15/18 03:53 Dose: 100 mls/hr Piperacillin Sod/Tazobactam Sod (Zosyn 3.375 Gm Iv Premix) 3.375 gm in 50 mls @ 100 mls/hr IVPB Q6H [facility]; Protocol Last Admin: 04/15/18 11:43 Dose: 100 mls/hr Norepinephrine Bitartrate 4 mg (/ Dextrose) 254 mls @ 15.24 mls/hr IV .[id number] PRN; Protocol PRN Reason: TITRATE PER MD ORDER Last Titration: 04/14/18 14:33 Dose: 0 mcg/min, 0 mls/hr Insulin Glargine (Lantus) 5 unit SC HS [facility] Last Admin: 04/14/18 22:32 Dose: 5 units Insulin Human Regular (Novolin R) 6 unit SC ACHS [facility] Last Admin: 04/15/18 11:43 Dose: Not Given Lactulose (Enulose) 20 gm PO HS PRN PRN Reason: Constipation Last Admin: 04/14/18 22:31 Dose: 20 gm Morphine Sulfate (Morphine) 2 mg IVP Q4 PRN PRN Reason: Pain, moderate (4-7) Multivitamins/Vitamin C (Multi-Delyn Liquid) 5 ml PO DAILY [facility] Last Admin: 04/15/18 10:53 Dose: 5 ml Nystatin (Nystop Topical Powder) 1 applic TOP BID [facility] Last Admin: 04/15/18 09:12 Dose: 1 applic Pantoprazole Sodium (Protonix Susp) 40 mg PO DAILY [facility] Last Admin: 04/15/18 09:11 Dose: 40 mg Silver Sulfadiazine (Silvadene 1% 20 Gm) 0 ea TOP BID [facility] Last Admin: 04/15/18 09:12 Dose: 1 applic Zinc Sulfate (Zinc Sulfate 220 Mg Cap) 220 mg PO DAILY [facility] Last Admin: 04/15/18 09:11 Dose: 220 mg - Labs Labs: 04/15/18 06:41 04/15/18 06:41 PT 23.1 SECONDS (9.7-12.2) H 04/13/18 06:10 INR 2.1 04/13/18 06:10 APTT 37 SECONDS (21-34) H 04/13/18 06:10 - Constitutional Appears: Well, Non-toxic, No Acute Distress - Extremities Exam Extremities Exam: absent: Calf Tenderness Additional comments: Dressing to lower extremity is clean, dry, and intact LEIDY dressing bilaterally to provide compression No strikethrough Swelling decreased to lower extremity Temperature gradient WNL - Neurological Exam Neurological Exam: Alert, Awake - Psychiatric Exam Psychiatric exam: Normal Affect, Normal Mood Assessment and Plan - Assessment and Plan (Free Text) Assessment: 82 yo female seen and evaluated at bedside for right posterior leg superficial ulceration with LE swelling- stable, no clinical signs of infection Plan: Patient seen and evaluated with attending Dr. Shah No leukocytosis, afebrile Wound cleansed, dressed with DSD, LEIDY B/L Continue multipodus boots at all times in bed Will continue to follow while in house Stable per podiatry standpoint Will f/u with Dr. Shah upon discharge
--- NOTE | 2018-04-15 15:38 | RAD ---
Date of service: 04/15/2018 HISTORY: Shortness of breath COMPARISON: 04/12/2018 FINDINGS: The left IJV line terminates in the SVC. LUNGS: There is interval improved aeration in the right upper lobe there is persistent airspace disease in the lower lobe. PLEURA: Large right and small left pleural effusions. No pneumothorax. Stable position left-sided chest tube CARDIOVASCULAR: The heart is normal in size. No aortic atherosclerotic calcification present. OSSEOUS STRUCTURES: Within normal limits for the patient's age. VISUALIZED UPPER ABDOMEN: Normal. OTHER FINDINGS: There is free air under the right hemidiaphragm, a known finding. IMPRESSION: Interval improved aeration in the right lung. Large right and small left pleural effusions. Underlying airspace disease cannot be excluded. Stable position of left chest tube. Redemonstration of known pneumoperitoneum.
[2018-04-15] MEDS ORDERED: Iodixanol 320 MG/ML 100 ML BOTTLE IV ONE (15:47)
--- NOTE | 2018-04-15 17:02 | CT ---
PROCEDURE: CT Abdomen and Pelvis with oral and IV contrast. HISTORY: re-evaluate perforated viscous COMPARISON: CT abdomen and pelvis without contrast performed 04/12/18 TECHNIQUE: Contiguous axial images of the abdomen and pelvis. Oral and IV contrast was administered. Coronal and Sagittal reformats generated and reviewed. Contrast dose: 100 cc Visipaque 320 Radiation dose: Total exam DLP = 1355.96 mGy-cm. This CT exam was performed using one or more of the following dose reduction techniques: Automated exposure control, adjustment of the mA and/or kV according to patient size, and/or use of iterative reconstruction technique. FINDINGS: LOWER THORAX: Moderate sized right pleural effusion and consolidation. Left basilar atelectasis. Cardiomegaly. Dense atherosclerotic calcifications Small hiatal hernia/distal esophageal wall thickening. Left pigtail catheter. LIVER: Unremarkable. GALLBLADDER AND BILE DUCTS: Cholelithiasis. Suspect soft tissue or sludge within the gallbladder fossa. PANCREAS: Atrophy. Dilated pancreatic duct measuring approximately 5 mm. 11 mm hypodensity in the pancreatic body. SPLEEN: Unremarkable. ADRENALS: Right adrenal gland hypertrophy. Left adrenal gland appears unremarkable. KIDNEYS AND URETERS: The kidneys enhance symmetrically. No hydronephrosis or obstructing renal calculus. BLADDER: [place] catheter within a decompressed urinary bladder. REPRODUCTIVE: Atrophy of the uterus. APPENDIX: The appendix is not identified. BOWEL: The stomach is nondistended. No evidence of small-bowel obstruction. Short segment small bowel wall thickening (coronal image 56, axial image 22). Moderate to severe diffuse constipation with suspected impaction at the rectosigmoid colon. PERITONEUM: Small pelvic free fluid. Abdominal free air. LYMPH NODES: No bulky lymphadenopathy identified. VASCULATURE: No aortic aneurysm. Dense atherosclerotic calcifications. 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 BONES: Osseous demineralization. Degenerative changes. Scoliosis. OTHER FINDINGS: Diffuse soft tissue edema/anasarca. Fat, fluid, and air within a left ventral abdominal hernia; hernia mouth measures approximately 2.2 cm. IMPRESSION: Abdominal free air persists. Fat, fluid, and air within a left ventral abdominal hernia; hernia mouth measures approximately 2.2 cm. Diffuse soft tissue edema/anasarca. Severe fecal retention throughout the colon with suspected impaction at the rectosigmoid colon. Short segment small bowel wall thickening. Recommend attention on follow-up. Infectious, inflammatory, ischemic etiologies may be considered. Pancreatic atrophy. Dilated pancreatic duct measuring approximately 5 mm. 11 mm hypodensity in the pancreatic body appears cystic. Differential diagnosis includes small cystic neoplasm versus sequela of prior pancreatitis (dilated side duct radicles or tiny pseudocyst). Cholelithiasis. Suspect soft tissue or sludge within the gallbladder fossa. Moderate sized right pleural effusion and consolidation. Left basilar atelectasis. Additional incidental findings as above.
--- NOTE | 2018-04-15 18:55 | CP.PCM.PCO ---
Physician Communication Note - Physician Communication Note Physician Communication Note: Daughter wanted full code for patient
--- NOTE | 2018-04-15 19:49 | CP.PCM.PN ---
Subjective - Date & Time of Evaluation Date of Evaluation: 04/15/18 Time of Evaluation: 19:44 - Subjective Subjective: pt seen and examined still sob on mask vss lung dec breath souns Objective - Vital Signs/Intake and Output Vital Signs (last 24 hours): Temp Pulse Resp BP Pulse Ox 98 F 112 H 26 H 117/87 83 L 04/15/18 16:00 04/15/18 18:01 04/15/18 18:01 04/15/18 18:01 04/15/18 15:01 Intake and Output: 04/15/18 04/16/18 18:59 06:59 Intake Total 790 Output Total 765 Balance 25 - Medications Medications: Current Medications Acetaminophen (Tylenol 325mg Tab) 650 mg PO Q6 PRN PRN Reason: Fever >100.4 F Last Admin: 04/02/18 04:36 Dose: 650 mg Albuterol/Ipratropium (Duoneb 3 Mg/0.5 Mg (3 Ml) Ud) 3 ml INH RQ6 [facility] Last Admin: 04/15/18 13:39 Dose: 3 ml Amiodarone HCl (Cordarone) 200 mg PO DAILY [facility] Last Admin: 04/15/18 09:11 Dose: 200 mg Apixaban (Eliquis) 5 mg PO BID [facility] Last Admin: 04/11/18 17:28 Dose: 5 mg Ascorbic Acid (Vitamin C 500 Mg Tab) 500 mg PO BID [facility] Last Admin: 04/15/18 17:26 Dose: 500 mg Bacitracin (Bacitracin) 0 gm TOP BID [facility] Last Admin: 04/15/18 09:13 Dose: 1 applic Fluconazole (Diflucan Iv 100 Mg/50 Ml Ns) 50 mls @ 100 mls/hr IVPB DAILY [facility]; Protocol Last Admin: 04/15/18 09:14 Dose: 100 mls/hr Cefepime HCl (Maxipime Iv 1 Gm Premix) 1 gm in 50 mls @ 100 mls/hr IVPB Q12H [facility]; Protocol Last Admin: 04/15/18 16:51 Dose: 100 mls/hr Piperacillin Sod/Tazobactam Sod (Zosyn 3.375 Gm Iv Premix) 3.375 gm in 50 mls @ 100 mls/hr IVPB Q6H [facility]; Protocol Last Admin: 04/15/18 17:27 Dose: 100 mls/hr Norepinephrine Bitartrate 4 mg (/ Dextrose) 254 mls @ 15.24 mls/hr IV .[id number] PRN; Protocol PRN Reason: TITRATE PER MD ORDER Last Titration: 04/14/18 14:33 Dose: 0 mcg/min, 0 mls/hr Insulin Glargine (Lantus) 5 unit SC HS [facility] Last Admin: 04/14/18 22:32 Dose: 5 units Insulin Human Regular (Novolin R) 6 unit SC ACHS [facility] Last Admin: 04/15/18 16:52 Dose: Not Given Lactulose (Enulose) 20 gm PO HS PRN PRN Reason: Constipation Last Admin: 04/14/18 22:31 Dose: 20 gm Morphine Sulfate (Morphine) 2 mg IVP Q4 PRN PRN Reason: Pain, moderate (4-7) Last Admin: 04/15/18 17:30 Dose: 2 mg Multivitamins/Vitamin C (Multi-Delyn Liquid) 5 ml PO DAILY [facility] Last Admin: 04/15/18 10:53 Dose: 5 ml Nystatin (Nystop Topical Powder) 1 applic TOP BID [facility] Last Admin: 04/15/18 09:12 Dose: 1 applic Pantoprazole Sodium (Protonix Susp) 40 mg PO DAILY [facility] Last Admin: 04/15/18 09:11 Dose: 40 mg Silver Sulfadiazine (Silvadene 1% 20 Gm) 0 ea TOP BID [facility] Last Admin: 04/15/18 09:12 Dose: 1 applic Zinc Sulfate (Zinc Sulfate 220 Mg Cap) 220 mg PO DAILY [facility] Last Admin: 04/15/18 09:11 Dose: 220 mg - Labs Labs: 04/15/18 06:41 04/15/18 06:41 PT 23.1 SECONDS (9.7-12.2) H 04/13/18 06:10 INR 2.1 04/13/18 06:10 APTT 37 SECONDS (21-34) H 04/13/18 06:10 - Constitutional Appears: Non-toxic - Head Exam Head Exam: NORMAL INSPECTION - Eye Exam Eye Exam: Normal appearance Pupil Exam: NORMAL ACCOMODATION - ENT Exam ENT Exam: Normal Exam - Neck Exam Neck Exam: Normal Inspection - Respiratory Exam Respiratory Exam: Decreased Breath Sounds Additional comments: chest tube still draining fluids - Cardiovascular Exam Cardiovascular Exam: +S1, +S2, +S4 - GI/Abdominal Exam GI & Abdominal Exam: Soft, Normal Bowel Sounds - Extremities Exam Additional comments: less celulitis - Back Exam Back Exam: NORMAL INSPECTION - Neurological Exam Neurological Exam: Awake, Oriented x3 - Psychiatric Exam Psychiatric exam: Normal Mood - Skin Skin Exam: Pallor Assessment and Plan - Assessment and Plan (Free Text) Assessment: chf pleural efusion chest tube celulitis Plan: cont as per orders
[2018-04-15] MEDS: (Lantus) Insulin Glargine, Recombinant SC SCH (22:00)
[2018-04-16] MEDS: Piperacill/Tazo 3.375gm in Dex 3.375 GM/50 ML BAG IVPB SCH ×2 (00:06→06:11)
[2018-04-16] MEDS: Albuterol-Ipratrop 3 mg / 0.5 (3 ml) UD INH SCH ×4 (01:06→19:55)
[2018-04-16] MEDS: Cefepime IV 1 gm in Dextrose 1 GM/50 ML BAG IVPB SCH ×2 (04:06→18:09)
[2018-04-16 05:55] LABS: ABG ALLEN TEST POS; ARTERIAL BLOOD GAS HCO3 30.5 mmol/L (21-28); ARTERIAL BLOOD GAS HEMOGLOBIN 9.6 g/dL (11.7-17.4); ARTERIAL BLOOD GAS O2 SAT 99.3 % (95-98); ARTERIAL BLOOD GAS PCO2 46 mm/Hg (35-45); ARTERIAL BLOOD GAS PH 7.45 (7.35-7.45); ARTERIAL BLOOD GAS PO2 162 mm/Hg (80-100); ARTERIAL BLOOD GAS TCO2 33.4 mmol/L (22-28)
[2018-04-16 06:27] LABS: BASO % 0.3 % (0.0-2.0); EOS % 0.3 % (0.0-4.0); HEMOGLOBIN 9.5 g/dL (11.0-16.0); LYMPH # 0.2 K/uL (1.0-4.3); LYMPH % 2.5 % (20.0-40.0); MEAN CELL VOLUME 85.2 fL (81.0-99.0); MEAN CORPUSCULAR HEMOGLOBIN 26.9 pg (27.0-31.0); MEAN CORPUSCULAR HGB CONC 31.5 g/dL (33.0-37.0); MEAN PLATELET VOLUME 10.7 fL (7.2-11.7); MONO # 0.2 K/uL (0.0-0.8); NEUT # 5.8 K/uL (1.8-7.0); NEUT % 93.9 % (50.0-75.0); NRBC % 0.1 % (0.0-2.0); PLATELET COUNT 39 K/uL (130-400); RBC 3.55 Mil/uL (3.80-5.20); WHITE BLOOD COUNT 6.1 K/uL (4.8-10.8)
[2018-04-16 06:45] LABS: ALB/GLOB RATIO 0.8 (1.0-2.1); ALBUMIN 1.9 g/dL (3.5-5.0); CALCIUM 7.8 mg/dl (8.6-10.4)
--- NOTE | 2018-04-16 08:13 | CP.PCM.PN ---
<HenriLopez - Last Filed: 04/16/18 07:56> Subjective - Date & Time of Evaluation Date of Evaluation: 04/16/18 Time of Evaluation: 07:56 - Subjective Subjective: General Surgery Progress Note for Dr. Gordon 82F seen and evaluated at bedside this morning. Patient had multiple bowel movements overnight. Patient continues to be on BIPAP. Denies f/c, n/v/d, CP, palpitations, or urinary symptoms. Objective - Vital Signs/Intake and Output Vital Signs (last 24 hours): Temp Pulse Resp BP Pulse Ox 98.3 F 105 H 19 105/74 94 L 04/16/18 00:00 04/16/18 07:15 04/16/18 07:15 04/16/18 06:57 04/16/18 06:57 Intake and Output: 04/16/18 04/16/18 06:59 18:59 Intake Total 300 0 Output Total 610 30 Balance -310 -30 - Medications Medications: Current Medications Acetaminophen (Tylenol 325mg Tab) 650 mg PO Q6 PRN PRN Reason: Fever >100.4 F Last Admin: 04/02/18 04:36 Dose: 650 mg Albuterol/Ipratropium (Duoneb 3 Mg/0.5 Mg (3 Ml) Ud) 3 ml INH RQ6 [facility] Last Admin: 04/16/18 01:06 Dose: 3 ml Amiodarone HCl (Cordarone) 200 mg PO DAILY [facility] Last Admin: 04/15/18 09:11 Dose: 200 mg Apixaban (Eliquis) 5 mg PO BID [facility] Last Admin: 04/11/18 17:28 Dose: 5 mg Ascorbic Acid (Vitamin C 500 Mg Tab) 500 mg PO BID [facility] Last Admin: 04/15/18 17:26 Dose: 500 mg Bacitracin (Bacitracin) 0 gm TOP BID [facility] Last Admin: 04/15/18 17:46 Dose: 1 applic Fluconazole (Diflucan Iv 100 Mg/50 Ml Ns) 50 mls @ 100 mls/hr IVPB DAILY [facility]; Protocol Last Admin: 04/15/18 09:14 Dose: 100 mls/hr Cefepime HCl (Maxipime Iv 1 Gm Premix) 1 gm in 50 mls @ 100 mls/hr IVPB Q12H [facility]; Protocol Last Admin: 04/16/18 04:06 Dose: 100 mls/hr Piperacillin Sod/Tazobactam Sod (Zosyn 3.375 Gm Iv Premix) 3.375 gm in 50 mls @ 100 mls/hr IVPB Q6H [facility]; Protocol Last Admin: 04/16/18 06:11 Dose: 100 mls/hr Norepinephrine Bitartrate 4 mg (/ Dextrose) 254 mls @ 15.24 mls/hr IV .[id number] PRN; Protocol PRN Reason: TITRATE PER MD ORDER Last Titration: 04/14/18 14:33 Dose: 0 mcg/min, 0 mls/hr Potassium Chloride (Potassium Chloride 20 Meq/100 Ml) 20 meq in 100 mls @ 50 mls/hr IVPB Q2H [facility] Stop: 04/16/18 11:59 Insulin Glargine (Lantus) 5 unit SC HS [facility] Last Admin: 04/15/18 22:00 Dose: Not Given Insulin Human Regular (Novolin R) 6 unit SC ACHS [facility] Last Admin: 04/15/18 22:00 Dose: Not Given Lactulose (Enulose) 20 gm PO HS PRN PRN Reason: Constipation Last Admin: 04/15/18 21:40 Dose: 20 gm Morphine Sulfate (Morphine) 2 mg IVP Q4 PRN PRN Reason: Pain, moderate (4-7) Last Admin: 04/15/18 17:30 Dose: 2 mg Multivitamins/Vitamin C (Multi-Delyn Liquid) 5 ml PO DAILY [facility] Last Admin: 04/15/18 10:53 Dose: 5 ml Nystatin (Nystop Topical Powder) 1 applic TOP BID [facility] Last Admin: 04/15/18 17:45 Dose: 1 applic Pantoprazole Sodium (Protonix Susp) 40 mg PO DAILY [facility] Last Admin: 04/15/18 09:11 Dose: 40 mg Silver Sulfadiazine (Silvadene 1% 20 Gm) 0 ea TOP BID [facility] Last Admin: 04/15/18 09:12 Dose: 1 applic Zinc Sulfate (Zinc Sulfate 220 Mg Cap) 220 mg PO DAILY [facility] Last Admin: 04/15/18 09:11 Dose: 220 mg - Labs Labs: 04/16/18 06:21 04/16/18 06:21 PT 23.1 SECONDS (9.7-12.2) H 04/13/18 06:10 INR 2.1 04/13/18 06:10 APTT 37 SECONDS (21-34) H 04/13/18 06:10 - Constitutional Appears: Non-toxic, Chronically Ill - Head Exam Head Exam: ATRAUMATIC, NORMAL INSPECTION, NORMOCEPHALIC - Eye Exam Eye Exam: EOMI - ENT Exam ENT Exam: Mucous Membranes Dry - GI/Abdominal Exam GI & Abdominal Exam: Soft, Tenderness, Normal Bowel Sounds. absent: Distended - Neurological Exam Neurological Exam: Alert, Awake - Psychiatric Exam Psychiatric exam: Normal Affect, Normal Mood - Skin Skin Exam: Dry, Intact, Normal Color, Warm Assessment and Plan - Assessment and Plan (Free Text) Assessment: 82F w/ suspected perforated viscous seen on CT scan Plan: Continue conservative management NPO IVF IV Abx Serial abdominal exams No surgical intervention at this time D/w Dr. Heidi Álvarez PGY1 <Milad Gordon B - Last Filed: 04/22/18 08:56> Objective - Vital Signs/Intake and Output Vital Signs (last 24 hours): Temp Pulse Resp BP Pulse Ox 97 F L 47 L 11 L 63/30 L 97 04/21/18 20:00 04/21/18 21:01 04/21/18 21:01 04/21/18 21:01 04/21/18 17:00 Intake and Output: 04/22/18 04/22/18 06:59 18:59 Intake Total 15 Balance 15 - Labs Labs: 04/21/18 05:47 04/21/18 05:47 PT 23.5 SECONDS (9.7-12.2) H 04/20/18 06:32 INR 2.1 04/20/18 06:32 APTT 52 SECONDS (21-34) H D 04/20/18 06:32 Attending/Attestation - Attestation I have personally seen and examined this patient.: Yes I have fully participated in the care of the patient.: Yes I have reviewed all pertinent clinical information, including history, physical exam and plan: Yes Notes (Text): Pt was seen and examined at bedside Hospice consult Repeat CT scan reviewed c.w ICU management Plan d.w ICU attending and family in detail Risk and benefit explained in detail.
[2018-04-16 08:59] LABS: BANDS 3 % (0-2); LYMPHOCYTE 2 % (20-40); MONOCYTE 2 % (0-10); NEUTROPHIL 93 % (50-75); TOTAL CELLS COUNTED 100
[2018-04-16 09:00] LABS: ANISOCYTOSIS MODERATE; HYPOCHROMIC SLIGHT; OVALOCYTES SLIGHT; PLATELET ESTIMATE DECREASED (NORMAL); POLYCHROMIC SLIGHT; TARGET CELLS SLIGHT
[2018-04-16] MEDS: Dextrose 5%/0.45% NS 1,000 ML IV SCH (09:00)
[2018-04-16] MEDS ORDERED: Piperacill/Tazo 2.25gm in Dex 2.25 GM/50 ML BAG IVPB SCH (10:00)
[2018-04-16] MEDS ORDERED: Phytonadione 10 mg/ml Inj (Adult) IV STA ×2 (10:01→11:30)
[2018-04-16] MEDS: Fluconazole IV 100mg/50 ml NS 50 ML IVPB SCH (10:32)
[2018-04-16] MEDS: Silver Sulfadiazine 1% Cream (20 gm) TOP SCH ×2 (10:39→18:12)
[2018-04-16] MEDS: Bacitracin Ointment 30 GM TUBE TOP SCH ×2 (10:40→18:12)
[2018-04-16 10:47] LABS: INR 1.7; PROTHROMBIN TIME 18.9 SECONDS (9.7-12.2)
--- NOTE | 2018-04-16 11:19 | CP.PCM.PN ---
Subjective - Date & Time of Evaluation Date of Evaluation: 04/16/18 Time of Evaluation: 11:16 - Subjective Subjective: pt had bowel movement today less distended still has chest tube draining Objective - Vital Signs/Intake and Output Vital Signs (last 24 hours): Temp Pulse Resp BP Pulse Ox 98.2 F 98 H 19 105/74 94 L 04/16/18 04:00 04/16/18 08:40 04/16/18 07:15 04/16/18 06:57 04/16/18 06:57 Intake and Output: 04/16/18 04/16/18 06:59 18:59 Intake Total 300 0 Output Total 610 30 Balance -310 -30 - Medications Medications: Current Medications Acetaminophen (Tylenol 325mg Tab) 650 mg PO Q6 PRN PRN Reason: Fever >100.4 F Last Admin: 04/02/18 04:36 Dose: 650 mg Albuterol/Ipratropium (Duoneb 3 Mg/0.5 Mg (3 Ml) Ud) 3 ml INH RQ6 [facility] Last Admin: 04/16/18 08:38 Dose: 3 ml Bacitracin (Bacitracin) 0 gm TOP BID [facility] Last Admin: 04/16/18 10:40 Dose: 1 applic Bisacodyl (Dulcolax) 10 mg AK HS ONE Stop: 04/16/18 22:01 Fluconazole (Diflucan Iv 100 Mg/50 Ml Ns) 50 mls @ 100 mls/hr IVPB DAILY [facility]; Protocol Last Admin: 04/16/18 10:32 Dose: 100 mls/hr Cefepime HCl (Maxipime Iv 1 Gm Premix) 1 gm in 50 mls @ 100 mls/hr IVPB Q12H [facility]; Protocol Last Admin: 04/16/18 04:06 Dose: 100 mls/hr Norepinephrine Bitartrate 4 mg (/ Dextrose) 254 mls @ 15.24 mls/hr IV .[id number] PRN; Protocol PRN Reason: TITRATE PER MD ORDER Last Titration: 04/14/18 14:33 Dose: 0 mcg/min, 0 mls/hr Potassium Chloride (Potassium Chloride 20 Meq/100 Ml) 20 meq in 100 mls @ 50 mls/hr IVPB Q2H [facility] Stop: 04/16/18 11:59 Last Admin: 04/16/18 11:00 Dose: 50 mls/hr Dextrose/Sodium Chloride (Dextrose 5%/0.45% Ns 1000 Ml) 1,000 mls @ 50 mls/hr IV .Q20H [facility] Last Admin: 04/16/18 09:00 Dose: 50 mls/hr Piperacillin Sod/Tazobactam Sod (Zosyn 2.25 Gm Iv Premix) 2.25 gm in 50 mls @ 100 mls/hr IVPB Q8H [facility]; Protocol Metronidazole (Flagyl) 500 mg in 100 mls @ 100 mls/hr IVPB Q8H [facility]; Protocol Insulin Aspart (Novolog) 0 unit SC Q6 [facility]; Protocol Nystatin (Nystop Topical Powder) 1 applic TOP BID [facility] Last Admin: 04/16/18 10:40 Dose: 1 applic Phytonadione (Vitamin K Inj) 10 mg IV STAT [facility] Stop: 04/16/18 11:16 Silver Sulfadiazine (Silvadene 1% 20 Gm) 0 ea TOP BID [facility] Last Admin: 04/16/18 10:39 Dose: 1 applic - Labs Labs: 04/16/18 06:21 04/16/18 06:21 PT 18.9 SECONDS (9.7-12.2) H 04/16/18 10:18 INR 1.7 04/16/18 10:18 APTT 37 SECONDS (21-34) H 04/13/18 06:10 - Constitutional Appears: In Acute Distress - Head Exam Head Exam: ATRAUMATIC - Eye Exam Eye Exam: Normal appearance - ENT Exam ENT Exam: Normal Exam - Neck Exam Neck Exam: Full ROM - Respiratory Exam Respiratory Exam: Decreased Breath Sounds - Cardiovascular Exam Cardiovascular Exam: Tachycardia Additional comments: hypotensive - GI/Abdominal Exam GI & Abdominal Exam: Tenderness - Exam Additional comments: has catheter in place - Extremities Exam Extremities Exam: Pedal Edema - Back Exam Back Exam: NORMAL INSPECTION - Psychiatric Exam Psychiatric exam: Flat Affect - Skin Skin Exam: Pallor Assessment and Plan - Assessment and Plan (Free Text) Assessment: chf pleural efusion fecal imaction free abdonial air ascitis Plan: cont as per icu orders
--- NOTE | 2018-04-16 11:42 | CP.CCUPN ---
<Margi Valenzuela - Last Filed: 04/16/18 11:39> CCU Subjective - Physician Review Subjective (Free Text): 04/14/18 08:38 Critical Care Progress Note for Dr. Valadez's service Patient seen and examined at bedside. Patient on bipap oxygenating well. Patient offered no acute complaints and denied fevers, chills, chest pain, n/v, constipation or diarrhea, and dysuria. 04/16/18 11:39 Critical Care Time Spent (in minutes): 35 CCU Objective - Vital Signs / Intake & Output Vital Signs (Last 4 hours): Vital Signs Pulse 04/16/18 08:40 98 H Intake and Output (Last 8hrs): Intake & Output 04/15/18 04/16/18 04/16/18 22:59 06:59 14:59 Intake Total 200 150 0 Output Total 385 410 30 Balance -185 -260 -30 Weight 220 lb 8 oz Intake: Intake, IV Amount 150 Right arm mid line 150 Oral 200 0 0 Output: Chest Tube Drainage 40 Left Posterior Chest 40 Urine 385 370 30 Urethral (Dover) 385 370 30 Other: # Bowel Movements 0 1 0 - Physical Exam Head: Positive for: Atraumatic, Normocephalic, Other (central line in left IJ) Pupils: Positive for: PERRL Extroacular Muscles: Positive for: EOMI Conjunctiva: Positive for: Normal Mouth: Positive for: Dry, Other (on bipap) Neck: Positive for: Normal Range of Motion. Negative for: JVD, Lymphadenopathy Respiratory/Chest: Positive for: Good Air Exchange, Decreased Breath Sounds. Negative for: Accessory Muscle Use, Wheezes, Tachypneic Cardiovascular: Positive for: Regular Rate and Rhythm, Normal S1, S2. Negative for: Murmurs, Irregular Rhythm Abdomen: Positive for: Tenderness, Normal Bowel Sounds, Other (umbilical hernia). Negative for: Distention, Peritoneal Signs, Rebound, Guarding Genitourinary/Pelvic Exam: Positive for: Other (Dover in place for strict Is/Os) Upper Extremity: Positive for: Normal Inspection, Edema. Negative for: Cyanosis Lower Extremity: Positive for: Normal Inspection, Edema Neurological: Positive for: GCS=15, Speech Normal Skin: Positive for: Dry, Normal Color, Other (chest tube in posterior left back, right foot ulcer, and sacral unstageable ulcer). Negative for: Diaphoretic Psychiatric: Positive for: Alert, Oriented x 3 - Medications Active Medications: Active Medications Generic Name Dose Route Start Last Admin Trade Name Freq PRN Reason Stop Dose Admin Acetaminophen 650 mg 03/23/18 15:59 04/02/18 04:36 Tylenol 325mg Tab PO 650 mg Q6 PRN Administration Fever >100.4 F Albuterol/Ipratropium 3 ml 04/02/18 14:00 04/16/18 08:38 Duoneb 3 Mg/0.5 Mg (3 Ml) Ud INH 3 ml RQ6 KEV Administration Bacitracin 0 gm 04/01/18 18:00 04/16/18 10:40 Bacitracin TOP 1 applic BID KEV Administration Bisacodyl 10 mg 04/16/18 22:00 Dulcolax MS 04/16/18 22:01 HS ONE Fluconazole 50 mls @ 100 mls/hr 03/27/18 10:00 04/16/18 10:32 Diflucan Iv 100 Mg/50 Ml Ns IVPB 100 mls/hr DAILY KEV Administration Protocol Cefepime HCl 1 gm in 50 mls @ 100 mls/hr 04/01/18 16:30 04/16/18 04:06 Maxipime Iv 1 Gm Premix IVPB 100 mls/hr Q12H KEV Administration Protocol Norepinephrine Bitartrate 4 mg 254 mls @ 15.24 mls/hr 04/12/18 18:52 04/14/18 14:33 / Dextrose IV 0 mcg/min .[id number] PRN 0 mls/hr TITRATE PER MD ORDER Titration Protocol 4 MCG/MIN Potassium Chloride 20 meq in 100 mls @ 50 mls/hr 04/16/18 08:00 04/16/18 11:00 Potassium Chloride 20 Meq/100 Ml IVPB 04/16/18 11:59 50 mls/hr Q2H KEV Administration Dextrose/Sodium Chloride 1,000 mls @ 50 mls/hr 04/16/18 08:45 04/16/18 09:00 Dextrose 5%/0.45% Ns 1000 Ml IV 50 mls/hr .Q20H KEV Administration Piperacillin Sod/Tazobactam Sod 2.25 gm in 50 mls @ 100 mls/hr 04/16/18 10:00 04/16/18 11:37 Zosyn 2.25 Gm Iv Premix IVPB 100 mls/hr Q8H KEV Administration Protocol Metronidazole 500 mg in 100 mls @ 100 mls/hr 04/16/18 11:00 Flagyl IVPB Q8H KEV Protocol Insulin Aspart 0 unit 04/16/18 12:00 Novolog SC Q6 KEV Protocol Nystatin 1 applic 03/23/18 18:00 04/16/18 10:40 Nystop Topical Powder TOP 1 applic BID KEV Administration Silver Sulfadiazine 0 ea 03/26/18 10:00 04/16/18 10:39 Silvadene 1% 20 Gm TOP 1 applic BID KEV Administration - Patient Studies Lab Studies: Lab Studies 04/16/18 04/16/18 04/16/18 Range/Units 10:23 10:18 10:18 WBC (4.8-10.8) K/uL RBC (3.80-5.20) Mil/uL Hgb (11.0-16.0) g/dL Hct (34.0-47.0) % MCV (81.0-99.0) fL MCH (27.0-31.0) pg MCHC (33.0-37.0) g/dL RDW (11.5-14.5) % Plt Count (130-400) K/uL MPV (7.2-11.7) fL Neut % (Auto) (50.0-75.0) % Lymph % (Auto) (20.0-40.0) % Forrest % (Auto) (0.0-10.0) % Eos % (Auto) (0.0-4.0) % Baso % (Auto) (0.0-2.0) % Neut # (Auto) (1.8-7.0) K/uL Lymph # (Auto) (1.0-4.3) K/uL Forrest # (Auto) (0.0-0.8) K/uL Eos # (Auto) (0.0-0.7) K/uL Baso # (Auto) (0.0-0.2) K/uL Neutrophils % (Manual) (50-75) % Band Neutrophils % (0-2) % Lymphocytes % (Manual) (20-40) % Monocytes % (Manual) (0-10) % Platelet Estimate (NORMAL) Polychromasia Hypochromasia (manual) Anisocytosis (manual) Target Cells Ovalocytes PT 18.9 H (9.7-12.2) SECONDS INR 1.7 Fibrinogen 512 H (200-400) mg/dL Puncture Site pCO2 (35-45) mm/Hg pO2 (80-100) mm/Hg HCO3 (21-28) mmol/L ABG pH (7.35-7.45) ABG Total CO2 (22-28) mmol/L ABG O2 Saturation (95-98) % ABG Base Excess (-2.0-3.0) mmol/L ABG Hemoglobin (11.7-17.4) g/dL ABG Carboxyhemoglobin (0.5-1.5) % POC ABG HHb (Measured) (0.0-5.0) % ABG Methemoglobin (0.0-3.0) % Pawel Test A-a O2 Difference mm/Hg Respiratory Index Hgb O2 Saturation (95.0-98.0) % Vent Mode FiO2 % Sodium (132-148) mmol/L Potassium (3.6-5.2) mmol/L Chloride (98-107) mmol/L Carbon Dioxide (22-30) mmol/L Anion Gap (10-20) BUN (7-17) mg/dL Creatinine (0.7-1.2) mg/dL Est GFR ( Amer) Est GFR (Non-Af Amer) POC Glucose (mg/dL) (65-110) mg/dL Random Glucose (65-105) mg/dL Lactic Acid 1.3 (0.7-2.1) mmol/L Calcium (8.6-10.4) mg/dl Phosphorus (2.5-4.5) mg/dL Magnesium (1.6-2.3) mg/dL Total Bilirubin (0.2-1.3) mg/dL AST (14-36) U/L ALT (9-52) U/L Alkaline Phosphatase (38-126) U/L Total Protein (6.3-8.3) g/dL Albumin (3.5-5.0) g/dL Globulin (2.2-3.9) gm/dL Albumin/Globulin Ratio (1.0-2.1) Blood Type A POSITIVE Antibody Screen Negative 04/16/18 04/16/1819 Range/Units 07:11 06:21 06:21 WBC 6.1 (4.8-10.8) K/uL RBC 3.55 L (3.80-5.20) Mil/uL Hgb 9.5 L (11.0-16.0) g/dL Hct 30.2 L (34.0-47.0) % MCV 85.2 (81.0-99.0) fL MCH 26.9 L (27.0-31.0) pg MCHC 31.5 L (33.0-37.0) g/dL RDW 26.0 H (11.5-14.5) % Plt Count 39 L (130-400) K/uL MPV 10.7 (7.2-11.7) fL Neut % (Auto) 93.9 H (50.0-75.0) % Lymph % (Auto) 2.5 L (20.0-40.0) % Forrest % (Auto) 3.0 (0.0-10.0) % Eos % (Auto) 0.3 (0.0-4.0) % Baso % (Auto) 0.3 (0.0-2.0) % Neut # (Auto) 5.8 (1.8-7.0) K/uL Lymph # (Auto) 0.2 L (1.0-4.3) K/uL Forrest # (Auto) 0.2 (0.0-0.8) K/uL Eos # (Auto) 0.0 (0.0-0.7) K/uL Baso # (Auto) 0.0 (0.0-0.2) K/uL Neutrophils % (Manual) 93 H (50-75) % Band Neutrophils % 3 H (0-2) % Lymphocytes % (Manual) 2 L (20-40) % Monocytes % (Manual) 2 (0-10) % Platelet Estimate Decreased L (NORMAL) Polychromasia Slight Hypochromasia (manual) Slight Anisocytosis (manual) Moderate Target Cells Slight Ovalocytes Slight PT (9.7-12.2) SECONDS INR Fibrinogen (200-400) mg/dL Puncture Site pCO2 (35-45) mm/Hg pO2 (80-100) mm/Hg HCO3 (21-28) mmol/L ABG pH (7.35-7.45) ABG Total CO2 (22-28) mmol/L ABG O2 Saturation (95-98) % ABG Base Excess (-2.0-3.0) mmol/L ABG Hemoglobin (11.7-17.4) g/dL ABG Carboxyhemoglobin (0.5-1.5) % POC ABG HHb (Measured) (0.0-5.0) % ABG Methemoglobin (0.0-3.0) % Pawel Test A-a O2 Difference mm/Hg Respiratory Index Hgb O2 Saturation (95.0-98.0) % Vent Mode FiO2 % Sodium 134 (132-148) mmol/L Potassium 3.4 L (3.6-5.2) mmol/L Chloride 96 L (98-107) mmol/L Carbon Dioxide 32 H (22-30) mmol/L Anion Gap 10 (10-20) BUN 62 H (7-17) mg/dL Creatinine 1.3 H (0.7-1.2) mg/dL Est GFR ( Amer) 47 Est GFR (Non-Af Amer) 39 POC Glucose (mg/dL) 81 (65-110) mg/dL Random Glucose 61 L D (65-105) mg/dL Lactic Acid (0.7-2.1) mmol/L Calcium 7.8 L (8.6-10.4) mg/dl Phosphorus 3.9 (2.5-4.5) mg/dL Magnesium 2.2 (1.6-2.3) mg/dL Total Bilirubin 1.5 H (0.2-1.3) mg/dL AST 7 L (14-36) U/L ALT 25 (9-52) U/L Alkaline Phosphatase 46 (38-126) U/L Total Protein 4.1 L (6.3-8.3) g/dL Albumin 1.9 L (3.5-5.0) g/dL Globulin 2.2 (2.2-3.9) gm/dL Albumin/Globulin Ratio 0.8 L (1.0-2.1) Blood Type Antibody Screen 04/16/18 04/15/18 04/15/18 Range/Units 05:21 21:35 16:45 WBC (4.8-10.8) K/uL RBC (3.80-5.20) Mil/uL Hgb (11.0-16.0) g/dL Hct (34.0-47.0) % MCV (81.0-99.0) fL MCH (27.0-31.0) pg MCHC (33.0-37.0) g/dL RDW (11.5-14.5) % Plt Count (130-400) K/uL MPV (7.2-11.7) fL Neut % (Auto) (50.0-75.0) % Lymph % (Auto) (20.0-40.0) % Forrest % (Auto) (0.0-10.0) % Eos % (Auto) (0.0-4.0) % Baso % (Auto) (0.0-2.0) % Neut # (Auto) (1.8-7.0) K/uL Lymph # (Auto) (1.0-4.3) K/uL Forrest # (Auto) (0.0-0.8) K/uL Eos # (Auto) (0.0-0.7) K/uL Baso # (Auto) (0.0-0.2) K/uL Neutrophils % (Manual) (50-75) % Band Neutrophils % (0-2) % Lymphocytes % (Manual) (20-40) % Monocytes % (Manual) (0-10) % Platelet Estimate (NORMAL) Polychromasia Hypochromasia (manual) Anisocytosis (manual) Target Cells Ovalocytes PT (9.7-12.2) SECONDS INR Fibrinogen (200-400) mg/dL Puncture Site R rad pCO2 46 H (35-45) mm/Hg pO2 162 H (80-100) mm/Hg HCO3 30.5 H (21-28) mmol/L ABG pH 7.45 (7.35-7.45) ABG Total CO2 33.4 H (22-28) mmol/L ABG O2 Saturation 99.3 H (95-98) % ABG Base Excess 7.2 H (-2.0-3.0) mmol/L ABG Hemoglobin 9.6 L (11.7-17.4) g/dL ABG Carboxyhemoglobin 2.0 H (0.5-1.5) % POC ABG HHb (Measured) 0.7 (0.0-5.0) % ABG Methemoglobin 1.4 (0.0-3.0) % Pawel Test Pos A-a O2 Difference 137.0 mm/Hg Respiratory Index 0.8 Hgb O2 Saturation 95.8 (95.0-98.0) % Vent Mode Bipap FiO2 50.0 % Sodium (132-148) mmol/L Potassium (3.6-5.2) mmol/L Chloride (98-107) mmol/L Carbon Dioxide (22-30) mmol/L Anion Gap (10-20) BUN (7-17) mg/dL Creatinine (0.7-1.2) mg/dL Est GFR ( Amer) Est GFR (Non-Af Amer) POC Glucose (mg/dL) 83 80 (65-110) mg/dL Random Glucose (65-105) mg/dL Lactic Acid (0.7-2.1) mmol/L Calcium (8.6-10.4) mg/dl Phosphorus (2.5-4.5) mg/dL Magnesium (1.6-2.3) mg/dL Total Bilirubin (0.2-1.3) mg/dL AST (14-36) U/L ALT (9-52) U/L Alkaline Phosphatase (38-126) U/L Total Protein (6.3-8.3) g/dL Albumin (3.5-5.0) g/dL Globulin (2.2-3.9) gm/dL Albumin/Globulin Ratio (1.0-2.1) Blood Type Antibody Screen 04/15/18 Range/Units 11:20 WBC (4.8-10.8) K/uL RBC (3.80-5.20) Mil/uL Hgb (11.0-16.0) g/dL Hct (34.0-47.0) % MCV (81.0-99.0) fL MCH (27.0-31.0) pg MCHC (33.0-37.0) g/dL RDW (11.5-14.5) % Plt Count (130-400) K/uL MPV (7.2-11.7) fL Neut % (Auto) (50.0-75.0) % Lymph % (Auto) (20.0-40.0) % Forrest % (Auto) (0.0-10.0) % Eos % (Auto) (0.0-4.0) % Baso % (Auto) (0.0-2.0) % Neut # (Auto) (1.8-7.0) K/uL Lymph # (Auto) (1.0-4.3) K/uL Forrest # (Auto) (0.0-0.8) K/uL Eos # (Auto) (0.0-0.7) K/uL Baso # (Auto) (0.0-0.2) K/uL Neutrophils % (Manual) (50-75) % Band Neutrophils % (0-2) % Lymphocytes % (Manual) (20-40) % Monocytes % (Manual) (0-10) % Platelet Estimate (NORMAL) Polychromasia Hypochromasia (manual) Anisocytosis (manual) Target Cells Ovalocytes PT (9.7-12.2) SECONDS INR Fibrinogen (200-400) mg/dL Puncture Site pCO2 (35-45) mm/Hg pO2 (80-100) mm/Hg HCO3 (21-28) mmol/L ABG pH (7.35-7.45) ABG Total CO2 (22-28) mmol/L ABG O2 Saturation (95-98) % ABG Base Excess (-2.0-3.0) mmol/L ABG Hemoglobin (11.7-17.4) g/dL ABG Carboxyhemoglobin (0.5-1.5) % POC ABG HHb (Measured) (0.0-5.0) % ABG Methemoglobin (0.0-3.0) % Pawel Test A-a O2 Difference mm/Hg Respiratory Index Hgb O2 Saturation (95.0-98.0) % Vent Mode FiO2 % Sodium (132-148) mmol/L Potassium (3.6-5.2) mmol/L Chloride (98-107) mmol/L Carbon Dioxide (22-30) mmol/L Anion Gap (10-20) BUN (7-17) mg/dL Creatinine (0.7-1.2) mg/dL Est GFR ( Amer) Est GFR (Non-Af Amer) POC Glucose (mg/dL) 91 (65-110) mg/dL Random Glucose (65-105) mg/dL Lactic Acid (0.7-2.1) mmol/L Calcium (8.6-10.4) mg/dl Phosphorus (2.5-4.5) mg/dL Magnesium (1.6-2.3) mg/dL Total Bilirubin (0.2-1.3) mg/dL AST (14-36) U/L ALT (9-52) U/L Alkaline Phosphatase (38-126) U/L Total Protein (6.3-8.3) g/dL Albumin (3.5-5.0) g/dL Globulin (2.2-3.9) gm/dL Albumin/Globulin Ratio (1.0-2.1) Blood Type Antibody Screen Laboratory Results - last 24 hr 04/15/18 04/15/18 04/15/18 11:20 16:45 21:35 WBC RBC Hgb Hct MCV MCH MCHC RDW Plt Count MPV Neut % (Auto) Lymph % (Auto) Forrest % (Auto) Eos % (Auto) Baso % (Auto) Neut # (Auto) Lymph # (Auto) Forrest # (Auto) Eos # (Auto) Baso # (Auto) Neutrophils % (Manual) Band Neutrophils % Lymphocytes % (Manual) Monocytes % (Manual) Platelet Estimate Polychromasia Hypochromasia (manual) Anisocytosis (manual) Target Cells Ovalocytes PT INR Fibrinogen Puncture Site pCO2 pO2 HCO3 ABG pH ABG Total CO2 ABG O2 Saturation ABG Base Excess ABG Hemoglobin ABG Carboxyhemoglobin POC ABG HHb (Measured) ABG Methemoglobin Pawel Test A-a O2 Difference Respiratory Index Hgb O2 Saturation Vent Mode FiO2 Sodium Potassium Chloride Carbon Dioxide Anion Gap BUN Creatinine Est GFR ( Amer) Est GFR (Non-Af Amer) POC Glucose (mg/dL) 91 80 83 Random Glucose Lactic Acid Calcium Phosphorus Magnesium Total Bilirubin AST ALT Alkaline Phosphatase Total Protein Albumin Globulin Albumin/Globulin Ratio Blood Type Antibody Screen 04/16/18 04/16/18 04/16/18 05:21 06:21 06:21 WBC 6.1 RBC 3.55 L Hgb 9.5 L Hct 30.2 L MCV 85.2 MCH 26.9 L MCHC 31.5 L RDW 26.0 H Plt Count 39 L MPV 10.7 Neut % (Auto) 93.9 H Lymph % (Auto) 2.5 L Forrest % (Auto) 3.0 Eos % (Auto) 0.3 Baso % (Auto) 0.3 Neut # (Auto) 5.8 Lymph # (Auto) 0.2 L Forrest # (Auto) 0.2 Eos # (Auto) 0.0 Baso # (Auto) 0.0 Neutrophils % (Manual) 93 H Band Neutrophils % 3 H Lymphocytes % (Manual) 2 L Monocytes % (Manual) 2 Platelet Estimate Decreased L Polychromasia Slight Hypochromasia (manual) Slight Anisocytosis (manual) Moderate Target Cells Slight Ovalocytes Slight PT INR Fibrinogen Puncture Site R rad pCO2 46 H pO2 162 H HCO3 30.5 H ABG pH 7.45 ABG Total CO2 33.4 H ABG O2 Saturation 99.3 H ABG Base Excess 7.2 H ABG Hemoglobin 9.6 L ABG Carboxyhemoglobin 2.0 H POC ABG HHb (Measured) 0.7 ABG Methemoglobin 1.4 Pawel Test Pos A-a O2 Difference 137.0 Respiratory Index 0.8 Hgb O2 Saturation 95.8 Vent Mode Bipap FiO2 50.0 Sodium 134 Potassium 3.4 L Chloride 96 L Carbon Dioxide 32 H Anion Gap 10 BUN 62 H Creatinine 1.3 H Est GFR ( Amer) 47 Est GFR (Non-Af Amer) 39 POC Glucose (mg/dL) Random Glucose 61 L D Lactic Acid Calcium 7.8 L Phosphorus 3.9 Magnesium 2.2 Total Bilirubin 1.5 H AST 7 L ALT 25 Alkaline Phosphatase 46 Total Protein 4.1 L Albumin 1.9 L Globulin 2.2 Albumin/Globulin Ratio 0.8 L Blood Type Antibody Screen 04/16/18 04/16/18 04/16/18 07:11 10:18 10:18 WBC RBC Hgb Hct MCV MCH MCHC RDW Plt Count MPV Neut % (Auto) Lymph % (Auto) Forrest % (Auto) Eos % (Auto) Baso % (Auto) Neut # (Auto) Lymph # (Auto) Forrest # (Auto) Eos # (Auto) Baso # (Auto) Neutrophils % (Manual) Band Neutrophils % Lymphocytes % (Manual) Monocytes % (Manual) Platelet Estimate Polychromasia Hypochromasia (manual) Anisocytosis (manual) Target Cells Ovalocytes PT 18.9 H INR 1.7 Fibrinogen 512 H Puncture Site pCO2 pO2 HCO3 ABG pH ABG Total CO2 ABG O2 Saturation ABG Base Excess ABG Hemoglobin ABG Carboxyhemoglobin POC ABG HHb (Measured) ABG Methemoglobin Pawel Test A-a O2 Difference Respiratory Index Hgb O2 Saturation Vent Mode FiO2 Sodium Potassium Chloride Carbon Dioxide Anion Gap BUN Creatinine Est GFR ( Amer) Est GFR (Non-Af Amer) POC Glucose (mg/dL) 81 Random Glucose Lactic Acid 1.3 Calcium Phosphorus Magnesium Total Bilirubin AST ALT Alkaline Phosphatase Total Protein Albumin Globulin Albumin/Globulin Ratio Blood Type Antibody Screen 04/16/18 10:23 WBC RBC Hgb Hct MCV MCH MCHC RDW Plt Count MPV Neut % (Auto) Lymph % (Auto) Forrest % (Auto) Eos % (Auto) Baso % (Auto) Neut # (Auto) Lymph # (Auto) Forrest # (Auto) Eos # (Auto) Baso # (Auto) Neutrophils % (Manual) Band Neutrophils % Lymphocytes % (Manual) Monocytes % (Manual) Platelet Estimate Polychromasia Hypochromasia (manual) Anisocytosis (manual) Target Cells Ovalocytes PT INR Fibrinogen Puncture Site pCO2 pO2 HCO3 ABG pH ABG Total CO2 ABG O2 Saturation ABG Base Excess ABG Hemoglobin ABG Carboxyhemoglobin POC ABG HHb (Measured) ABG Methemoglobin Pawel Test A-a O2 Difference Respiratory Index Hgb O2 Saturation Vent Mode FiO2 Sodium Potassium Chloride Carbon Dioxide Anion Gap BUN Creatinine Est GFR ( Amer) Est GFR (Non-Af Amer) POC Glucose (mg/dL) Random Glucose Lactic Acid Calcium Phosphorus Magnesium Total Bilirubin AST ALT Alkaline Phosphatase Total Protein Albumin Globulin Albumin/Globulin Ratio Blood Type A POSITIVE Antibody Screen Negative Radiology Impressions: Radiology Impressions Chest X-Ray 04/15/18 07:00 IMPRESSION: Interval improved aeration in the right lung. Large right and small left pleural effusions. Underlying airspace disease cannot be excluded. Stable position of left chest tube. Redemonstration of known pneumoperitoneum. Abdomen/Pelvis CT 04/15/18 07:25 IMPRESSION: Abdominal free air persists. Fat, fluid, and air within a left ventral abdominal hernia; hernia mouth measures approximately 2.2 cm. Diffuse soft tissue edema/anasarca. Severe fecal retention throughout the colon with suspected impaction at the rectosigmoid colon. Short segment small bowel wall thickening. Recommend attention on follow-up. Infectious, inflammatory, ischemic etiologies may be considered. Pancreatic atrophy. Dilated pancreatic duct measuring approximately 5 mm. 11 mm hypodensity in the pancreatic body appears cystic. Differential diagnosis includes small cystic neoplasm versus sequela of prior pancreatitis (dilated side duct radicles or tiny pseudocyst). Cholelithiasis. Suspect soft tissue or sludge within the gallbladder fossa. Moderate sized right pleural effusion and consolidation. Left basilar atelectasis. Additional incidental findings as above. Fingerstick Blood Sugar Results: 83 Review of Systems - Review of Systems Review of Systems: 12 point ROS obtained and noted as in HPI Critical Care Progress Note - Extremities/Vascular Does the Patient have a Central Venous Catheter?: Yes Insertion Site: Internal Jugular Vein Does the Patient need a Central Venous Catheter?: Yes Does the Patient have a [place] Catheter?: Yes Does the Patient need a [place] Catheter?: Yes Catheter Insertion Criteria: Need for accurate measurement of output in critically ill patient - Prophylaxis GI Prophylaxis GI: PPI - Nutrition Nutrition: Nutrition Category Date Time Status NPO Diet [DIET] Diets 04/15/18 Breakfast Active Assessment/Plan - Assessment and Plan (Free Text) Assessment: Patient is a 82 yo female w/ PMH of CHF, HTN, Afib on AC admitted for bilateral pleural effusions and pneumonia. Patient was intubated and extubated. Patient has recurrent pleural effusions s/p thoracentesis and chest tube placement. Patient on CT abd/pelvis showed perforation with free air. Poor surgical candidate Neuro Awake, alert, oriented no active issues Pulm on bipap; maintain spo2>92 Duoneb q6 CV Levophed drip Platelets trending down, 1 unit of platelets pending Repeat CMP in AM GI CT abd shows free air ; stable from prior imaging poor surgical candidate due to comorbidities NPO Cont Endo Q6h accucheck; D5/.45 NS @ 50mls/hr Renal Cr trending up; D5/.45 NS @ 50mls/hr Derm Bacitracin/Nystatin Continue wound care as per wound care/podiatry ID + cx for yeast species on 03/27 Fluconazole (started on 03/27) Cefepime (started on 04/01) Nystatin (started on 03/23) DVT ppx: Eliquis held in setting of possible thoracentesis; SCDs contraindicated not tolerable GI ppx: Protonix IV Disposition: continue medical management as per ICU; defer surgery as patient poor candidate; Replete blood products as needed; continue IV abx and wound care; continue pulm/blood pressure management Case discussed with Dr. Valadez PGY-1 Margi Nicolas <Matilde Valadez - Last Filed: 04/16/18 16:40> CCU Objective - Vital Signs / Intake & Output Vital Signs (Last 4 hours): Vital Signs Temp Pulse Resp BP 04/16/18 15:47 97.7 F 98 H 20 101/71 04/16/18 13:17 101 H Intake and Output (Last 8hrs): Intake & Output 04/16/18 04/16/18 04/16/18 06:59 14:59 22:59 Intake Total 150 0 Output Total 410 30 Balance -260 -30 Weight 220 lb 8 oz Intake: Intake, IV Amount 150 Right arm mid line 150 Oral 0 0 Output: Chest Tube Drainage 40 Left Posterior Chest 40 Urine 370 30 Urethral (Dover) 370 30 Other: # Bowel Movements 1 0 - Medications Active Medications: Active Medications Generic Name Dose Route Start Last Admin Trade Name Freq PRN Reason Stop Dose Admin Acetaminophen 650 mg 03/23/18 15:59 04/02/18 04:36 Tylenol 325mg Tab PO 650 mg Q6 PRN Administration Fever >100.4 F Albuterol/Ipratropium 3 ml 04/02/18 14:00 04/16/18 13:16 Duoneb 3 Mg/0.5 Mg (3 Ml) Ud INH 3 ml RQ6 KEV Administration Bacitracin 0 gm 04/01/18 18:00 04/16/18 10:40 Bacitracin TOP 1 applic BID KEV Administration Bisacodyl 10 mg 04/16/18 22:00 Dulcolax MS 04/16/18 22:01 HS ONE Fluconazole 50 mls @ 100 mls/hr 03/27/18 10:00 04/16/18 10:32 Diflucan Iv 100 Mg/50 Ml Ns IVPB 100 mls/hr DAILY KEV Administration Protocol Cefepime HCl 1 gm in 50 mls @ 100 mls/hr 04/01/18 16:30 04/16/18 04:06 Maxipime Iv 1 Gm Premix IVPB 100 mls/hr Q12H KEV Administration Protocol Norepinephrine Bitartrate 4 mg 254 mls @ 15.24 mls/hr 04/12/18 18:52 04/14/18 14:33 / Dextrose IV 0 mcg/min .[id number] PRN 0 mls/hr TITRATE PER MD ORDER Titration Protocol 4 MCG/MIN Dextrose/Sodium Chloride 1,000 mls @ 50 mls/hr 04/16/18 08:45 04/16/18 09:00 Dextrose 5%/0.45% Ns 1000 Ml IV 50 mls/hr .Q20H KEV Administration Piperacillin Sod/Tazobactam Sod 2.25 gm in 50 mls @ 100 mls/hr 04/16/18 10:00 04/16/18 11:37 Zosyn 2.25 Gm Iv Premix IVPB 100 mls/hr Q8H KEV Administration Protocol Metronidazole 500 mg in 100 mls @ 100 mls/hr 04/16/18 11:00 04/16/18 12:45 Flagyl IVPB 100 mls/hr Q8H EKV Administration Protocol Insulin Aspart 0 unit 04/16/18 12:00 04/16/18 12:43 Novolog SC Not Given Q6 KEV Protocol Nystatin 1 applic 03/23/18 18:00 04/16/18 10:40 Nystop Topical Powder TOP 1 applic BID KEV Administration Pantoprazole Sodium 40 mg 04/16/18 12:00 04/16/18 15:32 Protonix Inj IVP 40 mg DAILY KEV Administration Silver Sulfadiazine 0 ea 03/26/18 10:00 04/16/18 10:39 Silvadene 1% 20 Gm TOP 1 applic BID KEV Administration - Patient Studies Lab Studies: Lab Studies 04/16/18 04/16/18 04/16/18 Range/Units 15:59 12:05 10:23 WBC (4.8-10.8) K/uL RBC (3.80-5.20) Mil/uL Hgb (11.0-16.0) g/dL Hct (34.0-47.0) % MCV (81.0-99.0) fL MCH (27.0-31.0) pg MCHC (33.0-37.0) g/dL RDW (11.5-14.5) % Plt Count (130-400) K/uL MPV (7.2-11.7) fL Neut % (Auto) (50.0-75.0) % Lymph % (Auto) (20.0-40.0) % Forrest % (Auto) (0.0-10.0) % Eos % (Auto) (0.0-4.0) % Baso % (Auto) (0.0-2.0) % Neut # (Auto) (1.8-7.0) K/uL Lymph # (Auto) (1.0-4.3) K/uL Forrest # (Auto) (0.0-0.8) K/uL Eos # (Auto) (0.0-0.7) K/uL Baso # (Auto) (0.0-0.2) K/uL Neutrophils % (Manual) (50-75) % Band Neutrophils % (0-2) % Lymphocytes % (Manual) (20-40) % Monocytes % (Manual) (0-10) % Platelet Estimate (NORMAL) Polychromasia Hypochromasia (manual) Anisocytosis (manual) Target Cells Ovalocytes PT (9.7-12.2) SECONDS INR Fibrinogen (200-400) mg/dL Puncture Site pCO2 (35-45) mm/Hg pO2 (80-100) mm/Hg HCO3 (21-28) mmol/L ABG pH (7.35-7.45) ABG Total CO2 (22-28) mmol/L ABG O2 Saturation (95-98) % ABG Base Excess (-2.0-3.0) mmol/L ABG Hemoglobin (11.7-17.4) g/dL ABG Carboxyhemoglobin (0.5-1.5) % POC ABG HHb (Measured) (0.0-5.0) % ABG Methemoglobin (0.0-3.0) % Pawel Test A-a O2 Difference mm/Hg Respiratory Index Hgb O2 Saturation (95.0-98.0) % Vent Mode FiO2 % Sodium (132-148) mmol/L Potassium (3.6-5.2) mmol/L Chloride (98-107) mmol/L Carbon Dioxide (22-30) mmol/L Anion Gap (10-20) BUN (7-17) mg/dL Creatinine (0.7-1.2) mg/dL Est GFR ( Amer) Est GFR (Non-Af Amer) POC Glucose (mg/dL) 83 82 (65-110) mg/dL Random Glucose (65-105) mg/dL Lactic Acid (0.7-2.1) mmol/L Calcium (8.6-10.4) mg/dl Phosphorus (2.5-4.5) mg/dL Magnesium (1.6-2.3) mg/dL Total Bilirubin (0.2-1.3) mg/dL AST (14-36) U/L ALT (9-52) U/L Alkaline Phosphatase (38-126) U/L Total Protein (6.3-8.3) g/dL Albumin (3.5-5.0) g/dL Globulin (2.2-3.9) gm/dL Albumin/Globulin Ratio (1.0-2.1) Blood Type A POSITIVE Antibody Screen Negative 04/16/18 04/16/18 04/16/18 Range/Units 10:18 10:18 07:11 WBC (4.8-10.8) K/uL RBC (3.80-5.20) Mil/uL Hgb (11.0-16.0) g/dL Hct (34.0-47.0) % MCV (81.0-99.0) fL MCH (27.0-31.0) pg MCHC (33.0-37.0) g/dL RDW (11.5-14.5) % Plt Count (130-400) K/uL MPV (7.2-11.7) fL Neut % (Auto) (50.0-75.0) % Lymph % (Auto) (20.0-40.0) % Forrest % (Auto) (0.0-10.0) % Eos % (Auto) (0.0-4.0) % Baso % (Auto) (0.0-2.0) % Neut # (Auto) (1.8-7.0) K/uL Lymph # (Auto) (1.0-4.3) K/uL Forrest # (Auto) (0.0-0.8) K/uL Eos # (Auto) (0.0-0.7) K/uL Baso # (Auto) (0.0-0.2) K/uL Neutrophils % (Manual) (50-75) % Band Neutrophils % (0-2) % Lymphocytes % (Manual) (20-40) % Monocytes % (Manual) (0-10) % Platelet Estimate (NORMAL) Polychromasia Hypochromasia (manual) Anisocytosis (manual) Target Cells Ovalocytes PT 18.9 H (9.7-12.2) SECONDS INR 1.7 Fibrinogen 512 H (200-400) mg/dL Puncture Site pCO2 (35-45) mm/Hg pO2 (80-100) mm/Hg HCO3 (21-28) mmol/L ABG pH (7.35-7.45) ABG Total CO2 (22-28) mmol/L ABG O2 Saturation (95-98) % ABG Base Excess (-2.0-3.0) mmol/L ABG Hemoglobin (11.7-17.4) g/dL ABG Carboxyhemoglobin (0.5-1.5) % POC ABG HHb (Measured) (0.0-5.0) % ABG Methemoglobin (0.0-3.0) % Pawel Test A-a O2 Difference mm/Hg Respiratory Index Hgb O2 Saturation (95.0-98.0) % Vent Mode FiO2 % Sodium (132-148) mmol/L Potassium (3.6-5.2) mmol/L Chloride (98-107) mmol/L Carbon Dioxide (22-30) mmol/L Anion Gap (10-20) BUN (7-17) mg/dL Creatinine (0.7-1.2) mg/dL Est GFR ( Amer) Est GFR (Non-Af Amer) POC Glucose (mg/dL) 81 (65-110) mg/dL Random Glucose (65-105) mg/dL Lactic Acid 1.3 (0.7-2.1) mmol/L Calcium (8.6-10.4) mg/dl Phosphorus (2.5-4.5) mg/dL Magnesium (1.6-2.3) mg/dL Total Bilirubin (0.2-1.3) mg/dL AST (14-36) U/L ALT (9-52) U/L Alkaline Phosphatase (38-126) U/L Total Protein (6.3-8.3) g/dL Albumin (3.5-5.0) g/dL Globulin (2.2-3.9) gm/dL Albumin/Globulin Ratio (1.0-2.1) Blood Type Antibody Screen 04/16/18 04/16/18 04/16/18 Range/Units 06:21 06:21 05:21 WBC 6.1 (4.8-10.8) K/uL RBC 3.55 L (3.80-5.20) Mil/uL Hgb 9.5 L (11.0-16.0) g/dL Hct 30.2 L (34.0-47.0) % MCV 85.2 (81.0-99.0) fL MCH 26.9 L (27.0-31.0) pg MCHC 31.5 L (33.0-37.0) g/dL RDW 26.0 H (11.5-14.5) % Plt Count 39 L (130-400) K/uL MPV 10.7 (7.2-11.7) fL Neut % (Auto) 93.9 H (50.0-75.0) % Lymph % (Auto) 2.5 L (20.0-40.0) % Forrest % (Auto) 3.0 (0.0-10.0) % Eos % (Auto) 0.3 (0.0-4.0) % Baso % (Auto) 0.3 (0.0-2.0) % Neut # (Auto) 5.8 (1.8-7.0) K/uL Lymph # (Auto) 0.2 L (1.0-4.3) K/uL Forrest # (Auto) 0.2 (0.0-0.8) K/uL Eos # (Auto) 0.0 (0.0-0.7) K/uL Baso # (Auto) 0.0 (0.0-0.2) K/uL Neutrophils % (Manual) 93 H (50-75) % Band Neutrophils % 3 H (0-2) % Lymphocytes % (Manual) 2 L (20-40) % Monocytes % (Manual) 2 (0-10) % Platelet Estimate Decreased L (NORMAL) Polychromasia Slight Hypochromasia (manual) Slight Anisocytosis (manual) Moderate Target Cells Slight Ovalocytes Slight PT (9.7-12.2) SECONDS INR Fibrinogen (200-400) mg/dL Puncture Site R rad pCO2 46 H (35-45) mm/Hg pO2 162 H (80-100) mm/Hg HCO3 30.5 H (21-28) mmol/L ABG pH 7.45 (7.35-7.45) ABG Total CO2 33.4 H (22-28) mmol/L ABG O2 Saturation 99.3 H (95-98) % ABG Base Excess 7.2 H (-2.0-3.0) mmol/L ABG Hemoglobin 9.6 L (11.7-17.4) g/dL ABG Carboxyhemoglobin 2.0 H (0.5-1.5) % POC ABG HHb (Measured) 0.7 (0.0-5.0) % ABG Methemoglobin 1.4 (0.0-3.0) % Pawel Test Pos A-a O2 Difference 137.0 mm/Hg Respiratory Index 0.8 Hgb O2 Saturation 95.8 (95.0-98.0) % Vent Mode Bipap FiO2 50.0 % Sodium 134 (132-148) mmol/L Potassium 3.4 L (3.6-5.2) mmol/L Chloride 96 L (98-107) mmol/L Carbon Dioxide 32 H (22-30) mmol/L Anion Gap 10 (10-20) BUN 62 H (7-17) mg/dL Creatinine 1.3 H (0.7-1.2) mg/dL Est GFR ( Amer) 47 Est GFR (Non-Af Amer) 39 POC Glucose (mg/dL) (65-110) mg/dL Random Glucose 61 L D (65-105) mg/dL Lactic Acid (0.7-2.1) mmol/L Calcium 7.8 L (8.6-10.4) mg/dl Phosphorus 3.9 (2.5-4.5) mg/dL Magnesium 2.2 (1.6-2.3) mg/dL Total Bilirubin 1.5 H (0.2-1.3) mg/dL AST 7 L (14-36) U/L ALT 25 (9-52) U/L Alkaline Phosphatase 46 (38-126) U/L Total Protein 4.1 L (6.3-8.3) g/dL Albumin 1.9 L (3.5-5.0) g/dL Globulin 2.2 (2.2-3.9) gm/dL Albumin/Globulin Ratio 0.8 L (1.0-2.1) Blood Type Antibody Screen 04/15/18 04/15/18 04/15/18 Range/Units 21:35 16:45 11:20 WBC (4.8-10.8) K/uL RBC (3.80-5.20) Mil/uL Hgb (11.0-16.0) g/dL Hct (34.0-47.0) % MCV (81.0-99.0) fL MCH (27.0-31.0) pg MCHC (33.0-37.0) g/dL RDW (11.5-14.5) % Plt Count (130-400) K/uL MPV (7.2-11.7) fL Neut % (Auto) (50.0-75.0) % Lymph % (Auto) (20.0-40.0) % Forrest % (Auto) (0.0-10.0) % Eos % (Auto) (0.0-4.0) % Baso % (Auto) (0.0-2.0) % Neut # (Auto) (1.8-7.0) K/uL Lymph # (Auto) (1.0-4.3) K/uL Forrest # (Auto) (0.0-0.8) K/uL Eos # (Auto) (0.0-0.7) K/uL Baso # (Auto) (0.0-0.2) K/uL Neutrophils % (Manual) (50-75) % Band Neutrophils % (0-2) % Lymphocytes % (Manual) (20-40) % Monocytes % (Manual) (0-10) % Platelet Estimate (NORMAL) Polychromasia Hypochromasia (manual) Anisocytosis (manual) Target Cells Ovalocytes PT (9.7-12.2) SECONDS INR Fibrinogen (200-400) mg/dL Puncture Site pCO2 (35-45) mm/Hg pO2 (80-100) mm/Hg HCO3 (21-28) mmol/L ABG pH (7.35-7.45) ABG Total CO2 (22-28) mmol/L ABG O2 Saturation (95-98) % ABG Base Excess (-2.0-3.0) mmol/L ABG Hemoglobin (11.7-17.4) g/dL ABG Carboxyhemoglobin (0.5-1.5) % POC ABG HHb (Measured) (0.0-5.0) % ABG Methemoglobin (0.0-3.0) % Pawel Test A-a O2 Difference mm/Hg Respiratory Index Hgb O2 Saturation (95.0-98.0) % Vent Mode FiO2 % Sodium (132-148) mmol/L Potassium (3.6-5.2) mmol/L Chloride (98-107) mmol/L Carbon Dioxide (22-30) mmol/L Anion Gap (10-20) BUN (7-17) mg/dL Creatinine (0.7-1.2) mg/dL Est GFR ( Amer) Est GFR (Non-Af Amer) POC Glucose (mg/dL) 83 80 91 (65-110) mg/dL Random Glucose (65-105) mg/dL Lactic Acid (0.7-2.1) mmol/L Calcium (8.6-10.4) mg/dl Phosphorus (2.5-4.5) mg/dL Magnesium (1.6-2.3) mg/dL Total Bilirubin (0.2-1.3) mg/dL AST (14-36) U/L ALT (9-52) U/L Alkaline Phosphatase (38-126) U/L Total Protein (6.3-8.3) g/dL Albumin (3.5-5.0) g/dL Globulin (2.2-3.9) gm/dL Albumin/Globulin Ratio (1.0-2.1) Blood Type Antibody Screen Laboratory Results - last 24 hr 04/15/18 04/15/18 04/15/18 11:20 16:45 21:35 WBC RBC Hgb Hct MCV MCH MCHC RDW Plt Count MPV Neut % (Auto) Lymph % (Auto) Forrest % (Auto) Eos % (Auto) Baso % (Auto) Neut # (Auto) Lymph # (Auto) Forrest # (Auto) Eos # (Auto) Baso # (Auto) Neutrophils % (Manual) Band Neutrophils % Lymphocytes % (Manual) Monocytes % (Manual) Platelet Estimate Polychromasia Hypochromasia (manual) Anisocytosis (manual) Target Cells Ovalocytes PT INR Fibrinogen Puncture Site pCO2 pO2 HCO3 ABG pH ABG Total CO2 ABG O2 Saturation ABG Base Excess ABG Hemoglobin ABG Carboxyhemoglobin POC ABG HHb (Measured) ABG Methemoglobin Pawel Test A-a O2 Difference Respiratory Index Hgb O2 Saturation Vent Mode FiO2 Sodium Potassium Chloride Carbon Dioxide Anion Gap BUN Creatinine Est GFR ( Amer) Est GFR (Non-Af Amer) POC Glucose (mg/dL) 91 80 83 Random Glucose Lactic Acid Calcium Phosphorus Magnesium Total Bilirubin AST ALT Alkaline Phosphatase Total Protein Albumin Globulin Albumin/Globulin Ratio Blood Type Antibody Screen 04/16/18 04/16/18 04/16/18 05:21 06:21 06:21 WBC 6.1 RBC 3.55 L Hgb 9.5 L Hct 30.2 L MCV 85.2 MCH 26.9 L MCHC 31.5 L RDW 26.0 H Plt Count 39 L MPV 10.7 Neut % (Auto) 93.9 H Lymph % (Auto) 2.5 L Forrest % (Auto) 3.0 Eos % (Auto) 0.3 Baso % (Auto) 0.3 Neut # (Auto) 5.8 Lymph # (Auto) 0.2 L Forrest # (Auto) 0.2 Eos # (Auto) 0.0 Baso # (Auto) 0.0 Neutrophils % (Manual) 93 H Band Neutrophils % 3 H Lymphocytes % (Manual) 2 L Monocytes % (Manual) 2 Platelet Estimate Decreased L Polychromasia Slight Hypochromasia (manual) Slight Anisocytosis (manual) Moderate Target Cells Slight Ovalocytes Slight PT INR Fibrinogen Puncture Site R rad pCO2 46 H pO2 162 H HCO3 30.5 H ABG pH 7.45 ABG Total CO2 33.4 H ABG O2 Saturation 99.3 H ABG Base Excess 7.2 H ABG Hemoglobin 9.6 L ABG Carboxyhemoglobin 2.0 H POC ABG HHb (Measured) 0.7 ABG Methemoglobin 1.4 Pawel Test Pos A-a O2 Difference 137.0 Respiratory Index 0.8 Hgb O2 Saturation 95.8 Vent Mode Bipap FiO2 50.0 Sodium 134 Potassium 3.4 L Chloride 96 L Carbon Dioxide 32 H Anion Gap 10 BUN 62 H Creatinine 1.3 H Est GFR ( Amer) 47 Est GFR (Non-Af Amer) 39 POC Glucose (mg/dL) Random Glucose 61 L D Lactic Acid Calcium 7.8 L Phosphorus 3.9 Magnesium 2.2 Total Bilirubin 1.5 H AST 7 L ALT 25 Alkaline Phosphatase 46 Total Protein 4.1 L Albumin 1.9 L Globulin 2.2 Albumin/Globulin Ratio 0.8 L Blood Type Antibody Screen 04/16/18 04/16/18 04/16/18 07:11 10:18 10:18 WBC RBC Hgb Hct MCV MCH MCHC RDW Plt Count MPV Neut % (Auto) Lymph % (Auto) Forrest % (Auto) Eos % (Auto) Baso % (Auto) Neut # (Auto) Lymph # (Auto) Forrest # (Auto) Eos # (Auto) Baso # (Auto) Neutrophils % (Manual) Band Neutrophils % Lymphocytes % (Manual) Monocytes % (Manual) Platelet Estimate Polychromasia Hypochromasia (manual) Anisocytosis (manual) Target Cells Ovalocytes PT 18.9 H INR 1.7 Fibrinogen 512 H Puncture Site pCO2 pO2 HCO3 ABG pH ABG Total CO2 ABG O2 Saturation ABG Base Excess ABG Hemoglobin ABG Carboxyhemoglobin POC ABG HHb (Measured) ABG Methemoglobin Pawel Test A-a O2 Difference Respiratory Index Hgb O2 Saturation Vent Mode FiO2 Sodium Potassium Chloride Carbon Dioxide Anion Gap BUN Creatinine Est GFR ( Amer) Est GFR (Non-Af Amer) POC Glucose (mg/dL) 81 Random Glucose Lactic Acid 1.3 Calcium Phosphorus Magnesium Total Bilirubin AST ALT Alkaline Phosphatase Total Protein Albumin Globulin Albumin/Globulin Ratio Blood Type Antibody Screen 04/16/18 04/16/18 04/16/18 10:23 12:05 15:59 WBC RBC Hgb Hct MCV MCH MCHC RDW Plt Count MPV Neut % (Auto) Lymph % (Auto) Forrest % (Auto) Eos % (Auto) Baso % (Auto) Neut # (Auto) Lymph # (Auto) Forrest # (Auto) Eos # (Auto) Baso # (Auto) Neutrophils % (Manual) Band Neutrophils % Lymphocytes % (Manual) Monocytes % (Manual) Platelet Estimate Polychromasia Hypochromasia (manual) Anisocytosis (manual) Target Cells Ovalocytes PT INR Fibrinogen Puncture Site pCO2 pO2 HCO3 ABG pH ABG Total CO2 ABG O2 Saturation ABG Base Excess ABG Hemoglobin ABG Carboxyhemoglobin POC ABG HHb (Measured) ABG Methemoglobin Pawel Test A-a O2 Difference Respiratory Index Hgb O2 Saturation Vent Mode FiO2 Sodium Potassium Chloride Carbon Dioxide Anion Gap BUN Creatinine Est GFR ( Amer) Est GFR (Non-Af Amer) POC Glucose (mg/dL) 82 83 Random Glucose Lactic Acid Calcium Phosphorus Magnesium Total Bilirubin AST ALT Alkaline Phosphatase Total Protein Albumin Globulin Albumin/Globulin Ratio Blood Type A POSITIVE Antibody Screen Negative Radiology Impressions: Radiology Impressions Abdomen/Pelvis CT 04/15/18 07:25 IMPRESSION: Abdominal free air persists. Fat, fluid, and air within a left ventral abdominal hernia; hernia mouth measures approximately 2.2 cm. Diffuse soft tissue edema/anasarca. Severe fecal retention throughout the colon with suspected impaction at the rectosigmoid colon. Short segment small bowel wall thickening. Recommend attention on follow-up. Infectious, inflammatory, ischemic etiologies may be considered. Pancreatic atrophy. Dilated pancreatic duct measuring approximately 5 mm. 11 mm hypodensity in the pancreatic body appears cystic. Differential diagnosis includes small cystic neoplasm versus sequela of prior pancreatitis (dilated side duct radicles or tiny pseudocyst). Cholelithiasis. Suspect soft tissue or sludge within the gallbladder fossa. Moderate sized right pleural effusion and consolidation. Left basilar atelectasis. Additional incidental findings as above. Critical Care Progress Note - Nutrition Nutrition: Nutrition Category Date Time Status NPO Diet [DIET] Diets 04/15/18 Breakfast Active Assessment/Plan - Assessment and Plan (Free Text) Plan: Above patient seen and examined at bedside. Patient with free air from lower GI bleed. Patient currently in septic shock. -Daughter reqeusted conservative treatment, including pressors, IVF, ABX, but did not elect for surgery. Patient's daughter was informed of the prognosis of sepsis without source control- high likely farooq of . -Septic shock: not in DIC, fibrinogen >150, thrombocytopenia, transfuse 1 unit platelet, continue abx, serial lactic -IVF -Transfuse platelet and FFP + Vitamin K -keep NPO -continue dvt SCDS (low platelets) -PUD ppx protonix Prognosis very poor without source control -above note reviewed and verified -cc time 35 minutes -Daughter noted, she will likely make withdrawal of care after son also sees patient on Thursday. -DNR currently daughter OK with intubation. - Date & Time Date: 04/16/18 Time: 16:35
--- NOTE | 2018-04-16 12:21 | CP.PCM.PN ---
Subjective - Date & Time of Evaluation Date of Evaluation: 04/16/18 Time of Evaluation: 12:18 - Subjective Subjective: Still SOB and ON BIPAP. Objective - Vital Signs/Intake and Output Vital Signs (last 24 hours): Temp Pulse Resp BP Pulse Ox 98.2 F 98 H 19 105/74 94 L 04/16/18 04:00 04/16/18 08:40 04/16/18 07:15 04/16/18 06:57 04/16/18 06:57 Intake and Output: 04/16/18 04/16/18 06:59 18:59 Intake Total 300 0 Output Total 610 30 Balance -310 -30 - Medications Medications: Current Medications Acetaminophen (Tylenol 325mg Tab) 650 mg PO Q6 PRN PRN Reason: Fever >100.4 F Last Admin: 04/02/18 04:36 Dose: 650 mg Albuterol/Ipratropium (Duoneb 3 Mg/0.5 Mg (3 Ml) Ud) 3 ml INH RQ6 [facility] Last Admin: 04/16/18 08:38 Dose: 3 ml Bacitracin (Bacitracin) 0 gm TOP BID [facility] Last Admin: 04/16/18 10:40 Dose: 1 applic Bisacodyl (Dulcolax) 10 mg [place] HS ONE Stop: 04/16/18 22:01 Fluconazole (Diflucan Iv 100 Mg/50 Ml Ns) 50 mls @ 100 mls/hr IVPB DAILY [facility]; Protocol Last Admin: 04/16/18 10:32 Dose: 100 mls/hr Cefepime HCl (Maxipime Iv 1 Gm Premix) 1 gm in 50 mls @ 100 mls/hr IVPB Q12H [facility]; Protocol Last Admin: 04/16/18 04:06 Dose: 100 mls/hr Norepinephrine Bitartrate 4 mg (/ Dextrose) 254 mls @ 15.24 mls/hr IV .[id number] PRN; Protocol PRN Reason: TITRATE PER MD ORDER Last Titration: 04/14/18 14:33 Dose: 0 mcg/min, 0 mls/hr Dextrose/Sodium Chloride (Dextrose 5%/0.45% Ns 1000 Ml) 1,000 mls @ 50 mls/hr IV .Q20H [facility] Last Admin: 04/16/18 09:00 Dose: 50 mls/hr Piperacillin Sod/Tazobactam Sod (Zosyn 2.25 Gm Iv Premix) 2.25 gm in 50 mls @ 100 mls/hr IVPB Q8H [facility]; Protocol Last Admin: 04/16/18 11:37 Dose: 100 mls/hr Metronidazole (Flagyl) 500 mg in 100 mls @ 100 mls/hr IVPB Q8H [facility]; Protocol Insulin Aspart (Novolog) 0 unit SC Q6 [facility]; Protocol Nystatin (Nystop Topical Powder) 1 applic TOP BID [facility] Last Admin: 04/16/18 10:40 Dose: 1 applic Pantoprazole Sodium (Protonix Inj) 40 mg IVP DAILY [facility] Silver Sulfadiazine (Silvadene 1% 20 Gm) 0 ea TOP BID [facility] Last Admin: 04/16/18 10:39 Dose: 1 applic - Labs Labs: 04/16/18 06:21 04/16/18 06:21 PT 18.9 SECONDS (9.7-12.2) H 04/16/18 10:18 INR 1.7 04/16/18 10:18 APTT 37 SECONDS (21-34) H 04/13/18 06:10 - Respiratory Exam Additional comments: On BIPAP But still SOB.. - Cardiovascular Exam Cardiovascular Exam: Irregular Rhythm - Neurological Exam Neurological Exam: Alert Assessment and Plan (1) Atrial fibrillation and flutter Assessment & Plan: Rate control and therapeutic anticoagulation. Status: Acute (2) CHF (congestive heart failure) Assessment & Plan: Diuresis. Fluid restriction. CXR and CT reviewed with resident. Prognosis guarded. Discussed with family bed side. Status: Acute
[2018-04-16] MEDS: (Novolog) Insulin Aspart, Recombinant 100 u/ml 10 ml vial SC SCH ×2 (12:43→17:30)
[2018-04-16] MEDS: metroNIDAZOLE IV 500 mg/100 ml 500 MG/100 ML BAG IVPB SCH ×2 (12:45→19:42)
--- NOTE | 2018-04-16 14:58 | CP.PCM.PN ---
Subjective - Date & Time of Evaluation Date of Evaluation: 04/16/18 Time of Evaluation: 08:00 - Subjective Subjective: Patient seen and examined at bedside. No adverse events overnight. Full history unattainable due to patient being on BIPAP Patient thrombocytopenic Worsening pleural effusion Objective - Vital Signs/Intake and Output Vital Signs (last 24 hours): Temp Pulse Resp BP Pulse Ox 97.6 F 101 H 20 108/86 91 L 04/16/18 12:00 04/16/18 13:17 04/16/18 12:12 04/16/18 12:12 04/16/18 11:02 Intake and Output: 04/16/18 04/16/18 06:59 18:59 Intake Total 300 0 Output Total 610 30 Balance -310 -30 - Medications Medications: Current Medications Acetaminophen (Tylenol 325mg Tab) 650 mg PO Q6 PRN PRN Reason: Fever >100.4 F Last Admin: 04/02/18 04:36 Dose: 650 mg Albuterol/Ipratropium (Duoneb 3 Mg/0.5 Mg (3 Ml) Ud) 3 ml INH RQ6 KEV Last Admin: 04/16/18 13:16 Dose: 3 ml Bacitracin (Bacitracin) 0 gm TOP BID KEV Last Admin: 04/16/18 10:40 Dose: 1 applic Bisacodyl (Dulcolax) 10 mg [place] HS ONE Stop: 04/16/18 22:01 Fluconazole (Diflucan Iv 100 Mg/50 Ml Ns) 50 mls @ 100 mls/hr IVPB DAILY [facility]; Protocol Last Admin: 04/16/18 10:32 Dose: 100 mls/hr Cefepime HCl (Maxipime Iv 1 Gm Premix) 1 gm in 50 mls @ 100 mls/hr IVPB Q12H [facility]; Protocol Last Admin: 04/16/18 04:06 Dose: 100 mls/hr Norepinephrine Bitartrate 4 mg (/ Dextrose) 254 mls @ 15.24 mls/hr IV .[id number] PRN; Protocol PRN Reason: TITRATE PER MD ORDER Last Titration: 04/14/18 14:33 Dose: 0 mcg/min, 0 mls/hr Dextrose/Sodium Chloride (Dextrose 5%/0.45% Ns 1000 Ml) 1,000 mls @ 50 mls/hr IV .Q20H KEV Last Admin: 04/16/18 09:00 Dose: 50 mls/hr Piperacillin Sod/Tazobactam Sod (Zosyn 2.25 Gm Iv Premix) 2.25 gm in 50 mls @ 100 mls/hr IVPB Q8H [facility]; Protocol Last Admin: 04/16/18 11:37 Dose: 100 mls/hr Metronidazole (Flagyl) 500 mg in 100 mls @ 100 mls/hr IVPB Q8H [facility]; Protocol Last Admin: 04/16/18 12:45 Dose: 100 mls/hr Insulin Aspart (Novolog) 0 unit SC Q6 [facility]; Protocol Last Admin: 04/16/18 12:43 Dose: Not Given Nystatin (Nystop Topical Powder) 1 applic TOP BID [facility] Last Admin: 04/16/18 10:40 Dose: 1 applic Pantoprazole Sodium (Protonix Inj) 40 mg IVP DAILY [facility] Silver Sulfadiazine (Silvadene 1% 20 Gm) 0 ea TOP BID [facility] Last Admin: 04/16/18 10:39 Dose: 1 applic - Labs Labs: 04/16/18 06:21 04/16/18 06:21 PT 18.9 SECONDS (9.7-12.2) H 04/16/18 10:18 INR 1.7 04/16/18 10:18 APTT 37 SECONDS (21-34) H 04/13/18 06:10 - Head Exam Head Exam: ATRAUMATIC, NORMOCEPHALIC - ENT Exam ENT Exam: Mucous Membranes Moist - Neck Exam Neck Exam: Normal Inspection - Respiratory Exam Respiratory Exam: Decreased Breath Sounds - Cardiovascular Exam Cardiovascular Exam: REGULAR RHYTHM Assessment and Plan (1) Acute respiratory failure Status: Acute (2) Atrial fibrillation and flutter Status: Acute (3) CHF (congestive heart failure) Status: Acute (4) Pleural effusion Status: Acute
--- NOTE | 2018-04-16 18:05 | CP.PCM.PN ---
Subjective - Date & Time of Evaluation Date of Evaluation: 04/16/18 Time of Evaluation: 09:00 - Subjective Subjective: doing poorly on BiPaP afebrile chest tube in place Objective - Vital Signs/Intake and Output Vital Signs (last 24 hours): Temp Pulse Resp BP Pulse Ox 97.7 F 100 H 13 102/80 88 L 04/16/18 16:00 04/16/18 17:00 04/16/18 17:00 04/16/18 16:59 04/16/18 17:00 Intake and Output: 04/16/18 04/16/18 06:59 18:59 Intake Total 300 550 Output Total 610 247 Balance -310 303 - Medications Medications: Current Medications Acetaminophen (Tylenol 325mg Tab) 650 mg PO Q6 PRN PRN Reason: Fever >100.4 F Last Admin: 04/02/18 04:36 Dose: 650 mg Albuterol/Ipratropium (Duoneb 3 Mg/0.5 Mg (3 Ml) Ud) 3 ml INH RQ6 KEV Last Admin: 04/16/18 13:16 Dose: 3 ml Bacitracin (Bacitracin) 0 gm TOP BID KEV Last Admin: 04/16/18 10:40 Dose: 1 applic Bisacodyl (Dulcolax) 10 mg [place] HS ONE Stop: 04/16/18 22:01 Fluconazole (Diflucan Iv 100 Mg/50 Ml Ns) 50 mls @ 100 mls/hr IVPB DAILY [facility]; Protocol Last Admin: 04/16/18 10:32 Dose: 100 mls/hr Cefepime HCl (Maxipime Iv 1 Gm Premix) 1 gm in 50 mls @ 100 mls/hr IVPB Q12H [facility]; Protocol Last Admin: 04/16/18 04:06 Dose: 100 mls/hr Norepinephrine Bitartrate 4 mg (/ Dextrose) 254 mls @ 15.24 mls/hr IV .[id number] PRN; Protocol PRN Reason: TITRATE PER MD ORDER Last Titration: 04/14/18 14:33 Dose: 0 mcg/min, 0 mls/hr Dextrose/Sodium Chloride (Dextrose 5%/0.45% Ns 1000 Ml) 1,000 mls @ 50 mls/hr IV .Q20H [facility] Last Admin: 04/16/18 09:00 Dose: 50 mls/hr Metronidazole (Flagyl) 500 mg in 100 mls @ 100 mls/hr IVPB Q8H [facility]; Protocol Last Admin: 04/16/18 12:45 Dose: 100 mls/hr Cefepime HCl (Maxipime Iv 1 Gm Premix) 1 gm in 50 mls @ 100 mls/hr IVPB Q12H [facility]; Protocol Insulin Aspart (Novolog) 0 unit SC Q6 [facility]; Protocol Last Admin: 04/16/18 12:43 Dose: Not Given Nystatin (Nystop Topical Powder) 1 applic TOP BID [facility] Last Admin: 04/16/18 10:40 Dose: 1 applic Pantoprazole Sodium (Protonix Inj) 40 mg IVP DAILY [facility] Last Admin: 04/16/18 15:32 Dose: 40 mg Silver Sulfadiazine (Silvadene 1% 20 Gm) 0 ea TOP BID [facility] Last Admin: 04/16/18 10:39 Dose: 1 applic - Labs Labs: 04/16/18 06:21 04/16/18 06:21 PT 18.9 SECONDS (9.7-12.2) H 04/16/18 10:18 INR 1.7 04/16/18 10:18 APTT 37 SECONDS (21-34) H 04/13/18 06:10 - Constitutional Appears: Non-toxic, Chronically Ill - Head Exam Head Exam: NORMOCEPHALIC - Eye Exam Eye Exam: absent: Scleral icterus - ENT Exam ENT Exam: Mucous Membranes Dry - Neck Exam Neck Exam: absent: Lymphadenopathy - Respiratory Exam Respiratory Exam: Decreased Breath Sounds - Cardiovascular Exam Cardiovascular Exam: REGULAR RHYTHM - GI/Abdominal Exam GI & Abdominal Exam: Distended, Soft, Diminished Bowel Sounds. absent: Tenderness - Rectal Exam Rectal Exam: Deferred - Exam Exam: NORMAL INSPECTION - Extremities Exam Extremities Exam: Pedal Edema - Back Exam Back Exam: absent: CVA tenderness (L), CVA tenderness (R) - Neurological Exam Neurological Exam: Altered - Psychiatric Exam Psychiatric exam: Depressed Assessment and Plan (1) Acute respiratory failure Status: Acute (2) Atrial fibrillation and flutter Status: Acute (3) CHF (congestive heart failure) Status: Acute (4) Pleural effusion Status: Acute - Assessment and Plan (Free Text) Assessment: no new positive cultures cont cefepime/ flagyl d/c zosyn
[2018-04-17] MEDS: Albuterol-Ipratrop 3 mg / 0.5 (3 ml) UD INH SCH ×4 (02:44→19:59)
[2018-04-17] MEDS: metroNIDAZOLE IV 500 mg/100 ml 500 MG/100 ML BAG IVPB SCH ×3 (02:48→19:00)
[2018-04-17] MEDS: (Novolog) Insulin Aspart, Recombinant 100 u/ml 10 ml vial SC SCH ×4 (06:28→18:00)
[2018-04-17] MEDS: Dextrose 5%/0.45% NS 1,000 ML IV SCH ×2 (06:28→06:47)
[2018-04-17 06:44] LABS: BASO % 0.1 % (0.0-2.0); EOS % 0.9 % (0.0-4.0); HEMOGLOBIN 10.1 g/dL (11.0-16.0); LYMPH # 0.2 K/uL (1.0-4.3); LYMPH % 3.3 % (20.0-40.0); MEAN CELL VOLUME 85.1 fL (81.0-99.0); MEAN CORPUSCULAR HEMOGLOBIN 26.6 pg (27.0-31.0); MEAN CORPUSCULAR HGB CONC 31.3 g/dL (33.0-37.0); MEAN PLATELET VOLUME 10.3 fL (7.2-11.7); MONO # 0.2 K/uL (0.0-0.8); MONO % 3.4 % (0.0-10.0); NEUT # 4.3 K/uL (1.8-7.0); NEUT % 92.3 % (50.0-75.0); NRBC % 0.1 % (0.0-2.0); PLATELET COUNT 39 K/uL (130-400); RBC 3.78 Mil/uL (3.80-5.20); RED CELL DISTRIBUTION WIDTH 25.6 % (11.5-14.5); WHITE BLOOD COUNT 4.7 K/uL (4.8-10.8)
[2018-04-17] MEDS: Cefepime IV 1 gm in Dextrose 1 GM/50 ML BAG IVPB SCH ×2 (06:45→18:00)
[2018-04-17 07:10] LABS: ALB/GLOB RATIO 0.9 (1.0-2.1); ALBUMIN 2.1 g/dL (3.5-5.0); CALCIUM 7.9 mg/dl (8.6-10.4)
[2018-04-17] MEDS: HYDROmorphone 0.5 mg/0.5 ml ISec IVP STA ×2 (08:15→12:01)
[2018-04-17] MEDS ORDERED: Phytonadione 10 mg/ml Inj (Adult) IV STA ×2 (08:19→12:36)
[2018-04-17] MEDS ORDERED: HYDROmorphone 0.5 mg/0.5 ml ISec IVP PRN (08:22)
--- NOTE | 2018-04-17 08:37 | CP.CCUPN ---
CCU Subjective - Physician Review Subjective (Free Text): Patient more dyspneic on bi-pap. left index finger bleeding overnight post POC blood glucose, 04/17/18 08:37 Critical Care Time Spent (in minutes): 40 CCU Objective - Vital Signs / Intake & Output Vital Signs (Last 4 hours): Vital Signs Pulse Resp BP Pulse Ox 04/17/18 07:30 114 H 04/17/18 06:20 105 H 13 132/79 100 04/17/18 05:19 101 H 17 102/80 100 Intake and Output (Last 8hrs): Intake & Output 04/16/18 04/17/18 04/17/18 22:59 06:59 14:59 Intake Total 800 600 Output Total 245 150 Balance 555 450 Intake: Intake, IV Amount 450 600 Left Distal Port Internal 200 Jugular Left Medial Port Internal 450 400 Jugular Blood Product 350 Output: Chest Tube Drainage 90 Left Posterior Chest 90 Urine 155 150 Urethral ([place]) 155 150 - Physical Exam Head: Positive for: Atraumatic, Normocephalic, Other (central line in left IJ) Pupils: Positive for: PERRL Extroacular Muscles: Positive for: EOMI Conjunctiva: Positive for: Normal Mouth: Positive for: Dry, Other (on bipap) Neck: Positive for: Normal Range of Motion. Negative for: JVD, Lymphadenopathy Respiratory/Chest: Positive for: Good Air Exchange, Decreased Breath Sounds. Negative for: Accessory Muscle Use, Wheezes, Tachypneic Cardiovascular: Positive for: Regular Rate and Rhythm, Normal S1, S2. Negative for: Murmurs, Irregular Rhythm Abdomen: Positive for: Tenderness, Normal Bowel Sounds, Other (umbilical hernia). Negative for: Distention, Peritoneal Signs, Rebound, Guarding Genitourinary/Pelvic Exam: Positive for: Other ([place] in place for strict Is/Os) Upper Extremity: Positive for: Normal Inspection, Edema. Negative for: Cyanosis Lower Extremity: Positive for: Normal Inspection, Edema Neurological: Positive for: GCS=15, Speech Normal Skin: Positive for: Dry, Normal Color, Other (chest tube in posterior left back, right foot ulcer, and sacral unstageable ulcer). Negative for: Diaphoretic Psychiatric: Positive for: Alert, Oriented x 3 - Medications Active Medications: Active Medications Generic Name Dose Route Start Last Admin Trade Name Freq PRN Reason Stop Dose Admin Acetaminophen 650 mg 03/23/18 15:59 04/02/18 04:36 Tylenol 325mg Tab PO 650 mg Q6 PRN Administration Fever >100.4 F Albuterol/Ipratropium 3 ml 04/02/18 14:00 04/17/18 07:10 Duoneb 3 Mg/0.5 Mg (3 Ml) Ud INH 3 ml RQ6 KEV Administration Bacitracin 0 gm 04/01/18 18:00 04/16/18 18:12 Bacitracin TOP 1 applic BID KEV Administration Hydromorphone HCl 0.5 mg 04/17/18 08:22 Dilaudid IVP Q6H PRN Pain, moderate (4-7) Fluconazole 50 mls @ 100 mls/hr 03/27/18 10:00 04/16/18 10:32 Diflucan Iv 100 Mg/50 Ml Ns IVPB 100 mls/hr DAILY KEV Administration Protocol Norepinephrine Bitartrate 4 mg 254 mls @ 15.24 mls/hr 04/12/18 18:52 04/14/18 14:33 / Dextrose IV 0 mcg/min .[id number] PRN 0 mls/hr TITRATE PER MD ORDER Titration Protocol 4 MCG/MIN Dextrose/Sodium Chloride 1,000 mls @ 50 mls/hr 04/16/18 08:45 04/17/18 06:47 Dextrose 5%/0.45% Ns 1000 Ml IV 50 mls/hr .Q20H KEV Administration Metronidazole 500 mg in 100 mls @ 100 mls/hr 04/16/18 11:00 04/17/18 02:48 Flagyl IVPB 100 mls/hr Q8H KEV Administration Protocol Cefepime HCl 1 gm in 50 mls @ 100 mls/hr 04/17/18 06:00 04/17/18 06:45 Maxipime Iv 1 Gm Premix IVPB 100 mls/hr Q12H KEV Administration Protocol Propofol 1,000 mg in 100 mls @ 3.001 mls/hr 04/17/18 08:21 Diprivan IV .Q24H PRN TITRATE PER MD ORDER Protocol 5 MCG/KG/MIN Insulin Aspart 0 unit 04/16/18 12:00 04/17/18 06:28 Novolog SC Not Given Q6 KEV Protocol Nystatin 1 applic 03/23/18 18:00 04/16/18 18:12 Nystop Topical Powder TOP 1 applic BID KEV Administration Pantoprazole Sodium 40 mg 04/16/18 12:00 04/16/18 15:32 Protonix Inj IVP 40 mg DAILY KEV Administration Silver Sulfadiazine 0 ea 03/26/18 10:00 04/16/18 18:12 Silvadene 1% 20 Gm TOP 1 applic BID KEV Administration - Patient Studies Lab Studies: Lab Studies 04/17/18 04/17/18 04/17/18 Range/Units 06:20 06:20 06:20 WBC 4.7 L (4.8-10.8) K/uL RBC 3.78 L (3.80-5.20) Mil/uL Hgb 10.1 L (11.0-16.0) g/dL Hct 32.2 L (34.0-47.0) % MCV 85.1 (81.0-99.0) fL MCH 26.6 L (27.0-31.0) pg MCHC 31.3 L (33.0-37.0) g/dL RDW 25.6 H (11.5-14.5) % Plt Count 39 L (130-400) K/uL MPV 10.3 (7.2-11.7) fL Neut % (Auto) 92.3 H (50.0-75.0) % Lymph % (Auto) 3.3 L (20.0-40.0) % M[place]ulloch % (Auto) 3.4 (0.0-10.0) % Eos % (Auto) 0.9 (0.0-4.0) % Baso % (Auto) 0.1 (0.0-2.0) % Neut # (Auto) 4.3 (1.8-7.0) K/uL Lymph # (Auto) 0.2 L (1.0-4.3) K/uL [place]och # (Auto) 0.2 (0.0-0.8) K/uL Eos # (Auto) 0.0 (0.0-0.7) K/uL Baso # (Auto) 0.0 (0.0-0.2) K/uL Neutrophils % (Manual) (50-75) % Band Neutrophils % (0-2) % Lymphocytes % (Manual) (20-40) % Monocytes % (Manual) (0-10) % Platelet Estimate (NORMAL) Polychromasia Hypochromasia (manual) Anisocytosis (manual) Target Cells Ovalocytes PT (9.7-12.2) SECONDS INR Fibrinogen (200-400) mg/dL Sodium 135 (132-148) mmol/L Potassium 3.8 (3.6-5.2) mmol/L Chloride 97 L (98-107) mmol/L Carbon Dioxide 30 (22-30) mmol/L Anion Gap 11 (10-20) BUN 66 H (7-17) mg/dL Creatinine 1.4 H (0.7-1.2) mg/dL Est GFR ( Amer) 43 Est GFR (Non-Af Amer) 36 POC Glucose (mg/dL) (65-110) mg/dL Random Glucose 106 H D (65-105) mg/dL Lactic Acid 1.6 (0.7-2.1) mmol/L Calcium 7.9 L (8.6-10.4) mg/dl Phosphorus 4.4 (2.5-4.5) mg/dL Magnesium 2.1 (1.6-2.3) mg/dL Total Bilirubin 1.5 H (0.2-1.3) mg/dL AST 9 L D (14-36) U/L ALT 20 (9-52) U/L Alkaline Phosphatase 49 (38-126) U/L Total Protein 4.5 L (6.3-8.3) g/dL Albumin 2.1 L (3.5-5.0) g/dL Globulin 2.4 (2.2-3.9) gm/dL Albumin/Globulin Ratio 0.9 L (1.0-2.1) Blood Type Antibody Screen 04/17/18 04/16/18 04/16/18 Range/Units 06:10 23:48 15:59 WBC (4.8-10.8) K/uL RBC (3.80-5.20) Mil/uL Hgb (11.0-16.0) g/dL Hct (34.0-47.0) % MCV (81.0-99.0) fL MCH (27.0-31.0) pg MCHC (33.0-37.0) g/dL RDW (11.5-14.5) % Plt Count (130-400) K/uL MPV (7.2-11.7) fL Neut % (Auto) (50.0-75.0) % Lymph % (Auto) (20.0-40.0) % [place]ulloch % (Auto) (0.0-10.0) % Eos % (Auto) (0.0-4.0) % Baso % (Auto) (0.0-2.0) % Neut # (Auto) (1.8-7.0) K/uL Lymph # (Auto) (1.0-4.3) K/uL [place]ulloch # (Auto) (0.0-0.8) K/uL Eos # (Auto) (0.0-0.7) K/uL Baso # (Auto) (0.0-0.2) K/uL Neutrophils % (Manual) (50-75) % Band Neutrophils % (0-2) % Lymphocytes % (Manual) (20-40) % Monocytes % (Manual) (0-10) % Platelet Estimate (NORMAL) Polychromasia Hypochromasia (manual) Anisocytosis (manual) Target Cells Ovalocytes PT (9.7-12.2) SECONDS INR Fibrinogen (200-400) mg/dL Sodium (132-148) mmol/L Potassium (3.6-5.2) mmol/L Chloride (98-107) mmol/L Carbon Dioxide (22-30) mmol/L Anion Gap (10-20) BUN (7-17) mg/dL Creatinine (0.7-1.2) mg/dL Est GFR ( Amer) Est GFR (Non-Af Amer) POC Glucose (mg/dL) 128 H 101 83 (65-110) mg/dL Random Glucose (65-105) mg/dL Lactic Acid (0.7-2.1) mmol/L Calcium (8.6-10.4) mg/dl Phosphorus (2.5-4.5) mg/dL Magnesium (1.6-2.3) mg/dL Total Bilirubin (0.2-1.3) mg/dL AST (14-36) U/L ALT (9-52) U/L Alkaline Phosphatase (38-126) U/L Total Protein (6.3-8.3) g/dL Albumin (3.5-5.0) g/dL Globulin (2.2-3.9) gm/dL Albumin/Globulin Ratio (1.0-2.1) Blood Type Antibody Screen 04/16/18 04/16/18 04/16/18 Range/Units 12:05 10:23 10:18 WBC (4.8-10.8) K/uL RBC (3.80-5.20) Mil/uL Hgb (11.0-16.0) g/dL Hct (34.0-47.0) % MCV (81.0-99.0) fL MCH (27.0-31.0) pg MCHC (33.0-37.0) g/dL RDW (11.5-14.5) % Plt Count (130-400) K/uL MPV (7.2-11.7) fL Neut % (Auto) (50.0-75.0) % Lymph % (Auto) (20.0-40.0) % [place]ulloch % (Auto) (0.0-10.0) % Eos % (Auto) (0.0-4.0) % Baso % (Auto) (0.0-2.0) % Neut # (Auto) (1.8-7.0) K/uL Lymph # (Auto) (1.0-4.3) K/uL [place]ulloch # (Auto) (0.0-0.8) K/uL Eos # (Auto) (0.0-0.7) K/uL Baso # (Auto) (0.0-0.2) K/uL Neutrophils % (Manual) (50-75) % Band Neutrophils % (0-2) % Lymphocytes % (Manual) (20-40) % Monocytes % (Manual) (0-10) % Platelet Estimate (NORMAL) Polychromasia Hypochromasia (manual) Anisocytosis (manual) Target Cells Ovalocytes PT (9.7-12.2) SECONDS INR Fibrinogen (200-400) mg/dL Sodium (132-148) mmol/L Potassium (3.6-5.2) mmol/L Chloride (98-107) mmol/L Carbon Dioxide (22-30) mmol/L Anion Gap (10-20) BUN (7-17) mg/dL Creatinine (0.7-1.2) mg/dL Est GFR ( Amer) Est GFR (Non-Af Amer) POC Glucose (mg/dL) 82 (65-110) mg/dL Random Glucose (65-105) mg/dL Lactic Acid 1.3 (0.7-2.1) mmol/L Calcium (8.6-10.4) mg/dl Phosphorus (2.5-4.5) mg/dL Magnesium (1.6-2.3) mg/dL Total Bilirubin (0.2-1.3) mg/dL AST (14-36) U/L ALT (9-52) U/L Alkaline Phosphatase (38-126) U/L Total Protein (6.3-8.3) g/dL Albumin (3.5-5.0) g/dL Globulin (2.2-3.9) gm/dL Albumin/Globulin Ratio (1.0-2.1) Blood Type A POSITIVE Antibody Screen Negative 04/16/18 04/16/18 Range/Units 10:18 06:21 WBC (4.8-10.8) K/uL RBC (3.80-5.20) Mil/uL Hgb (11.0-16.0) g/dL Hct (34.0-47.0) % MCV (81.0-99.0) fL MCH (27.0-31.0) pg MCHC (33.0-37.0) g/dL RDW (11.5-14.5) % Plt Count (130-400) K/uL MPV (7.2-11.7) fL Neut % (Auto) (50.0-75.0) % Lymph % (Auto) (20.0-40.0) % [place] % (Auto) (0.0-10.0) % Eos % (Auto) (0.0-4.0) % Baso % (Auto) (0.0-2.0) % Neut # (Auto) (1.8-7.0) K/uL Lymph # (Auto) (1.0-4.3) K/uL [place] # (Auto) (0.0-0.8) K/uL Eos # (Auto) (0.0-0.7) K/uL Baso # (Auto) (0.0-0.2) K/uL Neutrophils % (Manual) 93 H (50-75) % Band Neutrophils % 3 H (0-2) % Lymphocytes % (Manual) 2 L (20-40) % Monocytes % (Manual) 2 (0-10) % Platelet Estimate Decreased L (NORMAL) Polychromasia Slight Hypochromasia (manual) Slight Anisocytosis (manual) Moderate Target Cells Slight Ovalocytes Slight PT 18.9 H (9.7-12.2) SECONDS INR 1.7 Fibrinogen 512 H (200-400) mg/dL Sodium (132-148) mmol/L Potassium (3.6-5.2) mmol/L Chloride (98-107) mmol/L Carbon Dioxide (22-30) mmol/L Anion Gap (10-20) BUN (7-17) mg/dL Creatinine (0.7-1.2) mg/dL Est GFR ( Amer) Est GFR (Non-Af Amer) POC Glucose (mg/dL) (65-110) mg/dL Random Glucose (65-105) mg/dL Lactic Acid (0.7-2.1) mmol/L Calcium (8.6-10.4) mg/dl Phosphorus (2.5-4.5) mg/dL Magnesium (1.6-2.3) mg/dL Total Bilirubin (0.2-1.3) mg/dL AST (14-36) U/L ALT (9-52) U/L Alkaline Phosphatase (38-126) U/L Total Protein (6.3-8.3) g/dL Albumin (3.5-5.0) g/dL Globulin (2.2-3.9) gm/dL Albumin/Globulin Ratio (1.0-2.1) Blood Type Antibody Screen Laboratory Results - last 24 hr 04/16/18 04/16/18 04/16/18 06:21 10:18 10:18 WBC RBC Hgb Hct MCV MCH MCHC RDW Plt Count MPV Neut % (Auto) Lymph % (Auto) [place] % (Auto) Eos % (Auto) Baso % (Auto) Neut # (Auto) Lymph # (Auto) [place] # (Auto) Eos # (Auto) Baso # (Auto) Neutrophils % (Manual) 93 H Band Neutrophils % 3 H Lymphocytes % (Manual) 2 L Monocytes % (Manual) 2 Platelet Estimate Decreased L Polychromasia Slight Hypochromasia (manual) Slight Anisocytosis (manual) Moderate Target Cells Slight Ovalocytes Slight PT 18.9 H INR 1.7 Fibrinogen 512 H Sodium Potassium Chloride Carbon Dioxide Anion Gap BUN Creatinine Est GFR ( Amer) Est GFR (Non-Af Amer) POC Glucose (mg/dL) Random Glucose Lactic Acid 1.3 Calcium Phosphorus Magnesium Total Bilirubin AST ALT Alkaline Phosphatase Total Protein Albumin Globulin Albumin/Globulin Ratio Blood Type Antibody Screen 04/16/18 04/16/18 04/16/18 10:23 12:05 15:59 WBC RBC Hgb Hct MCV MCH MCHC RDW Plt Count MPV Neut % (Auto) Lymph % (Auto) [place] % (Auto) Eos % (Auto) Baso % (Auto) Neut # (Auto) Lymph # (Auto) [place] # (Auto) Eos # (Auto) Baso # (Auto) Neutrophils % (Manual) Band Neutrophils % Lymphocytes % (Manual) Monocytes % (Manual) Platelet Estimate Polychromasia Hypochromasia (manual) Anisocytosis (manual) Target Cells Ovalocytes PT INR Fibrinogen Sodium Potassium Chloride Carbon Dioxide Anion Gap BUN Creatinine Est GFR ( Amer) Est GFR (Non-Af Amer) POC Glucose (mg/dL) 82 83 Random Glucose Lactic Acid Calcium Phosphorus Magnesium Total Bilirubin AST ALT Alkaline Phosphatase Total Protein Albumin Globulin Albumin/Globulin Ratio Blood Type A POSITIVE Antibody Screen Negative 04/16/18 04/17/18 04/17/18 23:48 06:10 06:20 WBC RBC Hgb Hct MCV MCH MCHC RDW Plt Count MPV Neut % (Auto) Lymph % (Auto) [place] % (Auto) Eos % (Auto) Baso % (Auto) Neut # (Auto) Lymph # (Auto) [place] # (Auto) Eos # (Auto) Baso # (Auto) Neutrophils % (Manual) Band Neutrophils % Lymphocytes % (Manual) Monocytes % (Manual) Platelet Estimate Polychromasia Hypochromasia (manual) Anisocytosis (manual) Target Cells Ovalocytes PT INR Fibrinogen Sodium Potassium Chloride Carbon Dioxide Anion Gap BUN Creatinine Est GFR ( Amer) Est GFR (Non-Af Amer) POC Glucose (mg/dL) 101 128 H Random Glucose Lactic Acid 1.6 Calcium Phosphorus Magnesium Total Bilirubin AST ALT Alkaline Phosphatase Total Protein Albumin Globulin Albumin/Globulin Ratio Blood Type Antibody Screen 04/17/18 04/17/18 06:20 06:20 WBC 4.7 L RBC 3.78 L Hgb 10.1 L Hct 32.2 L MCV 85.1 MCH 26.6 L MCHC 31.3 L RDW 25.6 H Plt Count 39 L MPV 10.3 Neut % (Auto) 92.3 H Lymph % (Auto) 3.3 L [place]ulloch % (Auto) 3.4 Eos % (Auto) 0.9 Baso % (Auto) 0.1 Neut # (Auto) 4.3 Lymph # (Auto) 0.2 L [place] # (Auto) 0.2 Eos # (Auto) 0.0 Baso # (Auto) 0.0 Neutrophils % (Manual) Band Neutrophils % Lymphocytes % (Manual) Monocytes % (Manual) Platelet Estimate Polychromasia Hypochromasia (manual) Anisocytosis (manual) Target Cells Ovalocytes PT INR Fibrinogen Sodium 135 Potassium 3.8 Chloride 97 L Carbon Dioxide 30 Anion Gap 11 BUN 66 H Creatinine 1.4 H Est GFR ( Amer) 43 Est GFR (Non-Af Amer) 36 POC Glucose (mg/dL) Random Glucose 106 H D Lactic Acid Calcium 7.9 L Phosphorus 4.4 Magnesium 2.1 Total Bilirubin 1.5 H AST 9 L D ALT 20 Alkaline Phosphatase 49 Total Protein 4.5 L Albumin 2.1 L Globulin 2.4 Albumin/Globulin Ratio 0.9 L Blood Type Antibody Screen Fingerstick Blood Sugar Results: 121 Review of Systems - Review of Systems Systems not reviewed;Unavailable: Intubated Critical Care Progress Note - Nutrition Nutrition: Nutrition Category Date Time Status NPO Diet [DIET] Diets 04/15/18 Breakfast Active Assessment/Plan - Assessment and Plan (Free Text) Assessment: 82 yo female w/ PMH of CHF, HTN, Afib on AC admitted for bilateral pleural effusions and pneumonia. Patient was intubated and extubated and on bi-pap. Patient has recurrent pleural effusions s/p thoracentesis and chest tube placement. Patient on CT abd/pelvis showed perforation with free air. Poor surgical candidate -Peritoneal free air: not a surgical candidate, daughter advised conservative management with IV abx -Hypoxic respiratory failure: continue bi-pap, low threshold for intubation as patient slowly being fluid overloaded -Septic shock: continue pressors to keep MAP >65, continue abx as per ID, no practical way to obtain source control -Gi: NPO, NG to suction -bleeding from POC index figer: placed pressure: will transfuse platelet ad FFP -gentle hydration -MEL: 2nd septic shock, monitor urine output DVT ppx: SCDS, (thrombocytopenia) GI ppx: Protonix IV Patient remains critical cc time 40 minutes -Goals of care to be discussed when patient's other son arrives on Thursday as per daughter. -Continue comfort care, DNR active - Date & Time Date: 04/17/18 Time: 08:46
[2018-04-17 08:40] LABS: ANISOCYTOSIS SLIGHT; LYMPHOCYTE 3 % (20-40); MONOCYTE 2 % (0-10); NEUTROPHIL 95 % (50-75); PLATELET ESTIMATE MARKEDLY DECREASED (NORMAL); TOTAL CELLS COUNTED 100
[2018-04-17 08:41] LABS: HYPOCHROMIC MODERATE; OVALOCYTES SLIGHT; POLYCHROMIC SLIGHT; TARGET CELLS SLIGHT
--- NOTE | 2018-04-17 09:04 | RAD ---
Date of service: 04/17/2018 HISTORY: sob COMPARISON: 04/15/2018. FINDINGS: The left IJV line terminates in the SVC. There is stable position of left chest tube. LUNGS: There is redemonstration of confluent airspace disease in the right lung and diffuse haziness in the lung. There is left retrocardiac airspace disease. PLEURA: Bilateral pleural effusions, larger on the right. No pneumothorax. CARDIOVASCULAR: Mild cardiomegaly. No aortic atherosclerotic calcifications present. OSSEOUS STRUCTURES: Within normal limits for the patient's age. VISUALIZED UPPER ABDOMEN: Normal. OTHER FINDINGS: None. IMPRESSION: Little interval change in layering right pleural effusion versus pulmonary edema. Confluent airspace disease in the right lower lobe may represent atelectasis or pneumonia. Redemonstration of small left pleural effusion and left lower lobe airspace disease which may represent atelectasis or pneumonia. Stable position of left chest tube.
--- NOTE | 2018-04-17 09:09 | PCM.ANES ---
Anesthesia Emergent Intubation - Consult Reason for Consult:: respiratory failure - Pre-Intubation Vital Signs Oxygen Delivery Method: BiPAP Level Of Consciousness: Alert, Awake Intubation Meds Given: Etomidate (20 mg, rocuronium 100 mg) - Airway Management Rapid Sequence: Yes - Method of Intubation Intubation Method: Oral ETT ETT Size: 7.5 Lipline@: 22 Easy: Yes Atramatic: Yes - Intubation Devices Maira Blade Size Used: 3 - Placement Confirmation Breath Sounds Present & Equal Bilaterally: Yes Gurgling Sounds Not Audible at Epigastrum: Yes Recommendations: Ventilator (and sedation), Chest X Ray, ABG
[2018-04-17] MEDS: Bacitracin Ointment 30 GM TUBE TOP SCH ×2 (10:00→18:20)
[2018-04-17] MEDS: Silver Sulfadiazine 1% Cream (20 gm) TOP SCH ×3 (10:00→19:48)
[2018-04-17] MEDS: Fluconazole IV 100mg/50 ml NS 50 ML IVPB SCH (12:00)
--- NOTE | 2018-04-17 12:13 | CP.PCM.PN ---
Subjective - Date & Time of Evaluation Date of Evaluation: 04/17/18 Time of Evaluation: 12:10 - Subjective Subjective: pt entubated again has low bp low platlet still chettube draining Objective - Vital Signs/Intake and Output Vital Signs (last 24 hours): Temp Pulse Resp BP Pulse Ox 97.5 F L 92 H 18 59/40 L 96 04/17/18 08:00 04/17/18 11:52 04/17/18 12:06 04/17/18 12:06 04/17/18 12:06 Intake and Output: 04/17/18 04/17/18 06:59 18:59 Intake Total 850 1234.47 Output Total 220 118 Balance 630 1116.47 - Medications Medications: Current Medications Acetaminophen (Tylenol 325mg Tab) 650 mg PO Q6 PRN PRN Reason: Fever >100.4 F Last Admin: 04/02/18 04:36 Dose: 650 mg Albuterol/Ipratropium (Duoneb 3 Mg/0.5 Mg (3 Ml) Ud) 3 ml INH RQ6 KEV Last Admin: 04/17/18 07:10 Dose: 3 ml Bacitracin (Bacitracin) 0 gm TOP BID KEV Last Admin: 04/16/18 18:12 Dose: 1 applic Hydromorphone HCl (Dilaudid) 0.5 mg IVP Q6H PRN PRN Reason: Pain, moderate (4-7) Fluconazole (Diflucan Iv 100 Mg/50 Ml Ns) 50 mls @ 100 mls/hr IVPB DAILY KEV; Protocol Last Admin: 04/16/18 10:32 Dose: 100 mls/hr Norepinephrine Bitartrate 4 mg (/ Dextrose) 254 mls @ 15.24 mls/hr IV .[id number] PRN; Protocol PRN Reason: TITRATE PER MD ORDER Last Admin: 04/17/18 12:06 Dose: 9.84 mcg/min, 37.5 mls/hr Dextrose/Sodium Chloride (Dextrose 5%/0.45% Ns 1000 Ml) 1,000 mls @ 50 mls/hr IV .Q20H KEV Last Admin: 04/17/18 06:47 Dose: 50 mls/hr Metronidazole (Flagyl) 500 mg in 100 mls @ 100 mls/hr IVPB Q8H KEV; Protocol Last Admin: 04/17/18 02:48 Dose: 100 mls/hr Cefepime HCl (Maxipime Iv 1 Gm Premix) 1 gm in 50 mls @ 100 mls/hr IVPB Q12H [facility]; Protocol Last Admin: 04/17/18 06:45 Dose: 100 mls/hr Propofol (Diprivan) 1,000 mg in 100 mls @ 3.001 mls/hr IV .Q24H PRN; Protocol PRN Reason: TITRATE PER MD ORDER Insulin Aspart (Novolog) 0 unit SC Q6 [facility]; Protocol Last Admin: 04/17/18 12:09 Dose: Not Given Nystatin (Nystop Topical Powder) 1 applic TOP BID [facility] Last Admin: 04/16/18 18:12 Dose: 1 applic Pantoprazole Sodium (Protonix Inj) 40 mg IVP DAILY [facility] Last Admin: 04/16/18 15:32 Dose: 40 mg Silver Sulfadiazine (Silvadene 1% 20 Gm) 0 ea TOP BID [facility] Last Admin: 04/16/18 18:12 Dose: 1 applic - Labs Labs: 04/17/18 06:20 04/17/18 06:20 PT 18.9 SECONDS (9.7-12.2) H 04/16/18 10:18 INR 1.7 04/16/18 10:18 APTT 37 SECONDS (21-34) H 04/13/18 06:10 - Constitutional Appears: In Acute Distress - Head Exam Head Exam: ATRAUMATIC - Eye Exam Eye Exam: Conjunctival injection Pupil Exam: NORMAL ACCOMODATION - ENT Exam ENT Exam: Normal External Ear Exam - Neck Exam Neck Exam: Full ROM - Respiratory Exam Respiratory Exam: Decreased Breath Sounds Additional comments: chesttube in place - Cardiovascular Exam Cardiovascular Exam: Tachycardia - Exam Additional comments: has cath in - Extremities Exam Extremities Exam: Pedal Edema - Back Exam Back Exam: NORMAL INSPECTION - Skin Skin Exam: Normal Color Assessment and Plan - Assessment and Plan (Free Text) Assessment: resp failiur chf pleural effusion [id number] Plan: as per icu orders
--- NOTE | 2018-04-17 14:32 | RAD ---
Date of service: 04/17/2018 HISTORY: eval lungs COMPARISON: 04/17/2018. FINDINGS: The left IJV line terminates in the SVC. The endotracheal tube terminates 1.8 cm proximal to the fareed. Right PICC line terminates in the axillary vein. LUNGS: There is patient rotation to the left. There is worsening diffuse haziness in the right lung. There is stable left lower lobe airspace disease. PLEURA: Worsening right pleural effusion and stable small left pleural effusion. Stable position of left chest tube. No pneumothorax. CARDIOVASCULAR: The heart is normal in size. No aortic atherosclerotic calcifications present. OSSEOUS STRUCTURES: Within normal limits for the patient's age. VISUALIZED UPPER ABDOMEN: Normal. OTHER FINDINGS: None. IMPRESSION: Worsening right pleural effusion versus right pulmonary edema. Stable position of left chest tube and some stable small left pleural effusion. Endotracheal tube terminates 1.8 cm proximal to the fareed.
--- NOTE | 2018-04-17 16:31 | CP.PCM.PN ---
Subjective - Date & Time of Evaluation Date of Evaluation: 04/17/18 Time of Evaluation: 15:00 - Subjective Subjective: Patient seen and examined Intubated in the morning for respiratory distress and hypoxemia On ventilatory support Afebrile Sedated Hypotensive started on Levophed Objective - Vital Signs/Intake and Output Vital Signs (last 24 hours): Temp Pulse Resp BP Pulse Ox 98.3 F 106 H 19 84/46 L 100 04/17/18 16:09 04/17/18 16:09 04/17/18 16:09 04/17/18 16:09 04/17/18 16:09 Intake and Output: 04/17/18 04/17/18 06:59 18:59 Intake Total 850 1876.33 Output Total 220 410 Balance 630 1466.33 - Medications Medications: Current Medications Acetaminophen (Tylenol 325mg Tab) 650 mg PO Q6 PRN PRN Reason: Fever >100.4 F Last Admin: 04/02/18 04:36 Dose: 650 mg Albuterol/Ipratropium (Duoneb 3 Mg/0.5 Mg (3 Ml) Ud) 3 ml INH RQ6 KEV Last Admin: 04/17/18 07:10 Dose: 3 ml Bacitracin (Bacitracin) 0 gm TOP BID KEV Last Admin: 04/17/18 10:00 Dose: Not Given Hydromorphone HCl (Dilaudid) 0.5 mg IVP Q6H PRN PRN Reason: Pain, moderate (4-7) Fluconazole (Diflucan Iv 100 Mg/50 Ml Ns) 50 mls @ 100 mls/hr IVPB DAILY KEV; Protocol Last Admin: 04/17/18 12:00 Dose: 100 mls/hr Norepinephrine Bitartrate 4 mg (/ Dextrose) 254 mls @ 15.24 mls/hr IV .[id number] PRN; Protocol PRN Reason: TITRATE PER MD ORDER Last Admin: 04/17/18 12:06 Dose: 9.84 mcg/min, 37.5 mls/hr Dextrose/Sodium Chloride (Dextrose 5%/0.45% Ns 1000 Ml) 1,000 mls @ 50 mls/hr IV .Q20H KEV Last Admin: 04/17/18 06:47 Dose: 50 mls/hr Metronidazole (Flagyl) 500 mg in 100 mls @ 100 mls/hr IVPB Q8H [facility]; Protocol Last Admin: 04/17/18 11:35 Dose: 100 mls/hr Cefepime HCl (Maxipime Iv 1 Gm Premix) 1 gm in 50 mls @ 100 mls/hr IVPB Q12H [facility]; Protocol Last Admin: 04/17/18 06:45 Dose: 100 mls/hr Propofol (Diprivan) 1,000 mg in 100 mls @ 3.001 mls/hr IV .Q24H PRN; Protocol PRN Reason: TITRATE PER MD ORDER Insulin Aspart (Novolog) 0 unit SC Q6 [facility]; Protocol Last Admin: 04/17/18 12:09 Dose: Not Given Nystatin (Nystop Topical Powder) 1 applic TOP BID [facility] Last Admin: 04/17/18 10:00 Dose: 1 applic Pantoprazole Sodium (Protonix Inj) 40 mg IVP DAILY [facility] Last Admin: 04/17/18 12:00 Dose: 40 mg Silver Sulfadiazine (Silvadene 1% 20 Gm) 0 ea TOP BID [facility] Last Admin: 04/17/18 10:00 Dose: Not Given - Labs Labs: 04/17/18 06:20 04/17/18 06:20 PT 18.9 SECONDS (9.7-12.2) H 04/16/18 10:18 INR 1.7 04/16/18 10:18 APTT 37 SECONDS (21-34) H 04/13/18 06:10 - Head Exam Head Exam: ATRAUMATIC, NORMOCEPHALIC - ENT Exam ENT Exam: Mucous Membranes Moist - Respiratory Exam Respiratory Exam: Decreased Breath Sounds - Cardiovascular Exam Cardiovascular Exam: REGULAR RHYTHM - GI/Abdominal Exam GI & Abdominal Exam: Soft, Normal Bowel Sounds Assessment and Plan (1) Acute respiratory failure Assessment & Plan: ventilatory support Pressors Antibiotics Transfuse platelets Feeding Prognosis poor Status: Acute (2) Atrial fibrillation and flutter Status: Acute (3) CHF (congestive heart failure) Status: Acute (4) Pleural effusion Status: Acute
--- NOTE | 2018-04-17 18:07 | CP.PCM.PN ---
<Jason Sandhu - Last Filed: 04/17/18 18:04> Subjective - Date & Time of Evaluation Date of Evaluation: 04/17/18 Time of Evaluation: 16:25 - Subjective Subjective: Surgery Progress note. Dr. Gordon Pt seen and examined. No new complaints. Patient intubated this morning for airway protection and increasing demand for pain control. Currently sedated on propofol. Family at bedside. Objective - Vital Signs/Intake and Output Vital Signs (last 24 hours): Temp Pulse Resp BP Pulse Ox 98.3 F 106 H 19 84/46 L 100 04/17/18 16:09 04/17/18 16:09 04/17/18 16:09 04/17/18 16:09 04/17/18 16:09 Intake and Output: 04/17/18 04/17/18 06:59 18:59 Intake Total 850 1876.33 Output Total 220 410 Balance 630 1466.33 - Medications Medications: Current Medications Acetaminophen (Tylenol 325mg Tab) 650 mg PO Q6 PRN PRN Reason: Fever >100.4 F Last Admin: 04/02/18 04:36 Dose: 650 mg Albuterol/Ipratropium (Duoneb 3 Mg/0.5 Mg (3 Ml) Ud) 3 ml INH RQ6 [facility] Last Admin: 04/17/18 07:10 Dose: 3 ml Bacitracin (Bacitracin) 0 gm TOP BID [facility] Last Admin: 04/17/18 10:00 Dose: Not Given Hydromorphone HCl (Dilaudid) 0.5 mg IVP Q6H PRN PRN Reason: Pain, moderate (4-7) Fluconazole (Diflucan Iv 100 Mg/50 Ml Ns) 50 mls @ 100 mls/hr IVPB DAILY [facility]; Protocol Last Admin: 04/17/18 12:00 Dose: 100 mls/hr Norepinephrine Bitartrate 4 mg (/ Dextrose) 254 mls @ 15.24 mls/hr IV .[id number] PRN; Protocol PRN Reason: TITRATE PER MD ORDER Last Admin: 04/17/18 12:06 Dose: 9.84 mcg/min, 37.5 mls/hr Dextrose/Sodium Chloride (Dextrose 5%/0.45% Ns 1000 Ml) 1,000 mls @ 50 mls/hr IV .Q20H [facility] Last Admin: 04/17/18 06:47 Dose: 50 mls/hr Metronidazole (Flagyl) 500 mg in 100 mls @ 100 mls/hr IVPB Q8H [facility]; Protocol Last Admin: 04/17/18 11:35 Dose: 100 mls/hr Cefepime HCl (Maxipime Iv 1 Gm Premix) 1 gm in 50 mls @ 100 mls/hr IVPB Q12H [facility]; Protocol Last Admin: 04/17/18 06:45 Dose: 100 mls/hr Propofol (Diprivan) 1,000 mg in 100 mls @ 3.001 mls/hr IV .Q24H PRN; Protocol PRN Reason: TITRATE PER MD ORDER Insulin Aspart (Novolog) 0 unit SC Q6 [facility]; Protocol Last Admin: 04/17/18 12:09 Dose: Not Given Nystatin (Nystop Topical Powder) 1 applic TOP BID [facility] Last Admin: 04/17/18 10:00 Dose: 1 applic Pantoprazole Sodium (Protonix Inj) 40 mg IVP DAILY [facility] Last Admin: 04/17/18 12:00 Dose: 40 mg Silver Sulfadiazine (Silvadene 1% 20 Gm) 0 ea TOP BID [facility] Last Admin: 04/17/18 10:00 Dose: Not Given - Labs Labs: 04/17/18 06:20 04/17/18 06:20 PT 18.9 SECONDS (9.7-12.2) H 04/16/18 10:18 INR 1.7 04/16/18 10:18 APTT 37 SECONDS (21-34) H 04/13/18 06:10 - Constitutional Appears: Toxic, Chronically Ill - Head Exam Head Exam: ATRAUMATIC, NORMAL INSPECTION, NORMOCEPHALIC - ENT Exam ENT Exam: Mucous Membranes Moist - Respiratory Exam Additional comments: Intubated and sedated - Cardiovascular Exam Cardiovascular Exam: absent: JVD - GI/Abdominal Exam Additional comments: Soft, moderate distention. RLQ tenderness to palpation - Neurological Exam Additional comments: Intubated and sedated - Skin Skin Exam: Dry, Intact, Normal Color, Warm Assessment and Plan - Assessment and Plan (Free Text) Assessment: 82yo F with perforated viscous - Intubated for airway protection this morning Plan: - Continue conservative management - NPO - IVF, IV Abx - pain management - No surgical intervention at this time - Prognosis: poor Further recs as per Dr. Heidi Sandhu PGY2 surgery <Milad Gordon - Last Filed: 04/22/18 08:57> Objective - Vital Signs/Intake and Output Vital Signs (last 24 hours): Temp Pulse Resp BP Pulse Ox 97 F L 47 L 11 L 63/30 L 97 04/21/18 20:00 04/21/18 21:01 04/21/18 21:01 04/21/18 21:01 04/21/18 17:00 Intake and Output: 04/22/18 04/22/18 06:59 18:59 Intake Total 15 Balance 15 - Labs Labs: 04/21/18 05:47 04/21/18 05:47 PT 23.5 SECONDS (9.7-12.2) H 04/20/18 06:32 INR 2.1 04/20/18 06:32 APTT 52 SECONDS (21-34) H D 04/20/18 06:32 Attending/Attestation - Attestation I have personally seen and examined this patient.: Yes I have fully participated in the care of the patient.: Yes I have reviewed all pertinent clinical information, including history, physical exam and plan: Yes Notes (Text): Pt was intubated today IV antibiotics c.w ICU management Very poor prognosis Plan d.w family in detail
[2018-04-17] MEDS: Propofol 10 mg/ml 1,000 MG/100 ML VIAL IV PRN (21:07)
[2018-04-18] MEDS: Dextrose 5%/0.45% NS 1,000 ML IV SCH (01:09)
[2018-04-18] MEDS: Propofol 10 mg/ml 1,000 MG/100 ML VIAL IV PRN ×4 (02:14→20:37)
[2018-04-18] MEDS: Albuterol-Ipratrop 3 mg / 0.5 (3 ml) UD INH SCH ×4 (03:09→20:30)
[2018-04-18] MEDS: metroNIDAZOLE IV 500 mg/100 ml 500 MG/100 ML BAG IVPB SCH ×3 (03:23→17:59)
[2018-04-18 06:09] LABS: ABG ALLEN TEST POS; ARTERIAL BLOOD GAS HCO3 29.1 mmol/L (21-28); ARTERIAL BLOOD GAS O2 SAT 99.5 % (95-98); ARTERIAL BLOOD GAS PCO2 31 mm/Hg (35-45); ARTERIAL BLOOD GAS PH 7.55 (7.35-7.45); ARTERIAL BLOOD GAS PO2 197 mm/Hg (80-100); ARTERIAL BLOOD GAS TCO2 28.1 mmol/L (22-28)
[2018-04-18] MEDS: Cefepime IV 1 gm in Dextrose 1 GM/50 ML BAG IVPB SCH ×2 (06:30→17:49)
[2018-04-18 06:42] LABS: BASO % 0.5 % (0.0-2.0); EOS % 0.6 % (0.0-4.0); HEMOGLOBIN 9.2 g/dL (11.0-16.0); LYMPH # 0.3 K/uL (1.0-4.3); LYMPH % 6.3 % (20.0-40.0); MEAN CELL VOLUME 84.3 fL (81.0-99.0); MEAN CORPUSCULAR HEMOGLOBIN 27.1 pg (27.0-31.0); MEAN CORPUSCULAR HGB CONC 32.1 g/dL (33.0-37.0); MEAN PLATELET VOLUME 10.9 fL (7.2-11.7); MONO # 0.2 K/uL (0.0-0.8); MONO % 3.6 % (0.0-10.0); NEUT # 4.3 K/uL (1.8-7.0); NRBC % 0.1 % (0.0-2.0); PLATELET COUNT 40 K/uL (130-400); RBC 3.38 Mil/uL (3.80-5.20); RED CELL DISTRIBUTION WIDTH 25.5 % (11.5-14.5); WHITE BLOOD COUNT 4.8 K/uL (4.8-10.8)
[2018-04-18 06:48] LABS: INR 1.8; PROTHROMBIN TIME 19.3 SECONDS (9.7-12.2)
[2018-04-18 06:57] LABS: ALB/GLOB RATIO 0.9 (1.0-2.1); ALBUMIN 1.9 g/dL (3.5-5.0); CALCIUM 7.6 mg/dl (8.6-10.4)
[2018-04-18] MEDS: (Novolog) Insulin Aspart, Recombinant 100 u/ml 10 ml vial SC SCH ×4 (07:00→17:52)
--- NOTE | 2018-04-18 07:50 | CP.PCM.PN ---
<HenriLopez - Last Filed: 04/18/18 07:47> Subjective - Date & Time of Evaluation Date of Evaluation: 04/18/18 Time of Evaluation: 07:47 - Subjective Subjective: General Surgery Progress Note for Dr. Gordon 82F seen and evaluated at bedside this morning. No acute events overnight. Patient intubated and sedated. Pain is controlled. Afebrile. Continues to have multiple bowel movements. Objective - Vital Signs/Intake and Output Vital Signs (last 24 hours): Temp Pulse Resp BP Pulse Ox 98.7 F 101 H 18 98/66 L 100 04/18/18 04:00 04/18/18 06:37 04/18/18 06:37 04/18/18 06:37 04/18/18 06:37 Intake and Output: 04/18/18 04/18/18 06:59 18:59 Intake Total 1443.1 99.5 Output Total 280 Balance 1163.1 99.5 - Medications Medications: Current Medications Acetaminophen (Tylenol 325mg Tab) 650 mg PO Q6 PRN PRN Reason: Fever >100.4 F Last Admin: 04/02/18 04:36 Dose: 650 mg Albuterol/Ipratropium (Duoneb 3 Mg/0.5 Mg (3 Ml) Ud) 3 ml INH RQ6 [facility] Last Admin: 04/17/18 19:59 Dose: 3 ml Bacitracin (Bacitracin) 0 gm TOP BID [facility] Last Admin: 04/17/18 18:20 Dose: 1 applic Hydromorphone HCl (Dilaudid) 0.5 mg IVP Q6H PRN PRN Reason: Pain, moderate (4-7) Fluconazole (Diflucan Iv 100 Mg/50 Ml Ns) 50 mls @ 100 mls/hr IVPB DAILY [facility]; Protocol Last Admin: 04/17/18 12:00 Dose: 100 mls/hr Norepinephrine Bitartrate 4 mg (/ Dextrose) 254 mls @ 15.24 mls/hr IV .[id number] PRN; Protocol PRN Reason: TITRATE PER MD ORDER Last Admin: 04/18/18 04:00 Dose: 9.84 mcg/min, 37.5 mls/hr Dextrose/Sodium Chloride (Dextrose 5%/0.45% Ns 1000 Ml) 1,000 mls @ 50 mls/hr IV .Q20H [facility] Last Admin: 04/18/18 01:09 Dose: Not Given Metronidazole (Flagyl) 500 mg in 100 mls @ 100 mls/hr IVPB Q8H [facility]; Protocol Last Admin: 04/18/18 03:23 Dose: 100 mls/hr Cefepime HCl (Maxipime Iv 1 Gm Premix) 1 gm in 50 mls @ 100 mls/hr IVPB Q12H [facility]; Protocol Last Admin: 04/18/18 06:30 Dose: 100 mls/hr Propofol (Diprivan) 1,000 mg in 100 mls @ 3.001 mls/hr IV .Q24H PRN; Protocol PRN Reason: TITRATE PER MD ORDER Last Admin: 04/18/18 02:14 Dose: 20 mcg/kg/min, 12.002 mls/hr Insulin Aspart (Novolog) 0 unit SC Q6 [facility]; Protocol Last Admin: 04/18/18 07:00 Dose: Not Given Nystatin (Nystop Topical Powder) 1 applic TOP BID [facility] Last Admin: 04/17/18 18:20 Dose: 1 applic Pantoprazole Sodium (Protonix Inj) 40 mg IVP DAILY [facility] Last Admin: 04/17/18 12:00 Dose: 40 mg Silver Sulfadiazine (Silvadene 1% 20 Gm) 0 ea TOP BID [facility] Last Admin: 04/17/18 19:48 Dose: 1 applic - Labs Labs: 04/18/18 06:37 04/18/18 06:37 PT 19.3 SECONDS (9.7-12.2) H 04/18/18 06:37 INR 1.8 04/18/18 06:37 APTT 41 SECONDS (21-34) H 04/18/18 06:37 - Constitutional Appears: Well, Non-toxic, No Acute Distress - Eye Exam Eye Exam: EOMI - ENT Exam ENT Exam: Mucous Membranes Dry - Respiratory Exam Additional comments: intubated, sedated Levo 10 Propofol 20 - Cardiovascular Exam Cardiovascular Exam: Tachycardia - GI/Abdominal Exam GI & Abdominal Exam: Soft, Tenderness, Normal Bowel Sounds. absent: Distended, Guarding, Rebound - Neurological Exam Neurological Exam: Alert, Awake - Psychiatric Exam Psychiatric exam: Normal Affect, Normal Mood - Skin Skin Exam: Dry, Intact, Normal Color, Warm Assessment and Plan - Assessment and Plan (Free Text) Assessment: 82F w/ suspected perforated viscous Patient now intubated and sedated Plan: NPO, IVF, IV Abx Pain management Continue conservative management, supportive care No surgical intervention at this present time D/w Dr. Heidi Álvarez PGY1 <Milad Gordon B - Last Filed: 04/22/18 08:59> Objective - Vital Signs/Intake and Output Vital Signs (last 24 hours): Temp Pulse Resp BP Pulse Ox 97 F L 47 L 11 L 63/30 L 97 04/21/18 20:00 04/21/18 21:01 04/21/18 21:01 04/21/18 21:01 04/21/18 17:00 Intake and Output: 04/22/18 04/22/18 06:59 18:59 Intake Total 15 Balance 15 - Labs Labs: 04/21/18 05:47 04/21/18 05:47 PT 23.5 SECONDS (9.7-12.2) H 04/20/18 06:32 INR 2.1 04/20/18 06:32 APTT 52 SECONDS (21-34) H D 04/20/18 06:32 Attending/Attestation - Attestation I have personally seen and examined this patient.: Yes I have fully participated in the care of the patient.: Yes I have reviewed all pertinent clinical information, including history, physical exam and plan: Yes Notes (Text): Pt was seen and examined at bedside Pt has multiple bowel movements Sepsis is resolving Still critical due to underlying comorbidites c.w ICU management Plan d.w ICU attending and family in detail
[2018-04-18] MEDS ORDERED: Albumin Human 25% (12.5 gm/50 ml) IV ONE (08:38)
[2018-04-18 08:41] LABS: BANDS 5 % (0-2); LYMPHOCYTE 3 % (20-40); MONOCYTE 1 % (0-10); NEUTROPHIL 91 % (50-75); TOTAL CELLS COUNTED 100
[2018-04-18 08:42] LABS: ANISOCYTOSIS SLIGHT; HYPOCHROMIC SLIGHT; OVALOCYTES SLIGHT; PLATELET ESTIMATE DECREASED (NORMAL); POLYCHROMIC SLIGHT
[2018-04-18 08:43] LABS: TARGET CELLS SLIGHT
[2018-04-18] MEDS: Dextrose 5%/0.9% NS 1,000 ML IV SCH ×2 (09:09→19:52)
[2018-04-18] MEDS: Albumin Human 25% (12.5 gm/50 ml) IV SCH ×3 (09:23→21:43)
[2018-04-18] MEDS: Silver Sulfadiazine 1% Cream (20 gm) TOP SCH ×2 (09:27→17:50)
[2018-04-18] MEDS: Bacitracin Ointment 30 GM TUBE TOP SCH ×2 (09:28→17:51)
[2018-04-18] MEDS: Fluconazole IV 100mg/50 ml NS 50 ML IVPB SCH (09:30)
--- NOTE | 2018-04-18 10:12 | RAD ---
Date of service: 04/18/2018 HISTORY: et tube COMPARISON: 04/17/2018 FINDINGS: The endotracheal tube terminates in the mid trachea. The nasogastric tube terminates in the stomach. The left IJV line terminates in the SVC. LUNGS: There is redemonstration of diffuse haziness in the right lung. There is persistent left retrocardiac opacity. PLEURA: Bilateral pleural effusions without interval change. Stable position of left chest tube. No pneumothorax. CARDIOVASCULAR: The heart is normal in size. No aortic atherosclerotic calcifications present. OSSEOUS STRUCTURES: Within normal limits for the patient's age. VISUALIZED UPPER ABDOMEN: Normal. OTHER FINDINGS: None. IMPRESSION: Little interval change in layering pleural effusion versus pulmonary edema in the right lung. Persistent airspace disease in the left lower lobe which may represent atelectasis or pneumonia. Stable position of support line and tubes.
--- NOTE | 2018-04-18 11:02 | CP.PCM.PN ---
Subjective - Date & Time of Evaluation Date of Evaluation: 04/18/18 Time of Evaluation: 10:59 - Subjective Subjective: pt still entubated sedated daughter in her room her brother is coming tomorro for desision Objective - Vital Signs/Intake and Output Vital Signs (last 24 hours): Temp Pulse Resp BP Pulse Ox 97.5 F L 94 H 18 98/60 L 100 04/18/18 08:00 04/18/18 10:32 04/18/18 10:32 04/18/18 10:00 04/18/18 10:32 Intake and Output: 04/18/18 04/18/18 06:59 18:59 Intake Total 1443.1 498.0 Output Total 280 Balance 1163.1 498.0 - Medications Medications: Current Medications Acetaminophen (Tylenol 325mg Tab) 650 mg PO Q6 PRN PRN Reason: Fever >100.4 F Last Admin: 04/02/18 04:36 Dose: 650 mg Albumin Human (Albumin Human 25% (12.5 Gm/50 Ml)) 25 gm IV Q6H [facility] Stop: 04/19/18 02:46 Last Admin: 04/18/18 09:23 Dose: 25 gm Albuterol/Ipratropium (Duoneb 3 Mg/0.5 Mg (3 Ml) Ud) 3 ml INH RQ6 [facility] Last Admin: 04/18/18 07:50 Dose: 3 ml Bacitracin (Bacitracin) 0 gm TOP BID [facility] Last Admin: 04/18/18 09:28 Dose: 1 applic Hydromorphone HCl (Dilaudid) 0.5 mg IVP Q6H PRN PRN Reason: Pain, moderate (4-7) Fluconazole (Diflucan Iv 100 Mg/50 Ml Ns) 50 mls @ 100 mls/hr IVPB DAILY [facility]; Protocol Last Admin: 04/18/18 09:30 Dose: 100 mls/hr Norepinephrine Bitartrate 4 mg (/ Dextrose) 254 mls @ 15.24 mls/hr IV .[id number] PRN; Protocol PRN Reason: TITRATE PER MD ORDER Last Admin: 04/18/18 04:00 Dose: 9.84 mcg/min, 37.5 mls/hr Metronidazole (Flagyl) 500 mg in 100 mls @ 100 mls/hr IVPB Q8H [facility]; Protocol Last Admin: 04/18/18 03:23 Dose: 100 mls/hr Cefepime HCl (Maxipime Iv 1 Gm Premix) 1 gm in 50 mls @ 100 mls/hr IVPB Q12H [facility]; Protocol Last Admin: 04/18/18 06:30 Dose: 100 mls/hr Propofol (Diprivan) 1,000 mg in 100 mls @ 3.001 mls/hr IV .Q24H PRN; Protocol PRN Reason: TITRATE PER MD ORDER Last Admin: 04/18/18 08:11 Dose: 20 mcg/kg/min, 12.002 mls/hr Dextrose/Sodium Chloride (Dextrose 5%/0.9% Ns 1000 Ml) 1,000 mls @ 100 mls/hr IV .Q10H [facility] Last Admin: 04/18/18 09:09 Dose: 100 mls/hr Vasopressin 40 units/ Dextrose 42 mls @ 1.26 mls/hr IV .Q24H [facility] Insulin Aspart (Novolog) 0 unit SC Q6 [facility]; Protocol Last Admin: 04/18/18 07:00 Dose: Not Given Nystatin (Nystop Topical Powder) 1 applic TOP BID [facility] Last Admin: 04/18/18 09:27 Dose: 1 applic Pantoprazole Sodium (Protonix Inj) 40 mg IVP DAILY [facility] Last Admin: 04/18/18 09:27 Dose: 40 mg Silver Sulfadiazine (Silvadene 1% 20 Gm) 0 ea TOP BID [facility] Last Admin: 04/18/18 09:27 Dose: 1 applic - Labs Labs: 04/18/18 06:37 04/18/18 06:37 PT 19.3 SECONDS (9.7-12.2) H 04/18/18 06:37 INR 1.8 04/18/18 06:37 APTT 41 SECONDS (21-34) H 04/18/18 06:37 - Constitutional Appears: In Acute Distress - Head Exam Head Exam: NORMAL INSPECTION - Eye Exam Eye Exam: Normal appearance - ENT Exam ENT Exam: Mucous Membranes Moist - Neck Exam Neck Exam: Normal Inspection - Respiratory Exam Respiratory Exam: Decreased Breath Sounds - Cardiovascular Exam Cardiovascular Exam: REGULAR RHYTHM, +S1, +S2, +S4 - GI/Abdominal Exam GI & Abdominal Exam: Diminished Bowel Sounds - Extremities Exam Extremities Exam: Pedal Edema - Back Exam Back Exam: NORMAL INSPECTION - Neurological Exam Additional comments: nonresponsive - Skin Skin Exam: Pallor Assessment and Plan - Assessment and Plan (Free Text) Assessment: respiratory failiur pleural efusion chest tube draining less renal insufiscency aneamia dm Plan: cont life support
[2018-04-18] MEDS: Vasopressin 40 UNITS in Dextrose 5% In Water 40 ML IV SCH ×2 (11:17→21:48)
--- NOTE | 2018-04-18 12:01 | CP.PCM.PN ---
Subjective - Date & Time of Evaluation Date of Evaluation: 04/18/18 Time of Evaluation: 11:59 - Subjective Subjective: NO acute events overnight Objective - Vital Signs/Intake and Output Vital Signs (last 24 hours): Temp Pulse Resp BP Pulse Ox 97.5 F L 97 H 20 104/65 100 04/18/18 08:00 04/18/18 11:17 04/18/18 11:21 04/18/18 11:21 04/18/18 11:21 Intake and Output: 04/18/18 04/18/18 06:59 18:59 Intake Total 1443.1 752.0 Output Total 280 Balance 1163.1 752.0 - Medications Medications: Current Medications Acetaminophen (Tylenol 325mg Tab) 650 mg PO Q6 PRN PRN Reason: Fever >100.4 F Last Admin: 04/02/18 04:36 Dose: 650 mg Albumin Human (Albumin Human 25% (12.5 Gm/50 Ml)) 25 gm IV Q6H [facility] Stop: 04/19/18 02:46 Last Admin: 04/18/18 09:23 Dose: 25 gm Albuterol/Ipratropium (Duoneb 3 Mg/0.5 Mg (3 Ml) Ud) 3 ml INH RQ6 [facility] Last Admin: 04/18/18 07:50 Dose: 3 ml Bacitracin (Bacitracin) 0 gm TOP BID [facility] Last Admin: 04/18/18 09:28 Dose: 1 applic Hydromorphone HCl (Dilaudid) 0.5 mg IVP Q6H PRN PRN Reason: Pain, moderate (4-7) Fluconazole (Diflucan Iv 100 Mg/50 Ml Ns) 50 mls @ 100 mls/hr IVPB DAILY [facility]; Protocol Last Admin: 04/18/18 09:30 Dose: 100 mls/hr Norepinephrine Bitartrate 4 mg (/ Dextrose) 254 mls @ 15.24 mls/hr IV .[id number] PRN; Protocol PRN Reason: TITRATE PER MD ORDER Last Admin: 04/18/18 11:21 Dose: 9.84 mcg/min, 37.5 mls/hr Metronidazole (Flagyl) 500 mg in 100 mls @ 100 mls/hr IVPB Q8H [facility]; Protocol Last Admin: 04/18/18 11:19 Dose: 100 mls/hr Cefepime HCl (Maxipime Iv 1 Gm Premix) 1 gm in 50 mls @ 100 mls/hr IVPB Q12H [facility]; Protocol Last Admin: 04/18/18 06:30 Dose: 100 mls/hr Propofol (Diprivan) 1,000 mg in 100 mls @ 3.001 mls/hr IV .Q24H [facility]; Protocol PRN Reason: TITRATE PER MD ORDER Last Admin: 04/18/18 08:11 Dose: 20 mcg/kg/min, 12.002 mls/hr Dextrose/Sodium Chloride (Dextrose 5%/0.9% Ns 1000 Ml) 1,000 mls @ 100 mls/hr IV .Q10H [facility] Last Admin: 04/18/18 09:09 Dose: 100 mls/hr Vasopressin 40 units/ Dextrose 42 mls @ 1.26 mls/hr IV .Q24H [facility] Last Admin: 04/18/18 11:17 Dose: 1.26 mls/hr Insulin Aspart (Novolog) 0 unit SC Q6 [facility]; Protocol Last Admin: 04/18/18 07:00 Dose: Not Given Nystatin (Nystop Topical Powder) 1 applic TOP BID [facility] Last Admin: 04/18/18 09:27 Dose: 1 applic Pantoprazole Sodium (Protonix Inj) 40 mg IVP DAILY [facility] Last Admin: 04/18/18 09:27 Dose: 40 mg Silver Sulfadiazine (Silvadene 1% 20 Gm) 0 ea TOP BID [facility] Last Admin: 04/18/18 09:27 Dose: 1 applic - Labs Labs: 04/18/18 06:37 04/18/18 06:37 PT 19.3 SECONDS (9.7-12.2) H 04/18/18 06:37 INR 1.8 04/18/18 06:37 APTT 41 SECONDS (21-34) H 04/18/18 06:37 - Head Exam Head Exam: ATRAUMATIC, NORMAL INSPECTION - Eye Exam Pupil Exam: PERRL - Respiratory Exam Respiratory Exam: Clear to Ausculation Bilateral, Rales, NORMAL BREATHING PATTERN. absent: Rhonchi, Wheezes, Stridor - Cardiovascular Exam Cardiovascular Exam: REGULAR RHYTHM, +S1, +S2 - GI/Abdominal Exam GI & Abdominal Exam: Soft, Tenderness, Normal Bowel Sounds - Extremities Exam Extremities Exam: Pedal Edema - Neurological Exam Neurological Exam: Altered - Skin Skin Exam: Normal Color, Warm Assessment and Plan - Assessment and Plan (Free Text) Assessment: 82 yo female w/ PMH of CHF, HTN, Afib on AC admitted for bilateral pleural effusions and pneumonia. Patient was intubated and extubated and on bi-pap. Patient has recurrent pleural effusions s/p thoracentesis and chest tube placement. Patient on CT abd/pelvis showed perforation with free air. Poor surgical candidate -Peritoneal free air: not a surgical candidate, daughter advised conservative management with IV abx -Hypoxic respiratory failure: continue bi-pap, low threshold for intubation as patient slowly being fluid overloaded -Septic shock: continue pressors to keep MAP >65, continue abx as per ID, no practical way to obtain source control -Gi: NPO, NG to suction -bleeding from POC index figer: resolved -thrombocytopenia: liekly sepsis, check HIT panel -gentle hydration -MEL: 2nd septic shock, monitor urine output, IV D5/NS DVT ppx: SCDS, (thrombocytopenia) GI ppx: Protonix IV Patient remains critical -Goals of care to be discussed when patient's other son arrives on Thursday as per daughter. -Continue comfort care, DNR active
--- NOTE | 2018-04-18 15:02 | CP.PCM.PN ---
Subjective - Date & Time of Evaluation Date of Evaluation: 04/18/18 Time of Evaluation: 08:00 - Subjective Subjective: not much improvement afebrile Objective - Vital Signs/Intake and Output Vital Signs (last 24 hours): Temp Pulse Resp BP Pulse Ox 98.3 F 100 H 18 116/86 100 04/18/18 12:00 04/18/18 12:32 04/18/18 12:32 04/18/18 12:00 04/18/18 12:32 Intake and Output: 04/18/18 04/18/18 06:59 18:59 Intake Total 1443.1 1051.0 Output Total 280 Balance 1163.1 1051.0 - Medications Medications: Current Medications Acetaminophen (Tylenol 325mg Tab) 650 mg PO Q6 PRN PRN Reason: Fever >100.4 F Last Admin: 04/02/18 04:36 Dose: 650 mg Albumin Human (Albumin Human 25% (12.5 Gm/50 Ml)) 25 gm IV Q6H [facility] Stop: 04/19/18 02:46 Last Admin: 04/18/18 09:23 Dose: 25 gm Albuterol/Ipratropium (Duoneb 3 Mg/0.5 Mg (3 Ml) Ud) 3 ml INH RQ6 [facility] Last Admin: 04/18/18 14:00 Dose: 3 ml Bacitracin (Bacitracin) 0 gm TOP BID [facility] Last Admin: 04/18/18 09:28 Dose: 1 applic Hydromorphone HCl (Dilaudid) 0.5 mg IVP Q6H PRN PRN Reason: Pain, moderate (4-7) Fluconazole (Diflucan Iv 100 Mg/50 Ml Ns) 50 mls @ 100 mls/hr IVPB DAILY [facility]; Protocol Last Admin: 04/18/18 09:30 Dose: 100 mls/hr Norepinephrine Bitartrate 4 mg (/ Dextrose) 254 mls @ 15.24 mls/hr IV .[id number] PRN; Protocol PRN Reason: TITRATE PER MD ORDER Last Admin: 04/18/18 11:21 Dose: 9.84 mcg/min, 37.5 mls/hr Metronidazole (Flagyl) 500 mg in 100 mls @ 100 mls/hr IVPB Q8H [facility]; Protocol Last Admin: 04/18/18 11:19 Dose: 100 mls/hr Cefepime HCl (Maxipime Iv 1 Gm Premix) 1 gm in 50 mls @ 100 mls/hr IVPB Q12H [facility]; Protocol Last Admin: 04/18/18 06:30 Dose: 100 mls/hr Propofol (Diprivan) 1,000 mg in 100 mls @ 3.001 mls/hr IV .Q24H [facility]; Protocol PRN Reason: TITRATE PER MD ORDER Last Admin: 04/18/18 14:08 Dose: 20 mcg/kg/min, 12.002 mls/hr Dextrose/Sodium Chloride (Dextrose 5%/0.9% Ns 1000 Ml) 1,000 mls @ 100 mls/hr IV .Q10H [facility] Last Admin: 04/18/18 09:09 Dose: 100 mls/hr Vasopressin 40 units/ Dextrose 42 mls @ 1.26 mls/hr IV .Q24H [facility] Last Admin: 04/18/18 11:17 Dose: 1.26 mls/hr Insulin Aspart (Novolog) 0 unit SC Q6 [facility]; Protocol Last Admin: 04/18/18 12:00 Dose: Not Given Nystatin (Nystop Topical Powder) 1 applic TOP BID [facility] Last Admin: 04/18/18 09:27 Dose: 1 applic Pantoprazole Sodium (Protonix Inj) 40 mg IVP DAILY [facility] Last Admin: 04/18/18 09:27 Dose: 40 mg Silver Sulfadiazine (Silvadene 1% 20 Gm) 0 ea TOP BID [facility] Last Admin: 04/18/18 09:27 Dose: 1 applic - Labs Labs: 04/18/18 06:37 04/18/18 06:37 PT 19.3 SECONDS (9.7-12.2) H 04/18/18 06:37 INR 1.8 04/18/18 06:37 APTT 41 SECONDS (21-34) H 04/18/18 06:37 - Constitutional Appears: Confused, Cachectic, Chronically Ill - Head Exam Head Exam: NORMOCEPHALIC - Eye Exam Eye Exam: absent: Scleral icterus - ENT Exam ENT Exam: Mucous Membranes Dry - Neck Exam Neck Exam: absent: Lymphadenopathy - Respiratory Exam Respiratory Exam: Decreased Breath Sounds - Cardiovascular Exam Cardiovascular Exam: REGULAR RHYTHM - GI/Abdominal Exam GI & Abdominal Exam: Distended, Tenderness, Diminished Bowel Sounds - Rectal Exam Rectal Exam: Deferred - Exam Exam: NORMAL INSPECTION - Extremities Exam Extremities Exam: absent: Pedal Edema - Back Exam Back Exam: absent: CVA tenderness (L), CVA tenderness (R) - Neurological Exam Neurological Exam: Altered. absent: Oriented x3 - Psychiatric Exam Psychiatric exam: Depressed Assessment and Plan (1) Acute respiratory failure Status: Acute (2) Atrial fibrillation and flutter Status: Acute (3) CHF (congestive heart failure) Status: Acute (4) Pleural effusion Status: Acute (5) Perforated viscus Status: Acute (6) Perforated abdominal viscus Status: Acute - Assessment and Plan (Free Text) Assessment: cont supportive rx not a surgical candidate at this time
--- NOTE | 2018-04-18 21:14 | CP.PCM.PN ---
Subjective - Date & Time of Evaluation Date of Evaluation: 04/18/18 Time of Evaluation: 21:11 - Subjective Subjective: Pulmonary Folow up, Covering Dr Amador The Patient was seen and examined at the bedside, Medical records reviewed, and management issues were discussed and formulated with the house staff. Events reviewed Critically ill patient with acute hypoxemic respiratory failure, Respiratory acidosis from acuter pulmonary edema, COPD, Pneumonia with pleural effusion, S/P Left side chest tube In septic shock Now with worsening renal function Sedated and orally intubated Patient is DNR, intubated Positive fluid balance reviewed the rationale, risks, and alternatives to treatment with the patient's daughter Objective - Vital Signs/Intake and Output Vital Signs (last 24 hours): Temp Pulse Resp BP Pulse Ox 97.7 F 96 H 22 95/65 L 97 04/18/18 20:00 04/18/18 20:30 04/18/18 20:30 04/18/18 20:30 04/18/18 20:30 Intake and Output: 04/18/18 04/19/18 18:59 06:59 Intake Total 1741.6 266.4 Output Total 900 Balance 841.6 266.4 - Medications Medications: Current Medications Acetaminophen (Tylenol 325mg Tab) 650 mg PO Q6 PRN PRN Reason: Fever >100.4 F Last Admin: 04/02/18 04:36 Dose: 650 mg Albumin Human (Albumin Human 25% (12.5 Gm/50 Ml)) 25 gm IV Q6H [facility] Stop: 04/19/18 02:46 Last Admin: 04/18/18 16:24 Dose: 25 gm Albuterol/Ipratropium (Duoneb 3 Mg/0.5 Mg (3 Ml) Ud) 3 ml INH RQ6 [facility] Last Admin: 04/18/18 20:30 Dose: 3 ml Bacitracin (Bacitracin) 0 gm TOP BID KEV Last Admin: 04/18/18 17:51 Dose: 1 applic Hydromorphone HCl (Dilaudid) 0.5 mg IVP Q6H PRN PRN Reason: Pain, moderate (4-7) Fluconazole (Diflucan Iv 100 Mg/50 Ml Ns) 50 mls @ 100 mls/hr IVPB DAILY [facility]; Protocol Last Admin: 04/18/18 09:30 Dose: 100 mls/hr Norepinephrine Bitartrate 4 mg (/ Dextrose) 254 mls @ 15.24 mls/hr IV .[id number] PRN; Protocol PRN Reason: TITRATE PER MD ORDER Last Titration: 04/18/18 14:53 Dose: 4.93 mcg/min, 18.8 mls/hr Metronidazole (Flagyl) 500 mg in 100 mls @ 100 mls/hr IVPB Q8H [facility]; Protocol Last Admin: 04/18/18 17:59 Dose: 100 mls/hr Cefepime HCl (Maxipime Iv 1 Gm Premix) 1 gm in 50 mls @ 100 mls/hr IVPB Q12H [facility]; Protocol Last Admin: 04/18/18 17:49 Dose: 100 mls/hr Propofol (Diprivan) 1,000 mg in 100 mls @ 3.001 mls/hr IV .Q24H PRN; Protocol PRN Reason: TITRATE PER MD ORDER Last Admin: 04/18/18 20:37 Dose: 20 mcg/kg/min, 12.002 mls/hr Dextrose/Sodium Chloride (Dextrose 5%/0.9% Ns 1000 Ml) 1,000 mls @ 100 mls/hr IV .Q10H [facility] Last Admin: 04/18/18 19:52 Dose: Not Given Vasopressin 40 units/ Dextrose 42 mls @ 1.26 mls/hr IV .Q24H [facility] Last Admin: 04/18/18 11:17 Dose: 1.26 mls/hr Insulin Aspart (Novolog) 0 unit SC Q6 [facility]; Protocol Last Admin: 04/18/18 17:52 Dose: Not Given Nystatin (Nystop Topical Powder) 1 applic TOP BID [facility]EV Last Admin: 04/18/18 17:51 Dose: 1 applic Pantoprazole Sodium (Protonix Inj) 40 mg IVP DAILY [facility] Last Admin: 04/18/18 09:27 Dose: 40 mg Silver Sulfadiazine (Silvadene 1% 20 Gm) 0 ea TOP BID [facility] Last Admin: 04/18/18 17:50 Dose: 1 applic - Labs Labs: 04/18/18 06:37 04/18/18 06:37 PT 19.3 SECONDS (9.7-12.2) H 04/18/18 06:37 INR 1.8 04/18/18 06:37 APTT 41 SECONDS (21-34) H 04/18/18 06:37 - Constitutional Appears: Toxic, Older Than Stated Age, Chronically Ill, Other (Sedated and orally intubated) - Head Exam Head Exam: ATRAUMATIC, NORMAL INSPECTION - Eye Exam Eye Exam: EOMI, Normal appearance. absent: Conjunctival injection Pupil Exam: NORMAL ACCOMODATION, PERRL. absent: Fixed, Irregular - ENT Exam ENT Exam: Mucous Membranes Moist - Neck Exam Neck Exam: Full ROM. absent: Lymphadenopathy, Meningismus, Normal Inspection, Tenderness - Respiratory Exam Respiratory Exam: Accessory Muscle Use, Chest Wall Tenderness, Decreased Breath Sounds, Prolonged Expiratory Phase, Rales, Rhonchi. absent: Clear to Ausculation Bilateral, Wheezes - Cardiovascular Exam Cardiovascular Exam: Tachycardia, REGULAR RHYTHM, RRR. absent: Bradycardia, Diastolic murmur, JVD, Murmur - GI/Abdominal Exam GI & Abdominal Exam: Distended, Soft, Normal Bowel Sounds. absent: Guarding, Rigid, Tenderness - Extremities Exam Extremities Exam: Normal Capillary Refill, Pedal Edema, Tenderness. absent: Calf Tenderness, Full ROM - Neurological Exam Neurological Exam: Awake (Light sedation) Assessment and Plan (1) Acute respiratory failure with hypoxia Status: Acute (2) Pneumonia Status: Acute (3) Pleural effusion Status: Acute (4) Congestive heart failure Status: Acute (5) Free intraperitoneal air Status: Acute (6) Perforated abdominal viscus Status: Acute - Assessment and Plan (Free Text) Assessment: I have reviewed all the relevant clinical, laboratory, hemodynamic, radiographic data and medications 82 yo female w/ PMH of CHF, HTN, Afib on AC admitted for bilateral pleural effusions and pneumonia. Patient was intubated and extubated and on bi-pap. Patient has recurrent pleural effusions s/p thoracentesis and chest tube placement. Patient on CT abd/pelvis showed perforation with free air. Poor surgical candidate -Peritoneal free air: not a surgical candidate, daughter advised conservative management with IV abx Hypoxic respiratory failure: continue bi-pap, low threshold for intubation as patient slowly being fluid overloaded Septic shock: continue pressors to keep MAP >65, continue abx as per ID, no practical way to obtain source control Gi: NPO, NG to suction bleeding from POC index figer: resolved Thrombocytopenia: liekly sepsis, check HIT panel MEL: 2nd septic shock, monitor urine output, IV D5/NS DVT ppx: SCDS, (thrombocytopenia) GI ppx: Protonix IV
[2018-04-19] MEDS: (Novolog) Insulin Aspart, Recombinant 100 u/ml 10 ml vial SC SCH ×4 (00:01→17:51)
[2018-04-19] MEDS: Albuterol-Ipratrop 3 mg / 0.5 (3 ml) UD INH SCH ×4 (02:10→20:13)
[2018-04-19] MEDS: Albumin Human 25% (12.5 gm/50 ml) IV SCH (02:38)
[2018-04-19] MEDS: metroNIDAZOLE IV 500 mg/100 ml 500 MG/100 ML BAG IVPB SCH ×3 (02:39→18:09)
[2018-04-19] MEDS: Cefepime IV 1 gm in Dextrose 1 GM/50 ML BAG IVPB SCH ×2 (05:02→17:34)
[2018-04-19] MEDS: Dextrose 5%/0.9% NS 1,000 ML IV SCH ×2 (05:06→16:07)
[2018-04-19 05:42] LABS: ABG ALLEN TEST NEG; ARTERIAL BLOOD GAS HCO3 25.6 mmol/L (21-28); ARTERIAL BLOOD GAS O2 SAT 98.6 % (95-98); ARTERIAL BLOOD GAS PCO2 33 mm/Hg (35-45); ARTERIAL BLOOD GAS PH 7.47 (7.35-7.45); ARTERIAL BLOOD GAS PO2 88 mm/Hg (80-100)
[2018-04-19 06:40] LABS: ALB/GLOB RATIO 1.1 (1.0-2.1); ALBUMIN 2.1 g/dL (3.5-5.0); CALCIUM 6.7 mg/dl (8.6-10.4)
[2018-04-19 06:52] LABS: BASO % 0.1 % (0.0-2.0); HEMOGLOBIN 7.3 g/dL (11.0-16.0); LYMPH # 0.2 K/uL (1.0-4.3); LYMPH % 6.3 % (20.0-40.0); MEAN CELL VOLUME 84.3 fL (81.0-99.0); MEAN CORPUSCULAR HEMOGLOBIN 26.9 pg (27.0-31.0); MEAN CORPUSCULAR HGB CONC 31.9 g/dL (33.0-37.0); MEAN PLATELET VOLUME 9.4 fL (7.2-11.7); MONO # 0.1 K/uL (0.0-0.8); MONO % 2.9 % (0.0-10.0); NEUT # 2.2 K/uL (1.8-7.0); NEUT % 89.7 % (50.0-75.0); RBC 2.73 Mil/uL (3.80-5.20); RED CELL DISTRIBUTION WIDTH 25.8 % (11.5-14.5); WHITE BLOOD COUNT 2.4 K/uL (4.8-10.8)
[2018-04-19] MEDS: Propofol 10 mg/ml 1,000 MG/100 ML VIAL IV PRN ×2 (06:56→17:39)
[2018-04-19 06:57] LABS: PLATELET COUNT 18 K/uL (130-400)
[2018-04-19 08:09] LABS: ANISOCYTOSIS SLIGHT; BANDS 2 % (0-2); LYMPHOCYTE 6 % (20-40); MONOCYTE 2 % (0-10); NEUTROPHIL 90 % (50-75); PLATELET ESTIMATE MARKEDLY DECREASED (NORMAL); POIKILOCYTOSIS SLIGHT; TOTAL CELLS COUNTED 50
[2018-04-19 08:10] LABS: HYPOCHROMIC MODERATE; MICROCYTOSIS SLIGHT; OVALOCYTES SLIGHT; TARGET CELLS SLIGHT
[2018-04-19 08:11] LABS: BURR CELLS SLIGHT
--- NOTE | 2018-04-19 08:23 | CP.PCM.PN ---
<Nena Ellington - Last Filed: 04/19/18 12:58> Subjective - Date & Time of Evaluation Date of Evaluation: 04/19/18 Time of Evaluation: 08:23 - Subjective Subjective: Surgery; Dr. Gordon Pt seen and examined. Continues to be intubated in the ICU. Overnight her pressors were weaned off and pt only remains on Vaso. Plan for extubation today as per discussion with family & ICU if pt tolerates. No fevers recorded overnight. Objective - Vital Signs/Intake and Output Vital Signs (last 24 hours): Temp Pulse Resp BP Pulse Ox 98.3 F 94 H 19 90/65 L 100 04/19/18 04:00 04/19/18 06:00 04/19/18 06:00 04/19/18 05:57 04/19/18 06:00 Intake and Output: 04/19/18 04/19/18 06:59 18:59 Intake Total 2189.1 Output Total 690 Balance 1499.1 - Medications Medications: Current Medications Acetaminophen (Tylenol 325mg Tab) 650 mg PO Q6 PRN PRN Reason: Fever >100.4 F Last Admin: 04/02/18 04:36 Dose: 650 mg Albuterol/Ipratropium (Duoneb 3 Mg/0.5 Mg (3 Ml) Ud) 3 ml INH RQ6 KEV Last Admin: 04/19/18 07:10 Dose: 3 ml Bacitracin (Bacitracin) 0 gm TOP BID KEV Last Admin: 04/18/18 17:51 Dose: 1 applic Hydromorphone HCl (Dilaudid) 0.5 mg IVP Q6H PRN PRN Reason: Pain, moderate (4-7) Fluconazole (Diflucan Iv 100 Mg/50 Ml Ns) 50 mls @ 100 mls/hr IVPB DAILY K[facility]; Protocol Last Admin: 04/18/18 09:30 Dose: 100 mls/hr Norepinephrine Bitartrate 4 mg (/ Dextrose) 254 mls @ 15.24 mls/hr IV .[id number] PRN; Protocol PRN Reason: TITRATE PER MD ORDER Last Titration: 04/19/18 04:00 Dose: 0 mcg/min, 0 mls/hr Metronidazole (Flagyl) 500 mg in 100 mls @ 100 mls/hr IVPB Q8H [facility]; Protocol Last Admin: 04/19/18 02:39 Dose: 100 mls/hr Cefepime HCl (Maxipime Iv 1 Gm Premix) 1 gm in 50 mls @ 100 mls/hr IVPB Q12H [facility]; Protocol Last Admin: 04/19/18 05:02 Dose: 100 mls/hr Propofol (Diprivan) 1,000 mg in 100 mls @ 3.001 mls/hr IV .Q24H PRN; Protocol PRN Reason: TITRATE PER MD ORDER Last Admin: 04/19/18 06:56 Dose: 15 mcg/kg/min, 9.002 mls/hr Dextrose/Sodium Chloride (Dextrose 5%/0.9% Ns 1000 Ml) 1,000 mls @ 100 mls/hr IV .Q10H [facility] Last Admin: 04/19/18 05:06 Dose: 100 mls/hr Vasopressin 40 units/ Dextrose 42 mls @ 1.26 mls/hr IV .Q24H [facility] Last Admin: 04/18/18 21:48 Dose: 1.26 mls/hr Insulin Aspart (Novolog) 0 unit SC Q6 [facility]; Protocol Last Admin: 04/19/18 06:08 Dose: 1 unit Nystatin (Nystop Topical Powder) 1 applic TOP BID [facility] Last Admin: 04/18/18 17:51 Dose: 1 applic Pantoprazole Sodium (Protonix Inj) 40 mg IVP DAILY [facility] Last Admin: 04/18/18 09:27 Dose: 40 mg Silver Sulfadiazine (Silvadene 1% 20 Gm) 0 ea TOP BID [facility] Last Admin: 04/18/18 17:50 Dose: 1 applic - Labs Labs: 04/19/18 06:54 04/19/18 06:13 PT 19.3 SECONDS (9.7-12.2) H 04/18/18 06:37 INR 1.8 04/18/18 06:37 APTT 41 SECONDS (21-34) H 04/18/18 06:37 - Constitutional Appears: Well, No Acute Distress - ENT Exam Additional comments: ETT in place - Cardiovascular Exam Cardiovascular Exam: RRR - GI/Abdominal Exam GI & Abdominal Exam: Soft. absent: Distended, Guarding - Skin Skin Exam: Dry, Warm Assessment and Plan - Assessment and Plan (Free Text) Assessment: 82F with perforated viscus Plan: - cont conservative management - repeat CT abdomen/pelvis - weaning trials with possible extubation - no plan for surgical intervention as per discussion with family - d/w Dr. Heidi Ellington <Milad Gordon - Last Filed: 04/22/18 09:00> Objective - Vital Signs/Intake and Output Vital Signs (last 24 hours): Temp Pulse Resp BP Pulse Ox 97 F L 47 L 11 L 63/30 L 97 04/21/18 20:00 04/21/18 21:01 04/21/18 21:01 04/21/18 21:01 04/21/18 17:00 Intake and Output: 04/22/18 04/22/18 06:59 18:59 Intake Total 15 Balance 15 - Labs Labs: 04/21/18 05:47 04/21/18 05:47 PT 23.5 SECONDS (9.7-12.2) H 04/20/18 06:32 INR 2.1 04/20/18 06:32 APTT 52 SECONDS (21-34) H D 04/20/18 06:32 Attending/Attestation - Attestation I have personally seen and examined this patient.: Yes I have fully participated in the care of the patient.: Yes I have reviewed all pertinent clinical information, including history, physical exam and plan: Yes Notes (Text): Pt was seen and examined at bedside Pt remain intubated and sedated Terminal extubation today Very poor prognosis c.w ICU management Plan d.w ICU attending and family in detail Risk and benefit explained in detail.
[2018-04-19] MEDS: Bacitracin Ointment 30 GM TUBE TOP SCH ×2 (09:39→17:53)
[2018-04-19] MEDS: Silver Sulfadiazine 1% Cream (20 gm) TOP SCH ×2 (09:39→18:12)
[2018-04-19] MEDS: Fluconazole IV 100mg/50 ml NS 50 ML IVPB SCH (09:56)
[2018-04-19] MEDS ORDERED: Iohexol 240 (50 ml) PO ONE (10:00)
--- NOTE | 2018-04-19 11:10 | CP.PCM.PN ---
Subjective - Date & Time of Evaluation Date of Evaluation: 04/19/18 Time of Evaluation: 07:00 - Subjective Subjective: intubated/ sedated on vent afebrile Objective - Vital Signs/Intake and Output Vital Signs (last 24 hours): Temp Pulse Resp BP Pulse Ox 97.6 F 88 19 93/69 L 100 04/19/18 08:00 04/19/18 11:00 04/19/18 11:00 04/19/18 11:00 04/19/18 11:00 Intake and Output: 04/19/18 04/19/18 06:59 18:59 Intake Total 2189.1 304.8 Output Total 690 Balance 1499.1 304.8 - Medications Medications: Current Medications Acetaminophen (Tylenol 325mg Tab) 650 mg PO Q6 PRN PRN Reason: Fever >100.4 F Last Admin: 04/02/18 04:36 Dose: 650 mg Albuterol/Ipratropium (Duoneb 3 Mg/0.5 Mg (3 Ml) Ud) 3 ml INH RQ6 KEV Last Admin: 04/19/18 07:10 Dose: 3 ml Bacitracin (Bacitracin) 0 gm TOP BID KEV Last Admin: 04/19/18 09:39 Dose: 1 applic Hydromorphone HCl (Dilaudid) 0.5 mg IVP Q6H PRN PRN Reason: Pain, moderate (4-7) Fluconazole (Diflucan Iv 100 Mg/50 Ml Ns) 50 mls @ 100 mls/hr IVPB DAILY K[facility]; Protocol Last Admin: 04/19/18 09:56 Dose: 100 mls/hr Norepinephrine Bitartrate 4 mg (/ Dextrose) 254 mls @ 15.24 mls/hr IV .[id number] PRN; Protocol PRN Reason: TITRATE PER MD ORDER Last Titration: 04/19/18 04:00 Dose: 0 mcg/min, 0 mls/hr Metronidazole (Flagyl) 500 mg in 100 mls @ 100 mls/hr IVPB Q8H [facility]; Protocol Last Admin: 04/19/18 10:05 Dose: 100 mls/hr Cefepime HCl (Maxipime Iv 1 Gm Premix) 1 gm in 50 mls @ 100 mls/hr IVPB Q12H [facility]; Protocol Last Admin: 04/19/18 05:02 Dose: 100 mls/hr Propofol (Diprivan) 1,000 mg in 100 mls @ 3.001 mls/hr IV .Q24H PRN; Protocol PRN Reason: TITRATE PER MD ORDER Last Admin: 04/19/18 06:56 Dose: 15 mcg/kg/min, 9.002 mls/hr Dextrose/Sodium Chloride (Dextrose 5%/0.9% Ns 1000 Ml) 1,000 mls @ 100 mls/hr IV .Q10H [facility] Last Admin: 04/19/18 05:06 Dose: 100 mls/hr Vasopressin 40 units/ Dextrose 42 mls @ 1.26 mls/hr IV .Q24H [facility] Last Admin: 04/18/18 21:48 Dose: 1.26 mls/hr Insulin Aspart (Novolog) 0 unit SC Q6 [facility]; Protocol Last Admin: 04/19/18 06:08 Dose: 1 unit Nystatin (Nystop Topical Powder) 1 applic TOP BID [facility] Last Admin: 04/19/18 09:40 Dose: 1 applic Pantoprazole Sodium (Protonix Inj) 40 mg IVP DAILY [facility] Last Admin: 04/19/18 09:50 Dose: 40 mg Silver Sulfadiazine (Silvadene 1% 20 Gm) 0 ea TOP BID [facility] Last Admin: 04/19/18 09:39 Dose: 1 applic - Labs Labs: 04/19/18 06:54 04/19/18 06:13 PT 19.3 SECONDS (9.7-12.2) H 04/18/18 06:37 INR 1.8 04/18/18 06:37 APTT 41 SECONDS (21-34) H 04/18/18 06:37 - Constitutional Appears: Confused, Cachectic, Chronically Ill - Head Exam Head Exam: ATRAUMATIC, NORMOCEPHALIC - Eye Exam Eye Exam: absent: Scleral icterus - ENT Exam ENT Exam: Mucous Membranes Dry - Neck Exam Neck Exam: absent: Lymphadenopathy - Respiratory Exam Respiratory Exam: Decreased Breath Sounds, Rhonchi - Cardiovascular Exam Cardiovascular Exam: REGULAR RHYTHM, +S1, +S2 - GI/Abdominal Exam GI & Abdominal Exam: Distended, Tenderness, Diminished Bowel Sounds - Rectal Exam Rectal Exam: Deferred - Exam Exam: NORMAL INSPECTION - Extremities Exam Extremities Exam: absent: Pedal Edema - Back Exam Back Exam: absent: CVA tenderness (L), CVA tenderness (R) - Neurological Exam Neurological Exam: Altered - Psychiatric Exam Psychiatric exam: Depressed - Skin Skin Exam: Dry Assessment and Plan (1) Acute respiratory failure Status: Acute (2) Atrial fibrillation and flutter Status: Acute (3) CHF (congestive heart failure) Status: Acute (4) Pleural effusion Status: Acute (5) Perforated viscus Status: Acute (6) Perforated abdominal viscus Status: Acute - Assessment and Plan (Free Text) Assessment: prognosis remains poor possible terminal extubation cont IV rx and supportive measures
--- NOTE | 2018-04-19 11:54 | CP.CCUPN ---
CCU Subjective - Physician Review Subjective (Free Text): 04/19/18 11:[address] CC Progress note for Dr Carbone Service Patient s/e at bedside. Patient is currently intubated. No family at bedside. ROS unttainable due to patient's condition. Critical Care Time Spent (in minutes): 35 CCU Objective - Vital Signs / Intake & Output Vital Signs (Last 4 hours): Vital Signs Temp Pulse Resp BP Pulse Ox 04/19/18 11:00 88 19 93/69 L 100 04/19/18 10:00 91 H 18 90/66 L 100 04/19/18 09:00 93 H 17 90/72 L 100 04/19/18 08:00 97.6 F 92 H 18 93/69 L 100 Intake and Output (Last 8hrs): Intake & Output 04/18/18 04/19/18 04/19/18 22:59 06:59 14:59 Intake Total 1123.6 1398.3 304.8 Output Total 1160 430 Balance -36.4 968.3 304.8 Weight 230 lb Intake: IV 218 171 Intake, IV Amount 905.6 1227.3 304.8 Left Distal Port Internal 142.8 93.9 Jugular Left Medial Port Internal 96 72.6 Jugular Left Proximal Port 16.8 10.8 4.8 Left Proximal Port 550 900 300 Internal Jugular Right arm mid line 100 150 Output: Chest Tube Drainage 0 40 Left Posterior Chest 0 40 Urine 1160 390 Urine, Voided 1160 390 Other: # Bowel Movements 1 - Physical Exam Head: Positive for: Atraumatic, Normocephalic, Other (central line in left IJ) Pupils: Positive for: PERRL Conjunctiva: Positive for: Normal Mouth: Positive for: Dry, Other (ET tube in place ) Neck: Negative for: JVD, Lymphadenopathy Respiratory/Chest: Positive for: Good Air Exchange, Decreased Breath Sounds. Negative for: Accessory Muscle Use, Wheezes, Tachypneic Cardiovascular: Positive for: Regular Rate and Rhythm, Normal S1, S2. Negative for: Murmurs, Irregular Rhythm Abdomen: Positive for: Tenderness, Normal Bowel Sounds, Other (umbilical hernia). Negative for: Distention, Peritoneal Signs, Rebound, Guarding Genitourinary/Pelvic Exam: Positive for: Other ([place] in place for strict Is/Os) Upper Extremity: Positive for: Normal Inspection, Edema. Negative for: Cyanosis Lower Extremity: Positive for: Normal Inspection, Edema Neurological: Positive for: Other (sedated). Negative for: GCS=15 Skin: Positive for: Dry, Normal Color, Other (chest tube in posterior left back, right foot ulcer, and sacral unstageable ulcer). Negative for: Diaphoretic - Medications Active Medications: Active Medications Generic Name Dose Route Start Last Admin Trade Name Freq PRN Reason Stop Dose Admin Acetaminophen 650 mg 03/23/18 15:59 04/02/18 04:36 Tylenol 325mg Tab PO 650 mg Q6 PRN Administration Fever >100.4 F Albuterol/Ipratropium 3 ml 04/02/18 14:00 04/19/18 07:10 Duoneb 3 Mg/0.5 Mg (3 Ml) Ud INH 3 ml RQ6 KEV Administration Bacitracin 0 gm 04/01/18 18:00 04/19/18 09:39 Bacitracin TOP 1 applic BID KEV Administration Hydromorphone HCl 0.5 mg 04/17/18 08:22 Dilaudid IVP Q6H PRN Pain, moderate (4-7) Fluconazole 50 mls @ 100 mls/hr 03/27/18 10:00 04/19/18 09:56 Diflucan Iv 100 Mg/50 Ml Ns IVPB 100 mls/hr DAILY KEV Administration Protocol Norepinephrine Bitartrate 4 mg 254 mls @ 15.24 mls/hr 04/12/18 18:52 04/19/18 04:00 / Dextrose IV 0 mcg/min .[id number] PRN 0 mls/hr TITRATE PER MD ORDER Titration Protocol 4 MCG/MIN Metronidazole 500 mg in 100 mls @ 100 mls/hr 04/16/18 11:00 04/19/18 10:05 Flagyl IVPB 100 mls/hr Q8H KEV Administration Protocol Cefepime HCl 1 gm in 50 mls @ 100 mls/hr 04/17/18 06:00 04/19/18 05:02 Maxipime Iv 1 Gm Premix IVPB 100 mls/hr Q12H KEV Administration Protocol Propofol 1,000 mg in 100 mls @ 3.001 mls/hr 04/17/18 08:21 04/19/18 06:56 Diprivan IV 15 mcg/kg/min .Q24H PRN 9.002 mls/hr TITRATE PER MD ORDER Administration Protocol 5 MCG/KG/MIN Dextrose/Sodium Chloride 1,000 mls @ 100 mls/hr 04/18/18 08:45 04/19/18 05:06 Dextrose 5%/0.9% Ns 1000 Ml IV 100 mls/hr .Q10H KEV Administration Vasopressin 40 units/ Dextrose 42 mls @ 1.26 mls/hr 04/18/18 09:00 04/18/18 21:48 IV 1.26 mls/hr .Q24H KEV Administration 0.02 UNITS/MIN Insulin Aspart 0 unit 04/16/18 12:00 04/19/18 06:08 Novolog SC 1 unit Q6 KEV Administration Protocol Nystatin 1 applic 03/23/18 18:00 04/19/18 09:40 Nystop Topical Powder TOP 1 applic BID KEV Administration Pantoprazole Sodium 40 mg 04/16/18 12:00 04/19/18 09:50 Protonix Inj IVP 40 mg DAILY KEV Administration Silver Sulfadiazine 0 ea 03/26/18 10:00 04/19/18 09:39 Silvadene 1% 20 Gm TOP 1 applic BID KEV Administration - Patient Studies Lab Studies: Lab Studies 04/19/18 04/19/18 04/19/18 Range/Units 06:54 06:13 06:13 WBC 2.4 L (4.8-10.8) K/uL RBC 2.73 L (3.80-5.20) Mil/uL Hgb 7.3 L (11.0-16.0) g/dL Hct 23.0 L (34.0-47.0) % MCV 84.3 (81.0-99.0) fL MCH 26.9 L (27.0-31.0) pg MCHC 31.9 L (33.0-37.0) g/dL RDW 25.8 H (11.5-14.5) % Plt Count 18 L* D (130-400) K/uL MPV 9.4 (7.2-11.7) fL Neut % (Auto) 89.7 H (50.0-75.0) % Lymph % (Auto) 6.3 L (20.0-40.0) % Dixie % (Auto) 2.9 (0.0-10.0) % Eos % (Auto) 1.0 (0.0-4.0) % Baso % (Auto) 0.1 (0.0-2.0) % Neut # (Auto) 2.2 (1.8-7.0) K/uL Lymph # (Auto) 0.2 L (1.0-4.3) K/uL Dixie # (Auto) 0.1 (0.0-0.8) K/uL Eos # (Auto) 0.0 (0.0-0.7) K/uL Baso # (Auto) 0.0 (0.0-0.2) K/uL Neutrophils % (Manual) 90 H (50-75) % Band Neutrophils % 2 (0-2) % Lymphocytes % (Manual) 6 L (20-40) % Monocytes % (Manual) 2 (0-10) % Platelet Estimate Markedly decreased L (NORMAL) Hypochromasia (manual) Moderate Poikilocytosis (manual Slight Anisocytosis (manual) Slight Microcytosis (manual) Slight Target Cells Slight Ovalocytes Slight Shalini Cells Slight Puncture Site pCO2 (35-45) mm/Hg pO2 (80-100) mm/Hg HCO3 (21-28) mmol/L ABG pH (7.35-7.45) ABG Total CO2 (22-28) mmol/L ABG O2 Saturation (95-98) % ABG Base Excess (-2.0-3.0) mmol/L Pawel Test ABG Potassium (3.6-5.2) mmol/L A-a O2 Difference mm/Hg Respiratory Index Sodium 135 (132-148) mmol/l Chloride 101 (98-107) mmol/L Glucose (65-105) mg/dl Lactate (0.7-2.1) mmol/L Vent Mode Mechanical Rate FiO2 % Tidal Volume Potassium 3.8 (3.6-5.2) mmol/L Carbon Dioxide 21 L (22-30) mmol/L Anion Gap 17 (10-20) BUN 65 H (7-17) mg/dL Creatinine 1.4 H (0.7-1.2) mg/dL Est GFR ( Amer) 43 Est GFR (Non-Af Amer) 36 POC Glucose (mg/dL) (65-110) mg/dL Random Glucose 148 H D (65-105) mg/dL Lactic Acid 2.3 H (0.7-2.1) mmol/L Calcium 6.7 L (8.6-10.4) mg/dl Phosphorus 3.5 (2.5-4.5) mg/dL Magnesium 1.8 (1.6-2.3) mg/dL Total Bilirubin 1.9 H (0.2-1.3) mg/dL AST 28 (14-36) U/L ALT 24 (9-52) U/L Alkaline Phosphatase 23 L D (38-126) U/L Total Protein 3.9 L (6.3-8.3) g/dL Albumin 2.1 L (3.5-5.0) g/dL Globulin 1.9 L (2.2-3.9) gm/dL Albumin/Globulin Ratio 1.1 (1.0-2.1) Arterial Blood Potassium (3.6-5.2) mmol/L Random Vancomycin ug/mL 04/19/18 04/19/18 04/18/18 Range/Units 06:06 05:20 23:37 WBC (4.8-10.8) K/uL RBC (3.80-5.20) Mil/uL Hgb (11.0-16.0) g/dL Hct (34.0-47.0) % MCV (81.0-99.0) fL MCH (27.0-31.0) pg MCHC (33.0-37.0) g/dL RDW (11.5-14.5) % Plt Count (130-400) K/uL MPV (7.2-11.7) fL Neut % (Auto) (50.0-75.0) % Lymph % (Auto) (20.0-40.0) % Dixie % (Auto) (0.0-10.0) % Eos % (Auto) (0.0-4.0) % Baso % (Auto) (0.0-2.0) % Neut # (Auto) (1.8-7.0) K/uL Lymph # (Auto) (1.0-4.3) K/uL Dixie # (Auto) (0.0-0.8) K/uL Eos # (Auto) (0.0-0.7) K/uL Baso # (Auto) (0.0-0.2) K/uL Neutrophils % (Manual) (50-75) % Band Neutrophils % (0-2) % Lymphocytes % (Manual) (20-40) % Monocytes % (Manual) (0-10) % Platelet Estimate (NORMAL) Hypochromasia (manual) Poikilocytosis (manual Anisocytosis (manual) Microcytosis (manual) Target Cells Ovalocytes Shalini Cells Puncture Site Rbrachial pCO2 33 L (35-45) mm/Hg pO2 88 (80-100) mm/Hg HCO3 25.6 (21-28) mmol/L ABG pH 7.47 H (7.35-7.45) ABG Total CO2 25.0 (22-28) mmol/L ABG O2 Saturation 98.6 H (95-98) % ABG Base Excess 0.9 (-2.0-3.0) mmol/L Pawel Test Neg ABG Potassium 3.5 L (3.6-5.2) mmol/L A-a O2 Difference 227.0 mm/Hg Respiratory Index 2.6 Sodium 136.0 (132-148) mmol/l Chloride 105.0 (98-107) mmol/L Glucose 149 H (65-105) mg/dl Lactate 2.0 (0.7-2.1) mmol/L Vent Mode Prvc Mechanical Rate 18 FiO2 50.0 % Tidal Volume 470 Potassium (3.6-5.2) mmol/L Carbon Dioxide (22-30) mmol/L Anion Gap (10-20) BUN (7-17) mg/dL Creatinine (0.7-1.2) mg/dL Est GFR ( Amer) Est GFR (Non-Af Amer) POC Glucose (mg/dL) 185 H 190 H (65-110) mg/dL Random Glucose (65-105) mg/dL Lactic Acid (0.7-2.1) mmol/L Calcium (8.6-10.4) mg/dl Phosphorus (2.5-4.5) mg/dL Magnesium (1.6-2.3) mg/dL Total Bilirubin (0.2-1.3) mg/dL AST (14-36) U/L ALT (9-52) U/L Alkaline Phosphatase (38-126) U/L Total Protein (6.3-8.3) g/dL Albumin (3.5-5.0) g/dL Globulin (2.2-3.9) gm/dL Albumin/Globulin Ratio (1.0-2.1) Arterial Blood Potassium 3.5 L (3.6-5.2) mmol/L Random Vancomycin ug/mL 04/18/18 04/18/18 04/18/18 Range/Units 17:31 12:30 11:35 WBC (4.8-10.8) K/uL RBC (3.80-5.20) Mil/uL Hgb (11.0-16.0) g/dL Hct (34.0-47.0) % MCV (81.0-99.0) fL MCH (27.0-31.0) pg MCHC (33.0-37.0) g/dL RDW (11.5-14.5) % Plt Count (130-400) K/uL MPV (7.2-11.7) fL Neut % (Auto) (50.0-75.0) % Lymph % (Auto) (20.0-40.0) % Dixie % (Auto) (0.0-10.0) % Eos % (Auto) (0.0-4.0) % Baso % (Auto) (0.0-2.0) % Neut # (Auto) (1.8-7.0) K/uL Lymph # (Auto) (1.0-4.3) K/uL Dixie # (Auto) (0.0-0.8) K/uL Eos # (Auto) (0.0-0.7) K/uL Baso # (Auto) (0.0-0.2) K/uL Neutrophils % (Manual) (50-75) % Band Neutrophils % (0-2) % Lymphocytes % (Manual) (20-40) % Monocytes % (Manual) (0-10) % Platelet Estimate (NORMAL) Hypochromasia (manual) Poikilocytosis (manual Anisocytosis (manual) Microcytosis (manual) Target Cells Ovalocytes Shalini Cells Puncture Site pCO2 (35-45) mm/Hg pO2 (80-100) mm/Hg HCO3 (21-28) mmol/L ABG pH (7.35-7.45) ABG Total CO2 (22-28) mmol/L ABG O2 Saturation (95-98) % ABG Base Excess (-2.0-3.0) mmol/L Pawel Test ABG Potassium (3.6-5.2) mmol/L A-a O2 Difference mm/Hg Respiratory Index Sodium (132-148) mmol/l Chloride (98-107) mmol/L Glucose (65-105) mg/dl Lactate (0.7-2.1) mmol/L Vent Mode Mechanical Rate FiO2 % Tidal Volume Potassium (3.6-5.2) mmol/L Carbon Dioxide (22-30) mmol/L Anion Gap (10-20) BUN (7-17) mg/dL Creatinine (0.7-1.2) mg/dL Est GFR ( Amer) Est GFR (Non-Af Amer) POC Glucose (mg/dL) 180 H 156 H (65-110) mg/dL Random Glucose (65-105) mg/dL Lactic Acid (0.7-2.1) mmol/L Calcium (8.6-10.4) mg/dl Phosphorus (2.5-4.5) mg/dL Magnesium (1.6-2.3) mg/dL Total Bilirubin (0.2-1.3) mg/dL AST (14-36) U/L ALT (9-52) U/L Alkaline Phosphatase (38-126) U/L Total Protein (6.3-8.3) g/dL Albumin (3.5-5.0) g/dL Globulin (2.2-3.9) gm/dL Albumin/Globulin Ratio (1.0-2.1) Arterial Blood Potassium (3.6-5.2) mmol/L Random Vancomycin < 5.0 ug/mL Laboratory Results - last 24 hr 04/18/18 04/18/18 04/18/18 11:35 12:30 17:31 WBC RBC Hgb Hct MCV MCH MCHC RDW Plt Count MPV Neut % (Auto) Lymph % (Auto) Dixie % (Auto) Eos % (Auto) Baso % (Auto) Neut # (Auto) Lymph # (Auto) Dixie # (Auto) Eos # (Auto) Baso # (Auto) Neutrophils % (Manual) Band Neutrophils % Lymphocytes % (Manual) Monocytes % (Manual) Platelet Estimate Hypochromasia (manual) Poikilocytosis (manual Anisocytosis (manual) Microcytosis (manual) Target Cells Ovalocytes Velva Cells Puncture Site pCO2 pO2 HCO3 ABG pH ABG Total CO2 ABG O2 Saturation ABG Base Excess Pawel Test ABG Potassium A-a O2 Difference Respiratory Index Sodium Chloride Glucose Lactate Vent Mode Mechanical Rate FiO2 Tidal Volume Potassium Carbon Dioxide Anion Gap BUN Creatinine Est GFR ( Amer) Est GFR (Non-Af Amer) POC Glucose (mg/dL) 156 H 180 H Random Glucose Lactic Acid Calcium Phosphorus Magnesium Total Bilirubin AST ALT Alkaline Phosphatase Total Protein Albumin Globulin Albumin/Globulin Ratio Arterial Blood Potassium Random Vancomycin < 5.0 04/18/18 04/19/18 04/19/18 23:37 05:20 06:06 WBC RBC Hgb Hct MCV MCH MCHC RDW Plt Count MPV Neut % (Auto) Lymph % (Auto) Dixie % (Auto) Eos % (Auto) Baso % (Auto) Neut # (Auto) Lymph # (Auto) Dixie # (Auto) Eos # (Auto) Baso # (Auto) Neutrophils % (Manual) Band Neutrophils % Lymphocytes % (Manual) Monocytes % (Manual) Platelet Estimate Hypochromasia (manual) Poikilocytosis (manual Anisocytosis (manual) Microcytosis (manual) Target Cells Ovalocytes Velva Cells Puncture Site Rbrachial pCO2 33 L pO2 88 HCO3 25.6 ABG pH 7.47 H ABG Total CO2 25.0 ABG O2 Saturation 98.6 H ABG Base Excess 0.9 Pawel Test Neg ABG Potassium 3.5 L A-a O2 Difference 227.0 Respiratory Index 2.6 Sodium 136.0 Chloride 105.0 Glucose 149 H Lactate 2.0 Vent Mode Prvc Mechanical Rate 18 FiO2 50.0 Tidal Volume 470 Potassium Carbon Dioxide Anion Gap BUN Creatinine Est GFR ( Amer) Est GFR (Non-Af Amer) POC Glucose (mg/dL) 190 H 185 H Random Glucose Lactic Acid Calcium Phosphorus Magnesium Total Bilirubin AST ALT Alkaline Phosphatase Total Protein Albumin Globulin Albumin/Globulin Ratio Arterial Blood Potassium 3.5 L Random Vancomycin 04/19/18 04/19/18 04/19/18 06:13 06:13 06:54 WBC 2.4 L RBC 2.73 L Hgb 7.3 L Hct 23.0 L MCV 84.3 MCH 26.9 L MCHC 31.9 L RDW 25.8 H Plt Count 18 L* D MPV 9.4 Neut % (Auto) 89.7 H Lymph % (Auto) 6.3 L Dixie % (Auto) 2.9 Eos % (Auto) 1.0 Baso % (Auto) 0.1 Neut # (Auto) 2.2 Lymph # (Auto) 0.2 L Dixie # (Auto) 0.1 Eos # (Auto) 0.0 Baso # (Auto) 0.0 Neutrophils % (Manual) 90 H Band Neutrophils % 2 Lymphocytes % (Manual) 6 L Monocytes % (Manual) 2 Platelet Estimate Markedly decreased L Hypochromasia (manual) Moderate Poikilocytosis (manual Slight Anisocytosis (manual) Slight Microcytosis (manual) Slight Target Cells Slight Ovalocytes Slight Velva Cells Slight Puncture Site pCO2 pO2 HCO3 ABG pH ABG Total CO2 ABG O2 Saturation ABG Base Excess Pawel Test ABG Potassium A-a O2 Difference Respiratory Index Sodium 135 Chloride 101 Glucose Lactate Vent Mode Mechanical Rate FiO2 Tidal Volume Potassium 3.8 Carbon Dioxide 21 L Anion Gap 17 BUN 65 H Creatinine 1.4 H Est GFR ( Amer) 43 Est GFR (Non-Af Amer) 36 POC Glucose (mg/dL) Random Glucose 148 H D Lactic Acid 2.3 H Calcium 6.7 L Phosphorus 3.5 Magnesium 1.8 Total Bilirubin 1.9 H AST 28 ALT 24 Alkaline Phosphatase 23 L D Total Protein 3.9 L Albumin 2.1 L Globulin 1.9 L Albumin/Globulin Ratio 1.1 Arterial Blood Potassium Random Vancomycin Fingerstick Blood Sugar Results: 180 Review of Systems - Review of Systems Systems not reviewed;Unavailable: Intubated Critical Care Progress Note - Ventilator Checklist Head of Bed 30 Degrees: Yes PUD Prophalyxis: Yes DVT Prophylaxis: Yes - Vent Settings MODE:: PRVC TIDAL VOLUME:: 470 RESP RATE:: 18 FIO2:: 50 PEEP:: 0 - Extremities/Vascular Does the Patient have a Central Venous Catheter?: Yes Insertion Site: Internal Jugular Vein - Prophylaxis GI Prophylaxis GI: PPI - Prophylaxis DVT Prophylaxis DVT: Not Indicated - Nutrition Nutrition: Nutrition Category Date Time Status NPO Diet [DIET] Diets 04/15/18 Breakfast Active Assessment/Plan - Assessment and Plan (Free Text) Assessment: Patient is a 82 yo female w/ PMH of CHF, HTN, Afib on AC admitted for bilateral pleural effusions and pneumonia. Patient was intubated and extubated. Patient has recurrent pleural effusions s/p thoracentesis and chest tube placement. Patient on CT abd/pelvis showed perforation with free air. Poor surgical candidate. Re-intubated on 04/17/18 Neuro Sedated on propofol no acive issues Pulm on PRVC ventilation Duoneb Q6 PRN CV Platelets trending down, 04/19 patelets at 18 from previous 40 yesterday Repeat CBC, CMP in AM Vasopressin Levophed GI previous CT abd shows free air poor surgical candidate due to comorbidities Repeat CT Scan w/ Po contrast to rule out contrast leak/perforation NPO, NG to suction Heme Thrombocytopenia, likely due to sepsis, Platelets trending down, 04/19 patelets at 18 from previous 40 yesterday Repeat CBC, CMP in AM Endo Q6h accucheck; D5/.9 NS @ 100mls/hr Renal Cr 1.4 from 1.8 yesterday, D5/.9 NS @ 100mls/hr gentle hydration Derm Bacitracin/Nystatin Continue wound care as per wound care/podiatry ID continue abx Fluconazole (started on 03/27) Cefepime (started on 04/01) Flagyl (started 04/16) Nystatin (started on 03/23) DVT ppx: SCDs, anticoag C/I due to thrombocytopenia GI ppx: Protonix IV Disposition: continue medical management as per ICU; no surgical intervention. Will follow up CT abd/pelv PO contrast. will follow up CBC for platelet count, Replete blood products as needed; continue IV abx and wound care; continue pulm/blood pressure management. DNR active. awaiting son's arrival to discuss goals of care. Plan discussed with Dr Raf Gary, PGY-1 - Date & Time Date: 04/19/18 Time: 12:05
--- NOTE | 2018-04-19 16:23 | CT ---
Date of service: 04/19/2018 PROCEDURE: CT Abdomen and Pelvis without intravenous contrast HISTORY: r/o contrast leak COMPARISON: 04/15/2018 TECHNIQUE: Without contrast.. Contrast dose: 0 Radiation dose: Total exam DLP = 1355.96 mGy-cm. This CT exam was performed using one or more of the following dose reduction techniques: Automated exposure control, adjustment of the mA and/or kV according to patient size, and/or use of iterative reconstruction technique. FINDINGS: LOWER THORAX: Reticulonodular interstitial infiltrate in both lower lobes, right middle lobe and lingula. Nonspecific. Possible infectious/inflammatory etiology versus pulmonary edema bilateral lower lobe segmental/subsegmental atelectasis. Nasogastric tube noted traversing the thoracic esophagus to stomach. Cardiomegaly. Coronary arterial calcification. LIVER: Unremarkable. No gross lesion or ductal dilatation. GALLBLADDER AND BILE DUCTS: Cholelithiasis. No significant mural or pericholecystic fluid. PANCREAS: Unremarkable. No gross lesion or ductal dilatation. SPLEEN: Unremarkable. ADRENALS: Unremarkable. No mass. KIDNEYS AND URETERS: 7 mm mid left nonobstructing calculus. Bilateral renal vascular calcifications. No hydronephrosis. No renal mass. VASCULATURE: No evidence of abdominal aortic aneurysm. There is atherosclerotic calcification of the abdominal aorta. 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 BOWEL: No evidence of bowel obstruction. Oral contrast is seen in small and large bowel. There is no evidence of extravasation of oral contrast into the peritoneal cavity. There is diverticulosis at the junction of the descending and sigmoid colon. Mural thickening is suspected in the affected segment of the sigmoid colon. Nonspecific. Likely muscularis hypertrophy. There is also mural thickening of the cecum and proximal ascending colon although this may be artifactual due to fluid in the pericolic gutter. APPENDIX: Not identified PERITONEUM: Ascites, mildly increased from prior there is a bilobed collection of fluid and gas in the pelvis increased in size from prior examination. The right portion of this irregular collection measures approximately 6.9 x 9.3 x 8.7 cm and the left portion of this collection measures approximately 2.4 x 3.2 x 3.7 cm. These 2 collections appear to communicate at their caudal extent. Cannot rule out infected collection though there is no surrounding inflammatory change noted in the mesenteric fat. Pneumoperitoneum is noted, slightly increased in extent from prior examination. There is generalized anasarca noted. LYMPH NODES: Unremarkable. No enlarged lymph nodes. BLADDER: Decompressed around [place] catheter balloon REPRODUCTIVE: Atrophic uterus. BONES: No acute fracture. OTHER FINDINGS: None. IMPRESSION: Pneumoperitoneum and ascites, increased compared to prior examination. Bilateral pleural effusion with lower lobe segmental/subsegmental atelectasis. Diffuse reticulonodular interstitial infiltrate seen in visualized lung bilaterally which may be infectious/inflammatory in etiology or may reflect pulmonary edema. Enlarging bilobed fluid collection in the pelvis as described. No free spillage of enteral contrast material into the peritoneal cavity to suggest acute bowel perforation/leakage. Additional minor findings as above.
--- NOTE | 2018-04-19 16:35 | CP.PCM.PN ---
Subjective - Date & Time of Evaluation Date of Evaluation: 04/19/18 Time of Evaluation: 09:20 - Subjective Subjective: Patient seen and examined Intubated on ventilatory support Sedated Afebrile Thrombocytopenic Objective - Vital Signs/Intake and Output Vital Signs (last 24 hours): Temp Pulse Resp BP Pulse Ox 98.2 F 93 H 20 98/55 L 100 04/19/18 12:00 04/19/18 16:09 04/19/18 16:09 04/19/18 16:00 04/19/18 16:09 Intake and Output: 04/19/18 04/19/18 06:59 18:59 Intake Total 2189.1 870.2 Output Total 690 Balance 1499.1 870.2 - Medications Medications: Current Medications Acetaminophen (Tylenol 325mg Tab) 650 mg PO Q6 PRN PRN Reason: Fever >100.4 F Last Admin: 04/02/18 04:36 Dose: 650 mg Albuterol/Ipratropium (Duoneb 3 Mg/0.5 Mg (3 Ml) Ud) 3 ml INH RQ6 KEV Last Admin: 04/19/18 13:48 Dose: 3 ml Bacitracin (Bacitracin) 0 gm TOP BID KEV Last Admin: 04/19/18 09:39 Dose: 1 applic Hydromorphone HCl (Dilaudid) 0.5 mg IVP Q6H PRN PRN Reason: Pain, moderate (4-7) Fluconazole (Diflucan Iv 100 Mg/50 Ml Ns) 50 mls @ 100 mls/hr IVPB DAILY KEV; Protocol Last Admin: 04/19/18 09:56 Dose: 100 mls/hr Norepinephrine Bitartrate 4 mg (/ Dextrose) 254 mls @ 15.24 mls/hr IV .[id number] PRN; Protocol PRN Reason: TITRATE PER MD ORDER Last Titration: 04/19/18 04:00 Dose: 0 mcg/min, 0 mls/hr Metronidazole (Flagyl) 500 mg in 100 mls @ 100 mls/hr IVPB Q8H KEV; Protocol Last Admin: 04/19/18 10:05 Dose: 100 mls/hr Cefepime HCl (Maxipime Iv 1 Gm Premix) 1 gm in 50 mls @ 100 mls/hr IVPB Q12H KEV; Protocol Last Admin: 04/19/18 05:02 Dose: 100 mls/hr Propofol (Diprivan) 1,000 mg in 100 mls @ 3.001 mls/hr IV .Q24H PRN; Protocol PRN Reason: TITRATE PER MD ORDER Last Admin: 04/19/18 06:56 Dose: 15 mcg/kg/min, 9.002 mls/hr Dextrose/Sodium Chloride (Dextrose 5%/0.9% Ns 1000 Ml) 1,000 mls @ 100 mls/hr IV .Q10H [facility] Last Admin: 04/19/18 16:07 Dose: 100 mls/hr Vasopressin 40 units/ Dextrose 42 mls @ 1.26 mls/hr IV .Q24H [facility] Last Admin: 04/18/18 21:48 Dose: 1.26 mls/hr Insulin Aspart (Novolog) 0 unit SC Q6 [facility]; Protocol Last Admin: 04/19/18 12:51 Dose: Not Given Nystatin (Nystop Topical Powder) 1 applic TOP BID [facility] Last Admin: 04/19/18 09:40 Dose: 1 applic Pantoprazole Sodium (Protonix Inj) 40 mg IVP DAILY [facility] Last Admin: 04/19/18 09:50 Dose: 40 mg Silver Sulfadiazine (Silvadene 1% 20 Gm) 0 ea TOP BID [facility] Last Admin: 04/19/18 09:39 Dose: 1 applic - Labs Labs: 04/19/18 06:54 04/19/18 06:13 PT 19.3 SECONDS (9.7-12.2) H 04/18/18 06:37 INR 1.8 04/18/18 06:37 APTT 41 SECONDS (21-34) H 04/18/18 06:37 - Head Exam Head Exam: ATRAUMATIC, NORMOCEPHALIC - ENT Exam ENT Exam: Mucous Membranes Moist - Respiratory Exam Respiratory Exam: Decreased Breath Sounds - Cardiovascular Exam Cardiovascular Exam: Irregular Rhythm - GI/Abdominal Exam GI & Abdominal Exam: Soft, Normal Bowel Sounds Assessment and Plan (1) Acute respiratory failure Assessment & Plan: Continue ventilatory support Thrombocytopenic and anemic/ transfuse as necessary Continue antibiotics Prognosis poor Status: Acute (2) Atrial fibrillation and flutter Status: Acute (3) CHF (congestive heart failure) Status: Acute (4) Pleural effusion Status: Acute
[2018-04-19] MEDS: Vasopressin 40 UNITS in Dextrose 5% In Water 40 ML IV SCH (17:51)
--- NOTE | 2018-04-19 18:20 | CP.PCM.PN ---
Subjective - Date & Time of Evaluation Date of Evaluation: 04/19/18 Time of Evaluation: 18:18 - Subjective Subjective: pt seen in icu still entubated Objective - Vital Signs/Intake and Output Vital Signs (last 24 hours): Temp Pulse Resp BP Pulse Ox 98.2 F 81 18 94/66 L 100 04/19/18 12:00 04/19/18 17:09 04/19/18 17:09 04/19/18 17:00 04/19/18 17:09 Intake and Output: 04/19/18 04/19/18 06:59 18:59 Intake Total 2189.1 970.2 Output Total 690 Balance 1499.1 970.2 - Medications Medications: Current Medications Acetaminophen (Tylenol 325mg Tab) 650 mg PO Q6 PRN PRN Reason: Fever >100.4 F Last Admin: 04/02/18 04:36 Dose: 650 mg Albuterol/Ipratropium (Duoneb 3 Mg/0.5 Mg (3 Ml) Ud) 3 ml INH RQ6 [facility] Last Admin: 04/19/18 13:48 Dose: 3 ml Bacitracin (Bacitracin) 0 gm TOP BID [facility] Last Admin: 04/19/18 17:53 Dose: 1 applic Hydromorphone HCl (Dilaudid) 0.5 mg IVP Q6H PRN PRN Reason: Pain, moderate (4-7) Fluconazole (Diflucan Iv 100 Mg/50 Ml Ns) 50 mls @ 100 mls/hr IVPB DAILY [facility]; Protocol Last Admin: 04/19/18 09:56 Dose: 100 mls/hr Norepinephrine Bitartrate 4 mg (/ Dextrose) 254 mls @ 15.24 mls/hr IV .[id number] PRN; Protocol PRN Reason: TITRATE PER MD ORDER Last Titration: 04/19/18 04:00 Dose: 0 mcg/min, 0 mls/hr Metronidazole (Flagyl) 500 mg in 100 mls @ 100 mls/hr IVPB Q8H [facility]; Protocol Last Admin: 04/19/18 18:09 Dose: 100 mls/hr Cefepime HCl (Maxipime Iv 1 Gm Premix) 1 gm in 50 mls @ 100 mls/hr IVPB Q12H [facility]; Protocol Last Admin: 04/19/18 17:34 Dose: 100 mls/hr Propofol (Diprivan) 1,000 mg in 100 mls @ 3.001 mls/hr IV .Q24H PRN; Protocol PRN Reason: TITRATE PER MD ORDER Last Admin: 04/19/18 17:39 Dose: 9.99 mcg/kg/min, 6 mls/hr Dextrose/Sodium Chloride (Dextrose 5%/0.9% Ns 1000 Ml) 1,000 mls @ 100 mls/hr IV .Q10H [facility] Last Admin: 04/19/18 16:07 Dose: 100 mls/hr Vasopressin 40 units/ Dextrose 42 mls @ 1.26 mls/hr IV .Q24H [facility] Last Admin: 04/19/18 17:51 Dose: Not Given Insulin Aspart (Novolog) 0 unit SC Q6 [facility]; Protocol Last Admin: 04/19/18 17:51 Dose: Not Given Nystatin (Nystop Topical Powder) 1 applic TOP BID [facility] Last Admin: 04/19/18 18:11 Dose: 1 applic Pantoprazole Sodium (Protonix Inj) 40 mg IVP DAILY [facility] Last Admin: 04/19/18 09:50 Dose: 40 mg Silver Sulfadiazine (Silvadene 1% 20 Gm) 0 ea TOP BID [facility] Last Admin: 04/19/18 18:12 Dose: 1 applic - Labs Labs: 04/19/18 06:54 04/19/18 06:13 PT 19.3 SECONDS (9.7-12.2) H 04/18/18 06:37 INR 1.8 04/18/18 06:37 APTT 41 SECONDS (21-34) H 04/18/18 06:37 - Constitutional Appears: In Acute Distress - Head Exam Head Exam: ATRAUMATIC - Eye Exam Eye Exam: Normal appearance Pupil Exam: NORMAL ACCOMODATION - ENT Exam ENT Exam: Mucous Membranes Moist - Neck Exam Neck Exam: Full ROM - Respiratory Exam Respiratory Exam: Decreased Breath Sounds - Cardiovascular Exam Cardiovascular Exam: REGULAR RHYTHM - GI/Abdominal Exam GI & Abdominal Exam: Diminished Bowel Sounds - Exam Exam: NORMAL INSPECTION - Extremities Exam Extremities Exam: Pedal Edema - Neurological Exam Additional comments: sedated - Skin Skin Exam: Pallor Assessment and Plan - Assessment and Plan (Free Text) Assessment: resp failiur chf aneamia dm chest tube hypotensive fecal impaction Plan: will have ct abd
[2018-04-20] MEDS: (Novolog) Insulin Aspart, Recombinant 100 u/ml 10 ml vial SC SCH ×4 (00:15→18:11)
[2018-04-20] MEDS: Dextrose 5%/0.9% NS 1,000 ML IV SCH ×4 (00:30→21:00)
[2018-04-20] MEDS: Albuterol-Ipratrop 3 mg / 0.5 (3 ml) UD INH SCH ×4 (01:09→19:08)
[2018-04-20] MEDS: metroNIDAZOLE IV 500 mg/100 ml 500 MG/100 ML BAG IVPB SCH ×3 (02:50→18:10)
[2018-04-20] MEDS: Cefepime IV 1 gm in Dextrose 1 GM/50 ML BAG IVPB SCH ×2 (05:10→17:02)
[2018-04-20 05:37] LABS: ABG ALLEN TEST POS; ARTERIAL BLOOD GAS HCO3 25.3 mmol/L (21-28); ARTERIAL BLOOD GAS HEMOGLOBIN 7.4 g/dL (11.7-17.4); ARTERIAL BLOOD GAS O2 SAT 99.6 % (95-98); ARTERIAL BLOOD GAS PCO2 34 mm/Hg (35-45); ARTERIAL BLOOD GAS PH 7.46 (7.35-7.45); ARTERIAL BLOOD GAS PO2 125 mm/Hg (80-100); ARTERIAL BLOOD GAS TCO2 25.2 mmol/L (22-28)
[2018-04-20 06:38] LABS: BASO % 0.9 % (0.0-2.0); HEMOGLOBIN 7.4 g/dL (11.0-16.0); LYMPH # 0.2 K/uL (1.0-4.3); LYMPH % 7.4 % (20.0-40.0); MEAN CELL VOLUME 84.5 fL (81.0-99.0); MEAN CORPUSCULAR HEMOGLOBIN 27.1 pg (27.0-31.0); MEAN PLATELET VOLUME 11.4 fL (7.2-11.7); MONO # 0.1 K/uL (0.0-0.8); MONO % 4.6 % (0.0-10.0); NEUT # 1.8 K/uL (1.8-7.0); NEUT % 86.1 % (50.0-75.0); NRBC % 0.1 % (0.0-2.0); RBC 2.75 Mil/uL (3.80-5.20); RED CELL DISTRIBUTION WIDTH 25.1 % (11.5-14.5); WHITE BLOOD COUNT 2.1 K/uL (4.8-10.8)
[2018-04-20 06:50] LABS: PLATELET COUNT 12 K/uL (130-400)
[2018-04-20 06:51] LABS: INR 2.1; PROTHROMBIN TIME 23.5 SECONDS (9.7-12.2)
[2018-04-20 07:00] LABS: ALBUMIN 1.8 g/dL (3.5-5.0); CALCIUM 7.5 mg/dl (8.6-10.4)
[2018-04-20] MEDS: Propofol 10 mg/ml 1,000 MG/100 ML VIAL IV PRN (07:00)
--- NOTE | 2018-04-20 08:12 | RAD ---
Date of service: 04/20/2018 HISTORY: vented COMPARISON: Portable chest 04/18/2018. FINDINGS: LUNGS: Endotracheal and nasogastric tubes are not significantly changed in position as well as left central venous line. Midline right PICC again seen terminating at the proximal proximal right upper extremity. Left pleural drainage catheter unchanged in position as well. Increasing patchy opacities appreciated now at the right perihilar region as well as the right base with left base completely opacified as well. The findings reflect interval worsening at the right and interval change at the left in terms of likely mixed pneumonia and atelectasis. PLEURA: Underlying bilateral pleural effusions are not excluded bilaterally though mild at the left and [id number] the right. No pneumothorax bilaterally. CARDIOVASCULAR: Calcific atherosclerotic changes are seen related to the thoracic aorta. Cardiac size appears stable. No definite pulmonary vascular congestion. OSSEOUS STRUCTURES: No significant abnormalities. VISUALIZED UPPER ABDOMEN: Normal. OTHER FINDINGS: None. IMPRESSION: Increased airspace disease mid to inferior right lung zone, unchanged at the left base with likely mild left and [id number] right pleural effusion evident. No definitive pulmonary vascular congestion. Tubes and catheters as described above.
[2018-04-20 08:25] LABS: BANDS 2 % (0-2); BASOPHIL 1 % (0-2); LYMPHOCYTE 10 % (20-40); MONOCYTE 4 % (0-10); NEUTROPHIL 83 % (50-75); PLATELET ESTIMATE MARKEDLY DECREASED (NORMAL); TOTAL CELLS COUNTED 100
[2018-04-20 08:26] LABS: ANISOCYTOSIS SLIGHT; HYPOCHROMIC MODERATE; OVALOCYTES SLIGHT; POIKILOCYTOSIS SLIGHT; POLYCHROMIC SLIGHT
[2018-04-20 08:27] LABS: TARGET CELLS SLIGHT
[2018-04-20 08:28] LABS: BURR CELLS SLIGHT
[2018-04-20] MEDS: Fluconazole IV 100mg/50 ml NS 50 ML IVPB SCH (10:15)
[2018-04-20] MEDS: Silver Sulfadiazine 1% Cream (20 gm) TOP SCH ×2 (10:16→17:03)
[2018-04-20] MEDS: Bacitracin Ointment 30 GM TUBE TOP SCH ×2 (10:17→17:03)
[2018-04-20] MEDS: Vasopressin 40 UNITS in Dextrose 5% In Water 40 ML IV SCH (10:25)
--- NOTE | 2018-04-20 10:29 | CP.PCM.PN ---
Subjective - Date & Time of Evaluation Date of Evaluation: 04/20/18 Time of Evaluation: 10:26 - Subjective Subjective: Patient examined in bed, intubated, responsive to tactile stimuli only. Skin is pale , Hb 7.4. Wheeping edema to right arm. Severe edema to both hands and feet. BP 94/58, HR 87. Pressors on board. Prognosis seen as poor. Daughter at bed side who is POA. Objective - Vital Signs/Intake and Output Vital Signs (last 24 hours): Temp Pulse Resp BP Pulse Ox 98.6 F 87 19 94/58 L 100 04/20/18 08:00 04/20/18 09:00 04/20/18 09:00 04/20/18 09:01 04/20/18 09:00 Intake and Output: 04/20/18 04/20/18 06:59 18:59 Intake Total 1236.4 409.6 Output Total 151 Balance 1085.4 409.6 - Medications Medications: Current Medications Acetaminophen (Tylenol 325mg Tab) 650 mg PO Q6 PRN PRN Reason: Fever >100.4 F Last Admin: 04/02/18 04:36 Dose: 650 mg Albumin Human (Albumin Human 25% (12.5 Gm/50 Ml)) 50 gm IV Q8H [facility] Stop: 04/21/18 01:31 Albuterol/Ipratropium (Duoneb 3 Mg/0.5 Mg (3 Ml) Ud) 3 ml INH RQ6 [facility] Last Admin: 04/20/18 08:15 Dose: 3 ml Bacitracin (Bacitracin) 0 gm TOP BID [facility] Last Admin: 04/20/18 10:17 Dose: 1 applic Hydromorphone HCl (Dilaudid) 0.5 mg IVP Q6H PRN PRN Reason: Pain, moderate (4-7) Fluconazole (Diflucan Iv 100 Mg/50 Ml Ns) 50 mls @ 100 mls/hr IVPB DAILY [facility]; Protocol Last Admin: 04/20/18 10:15 Dose: 100 mls/hr Norepinephrine Bitartrate 4 mg (/ Dextrose) 254 mls @ 15.24 mls/hr IV .[id number] PRN; Protocol PRN Reason: TITRATE PER MD ORDER Last Titration: 04/19/18 04:00 Dose: 0 mcg/min, 0 mls/hr Metronidazole (Flagyl) 500 mg in 100 mls @ 100 mls/hr IVPB Q8H [facility]; Protocol Last Admin: 04/20/18 02:50 Dose: 100 mls/hr Cefepime HCl (Maxipime Iv 1 Gm Premix) 1 gm in 50 mls @ 100 mls/hr IVPB Q12H [facility]; Protocol Last Admin: 04/20/18 05:10 Dose: 100 mls/hr Propofol (Diprivan) 1,000 mg in 100 mls @ 3.001 mls/hr IV .Q24H PRN; Protocol PRN Reason: TITRATE PER MD ORDER Last Admin: 04/20/18 07:00 Dose: 3.33 mcg/kg/min, 2 mls/hr Dextrose/Sodium Chloride (Dextrose 5%/0.9% Ns 1000 Ml) 1,000 mls @ 100 mls/hr IV .Q10H [facility] Last Admin: 04/20/18 06:55 Dose: 100 mls/hr Vasopressin 40 units/ Dextrose 42 mls @ 1.26 mls/hr IV .Q24H [facility] Last Admin: 04/20/18 10:25 Dose: Not Given Potassium Chloride (Potassium Chloride 20 Meq/100 Ml) 20 meq in 100 mls @ 50 mls/hr IVPB Q1H [facility] Stop: 04/20/18 12:29 Last Admin: 04/20/18 10:22 Dose: 50 mls/hr Insulin Aspart (Novolog) 0 unit SC Q6 [facility]; Protocol Last Admin: 04/20/18 06:45 Dose: 1 unit Nystatin (Nystop Topical Powder) 1 applic TOP BID [facility] Last Admin: 04/20/18 10:17 Dose: 1 applic Pantoprazole Sodium (Protonix Inj) 40 mg IVP DAILY [facility] Last Admin: 04/20/18 10:24 Dose: 40 mg Silver Sulfadiazine (Silvadene 1% 20 Gm) 0 ea TOP BID [facility] Last Admin: 04/20/18 10:16 Dose: 1 applic - Labs Labs: 04/20/18 06:32 04/20/18 06:32 PT 23.5 SECONDS (9.7-12.2) H 04/20/18 06:32 INR 2.1 04/20/18 06:32 APTT 52 SECONDS (21-34) H D 04/20/18 06:32 - Constitutional Appears: In Acute Distress, Chronically Ill - Head Exam Head Exam: ATRAUMATIC, NORMAL INSPECTION, NORMOCEPHALIC - Eye Exam Eye Exam: EOMI, Normal appearance, PERRL Pupil Exam: NORMAL ACCOMODATION, PERRL - ENT Exam ENT Exam: Mucous Membranes Dry Additional comments: Ett - Neck Exam Neck Exam: Normal Inspection - Respiratory Exam Respiratory Exam: Decreased Breath Sounds Additional comments: On MV - Cardiovascular Exam Cardiovascular Exam: Tachycardia - GI/Abdominal Exam GI & Abdominal Exam: Hypoactive Bowel Sounds - Rectal Exam Rectal Exam: Deferred - Extremities Exam Additional comments: On MV - Back Exam Back Exam: NORMAL INSPECTION - Neurological Exam Neurological Exam: Motor Sensory Deficit Neuro motor strength exam: Left Upper Extremity: 0, Right Upper Extremity: 0, Left Lower Extremity: 0, Right Lower Extremity: 0 - Psychiatric Exam Psychiatric exam: Flat Affect - Skin Skin Exam: Pallor Assessment and Plan - Assessment and Plan (Free Text) Plan: Palliative care progress note Patient examined in bed. Daughter at bed side. Patient is intubated. Patient looks critically ill. Per Medical team this morning, prognosis is very poor and patient will not tolerate extubation and will not be able to sustain normal breathing without MV support. WBC 2.0, Hb 7.4, Platelt 12, Alb 1.8, T Jua Nmanuel 1.6. BP 94/58, two pressors on Board. Diflucan, Flagyl and Vanco IV on board. Patient was originally made DNR/DNI and Hospice eval was called. Per patient's daughter, who is a POA, her niece made pressure on her when patient's condition worsened, and the daughter changed existing Code status to FULL CODE. I spoke to daughter this morning. She admitted to me that her brother was giving her a hard time over the phone making her feeling guilty for every decision she made regarding her mother's care. Regardless of her being POA , she wanted him to be involved in decision making process and gave him every opportunity to come and visit his mother. However, son never came to visit his mother. The daughter admitted being sad and embarrassed for her brother's behavior. After reviewing present patient's clinical condition, daughter came to und erstand the severity of her mother's condition and to realize the unrealistic expectations of recovery. I discussed with her options of care' removal of life support vs tracheostomy and PEG. The daughter was adamant against trach and PEG and was to give a second thought regarding life support removal. The daughter also felt so lonely and wished she had somebody with her during the process of terminal extubation. I offered my presence. The daughter will come with final decision after talks to Doctor Amador one more time. She needs reassurance for appropriateness of her decisions . Impression * Critically ill patient due to multi organ failure * Thrombocytopenia * Anemia * Whipping edema * Daughter does not want her mother to suffer any more and is against trach or PEG * Daughter wished to involve her brothet in mother's care and that is why she had changed her decisions about goals of care. Since her brother did not want to get involved with care, daughter is considering the promotion of natural and life support removal * Daughter is in psychosocial distress * In the light of patient's clinical presentation and very poor prognosis, I would consider removal of life support and promotion of natural * Offer support to patient's daughter * Pastoral care for Spiritual support I will fallow with daughter during today for possible terminal extubation today or tomorrow. Advance planing time 50 min
--- NOTE | 2018-04-20 11:01 | CP.PCM.PN ---
Subjective - Date & Time of Evaluation Date of Evaluation: 04/20/18 Time of Evaluation: 10:58 - Subjective Subjective: pt condition is worse case discused with pt daughter and dr thompson my d/c ventilator and comfotcare Objective - Vital Signs/Intake and Output Vital Signs (last 24 hours): Temp Pulse Resp BP Pulse Ox 98.6 F 87 19 94/58 L 100 04/20/18 08:00 04/20/18 09:00 04/20/18 09:00 04/20/18 09:01 04/20/18 09:00 Intake and Output: 04/20/18 04/20/18 06:59 18:59 Intake Total 1236.4 409.6 Output Total 151 Balance 1085.4 409.6 - Medications Medications: Current Medications Acetaminophen (Tylenol 325mg Tab) 650 mg PO Q6 PRN PRN Reason: Fever >100.4 F Last Admin: 04/02/18 04:36 Dose: 650 mg Albumin Human (Albumin Human 25% (12.5 Gm/50 Ml)) 50 gm IV Q8H [facility] Stop: 04/21/18 01:31 Albuterol/Ipratropium (Duoneb 3 Mg/0.5 Mg (3 Ml) Ud) 3 ml INH RQ6 [facility] Last Admin: 04/20/18 08:15 Dose: 3 ml Bacitracin (Bacitracin) 0 gm TOP BID [facility] Last Admin: 04/20/18 10:17 Dose: 1 applic Hydromorphone HCl (Dilaudid) 0.5 mg IVP Q6H PRN PRN Reason: Pain, moderate (4-7) Fluconazole (Diflucan Iv 100 Mg/50 Ml Ns) 50 mls @ 100 mls/hr IVPB DAILY [facility]; Protocol Last Admin: 04/20/18 10:15 Dose: 100 mls/hr Norepinephrine Bitartrate 4 mg (/ Dextrose) 254 mls @ 15.24 mls/hr IV .[id number] PRN; Protocol PRN Reason: TITRATE PER MD ORDER Last Titration: 04/19/18 04:00 Dose: 0 mcg/min, 0 mls/hr Metronidazole (Flagyl) 500 mg in 100 mls @ 100 mls/hr IVPB Q8H [facility]; Protocol Last Admin: 04/20/18 10:58 Dose: 100 mls/hr Cefepime HCl (Maxipime Iv 1 Gm Premix) 1 gm in 50 mls @ 100 mls/hr IVPB Q12H [facility]; Protocol Last Admin: 04/20/18 05:10 Dose: 100 mls/hr Propofol (Diprivan) 1,000 mg in 100 mls @ 3.001 mls/hr IV .Q24H PRN; Protocol PRN Reason: TITRATE PER MD ORDER Last Admin: 04/20/18 07:00 Dose: 3.33 mcg/kg/min, 2 mls/hr Dextrose/Sodium Chloride (Dextrose 5%/0.9% Ns 1000 Ml) 1,000 mls @ 100 mls/hr IV .Q10H [facility] Last Admin: 04/20/18 06:55 Dose: 100 mls/hr Vasopressin 40 units/ Dextrose 42 mls @ 1.26 mls/hr IV .Q24H [facility] Last Admin: 04/20/18 10:25 Dose: Not Given Potassium Chloride (Potassium Chloride 20 Meq/100 Ml) 20 meq in 100 mls @ 50 mls/hr IVPB Q1H [facility] Stop: 04/20/18 12:29 Last Admin: 04/20/18 10:22 Dose: 50 mls/hr Insulin Aspart (Novolog) 0 unit SC Q6 [facility]; Protocol Last Admin: 04/20/18 06:45 Dose: 1 unit Nystatin (Nystop Topical Powder) 1 applic TOP BID [facility] Last Admin: 04/20/18 10:17 Dose: 1 applic Pantoprazole Sodium (Protonix Inj) 40 mg IVP DAILY [facility] Last Admin: 04/20/18 10:24 Dose: 40 mg Silver Sulfadiazine (Silvadene 1% 20 Gm) 0 ea TOP BID [facility] Last Admin: 04/20/18 10:16 Dose: 1 applic - Labs Labs: 04/20/18 06:32 04/20/18 06:32 PT 23.5 SECONDS (9.7-12.2) H 04/20/18 06:32 INR 2.1 04/20/18 06:32 APTT 52 SECONDS (21-34) H D 04/20/18 06:32 - Constitutional Appears: In Acute Distress - Head Exam Head Exam: ATRAUMATIC - Eye Exam Eye Exam: Conjunctival injection - ENT Exam ENT Exam: Normal Exam - Respiratory Exam Respiratory Exam: Decreased Breath Sounds - Cardiovascular Exam Cardiovascular Exam: REGULAR RHYTHM - GI/Abdominal Exam GI & Abdominal Exam: Soft - Psychiatric Exam Additional comments: sedated - Skin Skin Exam: Pallor, Rash Assessment and Plan - Assessment and Plan (Free Text) Assessment: mutiorgan failire Plan: as per her daughter wayne
--- NOTE | 2018-04-20 11:11 | CP.PCM.PN ---
<Nena Ellington - Last Filed: 04/20/18 11:05> Subjective - Date & Time of Evaluation Date of Evaluation: 04/20/18 Time of Evaluation: 07:00 - Subjective Subjective: Surgery: Dr. Gordon Pt seen and examined. No acute overnight events. Continues to be intubated and sedated in the ICU. Clinically pt doing about the same, minimal pressor requirement. Interval increase seen in abdominal fluid collection/air without extravasation of contrast. No fevers recorded overnight. Objective - Vital Signs/Intake and Output Vital Signs (last 24 hours): Temp Pulse Resp BP Pulse Ox 98.6 F 87 19 94/58 L 100 04/20/18 08:00 04/20/18 09:00 04/20/18 09:00 04/20/18 09:01 04/20/18 09:00 Intake and Output: 04/20/18 04/20/18 06:59 18:59 Intake Total 1236.4 409.6 Output Total 151 Balance 1085.4 409.6 - Medications Medications: Current Medications Acetaminophen (Tylenol 325mg Tab) 650 mg PO Q6 PRN PRN Reason: Fever >100.4 F Last Admin: 04/02/18 04:36 Dose: 650 mg Albumin Human (Albumin Human 25% (12.5 Gm/50 Ml)) 50 gm IV Q8H [facility] Stop: 04/21/18 01:31 Albuterol/Ipratropium (Duoneb 3 Mg/0.5 Mg (3 Ml) Ud) 3 ml INH RQ6 [facility] Last Admin: 04/20/18 08:15 Dose: 3 ml Bacitracin (Bacitracin) 0 gm TOP BID [facility] Last Admin: 04/20/18 10:17 Dose: 1 applic Hydromorphone HCl (Dilaudid) 0.5 mg IVP Q6H PRN PRN Reason: Pain, moderate (4-7) Fluconazole (Diflucan Iv 100 Mg/50 Ml Ns) 50 mls @ 100 mls/hr IVPB DAILY [facility]; Protocol Last Admin: 04/20/18 10:15 Dose: 100 mls/hr Norepinephrine Bitartrate 4 mg (/ Dextrose) 254 mls @ 15.24 mls/hr IV .[id number] PRN; Protocol PRN Reason: TITRATE PER MD ORDER Last Titration: 04/19/18 04:00 Dose: 0 mcg/min, 0 mls/hr Metronidazole (Flagyl) 500 mg in 100 mls @ 100 mls/hr IVPB Q8H [facility]; Protocol Last Admin: 04/20/18 10:58 Dose: 100 mls/hr Cefepime HCl (Maxipime Iv 1 Gm Premix) 1 gm in 50 mls @ 100 mls/hr IVPB Q12H [facility]; Protocol Last Admin: 04/20/18 05:10 Dose: 100 mls/hr Propofol (Diprivan) 1,000 mg in 100 mls @ 3.001 mls/hr IV .Q24H PRN; Protocol PRN Reason: TITRATE PER MD ORDER Last Admin: 04/20/18 07:00 Dose: 3.33 mcg/kg/min, 2 mls/hr Dextrose/Sodium Chloride (Dextrose 5%/0.9% Ns 1000 Ml) 1,000 mls @ 100 mls/hr IV .Q10H [facility] Last Admin: 04/20/18 06:55 Dose: 100 mls/hr Vasopressin 40 units/ Dextrose 42 mls @ 1.26 mls/hr IV .Q24H [facility] Last Admin: 04/20/18 10:25 Dose: Not Given Potassium Chloride (Potassium Chloride 20 Meq/100 Ml) 20 meq in 100 mls @ 50 mls/hr IVPB Q1H [facility] Stop: 04/20/18 12:29 Last Admin: 04/20/18 10:58 Dose: 50 mls/hr Insulin Aspart (Novolog) 0 unit SC Q6 [facility]; Protocol Last Admin: 04/20/18 06:45 Dose: 1 unit Nystatin (Nystop Topical Powder) 1 applic TOP BID [facility] Last Admin: 04/20/18 10:17 Dose: 1 applic Pantoprazole Sodium (Protonix Inj) 40 mg IVP DAILY [facility] Last Admin: 04/20/18 10:24 Dose: 40 mg Silver Sulfadiazine (Silvadene 1% 20 Gm) 0 ea TOP BID [facility] Last Admin: 04/20/18 10:16 Dose: 1 applic - Labs Labs: 04/20/18 06:32 04/20/18 06:32 PT 23.5 SECONDS (9.7-12.2) H 04/20/18 06:32 INR 2.1 04/20/18 06:32 APTT 52 SECONDS (21-34) H D 04/20/18 06:32 - Constitutional Appears: No Acute Distress - ENT Exam Additional comments: ETT in place - Cardiovascular Exam Cardiovascular Exam: RRR - GI/Abdominal Exam GI & Abdominal Exam: Soft. absent: Distended - Skin Skin Exam: Dry, Warm Assessment and Plan - Assessment and Plan (Free Text) Assessment: 82F with perforated viscus Plan: - cont conservative management - per discussion with pt's daughter & palliative care; possible terminal extubation today or tomorrow - ok to start trickle feeds via OGT - cont ABX - d/w Dr. Heidi Ellington <Milad Gordon B - Last Filed: 04/22/18 09:01> Objective - Vital Signs/Intake and Output Vital Signs (last 24 hours): Temp Pulse Resp BP Pulse Ox 97 F L 47 L 11 L 63/30 L 97 04/21/18 20:00 04/21/18 21:01 04/21/18 21:01 04/21/18 21:01 04/21/18 17:00 Intake and Output: 04/22/18 04/22/18 06:59 18:59 Intake Total 15 Balance 15 - Labs Labs: 04/21/18 05:47 04/21/18 05:47 PT 23.5 SECONDS (9.7-12.2) H 04/20/18 06:32 INR 2.1 04/20/18 06:32 APTT 52 SECONDS (21-34) H D 04/20/18 06:32 Attending/Attestation - Attestation I have personally seen and examined this patient.: Yes I have fully participated in the care of the patient.: Yes I have reviewed all pertinent clinical information, including history, physical exam and plan: Yes Notes (Text): Pt was seen and examined at bedside Comfort care c.w current mx Plan d.w family in detail
[2018-04-20] MEDS: Albumin Human 25% (12.5 gm/50 ml) IV SCH ×2 (13:10→20:07)
--- NOTE | 2018-04-20 15:43 | CP.CCUPN ---
<Giuseppe Gary - Last Filed: 04/20/18 15:43> CCU Subjective - Physician Review Subjective (Free Text): CC Progress note for Dr Amador service Patient s/e at bedside. Patient is currently intubated. No acute changes overnight as per nurse. ROS unttainable due to patient's condition. Critical Care Time Spent (in minutes): 45 CCU Objective - Vital Signs / Intake & Output Vital Signs (Last 4 hours): Vital Signs Temp Pulse Resp BP Pulse Ox 04/20/18 15:02 103 H 19 91 L 04/20/18 15:00 102 H 19 92/64 L 100 04/20/18 14:00 101 H 21 103/62 100 04/20/18 13:01 103/62 04/20/18 13:00 93 H 21 103/62 100 04/20/18 12:02 90 26 H 04/20/18 12:00 98.4 F 91 H 20 94/43 L 100 Intake and Output (Last 8hrs): Intake & Output 04/20/18 04/20/18 04/20/18 06:59 14:59 22:59 Intake Total 807.6 925.6 103.2 Output Total 151 Balance 656.6 925.6 103.2 Weight 235 lb 9.6 oz Intake: IV 100 Intake, IV Amount 807.6 825.6 103.2 Left Medial Port Internal 48 16 2 Jugular Left Proximal Port 9.6 9.6 1.2 Left Proximal Port 750 800 100 Internal Jugular Output: Urine 150 Urethral (Dover) 150 Stool 1 Other: # Bowel Movements 1 - Physical Exam Head: Positive for: Atraumatic, Normocephalic, Other (central line in left IJ) Pupils: Positive for: PERRL Extroacular Muscles: Positive for: EOMI Conjunctiva: Positive for: Normal Mouth: Positive for: Dry, Other (ET tube in place ) Neck: Negative for: JVD, Lymphadenopathy Respiratory/Chest: Positive for: Good Air Exchange, Decreased Breath Sounds. Negative for: Accessory Muscle Use, Wheezes, Tachypneic Cardiovascular: Positive for: Regular Rate and Rhythm, Normal S1, S2. Negative for: Murmurs, Irregular Rhythm Abdomen: Positive for: Tenderness, Normal Bowel Sounds, Other (umbilical hernia). Negative for: Distention, Peritoneal Signs, Rebound, Guarding Genitourinary/Pelvic Exam: Positive for: Other (Dover in place for strict Is/Os) Upper Extremity: Positive for: Normal Inspection, Edema. Negative for: Cyanosis Lower Extremity: Positive for: Normal Inspection, Edema Neurological: Positive for: Other (sedated). Negative for: GCS=15 Skin: Positive for: Dry, Normal Color, Other (chest tube in posterior left back, right foot ulcer, and sacral unstageable ulcer). Negative for: Diaphoretic Psychiatric: Positive for: Alert, Oriented x 3 - Medications Active Medications: Active Medications Generic Name Dose Route Start Last Admin Trade Name Freq PRN Reason Stop Dose Admin Acetaminophen 650 mg 03/23/18 15:59 04/02/18 04:36 Tylenol 325mg Tab PO 650 mg Q6 PRN Administration Fever >100.4 F Albumin Human 50 gm 04/20/18 13:00 04/20/18 13:10 Albumin Human 25% (12.5 Gm/50 Ml) IV 04/21/18 05:01 50 gm Q8H KEV Administration Albuterol/Ipratropium 3 ml 04/02/18 14:00 04/20/18 13:22 Duoneb 3 Mg/0.5 Mg (3 Ml) Ud INH 3 ml RQ6 KEV Administration Bacitracin 0 gm 04/01/18 18:00 04/20/18 10:17 Bacitracin TOP 1 applic BID KEV Administration Hydromorphone HCl 0.5 mg 04/17/18 08:22 Dilaudid IVP Q6H PRN Pain, moderate (4-7) Fluconazole 50 mls @ 100 mls/hr 03/27/18 10:00 04/20/18 10:15 Diflucan Iv 100 Mg/50 Ml Ns IVPB 100 mls/hr DAILY KEV Administration Protocol Norepinephrine Bitartrate 4 mg 254 mls @ 15.24 mls/hr 04/12/18 18:52 04/19/18 04:00 / Dextrose IV 0 mcg/min .[id number] PRN 0 mls/hr TITRATE PER MD ORDER Titration Protocol 4 MCG/MIN Metronidazole 500 mg in 100 mls @ 100 mls/hr 04/16/18 11:00 04/20/18 10:58 Flagyl IVPB 100 mls/hr Q8H KEV Administration Protocol Cefepime HCl 1 gm in 50 mls @ 100 mls/hr 04/17/18 06:00 04/20/18 05:10 Maxipime Iv 1 Gm Premix IVPB 100 mls/hr Q12H KEV Administration Protocol Propofol 1,000 mg in 100 mls @ 3.001 mls/hr 04/17/18 08:21 04/20/18 07:00 Diprivan IV 3.33 mcg/kg/min .Q24H PRN 2 mls/hr TITRATE PER MD ORDER Administration Protocol 5 MCG/KG/MIN Dextrose/Sodium Chloride 1,000 mls @ 100 mls/hr 04/18/18 08:45 04/20/18 13:19 Dextrose 5%/0.9% Ns 1000 Ml IV Not Given .Q10H KEV Vasopressin 40 units/ Dextrose 42 mls @ 1.26 mls/hr 04/18/18 09:00 04/20/18 10:25 IV Not Given .Q24H KEV 0.02 UNITS/MIN Insulin Aspart 0 unit 04/16/18 12:00 04/20/18 06:45 Novolog SC 1 unit Q6 KEV Administration Protocol Nystatin 1 applic 03/23/18 18:00 04/20/18 10:17 Nystop Topical Powder TOP 1 applic BID KEV Administration Pantoprazole Sodium 40 mg 04/16/18 12:00 04/20/18 10:24 Protonix Inj IVP 40 mg DAILY KEV Administration Silver Sulfadiazine 0 ea 03/26/18 10:00 04/20/18 10:16 Silvadene 1% 20 Gm TOP 1 applic BID KEV Administration - Patient Studies Lab Studies: Lab Studies 04/20/18 04/20/18 04/20/18 Range/Units 11:46 06:32 06:32 WBC (4.8-10.8) K/uL RBC (3.80-5.20) Mil/uL Hgb (11.0-16.0) g/dL Hct (34.0-47.0) % MCV (81.0-99.0) fL MCH (27.0-31.0) pg MCHC (33.0-37.0) g/dL RDW (11.5-14.5) % Plt Count (130-400) K/uL MPV (7.2-11.7) fL Neut % (Auto) (50.0-75.0) % Lymph % (Auto) (20.0-40.0) % Holt % (Auto) (0.0-10.0) % Eos % (Auto) (0.0-4.0) % Baso % (Auto) (0.0-2.0) % Neut # (Auto) (1.8-7.0) K/uL Lymph # (Auto) (1.0-4.3) K/uL Holt # (Auto) (0.0-0.8) K/uL Eos # (Auto) (0.0-0.7) K/uL Baso # (Auto) (0.0-0.2) K/uL Neutrophils % (Manual) (50-75) % Band Neutrophils % (0-2) % Lymphocytes % (Manual) (20-40) % Monocytes % (Manual) (0-10) % Basophils % (Manual) (0-2) % Platelet Estimate (NORMAL) Polychromasia Hypochromasia (manual) Poikilocytosis (manual Anisocytosis (manual) Target Cells Ovalocytes Shalnii Cells PT 23.5 H (9.7-12.2) SECONDS INR 2.1 APTT 52 H D (21-34) SECONDS Puncture Site pCO2 (35-45) mm/Hg pO2 (80-100) mm/Hg HCO3 (21-28) mmol/L ABG pH (7.35-7.45) ABG Total CO2 (22-28) mmol/L ABG O2 Saturation (95-98) % ABG Base Excess (-2.0-3.0) mmol/L ABG Hemoglobin (11.7-17.4) g/dL ABG Carboxyhemoglobin (0.5-1.5) % POC ABG HHb (Measured) (0.0-5.0) % ABG Methemoglobin (0.0-3.0) % Pawel Test A-a O2 Difference mm/Hg Respiratory Index Hgb O2 Saturation (95.0-98.0) % Vent Mode Mechanical Rate FiO2 % Tidal Volume Sodium 133 (132-148) mmol/L Potassium 3.0 L (3.6-5.2) mmol/L Chloride 98 (98-107) mmol/L Carbon Dioxide 23 (22-30) mmol/L Anion Gap 14 (10-20) BUN 73 H (7-17) mg/dL Creatinine 2.0 H (0.7-1.2) mg/dL Est GFR ( Amer) 29 Est GFR (Non-Af Amer) 24 POC Glucose (mg/dL) 121 H (65-110) mg/dL Random Glucose 148 H (65-105) mg/dL Calcium 7.5 L (8.6-10.4) mg/dl Phosphorus 3.5 (2.5-4.5) mg/dL Magnesium 1.9 (1.6-2.3) mg/dL Total Bilirubin 1.6 H (0.2-1.3) mg/dL AST 6 L D (14-36) U/L ALT 25 (9-52) U/L Alkaline Phosphatase 35 L D (38-126) U/L Total Protein 3.7 L (6.3-8.3) g/dL Albumin 1.8 L (3.5-5.0) g/dL Globulin 1.9 L (2.2-3.9) gm/dL Albumin/Globulin Ratio 1.0 (1.0-2.1) Heparin-induced Plt Ab (Negative) Hep-Induced Plt Ab Cmmt 04/20/18 04/20/18 04/20/18 Range/Units 06:32 06:03 05:16 WBC 2.1 L (4.8-10.8) K/uL RBC 2.75 L (3.80-5.20) Mil/uL Hgb 7.4 L (11.0-16.0) g/dL Hct 23.2 L (34.0-47.0) % MCV 84.5 (81.0-99.0) fL MCH 27.1 (27.0-31.0) pg MCHC 32.0 L (33.0-37.0) g/dL RDW 25.1 H (11.5-14.5) % Plt Count 12 L* D (130-400) K/uL MPV 11.4 (7.2-11.7) fL Neut % (Auto) 86.1 H (50.0-75.0) % Lymph % (Auto) 7.4 L (20.0-40.0) % Holt % (Auto) 4.6 (0.0-10.0) % Eos % (Auto) 1.0 (0.0-4.0) % Baso % (Auto) 0.9 (0.0-2.0) % Neut # (Auto) 1.8 (1.8-7.0) K/uL Lymph # (Auto) 0.2 L (1.0-4.3) K/uL Holt # (Auto) 0.1 (0.0-0.8) K/uL Eos # (Auto) 0.0 (0.0-0.7) K/uL Baso # (Auto) 0.0 (0.0-0.2) K/uL Neutrophils % (Manual) 83 H (50-75) % Band Neutrophils % 2 (0-2) % Lymphocytes % (Manual) 10 L (20-40) % Monocytes % (Manual) 4 (0-10) % Basophils % (Manual) 1 (0-2) % Platelet Estimate Markedly decreased L (NORMAL) Polychromasia Slight Hypochromasia (manual) Moderate Poikilocytosis (manual Slight Anisocytosis (manual) Slight Target Cells Slight Ovalocytes Slight Wesley Cells Slight PT (9.7-12.2) SECONDS INR APTT (21-34) SECONDS Puncture Site L rad pCO2 34 L (35-45) mm/Hg pO2 125 H (80-100) mm/Hg HCO3 25.3 (21-28) mmol/L ABG pH 7.46 H (7.35-7.45) ABG Total CO2 25.2 (22-28) mmol/L ABG O2 Saturation 99.6 H (95-98) % ABG Base Excess 0.4 (-2.0-3.0) mmol/L ABG Hemoglobin 7.4 L (11.7-17.4) g/dL ABG Carboxyhemoglobin 2.0 H (0.5-1.5) % POC ABG HHb (Measured) 0.4 (0.0-5.0) % ABG Methemoglobin 0.3 (0.0-3.0) % Pawel Test Pos A-a O2 Difference 189.0 mm/Hg Respiratory Index 1.5 Hgb O2 Saturation 97.3 (95.0-98.0) % Vent Mode Prvc Mechanical Rate 18 FiO2 50.0 % Tidal Volume 470 Sodium (132-148) mmol/L Potassium (3.6-5.2) mmol/L Chloride (98-107) mmol/L Carbon Dioxide (22-30) mmol/L Anion Gap (10-20) BUN (7-17) mg/dL Creatinine (0.7-1.2) mg/dL Est GFR ( Amer) Est GFR (Non-Af Amer) POC Glucose (mg/dL) 175 H (65-110) mg/dL Random Glucose (65-105) mg/dL Calcium (8.6-10.4) mg/dl Phosphorus (2.5-4.5) mg/dL Magnesium (1.6-2.3) mg/dL Total Bilirubin (0.2-1.3) mg/dL AST (14-36) U/L ALT (9-52) U/L Alkaline Phosphatase (38-126) U/L Total Protein (6.3-8.3) g/dL Albumin (3.5-5.0) g/dL Globulin (2.2-3.9) gm/dL Albumin/Globulin Ratio (1.0-2.1) Heparin-induced Plt Ab (Negative) Hep-Induced Plt Ab Cmmt 04/20/18 04/19/18 04/18/18 Range/Units 00:02 18:37 11:35 WBC (4.8-10.8) K/uL RBC (3.80-5.20) Mil/uL Hgb (11.0-16.0) g/dL Hct (34.0-47.0) % MCV (81.0-99.0) fL MCH (27.0-31.0) pg MCHC (33.0-37.0) g/dL RDW (11.5-14.5) % Plt Count (130-400) K/uL MPV (7.2-11.7) fL Neut % (Auto) (50.0-75.0) % Lymph % (Auto) (20.0-40.0) % Holt % (Auto) (0.0-10.0) % Eos % (Auto) (0.0-4.0) % Baso % (Auto) (0.0-2.0) % Neut # (Auto) (1.8-7.0) K/uL Lymph # (Auto) (1.0-4.3) K/uL Holt # (Auto) (0.0-0.8) K/uL Eos # (Auto) (0.0-0.7) K/uL Baso # (Auto) (0.0-0.2) K/uL Neutrophils % (Manual) (50-75) % Band Neutrophils % (0-2) % Lymphocytes % (Manual) (20-40) % Monocytes % (Manual) (0-10) % Basophils % (Manual) (0-2) % Platelet Estimate (NORMAL) Polychromasia Hypochromasia (manual) Poikilocytosis (manual Anisocytosis (manual) Target Cells Ovalocytes Wesley Cells PT (9.7-12.2) SECONDS INR APTT (21-34) SECONDS Puncture Site pCO2 (35-45) mm/Hg pO2 (80-100) mm/Hg HCO3 (21-28) mmol/L ABG pH (7.35-7.45) ABG Total CO2 (22-28) mmol/L ABG O2 Saturation (95-98) % ABG Base Excess (-2.0-3.0) mmol/L ABG Hemoglobin (11.7-17.4) g/dL ABG Carboxyhemoglobin (0.5-1.5) % POC ABG HHb (Measured) (0.0-5.0) % ABG Methemoglobin (0.0-3.0) % Pawel Test A-a O2 Difference mm/Hg Respiratory Index Hgb O2 Saturation (95.0-98.0) % Vent Mode Mechanical Rate FiO2 % Tidal Volume Sodium (132-148) mmol/L Potassium (3.6-5.2) mmol/L Chloride (98-107) mmol/L Carbon Dioxide (22-30) mmol/L Anion Gap (10-20) BUN (7-17) mg/dL Creatinine (0.7-1.2) mg/dL Est GFR ( Amer) Est GFR (Non-Af Amer) POC Glucose (mg/dL) 197 H 214 H (65-110) mg/dL Random Glucose (65-105) mg/dL Calcium (8.6-10.4) mg/dl Phosphorus (2.5-4.5) mg/dL Magnesium (1.6-2.3) mg/dL Total Bilirubin (0.2-1.3) mg/dL AST (14-36) U/L ALT (9-52) U/L Alkaline Phosphatase (38-126) U/L Total Protein (6.3-8.3) g/dL Albumin (3.5-5.0) g/dL Globulin (2.2-3.9) gm/dL Albumin/Globulin Ratio (1.0-2.1) Heparin-induced Plt Ab Negative (Negative) Hep-Induced Plt Ab Cmmt 0.117 Laboratory Results - last 24 hr 04/18/18 04/19/18 04/20/18 11:35 18:37 00:02 WBC RBC Hgb Hct MCV MCH MCHC RDW Plt Count MPV Neut % (Auto) Lymph % (Auto) Holt % (Auto) Eos % (Auto) Baso % (Auto) Neut # (Auto) Lymph # (Auto) Holt # (Auto) Eos # (Auto) Baso # (Auto) Neutrophils % (Manual) Band Neutrophils % Lymphocytes % (Manual) Monocytes % (Manual) Basophils % (Manual) Platelet Estimate Polychromasia Hypochromasia (manual) Poikilocytosis (manual Anisocytosis (manual) Target Cells Ovalocytes Wesley Cells PT INR APTT Puncture Site pCO2 pO2 HCO3 ABG pH ABG Total CO2 ABG O2 Saturation ABG Base Excess ABG Hemoglobin ABG Carboxyhemoglobin POC ABG HHb (Measured) ABG Methemoglobin Pawel Test A-a O2 Difference Respiratory Index Hgb O2 Saturation Vent Mode Mechanical Rate FiO2 Tidal Volume Sodium Potassium Chloride Carbon Dioxide Anion Gap BUN Creatinine Est GFR ( Amer) Est GFR (Non-Af Amer) POC Glucose (mg/dL) 214 H 197 H Random Glucose Calcium Phosphorus Magnesium Total Bilirubin AST ALT Alkaline Phosphatase Total Protein Albumin Globulin Albumin/Globulin Ratio Heparin-induced Plt Ab Negative Hep-Induced Plt Ab Cmmt 0.117 04/20/18 04/20/18 04/20/18 05:16 06:03 06:32 WBC 2.1 L RBC 2.75 L Hgb 7.4 L Hct 23.2 L MCV 84.5 MCH 27.1 MCHC 32.0 L RDW 25.1 H Plt Count 12 L* D MPV 11.4 Neut % (Auto) 86.1 H Lymph % (Auto) 7.4 L Holt % (Auto) 4.6 Eos % (Auto) 1.0 Baso % (Auto) 0.9 Neut # (Auto) 1.8 Lymph # (Auto) 0.2 L Holt # (Auto) 0.1 Eos # (Auto) 0.0 Baso # (Auto) 0.0 Neutrophils % (Manual) 83 H Band Neutrophils % 2 Lymphocytes % (Manual) 10 L Monocytes % (Manual) 4 Basophils % (Manual) 1 Platelet Estimate Markedly decreased L Polychromasia Slight Hypochromasia (manual) Moderate Poikilocytosis (manual Slight Anisocytosis (manual) Slight Target Cells Slight Ovalocytes Slight Shalini Cells Slight PT INR APTT Puncture Site L rad pCO2 34 L pO2 125 H HCO3 25.3 ABG pH 7.46 H ABG Total CO2 25.2 ABG O2 Saturation 99.6 H ABG Base Excess 0.4 ABG Hemoglobin 7.4 L ABG Carboxyhemoglobin 2.0 H POC ABG HHb (Measured) 0.4 ABG Methemoglobin 0.3 Pawel Test Pos A-a O2 Difference 189.0 Respiratory Index 1.5 Hgb O2 Saturation 97.3 Vent Mode Prvc Mechanical Rate 18 FiO2 50.0 Tidal Volume 470 Sodium Potassium Chloride Carbon Dioxide Anion Gap BUN Creatinine Est GFR ( Amer) Est GFR (Non-Af Amer) POC Glucose (mg/dL) 175 H Random Glucose Calcium Phosphorus Magnesium Total Bilirubin AST ALT Alkaline Phosphatase Total Protein Albumin Globulin Albumin/Globulin Ratio Heparin-induced Plt Ab Hep-Induced Plt Ab Cmmt 04/20/18 04/20/18 04/20/18 06:32 06:32 11:46 WBC RBC Hgb Hct MCV MCH MCHC RDW Plt Count MPV Neut % (Auto) Lymph % (Auto) Holt % (Auto) Eos % (Auto) Baso % (Auto) Neut # (Auto) Lymph # (Auto) Holt # (Auto) Eos # (Auto) Baso # (Auto) Neutrophils % (Manual) Band Neutrophils % Lymphocytes % (Manual) Monocytes % (Manual) Basophils % (Manual) Platelet Estimate Polychromasia Hypochromasia (manual) Poikilocytosis (manual Anisocytosis (manual) Target Cells Ovalocytes Wesley Cells PT 23.5 H INR 2.1 APTT 52 H D Puncture Site pCO2 pO2 HCO3 ABG pH ABG Total CO2 ABG O2 Saturation ABG Base Excess ABG Hemoglobin ABG Carboxyhemoglobin POC ABG HHb (Measured) ABG Methemoglobin Pawel Test A-a O2 Difference Respiratory Index Hgb O2 Saturation Vent Mode Mechanical Rate FiO2 Tidal Volume Sodium 133 Potassium 3.0 L Chloride 98 Carbon Dioxide 23 Anion Gap 14 BUN 73 H Creatinine 2.0 H Est GFR ( Amer) 29 Est GFR (Non-Af Amer) 24 POC Glucose (mg/dL) 121 H Random Glucose 148 H Calcium 7.5 L Phosphorus 3.5 Magnesium 1.9 Total Bilirubin 1.6 H AST 6 L D ALT 25 Alkaline Phosphatase 35 L D Total Protein 3.7 L Albumin 1.8 L Globulin 1.9 L Albumin/Globulin Ratio 1.0 Heparin-induced Plt Ab Hep-Induced Plt Ab Cmmt Radiology Impressions: Radiology Impressions Abdomen/Pelvis CT 04/19/18 09:17 IMPRESSION: Pneumoperitoneum and ascites, increased compared to prior examination. Bilateral pleural effusion with lower lobe segmental/subsegmental atelectasis. Diffuse reticulonodular interstitial infiltrate seen in visualized lung bilaterally which may be infectious/inflammatory in etiology or may reflect pulmonary edema. Enlarging bilobed fluid collection in the pelvis as described. No free spillage of enteral contrast material into the peritoneal cavity to suggest acute bowel perforation/leakage. Additional minor findings as above. Chest X-Ray 04/20/18 06:57 IMPRESSION: Increased airspace disease mid to inferior right lung zone, unchanged at the left base with likely mild left and [id number] right pleural effusion evident. No definitive pulmonary vascular congestion. Tubes and catheters as described above. Fingerstick Blood Sugar Results: 180 Critical Care Progress Note - Ventilator Checklist Head of Bed 30 Degrees: Yes PUD Prophalyxis: Yes DVT Prophylaxis: Yes - Vent Settings MODE:: PRVC TIDAL VOLUME:: 470 RESP RATE:: 18 FIO2:: 50 PEEP:: 0 - Extremities/Vascular Does the Patient have a Central Venous Catheter?: Yes Insertion Site: Internal Jugular Vein - Prophylaxis GI Prophylaxis GI: PPI - Prophylaxis DVT Prophylaxis DVT: SCDs - Nutrition Nutrition: Nutrition Category Date Time Status NPO Diet [DIET] Diets 04/15/18 Breakfast Active Assessment/Plan - Assessment and Plan (Free Text) Plan: Patient is a 82 yo female w/ PMH of CHF, HTN, Afib on AC admitted for bilateral pleural effusions and pneumonia. Patient was intubated and extubated. Patient has recurrent pleural effusions s/p thoracentesis and chest tube placement. Pat ient on CT abd/pelvis showed perforation with free air. Poor surgical candidate. Re-intubated on 04/17/18 Neuro Sedated on propofol no active issues Pulm on PRVC ventilation Duoneb Q6 PRN CV Levophed Vasopressin GI Restart Tube feedings @ 20 cc poor surgical candidate due to comorbidities Heme Platelets trending down, today @ 12 from 15 yesterday 2 units of platelets 3 doses of albumin 25% 50gm Repeat CBC, CMP in am Endo Q6h accucheck ISS D5/.9 NS @ 100mls/hr Renal Cr 2.0 D5/.9 NS @ 100mls/hr Derm Bacitracin/Nystatin Continue wound care as per wound care/podiatry ID continue abx Fluconazole (started on 03/27) Cefepime (started on 04/01) Flagyl (started 04/16) Nystatin (started on 03/23) DVT ppx: SCDs, anticoag C/I due to thrombocytopenia GI ppx: Protonix IV Disposition: continue medical management as per ICU; no surgical intervention. will follow up CBC for platelet count, continue IV abx and wound care; DNR active. Discussion about terminal extubation with daugther, will follow up with family on patient's goals of care. Plan discussed with Dr Perry Gary, PGY-1 - Date & Time Date: 04/20/18 Time: 13:00 <Zaheer Amador S - Last Filed: 04/20/18 17:24> CCU Objective - Vital Signs / Intake & Output Vital Signs (Last 4 hours): Vital Signs Temp Pulse Resp BP Pulse Ox 04/20/18 16:01 104/70 04/20/18 16:00 98.3 F 102 H 20 104/70 100 04/20/18 15:02 103 H 19 91 L 04/20/18 15:00 102 H 19 92/64 L 100 04/20/18 14:00 101 H 21 103/62 100 04/20/18 13:01 103/62 04/20/18 13:00 93 H 21 103/62 100 Intake and Output (Last 8hrs): Intake & Output 0104/20/18 04/20/18 06:59 14:59 22:59 Intake Total 807.6 925.6 106.4 Output Total 151 Balance 656.6 925.6 106.4 Weight 235 lb 9.6 oz Intake: IV 100 Intake, IV Amount 807.6 825.6 106.4 Left Medial Port Internal 48 16 4 Jugular Left Proximal Port 9.6 9.6 2.4 Left Proximal Port 750 800 100 Internal Jugular Output: Urine 150 Urethral ([place]) 150 Stool 1 Other: # Bowel Movements 1 - Medications Active Medications: Active Medications Generic Name Dose Route Start Last Admin Trade Name Freq PRN Reason Stop Dose Admin Acetaminophen 650 mg 03/23/18 15:59 04/02/18 04:36 Tylenol 325mg Tab PO 650 mg Q6 PRN Administration Fever >100.4 F Albumin Human 50 gm 04/20/18 13:00 04/20/18 13:10 Albumin Human 25% (12.5 Gm/50 Ml) IV 04/21/18 05:01 50 gm Q8H KEV Administration Albuterol/Ipratropium 3 ml 04/02/18 14:00 04/20/18 13:22 Duoneb 3 Mg/0.5 Mg (3 Ml) Ud INH 3 ml RQ6 KEV Administration Bacitracin 0 gm 04/01/18 18:00 04/20/18 10:17 Bacitracin TOP 1 applic BID KEV Administration Hydromorphone HCl 0.5 mg 04/17/18 08:22 Dilaudid IVP Q6H PRN Pain, moderate (4-7) Fluconazole 50 mls @ 100 mls/hr 03/27/18 10:00 04/20/18 10:15 Diflucan Iv 100 Mg/50 Ml Ns IVPB 100 mls/hr DAILY KEV Administration Protocol Norepinephrine Bitartrate 4 mg 254 mls @ 15.24 mls/hr 04/12/18 18:52 04/19/18 04:00 / Dextrose IV 0 mcg/min .[id number] PRN 0 mls/hr TITRATE PER MD ORDER Titration Protocol 4 MCG/MIN Metronidazole 500 mg in 100 mls @ 100 mls/hr 04/16/18 11:00 04/20/18 10:58 Flagyl IVPB 100 mls/hr Q8H KEV Administration Protocol Cefepime HCl 1 gm in 50 mls @ 100 mls/hr 04/17/18 06:00 04/20/18 05:10 Maxipime Iv 1 Gm Premix IVPB 100 mls/hr Q12H KEV Administration Protocol Propofol 1,000 mg in 100 mls @ 3.001 mls/hr 04/17/18 08:21 04/20/18 07:00 Diprivan IV 3.33 mcg/kg/min .Q24H PRN 2 mls/hr TITRATE PER MD ORDER Administration Protocol 5 MCG/KG/MIN Dextrose/Sodium Chloride 1,000 mls @ 100 mls/hr 04/18/18 08:45 04/20/18 13:19 Dextrose 5%/0.9% Ns 1000 Ml IV Not Given .Q10H KEV Vasopressin 40 units/ Dextrose 42 mls @ 1.26 mls/hr 04/18/18 09:00 04/20/18 10:25 IV Not Given .Q24H KEV 0.02 UNITS/MIN Insulin Aspart 0 unit 04/16/18 12:00 04/20/18 12:00 Novolog SC Not Given Q6 KEV Protocol Nystatin 1 applic 03/23/18 18:00 04/20/18 10:17 Nystop Topical Powder TOP 1 applic BID KEV Administration Pantoprazole Sodium 40 mg 04/16/18 12:00 04/20/18 10:24 Protonix Inj IVP 40 mg DAILY KEV Administration Silver Sulfadiazine 0 ea 03/26/18 10:00 04/20/18 10:16 Silvadene 1% 20 Gm TOP 1 applic BID KEV Administration - Patient Studies Lab Studies: Lab Studies 04/20/18 04/20/18 04/20/18 Range/Units 11:46 06:32 06:32 WBC (4.8-10.8) K/uL RBC (3.80-5.20) Mil/uL Hgb (11.0-16.0) g/dL Hct (34.0-47.0) % MCV (81.0-99.0) fL MCH (27.0-31.0) pg MCHC (33.0-37.0) g/dL RDW (11.5-14.5) % Plt Count (130-400) K/uL MPV (7.2-11.7) fL Neut % (Auto) (50.0-75.0) % Lymph % (Auto) (20.0-40.0) % Holt % (Auto) (0.0-10.0) % Eos % (Auto) (0.0-4.0) % Baso % (Auto) (0.0-2.0) % Neut # (Auto) (1.8-7.0) K/uL Lymph # (Auto) (1.0-4.3) K/uL Holt # (Auto) (0.0-0.8) K/uL Eos # (Auto) (0.0-0.7) K/uL Baso # (Auto) (0.0-0.2) K/uL Neutrophils % (Manual) (50-75) % Band Neutrophils % (0-2) % Lymphocytes % (Manual) (20-40) % Monocytes % (Manual) (0-10) % Basophils % (Manual) (0-2) % Platelet Estimate (NORMAL) Polychromasia Hypochromasia (manual) Poikilocytosis (manual Anisocytosis (manual) Target Cells Ovalocytes Shalini Cells PT 23.5 H (9.7-12.2) SECONDS INR 2.1 APTT 52 H D (21-34) SECONDS Puncture Site pCO2 (35-45) mm/Hg pO2 (80-100) mm/Hg HCO3 (21-28) mmol/L ABG pH (7.35-7.45) ABG Total CO2 (22-28) mmol/L ABG O2 Saturation (95-98) % ABG Base Excess (-2.0-3.0) mmol/L ABG Hemoglobin (11.7-17.4) g/dL ABG Carboxyhemoglobin (0.5-1.5) % POC ABG HHb (Measured) (0.0-5.0) % ABG Methemoglobin (0.0-3.0) % Pawel Test A-a O2 Difference mm/Hg Respiratory Index Hgb O2 Saturation (95.0-98.0) % Vent Mode Mechanical Rate FiO2 % Tidal Volume Sodium 133 (132-148) mmol/L Potassium 3.0 L (3.6-5.2) mmol/L Chloride 98 (98-107) mmol/L Carbon Dioxide 23 (22-30) mmol/L Anion Gap 14 (10-20) BUN 73 H (7-17) mg/dL Creatinine 2.0 H (0.7-1.2) mg/dL Est GFR ( Amer) 29 Est GFR (Non-Af Amer) 24 POC Glucose (mg/dL) 121 H (65-110) mg/dL Random Glucose 148 H (65-105) mg/dL Calcium 7.5 L (8.6-10.4) mg/dl Phosphorus 3.5 (2.5-4.5) mg/dL Magnesium 1.9 (1.6-2.3) mg/dL Total Bilirubin 1.6 H (0.2-1.3) mg/dL AST 6 L D (14-36) U/L ALT 25 (9-52) U/L Alkaline Phosphatase 35 L D (38-126) U/L Total Protein 3.7 L (6.3-8.3) g/dL Albumin 1.8 L (3.5-5.0) g/dL Globulin 1.9 L (2.2-3.9) gm/dL Albumin/Globulin Ratio 1.0 (1.0-2.1) Heparin-induced Plt Ab (Negative) JENY UFH Low Dose 0.1 % Release JENY UFH Low Dose 0.5 % Release JENY UFH High Dose 100 % Release JENY Unfract Heparin (Negative) Hep-Induced Plt Ab Cmfl 04/20/18 04/20/18 04/20/18 Range/Units 06:32 06:03 05:16 WBC 2.1 L (4.8-10.8) K/uL RBC 2.75 L (3.80-5.20) Mil/uL Hgb 7.4 L (11.0-16.0) g/dL Hct 23.2 L (34.0-47.0) % MCV 84.5 (81.0-99.0) fL MCH 27.1 (27.0-31.0) pg MCHC 32.0 L (33.0-37.0) g/dL RDW 25.1 H (11.5-14.5) % Plt Count 12 L* D (130-400) K/uL MPV 11.4 (7.2-11.7) fL Neut % (Auto) 86.1 H (50.0-75.0) % Lymph % (Auto) 7.4 L (20.0-40.0) % Holt % (Auto) 4.6 (0.0-10.0) % Eos % (Auto) 1.0 (0.0-4.0) % Baso % (Auto) 0.9 (0.0-2.0) % Neut # (Auto) 1.8 (1.8-7.0) K/uL Lymph # (Auto) 0.2 L (1.0-4.3) K/uL Holt # (Auto) 0.1 (0.0-0.8) K/uL Eos # (Auto) 0.0 (0.0-0.7) K/uL Baso # (Auto) 0.0 (0.0-0.2) K/uL Neutrophils % (Manual) 83 H (50-75) % Band Neutrophils % 2 (0-2) % Lymphocytes % (Manual) 10 L (20-40) % Monocytes % (Manual) 4 (0-10) % Basophils % (Manual) 1 (0-2) % Platelet Estimate Markedly decreased L (NORMAL) Polychromasia Slight Hypochromasia (manual) Moderate Poikilocytosis (manual Slight Anisocytosis (manual) Slight Target Cells Slight Ovalocytes Slight Wesley Cells Slight PT (9.7-12.2) SECONDS INR APTT (21-34) SECONDS Puncture Site L rad pCO2 34 L (35-45) mm/Hg pO2 125 H (80-100) mm/Hg HCO3 25.3 (21-28) mmol/L ABG pH 7.46 H (7.35-7.45) ABG Total CO2 25.2 (22-28) mmol/L ABG O2 Saturation 99.6 H (95-98) % ABG Base Excess 0.4 (-2.0-3.0) mmol/L ABG Hemoglobin 7.4 L (11.7-17.4) g/dL ABG Carboxyhemoglobin 2.0 H (0.5-1.5) % POC ABG HHb (Measured) 0.4 (0.0-5.0) % ABG Methemoglobin 0.3 (0.0-3.0) % Pawel Test Pos A-a O2 Difference 189.0 mm/Hg Respiratory Index 1.5 Hgb O2 Saturation 97.3 (95.0-98.0) % Vent Mode Prvc Mechanical Rate 18 FiO2 50.0 % Tidal Volume 470 Sodium (132-148) mmol/L Potassium (3.6-5.2) mmol/L Chloride (98-107) mmol/L Carbon Dioxide (22-30) mmol/L Anion Gap (10-20) BUN (7-17) mg/dL Creatinine (0.7-1.2) mg/dL Est GFR ( Amer) Est GFR (Non-Af Amer) POC Glucose (mg/dL) 175 H (65-110) mg/dL Random Glucose (65-105) mg/dL Calcium (8.6-10.4) mg/dl Phosphorus (2.5-4.5) mg/dL Magnesium (1.6-2.3) mg/dL Total Bilirubin (0.2-1.3) mg/dL AST (14-36) U/L ALT (9-52) U/L Alkaline Phosphatase (38-126) U/L Total Protein (6.3-8.3) g/dL Albumin (3.5-5.0) g/dL Globulin (2.2-3.9) gm/dL Albumin/Globulin Ratio (1.0-2.1) Heparin-induced Plt Ab (Negative) JENY UFH Low Dose 0.1 % Release JENY UFH Low Dose 0.5 % Release JENY UFH High Dose 100 % Release JENY Unfract Heparin (Negative) Hep-Induced Plt Ab Cmmt 04/20/18 04/19/18 04/18/18 Range/Units 00:02 18:37 11:35 WBC (4.8-10.8) K/uL RBC (3.80-5.20) Mil/uL Hgb (11.0-16.0) g/dL Hct (34.0-47.0) % MCV (81.0-99.0) fL MCH (27.0-31.0) pg MCHC (33.0-37.0) g/dL RDW (11.5-14.5) % Plt Count (130-400) K/uL MPV (7.2-11.7) fL Neut % (Auto) (50.0-75.0) % Lymph % (Auto) (20.0-40.0) % Holt % (Auto) (0.0-10.0) % Eos % (Auto) (0.0-4.0) % Baso % (Auto) (0.0-2.0) % Neut # (Auto) (1.8-7.0) K/uL Lymph # (Auto) (1.0-4.3) K/uL Holt # (Auto) (0.0-0.8) K/uL Eos # (Auto) (0.0-0.7) K/uL Baso # (Auto) (0.0-0.2) K/uL Neutrophils % (Manual) (50-75) % Band Neutrophils % (0-2) % Lymphocytes % (Manual) (20-40) % Monocytes % (Manual) (0-10) % Basophils % (Manual) (0-2) % Platelet Estimate (NORMAL) Polychromasia Hypochromasia (manual) Poikilocytosis (manual Anisocytosis (manual) Target Cells Ovalocytes Wesley Cells PT (9.7-12.2) SECONDS INR APTT (21-34) SECONDS Puncture Site pCO2 (35-45) mm/Hg pO2 (80-100) mm/Hg HCO3 (21-28) mmol/L ABG pH (7.35-7.45) ABG Total CO2 (22-28) mmol/L ABG O2 Saturation (95-98) % ABG Base Excess (-2.0-3.0) mmol/L ABG Hemoglobin (11.7-17.4) g/dL ABG Carboxyhemoglobin (0.5-1.5) % POC ABG HHb (Measured) (0.0-5.0) % ABG Methemoglobin (0.0-3.0) % Pawel Test A-a O2 Difference mm/Hg Respiratory Index Hgb O2 Saturation (95.0-98.0) % Vent Mode Mechanical Rate FiO2 % Tidal Volume Sodium (132-148) mmol/L Potassium (3.6-5.2) mmol/L Chloride (98-107) mmol/L Carbon Dioxide (22-30) mmol/L Anion Gap (10-20) BUN (7-17) mg/dL Creatinine (0.7-1.2) mg/dL Est GFR ( Amer) Est GFR (Non-Af Amer) POC Glucose (mg/dL) 197 H 214 H (65-110) mg/dL Random Glucose (65-105) mg/dL Calcium (8.6-10.4) mg/dl Phosphorus (2.5-4.5) mg/dL Magnesium (1.6-2.3) mg/dL Total Bilirubin (0.2-1.3) mg/dL AST (14-36) U/L ALT (9-52) U/L Alkaline Phosphatase (38-126) U/L Total Protein (6.3-8.3) g/dL Albumin (3.5-5.0) g/dL Globulin (2.2-3.9) gm/dL Albumin/Globulin Ratio (1.0-2.1) Heparin-induced Plt Ab Negative (Negative) JENY UFH Low Dose 0.1 0 % Release JENY UFH Low Dose 0.5 0 % Release JENY UFH High Dose 100 0 % Release JENY Unfract Heparin Negative (Negative) Hep-Induced Plt Ab Cmmt 0.117 Laboratory Results - last 24 hr 04/18/18 04/19/18 04/20/18 11:35 18:37 00:02 WBC RBC Hgb Hct MCV MCH MCHC RDW Plt Count MPV Neut % (Auto) Lymph % (Auto) Holt % (Auto) Eos % (Auto) Baso % (Auto) Neut # (Auto) Lymph # (Auto) Holt # (Auto) Eos # (Auto) Baso # (Auto) Neutrophils % (Manual) Band Neutrophils % Lymphocytes % (Manual) Monocytes % (Manual) Basophils % (Manual) Platelet Estimate Polychromasia Hypochromasia (manual) Poikilocytosis (manual Anisocytosis (manual) Target Cells Ovalocytes Wesley Cells PT INR APTT Puncture Site pCO2 pO2 HCO3 ABG pH ABG Total CO2 ABG O2 Saturation ABG Base Excess ABG Hemoglobin ABG Carboxyhemoglobin POC ABG HHb (Measured) ABG Methemoglobin Pawel Test A-a O2 Difference Respiratory Index Hgb O2 Saturation Vent Mode Mechanical Rate FiO2 Tidal Volume Sodium Potassium Chloride Carbon Dioxide Anion Gap BUN Creatinine Est GFR ( Amer) Est GFR (Non-Af Amer) POC Glucose (mg/dL) 214 H 197 H Random Glucose Calcium Phosphorus Magnesium Total Bilirubin AST ALT Alkaline Phosphatase Total Protein Albumin Globulin Albumin/Globulin Ratio Heparin-induced Plt Ab Negative JENY UFH Low Dose 0.1 0 JENY UFH Low Dose 0.5 0 JENY UFH High Dose 100 0 JENY Unfract Heparin Negative Hep-Induced Plt Ab Cmmt 0.117 04/20/18 04/20/18 04/20/18 05:16 06:03 06:32 WBC 2.1 L RBC 2.75 L Hgb 7.4 L Hct 23.2 L MCV 84.5 MCH 27.1 MCHC 32.0 L RDW 25.1 H Plt Count 12 L* D MPV 11.4 Neut % (Auto) 86.1 H Lymph % (Auto) 7.4 L Holt % (Auto) 4.6 Eos % (Auto) 1.0 Baso % (Auto) 0.9 Neut # (Auto) 1.8 Lymph # (Auto) 0.2 L Holt # (Auto) 0.1 Eos # (Auto) 0.0 Baso # (Auto) 0.0 Neutrophils % (Manual) 83 H Band Neutrophils % 2 Lymphocytes % (Manual) 10 L Monocytes % (Manual) 4 Basophils % (Manual) 1 Platelet Estimate Markedly decreased L Polychromasia Slight Hypochromasia (manual) Moderate Poikilocytosis (manual Slight Anisocytosis (manual) Slight Target Cells Slight Ovalocytes Slight Wesley Cells Slight PT INR APTT Puncture Site L rad pCO2 34 L pO2 125 H HCO3 25.3 ABG pH 7.46 H ABG Total CO2 25.2 ABG O2 Saturation 99.6 H ABG Base Excess 0.4 ABG Hemoglobin 7.4 L ABG Carboxyhemoglobin 2.0 H POC ABG HHb (Measured) 0.4 ABG Methemoglobin 0.3 Pawel Test Pos A-a O2 Difference 189.0 Respiratory Index 1.5 Hgb O2 Saturation 97.3 Vent Mode Prvc Mechanical Rate 18 FiO2 50.0 Tidal Volume 470 Sodium Potassium Chloride Carbon Dioxide Anion Gap BUN Creatinine Est GFR ( Amer) Est GFR (Non-Af Amer) POC Glucose (mg/dL) 175 H Random Glucose Calcium Phosphorus Magnesium Total Bilirubin AST ALT Alkaline Phosphatase Total Protein Albumin Globulin Albumin/Globulin Ratio Heparin-induced Plt Ab JENY UFH Low Dose 0.1 JENY UFH Low Dose 0.5 JENY UFH High Dose 100 JENY Unfract Heparin Hep-Induced Plt Ab Cmmt 04/20/18 04/20/18 04/20/18 06:32 06:32 11:46 WBC RBC Hgb Hct MCV MCH MCHC RDW Plt Count MPV Neut % (Auto) Lymph % (Auto) Holt % (Auto) Eos % (Auto) Baso % (Auto) Neut # (Auto) Lymph # (Auto) Holt # (Auto) Eos # (Auto) Baso # (Auto) Neutrophils % (Manual) Band Neutrophils % Lymphocytes % (Manual) Monocytes % (Manual) Basophils % (Manual) Platelet Estimate Polychromasia Hypochromasia (manual) Poikilocytosis (manual Anisocytosis (manual) Target Cells Ovalocytes Wesley Cells PT 23.5 H INR 2.1 APTT 52 H D Puncture Site pCO2 pO2 HCO3 ABG pH ABG Total CO2 ABG O2 Saturation ABG Base Excess ABG Hemoglobin ABG Carboxyhemoglobin POC ABG HHb (Measured) ABG Methemoglobin Pawel Test A-a O2 Difference Respiratory Index Hgb O2 Saturation Vent Mode Mechanical Rate FiO2 Tidal Volume Sodium 133 Potassium 3.0 L Chloride 98 Carbon Dioxide 23 Anion Gap 14 BUN 73 H Creatinine 2.0 H Est GFR ( Amer) 29 Est GFR (Non-Af Amer) 24 POC Glucose (mg/dL) 121 H Random Glucose 148 H Calcium 7.5 L Phosphorus 3.5 Magnesium 1.9 Total Bilirubin 1.6 H AST 6 L D ALT 25 Alkaline Phosphatase 35 L D Total Protein 3.7 L Albumin 1.8 L Globulin 1.9 L Albumin/Globulin Ratio 1.0 Heparin-induced Plt Ab JENY UFH Low Dose 0.1 JENY UFH Low Dose 0.5 JENY UFH High Dose 100 JENY Unfract Heparin Hep-Induced Plt Ab [facility] Radiology Impressions: Radiology Impressions Chest X-Ray 04/20/18 06:57 IMPRESSION: Increased airspace disease mid to inferior right lung zone, unchanged at the left base with likely mild left and [id number] right pleural effusion evident. No definitive pulmonary vascular congestion. Tubes and catheters as described above. Critical Care Progress Note - Nutrition Nutrition: Nutrition Category Date Time Status NPO Diet [DIET] Diets 04/15/18 Breakfast Active Assessment/Plan (1) Acute respiratory failure Current Visit: No Status: Acute (2) Atrial fibrillation and flutter Current Visit: No Status: Acute (3) CHF (congestive heart failure) Current Visit: No Status: Acute (4) Pleural effusion Current Visit: Yes Status: Acute Attending/Attestation - Attestation I have personally seen and examined this patient.: Yes I have fully participated in the care of the patient.: Yes I have reviewed all pertinent clinical information: Yes Notes (Text): 04/20/18 17:23 Patient seen and examined Remained intubated on ventilatory support Thrombocytopenic and anemic Possible terminal extubation Prognosis grave
--- NOTE | 2018-04-20 16:31 | CP.PCM.PN ---
Subjective - Date & Time of Evaluation Date of Evaluation: 04/20/18 Time of Evaluation: 13:00 - Subjective Subjective: Podiatry Progress Note- Dr. Shah 82 yo female seen and evaluated at bedside for right posterior leg superficial ulceration and bilateral lower extremity swelling with attending Dr. Shah at bedside. Dressing clean, dry and intact. Objective - Vital Signs/Intake and Output Vital Signs (last 24 hours): Temp Pulse Resp BP Pulse Ox 98.3 F 102 H 20 104/70 100 04/20/18 16:00 04/20/18 16:00 04/20/18 16:00 04/20/18 16:01 04/20/18 16:00 Intake and Output: 04/20/18 04/20/18 06:59 18:59 Intake Total 1236.4 1032.0 Output Total 151 Balance 1085.4 1032.0 - Medications Medications: Current Medications Acetaminophen (Tylenol 325mg Tab) 650 mg PO Q6 PRN PRN Reason: Fever >100.4 F Last Admin: 04/02/18 04:36 Dose: 650 mg Albumin Human (Albumin Human 25% (12.5 Gm/50 Ml)) 50 gm IV Q8H KEV Stop: 04/21/18 05:01 Last Admin: 04/20/18 13:10 Dose: 50 gm Albuterol/Ipratropium (Duoneb 3 Mg/0.5 Mg (3 Ml) Ud) 3 ml INH RQ6 KEV Last Admin: 04/20/18 13:22 Dose: 3 ml Bacitracin (Bacitracin) 0 gm TOP BID KEV Last Admin: 04/20/18 10:17 Dose: 1 applic Hydromorphone HCl (Dilaudid) 0.5 mg IVP Q6H PRN PRN Reason: Pain, moderate (4-7) Fluconazole (Diflucan Iv 100 Mg/50 Ml Ns) 50 mls @ 100 mls/hr IVPB DAILY KEV; Protocol Last Admin: 04/20/18 10:15 Dose: 100 mls/hr Norepinephrine Bitartrate 4 mg (/ Dextrose) 254 mls @ 15.24 mls/hr IV .[id number] PRN; Protocol PRN Reason: TITRATE PER MD ORDER Last Titration: 04/19/18 04:00 Dose: 0 mcg/min, 0 mls/hr Metronidazole (Flagyl) 500 mg in 100 mls @ 100 mls/hr IVPB Q8H KEV; Protocol Last Admin: 04/20/18 10:58 Dose: 100 mls/hr Cefepime HCl (Maxipime Iv 1 Gm Premix) 1 gm in 50 mls @ 100 mls/hr IVPB Q12H KEV; Protocol Last Admin: 04/20/18 05:10 Dose: 100 mls/hr Propofol (Diprivan) 1,000 mg in 100 mls @ 3.001 mls/hr IV .Q24H PRN; Protocol PRN Reason: TITRATE PER MD ORDER Last Admin: 04/20/18 07:00 Dose: 3.33 mcg/kg/min, 2 mls/hr Dextrose/Sodium Chloride (Dextrose 5%/0.9% Ns 1000 Ml) 1,000 mls @ 100 mls/hr IV .Q10H [facility] Last Admin: 04/20/18 13:19 Dose: Not Given Vasopressin 40 units/ Dextrose 42 mls @ 1.26 mls/hr IV .Q24H KEV Last Admin: 04/20/18 10:25 Dose: Not Given Insulin Aspart (Novolog) 0 unit SC Q6 KEV; Protocol Last Admin: 04/20/18 12:00 Dose: Not Given Nystatin (Nystop Topical Powder) 1 applic TOP BID [facility] Last Admin: 04/20/18 10:17 Dose: 1 applic Pantoprazole Sodium (Protonix Inj) 40 mg IVP DAILY [facility] Last Admin: 04/20/18 10:24 Dose: 40 mg Silver Sulfadiazine (Silvadene 1% 20 Gm) 0 ea TOP BID [facility] Last Admin: 04/20/18 10:16 Dose: 1 applic - Labs Labs: 04/20/18 06:32 04/20/18 06:32 PT 23.5 SECONDS (9.7-12.2) H 04/20/18 06:32 INR 2.1 04/20/18 06:32 APTT 52 SECONDS (21-34) H D 04/20/18 06:32 - Constitutional Appears: Well, Non-toxic, No Acute Distress - Extremities Exam Extremities Exam: absent: Calf Tenderness Additional comments: Lower extremity focused exam: Vasc: Pulses faintly palpable, secondary to edema, Temp gradient cool to cool from proximal to distal. CFT <3 secs x 10, +1 edema appreciated from tibial tuberosity to dorsal aspect of feet bilaterally, swelling improved Ortho: No tenderness to palpation noted to lower extremity B/L DERM: Dry, flaky, hyperkeratotic skin noted to bilateral LE distal to tibial tuberosity. Mild superficial ulceration appreciated to the posterior aspect of the R leg, serous drainage appreciated. No purulence, no cellulities, no tunneling, no tracking, no clinical signs of infection at this time. Neuro: Gross and protective sensation intact B/L Assessment and Plan - Assessment and Plan (Free Text) Assessment: 82 yo female seen and evaluated at bedside for right posterior leg superficial ulceration with LE swelling- stable, no clinical signs of infection Plan: Patient seen and evaluated with attending Dr. Shah Wound cleansed, dressed with DSD, LEIDY B/L Continue multipodus boots at all times in bed Will continue to follow while in house LE stable per podiatry standpoint Will f/u with Dr. Shah
[2018-04-21] MEDS: (Novolog) Insulin Aspart, Recombinant 100 u/ml 10 ml vial SC SCH ×2 (00:10→05:18)
[2018-04-21] MEDS: Dextrose 5%/0.9% NS 1,000 ML IV SCH ×2 (01:15→06:33)
[2018-04-21] MEDS: Albuterol-Ipratrop 3 mg / 0.5 (3 ml) UD INH SCH ×3 (01:56→14:10)
[2018-04-21] MEDS: metroNIDAZOLE IV 500 mg/100 ml 500 MG/100 ML BAG IVPB SCH ×2 (02:10→10:10)
[2018-04-21] MEDS: Albumin Human 25% (12.5 gm/50 ml) IV SCH (04:10)
[2018-04-21] MEDS: Cefepime IV 1 gm in Dextrose 1 GM/50 ML BAG IVPB SCH (05:15)
[2018-04-21 06:01] LABS: ABG ALLEN TEST POS; ARTERIAL BLOOD GAS HCO3 22.3 mmol/L (21-28); ARTERIAL BLOOD GAS HEMOGLOBIN 6.6 g/dL (11.7-17.4); ARTERIAL BLOOD GAS O2 SAT 99.1 % (95-98); ARTERIAL BLOOD GAS PCO2 30 mm/Hg (35-45); ARTERIAL BLOOD GAS PH 7.44 (7.35-7.45); ARTERIAL BLOOD GAS PO2 98 mm/Hg (80-100); ARTERIAL BLOOD GAS TCO2 21.3 mmol/L (22-28)
[2018-04-21 06:11] LABS: BASO % 0.7 % (0.0-2.0); EOS % 1.2 % (0.0-4.0); HEMOGLOBIN 6.6 g/dL (11.0-16.0); LYMPH # 0.2 K/uL (1.0-4.3); LYMPH % 14.8 % (20.0-40.0); MEAN CELL VOLUME 84.7 fL (81.0-99.0); MEAN CORPUSCULAR HEMOGLOBIN 27.2 pg (27.0-31.0); MEAN CORPUSCULAR HGB CONC 32.1 g/dL (33.0-37.0); MEAN PLATELET VOLUME 10.5 fL (7.2-11.7); MONO # 0.1 K/uL (0.0-0.8); MONO % 7.9 % (0.0-10.0); NEUT # 1.2 K/uL (1.8-7.0); NEUT % 75.4 % (50.0-75.0); NRBC % 0.2 % (0.0-2.0); RBC 2.44 Mil/uL (3.80-5.20); RED CELL DISTRIBUTION WIDTH 24.5 % (11.5-14.5)
[2018-04-21 06:24] LABS: ALB/GLOB RATIO 1.7 (1.0-2.1); ALBUMIN 2.9 g/dL (3.5-5.0); CALCIUM 7.9 mg/dl (8.6-10.4); WHITE BLOOD COUNT 1.6 K/uL (4.8-10.8)
[2018-04-21] MEDS: Silver Sulfadiazine 1% Cream (20 gm) TOP SCH (09:39)
[2018-04-21] MEDS: Bacitracin Ointment 30 GM TUBE TOP SCH (09:40)
[2018-04-21] MEDS: Fluconazole IV 100mg/50 ml NS 50 ML IVPB SCH (10:10)
--- NOTE | 2018-04-21 10:45 | CP.CCUPN ---
<Giuseppe Gary - Last Filed: 04/21/18 11:47> CCU Subjective - Physician Review Subjective (Free Text): CC Progress note for Dr Amador service Patient seen and examined at bedside. Patient continues to be intubated, under sedation. Family (daugther) is at bedside. as per daugther, patient seemed to be more swollen that yesterday. Patient open eyes sporadically, but not presently during encounter. ROS unttainable due to patient's current condition. Critical Care Time Spent (in minutes): 35 CCU Objective - Vital Signs / Intake & Output Vital Signs (Last 4 hours): Vital Signs Temp Pulse Resp BP Pulse Ox 04/21/18 09:00 98 H 19 85/67 L 97 04/21/18 08:01 91 H 19 94 L 04/21/18 08:00 98.2 F 97 H 18 91/66 L 96 04/21/18 07:02 104 H 19 91/66 L 94 L 04/21/18 07:00 97 H 18 89/59 L 96 Intake and Output (Last 8hrs): Intake & Output 04/20/18 04/21/18 04/21/18 22:59 06:59 14:59 Intake Total 721.6 875.6 315.6 Output Total 245 100 Balance 476.6 775.6 315.6 Weight 225 lb 4.8 oz Intake: IV 40 40 Intake, IV Amount 681.6 835.6 315.6 Left Distal Port Internal 150 250 Jugular Left Medial Port Internal 22 26 12 Jugular Left Proximal Port 9.6 9.6 3.6 Left Proximal Port 500 550 300 Internal Jugular Output: Chest Tube Drainage 45 Left Posterior Chest 45 Urine 200 100 Urethral ([place]) 200 100 Other: # Bowel Movements 1 - Physical Exam Head: Positive for: Atraumatic, Normocephalic, Other (central line in left IJ) Pupils: Positive for: PERRL Mouth: Positive for: Dry, Other (ET tube in place ) Neck: Negative for: JVD, Lymphadenopathy Respiratory/Chest: Positive for: Decreased Breath Sounds. Negative for: Accessory Muscle Use, Wheezes, Tachypneic Cardiovascular: Positive for: Irregular Rhythm. Negative for: Murmurs Abdomen: Positive for: Other (umbilical hernia). Negative for: Tenderness, Distention, Normal Bowel Sounds, Peritoneal Signs, Rebound, Guarding Genitourinary/Pelvic Exam: Positive for: Other (D[place] in place for strict Is/Os) Upper Extremity: Positive for: Edema. Negative for: Cyanosis Lower Extremity: Positive for: Edema Neurological: Positive for: Other (sedated). Negative for: GCS=15, CN II-XII Intact, Speech Normal Skin: Positive for: Dry, Normal Color, Other (chest tube in posterior left back, right foot ulcer, and sacral unstageable ulcer). Negative for: Diaphoretic Psychiatric: Negative for: Alert, Oriented x 3 - Medications Active Medications: Active Medications Generic Name Dose Route Start Last Admin Trade Name Freq PRN Reason Stop Dose Admin Acetaminophen 650 mg 03/23/18 15:59 04/02/18 04:36 Tylenol 325mg Tab PO 650 mg Q6 PRN Administration Fever >100.4 F Albuterol/Ipratropium 3 ml 04/02/18 14:00 04/21/18 08:00 Duoneb 3 Mg/0.5 Mg (3 Ml) Ud INH 3 ml RQ6 KEV Administration Bacitracin 0 gm 04/01/18 18:00 04/21/18 09:40 Bacitracin TOP 1 applic BID KEV Administration Hydromorphone HCl 0.5 mg 04/17/18 08:22 Dilaudid IVP Q6H PRN Pain, moderate (4-7) Fluconazole 50 mls @ 100 mls/hr 03/27/18 10:00 04/21/18 10:10 Diflucan Iv 100 Mg/50 Ml Ns IVPB 100 mls/hr DAILY KEV Administration Protocol Norepinephrine Bitartrate 4 mg 254 mls @ 15.24 mls/hr 04/12/18 18:52 04/19/18 04:00 / Dextrose IV 0 mcg/min .[id number] PRN 0 mls/hr TITRATE PER MD ORDER Titration Protocol 4 MCG/MIN Metronidazole 500 mg in 100 mls @ 100 mls/hr 04/16/18 11:00 04/21/18 10:10 Flagyl IVPB 100 mls/hr Q8H KEV Administration Protocol Cefepime HCl 1 gm in 50 mls @ 100 mls/hr 04/17/18 06:00 04/21/18 05:15 Maxipime Iv 1 Gm Premix IVPB 100 mls/hr Q12H KEV Administration Protocol Propofol 1,000 mg in 100 mls @ 3.001 mls/hr 04/17/18 08:21 04/21/18 06:00 Diprivan IV 6.66 mcg/kg/min .Q24H PRN 4 mls/hr TITRATE PER MD ORDER Titration Protocol 5 MCG/KG/MIN Vasopressin 40 units/ Dextrose 42 mls @ 1.26 mls/hr 04/18/18 09:00 04/20/18 10:25 IV Not Given .Q24H KEV 0.02 UNITS/MIN Insulin Aspart 0 unit 04/16/18 12:00 04/21/18 05:18 Novolog SC Not Given Q6 KEV Protocol Nystatin 1 applic 03/23/18 18:00 04/21/18 09:40 Nystop Topical Powder TOP 1 applic BID KEV Administration Pantoprazole Sodium 40 mg 04/16/18 12:00 04/21/18 10:26 Protonix Inj IVP 40 mg DAILY KEV Administration Silver Sulfadiazine 0 ea 03/26/18 10:00 04/21/18 09:39 Silvadene 1% 20 Gm TOP 1 applic BID KEV Administration - Patient Studies Lab Studies: Lab Studies 04/21/18 04/21/18 04/21/18 Range/Units 05:47 05:47 05:40 WBC 1.6 L* (4.8-10.8) K/uL RBC 2.44 L (3.80-5.20) Mil/uL Hgb 6.6 L (11.0-16.0) g/dL Hct 20.6 L (34.0-47.0) % MCV 84.7 (81.0-99.0) fL MCH 27.2 (27.0-31.0) pg MCHC 32.1 L (33.0-37.0) g/dL RDW 24.5 H (11.5-14.5) % Plt Count 16 L* (130-400) K/uL MPV 10.5 (7.2-11.7) fL Neut % (Auto) 75.4 H (50.0-75.0) % Lymph % (Auto) 14.8 L (20.0-40.0) % [place] % (Auto) 7.9 (0.0-10.0) % Eos % (Auto) 1.2 (0.0-4.0) % Baso % (Auto) 0.7 (0.0-2.0) % Neut # (Auto) 1.2 L (1.8-7.0) K/uL Lymph # (Auto) 0.2 L (1.0-4.3) K/uL [place] # (Auto) 0.1 (0.0-0.8) K/uL Eos # (Auto) 0.0 (0.0-0.7) K/uL Baso # (Auto) 0.0 (0.0-0.2) K/uL Differential Comment Puncture Site L rad pCO2 30 L (35-45) mm/Hg pO2 98 (80-100) mm/Hg HCO3 22.3 (21-28) mmol/L ABG pH 7.44 (7.35-7.45) ABG Total CO2 21.3 L (22-28) mmol/L ABG O2 Saturation 99.1 H (95-98) % ABG Base Excess -3.4 L (-2.0-3.0) mmol/L ABG Hemoglobin 6.6 L (11.7-17.4) g/dL ABG Carboxyhemoglobin 2.3 H (0.5-1.5) % POC ABG HHb (Measured) 0.9 (0.0-5.0) % ABG Methemoglobin 1.3 (0.0-3.0) % Pawel Test Pos A-a O2 Difference 221.0 mm/Hg Respiratory Index 2.3 Hgb O2 Saturation 95.5 (95.0-98.0) % Vent Mode Prvc Mechanical Rate 18 FiO2 50.0 % Tidal Volume 470 Sodium 134 (132-148) mmol/L Potassium 4.0 (3.6-5.2) mmol/L Chloride 99 (98-107) mmol/L Carbon Dioxide 21 L (22-30) mmol/L Anion Gap 18 (10-20) BUN 78 H (7-17) mg/dL Creatinine 2.0 H (0.7-1.2) mg/dL Est GFR ( Amer) 29 Est GFR (Non-Af Amer) 24 POC Glucose (mg/dL) (65-110) mg/dL Random Glucose 100 D (65-105) mg/dL Calcium 7.9 L (8.6-10.4) mg/dl Phosphorus 3.3 (2.5-4.5) mg/dL Magnesium 1.9 (1.6-2.3) mg/dL Total Bilirubin 2.8 H (0.2-1.3) mg/dL AST 8 L D (14-36) U/L ALT 25 (9-52) U/L Alkaline Phosphatase 29 L (38-126) U/L Total Protein 4.6 L (6.3-8.3) g/dL Albumin 2.9 L D (3.5-5.0) g/dL Globulin 1.7 L (2.2-3.9) gm/dL Albumin/Globulin Ratio 1.7 (1.0-2.1) Heparin-induced Plt Ab (Negative) JENY UFH Low Dose 0.1 % Release JENY UFH Low Dose 0.5 % Release JENY UFH High Dose 100 % Release JENY Unfract Heparin (Negative) Hep-Induced Plt Ab [facility] 04/21/18 04/20/18 04/20/18 Range/Units 05:08 23:52 17:34 WBC (4.8-10.8) K/uL RBC (3.80-5.20) Mil/uL Hgb (11.0-16.0) g/dL Hct (34.0-47.0) % MCV (81.0-99.0) fL MCH (27.0-31.0) pg MCHC (33.0-37.0) g/dL RDW (11.5-14.5) % Plt Count (130-400) K/uL MPV (7.2-11.7) fL Neut % (Auto) (50.0-75.0) % Lymph % (Auto) (20.0-40.0) % [place] % (Auto) (0.0-10.0) % Eos % (Auto) (0.0-4.0) % Baso % (Auto) (0.0-2.0) % Neut # (Auto) (1.8-7.0) K/uL Lymph # (Auto) (1.0-4.3) K/uL [place] # (Auto) (0.0-0.8) K/uL Eos # (Auto) (0.0-0.7) K/uL Baso # (Auto) (0.0-0.2) K/uL Differential Comment Puncture Site pCO2 (35-45) mm/Hg pO2 (80-100) mm/Hg HCO3 (21-28) mmol/L ABG pH (7.35-7.45) ABG Total CO2 (22-28) mmol/L ABG O2 Saturation (95-98) % ABG Base Excess (-2.0-3.0) mmol/L ABG Hemoglobin (11.7-17.4) g/dL ABG Carboxyhemoglobin (0.5-1.5) % POC ABG HHb (Measured) (0.0-5.0) % ABG Methemoglobin (0.0-3.0) % Pawel Test A-a O2 Difference mm/Hg Respiratory Index Hgb O2 Saturation (95.0-98.0) % Vent Mode Mechanical Rate FiO2 % Tidal Volume Sodium (132-148) mmol/L Potassium (3.6-5.2) mmol/L Chloride (98-107) mmol/L Carbon Dioxide (22-30) mmol/L Anion Gap (10-20) BUN (7-17) mg/dL Creatinine (0.7-1.2) mg/dL Est GFR ( Amer) Est GFR (Non-Af Amer) POC Glucose (mg/dL) 118 H 119 H 140 H (65-110) mg/dL Random Glucose (65-105) mg/dL Calcium (8.6-10.4) mg/dl Phosphorus (2.5-4.5) mg/dL Magnesium (1.6-2.3) mg/dL Total Bilirubin (0.2-1.3) mg/dL AST (14-36) U/L ALT (9-52) U/L Alkaline Phosphatase (38-126) U/L Total Protein (6.3-8.3) g/dL Albumin (3.5-5.0) g/dL Globulin (2.2-3.9) gm/dL Albumin/Globulin Ratio (1.0-2.1) Heparin-induced Plt Ab (Negative) JENY UFH Low Dose 0.1 % Release JENY UFH Low Dose 0.5 % Release JENY UFH High Dose 100 % Release JENY Unfract Heparin (Negative) Hep-Induced Plt Ab Cmmt 04/20/18 04/18/18 04/18/18 Range/Units 11:46 11:35 11:35 WBC (4.8-10.8) K/uL RBC (3.80-5.20) Mil/uL Hgb (11.0-16.0) g/dL Hct (34.0-47.0) % MCV (81.0-99.0) fL MCH (27.0-31.0) pg MCHC (33.0-37.0) g/dL RDW (11.5-14.5) % Plt Count (130-400) K/uL MPV (7.2-11.7) fL Neut % (Auto) (50.0-75.0) % Lymph % (Auto) (20.0-40.0) % [place] % (Auto) (0.0-10.0) % Eos % (Auto) (0.0-4.0) % Baso % (Auto) (0.0-2.0) % Neut # (Auto) (1.8-7.0) K/uL Lymph # (Auto) (1.0-4.3) K/uL [place] # (Auto) (0.0-0.8) K/uL Eos # (Auto) (0.0-0.7) K/uL Baso # (Auto) (0.0-0.2) K/uL Differential Comment Puncture Site pCO2 (35-45) mm/Hg pO2 (80-100) mm/Hg HCO3 (21-28) mmol/L ABG pH (7.35-7.45) ABG Total CO2 (22-28) mmol/L ABG O2 Saturation (95-98) % ABG Base Excess (-2.0-3.0) mmol/L ABG Hemoglobin (11.7-17.4) g/dL ABG Carboxyhemoglobin (0.5-1.5) % POC ABG HHb (Measured) (0.0-5.0) % ABG Methemoglobin (0.0-3.0) % Pawel Test A-a O2 Difference mm/Hg Respiratory Index Hgb O2 Saturation (95.0-98.0) % Vent Mode Mechanical Rate FiO2 % Tidal Volume Sodium (132-148) mmol/L Potassium (3.6-5.2) mmol/L Chloride (98-107) mmol/L Carbon Dioxide (22-30) mmol/L Anion Gap (10-20) BUN (7-17) mg/dL Creatinine (0.7-1.2) mg/dL Est GFR ( Amer) Est GFR (Non-Af Amer) POC Glucose (mg/dL) 121 H (65-110) mg/dL Random Glucose (65-105) mg/dL Calcium (8.6-10.4) mg/dl Phosphorus (2.5-4.5) mg/dL Magnesium (1.6-2.3) mg/dL Total Bilirubin (0.2-1.3) mg/dL AST (14-36) U/L ALT (9-52) U/L Alkaline Phosphatase (38-126) U/L Total Protein (6.3-8.3) g/dL Albumin (3.5-5.0) g/dL Globulin (2.2-3.9) gm/dL Albumin/Globulin Ratio (1.0-2.1) Heparin-induced Plt Ab Negative Negative (Negative) JENY UFH Low Dose 0.1 0 % Release JENY UFH Low Dose 0.5 0 % Release JENY UFH High Dose 100 0 % Release JENY Unfract Heparin Negative (Negative) Hep-Induced Plt Ab Cmmt 0.117 Laboratory Results - last 24 hr 04/18/18 04/18/18 04/20/18 11:35 11:35 11:46 WBC RBC Hgb Hct MCV MCH MCHC RDW Plt Count MPV Neut % (Auto) Lymph % (Auto) [place] % (Auto) Eos % (Auto) Baso % (Auto) Neut # (Auto) Lymph # (Auto) [place] # (Auto) Eos # (Auto) Baso # (Auto) Differential Comment Puncture Site pCO2 pO2 HCO3 ABG pH ABG Total CO2 ABG O2 Saturation ABG Base Excess ABG Hemoglobin ABG Carboxyhemoglobin POC ABG HHb (Measured) ABG Methemoglobin Pawel Test A-a O2 Difference Respiratory Index Hgb O2 Saturation Vent Mode Mechanical Rate FiO2 Tidal Volume Sodium Potassium Chloride Carbon Dioxide Anion Gap BUN Creatinine Est GFR ( Amer) Est GFR (Non-Af Amer) POC Glucose (mg/dL) 121 H Random Glucose Calcium Phosphorus Magnesium Total Bilirubin AST ALT Alkaline Phosphatase Total Protein Albumin Globulin Albumin/Globulin Ratio Heparin-induced Plt Ab Negative Negative JENY UFH Low Dose 0.1 0 JENY UFH Low Dose 0.5 0 JENY UFH High Dose 100 0 JENY Unfract Heparin Negative Hep-Induced Plt Ab Cmmt 0.117 04/20/18 04/20/18 04/21/18 17:34 23:52 05:08 WBC RBC Hgb Hct MCV MCH MCHC RDW Plt Count MPV Neut % (Auto) Lymph % (Auto) [place] % (Auto) Eos % (Auto) Baso % (Auto) Neut # (Auto) Lymph # (Auto) [place] # (Auto) Eos # (Auto) Baso # (Auto) Differential Comment Puncture Site pCO2 pO2 HCO3 ABG pH ABG Total CO2 ABG O2 Saturation ABG Base Excess ABG Hemoglobin ABG Carboxyhemoglobin POC ABG HHb (Measured) ABG Methemoglobin Pawel Test A-a O2 Difference Respiratory Index Hgb O2 Saturation Vent Mode Mechanical Rate FiO2 Tidal Volume Sodium Potassium Chloride Carbon Dioxide Anion Gap BUN Creatinine Est GFR ( Amer) Est GFR (Non-Af Amer) POC Glucose (mg/dL) 140 H 119 H 118 H Random Glucose Calcium Phosphorus Magnesium Total Bilirubin AST ALT Alkaline Phosphatase Total Protein Albumin Globulin Albumin/Globulin Ratio Heparin-induced Plt Ab JENY UFH Low Dose 0.1 JENY UFH Low Dose 0.5 JENY UFH High Dose 100 JENY Unfract Heparin Hep-Induced Plt Ab Cmmt 04/21/18 04/21/18 04/21/18 05:40 05:47 05:47 WBC 1.6 L* RBC 2.44 L Hgb 6.6 L Hct 20.6 L MCV 84.7 MCH 27.2 MCHC 32.1 L RDW 24.5 H Plt Count 16 L* MPV 10.5 Neut % (Auto) 75.4 H Lymph % (Auto) 14.8 L [place] % (Auto) 7.9 Eos % (Auto) 1.2 Baso % (Auto) 0.7 Neut # (Auto) 1.2 L Lymph # (Auto) 0.2 L [place] # (Auto) 0.1 Eos # (Auto) 0.0 Baso # (Auto) 0.0 Differential Comment Puncture Site L rad pCO2 30 L pO2 98 HCO3 22.3 ABG pH 7.44 ABG Total CO2 21.3 L ABG O2 Saturation 99.1 H ABG Base Excess -3.4 L ABG Hemoglobin 6.6 L ABG Carboxyhemoglobin 2.3 H POC ABG HHb (Measured) 0.9 ABG Methemoglobin 1.3 Pawel Test Pos A-a O2 Difference 221.0 Respiratory Index 2.3 Hgb O2 Saturation 95.5 Vent Mode Prvc Mechanical Rate 18 FiO2 50.0 Tidal Volume 470 Sodium 134 Potassium 4.0 Chloride 99 Carbon Dioxide 21 L Anion Gap 18 BUN 78 H Creatinine 2.0 H Est GFR ( Amer) 29 Est GFR (Non-Af Amer) 24 POC Glucose (mg/dL) Random Glucose 100 D Calcium 7.9 L Phosphorus 3.3 Magnesium 1.9 Total Bilirubin 2.8 H AST 8 L D ALT 25 Alkaline Phosphatase 29 L Total Protein 4.6 L Albumin 2.9 L D Globulin 1.7 L Albumin/Globulin Ratio 1.7 Heparin-induced Plt Ab JENY UFH Low Dose 0.1 JENY UFH Low Dose 0.5 JENY UFH High Dose 100 JENY Unfract Heparin Hep-Induced Plt Ab Cmmt Fingerstick Blood Sugar Results: 118 Review of Systems - Review of Systems Systems not reviewed;Unavailable: Acuity of Condition Critical Care Progress Note - Ventilator Checklist Head of Bed 30 Degrees: Yes PUD Prophalyxis: Yes DVT Prophylaxis: Yes - Vent Settings MODE:: PRVC TIDAL VOLUME:: 470 RESP RATE:: 18 FIO2:: 50 PEEP:: 0 - Prophylaxis GI Prophylaxis GI: PPI - Prophylaxis DVT Prophylaxis DVT: Not Indicated - Nutrition Nutrition: Nutrition Category Date Time Status NPO Diet [DIET] Diets 04/15/18 Breakfast Active Assessment/Plan - Assessment and Plan (Free Text) Plan: Patient is a 82 yo female w/ PMH of CHF, HTN, Afib on AC admitted for bilateral pleural effusions and pneumonia.Patient has recurrent pleural effusions s/p thoracentesis and chest tube placement. Patient on CT abd/pelvis showed perforation with free air. Poor surgical candidate. Awaiting family decision on goals of care for patient. Neuro Sedated on propofol Pulm on PRVC ventilation Duoneb Q6 PRN CV chest xray - possible worsening fluid overload - pending official result Levophed Vasopressin GI NPO diet poor surgical candidate due to comorbidities Heme Platelets 16 today Repeat CBC, CMP in am Endo Q6h accucheck ISS Derm Bacitracin/Nystatin Continue wound care as per wound care/podiatry SCDS contraindicated ID continue abx Fluconazole (started on 03/27) Cefepime (started on 04/01) Flagyl (started 04/16) Nystatin (started on 03/23) DVT ppx: SCDs, anticoag C/I due to thrombocytopenia GI ppx: Protonix IV Dilaudid 0.5mg IVP, tylenol 650mg PRN Disposition: continue medical management as per ICU; no surgical intervention. DNR active. Will follow up with daughter and family on patient's goals of care. Plan discussed with Dr Perry Gary, PGY-1 - Date & Time Date: 04/21/18 Time: 13:00 <Zaheer Amador S - Last Filed: 04/21/18 15:32> CCU Objective - Vital Signs / Intake & Output Vital Signs (Last 4 hours): Vital Signs Temp Pulse Resp BP Pulse Ox 04/21/18 15:01 103 H 20 04/21/18 15:00 89 19 109/64 96 04/21/18 14:01 92/58 L 04/21/18 14:00 91 H 18 102/65 97 04/21/18 13:02 94 H 23 04/21/18 13:00 94 H 21 79/43 L 98 04/21/18 12:00 98.8 F 93 H 19 94/69 L 96 Intake and Output (Last 8hrs): Intake & Output 04/21/18 04/21/18 04/21/18 06:59 14:59 22:59 Intake Total 875.6 805.6 5 Output Total 100 Balance 775.6 805.6 5 Weight 225 lb 4.8 oz Intake: IV 40 20 Intake, IV Amount 835.6 785.6 5 Left Distal Port Internal 250 5 Jugular Left Medial Port Internal 26 26 Jugular Left Proximal Port 9.6 9.6 Left Proximal Port 550 750 Internal Jugular Output: Urine 100 Urethral ([place]) 100 Other: # Bowel Movements 1 - Medications Active Medications: Active Medications Generic Name Dose Route Start Last Admin Trade Name Freq PRN Reason Stop Dose Admin Morphine Sulfate 250 mg/ 250 mls @ 5 mls/hr 04/21/18 14:27 04/21/18 14:49 Sodium Chloride IV 5 mls/hr .Q24H PRN 5 mls/hr comfort measure Administration Protocol Silver Sulfadiazine 0 ea 03/26/18 10:00 04/21/18 09:39 Silvadene 1% 20 Gm TOP 1 applic BID KEV Administration - Patient Studies Lab Studies: Lab Studies 04/21/18 04/21/18 04/21/18 Range/Units 11:51 05:47 05:47 WBC 1.6 L* (4.8-10.8) K/uL RBC 2.44 L (3.80-5.20) Mil/uL Hgb 6.6 L (11.0-16.0) g/dL Hct 20.6 L (34.0-47.0) % MCV 84.7 (81.0-99.0) fL MCH 27.2 (27.0-31.0) pg MCHC 32.1 L (33.0-37.0) g/dL RDW 24.5 H (11.5-14.5) % Plt Count 16 L* (130-400) K/uL MPV 10.5 (7.2-11.7) fL Neut % (Auto) 75.4 H (50.0-75.0) % Lymph % (Auto) 14.8 L (20.0-40.0) % [place] % (Auto) 7.9 (0.0-10.0) % Eos % (Auto) 1.2 (0.0-4.0) % Baso % (Auto) 0.7 (0.0-2.0) % Neut # (Auto) 1.2 L (1.8-7.0) K/uL Lymph # (Auto) 0.2 L (1.0-4.3) K/uL [place] # (Auto) 0.1 (0.0-0.8) K/uL Eos # (Auto) 0.0 (0.0-0.7) K/uL Baso # (Auto) 0.0 (0.0-0.2) K/uL Differential Comment Puncture Site pCO2 (35-45) mm/Hg pO2 (80-100) mm/Hg HCO3 (21-28) mmol/L ABG pH (7.35-7.45) ABG Total CO2 (22-28) mmol/L ABG O2 Saturation (95-98) % ABG Base Excess (-2.0-3.0) mmol/L ABG Hemoglobin (11.7-17.4) g/dL ABG Carboxyhemoglobin (0.5-1.5) % POC ABG HHb (Measured) (0.0-5.0) % ABG Methemoglobin (0.0-3.0) % Pawel Test A-a O2 Difference mm/Hg Respiratory Index Hgb O2 Saturation (95.0-98.0) % Vent Mode Mechanical Rate FiO2 % Tidal Volume Sodium 134 (132-148) mmol/L Potassium 4.0 (3.6-5.2) mmol/L Chloride 99 (98-107) mmol/L Carbon Dioxide 21 L (22-30) mmol/L Anion Gap 18 (10-20) BUN 78 H (7-17) mg/dL Creatinine 2.0 H (0.7-1.2) mg/dL Est GFR ( Amer) 29 Est GFR (Non-Af Amer) 24 POC Glucose (mg/dL) 127 H (65-110) mg/dL Random Glucose 100 D (65-105) mg/dL Calcium 7.9 L (8.6-10.4) mg/dl Phosphorus 3.3 (2.5-4.5) mg/dL Magnesium 1.9 (1.6-2.3) mg/dL Total Bilirubin 2.8 H (0.2-1.3) mg/dL AST 8 L D (14-36) U/L ALT 25 (9-52) U/L Alkaline Phosphatase 29 L (38-126) U/L Total Protein 4.6 L (6.3-8.3) g/dL Albumin 2.9 L D (3.5-5.0) g/dL Globulin 1.7 L (2.2-3.9) gm/dL Albumin/Globulin Ratio 1.7 (1.0-2.1) Heparin-induced Plt Ab (Negative) JENY UFH Low Dose 0.1 % Release JENY UFH Low Dose 0.5 % Release JENY UFH High Dose 100 % Release JENY Unfract Heparin (Negative) 04/21/18 04/21/18 04/20/18 Range/Units 05:40 05:08 23:52 WBC (4.8-10.8) K/uL RBC (3.80-5.20) Mil/uL Hgb (11.0-16.0) g/dL Hct (34.0-47.0) % MCV (81.0-99.0) fL MCH (27.0-31.0) pg MCHC (33.0-37.0) g/dL RDW (11.5-14.5) % Plt Count (130-400) K/uL MPV (7.2-11.7) fL Neut % (Auto) (50.0-75.0) % Lymph % (Auto) (20.0-40.0) % [place] % (Auto) (0.0-10.0) % Eos % (Auto) (0.0-4.0) % Baso % (Auto) (0.0-2.0) % Neut # (Auto) (1.8-7.0) K/uL Lymph # (Auto) (1.0-4.3) K/uL [place] # (Auto) (0.0-0.8) K/uL Eos # (Auto) (0.0-0.7) K/uL Baso # (Auto) (0.0-0.2) K/uL Differential Comment Puncture Site L rad pCO2 30 L (35-45) mm/Hg pO2 98 (80-100) mm/Hg HCO3 22.3 (21-28) mmol/L ABG pH 7.44 (7.35-7.45) ABG Total CO2 21.3 L (22-28) mmol/L ABG O2 Saturation 99.1 H (95-98) % ABG Base Excess -3.4 L (-2.0-3.0) mmol/L ABG Hemoglobin 6.6 L (11.7-17.4) g/dL ABG Carboxyhemoglobin 2.3 H (0.5-1.5) % POC ABG HHb (Measured) 0.9 (0.0-5.0) % ABG Methemoglobin 1.3 (0.0-3.0) % Pawel Test Pos A-a O2 Difference 221.0 mm/Hg Respiratory Index 2.3 Hgb O2 Saturation 95.5 (95.0-98.0) % Vent Mode Prvc Mechanical Rate 18 FiO2 50.0 % Tidal Volume 470 Sodium (132-148) mmol/L Potassium (3.6-5.2) mmol/L Chloride (98-107) mmol/L Carbon Dioxide (22-30) mmol/L Anion Gap (10-20) BUN (7-17) mg/dL Creatinine (0.7-1.2) mg/dL Est GFR ( Amer) Est GFR (Non-Af Amer) POC Glucose (mg/dL) 118 H 119 H (65-110) mg/dL Random Glucose (65-105) mg/dL Calcium (8.6-10.4) mg/dl Phosphorus (2.5-4.5) mg/dL Magnesium (1.6-2.3) mg/dL Total Bilirubin (0.2-1.3) mg/dL AST (14-36) U/L ALT (9-52) U/L Alkaline Phosphatase (38-126) U/L Total Protein (6.3-8.3) g/dL Albumin (3.5-5.0) g/dL Globulin (2.2-3.9) gm/dL Albumin/Globulin Ratio (1.0-2.1) Heparin-induced Plt Ab (Negative) JENY UFH Low Dose 0.1 % Release JENY UFH Low Dose 0.5 % Release JENY UFH High Dose 100 % Release JENY Unfract Heparin (Negative) 04/20/18 04/18/18 04/18/18 Range/Units 17:34 11:35 11:35 WBC (4.8-10.8) K/uL RBC (3.80-5.20) Mil/uL Hgb (11.0-16.0) g/dL Hct (34.0-47.0) % MCV (81.0-99.0) fL MCH (27.0-31.0) pg MCHC (33.0-37.0) g/dL RDW (11.5-14.5) % Plt Count (130-400) K/uL MPV (7.2-11.7) fL Neut % (Auto) (50.0-75.0) % Lymph % (Auto) (20.0-40.0) % [place] % (Auto) (0.0-10.0) % Eos % (Auto) (0.0-4.0) % Baso % (Auto) (0.0-2.0) % Neut # (Auto) (1.8-7.0) K/uL Lymph # (Auto) (1.0-4.3) K/uL [place] # (Auto) (0.0-0.8) K/uL Eos # (Auto) (0.0-0.7) K/uL Baso # (Auto) (0.0-0.2) K/uL Differential Comment Puncture Site pCO2 (35-45) mm/Hg pO2 (80-100) mm/Hg HCO3 (21-28) mmol/L ABG pH (7.35-7.45) ABG Total CO2 (22-28) mmol/L ABG O2 Saturation (95-98) % ABG Base Excess (-2.0-3.0) mmol/L ABG Hemoglobin (11.7-17.4) g/dL ABG Carboxyhemoglobin (0.5-1.5) % POC ABG HHb (Measured) (0.0-5.0) % ABG Methemoglobin (0.0-3.0) % Pawel Test A-a O2 Difference mm/Hg Respiratory Index Hgb O2 Saturation (95.0-98.0) % Vent Mode Mechanical Rate FiO2 % Tidal Volume Sodium (132-148) mmol/L Potassium (3.6-5.2) mmol/L Chloride (98-107) mmol/L Carbon Dioxide (22-30) mmol/L Anion Gap (10-20) BUN (7-17) mg/dL Creatinine (0.7-1.2) mg/dL Est GFR ( Amer) Est GFR (Non-Af Amer) POC Glucose (mg/dL) 140 H (65-110) mg/dL Random Glucose (65-105) mg/dL Calcium (8.6-10.4) mg/dl Phosphorus (2.5-4.5) mg/dL Magnesium (1.6-2.3) mg/dL Total Bilirubin (0.2-1.3) mg/dL AST (14-36) U/L ALT (9-52) U/L Alkaline Phosphatase (38-126) U/L Total Protein (6.3-8.3) g/dL Albumin (3.5-5.0) g/dL Globulin (2.2-3.9) gm/dL Albumin/Globulin Ratio (1.0-2.1) Heparin-induced Plt Ab Negative (Negative) JENY UFH Low Dose 0.1 0 % Release JENY UFH Low Dose 0.5 0 % Release JENY UFH High Dose 100 0 % Release JENY Unfract Heparin Negative (Negative) Laboratory Results - last 24 hr 04/18/18 04/18/18 04/20/18 11:35 11:35 17:34 WBC RBC Hgb Hct MCV MCH MCHC RDW Plt Count MPV Neut % (Auto) Lymph % (Auto) [place] % (Auto) Eos % (Auto) Baso % (Auto) Neut # (Auto) Lymph # (Auto) [place] # (Auto) Eos # (Auto) Baso # (Auto) Differential Comment Puncture Site pCO2 pO2 HCO3 ABG pH ABG Total CO2 ABG O2 Saturation ABG Base Excess ABG Hemoglobin ABG Carboxyhemoglobin POC ABG HHb (Measured) ABG Methemoglobin Pawel Test A-a O2 Difference Respiratory Index Hgb O2 Saturation Vent Mode Mechanical Rate FiO2 Tidal Volume Sodium Potassium Chloride Carbon Dioxide Anion Gap BUN Creatinine Est GFR ( Amer) Est GFR (Non-Af Amer) POC Glucose (mg/dL) 140 H Random Glucose Calcium Phosphorus Magnesium Total Bilirubin AST ALT Alkaline Phosphatase Total Protein Albumin Globulin Albumin/Globulin Ratio Heparin-induced Plt Ab Negative JENY UFH Low Dose 0.1 0 JENY UFH Low Dose 0.5 0 JENY UFH High Dose 100 0 JENY Unfract Heparin Negative 04/20/18 04/21/18 04/21/18 23:52 05:08 05:40 WBC RBC Hgb Hct MCV MCH MCHC RDW Plt Count MPV Neut % (Auto) Lymph % (Auto) [place] % (Auto) Eos % (Auto) Baso % (Auto) Neut # (Auto) Lymph # (Auto) [place] # (Auto) Eos # (Auto) Baso # (Auto) Differential Comment Puncture Site L rad pCO2 30 L pO2 98 HCO3 22.3 ABG pH 7.44 ABG Total CO2 21.3 L ABG O2 Saturation 99.1 H ABG Base Excess -3.4 L ABG Hemoglobin 6.6 L ABG Carboxyhemoglobin 2.3 H POC ABG HHb (Measured) 0.9 ABG Methemoglobin 1.3 Pawel Test Pos A-a O2 Difference 221.0 Respiratory Index 2.3 Hgb O2 Saturation 95.5 Vent Mode Prvc Mechanical Rate 18 FiO2 50.0 Tidal Volume 470 Sodium Potassium Chloride Carbon Dioxide Anion Gap BUN Creatinine Est GFR ( Amer) Est GFR (Non-Af Amer) POC Glucose (mg/dL) 119 H 118 H Random Glucose Calcium Phosphorus Magnesium Total Bilirubin AST ALT Alkaline Phosphatase Total Protein Albumin Globulin Albumin/Globulin Ratio Heparin-induced Plt Ab JENY UFH Low Dose 0.1 JENY UFH Low Dose 0.5 JENY UFH High Dose 100 JENY Unfract Heparin 04/21/18 04/21/18 04/21/18 05:47 05:47 11:51 WBC 1.6 L* RBC 2.44 L Hgb 6.6 L Hct 20.6 L MCV 84.7 MCH 27.2 MCHC 32.1 L RDW 24.5 H Plt Count 16 L* MPV 10.5 Neut % (Auto) 75.4 H Lymph % (Auto) 14.8 L [place] % (Auto) 7.9 Eos % (Auto) 1.2 Baso % (Auto) 0.7 Neut # (Auto) 1.2 L Lymph # (Auto) 0.2 L [place] # (Auto) 0.1 Eos # (Auto) 0.0 Baso # (Auto) 0.0 Differential Comment Puncture Site pCO2 pO2 HCO3 ABG pH ABG Total CO2 ABG O2 Saturation ABG Base Excess ABG Hemoglobin ABG Carboxyhemoglobin POC ABG HHb (Measured) ABG Methemoglobin Pawel Test A-a O2 Difference Respiratory Index Hgb O2 Saturation Vent Mode Mechanical Rate FiO2 Tidal Volume Sodium 134 Potassium 4.0 Chloride 99 Carbon Dioxide 21 L Anion Gap 18 BUN 78 H Creatinine 2.0 H Est GFR ( Amer) 29 Est GFR (Non-Af Amer) 24 POC Glucose (mg/dL) 127 H Random Glucose 100 D Calcium 7.9 L Phosphorus 3.3 Magnesium 1.9 Total Bilirubin 2.8 H AST 8 L D ALT 25 Alkaline Phosphatase 29 L Total Protein 4.6 L Albumin 2.9 L D Globulin 1.7 L Albumin/Globulin Ratio 1.7 Heparin-induced Plt Ab JENY UFH Low Dose 0.1 JENY UFH Low Dose 0.5 JENY UFH High Dose 100 JENY Unfract Heparin Radiology Impressions: Radiology Impressions Chest X-Ray 04/21/18 07:04 IMPRESSION: Increasing left-sided airspace disease with no interval change in mid to inferior right-sided infiltrates/atelectasis which remain greater than the left side. Developing pulmonary vascular congestion is suspected. Underlying pleural effusions likely remain greater the right than left sides. Critical Care Progress Note - Nutrition Nutrition: Nutrition Category Date Time Status NPO Diet [DIET] Diets 04/15/18 Breakfast Active Assessment/Plan (1) Acute respiratory failure Current Visit: No Status: Acute (2) Atrial fibrillation and flutter Current Visit: No Status: Acute (3) CHF (congestive heart failure) Current Visit: No Status: Acute (4) Pleural effusion Current Visit: Yes Status: Acute Attending/Attestation - Attestation I have personally seen and examined this patient.: Yes I have fully participated in the care of the patient.: Yes I have reviewed all pertinent clinical information: Yes Notes (Text): 04/21/18 15:31 Patient seen and examined in the intensive care unit. Patient terminally extubated as per family's request and started on morphine drip
--- NOTE | 2018-04-21 11:12 | RAD ---
Date of service: 04/21/2018 HISTORY: vented COMPARISON: Portable chest 04/20/2018 FINDINGS: LUNGS: Endotracheal and nasogastric tubes do not appear simply changed in position as well as left central venous line. Midline PICC at right arm not captured. Left pleural drainage catheter stable in position. Persistent opacification of the mid to inferior right lung zone as well as left base with mild increase patchy density now identified at the mid left pulmonary region. Lateral infiltrates appear increased at the left and unchanged at the right with probable underlying atelectasis present as well. Underlying bilateral pleural effusions likely remain greater the right than left. No pneumothorax bilaterally. CARDIOVASCULAR: Calcific atherosclerotic changes are seen related to the thoracic aorta. Cardiac silhouette partially obscured at the right. Pulmonary vascular congestion felt to be developing. No pulmonary vascular congestion. OSSEOUS STRUCTURES: No significant abnormalities. VISUALIZED UPPER ABDOMEN: Normal. OTHER FINDINGS: None. IMPRESSION: Increasing left-sided airspace disease with no interval change in mid to inferior right-sided infiltrates/atelectasis which remain greater than the left side. Developing pulmonary vascular congestion is suspected. Underlying pleural effusions likely remain greater the right than left sides.
--- NOTE | 2018-04-21 11:24 | CP.PCM.PN ---
Subjective - Date & Time of Evaluation Date of Evaluation: 04/21/18 Time of Evaluation: 11:21 - Subjective Subjective: pt seen and examined and discused with daughter she is waiting for cousion to come then d/c ventilator Objective - Vital Signs/Intake and Output Vital Signs (last 24 hours): Temp Pulse Resp BP Pulse Ox 98.2 F 84 20 84/57 L 98 04/21/18 08:00 04/21/18 10:01 04/21/18 10:01 04/21/18 10:00 04/21/18 10:00 Intake and Output: 04/21/18 04/21/18 06:59 18:59 Intake Total 1244.4 420.8 Output Total 100 Balance 1144.4 420.8 - Medications Medications: Current Medications Acetaminophen (Tylenol 325mg Tab) 650 mg PO Q6 PRN PRN Reason: Fever >100.4 F Last Admin: 04/02/18 04:36 Dose: 650 mg Albuterol/Ipratropium (Duoneb 3 Mg/0.5 Mg (3 Ml) Ud) 3 ml INH RQ6 KEV Last Admin: 04/21/18 08:00 Dose: 3 ml Bacitracin (Bacitracin) 0 gm TOP BID KEV Last Admin: 04/21/18 09:40 Dose: 1 applic Hydromorphone HCl (Dilaudid) 0.5 mg IVP Q6H PRN PRN Reason: Pain, moderate (4-7) Fluconazole (Diflucan Iv 100 Mg/50 Ml Ns) 50 mls @ 100 mls/hr IVPB DAILY KEV; Protocol Last Admin: 04/21/18 10:10 Dose: 100 mls/hr Norepinephrine Bitartrate 4 mg (/ Dextrose) 254 mls @ 15.24 mls/hr IV .[id number] PRN; Protocol PRN Reason: TITRATE PER MD ORDER Last Titration: 04/19/18 04:00 Dose: 0 mcg/min, 0 mls/hr Metronidazole (Flagyl) 500 mg in 100 mls @ 100 mls/hr IVPB Q8H KEV; Protocol Last Admin: 04/21/18 10:10 Dose: 100 mls/hr Cefepime HCl (Maxipime Iv 1 Gm Premix) 1 gm in 50 mls @ 100 mls/hr IVPB Q12H KEV; Protocol Last Admin: 04/21/18 05:15 Dose: 100 mls/hr Propofol (Diprivan) 1,000 mg in 100 mls @ 3.001 mls/hr IV .Q24H PRN; Protocol PRN Reason: TITRATE PER MD ORDER Last Titration: 04/21/18 06:00 Dose: 6.66 mcg/kg/min, 4 mls/hr Vasopressin 40 units/ Dextrose 42 mls @ 1.26 mls/hr IV .Q24H [facility] Last Admin: 04/20/18 10:25 Dose: Not Given Insulin Aspart (Novolog) 0 unit SC Q6 [facility]; Protocol Last Admin: 04/21/18 05:18 Dose: Not Given Nystatin (Nystop Topical Powder) 1 applic TOP BID [facility] Last Admin: 04/21/18 09:40 Dose: 1 applic Pantoprazole Sodium (Protonix Inj) 40 mg IVP DAILY [facility] Last Admin: 04/21/18 10:26 Dose: 40 mg Silver Sulfadiazine (Silvadene 1% 20 Gm) 0 ea TOP BID [facility] Last Admin: 04/21/18 09:39 Dose: 1 applic - Labs Labs: 04/21/18 05:47 04/21/18 05:47 PT 23.5 SECONDS (9.7-12.2) H 04/20/18 06:32 INR 2.1 04/20/18 06:32 APTT 52 SECONDS (21-34) H D 04/20/18 06:32 - Constitutional Appears: In Acute Distress - Head Exam Head Exam: ATRAUMATIC - Eye Exam Eye Exam: Conjunctival injection - Neck Exam Neck Exam: Full ROM - Respiratory Exam Respiratory Exam: Decreased Breath Sounds, Rales - Cardiovascular Exam Cardiovascular Exam: Tachycardia - GI/Abdominal Exam GI & Abdominal Exam: Hypoactive Bowel Sounds - Extremities Exam Extremities Exam: Pedal Edema - Neurological Exam Additional comments: unresponsive - Skin Skin Exam: Pallor Assessment and Plan - Assessment and Plan (Free Text) Assessment: multiorgan failiure Plan: as per orders
[2018-04-21] MEDS: Propofol 10 mg/ml 1,000 MG/100 ML VIAL IV PRN (11:33)
[2018-04-21] MEDS: Vasopressin 40 UNITS in Dextrose 5% In Water 40 ML IV SCH (11:44)
[2018-04-21 17:27] VITALS: O2SAT 97
[2018-04-21 19:40] VITALS: RESP 11
[2018-04-21 20:16] VITALS: TEMP 97
[2018-04-21 21:40] VITALS: BP 63/30; PULSE 47
--- NOTE | 2018-04-21 22:24 | CP.PCM.PRO ---
Pronouncement of Note - Clinical Findings Physical Exam: No Response Verbal/Painful Stimuli, Absent Peripheral Puls es{Carotid & Femoral}, Absent Heart & Breath Sounds, No Pupillary Light Reflex, No Corneal Reflex, Pupils Fixed & Dilated, Absence of Vital Signs - Pronouncement Time Time of Pronouncement of : 22:30 - Notifications Pronouncement Notifications: Family Notified, Atending Notified Automobile Damage Field Appraiser Notified: No - Autopsy Autopsy Requested: No - [place] [id number]
--- NOTE | 2018-04-29 06:20 | DS ---
SUMMARY HISTORY OF PRESENT ILLNESS AND HOSPITAL COURSE: The patient came in from senior living to the emergency room for increased respiratory distress and she was put on BiPAP, and she became lethargic. When she came to the emergency room, she was intubated and sedated and went to ICU. She had also x-rays, which showed pleural effusion. She was seen by Dr. Isdiro for congestive heart failure and she was seen by Dr. Amador for the pleural effusion. She was put on her medications, nebulizer, amiodarone, Eliquis, heparin subcutaneously, piperacillin antibiotic, sodium bicarbonate, vancomycin, dexamethasone, norepinephrine, lorazepam, pantoprazole, spironolactone, and verapamil. She continued to be on the machine and she did have a chest tube inserted to the left side, it was draining lot of fluids and the chest tube inserted was left because it was draining to the end. She continued to be sedated on the machine and she was not improving. Her blood pressure was, kind of, low. She had supportive treatment. She was unable to obtain any because of her sedation. Her daughter was always by bedside. Noted to have very poor blood work. Her white count is down. Her hemoglobin is down, 6.6. Her chemistry showed renal failure. Her diabetes was okay. She had also liver enzymes high, so, the patient was not progressing good and she had multiorgan failure and the family decided to terminate her life. So, the tube was taken out and the patient pronounced by the workforce advisor at the time she , which was . She was pronounced on 04/21/2018. FINAL DIAGNOSES: Severe congestive heart failure, pleural effusion, chest tube drainage, severe anemia, pancytopenia, obesity, diabetes, and multiorgan failure. Robyn Brewer MD
== END 2018-04-22 00:15 | DRG 870 ==
LOC: C.ER 08:06 → C.9E 11:00 → C.6T 13:51 → C.9E 14:46 → C.9I 14:49
PROVIDERS: ADMIT Internal Medicine; ATTEND Internal Medicine
PROC: 5A09357 Assistance with Respiratory Ventilation, Less than 24 Consecutive Hours, Continuous Positive Airway Pressure (ICD-10-PCS; principal; 2018-03-23)
PROC: 5A1955Z Respiratory Ventilation, Greater than 96 Consecutive Hours (ICD-10-PCS; 2018-03-23)
PROC: 0BH18EZ Insertion of Endotracheal Airway into Trachea, Via Natural or Artificial Opening Endoscopic (ICD-10-PCS; 2018-03-23)
PROC: B24BZZ4 Ultrasonography of Heart with Aorta, Transesophageal (ICD-10-PCS; 2018-03-23)
PROC: 3E033XZ Introduction of Vasopressor into Peripheral Vein, Percutaneous Approach (ICD-10-PCS; 2018-03-23)
PROC: 02HV33Z Insertion of Infusion Device into Superior Vena Cava, Percutaneous Approach (ICD-10-PCS; 2018-03-24)
PROC: 30233K1 Transfusion of Nonautologous Frozen Plasma into Peripheral Vein, Percutaneous Approach (ICD-10-PCS; 2018-03-26)
PROC: 0W9B30Z Drainage of Left Pleural Cavity with Drainage Device, Percutaneous Approach (ICD-10-PCS; 2018-03-31)
PROC: 0HBMXZZ Excision of Right Foot Skin, External Approach (ICD-10-PCS; 2018-04-09)
PROC: 02HV33Z Insertion of Infusion Device into Superior Vena Cava, Percutaneous Approach (ICD-10-PCS; 2018-04-13)
PROC: 6A551Z2 Pheresis of Platelets, Multiple (ICD-10-PCS; 2018-04-16)
DX: A41.9 Sepsis, unspecified organism (principal); L89.153 Pressure ulcer of sacral region, stage 3; J18.9 Pneumonia, unspecified organism; E43 Unspecified severe protein-calorie malnutrition; J96.01 Acute respiratory failure with hypoxia; I50.33 Acute on chronic diastolic (congestive) heart failure; R65.21 Severe sepsis with septic shock; I48.92 Unspecified atrial flutter; E87.1 Hypo-osmolality and hyponatremia; J98.11 Atelectasis; N17.9 Acute kidney failure, unspecified; I11.0 Hypertensive heart disease with heart failure; I48.91 Unspecified atrial fibrillation; D69.59 Other secondary thrombocytopenia; L89.610 Pressure ulcer of right heel, unstageable; J44.9 Chronic obstructive pulmonary disease, unspecified; F03.90 Unspecified dementia, unspecified severity, without behavioral disturbance, psychotic disturbance, mood disturbance, and anxiety; I87.8 Other specified disorders of veins; I27.20 Pulmonary hypertension, unspecified; I27.81 Cor pulmonale (chronic); Z51.5 Encounter for palliative care; Z66 Do not resuscitate